=== PATIENT | male | born 1945 | race Caucasian/White ===

== ENCOUNTER 2018-02-05 15:05 | Inpatient (IN) | payer MEDICARE, OTHER, SELFPAY ==
[2018-02-05] VITALS (16 sets, daily range): BP systolic 90–150; BP diastolic 39–108; PULSE 64–143; RESP 12–23; TEMP 36.3–36.9; O2SAT 94–100; BMI 41.9; BMI 43.1
[2018-02-05] MEDS: SODIUM CHLORIDE 0.9% 1,000 ML 1000 ML IV (15:36)
--- NOTE | 2018-02-05 15:37 | DI.RAD.S_ITS ---
PROCEDURE: XR CHEST 1V INDICATIONS: chest pain TECHNIQUE: One view of the chest was acquired. COMPARISON: None. FINDINGS: Surgical changes and devices: None. Lungs and pleura: No pleural effusions or pneumothorax. Lungs are clear. Mediastinum: Mediastinal contours appear normal. Heart size is normal. Bones and chest wall: No suspicious bony lesions. Overlying soft tissues appear unremarkable. IMPRESSION: No acute cardiopulmonary disease. Dictated by: Sammie Coronado M.D. on 02/05/2018 at 15:56 Approved by: Sammie Coronado M.D. on 02/05/2018 at 15:56
[2018-02-05 15:51] LABS: Add Manual Diff / Slide Review NO; Basophils Percent Auto 0.8 % (0-2); Eosinophils Percent Auto 2.7 % (2-4); Hematocrit 45.7 % (41-53); Hemoglobin 15.4 g/dL (13.5-17.5); INR 1.1 (0.9-1.3); Lymphocytes Percent Auto 22.8 % (25-40); Mean Corpuscular HGB Conc 33.7 % (30-36); Mean Corpuscular Hemoglobin 32.3 PG (26-34); Mean Corpuscular Volume 95.9 fL (80-100); Monocytes Percent Auto 9.6 % (3-14); Neutrophils Absolute Auto 5600 /uL (3000-5900); Neutrophils Percent Auto 64.1 % (50-75); Platelet Count 189 X10^3/uL (150-400); Red Blood Cell Count 4.77 X10^6/uL (4.5-5.9); Red Cell Distribution Width 15.2 % (11.6-14.8); White Blood Cell Count 8.8 X10^3/uL (4.5-11.0)
[2018-02-05 15:53] LABS: PTT Partial Thromboplastin Tim 61 SECONDS (26.4-36.2)
[2018-02-05 15:55] LABS: Alanine Aminotransferase 47 IU/L (21-72); Albumin 4.2 g/dL (3.5-5.0); Albumin Globulin Ratio 1.3 (1.0-2.8); Alkaline Phosphatase 82 U/L (38-126); Aspartate Aminotransferase 48 IU/L (17-59); BUN Creatinine Ratio 16.7 (6-22); Bilirubin Total 0.9 mg/dL (0.2-1.3); Blood Urea Nitrogen 25 mg/dL (9-20); Calcium 9.5 mg/dL (8.4-10.2); Carbon Dioxide 24 mmol/L (22-32); Chloride 105 mmol/L (98-107); Creatine Kinase 222 U/L (55-170); Estimated Glomerular Filt Rate 45.6 mL/min (>60); Globulin 3.2 g/dL (1.7-4.1); Glucose 95 mg/dL (80-110); HEMOLYSIS 24 (0-50); Lipase 89 U/L (23-300); Potassium 4.8 mmol/L (3.4-5.1); Sodium 140 mmol/L (137-145); Total Protein 7.4 g/dL (6.3-8.2)
[2018-02-05 16:06] LABS: Troponin I 0.077 ng/mL (0.01-0.034)
[2018-02-05 16:10] LABS: CKMB % Relative Index 3.2 % (1.5-5.0)
[2018-02-05 18:07] LABS: Magnesium 2.1 mg/dL (1.6-2.3)
[2018-02-05] MEDS: dilTIAZem 25 MG/5 ML SDV 20 MG IV (18:10)
--- NOTE | 2018-02-05 18:11 | ED.DIZZY ---
HPI - Dizziness General Chief Complaint: Dizziness Stated Complaint: LIGHT HEADED LOW BLOOD PRESSURE History of Present Illness HPI Narrative: HPI 73-year-old male presents for evaluation of intermittent dizziness, hypertension, and racing heart that had a sudden onset this morning during practice. Patient awoke in his normal state of health, during breakfast he suddenly felt dizzy, patient no further symptoms, checked his blood pressure, found himself to be hypotensive with a racing heart. Symptoms persisted throughout the day. Patient denies similar prior episodes, note that he awoke in his usual state of health this morning. * Medications: denies recent medication changes. * Caffeine: denies any change in baseline caffeine use. * Alcohol: denies preceding significant alcohol use. * Drugs: denies stimulant use. M/S/F/SocHx notable for: please see HPI; remainder reviewed with patient and in chart. ROS: Negative constitutional, eye, cardiovascular, pulmonary, GI, , MSK, skin, neurologic, psychiatric, endocrine unless noted in the HPI. Exam Gen: Pleasant, non-toxic appearing, resting comfortably. HEENT: NC, AT, PEERL, EOMI. Resp: Clear to auscultation bilaterally, normal work of breathing, no accessory muscle usage. Card: tachycardic and regular rate with no murmurs, rubs, or gallops, extremities warm and well perfused. GI: Non-tender to palpation throughout all quadrants, no focal tenderness at McBurney's point, negative Crouch's sign, non-distended, no rebound or guarding. : No suprapubic tenderness to palpation.No CVA tenderness to percussion bilaterally.Deferred MSK: No visible deformities, strength and tone without visually appreciable deficit. Skin: Normal color with no visible lesions. Neuro: AO x 3, no facial asymmetry, vision and hearing WNL. Psych: Mood and affect appropriate. Labs / Imaging: EKG: atrial flutter with a ventricular rate of 143 bpm, no new ST segment changes, new LBBB, or T-wave changes that would suggest acute ischemia. CXR: No acute cardiopulmonary disease process. WBC 8.8, Hb 15.4, PT/INR 1.1, PTT 61, Na 140, K 4.8, troponin (3:20 PM) 0.77, troponin (5:43 PM) pending, magnesium pending, TSH pending, free T4 pending. EKG (repeat following 1 L NS): atrial fibrillation with ventricular rate of 119 bpm, nonspecific ST segment changes. MDM Previous chart, nursing note, labs, imaging, and vitals reviewed. A: 73-year-old male presents for evaluation of intermittent dizziness, hypertension, and racing heart that had a sudden onset this morning during practice. Evaluation: patient with new onset atrial flutter, change to you atrial fibrillation with IV hydration, electrolytes WNL, although magnesium and thyroid studies are pending at time of patient care transfer to the oncoming overnight provider. At the time of patient care transfer the patient is been given 20 mg diltiazem. Repeat troponin pending. Etiology uncertain, patient has risk factors of obesity, possible YAIMA. Patient without anemia, clear evidence of infection, signs of myocarditis, pericarditis, or heart failure, no evidence of recent drug use that would trigger today's event, alternatively the patient's precipitating event may be idiopathic. Anticoagulation deferred to the overnight provider pending repeat evaluation after possible chemical and/or electric cardioversion. Impression: atrial flutter, atrial fibrillation Related Data Home Medications Medication Instructions Recorded Confirmed aspirin [Aspir-81] 81 mg PO DAILY 02/05/18 02/05/18 atorvastatin 10 mg PO DAILY 02/05/18 02/05/18 bupropion HCl 150 mg PO DAILY 02/05/18 02/05/18 meloxicam 15 mg PO DAILY PRN 02/05/18 02/05/18 methotrexate sodium 12.5 mg PO WEEKLY 02/05/18 02/05/18 metoprolol succinate 50 mg PO DAILY 02/05/18 02/05/18 scopolamine base [Transderm-Scop] 1 patch TOPICAL Q3-4D 02/05/18 02/05/18 Allergies Allergy/AdvReac Type Severity Reaction Status Date / Time No Known Drug Allergies Allergy Verified 02/05/18 15:30 PFSH Social History Smoking Status: Never smoker Exam Initial Vital Signs Initial Vital Signs: Vital Signs Temperature 97.5 F L 02/05/18 15:08 Pulse Rate 143 H 02/05/18 15:08 Respiratory Rate 16 02/05/18 15:08 Blood Pressure 94/65 02/05/18 15:08 Pulse Oximetry 99 02/05/18 15:08 Course Orders Ordered: ED Orders 02/05/18 15:20 Complete Blood Count AUTO DIFF Stat Comprehensive Metabolic Panel Stat Free T4 Free Thyroxine Stat Lipase Stat Magnesium Stat Partial Thromboplastin Time Stat Prothrombin Time INR Stat Thyroid Stimulating Hormone Stat Troponin & CK Cardiac Panel Stat 02/05/18 15:37 XR chest 1V Stat EKG-12 Lead Stat 02/05/18 16:35 EKG-12 Lead Stat 02/05/18 17:43 Troponin I Stat Discontinued Medications Diltiazem HCl (Cardizem) 20 mg IV NOW ONE Stop: 02/05/18 17:41 Last Admin: 02/05/18 18:10 Dose: 20 mg Sodium Chloride (Normal Saline 0.9%) 1,000 mls @ 1,000 mls/hr IV BOLUS ONE Stop: 02/05/18 16:30 Last Infusion: 02/05/18 16:21 Dose: 0 mls/hr Admin: 02/05/18 15:36 Dose: 1,000 mls/hr Vital Signs - 8 hr 02/05/18 15:08 02/05/18 15:18 02/05/18 15:27 Temperature 97.5 F L Pulse Rate 143 H 142 H 140 H Respiratory Rate 16 16 18 Blood Pressure 94/65 Blood Pressure [Left Arm] 125/78 H 115/72 Pulse Oximetry 99 98 100 02/05/18 15:45 02/05/18 16:00 02/05/18 16:19 Temperature Pulse Rate 122 H 115 H 119 H Respiratory Rate 18 14 14 Blood Pressure Blood Pressure [Left Arm] 102/65 109/82 H 90/63 Pulse Oximetry 95 94 95 02/05/18 16:41 02/05/18 18:00 Temperature Pulse Rate 111 H 90 Respiratory Rate 14 12 Blood Pressure Blood Pressure [Left Arm] 111/84 H 128/79 H Pulse Oximetry 95 100 MDM - Dizziness Lab Data Result diagrams: 02/05/18 15:20 02/05/18 15:20 Lab Results 02/05/18 02/05/18 02/05/18 Range/Units 15:20 15:20 15:20 WBC 8.8 (4.5-11.0) X10^3/uL RBC 4.77 (4.5-5.9) X10^6/uL Hgb 15.4 (13.5-17.5) g/dL Hct 45.7 (41-53) % MCV 95.9 (80-100) fL MCH 32.3 (26-34) PG MCHC 33.7 (30-36) % RDW 15.2 H (11.6-14.8) % Plt Count 189 (150-400) X10^3/uL Neut % (Auto) 64.1 (50-75) % Lymph % (Auto) 22.8 L (25-40) % [place] % (Auto) 9.6 (3-14) % Eos % (Auto) 2.7 (2-4) % Baso % (Auto) 0.8 (0-2) % Neut # (Auto) 5600 (5147-3531) /uL PT 12.0 (10.1-12.7) SECONDS INR 1.1 (0.9-1.3) APTT 61 H (26.4-36.2) SECONDS Sodium 140 (137-145) mmol/L Potassium 4.8 (3.4-5.1) mmol/L Chloride 105 (98-107) mmol/L Carbon Dioxide 24 (22-32) mmol/L BUN 25 H (9-20) mg/dL Creatinine 1.50 H (0.66-1.25) mg/dL Estimated GFR 45.6 L (>60) mL/min BUN/Creatinine Ratio 16.7 (6-22) Glucose 95 (80-110) mg/dL Calcium 9.5 (8.4-10.2) mg/dL Total Bilirubin 0.9 (0.2-1.3) mg/dL AST 48 (17-59) IU/L ALT 47 (21-72) IU/L Alkaline Phosphatase 82 (38-126) U/L Total Creatine Kinase 222 H (55-170) U/L CK-MB (CK-2) 7.20 H (<2.37) ng/mL CK-MB (CK-2) Rel Index 3.2 (1.5-5.0) % Troponin I 0.077 H (0.01-0.034) ng/mL Total Protein 7.4 (6.3-8.2) g/dL Albumin 4.2 (3.5-5.0) g/dL Globulin 3.2 (1.7-4.1) g/dL Albumin/Globulin Ratio 1.3 (1.0-2.8) Lipase 89 (23-300) U/L Discharge Plan Departure Prescriptions: No Action metoprolol succinate 50 mg tablet extended release 24 hr 50 mg PO DAILY RF: 0 meloxicam 15 mg tablet 15 mg PO DAILY PRN (Reason: Pain (Scale Score 4-6)) RF: 0 methotrexate sodium 2.5 mg tablet 12.5 mg PO WEEKLY RF: 0 scopolamine base [Transderm-Scop] 1 mg over 3 days patch 3 day 1 patch Topical Q3-4D RF: 0 bupropion HCl 150 mg tablet extended release 24 hr 150 mg PO DAILY RF: 0 atorvastatin 10 mg tablet 10 mg PO DAILY RF: 0 aspirin [Aspir-81] 81 mg Tablet,Delayed Release (Dr/Ec) 81 mg PO DAILY RF: 0
[2018-02-05 18:14] LABS: Troponin I 0.094 ng/mL (0.01-0.034)
[2018-02-05 18:25] LABS: Free T4, Direct Thyroxine 0.96 ng/dL (0.78-2.19)
--- NOTE | 2018-02-05 18:26 | PC.NURSE ---
Cardizem given to pt. HR remains labile 99-140's. Lowest HR immeadiately s/p cardizem 83/46, pt asymptomatic. Talking with and reading on ipad.
[2018-02-05 18:38] LABS: Thyroid Stimulating Hormone 1.34 uIU/mL (0.47-4.68)
--- NOTE | 2018-02-05 20:06 | PC.NURSE ---
Continues to have labile HR and increases with movement. Asymptomatic at this time. Denies CP or SOB. Continues to sit up in bed on ipad. Advised of admission and agreeable. Pt had short conversion into NSR for about 2 min after ambulating. RT called for EKG and pt then converted back into Afib wit RVR. Dr Eubanks aware and witnessed.
[2018-02-05] MEDS: ASPIRIN 81 MG TAB 324 MG PO (20:49)
[2018-02-05] MEDS: METOPROLOL 12.5 MG TABLET PO (22:23)
[2018-02-05] MEDS: RIVAROXABAN 10 MG TABLET 20 MG PO (22:23)
[2018-02-06] VITALS (8 sets, daily range): BP systolic 95–119; BP diastolic 53–73; PULSE 50–128; RESP 16–20; TEMP 36.3–36.7; O2SAT 94–100
--- NOTE | 2018-02-06 | DI.ECHO.S_ITS ---
[place] [facility]---------+ [facility] +---------+ : : [address] : : : : [id number] : : : : Phone: [phone]+ Echocardiogram Report + + :Name: MATHEUS AREVALO Study Date: 02/06/2018 Height: 71 in : :[facility] Weight: 222 lb : : Gender: Male BSA: 2.2 m2 : :: 1945 Age: 73 yrs BP: 109/66 mmHg: :Reason For Study: AFIB : : Performed By: Gmema Singleton : :Referring: UNSPECIFIED : + + Interpretation Summary The left ventricle is normal in size. The ejection fraction is estimated to be 60-65%. There is a significant dyssynchronous contraction pattern, consistent with a conduction abnormality. The right ventricle is normal size. Right ventricular systolic function is mildly reduced. No significant valvular pathology seen. The ascending aorta is moderately enlarged. The aortic arch is moderately enlarged. Procedure: A two-dimensional transthoracic echocardiogram with color flow and Doppler was performed. The study quality was technically adequate. There is no prior echocardiogram noted for this patient. The patient was in atrial fibrillation with heart rates between 74-138 bpm during the exam. The patient was in atrial flutter during the exam. Left Ventricle: There is mild concentric left ventricular hypertrophy. The left ventricle is normal in size. Proximal septal thickening is noted. There is no echo evidence for significant left ventricular outflow tract obstruction. The ejection fraction is estimated to be 60-65%. There is a significant dyssynchronous contraction pattern, consistent with a conduction abnormality. Diastolic function could not be accurately assessed due to atrial fibrillation. Right Ventricle: The right ventricle is normal size. Right ventricular systolic function is mildly reduced. Atria: The left atrium is moderately dilated. Right atrial size is normal. There is no Doppler evidence for an interatrial shunt. Mitral Valve: There is mild mitral annular calcification. There is trace mitral regurgitation. Aortic Valve: The aortic valve is trileaflet. The aortic valve opens well. There is mild aortic valve sclerosis. There is no aortic valve stenosis. There is trace aortic regurgitation. Tricuspid Valve: The tricuspid valve is normal in structure and function. There is a trace or physiologic amount of tricuspid regurgitation. Pulmonary artery pressures cannot be estimated because of the lack of a measurable TR jet velocity. Pulmonic Valve: The pulmonic valve is normal in structure and function. There is a trace or physiologic amount of pulmonic regurgitation. Great Vessels: The aortic root is normal size. There is aortic root sclerosis/calcification. The ascending aorta is moderately enlarged. The aortic arch is moderately enlarged. The pulmonary artery is normal size. The IVC is of normal diameter and collapses greater than 50% with a sniff. This suggests a low right atrial pressure of 3 mm Hg. Pericardium/ Pleura There is no pericardial effusion. There is an anterior echo-free space consistent with a fat pad. There is no pleural effusion. MMode/2D Measurements & Calculations LVIDd: 4.9 cm LVOT diam: 2.3 cm LVIDs: 2.5 cm Ao root diam: 3.8 cm FS: 50.2 % asc Aorta Diam: 4.5 cm IVSd: 1.1 cm Ao Arch Diam (Prox Trans): 4.1 cm LVPWd: 1.2 cm LV holland. diameter/BSA (cm/m^2): 2.2 LV sys. diameter/BSA (cm/m^2): 1.1 LA A2 area: 28.0 cm2 RA long axis: 6.2 cm LA A4 area: 24.9 cm2 RA area: 20.3 cm2 LA length (vol): 6.5 cm RA vol: 56.6 ml LA vol: 91.7 ml RA : 25.7 ml/m2 LA vol index: 41.6 ml/m2 IVC diam: 1.9 cm RVD1 (basal): 2.9 cm TAPSE: 1.3 cm Doppler Measurements & Calculations Ao V2 max: 125.8 cm/sec LVOT Max Hari: 95.8 cm/sec Ao V2 mean: 84.3 cm/sec LV V1 max P.7 mmHg Ao max P.3 mmHg LV V1 VTI: 19.7 cm Ao mean P.2 mmHg LUIS(I,D): 3.6 cm2 Ao V2 VTI: 22.4 cm LUIS(V,D): 3.1 cm2 sev ratio: 0.88 LUIS indexed to BSA (cm^2/m^2): 1.6 Reading Physician:KAR
[2018-02-06 06:07] LABS: Add Manual Diff / Slide Review NO; Basophils Percent Auto 0.7 % (0-2); Eosinophils Percent Auto 3.7 % (2-4); Hematocrit 41.2 % (41-53); Hemoglobin 13.7 g/dL (13.5-17.5); Lymphocytes Percent Auto 24.6 % (25-40); Mean Corpuscular HGB Conc 33.3 % (30-36); Mean Corpuscular Hemoglobin 32.1 PG (26-34); Mean Corpuscular Volume 96.5 fL (80-100); Monocytes Percent Auto 11.1 % (3-14); Neutrophils Absolute Auto 4800 /uL (3000-5900); Neutrophils Percent Auto 59.9 % (50-75); Platelet Count 160 X10^3/uL (150-400); Red Blood Cell Count 4.27 X10^6/uL (4.5-5.9); Red Cell Distribution Width 15.6 % (11.6-14.8); White Blood Cell Count 8.1 X10^3/uL (4.5-11.0)
[2018-02-06 06:18] LABS: Alanine Aminotransferase 39 IU/L (21-72); Albumin 3.4 g/dL (3.5-5.0); Albumin Globulin Ratio 1.3 (1.0-2.8); Alkaline Phosphatase 63 U/L (38-126); Aspartate Aminotransferase 33 IU/L (17-59); BUN Creatinine Ratio 21.7 (6-22); Bilirubin Total 0.7 mg/dL (0.2-1.3); Blood Urea Nitrogen 26 mg/dL (9-20); Calcium 8.8 mg/dL (8.4-10.2); Carbon Dioxide 27 mmol/L (22-32); Chloride 104 mmol/L (98-107); Globulin 2.7 g/dL (1.7-4.1); Glucose 89 mg/dL (80-110); HEMOLYSIS < 15 (0-50); Potassium 3.9 mmol/L (3.4-5.1); Sodium 138 mmol/L (137-145); Total Protein 6.1 g/dL (6.3-8.2)
--- NOTE | 2018-02-06 06:54 | PC.NURSE ---
Patient has had AFIB RVR heart rates non sustained between 92-153. Patient soundly sleeping during checks.
[2018-02-06 07:24] LABS: Thyroid Stimulating Hormone 2.01 uIU/mL (0.47-4.68)
[2018-02-06] MEDS: SODIUM CHLORIDE 0.9% 1,000 ML 500 ML IV ×2 (08:36→17:06)
[2018-02-06] MEDS: DIGOXIN 500 MCG/2 ML AMPUL IV (08:42)
--- NOTE | 2018-02-06 12:21 | CM.DANOTE ---
Discharge Planning/Care Management CM Discharge Assessment Start: 02/06/18 12:20 Freq: Status: Active Protocol: Document 02/06/18 12:20 (Rec: 02/06/18 12:20 [id number]) Discharge Planning Assessment History Provided By Patient Medical Record Prior Living Arrangements House Household Members spouse Type of transporation used prior to Drives own vehicle admit Independent with ADL's Yes Is patient alert and oriented? Yes Discharge Plan Home Review Status In Process Next Review Type Discharge Review Plan: Discharge home when medically stable.
[2018-02-06] MEDS: DIGOXIN 500 MCG/2 ML AMPUL 250 MCG IV (13:28)
--- NOTE | 2018-02-06 15:46 | PC.NURSE ---
day shift pt states he is slightly lightheaded and dizzy, BP was low this AM, MD aware, metoprolol held. Start pt on digoxin IV per orders. baseline HR decreased however still up to 140-160's at times. second dose of digoxin given, baseline HR again decreased for a time but back up to 110-120's with periods of 140-160's still as well. Pt does not notice HR increase but does notice dizziness. pt remains on tele. hourly rounding provided, call light within reach.
--- NOTE | 2018-02-06 16:54 | PM.HP.1 ---
History of Present Illness Chief complaint: LIGHT HEADED LOW BLOOD PRESSURE Patient History Medical History HTN (hypertension) (Acute) Hyperlipidemia (Acute) YAIMA on CPAP (Acute) Psoriasis (Acute) Psoriatic arthritis (Acute) Surgical History History of total left knee replacement (TKR) (Acute) Family & Social History Social History: HE HAS BEEN FOR 52 YEARS. 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 household members spouse Prior Living Arrangements House Safety & Behavioral: Feels Safe in Current Yes Environment Been Physically Hurt or No Threatened By a Person Suicidal Ideation Description None Suicide Plan Description No Plan Tobacco & Substance use: HE IS A NONSMOKER HE WILL HAVE EITHER A GLASS OF WINE SHOT OF WHISKEY MOST NIGHTS OF WEEK Smoking Status Never smoker alcohol intake current alcohol intake frequency 3 or more drinks per day Substance Use Type does not use Meds Home Medications Medication Instructions Recorded Confirmed Type atorvastatin 10 mg PO DAILY 02/05/18 02/05/18 History bupropion HCl 150 mg PO DAILY 02/05/18 02/05/18 History diethylpropion 25 mg PO TID 02/05/18 02/05/18 History fluoxetine 20 mg PO DAILY 02/05/18 02/05/18 History gabapentin 300 mg PO PRN PRN 02/05/18 02/05/18 History meloxicam 15 mg PO DAILY PRN 02/05/18 02/05/18 History methotrexate sodium 12.5 mg PO WEEKLY 02/05/18 02/05/18 History metoprolol succinate 50 mg PO DAILY 02/05/18 02/05/18 History scopolamine base [Transderm-Scop] 1 patch TOPICAL Q3-4D 02/05/18 02/05/18 History Allergies Allergy/AdvReac Type Severity Reaction Status Date / Time No Known Drug Allergies Allergy Verified 02/05/18 15:30 Review of Systems Review of Systems All systems reviewed & are unremarkable except as noted in HPI and below Exam Vital Signs (past 8 hours): - 02/06/18 11:25 02/06/18 15:47 Temperature 98.0 F 97.8 F Pulse Rate 90 82 Respiratory Rate 16 20 Blood Pressure 119/67 109/53 L Pulse Oximetry 100 98 Oxygen Delivery Method Room Air Narrative Exam Narrative: GENERAL NAD SITTING ON SIDE OF BED HEENT HEENT NORMOCEPHALIC ATRAUMATIC EXTRAOCULAR MOVEMENT WAS INTACT PUPILS EQUAL ROUND REACTIVE FUNDI NOT VIEW SCLERA NONICTERIC OROPHARYNX CLEAR NECK SUPPLE WITHOUT THYROMEGALY BRUITS OR JUGULAR VENOUS DISTENTION LUNGS CLEAR TO AUSCULTATION HEART IS IRREGULARLY IRREGULAR RHYTHM S1-S2 WAS NORMAL THERE ARE NO OCPS RUBS MURMURS GALLOPS PRESENT ABDOMEN: BENIGN BOWEL SOUNDS ACTIVE EXTREMITIES NO CLUBBING EDEMA CYANOSIS NEUROLOGIC GROSSLY PHYSIOLOGIC PSYCHIATRIC MOOD AND AFFECT WERE NORMAL Objective Labs Result Diagrams: 02/06/18 05:42 02/06/18 05:42 Labs: Laboratory Results - last 24 hr 02/05/18 02/05/18 02/05/18 15:20 15:20 17:43 WBC RBC Hgb Hct MCV MCH MCHC RDW Plt Count Neut % (Auto) Lymph % (Auto) [place] % (Auto) Eos % (Auto) Baso % (Auto) Neut # (Auto) Sodium Potassium Chloride Carbon Dioxide BUN Creatinine Estimated GFR BUN/Creatinine Ratio Glucose Calcium Magnesium 2.1 Total Bilirubin AST ALT Alkaline Phosphatase Troponin I 0.094 H Total Protein Albumin Globulin Albumin/Globulin Ratio TSH 1.34 Free T4 0.96 02/06/18 02/06/18 02/06/18 05:42 05:42 05:42 WBC 8.1 RBC 4.27 L Hgb 13.7 Hct 41.2 MCV 96.5 MCH 32.1 MCHC 33.3 RDW 15.6 H Plt Count 160 Neut % (Auto) 59.9 Lymph % (Auto) 24.6 L [place] % (Auto) 11.1 Eos % (Auto) 3.7 Baso % (Auto) 0.7 Neut # (Auto) 4800 Sodium 138 Potassium 3.9 Chloride 104 Carbon Dioxide 27 BUN 26 H Creatinine 1.20 Estimated GFR 59.0 L BUN/Creatinine Ratio 21.7 Glucose 89 Calcium 8.8 Magnesium Total Bilirubin 0.7 AST 33 ALT 39 Alkaline Phosphatase 63 Troponin I Total Protein 6.1 L Albumin 3.4 L Globulin 2.7 Albumin/Globulin Ratio 1.3 TSH 2.01 D Free T4 Assessment & Plan Plan: Assessment/Plan Narrative: 1. ATRIAL FIBRILLATION WITH RAPID VENTRICULAR RESPONSE. THE PATIENT WAS GIVEN A DOSE OF DILTIAZEM IV OF WITH IMPROVEMENT OF THE RATE. HE WAS THEN PLACED ON LOPRESSOR 12.5 MG P.O. Q.8 HOURS. THIS MORNING HIS BLOOD PRESSURE HAD DROPPED TO THE LOW 90S. A RESULT HIS LOPRESSOR HAS BEEN ADJUSTED TO B.I.D.. ALSO HE IS GIVEN A FLUID BOLUS TO HELP HIS BLOOD PRESSURE. THE PATIENT HAD BEEN ON TOPROL-XL AN OUTPATIENT AND HIS BLOOD PRESSURES HAD BE MAINTAINED AT AROUND 160 SYSTOLIC. A RESULT OF THE HIS LOBE PRESSURE ON THE INITIAL SCHEDULED DOSES OF LOPRESSOR HE WILL BE LOADED WITH DIGOXIN TOTAL OF 1.25 MG. WILL CHECK DIGOXIN LEVEL IN A.M. CARDIZEM HAS NOT BEEN GIVEN BECAUSE OF IT IS WITH HIS BLOOD PRESSURE AND ALSO WILL INCREASE THE POTENTIAL BLEEDING PROBLEMS WITH HIS XARELTO. 2. HYPOTENSION THIS SHOULD IMPROVE WITH IV FLUID RESUSCITATION AND ALTERING THE DOSE OF HIS LOPRESSOR. 3. OBSTRUCTIVE SLEEP APNEA WILL CONTINUE THE PATIENT ON HIS OUTPATIENT CPAP 4. ANTICOAGULATION WITH XARELTO PATIENT IS BEING MAINTAINED ON HIS XARELTO BECAUSE OF HIS ATRIAL FIBRILLATION THE PATIENT IS CHADS-VAS SCORE IS 4 AND SUCH ANTICOAGULATION IS RECOMMENDED DISPOSITION INPATIENT HOSPITAL STAY IS STILL REQUIRED THE PATIENT HAS RAPID VENTRICULAR RESPONSE THAT IS NOT CONTROLLED AT PRESENT AND HAS BEEN ONGOING FOR THE PAST 12-24 HOURS. THEREFORE HE IS CONSIDERED INPATIENT. HOPEFULLY HE WILL BE ABLE TO BE DISCHARGED IN THE NEXT 1-2 DAYS Quality VTE Deep Vein Thrombosis/Pulmonary Embolism Present on Admission: No
[2018-02-06] MEDS: RIVAROXABAN 10 MG TABLET 20 MG PO (17:06)
[2018-02-06] MEDS: ATORVASTATIN 20 MG TABLET 40 MG PO (21:49)
[2018-02-07] VITALS: O2SAT 99
[2018-02-07 00:40] VITALS: BP 121/71; PULSE 65; RESP 18; TEMP 36.3
[2018-02-07 04:00] VITALS: BP 131/72; PULSE 64; RESP 18; TEMP 36.5; O2SAT 99
[2018-02-07 06:26] LABS: Cholesterol 122 mg/dL (140-199); HDL Cholesterol 57 mg/dL (40-60); LDL Cholesterol Calculated 51 mg/dL (<100); Triglycerides 69 mg/dL (35-150)
[2018-02-07 06:47] LABS: Digoxin 0.9 ng/mL (0.8-2.0)
[2018-02-07 07:45] VITALS: BP 144/77; PULSE 69; RESP 16; TEMP 36.6; O2SAT 98
[2018-02-07 07:52] VITALS: O2SAT 96
[2018-02-07] MEDS: ASPIRIN EC 81 MG TABLET PO (09:30)
[2018-02-07] MEDS: DIGOXIN 0.25 MG TABLET PO (09:30)
[2018-02-07] MEDS: METOPROLOL ER 50 MG TABLET PO (09:50)
--- NOTE | 2018-02-07 11:07 | PC.NURSE ---
Day shift: Paperwork signed and Pt has all personal belongings. Pt ambulated to his own vehicle. He has his items from the [employer]. Accompanied by MAGGIE Uribe to his vehicle. Left at 1115.
--- NOTE | 2018-02-10 18:39 | P.DS_ITS ---
History of Present Illness Date Patient Seen: 02/07/18 Chief complaint: LIGHT HEADED LOW BLOOD PRESSURE Narrative: THE PATIENT IS A 73-YEAR-OLD MALE IN [employer] WHO PRESENTED ON ADMISSION WITH DIZZINESS. THE PATIENT STATES THAT HIS PROBLEMS BEGAN ON THE DAY OF ADMISSION WHEN WHILE SITTING DOWN TALKING TO HIS HE SUDDENLY BECAME DIZZY. HE DENIES CHEST PAIN PALPITATIONS SHORTNESS OF BREATH PRESYNCOPE SYNCOPE NAUSEA VOMITING. A RESULT HE PRESENTED TO THE ED WHERE HE WAS FOUND TO BE IN ATRIAL FIBRILLATION WITH A RAPID VENTRICULAR RESPONSE OF 143. HE WAS GIVEN 20 MG OF DILTIAZEM IV BOLUS. HIS BLOOD PRESSURE BECAME LOW WITH SYSTOLIC 90 40 WAS GIVEN A BOLUS OF 1000 CC OVER AN HOUR. HIS BLOOD PRESSURE IMPROVED TO 128/79 AND HIS HEART RATE ULTIMATELY DECREASED TO 90 BEATS PER MINUTE. ROOM AIR O2 SAT WAS 95% AND HE WAS ALSO AFEBRILE. CHEST X-RAY DID NOT REVEAL ANY ACUTE INFILTRATE. HIS TSH WITHIN NORMAL LIMITS THE PATIENT WAS THEREFORE ADMITTED FOR FURTHER MANAGEMENT OF HIS ATRIAL FIBRILLATION WITH RAPID VENTRICULAR RESPONSE Discharge Providers Date of admission: 02/05/18 20:12 Discharge provider: Sheri Oates MD Summary Discharge Diagnosis: Atrial Fibrillation with a Rapid Ventricular Response Rate Hypertension Hyperlipidemia Psoriasis\ Psoriatic Arthritis Hospital Course: Patient admitted to the hospital for atrial fibrillation witha rapid ventricular response rate. The following day his rate was well controlled. the patient was discharged home on xeralto and metroprolol for rate control. He will follow up with his PCP for further evaluation . Status at Discharge Cognitive/behavioral status at discharge: at baseline Functional status at discharge: independent ambulation Overall status at discharge: patient is back to baseline Time Spent with Patient Less than 30 minutes Exam Vital Signs (past 8 hours): Oxygen Delivery Method Room Air Narrative Exam Narrative: Lungs: clear to auscultation CV: RRR nl Sl S2 Abd: soft/ non tender nondistended Ext: no edema Objective Labs Result Diagrams: 02/06/18 05:42 02/06/18 05:42 Discharge Plan Discharge Plan Patient Disposition: Home, Self-Care Discharge comment: home after one hour if no longer dizzy and heart rate is 60 or above Provider Discharge Instructions Activity: as tolerated Discharge Data Attending Provider: Silver [place] Admit Date/Time: 02/05/18 20:12 Discharges patient from system. Discharge Date/Time: 02/07/18 11:16 Quality VTE Deep Vein Thrombosis/Pulmonary Embolism Present on Admission: No
== END 2018-02-07 11:16 | disposition home or self-care (01) | DRG 309 ==
LOC: ED 19:43 → AC 20:21
PROVIDERS: Admitting Provider Internal Medicine; Emergency Provider Emergency Medicine; Visit Provider Internal Medicine
DX: I48.91 Unspecified atrial fibrillation (principal); Z68.41 Body mass index [BMI] 40.0-44.9, adult; Z79.01 Long term (current) use of anticoagulants; I95.9 Hypotension, unspecified; G47.33 Obstructive sleep apnea (adult) (pediatric); E87.5 Hyperkalemia; L40.50 Arthropathic psoriasis, unspecified; E66.9 Obesity, unspecified; I10 Essential (primary) hypertension; E78.5 Hyperlipidemia, unspecified
CPT/HCPCS: 36415; 36591; 71045; 80053; 80061; 80162; 82550; 82553; 83690; 83735; 84439; 84443; 84484; 85025; 85610; 85730; 93005; 93010; 93306; 96361; 96374; 99285; J1160

== ENCOUNTER → 2018-03-08 08:53 | Outpatient (CLI) | payer MEDICARE, OTHER, SELFPAY ==
[2018-02-05 20:44] VITALS: BMI 43.1
--- NOTE | 2018-03-08 | DI.CT.S_ITS ---
PROCEDURE: CT ABDOMEN PELVIS W CON INDICATIONS: RETROPERITENAL MASS TECHNIQUE: After the administration of oral and intravenous contrast, 5 mm thick sections acquired from the diaphragms to the symphysis. 5 mm thick coronal and sagittal reformats were performed. For radiation dose reduction, the following was used: automated exposure control, adjustment of mA and/or kV according to patient size. COMPARISON: Outside Facility, , CT ABDOMEN/PELVIS WITHOUT CONTRAST, 02/23/2018, 11:40. FINDINGS: Image quality: Excellent. ABDOMEN: Lung bases: Lung bases are clear. Heart size is normal. Solid organs: Liver is normal in size and enhancement. Hepatic steatosis is present. Gallbladder is unremarkable. Biliary system is non-dilated. Pancreas enhances normally. Spleen is normal in size and enhancement. Kidneys are normal in size and enhancement, without hydronephrosis. Right ureterovesicular stent is present, new compared to prior exam. Previous hydronephrosis has resolved. Peritoneum and bowel: Stomach, small bowel, and colon loops are normal in caliber and wall thickness. No free fluid or air. Nodes and vessels: No retroperitoneal or mesenteric adenopathy. Aorta and inferior vena cava are normal in caliber. Miscellaneous: There is an 8.0 cm AP by 5.4 cm transverse by 8.4 cm craniocaudal aortocaval soft tissue mass along the medial aspect of the right adrenal gland. It is causing mass effect and effacement of the inferior vena cava. It does not demonstrate clear infiltration or occlusion of the inferior vena cava. It is unchanged compared to prior exam. Small areas of calcification are present. There is no appreciable enhancement. PELVIS: Genitourinary: Bladder wall thickness is normal. Prostate gland is enlarged. Miscellaneous: No inguinal hernias or adenopathy. Bones: No suspicious bony lesions. No vertebral body compression fractures. IMPRESSION: 1. Stable appearance of nonenhancing aortocaval mass as previously identified. It is noted to have mass effect along the medial aspect of the right adrenal gland as well as the inferior vena cava. Overall appearance remains most suggestive of malignancy including lymphoma or potentially sarcoma. Further evaluation with PET scan or biopsy is recommended. Dictated by: Tereza Bangura M.D. on 03/08/2018 at 17:17 Approved by: Tereza Bangura M.D. on 03/08/2018 at 17:23
[2018-03-08 10:57] LABS: Add Manual Diff / Slide Review NO; Basophils Percent Auto 0.8 % (0-2); Eosinophils Percent Auto 3.4 % (2-4); Hematocrit 43.1 % (41-53); Hemoglobin 14.4 g/dL (13.5-17.5); Lymphocytes Percent Auto 22.7 % (25-40); Mean Corpuscular HGB Conc 33.4 % (30-36); Mean Corpuscular Volume 95.9 fL (80-100); Monocytes Percent Auto 11.2 % (3-14); Neutrophils Absolute Auto 3700 /uL (3000-5900); Neutrophils Percent Auto 61.9 % (50-75); Platelet Count 220 X10^3/uL (150-400); Red Blood Cell Count 4.49 X10^6/uL (4.5-5.9); Red Cell Distribution Width 14.4 % (11.6-14.8)
== END ==
PROVIDERS: Visit Provider Internal Medicine
DX: K66.9 Disorder of peritoneum, unspecified (principal); I48.91 Unspecified atrial fibrillation; K76.0 Fatty (change of) liver, not elsewhere classified; E27.9 Disorder of adrenal gland, unspecified; I77.9 Disorder of arteries and arterioles, unspecified
CPT/HCPCS: 36415; 74177; 85025; Q9967

== ENCOUNTER → 2018-03-17 10:41 | Outpatient (CLI) | payer MEDICARE, OTHER, SELFPAY ==
[2018-02-05 20:44] VITALS: BMI 43.1
== END ==
PROVIDERS: Visit Provider Internal Medicine
DX: D62 Acute posthemorrhagic anemia (principal)
CPT/HCPCS: 36415; 85014

== ENCOUNTER → 2018-03-21 15:16 | Outpatient (CLI) | payer MEDICARE, OTHER, SELFPAY ==
[2018-02-05 20:44] VITALS: BMI 43.1
[2018-03-21 15:34] LABS: Hematocrit 35.5 % (41-53)
== END ==
PROVIDERS: Visit Provider Internal Medicine
DX: D62 Acute posthemorrhagic anemia (principal)
CPT/HCPCS: 36415; 85014

== ENCOUNTER → 2018-06-24 15:15 | Outpatient (CLI) | payer MEDICARE, OTHER, SELFPAY ==
[2018-02-05 20:44] VITALS: BMI 43.1
== END ==
PROVIDERS: PCP Internal Medicine; Visit Provider Internal Medicine
DX: I10 Essential (primary) hypertension (principal); R71.0 Precipitous drop in hematocrit

== ENCOUNTER → 2018-06-24 15:25 | Outpatient (CLI) | payer MEDICARE, OTHER, SELFPAY ==
[2018-02-05 20:44] VITALS: BMI 43.1
[2018-06-24 16:19] LABS: Add Manual Diff / Slide Review NO; Basophils Percent Auto 0.9 % (0-2); Eosinophils Percent Auto 4.3 % (2-4); Hematocrit 46.3 % (41-53); Hemoglobin 15.2 g/dL (13.5-17.5); Mean Corpuscular HGB Conc 32.8 % (30-36); Mean Corpuscular Hemoglobin 30.7 PG (26-34); Mean Corpuscular Volume 93.5 fL (80-100); Monocytes Percent Auto 8.8 % (3-14); Neutrophils Absolute Auto 4500 /uL (1500-7000); Platelet Count 210 X10^3/uL (150-400); Red Blood Cell Count 4.95 X10^6/uL (4.5-5.9); Red Cell Distribution Width 16.2 % (11.6-14.8); White Blood Cell Count 7.1 X10^3/uL (4.5-11.0)
[2018-06-24 17:10] LABS: BUN Creatinine Ratio 20.9 (6-22); Blood Urea Nitrogen 23 mg/dL (9-20); Calcium 9.8 mg/dL (8.4-10.2); Carbon Dioxide 26 mmol/L (22-32); Chloride 105 mmol/L (98-107); Estimated Glomerular Filt Rate > 60.0 mL/min (>60); Glucose 86 mg/dL (80-110); HEMOLYSIS 15 (0-50); Potassium 4.7 mmol/L (3.4-5.1); Sodium 142 mmol/L (137-145)
== END ==
PROVIDERS: PCP Internal Medicine; Visit Provider Internal Medicine
DX: I48.91 Unspecified atrial fibrillation (principal)
CPT/HCPCS: 36415; 80048; 85025

== ENCOUNTER → 2018-08-09 18:35 | Outpatient (CLI) | payer MEDICARE, OTHER, SELFPAY ==
[2018-02-05 20:44] VITALS: BMI 43.1
--- NOTE | 2018-08-09 18:39 | DI.MRI.S_ITS ---
PROCEDURE: MR KNEE RT WO CON INDICATIONS: UNILTERAL PRIMARY OSTEOARTHRITIS OF RIGHT KNEE TECHNIQUE: Noncontrast sagittal PD fast spin echo and T2 fast spin echo with fat saturation, sagittal 3-D FLASH with fat saturation; coronal T1 spin echo and PD fast spin echo with fat saturation, and axial PD fast spin echo with fat saturation through the knee. COMPARISON: None. FINDINGS: Image quality: Excellent. Menisci: There is degenerative signal throughout the medial meniscus with extension to the inferior articular surface in the body and posterior horn. In addition, there is a focal radial tear involving greater than 50% of the meniscal thickness in the posterior horn near the junction with the meniscal root ligament. Intrasubstance partial tearing extends into the meniscal root ligament without complete rupture. There is mild peripheral extrusion of the medial meniscus. The lateral meniscus also demonstrates extensive degenerative signal throughout with diffuse involvement in the anterior horn and body as well as the inferior articular surface in the posterior horn compatible with degenerative tearing. Cruciate ligaments: The anterior cruciate ligament is attenuated proximally with intrasubstance T2 hyperintensity. The findings are consistent with sequelae of a moderate sprain or chronic myxoid degeneration. The posterior cruciate ligament appears intact. Medial structures: The medial collateral ligament appears attenuated in signal with intrasubstance T2 hyperintensity and periligamentous edema. The findings are suggestive of a grade 2 sprain although there is a likely component of chronic reactive changes. The semimembranosus tendon insertions and meniscocapsular junction appear intact. Visualized portions of the pes anserinus tendons appear intact without associated bursal fluid collections. Lateral structures: The lateral collateral ligament is attenuated in signal suggestive of a prior sprain. The long and short heads of the biceps femoris tendon appear thickened distally which may reflect sequelae of a strain. The popliteus tendon is also attenuated proximally with mild intrasubstance and adjacent edema compatible with sequelae of a strain. There is mild edema tracking along the myotendinous junction. Iliotibial band appears normal. Anterior structures: The quadriceps and patellar tendons appear intact. There is lateral tilt and shift of the patella. No femoral trochlear dysplasia or ventral trochlear prominence. There is mild nonspecific edema in the infrapatellar fat pad. Bones and cartilage: No bone marrow contusions or fractures. There is tricompartmental osteophytosis. Severe cartilage thinning is demonstrated laterally in the patellofemoral compartment with subchondral edema as well as osteophytosis along the articular surfaces of the lateral patellar facet and lateral trochlea. In the medial compartment comment there is [id number] cartilage thinning with chondral fraying. In the lateral compartment, there is mild cartilage thinning with superficial chondral fraying. Joint space: There is a moderate-sized joint effusion with small filling defects consistent with small joint bodies or synovitis. There is a moderate sized Mohr's cyst. Normal appearing synovial plicae are incidentally noted. IMPRESSION: 1. Extensive degenerative tearing of the lateral and medial menisci as described as well as a focal high-grade radial tear in the posterior horn of the medial meniscus. 2. Tricompartmental osteoarthritic changes including severe cartilage loss laterally in the patellofemoral compartment due in part to lateral tilt and shift of the patella. 3. Findings suggestive of a grade 2 sprain of the MCL although a component of this may reflect chronic reactive changes. 4. Findings suggestive of a prior sprain of the fibular collateral ligament as well as strains of the biceps femoris and popliteus tendons laterally. 5. Chronic myxoid degeneration of the ACL versus sequela of a moderate proximal sprain. 6. Moderate size joint effusion with small filling defects consistent with small joint bodies or synovitis. There is also a moderate size Mohr's cyst. Dictated by: Prince Hernandez M.D. on 08/10/2018 at 7:51 Approved by: Prince Hernandez M.D. on 08/10/2018 at 8:03
== END ==
PROVIDERS: Family Provider Internal Medicine; PCP Internal Medicine; Visit Provider Orthopaedic Surgery
DX: M17.11 Unilateral primary osteoarthritis, right knee (principal); M23.221 Derangement of posterior horn of medial meniscus due to old tear or injury, right knee; M23.241 Derangement of anterior horn of lateral meniscus due to old tear or injury, right knee; M23.251 Derangement of posterior horn of lateral meniscus due to old tear or injury, right knee; M23.261 Derangement of other lateral meniscus due to old tear or injury, right knee; M25.461 Effusion, right knee; M71.21 Synovial cyst of popliteal space [Baker], right knee
CPT/HCPCS: 73721

== ENCOUNTER → 2018-08-18 13:10 | Outpatient (CLI) | payer MEDICARE, OTHER, SELFPAY ==
[2018-02-05 20:44] VITALS: BMI 43.1
[2018-08-18 13:23] LABS: Bacteria Urine None Seen
[2018-08-18 13:47] LABS: Add Manual Diff / Slide Review NO; Basophils Absolute Auto 0 /uL (0-100); Basophils Percent Auto 0.7 % (0-2); Eosinophils Absolute Auto 300 /uL (0-450); Eosinophils Percent Auto 4.5 % (2-4); Hematocrit 45.6 % (41-53); Lymphocytes Absolute Auto 1000 /uL (1100-4500); Lymphocytes Percent Auto 17.2 % (25-40); Mean Corpuscular HGB Conc 32.9 % (30-36); Mean Corpuscular Hemoglobin 30.6 PG (26-34); Mean Corpuscular Volume 92.9 fL (80-100); Monocytes Absolute Auto 700 /uL (0-900); Neutrophils Absolute Auto 4000 /uL (1500-7000); Neutrophils Percent Auto 66.6 % (50-75); Platelet Count 190 X10^3/uL (150-400); Red Blood Cell Count 4.91 X10^6/uL (4.5-5.9)
[2018-08-18 13:48] LABS: Appearance Urine UA CLEAR; Bilirubin Urine UA NEGATIVE (NEGATIVE); Color Urine UA YELLOW; Glucose Urine UA NEGATIVE (Negative); Ketones Urine UA NEGATIVE (NEGATIVE); Leukocyte Esterase Urine UA NEGATIVE (NEGATIVE); Nitrite Urine UA NEGATIVE (Negative); Occult Blood Urine UA 3+ (Negative); Protein Urine UA NEGATIVE (Negative); Specific Gravity Urine UA 1.015 (1.000-1.035); Urobilinogen Urine UA 0.2 E.U./dL (0.2); pH Urine UA 5.5 (4.5-8.0)
[2018-08-18 13:56] LABS: Hemoglobin A1C% w Est Avg Glu 5.3 % (4.0-6.0)
[2018-08-18 13:59] LABS: Culture Indicated Urine Cult Not Indicated; RBC Urine 30-100/HPF (0-5/HPF); WBC Urine 0-1/HPF (0-5/HPF)
[2018-08-18 15:30] LABS: BUN Creatinine Ratio 17.5 (6-22); Blood Urea Nitrogen 21 mg/dL (9-20); Calcium 9.5 mg/dL (8.4-10.2); Carbon Dioxide 27 mmol/L (22-32); Chloride 100 mmol/L (98-107); Glucose 94 mg/dL (80-110); HEMOLYSIS < 15 (0-50); Potassium 4.1 mmol/L (3.4-5.1); Sodium 139 mmol/L (137-145)
== END ==
PROVIDERS: Family Provider Internal Medicine; PCP Internal Medicine; Visit Provider Orthopaedic Surgery
DX: Z01.818 Encounter for other preprocedural examination (principal); N39.0 Urinary tract infection, site not specified; R73.9 Hyperglycemia, unspecified
CPT/HCPCS: 36415; 80048; 81001; 83036; 85025; 93005

== ENCOUNTER 2018-08-30 15:15 | Outpatient (RCR) | payer MEDICARE, OTHER, SELFPAY ==
[2018-02-05 20:44] VITALS: BMI 43.1
--- NOTE | 2018-05-09 15:09 | PT.OIE ---
Current Diagnoses Arthropathic psoriasis, unspecified (05/09/18) Unilateral primary osteoarthritis, right knee (05/09/18) Stiffness of right knee, not elsewhere classified (05/09/18) Weakness (05/09/18) Past Medical History (Last Updated 02/06/18 @ 16:56 by Silver Shell MD) HTN (hypertension) (Acute) Hyperlipidemia (Acute) YAIMA on CPAP (Acute) Psoriasis (Acute) Psoriatic arthritis (Acute) Past Surgical History (Last Updated 02/06/18 @ 16:57 by Silver Shell MD) History of total left knee replacement (TKR) (Acute) Provider Visit Care Team Role Provider Type Kavita Aranda MD Family Provider Non-Staff Primary Care Provider Specialty: Internal Medicine Address: [address], [address], [place], [address] Email: Nghia Padilla MD Attending Provider Non-Staff Specialty: Orthopedic Surgery Address: [address], [address], [place], [address] Email: Physical Therapy Initial Evaluation PT-OP-A Visit Information Start: 05/09/18 14:41 Freq: Status: Active Protocol: Document 05/09/18 10:30 DCW (Rec: 05/09/18 15:07 DCW [id number]) Out-Patient Physical Therapy Visit Information Visit Information Visit Type Initial Evaluation Visit Start Time 10:30 Visit Stop Time 11:15 Total Visit Minutes 45 Visit Number 1 Number of CONSTRUCTION PROJECT ADMINISTRATOR Visits 0 Evaluation Information Evaluation Date 05/09/18 PT-OP-B Current Condition Start: 05/09/18 14:41 Freq: Status: Active Protocol: Document 05/09/18 10:30 DCW (Rec: 05/09/18 15:07 DCW [id number]) Current Condition History of Current Condition Onset Date Multi-year history Current Complaints R knee pain, LE and core weakness. History of Current Condition Pt is a 73 year old male presenting with right knee pain, LE weakness, and core weakness. Pt was scheduled for skilled PT for what was supposed to be s/p R TKA, however due to a kidney stone, pt reports his TKA surgery was blocked by a urologist, and he is now scheduled for a surgical removal of his kidney stone on 05/12/18. Since he was already wscheduled out with multiple PT appointments, however, he decided that it was a good opportunity to work on some leg and core strengthening before I did have my knee surgery, so he asked for a new referral to take advantage of his scheduled appointments. 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 Pt also notes that he can walk for miles with no leg trouble, but it causes his feet to get very sore. Future Testing and Treatments Planned R TKA Surgical removal of kidney stones 05/12/18 Treatment Goals Patient/Caregiver Goals Pt's goal is to get up off the floor easier, and to strengthen his legs prior to his TKA Prior Functional Status Baseline Function- ADL's Independent Baseline Function- Mobility Independent Current Functional Impairments (Reported) Functional Limitations- Recreation/ Difficulty getting up off Hobbies floor of workshop without something to hold on to, pain in feet with extended walking. PT-OP-C Subjective Start: 05/09/18 14:41 Freq: Status: Active Protocol: Document 05/09/18 10:30 DCW (Rec: 05/09/18 15:07 DCW [id number]) OP-PT Subjective Patient Comments Patient Comments I can't do the same work I could when I was [age], and I know that I'm 73, so I don't actually expect to, but it'd be nice to get a little better at least. Patient Reported Progress Worse Patient Questionnaires Lower Extremity Functional Scale LEFS Score 36/80 = 45% OP-PT Pain Assessment Pain Assessment Grid Paper Pain Assessment Grid Completed Yes Location Bilateral Hand Intensity 6 Scale Used Numeric (1 - 10) Bilateral Foot Intensity 6 Scale Used Numeric (1 - 10) Bilateral Knee Intensity 6 Scale Used Numeric (1 - 10) PT-OP-D Balance Start: 05/09/18 14:41 Freq: Status: Active Protocol: Document 05/09/18 10:30 DCW (Rec: 05/09/18 15:07 DCW [id number]) OP-PT Balance Assessment Sitting Balance Static Sitting Balance Ability Normal Dynamic Sitting Balance Ability Normal Standing Balance Standing Balance Comments SLS: L=12 seconds, R=18 seconds Dao Fall Scale Copyright Permission Sylwia JM, Sylwia RM, Lisa SJ. Development of a scale to identify the fall- prone patient. Can J Aging 1989;8;366-7. Momo Dao (2009). Preventing patient falls. (2nd ed). [place]: [place]. PT-OP-F Manual Assessment Start: 05/09/18 15:08 Freq: Status: Active Protocol: Document 05/09/18 10:30 DCW (Rec: 05/09/18 15:09 DCW [id number]) Manual Assessments Joint Mobility Assessment Joint Mobility Assessment Left great toe minimal PROM into extension, less than 5 degrees. Decreased mobility likely impacts pt's foot pain while walking. PT-OP-M Strength Start: 05/09/18 14:41 Freq: Status: Active Protocol: Document 05/09/18 10:30 DCW (Rec: 05/09/18 15:07 DCW [id number]) Trunk Strength Trunk Manual Muscle Testing Core Stabilization Core Strength - pt holds double SLR ~5 seconds before fatigue, no complaints of low back pain, very large Diastasis recti with core contraction. MMT 4/5 Hip Strength Hip Manual Muscle Testing Right Flexion (L2) 4 Good Abduction 5 Normal Adduction 4 Good External Rotation 4 Good Internal Rotation 4 Good Left Flexion (L2) 4+ Good+ Abduction 5 Normal Adduction 4 Good External Rotation 4+ Good+ Internal Rotation 4+ Good+ Knee Strength Knee Manual Muscle Testing Right Flexion (S2) 4+ Good+ Extension (L3) 4+ Good+ Left Flexion (S2) 4+ Good+ Extension (L3) 4+ Good+ Ankle/Foot Strength Ankle and Foot Manual Muscle Testing Right Dorsiflexion (L4) 5 Normal Plantarflexion (S1) 4- Good- Left Dorsiflexion (L4) 5 Normal Plantarflexion (S1) 3+ Fair+ PT-OP-T Assessment and Plan Start: 05/09/18 14:41 Freq: Status: Active Protocol: Document 05/09/18 10:30 DCW (Rec: 05/09/18 15:07 DCW [id number]) Physical Therapy Assessment Rehab Potential Rehabilitation Potential Good Evaluation Complexity Number of Personal Factors/Comorbidities 1-2 Number of Body Systems Impaired 3 Clinical Presentation at Evaluation Stable Impairments Impairments Activity Tolerance Balance Functional Mobility Pain Soft Tissue Mobility Strength Other Concerns Barriers to Rehabilitation Upcoming kidney stone surgery, upcoming R TKA Goals Five Impairment Decreased single leg balance Short Term Goal (STG) 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 STG Duration 06/08/18 Four Impairment Strength Short Term Goal (STG) Core strength to 4+/5 STG Duration 06/08/19 [facility] Goal (LTG) Gross LE MMT to 4+/5 LTG Duration 07/09/18 Three Impairment Walking tolerance [facility] Goal (LTG) Pt to ambulate one mile with no increased foot pain LTG Duration 07/09/18 Two Impairment Floor transfers [facility] Goal (LTG) Pt to get off floor of workshop without use of objects to use UE to pull himself up LTG Duration 07/09/18 One Impairment Pt does not have appropriate home exercise program Short Term Goal (STG) Pt to be independent and compliant with an appropriate HEP STG Duration 06/08/18 Assessment Summary Assessment Pt presents with signs and symptoms consistent with osteoarthritis, Diastasis recti, and LE/core weakness. Pt should benefit from skilled therapy pre-surgical intervention for R TKA, to improve his mobility and strengthen his involved leg to improve recovery potential. Pt also presents with decreased mobility of his left great toe, which may be causing his foot pain while walking, and may benefit from manual therapy and intrinsic foot strengthening. Additionally, pt has decreased SLS time, and may benefit from minimal balance training. Physical Therapy Plan Frequency and Duration Frequency of Treatment 2x/Week Duration of Treatment Two months Plan of Care Start Date 05/09/18 Plan of Care End Date 07/09/18 Therapeutic Interventions Therapeutic Interventions Aquatic Therapy Balance Training Gait Training Home Exercise Program Joint Mobilizations Manual Therapy Soft Tissue Mobilization Therapeutic Activities Therapeutic Exercises Modalities Cold Pack/Ice Massage Electric Stimulation Hot Packs Ultrasound Next Visit Focus/Plan Next Note Type Treatment Note Next Visit Plan LE and core strengthening, balance training, joint mobs on great toe
--- NOTE | 2018-05-09 15:09 | PT.OPPOC ---
Current Diagnoses Arthropathic psoriasis, unspecified (05/09/18) Unilateral primary osteoarthritis, right knee (05/09/18) Stiffness of right knee, not elsewhere classified (05/09/18) Weakness (05/09/18) Provider Visit Care Team Role Provider Type Kavita Aranda MD Family Provider Non-Staff Primary Care Provider Specialty: Internal Medicine Address: [address], [address], [place], [address] Email: Nghia Padilla MD Attending Provider Non-Staff Specialty: Orthopedic Surgery Address: [address], [address], [place], [address] Email: Plan Of Care PT-OP-T Assessment and Plan Start: 05/09/18 14:41 Freq: Status: Active Protocol: Document 05/09/18 10:30 DCW (Rec: 05/09/18 15:07 DCW [id number]) Physical Therapy Assessment Rehab Potential Rehabilitation Potential Good Evaluation Complexity Number of Personal Factors/Comorbidities 1-2 Number of Body Systems Impaired 3 Clinical Presentation at Evaluation Stable Impairments Impairments Activity Tolerance Balance Functional Mobility Pain Soft Tissue Mobility Strength Other Concerns Barriers to Rehabilitation Upcoming kidney stone surgery, upcoming R TKA Goals Five Impairment Decreased single leg balance Short Term Goal (STG) Pt to heeler machine single leg stance for 25 seconds bilaterally. STG Duration 06/08/18 Four Impairment Strength Short Term Goal (STG) Core strength to 4+/5 STG Duration 06/08/19 Field Naturalist Goal (LTG) Gross LE MMT to 4+/5 LTG Duration 07/09/18 Three Impairment Walking tolerance Longterm Goal (LTG) Pt to ambulate one mile with no increased foot pain LTG Duration 07/09/18 Two Impairment Floor transfers Longterm Goal (LTG) Pt to get off floor of workshop without use of objects to use UE to pull himself up LTG Duration 07/09/18 One Impairment Pt does not have appropriate home exercise program Short Term Goal (STG) Pt to be independent and compliant with an appropriate HEP STG Duration 06/08/18 Assessment Summary Assessment Pt presents with signs and symptoms consistent with osteoarthritis, Diastasis recti, and LE/core weakness. Pt should benefit from skilled therapy pre-surgical intervention for R TKA, to improve his mobility and strengthen his involved leg to improve recovery potential. Pt also presents with decreased mobility of his left great toe, which may be causing his foot pain while walking, and may benefit from manual therapy and intrinsic foot strengthening. Additionally, pt has decreased SLS time, and may benefit from minimal balance training. Physical Therapy Plan Frequency and Duration Frequency of Treatment 2x/Week Duration of Treatment Two months Plan of Care Start Date 05/09/18 Plan of Care End Date 07/09/18 Therapeutic Interventions Therapeutic Interventions Aquatic Therapy Balance Training Gait Training Home Exercise Program Joint Mobilizations Manual Therapy Soft Tissue Mobilization Therapeutic Activities Therapeutic Exercises Modalities Cold Pack/Ice Massage Electric Stimulation Hot Packs Ultrasound Next Visit Focus/Plan Next Note Type Treatment Note Next Visit Plan LE and core strengthening, balance training, joint mobs on great toe Plan of Care Dates Plan of Care Start Date 05/09/18 Plan of Care End Date 07/09/18 Please Sign and Return: I have reviewed this Plan of Care and certify that the skilled therapy services above are required to meet the patient?s needs. Physician Signature Date Printed Name and Credentials Clinical Instructor Signature Printed Name and Credentials
--- NOTE | 2018-05-11 11:22 | PT.OTN ---
Current Diagnoses Arthropathic psoriasis, unspecified (05/11/18) Unilateral primary osteoarthritis, right knee (05/11/18) Physical Therapy Treatment Note PT-OP-A Visit Information Start: 05/09/18 14:41 Freq: Status: Active Protocol: Document 05/11/18 10:30 DCW (Rec: 05/11/18 11:22 DCW [id number]) Out-Patient Physical Therapy Visit Information Visit Information Visit Type Treatment Note Visit Start Time 10:30 Visit Stop Time 11:15 Total Visit Minutes 45 Visit Number 2 Number of ACCOUNT SERVICES ANALYST Visits 0 Evaluation Information Evaluation Date 05/09/18 PT-OP-B Current Condition Start: 05/09/18 14:41 Freq: Status: Active Protocol: Document 05/09/18 10:30 DCW (Rec: 05/09/18 15:07 DCW [id number]) Current Condition History of Current Condition Onset Date Multi-year history Current Complaints R knee pain, LE and core weakness. History of Current Condition Pt is a 73 year old male presenting with right knee pain, LE weakness, and core weakness. Pt was scheduled for skilled PT for what was supposed to be s/p R TKA, however due to a kidney stone, pt reports his TKA surgery was blocked by a urologist, and he is now scheduled for a surgical removal of his kidney stone on 05/12/18. Since he was already wscheduled out with multiple PT appointments, however, he decided that it was a good opportunity to work on some leg and core strengthening before I did have my knee surgery, so he asked for a new referral to take advantage of his scheduled appointments. 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 Pt also notes that he can walk for miles with no leg trouble, but it causes his feet to get very sore. Future Testing and Treatments Planned R TKA Surgical removal of kidney stones 05/12/18 Treatment Goals Patient/Caregiver Goals Pt's goal is to get up off the floor easier, and to strengthen his legs prior to his TKA Prior Functional Status Baseline Function- ADL's Independent Baseline Function- Mobility Independent Current Functional Impairments (Reported) Functional Limitations- Recreation/ Difficulty getting up off Hobbies floor of workshop without something to hold on to, pain in feet with extended walking. PT-OP-C Subjective Start: 05/09/18 14:41 Freq: Status: Active Protocol: Document 05/11/18 10:30 DCW (Rec: 05/11/18 11:22 DCW [id number]) OP-PT Subjective Patient Comments Patient Comments When I really stop to think about it, I'm...alright. PT-OP-D Balance Start: 05/09/18 14:41 Freq: Status: Active Protocol: Document 05/09/18 10:30 DCW (Rec: 05/09/18 15:07 DCW [id number]) OP-PT Balance Assessment Sitting Balance Static Sitting Balance Ability Normal Dynamic Sitting Balance Ability Normal Standing Balance Standing Balance Comments SLS: L=12 seconds, R=18 seconds Dao Fall Scale Copyright Permission Sylwia GUZMAN, Sylwia RM, Lisa SJ. Development of a scale to identify the fall- prone patient. Can J Aging 1989;8;366-7. Momo Dao (2009). Preventing patient falls. (2nd ed). [place]: [place]. PT-OP-F Manual Assessment Start: 05/09/18 15:08 Freq: Status: Active Protocol: Document 05/09/18 10:30 DCW (Rec: 05/09/18 15:09 DCW [id number]) Manual Assessments Joint Mobility Assessment Joint Mobility Assessment Left great toe minimal PROM into extension, less than 5 degrees. Decreased mobility likely impacts pt's foot pain while walking. PT-OP-M Strength Start: 05/09/18 14:41 Freq: Status: Active Protocol: Document 05/09/18 10:30 DCW (Rec: 05/09/18 15:07 DCW [id number]) Trunk Strength Trunk Manual Muscle Testing Core Stabilization Core Strength - pt holds double SLR ~5 seconds before fatigue, no complaints of low back pain, very large Diastasis recti with core contraction. MMT 4/5 Hip Strength Hip Manual Muscle Testing Right Flexion (L2) 4 Good Abduction 5 Normal Adduction 4 Good External Rotation 4 Good Internal Rotation 4 Good Left Flexion (L2) 4+ Good+ Abduction 5 Normal Adduction 4 Good External Rotation 4+ Good+ Internal Rotation 4+ Good+ Knee Strength Knee Manual Muscle Testing Right Flexion (S2) 4+ Good+ Extension (L3) 4+ Good+ Left Flexion (S2) 4+ Good+ Extension (L3) 4+ Good+ Ankle/Foot Strength Ankle and Foot Manual Muscle Testing Right Dorsiflexion (L4) 5 Normal Plantarflexion (S1) 4- Good- Left Dorsiflexion (L4) 5 Normal Plantarflexion (S1) 3+ Fair+ PT-OP-Q Treatments Start: 05/09/18 14:41 Freq: Status: Active Protocol: Document 05/11/18 10:30 DCW (Rec: 05/11/18 11:22 DCW [id number]) Cardio Equipment Recumbent Bicycle Duration (Minutes) 5 Resistance 8 Seat Position 9 Gym Equipment Shuttle Recovery Unilateral Squats Resistance 75# Shuttle Recovery Platform Stable Bilateral Squats Details Adduction ball squeeze Resistance 125# Shuttle Recovery Platform Stable Shuttle Balance Red Details Wide MICHAEL (EO/EC), Staggered Stance, Lateral weight-shift Therapeutic Exercises Supine Exercises PPT /c TrA - SLR Supine Exercise Name PPT /c TrA - SLR Side bilateral PPT /c TrA - Marching Supine Exercise Name PPT /c TrA - Marching PPT /c TrA Supine Exercise Name Posterior pelvic tilt /c TrA activation Reps/Minutes 5 hold Bridging Supine Exercise Name Bridging in hooklying Side bilateral Standing Exercises Hip Extension Standing Exercise Name Standing hip extension Side bilateral Resistance Lv 3 Equipment Used T-band Terminal Knee Extension Standing Exercise Name TKE Side bilateral Resistance Lv 3 Equipment Used T-band PT-OP-T Assessment and Plan Start: 05/09/18 14:41 Freq: Status: Active Protocol: Document 05/11/18 10:30 DCW (Rec: 05/11/18 11:22 DCW [id number]) Physical Therapy Assessment Impairments Impairments Activity Tolerance Balance Functional Mobility Pain Soft Tissue Mobility Strength Goals Five Impairment Decreased single leg balance Short Term Goal (STG) 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 STG Duration 06/08/18 Four Impairment Strength Short Term Goal (STG) Core strength to 4+/5 STG Duration 06/08/19 Educational Aide Goal (LTG) Gross LE MMT to 4+/5 LTG Duration 07/09/18 Three Impairment Walking tolerance [facility] Goal (LTG) Pt to ambulate one mile with no increased foot pain LTG Duration 07/09/18 Two Impairment Floor transfers Educational Aide Goal (LTG) Pt to get off floor of workshop without use of objects to use UE to pull himself up LTG Duration 07/09/18 One Impairment Pt does not have appropriate home exercise program Short Term Goal (STG) Pt to be independent and compliant with an appropriate HEP STG Duration 06/08/18 Assessment Summary Assessment Pt tolerated addition of new exercises today, ho complaints of increased knee pain. Pt did struggle with holding core contraction, required verbal reminders during exercises. Physical Therapy Plan Frequency and Duration Frequency of Treatment 2x/Week Duration of Treatment Two months Plan of Care Start Date 05/09/18 Plan of Care End Date 07/09/18 Therapeutic Interventions Therapeutic Interventions Aquatic Therapy Balance Training Gait Training Home Exercise Program Joint Mobilizations Manual Therapy Soft Tissue Mobilization Therapeutic Activities Therapeutic Exercises Modalities Cold Pack/Ice Massage Electric Stimulation Hot Packs Ultrasound Next Visit Focus/Plan Next Note Type Treatment Note Next Visit Plan LE and core strengthening, balance training, joint mobs on great toe
--- NOTE | 2018-05-16 11:15 | PT.OTN ---
Current Diagnoses Arthropathic psoriasis, unspecified (05/16/18) Unilateral primary osteoarthritis, right knee (05/16/18) Physical Therapy Treatment Note PT-OP-A Visit Information Start: 05/09/18 14:41 Freq: Status: Active Protocol: Document 05/16/18 10:30 DCW (Rec: 05/16/18 11:15 DCW [id number]) Out-Patient Physical Therapy Visit Information Visit Information Visit Type Treatment Note Visit Start Time 10:30 Visit Stop Time 11:15 Total Visit Minutes 45 Visit Number 3 Number of TABLEAU REPORT DEVELOPER Visits 0 Evaluation Information Evaluation Date 05/09/18 PT-OP-B Current Condition Start: 05/09/18 14:41 Freq: Status: Active Protocol: Document 05/09/18 10:30 DCW (Rec: 05/09/18 15:07 DCW [id number]) Current Condition History of Current Condition Onset Date Multi-year history Current Complaints R knee pain, LE and core weakness. History of Current Condition Pt is a 73 year old male presenting with right knee pain, LE weakness, and core weakness. Pt was scheduled for skilled PT for what was supposed to be s/p R TKA, however due to a kidney stone, pt reports his TKA surgery was blocked by a urologist, and he is now scheduled for a surgical removal of his kidney stone on 05/12/18. Since he was already wscheduled out with multiple PT appointments, however, he decided that it was a good opportunity to work on some leg and core strengthening before I did have my knee surgery, so he asked for a new referral to take advantage of his scheduled appointments. 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 Pt also notes that he can walk for miles with no leg trouble, but it causes his feet to get very sore. Future Testing and Treatments Planned R TKA Surgical removal of kidney stones 05/12/18 Treatment Goals Patient/Caregiver Goals Pt's goal is to get up off the floor easier, and to strengthen his legs prior to his TKA Prior Functional Status Baseline Function- ADL's Independent Baseline Function- Mobility Independent Current Functional Impairments (Reported) Functional Limitations- Recreation/ Difficulty getting up off Hobbies floor of workshop without something to hold on to, pain in feet with extended walking. 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 PT-OP-D Balance Start: 05/09/18 14:41 Freq: Status: Active Protocol: Document 05/09/18 10:30 DCW (Rec: 05/09/18 15:07 DCW [id number]) OP-PT Balance Assessment Sitting Balance Static Sitting Balance Ability Normal Dynamic Sitting Balance Ability Normal Standing Balance Standing Balance Comments SLS: L=12 seconds, R=18 seconds Dao Fall Scale Copyright Permission Sylwia GUZMAN, Sylwia RM, Lisa SJ. Development of a scale to identify the fall- prone patient. Can J Aging 1989;8;366-7. Momo Dao (2009). Preventing patient falls. (2nd ed). [place]: [place]. PT-OP-F Manual Assessment Start: 05/09/18 15:08 Freq: Status: Active Protocol: Document 05/09/18 10:30 DCW (Rec: 05/09/18 15:09 DCW [id number]) Manual Assessments Joint Mobility Assessment Joint Mobility Assessment Left great toe minimal PROM into extension, less than 5 degrees. Decreased mobility likely impacts pt's foot pain while walking. PT-OP-M Strength Start: 05/09/18 14:41 Freq: Status: Active Protocol: Document 05/09/18 10:30 DCW (Rec: 05/09/18 15:07 DCW [id number]) Trunk Strength Trunk Manual Muscle Testing Core Stabilization Core Strength - pt holds double SLR ~5 seconds before fatigue, no complaints of low back pain, very large Diastasis recti with core contraction. MMT 4/5 Hip Strength Hip Manual Muscle Testing Right Flexion (L2) 4 Good Abduction 5 Normal Adduction 4 Good External Rotation 4 Good Internal Rotation 4 Good Left Flexion (L2) 4+ Good+ Abduction 5 Normal Adduction 4 Good External Rotation 4+ Good+ Internal Rotation 4+ Good+ Knee Strength Knee Manual Muscle Testing Right Flexion (S2) 4+ Good+ Extension (L3) 4+ Good+ Left Flexion (S2) 4+ Good+ Extension (L3) 4+ Good+ Ankle/Foot Strength Ankle and Foot Manual Muscle Testing Right Dorsiflexion (L4) 5 Normal Plantarflexion (S1) 4- Good- Left Dorsiflexion (L4) 5 Normal Plantarflexion (S1) 3+ Fair+ PT-OP-Q Treatments Start: 05/09/18 14:41 Freq: Status: Active Protocol: Document 05/16/18 10:30 DCW (Rec: 05/16/18 11:15 DCW [id number]) Cardio Equipment Recumbent Bicycle Duration (Minutes) 5 Resistance 8 Seat Position 9 Gym Equipment Shuttle Recovery Unilateral Squats Resistance 75# Shuttle Recovery Platform Stable Bilateral Squats Details Adduction ball squeeze Resistance 125# Shuttle Recovery Platform Unstable Shuttle Balance Red Details Wide MICHAEL (EO/EC), Staggered Stance, Lateral weight-shift Therapeutic Ball Bridging /c T-ball Exercise Details Bridging /c feet on T-ball Ball Size/Color Red - 55 cm Body Position Supine Therapeutic Exercises Supine Exercises Bridging Supine Exercise Name Bridging in hooklying /c single leg extension Side bilateral Sidelying Exercises Reverse Clamshells Sidelying Exercise Name Reverse Clamshell - hip IR Side bilateral Clamshells Sidelying Exercise Name Clamshell - hip ER Side bilateral Resistance Lv 3 Equipment Used T-band PT-OP-T Assessment and Plan Start: 05/09/18 14:41 Freq: Status: Active Protocol: Document 05/16/18 10:30 DCW (Rec: 05/16/18 11:15 DCW [id number]) Physical Therapy Assessment Impairments Impairments Activity Tolerance Balance Functional Mobility Pain Soft Tissue Mobility Strength Goals Five Impairment Decreased single leg balance Short Term Goal (STG) Pt to blacking wheel tender single leg stance for 25 seconds bilaterally. STG Duration 06/08/18 Four Impairment Strength Short Term Goal (STG) Core strength to 4+/5 STG Duration 06/08/19 Transcription Goal (LTG) Gross LE MMT to 4+/5 LTG Duration 07/09/18 Three Impairment Walking tolerance Retirement Goal (LTG) Pt to ambulate one mile with no increased foot pain LTG Duration 07/09/18 Two Impairment Floor transfers Transcription Goal (LTG) Pt to get off floor of workshop without use of objects to use UE to pull himself up LTG Duration 07/09/18 One Impairment Pt does not have appropriate home exercise program Short Term Goal (STG) Pt to be independent and compliant with an appropriate HEP STG Duration 06/08/18 Assessment Summary Assessment Pt displayed improved ability to maintain TrA contraction during exercise, but did note some increased knee pain near end of appointment. Physical Therapy Plan Frequency and Duration Frequency of Treatment 2x/Week Duration of Treatment Two months Plan of Care Start Date 05/09/18 Plan of Care End Date 07/09/18 Therapeutic Interventions Therapeutic Interventions Aquatic Therapy Balance Training Gait Training Home Exercise Program Joint Mobilizations Manual Therapy Soft Tissue Mobilization Therapeutic Activities Therapeutic Exercises Modalities Cold Pack/Ice Massage Electric Stimulation Hot Packs Ultrasound Next Visit Focus/Plan Next Note Type Treatment Note Next Visit Plan LE and core strengthening, balance training, joint mobs on great toe
--- NOTE | 2018-05-18 11:14 | PT.OTN ---
Current Diagnoses Arthropathic psoriasis, unspecified (05/18/18) Unilateral primary osteoarthritis, right knee (05/18/18) Physical Therapy Treatment Note PT-OP-A Visit Information Start: 05/09/18 14:41 Freq: Status: Active Protocol: Document 05/18/18 10:30 DCW (Rec: 05/18/18 11:14 DCW [id number]) Out-Patient Physical Therapy Visit Information Visit Information Visit Type Treatment Note Visit Start Time 10:30 Visit Stop Time 11:15 Total Visit Minutes 45 Visit Number 4 Number of WEB MARKETING STRATEGIST Visits 0 Evaluation Information Evaluation Date 05/09/18 PT-OP-B Current Condition Start: 05/09/18 14:41 Freq: Status: Active Protocol: Document 05/09/18 10:30 DCW (Rec: 05/09/18 15:07 DCW [id number]) Current Condition History of Current Condition Onset Date Multi-year history Current Complaints R knee pain, LE and core weakness. History of Current Condition Pt is a 73 year old male presenting with right knee pain, LE weakness, and core weakness. Pt was scheduled for skilled PT for what was supposed to be s/p R TKA, however due to a kidney stone, pt reports his TKA surgery was blocked by a urologist, and he is now scheduled for a surgical removal of his kidney stone on 05/12/18. Since he was already wscheduled out with multiple PT appointments, however, he decided that it was a good opportunity to work on some leg and core strengthening before I did have my knee surgery, so he asked for a new referral to take advantage of his scheduled appointments. 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 Pt also notes that he can walk for miles with no leg trouble, but it causes his feet to get very sore. Future Testing and Treatments Planned R TKA Surgical removal of kidney stones 05/12/18 Treatment Goals Patient/Caregiver Goals Pt's goal is to get up off the floor easier, and to strengthen his legs prior to his TKA Prior Functional Status Baseline Function- ADL's Independent Baseline Function- Mobility Independent Current Functional Impairments (Reported) Functional Limitations- Recreation/ Difficulty getting up off Hobbies floor of workshop without something to hold on to, pain in feet with extended walking. PT-OP-C Subjective Start: 05/09/18 14:41 Freq: Status: Active Protocol: Document 05/18/18 10:30 DCW (Rec: 05/18/18 11:14 DCW [id number]) OP-PT Subjective Patient Comments Patient Comments Pt reports that he feels his recovery time after his PT session is getting quicker. PT-OP-D Balance Start: 05/09/18 14:41 Freq: Status: Active Protocol: Document 05/09/18 10:30 DCW (Rec: 05/09/18 15:07 DCW [id number]) OP-PT Balance Assessment Sitting Balance Static Sitting Balance Ability Normal Dynamic Sitting Balance Ability Normal Standing Balance Standing Balance Comments SLS: L=12 seconds, R=18 seconds Dao Fall Scale Copyright Permission Sylwia GUZMAN, Sylwia RM, Lisa SJ. Development of a scale to identify the fall- prone patient. Can J Aging 1989;8;366-7. Momo Dao (2009). Preventing patient falls. (2nd ed). [place]: [place]. PT-OP-F Manual Assessment Start: 05/09/18 15:08 Freq: Status: Active Protocol: Document 05/09/18 10:30 DCW (Rec: 05/09/18 15:09 DCW [id number]) Manual Assessments Joint Mobility Assessment Joint Mobility Assessment Left great toe minimal PROM into extension, less than 5 degrees. Decreased mobility likely impacts pt's foot pain while walking. PT-OP-M Strength Start: 05/09/18 14:41 Freq: Status: Active Protocol: Document 05/09/18 10:30 DCW (Rec: 05/09/18 15:07 DCW [id number]) Trunk Strength Trunk Manual Muscle Testing Core Stabilization Core Strength - pt holds double SLR ~5 seconds before fatigue, no complaints of low back pain, very large Diastasis recti with core contraction. MMT 4/5 Hip Strength Hip Manual Muscle Testing Right Flexion (L2) 4 Good Abduction 5 Normal Adduction 4 Good External Rotation 4 Good Internal Rotation 4 Good Left Flexion (L2) 4+ Good+ Abduction 5 Normal Adduction 4 Good External Rotation 4+ Good+ Internal Rotation 4+ Good+ Knee Strength Knee Manual Muscle Testing Right Flexion (S2) 4+ Good+ Extension (L3) 4+ Good+ Left Flexion (S2) 4+ Good+ Extension (L3) 4+ Good+ Ankle/Foot Strength Ankle and Foot Manual Muscle Testing Right Dorsiflexion (L4) 5 Normal Plantarflexion (S1) 4- Good- Left Dorsiflexion (L4) 5 Normal Plantarflexion (S1) 3+ Fair+ PT-OP-Q Treatments Start: 05/09/18 14:41 Freq: Status: Active Protocol: Document 05/18/18 10:30 DCW (Rec: 05/18/18 11:14 DCW [id number]) Cardio Equipment Recumbent Bicycle Duration (Minutes) 5 Resistance 8 Seat Position 9 Gym Equipment Shuttle Recovery Unilateral Squats Resistance 75# Shuttle Recovery Platform Stable Bilateral Squats Resistance 125# Shuttle Recovery Platform Unstable Shuttle Balance Red Details Wide MICHAEL (EO/EC), Staggered Stance, Lateral weight-shift Therapeutic Exercises Sitting Exercises Sit<->Stand Sitting Exercise Name Single leg stand->sit squats Side bilateral Standing Exercises Hip Extension Standing Exercise Name Standing hip extension Side bilateral Resistance Lv 3 Equipment Used T-band Terminal Knee Extension Standing Exercise Name TKE Side bilateral Resistance Lv 3 Equipment Used T-band PT-OP-T Assessment and Plan Start: 05/09/18 14:41 Freq: Status: Active Protocol: Document 05/18/18 10:30 DCW (Rec: 05/18/18 11:14 DCW [id number]) Physical Therapy Assessment Impairments Impairments Activity Tolerance Balance Functional Mobility Pain Soft Tissue Mobility Strength Goals Five Impairment Decreased single leg balance Short Term Goal (STG) Pt to retail 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 STG Duration 06/08/18 Four Impairment Strength Short Term Goal (STG) Core strength to 4+/5 STG Duration 06/08/19 Durability Technician Goal (LTG) Gross LE MMT to 4+/5 LTG Duration 07/09/18 Three Impairment Walking tolerance Durability Technician Goal (LTG) Pt to ambulate one mile with no increased foot pain LTG Duration 07/09/18 Two Impairment Floor transfers Chcf Goal (LTG) Pt to get off floor of workshop without use of objects to use UE to pull himself up LTG Duration 07/09/18 One Impairment Pt does not have appropriate home exercise program Short Term Goal (STG) Pt to be independent and compliant with an appropriate HEP STG Duration 06/08/18 Assessment Summary Assessment Pt improving balance and LE strength, reports increased subjective stability in right knee. Physical Therapy Plan Frequency and Duration Frequency of Treatment 2x/Week Duration of Treatment Two months Plan of Care Start Date 05/09/18 Plan of Care End Date 07/09/18 Therapeutic Interventions Therapeutic Interventions Aquatic Therapy Balance Training Gait Training Home Exercise Program Joint Mobilizations Manual Therapy Soft Tissue Mobilization Therapeutic Activities Therapeutic Exercises Modalities Cold Pack/Ice Massage Electric Stimulation Hot Packs Ultrasound Next Visit Focus/Plan Next Note Type Treatment Note Next Visit Plan LE and core strengthening, balance training, joint mobs on great toe
--- NOTE | 2018-05-23 11:14 | PT.OTN ---
Current Diagnoses Arthropathic psoriasis, unspecified (05/23/18) Unilateral primary osteoarthritis, right knee (05/23/18) Physical Therapy Treatment Note PT-OP-A Visit Information Start: 05/09/18 14:41 Freq: Status: Active Protocol: Document 05/23/18 10:30 DCW (Rec: 05/23/18 11:14 DCW [id number]) Out-Patient Physical Therapy Visit Information Visit Information Visit Type Treatment Note Visit Start Time 10:30 Visit Stop Time 11:15 Total Visit Minutes 45 Visit Number 5 Number of PSYCHIATRIC TECHNICIAN Visits 0 Evaluation Information Evaluation Date 05/09/18 PT-OP-B Current Condition Start: 05/09/18 14:41 Freq: Status: Active Protocol: Document 05/09/18 10:30 DCW (Rec: 05/09/18 15:07 DCW [id number]) Current Condition History of Current Condition Onset Date Multi-year history Current Complaints R knee pain, LE and core weakness. History of Current Condition Pt is a 73 year old male presenting with right knee pain, LE weakness, and core weakness. Pt was scheduled for skilled PT for what was supposed to be s/p R TKA, however due to a kidney stone, pt reports his TKA surgery was blocked by a urologist, and he is now scheduled for a surgical removal of his kidney stone on 05/12/18. Since he was already wscheduled out with multiple PT appointments, however, he decided that it was a good opportunity to work on some leg and core strengthening before I did have my knee surgery, so he asked for a new referral to take advantage of his scheduled appointments. 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 Pt also notes that he can walk for miles with no leg trouble, but it causes his feet to get very sore. Future Testing and Treatments Planned R TKA Surgical removal of kidney stones 05/12/18 Treatment Goals Patient/Caregiver Goals Pt's goal is to get up off the floor easier, and to strengthen his legs prior to his TKA Prior Functional Status Baseline Function- ADL's Independent Baseline Function- Mobility Independent Current Functional Impairments (Reported) Functional Limitations- Recreation/ Difficulty getting up off Hobbies floor of workshop without something to hold on to, pain in feet with extended walking. PT-OP-C Subjective Start: 05/09/18 14:41 Freq: Status: Active Protocol: Document 05/23/18 10:30 DCW (Rec: 05/23/18 11:14 DCW [id number]) OP-PT Subjective Patient Comments Patient Comments Pt reports he is feeling alright today, but admits that he has been very, very tired at night. PT-OP-D Balance Start: 05/09/18 14:41 Freq: Status: Active Protocol: Document 05/09/18 10:30 DCW (Rec: 05/09/18 15:07 DCW [id number]) OP-PT Balance Assessment Sitting Balance Static Sitting Balance Ability Normal Dynamic Sitting Balance Ability Normal Standing Balance Standing Balance Comments SLS: L=12 seconds, R=18 seconds Dao Fall Scale Copyright Permission Slywia GUZMAN, Sylwia RM, Lisa SJ. Development of a scale to identify the fall- prone patient. Can J Aging 1989;8;366-7. Momo Dao (2009). Preventing patient falls. (2nd ed). [place]: [place]. PT-OP-F Manual Assessment Start: 05/09/18 15:08 Freq: Status: Active Protocol: Document 05/09/18 10:30 DCW (Rec: 05/09/18 15:09 DCW [id number]) Manual Assessments Joint Mobility Assessment Joint Mobility Assessment Left great toe minimal PROM into extension, less than 5 degrees. Decreased mobility likely impacts pt's foot pain while walking. PT-OP-M Strength Start: 05/09/18 14:41 Freq: Status: Active Protocol: Document 05/09/18 10:30 DCW (Rec: 05/09/18 15:07 DCW [id number]) Trunk Strength Trunk Manual Muscle Testing Core Stabilization Core Strength - pt holds double SLR ~5 seconds before fatigue, no complaints of low back pain, very large Diastasis recti with core contraction. MMT 4/5 Hip Strength Hip Manual Muscle Testing Right Flexion (L2) 4 Good Abduction 5 Normal Adduction 4 Good External Rotation 4 Good Internal Rotation 4 Good Left Flexion (L2) 4+ Good+ Abduction 5 Normal Adduction 4 Good External Rotation 4+ Good+ Internal Rotation 4+ Good+ Knee Strength Knee Manual Muscle Testing Right Flexion (S2) 4+ Good+ Extension (L3) 4+ Good+ Left Flexion (S2) 4+ Good+ Extension (L3) 4+ Good+ Ankle/Foot Strength Ankle and Foot Manual Muscle Testing Right Dorsiflexion (L4) 5 Normal Plantarflexion (S1) 4- Good- Left Dorsiflexion (L4) 5 Normal Plantarflexion (S1) 3+ Fair+ PT-OP-Q Treatments Start: 05/09/18 14:41 Freq: Status: Active Protocol: Document 05/23/18 10:30 DCW (Rec: 05/23/18 11:14 DCW [id number]) Cardio Equipment Recumbent Bicycle Duration (Minutes) 5 Resistance 11 Seat Position 9 Gym Equipment Shuttle Recovery Unilateral Squats Resistance 75# Shuttle Recovery Platform Stable Bilateral Squats Resistance 125# Shuttle Recovery Platform Unstable Shuttle Balance Red Details Wide MICHAEL (EO/EC, Perturbations ), Staggered Stance, Lateral weight-shift Therapeutic Ball Bridging /c T-ball Exercise Details Bridging /c feet on T-ball Ball Size/Color Red - 55 cm Body Position Supine Therapeutic Exercises Prone Exercises Plank /c Alternating leg raise Prone Exercise Name Plank /c Alternating leg raise Comments stopped due to back and toe pain Plank Prone Exercise Name Plank on elbows PT-OP-T Assessment and Plan Start: 05/09/18 14:41 Freq: Status: Active Protocol: Document 05/23/18 10:30 DCW (Rec: 05/23/18 11:14 DCW [id number]) Physical Therapy Assessment Impairments Impairments Activity Tolerance Balance Functional Mobility Pain Soft Tissue Mobility Strength Goals Five Impairment Decreased single leg balance Short Term Goal (STG) 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 STG Duration 06/08/18 Four Impairment Strength Short Term Goal (STG) Core strength to 4+/5 STG Duration 06/08/19 Correction Goal (LTG) Gross LE MMT to 4+/5 LTG Duration 07/09/18 Three Impairment Walking tolerance Wet Trimmer Goal (LTG) Pt to ambulate one mile with no increased foot pain LTG Duration 07/09/18 Two Impairment Floor transfers Wet Trimmer Goal (LTG) Pt to get off floor of workshop without use of objects to use UE to pull himself up LTG Duration 07/09/18 One Impairment Pt does not have appropriate home exercise program Short Term Goal (STG) Pt to be independent and compliant with an appropriate HEP STG Duration 06/08/18 Assessment Summary Assessment Pt improving with both knee pain control and overall core strength and stability. Physical Therapy Plan Frequency and Duration Frequency of Treatment 2x/Week Duration of Treatment Two months Plan of Care Start Date 05/09/18 Plan of Care End Date 07/09/18 Therapeutic Interventions Therapeutic Interventions Aquatic Therapy Balance Training Gait Training Home Exercise Program Joint Mobilizations Manual Therapy Soft Tissue Mobilization Therapeutic Activities Therapeutic Exercises Modalities Cold Pack/Ice Massage Electric Stimulation Hot Packs Ultrasound Next Visit Focus/Plan Next Note Type Treatment Note Next Visit Plan LE and core strengthening, balance training, joint mobs on great toe
--- NOTE | 2018-05-25 11:13 | PT.OTN ---
Current Diagnoses Arthropathic psoriasis, unspecified (05/25/18) Unilateral primary osteoarthritis, right knee (05/25/18) Physical Therapy Treatment Note PT-OP-A Visit Information Start: 05/09/18 14:41 Freq: Status: Active Protocol: Document 05/25/18 10:30 DCW (Rec: 05/25/18 11:13 DCW [id number]) Out-Patient Physical Therapy Visit Information Visit Information Visit Type Treatment Note Visit Start Time 10:30 Visit Stop Time 11:15 Total Visit Minutes 45 Visit Number 6 Number of APARTMENT MANAGER Visits 0 Evaluation Information Evaluation Date 05/09/18 PT-OP-B Current Condition Start: 05/09/18 14:41 Freq: Status: Active Protocol: Document 05/09/18 10:30 DCW (Rec: 05/09/18 15:07 DCW [id number]) Current Condition History of Current Condition Onset Date Multi-year history Current Complaints R knee pain, LE and core weakness. History of Current Condition Pt is a 73 year old male presenting with right knee pain, LE weakness, and core weakness. Pt was scheduled for skilled PT for what was supposed to be s/p R TKA, however due to a kidney stone, pt reports his TKA surgery was blocked by a urologist, and he is now scheduled for a surgical removal of his kidney stone on 05/12/18. Since he was already wscheduled out with multiple PT appointments, however, he decided that it was a good opportunity to work on some leg and core strengthening before I did have my knee surgery, so he asked for a new referral to take advantage of his scheduled appointments. 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 Pt also notes that he can walk for miles with no leg trouble, but it causes his feet to get very sore. Future Testing and Treatments Planned R TKA Surgical removal of kidney stones 05/12/18 Treatment Goals Patient/Caregiver Goals Pt's goal is to get up off the floor easier, and to strengthen his legs prior to his TKA Prior Functional Status Baseline Function- ADL's Independent Baseline Function- Mobility Independent Current Functional Impairments (Reported) Functional Limitations- Recreation/ Difficulty getting up off Hobbies floor of workshop without something to hold on to, pain in feet with extended walking. PT-OP-C Subjective Start: 05/09/18 14:41 Freq: Status: Active Protocol: Document 05/25/18 10:30 DCW (Rec: 05/25/18 11:13 DCW [id number]) OP-PT Subjective Patient Comments Patient Comments Pt feels like he is making improvement since beginning therapy. PT-OP-D Balance Start: 05/09/18 14:41 Freq: Status: Active Protocol: Document 05/09/18 10:30 DCW (Rec: 05/09/18 15:07 DCW [id number]) OP-PT Balance Assessment Sitting Balance Static Sitting Balance Ability Normal Dynamic Sitting Balance Ability Normal Standing Balance Standing Balance Comments SLS: L=12 seconds, R=18 seconds Dao Fall Scale Copyright Permission Sylwia GUZMAN, Sylwia RM, Lisa SJ. Development of a scale to identify the fall- prone patient. Can J Aging 1989;8;366-7. Momo Dao (2009). Preventing patient falls. (2nd ed). [place]: [place]. PT-OP-F Manual Assessment Start: 05/09/18 15:08 Freq: Status: Active Protocol: Document 05/09/18 10:30 DCW (Rec: 05/09/18 15:09 DCW [id number]) Manual Assessments Joint Mobility Assessment Joint Mobility Assessment Left great toe minimal PROM into extension, less than 5 degrees. Decreased mobility likely impacts pt's foot pain while walking. PT-OP-M Strength Start: 05/09/18 14:41 Freq: Status: Active Protocol: Document 05/09/18 10:30 DCW (Rec: 05/09/18 15:07 DCW [id number]) Trunk Strength Trunk Manual Muscle Testing Core Stabilization Core Strength - pt holds double SLR ~5 seconds before fatigue, no complaints of low back pain, very large Diastasis recti with core contraction. MMT 4/5 Hip Strength Hip Manual Muscle Testing Right Flexion (L2) 4 Good Abduction 5 Normal Adduction 4 Good External Rotation 4 Good Internal Rotation 4 Good Left Flexion (L2) 4+ Good+ Abduction 5 Normal Adduction 4 Good External Rotation 4+ Good+ Internal Rotation 4+ Good+ Knee Strength Knee Manual Muscle Testing Right Flexion (S2) 4+ Good+ Extension (L3) 4+ Good+ Left Flexion (S2) 4+ Good+ Extension (L3) 4+ Good+ Ankle/Foot Strength Ankle and Foot Manual Muscle Testing Right Dorsiflexion (L4) 5 Normal Plantarflexion (S1) 4- Good- Left Dorsiflexion (L4) 5 Normal Plantarflexion (S1) 3+ Fair+ PT-OP-Q Treatments Start: 05/09/18 14:41 Freq: Status: Active Protocol: Document 05/25/18 10:30 DCW (Rec: 05/25/18 11:13 DCW [id number]) Cardio Equipment Recumbent Bicycle Duration (Minutes) 6 Resistance 11 Seat Position 10 Gym Equipment Shuttle Recovery Unilateral Squats Resistance 75# Shuttle Recovery Platform Stable Bilateral Squats Resistance 125# Shuttle Recovery Platform Unstable Shuttle Balance Red Details Wide MICHAEL (EO/EC, Perturbations ), Staggered Stance, Lateral weight-shift Therapeutic Exercises Standing Exercises Hip Extension Standing Exercise Name Standing hip extension Side bilateral Resistance Lv 3 Equipment Used T-band Other Exercises Resisted Fwd/Retro Ambulation Other Exercise Name Resisted Forward/Backward Stepping Resistance Green Equipment Used T-band Resisted Side-stepping Other Exercise Name Resisted side-stepping Resistance Green Equipment Used T-band PT-OP-T Assessment and Plan Start: 05/09/18 14:41 Freq: Status: Active Protocol: Document 05/25/18 10:30 DCW (Rec: 05/25/18 11:13 DCW [id number]) Physical Therapy Assessment Impairments Impairments Activity Tolerance Balance Functional Mobility Pain Soft Tissue Mobility Strength Goals Five Impairment Decreased single leg balance Short Term Goal (STG) Pt to reading professor single leg stance for 25 seconds bilaterally. STG Duration 06/08/18 Four Impairment Strength Short Term Goal (STG) Core strength to 4+/5 STG Duration 06/08/19 Nuclear Monitoring Technician Goal (LTG) Gross LE MMT to 4+/5 LTG Duration 07/09/18 Three Impairment Walking tolerance Nuclear Monitoring Technician Goal (LTG) Pt to ambulate one mile with no increased foot pain LTG Duration 07/09/18 Two Impairment Floor transfers Nuclear Monitoring Technician Goal (LTG) Pt to get off floor of workshop without use of objects to use UE to pull himself up LTG Duration 07/09/18 One Impairment Pt does not have appropriate home exercise program Short Term Goal (STG) Pt to be independent and compliant with an appropriate HEP STG Duration 06/08/18 Assessment Summary Assessment Pt unable to attend therapy over the next few weeks due to scheduling conflicts, will work on his HEP regularly. Physical Therapy Plan Frequency and Duration Frequency of Treatment 2x/Week Duration of Treatment Two months Plan of Care Start Date 05/09/18 Plan of Care End Date 07/09/18 Therapeutic Interventions Therapeutic Interventions Aquatic Therapy Balance Training Gait Training Home Exercise Program Joint Mobilizations Manual Therapy Soft Tissue Mobilization Therapeutic Activities Therapeutic Exercises Modalities Cold Pack/Ice Massage Electric Stimulation Hot Packs Ultrasound Next Visit Focus/Plan Next Note Type Treatment Note Next Visit Plan LE and core strengthening, balance training, joint mobs on great toe
--- NOTE | 2018-06-15 12:40 | PT.OTN ---
Current Diagnoses Arthropathic psoriasis, unspecified (06/15/18) Unilateral primary osteoarthritis, right knee (06/15/18) Physical Therapy Treatment Note PT-OP-A Visit Information Start: 05/09/18 14:41 Freq: Status: Active Protocol: Document 06/15/18 12:00 DCW (Rec: 06/15/18 12:40 DCW [id number]) Out-Patient Physical Therapy Visit Information Visit Information Visit Type Treatment Note Visit Start Time 12:00 Visit Stop Time 12:45 Total Visit Minutes 45 Visit Number 7 Number of INFORMATION SYSTEMS ARCHITECT Visits 0 Evaluation Information Evaluation Date 05/09/18 PT-OP-B Current Condition Start: 05/09/18 14:41 Freq: Status: Active Protocol: Document 05/09/18 10:30 DCW (Rec: 05/09/18 15:07 DCW [id number]) Current Condition History of Current Condition Onset Date Multi-year history Current Complaints R knee pain, LE and core weakness. History of Current Condition Pt is a 73 year old male presenting with right knee pain, LE weakness, and core weakness. Pt was scheduled for skilled PT for what was supposed to be s/p R TKA, however due to a kidney stone, pt reports his TKA surgery was blocked by a urologist, and he is now scheduled for a surgical removal of his kidney stone on 05/12/18. Since he was already wscheduled out with multiple PT appointments, however, he decided that it was a good opportunity to work on some leg and core strengthening before I did have my knee surgery, so he asked for a new referral to take advantage of his scheduled appointments. 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 Pt also notes that he can walk for miles with no leg trouble, but it causes his feet to get very sore. Future Testing and Treatments Planned R TKA Surgical removal of kidney stones 05/12/18 Treatment Goals Patient/Caregiver Goals Pt's goal is to get up off the floor easier, and to strengthen his legs prior to his TKA Prior Functional Status Baseline Function- ADL's Independent Baseline Function- Mobility Independent Current Functional Impairments (Reported) Functional Limitations- Recreation/ Difficulty getting up off Hobbies floor of workshop without something to hold on to, pain in feet with extended walking. PT-OP-C Subjective Start: 05/09/18 14:41 Freq: Status: Active Protocol: Document 06/15/18 12:00 DCW (Rec: 06/15/18 12:40 DCW [id number]) OP-PT Subjective Patient Comments Patient Comments I haven't been doing very well. I've been having a lot of pain in my legs since we last saw each other. 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 PT-OP-D Balance Start: 05/09/18 14:41 Freq: Status: Active Protocol: Document 05/09/18 10:30 DCW (Rec: 05/09/18 15:07 DCW [id number]) OP-PT Balance Assessment Sitting Balance Static Sitting Balance Ability Normal Dynamic Sitting Balance Ability Normal Standing Balance Standing Balance Comments SLS: L=12 seconds, R=18 seconds Dao Fall Scale Copyright Permission Sylwia JM, Sylwia RM, Lisa SJ. Development of a scale to identify the fall- prone patient. Can J Aging 1989;8;366-7. Momo Dao (2009). Preventing patient falls. (2nd ed). [place]: [place]. PT-OP-F Manual Assessment Start: 05/09/18 15:08 Freq: Status: Active Protocol: Document 05/09/18 10:30 DCW (Rec: 05/09/18 15:09 DCW [id number]) Manual Assessments Joint Mobility Assessment Joint Mobility Assessment Left great toe minimal PROM into extension, less than 5 degrees. Decreased mobility likely impacts pt's foot pain while walking. PT-OP-M Strength Start: 05/09/18 14:41 Freq: Status: Active Protocol: Document 05/09/18 10:30 DCW (Rec: 05/09/18 15:07 DCW [id number]) Trunk Strength Trunk Manual Muscle Testing Core Stabilization Core Strength - pt holds double SLR ~5 seconds before fatigue, no complaints of low back pain, very large Diastasis recti with core contraction. MMT 4/5 Hip Strength Hip Manual Muscle Testing Right Flexion (L2) 4 Good Abduction 5 Normal Adduction 4 Good External Rotation 4 Good Internal Rotation 4 Good Left Flexion (L2) 4+ Good+ Abduction 5 Normal Adduction 4 Good External Rotation 4+ Good+ Internal Rotation 4+ Good+ Knee Strength Knee Manual Muscle Testing Right Flexion (S2) 4+ Good+ Extension (L3) 4+ Good+ Left Flexion (S2) 4+ Good+ Extension (L3) 4+ Good+ Ankle/Foot Strength Ankle and Foot Manual Muscle Testing Right Dorsiflexion (L4) 5 Normal Plantarflexion (S1) 4- Good- Left Dorsiflexion (L4) 5 Normal Plantarflexion (S1) 3+ Fair+ PT-OP-Q Treatments Start: 05/09/18 14:41 Freq: Status: Active Protocol: Document 06/15/18 12:00 DCW (Rec: 06/15/18 12:40 DCW [id number]) Cardio Equipment Recumbent Bicycle Duration (Minutes) 6 Resistance 10 Seat Position 11 Gym Equipment Shuttle Recovery Unilateral Squats Resistance 75# Shuttle Recovery Platform Stable Bilateral Squats Resistance 125# Shuttle Recovery Platform Unstable Shuttle Balance Red Details Wide MICHAEL (EO/EC, Perturbations ), Staggered Stance, Lateral weight-shift Therapeutic Ball Bridging /c T-ball Exercise Details Bridging /c feet on T-ball Ball Size/Color Red - 55 cm Body Position Supine Therapeutic Exercises Other Exercises Resisted Fwd/Retro Ambulation Other Exercise Name Resisted Forward/Backward Stepping Resistance Green Equipment Used T-band Resisted Side-stepping Other Exercise Name Resisted side-stepping Resistance Green Equipment Used T-band PT-OP-T Assessment and Plan Start: 05/09/18 14:41 Freq: Status: Active Protocol: Document 06/15/18 12:00 DCW (Rec: 06/15/18 12:40 DCW [id number]) Physical Therapy Assessment Impairments Impairments Activity Tolerance Balance Functional Mobility Pain Soft Tissue Mobility Strength Goals Five Impairment Decreased single leg balance Short Term Goal (STG) Pt to medical billing supervisor single leg stance for 25 seconds bilaterally. STG Duration 06/08/18 Four Impairment Strength Short Term Goal (STG) Core strength to 4+/5 STG Duration 06/08/19 Telescope Repairer Goal (LTG) Gross LE MMT to 4+/5 LTG Duration 07/09/18 Three Impairment Walking tolerance Telescope Repairer Goal (LTG) Pt to ambulate one mile with no increased foot pain LTG Duration 07/09/18 Two Impairment Floor transfers Telescope Repairer Goal (LTG) Pt to get off floor of workshop without use of objects to use UE to pull himself up LTG Duration 07/09/18 One Impairment Pt does not have appropriate home exercise program Short Term Goal (STG) Pt to be independent and compliant with an appropriate HEP STG Duration 06/08/18 Assessment Summary Assessment Pt did well after an extended break from therapy, although had increased complaints of knee pain. Physical Therapy Plan Frequency and Duration Frequency of Treatment 2x/Week Duration of Treatment Two months Plan of Care Start Date 05/09/18 Plan of Care End Date 07/09/18 Therapeutic Interventions Therapeutic Interventions Aquatic Therapy Balance Training Gait Training Home Exercise Program Joint Mobilizations Manual Therapy Soft Tissue Mobilization Therapeutic Activities Therapeutic Exercises Modalities Cold Pack/Ice Massage Electric Stimulation Hot Packs Ultrasound Next Visit Focus/Plan Next Note Type Treatment Note Next Visit Plan LE and core strengthening, balance training, joint mobs on great toe
--- NOTE | 2018-06-22 11:12 | PT.OTN ---
Current Diagnoses Arthropathic psoriasis, unspecified (06/22/18) Unilateral primary osteoarthritis, right knee (06/22/18) Physical Therapy Treatment Note PT-OP-A Visit Information Start: 05/09/18 14:41 Freq: Status: Active Protocol: Document 06/22/18 10:30 DCW (Rec: 06/22/18 11:12 DCW [id number]) Out-Patient Physical Therapy Visit Information Visit Information Visit Type Treatment Note Visit Start Time 10:30 Visit Stop Time 11:15 Total Visit Minutes 45 Visit Number 8 Number of DESKTOP TECHNICIAN Visits 0 Evaluation Information Evaluation Date 05/09/18 PT-OP-B Current Condition Start: 05/09/18 14:41 Freq: Status: Active Protocol: Document 05/09/18 10:30 DCW (Rec: 05/09/18 15:07 DCW [id number]) Current Condition History of Current Condition Onset Date Multi-year history Current Complaints R knee pain, LE and core weakness. History of Current Condition Pt is a 73 year old male presenting with right knee pain, LE weakness, and core weakness. Pt was scheduled for skilled PT for what was supposed to be s/p R TKA, however due to a kidney stone, pt reports his TKA surgery was blocked by a urologist, and he is now scheduled for a surgical removal of his kidney stone on 05/12/18. Since he was already wscheduled out with multiple PT appointments, however, he decided that it was a good opportunity to work on some leg and core strengthening before I did have my knee surgery, so he asked for a new referral to take advantage of his scheduled appointments. 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 Pt also notes that he can walk for miles with no leg trouble, but it causes his feet to get very sore. Future Testing and Treatments Planned R TKA Surgical removal of kidney stones 05/12/18 Treatment Goals Patient/Caregiver Goals Pt's goal is to get up off the floor easier, and to strengthen his legs prior to his TKA Prior Functional Status Baseline Function- ADL's Independent Baseline Function- Mobility Independent Current Functional Impairments (Reported) Functional Limitations- Recreation/ Difficulty getting up off Hobbies floor of workshop without something to hold on to, pain in feet with extended walking. 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 PT-OP-D Balance Start: 05/09/18 14:41 Freq: Status: Active Protocol: Document 05/09/18 10:30 DCW (Rec: 05/09/18 15:07 DCW [id number]) OP-PT Balance Assessment Sitting Balance Static Sitting Balance Ability Normal Dynamic Sitting Balance Ability Normal Standing Balance Standing Balance Comments SLS: L=12 seconds, R=18 seconds Dao Fall Scale Copyright Permission Sylwia GUZMAN, Sylwia RM, Lisa SJ. Development of a scale to identify the fall- prone patient. Can J Aging 1989;8;366-7. Momo Dao (2009). Preventing patient falls. (2nd ed). [place]: [place]. PT-OP-F Manual Assessment Start: 05/09/18 15:08 Freq: Status: Active Protocol: Document 05/09/18 10:30 DCW (Rec: 05/09/18 15:09 DCW [id number]) Manual Assessments Joint Mobility Assessment Joint Mobility Assessment Left great toe minimal PROM into extension, less than 5 degrees. Decreased mobility likely impacts pt's foot pain while walking. PT-OP-M Strength Start: 05/09/18 14:41 Freq: Status: Active Protocol: Document 05/09/18 10:30 DCW (Rec: 05/09/18 15:07 DCW [id number]) Trunk Strength Trunk Manual Muscle Testing Core Stabilization Core Strength - pt holds double SLR ~5 seconds before fatigue, no complaints of low back pain, very large Diastasis recti with core contraction. MMT 4/5 Hip Strength Hip Manual Muscle Testing Right Flexion (L2) 4 Good Abduction 5 Normal Adduction 4 Good External Rotation 4 Good Internal Rotation 4 Good Left Flexion (L2) 4+ Good+ Abduction 5 Normal Adduction 4 Good External Rotation 4+ Good+ Internal Rotation 4+ Good+ Knee Strength Knee Manual Muscle Testing Right Flexion (S2) 4+ Good+ Extension (L3) 4+ Good+ Left Flexion (S2) 4+ Good+ Extension (L3) 4+ Good+ Ankle/Foot Strength Ankle and Foot Manual Muscle Testing Right Dorsiflexion (L4) 5 Normal Plantarflexion (S1) 4- Good- Left Dorsiflexion (L4) 5 Normal Plantarflexion (S1) 3+ Fair+ PT-OP-Q Treatments Start: 05/09/18 14:41 Freq: Status: Active Protocol: Document 06/22/18 10:30 DCW (Rec: 06/22/18 11:12 DCW [id number]) Cardio Equipment Recumbent Bicycle Duration (Minutes) 6 Resistance 11 Seat Position 9 Gym Equipment Shuttle Recovery Unilateral Squats Resistance 75# Shuttle Recovery Platform Stable Bilateral Squats Resistance 125# Shuttle Recovery Platform Unstable Shuttle Balance Red Details Wide MICHAEL (EO/EC, Perturbations ), Staggered Stance, Lateral weight-shift Therapeutic Ball Bridging /c Hamstring Curls Exercise Details Bridging /c HS curls Ball Size/Color Red - 55 cm Body Position Supine Bridging /c T-ball Exercise Details Bridging /c feet on T-ball Ball Size/Color Red - 55 cm Body Position Supine Therapeutic Exercises Other Exercises Resisted Fwd/Retro Ambulation Other Exercise Name Resisted Forward/Backward Stepping Resistance Green Equipment Used T-band Resisted Side-stepping Other Exercise Name Resisted side-stepping Resistance Green Equipment Used T-band PT-OP-T Assessment and Plan Start: 05/09/18 14:41 Freq: Status: Active Protocol: Document 06/22/18 10:30 DCW (Rec: 06/22/18 11:12 DCW [id number]) Physical Therapy Assessment Impairments Impairments Activity Tolerance Balance Functional Mobility Pain Soft Tissue Mobility Strength Goals Five Impairment Decreased single leg balance Short Term Goal (STG) Pt to inspector missile single leg stance for 25 seconds bilaterally. STG Duration 06/08/18 Four Impairment Strength Short Term Goal (STG) Core strength to 4+/5 STG Duration 06/08/19 Long-Term Goal (LTG) Gross LE MMT to 4+/5 LTG Duration 07/09/18 Three Impairment Walking tolerance Long-Term Goal (LTG) Pt to ambulate one mile with no increased foot pain LTG Duration 07/09/18 Two Impairment Floor transfers Retail Pharmacy Technician Goal (LTG) Pt to get off floor of workshop without use of objects to use UE to pull himself up LTG Duration 07/09/18 One Impairment Pt does not have appropriate home exercise program Short Term Goal (STG) Pt to be independent and compliant with an appropriate HEP STG Duration 06/08/18 Assessment Summary Assessment Pt had no complaints of pain or difficulty, despite initial complaints of recent soreness . Physical Therapy Plan Frequency and Duration Frequency of Treatment 2x/Week Duration of Treatment Two months Plan of Care Start Date 05/09/18 Plan of Care End Date 07/09/18 Therapeutic Interventions Therapeutic Interventions Aquatic Therapy Balance Training Gait Training Home Exercise Program Joint Mobilizations Manual Therapy Soft Tissue Mobilization Therapeutic Activities Therapeutic Exercises Modalities Cold Pack/Ice Massage Electric Stimulation Hot Packs Ultrasound Next Visit Focus/Plan Next Note Type Treatment Note Next Visit Plan LE and core strengthening, balance training, joint mobs on great toe
--- NOTE | 2018-06-24 15:12 | PT.OTN ---
Current Diagnoses Arthropathic psoriasis, unspecified (06/24/18) Unilateral primary osteoarthritis, right knee (06/24/18) Physical Therapy Treatment Note PT-OP-A Visit Information Start: 05/09/18 14:41 Freq: Status: Active Protocol: Document 06/24/18 14:30 DCW (Rec: 06/24/18 15:12 DCW [id number]) Out-Patient Physical Therapy Visit Information Visit Information Visit Type Treatment Note Visit Start Time 14:30 Visit Stop Time 15:15 Total Visit Minutes 45 Visit Number 9 Number of SHOP TECHNICIAN Visits 0 Evaluation Information Evaluation Date 05/09/18 PT-OP-B Current Condition Start: 05/09/18 14:41 Freq: Status: Active Protocol: Document 05/09/18 10:30 DCW (Rec: 05/09/18 15:07 DCW [id number]) Current Condition History of Current Condition Onset Date Multi-year history Current Complaints R knee pain, LE and core weakness. History of Current Condition Pt is a 73 year old male presenting with right knee pain, LE weakness, and core weakness. Pt was scheduled for skilled PT for what was supposed to be s/p R TKA, however due to a kidney stone, pt reports his TKA surgery was blocked by a urologist, and he is now scheduled for a surgical removal of his kidney stone on 05/12/18. Since he was already wscheduled out with multiple PT appointments, however, he decided that it was a good opportunity to work on some leg and core strengthening before I did have my knee surgery, so he asked for a new referral to take advantage of his scheduled appointments. 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 Pt also notes that he can walk for miles with no leg trouble, but it causes his feet to get very sore. Future Testing and Treatments Planned R TKA Surgical removal of kidney stones 05/12/18 Treatment Goals Patient/Caregiver Goals Pt's goal is to get up off the floor easier, and to strengthen his legs prior to his TKA Prior Functional Status Baseline Function- ADL's Independent Baseline Function- Mobility Independent Current Functional Impairments (Reported) Functional Limitations- Recreation/ Difficulty getting up off Hobbies floor of workshop without something to hold on to, pain in feet with extended walking. PT-OP-C Subjective Start: 05/09/18 14:41 Freq: Status: Active Protocol: Document 06/24/18 14:30 DCW (Rec: 06/24/18 15:12 DCW [id number]) OP-PT Subjective Patient Comments Patient Comments Pt notes he has been able to work much longer hours in his workshop the past few days . Patient Reported Progress Improving PT-OP-D Balance Start: 05/09/18 14:41 Freq: Status: Active Protocol: Document 05/09/18 10:30 DCW (Rec: 05/09/18 15:07 DCW [id number]) OP-PT Balance Assessment Sitting Balance Static Sitting Balance Ability Normal Dynamic Sitting Balance Ability Normal Standing Balance Standing Balance Comments SLS: L=12 seconds, R=18 seconds Dao Fall Scale Copyright Permission Sylwia GUZMAN, Sylwia RM, Lisa SJ. Development of a scale to identify the fall- prone patient. Can J Aging 1989;8;366-7. Momo Dao (2009). Preventing patient falls. (2nd ed). [place]: [place]. PT-OP-F Manual Assessment Start: 05/09/18 15:08 Freq: Status: Active Protocol: Document 05/09/18 10:30 DCW (Rec: 05/09/18 15:09 DCW [id number]) Manual Assessments Joint Mobility Assessment Joint Mobility Assessment Left great toe minimal PROM into extension, less than 5 degrees. Decreased mobility likely impacts pt's foot pain while walking. PT-OP-M Strength Start: 05/09/18 14:41 Freq: Status: Active Protocol: Document 05/09/18 10:30 DCW (Rec: 05/09/18 15:07 DCW [id number]) Trunk Strength Trunk Manual Muscle Testing Core Stabilization Core Strength - pt holds double SLR ~5 seconds before fatigue, no complaints of low back pain, very large Diastasis recti with core contraction. MMT 4/5 Hip Strength Hip Manual Muscle Testing Right Flexion (L2) 4 Good Abduction 5 Normal Adduction 4 Good External Rotation 4 Good Internal Rotation 4 Good Left Flexion (L2) 4+ Good+ Abduction 5 Normal Adduction 4 Good External Rotation 4+ Good+ Internal Rotation 4+ Good+ Knee Strength Knee Manual Muscle Testing Right Flexion (S2) 4+ Good+ Extension (L3) 4+ Good+ Left Flexion (S2) 4+ Good+ Extension (L3) 4+ Good+ Ankle/Foot Strength Ankle and Foot Manual Muscle Testing Right Dorsiflexion (L4) 5 Normal Plantarflexion (S1) 4- Good- Left Dorsiflexion (L4) 5 Normal Plantarflexion (S1) 3+ Fair+ PT-OP-Q Treatments Start: 05/09/18 14:41 Freq: Status: Active Protocol: Document 06/24/18 14:30 DCW (Rec: 06/24/18 15:12 DCW [id number]) Cardio Equipment Recumbent Bicycle Duration (Minutes) 6 Resistance 11 Seat Position 9 Gym Equipment Shuttle Recovery Unilateral Squats Resistance 75# Shuttle Recovery Platform Stable Bilateral Squats Resistance 125# Shuttle Recovery Platform Unstable Shuttle Balance Red Details Wide MICHAEL (EO/EC, Perturbations ), Staggered Stance, Lateral weight-shift Therapeutic Ball Reverse Leg Press Exercise Details Hip/knee flexion vs T-band resistance /c feet on ball Ball Size/Color Red - 55 cm Lv 2 T-band Body Position Supine Bridging /c Hamstring Curls Exercise Details Bridging /c HS curls Ball Size/Color Red - 55 cm Body Position Supine Bridging /c T-ball Exercise Details Bridging /c feet on T-ball Ball Size/Color Red - 55 cm Body Position Supine Therapeutic Exercises Standing Exercises Hip Abduction Standing Exercise Name Hip abduction Side bilateral Resistance Green Equipment Used T-band Hip Extension Standing Exercise Name Standing hip extension Side bilateral Resistance Green Equipment Used T-band Other Exercises Resisted Fwd/Retro Ambulation Other Exercise Name Resisted Forward/Backward Stepping Resistance Green Equipment Used T-band Resisted Side-stepping Other Exercise Name Resisted side-stepping Resistance Green Equipment Used T-band PT-OP-T Assessment and Plan Start: 05/09/18 14:41 Freq: Status: Active Protocol: Document 06/24/18 14:30 DCW (Rec: 06/24/18 15:12 DCW [id number]) Physical Therapy Assessment Impairments Impairments Activity Tolerance Balance Functional Mobility Pain Soft Tissue Mobility Strength Goals Five Impairment Decreased single leg balance Short Term Goal (STG) Pt to inspector assembly single leg stance for 25 seconds bilaterally. STG Duration 06/08/18 Four Impairment Strength Short Term Goal (STG) Core strength to 4+/5 STG Duration 12/5/19 Snow Ranger Goal (LTG) Gross LE MMT to 4+/5 LTG Duration 07/09/18 Three Impairment Walking tolerance Nursing Home Goal (LTG) Pt to ambulate one mile with no increased foot pain LTG Duration 07/09/18 Two Impairment Floor transfers Nursing Home Goal (LTG) Pt to get off floor of workshop without use of objects to use UE to pull himself up LTG Duration 07/09/18 One Impairment Pt does not have appropriate home exercise program Short Term Goal (STG) Pt to be independent and compliant with an appropriate HEP STG Duration 06/08/18 Assessment Summary Assessment Pt still doing well, although beginning to talk more about officially scheduling a TKA soon. Physical Therapy Plan Frequency and Duration Frequency of Treatment 2x/Week Duration of Treatment Two months Plan of Care Start Date 05/09/18 Plan of Care End Date 07/09/18 Therapeutic Interventions Therapeutic Interventions Aquatic Therapy Balance Training Gait Training Home Exercise Program Joint Mobilizations Manual Therapy Soft Tissue Mobilization Therapeutic Activities Therapeutic Exercises Modalities Cold Pack/Ice Massage Electric Stimulation Hot Packs Ultrasound Next Visit Focus/Plan Next Note Type Progress Note Next Visit Plan 10th visit G-codes
--- NOTE | 2018-06-30 11:15 | PT.OTN ---
Current Diagnoses Arthropathic psoriasis, unspecified (06/30/18) Unilateral primary osteoarthritis, right knee (06/30/18) Physical Therapy Treatment Note PT-OP-A Visit Information Start: 05/09/18 14:41 Freq: Status: Active Protocol: Document 06/30/18 10:30 DCW (Rec: 06/30/18 11:15 DCW [id number]) Out-Patient Physical Therapy Visit Information Visit Information Visit Type Progress Note Visit Start Time 10:30 Visit Stop Time 11:15 Total Visit Minutes 45 Visit Number 10 Number of BECK TENDER Visits 0 Evaluation Information Evaluation Date 05/09/18 PT-OP-B Current Condition Start: 05/09/18 14:41 Freq: Status: Active Protocol: Document 05/09/18 10:30 DCW (Rec: 05/09/18 15:07 DCW [id number]) Current Condition History of Current Condition Onset Date Multi-year history Current Complaints R knee pain, LE and core weakness. History of Current Condition Pt is a 73 year old male presenting with right knee pain, LE weakness, and core weakness. Pt was scheduled for skilled PT for what was supposed to be s/p R TKA, however due to a kidney stone, pt reports his TKA surgery was blocked by a urologist, and he is now scheduled for a surgical removal of his kidney stone on 05/12/18. Since he was already wscheduled out with multiple PT appointments, however, he decided that it was a good opportunity to work on some leg and core strengthening before I did have my knee surgery, so he asked for a new referral to take advantage of his scheduled appointments. 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 Pt also notes that he can walk for miles with no leg trouble, but it causes his feet to get very sore. Future Testing and Treatments Planned R TKA Surgical removal of kidney stones 05/12/18 Treatment Goals Patient/Caregiver Goals Pt's goal is to get up off the floor easier, and to strengthen his legs prior to his TKA Prior Functional Status Baseline Function- ADL's Independent Baseline Function- Mobility Independent Current Functional Impairments (Reported) Functional Limitations- Recreation/ Difficulty getting up off Hobbies floor of workshop without something to hold on to, pain in feet with extended walking. 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 PT-OP-D Balance Start: 05/09/18 14:41 Freq: Status: Active Protocol: Document 06/30/18 10:30 DCW (Rec: 06/30/18 10:49 DCW [id number]) OP-PT Balance Assessment Standing Balance Standing Balance Comments SLS: L=25 seconds, R=21 seconds Dao Fall Scale Copyright Permission Sylwia GUZMAN, Sylwia RM, Lisa SJ. Development of a scale to identify the fall- prone patient. Can J Aging 1989;8;366-7. Momo Dao (2009). Preventing patient falls. (2nd ed). [place]: [place]. PT-OP-F Manual Assessment Start: 05/09/18 15:08 Freq: Status: Active Protocol: Document 06/30/18 10:30 DCW (Rec: 06/30/18 10:49 DCW [id number]) Manual Assessments Joint Mobility Assessment Joint Mobility Assessment Left great toe PROM extension to 15 degrees. PT-OP-M Strength Start: 05/09/18 14:41 Freq: Status: Active Protocol: Document 06/30/18 10:30 DCW (Rec: 06/30/18 10:49 DCW [id number]) Trunk Strength Trunk Manual Muscle Testing Core Stabilization Core Strength - pt holds double SLR 15 seconds before fatigue, no complaints of low back pain, very large Diastasis recti with core contraction. MMT 4+/5 Hip Strength Hip Manual Muscle Testing Right Flexion (L2) 4+ Good+ Abduction 5 Normal Adduction 5 Normal External Rotation 5 Normal Internal Rotation 5 Normal Left Flexion (L2) 5 Normal Abduction 5 Normal Adduction 5 Normal External Rotation 5 Normal Internal Rotation 5 Normal Knee Strength Knee Manual Muscle Testing Right Flexion (S2) 5 Normal Extension (L3) 5 Normal Left Flexion (S2) 5 Normal Extension (L3) 5 Normal Ankle/Foot Strength Ankle and Foot Manual Muscle Testing Right Dorsiflexion (L4) 5 Normal Plantarflexion (S1) 4 Good Left Dorsiflexion (L4) 5 Normal Plantarflexion (S1) 4- Good- PT-OP-Q Treatments Start: 05/09/18 14:41 Freq: Status: Active Protocol: Document 06/30/18 10:30 DCW (Rec: 06/30/18 11:15 DCW [id number]) Gym Equipment Shuttle Recovery Unilateral Squats Resistance 75# Shuttle Recovery Platform Stable Bilateral Squats Resistance 125# Shuttle Recovery Platform Unstable Shuttle Balance Red Details Wide MICHAEL (EO/EC, Perturbations ), Staggered Stance, Lateral weight-shift Therapeutic Ball Bridging /c Hamstring Curls Exercise Details Bridging /c HS curls Ball Size/Color Red - 55 cm Body Position Supine Manual Therapy Treatment Other Other Manual Treatments MMT, ROM, SLS testing PT-OP-T Assessment and Plan Start: 05/09/18 14:41 Freq: Status: Active Protocol: Document 06/30/18 10:30 DCW (Rec: 06/30/18 11:15 DCW [id number]) Physical Therapy Assessment Impairments Impairments Activity Tolerance Balance Functional Mobility Pain Soft Tissue Mobility Strength Goals Five Impairment Decreased single leg balance Short Term Goal (STG) Pt to nurse coordinator single leg stance for 25 seconds bilaterally. STG Duration 08/31/18 - Improving Four Impairment Strength Short Term Goal (STG) Core strength to 4+/5 STG Duration Met Sleeve Turner Goal (LTG) Gross LE MMT to 4+/5 LTG Duration 08/31/18 - Improving Three Impairment Walking tolerance Sleeve Turner Goal (LTG) Pt to ambulate one mile with no increased foot pain LTG Duration 08/31/18 Two Impairment Floor transfers Sleeve Turner Goal (LTG) Pt to get off floor of workshop without use of objects to use UE to pull himself up LTG Duration 08/31/18 One Impairment Pt does not have appropriate home exercise program Short Term Goal (STG) Pt to be independent and compliant with an appropriate HEP STG Duration Met Assessment Summary Assessment Pt showing progress in all tests and measures, unfortunately pt continues to struggle getting up off the floor of his workshop and reports increased soreness after working. PT has noted an increased amount of time he is able to spend in his shop without taking a break. Pt should continue to benefit from skilled therapy focusing on improving activity tolerance, strtength, and joint mobility. Physical Therapy Plan Frequency and Duration Frequency of Treatment 2x/Week Duration of Treatment Two months Plan of Care Start Date 06/30/18 Plan of Care End Date 08/31/18 Therapeutic Interventions Therapeutic Interventions Aquatic Therapy Balance Training Gait Training Home Exercise Program Joint Mobilizations Manual Therapy Soft Tissue Mobilization Therapeutic Activities Therapeutic Exercises Modalities Cold Pack/Ice Massage Electric Stimulation Hot Packs Ultrasound Next Visit Focus/Plan Next Note Type Progress Note Next Visit Plan 10th visit G-codes
--- NOTE | 2018-06-30 11:15 | PT.OPPOC ---
Current Diagnoses Arthropathic psoriasis, unspecified (06/30/18) Unilateral primary osteoarthritis, right knee (06/30/18) Provider Visit Care Team Role Provider Type Kavita Aranda MD Family Provider Non-Staff Primary Care Provider Specialty: Internal Medicine Address: [id number] [place] [address], [address], [place], [address] Email: Franck Ugarte MD Attending Provider Non-Staff Specialty: Internal Medicine Address: [address] [place] [address], [address], [place], [address] Email: Plan Of Care PT-OP-T Assessment and Plan Start: 05/09/18 14:41 Freq: Status: Active Protocol: Document 06/30/18 10:30 DCW (Rec: 06/30/18 11:15 DCW [id number]) Physical Therapy Assessment Impairments Impairments Activity Tolerance Balance Functional Mobility Pain Soft Tissue Mobility Strength Goals Five Impairment Decreased single leg balance Short Term Goal (STG) Pt to manager user interface single leg stance for 25 seconds bilaterally. STG Duration 08/31/18 - Improving Four Impairment Strength Short Term Goal (STG) Core strength to 4+/5 STG Duration Met Industrial Technology Teacher Goal (LTG) Gross LE MMT to 4+/5 LTG Duration 08/31/18 - Improving Three Impairment Walking tolerance Senior Living Goal (LTG) Pt to ambulate one mile with no increased foot pain LTG Duration 08/31/18 Two Impairment Floor transfers Senior Living Goal (LTG) Pt to get off floor of workshop without use of objects to use UE to pull himself up LTG Duration 08/31/18 One Impairment Pt does not have appropriate home exercise program Short Term Goal (STG) Pt to be independent and compliant with an appropriate HEP STG Duration Met Assessment Summary Assessment Pt showing progress in all tests and measures, unfortunately pt continues to struggle getting up off the floor of his workshop and reports increased soreness after working. PT has noted an increased amount of time he is able to spend in his shop without taking a break. Pt should continue to benefit from skilled therapy focusing on improving activity tolerance, strength, and joint mobility. Physical Therapy Plan Frequency and Duration Frequency of Treatment 2x/Week Duration of Treatment Two months Plan of Care Start Date 06/30/18 Plan of Care End Date 08/31/18 Therapeutic Interventions Therapeutic Interventions Aquatic Therapy Balance Training Gait Training Home Exercise Program Joint Mobilizations Manual Therapy Soft Tissue Mobilization Therapeutic Activities Therapeutic Exercises Modalities Cold Pack/Ice Massage Electric Stimulation Hot Packs Ultrasound Next Visit Focus/Plan Next Note Type Progress Note Next Visit Plan 10th visit G-codes Plan of Care Dates Plan of Care Start Date 06/30/18 Plan of Care End Date 08/31/18 Please Sign and Return: I have reviewed this Plan of Care and certify that the skilled therapy services above are required to meet the patient?s needs. Physician Signature Date Printed Name and Credentials Clinical Instructor Signature Printed Name and Credentials
--- NOTE | 2018-07-06 11:12 | PT.OTN ---
Current Diagnoses Arthropathic psoriasis, unspecified (07/06/18) Unilateral primary osteoarthritis, right knee (07/06/18) Physical Therapy Treatment Note PT-OP-A Visit Information Start: 05/09/18 14:41 Freq: Status: Active Protocol: Document 07/06/18 10:30 DCW (Rec: 07/06/18 11:11 DCW [id number]) Out-Patient Physical Therapy Visit Information Visit Information Visit Type Treatment Note Visit Start Time 10:30 Visit Stop Time 11:15 Total Visit Minutes 45 Visit Number 11 Number of GAS USAGE METER CLERK Visits 0 Evaluation Information Evaluation Date 05/09/18 PT-OP-B Current Condition Start: 05/09/18 14:41 Freq: Status: Active Protocol: Document 05/09/18 10:30 DCW (Rec: 05/09/18 15:07 DCW [id number]) Current Condition History of Current Condition Onset Date Multi-year history Current Complaints R knee pain, LE and core weakness. History of Current Condition Pt is a 73 year old male presenting with right knee pain, LE weakness, and core weakness. Pt was scheduled for skilled PT for what was supposed to be s/p R TKA, however due to a kidney stone, pt reports his TKA surgery was blocked by a urologist, and he is now scheduled for a surgical removal of his kidney stone on 05/12/18. Since he was already wscheduled out with multiple PT appointments, however, he decided that it was a good opportunity to work on some leg and core strengthening before I did have my knee surgery, so he asked for a new referral to take advantage of his scheduled appointments. 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 Pt also notes that he can walk for miles with no leg trouble, but it causes his feet to get very sore. Future Testing and Treatments Planned R TKA Surgical removal of kidney stones 05/12/18 Treatment Goals Patient/Caregiver Goals Pt's goal is to get up off the floor easier, and to strengthen his legs prior to his TKA Prior Functional Status Baseline Function- ADL's Independent Baseline Function- Mobility Independent Current Functional Impairments (Reported) Functional Limitations- Recreation/ Difficulty getting up off Hobbies floor of workshop without something to hold on to, pain in feet with extended walking. PT-OP-C Subjective Start: 05/09/18 14:41 Freq: Status: Active Protocol: Document 07/06/18 10:30 DCW (Rec: 07/06/18 11:11 DCW [id number]) OP-PT Subjective Patient Comments Patient Comments Pt reports he that he doesn't really know yet how the knee is feeling today. Pt does note that he has been having trouble sleeping due to RLS, and mornings have been rough, but after taking a sleeping pill last night, he felt pretty good. PT-OP-D Balance Start: 05/09/18 14:41 Freq: Status: Active Protocol: Document 06/30/18 10:30 DCW (Rec: 06/30/18 10:49 DCW [id number]) OP-PT Balance Assessment Standing Balance Standing Balance Comments SLS: L=25 seconds, R=21 seconds Dao Fall Scale Copyright Permission Sylwia GUZMAN, Sylwia RM, Lisa SJ. Development of a scale to identify the fall- prone patient. Can J Aging 1989;8;366-7. Momo Dao (2009). Preventing patient falls. (2nd ed). [place]: [place]. PT-OP-F Manual Assessment Start: 05/09/18 15:08 Freq: Status: Active Protocol: Document 06/30/18 10:30 DCW (Rec: 06/30/18 10:49 DCW [id number]) Manual Assessments Joint Mobility Assessment Joint Mobility Assessment Left great toe PROM extension to 15 degrees. PT-OP-M Strength Start: 05/09/18 14:41 Freq: Status: Active Protocol: Document 06/30/18 10:30 DCW (Rec: 06/30/18 10:49 DCW [id number]) Trunk Strength Trunk Manual Muscle Testing Core Stabilization Core Strength - pt holds double SLR 15 seconds before fatigue, no complaints of low back pain, very large Diastasis recti with core contraction. MMT 4+/5 Hip Strength Hip Manual Muscle Testing Right Flexion (L2) 4+ Good+ Abduction 5 Normal Adduction 5 Normal External Rotation 5 Normal Internal Rotation 5 Normal Left Flexion (L2) 5 Normal Abduction 5 Normal Adduction 5 Normal External Rotation 5 Normal Internal Rotation 5 Normal Knee Strength Knee Manual Muscle Testing Right Flexion (S2) 5 Normal Extension (L3) 5 Normal Left Flexion (S2) 5 Normal Extension (L3) 5 Normal Ankle/Foot Strength Ankle and Foot Manual Muscle Testing Right Dorsiflexion (L4) 5 Normal Plantarflexion (S1) 4 Good Left Dorsiflexion (L4) 5 Normal Plantarflexion (S1) 4- Good- PT-OP-Q Treatments Start: 05/09/18 14:41 Freq: Status: Active Protocol: Document 07/06/18 10:30 DCW (Rec: 07/06/18 11:11 DCW [id number]) Cardio Equipment Recumbent Bicycle Duration (Minutes) 6 Resistance 11 Seat Position 9 Gym Equipment Shuttle Recovery Unilateral Squats Resistance 75# Shuttle Recovery Platform Stable Bilateral Squats Resistance 125# Shuttle Recovery Platform Unstable Shuttle Balance Red Details Wide MICHAEL (EO/EC, Perturbations ), Staggered Stance, Lateral weight-shift Therapeutic Ball Bridging /c Hamstring Curls Exercise Details Bridging /c HS curls Ball Size/Color Red - 55 cm Body Position Supine Therapeutic Exercises Other Exercises Resisted Fwd/Retro Ambulation Other Exercise Name Resisted Forward/Backward Stepping Resistance Green Equipment Used T-band Resisted Side-stepping Other Exercise Name Resisted side-stepping Resistance Green Equipment Used T-band PT-OP-T Assessment and Plan Start: 05/09/18 14:41 Freq: Status: Active Protocol: Document 07/06/18 10:30 DCW (Rec: 07/06/18 11:11 DCW [id number]) Physical Therapy Assessment Impairments Impairments Activity Tolerance Balance Functional Mobility Pain Soft Tissue Mobility Strength Goals Five Impairment Decreased single leg balance Short Term Goal (STG) Pt to receiving clerk single leg stance for 25 seconds bilaterally. STG Duration 08/31/18 - Improving Four Impairment Strength Short Term Goal (STG) Core strength to 4+/5 STG Duration Met Fdc Goal (LTG) Gross LE MMT to 4+/5 LTG Duration 08/31/18 - Improving Three Impairment Walking tolerance Fdc Goal (LTG) Pt to ambulate one mile with no increased foot pain LTG Duration 08/31/18 Two Impairment Floor transfers Fdc Goal (LTG) Pt to get off floor of workshop without use of objects to use UE to pull himself up LTG Duration 08/31/18 One Impairment Pt does not have appropriate home exercise program Short Term Goal (STG) Pt to be independent and compliant with an appropriate HEP STG Duration Met Assessment Summary Assessment Pt improving tolerance to TherEx, able to complete tasks with less fatigue. Physical Therapy Plan Frequency and Duration Frequency of Treatment 2x/Week Duration of Treatment Two months Plan of Care Start Date 06/30/18 Plan of Care End Date 08/31/18 Therapeutic Interventions Therapeutic Interventions Aquatic Therapy Balance Training Gait Training Home Exercise Program Joint Mobilizations Manual Therapy Soft Tissue Mobilization Therapeutic Activities Therapeutic Exercises Modalities Cold Pack/Ice Massage Electric Stimulation Hot Packs Ultrasound Next Visit Focus/Plan Next Note Type Treatment Note Next Visit Plan Continue ongoing POC
--- NOTE | 2018-07-08 11:14 | PT.OTN ---
Current Diagnoses Arthropathic psoriasis, unspecified (07/08/18) Unilateral primary osteoarthritis, right knee (07/08/18) Physical Therapy Treatment Note PT-OP-A Visit Information Start: 05/09/18 14:41 Freq: Status: Active Protocol: Document 07/08/18 10:30 DCW (Rec: 07/08/18 11:14 DCW [id number]) Out-Patient Physical Therapy Visit Information Visit Information Visit Type Treatment Note Visit Start Time 10:30 Visit Stop Time 11:15 Total Visit Minutes 45 Visit Number 12 Number of MACHINE STONECUTTER Visits 0 Evaluation Information Evaluation Date 05/09/18 PT-OP-B Current Condition Start: 05/09/18 14:41 Freq: Status: Active Protocol: Document 05/09/18 10:30 DCW (Rec: 05/09/18 15:07 DCW [id number]) Current Condition History of Current Condition Onset Date Multi-year history Current Complaints R knee pain, LE and core weakness. History of Current Condition Pt is a 73 year old male presenting with right knee pain, LE weakness, and core weakness. Pt was scheduled for skilled PT for what was supposed to be s/p R TKA, however due to a kidney stone, pt reports his TKA surgery was blocked by a urologist, and he is now scheduled for a surgical removal of his kidney stone on 05/12/18. Since he was already wscheduled out with multiple PT appointments, however, he decided that it was a good opportunity to work on some leg and core strengthening before I did have my knee surgery, so he asked for a new referral to take advantage of his scheduled appointments. 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 Pt also notes that he can walk for miles with no leg trouble, but it causes his feet to get very sore. Future Testing and Treatments Planned R TKA Surgical removal of kidney stones 05/12/18 Treatment Goals Patient/Caregiver Goals Pt's goal is to get up off the floor easier, and to strengthen his legs prior to his TKA Prior Functional Status Baseline Function- ADL's Independent Baseline Function- Mobility Independent Current Functional Impairments (Reported) Functional Limitations- Recreation/ Difficulty getting up off Hobbies floor of workshop without something to hold on to, pain in feet with extended walking. PT-OP-C Subjective Start: 05/09/18 14:41 Freq: Status: Active Protocol: Document 07/08/18 10:30 DCW (Rec: 07/08/18 11:14 DCW [id number]) OP-PT Subjective Patient Comments Patient Comments Pt reports that his knee is a little bothersome today, but it's early yet, so I don't really know. PT-OP-D Balance Start: 05/09/18 14:41 Freq: Status: Active Protocol: Document 06/30/18 10:30 DCW (Rec: 06/30/18 10:49 DCW [id number]) OP-PT Balance Assessment Standing Balance Standing Balance Comments SLS: L=25 seconds, R=21 seconds Dao Fall Scale Copyright Permission Sylwia GUZMAN, Sylwia RM, Lisa SJ. Development of a scale to identify the fall- prone patient. Can J Aging 1989;8;366-7. Momo Dao (2009). Preventing patient falls. (2nd ed). [place]: [place]. PT-OP-F Manual Assessment Start: 05/09/18 15:08 Freq: Status: Active Protocol: Document 06/30/18 10:30 DCW (Rec: 06/30/18 10:49 DCW [id number]) Manual Assessments Joint Mobility Assessment Joint Mobility Assessment Left great toe PROM extension to 15 degrees. PT-OP-M Strength Start: 05/09/18 14:41 Freq: Status: Active Protocol: Document 06/30/18 10:30 DCW (Rec: 06/30/18 10:49 DCW [id number]) Trunk Strength Trunk Manual Muscle Testing Core Stabilization Core Strength - pt holds double SLR 15 seconds before fatigue, no complaints of low back pain, very large Diastasis recti with core contraction. MMT 4+/5 Hip Strength Hip Manual Muscle Testing Right Flexion (L2) 4+ Good+ Abduction 5 Normal Adduction 5 Normal External Rotation 5 Normal Internal Rotation 5 Normal Left Flexion (L2) 5 Normal Abduction 5 Normal Adduction 5 Normal External Rotation 5 Normal Internal Rotation 5 Normal Knee Strength Knee Manual Muscle Testing Right Flexion (S2) 5 Normal Extension (L3) 5 Normal Left Flexion (S2) 5 Normal Extension (L3) 5 Normal Ankle/Foot Strength Ankle and Foot Manual Muscle Testing Right Dorsiflexion (L4) 5 Normal Plantarflexion (S1) 4 Good Left Dorsiflexion (L4) 5 Normal Plantarflexion (S1) 4- Good- PT-OP-Q Treatments Start: 05/09/18 14:41 Freq: Status: Active Protocol: Document 07/08/18 10:30 DCW (Rec: 07/08/18 11:14 DCW [id number]) Cardio Equipment Recumbent Bicycle Duration (Minutes) 6 Resistance 11 Seat Position 9 Gym Equipment Shuttle Recovery Unilateral Squats Resistance 75# Shuttle Recovery Platform Stable Bilateral Squats Resistance 125# Shuttle Recovery Platform Unstable Shuttle Balance Red Details Wide MICHAEL (EO/EC, Perturbations ), Staggered Stance, Lateral weight-shift Therapeutic Ball Reverse Leg Press Exercise Details Hip/knee flexion vs T-band resistance /c feet on ball Ball Size/Color Red - 55 cm Lv 2 T-band Body Position Supine Therapeutic Exercises Standing Exercises Lunges Standing Exercise Name Lunge-kneel onto stacked pads Side bilateral Equipment Used 2 blue/1 black Other Exercises Resisted Fwd/Retro Ambulation Other Exercise Name Resisted Forward/Backward Stepping Resistance Green Equipment Used T-band Resisted Side-stepping Other Exercise Name Resisted side-stepping Resistance Green Equipment Used T-band Neuro Re-Education Treatment Balance Activities Staggered Stance Details Staggered stance on foam Surface Blue foam PT-OP-T Assessment and Plan Start: 05/09/18 14:41 Freq: Status: Active Protocol: Document 07/08/18 10:30 DCW (Rec: 07/08/18 11:14 DCW [id number]) Physical Therapy Assessment Impairments Impairments Activity Tolerance Balance Functional Mobility Pain Soft Tissue Mobility Strength Goals Five Impairment Decreased single leg balance Short Term Goal (STG) Pt to nursing coordinator single leg stance for 25 seconds bilaterally. STG Duration 08/31/18 - Improving Four Impairment Strength Short Term Goal (STG) Core strength to 4+/5 STG Duration Met Mcfp Goal (LTG) Gross LE MMT to 4+/5 LTG Duration 08/31/18 - Improving Three Impairment Walking tolerance Beater Lead Goal (LTG) Pt to ambulate one mile with no increased foot pain LTG Duration 08/31/18 Two Impairment Floor transfers Mcfp Goal (LTG) Pt to get off floor of workshop without use of objects to use UE to pull himself up LTG Duration 08/31/18 One Impairment Pt does not have appropriate home exercise program Short Term Goal (STG) Pt to be independent and compliant with an appropriate HEP STG Duration Met Assessment Summary Assessment Pt had difficulty with lunges today, should continue to focus on lunges and other functional movements for LE strengthening. Physical Therapy Plan Frequency and Duration Frequency of Treatment 2x/Week Duration of Treatment Two months Plan of Care Start Date 06/30/18 Plan of Care End Date 08/31/18 Therapeutic Interventions Therapeutic Interventions Aquatic Therapy Balance Training Gait Training Home Exercise Program Joint Mobilizations Manual Therapy Soft Tissue Mobilization Therapeutic Activities Therapeutic Exercises Modalities Cold Pack/Ice Massage Electric Stimulation Hot Packs Ultrasound Next Visit Focus/Plan Next Note Type Treatment Note Next Visit Plan Continue ongoing POC
--- NOTE | 2018-07-13 11:16 | PT.OTN ---
Current Diagnoses Arthropathic psoriasis, unspecified (07/13/18) Unilateral primary osteoarthritis, right knee (07/13/18) Physical Therapy Treatment Note PT-OP-A Visit Information Start: 05/09/18 14:41 Freq: Status: Active Protocol: Document 07/13/18 10:30 DCW (Rec: 07/13/18 11:16 DCW [id number]) Out-Patient Physical Therapy Visit Information Visit Information Visit Type Treatment Note Visit Start Time 10:30 Visit Stop Time 11:15 Total Visit Minutes 45 Visit Number 13 Number of NET APPLICATION ARCHITECT Visits 0 Evaluation Information Evaluation Date 05/09/18 PT-OP-B Current Condition Start: 05/09/18 14:41 Freq: Status: Active Protocol: Document 05/09/18 10:30 DCW (Rec: 05/09/18 15:07 DCW [id number]) Current Condition History of Current Condition Onset Date Multi-year history Current Complaints R knee pain, LE and core weakness. History of Current Condition Pt is a 73 year old male presenting with right knee pain, LE weakness, and core weakness. Pt was scheduled for skilled PT for what was supposed to be s/p R TKA, however due to a kidney stone, pt reports his TKA surgery was blocked by a urologist, and he is now scheduled for a surgical removal of his kidney stone on 05/12/18. Since he was already wscheduled out with multiple PT appointments, however, he decided that it was a good opportunity to work on some leg and core strengthening before I did have my knee surgery, so he asked for a new referral to take advantage of his scheduled appointments. 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 Pt also notes that he can walk for miles with no leg trouble, but it causes his feet to get very sore. Future Testing and Treatments Planned R TKA Surgical removal of kidney stones 05/12/18 Treatment Goals Patient/Caregiver Goals Pt's goal is to get up off the floor easier, and to strengthen his legs prior to his TKA Prior Functional Status Baseline Function- ADL's Independent Baseline Function- Mobility Independent Current Functional Impairments (Reported) Functional Limitations- Recreation/ Difficulty getting up off Hobbies floor of workshop without something to hold on to, pain in feet with extended walking. PT-OP-C Subjective Start: 05/09/18 14:41 Freq: Status: Active Protocol: Document 07/13/18 10:30 DCW (Rec: 07/13/18 11:16 DCW [id number]) OP-PT Subjective Patient Comments Patient Comments Yesterday, I felt much better , like this is making a significant difference. I felt more like I did a few years ago, so this is working PT-OP-D Balance Start: 05/09/18 14:41 Freq: Status: Active Protocol: Document 06/30/18 10:30 DCW (Rec: 06/30/18 10:49 DCW [id number]) OP-PT Balance Assessment Standing Balance Standing Balance Comments SLS: L=25 seconds, R=21 seconds Dao Fall Scale Copyright Permission Sylwia GUZMAN, Sylwia RM, Lisa SJ. Development of a scale to identify the fall- prone patient. Can J Aging 1989;8;366-7. Momo Dao (2009). Preventing patient falls. (2nd ed). [place]: [place]. PT-OP-F Manual Assessment Start: 05/09/18 15:08 Freq: Status: Active Protocol: Document 06/30/18 10:30 DCW (Rec: 06/30/18 10:49 DCW [id number]) Manual Assessments Joint Mobility Assessment Joint Mobility Assessment Left great toe PROM extension to 15 degrees. PT-OP-M Strength Start: 05/09/18 14:41 Freq: Status: Active Protocol: Document 06/30/18 10:30 DCW (Rec: 06/30/18 10:49 DCW [id number]) Trunk Strength Trunk Manual Muscle Testing Core Stabilization Core Strength - pt holds double SLR 15 seconds before fatigue, no complaints of low back pain, very large Diastasis recti with core contraction. MMT 4+/5 Hip Strength Hip Manual Muscle Testing Right Flexion (L2) 4+ Good+ Abduction 5 Normal Adduction 5 Normal External Rotation 5 Normal Internal Rotation 5 Normal Left Flexion (L2) 5 Normal Abduction 5 Normal Adduction 5 Normal External Rotation 5 Normal Internal Rotation 5 Normal Knee Strength Knee Manual Muscle Testing Right Flexion (S2) 5 Normal Extension (L3) 5 Normal Left Flexion (S2) 5 Normal Extension (L3) 5 Normal Ankle/Foot Strength Ankle and Foot Manual Muscle Testing Right Dorsiflexion (L4) 5 Normal Plantarflexion (S1) 4 Good Left Dorsiflexion (L4) 5 Normal Plantarflexion (S1) 4- Good- PT-OP-Q Treatments Start: 05/09/18 14:41 Freq: Status: Active Protocol: Document 07/13/18 10:30 DCW (Rec: 07/13/18 11:16 DCW [id number]) Cardio Equipment Recumbent Bicycle Duration (Minutes) 6 Resistance 10 Seat Position 11 Gym Equipment Shuttle Recovery Unilateral Squats Resistance 75# Shuttle Recovery Platform Stable Bilateral Squats Resistance 125# Shuttle Recovery Platform Unstable Shuttle Balance Red Details Wide MICHAEL (EO/EC, Perturbations ), Staggered Stance, Lateral weight-shift Therapeutic Ball Reverse Leg Press Exercise Details Hip/knee flexion vs T-band resistance /c feet on ball Ball Size/Color Red - 55 cm Lv 2 T-band Body Position Supine Bridging /c Hamstring Curls Exercise Details Bridging /c HS curls Ball Size/Color Red - 55 cm Body Position Supine Therapeutic Exercises Other Exercises Resisted Fwd/Retro Ambulation Other Exercise Name Resisted Forward/Backward Stepping Resistance Green Equipment Used T-band Resisted Side-stepping Other Exercise Name Resisted side-stepping Resistance Green Equipment Used T-band Neuro Re-Education Treatment Balance Activities Romberg Stance Details Romberg on BOSU Surface Blue BOSU PT-OP-T Assessment and Plan Start: 05/09/18 14:41 Freq: Status: Active Protocol: Document 07/13/18 10:30 DCW (Rec: 07/13/18 11:16 DCW [id number]) Physical Therapy Assessment Impairments Impairments Activity Tolerance Balance Functional Mobility Pain Soft Tissue Mobility Strength Goals Five Impairment Decreased single leg balance Short Term Goal (STG) Pt to educational technology coordinator single leg stance for 25 seconds bilaterally. STG Duration 08/31/18 - Improving Four Impairment Strength Short Term Goal (STG) Core strength to 4+/5 STG Duration Met Cereal Supervisor Goal (LTG) Gross LE MMT to 4+/5 LTG Duration 08/31/18 - Improving Three Impairment Walking tolerance Cereal Supervisor Goal (LTG) Pt to ambulate one mile with no increased foot pain LTG Duration 08/31/18 Two Impairment Floor transfers Usp Goal (LTG) Pt to get off floor of workshop without use of objects to use UE to pull himself up LTG Duration 08/31/18 One Impairment Pt does not have appropriate home exercise program Short Term Goal (STG) Pt to be independent and compliant with an appropriate HEP STG Duration Met Assessment Summary Assessment Pt displaying improvement in general balance, especially standing on the Shuttle Balance Physical Therapy Plan Frequency and Duration Frequency of Treatment 2x/Week Duration of Treatment Two months Plan of Care Start Date 06/30/18 Plan of Care End Date 08/31/18 Therapeutic Interventions Therapeutic Interventions Aquatic Therapy Balance Training Gait Training Home Exercise Program Joint Mobilizations Manual Therapy Soft Tissue Mobilization Therapeutic Activities Therapeutic Exercises Modalities Cold Pack/Ice Massage Electric Stimulation Hot Packs Ultrasound Next Visit Focus/Plan Next Note Type Treatment Note Next Visit Plan Continue ongoing POC
--- NOTE | 2018-07-15 11:21 | PT.OTN ---
Current Diagnoses Arthropathic psoriasis, unspecified (07/15/18) Unilateral primary osteoarthritis, right knee (07/15/18) Physical Therapy Treatment Note PT-OP-A Visit Information Start: 05/09/18 14:41 Freq: Status: Active Protocol: Document 07/15/18 10:30 DCW (Rec: 07/15/18 11:21 DCW [id number]) Out-Patient Physical Therapy Visit Information Visit Information Visit Type Treatment Note Visit Start Time 10:30 Visit Stop Time 11:15 Total Visit Minutes 45 Visit Number 14 Number of FORESTRY EXTENSION SPECIALIST Visits 0 Evaluation Information Evaluation Date 05/09/18 PT-OP-B Current Condition Start: 05/09/18 14:41 Freq: Status: Active Protocol: Document 05/09/18 10:30 DCW (Rec: 05/09/18 15:07 DCW [id number]) Current Condition History of Current Condition Onset Date Multi-year history Current Complaints R knee pain, LE and core weakness. History of Current Condition Pt is a 73 year old male presenting with right knee pain, LE weakness, and core weakness. Pt was scheduled for skilled PT for what was supposed to be s/p R TKA, however due to a kidney stone, pt reports his TKA surgery was blocked by a urologist, and he is now scheduled for a surgical removal of his kidney stone on 05/12/18. Since he was already wscheduled out with multiple PT appointments, however, he decided that it was a good opportunity to work on some leg and core strengthening before I did have my knee surgery, so he asked for a new referral to take advantage of his scheduled appointments. 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 Pt also notes that he can walk for miles with no leg trouble, but it causes his feet to get very sore. Future Testing and Treatments Planned R TKA Surgical removal of kidney stones 05/12/18 Treatment Goals Patient/Caregiver Goals Pt's goal is to get up off the floor easier, and to strengthen his legs prior to his TKA Prior Functional Status Baseline Function- ADL's Independent Baseline Function- Mobility Independent Current Functional Impairments (Reported) Functional Limitations- Recreation/ Difficulty getting up off Hobbies floor of workshop without something to hold on to, pain in feet with extended walking. PT-OP-C Subjective Start: 05/09/18 14:41 Freq: Status: Active Protocol: Document 07/15/18 10:30 DCW (Rec: 07/15/18 11:21 DCW [id number]) OP-PT Subjective Patient Comments Patient Comments Pt reports he isn't feeling as good as they were Wednesday, not that anything is feeling bed, just not quite the same level of enthusiam. PT-OP-D Balance Start: 05/09/18 14:41 Freq: Status: Active Protocol: Document 06/30/18 10:30 DCW (Rec: 06/30/18 10:49 DCW [id number]) OP-PT Balance Assessment Standing Balance Standing Balance Comments SLS: L=25 seconds, R=21 seconds Dao Fall Scale Copyright Permission Sylwia GUZMAN, Sylwia RM, Lisa SJ. Development of a scale to identify the fall- prone patient. Can J Aging 1989;8;366-7. Momo Dao (2009). Preventing patient falls. (2nd ed). [place]: [place]. PT-OP-F Manual Assessment Start: 05/09/18 15:08 Freq: Status: Active Protocol: Document 06/30/18 10:30 DCW (Rec: 06/30/18 10:49 DCW [id number]) Manual Assessments Joint Mobility Assessment Joint Mobility Assessment Left great toe PROM extension to 15 degrees. PT-OP-M Strength Start: 05/09/18 14:41 Freq: Status: Active Protocol: Document 06/30/18 10:30 DCW (Rec: 06/30/18 10:49 DCW [id number]) Trunk Strength Trunk Manual Muscle Testing Core Stabilization Core Strength - pt holds double SLR 15 seconds before fatigue, no complaints of low back pain, very large Diastasis recti with core contraction. MMT 4+/5 Hip Strength Hip Manual Muscle Testing Right Flexion (L2) 4+ Good+ Abduction 5 Normal Adduction 5 Normal External Rotation 5 Normal Internal Rotation 5 Normal Left Flexion (L2) 5 Normal Abduction 5 Normal Adduction 5 Normal External Rotation 5 Normal Internal Rotation 5 Normal Knee Strength Knee Manual Muscle Testing Right Flexion (S2) 5 Normal Extension (L3) 5 Normal Left Flexion (S2) 5 Normal Extension (L3) 5 Normal Ankle/Foot Strength Ankle and Foot Manual Muscle Testing Right Dorsiflexion (L4) 5 Normal Plantarflexion (S1) 4 Good Left Dorsiflexion (L4) 5 Normal Plantarflexion (S1) 4- Good- PT-OP-Q Treatments Start: 05/09/18 14:41 Freq: Status: Active Protocol: Document 07/15/18 10:30 DCW (Rec: 07/15/18 11:21 DCW [id number]) Cardio Equipment Recumbent Bicycle Duration (Minutes) 6 Resistance 10 Seat Position 11 Gym Equipment Shuttle Recovery Unilateral Squats Resistance 75# Shuttle Recovery Platform Stable Bilateral Squats Resistance 125# Shuttle Recovery Platform Unstable Shuttle Balance Red Details Wide MICHAEL (EO/EC, Perturbations ), Staggered Stance, Lateral weight-shift Therapeutic Exercises Other Exercises Resisted Fwd/Retro Ambulation Other Exercise Name Resisted Forward/Backward Stepping Resistance Green Equipment Used T-band Resisted Side-stepping Other Exercise Name Resisted side-stepping Resistance Green Equipment Used T-band Neuro Re-Education Treatment Balance Activities SLS Details SLS on Krista disc Surface Yellow Krista disc PT-OP-T Assessment and Plan Start: 05/09/18 14:41 Freq: Status: Active Protocol: Document 07/15/18 10:30 DCW (Rec: 07/15/18 11:21 DCW [id number]) Physical Therapy Assessment Impairments Impairments Activity Tolerance Balance Functional Mobility Pain Soft Tissue Mobility Strength Goals Five Impairment Decreased single leg balance Short Term Goal (STG) 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 STG Duration 08/31/18 - Improving Four Impairment Strength Short Term Goal (STG) Core strength to 4+/5 STG Duration Met Group Home Goal (LTG) Gross LE MMT to 4+/5 LTG Duration 08/31/18 - Improving Three Impairment Walking tolerance Group Home Goal (LTG) Pt to ambulate one mile with no increased foot pain LTG Duration 08/31/18 Two Impairment Floor transfers Group Home Goal (LTG) Pt to get off floor of workshop without use of objects to use UE to pull himself up LTG Duration 08/31/18 One Impairment Pt does not have appropriate home exercise program Short Term Goal (STG) Pt to be independent and compliant with an appropriate HEP STG Duration Met Assessment Summary Assessment Compliant surface SLS gave pt some difficulty, however pt tolerated all other activities with no difficulty or complaints. Physical Therapy Plan Frequency and Duration Frequency of Treatment 2x/Week Duration of Treatment Two months Plan of Care Start Date 06/30/18 Plan of Care End Date 08/31/18 Therapeutic Interventions Therapeutic Interventions Aquatic Therapy Balance Training Gait Training Home Exercise Program Joint Mobilizations Manual Therapy Soft Tissue Mobilization Therapeutic Activities Therapeutic Exercises Modalities Cold Pack/Ice Massage Electric Stimulation Hot Packs Ultrasound Next Visit Focus/Plan Next Note Type Treatment Note Next Visit Plan Continue ongoing POC
--- NOTE | 2018-07-18 17:53 | PT.OTN ---
Current Diagnoses Arthropathic psoriasis, unspecified (07/18/18) Unilateral primary osteoarthritis, right knee (07/18/18) Physical Therapy Treatment Note PT-OP-A Visit Information Start: 05/09/18 14:41 Freq: Status: Active Protocol: Document 07/18/18 10:35 DCW (Rec: 07/18/18 17:53 DCW [id number]) Out-Patient Physical Therapy Visit Information Visit Information Visit Type Treatment Note Visit Note Pt arrived 5 minutes late Visit Start Time 10:35 Visit Stop Time 11:15 Total Visit Minutes 45 Visit Number 14 Number of PURCHASING DEPARTMENT CLERK Visits 0 Evaluation Information Evaluation Date 05/09/18 PT-OP-B Current Condition Start: 05/09/18 14:41 Freq: Status: Active Protocol: Document 05/09/18 10:30 DCW (Rec: 05/09/18 15:07 DCW [id number]) Current Condition History of Current Condition Onset Date Multi-year history Current Complaints R knee pain, LE and core weakness. History of Current Condition Pt is a 73 year old male presenting with right knee pain, LE weakness, and core weakness. Pt was scheduled for skilled PT for what was supposed to be s/p R TKA, however due to a kidney stone, pt reports his TKA surgery was blocked by a urologist, and he is now scheduled for a surgical removal of his kidney stone on 05/12/18. Since he was already wscheduled out with multiple PT appointments, however, he decided that it was a good opportunity to work on some leg and core strengthening before I did have my knee surgery, so he asked for a new referral to take advantage of his scheduled appointments. 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 Pt also notes that he can walk for miles with no leg trouble, but it causes his feet to get very sore. Future Testing and Treatments Planned R TKA Surgical removal of kidney stones 05/12/18 Treatment Goals Patient/Caregiver Goals Pt's goal is to get up off the floor easier, and to strengthen his legs prior to his TKA Prior Functional Status Baseline Function- ADL's Independent Baseline Function- Mobility Independent Current Functional Impairments (Reported) Functional Limitations- Recreation/ Difficulty getting up off Hobbies floor of workshop without something to hold on to, pain in feet with extended walking. PT-OP-C Subjective Start: 05/09/18 14:41 Freq: Status: Active Protocol: Document 07/18/18 10:35 DCW (Rec: 07/18/18 17:53 DCW [id number]) OP-PT Subjective Patient Comments Patient Comments Pt reports his big appointment with the surgeon is coming up on Wednesday, but he feels like he has made enought progress with therapy, he is unsure if he should go through with a knee replacement, or wait another year. PT-OP-D Balance Start: 05/09/18 14:41 Freq: Status: Active Protocol: Document 06/30/18 10:30 DCW (Rec: 06/30/18 10:49 DCW [id number]) OP-PT Balance Assessment Standing Balance Standing Balance Comments SLS: L=25 seconds, R=21 seconds Dao Fall Scale Copyright Permission Sylwia GUZMAN, Sylwia RM, Lisa SJ. Development of a scale to identify the fall- prone patient. Can J Aging 1989;8;366-7. Momo Dao (2009). Preventing patient falls. (2nd ed). [place]: [place]. PT-OP-F Manual Assessment Start: 05/09/18 15:08 Freq: Status: Active Protocol: Document 06/30/18 10:30 DCW (Rec: 06/30/18 10:49 DCW [id number]) Manual Assessments Joint Mobility Assessment Joint Mobility Assessment Left great toe PROM extension to 15 degrees. PT-OP-M Strength Start: 05/09/18 14:41 Freq: Status: Active Protocol: Document 06/30/18 10:30 DCW (Rec: 06/30/18 10:49 DCW [id number]) Trunk Strength Trunk Manual Muscle Testing Core Stabilization Core Strength - pt holds double SLR 15 seconds before fatigue, no complaints of low back pain, very large Diastasis recti with core contraction. MMT 4+/5 Hip Strength Hip Manual Muscle Testing Right Flexion (L2) 4+ Good+ Abduction 5 Normal Adduction 5 Normal External Rotation 5 Normal Internal Rotation 5 Normal Left Flexion (L2) 5 Normal Abduction 5 Normal Adduction 5 Normal External Rotation 5 Normal Internal Rotation 5 Normal Knee Strength Knee Manual Muscle Testing Right Flexion (S2) 5 Normal Extension (L3) 5 Normal Left Flexion (S2) 5 Normal Extension (L3) 5 Normal Ankle/Foot Strength Ankle and Foot Manual Muscle Testing Right Dorsiflexion (L4) 5 Normal Plantarflexion (S1) 4 Good Left Dorsiflexion (L4) 5 Normal Plantarflexion (S1) 4- Good- PT-OP-Q Treatments Start: 05/09/18 14:41 Freq: Status: Active Protocol: Document 07/18/18 10:35 DCW (Rec: 07/18/18 17:53 DCW [id number]) Cardio Equipment Recumbent Bicycle Duration (Minutes) 6 Resistance 10 Seat Position 11 Gym Equipment Shuttle Recovery Unilateral Squats Resistance 75# Shuttle Recovery Platform Stable Bilateral Squats Resistance 125# Shuttle Recovery Platform Unstable Shuttle Balance Red Details Wide MICHAEL (EO/EC, Perturbations ), Staggered Stance, Lateral weight-shift Therapeutic Exercises Standing Exercises Lunges Standing Exercise Name Lunge-kneel onto stacked pads Side bilateral Equipment Used 2 blue/1 black Other Exercises Resisted Fwd/Retro Ambulation Other Exercise Name Resisted Forward/Backward Stepping Resistance Green Equipment Used T-band Resisted Side-stepping Other Exercise Name Resisted side-stepping Resistance Green Equipment Used T-band PT-OP-T Assessment and Plan Start: 05/09/18 14:41 Freq: Status: Active Protocol: Document 07/18/18 10:35 DCW (Rec: 07/18/18 17:53 DCW [id number]) Physical Therapy Assessment Impairments Impairments Activity Tolerance Balance Functional Mobility Pain Soft Tissue Mobility Strength Goals Five Impairment Decreased single leg balance Short Term Goal (STG) Pt to webbing tacker single leg stance for 25 seconds bilaterally. STG Duration 08/31/18 - Improving Four Impairment Strength Short Term Goal (STG) Core strength to 4+/5 STG Duration Met Skilled Nursing Goal (LTG) Gross LE MMT to 4+/5 LTG Duration 08/31/18 - Improving Three Impairment Walking tolerance Skilled Nursing Goal (LTG) Pt to ambulate one mile with no increased foot pain LTG Duration 08/31/18 Two Impairment Floor transfers Restaurant Recruiter Goal (LTG) Pt to get off floor of workshop without use of objects to use UE to pull himself up LTG Duration 08/31/18 One Impairment Pt does not have appropriate home exercise program Short Term Goal (STG) Pt to be independent and compliant with an appropriate HEP STG Duration Met Assessment Summary Assessment Discussed with pt options or possible different views if he does not want surgery, and helped weight pros/cons with pushing it off another year. Pt still unsure at this time. Physical Therapy Plan Frequency and Duration Frequency of Treatment 2x/Week Duration of Treatment Two months Plan of Care Start Date 06/30/18 Plan of Care End Date 08/31/18 Therapeutic Interventions Therapeutic Interventions Aquatic Therapy Balance Training Gait Training Home Exercise Program Joint Mobilizations Manual Therapy Soft Tissue Mobilization Therapeutic Activities Therapeutic Exercises Modalities Cold Pack/Ice Massage Electric Stimulation Hot Packs Ultrasound Next Visit Focus/Plan Next Note Type Treatment Note Next Visit Plan Continue ongoing POC
--- NOTE | 2018-07-21 11:14 | PT.OTN ---
Current Diagnoses Arthropathic psoriasis, unspecified (07/21/18) Unilateral primary osteoarthritis, right knee (07/21/18) Physical Therapy Treatment Note PT-OP-A Visit Information Start: 05/09/18 14:41 Freq: Status: Active Protocol: Document 07/21/18 10:30 DCW (Rec: 07/21/18 11:14 DCW [id number]) Out-Patient Physical Therapy Visit Information Visit Information Visit Type Treatment Note Visit Start Time 10:30 Visit Stop Time 11:15 Total Visit Minutes 45 Visit Number 16 Number of FILM TESTS CHECKER Visits 0 Evaluation Information Evaluation Date 05/09/18 PT-OP-B Current Condition Start: 05/09/18 14:41 Freq: Status: Active Protocol: Document 05/09/18 10:30 DCW (Rec: 05/09/18 15:07 DCW [id number]) Current Condition History of Current Condition Onset Date Multi-year history Current Complaints R knee pain, LE and core weakness. History of Current Condition Pt is a 73 year old male presenting with right knee pain, LE weakness, and core weakness. Pt was scheduled for skilled PT for what was supposed to be s/p R TKA, however due to a kidney stone, pt reports his TKA surgery was blocked by a urologist, and he is now scheduled for a surgical removal of his kidney stone on 05/12/18. Since he was already wscheduled out with multiple PT appointments, however, he decided that it was a good opportunity to work on some leg and core strengthening before I did have my knee surgery, so he asked for a new referral to take advantage of his scheduled appointments. 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 Pt also notes that he can walk for miles with no leg trouble, but it causes his feet to get very sore. Future Testing and Treatments Planned R TKA Surgical removal of kidney stones 05/12/18 Treatment Goals Patient/Caregiver Goals Pt's goal is to get up off the floor easier, and to strengthen his legs prior to his TKA Prior Functional Status Baseline Function- ADL's Independent Baseline Function- Mobility Independent Current Functional Impairments (Reported) Functional Limitations- Recreation/ Difficulty getting up off Hobbies floor of workshop without something to hold on to, pain in feet with extended walking. PT-OP-C Subjective Start: 05/09/18 14:41 Freq: Status: Active Protocol: Document 07/21/18 10:30 DCW (Rec: 07/21/18 11:14 DCW [id number]) OP-PT Subjective Patient Comments Patient Comments Pt reports he needs to cancel his next visit due to travel. PT-OP-D Balance Start: 05/09/18 14:41 Freq: Status: Active Protocol: Document 06/30/18 10:30 DCW (Rec: 06/30/18 10:49 DCW [id number]) OP-PT Balance Assessment Standing Balance Standing Balance Comments SLS: L=25 seconds, R=21 seconds Dao Fall Scale Copyright Permission Sylwia GUZMAN, Sylwia RM, Lisa SJ. Development of a scale to identify the fall- prone patient. Can J Aging 1989;8;366-7. Momo Dao (2009). Preventing patient falls. (2nd ed). [place]: [place]. PT-OP-F Manual Assessment Start: 05/09/18 15:08 Freq: Status: Active Protocol: Document 06/30/18 10:30 DCW (Rec: 06/30/18 10:49 DCW [id number]) Manual Assessments Joint Mobility Assessment Joint Mobility Assessment Left great toe PROM extension to 15 degrees. PT-OP-M Strength Start: 05/09/18 14:41 Freq: Status: Active Protocol: Document 06/30/18 10:30 DCW (Rec: 06/30/18 10:49 DCW [id number]) Trunk Strength Trunk Manual Muscle Testing Core Stabilization Core Strength - pt holds double SLR 15 seconds before fatigue, no complaints of low back pain, very large Diastasis recti with core contraction. MMT 4+/5 Hip Strength Hip Manual Muscle Testing Right Flexion (L2) 4+ Good+ Abduction 5 Normal Adduction 5 Normal External Rotation 5 Normal Internal Rotation 5 Normal Left Flexion (L2) 5 Normal Abduction 5 Normal Adduction 5 Normal External Rotation 5 Normal Internal Rotation 5 Normal Knee Strength Knee Manual Muscle Testing Right Flexion (S2) 5 Normal Extension (L3) 5 Normal Left Flexion (S2) 5 Normal Extension (L3) 5 Normal Ankle/Foot Strength Ankle and Foot Manual Muscle Testing Right Dorsiflexion (L4) 5 Normal Plantarflexion (S1) 4 Good Left Dorsiflexion (L4) 5 Normal Plantarflexion (S1) 4- Good- PT-OP-Q Treatments Start: 05/09/18 14:41 Freq: Status: Active Protocol: Document 07/21/18 10:30 DCW (Rec: 07/21/18 11:14 DCW [id number]) Cardio Equipment Recumbent Stepper (Sci-Fit) Duration (Minutes) 5 Resistance 4 Seat Position 14 Gym Equipment Shuttle Recovery Unilateral Squats Resistance 75# Shuttle Recovery Platform Stable Bilateral Squats Resistance 125# Shuttle Recovery Platform Unstable Shuttle Balance Red Details Wide MICHAEL (EO/EC, Perturbations ), Staggered Stance, Lateral weight-shift Therapeutic Ball Reverse Leg Press Exercise Details Hip/knee flexion vs T-band resistance /c feet on ball Ball Size/Color Red - 55 cm Lv 2 T-band Body Position Supine Bridging /c Hamstring Curls Exercise Details Bridging /c HS curls Ball Size/Color Red - 55 cm Body Position Supine Therapeutic Exercises Other Exercises Resisted Fwd/Retro Ambulation Other Exercise Name Resisted Forward/Backward Stepping Resistance Blue Equipment Used T-band Resisted Side-stepping Other Exercise Name Resisted side-stepping Resistance Blue Equipment Used T-band PT-OP-T Assessment and Plan Start: 05/09/18 14:41 Freq: Status: Active Protocol: Document 07/21/18 10:30 DCW (Rec: 07/21/18 11:14 DCW [id number]) Physical Therapy Assessment Impairments Impairments Activity Tolerance Balance Functional Mobility Pain Soft Tissue Mobility Strength Goals Five Impairment Decreased single leg balance Short Term Goal (STG) Pt to pharmacy intake coordinator single leg stance for 25 seconds bilaterally. STG Duration 08/31/18 - Improving Four Impairment Strength Short Term Goal (STG) Core strength to 4+/5 STG Duration Met Intermediate Goal (LTG) Gross LE MMT to 4+/5 LTG Duration 08/31/18 - Improving Three Impairment Walking tolerance Yarn Polishing Machine Operator Goal (LTG) Pt to ambulate one mile with no increased foot pain LTG Duration 08/31/18 Two Impairment Floor transfers Intermediate Goal (LTG) Pt to get off floor of workshop without use of objects to use UE to pull himself up LTG Duration 08/31/18 One Impairment Pt does not have appropriate home exercise program Short Term Goal (STG) Pt to be independent and compliant with an appropriate HEP STG Duration Met Assessment Summary Assessment Pt feeling some increased knee pain since his last visit, no longer really considering putting off his TKA for another year. Physical Therapy Plan Frequency and Duration Frequency of Treatment 2x/Week Duration of Treatment Two months Plan of Care Start Date 06/30/18 Plan of Care End Date 08/31/18 Therapeutic Interventions Therapeutic Interventions Aquatic Therapy Balance Training Gait Training Home Exercise Program Joint Mobilizations Manual Therapy Soft Tissue Mobilization Therapeutic Activities Therapeutic Exercises Modalities Cold Pack/Ice Massage Electric Stimulation Hot Packs Ultrasound Next Visit Focus/Plan Next Note Type Treatment Note Next Visit Plan Continue ongoing POC
--- NOTE | 2018-07-28 11:16 | PT.OTN ---
Current Diagnoses Arthropathic psoriasis, unspecified (07/28/18) Unilateral primary osteoarthritis, right knee (07/28/18) Physical Therapy Treatment Note PT-OP-A Visit Information Start: 05/09/18 14:41 Freq: Status: Active Protocol: Document 07/28/18 10:30 DCW (Rec: 07/28/18 11:16 DCW [id number]) Out-Patient Physical Therapy Visit Information Visit Information Visit Type Treatment Note Visit Start Time 10:30 Visit Stop Time 11:15 Total Visit Minutes 45 Visit Number 17 Number of BONDING MACHINE TENDER Visits 0 Evaluation Information Evaluation Date 05/09/18 PT-OP-B Current Condition Start: 05/09/18 14:41 Freq: Status: Active Protocol: Document 05/09/18 10:30 DCW (Rec: 05/09/18 15:07 DCW [id number]) Current Condition History of Current Condition Onset Date Multi-year history Current Complaints R knee pain, LE and core weakness. History of Current Condition Pt is a 73 year old male presenting with right knee pain, LE weakness, and core weakness. Pt was scheduled for skilled PT for what was supposed to be s/p R TKA, however due to a kidney stone, pt reports his TKA surgery was blocked by a urologist, and he is now scheduled for a surgical removal of his kidney stone on 05/12/18. Since he was already wscheduled out with multiple PT appointments, however, he decided that it was a good opportunity to work on some leg and core strengthening before I did have my knee surgery, so he asked for a new referral to take advantage of his scheduled appointments. 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 Pt also notes that he can walk for miles with no leg trouble, but it causes his feet to get very sore. Future Testing and Treatments Planned R TKA Surgical removal of kidney stones 05/12/18 Treatment Goals Patient/Caregiver Goals Pt's goal is to get up off the floor easier, and to strengthen his legs prior to his TKA Prior Functional Status Baseline Function- ADL's Independent Baseline Function- Mobility Independent Current Functional Impairments (Reported) Functional Limitations- Recreation/ Difficulty getting up off Hobbies floor of workshop without something to hold on to, pain in feet with extended walking. PT-OP-C Subjective Start: 05/09/18 14:41 Freq: Status: Active Protocol: Document 07/28/18 10:30 DCW (Rec: 07/28/18 11:16 DCW [id number]) OP-PT Subjective Patient Comments Patient Comments Pt reports his knee feels pretty good today, but it's been pretty problematic the past few days walking around [place]. Reports thaty he met with Dr Anna, has a TKA scheduled in September, and has an MRI and X-ray scheduled within the upcoming weeks. PT-OP-D Balance Start: 05/09/18 14:41 Freq: Status: Active Protocol: Document 06/30/18 10:30 DCW (Rec: 06/30/18 10:49 DCW [id number]) OP-PT Balance Assessment Standing Balance Standing Balance Comments SLS: L=25 seconds, R=21 seconds Dao Fall Scale Copyright Permission Sylwia GUZMAN, Sylwia RM, Lisa SJ. Development of a scale to identify the fall- prone patient. Can J Aging 1989;8;366-7. Momo Dao (2009). Preventing patient falls. (2nd ed). [place]: [place]. PT-OP-F Manual Assessment Start: 05/09/18 15:08 Freq: Status: Active Protocol: Document 06/30/18 10:30 DCW (Rec: 06/30/18 10:49 DCW [id number]) Manual Assessments Joint Mobility Assessment Joint Mobility Assessment Left great toe PROM extension to 15 degrees. PT-OP-M Strength Start: 05/09/18 14:41 Freq: Status: Active Protocol: Document 06/30/18 10:30 DCW (Rec: 06/30/18 10:49 DCW [id number]) Trunk Strength Trunk Manual Muscle Testing Core Stabilization Core Strength - pt holds double SLR 15 seconds before fatigue, no complaints of low back pain, very large Diastasis recti with core contraction. MMT 4+/5 Hip Strength Hip Manual Muscle Testing Right Flexion (L2) 4+ Good+ Abduction 5 Normal Adduction 5 Normal External Rotation 5 Normal Internal Rotation 5 Normal Left Flexion (L2) 5 Normal Abduction 5 Normal Adduction 5 Normal External Rotation 5 Normal Internal Rotation 5 Normal Knee Strength Knee Manual Muscle Testing Right Flexion (S2) 5 Normal Extension (L3) 5 Normal Left Flexion (S2) 5 Normal Extension (L3) 5 Normal Ankle/Foot Strength Ankle and Foot Manual Muscle Testing Right Dorsiflexion (L4) 5 Normal Plantarflexion (S1) 4 Good Left Dorsiflexion (L4) 5 Normal Plantarflexion (S1) 4- Good- PT-OP-Q Treatments Start: 05/09/18 14:41 Freq: Status: Active Protocol: Document 07/28/18 10:30 DCW (Rec: 07/28/18 11:16 DCW [id number]) Cardio Equipment Recumbent Bicycle Duration (Minutes) 6 Resistance 10 Seat Position 9 Gym Equipment Shuttle Recovery Unilateral Squats Resistance 75# Shuttle Recovery Platform Stable Bilateral Squats Resistance 125# Shuttle Recovery Platform Unstable Shuttle Balance Red Details Wide MICHAEL (EO/EC, Perturbations ), Staggered Stance, Lateral weight-shift Therapeutic Exercises Other Exercises Resisted Fwd/Retro Ambulation Other Exercise Name Resisted Forward/Backward Stepping Resistance Blue Equipment Used T-band Resisted Side-stepping Other Exercise Name Resisted side-stepping Resistance Blue Equipment Used T-band Neuro Re-Education Treatment Balance Activities SLS Details SLS on Krista disc Surface Yellow Krista disc Romberg Stance Details Romberg on BOSU Surface Blue BOSU PT-OP-T Assessment and Plan Start: 05/09/18 14:41 Freq: Status: Active Protocol: Document 07/28/18 10:30 DCW (Rec: 07/28/18 11:16 DCW [id number]) Physical Therapy Assessment Impairments Impairments Activity Tolerance Balance Functional Mobility Pain Soft Tissue Mobility Strength Goals Five Impairment Decreased single leg balance Short Term Goal (STG) Pt to senior energy market coordinator single leg stance for 25 seconds bilaterally. STG Duration 08/31/18 - Improving Four Impairment Strength Short Term Goal (STG) Core strength to 4+/5 STG Duration Met Film Critic Goal (LTG) Gross LE MMT to 4+/5 LTG Duration 08/31/18 - Improving Three Impairment Walking tolerance Film Critic Goal (LTG) Pt to ambulate one mile with no increased foot pain LTG Duration 08/31/18 Two Impairment Floor transfers Senior Care Goal (LTG) Pt to get off floor of workshop without use of objects to use UE to pull himself up LTG Duration 08/31/18 One Impairment Pt does not have appropriate home exercise program Short Term Goal (STG) Pt to be independent and compliant with an appropriate HEP STG Duration Met Assessment Summary Assessment With upcoming surgery, pt will decrease frequency in order to save future PT visits for post-op Physical Therapy Plan Frequency and Duration Frequency of Treatment 2x/Week Duration of Treatment Two months Plan of Care Start Date 06/30/18 Plan of Care End Date 08/31/18 Therapeutic Interventions Therapeutic Interventions Aquatic Therapy Balance Training Gait Training Home Exercise Program Joint Mobilizations Manual Therapy Soft Tissue Mobilization Therapeutic Activities Therapeutic Exercises Modalities Cold Pack/Ice Massage Electric Stimulation Hot Packs Ultrasound Next Visit Focus/Plan Next Note Type Treatment Note Next Visit Plan Continue ongoing POC
--- NOTE | 2018-08-01 11:16 | PT.OTN ---
Current Diagnoses Arthropathic psoriasis, unspecified (08/01/18) Unilateral primary osteoarthritis, right knee (08/01/18) Physical Therapy Treatment Note PT-OP-A Visit Information Start: 05/09/18 14:41 Freq: Status: Active Protocol: Document 08/01/18 10:30 DCW (Rec: 08/01/18 11:16 DCW [id number]) Out-Patient Physical Therapy Visit Information Visit Information Visit Type Treatment Note Visit Start Time 10:30 Visit Stop Time 11:15 Total Visit Minutes 45 Visit Number 18 Number of TRAY DELIVERY AIDE Visits 0 Evaluation Information Evaluation Date 05/09/18 PT-OP-B Current Condition Start: 05/09/18 14:41 Freq: Status: Active Protocol: Document 05/09/18 10:30 DCW (Rec: 05/09/18 15:07 DCW [id number]) Current Condition History of Current Condition Onset Date Multi-year history Current Complaints R knee pain, LE and core weakness. History of Current Condition Pt is a 73 year old male presenting with right knee pain, LE weakness, and core weakness. Pt was scheduled for skilled PT for what was supposed to be s/p R TKA, however due to a kidney stone, pt reports his TKA surgery was blocked by a urologist, and he is now scheduled for a surgical removal of his kidney stone on 05/12/18. Since he was already wscheduled out with multiple PT appointments, however, he decided that it was a good opportunity to work on some leg and core strengthening before I did have my knee surgery, so he asked for a new referral to take advantage of his scheduled appointments. 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 Pt also notes that he can walk for miles with no leg trouble, but it causes his feet to get very sore. Future Testing and Treatments Planned R TKA Surgical removal of kidney stones 05/12/18 Treatment Goals Patient/Caregiver Goals Pt's goal is to get up off the floor easier, and to strengthen his legs prior to his TKA Prior Functional Status Baseline Function- ADL's Independent Baseline Function- Mobility Independent Current Functional Impairments (Reported) Functional Limitations- Recreation/ Difficulty getting up off Hobbies floor of workshop without something to hold on to, pain in feet with extended walking. PT-OP-C Subjective Start: 05/09/18 14:41 Freq: Status: Active Protocol: Document 08/01/18 10:30 DCW (Rec: 08/01/18 11:16 DCW [id number]) OP-PT Subjective Patient Comments Patient Comments Pt still concerned about getting down to and up from the floor, reports getting down is easier than it used to be, but it is still a struggle. PT-OP-D Balance Start: 05/09/18 14:41 Freq: Status: Active Protocol: Document 06/30/18 10:30 DCW (Rec: 06/30/18 10:49 DCW [id number]) OP-PT Balance Assessment Standing Balance Standing Balance Comments SLS: L=25 seconds, R=21 seconds Dao Fall Scale Copyright Permission Sylwia GUZMAN, Sylwia RM, Lisa SJ. Development of a scale to identify the fall- prone patient. Can J Aging 1989;8;366-7. Momo Dao (2009). Preventing patient falls. (2nd ed). [place]: [place]. PT-OP-F Manual Assessment Start: 05/09/18 15:08 Freq: Status: Active Protocol: Document 06/30/18 10:30 DCW (Rec: 06/30/18 10:49 DCW [id number]) Manual Assessments Joint Mobility Assessment Joint Mobility Assessment Left great toe PROM extension to 15 degrees. PT-OP-M Strength Start: 05/09/18 14:41 Freq: Status: Active Protocol: Document 06/30/18 10:30 DCW (Rec: 06/30/18 10:49 DCW [id number]) Trunk Strength Trunk Manual Muscle Testing Core Stabilization Core Strength - pt holds double SLR 15 seconds before fatigue, no complaints of low back pain, very large Diastasis recti with core contraction. MMT 4+/5 Hip Strength Hip Manual Muscle Testing Right Flexion (L2) 4+ Good+ Abduction 5 Normal Adduction 5 Normal External Rotation 5 Normal Internal Rotation 5 Normal Left Flexion (L2) 5 Normal Abduction 5 Normal Adduction 5 Normal External Rotation 5 Normal Internal Rotation 5 Normal Knee Strength Knee Manual Muscle Testing Right Flexion (S2) 5 Normal Extension (L3) 5 Normal Left Flexion (S2) 5 Normal Extension (L3) 5 Normal Ankle/Foot Strength Ankle and Foot Manual Muscle Testing Right Dorsiflexion (L4) 5 Normal Plantarflexion (S1) 4 Good Left Dorsiflexion (L4) 5 Normal Plantarflexion (S1) 4- Good- PT-OP-Q Treatments Start: 05/09/18 14:41 Freq: Status: Active Protocol: Document 08/01/18 10:30 DCW (Rec: 08/01/18 11:16 DCW [id number]) Cardio Equipment Recumbent Bicycle Duration (Minutes) 6 Resistance 10 Seat Position 10 Gym Equipment Cable Column (Body Solid) Leg Curl Resistance 60# Leg Extension Details 90-45 degrees Resistance 40# Shuttle Balance Red Details Wide MICHAEL (EO/EC, Perturbations ), Staggered Stance, Lateral weight-shift Therapeutic Exercises Standing Exercises Hip Abduction Standing Exercise Name Hip flexion/abduction Side bilateral Resistance 5# Other Exercises Resisted Fwd/Retro Ambulation Other Exercise Name Resisted Forward/Backward Stepping Resistance Blue Equipment Used T-band Resisted Side-stepping Other Exercise Name Resisted side-stepping Resistance Blue Equipment Used T-band Comments Hold mini-squat PT-OP-T Assessment and Plan Start: 05/09/18 14:41 Freq: Status: Active Protocol: Document 08/01/18 10:30 DCW (Rec: 08/01/18 11:16 DCW [id number]) Physical Therapy Assessment Impairments Impairments Activity Tolerance Balance Functional Mobility Pain Soft Tissue Mobility Strength Goals Five Impairment Decreased single leg balance Short Term Goal (STG) Pt to hvac sales engineer single leg stance for 25 seconds bilaterally. STG Duration 08/31/18 - Improving Four Impairment Strength Short Term Goal (STG) Core strength to 4+/5 STG Duration Met Custodial Goal (LTG) Gross LE MMT to 4+/5 LTG Duration 08/31/18 - Improving Three Impairment Walking tolerance Custodial Goal (LTG) Pt to ambulate one mile with no increased foot pain LTG Duration 08/31/18 Two Impairment Floor transfers Continuous Mining Operator Goal (LTG) Pt to get off floor of workshop without use of objects to use UE to pull himself up LTG Duration 08/31/18 One Impairment Pt does not have appropriate home exercise program Short Term Goal (STG) Pt to be independent and compliant with an appropriate HEP STG Duration Met Assessment Summary Assessment Pt has decided to not decrease frequency as discussed last week, and instead has scheduled more visits leading up to surgery. Physical Therapy Plan Frequency and Duration Frequency of Treatment 2x/Week Duration of Treatment Two months Plan of Care Start Date 06/30/18 Plan of Care End Date 08/31/18 Therapeutic Interventions Therapeutic Interventions Aquatic Therapy Balance Training Gait Training Home Exercise Program Joint Mobilizations Manual Therapy Soft Tissue Mobilization Therapeutic Activities Therapeutic Exercises Modalities Cold Pack/Ice Massage Electric Stimulation Hot Packs Ultrasound Next Visit Focus/Plan Next Note Type Treatment Note Next Visit Plan Continue ongoing POC
--- NOTE | 2018-08-04 11:16 | PT.OTN ---
Current Diagnoses Arthropathic psoriasis, unspecified (08/04/18) Unilateral primary osteoarthritis, right knee (08/04/18) Physical Therapy Treatment Note PT-OP-A Visit Information Start: 05/09/18 14:41 Freq: Status: Active Protocol: Document 08/04/18 10:30 DCW (Rec: 08/04/18 11:15 DCW [id number]) Out-Patient Physical Therapy Visit Information Visit Information Visit Type Treatment Note Visit Start Time 10:30 Visit Stop Time 11:15 Total Visit Minutes 45 Visit Number 18 Number of CUSTOMER COMPLAINT CLERK Visits 0 Evaluation Information Evaluation Date 05/09/18 PT-OP-B Current Condition Start: 05/09/18 14:41 Freq: Status: Active Protocol: Document 05/09/18 10:30 DCW (Rec: 05/09/18 15:07 DCW [id number]) Current Condition History of Current Condition Onset Date Multi-year history Current Complaints R knee pain, LE and core weakness. History of Current Condition Pt is a 73 year old male presenting with right knee pain, LE weakness, and core weakness. Pt was scheduled for skilled PT for what was supposed to be s/p R TKA, however due to a kidney stone, pt reports his TKA surgery was blocked by a urologist, and he is now scheduled for a surgical removal of his kidney stone on 05/12/18. Since he was already wscheduled out with multiple PT appointments, however, he decided that it was a good opportunity to work on some leg and core strengthening before I did have my knee surgery, so he asked for a new referral to take advantage of his scheduled appointments. 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 Pt also notes that he can walk for miles with no leg trouble, but it causes his feet to get very sore. Future Testing and Treatments Planned R TKA Surgical removal of kidney stones 05/12/18 Treatment Goals Patient/Caregiver Goals Pt's goal is to get up off the floor easier, and to strengthen his legs prior to his TKA Prior Functional Status Baseline Function- ADL's Independent Baseline Function- Mobility Independent Current Functional Impairments (Reported) Functional Limitations- Recreation/ Difficulty getting up off Hobbies floor of workshop without something to hold on to, pain in feet with extended walking. PT-OP-C Subjective Start: 05/09/18 14:41 Freq: Status: Active Protocol: Document 08/04/18 10:30 DCW (Rec: 08/04/18 11:15 DCW [id number]) OP-PT Subjective Patient Comments Patient Comments Pt reports that he had a Remicade injection for inflammation on Wednesday, and now he is feeling pretty good . Pt feels like despite Remicade being supposed to last 8 weeks, he feels like that time is shortening. Patient Reported Progress Improving PT-OP-D Balance Start: 05/09/18 14:41 Freq: Status: Active Protocol: Document 06/30/18 10:30 DCW (Rec: 06/30/18 10:49 DCW [id number]) OP-PT Balance Assessment Standing Balance Standing Balance Comments SLS: L=25 seconds, R=21 seconds Dao Fall Scale Copyright Permission Sylwia GUZMAN, Sylwia RM, Lisa SJ. Development of a scale to identify the fall- prone patient. Can J Aging 1989;8;366-7. Momo Dao (2009). Preventing patient falls. (2nd ed). [place]: [place]. PT-OP-F Manual Assessment Start: 05/09/18 15:08 Freq: Status: Active Protocol: Document 06/30/18 10:30 DCW (Rec: 06/30/18 10:49 DCW [id number]) Manual Assessments Joint Mobility Assessment Joint Mobility Assessment Left great toe PROM extension to 15 degrees. PT-OP-M Strength Start: 05/09/18 14:41 Freq: Status: Active Protocol: Document 06/30/18 10:30 DCW (Rec: 06/30/18 10:49 DCW [id number]) Trunk Strength Trunk Manual Muscle Testing Core Stabilization Core Strength - pt holds double SLR 15 seconds before fatigue, no complaints of low back pain, very large Diastasis recti with core contraction. MMT 4+/5 Hip Strength Hip Manual Muscle Testing Right Flexion (L2) 4+ Good+ Abduction 5 Normal Adduction 5 Normal External Rotation 5 Normal Internal Rotation 5 Normal Left Flexion (L2) 5 Normal Abduction 5 Normal Adduction 5 Normal External Rotation 5 Normal Internal Rotation 5 Normal Knee Strength Knee Manual Muscle Testing Right Flexion (S2) 5 Normal Extension (L3) 5 Normal Left Flexion (S2) 5 Normal Extension (L3) 5 Normal Ankle/Foot Strength Ankle and Foot Manual Muscle Testing Right Dorsiflexion (L4) 5 Normal Plantarflexion (S1) 4 Good Left Dorsiflexion (L4) 5 Normal Plantarflexion (S1) 4- Good- PT-OP-Q Treatments Start: 05/09/18 14:41 Freq: Status: Active Protocol: Document 08/04/18 10:30 DCW (Rec: 08/04/18 11:15 DCW [id number]) Cardio Equipment Recumbent Bicycle Duration (Minutes) 6 Resistance 10 Seat Position 8 Gym Equipment Cable Column (Body Solid) Leg Curl Resistance 60# Leg Extension Details 90-45 degrees Resistance 40# Shuttle Recovery Unilateral Squats Resistance 75# Shuttle Recovery Platform Stable Bilateral Squats Resistance 100# Shuttle Recovery Platform Unstable Reps/Time deep squat Shuttle Balance Red Details Wide MICHAEL (EO/EC, Perturbations ), Staggered Stance, Lateral weight-shift Therapeutic Exercises Standing Exercises Heel Raises Standing Exercise Name Heel raises Squats Standing Exercise Name Standing squats PT-OP-T Assessment and Plan Start: 05/09/18 14:41 Freq: Status: Active Protocol: Document 08/04/18 10:30 DCW (Rec: 08/04/18 11:15 DCW [id number]) Physical Therapy Assessment Impairments Impairments Activity Tolerance Balance Functional Mobility Pain Soft Tissue Mobility Strength Goals Five Impairment Decreased single leg balance Short Term Goal (STG) Pt to platform inspector single leg stance for 25 seconds bilaterally. STG Duration 08/31/18 - Improving Four Impairment Strength Short Term Goal (STG) Core strength to 4+/5 STG Duration Met Information Systems Technician Goal (LTG) Gross LE MMT to 4+/5 LTG Duration 08/31/18 - Improving Three Impairment Walking tolerance Information Systems Technician Goal (LTG) Pt to ambulate one mile with no increased foot pain LTG Duration 08/31/18 Two Impairment Floor transfers Penitentiary Goal (LTG) Pt to get off floor of workshop without use of objects to use UE to pull himself up LTG Duration 08/31/18 One Impairment Pt does not have appropriate home exercise program Short Term Goal (STG) Pt to be independent and compliant with an appropriate HEP STG Duration Met Assessment Summary Assessment Pt doing well with working on strengthening his quads in a more flexed position, to improve functional strength when getting off the ground. Physical Therapy Plan Frequency and Duration Frequency of Treatment 2x/Week Duration of Treatment Two months Plan of Care Start Date 06/30/18 Plan of Care End Date 08/31/18 Therapeutic Interventions Therapeutic Interventions Aquatic Therapy Balance Training Gait Training Home Exercise Program Joint Mobilizations Manual Therapy Soft Tissue Mobilization Therapeutic Activities Therapeutic Exercises Modalities Cold Pack/Ice Massage Electric Stimulation Hot Packs Ultrasound Next Visit Focus/Plan Next Note Type Treatment Note Next Visit Plan Continue ongoing POC
--- NOTE | 2018-08-08 12:45 | PT.OTN ---
Current Diagnoses Arthropathic psoriasis, unspecified (08/08/18) Unilateral primary osteoarthritis, right knee (08/08/18) Physical Therapy Treatment Note PT-OP-A Visit Information Start: 05/09/18 14:41 Freq: Status: Active Protocol: Document 08/08/18 12:05 DCW (Rec: 08/08/18 12:45 DCW [id number]) Out-Patient Physical Therapy Visit Information Visit Information Visit Type Treatment Note Visit Start Time 12:05 Visit Stop Time 12:45 Total Visit Minutes 40 Visit Number 19 Number of WRAPPER SHEETER Visits 0 Evaluation Information Evaluation Date 05/09/18 PT-OP-B Current Condition Start: 05/09/18 14:41 Freq: Status: Active Protocol: Document 05/09/18 10:30 DCW (Rec: 05/09/18 15:07 DCW [id number]) Current Condition History of Current Condition Onset Date Multi-year history Current Complaints R knee pain, LE and core weakness. History of Current Condition Pt is a 73 year old male presenting with right knee pain, LE weakness, and core weakness. Pt was scheduled for skilled PT for what was supposed to be s/p R TKA, however due to a kidney stone, pt reports his TKA surgery was blocked by a urologist, and he is now scheduled for a surgical removal of his kidney stone on 05/12/18. Since he was already wscheduled out with multiple PT appointments, however, he decided that it was a good opportunity to work on some leg and core strengthening before I did have my knee surgery, so he asked for a new referral to take advantage of his scheduled appointments. 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 Pt also notes that he can walk for miles with no leg trouble, but it causes his feet to get very sore. Future Testing and Treatments Planned R TKA Surgical removal of kidney stones 05/12/18 Treatment Goals Patient/Caregiver Goals Pt's goal is to get up off the floor easier, and to strengthen his legs prior to his TKA Prior Functional Status Baseline Function- ADL's Independent Baseline Function- Mobility Independent Current Functional Impairments (Reported) Functional Limitations- Recreation/ Difficulty getting up off Hobbies floor of workshop without something to hold on to, pain in feet with extended walking. PT-OP-C Subjective Start: 05/09/18 14:41 Freq: Status: Active Protocol: Document 08/08/18 12:05 DCW (Rec: 08/08/18 12:45 DCW [id number]) OP-PT Subjective Patient Comments Patient Comments Pt reports everything is feeling pretty good today, feels like his injection is still helping with his overall pain level. PT-OP-D Balance Start: 05/09/18 14:41 Freq: Status: Active Protocol: Document 06/30/18 10:30 DCW (Rec: 06/30/18 10:49 DCW [id number]) OP-PT Balance Assessment Standing Balance Standing Balance Comments SLS: L=25 seconds, R=21 seconds Dao Fall Scale Copyright Permission Sylwia GUZMAN, Sylwia RM, Lisa SJ. Development of a scale to identify the fall- prone patient. Can J Aging 1989;8;366-7. Momo Dao (2009). Preventing patient falls. (2nd ed). [place]: [place]. PT-OP-F Manual Assessment Start: 05/09/18 15:08 Freq: Status: Active Protocol: Document 06/30/18 10:30 DCW (Rec: 06/30/18 10:49 DCW [id number]) Manual Assessments Joint Mobility Assessment Joint Mobility Assessment Left great toe PROM extension to 15 degrees. PT-OP-M Strength Start: 05/09/18 14:41 Freq: Status: Active Protocol: Document 06/30/18 10:30 DCW (Rec: 06/30/18 10:49 DCW [id number]) Trunk Strength Trunk Manual Muscle Testing Core Stabilization Core Strength - pt holds double SLR 15 seconds before fatigue, no complaints of low back pain, very large Diastasis recti with core contraction. MMT 4+/5 Hip Strength Hip Manual Muscle Testing Right Flexion (L2) 4+ Good+ Abduction 5 Normal Adduction 5 Normal External Rotation 5 Normal Internal Rotation 5 Normal Left Flexion (L2) 5 Normal Abduction 5 Normal Adduction 5 Normal External Rotation 5 Normal Internal Rotation 5 Normal Knee Strength Knee Manual Muscle Testing Right Flexion (S2) 5 Normal Extension (L3) 5 Normal Left Flexion (S2) 5 Normal Extension (L3) 5 Normal Ankle/Foot Strength Ankle and Foot Manual Muscle Testing Right Dorsiflexion (L4) 5 Normal Plantarflexion (S1) 4 Good Left Dorsiflexion (L4) 5 Normal Plantarflexion (S1) 4- Good- PT-OP-Q Treatments Start: 05/09/18 14:41 Freq: Status: Active Protocol: Document 08/08/18 12:05 DCW (Rec: 08/08/18 12:45 DCW [id number]) Cardio Equipment Recumbent Bicycle Duration (Minutes) 6 Resistance 10 Seat Position 7 Gym Equipment Cable Column (Body Solid) Leg Curl Resistance 60# Leg Extension Details 90-45 degrees Resistance 40# Reps/Time stopped d/t knee pain Shuttle Recovery Unilateral Squats Resistance 75# Shuttle Recovery Platform Stable Bilateral Squats Resistance 100# Shuttle Recovery Platform Unstable Reps/Time deep squat Shuttle Balance Red Details Wide MICHAEL (EO/EC, Perturbations ), Staggered Stance, Lateral weight-shift Therapeutic Exercises Other Exercises Resisted Fwd/Retro Ambulation Other Exercise Name Resisted Forward/Backward Stepping Resistance Blue Equipment Used T-band Resisted Side-stepping Other Exercise Name Resisted side-stepping Resistance Blue Equipment Used T-band Comments Hold mini-squat PT-OP-T Assessment and Plan Start: 05/09/18 14:41 Freq: Status: Active Protocol: Document 08/08/18 12:05 DCW (Rec: 08/08/18 12:45 DCW [id number]) Physical Therapy Assessment Impairments Impairments Activity Tolerance Balance Functional Mobility Pain Soft Tissue Mobility Strength Goals Five Impairment Decreased single leg balance Short Term Goal (STG) 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 STG Duration 08/31/18 - Improving Four Impairment Strength Short Term Goal (STG) Core strength to 4+/5 STG Duration Met Potato Inspector Goal (LTG) Gross LE MMT to 4+/5 LTG Duration 08/31/18 - Improving Three Impairment Walking tolerance Longterm Goal (LTG) Pt to ambulate one mile with no increased foot pain LTG Duration 08/31/18 Two Impairment Floor transfers Longterm Goal (LTG) Pt to get off floor of workshop without use of objects to use UE to pull himself up LTG Duration 08/31/18 One Impairment Pt does not have appropriate home exercise program Short Term Goal (STG) Pt to be independent and compliant with an appropriate HEP STG Duration Met Assessment Summary Assessment Pt had increased knee pain during knee extension for the first time today, however pain stopped immediately upon cessation of exercise. Physical Therapy Plan Frequency and Duration Frequency of Treatment 2x/Week Duration of Treatment Two months Plan of Care Start Date 06/30/18 Plan of Care End Date 08/31/18 Therapeutic Interventions Therapeutic Interventions Aquatic Therapy Balance Training Gait Training Home Exercise Program Joint Mobilizations Manual Therapy Soft Tissue Mobilization Therapeutic Activities Therapeutic Exercises Modalities Cold Pack/Ice Massage Electric Stimulation Hot Packs Ultrasound Next Visit Focus/Plan Next Note Type Treatment Note Next Visit Plan Continue ongoing POC
--- NOTE | 2018-08-12 10:31 | PT.OTN ---
Current Diagnoses Arthropathic psoriasis, unspecified (08/12/18) Unilateral primary osteoarthritis, right knee (08/12/18) Physical Therapy Treatment Note PT-OP-A Visit Information Start: 05/09/18 14:41 Freq: Status: Active Protocol: Document 08/12/18 09:45 DCW (Rec: 08/12/18 10:31 DCW [id number]) Out-Patient Physical Therapy Visit Information Visit Information Visit Type Treatment Note Visit Start Time 12:05 Visit Stop Time 12:45 Total Visit Minutes 40 Visit Number 19 Number of SOLID STATE TESTER Visits 0 Evaluation Information Evaluation Date 05/09/18 PT-OP-B Current Condition Start: 05/09/18 14:41 Freq: Status: Active Protocol: Document 05/09/18 10:30 DCW (Rec: 05/09/18 15:07 DCW [id number]) Current Condition History of Current Condition Onset Date Multi-year history Current Complaints R knee pain, LE and core weakness. History of Current Condition Pt is a 73 year old male presenting with right knee pain, LE weakness, and core weakness. Pt was scheduled for skilled PT for what was supposed to be s/p R TKA, however due to a kidney stone, pt reports his TKA surgery was blocked by a urologist, and he is now scheduled for a surgical removal of his kidney stone on 05/12/18. Since he was already wscheduled out with multiple PT appointments, however, he decided that it was a good opportunity to work on some leg and core strengthening before I did have my knee surgery, so he asked for a new referral to take advantage of his scheduled appointments. 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 Pt also notes that he can walk for miles with no leg trouble, but it causes his feet to get very sore. Future Testing and Treatments Planned R TKA Surgical removal of kidney stones 05/12/18 Treatment Goals Patient/Caregiver Goals Pt's goal is to get up off the floor easier, and to strengthen his legs prior to his TKA Prior Functional Status Baseline Function- ADL's Independent Baseline Function- Mobility Independent Current Functional Impairments (Reported) Functional Limitations- Recreation/ Difficulty getting up off Hobbies floor of workshop without something to hold on to, pain in feet with extended walking. PT-OP-C Subjective Start: 05/09/18 14:41 Freq: Status: Active Protocol: Document 08/12/18 09:45 DCW (Rec: 08/12/18 10:31 DCW [id number]) OP-PT Subjective Patient Comments Patient Comments Pt reports that he has an appointment with Dr Anna later today to go over his recent MRI and x-ray results. PT-OP-D Balance Start: 05/09/18 14:41 Freq: Status: Active Protocol: Document 06/30/18 10:30 DCW (Rec: 06/30/18 10:49 DCW [id number]) OP-PT Balance Assessment Standing Balance Standing Balance Comments SLS: L=25 seconds, R=21 seconds Dao Fall Scale Copyright Permission Sylwia GUZMAN, Sylwia RM, Lisa SJ. Development of a scale to identify the fall- prone patient. Can J Aging 1989;8;366-7. Momo Dao (2009). Preventing patient falls. (2nd ed). [place]: [place]. PT-OP-F Manual Assessment Start: 05/09/18 15:08 Freq: Status: Active Protocol: Document 06/30/18 10:30 DCW (Rec: 06/30/18 10:49 DCW [id number]) Manual Assessments Joint Mobility Assessment Joint Mobility Assessment Left great toe PROM extension to 15 degrees. PT-OP-M Strength Start: 05/09/18 14:41 Freq: Status: Active Protocol: Document 06/30/18 10:30 DCW (Rec: 06/30/18 10:49 DCW [id number]) Trunk Strength Trunk Manual Muscle Testing Core Stabilization Core Strength - pt holds double SLR 15 seconds before fatigue, no complaints of low back pain, very large Diastasis recti with core contraction. MMT 4+/5 Hip Strength Hip Manual Muscle Testing Right Flexion (L2) 4+ Good+ Abduction 5 Normal Adduction 5 Normal External Rotation 5 Normal Internal Rotation 5 Normal Left Flexion (L2) 5 Normal Abduction 5 Normal Adduction 5 Normal External Rotation 5 Normal Internal Rotation 5 Normal Knee Strength Knee Manual Muscle Testing Right Flexion (S2) 5 Normal Extension (L3) 5 Normal Left Flexion (S2) 5 Normal Extension (L3) 5 Normal Ankle/Foot Strength Ankle and Foot Manual Muscle Testing Right Dorsiflexion (L4) 5 Normal Plantarflexion (S1) 4 Good Left Dorsiflexion (L4) 5 Normal Plantarflexion (S1) 4- Good- PT-OP-Q Treatments Start: 05/09/18 14:41 Freq: Status: Active Protocol: Document 08/12/18 09:45 DCW (Rec: 08/12/18 10:31 DCW [id number]) Cardio Equipment Recumbent Bicycle Duration (Minutes) 6 Resistance 10 Seat Position 7 Gym Equipment Shuttle Recovery Unilateral Squats Resistance 75# Shuttle Recovery Platform Stable Bilateral Squats Resistance 100# Shuttle Recovery Platform Unstable Reps/Time deep squat Shuttle Balance Red Details Wide MICHAEL (Perturbations), Staggered Stance, Lateral weight-shift Therapeutic Exercises Prone Exercises Opposing UE/LE lifts in Quadruped Prone Exercise Name Opposing UE/LE lifts in Quadruped Plank /c Alternating leg raise Prone Exercise Name Plank /c Alternating leg raise Comments stopped due to back and toe pain Other Exercises Resisted Fwd/Retro Ambulation Other Exercise Name Resisted Forward/Backward Stepping Resistance Blue Equipment Used T-band Resisted Side-stepping Other Exercise Name Resisted side-stepping Resistance Blue Equipment Used T-band Comments Hold mini-squat PT-OP-T Assessment and Plan Start: 05/09/18 14:41 Freq: Status: Active Protocol: Document 08/12/18 09:45 DCW (Rec: 08/12/18 10:31 DCW [id number]) Physical Therapy Assessment Impairments Impairments Activity Tolerance Balance Functional Mobility Pain Soft Tissue Mobility Strength Goals Five Impairment Decreased single leg balance Short Term Goal (STG) 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 STG Duration 08/31/18 - Improving Four Impairment Strength Short Term Goal (STG) Core strength to 4+/5 STG Duration Met Skilled Nursing Goal (LTG) Gross LE MMT to 4+/5 LTG Duration 08/31/18 - Improving Three Impairment Walking tolerance Blast Furnace Keeper Goal (LTG) Pt to ambulate one mile with no increased foot pain LTG Duration 08/31/18 Two Impairment Floor transfers Blast Furnace Keeper Goal (LTG) Pt to get off floor of workshop without use of objects to use UE to pull himself up LTG Duration 08/31/18 One Impairment Pt does not have appropriate home exercise program Short Term Goal (STG) Pt to be independent and compliant with an appropriate HEP STG Duration Met Assessment Summary Assessment Pt demonstrated improvement in rising from floor in the clinic today, reports that he feels much more confident doing both that and standing on one foot when putting his pants on than he did at the time of his initial evaluation . Physical Therapy Plan Frequency and Duration Frequency of Treatment 2x/Week Duration of Treatment Two months Plan of Care Start Date 06/30/18 Plan of Care End Date 08/31/18 Therapeutic Interventions Therapeutic Interventions Aquatic Therapy Balance Training Gait Training Home Exercise Program Joint Mobilizations Manual Therapy Soft Tissue Mobilization Therapeutic Activities Therapeutic Exercises Modalities Cold Pack/Ice Massage Electric Stimulation Hot Packs Ultrasound Next Visit Focus/Plan Next Note Type Treatment Note Next Visit Plan Continue ongoing POC
--- NOTE | 2018-08-18 10:33 | PT.OTN ---
Current Diagnoses Arthropathic psoriasis, unspecified (08/18/18) Unilateral primary osteoarthritis, right knee (08/18/18) Physical Therapy Treatment Note PT-OP-A Visit Information Start: 05/09/18 14:41 Freq: Status: Active Protocol: Document 08/18/18 09:45 DCW (Rec: 08/18/18 10:33 DCW [id number]) Out-Patient Physical Therapy Visit Information Visit Information Visit Type Treatment Note Visit Start Time 09:45 Visit Stop Time 10:30 Total Visit Minutes 45 Visit Number 22 Number of IRRIGATION EQUIPMENT REMOVER Visits 0 Evaluation Information Evaluation Date 05/09/18 PT-OP-B Current Condition Start: 05/09/18 14:41 Freq: Status: Active Protocol: Document 05/09/18 10:30 DCW (Rec: 05/09/18 15:07 DCW [id number]) Current Condition History of Current Condition Onset Date Multi-year history Current Complaints R knee pain, LE and core weakness. History of Current Condition Pt is a 73 year old male presenting with right knee pain, LE weakness, and core weakness. Pt was scheduled for skilled PT for what was supposed to be s/p R TKA, however due to a kidney stone, pt reports his TKA surgery was blocked by a urologist, and he is now scheduled for a surgical removal of his kidney stone on 05/12/18. Since he was already wscheduled out with multiple PT appointments, however, he decided that it was a good opportunity to work on some leg and core strengthening before I did have my knee surgery, so he asked for a new referral to take advantage of his scheduled appointments. 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 Pt also notes that he can walk for miles with no leg trouble, but it causes his feet to get very sore. Future Testing and Treatments Planned R TKA Surgical removal of kidney stones 05/12/18 Treatment Goals Patient/Caregiver Goals Pt's goal is to get up off the floor easier, and to strengthen his legs prior to his TKA Prior Functional Status Baseline Function- ADL's Independent Baseline Function- Mobility Independent Current Functional Impairments (Reported) Functional Limitations- Recreation/ Difficulty getting up off Hobbies floor of workshop without something to hold on to, pain in feet with extended walking. PT-OP-C Subjective Start: 05/09/18 14:41 Freq: Status: Active Protocol: Document 08/18/18 09:45 DCW (Rec: 08/18/18 10:33 DCW [id number]) OP-PT Subjective Patient Comments Patient Comments Pt reports he has scheduled his TKA for mid-september, and he is now really looking forward to it, because he feels like his knee has been worsening over the past few days. PT-OP-D Balance Start: 05/09/18 14:41 Freq: Status: Active Protocol: Document 06/30/18 10:30 DCW (Rec: 06/30/18 10:49 DCW [id number]) OP-PT Balance Assessment Standing Balance Standing Balance Comments SLS: L=25 seconds, R=21 seconds Dao Fall Scale Copyright Permission Sylwia GUZMAN, Sylwia RM, Lisa SJ. Development of a scale to identify the fall- prone patient. Can J Aging 1989;8;366-7. Momo Dao (2009). Preventing patient falls. (2nd ed). [place]: [place]. PT-OP-F Manual Assessment Start: 05/09/18 15:08 Freq: Status: Active Protocol: Document 06/30/18 10:30 DCW (Rec: 06/30/18 10:49 DCW [id number]) Manual Assessments Joint Mobility Assessment Joint Mobility Assessment Left great toe PROM extension to 15 degrees. PT-OP-M Strength Start: 05/09/18 14:41 Freq: Status: Active Protocol: Document 06/30/18 10:30 DCW (Rec: 06/30/18 10:49 DCW [id number]) Trunk Strength Trunk Manual Muscle Testing Core Stabilization Core Strength - pt holds double SLR 15 seconds before fatigue, no complaints of low back pain, very large Diastasis recti with core contraction. MMT 4+/5 Hip Strength Hip Manual Muscle Testing Right Flexion (L2) 4+ Good+ Abduction 5 Normal Adduction 5 Normal External Rotation 5 Normal Internal Rotation 5 Normal Left Flexion (L2) 5 Normal Abduction 5 Normal Adduction 5 Normal External Rotation 5 Normal Internal Rotation 5 Normal Knee Strength Knee Manual Muscle Testing Right Flexion (S2) 5 Normal Extension (L3) 5 Normal Left Flexion (S2) 5 Normal Extension (L3) 5 Normal Ankle/Foot Strength Ankle and Foot Manual Muscle Testing Right Dorsiflexion (L4) 5 Normal Plantarflexion (S1) 4 Good Left Dorsiflexion (L4) 5 Normal Plantarflexion (S1) 4- Good- PT-OP-Q Treatments Start: 05/09/18 14:41 Freq: Status: Active Protocol: Document 08/18/18 09:45 DCW (Rec: 08/18/18 10:33 DCW [id number]) Cardio Equipment Recumbent Bicycle Duration (Minutes) 6 Resistance 10 Seat Position 7 Gym Equipment Cable Column (Body Solid) Leg Curl Resistance 60# Leg Extension Details 90-45 degrees Resistance 40# Reps/Time stopped d/t knee pain Shuttle Recovery Unilateral Squats Resistance 75# Shuttle Recovery Platform Stable Bilateral Squats Resistance 100# Shuttle Recovery Platform Unstable Reps/Time deep squat Shuttle Balance Red Details Wide MICHAEL (Perturbations), Staggered Stance, Lateral weight-shift Therapeutic Exercises Prone Exercises Opposing UE/LE lifts in Quadruped Prone Exercise Name Opposing UE/LE lifts in Quadruped Plank /c Alternating leg raise Prone Exercise Name Plank /c Alternating leg raise Comments stopped due to back and toe pain PT-OP-T Assessment and Plan Start: 05/09/18 14:41 Freq: Status: Active Protocol: Document 08/18/18 09:45 DCW (Rec: 08/18/18 10:33 DCW [id number]) Physical Therapy Assessment Impairments Impairments Activity Tolerance Balance Functional Mobility Pain Soft Tissue Mobility Strength Goals Five Impairment Decreased single leg balance Short Term Goal (STG) Pt to clinical sales consultant single leg stance for 25 seconds bilaterally. STG Duration 09/14/18 - Improving Four Impairment Strength Short Term Goal (STG) Core strength to 4+/5 STG Duration Met Recorder Gravity Prospecting Goal (LTG) Gross LE MMT to 4+/5 LTG Duration 09/14/18 - Improving Three Impairment Walking tolerance Recorder Gravity Prospecting Goal (LTG) Pt to ambulate one mile with no increased foot pain LTG Duration 09/14/18 Two Impairment Floor transfers Mcfp Goal (LTG) Pt to get off floor of workshop without use of objects to use UE to pull himself up LTG Duration 09/14/18 One Impairment Pt does not have appropriate home exercise program Short Term Goal (STG) Pt to be independent and compliant with an appropriate HEP STG Duration Met Assessment Summary Assessment Continue improving overall LE strength and core strength in preparation for pt's upcoming TKA Physical Therapy Plan Frequency and Duration Frequency of Treatment 2x/Week Duration of Treatment Two months Plan of Care Start Date 06/30/18 Plan of Care End Date 08/31/18 Therapeutic Interventions Therapeutic Interventions Aquatic Therapy Balance Training Gait Training Home Exercise Program Joint Mobilizations Manual Therapy Soft Tissue Mobilization Therapeutic Activities Therapeutic Exercises Modalities Cold Pack/Ice Massage Electric Stimulation Hot Packs Ultrasound Next Visit Focus/Plan Next Note Type Treatment Note Next Visit Plan Continue ongoing POC
--- NOTE | 2018-08-30 15:59 | PT.OTN ---
Current Diagnoses Arthropathic psoriasis, unspecified (08/30/18) Unilateral primary osteoarthritis, right knee (08/30/18) Physical Therapy Treatment Note PT-OP-A Visit Information Start: 05/09/18 14:41 Freq: Status: Active Protocol: Document 08/30/18 15:15 DCW (Rec: 08/30/18 15:59 DCW [id number]) Out-Patient Physical Therapy Visit Information Visit Information Visit Type Treatment Note Visit Start Time 15:15 Visit Stop Time 16:00 Total Visit Minutes 45 Visit Number 23 Number of HORTICULTURE TEACHER Visits 0 Evaluation Information Evaluation Date 05/09/18 PT-OP-B Current Condition Start: 05/09/18 14:41 Freq: Status: Active Protocol: Document 05/09/18 10:30 DCW (Rec: 05/09/18 15:07 DCW [id number]) Current Condition History of Current Condition Onset Date Multi-year history Current Complaints R knee pain, LE and core weakness. History of Current Condition Pt is a 73 year old male presenting with right knee pain, LE weakness, and core weakness. Pt was scheduled for skilled PT for what was supposed to be s/p R TKA, however due to a kidney stone, pt reports his TKA surgery was blocked by a urologist, and he is now scheduled for a surgical removal of his kidney stone on 05/12/18. Since he was already wscheduled out with multiple PT appointments, however, he decided that it was a good opportunity to work on some leg and core strengthening before I did have my knee surgery, so he asked for a new referral to take advantage of his scheduled appointments. 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 Pt also notes that he can walk for miles with no leg trouble, but it causes his feet to get very sore. Future Testing and Treatments Planned R TKA Surgical removal of kidney stones 05/12/18 Treatment Goals Patient/Caregiver Goals Pt's goal is to get up off the floor easier, and to strengthen his legs prior to his TKA Prior Functional Status Baseline Function- ADL's Independent Baseline Function- Mobility Independent Current Functional Impairments (Reported) Functional Limitations- Recreation/ Difficulty getting up off Hobbies floor of workshop without something to hold on to, pain in feet with extended walking. PT-OP-C Subjective Start: 05/09/18 14:41 Freq: Status: Active Protocol: Document 08/30/18 15:15 DCW (Rec: 08/30/18 15:59 DCW [id number]) OP-PT Subjective Patient Comments Patient Comments Pt notes that his knee has been quite a bit worse, and reports that he has been a lot more tired than normal recently. PT-OP-D Balance Start: 05/09/18 14:41 Freq: Status: Active Protocol: Document 06/30/18 10:30 DCW (Rec: 06/30/18 10:49 DCW [id number]) OP-PT Balance Assessment Standing Balance Standing Balance Comments SLS: L=25 seconds, R=21 seconds Dao Fall Scale Copyright Permission Sylwia GUZMAN, Sylwia RM, Lisa SJ. Development of a scale to identify the fall- prone patient. Can J Aging 1989;8;366-7. Momo Dao (2009). Preventing patient falls. (2nd ed). [place]: [place]. PT-OP-F Manual Assessment Start: 05/09/18 15:08 Freq: Status: Active Protocol: Document 06/30/18 10:30 DCW (Rec: 06/30/18 10:49 DCW [id number]) Manual Assessments Joint Mobility Assessment Joint Mobility Assessment Left great toe PROM extension to 15 degrees. PT-OP-M Strength Start: 05/09/18 14:41 Freq: Status: Active Protocol: Document 06/30/18 10:30 DCW (Rec: 06/30/18 10:49 DCW [id number]) Trunk Strength Trunk Manual Muscle Testing Core Stabilization Core Strength - pt holds double SLR 15 seconds before fatigue, no complaints of low back pain, very large Diastasis recti with core contraction. MMT 4+/5 Hip Strength Hip Manual Muscle Testing Right Flexion (L2) 4+ Good+ Abduction 5 Normal Adduction 5 Normal External Rotation 5 Normal Internal Rotation 5 Normal Left Flexion (L2) 5 Normal Abduction 5 Normal Adduction 5 Normal External Rotation 5 Normal Internal Rotation 5 Normal Knee Strength Knee Manual Muscle Testing Right Flexion (S2) 5 Normal Extension (L3) 5 Normal Left Flexion (S2) 5 Normal Extension (L3) 5 Normal Ankle/Foot Strength Ankle and Foot Manual Muscle Testing Right Dorsiflexion (L4) 5 Normal Plantarflexion (S1) 4 Good Left Dorsiflexion (L4) 5 Normal Plantarflexion (S1) 4- Good- PT-OP-Q Treatments Start: 05/09/18 14:41 Freq: Status: Active Protocol: Document 08/30/18 15:15 DCW (Rec: 08/30/18 15:59 DCW [id number]) Cardio Equipment Recumbent Bicycle Duration (Minutes) 6 Resistance 10 Seat Position 8 Gym Equipment Cable Column (Body Solid) Leg Curl Resistance 60# Leg Extension Details 90-45 degrees Resistance 40# Reps/Time stopped d/t knee pain Shuttle Recovery Unilateral Squats Resistance 75# Shuttle Recovery Platform Stable Bilateral Squats Resistance 125# Shuttle Recovery Platform Stable Reps/Time deep squat Shuttle Balance Red Details Wide MICHAEL (Perturbations), Staggered Stance, Lateral weight-shift Therapeutic Exercises Other Exercises Resisted Fwd/Retro Ambulation Other Exercise Name Resisted Forward/Backward Stepping Resistance Blue Equipment Used T-band Resisted Side-stepping Other Exercise Name Resisted side-stepping Resistance Blue Equipment Used T-band Comments Hold mini-squat PT-OP-T Assessment and Plan Start: 05/09/18 14:41 Freq: Status: Active Protocol: Document 08/30/18 15:15 DCW (Rec: 08/30/18 15:59 DCW [id number]) Physical Therapy Assessment Impairments Impairments Activity Tolerance Balance Functional Mobility Pain Soft Tissue Mobility Strength Goals Five Impairment Decreased single leg balance Short Term Goal (STG) Pt to clip on sunglasses inspector single leg stance for 25 seconds bilaterally. STG Duration 09/14/18 - Improving Four Impairment Strength Short Term Goal (STG) Core strength to 4+/5 STG Duration Met Car Shagger Goal (LTG) Gross LE MMT to 4+/5 LTG Duration 09/14/18 - Improving Three Impairment Walking tolerance Senior Care Goal (LTG) Pt to ambulate one mile with no increased foot pain LTG Duration 09/14/18 Two Impairment Floor transfers Senior Care Goal (LTG) Pt to get off floor of workshop without use of objects to use UE to pull himself up LTG Duration 09/14/18 One Impairment Pt does not have appropriate home exercise program Short Term Goal (STG) Pt to be independent and compliant with an appropriate HEP STG Duration Met Assessment Summary Assessment Pt prepping for upcoming TKA, will likely not be seen again prior to surgery. Physical Therapy Plan Frequency and Duration Frequency of Treatment 2x/Week Duration of Treatment Two months Plan of Care Start Date 06/30/18 Plan of Care End Date 08/31/18 Therapeutic Interventions Therapeutic Interventions Aquatic Therapy Balance Training Gait Training Home Exercise Program Joint Mobilizations Manual Therapy Soft Tissue Mobilization Therapeutic Activities Therapeutic Exercises Modalities Cold Pack/Ice Massage Electric Stimulation Hot Packs Ultrasound Next Visit Focus/Plan Next Note Type Treatment Note Next Visit Plan Continue ongoing POC
--- NOTE | 2018-09-07 09:36 | PT.OPDS ---
Current Diagnoses Arthropathic psoriasis, unspecified (08/30/18) Unilateral primary osteoarthritis, right knee (08/30/18) Provider Visit Care Team Role Provider Type Kavita Aranda MD Family Provider Non-Staff Primary Care Provider Specialty: Internal Medicine Address: [id number] [place] [address], [address], [place], [address] Email: Franck Ugarte MD Attending Provider Non-Staff Specialty: Internal Medicine Address: [id number] [place] [address], [address], [place], [address] Email: Visit Number Visit Number 23 Discharge Summary PT-OP-B Current Condition Start: 05/09/18 14:41 Freq: Status: Active Protocol: Document 05/09/18 10:30 DCW (Rec: 05/09/18 15:07 DCW [id number]) Current Condition History of Current Condition Onset Date Multi-year history Current Complaints R knee pain, LE and core weakness. History of Current Condition Pt is a 73 year old male presenting with right knee pain, LE weakness, and core weakness. Pt was scheduled for skilled PT for what was supposed to be s/p R TKA, however due to a kidney stone, pt reports his TKA surgery was blocked by a urologist, and he is now scheduled for a surgical removal of his kidney stone on 05/12/18. Since he was already wscheduled out with multiple PT appointments, however, he decided that it was a good opportunity to work on some leg and core strengthening before I did have my knee surgery, so he asked for a new referral to take advantage of his scheduled appointments. 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 Pt also notes that he can walk for miles with no leg trouble, but it causes his feet to get very sore. Future Testing and Treatments Planned R TKA Surgical removal of kidney stones 05/12/18 Treatment Goals Patient/Caregiver Goals Pt's goal is to get up off the floor easier, and to strengthen his legs prior to his TKA Prior Functional Status Baseline Function- ADL's Independent Baseline Function- Mobility Independent Current Functional Impairments (Reported) Functional Limitations- Recreation/ Difficulty getting up off Hobbies floor of workshop without something to hold on to, pain in feet with extended walking. PT-OP-C Subjective Start: 05/09/18 14:41 Freq: Status: Active Protocol: Document 08/30/18 15:15 DCW (Rec: 08/30/18 15:59 DCW [id number]) OP-PT Subjective Patient Comments Patient Comments Pt notes that his knee has been quite a bit worse, and reports that he has been a lot more tired than normal recently. PT-OP-D Balance Start: 05/09/18 14:41 Freq: Status: Active Protocol: Document 06/30/18 10:30 DCW (Rec: 06/30/18 10:49 DCW [id number]) OP-PT Balance Assessment Standing Balance Standing Balance Comments SLS: L=25 seconds, R=21 seconds Dao Fall Scale Copyright Permission Sylwia GUZMAN, Sylwia RM, Lisa SJ. Development of a scale to identify the fall- prone patient. Can J Aging 1989;8;366-7. Momo Dao (2009). Preventing patient falls. (2nd ed). [place]: [place]. PT-OP-F Manual Assessment Start: 05/09/18 15:08 Freq: Status: Active Protocol: Document 06/30/18 10:30 DCW (Rec: 06/30/18 10:49 DCW [id number]) Manual Assessments Joint Mobility Assessment Joint Mobility Assessment Left great toe PROM extension to 15 degrees. PT-OP-M Strength Start: 05/09/18 14:41 Freq: Status: Active Protocol: Document 06/30/18 10:30 DCW (Rec: 06/30/18 10:49 DCW [id number]) Trunk Strength Trunk Manual Muscle Testing Core Stabilization Core Strength - pt holds double SLR 15 seconds before fatigue, no complaints of low back pain, very large Diastasis recti with core contraction. MMT 4+/5 Hip Strength Hip Manual Muscle Testing Right Flexion (L2) 4+ Good+ Abduction 5 Normal Adduction 5 Normal External Rotation 5 Normal Internal Rotation 5 Normal Left Flexion (L2) 5 Normal Abduction 5 Normal Adduction 5 Normal External Rotation 5 Normal Internal Rotation 5 Normal Knee Strength Knee Manual Muscle Testing Right Flexion (S2) 5 Normal Extension (L3) 5 Normal Left Flexion (S2) 5 Normal Extension (L3) 5 Normal Ankle/Foot Strength Ankle and Foot Manual Muscle Testing Right Dorsiflexion (L4) 5 Normal Plantarflexion (S1) 4 Good Left Dorsiflexion (L4) 5 Normal Plantarflexion (S1) 4- Good- PT-OP-T Assessment and Plan Start: 05/09/18 14:41 Freq: Status: Active Protocol: Document 08/30/18 15:15 DCW (Rec: 08/30/18 15:59 DCW [id number]) Physical Therapy Assessment Impairments Impairments Activity Tolerance Balance Functional Mobility Pain Soft Tissue Mobility Strength Goals Five Impairment Decreased single leg balance Short Term Goal (STG) 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 STG Duration 09/14/18 - Improving Four Impairment Strength Short Term Goal (STG) Core strength to 4+/5 STG Duration Met Mailer Goal (LTG) Gross LE MMT to 4+/5 LTG Duration 09/14/18 - Improving Three Impairment Walking tolerance [facility] Goal (LTG) Pt to ambulate one mile with no increased foot pain LTG Duration 09/14/18 Two Impairment Floor transfers [facility] Goal (LTG) Pt to get off floor of workshop without use of objects to use UE to pull himself up LTG Duration 09/14/18 One Impairment Pt does not have appropriate home exercise program Short Term Goal (STG) Pt to be independent and compliant with an appropriate HEP STG Duration Met Assessment Summary Assessment Pt prepping for upcoming TKA, will likely not be seen again prior to surgery. Physical Therapy Plan Frequency and Duration Frequency of Treatment 2x/Week Duration of Treatment Two months Plan of Care Start Date 06/30/18 Plan of Care End Date 08/31/18 Therapeutic Interventions Therapeutic Interventions Aquatic Therapy Balance Training Gait Training Home Exercise Program Joint Mobilizations Manual Therapy Soft Tissue Mobilization Therapeutic Activities Therapeutic Exercises Modalities Cold Pack/Ice Massage Electric Stimulation Hot Packs Ultrasound Next Visit Focus/Plan Next Note Type Treatment Note Next Visit Plan Continue ongoing POC
== END 2018-12-29 13:31 | disposition home or self-care (01) ==
LOC: PHYS 15:15
PROVIDERS: Family Provider Internal Medicine; PCP Internal Medicine; Visit Provider Internal Medicine
DX: M17.11 Unilateral primary osteoarthritis, right knee (principal); L40.50 Arthropathic psoriasis, unspecified
CPT/HCPCS: 97110; 97112; 97140; 97161

== ENCOUNTER 2018-09-06 11:51 | Day surgery (SDC) | payer MEDICARE, OTHER, SELFPAY ==
[2018-02-05 20:44] VITALS: BMI 43.1
[2018-09-02 12:41] VITALS: BMI 31.1
[2018-09-06] VITALS (16 sets, daily range): BP systolic 97–157; BP diastolic 59–81; PULSE 64–81; RESP 12–20; TEMP 36.3–36.8; O2SAT 93–100; BMI 31.1
--- NOTE | 2018-09-06 10:21 | DI.RAD.S_ITS ---
PROCEDURE: XR KNEE RT 1TO2V INDICATIONS: prosthesis placement TECHNIQUE: 2 view(s) of the knee acquired. COMPARISON: None. FINDINGS: Bones: Patient is status post knee joint arthroplasty. Hardware components are in expected positions. Visualized bony structures are intact. Soft tissues: Overlying postoperative changes are noted. IMPRESSION: Status post right total knee arthroplasty. Dictated by: Lori Caballero M.D. on 09/06/2018 at 16:31 Approved by: Lori Caballero M.D. on 09/06/2018 at 16:31
[2018-09-06] MEDS: LACTATED RINGERS 1,000 ML 42 ML IV (12:25)
[2018-09-06] MEDS: CELECOXIB 200 MG CAPSULE PO (12:28)
[2018-09-06] MEDS: PREGABALIN 75 MG CAPSULE PO (12:29)
[2018-09-06] MEDS: ACETAMINOPHEN 325 MG TABLET 975 MG PO ×2 (12:29→21:16)
[2018-09-06] MEDS: VANCOMYCIN 1,000 MG/200 ML FROZ.PIGGY 200 MG IV (12:45)
--- NOTE | 2018-09-06 13:11 | PM.PREOP ---
Pre-operative Note Interval Note History & Physical reviewed/Exam performed by Physician: Yes Changes to H&P: No
--- NOTE | 2018-09-06 13:19 | P.OP_ITS ---
Operative Date/Time/Diagnoses Date of procedure: 09/06/18 Time of procedure: 13:32 Pre-op diagnosis: right knee OA Post-op diagnosis: same Procedure & Clinicians Procedure: right total knee arthroplasty Same procedure as scheduled: Yes Indications: The patient has had progressively worsening right knee pain with radiographic changes consistent with arthritis. Non-operative management has failed and the patient has requested total knee replacement. The risks, benefits and alternatives to surgery were discussed with the patient prior to proceeding. Risks discussed included, but were not limited to, failure to relieve pain, stiffness, infection, nerve damage, deep venous thrombosis, pulmonary embolism, stroke, coma, heart attack, permanent paralysis and , as well as the potential need for eventual revision of the prosthetic. Surgeon: Lucy Anna Technical Staff Assistant: Dana Johnson Anesthesia Type: General and Spinal Operative Notes Findings: Severe knee OA, good stability Closure Type: primary Specimen(s): none sent Prosthetic devices, grafts, tissues, transplants, or devices: Anna and Nephew K[place] be CS size 7 femur, size 5 tibia, +9 poly, 38 mm patella Applied: drain(s) Estimated Blood Loss (mL): 250 Blood products transfused: none Tourniquet time (min): 65 Procedure in detail: The patient was seen in the pre-operative area, where the p atient identified the right knee as the operative site and this was marked with my initials. The patient received pre-operative antibiotics, and was taken to the operating room and placed on the operative table in the supine position. After satisfactory anesthesia, a part time out was performed. The right leg was encircled with a tourniquet about the proximal thigh, and the leg was prepared from the toes to the tourniquet with ChloroPrep in the usual fashion and draped through sterile drapes. The leg was elevated and exsanguinated with Eschmark bandage and the tourniquet inflated to [250] mmHg pressure. The knee was approached through an approximately 18 cm incision centered over the patella and carried into the knee through a medial parapatellar arthrotomy. A portion of the medial and lateral meniscus was resected. Soft tissue was carefully mobilized around the patella the patella was measured with a caliper. Bone was resected from the patella and the patellar height was reconstituted with up an appropriate sized patellar component. A cover was then placed on the patella. A small amount of additional medial and lateral meniscus was resected. The visionare guide fit well to the distal femur. It looked like an appropriate distal femoral cut and the cut was made without difficulty. The rotation was assessed and the appropriate size femoral guide was placed on the distal femur and finishing cuts were made. There was no evidence of notching. The anterior, posterior and chamfer cuts were then made. The posterior osteophytes and soft tissues were then removed. The posterior capsule was injected with part of a mixture of 60 ml 0.25% Marcaine mixed with 20 ml Exparel for post operative pain control. The remainder of this mixture was injected into the capsule and subcutaneous tissues during cement curing. The tibia was prepared and the visionaire guide fit well to the distal tibia. The rotation was assessed. The patient was placed in extension residual medial and lateral meniscus as well as any residual bone was carefully resected. [No] additional tibia was resected. Hemostasis was achieved especially posteriorly. Additional local was injected into the posterior capsule. The extension gap was assessed and additional releases for gap balancing were performed as necessary. It was checked with the gap material stockkeeper yard. The femoral component was trial was placed and the notch was finished. Trial tibial and femoral components were then placed and the knee placed through a range of motion. Range of motion was [0-130], with good stability throughout the range. The trials were then removed, and the tibia was finished. The bone was prepared with pulsatile lavage, and dried with a sponge. Cement was applied and the final prosthetics placed. Excess cement was removed during and after cement curing. A brief Betadine soak was performed. After confirming there was no extruded cement posteriorly, the final tibial insert was placed. The knee was copiously irrigated and the tourniquet deflated. Hemostasis was obtained with the Bovie. A drain was placed and brought out superolaterally. The capsule was closed with interrupted Vicryl. The subcutaneous layer was closed with barbed sutures, and the skin with a running 3-0 V-Lock suture and Surgical glue. An Aquacel Ag dressing was applied and the patient was taken to recovery having tolerated the procedure well. Complications: none Condition: stable Disposition: Acute Care Plan for aftercare: The patient will be maintained on a standard total knee replacement protocol with weight bearing as tolerated. The patient will receive xarelto and sequential compression devices for DVT prophylaxis. The patient will be discharged home when safe for the home environment.
[2018-09-06] MEDS: CEFAZOLIN 2 GM/100 ML FROZ.PIGGY IV ×2 (13:23→21:54)
[2018-09-06] MEDS: TRANEXAMIC ACID 1,000 MG VIAL 1000 MG INJ ×2 (13:30→15:05)
--- NOTE | 2018-09-06 13:51 | SUR.OPER ---
Supine on padded OR bed. Pillow under head, arms secured on padded armboards <90 degree abduction. Safety belt across torso. Non-operative leg secured with tape over blanket over lower leg. Operative leg secured in DeMayo/Matthew positioner. Foam padded brace at thigh of operative leg.
[2018-09-06] MEDS: BUPIVACAINE 0.25% W/ EPI VIAL 60 ML INJ (14:01)
[2018-09-06] MEDS: BUPIVACAINE LIPOSOME 266 MG/20 ML VIAL INJ (14:01)
[2018-09-06] MEDS: POVIDONE-IODINE 15 ML, SODIUM CHLORIDE 0.9% 250 ML TOP (14:57)
[2018-09-06] MEDS: LACTATED RINGERS 1,000 ML 125 ML IV (17:10)
[2018-09-06] MEDS: OXYCODONE IR 5 MG TABLET PO ×2 (18:17→21:16)
[2018-09-06] MEDS: ASPIRIN EC 81 MG TABLET PO (21:17)
[2018-09-06] MEDS: DOCUSATE 100 MG CAPSULE PO (21:18)
[2018-09-06] MEDS: METOPROLOL ER 25 MG TABLET PO (21:18)
[2018-09-06] MEDS: GABAPENTIN 600 MG TABLET PO (21:18)
--- NOTE | 2018-09-06 23:50 | PC.NURSE ---
Tere shift note: Patient admitted to AC room 203 from PACU S/P Right TKA. Patient awake, alert, tolerating PO intake. Hemovac to RLE secured with Sanguinous drainage. VSS and afebrile. Aquacel and Acewrap CDI.. Oriented to room, environment and plan of care.
[2018-09-07] MEDS: OXYCODONE IR 5 MG TABLET PO ×4 (01:05→14:01)
[2018-09-07 03:02] VITALS: BP 131/70; PULSE 63; RESP 20; TEMP 36.7; O2SAT 94
[2018-09-07] MEDS: LACTATED RINGERS 1,000 ML 125 ML IV (03:48)
[2018-09-07] MEDS: CEFAZOLIN 2 GM/100 ML FROZ.PIGGY IV (05:35)
[2018-09-07 07:10] LABS: Hematocrit 42.2 % (41-53); Hemoglobin 13.6 g/dL (13.5-17.5)
--- NOTE | 2018-09-07 07:25 | P.DS_ITS ---
History of Present Illness Date Patient Seen: 09/07/18 Chief complaint: Right Total Knee Arthroplasty [id number] Narrative: Patient seen bedside s/p R. TKA POD #1. Patient is doing well, his pain is well controlled and he denies N/V, CP, SOB. He has not yet worked with PT but would like to go home today. Discharge Providers Date of admission: 09/06/18 11:51 Discharge Date: 09/07/18 Primary care physician: Kavita Aranda MD Consults: 09/02/18 13:54 Consult to Anesthesiology Routine Comment: Consulting Provider: Anesthesiologist Reason for consultation: Surgeon requested re: Cardiac 09/06/18 10:21 Consult to Anesthesiology Routine Comment: Consulting Provider: Anesthesiologist Reason for consultation: Regional block for post operative pain control 09/06/18 12:39 Consult to Respiratory Therapy Evaluate & Treat Comment: Physician Instructions: Evaluate and treat 09/06/18 16:49 Consult to Discharge Planning Routine Comment: Consult to Physical Therapy Evaluate & Treat Comment: oob today Physician Instructions: postop TKA protocol Consult to Respiratory Therapy Evaluate & Treat Comment: Physician Instructions: Evaluate and treat Discharge provider: Dana Johnson PA-C Summary Discharge Diagnosis: Right knee osteoarthritis Hospital Course: Patient was admitted to the hospital s/p R. TKA on 09/06/[address] Anna. Patient tolerated the procedure well with no major complications. They were transferred to the acute care floor where they were placed on the standard joint replacement pathway and protocol. They were seen by physical therapy who recommended that they be discharged home. They were stable and ready for discharge on 09/07/18. Status at Discharge Cognitive/behavioral status at discharge: Alert & oriented x3 Functional status at discharge: uses cane/walker Overall status at discharge: patient is progressing back to baseline Time Spent with Patient Less than 30 minutes Exam Vital Signs (past 8 hours): - 09/06/18 23:42 09/07/18 03:02 Temperature 97.3 F L 98.0 F Pulse Rate 73 63 Respiratory Rate 20 20 Blood Pressure 124/72 131/70 Pulse Oximetry 95 94 Oxygen Delivery Method Room Air Oxygen Flow Rate 2 Narrative Exam Narrative: Well-developed, well-nourished, no acute distress. Alert & oriented x3. Dressing on right knee is clean, dry, and intact with no signs of drainage. Calf is soft and compressible, pulses palpable and full ROM of the foot & ankle. Objective Labs Result Diagrams: 09/07/18 06:40 Labs: Laboratory Results - last 24 hr 09/07/18 06:40 Hgb 13.6 Hct 42.2 Discharge Plan Discharge Plan Patient Disposition: Home Discharge comment: d/c after cleared by PT Discharge Med Rec/Prescriptions Prescriptions: New acetaminophen 325 mg Tablet 975 mg PO TID Qty: 0 RF: 0 docusate sodium 100 mg Capsule 100 mg PO BID Qty: 0 RF: 0 oxycodone 5 mg Tablet 5 mg PO Q4-6H PRN (Reason: Pain, Moderate (4-6)) Qty: 0 RF: 0 hydroxyzine pamoate 25 mg Capsule 25 mg PO Q4HR PRN (Reason: Muscle Spasm) Qty: 0 RF: 0 Continued metoprolol succinate 50 mg tablet extended release 24 hr 25 mg PO BID RF: 0 methotrexate sodium 2.5 mg tablet 7.5 mg PO SEEINSTR RF: 0 bupropion HCl 150 mg tablet extended release 24 hr 150 mg PO DAILY RF: 0 atorvastatin 10 mg tablet 10 mg PO DAILY RF: 0 diethylpropion 25 mg tablet 25 mg PO TID RF: 0 gabapentin 300 mg capsule 600 mg PO BEDTIME RF: 0 Xarelto 20 mg tablet 20 mg PO DAILY Qty: 30 RF: 0 fluoxetine 20 mg Capsule 20 mg PO DAILY RF: 0 vardenafil 20 mg Tablet 20 mg PO DAILY PRN (Reason: Sexual Activity) RF: 0 Discontinued scopolamine base 1 mg over 3 days patch 3 day 1 patch Topical Q3-4D PRN (Reason: During ocean racing) RF: 0 Follow up/Referrals: Lucy Anna MD [Physician] - (Follow up at your previously scheduled post- operative appointment in 5-7 days.) Discharge Orders: Discharge (Order); Ordered 09/07/18 Ordered By: Dana Johnson Provider Discharge Instructions Diet: Diet as Tolerated Activity: Weightbearing as tolerated, use walker until cleared by physical therapy. Elevate operative leg regularly to reduce swelling. Cold/Heat Therapy: Apply ice to affected area for 20 minutes at a time at least hourly while awake. Skin/Wound/Dressing Care Report to your healthcare provider any signs of infection, such as:: chills, fever, night sweats, increased pain, unusual drainage and unusual redness Dressing: Keep dressing clean, dry, and intact. May shower with it in place but no soaking. Visit Report/Discharge Packet Instructions: DI for Knee Replacement, Oxycodone, Hydroxyzine (By mouth) Stand Alone Forms: Surgery Discharge Discharge Data Primary Care Provider: Kavita Aranda Attending Provider: Lucy Anna Discharges patient from system. Discharge Date/Time: 09/07/18 16:00 Quality VTE Deep Vein Thrombosis/Pulmonary Embolism Present on Admission: No
[2018-09-07 07:55] VITALS: BP 130/73; PULSE 57; RESP 18; TEMP 36.4; O2SAT 97
[2018-09-07] MEDS: FLUoxetine 20 MG CAPSULE PO (08:48)
[2018-09-07] MEDS: RIVAROXABAN 10 MG TABLET 20 MG PO (08:49)
[2018-09-07] MEDS: DOCUSATE 100 MG CAPSULE PO (08:49)
[2018-09-07] MEDS: METOPROLOL ER 25 MG TABLET PO (08:49)
[2018-09-07] MEDS: buPROPion XL 150 MG TAB PO (08:49)
[2018-09-07] MEDS: ATORVASTATIN 10 MG TABLET PO (08:51)
[2018-09-07] MEDS: ACETAMINOPHEN 325 MG TABLET 975 MG PO ×2 (08:51→14:32)
--- NOTE | 2018-09-07 11:46 | PT.IIE ---
Current Diagnoses Unilateral primary osteoarthritis, right knee (09/06/18) Surgery Performed Operation Date: 09/06/18 13:45 Actual Procedures p Total Knee Arthroplasty(Right) - Lucy Anna MD Surgical History (Last Updated 09/02/18 @ 13:00 by Sabina Sanchez RN) History of total left knee replacement (TKR) (Acute) Hx of lithotripsy (Acute) Medical History (Last Updated 09/02/18 @ 13:30 by Sabina Sanchez RN) Alcoholism (Acute) Anxiety (Acute) Atrophic gastritis (Acute) Chronic low back pain (Acute) Cyst in hand (Acute ~2019) Depression (Acute) Diverticulosis (Acute) Dizziness (Acute) Erectile dysfunction (Acute) HTN (hypertension) (Acute) History of colon polyps (Acute) Hydronephrosis (Acute) Hyperlipidemia (Acute) Insomnia (Acute) Ischemia (Acute) Nephrolithiasis (Acute) YAIMA on CPAP (Acute) Osteoarthritis (Acute) Paroxysmal atrial fibrillation (Acute) Paroxysmal atrial flutter (Acute) Prediabetes (Acute) Psoriasis (Acute) Psoriatic arthritis (Acute) Psoriatic arthropathy (Acute) RLS (restless legs syndrome) (Acute) Retroperitoneal mass (Acute) Sinus congestion (Acute) Syncope (Acute) Testosterone deficiency (Acute) Vitamin D deficiency (Acute) Physical Therapy Inpatient Evaluation/Re-Eval M1 PT/OT-IP Prior Functional Status Start: 09/07/18 11:28 Freq: NEEDED Status: Active Protocol: Document 09/07/18 10:30 (Rec: 09/07/18 11:46 [id number]) Medical Review Prior Functional Status Medical History Reviewed Yes Diet/Fluid Consistency Regular Communication No deficits noted Mobility and Gait Pt was an independent ambulator at home and community without using AD. 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 Pt also drives. Activities of Daily Living and IADL's Pt was independent for all ADLs and IADLS without using AD. Social History Household Members spouse Living Arrangements House Number of Floors (Floors) One Floor Number of Stairs To Enter/Railing? 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 Pt expects to return to work as soon as he is physicall ready. Pt scheduled outpatient PT at for cont rehab. M2 PT-IP Current Condition Start: 09/07/18 11:28 Freq: NEEDED Status: Active Protocol: Document 09/07/18 10:30 HH (Rec: 09/07/18 11:46 [email or web address]) Physical Therapy Current Condition Current Condition Evaluation Date 09/07/18 Treatment Diagnosis R TKA, difficulty in walking and R LE weakness Onset Date 09/06/18 Weight Bearing Status Weight Bearing Status Weight Bear as Tolerated M3 PT-IP Subjective Start: 09/07/18 11:28 Freq: NEEDED Status: Active Protocol: Document 09/07/18 10:30 HH (Rec: 09/07/18 11:46 [email or web address]) Subjective Physical Therapy Visit Type Type Initial Evaluation Visit Start Time 10:30 Visit Stop Time 10:50 Total Visit Minutes [address]. Pt has been OOB since last night to use bathroom with FWW. 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 Patient Goals To return home with his and pariticpate outpatient PT To cont work as an refrigeration engineer Therapy Pain Assessment Pain When Pain Assessed During Mobility Pain Present Pain Present Pain Reported Location Right Knee Intensity 3 Scale Used Numeric (1 - 10) Description Acute Pain Management Techniques Apply Cold Modification of Treatment Re-positioning Timing of Activity with Medications M4 PT-IP Mobility and Gait Start: 09/07/18 11:28 Freq: NEEDED Status: Active Protocol: Document 09/07/18 10:30 HH (Rec: 09/07/18 11:46 [id number]) PT-Transfer Assessment Sit to and From Stand Sit to and from Stand Standby Assistance Use of Upper Extremities Equipment Transfer Assistive Device Gait Belt Front Wheeled Walker Transfers Transfer Destination Bed Chair Toilet Transfer Technique Stand Step Pivot Transfer Ability Level of Assist Standby Assistance Use of Upper Extremities Comments Mobility Comments Pt was seen up in his chair upon assessment. Pt stood up and amb to bathroom for toileting. Pt stood up for 2 mins unsupported. He then amb to hallway and returned back to chair. Pt was able to use stagger stance for stand to sit safely. Gait Assessment Gait Gait Assistance Required: Standby Assistance Distance (Feet) 150 Able to Maintain Weight Bearing Status Yes During Gait Assistive Devices Assistive Device Gait Belt Front Wheeled Walker Gait Deviations General Gait Pattern Antalgic Decreased Stride Length Decreased Feet Clearance Factors Limiting Gait Function Factors Limiting Gait Function Decreased Activity Tolerance Decreased Strength Limited Range of Motion Pain Comments Gait Comments Able to amb from chair to hallway for 1 loop for 150ft FWW SBA. Pt presented R antalgic gait with decreased foot clearance and knee flexion. Pt was very steadyt and has a good understanding of safety awareness Stair Climbing Assessment Evaluation Level of Assist On Stairs Standby Assistance Devices Stair Climbing Assistive Devices Left Railing Right Railing Technique/Endurance Stair Climbing Direction Ascend and Descend Stair Climbing Technique Step to Step Number of Steps Climbed 3 Query Text: Stair Climbing Set # Repetitions (reps) 2 Comments Stair Climbing Comments needed cues to lead with LLE during ascend and RLE during descend. Pt was steady and no signs of LOB. PT-Balance Assessment Sitting Balance and Reactions Static Sitting Balance Ability Normal Dynamic Sitting Balance Ability Normal Standing Balance and Reactions Static Standing Balance Ability Good Dynamic Standing Balance Ability Good M5 PT-IP Objective Assessments Start: 09/07/18 11:28 Freq: NEEDED Status: Active Protocol: Document 09/07/18 10:30 (Rec: 09/07/18 11:46 [email or web address]) Orientation Orientation/Cognition Level of Alertness Alert Orientation Name Age Birthday Month Date Year Day of Week Place Situation Language Function Ability No Deficits Noted Safety Awareness Understands Safety Issues Memory Description No Deficits Noted Gross Range of Motion Upper Extremity ROM Assessment Within Functional Limits Lower Extremity ROM Assessment Left Impaired Impairments L knee 0 to 110 degrees actively Strength Upper Extremity Strength Assessment Within Functional Limits Lower Extremity Strength Assessment Left Impaired Comments Strength Comments 3+/5 knee flexion and extension Coordination Assessment Gross Coordination Gross Coordination WNL Sensation Assessment Sensation Gross Sensation WNL Light Touch Intact Proprioception (Position) Intact Muscle Tone Muscle Tone WNL Yes M6 PT-IP Treatment Start: 09/07/18 11:28 Freq: NEEDED Status: Active Protocol: Document 09/07/18 10:30 (Rec: 09/07/18 11:46 [email or web address]) Physical Therapy Treatment Exercises Exercises Ankle Pumps Gluteal Sets Quad Sets Heel Slides Straight Leg Raises Education Education Provided Precautions Weight Bearing Status Post-Op Packet Safety Other Treatments Other Treatment Performed standing TKE M7 PT-IP Assessment and Plan Start: 09/07/18 11:28 Freq: NEEDED Status: Active Protocol: Document 09/07/18 10:30 HH (Rec: 09/07/18 11:46 HH [email or web address]) PT Summary Assessment and Plan Potential Rehabilitation Potential Excellent Status of Condition at Evaluation Stable Summary Impairments Pain ROM Strength Bed Mobility Transfers Gait Activity Tolerance Assessment Summary Pt is a very pleasant and motivated 73yo POD #2 R TKA. Upon assessment, pt was mod independent/ SBA for all functional mobility and he was able to climb stair with 2railings as well. Pt has good understanding of safety awareness, post op guidelines and rehab goals and he will return to outpatient PT at to improve mobility. Pt's will also be his primariy CG for assistance as needed. Pt is safe to be d/c home with 's assistance and outpatient PT. Goals Bed Mobility Goal Independent Transfer Goal Independent Gait Goal Independent Gait Distance 300 Days to Meet Goals 2 Frequency of Treatment Frequency Of Treatment Twice a Day Treatment Plan Physical Therapy Treatment Plan Bed Mobility Training Transfer Training Gait Training Therapeutic Exercise Post Op Education Discharge Planning Hot or Cold Pack Other Recommendations and Next Treatment standing TKE, heel strike Focus during gait post op exercises Recommendations To Nursing Amount of Assist Needed Standby Assistance Discharge Recommendations PT Discharge Recommendations Home with Assistance Outpatient PT
[2018-09-07 12:50] VITALS: BP 133/67; PULSE 55; RESP 18; TEMP 36.3; O2SAT 100
--- NOTE | 2018-09-07 13:35 | CM.DANOTE ---
DCP: Case received, EMR reviewed and met with patient. Introduced self and role. DCP template completed with information currently available. Patient is a 73 year old male who admitted yesterday to the care of the surgical team. PCP: Dr. Aranda. P[facility] Patient came to hospital for surgical procedure. He had R. Total Knee Arthroplasty. Patient has had chronic history of right knee pain. Met briefly with patient. Alert and oriented. Lives in [facility] with his , Mayra. He stated that he is independent at home, and has a walker. He has his walker here in the hospital. Patient stated that he already has outpatient physical therapy set up. P: Patient is to be discharged home today. Darcy Singh RN/Machine Inspector
--- NOTE | 2018-09-07 13:37 | PC.NURSE ---
Pt doing well ambulating with PT. Given percolone for discomfort and helpful. CMS wnl and ppx2. Hemovac drain clamped at 0800 and unclamped at 1000. PT had a total of 125cc out. Called Dr. Anna and she states to pull hemovac and let pt go home. Pressure dressing applied to site of insertion from taking hemovac site and as pt was ambulating to the bathroom, area started to bleed a moderate amount. Dressing changed again and 4x4 and coban applied. Area has remained dry for the past hour. Pt will be going home around 1430.
--- NOTE | 2018-09-07 16:40 | PT.IPTN ---
Current Diagnoses Unilateral primary osteoarthritis, right knee (09/06/18) Surgery Performed Operation Date: 09/06/18 13:45 Actual Procedures p Total Knee Arthroplasty(Right) - Lucy Anna MD Physical Therapy Treatment Note M2 PT-IP Current Condition Start: 09/07/18 11:28 Freq: NEEDED Status: Active Protocol: Document 09/07/18 10:30 HH (Rec: 09/07/18 11:46 HH [id number]) Physical Therapy Current Condition Current Condition Evaluation Date 09/07/18 Treatment Diagnosis R TKA, difficulty in walking and R LE weakness Onset Date 09/06/18 Weight Bearing Status Weight Bearing Status Weight Bear as Tolerated M3 PT-IP Subjective Start: 09/07/18 11:28 Freq: NEEDED Status: Active Protocol: Document 09/07/18 16:39 HH (Rec: 09/07/18 16:40 HH [id number]) Subjective Physical Therapy Visit Type Type Discharge Summary Visit Start Time 16:39 Notes Pt left facility and d/c to home. M4 PT-IP Mobility and Gait Start: 09/07/18 11:28 Freq: NEEDED Status: Active Protocol: Document 09/07/18 10:30 HH (Rec: 09/07/18 11:46 HH [id number]) PT-Transfer Assessment Sit to and From Stand Sit to and from Stand Standby Assistance Use of Upper Extremities Equipment Transfer Assistive Device Gait Belt Front Wheeled Walker Transfers Transfer Destination Bed Chair Toilet Transfer Technique Stand Step Pivot Transfer Ability Level of Assist Standby Assistance Use of Upper Extremities Comments Mobility Comments Pt was seen up in his chair upon assessment. Pt stood up and amb to bathroom for toileting. Pt stood up for 2 mins unsupported. He then amb to hallway and returned back to chair. Pt was able to use stagger stance for stand to sit safely. Gait Assessment Gait Gait Assistance Required: Standby Assistance Distance (Feet) 150 Able to Maintain Weight Bearing Status Yes During Gait Assistive Devices Assistive Device Gait Belt Front Wheeled Walker Gait Deviations General Gait Pattern Antalgic Decreased Stride Length Decreased Feet Clearance Factors Limiting Gait Function Factors Limiting Gait Function Decreased Activity Tolerance Decreased Strength Limited Range of Motion Pain Comments Gait Comments Able to amb from chair to hallway for 1 loop for 150ft FWW SBA. Pt presented R antalgic gait with decreased foot clearance and knee flexion. Pt was very steadyt and has a good understanding of safety awareness Stair Climbing Assessment Evaluation Level of Assist On Stairs Standby Assistance Devices Stair Climbing Assistive Devices Left Railing Right Railing Technique/Endurance Stair Climbing Direction Ascend and Descend Stair Climbing Technique Step to Step Number of Steps Climbed 3 Query Text: Stair Climbing Set # Repetitions (reps) 2 Comments Stair Climbing Comments needed cues to lead with LLE during ascend and RLE during descend. Pt was steady and no signs of LOB. PT-Balance Assessment Sitting Balance and Reactions Static Sitting Balance Ability Normal Dynamic Sitting Balance Ability Normal Standing Balance and Reactions Static Standing Balance Ability Good Dynamic Standing Balance Ability Good M5 PT-IP Objective Assessments Start: 09/07/18 11:28 Freq: NEEDED Status: Active Protocol: Document 09/07/18 10:30 HH (Rec: 09/07/18 11:46 [facility] Orientation Orientation/Cognition Level of Alertness Alert Orientation Name Age Birthday Month Date Year Day of Week Place Situation Language Function Ability No Deficits Noted Safety Awareness Understands Safety Issues Memory Description No Deficits Noted Gross Range of Motion Upper Extremity ROM Assessment Within Functional Limits Lower Extremity ROM Assessment Left Impaired Impairments L knee 0 to 110 degrees actively Strength Upper Extremity Strength Assessment Within Functional Limits Lower Extremity Strength Assessment Left Impaired Comments Strength Comments 3+/5 knee flexion and extension Coordination Assessment Gross Coordination Gross Coordination WNL Sensation Assessment Sensation Gross Sensation WNL Light Touch Intact Proprioception (Position) Intact Muscle Tone Muscle Tone WNL Yes M6 PT-IP Treatment Start: 09/07/18 11:28 Freq: NEEDED Status: Active Protocol: Document 09/07/18 10:30 HH (Rec: 09/07/18 11:46 [facility] Physical Therapy Treatment Exercises Exercises Ankle Pumps Gluteal Sets Quad Sets Heel Slides Straight Leg Raises Education Education Provided Precautions Weight Bearing Status Post-Op Packet Safety Other Treatments Other Treatment Performed standing TKE M7 PT-IP Assessment and Plan Start: 09/07/18 11:28 Freq: NEEDED Status: Active Protocol: Document 09/07/18 10:30 HH (Rec: 09/07/18 11:46 [facility] PT Summary Assessment and Plan Potential Rehabilitation Potential Excellent Status of Condition at Evaluation Stable Summary Impairments Pain ROM Strength Bed Mobility Transfers Gait Activity Tolerance Assessment Summary Pt is a very pleasant and motivated 73yo POD #2 R TKA. Upon assessment, pt was mod independent/ SBA for all functional mobility and he was able to climb stair with 2railings as well. Pt has good understanding of safety awareness, post op guidelines and rehab goals and he will return to outpatient PT at to improve mobility. Pt's will also be his primariy CG for assistance as needed. Pt is safe to be d/c home with 's assistance and outpatient PT. Goals Bed Mobility Goal Independent Transfer Goal Independent Gait Goal Independent Gait Distance 300 Days to Meet Goals 2 Frequency of Treatment Frequency Of Treatment Twice a Day Treatment Plan Physical Therapy Treatment Plan Bed Mobility Training Transfer Training Gait Training Therapeutic Exercise Post Op Education Discharge Planning Hot or Cold Pack Other Recommendations and Next Treatment standing TKE, heel strike Focus during gait post op exercises Recommendations To Nursing Amount of Assist Needed Standby Assistance Discharge Recommendations PT Discharge Recommendations Home with Assistance Outpatient PT
--- NOTE | 2018-09-07 16:41 | PC.NURSE ---
Tere shift note: Patient awake, alert, ambulating with FWW with steady gait. Pain controlled with PRNs medications. Cleared for discharge home by PT. Discharged home as ordered, discussed importance of F/U with Ortho MD, activity, dressing care, and medications. Patient verbalized understanding of discharge instructions. Discharged home with via private vehicle. IV discontinued, hemovac previously removed, no drainage to dressing.
== END 2018-09-07 16:00 | disposition home or self-care (01) ==
LOC: AC 09-07 09:45 → OR 09-08 06:58
PROVIDERS: Family Provider Internal Medicine; PCP Internal Medicine; Visit Provider Orthopaedic Surgery
PROC: 0SRC0JZ Replacement of Right Knee Joint with Synthetic Substitute, Open Approach (ICD-10-PCS; CPT 27447; principal; 2018-09-06 13:45)
DX: M17.11 Unilateral primary osteoarthritis, right knee (principal); G47.30 Sleep apnea, unspecified; E66.9 Obesity, unspecified; E78.5 Hyperlipidemia, unspecified; Z68.30 Body mass index [BMI] 30.0-30.9, adult
CPT/HCPCS: 27447; 36415; 73560; 85014; 85018; 94760; 97161; 97530; C1776; C9290; J0690; J1100; J2250; J2704; J3370

== ENCOUNTER 2019-01-06 12:00 | Outpatient (RCR) | payer MEDICARE, OTHER, SELFPAY ==
[2018-02-05 20:44] VITALS: BMI 43.1
[2018-09-06 16:27] VITALS: BMI 31.1
--- NOTE | 2018-09-09 12:35 | PT.OIE ---
Current Diagnoses Bilateral primary osteoarthritis of knee (09/09/18) Pain in right knee (09/09/18) Stiffness of right knee, not elsewhere classified (09/09/18) Muscle weakness (generalized) (09/09/18) Other abnormalities of gait and mobility (09/09/18) Aftercare following joint replacement surgery (09/09/18) Presence of right artificial knee joint (09/09/18) Past Medical History (Last Updated 09/02/18 @ 13:30 by Sabina Sanchez RN) Alcoholism (Acute) Anxiety (Acute) Atrophic gastritis (Acute) Chronic low back pain (Acute) Cyst in hand (Acute ~2019) Depression (Acute) Diverticulosis (Acute) Dizziness (Acute) Erectile dysfunction (Acute) HTN (hypertension) (Acute) History of colon polyps (Acute) Hydronephrosis (Acute) Hyperlipidemia (Acute) Insomnia (Acute) Ischemia (Acute) Nephrolithiasis (Acute) YAIMA on CPAP (Acute) Osteoarthritis (Acute) Paroxysmal atrial fibrillation (Acute) Paroxysmal atrial flutter (Acute) Prediabetes (Acute) Psoriasis (Acute) Psoriatic arthritis (Acute) Psoriatic arthropathy (Acute) RLS (restless legs syndrome) (Acute) Retroperitoneal mass (Acute) Sinus congestion (Acute) Syncope (Acute) Testosterone deficiency (Acute) Vitamin D deficiency (Acute) Past Surgical History (Last Updated 09/02/18 @ 13:00 by Sabina Sanchez RN) History of total left knee replacement (TKR) (Acute) Hx of lithotripsy (Acute) Provider Visit Care Team Role Provider Type Kavita Aranda MD Primary Care Provider Non-Staff Specialty: Internal Medicine Address: [address] [place] [address], [address], [place], [place], [facility] Email: Lucy Anna MD Attending Provider Physician Specialty: Orthopedic Surgery Address: [address] [place] [address], [facility] Email: [email or web address] Physical Therapy Initial Evaluation PT-OP-A Visit Information Start: 09/09/18 11:59 Freq: Status: Active Protocol: Document 09/09/18 10:30 DCW (Rec: 09/09/18 12:30 DCW [id number]) Out-Patient Physical Therapy Visit Information Visit Information Visit Note 2019 visit #14 Visit Start Time 10:30 Visit Stop Time 11:10 Total Visit Minutes 40 Visit Number 07/14 Number of ENROBING MACHINE CORDER Visits 0 Evaluation Information Evaluation Date 09/09/18 PT-OP-B Current Condition Start: 09/09/18 11:59 Freq: Status: Active Protocol: Document 09/09/18 10:30 DCW (Rec: 09/09/18 12:30 DCW [id number]) Current Condition History of Current Condition Onset Date 09/06/18 Current Complaints Right knee pain, weakness, stiffness, difficulty with gait s/p R TKA History of Current Condition Pt is a 73 year old male well known to this clinic presenting 3 days s/p R TKA following failure of conservative treatment. Pt reports his pain varies from a 2/10 at rest to a 10/10 when trying to lift his leg into his vehicle or straighten his right knee out. Pt comes into the clinic today with increased difficulty ambulating with his rented FWW , most notably due to the fact that at its highest setting, it is still 5 inches too short . Pt reports he is currently on Oxycodone for pain control, but is looking forward to getting off of it. Prior Treatments and Tests Prior history of PT at this clinic, most recently discharged after his last visit on 08/30/18 to prepare for his TKA. Treatment Goals Patient/Caregiver Goals Return to prior level of function, especially getting up and down from the floor in his workshop. Prior Functional Status Baseline Function- ADL's Independent Baseline Function- Mobility Independent Current Functional Impairments (Reported) Functional Limitations- Mobility/Gait Ambulating step-to gait pattern using a FWW that is approximately 5 inches too short, severely antalgic PT-OP-C Subjective Start: 09/09/18 11:59 Freq: Status: Active Protocol: Document 09/09/18 10:30 DCW (Rec: 09/09/18 12:30 DCW [id number]) Patient Questionnaires Lower Extremity Functional Scale LEFS Score 6/80 = 7.5% LEFS Impairment 80 to 99% Impaired (Score 1-16 ) OP-PT Pain Assessment Location Right Knee Intensity 10 Scale Used Numeric (1 - 10) Frequency Intermittent Variations/Patterns 2/10 at rest PT-OP-F Manual Assessment Start: 09/09/18 11:59 Freq: Status: Active Protocol: Document 09/09/18 10:30 DCW (Rec: 09/09/18 12:30 DCW [id number]) Manual Assessments Soft Tissue Assessment Soft Tissue Mobility Assessment Joint effusion along surgical site, surgical incision covered in post-op bandage, appears CDI. Pt has weak quad contraction, requires verbal and tactile cues for contraction Joint Mobility Assessment Joint Mobility Assessment Limited active and passive ROM secondary to pain, soft tissue edema, and joint effusion PT-OP-G Mobility & Gait Start: 09/09/18 12:30 Freq: Status: Active Protocol: Document 09/09/18 10:30 DCW (Rec: 09/09/18 12:35 DCW [id number]) OP Gait Assessment Gait Gait Assistance Required: Standby Assistance Distance (Feet) 200 Able to Maintain Weight Bearing Status Yes During Gait Assistive Devices Assistive Device Front Wheeled Walker Orthotic/Prosthetic Devices or Brace: No Gait Deviations General Gait Pattern Antalgic Decreased Stride Length Decreased Feet Clearance Flexed Trunk Lateral Trunk Lean Step-to Gait Wide Based Gait Factors Limiting Gait Function Factors Limiting Gait Function Limited Range of Motion Pain Comments Gait Comments Pt's gait initially hampered due to his FWW, which is ~5 inches too short. After borrowing a clinic FWW which was an appropriate height, pt' s gait pattern improved, and he was able to ambulate step- through with minimal antalgia. PT-OP-J Posture/Palpation/Skin Start: 09/09/18 12:30 Freq: Status: Active Protocol: Document 09/09/18 10:30 DCW (Rec: 09/09/18 12:35 DCW [id number]) Skin Assessment Circumference Measurement 10 cm inferior to jt line Location Right calf Measurement (Centimeters) 39.2 Comments Left = 38.8 Joint line Location Right knee Measurement (Centimeters) 44.2 Comments Left = 40.0 cm 10 cm superior to jt line Location Right thigh Measurement (Centimeters) 48.5 Comments Left = 43.8 cm PT-OP-K Range of Motion Start: 09/09/18 11:59 Freq: Status: Active Protocol: Document 09/09/18 10:30 DCW (Rec: 09/09/18 12:30 DCW [id number]) Knee Goniometric Range of Motion Knee Measured in Degrees Left Knee ROM WFL No Patient Position Supine Flexion Active (degrees) 73 Flexion Passive (degrees) 84 Extension Active (degrees) 10 Extension Passive (degrees) 10 Knee ROM Limitations Knee ROM Limitations Soft Tissue Tightness Bony Restriction Muscle Weakness Muscle Tone Pain Swelling Comments Seated AROM 20-74? PT-OP-M Strength Start: 09/09/18 11:59 Freq: Status: Active Protocol: Document 09/09/18 10:30 DCW (Rec: 09/09/18 12:30 DCW [id number]) Knee Strength Knee Manual Muscle Testing Left Flexion (S2) 2- Poor- Extension (L3) 3- Fair- PT-OP-Q Treatments Start: 09/09/18 11:59 Freq: Status: Active Protocol: Document 09/09/18 10:30 DCW (Rec: 09/09/18 12:30 DCW [id number]) Cardio Equipment Recumbent Bicycle Duration (Minutes) 5 Resistance 0 Seat Position 11 Other Unable to complete full rotation PT-OP-T Assessment and Plan Start: 09/09/18 11:59 Freq: Status: Active Protocol: Document 09/09/18 10:30 DCW (Rec: 09/09/18 12:30 DCW [id number]) Physical Therapy Assessment Rehab Potential Rehabilitation Potential Good Evaluation Complexity Number of Personal Factors/Comorbidities 1-2 Number of Body Systems Impaired 3 Clinical Presentation at Evaluation Evolving Impairments Impairments Activity Tolerance Balance Edema Functional Activities Functional Mobility Gait Pain ROM Soft Tissue Mobility Strength Goals Five Impairment ROM Short Term Goal (STG) Left knee AROM to 5?-110? STG Duration 10/14/18 Prison Goal (LTG) Left knee AROM to 0?-120? LTG Duration 12/10/18 Four Impairment Strength Telephone Maintenance Mechanic Goal (LTG) Gross LE MMT to 4/ LTG Duration 11/09/18 Three Impairment Joint Effusion Telephone Maintenance Mechanic Goal (LTG) Circumfrence measurements on left knee to equal right LTG Duration 11/09/18 Two Impairment Floor transfers Prison Goal (LTG) Pt to get off floor of workshop without use of objects to use UE to pull himself up LTG Duration 12/10/18 One Impairment Pt does not have appropriate home exercise program Short Term Goal (STG) Pt to be independent and compliant with an appropriate HEP STG Duration 10/10/18 Assessment Summary Assessment Pt presents as expected three days s/p L TKA. Pt's main limitations are left LE weakness, pain, decreased ROM, and difficulty ambulating. Pt was strongly advised to return his current FWW to [facility] for a higher one to improve his ambulation ability. After instruction on a FWW with a more appropriate height, pt was able to ambulate step-through with minimal antalgia. Pt currently unable to use his quad to lift his left leg against gravity, demonstrating inability to perform a SLR, LAQ, or SAQ. Pt instructed in post-op exercises including ankle pumps, heel slides, quad sets, and extension stretch to improve ROM. Skilled therapy should help pt improve his ROM to prior levels, increase his gait ability, and improve his pain control and strength. Physical Therapy Plan Frequency and Duration Frequency of Treatment 2x/Week Duration of Treatment 12 weeks Plan of Care Start Date 09/09/18 Plan of Care End Date 12/02/18 Therapeutic Interventions Therapeutic Interventions Aquatic Therapy Balance Training Gait Training Home Exercise Program Joint Mobilizations Manual Therapy Neuromuscular Re-education Patient/Caregiver Education Self-Care/Home Management Soft Tissue Mobilization Therapeutic Activities Therapeutic Exercises Modalities Cold Pack/Ice Massage Electric Stimulation Hot Packs Ultrasound Next Visit Focus/Plan Next Note Type Treatment Note Next Visit Plan ROM/Flexibility, Strengthening , Gait training
--- NOTE | 2018-09-09 12:37 | PT.OPPOC ---
Current Diagnoses Bilateral primary osteoarthritis of knee (09/09/18) Pain in right knee (09/09/18) Stiffness of right knee, not elsewhere classified (09/09/18) Muscle weakness (generalized) (09/09/18) Other abnormalities of gait and mobility (09/09/18) Aftercare following joint replacement surgery (09/09/18) Presence of right artificial knee joint (09/09/18) Provider Visit Care Team Role Provider Type Kavita Aranda MD Primary Care Provider Non-Staff Specialty: Internal Medicine Address: [address] [place] [address], [address], [place], [address] Email: Lucy Anna MD Attending Provider Physician Specialty: Orthopedic Surgery Address: [address] [place] [address], [id number] Email: [email or web address] Plan Of Care PT-OP-T Assessment and Plan Start: 09/09/18 11:59 Freq: Status: Active Protocol: Document 09/09/18 10:30 DCW (Rec: 09/09/18 12:30 DCW [id number]) Physical Therapy Assessment Rehab Potential Rehabilitation Potential Good Evaluation Complexity Number of Personal Factors/Comorbidities 1-2 Number of Body Systems Impaired 3 Clinical Presentation at Evaluation Evolving Impairments Impairments Activity Tolerance Balance Edema Functional Activities Functional Mobility Gait Pain ROM Soft Tissue Mobility Strength Goals Five Impairment ROM Short Term Goal (STG) Left knee AROM to 5?-110? STG Duration 10/14/18 Glue Jointer Feeder Goal (LTG) Left knee AROM to 0?-120? LTG Duration 12/10/18 Four Impairment Strength Glue Jointer Feeder Goal (LTG) Gross LE MMT to 4/5 LTG Duration 11/09/18 Three Impairment Joint Effusion Glue Jointer Feeder Goal (LTG) Circumfrence measurements on left knee to equal right LTG Duration 11/09/18 Two Impairment Floor transfers Glue Jointer Feeder Goal (LTG) Pt to get off floor of workshop without use of objects to use UE to pull himself up LTG Duration 12/10/18 One Impairment Pt does not have appropriate home exercise program Short Term Goal (STG) Pt to be independent and compliant with an appropriate HEP STG Duration 10/10/18 Assessment Summary Assessment Pt presents as expected three days s/p L TKA. Pt's main limitations are left LE weakness, pain, decreased ROM, and difficulty ambulating. Pt was strongly advised to return his current FWW to [employer] for a higher one to improve his ambulation ability. After instruction on a FWW with a more appropriate height, pt was able to ambulate step-through with minimal antalgia. Pt currently unable to use his quad to lift his left leg against gravity, demonstrating inability to perform a SLR, LAQ, or SAQ. Pt instructed in post-op exercises including ankle pumps, heel slides, quad sets, and extension stretch to improve ROM. Skilled therapy should help pt improve his ROM to prior levels, increase his gait ability, and improve his pain control and strength. Physical Therapy Plan Frequency and Duration Frequency of Treatment 2x/Week Duration of Treatment 12 weeks Plan of Care Start Date 09/09/18 Plan of Care End Date 12/02/18 Therapeutic Interventions Therapeutic Interventions Aquatic Therapy Balance Training Gait Training Home Exercise Program Joint Mobilizations Manual Therapy Neuromuscular Re-education Patient/Caregiver Education Self-Care/Home Management Soft Tissue Mobilization Therapeutic Activities Therapeutic Exercises Modalities Cold Pack/Ice Massage Electric Stimulation Hot Packs Ultrasound Next Visit Focus/Plan Next Note Type Treatment Note Next Visit Plan ROM/Flexibility, Strengthening , Gait training Plan of Care Dates Plan of Care Start Date 09/09/18 Plan of Care End Date 12/02/18 Please Sign and Return: I have reviewed this Plan of Care and certify that the skilled therapy services above are required to meet the patient?s needs. Physician Signature Date Printed Name and Credentials Clinical Instructor Signature Printed Name and Credentials
--- NOTE | 2018-09-14 16:55 | PT.OTN ---
Current Diagnoses Bilateral primary osteoarthritis of knee (09/14/18) Aftercare following joint replacement surgery (09/14/18) Presence of right artificial knee joint (09/14/18) Physical Therapy Treatment Note PT-OP-A Visit Information Start: 09/09/18 11:59 Freq: Status: Active Protocol: Document 09/14/18 16:00 DCW (Rec: 09/14/18 16:55 DCW [id number]) Out-Patient Physical Therapy Visit Information Visit Information Visit Type Treatment Note Visit Note 2019 visit #15 Visit Start Time 16:00 Visit Stop Time 16:40 Total Visit Minutes 40 Visit Number 08/14 Evaluation Information Evaluation Date 09/09/18 PT-OP-B Current Condition Start: 09/09/18 11:59 Freq: Status: Active Protocol: Document 09/09/18 10:30 DCW (Rec: 09/09/18 12:30 DCW [id number]) Current Condition History of Current Condition Onset Date 09/06/18 Current Complaints Right knee pain, weakness, stiffness, difficulty with gait s/p R TKA History of Current Condition Pt is a 73 year old male well known to this clinic presenting 3 days s/p R TKA following failure of conservative treatment. Pt reports his pain varies from a 2/10 at rest to a 10/10 when trying to lift his leg into his vehicle or straighten his right knee out. Pt comes into the clinic today with increased difficulty ambulating with his rented FWW , most notably due to the fact that at its highest setting, it is still 5 inches too short . Pt reports he is currently on Oxycodone for pain control, but is looking forward to getting off of it. Prior Treatments and Tests Prior history of PT at this clinic, most recently discharged after his last visit on 08/30/18 to prepare for his TKA. Treatment Goals Patient/Caregiver Goals Return to prior level of function, especially getting up and down from the floor in his workshop. Prior Functional Status Baseline Function- ADL's Independent Baseline Function- Mobility Independent Current Functional Impairments (Reported) Functional Limitations- Mobility/Gait Ambulating step-to gait pattern using a FWW that is approximately 5 inches too short, severely antalgic PT-OP-C Subjective Start: 09/09/18 11:59 Freq: Status: Active Protocol: Document 09/14/18 16:00 DCW (Rec: 09/14/18 16:55 DCW [id number]) OP-PT Subjective Patient Comments Patient Comments Pt reports that he cancelled his appointment on Wednesday due to some issues with my pain control meds, notes that all the anesthetic has worn off the night before his appointment, and he was in a lot of pain and couldn't sleep , so he took an Oxycodone, but was then too out of it to come to therapy. PT-OP-F Manual Assessment Start: 09/09/18 11:59 Freq: Status: Active Protocol: Document 09/09/18 10:30 DCW (Rec: 09/09/18 12:30 DCW [id number]) Manual Assessments Soft Tissue Assessment Soft Tissue Mobility Assessment Joint effusion along surgical site, surgical incision covered in post-op bandage, appears CDI. Pt has weak quad contraction, requires verbal and tactile cues for contraction Joint Mobility Assessment Joint Mobility Assessment Limited active and passive ROM secondary to pain, soft tissue edema, and joint effusion PT-OP-G Mobility & Gait Start: 09/09/18 12:30 Freq: Status: Active Protocol: Document 09/09/18 10:30 DCW (Rec: 09/09/18 12:35 DCW [id number]) OP Gait Assessment Gait Gait Assistance Required: Standby Assistance Distance (Feet) 200 Able to Maintain Weight Bearing Status Yes During Gait Assistive Devices Assistive Device Front Wheeled Walker Orthotic/Prosthetic Devices or Brace: No Gait Deviations General Gait Pattern Antalgic Decreased Stride Length Decreased Feet Clearance Flexed Trunk Lateral Trunk Lean Step-to Gait Wide Based Gait Factors Limiting Gait Function Factors Limiting Gait Function Limited Range of Motion Pain Comments Gait Comments Pt's gait initialy hampered due to his FWW, which is ~5 inches too short. After borrowing a clinic FWW which was an appropriate height, pt' s gait pattern improved, and he was able to ambulate step- through with minimal antalgia. PT-OP-J Posture/Palpation/Skin Start: 09/09/18 12:30 Freq: Status: Active Protocol: Document 09/09/18 10:30 DCW (Rec: 09/09/18 12:35 DCW [id number]) Skin Assessment Circumference Measurement 10 cm inferior to jt line Location Right calf Measurement (Centimeters) 39.2 Comments Left = 38.8 Joint line Location Right knee Measurement (Centimeters) 44.2 Comments Left = 40.0 cm 10 cm superior to jt line Location Right thigh Measurement (Centimeters) 48.5 Comments Left = 43.8 cm PT-OP-K Range of Motion Start: 09/09/18 11:59 Freq: Status: Active Protocol: Document 09/09/18 10:30 DCW (Rec: 09/09/18 12:30 DCW [id number]) Knee Goniometric Range of Motion Knee Measured in Degrees Left Knee ROM WFL No Patient Position Supine Flexion Active (degrees) 73 Flexion Passive (degrees) 84 Extension Active (degrees) 10 Extension Passive (degrees) 10 Knee ROM Limitations Knee ROM Limitations Soft Tissue Tightness Bony Restriction Muscle Weakness Muscle Tone Pain Swelling Comments Seated AROM 20-74? PT-OP-M Strength Start: 09/09/18 11:59 Freq: Status: Active Protocol: Document 09/09/18 10:30 DCW (Rec: 09/09/18 12:30 DCW [id number]) Knee Strength Knee Manual Muscle Testing Left Flexion (S2) 2- Poor- Extension (L3) 3- Fair- PT-OP-Q Treatments Start: 09/09/18 11:59 Freq: Status: Active Protocol: Document 09/14/18 16:00 DCW (Rec: 09/14/18 16:55 DCW [id number]) Cardio Equipment Recumbent Bicycle Duration (Minutes) 5 Resistance 0 Seat Position 11 Other Unable to complete full rotation Gym Equipment Therapeutic Ball Supine Flexion Stretch Exercise Details AAROM knee flexion /c strap Ball Size/Color Blue - 45 cm Body Position Supine Therapeutic Exercises Supine Exercises Extension Stretch Supine Exercise Name Supine Ext stretch Side right Equipment Used foot on bolster Reps/Minutes 2 min Short Arc Quad Supine Exercise Name SAQ Side right Heel Slides Supine Exercise Name Heel Slides Side right Equipment Used Slide fabric Straight Leg Raise Supine Exercise Name SLR Side right Standing Exercises Stair Flexion Stretch Standing Exercise Name Flexion stretch on stairs Side right Terminal Knee Extension Standing Exercise Name TKE Side right Resistance Lv 3 Equipment Used T-band Manual Therapy Treatment Other Other Manual Treatments Gentle PROM knee Flexion/ Extension PT-OP-T Assessment and Plan Start: 09/09/18 11:59 Freq: Status: Active Protocol: Document 09/14/18 16:00 DCW (Rec: 09/14/18 16:55 DCW [id number]) Physical Therapy Assessment Impairments Impairments Activity Tolerance Balance Edema Functional Activities Functional Mobility Gait Pain ROM Soft Tissue Mobility Strength Goals Five Impairment ROM Short Term Goal (STG) Left knee AROM to 5?-110? STG Duration 10/14/18 Snf Goal (LTG) Left knee AROM to 0?-120? LTG Duration 12/10/18 Four Impairment Strength Snf Goal (LTG) Gross LE MMT to 10/07 LTG Duration 11/09/18 Three Impairment Joint Effusion [employer] Operations [employer] Goal (LTG) Circumfrence measurements on left knee to equal right LTG Duration 11/09/18 Two Impairment Floor transfers Snf Goal (LTG) Pt to get off floor of workshop without use of objects to use UE to pull himself up LTG Duration 12/10/18 One Impairment Pt does not have appropriate home exercise program Short Term Goal (STG) Pt to be independent and compliant with an appropriate HEP STG Duration 10/10/18 Assessment Summary Assessment Pt attended PT session with new, appropriately-sized FWW today, able to ambulate much better with less forward flexion and antalgia. Pt is noticeably stiffer through his right knee with ROM, likely due to the absence of surgical anesthesia compared to his initial evaluation, however pt was able to gain some ROM back with stretching and manual ROM. Physical Therapy Plan Frequency and Duration Frequency of Treatment 2x/Week Duration of Treatment 12 weeks Plan of Care Start Date 09/09/18 Plan of Care End Date 12/02/18 Therapeutic Interventions Therapeutic Interventions Aquatic Therapy Balance Training Gait Training Home Exercise Program Joint Mobilizations Manual Therapy Neuromuscular Re-education Patient/Caregiver Education Self-Care/Home Management Soft Tissue Mobilization Therapeutic Activities Therapeutic Exercises Modalities Cold Pack/Ice Massage Electric Stimulation Hot Packs Ultrasound Next Visit Focus/Plan Next Note Type Treatment Note Next Visit Plan ROM/Flexibility, Strengthening , Gait training
--- NOTE | 2018-09-20 12:04 | PT.OTN ---
Current Diagnoses Bilateral primary osteoarthritis of knee (09/20/18) Aftercare following joint replacement surgery (09/20/18) Presence of right artificial knee joint (09/20/18) Physical Therapy Treatment Note PT-OP-A Visit Information Start: 09/09/18 11:59 Freq: Status: Active Protocol: Document 09/20/18 11:20 DCW (Rec: 09/20/18 12:03 DCW [id number]) Out-Patient Physical Therapy Visit Information Visit Information Visit Type Treatment Note Visit Note 2019 visit #16 Visit Start Time 11:20 Visit Stop Time 12:10 Total Visit Minutes 50 Visit Number 09/11 Evaluation Information Evaluation Date 09/09/18 PT-OP-B Current Condition Start: 09/09/18 11:59 Freq: Status: Active Protocol: Document 09/09/18 10:30 DCW (Rec: 09/09/18 12:30 DCW [id number]) Current Condition History of Current Condition Onset Date 09/06/18 Current Complaints Right knee pain, weakness, stiffness, difficulty with gait s/p R TKA History of Current Condition Pt is a 73 year old male well known to this clinic presenting 3 days s/p R TKA following failure of conservative treatment. Pt reports his pain varies from a 2/10 at rest to a 10/10 when trying to lift his leg into his vehicle or straighten his right knee out. Pt comes into the clinic today with increased difficulty ambulating with his rented FWW , most notably due to the fact that at its highest setting, it is still 5 inches too short . Pt reports he is currently on Oxycodone for pain control, but is looking forward to getting off of it. Prior Treatments and Tests Prior history of PT at this clinic, most recently discharged after his last visit on 08/30/18 to prepare for his TKA. Treatment Goals Patient/Caregiver Goals Return to prior level of function, especially getting up and down from the floor in his workshop. Prior Functional Status Baseline Function- ADL's Independent Baseline Function- Mobility Independent Current Functional Impairments (Reported) Functional Limitations- Mobility/Gait Ambulating step-to gait pattern using a FWW that is approximately 5 inches too short, severely antalgic PT-OP-C Subjective Start: 09/09/18 11:59 Freq: Status: Active Protocol: Document 09/20/18 11:20 DCW (Rec: 09/20/18 12:03 DCW [id number]) OP-PT Subjective Patient Comments Patient Comments Pt continues to have pain control issues, reports that he woke up for pain meds at 4 am, and was so sore he was unable to go back to sleep, and has been in much more pain all day. PT-OP-F Manual Assessment Start: 09/09/18 11:59 Freq: Status: Active Protocol: Document 09/09/18 10:30 DCW (Rec: 09/09/18 12:30 DCW [id number]) Manual Assessments Soft Tissue Assessment Soft Tissue Mobility Assessment Joint effusion along surgical site, surgical incision covered in post-op bandage, appears CDI. Pt has weak quad contraction, requires verbal and tactile cues for contraction Joint Mobility Assessment Joint Mobility Assessment Limited active and passive ROM secondary to pain, soft tissue edema, and joint effusion PT-OP-G Mobility & Gait Start: 09/09/18 12:30 Freq: Status: Active Protocol: Document 09/09/18 10:30 DCW (Rec: 09/09/18 12:35 DCW [id number]) OP Gait Assessment Gait Gait Assistance Required: Standby Assistance Distance (Feet) 200 Able to Maintain Weight Bearing Status Yes During Gait Assistive Devices Assistive Device Front Wheeled Walker Orthotic/Prosthetic Devices or Brace: No Gait Deviations General Gait Pattern Antalgic Decreased Stride Length Decreased Feet Clearance Flexed Trunk Lateral Trunk Lean Step-to Gait Wide Based Gait Factors Limiting Gait Function Factors Limiting Gait Function Limited Range of Motion Pain Comments Gait Comments Pt's gait initialy hampered due to his FWW, which is ~5 inches too short. After borrowing a clinic FWW which was an appropriate height, pt' s gait pattern improved, and he was able to ambulate step- through with minimal antalgia. PT-OP-J Posture/Palpation/Skin Start: 09/09/18 12:30 Freq: Status: Active Protocol: Document 09/09/18 10:30 DCW (Rec: 09/09/18 12:35 DCW [id number]) Skin Assessment Circumference Measurement 10 cm inferior to jt line Location Right calf Measurement (Centimeters) 39.2 Comments Left = 38.8 Joint line Location Right knee Measurement (Centimeters) 44.2 Comments Left = 40.0 cm 10 cm superior to jt line Location Right thigh Measurement (Centimeters) 48.5 Comments Left = 43.8 cm PT-OP-K Range of Motion Start: 09/09/18 11:59 Freq: Status: Active Protocol: Document 09/09/18 10:30 DCW (Rec: 09/09/18 12:30 DCW [id number]) Knee Goniometric Range of Motion Knee Measured in Degrees Left Knee ROM WFL No Patient Position Supine Flexion Active (degrees) 73 Flexion Passive (degrees) 84 Extension Active (degrees) 10 Extension Passive (degrees) 10 Knee ROM Limitations Knee ROM Limitations Soft Tissue Tightness Bony Restriction Muscle Weakness Muscle Tone Pain Swelling Comments Seated AROM 20-74? PT-OP-M Strength Start: 09/09/18 11:59 Freq: Status: Active Protocol: Document 09/09/18 10:30 DCW (Rec: 09/09/18 12:30 DCW [id number]) Knee Strength Knee Manual Muscle Testing Left Flexion (S2) 2- Poor- Extension (L3) 3- Fair- PT-OP-Q Treatments Start: 09/09/18 11:59 Freq: Status: Active Protocol: Document 09/20/18 11:20 DCW (Rec: 09/20/18 12:03 DCW [id number]) Cardio Equipment Recumbent Bicycle Duration (Minutes) 6 Resistance 0 Seat Position 11 Other Full rotation x2 Gym Equipment Shuttle Recovery Unilateral Squats Details Right Resistance 37# Shuttle Recovery Platform Stable Bilateral Squats Resistance 75# Shuttle Recovery Platform Stable Reps/Time deep squat Therapeutic Exercises Standing Exercises Stair Flexion Stretch Standing Exercise Name Flexion stretch on stairs Side right Manual Therapy Treatment Other Other Manual Treatments Gentle PROM knee Flexion/ Extension PT-OP-R Modalities Start: 09/09/18 11:59 Freq: Status: Active Protocol: Document 09/20/18 11:20 DCW (Rec: 09/20/18 12:03 DCW [id number]) Electric Stimulation Electric Stimulation Interferential Current (IFC) Body Location R knee Duration (Minutes) 15 Intensity 30 Patient Position Hooklying Combined With Heat/Cold Cold Pack PT-OP-T Assessment and Plan Start: 09/09/18 11:59 Freq: Status: Active Protocol: Document 09/20/18 11:20 DCW (Rec: 09/20/18 12:03 DCW [id number]) Physical Therapy Assessment Impairments Impairments Activity Tolerance Balance Edema Functional Activities Functional Mobility Gait Pain ROM Soft Tissue Mobility Strength Goals Five Impairment ROM Short Term Goal (STG) Left knee AROM to 5?-110? STG Duration 10/14/18 [place] Goal (LTG) Left knee AROM to 0?-120? LTG Duration 12/10/18 Four Impairment Strength [place] Goal (LTG) Gross LE MMT to 4/5 LTG Duration 11/09/18 Three Impairment Joint Effusion [place] Goal (LTG) Circumfrence measurements on left knee to equal right LTG Duration 11/09/18 Two Impairment Floor transfers [place] Goal (LTG) Pt to get off floor of workshop without use of objects to use UE to pull himself up LTG Duration 12/10/18 One Impairment Pt does not have appropriate home exercise program Short Term Goal (STG) Pt to be independent and compliant with an appropriate HEP STG Duration 10/10/18 Assessment Summary Assessment Pt presents today with significantly increased pain, focused more on ROM and pain- control. Pt did report that at his most recent follow-up with his surgeon, he discovered he had been given insufficient pain meds, and is hoping that correction helps improve his pain-control. Physical Therapy Plan Frequency and Duration Frequency of Treatment 2x/Week Duration of Treatment 12 weeks Plan of Care Start Date 09/09/18 Plan of Care End Date 12/02/18 Therapeutic Interventions Therapeutic Interventions Aquatic Therapy Balance Training Gait Training Home Exercise Program Joint Mobilizations Manual Therapy Neuromuscular Re-education Patient/Caregiver Education Self-Care/Home Management Soft Tissue Mobilization Therapeutic Activities Therapeutic Exercises Modalities Cold Pack/Ice Massage Electric Stimulation Hot Packs Ultrasound Next Visit Focus/Plan Next Note Type Treatment Note Next Visit Plan ROM/Flexibility, Strengthening , Gait training
--- NOTE | 2018-09-23 11:19 | PT.OTN ---
Current Diagnoses Bilateral primary osteoarthritis of knee (09/23/18) Aftercare following joint replacement surgery (09/23/18) Presence of right artificial knee joint (09/23/18) Physical Therapy Treatment Note PT-OP-A Visit Information Start: 09/09/18 11:59 Freq: Status: Active Protocol: Document 09/23/18 10:30 DCW (Rec: 09/23/18 11:19 DCW [id number]) Out-Patient Physical Therapy Visit Information Visit Information Visit Type Treatment Note Visit Note 2019 visit #17 Visit Start Time 10:30 Visit Stop Time 11:25 Total Visit Minutes 55 Visit Number 10/12 Evaluation Information Evaluation Date 09/09/18 PT-OP-B Current Condition Start: 09/09/18 11:59 Freq: Status: Active Protocol: Document 09/09/18 10:30 DCW (Rec: 09/09/18 12:30 DCW [id number]) Current Condition History of Current Condition Onset Date 09/06/18 Current Complaints Right knee pain, weakness, stiffness, difficulty with gait s/p R TKA History of Current Condition Pt is a 73 year old male well known to this clinic presenting 3 days s/p R TKA following failure of conservative treatment. Pt reports his pain varies from a 2/10 at rest to a 10/10 when trying to lift his leg into his vehicle or straighten his right knee out. Pt comes into the clinic today with increased difficulty ambulating with his rented FWW , most notably due to the fact that at its highest setting, it is still 5 inches too short . Pt reports he is currently on Oxycodone for pain control, but is looking forward to getting off of it. Prior Treatments and Tests Prior history of PT at this clinic, most recently discharged after his last visit on 08/30/18 to prepare for his TKA. Treatment Goals Patient/Caregiver Goals Return to prior level of function, especially getting up and down from the floor in his workshop. Prior Functional Status Baseline Function- ADL's Independent Baseline Function- Mobility Independent Current Functional Impairments (Reported) Functional Limitations- Mobility/Gait Ambulating step-to gait pattern using a FWW that is approximately 5 inches too short, severely antalgic PT-OP-C Subjective Start: 09/09/18 11:59 Freq: Status: Active Protocol: Document 09/23/18 10:30 DCW (Rec: 09/23/18 11:19 DCW [id number]) OP-PT Subjective Patient Comments Patient Comments Pt reports positive results from the E-stim, helped control the pain for the remainder of the day on Wednesday. Pt's biggest complaint is that he is very sore first thing in the morning, and struggles getting up out of bed. PT-OP-F Manual Assessment Start: 09/09/18 11:59 Freq: Status: Active Protocol: Document 09/09/18 10:30 DCW (Rec: 09/09/18 12:30 DCW [id number]) Manual Assessments Soft Tissue Assessment Soft Tissue Mobility Assessment Joint effusion along surgical site, surgical incision covered in post-op bandage, appears CDI. Pt has weak quad contraction, requires verbal and tactile cues for contraction Joint Mobility Assessment Joint Mobility Assessment Limited active and passive ROM secondary to pain, soft tissue edema, and joint effusion PT-OP-G Mobility & Gait Start: 09/09/18 12:30 Freq: Status: Active Protocol: Document 09/09/18 10:30 DCW (Rec: 09/09/18 12:35 DCW [id number]) OP Gait Assessment Gait Gait Assistance Required: Standby Assistance Distance (Feet) 200 Able to Maintain Weight Bearing Status Yes During Gait Assistive Devices Assistive Device Front Wheeled Walker Orthotic/Prosthetic Devices or Brace: No Gait Deviations General Gait Pattern Antalgic Decreased Stride Length Decreased Feet Clearance Flexed Trunk Lateral Trunk Lean Step-to Gait Wide Based Gait Factors Limiting Gait Function Factors Limiting Gait Function Limited Range of Motion Pain Comments Gait Comments Pt's gait initialy hampered due to his FWW, which is ~5 inches too short. After borrowing a clinic FWW which was an appropriate height, pt' s gait pattern improved, and he was able to ambulate step- through with minimal antalgia. PT-OP-J Posture/Palpation/Skin Start: 09/09/18 12:30 Freq: Status: Active Protocol: Document 09/09/18 10:30 DCW (Rec: 09/09/18 12:35 DCW [id number]) Skin Assessment Circumference Measurement 10 cm inferior to jt line Location Right calf Measurement (Centimeters) 39.2 Comments Left = 38.8 Joint line Location Right knee Measurement (Centimeters) 44.2 Comments Left = 40.0 cm 10 cm superior to jt line Location Right thigh Measurement (Centimeters) 48.5 Comments Left = 43.8 cm PT-OP-K Range of Motion Start: 09/09/18 11:59 Freq: Status: Active Protocol: Document 09/09/18 10:30 DCW (Rec: 09/09/18 12:30 DCW [id number]) Knee Goniometric Range of Motion Knee Measured in Degrees Left Knee ROM WFL No Patient Position Supine Flexion Active (degrees) 73 Flexion Passive (degrees) 84 Extension Active (degrees) 10 Extension Passive (degrees) 10 Knee ROM Limitations Knee ROM Limitations Soft Tissue Tightness Bony Restriction Muscle Weakness Muscle Tone Pain Swelling Comments Seated AROM 20-74? PT-OP-M Strength Start: 09/09/18 11:59 Freq: Status: Active Protocol: Document 09/09/18 10:30 DCW (Rec: 09/09/18 12:30 DCW [id number]) Knee Strength Knee Manual Muscle Testing Left Flexion (S2) 2- Poor- Extension (L3) 3- Fair- PT-OP-Q Treatments Start: 09/09/18 11:59 Freq: Status: Active Protocol: Document 09/23/18 10:30 DCW (Rec: 09/23/18 11:19 DCW [id number]) Cardio Equipment Recumbent Bicycle Duration (Minutes) 5 Resistance 0 Seat Position 9 Other Occasional Full rotations Gym Equipment Therapeutic Ball Supine Flexion Stretch Exercise Details AAROM knee flexion /c strap Ball Size/Color Blue - 45 cm Body Position Supine Therapeutic Exercises Supine Exercises Extension Stretch Supine Exercise Name Supine Ext stretch Side right Equipment Used foot on bolster Reps/Minutes 2 min Short Arc Quad Supine Exercise Name SAQ Side right Standing Exercises Step-ups Standing Exercise Name Step-ups Side right Equipment Used 4 Stair Flexion Stretch Standing Exercise Name Flexion stretch on stairs Side right Other Exercises Resisted Side-stepping Other Exercise Name Resisted side-stepping Resistance Yellow Equipment Used T-band PT-OP-R Modalities Start: 09/09/18 11:59 Freq: Status: Active Protocol: Document 09/23/18 10:30 DCW (Rec: 09/23/18 11:19 DCW [id number]) Electric Stimulation Electric Stimulation Interferential Current (IFC) Body Location R knee Duration (Minutes) 15 Intensity 36 Patient Position Hooklying Combined With Heat/Cold Cold Pack PT-OP-T Assessment and Plan Start: 09/09/18 11:59 Freq: Status: Active Protocol: Document 09/23/18 10:30 DCW (Rec: 09/23/18 11:19 DCW [id number]) Physical Therapy Assessment Impairments Impairments Activity Tolerance Balance Edema Functional Activities Functional Mobility Gait Pain ROM Soft Tissue Mobility Strength Goals Five Impairment ROM Short Term Goal (STG) Left knee AROM to 5?-110? STG Duration 10/14/18 [facility] Goal (LTG) Left knee AROM to 0?-120? LTG Duration 12/10/18 Four Impairment Strength Residence Leasing Agent Goal (LTG) Gross LE MMT to 10/07 LTG Duration 11/09/18 Three Impairment Joint Effusion [facility] Goal (LTG) Circumfrence measurements on left knee to equal right LTG Duration 11/09/18 Two Impairment Floor transfers Residence Leasing Agent Goal (LTG) Pt to get off floor of workshop without use of objects to use UE to pull himself up LTG Duration 12/10/18 One Impairment Pt does not have appropriate home exercise program Short Term Goal (STG) Pt to be independent and compliant with an appropriate HEP STG Duration 10/10/18 Assessment Summary Assessment Pt presents with improved pain control today, however still has difficulty with ROM and gait due to pain. Physical Therapy Plan Frequency and Duration Frequency of Treatment 2x/Week Duration of Treatment 12 weeks Plan of Care Start Date 09/09/18 Plan of Care End Date 12/02/18 Therapeutic Interventions Therapeutic Interventions Aquatic Therapy Balance Training Gait Training Home Exercise Program Joint Mobilizations Manual Therapy Neuromuscular Re-education Patient/Caregiver Education Self-Care/Home Management Soft Tissue Mobilization Therapeutic Activities Therapeutic Exercises Modalities Cold Pack/Ice Massage Electric Stimulation Hot Packs Ultrasound Next Visit Focus/Plan Next Note Type Treatment Note Next Visit Plan ROM/Flexibility, Strengthening , Gait training
--- NOTE | 2018-09-27 11:18 | PT.OTN ---
Current Diagnoses Bilateral primary osteoarthritis of knee (09/27/18) Aftercare following joint replacement surgery (09/27/18) Presence of right artificial knee joint (09/27/18) Physical Therapy Treatment Note PT-OP-A Visit Information Start: 09/09/18 11:59 Freq: Status: Active Protocol: Document 09/27/18 10:30 DCW (Rec: 09/27/18 11:18 DCW [id number]) Out-Patient Physical Therapy Visit Information Visit Information Visit Type Treatment Note Visit Note 2019 visit #1 Visit Start Time 10:30 Visit Stop Time 11:25 Total Visit Minutes 55 Visit Number 11/11 Evaluation Information Evaluation Date 09/09/18 PT-OP-B Current Condition Start: 09/09/18 11:59 Freq: Status: Active Protocol: Document 09/09/18 10:30 DCW (Rec: 09/09/18 12:30 DCW [id number]) Current Condition History of Current Condition Onset Date 09/06/18 Current Complaints Right knee pain, weakness, stiffness, difficulty with gait s/p R TKA History of Current Condition Pt is a 73 year old male well known to this clinic presenting 3 days s/p R TKA following failure of conservative treatment. Pt reports his pain varies from a 2/10 at rest to a 10/10 when trying to lift his leg into his vehicle or straighten his right knee out. Pt comes into the clinic today with increased difficulty ambulating with his rented FWW , most notably due to the fact that at its highest setting, it is still 5 inches too short . Pt reports he is currently on Oxycodone for pain control, but is looking forward to getting off of it. Prior Treatments and Tests Prior history of PT at this clinic, most recently discharged after his last visit on 08/30/18 to prepare for his TKA. Treatment Goals Patient/Caregiver Goals Return to prior level of function, especially getting up and down from the floor in his workshop. Prior Functional Status Baseline Function- ADL's Independent Baseline Function- Mobility Independent Current Functional Impairments (Reported) Functional Limitations- Mobility/Gait Ambulating step-to gait pattern using a FWW that is approximately 5 inches too short, severely antalgic PT-OP-C Subjective Start: 09/09/18 11:59 Freq: Status: Active Protocol: Document 09/27/18 10:30 DCW (Rec: 09/27/18 11:18 DCW [id number]) OP-PT Subjective Patient Comments Patient Comments Pt feeling improvement, reports he is able to move a little easier and is walking with less difficulty PT-OP-F Manual Assessment Start: 09/09/18 11:59 Freq: Status: Active Protocol: Document 09/09/18 10:30 DCW (Rec: 09/09/18 12:30 DCW [id number]) Manual Assessments Soft Tissue Assessment Soft Tissue Mobility Assessment Joint effusion along surgical site, surgical incision covered in post-op bandage, appears CDI. Pt has weak quad contraction, requires verbal and tactile cues for contraction Joint Mobility Assessment Joint Mobility Assessment Limited active and passive ROM secondary to pain, soft tissue edema, and joint effusion PT-OP-G Mobility & Gait Start: 09/09/18 12:30 Freq: Status: Active Protocol: Document 09/09/18 10:30 DCW (Rec: 09/09/18 12:35 DCW [id number]) OP Gait Assessment Gait Gait Assistance Required: Standby Assistance Distance (Feet) 200 Able to Maintain Weight Bearing Status Yes During Gait Assistive Devices Assistive Device Front Wheeled Walker Orthotic/Prosthetic Devices or Brace: No Gait Deviations General Gait Pattern Antalgic Decreased Stride Length Decreased Feet Clearance Flexed Trunk Lateral Trunk Lean Step-to Gait Wide Based Gait Factors Limiting Gait Function Factors Limiting Gait Function Limited Range of Motion Pain Comments Gait Comments Pt's gait initialy hampered due to his FWW, which is ~5 inches too short. After borrowing a clinic FWW which was an appropriate height, pt' s gait pattern improved, and he was able to ambulate step- through with minimal antalgia. PT-OP-J Posture/Palpation/Skin Start: 09/09/18 12:30 Freq: Status: Active Protocol: Document 09/09/18 10:30 DCW (Rec: 09/09/18 12:35 DCW [id number]) Skin Assessment Circumference Measurement 10 cm inferior to jt line Location Right calf Measurement (Centimeters) 39.2 Comments Left = 38.8 Joint line Location Right knee Measurement (Centimeters) 44.2 Comments Left = 40.0 cm 10 cm superior to jt line Location Right thigh Measurement (Centimeters) 48.5 Comments Left = 43.8 cm PT-OP-K Range of Motion Start: 09/09/18 11:59 Freq: Status: Active Protocol: Document 09/09/18 10:30 DCW (Rec: 09/09/18 12:30 DCW [id number]) Knee Goniometric Range of Motion Knee Measured in Degrees Left Knee ROM WFL No Patient Position Supine Flexion Active (degrees) 73 Flexion Passive (degrees) 84 Extension Active (degrees) 10 Extension Passive (degrees) 10 Knee ROM Limitations Knee ROM Limitations Soft Tissue Tightness Bony Restriction Muscle Weakness Muscle Tone Pain Swelling Comments Seated AROM 20-74? PT-OP-M Strength Start: 09/09/18 11:59 Freq: Status: Active Protocol: Document 09/09/18 10:30 DCW (Rec: 09/09/18 12:30 DCW [id number]) Knee Strength Knee Manual Muscle Testing Left Flexion (S2) 2- Poor- Extension (L3) 3- Fair- PT-OP-Q Treatments Start: 09/09/18 11:59 Freq: Status: Active Protocol: Document 09/27/18 10:30 DCW (Rec: 09/27/18 11:18 DCW [id number]) Cardio Equipment Recumbent Bicycle Duration (Minutes) 5 Resistance 0 Seat Position 9 Other Full rotations backward Gym Equipment Shuttle Recovery Unilateral Squats Details Right Resistance 50# Shuttle Recovery Platform Stable Bilateral Squats Resistance 100# Shuttle Recovery Platform Stable Reps/Time deep squat Therapeutic Ball Supine Flexion Stretch Exercise Details AAROM knee flexion /c strap Ball Size/Color Blue - 45 cm Body Position Supine Therapeutic Exercises Supine Exercises Extension Stretch Supine Exercise Name Supine Ext stretch Side right Resistance 2# Equipment Used foot on bolster Reps/Minutes 2 min Short Arc Quad Supine Exercise Name SAQ Side right Resistance 2# Straight Leg Raise Supine Exercise Name SLR Side right Resistance 2# Standing Exercises Stair Flexion Stretch Standing Exercise Name Flexion stretch on stairs Side right Terminal Knee Extension Standing Exercise Name TKE Side right Resistance Lv 3 Equipment Used T-band PT-OP-R Modalities Start: 09/09/18 11:59 Freq: Status: Active Protocol: Document 09/27/18 10:30 DCW (Rec: 09/27/18 11:18 DCW [id number]) Electric Stimulation Electric Stimulation Interferential Current (IFC) Body Location R knee Duration (Minutes) 15 Intensity 36 Patient Position Hooklying Combined With Heat/Cold Cold Pack PT-OP-T Assessment and Plan Start: 09/09/18 11:59 Freq: Status: Active Protocol: Document 09/27/18 10:30 DCW (Rec: 09/27/18 11:18 DCW [id number]) Physical Therapy Assessment Impairments Impairments Activity Tolerance Balance Edema Functional Activities Functional Mobility Gait Pain ROM Soft Tissue Mobility Strength Goals Five Impairment ROM Short Term Goal (STG) Left knee AROM to 5?-110? STG Duration 10/14/18 [facility] Goal (LTG) Left knee AROM to 0?-120? LTG Duration 12/10/18 Four Impairment Strength Survival Equipment Repairer Goal (LTG) Gross LE MMT to 10/07 LTG Duration 11/09/18 Three Impairment Joint Effusion [facility] Goal (LTG) Circumfrence measurements on left knee to equal right LTG Duration 11/09/18 Two Impairment Floor transfers Survival Equipment Repairer Goal (LTG) Pt to get off floor of workshop without use of objects to use UE to pull himself up LTG Duration 12/10/18 One Impairment Pt does not have appropriate home exercise program Short Term Goal (STG) Pt to be independent and compliant with an appropriate HEP STG Duration 10/10/18 Assessment Summary Assessment Pt making great progress, ROM flexion improved to 101 degrees today. Physical Therapy Plan Frequency and Duration Frequency of Treatment 2x/Week Duration of Treatment 12 weeks Plan of Care Start Date 09/09/18 Plan of Care End Date 12/02/18 Therapeutic Interventions Therapeutic Interventions Aquatic Therapy Balance Training Gait Training Home Exercise Program Joint Mobilizations Manual Therapy Neuromuscular Re-education Patient/Caregiver Education Self-Care/Home Management Soft Tissue Mobilization Therapeutic Activities Therapeutic Exercises Modalities Cold Pack/Ice Massage Electric Stimulation Hot Packs Ultrasound Next Visit Focus/Plan Next Note Type Treatment Note Next Visit Plan ROM/Flexibility, Strengthening , Gait training
--- NOTE | 2018-09-30 11:14 | PT.OTN ---
Current Diagnoses Bilateral primary osteoarthritis of knee (09/30/18) Aftercare following joint replacement surgery (09/30/18) Presence of right artificial knee joint (09/30/18) Physical Therapy Treatment Note PT-OP-A Visit Information Start: 09/09/18 11:59 Freq: Status: Active Protocol: Document 09/30/18 10:30 DCW (Rec: 09/30/18 11:14 DCW [id number]) Out-Patient Physical Therapy Visit Information Visit Information Visit Type Treatment Note Visit Note 2019 visit #19 Visit Start Time 10:30 Visit Stop Time 11:25 Total Visit Minutes 55 Visit Number 12/12 Evaluation Information Evaluation Date 09/09/18 PT-OP-B Current Condition Start: 09/09/18 11:59 Freq: Status: Active Protocol: Document 09/09/18 10:30 DCW (Rec: 09/09/18 12:30 DCW [id number]) Current Condition History of Current Condition Onset Date 09/06/18 Current Complaints Right knee pain, weakness, stiffness, difficulty with gait s/p R TKA History of Current Condition Pt is a 73 year old male well known to this clinic presenting 3 days s/p R TKA following failure of conservative treatment. Pt reports his pain varies from a 2/10 at rest to a 10/10 when trying to lift his leg into his vehicle or straighten his right knee out. Pt comes into the clinic today with increased difficulty ambulating with his rented FWW , most notably due to the fact that at its highest setting, it is still 5 inches too short . Pt reports he is currently on Oxycodone for pain control, but is looking forward to getting off of it. Prior Treatments and Tests Prior history of PT at this clinic, most recently discharged after his last visit on 08/30/18 to prepare for his TKA. Treatment Goals Patient/Caregiver Goals Return to prior level of function, especially getting up and down from the floor in his workshop. Prior Functional Status Baseline Function- ADL's Independent Baseline Function- Mobility Independent Current Functional Impairments (Reported) Functional Limitations- Mobility/Gait Ambulating step-to gait pattern using a FWW that is approximately 5 inches too short, severely antalgic PT-OP-C Subjective Start: 09/09/18 11:59 Freq: Status: Active Protocol: Document 09/30/18 10:30 DCW (Rec: 09/30/18 11:14 DCW [id number]) OP-PT Subjective Patient Comments Patient Comments Pt has been feeling pretty good with his progress. PT-OP-F Manual Assessment Start: 09/09/18 11:59 Freq: Status: Active Protocol: Document 09/09/18 10:30 DCW (Rec: 09/09/18 12:30 DCW [id number]) Manual Assessments Soft Tissue Assessment Soft Tissue Mobility Assessment Joint effusion along surgical site, surgical incision covered in post-op bandage, appears CDI. Pt has weak quad contraction, requires verbal and tactile cues for contraction Joint Mobility Assessment Joint Mobility Assessment Limited active and passive ROM secondary to pain, soft tissue edema, and joint effusion PT-OP-G Mobility & Gait Start: 09/09/18 12:30 Freq: Status: Active Protocol: Document 09/09/18 10:30 DCW (Rec: 09/09/18 12:35 DCW [id number]) OP Gait Assessment Gait Gait Assistance Required: Standby Assistance Distance (Feet) 200 Able to Maintain Weight Bearing Status Yes During Gait Assistive Devices Assistive Device Front Wheeled Walker Orthotic/Prosthetic Devices or Brace: No Gait Deviations General Gait Pattern Antalgic Decreased Stride Length Decreased Feet Clearance Flexed Trunk Lateral Trunk Lean Step-to Gait Wide Based Gait Factors Limiting Gait Function Factors Limiting Gait Function Limited Range of Motion Pain Comments Gait Comments Pt's gait initialy hampered due to his FWW, which is ~5 inches too short. After borrowing a clinic FWW which was an appropriate height, pt' s gait pattern improved, and he was able to ambulate step- through with minimal antalgia. PT-OP-J Posture/Palpation/Skin Start: 09/09/18 12:30 Freq: Status: Active Protocol: Document 09/09/18 10:30 DCW (Rec: 09/09/18 12:35 DCW [id number]) Skin Assessment Circumference Measurement 10 cm inferior to jt line Location Right calf Measurement (Centimeters) 39.2 Comments Left = 38.8 Joint line Location Right knee Measurement (Centimeters) 44.2 Comments Left = 40.0 cm 10 cm superior to jt line Location Right thigh Measurement (Centimeters) 48.5 Comments Left = 43.8 cm PT-OP-K Range of Motion Start: 09/09/18 11:59 Freq: Status: Active Protocol: Document 09/09/18 10:30 DCW (Rec: 09/09/18 12:30 DCW [id number]) Knee Goniometric Range of Motion Knee Measured in Degrees Left Knee ROM WFL No Patient Position Supine Flexion Active (degrees) 73 Flexion Passive (degrees) 84 Extension Active (degrees) 10 Extension Passive (degrees) 10 Knee ROM Limitations Knee ROM Limitations Soft Tissue Tightness Bony Restriction Muscle Weakness Muscle Tone Pain Swelling Comments Seated AROM 20-74? PT-OP-M Strength Start: 09/09/18 11:59 Freq: Status: Active Protocol: Document 09/09/18 10:30 DCW (Rec: 09/09/18 12:30 DCW [id number]) Knee Strength Knee Manual Muscle Testing Left Flexion (S2) 2- Poor- Extension (L3) 3- Fair- PT-OP-Q Treatments Start: 09/09/18 11:59 Freq: Status: Active Protocol: Document 09/30/18 10:30 DCW (Rec: 09/30/18 11:14 DCW [id number]) Cardio Equipment Recumbent Bicycle Duration (Minutes) 5 Resistance 0 Seat Position 9 Other Occasional Full rotations Gym Equipment Shuttle Recovery Unilateral Squats Details Right Resistance 50# Shuttle Recovery Platform Stable Bilateral Squats Resistance 100# Shuttle Recovery Platform Stable Therapeutic Exercises Supine Exercises Short Arc Quad Supine Exercise Name SAQ Side right Resistance 2# Straight Leg Raise Supine Exercise Name SLR Side right Resistance 2# Prone Exercises Prone Hang Prone Exercise Name Prone Hang Reps/Minutes 2' Standing Exercises Stair Flexion Stretch Standing Exercise Name Flexion stretch on stairs Side right PT-OP-R Modalities Start: 09/09/18 11:59 Freq: Status: Active Protocol: Document 09/30/18 10:30 DCW (Rec: 09/30/18 11:14 DCW [id number]) Electric Stimulation Electric Stimulation Interferential Current (IFC) Body Location R knee Duration (Minutes) 15 Intensity 36 Patient Position Hooklying Combined With Heat/Cold Cold Pack PT-OP-T Assessment and Plan Start: 09/09/18 11:59 Freq: Status: Active Protocol: Document 09/30/18 10:30 DCW (Rec: 09/30/18 11:14 DCW [id number]) Physical Therapy Assessment Impairments Impairments Activity Tolerance Balance Edema Functional Activities Functional Mobility Gait Pain ROM Soft Tissue Mobility Strength Goals Five Impairment ROM Short Term Goal (STG) Left knee AROM to 5?-110? STG Duration 10/14/18 Custodial Goal (LTG) Left knee AROM to 0?-120? LTG Duration 12/10/18 Four Impairment Strength Custodial Goal (LTG) Gross LE MMT to 4/5 LTG Duration 11/09/18 Three Impairment Joint Effusion Supervisor Word Processing Goal (LTG) Circumfrence measurements on left knee to equal right LTG Duration 11/09/18 Two Impairment Floor transfers Supervisor Word Processing Goal (LTG) Pt to get off floor of workshop without use of objects to use UE to pull himself up LTG Duration 12/10/18 One Impairment Pt does not have appropriate home exercise program Short Term Goal (STG) Pt to be independent and compliant with an appropriate HEP STG Duration 10/10/18 Assessment Summary Assessment Discussed with pt to keep forward momentum with walker instead of stopping between each step. Physical Therapy Plan Frequency and Duration Frequency of Treatment 2x/Week Duration of Treatment 12 weeks Plan of Care Start Date 09/09/18 Plan of Care End Date 12/02/18 Therapeutic Interventions Therapeutic Interventions Aquatic Therapy Balance Training Gait Training Home Exercise Program Joint Mobilizations Manual Therapy Neuromuscular Re-education Patient/Caregiver Education Self-Care/Home Management Soft Tissue Mobilization Therapeutic Activities Therapeutic Exercises Modalities Cold Pack/Ice Massage Electric Stimulation Hot Packs Ultrasound Next Visit Focus/Plan Next Note Type Treatment Note Next Visit Plan ROM/Flexibility, Strengthening , Gait training
--- NOTE | 2018-10-04 11:15 | PT.OTN ---
Current Diagnoses Bilateral primary osteoarthritis of knee (10/04/18) Aftercare following joint replacement surgery (10/04/18) Presence of right artificial knee joint (10/04/18) Physical Therapy Treatment Note PT-OP-A Visit Information Start: 09/09/18 11:59 Freq: Status: Active Protocol: Document 10/04/18 10:30 DCW (Rec: 10/04/18 11:15 DCW [id number]) Out-Patient Physical Therapy Visit Information Visit Information Visit Type Treatment Note Visit Note 2019 visit #20 Visit Start Time 10:30 Visit Stop Time 11:25 Total Visit Minutes 55 Visit Number 01/11 Evaluation Information Evaluation Date 09/09/18 PT-OP-B Current Condition Start: 09/09/18 11:59 Freq: Status: Active Protocol: Document 09/09/18 10:30 DCW (Rec: 09/09/18 12:30 DCW [id number]) Current Condition History of Current Condition Onset Date 09/06/18 Current Complaints Right knee pain, weakness, stiffness, difficulty with gait s/p R TKA History of Current Condition Pt is a 73 year old male well known to this clinic presenting 3 days s/p R TKA following failure of conservative treatment. Pt reports his pain varies from a 2/10 at rest to a 10/10 when trying to lift his leg into his vehicle or straighten his right knee out. Pt comes into the clinic today with increased difficulty ambulating with his rented FWW , most notably due to the fact that at its highest setting, it is still 5 inches too short . Pt reports he is currently on Oxycodone for pain control, but is looking forward to getting off of it. Prior Treatments and Tests Prior history of PT at this clinic, most recently discharged after his last visit on 08/30/18 to prepare for his TKA. Treatment Goals Patient/Caregiver Goals Return to prior level of function, especially getting up and down from the floor in his workshop. Prior Functional Status Baseline Function- ADL's Independent Baseline Function- Mobility Independent Current Functional Impairments (Reported) Functional Limitations- Mobility/Gait Ambulating step-to gait pattern using a FWW that is approximately 5 inches too short, severely antalgic PT-OP-C Subjective Start: 09/09/18 11:59 Freq: Status: Active Protocol: Document 10/04/18 10:30 DCW (Rec: 10/04/18 11:15 DCW [id number]) OP-PT Subjective Patient Comments Patient Comments Pt reports he was able to get his leg into his car more easily today. PT-OP-F Manual Assessment Start: 09/09/18 11:59 Freq: Status: Active Protocol: Document 09/09/18 10:30 DCW (Rec: 09/09/18 12:30 DCW [id number]) Manual Assessments Soft Tissue Assessment Soft Tissue Mobility Assessment Joint effusion along surgical site, surgical incision covered in post-op bandage, appears CDI. Pt has weak quad contraction, requires verbal and tactile cues for contraction Joint Mobility Assessment Joint Mobility Assessment Limited active and passive ROM secondary to pain, soft tissue edema, and joint effusion PT-OP-G Mobility & Gait Start: 09/09/18 12:30 Freq: Status: Active Protocol: Document 09/09/18 10:30 DCW (Rec: 09/09/18 12:35 DCW [id number]) OP Gait Assessment Gait Gait Assistance Required: Standby Assistance Distance (Feet) 200 Able to Maintain Weight Bearing Status Yes During Gait Assistive Devices Assistive Device Front Wheeled Walker Orthotic/Prosthetic Devices or Brace: No Gait Deviations General Gait Pattern Antalgic Decreased Stride Length Decreased Feet Clearance Flexed Trunk Lateral Trunk Lean Step-to Gait Wide Based Gait Factors Limiting Gait Function Factors Limiting Gait Function Limited Range of Motion Pain Comments Gait Comments Pt's gait initialy hampered due to his FWW, which is ~5 inches too short. After borrowing a clinic FWW which was an appropriate height, pt' s gait pattern improved, and he was able to ambulate step- through with minimal antalgia. PT-OP-J Posture/Palpation/Skin Start: 09/09/18 12:30 Freq: Status: Active Protocol: Document 09/09/18 10:30 DCW (Rec: 09/09/18 12:35 DCW [id number]) Skin Assessment Circumference Measurement 10 cm inferior to jt line Location Right calf Measurement (Centimeters) 39.2 Comments Left = 38.8 Joint line Location Right knee Measurement (Centimeters) 44.2 Comments Left = 40.0 cm 10 cm superior to jt line Location Right thigh Measurement (Centimeters) 48.5 Comments Left = 43.8 cm PT-OP-K Range of Motion Start: 09/09/18 11:59 Freq: Status: Active Protocol: Document 09/09/18 10:30 DCW (Rec: 09/09/18 12:30 DCW [id number]) Knee Goniometric Range of Motion Knee Measured in Degrees Left Knee ROM WFL No Patient Position Supine Flexion Active (degrees) 73 Flexion Passive (degrees) 84 Extension Active (degrees) 10 Extension Passive (degrees) 10 Knee ROM Limitations Knee ROM Limitations Soft Tissue Tightness Bony Restriction Muscle Weakness Muscle Tone Pain Swelling Comments Seated AROM 20-74? PT-OP-M Strength Start: 09/09/18 11:59 Freq: Status: Active Protocol: Document 09/09/18 10:30 DCW (Rec: 09/09/18 12:30 DCW [id number]) Knee Strength Knee Manual Muscle Testing Left Flexion (S2) 2- Poor- Extension (L3) 3- Fair- PT-OP-Q Treatments Start: 09/09/18 11:59 Freq: Status: Active Protocol: Document 10/04/18 10:30 DCW (Rec: 10/04/18 11:15 DCW [id number]) Cardio Equipment Recumbent Bicycle Duration (Minutes) 5 Resistance 0 Seat Position 9 Other Full rotations forward Gym Equipment Shuttle Recovery Unilateral Squats Details Right Resistance 50# Shuttle Recovery Platform Stable Bilateral Squats Resistance 100# Shuttle Recovery Platform Stable Therapeutic Ball Supine Flexion Stretch Exercise Details AAROM knee flexion /c strap Ball Size/Color Blue - 45 cm Body Position Supine Therapeutic Exercises Supine Exercises Short Arc Quad Supine Exercise Name SAQ Side right Resistance 2# Straight Leg Raise Supine Exercise Name SLR Side right Resistance 2# Prone Exercises Prone Hang Prone Exercise Name Prone Hang Resistance 2# Reps/Minutes 2' PT-OP-R Modalities Start: 09/09/18 11:59 Freq: Status: Active Protocol: Document 10/04/18 10:30 DCW (Rec: 10/04/18 11:15 DCW [id number]) Electric Stimulation Electric Stimulation Interferential Current (IFC) Body Location R knee Duration (Minutes) 15 Intensity 27 Patient Position Hooklying Combined With Heat/Cold Cold Pack PT-OP-T Assessment and Plan Start: 09/09/18 11:59 Freq: Status: Active Protocol: Document 10/04/18 10:30 DCW (Rec: 10/04/18 11:15 [facility] [id number]) Physical Therapy Assessment Impairments Impairments Activity Tolerance Balance Edema Functional Activities Functional Mobility Gait Pain ROM Soft Tissue Mobility Strength Goals Five Impairment ROM Short Term Goal (STG) Left knee AROM to 5?-110? STG Duration 10/14/18 Dining Manager Goal (LTG) Left knee AROM to 0?-120? LTG Duration 12/10/18 Four Impairment Strength Usp Goal (LTG) Gross LE MMT to 4/5 LTG Duration 11/09/18 Three Impairment Joint Effusion Dining Manager Goal (LTG) Circumfrence measurements on left knee to equal right LTG Duration 11/09/18 Two Impairment Floor transfers Usp Goal (LTG) Pt to get off floor of workshop without use of objects to use UE to pull himself up LTG Duration 12/10/18 One Impairment Pt does not have appropriate home exercise program Short Term Goal (STG) Pt to be independent and compliant with an appropriate HEP STG Duration 10/10/18 Assessment Summary Assessment Ambulation improving, pt stops less in-between steps. Pt making progress with his ROM, however still limited by pain and stiffness Physical Therapy Plan Frequency and Duration Frequency of Treatment 2x/Week Duration of Treatment 12 weeks Plan of Care Start Date 09/09/18 Plan of Care End Date 12/02/18 Therapeutic Interventions Therapeutic Interventions Aquatic Therapy Balance Training Gait Training Home Exercise Program Joint Mobilizations Manual Therapy Neuromuscular Re-education Patient/Caregiver Education Self-Care/Home Management Soft Tissue Mobilization Therapeutic Activities Therapeutic Exercises Modalities Cold Pack/Ice Massage Electric Stimulation Hot Packs Ultrasound Next Visit Focus/Plan Next Note Type Treatment Note Next Visit Plan ROM/Flexibility, Strengthening , Gait training
--- NOTE | 2018-10-07 11:16 | PT.OTN ---
Current Diagnoses Bilateral primary osteoarthritis of knee (10/07/18) Aftercare following joint replacement surgery (10/07/18) Presence of right artificial knee joint (10/07/18) Physical Therapy Treatment Note PT-OP-A Visit Information Start: 09/09/18 11:59 Freq: Status: Active Protocol: Document 10/07/18 10:30 DCW (Rec: 10/07/18 11:16 DCW [id number]) Out-Patient Physical Therapy Visit Information Visit Information Visit Type Treatment Note Visit Note 2019 visit #20 Visit Start Time 10:30 Visit Stop Time 11:25 Total Visit Minutes 55 Visit Number 02/11 Evaluation Information Evaluation Date 09/09/18 PT-OP-B Current Condition Start: 09/09/18 11:59 Freq: Status: Active Protocol: Document 09/09/18 10:30 DCW (Rec: 09/09/18 12:30 DCW [id number]) Current Condition History of Current Condition Onset Date 09/06/18 Current Complaints Right knee pain, weakness, stiffness, difficulty with gait s/p R TKA History of Current Condition Pt is a 73 year old male well known to this clinic presenting 3 days s/p R TKA following failure of conservative treatment. Pt reports his pain varies from a 2/10 at rest to a 10/10 when trying to lift his leg into his vehicle or straighten his right knee out. Pt comes into the clinic today with increased difficulty ambulating with his rented FWW , most notably due to the fact that at its highest setting, it is still 5 inches too short . Pt reports he is currently on Oxycodone for pain control, but is looking forward to getting off of it. Prior Treatments and Tests Prior history of PT at this clinic, most recently discharged after his last visit on 08/30/18 to prepare for his TKA. Treatment Goals Patient/Caregiver Goals Return to prior level of function, especially getting up and down from the floor in his workshop. Prior Functional Status Baseline Function- ADL's Independent Baseline Function- Mobility Independent Current Functional Impairments (Reported) Functional Limitations- Mobility/Gait Ambulating step-to gait pattern using a FWW that is approximately 5 inches too short, severely antalgic PT-OP-C Subjective Start: 09/09/18 11:59 Freq: Status: Active Protocol: Document 10/07/18 10:30 DCW (Rec: 10/07/18 11:16 DCW [id number]) OP-PT Subjective Patient Comments Patient Comments Pt reports he has been practicing walking around his house without his FWW. PT-OP-F Manual Assessment Start: 09/09/18 11:59 Freq: Status: Active Protocol: Document 09/09/18 10:30 DCW (Rec: 09/09/18 12:30 DCW [id number]) Manual Assessments Soft Tissue Assessment Soft Tissue Mobility Assessment Joint effusion along surgical site, surgical incision covered in post-op bandage, appears CDI. Pt has weak quad contraction, requires verbal and tactile cues for contraction Joint Mobility Assessment Joint Mobility Assessment Limited active and passive ROM secondary to pain, soft tissue edema, and joint effusion PT-OP-G Mobility & Gait Start: 09/09/18 12:30 Freq: Status: Active Protocol: Document 09/09/18 10:30 DCW (Rec: 09/09/18 12:35 DCW [id number]) OP Gait Assessment Gait Gait Assistance Required: Standby Assistance Distance (Feet) 200 Able to Maintain Weight Bearing Status Yes During Gait Assistive Devices Assistive Device Front Wheeled Walker Orthotic/Prosthetic Devices or Brace: No Gait Deviations General Gait Pattern Antalgic Decreased Stride Length Decreased Feet Clearance Flexed Trunk Lateral Trunk Lean Step-to Gait Wide Based Gait Factors Limiting Gait Function Factors Limiting Gait Function Limited Range of Motion Pain Comments Gait Comments Pt's gait initialy hampered due to his FWW, which is ~5 inches too short. After borrowing a clinic FWW which was an appropriate height, pt' s gait pattern improved, and he was able to ambulate step- through with minimal antalgia. PT-OP-J Posture/Palpation/Skin Start: 09/09/18 12:30 Freq: Status: Active Protocol: Document 09/09/18 10:30 DCW (Rec: 09/09/18 12:35 DCW [id number]) Skin Assessment Circumference Measurement 10 cm inferior to jt line Location Right calf Measurement (Centimeters) 39.2 Comments Left = 38.8 Joint line Location Right knee Measurement (Centimeters) 44.2 Comments Left = 40.0 cm 10 cm superior to jt line Location Right thigh Measurement (Centimeters) 48.5 Comments Left = 43.8 cm PT-OP-K Range of Motion Start: 09/09/18 11:59 Freq: Status: Active Protocol: Document 09/09/18 10:30 DCW (Rec: 09/09/18 12:30 DCW [id number]) Knee Goniometric Range of Motion Knee Measured in Degrees Left Knee ROM WFL No Patient Position Supine Flexion Active (degrees) 73 Flexion Passive (degrees) 84 Extension Active (degrees) 10 Extension Passive (degrees) 10 Knee ROM Limitations Knee ROM Limitations Soft Tissue Tightness Bony Restriction Muscle Weakness Muscle Tone Pain Swelling Comments Seated AROM 20-74? PT-OP-M Strength Start: 09/09/18 11:59 Freq: Status: Active Protocol: Document 09/09/18 10:30 DCW (Rec: 09/09/18 12:30 DCW [id number]) Knee Strength Knee Manual Muscle Testing Left Flexion (S2) 2- Poor- Extension (L3) 3- Fair- PT-OP-Q Treatments Start: 09/09/18 11:59 Freq: Status: Active Protocol: Document 10/07/18 10:30 DCW (Rec: 10/07/18 11:16 DCW [id number]) Cardio Equipment Recumbent Bicycle Duration (Minutes) 5 Resistance 0 Seat Position 9 Other Full rotations forward Gym Equipment Shuttle Recovery Unilateral Squats Details Right Resistance 62# Shuttle Recovery Platform Stable Bilateral Squats Resistance 125# Shuttle Recovery Platform Stable Therapeutic Exercises Supine Exercises Short Arc Quad Supine Exercise Name SAQ Side right Resistance 5# Straight Leg Raise Supine Exercise Name SLR Side right Resistance 5# Prone Exercises Prone Hang Prone Exercise Name Prone Hang Resistance 5# Reps/Minutes 3' Standing Exercises Stair Flexion Stretch Standing Exercise Name Flexion stretch on stairs Side right PT-OP-R Modalities Start: 09/09/18 11:59 Freq: Status: Active Protocol: Document 10/07/18 10:30 DCW (Rec: 10/07/18 11:16 DCW [id number]) Electric Stimulation Electric Stimulation Interferential Current (IFC) Body Location R knee Duration (Minutes) 15 Intensity 38 Patient Position Hooklying Combined With Heat/Cold Cold Pack PT-OP-T Assessment and Plan Start: 09/09/18 11:59 Freq: Status: Active Protocol: Document 10/07/18 10:30 DCW (Rec: 10/07/18 11:16 DCW [id number]) Physical Therapy Assessment Impairments Impairments Activity Tolerance Balance Edema Functional Activities Functional Mobility Gait Pain ROM Soft Tissue Mobility Strength Goals Five Impairment ROM Short Term Goal (STG) Left knee AROM to 5?-110? STG Duration 10/14/18 Senior Living Goal (LTG) Left knee AROM to 0?-120? LTG Duration 12/10/18 Four Impairment Strength Dipper Machine Operator Goal (LTG) Gross LE MMT to 4/5 LTG Duration 11/09/18 Three Impairment Joint Effusion Dipper Machine Operator Goal (LTG) Circumfrence measurements on left knee to equal right LTG Duration 11/09/18 Two Impairment Floor transfers Senior Living Goal (LTG) Pt to get off floor of workshop without use of objects to use UE to pull himself up LTG Duration 12/10/18 One Impairment Pt does not have appropriate home exercise program Short Term Goal (STG) Pt to be independent and compliant with an appropriate HEP STG Duration 10/10/18 Assessment Summary Assessment Pt working hard to improve ROM , still stuck around 100 degrees flexion, will work toward increased manual overpressure in an attempt to increase flexion Physical Therapy Plan Frequency and Duration Frequency of Treatment 2x/Week Duration of Treatment 12 weeks Plan of Care Start Date 09/09/18 Plan of Care End Date 12/02/18 Therapeutic Interventions Therapeutic Interventions Aquatic Therapy Balance Training Gait Training Home Exercise Program Joint Mobilizations Manual Therapy Neuromuscular Re-education Patient/Caregiver Education Self-Care/Home Management Soft Tissue Mobilization Therapeutic Activities Therapeutic Exercises Modalities Cold Pack/Ice Massage Electric Stimulation Hot Packs Ultrasound Next Visit Focus/Plan Next Note Type Treatment Note Next Visit Plan ROM/Flexibility, Strengthening , Gait training
--- NOTE | 2018-10-11 11:17 | PT.OTN ---
Current Diagnoses Bilateral primary osteoarthritis of knee (10/11/18) Aftercare following joint replacement surgery (10/11/18) Presence of right artificial knee joint (10/11/18) Physical Therapy Treatment Note PT-OP-A Visit Information Start: 09/09/18 11:59 Freq: Status: Active Protocol: Document 10/11/18 10:30 DCW (Rec: 10/11/18 11:17 DCW [id number]) Out-Patient Physical Therapy Visit Information Visit Information Visit Type Treatment Note Visit Note 2019 visit #21 Visit Start Time 10:30 Visit Stop Time 11:25 Total Visit Minutes 55 Visit Number 03/14 Evaluation Information Evaluation Date 09/09/18 PT-OP-B Current Condition Start: 09/09/18 11:59 Freq: Status: Active Protocol: Document 09/09/18 10:30 DCW (Rec: 09/09/18 12:30 DCW [id number]) Current Condition History of Current Condition Onset Date 09/06/18 Current Complaints Right knee pain, weakness, stiffness, difficulty with gait s/p R TKA History of Current Condition Pt is a 73 year old male well known to this clinic presenting 3 days s/p R TKA following failure of conservative treatment. Pt reports his pain varies from a 2/10 at rest to a 10/10 when trying to lift his leg into his vehicle or straighten his right knee out. Pt comes into the clinic today with increased difficulty ambulating with his rented FWW , most notably due to the fact that at its highest setting, it is still 5 inches too short . Pt reports he is currently on Oxycodone for pain control, but is looking forward to getting off of it. Prior Treatments and Tests Prior history of PT at this clinic, most recently discharged after his last visit on 08/30/18 to prepare for his TKA. Treatment Goals Patient/Caregiver Goals Return to prior level of function, especially getting up and down from the floor in his workshop. Prior Functional Status Baseline Function- ADL's Independent Baseline Function- Mobility Independent Current Functional Impairments (Reported) Functional Limitations- Mobility/Gait Ambulating step-to gait pattern using a FWW that is approximately 5 inches too short, severely antalgic PT-OP-C Subjective Start: 09/09/18 11:59 Freq: Status: Active Protocol: Document 10/11/18 10:30 DCW (Rec: 10/11/18 11:17 DCW [id number]) OP-PT Subjective Patient Comments Patient Comments Let's get this woking, I'm tired of being a cripple. PT-OP-F Manual Assessment Start: 09/09/18 11:59 Freq: Status: Active Protocol: Document 09/09/18 10:30 DCW (Rec: 09/09/18 12:30 DCW [id number]) Manual Assessments Soft Tissue Assessment Soft Tissue Mobility Assessment Joint effusion along surgical site, surgical incision covered in post-op bandage, appears CDI. Pt has weak quad contraction, requires verbal and tactile cues for contraction Joint Mobility Assessment Joint Mobility Assessment Limited active and passive ROM secondary to pain, soft tissue edema, and joint effusion PT-OP-G Mobility & Gait Start: 09/09/18 12:30 Freq: Status: Active Protocol: Document 09/09/18 10:30 DCW (Rec: 09/09/18 12:35 DCW [id number]) OP Gait Assessment Gait Gait Assistance Required: Standby Assistance Distance (Feet) 200 Able to Maintain Weight Bearing Status Yes During Gait Assistive Devices Assistive Device Front Wheeled Walker Orthotic/Prosthetic Devices or Brace: No Gait Deviations General Gait Pattern Antalgic Decreased Stride Length Decreased Feet Clearance Flexed Trunk Lateral Trunk Lean Step-to Gait Wide Based Gait Factors Limiting Gait Function Factors Limiting Gait Function Limited Range of Motion Pain Comments Gait Comments Pt's gait initialy hampered due to his FWW, which is ~5 inches too short. After borrowing a clinic FWW which was an appropriate height, pt' s gait pattern improved, and he was able to ambulate step- through with minimal antalgia. PT-OP-J Posture/Palpation/Skin Start: 09/09/18 12:30 Freq: Status: Active Protocol: Document 09/09/18 10:30 DCW (Rec: 09/09/18 12:35 DCW [id number]) Skin Assessment Circumference Measurement 10 cm inferior to jt line Location Right calf Measurement (Centimeters) 39.2 Comments Left = 38.8 Joint line Location Right knee Measurement (Centimeters) 44.2 Comments Left = 40.0 cm 10 cm superior to jt line Location Right thigh Measurement (Centimeters) 48.5 Comments Left = 43.8 cm PT-OP-K Range of Motion Start: 03/08/19 11:59 Freq: Status: Active Protocol: Document 09/09/18 10:30 DCW (Rec: 09/09/18 12:30 DCW [id number]) Knee Goniometric Range of Motion Knee Measured in Degrees Left Knee ROM WFL No Patient Position Supine Flexion Active (degrees) 73 Flexion Passive (degrees) 84 Extension Active (degrees) 10 Extension Passive (degrees) 10 Knee ROM Limitations Knee ROM Limitations Soft Tissue Tightness Bony Restriction Muscle Weakness Muscle Tone Pain Swelling Comments Seated AROM 20-74? PT-OP-M Strength Start: 09/09/18 11:59 Freq: Status: Active Protocol: Document 09/09/18 10:30 DCW (Rec: 09/09/18 12:30 DCW [id number]) Knee Strength Knee Manual Muscle Testing Left Flexion (S2) 2- Poor- Extension (L3) 3- Fair- PT-OP-Q Treatments Start: 09/09/18 11:59 Freq: Status: Active Protocol: Document 10/11/18 10:30 DCW (Rec: 10/11/18 11:17 DCW [id number]) Cardio Equipment Recumbent Bicycle Duration (Minutes) 5 Resistance 2 Seat Position 9 Gym Equipment Shuttle Recovery Unilateral Squats Details Right Resistance 62# Shuttle Recovery Platform Stable Bilateral Squats Resistance 125# Shuttle Recovery Platform Stable Therapeutic Exercises Standing Exercises Stair Flexion Stretch Standing Exercise Name Flexion stretch on stairs Side right Manual Therapy Treatment Soft Tissue Mobilization Hamstring Body Location R Hamstring Mobilization Type Instrument Assisted Rolling Other Other Manual Treatments Manual Extension Stretch PT-OP-R Modalities Start: 09/09/18 11:59 Freq: Status: Active Protocol: Document 10/11/18 10:30 DCW (Rec: 10/11/18 11:17 DCW [id number]) Electric Stimulation Electric Stimulation Interferential Current (IFC) Body Location R knee Duration (Minutes) 15 Intensity 44 Patient Position Hooklying Combined With Heat/Cold Cold Pack PT-OP-T Assessment and Plan Start: 09/09/18 11:59 Freq: Status: Active Protocol: Document 10/11/18 10:30 DCW (Rec: 10/11/18 11:17 DCW [id number]) Physical Therapy Assessment Impairments Impairments Activity Tolerance Balance Edema Functional Activities Functional Mobility Gait Pain ROM Soft Tissue Mobility Strength Goals Five Impairment ROM Short Term Goal (STG) Left knee AROM to 5?-110? STG Duration 10/14/18 Airport Operations Coordinator Goal (LTG) Left knee AROM to 0?-120? LTG Duration 12/10/18 Four Impairment Strength Airport Operations Coordinator Goal (LTG) Gross LE MMT to 10/07 LTG Duration 11/09/18 Three Impairment Joint Effusion Airport Operations Coordinator Goal (LTG) Circumfrence measurements on left knee to equal right LTG Duration 11/09/18 Two Impairment Floor transfers [facility] Goal (LTG) Pt to get off floor of workshop without use of objects to use UE to pull himself up LTG Duration 12/10/18 One Impairment Pt does not have appropriate home exercise program Short Term Goal (STG) Pt to be independent and compliant with an appropriate HEP STG Duration 10/10/18 Assessment Summary Assessment Pt ROM improved today after manual therapy to 14-108 PROM, however pt was much more restricted today with extension upon arrival, with an AROM of 28 degrees extension. Physical Therapy Plan Frequency and Duration Frequency of Treatment 2x/Week Duration of Treatment 12 weeks Plan of Care Start Date 09/09/18 Plan of Care End Date 12/02/18 Therapeutic Interventions Therapeutic Interventions Aquatic Therapy Balance Training Gait Training Home Exercise Program Joint Mobilizations Manual Therapy Neuromuscular Re-education Patient/Caregiver Education Self-Care/Home Management Soft Tissue Mobilization Therapeutic Activities Therapeutic Exercises Modalities Cold Pack/Ice Massage Electric Stimulation Hot Packs Ultrasound Next Visit Focus/Plan Next Note Type Treatment Note Next Visit Plan ROM/Flexibility, Strengthening , Gait training
--- NOTE | 2018-10-14 11:20 | PT.OTN ---
Current Diagnoses Bilateral primary osteoarthritis of knee (10/14/18) Aftercare following joint replacement surgery (10/14/18) Presence of right artificial knee joint (10/14/18) Physical Therapy Treatment Note PT-OP-A Visit Information Start: 09/09/18 11:59 Freq: Status: Active Protocol: Document 10/14/18 10:35 DCW (Rec: 10/14/18 11:19 DCW [id number]) Out-Patient Physical Therapy Visit Information Visit Information Visit Type Progress Note Visit Note 2019 visit #22 Visit Start Time 10:35 Visit Stop Time 11:25 Total Visit Minutes 50 Visit Number 04/13 Evaluation Information Evaluation Date 09/09/18 PT-OP-B Current Condition Start: 09/09/18 11:59 Freq: Status: Active Protocol: Document 09/09/18 10:30 DCW (Rec: 09/09/18 12:30 DCW [id number]) Current Condition History of Current Condition Onset Date 09/06/18 Current Complaints Right knee pain, weakness, stiffness, difficulty with gait s/p R TKA History of Current Condition Pt is a 73 year old male well known to this clinic presenting 3 days s/p R TKA following failure of conservative treatment. Pt reports his pain varies from a 2/10 at rest to a 10/10 when trying to lift his leg into his vehicle or straighten his right knee out. Pt comes into the clinic today with increased difficulty ambulating with his rented FWW , most notably due to the fact that at its highest setting, it is still 5 inches too short . Pt reports he is currently on Oxycodone for pain control, but is looking forward to getting off of it. Prior Treatments and Tests Prior history of PT at this clinic, most recently discharged after his last visit on 08/30/18 to prepare for his TKA. Treatment Goals Patient/Caregiver Goals Return to prior level of function, especially getting up and down from the floor in his workshop. Prior Functional Status Baseline Function- ADL's Independent Baseline Function- Mobility Independent Current Functional Impairments (Reported) Functional Limitations- Mobility/Gait Ambulating step-to gait pattern using a FWW that is approximately 5 inches too short, severely antalgic PT-OP-C Subjective Start: 09/09/18 11:59 Freq: Status: Active Protocol: Document 10/14/18 10:35 DCW (Rec: 10/14/18 11:19 DCW [id number]) OP-PT Subjective Patient Comments Patient Comments Pt reports he has run out of his medication he takes to limit his muscle spasm, which resulted in a restless night last night due to near- constant muscle spasm in his right leg. PT-OP-F Manual Assessment Start: 09/09/18 11:59 Freq: Status: Active Protocol: Document 10/14/18 10:35 DCW (Rec: 10/14/18 11:12 DCW [id number]) Manual Assessments Soft Tissue Assessment Soft Tissue Mobility Assessment Incision healing nicely, good quad contraction, moderate- severe tone through right hamstring PT-OP-G Mobility & Gait Start: 09/09/18 12:30 Freq: Status: Active Protocol: Document 10/14/18 10:35 DCW (Rec: 10/14/18 11:07 DCW [id number]) OP Gait Assessment Assistive Devices Assistive Device Front Wheeled Walker Gait Deviations General Gait Pattern Antalgic Decreased Stride Length Decreased Feet Clearance Flexed Trunk Wide Based Gait Factors Limiting Gait Function Factors Limiting Gait Function Limited Range of Motion Pain Comments Gait Comments Pt continues to ambulate with antalgic, however, with an appropriately-sized FWW, is able to ambulate community distances without too much reliance on his upper extremities. PT-OP-J Posture/Palpation/Skin Start: 09/09/18 12:30 Freq: Status: Active Protocol: Document 10/14/18 10:35 DCW (Rec: 10/14/18 11:07 DCW [id number]) Skin Assessment Circumference Measurement 10 cm inferior to jt line Location Right calf Measurement (Centimeters) 36.7 Comments Left = 38.8 Joint line Location Right knee Measurement (Centimeters) 41.9 Comments Left = 40.0 cm 10 cm superior to jt line Location Right thigh Measurement (Centimeters) 43.4 Comments Left = 43.8 cm PT-OP-K Range of Motion Start: 09/09/18 11:59 Freq: Status: Active Protocol: Document 10/14/18 10:35 DCW (Rec: 10/14/18 11:07 DCW [id number]) Knee Goniometric Range of Motion Knee Measured in Degrees Left Knee ROM WFL No Patient Position Supine Flexion Active (degrees) 102 Flexion Passive (degrees) 104 Extension Active (degrees) 26 Extension Passive (degrees) 20 Knee ROM Limitations Knee ROM Limitations Soft Tissue Tightness Bony Restriction Muscle Weakness Muscle Tone Pain Swelling PT-OP-M Strength Start: 09/09/18 11:59 Freq: Status: Active Protocol: Document 10/14/18 10:35 DCW (Rec: 10/14/18 11:07 DCW [id number]) Knee Strength Knee Manual Muscle Testing Left Flexion (S2) 3 Fair Extension (L3) 3- Fair- PT-OP-Q Treatments Start: 09/09/18 11:59 Freq: Status: Active Protocol: Document 10/14/18 10:35 DCW (Rec: 10/14/18 11:19 DCW [id number]) Cardio Equipment Recumbent Bicycle Duration (Minutes) 5 Resistance 2 Seat Position 8 Gym Equipment Shuttle Recovery Unilateral Squats Details Right Resistance 75# Shuttle Recovery Platform Stable Bilateral Squats Resistance 125# Shuttle Recovery Platform Stable Manual Therapy Treatment Soft Tissue Mobilization Hamstring Body Location R Hamstring Mobilization Type Instrument Assisted Rolling Other Other Manual Treatments Manual Extension Stretch PT-OP-R Modalities Start: 09/09/18 11:59 Freq: Status: Active Protocol: Document 10/14/18 10:35 DCW (Rec: 10/14/18 11:19 DCW [id number]) Electric Stimulation Electric Stimulation Interferential Current (IFC) Body Location R knee Duration (Minutes) 15 Intensity 36 Patient Position Hooklying Combined With Heat/Cold Cold Pack PT-OP-T Assessment and Plan Start: 09/09/18 11:59 Freq: Status: Active Protocol: Document 10/14/18 10:35 DCW (Rec: 10/14/18 11:19 DCW [id number]) Physical Therapy Assessment Impairments Impairments Activity Tolerance Balance Edema Functional Activities Functional Mobility Gait Pain ROM Soft Tissue Mobility Strength Goals Five Impairment ROM Short Term Goal (STG) Left knee AROM to 5?-110? STG Duration 10/14/18 Optical Manufacturing Technician Goal (LTG) Left knee AROM to 0?-120? LTG Duration 12/10/18 Four Impairment Strength [facility] Goal (LTG) Gross LE MMT to 4/ LTG Duration 11/09/18 Three Impairment Joint Effusion [facility] Goal (LTG) Circumfrence measurements on left knee to equal right LTG Duration 11/09/18 Two Impairment Floor transfers Optical Manufacturing Technician Goal (LTG) Pt to get off floor of workshop without use of objects to use UE to pull himself up LTG Duration 12/10/18 One Impairment Pt does not have appropriate home exercise program Short Term Goal (STG) Pt to be independent and compliant with an appropriate HEP STG Duration 10/10/18 Assessment Summary Assessment Pt ROM continues to be restricted, not progressing as much as expected. Pt has a tendency to externally rotate his leg when in supine to avoid straightening his knee. Pt reports muscle spasm limits his ability to work on extension. Pt should benefit from continued therapy focused specifically on improving knee flexion and extension, as well as knee strengthening and improving gait. Physical Therapy Plan Frequency and Duration Frequency of Treatment 2x/Week Duration of Treatment 12 weeks Plan of Care Start Date 09/09/18 Plan of Care End Date 12/02/18 Therapeutic Interventions Therapeutic Interventions Aquatic Therapy Balance Training Gait Training Home Exercise Program Joint Mobilizations Manual Therapy Neuromuscular Re-education Patient/Caregiver Education Self-Care/Home Management Soft Tissue Mobilization Therapeutic Activities Therapeutic Exercises Modalities Cold Pack/Ice Massage Electric Stimulation Hot Packs Ultrasound Next Visit Focus/Plan Next Note Type Treatment Note Next Visit Plan ROM/Flexibility, Strengthening , Gait training
--- NOTE | 2018-10-18 15:14 | PT.OTN ---
Current Diagnoses Bilateral primary osteoarthritis of knee (10/18/18) Aftercare following joint replacement surgery (10/18/18) Presence of right artificial knee joint (10/18/18) Physical Therapy Treatment Note PT-OP-A Visit Information Start: 09/09/18 11:59 Freq: Status: Active Protocol: Document 10/18/18 13:45 DCW (Rec: 10/18/18 15:14 DCW [id number]) Out-Patient Physical Therapy Visit Information Visit Information Visit Type Treatment Note Visit Note 2019 visit #21 Visit Start Time 13:45 Visit Stop Time 14:40 Total Visit Minutes 55 Visit Number 08/14 Evaluation Information Evaluation Date 09/09/18 PT-OP-B Current Condition Start: 09/09/18 11:59 Freq: Status: Active Protocol: Document 09/09/18 10:30 DCW (Rec: 09/09/18 12:30 DCW [id number]) Current Condition History of Current Condition Onset Date 09/06/18 Current Complaints Right knee pain, weakness, stiffness, difficulty with gait s/p R TKA History of Current Condition Pt is a 73 year old male well known to this clinic presenting 3 days s/p R TKA following failure of conservative treatment. Pt reports his pain varies from a 2/10 at rest to a 10/10 when trying to lift his leg into his vehicle or straighten his right knee out. Pt comes into the clinic today with increased difficulty ambulating with his rented FWW , most notably due to the fact that at its highest setting, it is still 5 inches too short . Pt reports he is currently on Oxycodone for pain control, but is looking forward to getting off of it. Prior Treatments and Tests Prior history of PT at this clinic, most recently discharged after his last visit on 08/30/18 to prepare for his TKA. Treatment Goals Patient/Caregiver Goals Return to prior level of function, especially getting up and down from the floor in his workshop. Prior Functional Status Baseline Function- ADL's Independent Baseline Function- Mobility Independent Current Functional Impairments (Reported) Functional Limitations- Mobility/Gait Ambulating step-to gait pattern using a FWW that is approximately 5 inches too short, severely antalgic PT-OP-C Subjective Start: 09/09/18 11:59 Freq: Status: Active Protocol: Document 10/18/18 13:45 DCW (Rec: 10/18/18 15:14 DCW [id number]) OP-PT Subjective Patient Comments Patient Comments Pt attended his follow-up with Dr Anna today, reports he was told to get rid of the walker now, and reports she wasn't really happy with where I'm at, but I don't think that's really a surprise. PT-OP-F Manual Assessment Start: 09/09/18 11:59 Freq: Status: Active Protocol: Document 10/14/18 10:35 DCW (Rec: 10/14/18 11:12 DCW [id number]) Manual Assessments Soft Tissue Assessment Soft Tissue Mobility Assessment Incision healing nicely, good quad contraction, moderate- severe tone through right hamstring PT-OP-G Mobility & Gait Start: 09/09/18 12:30 Freq: Status: Active Protocol: Document 10/14/18 10:35 DCW (Rec: 10/14/18 11:07 DCW [id number]) OP Gait Assessment Assistive Devices Assistive Device Front Wheeled Walker Gait Deviations General Gait Pattern Antalgic Decreased Stride Length Decreased Feet Clearance Flexed Trunk Wide Based Gait Factors Limiting Gait Function Factors Limiting Gait Function Limited Range of Motion Pain Comments Gait Comments Pt continues to ambulate with antalgic, however, with an appropriately-sized FWW, is able to ambulate community distances without too much reliance on his upper extremities. PT-OP-J Posture/Palpation/Skin Start: 09/09/18 12:30 Freq: Status: Active Protocol: Document 10/14/18 10:35 DCW (Rec: 10/14/18 11:07 DCW [id number]) Skin Assessment Circumference Measurement 10 cm inferior to jt line Location Right calf Measurement (Centimeters) 36.7 Comments Left = 38.8 Joint line Location Right knee Measurement (Centimeters) 41.9 Comments Left = 40.0 cm 10 cm superior to jt line Location Right thigh Measurement (Centimeters) 43.4 Comments Left = 43.8 cm PT-OP-K Range of Motion Start: 09/09/18 11:59 Freq: Status: Active Protocol: Document 10/14/18 10:35 DCW (Rec: 10/14/18 11:07 DCW [id number]) Knee Goniometric Range of Motion Knee Measured in Degrees Left Knee ROM WFL No Patient Position Supine Flexion Active (degrees) 102 Flexion Passive (degrees) 104 Extension Active (degrees) 26 Extension Passive (degrees) 20 Knee ROM Limitations Knee ROM Limitations Soft Tissue Tightness Bony Restriction Muscle Weakness Muscle Tone Pain Swelling PT-OP-M Strength Start: 09/09/18 11:59 Freq: Status: Active Protocol: Document 10/14/18 10:35 DCW (Rec: 10/14/18 11:07 DCW [id number]) Knee Strength Knee Manual Muscle Testing Left Flexion (S2) 3 Fair Extension (L3) 3- Fair- PT-OP-Q Treatments Start: 09/09/18 11:59 Freq: Status: Active Protocol: Document 10/18/18 13:45 DCW (Rec: 10/18/18 15:14 DCW [id number]) Cardio Equipment Recumbent Bicycle Duration (Minutes) 5 Resistance 2 Seat Position 8 Gym Equipment Shuttle Recovery Unilateral Squats Details Right Resistance 50# Shuttle Recovery Platform Stable Reps/Time Deep Squat Bilateral Squats Resistance 100# Shuttle Recovery Platform Stable Reps/Time Deep Squat Therapeutic Exercises Standing Exercises Stair Flexion Stretch Standing Exercise Name Flexion stretch on stairs Side right Manual Therapy Treatment Soft Tissue Mobilization Hamstring Body Location R Hamstring Mobilization Type Instrument Assisted Rolling Other Other Manual Treatments Manual Extension Stretch - Supine and Prone PT-OP-R Modalities Start: 09/09/18 11:59 Freq: Status: Active Protocol: Document 10/18/18 13:45 DCW (Rec: 10/18/18 15:14 DCW [id number]) Electric Stimulation Electric Stimulation Interferential Current (IFC) Body Location R knee Duration (Minutes) 15 Intensity 41 Patient Position Hooklying Combined With Heat/Cold Cold Pack PT-OP-T Assessment and Plan Start: 09/09/18 11:59 Freq: Status: Active Protocol: Document 10/18/18 13:45 DCW (Rec: 10/18/18 15:14 DCW [id number]) Physical Therapy Assessment Impairments Impairments Activity Tolerance Balance Edema Functional Activities Functional Mobility Gait Pain ROM Soft Tissue Mobility Strength Goals Five Impairment ROM Short Term Goal (STG) Left knee AROM to 5?-110? STG Duration 10/14/18 Assistant Wrestling Coach Goal (LTG) Left knee AROM to 0?-120? LTG Duration 12/10/18 Four Impairment Strength [facility]it[facility]iary Goal (LTG) Gross LE MMT to 4/5 LTG Duration 11/09/18 Three Impairment Joint Effusion Assistant Wrestling Coach Goal (LTG) Circumfrence measurements on left knee to equal right LTG Duration 11/09/18 Two Impairment Floor transfers Assistant Wrestling Coach Goal (LTG) Pt to get off floor of workshop without use of objects to use UE to pull himself up LTG Duration 12/10/18 One Impairment Pt does not have appropriate home exercise program Short Term Goal (STG) Pt to be independent and compliant with an appropriate HEP STG Duration 10/10/18 Assessment Summary Assessment Minimal progress with ROM, Pt self-limits stretching sessions secondary to pain. Physical Therapy Plan Frequency and Duration Frequency of Treatment 2x/Week Duration of Treatment 12 weeks Plan of Care Start Date 09/09/18 Plan of Care End Date 12/02/18 Therapeutic Interventions Therapeutic Interventions Aquatic Therapy Balance Training Gait Training Home Exercise Program Joint Mobilizations Manual Therapy Neuromuscular Re-education Patient/Caregiver Education Self-Care/Home Management Soft Tissue Mobilization Therapeutic Activities Therapeutic Exercises Modalities Cold Pack/Ice Massage Electric Stimulation Hot Packs Ultrasound Next Visit Focus/Plan Next Note Type Treatment Note Next Visit Plan Continued focus on extension flexibility and decreasing hamstring contracture.
--- NOTE | 2018-10-21 11:09 | PT.OTN ---
Current Diagnoses Bilateral primary osteoarthritis of knee (10/21/18) Aftercare following joint replacement surgery (10/21/18) Presence of right artificial knee joint (10/21/18) Physical Therapy Treatment Note PT-OP-A Visit Information Start: 09/09/18 11:59 Freq: Status: Active Protocol: Document 10/21/18 10:30 DCW (Rec: 10/21/18 11:08 DCW [id number]) Out-Patient Physical Therapy Visit Information Visit Information Visit Type Treatment Note Visit Note 2019 visit #24 Visit Start Time 10:30 Visit Stop Time 11:25 Total Visit Minutes 55 Visit Number 09/11 Evaluation Information Evaluation Date 09/09/18 PT-OP-B Current Condition Start: 09/09/18 11:59 Freq: Status: Active Protocol: Document 09/09/18 10:30 DCW (Rec: 09/09/18 12:30 DCW [id number]) Current Condition History of Current Condition Onset Date 09/06/18 Current Complaints Right knee pain, weakness, stiffness, difficulty with gait s/p R TKA History of Current Condition Pt is a 73 year old male well known to this clinic presenting 3 days s/p R TKA following failure of conservative treatment. Pt reports his pain varies from a 2/10 at rest to a 10/10 when trying to lift his leg into his vehicle or straighten his right knee out. Pt comes into the clinic today with increased difficulty ambulating with his rented FWW , most notably due to the fact that at its highest setting, it is still 5 inches too short . Pt reports he is currently on Oxycodone for pain control, but is looking forward to getting off of it. Prior Treatments and Tests Prior history of PT at this clinic, most recently discharged after his last visit on 08/30/18 to prepare for his TKA. Treatment Goals Patient/Caregiver Goals Return to prior level of function, especially getting up and down from the floor in his workshop. Prior Functional Status Baseline Function- ADL's Independent Baseline Function- Mobility Independent Current Functional Impairments (Reported) Functional Limitations- Mobility/Gait Ambulating step-to gait pattern using a FWW that is approximately 5 inches too short, severely antalgic PT-OP-C Subjective Start: 09/09/18 11:59 Freq: Status: Active Protocol: Document 10/21/18 10:30 DCW (Rec: 10/21/18 11:08 DCW [id number]) OP-PT Subjective Patient Comments Patient Comments Pt reports he is feeling much better since his visit with Dr Anna, who put him on an anti -inflammatory, which seems to have improved both the swelling and the ROM of his knee. PT-OP-F Manual Assessment Start: 09/09/18 11:59 Freq: Status: Active Protocol: Document 10/14/18 10:35 DCW (Rec: 10/14/18 11:12 DCW [id number]) Manual Assessments Soft Tissue Assessment Soft Tissue Mobility Assessment Incision healing nicely, good quad contraction, moderate- severe tone through right hamstring PT-OP-G Mobility & Gait Start: 09/09/18 12:30 Freq: Status: Active Protocol: Document 10/14/18 10:35 DCW (Rec: 10/14/18 11:07 DCW [id number]) OP Gait Assessment Assistive Devices Assistive Device Front Wheeled Walker Gait Deviations General Gait Pattern Antalgic Decreased Stride Length Decreased Feet Clearance Flexed Trunk Wide Based Gait Factors Limiting Gait Function Factors Limiting Gait Function Limited Range of Motion Pain Comments Gait Comments Pt continues to ambulate with antalgic, however, with an appropriately-sized FWW, is able to ambulate community distances without too much reliance on his upper extremities. PT-OP-J Posture/Palpation/Skin Start: 09/09/18 12:30 Freq: Status: Active Protocol: Document 10/14/18 10:35 DCW (Rec: 10/14/18 11:07 DCW [id number]) Skin Assessment Circumference Measurement 10 cm inferior to jt line Location Right calf Measurement (Centimeters) 36.7 Comments Left = 38.8 Joint line Location Right knee Measurement (Centimeters) 41.9 Comments Left = 40.0 cm 10 cm superior to jt line Location Right thigh Measurement (Centimeters) 43.4 Comments Left = 43.8 cm PT-OP-K Range of Motion Start: 09/09/18 11:59 Freq: Status: Active Protocol: Document 10/14/18 10:35 DCW (Rec: 10/14/18 11:07 DCW [id number]) Knee Goniometric Range of Motion Knee Measured in Degrees Left Knee ROM WFL No Patient Position Supine Flexion Active (degrees) 102 Flexion Passive (degrees) 104 Extension Active (degrees) 26 Extension Passive (degrees) 20 Knee ROM Limitations Knee ROM Limitations Soft Tissue Tightness Bony Restriction Muscle Weakness Muscle Tone Pain Swelling PT-OP-M Strength Start: 09/09/18 11:59 Freq: Status: Active Protocol: Document 10/14/18 10:35 DCW (Rec: 10/14/18 11:07 DCW [id number]) Knee Strength Knee Manual Muscle Testing Left Flexion (S2) 3 Fair Extension (L3) 3- Fair- PT-OP-Q Treatments Start: 09/09/18 11:59 Freq: Status: Active Protocol: Document 10/21/18 10:30 DCW (Rec: 10/21/18 11:08 DCW [id number]) Cardio Equipment Recumbent Bicycle Duration (Minutes) 6 Resistance 2 Seat Position 8 Gym Equipment Shuttle Recovery Unilateral Squats Details Right Resistance 62# Shuttle Recovery Platform Stable Reps/Time Deep Squat Bilateral Squats Resistance 100# Shuttle Recovery Platform Stable Reps/Time Deep Squat Therapeutic Exercises Supine Exercises Extension Stretch Supine Exercise Name Supine Ext stretch Side right Resistance 20# Equipment Used foot on bolster Reps/Minutes 2 min Standing Exercises Stair Flexion Stretch Standing Exercise Name Flexion stretch on stairs Side right Manual Therapy Treatment Soft Tissue Mobilization Hamstring Body Location R Hamstring Mobilization Type Instrument Assisted Rolling Other Other Manual Treatments Manual Extension Stretch - Supine PT-OP-R Modalities Start: 09/09/18 11:59 Freq: Status: Active Protocol: Document 10/21/18 10:30 DCW (Rec: 10/21/18 11:09 DCW [id number]) Electric Stimulation Electric Stimulation Interferential Current (IFC) Body Location R knee Duration (Minutes) 15 Intensity 48 Patient Position Hooklying Combined With Heat/Cold Cold Pack PT-OP-T Assessment and Plan Start: 09/09/18 11:59 Freq: Status: Active Protocol: Document 10/21/18 10:30 DCW (Rec: 10/21/18 11:08 DCW [id number]) Physical Therapy Assessment Impairments Impairments Activity Tolerance Balance Edema Functional Activities Functional Mobility Gait Pain ROM Soft Tissue Mobility Strength Goals Five Impairment ROM Short Term Goal (STG) Left knee AROM to 5?-110? STG Duration 10/14/18 Alf Goal (LTG) Left knee AROM to 0?-120? LTG Duration 12/10/18 Four Impairment Strength Occupational Therapy Manager Goal (LTG) Gross LE MMT to 4/5 LTG Duration 11/09/18 Three Impairment Joint Effusion Occupational Therapy Manager Goal (LTG) Circumfrence measurements on left knee to equal right LTG Duration 11/09/18 Two Impairment Floor transfers Occupational Therapy Manager Goal (LTG) Pt to get off floor of workshop without use of objects to use UE to pull himself up LTG Duration 12/10/18 One Impairment Pt does not have appropriate home exercise program Short Term Goal (STG) Pt to be independent and compliant with an appropriate HEP STG Duration 10/10/18 Assessment Summary Assessment Improved ROM vs last week, right knee 15-111. Still limited from where he should be at this point, but recent improvement show cause for optimism Physical Therapy Plan Frequency and Duration Frequency of Treatment 2x/Week Duration of Treatment 12 weeks Plan of Care Start Date 09/09/18 Plan of Care End Date 12/02/18 Therapeutic Interventions Therapeutic Interventions Aquatic Therapy Balance Training Gait Training Home Exercise Program Joint Mobilizations Manual Therapy Neuromuscular Re-education Patient/Caregiver Education Self-Care/Home Management Soft Tissue Mobilization Therapeutic Activities Therapeutic Exercises Modalities Cold Pack/Ice Massage Electric Stimulation Hot Packs Ultrasound Next Visit Focus/Plan Next Note Type Treatment Note Next Visit Plan Continued focus on extension flexibility and decreasing hamstring contracture.
--- NOTE | 2018-10-24 11:15 | PT.OTN ---
Current Diagnoses Bilateral primary osteoarthritis of knee (10/24/18) Aftercare following joint replacement surgery (10/24/18) Presence of right artificial knee joint (10/24/18) Physical Therapy Treatment Note PT-OP-A Visit Information Start: 09/09/18 11:59 Freq: Status: Active Protocol: Document 10/24/18 10:40 DCW (Rec: 10/24/18 11:15 DCW [id number]) Out-Patient Physical Therapy Visit Information Visit Information Visit Type Treatment Note Visit Note 2019 visit #25 Pt arrived 10 minutes late Visit Start Time 10:40 Visit Stop Time 11:25 Total Visit Minutes 45 Visit Number 10/12 Evaluation Information Evaluation Date 09/09/18 PT-OP-B Current Condition Start: 09/09/18 11:59 Freq: Status: Active Protocol: Document 09/09/18 10:30 DCW (Rec: 09/09/18 12:30 DCW [id number]) Current Condition History of Current Condition Onset Date 09/06/18 Current Complaints Right knee pain, weakness, stiffness, difficulty with gait s/p R TKA History of Current Condition Pt is a 73 year old male well known to this clinic presenting 3 days s/p R TKA following failure of conservative treatment. Pt reports his pain varies from a 2/10 at rest to a 10/10 when trying to lift his leg into his vehicle or straighten his right knee out. Pt comes into the clinic today with increased difficulty ambulating with his rented FWW , most notably due to the fact that at its highest setting, it is still 5 inches too short . Pt reports he is currently on Oxycodone for pain control, but is looking forward to getting off of it. Prior Treatments and Tests Prior history of PT at this clinic, most recently discharged after his last visit on 08/30/18 to prepare for his TKA. Treatment Goals Patient/Caregiver Goals Return to prior level of function, especially getting up and down from the floor in his workshop. Prior Functional Status Baseline Function- ADL's Independent Baseline Function- Mobility Independent Current Functional Impairments (Reported) Functional Limitations- Mobility/Gait Ambulating step-to gait pattern using a FWW that is approximately 5 inches too short, severely antalgic PT-OP-C Subjective Start: 09/09/18 11:59 Freq: Status: Active Protocol: Document 10/24/18 10:40 DCW (Rec: 10/24/18 11:15 DCW [id number]) OP-PT Subjective Patient Comments Patient Comments Pt reports he has noticed substantial improvement over the past week, and was able to stand on each foot individually to put his pants on this morning. PT-OP-F Manual Assessment Start: 09/09/18 11:59 Freq: Status: Active Protocol: Document 10/14/18 10:35 DCW (Rec: 10/14/18 11:12 DCW [id number]) Manual Assessments Soft Tissue Assessment Soft Tissue Mobility Assessment Incision healing nicely, good quad contraction, moderate- severe tone through right hamstring PT-OP-G Mobility & Gait Start: 09/09/18 12:30 Freq: Status: Active Protocol: Document 10/14/18 10:35 DCW (Rec: 10/14/18 11:07 DCW [id number]) OP Gait Assessment Assistive Devices Assistive Device Front Wheeled Walker Gait Deviations General Gait Pattern Antalgic Decreased Stride Length Decreased Feet Clearance Flexed Trunk Wide Based Gait Factors Limiting Gait Function Factors Limiting Gait Function Limited Range of Motion Pain Comments Gait Comments Pt continues to ambulate with antalgic, however, with an appropriately-sized FWW, is able to ambulate community distances without too much reliance on his upper extremities. PT-OP-J Posture/Palpation/Skin Start: 09/09/18 12:30 Freq: Status: Active Protocol: Document 10/14/18 10:35 DCW (Rec: 10/14/18 11:07 DCW [id number]) Skin Assessment Circumference Measurement 10 cm inferior to jt line Location Right calf Measurement (Centimeters) 36.7 Comments Left = 38.8 Joint line Location Right knee Measurement (Centimeters) 41.9 Comments Left = 40.0 cm 10 cm superior to jt line Location Right thigh Measurement (Centimeters) 43.4 Comments Left = 43.8 cm PT-OP-K Range of Motion Start: 09/09/18 11:59 Freq: Status: Active Protocol: Document 10/14/18 10:35 DCW (Rec: 10/14/18 11:07 DCW [id number]) Knee Goniometric Range of Motion Knee Measured in Degrees Left Knee ROM WFL No Patient Position Supine Flexion Active (degrees) 102 Flexion Passive (degrees) 104 Extension Active (degrees) 26 Extension Passive (degrees) 20 Knee ROM Limitations Knee ROM Limitations Soft Tissue Tightness Bony Restriction Muscle Weakness Muscle Tone Pain Swelling PT-OP-M Strength Start: 09/09/18 11:59 Freq: Status: Active Protocol: Document 10/14/18 10:35 DCW (Rec: 10/14/18 11:07 DCW [id number]) Knee Strength Knee Manual Muscle Testing Left Flexion (S2) 3 Fair Extension (L3) 3- Fair- PT-OP-Q Treatments Start: 09/09/18 11:59 Freq: Status: Active Protocol: Document 10/24/18 10:40 DCW (Rec: 10/24/18 11:15 DCW [id number]) Cardio Equipment Recumbent Bicycle Duration (Minutes) 6 Resistance 2 Seat Position 8 Gym Equipment Shuttle Recovery Unilateral Squats Details Right Resistance 75# Shuttle Recovery Platform Stable Reps/Time Deep Squat Bilateral Squats Resistance 125# Shuttle Recovery Platform Stable Reps/Time Deep Squat Therapeutic Exercises Standing Exercises Squats Standing Exercise Name @ rail Side bilateral Other Exercises Resisted Fwd/Retro Ambulation Other Exercise Name Resisted Forward/Backward Stepping Resistance Blue Equipment Used T-band Resisted Side-stepping Other Exercise Name Resisted side-stepping Resistance Yellow Equipment Used T-band Manual Therapy Treatment Soft Tissue Mobilization Hamstring Body Location R Hamstring Mobilization Type Instrument Assisted Rolling Other Other Manual Treatments Manual Extension Stretch - Supine PT-OP-R Modalities Start: 09/09/18 11:59 Freq: Status: Active Protocol: Document 10/24/18 10:40 DCW (Rec: 10/24/18 11:15 DCW [id number]) Electric Stimulation Electric Stimulation Interferential Current (IFC) Body Location R knee Duration (Minutes) 15 Intensity 48 Patient Position Hooklying Combined With Heat/Cold Cold Pack PT-OP-T Assessment and Plan Start: 09/09/18 11:59 Freq: Status: Active Protocol: Document 10/24/18 10:40 DCW (Rec: 10/24/18 11:15 DCW [id number]) Physical Therapy Assessment Impairments Impairments Activity Tolerance Balance Edema Functional Activities Functional Mobility Gait Pain ROM Soft Tissue Mobility Strength Goals Five Impairment ROM Short Term Goal (STG) Left knee AROM to 5?-110? STG Duration 10/14/18 Usp Goal (LTG) Left knee AROM to 0?-120? LTG Duration 12/10/18 Four Impairment Strength Mail Technician Goal (LTG) Gross LE MMT to 4/5 LTG Duration 11/09/18 Three Impairment Joint Effusion Mail Technician Goal (LTG) Circumfrence measurements on left knee to equal right LTG Duration 11/09/18 Two Impairment Floor transfers Usp Goal (LTG) Pt to get off floor of workshop without use of objects to use UE to pull himself up LTG Duration 12/10/18 One Impairment Pt does not have appropriate home exercise program Short Term Goal (STG) Pt to be independent and compliant with an appropriate HEP STG Duration 10/10/18 Assessment Summary Assessment Pt continues to show day-to- day improvement since his most recent follow-up with his surgeon. Pt continued to walk with a substantial limp due to limited right knee extension Physical Therapy Plan Frequency and Duration Frequency of Treatment 2x/Week Duration of Treatment 12 weeks Plan of Care Start Date 09/09/18 Plan of Care End Date 12/02/18 Therapeutic Interventions Therapeutic Interventions Aquatic Therapy Balance Training Gait Training Home Exercise Program Joint Mobilizations Manual Therapy Neuromuscular Re-education Patient/Caregiver Education Self-Care/Home Management Soft Tissue Mobilization Therapeutic Activities Therapeutic Exercises Modalities Cold Pack/Ice Massage Electric Stimulation Hot Packs Ultrasound Next Visit Focus/Plan Next Note Type Treatment Note Next Visit Plan Continued focus on extension flexibility and decreasing hamstring contracture.
--- NOTE | 2018-10-28 11:15 | PT.OTN ---
Current Diagnoses Bilateral primary osteoarthritis of knee (10/28/18) Aftercare following joint replacement surgery (10/28/18) Presence of right artificial knee joint (10/28/18) Physical Therapy Treatment Note PT-OP-A Visit Information Start: 09/09/18 11:59 Freq: Status: Active Protocol: Document 10/28/18 10:50 DCW (Rec: 10/28/18 11:15 DCW [id number]) Out-Patient Physical Therapy Visit Information Visit Information Visit Type Treatment Note Visit Note 2019 visit #26 Pt arrived 10 minutes late Visit Start Time 10:50 Visit Stop Time 11:25 Total Visit Minutes 35 Visit Number 11/11 Evaluation Information Evaluation Date 09/09/18 PT-OP-B Current Condition Start: 09/09/18 11:59 Freq: Status: Active Protocol: Document 09/09/18 10:30 DCW (Rec: 09/09/18 12:30 DCW [id number]) Current Condition History of Current Condition Onset Date 09/06/18 Current Complaints Right knee pain, weakness, stiffness, difficulty with gait s/p R TKA History of Current Condition Pt is a 73 year old male well known to this clinic presenting 3 days s/p R TKA following failure of conservative treatment. Pt reports his pain varies from a 2/10 at rest to a 10/10 when trying to lift his leg into his vehicle or straighten his right knee out. Pt comes into the clinic today with increased difficulty ambulating with his rented FWW , most notably due to the fact that at its highest setting, it is still 5 inches too short . Pt reports he is currently on Oxycodone for pain control, but is looking forward to getting off of it. Prior Treatments and Tests Prior history of PT at this clinic, most recently discharged after his last visit on 08/30/18 to prepare for his TKA. Treatment Goals Patient/Caregiver Goals Return to prior level of function, especially getting up and down from the floor in his workshop. Prior Functional Status Baseline Function- ADL's Independent Baseline Function- Mobility Independent Current Functional Impairments (Reported) Functional Limitations- Mobility/Gait Ambulating step-to gait pattern using a FWW that is approximately 5 inches too short, severely antalgic PT-OP-C Subjective Start: 09/09/18 11:59 Freq: Status: Active Protocol: Document 10/28/18 10:50 DCW (Rec: 10/28/18 11:15 DCW [id number]) OP-PT Subjective Patient Comments Patient Comments Pt notes that his knee is feeling better than ever. PT-OP-F Manual Assessment Start: 09/09/18 11:59 Freq: Status: Active Protocol: Document 10/14/18 10:35 DCW (Rec: 10/14/18 11:12 DCW [id number]) Manual Assessments Soft Tissue Assessment Soft Tissue Mobility Assessment Incision healing nicely, good quad contraction, moderate- severe tone through right hamstring PT-OP-G Mobility & Gait Start: 09/09/18 12:30 Freq: Status: Active Protocol: Document 10/14/18 10:35 DCW (Rec: 10/14/18 11:07 DCW [id number]) OP Gait Assessment Assistive Devices Assistive Device Front Wheeled Walker Gait Deviations General Gait Pattern Antalgic Decreased Stride Length Decreased Feet Clearance Flexed Trunk Wide Based Gait Factors Limiting Gait Function Factors Limiting Gait Function Limited Range of Motion Pain Comments Gait Comments Pt continues to ambulate with antalgic, however, with an appropriately-sized FWW, is able to ambulate community distances without too much reliance on his upper extremities. PT-OP-J Posture/Palpation/Skin Start: 09/09/18 12:30 Freq: Status: Active Protocol: Document 10/14/18 10:35 DCW (Rec: 10/14/18 11:07 DCW [id number]) Skin Assessment Circumference Measurement 10 cm inferior to jt line Location Right calf Measurement (Centimeters) 36.7 Comments Left = 38.8 Joint line Location Right knee Measurement (Centimeters) 41.9 Comments Left = 40.0 cm 10 cm superior to jt line Location Right thigh Measurement (Centimeters) 43.4 Comments Left = 43.8 cm PT-OP-K Range of Motion Start: 09/09/18 11:59 Freq: Status: Active Protocol: Document 10/14/18 10:35 DCW (Rec: 10/14/18 11:07 DCW [id number]) Knee Goniometric Range of Motion Knee Measured in Degrees Left Knee ROM WFL No Patient Position Supine Flexion Active (degrees) 102 Flexion Passive (degrees) 104 Extension Active (degrees) 26 Extension Passive (degrees) 20 Knee ROM Limitations Knee ROM Limitations Soft Tissue Tightness Bony Restriction Muscle Weakness Muscle Tone Pain Swelling PT-OP-M Strength Start: 09/09/18 11:59 Freq: Status: Active Protocol: Document 10/14/18 10:35 DCW (Rec: 10/14/18 11:07 DCW [id number]) Knee Strength Knee Manual Muscle Testing Left Flexion (S2) 3 Fair Extension (L3) 3- Fair- PT-OP-Q Treatments Start: 09/09/18 11:59 Freq: Status: Active Protocol: Document 10/28/18 10:50 DCW (Rec: 10/28/18 11:15 DCW [id number]) Cardio Equipment Recumbent Bicycle Duration (Minutes) 5 Resistance 6 Seat Position 8 Therapeutic Exercises Standing Exercises Stair Flexion Stretch Standing Exercise Name Flexion stretch on stairs Side right Manual Therapy Treatment Soft Tissue Mobilization Hamstring Body Location R Hamstring Mobilization Type Instrument Assisted Rolling Other Other Manual Treatments Manual Extension Stretch - Supine PT-OP-R Modalities Start: 09/09/18 11:59 Freq: Status: Active Protocol: Document 10/28/18 10:50 DCW (Rec: 10/28/18 11:15 DCW [id number]) Electric Stimulation Electric Stimulation Interferential Current (IFC) Body Location R knee Duration (Minutes) 15 Intensity 56 Patient Position Hooklying Combined With Heat/Cold Cold Pack PT-OP-T Assessment and Plan Start: 09/09/18 11:59 Freq: Status: Active Protocol: Document 10/28/18 10:50 DCW (Rec: 10/28/18 11:15 DCW [id number]) Physical Therapy Assessment Impairments Impairments Activity Tolerance Balance Edema Functional Activities Functional Mobility Gait Pain ROM Soft Tissue Mobility Strength Goals Five Impairment ROM Short Term Goal (STG) Left knee AROM to 5?-110? STG Duration 10/14/18 Custodial Goal (LTG) Left knee AROM to 0?-120? LTG Duration 12/10/18 Four Impairment Strength Custodial Goal (LTG) Gross LE MMT to 10/07 LTG Duration 11/09/18 Three Impairment Joint Effusion Septic Tank Servicer Goal (LTG) Circumfrence measurements on left knee to equal right LTG Duration 11/09/18 Two Impairment Floor transfers Septic Tank Servicer Goal (LTG) Pt to get off floor of workshop without use of objects to use UE to pull himself up LTG Duration 12/10/18 One Impairment Pt does not have appropriate home exercise program Short Term Goal (STG) Pt to be independent and compliant with an appropriate HEP STG Duration 10/10/18 Assessment Summary Assessment Pt making excellent progress, ROM improved to 8-115. Pt interested in working on a general strengthening/ maintenance program. Physical Therapy Plan Frequency and Duration Frequency of Treatment 2x/Week Duration of Treatment 12 weeks Plan of Care Start Date 09/09/18 Plan of Care End Date 12/02/18 Therapeutic Interventions Therapeutic Interventions Aquatic Therapy Balance Training Gait Training Home Exercise Program Joint Mobilizations Manual Therapy Neuromuscular Re-education Patient/Caregiver Education Self-Care/Home Management Soft Tissue Mobilization Therapeutic Activities Therapeutic Exercises Modalities Cold Pack/Ice Massage Electric Stimulation Hot Packs Ultrasound Next Visit Focus/Plan Next Note Type Treatment Note Next Visit Plan Continued focus on extension flexibility and decreasing hamstring contracture.
--- NOTE | 2018-11-01 13:36 | PT.OTN ---
Current Diagnoses Bilateral primary osteoarthritis of knee (11/01/18) Aftercare following joint replacement surgery (11/01/18) Presence of right artificial knee joint (11/01/18) Physical Therapy Treatment Note PT-OP-A Visit Information Start: 09/09/18 11:59 Freq: Status: Active Protocol: Document 11/01/18 10:30 DCW (Rec: 11/01/18 13:36 DCW [id number]) Out-Patient Physical Therapy Visit Information Visit Information Visit Type Treatment Note Visit Note 2019 visit #27 Visit Start Time 10:30 Visit Stop Time 11:25 Total Visit Minutes 45 Visit Number 12/12 Evaluation Information Evaluation Date 09/09/18 PT-OP-B Current Condition Start: 09/09/18 11:59 Freq: Status: Active Protocol: Document 09/09/18 10:30 DCW (Rec: 09/09/18 12:30 DCW [id number]) Current Condition History of Current Condition Onset Date 09/06/18 Current Complaints Right knee pain, weakness, stiffness, difficulty with gait s/p R TKA History of Current Condition Pt is a 73 year old male well known to this clinic presenting 3 days s/p R TKA following failure of conservative treatment. Pt reports his pain varies from a 2/10 at rest to a 10/10 when trying to lift his leg into his vehicle or straighten his right knee out. Pt comes into the clinic today with increased difficulty ambulating with his rented FWW , most notably due to the fact that at its highest setting, it is still 5 inches too short . Pt reports he is currently on Oxycodone for pain control, but is looking forward to getting off of it. Prior Treatments and Tests Prior history of PT at this clinic, most recently discharged after his last visit on 08/30/18 to prepare for his TKA. Treatment Goals Patient/Caregiver Goals Return to prior level of function, especially getting up and down from the floor in his workshop. Prior Functional Status Baseline Function- ADL's Independent Baseline Function- Mobility Independent Current Functional Impairments (Reported) Functional Limitations- Mobility/Gait Ambulating step-to gait pattern using a FWW that is approximately 5 inches too short, severely antalgic PT-OP-C Subjective Start: 09/09/18 11:59 Freq: Status: Active Protocol: Document 11/01/18 10:30 DCW (Rec: 11/01/18 13:36 DCW [id number]) OP-PT Subjective Patient Comments Patient Comments Pt took a step back from last week, exhibits increased antalgia today. Pt notes he saw Dr Anna yesterday, and they discussed possibility of a manipulation. Pt reports she also switched him from Dexamethasone to Prednisone, which has actually caused him to increase his appitite, resulting in an increased weight, which he is very unhappy about. PT-OP-F Manual Assessment Start: 09/09/18 11:59 Freq: Status: Active Protocol: Document 10/14/18 10:35 DCW (Rec: 10/14/18 11:12 DCW [id number]) Manual Assessments Soft Tissue Assessment Soft Tissue Mobility Assessment Incision healing nicely, good quad contraction, moderate- severe tone through right hamstring PT-OP-G Mobility & Gait Start: 09/09/18 12:30 Freq: Status: Active Protocol: Document 10/14/18 10:35 DCW (Rec: 10/14/18 11:07 DCW [id number]) OP Gait Assessment Assistive Devices Assistive Device Front Wheeled Walker Gait Deviations General Gait Pattern Antalgic Decreased Stride Length Decreased Feet Clearance Flexed Trunk Wide Based Gait Factors Limiting Gait Function Factors Limiting Gait Function Limited Range of Motion Pain Comments Gait Comments Pt continues to ambulate with antalgic, however, with an appropriately-sized FWW, is able to ambulate community distances without too much reliance on his upper extremities. PT-OP-J Posture/Palpation/Skin Start: 09/09/18 12:30 Freq: Status: Active Protocol: Document 10/14/18 10:35 DCW (Rec: 10/14/18 11:07 DCW [id number]) Skin Assessment Circumference Measurement 10 cm inferior to jt line Location Right calf Measurement (Centimeters) 36.7 Comments Left = 38.8 Joint line Location Right knee Measurement (Centimeters) 41.9 Comments Left = 40.0 cm 10 cm superior to jt line Location Right thigh Measurement (Centimeters) 43.4 Comments Left = 43.8 cm PT-OP-K Range of Motion Start: 09/09/18 11:59 Freq: Status: Active Protocol: Document 10/14/18 10:35 DCW (Rec: 10/14/18 11:07 DCW [id number]) Knee Goniometric Range of Motion Knee Measured in Degrees Left Knee ROM WFL No Patient Position Supine Flexion Active (degrees) 102 Flexion Passive (degrees) 104 Extension Active (degrees) 26 Extension Passive (degrees) 20 Knee ROM Limitations Knee ROM Limitations Soft Tissue Tightness Bony Restriction Muscle Weakness Muscle Tone Pain Swelling PT-OP-M Strength Start: 09/09/18 11:59 Freq: Status: Active Protocol: Document 10/14/18 10:35 DCW (Rec: 10/14/18 11:07 DCW [id number]) Knee Strength Knee Manual Muscle Testing Left Flexion (S2) 3 Fair Extension (L3) 3- Fair- PT-OP-Q Treatments Start: 09/09/18 11:59 Freq: Status: Active Protocol: Document 11/01/18 10:30 DCW (Rec: 11/01/18 13:36 DCW [id number]) Cardio Equipment Recumbent Bicycle Duration (Minutes) 5 Resistance 6 Seat Position 7 Therapeutic Exercises Supine Exercises Hamstring Stretch Supine Exercise Name HS stretch Side right Short Arc Quad Supine Exercise Name SAQ Side right Resistance 10# Reps/Minutes x40 Straight Leg Raise Supine Exercise Name SLR Side right Resistance 10# Reps/Minutes 2x20 Standing Exercises Stair Flexion Stretch Standing Exercise Name Flexion stretch on stairs Side right Manual Therapy Treatment Soft Tissue Mobilization Hamstring Body Location R Hamstring Mobilization Type Instrument Assisted Rolling Other Other Manual Treatments Manual Extension Stretch - Supine PT-OP-R Modalities Start: 09/09/18 11:59 Freq: Status: Active Protocol: Document 11/01/18 10:30 DCW (Rec: 11/01/18 13:36 DCW [id number]) Electric Stimulation Electric Stimulation Interferential Current (IFC) Body Location R knee Duration (Minutes) 15 Intensity 46 Patient Position Hooklying Combined With Heat/Cold Cold Pack PT-OP-T Assessment and Plan Start: 09/09/18 11:59 Freq: Status: Active Protocol: Document 11/01/18 10:30 DCW (Rec: 11/01/18 13:36 DCW [id number]) Physical Therapy Assessment Impairments Impairments Activity Tolerance Balance Edema Functional Activities Functional Mobility Gait Pain ROM Soft Tissue Mobility Strength Goals Five Impairment ROM Short Term Goal (STG) Left knee AROM to 5?-110? STG Duration 10/14/18 Usp Goal (LTG) Left knee AROM to 0?-120? LTG Duration 12/10/18 Four Impairment Strength Parts Picker Goal (LTG) Gross LE MMT to 4/5 LTG Duration 11/09/18 Three Impairment Joint Effusion Parts Picker Goal (LTG) Circumfrence measurements on left knee to equal right LTG Duration 11/09/18 Two Impairment Floor transfers Usp Goal (LTG) Pt to get off floor of workshop without use of objects to use UE to pull himself up LTG Duration 12/10/18 One Impairment Pt does not have appropriate home exercise program Short Term Goal (STG) Pt to be independent and compliant with an appropriate HEP STG Duration 10/10/18 Assessment Summary Assessment Pt did show increased pain and decreased ROM today, admits that he has missed taking his anti-inflammatory meds a few times, which is always followed by increased pain and difficulty. Physical Therapy Plan Frequency and Duration Frequency of Treatment 2x/Week Duration of Treatment 12 weeks Plan of Care Start Date 09/09/18 Plan of Care End Date 12/02/18 Therapeutic Interventions Therapeutic Interventions Aquatic Therapy Balance Training Gait Training Home Exercise Program Joint Mobilizations Manual Therapy Neuromuscular Re-education Patient/Caregiver Education Self-Care/Home Management Soft Tissue Mobilization Therapeutic Activities Therapeutic Exercises Modalities Cold Pack/Ice Massage Electric Stimulation Hot Packs Ultrasound Next Visit Focus/Plan Next Note Type Treatment Note Next Visit Plan Continued focus on extension flexibility and decreasing hamstring contracture.
--- NOTE | 2018-11-04 11:12 | PT.OTN ---
Current Diagnoses Bilateral primary osteoarthritis of knee (11/04/18) Aftercare following joint replacement surgery (11/04/18) Presence of right artificial knee joint (11/04/18) Physical Therapy Treatment Note PT-OP-A Visit Information Start: 09/09/18 11:59 Freq: Status: Active Protocol: Document 11/04/18 10:30 DCW (Rec: 11/04/18 11:12 DCW [id number]) Out-Patient Physical Therapy Visit Information Visit Information Visit Type Treatment Note Visit Note 2019 visit #27 Visit Start Time 10:30 Visit Stop Time 11:25 Total Visit Minutes 55 Visit Number 01/11 Evaluation Information Evaluation Date 09/09/18 PT-OP-B Current Condition Start: 09/09/18 11:59 Freq: Status: Active Protocol: Document 09/09/18 10:30 DCW (Rec: 09/09/18 12:30 DCW [id number]) Current Condition History of Current Condition Onset Date 09/06/18 Current Complaints Right knee pain, weakness, stiffness, difficulty with gait s/p R TKA History of Current Condition Pt is a 73 year old male well known to this clinic presenting 3 days s/p R TKA following failure of conservative treatment. Pt reports his pain varies from a 2/10 at rest to a 10/10 when trying to lift his leg into his vehicle or straighten his right knee out. Pt comes into the clinic today with increased difficulty ambulating with his rented FWW , most notably due to the fact that at its highest setting, it is still 5 inches too short . Pt reports he is currently on Oxycodone for pain control, but is looking forward to getting off of it. Prior Treatments and Tests Prior history of PT at this clinic, most recently discharged after his last visit on 08/30/18 to prepare for his TKA. Treatment Goals Patient/Caregiver Goals Return to prior level of function, especially getting up and down from the floor in his workshop. Prior Functional Status Baseline Function- ADL's Independent Baseline Function- Mobility Independent Current Functional Impairments (Reported) Functional Limitations- Mobility/Gait Ambulating step-to gait pattern using a FWW that is approximately 5 inches too short, severely antalgic PT-OP-C Subjective Start: 09/09/18 11:59 Freq: Status: Active Protocol: Document 11/04/18 10:30 DCW (Rec: 11/04/18 11:12 DCW [id number]) OP-PT Subjective Patient Comments Patient Comments Pt reports he spent some time yesterday using his tractor, which takes a lot of effort from his legs, and also did a lot of walking without an increase in discomfort. PT-OP-F Manual Assessment Start: 09/09/18 11:59 Freq: Status: Active Protocol: Document 10/14/18 10:35 DCW (Rec: 10/14/18 11:12 DCW [id number]) Manual Assessments Soft Tissue Assessment Soft Tissue Mobility Assessment Incision healing nicely, good quad contraction, moderate- severe tone through right hamstring PT-OP-G Mobility & Gait Start: 09/09/18 12:30 Freq: Status: Active Protocol: Document 10/14/18 10:35 DCW (Rec: 10/14/18 11:07 DCW [id number]) OP Gait Assessment Assistive Devices Assistive Device Front Wheeled Walker Gait Deviations General Gait Pattern Antalgic Decreased Stride Length Decreased Feet Clearance Flexed Trunk Wide Based Gait Factors Limiting Gait Function Factors Limiting Gait Function Limited Range of Motion Pain Comments Gait Comments Pt continues to ambulate with antalgic, however, with an appropriately-sized FWW, is able to ambulate community distances without too much reliance on his upper extremities. PT-OP-J Posture/Palpation/Skin Start: 09/09/18 12:30 Freq: Status: Active Protocol: Document 10/14/18 10:35 DCW (Rec: 10/14/18 11:07 DCW [id number]) Skin Assessment Circumference Measurement 10 cm inferior to jt line Location Right calf Measurement (Centimeters) 36.7 Comments Left = 38.8 Joint line Location Right knee Measurement (Centimeters) 41.9 Comments Left = 40.0 cm 10 cm superior to jt line Location Right thigh Measurement (Centimeters) 43.4 Comments Left = 43.8 cm PT-OP-K Range of Motion Start: 09/09/18 11:59 Freq: Status: Active Protocol: Document 10/14/18 10:35 DCW (Rec: 10/14/18 11:07 DCW [id number]) Knee Goniometric Range of Motion Knee Measured in Degrees Left Knee ROM WFL No Patient Position Supine Flexion Active (degrees) 102 Flexion Passive (degrees) 104 Extension Active (degrees) 26 Extension Passive (degrees) 20 Knee ROM Limitations Knee ROM Limitations Soft Tissue Tightness Bony Restriction Muscle Weakness Muscle Tone Pain Swelling PT-OP-M Strength Start: 09/09/18 11:59 Freq: Status: Active Protocol: Document 10/14/18 10:35 DCW (Rec: 10/14/18 11:07 DCW [id number]) Knee Strength Knee Manual Muscle Testing Left Flexion (S2) 3 Fair Extension (L3) 3- Fair- PT-OP-Q Treatments Start: 09/09/18 11:59 Freq: Status: Active Protocol: Document 11/04/18 10:30 DCW (Rec: 11/04/18 11:12 DCW [id number]) Cardio Equipment Recumbent Bicycle Duration (Minutes) 6 Resistance 6 Seat Position 7 Gym Equipment Shuttle Recovery Unilateral Squats Details Right Resistance 75# Shuttle Recovery Platform Stable Reps/Time Deep Squat Bilateral Squats Resistance 125# Shuttle Recovery Platform Stable Reps/Time Deep Squat Therapeutic Exercises Supine Exercises Hamstring Stretch Supine Exercise Name HS stretch Side right Short Arc Quad Supine Exercise Name SAQ Side right Resistance 10# Reps/Minutes x40 Straight Leg Raise Supine Exercise Name SLR Side right Resistance 10# Reps/Minutes 2x20 Prone Exercises Prone Hang Prone Exercise Name Prone Hang Resistance 10# Reps/Minutes 3' Standing Exercises Stair Flexion Stretch Standing Exercise Name Flexion stretch on stairs Side right Manual Therapy Treatment Soft Tissue Mobilization Hamstring Body Location R Hamstring Mobilization Type Instrument Assisted Rolling Other Other Manual Treatments Manual Extension Stretch - Supine PT-OP-R Modalities Start: 09/09/18 11:59 Freq: Status: Active Protocol: Document 11/04/18 10:30 DCW (Rec: 11/04/18 11:12 DCW [id number]) Electric Stimulation Electric Stimulation Interferential Current (IFC) Body Location R knee Duration (Minutes) 15 Intensity 45 Patient Position Hooklying Combined With Heat/Cold Cold Pack PT-OP-T Assessment and Plan Start: 09/09/18 11:59 Freq: Status: Active Protocol: Document 11/04/18 10:30 DCW (Rec: 11/04/18 11:12 DCW [id number]) Physical Therapy Assessment Impairments Impairments Activity Tolerance Balance Edema Functional Activities Functional Mobility Gait Pain ROM Soft Tissue Mobility Strength Goals Five Impairment ROM Short Term Goal (STG) Left knee AROM to 5?-110? STG Duration 10/14/18 Residential Goal (LTG) Left knee AROM to 0?-120? LTG Duration 12/10/18 Four Impairment Strength School Nurse Goal (LTG) Gross LE MMT to 10/07 LTG Duration 11/09/18 Three Impairment Joint Effusion Residential Goal (LTG) Circumfrence measurements on left knee to equal right LTG Duration 11/09/18 Two Impairment Floor transfers Residential Goal (LTG) Pt to get off floor of workshop without use of objects to use UE to pull himself up LTG Duration 12/10/18 One Impairment Pt does not have appropriate home exercise program Short Term Goal (STG) Pt to be independent and compliant with an appropriate HEP STG Duration 10/10/18 Assessment Summary Assessment Pt increasing his tolerance to activity outside of the clinc , but continues to demonstrate minimal progress with his ROM Physical Therapy Plan Frequency and Duration Frequency of Treatment 2x/Week Duration of Treatment 12 weeks Plan of Care Start Date 09/09/18 Plan of Care End Date 12/02/18 Therapeutic Interventions Therapeutic Interventions Aquatic Therapy Balance Training Gait Training Home Exercise Program Joint Mobilizations Manual Therapy Neuromuscular Re-education Patient/Caregiver Education Self-Care/Home Management Soft Tissue Mobilization Therapeutic Activities Therapeutic Exercises Modalities Cold Pack/Ice Massage Electric Stimulation Hot Packs Ultrasound Next Visit Focus/Plan Next Note Type Treatment Note Next Visit Plan Continued focus on extension flexibility and decreasing hamstring contracture.
--- NOTE | 2018-11-16 15:14 | PT.OTN ---
Current Diagnoses Bilateral primary osteoarthritis of knee (11/16/18) Aftercare following joint replacement surgery (11/16/18) Presence of right artificial knee joint (11/16/18) Physical Therapy Treatment Note PT-OP-A Visit Information Start: 09/09/18 11:59 Freq: Status: Active Protocol: Document 11/16/18 14:30 DCW (Rec: 11/16/18 15:14 DCW [id number]) Out-Patient Physical Therapy Visit Information Visit Information Visit Type Treatment Note Visit Note 2019 visit #29 Visit Start Time 14:30 Visit Stop Time 15:25 Total Visit Minutes 55 Visit Number 02/11 Evaluation Information Evaluation Date 09/09/18 PT-OP-B Current Condition Start: 09/09/18 11:59 Freq: Status: Active Protocol: Document 09/09/18 10:30 DCW (Rec: 09/09/18 12:30 DCW [id number]) Current Condition History of Current Condition Onset Date 09/06/18 Current Complaints Right knee pain, weakness, stiffness, difficulty with gait s/p R TKA History of Current Condition Pt is a 73 year old male well known to this clinic presenting 3 days s/p R TKA following failure of conservative treatment. Pt reports his pain varies from a 2/10 at rest to a 10/10 when trying to lift his leg into his vehicle or straighten his right knee out. Pt comes into the clinic today with increased difficulty ambulating with his rented FWW , most notably due to the fact that at its highest setting, it is still 5 inches too short . Pt reports he is currently on Oxycodone for pain control, but is looking forward to getting off of it. Prior Treatments and Tests Prior history of PT at this clinic, most recently discharged after his last visit on 08/30/18 to prepare for his TKA. Treatment Goals Patient/Caregiver Goals Return to prior level of function, especially getting up and down from the floor in his workshop. Prior Functional Status Baseline Function- ADL's Independent Baseline Function- Mobility Independent Current Functional Impairments (Reported) Functional Limitations- Mobility/Gait Ambulating step-to gait pattern using a FWW that is approximately 5 inches too short, severely antalgic PT-OP-C Subjective Start: 09/09/18 11:59 Freq: Status: Active Protocol: Document 11/16/18 14:30 DCW (Rec: 11/16/18 15:14 DCW [id number]) OP-PT Subjective Patient Comments Patient Comments While pt was traveling last week, he reports that he forgot all his medication in a hotel room, so he was without it for three days until it was shipped back. Pt reports that he did pretty well without his Prednisone, but by the third day, it was noticeably more sore. PT-OP-F Manual Assessment Start: 09/09/18 11:59 Freq: Status: Active Protocol: Document 10/14/18 10:35 DCW (Rec: 10/14/18 11:12 DCW [id number]) Manual Assessments Soft Tissue Assessment Soft Tissue Mobility Assessment Incision healing nicely, good quad contraction, moderate- severe tone through right hamstring PT-OP-G Mobility & Gait Start: 09/09/18 12:30 Freq: Status: Active Protocol: Document 10/14/18 10:35 DCW (Rec: 10/14/18 11:07 DCW [id number]) OP Gait Assessment Assistive Devices Assistive Device Front Wheeled Walker Gait Deviations General Gait Pattern Antalgic Decreased Stride Length Decreased Feet Clearance Flexed Trunk Wide Based Gait Factors Limiting Gait Function Factors Limiting Gait Function Limited Range of Motion Pain Comments Gait Comments Pt continues to ambulate with antalgic, however, with an appropriately-sized FWW, is able to ambulate community distances without too much reliance on his upper extremities. PT-OP-J Posture/Palpation/Skin Start: 09/09/18 12:30 Freq: Status: Active Protocol: Document 10/14/18 10:35 DCW (Rec: 10/14/18 11:07 DCW [id number]) Skin Assessment Circumference Measurement 10 cm inferior to jt line Location Right calf Measurement (Centimeters) 36.7 Comments Left = 38.8 Joint line Location Right knee Measurement (Centimeters) 41.9 Comments Left = 40.0 cm 10 cm superior to jt line Location Right thigh Measurement (Centimeters) 43.4 Comments Left = 43.8 cm PT-OP-K Range of Motion Start: 09/09/18 11:59 Freq: Status: Active Protocol: Document 10/14/18 10:35 DCW (Rec: 10/14/18 11:07 DCW [id number]) Knee Goniometric Range of Motion Knee Measured in Degrees Left Knee ROM WFL No Patient Position Supine Flexion Active (degrees) 102 Flexion Passive (degrees) 104 Extension Active (degrees) 26 Extension Passive (degrees) 20 Knee ROM Limitations Knee ROM Limitations Soft Tissue Tightness Bony Restriction Muscle Weakness Muscle Tone Pain Swelling PT-OP-M Strength Start: 09/09/18 11:59 Freq: Status: Active Protocol: Document 10/14/18 10:35 DCW (Rec: 10/14/18 11:07 DCW [id number]) Knee Strength Knee Manual Muscle Testing Left Flexion (S2) 3 Fair Extension (L3) 3- Fair- PT-OP-Q Treatments Start: 09/09/18 11:59 Freq: Status: Active Protocol: Document 11/16/18 14:30 DCW (Rec: 11/16/18 15:14 DCW [id number]) Cardio Equipment Recumbent Bicycle Duration (Minutes) 6 Resistance 6 Seat Position 7 Gym Equipment Shuttle Recovery Unilateral Squats Details Right Resistance 75# Shuttle Recovery Platform Stable Reps/Time Deep Squat Bilateral Squats Resistance 125# Shuttle Recovery Platform Stable Reps/Time Deep Squat Shuttle Balance Red Details Wide MICHAEL, Staggered Stance Therapeutic Exercises Supine Exercises Hamstring Stretch Supine Exercise Name HS stretch Side right Prone Exercises Prone Hang Prone Exercise Name Prone Hang Resistance 20# Reps/Minutes 3' Standing Exercises Stair Flexion Stretch Standing Exercise Name Flexion stretch on stairs Side right Manual Therapy Treatment Other Other Manual Treatments Manual Extension Stretch - Supine PT-OP-R Modalities Start: 09/09/18 11:59 Freq: Status: Active Protocol: Document 11/16/18 14:30 DCW (Rec: 11/16/18 15:14 DCW [id number]) Electric Stimulation Electric Stimulation Interferential Current (IFC) Body Location R knee Duration (Minutes) 15 Intensity 44 Patient Position Hooklying Combined With Heat/Cold Cold Pack PT-OP-T Assessment and Plan Start: 09/09/18 11:59 Freq: Status: Active Protocol: Document 11/16/18 14:30 DCW (Rec: 11/16/18 15:14 DCW [id number]) Physical Therapy Assessment Impairments Impairments Activity Tolerance Balance Edema Functional Activities Functional Mobility Gait Pain ROM Soft Tissue Mobility Strength Goals Five Impairment ROM Short Term Goal (STG) Left knee AROM to 5?-110? STG Duration 10/14/18 Assisted Goal (LTG) Left knee AROM to 0?-120? LTG Duration 12/10/18 Four Impairment Strength Compliance Engineer Products Goal (LTG) Gross LE MMT to 4/5 LTG Duration 11/09/18 Three Impairment Joint Effusion Assisted Goal (LTG) Circumfrence measurements on left knee to equal right LTG Duration 11/09/18 Two Impairment Floor transfers Compliance Engineer Products Goal (LTG) Pt to get off floor of workshop without use of objects to use UE to pull himself up LTG Duration 12/10/18 One Impairment Pt does not have appropriate home exercise program Short Term Goal (STG) Pt to be independent and compliant with an appropriate HEP STG Duration 10/10/18 Assessment Summary Assessment Pt continues to display noticeable limp with ambulation, however it is improving, and his active extension today was measured at 10 degrees, and flexion measured at 120 degrees. Physical Therapy Plan Frequency and Duration Frequency of Treatment 2x/Week Duration of Treatment 12 weeks Plan of Care Start Date 09/09/18 Plan of Care End Date 12/02/18 Therapeutic Interventions Therapeutic Interventions Aquatic Therapy Balance Training Gait Training Home Exercise Program Joint Mobilizations Manual Therapy Neuromuscular Re-education Patient/Caregiver Education Self-Care/Home Management Soft Tissue Mobilization Therapeutic Activities Therapeutic Exercises Modalities Cold Pack/Ice Massage Electric Stimulation Hot Packs Ultrasound Next Visit Focus/Plan Next Note Type Treatment Note Next Visit Plan Continued focus on extension flexibility and decreasing hamstring contracture.
--- NOTE | 2018-11-18 15:15 | PT.OTN ---
Current Diagnoses Bilateral primary osteoarthritis of knee (11/18/18) Aftercare following joint replacement surgery (11/18/18) Presence of right artificial knee joint (11/18/18) Physical Therapy Treatment Note PT-OP-A Visit Information Start: 09/09/18 11:59 Freq: Status: Active Protocol: Document 11/18/18 14:30 DCW (Rec: 11/18/18 15:15 DCW [id number]) Out-Patient Physical Therapy Visit Information Visit Information Visit Type Treatment Note Visit Note 2019 visit #30 Visit Start Time 14:30 Visit Stop Time 15:25 Total Visit Minutes 55 Visit Number 03/14 Evaluation Information Evaluation Date 09/09/18 PT-OP-B Current Condition Start: 09/09/18 11:59 Freq: Status: Active Protocol: Document 09/09/18 10:30 DCW (Rec: 09/09/18 12:30 DCW [id number]) Current Condition History of Current Condition Onset Date 09/06/18 Current Complaints Right knee pain, weakness, stiffness, difficulty with gait s/p R TKA History of Current Condition Pt is a 73 year old male well known to this clinic presenting 3 days s/p R TKA following failure of conservative treatment. Pt reports his pain varies from a 2/10 at rest to a 10/10 when trying to lift his leg into his vehicle or straighten his right knee out. Pt comes into the clinic today with increased difficulty ambulating with his rented FWW , most notably due to the fact that at its highest setting, it is still 5 inches too short . Pt reports he is currently on Oxycodone for pain control, but is looking forward to getting off of it. Prior Treatments and Tests Prior history of PT at this clinic, most recently discharged after his last visit on 08/30/18 to prepare for his TKA. Treatment Goals Patient/Caregiver Goals Return to prior level of function, especially getting up and down from the floor in his workshop. Prior Functional Status Baseline Function- ADL's Independent Baseline Function- Mobility Independent Current Functional Impairments (Reported) Functional Limitations- Mobility/Gait Ambulating step-to gait pattern using a FWW that is approximately 5 inches too short, severely antalgic PT-OP-C Subjective Start: 09/09/18 11:59 Freq: Status: Active Protocol: Document 11/18/18 14:30 DCW (Rec: 11/18/18 15:15 DCW [id number]) OP-PT Subjective Patient Comments Patient Comments Pt notes that he is still pretty sore following his appointment Wednesday. PT-OP-F Manual Assessment Start: 09/09/18 11:59 Freq: Status: Active Protocol: Document 10/14/18 10:35 DCW (Rec: 10/14/18 11:12 DCW [id number]) Manual Assessments Soft Tissue Assessment Soft Tissue Mobility Assessment Incision healing nicely, good quad contraction, moderate- severe tone through right hamstring PT-OP-G Mobility & Gait Start: 09/09/18 12:30 Freq: Status: Active Protocol: Document 10/14/18 10:35 DCW (Rec: 10/14/18 11:07 DCW [id number]) OP Gait Assessment Assistive Devices Assistive Device Front Wheeled Walker Gait Deviations General Gait Pattern Antalgic Decreased Stride Length Decreased Feet Clearance Flexed Trunk Wide Based Gait Factors Limiting Gait Function Factors Limiting Gait Function Limited Range of Motion Pain Comments Gait Comments Pt continues to ambulate with antalgic, however, with an appropriately-sized FWW, is able to ambulate community distances without too much reliance on his upper extremities. PT-OP-J Posture/Palpation/Skin Start: 09/09/18 12:30 Freq: Status: Active Protocol: Document 10/14/18 10:35 DCW (Rec: 10/14/18 11:07 DCW [id number]) Skin Assessment Circumference Measurement 10 cm inferior to jt line Location Right calf Measurement (Centimeters) 36.7 Comments Left = 38.8 Joint line Location Right knee Measurement (Centimeters) 41.9 Comments Left = 40.0 cm 10 cm superior to jt line Location Right thigh Measurement (Centimeters) 43.4 Comments Left = 43.8 cm PT-OP-K Range of Motion Start: 09/09/18 11:59 Freq: Status: Active Protocol: Document 10/14/18 10:35 DCW (Rec: 10/14/18 11:07 DCW [id number]) Knee Goniometric Range of Motion Knee Measured in Degrees Left Knee ROM WFL No Patient Position Supine Flexion Active (degrees) 102 Flexion Passive (degrees) 104 Extension Active (degrees) 26 Extension Passive (degrees) 20 Knee ROM Limitations Knee ROM Limitations Soft Tissue Tightness Bony Restriction Muscle Weakness Muscle Tone Pain Swelling PT-OP-M Strength Start: 09/09/18 11:59 Freq: Status: Active Protocol: Document 10/14/18 10:35 DCW (Rec: 10/14/18 11:07 DCW [id number]) Knee Strength Knee Manual Muscle Testing Left Flexion (S2) 3 Fair Extension (L3) 3- Fair- PT-OP-Q Treatments Start: 09/09/18 11:59 Freq: Status: Active Protocol: Document 11/18/18 14:30 DCW (Rec: 11/18/18 15:15 DCW [id number]) Cardio Equipment Recumbent Bicycle Duration (Minutes) 6 Resistance 6 Seat Position 7 Gym Equipment Shuttle Recovery Unilateral Squats Details Right Resistance 75# Shuttle Recovery Platform Stable Reps/Time Deep Squat Bilateral Squats Resistance 125# Shuttle Recovery Platform Stable Reps/Time Deep Squat Therapeutic Exercises Supine Exercises Hamstring Stretch Supine Exercise Name HS stretch Side right Standing Exercises Sit<->Stand Standing Exercise Name Single Leg StS Side right Step-ups Standing Exercise Name Step-ups Side right Equipment Used 6 Stair Flexion Stretch Standing Exercise Name Flexion stretch on stairs Side right Manual Therapy Treatment Other Other Manual Treatments Manual Extension Stretch - Supine PT-OP-R Modalities Start: 09/09/18 11:59 Freq: Status: Active Protocol: Document 11/18/18 14:30 DCW (Rec: 11/18/18 15:15 DCW [id number]) Electric Stimulation Electric Stimulation Interferential Current (IFC) Body Location R knee Duration (Minutes) 15 Intensity 49 Patient Position Hooklying Combined With Heat/Cold Cold Pack PT-OP-T Assessment and Plan Start: 09/09/18 11:59 Freq: Status: Active Protocol: Document 11/18/18 14:30 DCW (Rec: 11/18/18 15:15 DCW [id number]) Physical Therapy Assessment Impairments Impairments Activity Tolerance Balance Edema Functional Activities Functional Mobility Gait Pain ROM Soft Tissue Mobility Strength Goals Five Impairment ROM Short Term Goal (STG) Left knee AROM to 5?-110? STG Duration 10/14/18 Corporate Accounting Manager Goal (LTG) Left knee AROM to 0?-120? LTG Duration 12/10/18 Four Impairment Strength Senior Living Goal (LTG) Gross LE MMT to 45 LTG Duration 11/09/18 Three Impairment Joint Effusion Corporate Accounting Manager Goal (LTG) Circumfrence measurements on left knee to equal right LTG Duration 11/09/18 Two Impairment Floor transfers Corporate Accounting Manager Goal (LTG) Pt to get off floor of workshop without use of objects to use UE to pull himself up LTG Duration 12/10/18 One Impairment Pt does not have appropriate home exercise program Short Term Goal (STG) Pt to be independent and compliant with an appropriate HEP STG Duration 10/10/18 Assessment Summary Assessment Decreased limp today, pt notes he is trying to put more though into his gait pattern to improve heel strike. Physical Therapy Plan Frequency and Duration Frequency of Treatment 2x/Week Duration of Treatment 12 weeks Plan of Care Start Date 09/09/18 Plan of Care End Date 12/02/18 Therapeutic Interventions Therapeutic Interventions Aquatic Therapy Balance Training Gait Training Home Exercise Program Joint Mobilizations Manual Therapy Neuromuscular Re-education Patient/Caregiver Education Self-Care/Home Management Soft Tissue Mobilization Therapeutic Activities Therapeutic Exercises Modalities Cold Pack/Ice Massage Electric Stimulation Hot Packs Ultrasound Next Visit Focus/Plan Next Note Type Treatment Note Next Visit Plan Continued focus on extension flexibility and decreasing hamstring contracture.
--- NOTE | 2018-11-21 10:27 | PT.OTN ---
Current Diagnoses Bilateral primary osteoarthritis of knee (11/21/18) Aftercare following joint replacement surgery (11/21/18) Presence of right artificial knee joint (11/21/18) Physical Therapy Treatment Note PT-OP-A Visit Information Start: 09/09/18 11:59 Freq: Status: Active Protocol: Document 11/21/18 09:45 DCW (Rec: 11/21/18 10:27 DCW [id number]) Out-Patient Physical Therapy Visit Information Visit Information Visit Type Progress Note Visit Note 2019 visit #31 Visit Start Time 09:45 Visit Stop Time 10:40 Total Visit Minutes 55 Visit Number 04/13 Evaluation Information Evaluation Date 09/09/18 PT-OP-B Current Condition Start: 09/09/18 11:59 Freq: Status: Active Protocol: Document 09/09/18 10:30 DCW (Rec: 09/09/18 12:30 DCW [id number]) Current Condition History of Current Condition Onset Date 09/06/18 Current Complaints Right knee pain, weakness, stiffness, difficulty with gait s/p R TKA History of Current Condition Pt is a 73 year old male well known to this clinic presenting 3 days s/p R TKA following failure of conservative treatment. Pt reports his pain varies from a 2/10 at rest to a 10/10 when trying to lift his leg into his vehicle or straighten his right knee out. Pt comes into the clinic today with increased difficulty ambulating with his rented FWW , most notably due to the fact that at its highest setting, it is still 5 inches too short . Pt reports he is currently on Oxycodone for pain control, but is looking forward to getting off of it. Prior Treatments and Tests Prior history of PT at this clinic, most recently discharged after his last visit on 08/30/18 to prepare for his TKA. Treatment Goals Patient/Caregiver Goals Return to prior level of function, especially getting up and down from the floor in his workshop. Prior Functional Status Baseline Function- ADL's Independent Baseline Function- Mobility Independent Current Functional Impairments (Reported) Functional Limitations- Mobility/Gait Ambulating step-to gait pattern using a FWW that is approximately 5 inches too short, severely antalgic PT-OP-C Subjective Start: 09/09/18 11:59 Freq: Status: Active Protocol: Document 11/21/18 09:45 DCW (Rec: 11/21/18 10:27 DCW [id number]) OP-PT Subjective Patient Comments Patient Comments Pt reports that following a long (14 hour) day in his workshop on Wednesday, he is very sore, and worried about his upcoming trip to [place]. PT-OP-F Manual Assessment Start: 09/09/18 11:59 Freq: Status: Active Protocol: Document 10/14/18 10:35 DCW (Rec: 10/14/18 11:12 DCW [id number]) Manual Assessments Soft Tissue Assessment Soft Tissue Mobility Assessment Incision healing nicely, good quad contraction, moderate- severe tone through right hamstring PT-OP-G Mobility & Gait Start: 09/09/18 12:30 Freq: Status: Active Protocol: Document 10/14/18 10:35 DCW (Rec: 10/14/18 11:07 DCW [id number]) OP Gait Assessment Assistive Devices Assistive Device Front Wheeled Walker Gait Deviations General Gait Pattern Antalgic Decreased Stride Length Decreased Feet Clearance Flexed Trunk Wide Based Gait Factors Limiting Gait Function Factors Limiting Gait Function Limited Range of Motion Pain Comments Gait Comments Pt continues to ambulate with antalgic, however, with an appropriately-sized FWW, is able to ambulate community distances without too much reliance on his upper extremities. PT-OP-J Posture/Palpation/Skin Start: 09/09/18 12:30 Freq: Status: Active Protocol: Document 10/14/18 10:35 DCW (Rec: 10/14/18 11:07 DCW [id number]) Skin Assessment Circumference Measurement 10 cm inferior to jt line Location Right calf Measurement (Centimeters) 36.7 Comments Left = 38.8 Joint line Location Right knee Measurement (Centimeters) 41.9 Comments Left = 40.0 cm 10 cm superior to jt line Location Right thigh Measurement (Centimeters) 43.4 Comments Left = 43.8 cm PT-OP-K Range of Motion Start: 09/09/18 11:59 Freq: Status: Active Protocol: Document 10/14/18 10:35 DCW (Rec: 10/14/18 11:07 DCW [id number]) Knee Goniometric Range of Motion Knee Measured in Degrees Left Knee ROM WFL No Patient Position Supine Flexion Active (degrees) 102 Flexion Passive (degrees) 104 Extension Active (degrees) 26 Extension Passive (degrees) 20 Knee ROM Limitations Knee ROM Limitations Soft Tissue Tightness Bony Restriction Muscle Weakness Muscle Tone Pain Swelling PT-OP-M Strength Start: 09/09/18 11:59 Freq: Status: Active Protocol: Document 10/14/18 10:35 DCW (Rec: 10/14/18 11:07 DCW [id number]) Knee Strength Knee Manual Muscle Testing Left Flexion (S2) 3 Fair Extension (L3) 3- Fair- PT-OP-Q Treatments Start: 09/09/18 11:59 Freq: Status: Active Protocol: Document 11/21/18 09:45 DCW (Rec: 11/21/18 10:27 DCW [id number]) Cardio Equipment Recumbent Bicycle Duration (Minutes) 6 Resistance 6 Seat Position 7 Gym Equipment Shuttle Recovery Unilateral Squats Details Right Resistance 75# Shuttle Recovery Platform Stable Reps/Time Deep Squat Bilateral Squats Resistance 125# Shuttle Recovery Platform Stable Reps/Time Deep Squat Therapeutic Exercises Supine Exercises Single KtC Supine Exercise Name Single KtC Side right Hamstring Stretch Supine Exercise Name HS stretch Side right Manual Therapy Treatment Soft Tissue Mobilization Hamstring Body Location R Hamstring Mobilization Type Instrument Assisted Rolling Other Other Manual Treatments Manual Extension Stretch - Supine PT-OP-R Modalities Start: 09/09/18 11:59 Freq: Status: Active Protocol: Document 11/21/18 09:45 DCW (Rec: 11/21/18 10:27 DCW [id number]) Electric Stimulation Electric Stimulation Interferential Current (IFC) Body Location R knee Duration (Minutes) 15 Intensity 46 Patient Position Hooklying Combined With Heat/Cold Cold Pack PT-OP-T Assessment and Plan Start: 09/09/18 11:59 Freq: Status: Active Protocol: Document 11/21/18 09:45 DCW (Rec: 11/21/18 10:27 DCW [id number]) Physical Therapy Assessment Impairments Impairments Activity Tolerance Balance Edema Functional Activities Functional Mobility Gait Pain ROM Soft Tissue Mobility Strength Goals Five Impairment ROM Short Term Goal (STG) Left knee AROM to 5?-110? STG Duration 10/14/18 Farm Operator Goal (LTG) Left knee AROM to 0?-120? LTG Duration 12/10/18 Four Impairment Strength Farm Operator Goal (LTG) Gross LE MMT to 4/5 LTG Duration 11/09/18 Three Impairment Joint Effusion Snf Goal (LTG) Circumfrence measurements on left knee to equal right LTG Duration 11/09/18 Two Impairment Floor transfers Snf Goal (LTG) Pt to get off floor of workshop without use of objects to use UE to pull himself up LTG Duration 12/10/18 One Impairment Pt does not have appropriate home exercise program Short Term Goal (STG) Pt to be independent and compliant with an appropriate HEP STG Duration 10/10/18 Assessment Summary Assessment Pt clearly having increased difficulty today, limited ROM and increased antalgic gait. Pt did note he has an infusion today for his arthritis, and is hopeful this just means that, since he is at the end of his cycle, he will improve with his Flexomav infusion today. Pt had increase muscle spasm as well. Pt only has one remaining appointment before he leaves the country for three weeks. Physical Therapy Plan Frequency and Duration Frequency of Treatment 2x/Week Duration of Treatment 12 weeks Plan of Care Start Date 09/09/18 Plan of Care End Date 12/02/18 Therapeutic Interventions Therapeutic Interventions Aquatic Therapy Balance Training Gait Training Home Exercise Program Joint Mobilizations Manual Therapy Neuromuscular Re-education Patient/Caregiver Education Self-Care/Home Management Soft Tissue Mobilization Therapeutic Activities Therapeutic Exercises Modalities Cold Pack/Ice Massage Electric Stimulation Hot Packs Ultrasound Next Visit Focus/Plan Next Note Type Treatment Note Next Visit Plan Continued focus on extension flexibility and decreasing hamstring contracture.
--- NOTE | 2018-11-24 10:33 | PT.OTN ---
Current Diagnoses Bilateral primary osteoarthritis of knee (11/24/18) Aftercare following joint replacement surgery (11/24/18) Presence of right artificial knee joint (11/24/18) Physical Therapy Treatment Note PT-OP-A Visit Information Start: 09/09/18 11:59 Freq: Status: Active Protocol: Document 11/24/18 09:45 DCW (Rec: 11/24/18 10:33 DCW [id number]) Out-Patient Physical Therapy Visit Information Visit Information Visit Type Progress Note Visit Note 2019 visit #32 Visit Start Time 09:45 Visit Stop Time 10:40 Total Visit Minutes 55 Visit Number 07/14 Evaluation Information Evaluation Date 09/09/18 PT-OP-B Current Condition Start: 09/09/18 11:59 Freq: Status: Active Protocol: Document 09/09/18 10:30 DCW (Rec: 09/09/18 12:30 DCW [id number]) Current Condition History of Current Condition Onset Date 09/06/18 Current Complaints Right knee pain, weakness, stiffness, difficulty with gait s/p R TKA History of Current Condition Pt is a 73 year old male well known to this clinic presenting 3 days s/p R TKA following failure of conservative treatment. Pt reports his pain varies from a 2/10 at rest to a 10/10 when trying to lift his leg into his vehicle or straighten his right knee out. Pt comes into the clinic today with increased difficulty ambulating with his rented FWW , most notably due to the fact that at its highest setting, it is still 5 inches too short . Pt reports he is currently on Oxycodone for pain control, but is looking forward to getting off of it. Prior Treatments and Tests Prior history of PT at this clinic, most recently discharged after his last visit on 08/30/18 to prepare for his TKA. Treatment Goals Patient/Caregiver Goals Return to prior level of function, especially getting up and down from the floor in his workshop. Prior Functional Status Baseline Function- ADL's Independent Baseline Function- Mobility Independent Current Functional Impairments (Reported) Functional Limitations- Mobility/Gait Ambulating step-to gait pattern using a FWW that is approximately 5 inches too short, severely antalgic PT-OP-C Subjective Start: 09/09/18 11:59 Freq: Status: Active Protocol: Document 11/24/18 09:45 DCW (Rec: 11/24/18 10:33 DCW [id number]) OP-PT Subjective Patient Comments Patient Comments Pt reports he has returned to two Prednisone pills (5 mg each) a day, and is actually feeling pretty good. PT-OP-F Manual Assessment Start: 09/09/18 11:59 Freq: Status: Active Protocol: Document 11/24/18 09:45 DCW (Rec: 11/24/18 10:13 DCW [id number]) Manual Assessments Soft Tissue Assessment Soft Tissue Mobility Assessment Incision fully healed, scar intact. Moderate tone in right hamstring. PT-OP-G Mobility & Gait Start: 09/09/18 12:30 Freq: Status: Active Protocol: Document 11/24/18 09:45 DCW (Rec: 11/24/18 10:13 DCW [id number]) OP Gait Assessment Assistive Devices Assistive Device None Gait Deviations General Gait Pattern Antalgic Lateral Trunk Lean Factors Limiting Gait Function Factors Limiting Gait Function Limited Range of Motion Pain Comments Gait Comments Pt ambulating without an assistive device, mild- moderate antalgia with right leg, mainly due to still an inability to fully extend knee PT-OP-J Posture/Palpation/Skin Start: 09/09/18 12:30 Freq: Status: Active Protocol: Document 10/14/18 10:35 DCW (Rec: 10/14/18 11:07 DCW [id number]) Skin Assessment Circumference Measurement 10 cm inferior to jt line Location Right calf Measurement (Centimeters) 36.7 Comments Left = 38.8 Joint line Location Right knee Measurement (Centimeters) 41.9 Comments Left = 40.0 cm 10 cm superior to jt line Location Right thigh Measurement (Centimeters) 43.4 Comments Left = 43.8 cm PT-OP-K Range of Motion Start: 09/09/18 11:59 Freq: Status: Active Protocol: Document 11/24/18 09:45 DCW (Rec: 11/24/18 10:13 DCW [id number]) Knee Goniometric Range of Motion Knee Measured in Degrees Left Knee ROM WFL No Patient Position Supine Flexion Active (degrees) 113 Flexion Passive (degrees) 120 Extension Active (degrees) 8 Extension Passive (degrees) 6 Knee ROM Limitations Knee ROM Limitations Soft Tissue Tightness Bony Restriction Muscle Weakness Muscle Tone Pain Swelling PT-OP-M Strength Start: 09/09/18 11:59 Freq: Status: Active Protocol: Document 11/24/18 09:45 DCW (Rec: 11/24/18 10:13 DCW [id number]) Knee Strength Knee Manual Muscle Testing Left Flexion (S2) 5 Normal Extension (L3) 4+ Good+ PT-OP-Q Treatments Start: 09/09/18 11:59 Freq: Status: Active Protocol: Document 11/24/18 09:45 DCW (Rec: 11/24/18 10:33 DCW [id number]) Cardio Equipment Recumbent Bicycle Duration (Minutes) 6 Resistance 6 Seat Position 7 Gym Equipment Shuttle Recovery Unilateral Squats Details Right Resistance 75# Shuttle Recovery Platform Stable Reps/Time Deep Squat Bilateral Squats Resistance 125# Shuttle Recovery Platform Stable Reps/Time Deep Squat Therapeutic Exercises Supine Exercises Hamstring Stretch Supine Exercise Name HS stretch Side right Manual Therapy Treatment Soft Tissue Mobilization Hamstring Body Location R Hamstring Mobilization Type Instrument Assisted Rolling Other Other Manual Treatments Manual Extension Stretch - Supine PT-OP-R Modalities Start: 09/09/18 11:59 Freq: Status: Active Protocol: Document 11/24/18 09:45 DCW (Rec: 11/24/18 10:33 DCW [id number]) Electric Stimulation Electric Stimulation Interferential Current (IFC) Body Location R knee Duration (Minutes) 15 Intensity 46 Patient Position Hooklying Combined With Heat/Cold Cold Pack PT-OP-T Assessment and Plan Start: 09/09/18 11:59 Freq: Status: Active Protocol: Document 11/24/18 09:45 DCW (Rec: 11/24/18 10:33 DCW [id number]) Physical Therapy Assessment Impairments Impairments Activity Tolerance Balance Edema Functional Activities Functional Mobility Gait Pain ROM Soft Tissue Mobility Strength Goals Five Impairment ROM Short Term Goal (STG) Left knee AROM to 5?-110? STG Duration 10/14/18 Longterm Goal (LTG) Left knee AROM to 0?-120? LTG Duration 12/10/18 Four Impairment Strength Longterm Goal (LTG) Gross LE MMT to / LTG Duration 11/09/18 Three Impairment Joint Effusion Longterm Goal (LTG) Circumfrence measurements on left knee to equal right LTG Duration 11/09/18 Two Impairment Floor transfers Longterm Goal (LTG) Pt to get off floor of workshop without use of objects to use UE to pull himself up LTG Duration 12/10/18 One Impairment Pt does not have appropriate home exercise program Short Term Goal (STG) Pt to be independent and compliant with an appropriate HEP STG Duration 10/10/18 Assessment Summary Assessment Pt making good progress, improved gait and ROM nearing post-op expectations, however still lagging behind where he should be. Pt is leaving the country for the next 3-4 weeks , but would benefit from continued therapy following his return. Physical Therapy Plan Frequency and Duration Frequency of Treatment 2x/Week Duration of Treatment 2 months Plan of Care Start Date 11/24/18 Plan of Care End Date 01/24/19 Therapeutic Interventions Therapeutic Interventions Aquatic Therapy Balance Training Gait Training Home Exercise Program Joint Mobilizations Manual Therapy Neuromuscular Re-education Patient/Caregiver Education Self-Care/Home Management Soft Tissue Mobilization Therapeutic Activities Therapeutic Exercises Modalities Cold Pack/Ice Massage Electric Stimulation Hot Packs Ultrasound Next Visit Focus/Plan Next Note Type Treatment Note Next Visit Plan Continued focus on extension flexibility and decreasing hamstring contracture.
--- NOTE | 2018-11-24 10:34 | PT.OPPOC ---
Current Diagnoses Bilateral primary osteoarthritis of knee (11/24/18) Aftercare following joint replacement surgery (11/24/18) Presence of right artificial knee joint (11/24/18) Provider Visit Care Team Role Provider Type Kavita Aranda MD Primary Care Provider Non-Staff Specialty: Internal Medicine Address: [address] [place] [address], [address], [place], [address] Email: Lucy Anna MD Attending Provider Physician Specialty: Orthopedic Surgery Address: [address] [place] [address], [id number] Email: [email or web address] Plan Of Care PT-OP-T Assessment and Plan Start: 09/09/18 11:59 Freq: Status: Active Protocol: Document 11/24/18 09:45 DCW (Rec: 11/24/18 10:33 DCW [id number]) Physical Therapy Assessment Impairments Impairments Activity Tolerance Balance Edema Functional Activities Functional Mobility Gait Pain ROM Soft Tissue Mobility Strength Goals Five Impairment ROM Short Term Goal (STG) Left knee AROM to 5?-110? STG Duration 10/14/18 Senior Care Goal (LTG) Left knee AROM to 0?-120? LTG Duration 12/10/18 Four Impairment Strength Car Rental Sales Assistant Goal (LTG) Gross LE MMT to 4/5 LTG Duration 11/09/18 Three Impairment Joint Effusion Senior Care Goal (LTG) Circumfrence measurements on left knee to equal right LTG Duration 11/09/18 Two Impairment Floor transfers Senior Care Goal (LTG) Pt to get off floor of workshop without use of objects to use UE to pull himself up LTG Duration 12/10/18 One Impairment Pt does not have appropriate home exercise program Short Term Goal (STG) Pt to be independent and compliant with an appropriate HEP STG Duration 10/10/18 Assessment Summary Assessment Pt making good progress, improved gait and ROM nearing post-op expectations, however still lagging behind where he should be. Pt is leaving the country for the next 3-4 weeks , but would benefit from continued therapy following his return. Physical Therapy Plan Frequency and Duration Frequency of Treatment 2x/Week Duration of Treatment 2 months Plan of Care Start Date 11/24/18 Plan of Care End Date 01/24/19 Therapeutic Interventions Therapeutic Interventions Aquatic Therapy Balance Training Gait Training Home Exercise Program Joint Mobilizations Manual Therapy Neuromuscular Re-education Patient/Caregiver Education Self-Care/Home Management Soft Tissue Mobilization Therapeutic Activities Therapeutic Exercises Modalities Cold Pack/Ice Massage Electric Stimulation Hot Packs Ultrasound Next Visit Focus/Plan Next Note Type Treatment Note Next Visit Plan Continued focus on extension flexibility and decreasing hamstring contracture. Plan of Care Dates Plan of Care Start Date 11/24/18 Plan of Care End Date 01/24/19 Please Sign and Return: I have reviewed this Plan of Care and certify that the skilled therapy services above are required to meet the patient?s needs. Physician Signature Date Printed Name and Credentials Clinical Instructor Signature Printed Name and Credentials
--- NOTE | 2018-12-29 10:30 | PT.OTN ---
Current Diagnoses Bilateral primary osteoarthritis of knee (12/29/18) Aftercare following joint replacement surgery (12/29/18) Presence of right artificial knee joint (12/29/18) Physical Therapy Treatment Note PT-OP-A Visit Information Start: 09/09/18 11:59 Freq: Status: Active Protocol: Document 12/29/18 09:45 DCW (Rec: 12/29/18 10:28 DCW [id number]) Out-Patient Physical Therapy Visit Information Visit Information Visit Type Treatment Note Visit Note 2019 visit #33 Visit Start Time 09:45 Visit Stop Time 10:30 Total Visit Minutes 45 Visit Number 08/14 Evaluation Information Evaluation Date 09/09/18 PT-OP-B Current Condition Start: 09/09/18 11:59 Freq: Status: Active Protocol: Document 09/09/18 10:30 DCW (Rec: 09/09/18 12:30 DCW [id number]) Current Condition History of Current Condition Onset Date 09/06/18 Current Complaints Right knee pain, weakness, stiffness, difficulty with gait s/p R TKA History of Current Condition Pt is a 73 year old male well known to this clinic presenting 3 days s/p R TKA following failure of conservative treatment. Pt reports his pain varies from a 2/10 at rest to a 10/10 when trying to lift his leg into his vehicle or straighten his right knee out. Pt comes into the clinic today with increased difficulty ambulating with his rented FWW , most notably due to the fact that at its highest setting, it is still 5 inches too short . Pt reports he is currently on Oxycodone for pain control, but is looking forward to getting off of it. Prior Treatments and Tests Prior history of PT at this clinic, most recently discharged after his last visit on 08/30/18 to prepare for his TKA. Treatment Goals Patient/Caregiver Goals Return to prior level of function, especially getting up and down from the floor in his workshop. Prior Functional Status Baseline Function- ADL's Independent Baseline Function- Mobility Independent Current Functional Impairments (Reported) Functional Limitations- Mobility/Gait Ambulating step-to gait pattern using a FWW that is approximately 5 inches too short, severely antalgic PT-OP-C Subjective Start: 09/09/18 11:59 Freq: Status: Active Protocol: Document 12/29/18 09:45 DCW (Rec: 12/29/18 10:28 DCW [id number]) OP-PT Subjective Patient Comments Patient Comments Pt reports overall he did well on his trip, and he feels his ROM has improved. Does note he continues to have difficulty climbing stairs, and had a rough day in [place] when walking around gardens for about 4-5 miles, but admits that after that, it was feeling great. PT-OP-F Manual Assessment Start: 09/09/18 11:59 Freq: Status: Active Protocol: Document 11/24/18 09:45 DCW (Rec: 11/24/18 10:13 DCW [id number]) Manual Assessments Soft Tissue Assessment Soft Tissue Mobility Assessment Incision fully healed, scar intact. Moderate tone in right hamstring. PT-OP-G Mobility & Gait Start: 09/09/18 12:30 Freq: Status: Active Protocol: Document 11/24/18 09:45 DCW (Rec: 11/24/18 10:13 DCW [id number]) OP Gait Assessment Assistive Devices Assistive Device None Gait Deviations General Gait Pattern Antalgic Lateral Trunk Lean Factors Limiting Gait Function Factors Limiting Gait Function Limited Range of Motion Pain Comments Gait Comments Pt ambulating without an assistive device, mild- moderate antalgia with right leg, mainly due to still an inability to fully extend knee PT-OP-J Posture/Palpation/Skin Start: 09/09/18 12:30 Freq: Status: Active Protocol: Document 10/14/18 10:35 DCW (Rec: 10/14/18 11:07 DCW [id number]) Skin Assessment Circumference Measurement 10 cm inferior to jt line Location Right calf Measurement (Centimeters) 36.7 Comments Left = 38.8 Joint line Location Right knee Measurement (Centimeters) 41.9 Comments Left = 40.0 cm 10 cm superior to jt line Location Right thigh Measurement (Centimeters) 43.4 Comments Left = 43.8 cm PT-OP-K Range of Motion Start: 09/09/18 11:59 Freq: Status: Active Protocol: Document 12/29/18 09:45 DCW (Rec: 12/29/18 10:30 DCW [id number]) Knee Goniometric Range of Motion Knee Right Patient Position Supine Flexion Active (degrees) 121 Flexion Passive (degrees) 125 Extension Active (degrees) 1 Extension Passive (degrees) 0 PT-OP-M Strength Start: 09/09/18 11:59 Freq: Status: Active Protocol: Document 11/24/18 09:45 DCW (Rec: 11/24/18 10:13 DCW [id number]) Knee Strength Knee Manual Muscle Testing Left Flexion (S2) 5 Normal Extension (L3) 4+ Good+ PT-OP-Q Treatments Start: 09/09/18 11:59 Freq: Status: Active Protocol: Document 12/29/18 09:45 DCW (Rec: 12/29/18 10:28 DCW [id number]) Cardio Equipment Recumbent Bicycle Duration (Minutes) 6 Resistance 6 Seat Position 7 Gym Equipment Shuttle Recovery Unilateral Squats Details Right Resistance 75# Shuttle Recovery Platform Stable Reps/Time Shallow squat Bilateral Squats Resistance 150# Shuttle Recovery Platform Stable Reps/Time Shallow Squat Shuttle Balance Red Details Wide MICHAEL, Mini-squat, Staggered Stance Therapeutic Exercises Supine Exercises Hamstring Stretch Supine Exercise Name HS stretch Side right Standing Exercises Step-ups Standing Exercise Name Step-ups Side right Equipment Used 12-8 Stair Flexion Stretch Standing Exercise Name Flexion stretch on stairs Side right Gait Training Gait Activity 1 Description Focus on decreasing limp during R weight-bearing Device Used none Level of Assistance Verbal Cues PT-OP-T Assessment and Plan Start: 09/09/18 11:59 Freq: Status: Active Protocol: Document 12/29/18 09:45 DCW (Rec: 12/29/18 10:28 DCW [id number]) Physical Therapy Assessment Impairments Impairments Activity Tolerance Balance Edema Functional Activities Functional Mobility Gait Pain ROM Soft Tissue Mobility Strength Goals Five Impairment ROM Short Term Goal (STG) Left knee AROM to 5?-110? STG Duration 10/14/18 Alf Goal (LTG) Left knee AROM to 0?-120? LTG Duration 12/10/18 Four Impairment Strength Alf Goal (LTG) Gross LE MMT to 4/5 LTG Duration 11/09/18 Three Impairment Joint Effusion Senior Pharmacy Technician Goal (LTG) Circumfrence measurements on left knee to equal right LTG Duration 11/09/18 Two Impairment Floor transfers Senior Pharmacy Technician Goal (LTG) Pt to get off floor of workshop without use of objects to use UE to pull himself up LTG Duration 12/10/18 One Impairment Pt does not have appropriate home exercise program Short Term Goal (STG) Pt to be independent and compliant with an appropriate HEP STG Duration 10/10/18 Assessment Summary Assessment Pt doing very well following his month-long therapy hold for travel, likely approaching discharge. Physical Therapy Plan Frequency and Duration Frequency of Treatment 2x/Week Duration of Treatment 2 months Plan of Care Start Date 11/24/18 Plan of Care End Date 01/24/19 Therapeutic Interventions Therapeutic Interventions Aquatic Therapy Balance Training Gait Training Home Exercise Program Joint Mobilizations Manual Therapy Neuromuscular Re-education Patient/Caregiver Education Self-Care/Home Management Soft Tissue Mobilization Therapeutic Activities Therapeutic Exercises Modalities Cold Pack/Ice Massage Electric Stimulation Hot Packs Ultrasound Next Visit Focus/Plan Next Note Type Treatment Note Next Visit Plan Continued focus on extension flexibility and decreasing hamstring contracture.
--- NOTE | 2019-01-03 11:56 | PT.OTN ---
Current Diagnoses Bilateral primary osteoarthritis of knee (01/03/19) Aftercare following joint replacement surgery (01/03/19) Presence of right artificial knee joint (01/03/19) Physical Therapy Treatment Note PT-OP-A Visit Information Start: 09/09/18 11:59 Freq: Status: Active Protocol: Document 01/03/19 11:15 DCW (Rec: 01/03/19 11:55 DCW [id number]) Out-Patient Physical Therapy Visit Information Visit Information Visit Type Treatment Note Visit Note 2019 visit #34 Visit Start Time 11:15 Visit Stop Time 12:10 Total Visit Minutes 55 Visit Number 09/11 Evaluation Information Evaluation Date 09/09/18 PT-OP-B Current Condition Start: 09/09/18 11:59 Freq: Status: Active Protocol: Document 09/09/18 10:30 DCW (Rec: 09/09/18 12:30 DCW [id number]) Current Condition History of Current Condition Onset Date 09/06/18 Current Complaints Right knee pain, weakness, stiffness, difficulty with gait s/p R TKA History of Current Condition Pt is a 73 year old male well known to this clinic presenting 3 days s/p R TKA following failure of conservative treatment. Pt reports his pain varies from a 2/10 at rest to a 10/10 when trying to lift his leg into his vehicle or straighten his right knee out. Pt comes into the clinic today with increased difficulty ambulating with his rented FWW , most notably due to the fact that at its highest setting, it is still 5 inches too short . Pt reports he is currently on Oxycodone for pain control, but is looking forward to getting off of it. Prior Treatments and Tests Prior history of PT at this clinic, most recently discharged after his last visit on 08/30/18 to prepare for his TKA. Treatment Goals Patient/Caregiver Goals Return to prior level of function, especially getting up and down from the floor in his workshop. Prior Functional Status Baseline Function- ADL's Independent Baseline Function- Mobility Independent Current Functional Impairments (Reported) Functional Limitations- Mobility/Gait Ambulating step-to gait pattern using a FWW that is approximately 5 inches too short, severely antalgic PT-OP-C Subjective Start: 09/09/18 11:59 Freq: Status: Active Protocol: Document 01/03/19 11:15 DCW (Rec: 01/03/19 11:55 DCW [id number]) OP-PT Subjective Patient Comments Patient Comments Pt reports that he went on a bike right over the weekend, and although at the time he felt it wasn't too tough, he has been feeling it quite a bit, which tells me it still needs a lot of work. PT-OP-F Manual Assessment Start: 09/09/18 11:59 Freq: Status: Active Protocol: Document 11/24/18 09:45 DCW (Rec: 11/24/18 10:13 DCW [id number]) Manual Assessments Soft Tissue Assessment Soft Tissue Mobility Assessment Incision fully healed, scar intact. Moderate tone in right hamstring. PT-OP-G Mobility & Gait Start: 09/09/18 12:30 Freq: Status: Active Protocol: Document 11/24/18 09:45 DCW (Rec: 11/24/18 10:13 DCW [id number]) OP Gait Assessment Assistive Devices Assistive Device None Gait Deviations General Gait Pattern Antalgic Lateral Trunk Lean Factors Limiting Gait Function Factors Limiting Gait Function Limited Range of Motion Pain Comments Gait Comments Pt ambulating without an assistive device, mild- moderate antalgia with right leg, mainly due to still an inability to fully extend knee PT-OP-J Posture/Palpation/Skin Start: 09/09/18 12:30 Freq: Status: Active Protocol: Document 10/14/18 10:35 DCW (Rec: 10/14/18 11:07 DCW [id number]) Skin Assessment Circumference Measurement 10 cm inferior to jt line Location Right calf Measurement (Centimeters) 36.7 Comments Left = 38.8 Joint line Location Right knee Measurement (Centimeters) 41.9 Comments Left = 40.0 cm 10 cm superior to jt line Location Right thigh Measurement (Centimeters) 43.4 Comments Left = 43.8 cm PT-OP-K Range of Motion Start: 09/09/18 11:59 Freq: Status: Active Protocol: Document 12/29/18 09:45 DCW (Rec: 12/29/18 10:30 DCW [id number]) Knee Goniometric Range of Motion Knee Right Patient Position Supine Flexion Active (degrees) 121 Flexion Passive (degrees) 125 Extension Active (degrees) 1 Extension Passive (degrees) 0 PT-OP-M Strength Start: 09/09/18 11:59 Freq: Status: Active Protocol: Document 11/24/18 09:45 DCW (Rec: 11/24/18 10:13 DCW [id number]) Knee Strength Knee Manual Muscle Testing Left Flexion (S2) 5 Normal Extension (L3) 4+ Good+ PT-OP-Q Treatments Start: 09/09/18 11:59 Freq: Status: Active Protocol: Document 01/03/19 11:15 DCW (Rec: 01/03/19 11:55 DCW [id number]) Cardio Equipment Recumbent Bicycle Duration (Minutes) 6 Resistance 8 Seat Position 7 Gym Equipment Cable Column (Body Solid) Leg Extension Resistance DL 50#, SL 20# Shuttle Recovery Unilateral Squats Details Right Resistance 75# Shuttle Recovery Platform Stable Bilateral Squats Resistance 150# Shuttle Recovery Platform Stable Shuttle Balance Red Details Wide MICHAEL, Mini-squat, Staggered Stance Therapeutic Exercises Standing Exercises Lunges Standing Exercise Name Lunge walks along Neuro Re-Education Treatment Balance Activities SLS Details SLS PT-OP-R Modalities Start: 09/09/18 11:59 Freq: Status: Active Protocol: Document 01/03/19 11:15 DCW (Rec: 01/03/19 11:55 DCW [id number]) Electric Stimulation Electric Stimulation Interferential Current (IFC) Body Location R knee Duration (Minutes) 15 Intensity 47 Patient Position Hooklying Combined With Heat/Cold Cold Pack PT-OP-T Assessment and Plan Start: 09/09/18 11:59 Freq: Status: Active Protocol: Document 01/03/19 11:15 DCW (Rec: 01/03/19 11:55 DCW [id number]) Physical Therapy Assessment Impairments Impairments Activity Tolerance Balance Edema Functional Activities Functional Mobility Gait Pain ROM Soft Tissue Mobility Strength Goals Five Impairment ROM Short Term Goal (STG) Left knee AROM to 5?-110? STG Duration 10/14/18 Incident Response Analyst Goal (LTG) Left knee AROM to 0?-120? LTG Duration 12/10/18 Four Impairment Strength Care Home Goal (LTG) Gross LE MMT to 10/07 LTG Duration 11/09/18 Three Impairment Joint Effusion Incident Response Analyst Goal (LTG) Circumfrence measurements on left knee to equal right LTG Duration 11/09/18 Two Impairment Floor transfers Care Home Goal (LTG) Pt to get off floor of workshop without use of objects to use UE to pull himself up LTG Duration 12/10/18 One Impairment Pt does not have appropriate home exercise program Short Term Goal (STG) Pt to be independent and compliant with an appropriate HEP STG Duration 10/10/18 Assessment Summary Assessment Pt's ROM still doing very well , however pt continues to have noticeable deficits in knee strength Physical Therapy Plan Frequency and Duration Frequency of Treatment 2x/Week Duration of Treatment 2 months Plan of Care Start Date 11/24/18 Plan of Care End Date 01/24/19 Therapeutic Interventions Therapeutic Interventions Aquatic Therapy Balance Training Gait Training Home Exercise Program Joint Mobilizations Manual Therapy Neuromuscular Re-education Patient/Caregiver Education Self-Care/Home Management Soft Tissue Mobilization Therapeutic Activities Therapeutic Exercises Modalities Cold Pack/Ice Massage Electric Stimulation Hot Packs Ultrasound Next Visit Focus/Plan Next Note Type Treatment Note Next Visit Plan Continued focus on extension flexibility and decreasing hamstring contracture.
--- NOTE | 2019-01-06 12:43 | PT.OTN ---
Current Diagnoses Bilateral primary osteoarthritis of knee (01/06/19) Aftercare following joint replacement surgery (01/06/19) Presence of right artificial knee joint (01/06/19) Physical Therapy Treatment Note PT-OP-A Visit Information Start: 09/09/18 11:59 Freq: Status: Active Protocol: Document 01/06/19 12:00 DCW (Rec: 01/06/19 12:40 DCW [id number]) Out-Patient Physical Therapy Visit Information Visit Information Visit Type Treatment Note Visit Note 2019 visit #35 Visit Start Time 12:00 Visit Stop Time 12:55 Total Visit Minutes 55 Visit Number 10/12 Evaluation Information Evaluation Date 09/09/18 PT-OP-B Current Condition Start: 09/09/18 11:59 Freq: Status: Active Protocol: Document 09/09/18 10:30 DCW (Rec: 09/09/18 12:30 DCW [id number]) Current Condition History of Current Condition Onset Date 09/06/18 Current Complaints Right knee pain, weakness, stiffness, difficulty with gait s/p R TKA History of Current Condition Pt is a 73 year old male well known to this clinic presenting 3 days s/p R TKA following failure of conservative treatment. Pt reports his pain varies from a 2/10 at rest to a 10/10 when trying to lift his leg into his vehicle or straighten his right knee out. Pt comes into the clinic today with increased difficulty ambulating with his rented FWW , most notably due to the fact that at its highest setting, it is still 5 inches too short . Pt reports he is currently on Oxycodone for pain control, but is looking forward to getting off of it. Prior Treatments and Tests Prior history of PT at this clinic, most recently discharged after his last visit on 08/30/18 to prepare for his TKA. Treatment Goals Patient/Caregiver Goals Return to prior level of function, especially getting up and down from the floor in his workshop. Prior Functional Status Baseline Function- ADL's Independent Baseline Function- Mobility Independent Current Functional Impairments (Reported) Functional Limitations- Mobility/Gait Ambulating step-to gait pattern using a FWW that is approximately 5 inches too short, severely antalgic PT-OP-C Subjective Start: 09/09/18 11:59 Freq: Status: Active Protocol: Document 01/06/19 12:00 DCW (Rec: 01/06/19 12:40 DCW [id number]) OP-PT Subjective Patient Comments Patient Comments Pt reports he feels overall improvement in his knee. PT-OP-F Manual Assessment Start: 09/09/18 11:59 Freq: Status: Active Protocol: Document 01/06/19 12:00 DCW (Rec: 01/06/19 12:42 DCW [id number]) Manual Assessments Soft Tissue Assessment Soft Tissue Mobility Assessment Incision fully healed, scar intact. Mild tone in right hamstring. PT-OP-G Mobility & Gait Start: 09/09/18 12:30 Freq: Status: Active Protocol: Document 01/06/19 12:00 DCW (Rec: 01/06/19 12:42 DCW [id number]) OP Gait Assessment Assistive Devices Assistive Device None Gait Deviations General Gait Pattern Antalgic Lateral Trunk Lean Factors Limiting Gait Function Factors Limiting Gait Function Decreased Strength Comments Gait Comments Mild antalgic gait on R side PT-OP-J Posture/Palpation/Skin Start: 09/09/18 12:30 Freq: Status: Active Protocol: Document 10/14/18 10:35 DCW (Rec: 10/14/18 11:07 DCW [id number]) Skin Assessment Circumference Measurement 10 cm inferior to jt line Location Right calf Measurement (Centimeters) 36.7 Comments Left = 38.8 Joint line Location Right knee Measurement (Centimeters) 41.9 Comments Left = 40.0 cm 10 cm superior to jt line Location Right thigh Measurement (Centimeters) 43.4 Comments Left = 43.8 cm PT-OP-K Range of Motion Start: 09/09/18 11:59 Freq: Status: Active Protocol: Document 01/06/19 12:00 DCW (Rec: 01/06/19 12:42 DCW [id number]) Knee Goniometric Range of Motion Knee Right Patient Position Supine Flexion Active (degrees) 121 Flexion Passive (degrees) 125 Extension Active (degrees) 1 Extension Passive (degrees) 0 PT-OP-M Strength Start: 09/09/18 11:59 Freq: Status: Active Protocol: Document 01/06/19 12:00 DCW (Rec: 01/06/19 12:42 DCW [id number]) Knee Strength Knee Manual Muscle Testing Left Flexion (S2) 5 Normal Extension (L3) 4+ Good+ PT-OP-Q Treatments Start: 09/09/18 11:59 Freq: Status: Active Protocol: Document 01/06/19 12:00 DCW (Rec: 01/06/19 12:40 DCW [id number]) Cardio Equipment Recumbent Bicycle Duration (Minutes) 6 Resistance 10 Seat Position 7 Gym Equipment Cable Column (Body Solid) Leg Extension Resistance DL 50#, SL 20# Shuttle Recovery Unilateral Squats Details Right Resistance 87# Shuttle Recovery Platform Stable Bilateral Squats Resistance 175# Shuttle Recovery Platform Stable Shuttle Balance Red Details Wide MICHAEL, Mini-squat, Staggered Stance Therapeutic Exercises Supine Exercises Hamstring Stretch Supine Exercise Name HS stretch Side right Standing Exercises Step-ups Standing Exercise Name Step-downs Side right Equipment Used 6 step Comments eccentric quad contraction PT-OP-R Modalities Start: 09/09/18 11:59 Freq: Status: Active Protocol: Document 01/06/19 12:00 DCW (Rec: 01/06/19 12:40 DCW [id number]) Electric Stimulation Electric Stimulation Interferential Current (IFC) Body Location R knee Duration (Minutes) 15 Intensity 46 Patient Position Hooklying Combined With Heat/Cold Cold Pack PT-OP-T Assessment and Plan Start: 09/09/18 11:59 Freq: Status: Active Protocol: Document 01/06/19 12:00 DCW (Rec: 01/06/19 12:40 DCW [id number]) Physical Therapy Assessment Impairments Impairments Activity Tolerance Balance Edema Functional Activities Functional Mobility Gait Pain ROM Soft Tissue Mobility Strength Goals Five Impairment ROM Short Term Goal (STG) Left knee AROM to 5?-110? STG Duration Met Assisted Goal (LTG) Left knee AROM to 0?-120? LTG Duration Met Four Impairment Strength Bank Credit Card Collection Clerk Goal (LTG) Gross LE MMT to 4/5 LTG Duration Met Three Impairment Joint Effusion Assisted Goal (LTG) Circumfrence measurements on left knee to equal right LTG Duration Met Two Impairment Floor transfers Bank Credit Card Collection Clerk Goal (LTG) Pt to get off floor of workshop without use of objects to use UE to pull himself up LTG Duration 12/10/18 One Impairment Pt does not have appropriate home exercise program Short Term Goal (STG) Pt to be independent and compliant with an appropriate HEP STG Duration Met Progress Towards Goals Progress Towards Goals Progressing Toward Goals Goals Met Assessment Summary Assessment Pt has largely met goals, with exception of ability to easily get off floor of his workshop. Pt committed to continuing strengthening on his own, agreeable to discharge at this time. Physical Therapy Plan Frequency and Duration Frequency of Treatment 2x/Week Duration of Treatment 2 months Plan of Care Start Date 11/24/18 Plan of Care End Date 01/24/19 Therapeutic Interventions Therapeutic Interventions Aquatic Therapy Balance Training Gait Training Home Exercise Program Joint Mobilizations Manual Therapy Neuromuscular Re-education Patient/Caregiver Education Self-Care/Home Management Soft Tissue Mobilization Therapeutic Activities Therapeutic Exercises Modalities Cold Pack/Ice Massage Electric Stimulation Hot Packs Ultrasound Discharge Physical Therapy Discharge Reasons Goals Met Next Visit Focus/Plan Next Note Type Treatment Note Next Visit Plan Continued focus on extension flexibility and decreasing hamstring contracture.
== END 2019-01-27 15:17 | disposition home or self-care (01) ==
LOC: PHYS 12:00
PROVIDERS: PCP Internal Medicine; Visit Provider Orthopaedic Surgery
DX: M17.0 Bilateral primary osteoarthritis of knee (principal); Z96.651 Presence of right artificial knee joint; Z47.1 Aftercare following joint replacement surgery
CPT/HCPCS: 97014; 97110; 97116; 97140; 97162; G0283

== ENCOUNTER → 2019-04-01 12:01 | Outpatient (CLI) | payer MEDICARE, OTHER, SELFPAY ==
[2018-09-06 16:27] VITALS: BMI 31.1
[2019-04-04 21:16] LABS: Testosterone Free 150.8 pg/mL (30.0-135.0); Testosterone Total 784 ng/dL (250-1100)
== END ==
PROVIDERS: PCP Internal Medicine; Visit Provider Internal Medicine
DX: R79.89 Other specified abnormal findings of blood chemistry (principal)
CPT/HCPCS: 36415; 84402; 84403

== ENCOUNTER → 2019-05-01 12:49 | Outpatient (CLI) | payer MEDICARE, OTHER, SELFPAY ==
[2018-09-06 16:27] VITALS: BMI 31.1
[2019-05-01 14:14] LABS: HEMOLYSIS < 15 (0-50); Iron 260 ug/dL (49-181)
[2019-05-01 14:25] LABS: Percent Iron Saturation 82 % (20-50); Total Iron Binding Capacity 316 ug/dL (261-462); Transferrin 259 mg/dL (206-381)
[2019-05-01 14:40] LABS: Vitamin B12 313 pg/mL (239-931)
== END ==
PROVIDERS: Family Provider Internal Medicine; PCP Internal Medicine; Visit Provider Internal Medicine Gastroenterology
DX: K29.00 Acute gastritis without bleeding (principal); D50.9 Iron deficiency anemia, unspecified
CPT/HCPCS: 36415; 82607; 83516; 83540; 83550

== ENCOUNTER → 2019-06-07 15:33 | Outpatient (CLI) | payer MEDICARE, OTHER, SELFPAY ==
[2018-09-06 16:27] VITALS: BMI 31.1
[2019-06-13 16:24] LABS: Testosterone Free 107.4 pg/mL (30.0-135.0); Testosterone Total 649 ng/dL (250-1100)
== END ==
PROVIDERS: PCP Internal Medicine; Visit Provider Internal Medicine
DX: R79.89 Other specified abnormal findings of blood chemistry (principal)
CPT/HCPCS: 36415; 84402; 84403

== ENCOUNTER 2019-06-08 12:45 | Emergency (ER) | payer MEDICARE, OTHER, SELFPAY ==
[2018-09-06 16:27] VITALS: BMI 31.1
[2019-06-08 12:50] VITALS: BP 147/73; PULSE 64; RESP 18; TEMP 36.4; O2SAT 100
--- NOTE | 2019-06-08 12:54 | DI.RAD.S_ITS ---
PROCEDURE: XR FOOT RT MIN 3V INDICATIONS: fall TECHNIQUE: 3 views of the foot were acquired. COMPARISON: None. FINDINGS: Bones: No fractures or dislocations. No suspicious bony lesions. Soft tissues: No tibiotalar joint effusion. Achilles tendon appears normal. IMPRESSION: No acute fracture. No osseous lesion. If symptoms and/or clinical suspicion for pathology persist, further assessment with repeat, or advanced imaging (e.g., CT, MRI, or bone scan) may be helpful for further assessment. Dictated by: Marybel Cuba M.D. on 06/08/2019 at 13:37 Approved by: Marybel Cuba M.D. on 06/08/2019 at 13:37
--- NOTE | 2019-06-08 12:55 | DI.RAD.S_ITS ---
PROCEDURE: XR ANKLE RT MIN 3V INDICATIONS: fall TECHNIQUE: 3 views of the ankle were acquired. COMPARISON: None. FINDINGS: Bones: No fractures or dislocations. Ankle mortise is normally aligned. No suspicious bony lesions. Soft tissues: No tibiotalar joint effusion. Achilles tendon appears normal. IMPRESSION: No acute fracture. No osseous lesion. If symptoms and/or clinical suspicion for pathology persist, further assessment with repeat, or advanced imaging (e.g., CT, MRI, or bone scan) may be helpful for further assessment. Dictated by: Marybel Cuba M.D. on 06/08/2019 at 13:37 Approved by: Marybel Cuba M.D. on 06/08/2019 at 13:38
--- NOTE | 2019-06-08 14:47 | ED.FALL ---
HPI - Fall General Chief Complaint: Fall Stated Complaint: fall last night, R leg is bothering him and L wris Time Seen by Provider: 06/08/19 14:37 Source: patient Mode of arrival: Wheelchair Related Data Home Medications Medication Instructions Recorded Confirmed atorvastatin 10 mg PO DAILY 02/05/18 09/02/18 bupropion HCl 150 mg PO DAILY 02/05/18 09/02/18 diethylpropion 25 mg PO TID 02/05/18 09/02/18 gabapentin 600 mg PO BEDTIME 02/05/18 09/02/18 methotrexate sodium 7.5 mg PO SEEINSTR 02/05/18 09/02/18 metoprolol succinate 25 mg PO BID 02/05/18 09/02/18 fluoxetine 20 mg PO DAILY 09/02/18 09/02/18 vardenafil 20 mg PO DAILY PRN 09/02/18 09/02/18 Previous Rx's Medication Instructions Recorded Xarelto 20 mg PO DAILY #30 tab 02/07/18 acetaminophen 975 mg PO TID #0 tab 09/07/18 docusate sodium 100 mg PO BID #0 cap 09/07/18 hydroxyzine pamoate 25 mg PO Q4HR PRN #0 cap 09/07/18 oxycodone 5 mg PO Q4-6H PRN #0 tab 09/07/18 Allergies Allergy/AdvReac Type Severity Reaction Status Date / Time No Known Drug Allergies Allergy Verified 09/06/18 12:49 Patient History Medical History (Updated 09/02/18 @ 13:30 by Sabina Sanchez RN) Alcoholism (Acute) Anxiety (Acute) Atrophic gastritis (Acute) Chronic low back pain (Acute) Cyst in hand (Acute ~2019) Depression (Acute) Diverticulosis (Acute) Dizziness (Acute) Erectile dysfunction (Acute) History of colon polyps (Acute) HTN (hypertension) (Acute) Hydronephrosis (Acute) Hyperlipidemia (Acute) Insomnia (Acute) Ischemia (Acute) Nephrolithiasis (Acute) YAIMA on CPAP (Acute) Osteoarthritis (Acute) Paroxysmal atrial fibrillation (Acute) Paroxysmal atrial flutter (Acute) Prediabetes (Acute) Psoriasis (Acute) Psoriatic arthritis (Acute) Psoriatic arthropathy (Acute) Retroperitoneal mass (Acute) RLS (restless legs syndrome) (Acute) Sinus congestion (Acute) Syncope (Acute) Testosterone deficiency (Acute) Vitamin D deficiency (Acute) Surgical History (Updated 09/02/18 @ 13:00 by Sabina Sanchez RN) History of total left knee replacement (TKR) (Acute) Hx of lithotripsy (Acute) Family History Father No problems noted. Mother No problems noted. Brother No problems noted. Sister No problems noted. Social History household members: spouse Smoking Status: Never smoker alcohol intake: current Smoking Status: Never smoker alcohol intake frequency: 0-2 drinks per day Substance Use Type: amphetamines Exam Initial Vital Signs Initial Vital Signs: Vital Signs Temperature 97.5 F L 06/08/19 12:50 Pulse Rate 64 06/08/19 12:50 Respiratory Rate 18 06/08/19 12:50 Blood Pressure 147/73 H 06/08/19 12:50 Pulse Oximetry 100 06/08/19 12:50 Course Orders Ordered: ED Orders 06/08/19 12:54 XR foot RT min 3V Stat 06/08/19 12:55 XR ankle RT min 3V Stat Vital Signs Vital signs: Vital Signs - 8 hr 06/08/19 12:50 Temperature 97.5 F L Pulse Rate 64 Respiratory Rate 18 Blood Pressure 147/73 H Pulse Oximetry 100 MDM - Fall Imaging Data foot and ankle: Radiologist's impression: [place] [address] XRay Report Signed Patient: Krunal Mahmood [facility]#: [id number] : 3Acct:[id number] Age/Sex: 74 / MDate of Service: 06/08/19 Loc: ED Accession Number: [id number] Procedure: XR ankle RT min 3V Ordering Provider: Araseli Proctor MD PROCEDURE: XR ANKLE RT MIN 3V INDICATIONS: fall TECHNIQUE: 3 views of the ankle were acquired. COMPARISON: None. FINDINGS: Bones: No fractures or dislocations. Ankle mortise is normally aligned. No suspicious bony lesions. Soft tissues: No tibiotalar joint effusion. Achilles tendon appears normal. IMPRESSION: No acute fracture. No osseous lesion. If symptoms and/or clinical suspicion for pathology persist, further assessment with repeat, or advanced imaging (e.g., CT, MRI, or bone scan) may be helpful for further assessment. Dictated by: Marybel Cuba M.D. on 06/08/2019 at 13:37 Approved by: Marybel Cuba M.D. on 06/08/2019 at 13:38 Krunal Mahmood 74 M [address] [address] XRay Report Signed Patient: Krunal Mahmood [facility]#: [id number] : 3Acct:[id number] Age/Sex: 74 / MDate of Service: 06/08/19 Loc: ED Accession Number: [id number] Procedure: XR foot RT min 3V Ordering Provider: Araseli Proctor MD PROCEDURE: XR FOOT RT MIN 3V INDICATIONS: fall TECHNIQUE: 3 views of the foot were acquired. COMPARISON: None. FINDINGS: Bones: No fractures or dislocations. No suspicious bony lesions. Soft tissues: No tibiotalar joint effusion. Achilles tendon appears normal. IMPRESSION: No acute fracture. No osseous lesion. If symptoms and/or clinical suspicion for pathology persist, further assessment with repeat, or advanced imaging (e.g., CT, MRI, or bone scan) may be helpful for further assessment. Dictated by: Marybel Cuba M.D. on 06/08/2019 at 13:37 Approved by: Marybel Cuba M.D. on 06/08/2019 at 13:37 Discharge Plan Departure Prescriptions: No Action metoprolol succinate 50 mg tablet extended release 24 hr 25 mg PO BID RF: 0 methotrexate sodium 2.5 mg tablet 7.5 mg PO SEEINSTR RF: 0 bupropion HCl 150 mg tablet extended release 24 hr 150 mg PO DAILY RF: 0 atorvastatin 10 mg tablet 10 mg PO DAILY RF: 0 diethylpropion 25 mg tablet 25 mg PO TID RF: 0 gabapentin 300 mg capsule 600 mg PO BEDTIME RF: 0 Xarelto 20 mg tablet 20 mg PO DAILY Qty: 30 RF: 0 fluoxetine 20 mg Capsule 20 mg PO DAILY RF: 0 vardenafil 20 mg Tablet 20 mg PO DAILY PRN (Reason: Sexual Activity) RF: 0 acetaminophen 325 mg Tablet 975 mg PO TID Qty: 0 RF: 0 docusate sodium 100 mg Capsule 100 mg PO BID Qty: 0 RF: 0 oxycodone 5 mg Tablet 5 mg PO Q4-6H PRN (Reason: Pain, Moderate (4-6)) Qty: 0 RF: 0 hydroxyzine pamoate 25 mg Capsule 25 mg PO Q4HR PRN (Reason: Muscle Spasm) Qty: 0 RF: 0
== END 2019-06-08 14:54 | disposition left against medical advice (07) ==
PROVIDERS: Emergency Provider Internal Medicine; PCP Internal Medicine
DX: M25.532 Pain in left wrist (principal); M25.571 Pain in right ankle and joints of right foot; W01.0XXA Fall on same level from slipping, tripping and stumbling without subsequent striking against object, initial encounter
CPT/HCPCS: 73610; 73630; 99282

== ENCOUNTER 2019-12-19 13:45 | Outpatient (RCR) | payer MEDICARE, OTHER, SELFPAY ==
[2018-09-06 16:27] VITALS: BMI 31.1
--- NOTE | 2019-05-01 17:53 | PT.OIE ---
Current Diagnoses Other specific arthropathies, not elsewhere classified, left shoulder (05/01/19) Pain in right shoulder (05/01/19) Pain in left shoulder (05/01/19) Stiffness of right shoulder, not elsewhere classified (05/01/19) Stiffness of left shoulder, not elsewhere classified (05/01/19) Impingement syndrome of right shoulder (05/01/19) Impingement syndrome of left shoulder (05/01/19) Abnormal posture (05/01/19) Strain of muscle(s) and tendon(s) of the rotator cuff of left shoulder, subsequent encounter (05/01/19) Past Medical History (Last Updated 09/02/18 @ 13:30 by Sabina Sanchez RN) Alcoholism (Acute) Anxiety (Acute) Atrophic gastritis (Acute) Chronic low back pain (Acute) Cyst in hand (Acute ~2019) Depression (Acute) Diverticulosis (Acute) Dizziness (Acute) Erectile dysfunction (Acute) History of colon polyps (Acute) HTN (hypertension) (Acute) Hydronephrosis (Acute) Hyperlipidemia (Acute) Insomnia (Acute) Ischemia (Acute) Nephrolithiasis (Acute) YAIMA on CPAP (Acute) Osteoarthritis (Acute) Paroxysmal atrial fibrillation (Acute) Paroxysmal atrial flutter (Acute) Prediabetes (Acute) Psoriasis (Acute) Psoriatic arthritis (Acute) Psoriatic arthropathy (Acute) Retroperitoneal mass (Acute) RLS (restless legs syndrome) (Acute) Sinus congestion (Acute) Syncope (Acute) Testosterone deficiency (Acute) Vitamin D deficiency (Acute) Past Surgical History (Last Updated 09/02/18 @ 13:00 by Sabina Sanchez RN) History of total left knee replacement (TKR) (Acute) Hx of lithotripsy (Acute) Visit Care Team Role Provider Type Kavita Aranda MD Primary Care Provider Non-Staff Specialty: Internal Medicine Address: [address] [place] [address], [address], [place], [address] Email: Franck Ugarte MD Attending Provider Non-Staff Specialty: Internal Medicine Address: [address] [place] [address], [address], [place], [address] Email: Physical Therapy Initial Evaluation PT-OP-A Visit Information Start: 05/01/19 15:22 Freq: Status: Active Protocol: Document 05/01/19 12:00 DCW (Rec: 05/01/19 17:53 [facility] [id number]) Out-Patient Physical Therapy Visit Information Visit Information Visit Type Initial Evaluation Visit Start Time 12:00 Visit Stop Time 12:45 Total Visit Minutes 45 Visit Number 1 Number of PARKING RAMP ATTENDANT Visits 0 Evaluation Information Evaluation Date 05/01/19 PT-OP-B Current Condition Start: 05/01/19 15:22 Freq: Status: Active Protocol: Document 05/01/19 12:00 DCW (Rec: 05/01/19 17:53 [facility] [id number]) Current Condition History of Current Condition Onset Date Three months Current Complaints Bilateral shoulder pain, immobility History of Current Condition Pt is a 74 year old male presenting with a three month history of left shoulder pain. Pt reports that he was reaching back to y to put a backpack on, and suddenly got a tremendous pain in his left shoulder. Pt has since been experiencing increased pain with any backward reaching, like trying to put on a jacket or reaching back for a seat belt. Pt also notes pain lifting more than 25 lbs , or lifting his arm overhead. Pt additionally has noticed that a few weeks ago, his right shoulder has now been bothering him with lifting or overhead motion as well, although this does not appear to be associated with any one event. Pt reports he had Dr. Ugarte check his shoulder, and was told that it won't get better without PT, so here I am. Pt has been seen in this facility multiple times, most recently for pre- and post-op therapy for a TKA. Treatment Goals Patient/Caregiver Goals Improve strength and function of his shoulders so he can return to his workshop with no limitations. PT-OP-C Subjective Start: 05/01/19 15:22 Freq: Status: Active Protocol: Document 05/01/19 12:00 DCW (Rec: 05/01/19 17:53 [facility] [id number]) OP-PT Subjective Patient Comments Patient Comments It's really been limiting in what I can do in my workshop. Patient Reported Progress Worse PT-OP-E Functional Tests Start: 05/01/19 15:22 Freq: Status: Active Protocol: Document 05/01/19 12:00 DCW (Rec: 05/01/19 17:53 [facility] [id number]) Functional Tests Apley's Scratch Test Action 1- Left Lateral opposite shoulder Action 1- Right Posterior opposite shoulder Action 2- Left Occiput Action 2- Right T2 Action 3- Left L PSIS Action 3- Right T10 PT-OP-F Manual Assessment Start: 05/01/19 15:22 Freq: Status: Active Protocol: Document 05/01/19 12:00 DCW (Rec: 05/01/19 17:53 MTW [id number]) Manual Assessments Soft Tissue Assessment Soft Tissue Mobility Assessment Severe tone - left Subscap, tenderness to palpation 3/4: Wincing and withdraw Moderate tone - bilateral Upper Trap, tenderness to palpation 2/4: Pain with wincing PT-OP-J Posture/Palpation/Skin Start: 05/01/19 15:22 Freq: Status: Active Protocol: Document 05/01/19 12:00 DCW (Rec: 05/01/19 17:53 [facility] [id number]) Posture Evaluation Position Standing Head/C-Spine Posture Forward Head Shoulder Posture (L) Rounded,(R) Rounded,(L) Forward,(R) Forward Scapula Posture (L) Protracted,(R) Protracted Comments Posture Comments Measurement from spine to medial boarder of scapula at level of scapular spine: L = 10 cm, R = 12 cm Measurement from spine to inferior angle of scapula: L = 13.5 cm, R= 15 cm PT-OP-K Range of Motion Start: 05/01/19 15:22 Freq: Status: Active Protocol: Document 05/01/19 12:00 DCW (Rec: 05/01/19 17:53 MTW [id number]) Shoulder Goniometric Range of Motion Shoulder Right Active Shoulder ROM WFL No Testing Position Sitting Flexion 115 Abduction 103 External Rotation at 0 degrees Abduction 66 Internal Rotation Behind Back (text) T10 Left Active Shoulder ROM WFL No Testing Position Sitting Flexion 91 Abduction 68 External Rotation at 0 degrees Abduction 40 Internal Rotation Behind Back (text) Left PSIS PT-OP-L Special Tests Start: 05/01/19 15:22 Freq: Status: Active Protocol: Document 05/01/19 12:00 DCW (Rec: 05/01/19 17:53 [facility] [id number]) Special Tests Shoulder Special Tests Painful Arc Test Results L Positive Passive ER Rotator Cuff Test Results L Positive Lift-Off Rotator Cuff Test Results L Difficulty Adame Irving Impingement Test Results B Positive Empty Can Test Results B Positive Drop Arm Rotator Cuff Test Results Negative Belly Press Test Results L Positive PT-OP-M Strength Start: 05/01/19 15:22 Freq: Status: Active Protocol: Document 05/01/19 12:00 DCW (Rec: 05/01/19 17:53 DCW [id number]) Shoulder Strength Shoulder Manual Muscle Testing Right Flexion 2+ Poor+ Abduction (C5) 2+ Poor+ External Rotation 4- Good- Left Flexion 2+ Poor+ Abduction (C5) 2+ Poor+ External Rotation 3- Fair- Comments Pt unable to move arm through full ROM against gravity PT-OP-Q Treatments Start: 05/01/19 15:22 Freq: Status: Active Protocol: Document 05/01/19 12:00 DCW (Rec: 05/01/19 17:53 DCW [id number]) Therapeutic Exercises Standing Exercises External Rotation Standing Exercise Name Shoulder ER Side bilateral Resistance Lv 2 Equipment Used T-band Adduction Standing Exercise Name Shoulder Adduction Side bilateral Resistance Lv 2 Equipment Used T-band Extension Standing Exercise Name Shoulder Extension Side bilateral Resistance Lv 2 Equipment Used T-band Rows Standing Exercise Name Rows Side bilateral Resistance Lv 2 Equipment Used T-band PT-OP-T Assessment and Plan Start: 05/01/19 15:22 Freq: Status: Active Protocol: Document 05/01/19 12:00 DCW (Rec: 05/01/19 17:53 DCW [id number]) Physical Therapy Assessment Rehab Potential Rehabilitation Potential Good Evaluation Complexity Number of Personal Factors/Comorbidities 1-2 Number of Body Systems Impaired 3 Clinical Presentation at Evaluation Evolving Impairments Impairments Activity Tolerance,Functional Mobility,Pain,Posture,ROM,Soft Tissue Mobility,Strength Goals Five Impairment Pt presents with increased forward shoulder posture Battery Technician Goal (LTG) Measurement from spine to medial boarder of scapula to at most 8 cm bilaterally LTG Duration 07/01/19 Four Impairment Pt displays limited shoulder ROM bilaterally Detention Goal (LTG) Right active flexion and abduction to 140? Left active flexion and abduction to 110? LTG Duration 07/01/19 Three Impairment Pt unable to tolerate working in his workshop due to pain Short Term Goal (STG) Pt to demonstrate overhead positioning of his bilateral arms with no increased pain STG Duration 06/01/19 Detention Goal (LTG) Pt to lift >45# without an increase in symptoms in his shoulders LTG Duration 07/01/19 Two Impairment Pt has difficulty dressing himself secondary to shoulder pain Detention Goal (LTG) Pt to don/doff jacket without an increase in shoulder pain bilaterally LTG Duration 07/01/19 One Impairment Pt does not have appropriate home exercise program Short Term Goal (STG) Pt to be independent and compliant with an appropriate HEP STG Duration 06/01/19 Assessment Summary Assessment Pt presents with signs and symptoms of a left subscapularis strain, as well as bilateral supraspinatus impingement. Pt's initial injury putting on a backpack likely caused the supraspinatus injury, as evidenced by the positive belly press, positive passive ER, and positive lift-off tests, as well as his limited active IR. Following this injury, pt likely began to experience supraspinatus impingement due to compensatory movements to complete daily tasks, including yard work and projects in his workshop. Currently, both of pt's scapulae are abducted and protracted, resulting in a rounded shoulder posture, and pt demonstrates dysfunctional left Scapulohumeral rhythm, with his tight subscap limiting full abduction. Pt should benefit from skilled therapy focusing on decreasing tone, improving shoulder girdle strength, improving posture, and improving bilateral shoulder ROM Physical Therapy Plan Frequency and Duration Frequency of Treatment 2x/Week Duration of Treatment Two months Plan of Care Start Date 05/01/19 Plan of Care End Date 07/01/19 Therapeutic Interventions Therapeutic Interventions Home Exercise Program,Joint Mobilizations,Manual Therapy, Neuromuscular Re-education, Patient/Caregiver Education, Self-Care/Home Management,Soft Tissue Mobilization, Therapeutic Activities, Therapeutic Exercises Modalities Cold Pack/Ice Massage,Electric Stimulation,Hot Packs Next Visit Focus/Plan Next Note Type Treatment Note Next Visit Plan Shoulder ROM, posture training , strengthening
--- NOTE | 2019-05-03 10:29 | PT.OTN ---
Current Diagnoses Other specific arthropathies, not elsewhere classified, left shoulder (05/03/19) Pain in right shoulder (05/03/19) Pain in left shoulder (05/03/19) Stiffness of right shoulder, not elsewhere classified (05/03/19) Stiffness of left shoulder, not elsewhere classified (05/03/19) Impingement syndrome of right shoulder (05/03/19) Impingement syndrome of left shoulder (05/03/19) Abnormal posture (05/03/19) Strain of muscle(s) and tendon(s) of the rotator cuff of left shoulder, subsequent encounter (05/03/19) Physical Therapy Treatment Note PT-OP-A Visit Information Start: 05/01/19 15:22 Freq: Status: Active Protocol: Document 05/03/19 09:45 DCW (Rec: 05/03/19 10:29 DCW [id number]) Out-Patient Physical Therapy Visit Information Visit Information Visit Type Treatment Note Visit Start Time 09:45 Visit Stop Time 10:30 Total Visit Minutes 45 Visit Number 2 Number of HAND STRIPER Visits 0 Evaluation Information Evaluation Date 05/01/19 PT-OP-B Current Condition Start: 05/01/19 15:22 Freq: Status: Active Protocol: Document 05/01/19 12:00 DCW (Rec: 05/01/19 17:53 DCW [id number]) Current Condition History of Current Condition Onset Date Three months Current Complaints Bilateral shoulder pain, immobility History of Current Condition Pt is a 74 year old male presenting with a three month history of left shoulder pain. Pt reports that he was reaching back to rty to put a backpack on, and suddenly got a tremendous pain in his left shoulder. Pt has since been experiencing increased pain with any backward reaching, like trying to put on a jacket or reaching back for a seat belt. Pt also notes pain lifting more than 25 lbs , or lifting his arm overhead. Pt additionally has noticed that a few weeks ago, his right shoulder has now been bothering him with lifting or overhead motion as well, although this does not appear to be associated with any one event. Pt reports he had Dr. Ugarte check his shoulder, and was told that it won't get better without PT, so here I am. Pt has been seen in this facility multiple times, most recently for pre- and post-op therapy for a TKA. Treatment Goals Patient/Caregiver Goals Improve strength and function of his shoulders so he can return to his workshop with no limitations. PT-OP-C Subjective Start: 05/01/19 15:22 Freq: Status: Active Protocol: Document 05/03/19 09:45 DCW (Rec: 05/03/19 10:29 DCW [id number]) OP-PT Subjective Patient Comments Patient Comments It's actually feeling better. I think not lifting my arms up into the painful area is helping. PT-OP-E Functional Tests Start: 05/01/19 15:22 Freq: Status: Active Protocol: Document 05/01/19 12:00 DCW (Rec: 05/01/19 17:53 DCW [id number]) Functional Tests Apley's Scratch Test Action 1- Left Lateral opposite shoulder Action 1- Right Posterior opposite shoulder Action 2- Left Occiput Action 2- Right T2 Action 3- Left L PSIS Action 3- Right T10 PT-OP-F Manual Assessment Start: 05/01/19 15:22 Freq: Status: Active Protocol: Document 05/01/19 12:00 DCW (Rec: 05/01/19 17:53 DCW [id number]) Manual Assessments Soft Tissue Assessment Soft Tissue Mobility Assessment Severe tone - left Subscap, tenderness to palpation 3/4: Wincing and withdraw Moderate tone - bilateral Upper Trap, tenderness to palpation 2/4: Pain with wincing PT-OP-J Posture/Palpation/Skin Start: 05/01/19 15:22 Freq: Status: Active Protocol: Document 05/01/19 12:00 DCW (Rec: 05/01/19 17:53 DCW [id number]) Posture Evaluation Position Standing Head/C-Spine Posture Forward Head Shoulder Posture (L) Rounded,(R) Rounded,(L) Forward,(R) Forward Scapula Posture (L) Protracted,(R) Protracted Comments Posture Comments Measurement from spine to medial boarder of scapula at level of scapular spine: L = 10 cm, R = 12 cm Measurement from spine to inferior angle of scapula: L = 13.5 cm, R= 15 cm PT-OP-K Range of Motion Start: 05/01/19 15:22 Freq: Status: Active Protocol: Document 05/01/19 12:00 DCW (Rec: 05/01/19 17:53 DCW [id number]) Shoulder Goniometric Range of Motion Shoulder Right Active Shoulder ROM WFL No Testing Position Sitting Flexion 115 Abduction 103 External Rotation at 0 degrees Abduction 66 Internal Rotation Behind Back (text) T10 Left Active Shoulder ROM WFL No Testing Position Sitting Flexion 91 Abduction 68 External Rotation at 0 degrees Abduction 40 Internal Rotation Behind Back (text) Left PSIS PT-OP-L Special Tests Start: 05/01/19 15:22 Freq: Status: Active Protocol: Document 05/01/19 12:00 DCW (Rec: 05/01/19 17:53 DCW [id number]) Special Tests Shoulder Special Tests Painful Arc Test Results L Positive Passive ER Rotator Cuff Test Results L Positive Lift-Off Rotator Cuff Test Results L Difficulty Adame Irving Impingement Test Results B Positive Empty Can Test Results B Positive Drop Arm Rotator Cuff Test Results Negative Belly Press Test Results L Positive PT-OP-M Strength Start: 05/01/19 15:22 Freq: Status: Active Protocol: Document 05/01/19 12:00 DCW (Rec: 05/01/19 17:53 DCW [id number]) Shoulder Strength Shoulder Manual Muscle Testing Right Flexion 2+ Poor+ Abduction (C5) 2+ Poor+ External Rotation 4- Good- Left Flexion 2+ Poor+ Abduction (C5) 2+ Poor+ External Rotation 3- Fair- Comments Pt unable to move arm through full ROM against gravity PT-OP-Q Treatments Start: 05/01/19 15:22 Freq: Status: Active Protocol: Document 05/03/19 09:45 DCW (Rec: 05/03/19 10:29 DCW [id number]) Cardio Equipment Upper Body Ergometer (UBE) Duration (Minutes) 6 RPM 60 Seat Position 15 Height 2.5 Therapeutic Exercises Supine Exercises Horizontal Adduction Supine Exercise Name Horizontal Adduction Side bilateral Resistance 4# R, 2# L Reps/Minutes x20 Supine Punch Supine Exercise Name Serratus punch Side bilateral Resistance 4# Reps/Minutes x20 Prone Exercises Extension Prone Exercise Name Prone Shoulder Ext Side bilateral Resistance 4# R, 2# L Horizontal Abduction Prone Exercise Name Prone H Abd Side bilateral Resistance 4# R, 2# L Sidelying Exercises Abduction Sidelying Exercise Name Shoulder Abd Side bilateral Resistance 2# L, 4# R Reps/Minutes x20 Comments Pain-free External Rotation Sidelying Exercise Name Shoulder ER Side bilateral Resistance 4# Reps/Minutes x20 Comments Pain-free Sitting Exercises PROM Sitting Exercise Name Shoulder Flexion/Abduction Side bilateral Equipment Used T-bar Standing Exercises IR Stretch Standing Exercise Name Towel stretch in IR Manual Therapy Treatment Soft Tissue Mobilization Subscap Body Location L Subscap Mobilization Type Strumming,Sustained Pressure, Trigger Point Release Joint Mobilizations 1 Joint L GH Direction Inferior Grade III Body Position Supine PT-OP-T Assessment and Plan Start: 05/01/19 15:22 Freq: Status: Active Protocol: Document 05/03/19 09:45 DCW (Rec: 05/03/19 10:29 DCW [id number]) Physical Therapy Assessment Impairments Impairments Activity Tolerance,Functional Mobility,Pain,Posture,ROM,Soft Tissue Mobility,Strength Goals Five Impairment Pt presents with increased forward shoulder posture [facility] Goal (LTG) Measurement from spine to medial boarder of scapula to at most 8 cm bilaterally LTG Duration 07/01/19 Four Impairment Pt displays limited shoulder ROM bilaterally [employer] Goal (LTG) Right active flexion and abduction to 140? Left active flexion and abduction to 110? LTG Duration 07/01/19 Three Impairment Pt unable to tolerate working in his workshop due to pain Short Term Goal (STG) Pt to demonstrate overhead positioning of his bilateral arms with no increased pain STG Duration 06/01/19 [facility] Goal (LTG) Pt to lift >45# without an increase in symptoms in his shoulders LTG Duration 07/01/19 Two Impairment Pt has difficulty dressing himself secondary to shoulder pain [employer] Goal (LTG) Pt to don/doff jacket without an increase in shoulder pain bilaterally LTG Duration 07/01/19 One Impairment Pt does not have appropriate home exercise program Short Term Goal (STG) Pt to be independent and compliant with an appropriate HEP STG Duration 06/01/19 Assessment Summary Assessment Pt tolerated treatment well today, able to perform activities within pain-free ROM. Physical Therapy Plan Frequency and Duration Frequency of Treatment 2x/Week Duration of Treatment Two months Plan of Care Start Date 05/01/19 Plan of Care End Date 07/01/19 Therapeutic Interventions Therapeutic Interventions Home Exercise Program,Joint Mobilizations,Manual Therapy, Neuromuscular Re-education, Patient/Caregiver Education, Self-Care/Home Management,Soft Tissue Mobilization, Therapeutic Activities, Therapeutic Exercises Modalities Cold Pack/Ice Massage,Electric Stimulation,Hot Packs Next Visit Focus/Plan Next Note Type Treatment Note Next Visit Plan Shoulder ROM, posture training , strengthening
--- NOTE | 2019-05-08 11:19 | PT.OTN ---
Current Diagnoses Other specific arthropathies, not elsewhere classified, left shoulder (05/08/19) Pain in right shoulder (05/08/19) Pain in left shoulder (05/08/19) Stiffness of right shoulder, not elsewhere classified (05/08/19) Stiffness of left shoulder, not elsewhere classified (05/08/19) Impingement syndrome of right shoulder (05/08/19) Impingement syndrome of left shoulder (05/08/19) Abnormal posture (05/08/19) Strain of muscle(s) and tendon(s) of the rotator cuff of left shoulder, subsequent encounter (05/08/19) Physical Therapy Treatment Note PT-OP-A Visit Information Start: 05/01/19 15:22 Freq: Status: Active Protocol: Document 05/08/19 10:32 DCW (Rec: 05/08/19 11:15 DCW [id number]) Out-Patient Physical Therapy Visit Information Visit Information Visit Type Treatment Note Visit Start Time 10:32 Visit Stop Time 11:15 Total Visit Minutes 43 Visit Number 3 Number of MAINFRAME SYSTEMS PROGRAMMER Visits 0 Evaluation Information Evaluation Date 05/01/19 PT-OP-B Current Condition Start: 05/01/19 15:22 Freq: Status: Active Protocol: Document 05/01/19 12:00 DCW (Rec: 05/01/19 17:53 DCW [id number]) Current Condition History of Current Condition Onset Date Three months Current Complaints Bilateral shoulder pain, immobility History of Current Condition Pt is a 74 year old male presenting with a three month history of left shoulder pain. Pt reports that he was reaching back to rty to put a backpack on, and suddenly got a tremendous pain in his left shoulder. Pt has since been experiencing increased pain with any backward reaching, like trying to put on a jacket or reaching back for a seat belt. Pt also notes pain lifting more than 25 lbs , or lifting his arm overhead. Pt additionally has noticed that a few weeks ago, his right shoulder has now been bothering him with lifting or overhead motion as well, although this does not appear to be associated with any one event. Pt reports he had Dr. Ugarte check his shoulder, and was told that it won't get better without PT, so here I am. Pt has been seen in this facility multiple times, most recently for pre- and post-op therapy for a TKA. Treatment Goals Patient/Caregiver Goals Improve strength and function of his shoulders so he can return to his workshop with no limitations. PT-OP-C Subjective Start: 05/01/19 15:22 Freq: Status: Active Protocol: Document 05/08/19 10:32 DCW (Rec: 05/08/19 11:15 DCW [id number]) OP-PT Subjective Patient Comments Patient Comments I was feeling quite a bit better after my lest session, but then yesterday was pretty bad, and last night in bed was bad, but then I woke up this morning feeling like I had a good night's sleep, so I don' tnow. PT-OP-E Functional Tests Start: 05/01/19 15:22 Freq: Status: Active Protocol: Document 05/01/19 12:00 DCW (Rec: 05/01/19 17:53 DCW [id number]) Functional Tests Apley's Scratch Test Action 1- Left Lateral opposite shoulder Action 1- Right Posterior opposite shoulder Action 2- Left Occiput Action 2- Right T2 Action 3- Left L PSIS Action 3- Right T10 PT-OP-F Manual Assessment Start: 05/01/19 15:22 Freq: Status: Active Protocol: Document 05/01/19 12:00 DCW (Rec: 05/01/19 17:53 DCW [id number]) Manual Assessments Soft Tissue Assessment Soft Tissue Mobility Assessment Severe tone - left Subscap, tenderness to palpation 3/4: Wincing and withdraw Moderate tone - bilateral Upper Trap, tenderness to palpation 2/4: Pain with wincing PT-OP-J Posture/Palpation/Skin Start: 05/01/19 15:22 Freq: Status: Active Protocol: Document 05/01/19 12:00 DCW (Rec: 05/01/19 17:53 DCW [id number]) Posture Evaluation Position Standing Head/C-Spine Posture Forward Head Shoulder Posture (L) Rounded,(R) Rounded,(L) Forward,(R) Forward Scapula Posture (L) Protracted,(R) Protracted Comments Posture Comments Measurement from spine to medial boarder of scapula at level of scapular spine: L = 10 cm, R = 12 cm Measurement from spine to inferior angle of scapula: L = 13.5 cm, R= 15 cm PT-OP-K Range of Motion Start: 05/01/19 15:22 Freq: Status: Active Protocol: Document 05/01/19 12:00 DCW (Rec: 05/01/19 17:53 DCW [id number]) Shoulder Goniometric Range of Motion Shoulder Right Active Shoulder ROM WFL No Testing Position Sitting Flexion 115 Abduction 103 External Rotation at 0 degrees Abduction 66 Internal Rotation Behind Back (text) T10 Left Active Shoulder ROM WFL No Testing Position Sitting Flexion 91 Abduction 68 External Rotation at 0 degrees Abduction 40 Internal Rotation Behind Back (text) Left PSIS PT-OP-L Special Tests Start: 05/01/19 15:22 Freq: Status: Active Protocol: Document 05/01/19 12:00 DCW (Rec: 05/01/19 17:53 DCW [id number]) Special Tests Shoulder Special Tests Painful Arc Test Results L Positive Passive ER Rotator Cuff Test Results L Positive Lift-Off Rotator Cuff Test Results L Difficulty Adame Irving Impingement Test Results B Positive Empty Can Test Results B Positive Drop Arm Rotator Cuff Test Results Negative Belly Press Test Results L Positive PT-OP-M Strength Start: 05/01/19 15:22 Freq: Status: Active Protocol: Document 05/01/19 12:00 DCW (Rec: 05/01/19 17:53 DCW [id number]) Shoulder Strength Shoulder Manual Muscle Testing Right Flexion 2+ Poor+ Abduction (C5) 2+ Poor+ External Rotation 4- Good- Left Flexion 2+ Poor+ Abduction (C5) 2+ Poor+ External Rotation 3- Fair- Comments Pt unable to move arm through full ROM against gravity PT-OP-Q Treatments Start: 05/01/19 15:22 Freq: Status: Active Protocol: Document 05/08/19 10:32 DCW (Rec: 05/08/19 11:15 DCW [id number]) Cardio Equipment Upper Body Ergometer (UBE) Duration (Minutes) 6 RPM 60 Seat Position 15 Height 2.5 Therapeutic Exercises Supine Exercises Horizontal Adduction Supine Exercise Name Horizontal Adduction Side bilateral Resistance 4# R, 2# L Reps/Minutes x20 Supine Punch Supine Exercise Name Serratus punch Side bilateral Resistance 4# Reps/Minutes x20 Sidelying Exercises Abduction Sidelying Exercise Name Shoulder Abd Side bilateral Resistance 2# L, 4# R Reps/Minutes x20 Comments Pain-free External Rotation Sidelying Exercise Name Shoulder ER Side bilateral Resistance 4# Reps/Minutes x20 Comments Pain-free Sitting Exercises PROM Sitting Exercise Name Shoulder Flexion/Abduction Side bilateral Equipment Used Pulleys Standing Exercises IR Stretch Standing Exercise Name Towel stretch in IR Other Exercises Resisted Side-stepping Other Exercise Name UE resisted side-stepping on rail Resistance Yellow Equipment Used T-band Manual Therapy Treatment Soft Tissue Mobilization Subscap Body Location L Subscap Mobilization Type Strumming,Sustained Pressure, Trigger Point Release Joint Mobilizations 1 Joint L GH Direction Inferior Grade III Body Position Supine PT-OP-T Assessment and Plan Start: 05/01/19 15:22 Freq: Status: Active Protocol: Document 05/08/19 10:32 DCW (Rec: 05/08/19 11:19 DCW [id number]) Physical Therapy Assessment Impairments Impairments Activity Tolerance,Functional Mobility,Pain,Posture,ROM,Soft Tissue Mobility,Strength Goals Five Impairment Pt presents with increased forward shoulder posture Correction Goal (LTG) Measurement from spine to medial boarder of scapula to at most 8 cm bilaterally LTG Duration 07/01/19 Four Impairment Pt displays limited shoulder ROM bilaterally [employer] Goal (LTG) Right active flexion and abduction to 140? Left active flexion and abduction to 110? LTG Duration 07/01/19 Three Impairment Pt unable to tolerate working in his workshop due to pain Short Term Goal (STG) Pt to demonstrate overhead positioning of his bilateral arms with no increased pain STG Duration 06/01/19 Correction Goal (LTG) Pt to lift >45# without an increase in symptoms in his shoulders LTG Duration 07/01/19 Two Impairment Pt has difficulty dressing himself secondary to shoulder pain [employer] Goal (LTG) Pt to don/doff jacket without an increase in shoulder pain bilaterally LTG Duration 07/01/19 One Impairment Pt does not have appropriate home exercise program Short Term Goal (STG) Pt to be independent and compliant with an appropriate HEP STG Duration 06/01/19 Assessment Summary Assessment ROM improving with therapy, pt still having increased tenderness with subscab palpation. Physical Therapy Plan Frequency and Duration Frequency of Treatment 2x/Week Duration of Treatment Two months Plan of Care Start Date 05/01/19 Plan of Care End Date 07/01/19 Therapeutic Interventions Therapeutic Interventions Home Exercise Program,Joint Mobilizations,Manual Therapy, Neuromuscular Re-education, Patient/Caregiver Education, Self-Care/Home Management,Soft Tissue Mobilization, Therapeutic Activities, Therapeutic Exercises Modalities Cold Pack/Ice Massage,Electric Stimulation,Hot Packs Next Visit Focus/Plan Next Note Type Treatment Note Next Visit Plan Shoulder ROM, posture training , strengthening
--- NOTE | 2019-05-10 10:33 | PT.OTN ---
Current Diagnoses Other specific arthropathies, not elsewhere classified, left shoulder (05/10/19) Pain in right shoulder (05/10/19) Pain in left shoulder (05/10/19) Stiffness of right shoulder, not elsewhere classified (05/10/19) Stiffness of left shoulder, not elsewhere classified (05/10/19) Impingement syndrome of right shoulder (05/10/19) Impingement syndrome of left shoulder (05/10/19) Abnormal posture (05/10/19) Strain of muscle(s) and tendon(s) of the rotator cuff of left shoulder, subsequent encounter (05/10/19) Physical Therapy Treatment Note PT-OP-A Visit Information Start: 05/01/19 15:22 Freq: Status: Active Protocol: Document 05/10/19 09:45 DCW (Rec: 05/10/19 10:33 DCW [id number]) Out-Patient Physical Therapy Visit Information Visit Information Visit Type Treatment Note Visit Start Time 09:45 Visit Stop Time 10:30 Total Visit Minutes 45 Visit Number 4 Number of COUNTER CLERK Visits 0 Evaluation Information Evaluation Date 05/01/19 PT-OP-B Current Condition Start: 05/01/19 15:22 Freq: Status: Active Protocol: Document 05/01/19 12:00 DCW (Rec: 05/01/19 17:53 DCW [id number]) Current Condition History of Current Condition Onset Date Three months Current Complaints Bilateral shoulder pain, immobility History of Current Condition Pt is a 74 year old male presenting with a three month history of left shoulder pain. Pt reports that he was reaching back to rty to put a backpack on, and suddenly got a tremendous pain in his left shoulder. Pt has since been experiencing increased pain with any backward reaching, like trying to put on a jacket or reaching back for a seat belt. Pt also notes pain lifting more than 25 lbs , or lifting his arm overhead. Pt additionally has noticed that a few weeks ago, his right shoulder has now been bothering him with lifting or overhead motion as well, although this does not appear to be associated with any one event. Pt reports he had Dr. Ugarte check his shoulder, and was told that it won't get better without PT, so here I am. Pt has been seen in this facility multiple times, most recently for pre- and post-op therapy for a TKA. Treatment Goals Patient/Caregiver Goals Improve strength and function of his shoulders so he can return to his workshop with no limitations. PT-OP-C Subjective Start: 05/01/19 15:22 Freq: Status: Active Protocol: Document 05/10/19 09:45 DCW (Rec: 05/10/19 10:33 DCW [id number]) OP-PT Subjective Patient Comments Patient Comments Pt reports he is feeling pretty good this morning, not having any noticeable pain. PT-OP-E Functional Tests Start: 05/01/19 15:22 Freq: Status: Active Protocol: Document 05/01/19 12:00 DCW (Rec: 05/01/19 17:53 DCW [id number]) Functional Tests Apley's Scratch Test Action 1- Left Lateral opposite shoulder Action 1- Right Posterior opposite shoulder Action 2- Left Occiput Action 2- Right T2 Action 3- Left L PSIS Action 3- Right T10 PT-OP-F Manual Assessment Start: 05/01/19 15:22 Freq: Status: Active Protocol: Document 05/01/19 12:00 DCW (Rec: 05/01/19 17:53 DCW [id number]) Manual Assessments Soft Tissue Assessment Soft Tissue Mobility Assessment Severe tone - left Subscap, tenderness to palpation 3/4: Wincing and withdraw Moderate tone - bilateral Upper Trap, tenderness to palpation 2/4: Pain with wincing PT-OP-J Posture/Palpation/Skin Start: 05/01/19 15:22 Freq: Status: Active Protocol: Document 05/01/19 12:00 DCW (Rec: 05/01/19 17:53 DCW [id number]) Posture Evaluation Position Standing Head/C-Spine Posture Forward Head Shoulder Posture (L) Rounded,(R) Rounded,(L) Forward,(R) Forward Scapula Posture (L) Protracted,(R) Protracted Comments Posture Comments Measurement from spine to medial boarder of scapula at level of scapular spine: L = 10 cm, R = 12 cm Measurement from spine to inferior angle of scapula: L = 13.5 cm, R= 15 cm PT-OP-K Range of Motion Start: 05/01/19 15:22 Freq: Status: Active Protocol: Document 05/01/19 12:00 DCW (Rec: 05/01/19 17:53 DCW [id number]) Shoulder Goniometric Range of Motion Shoulder Right Active Shoulder ROM WFL No Testing Position Sitting Flexion 115 Abduction 103 External Rotation at 0 degrees Abduction 66 Internal Rotation Behind Back (text) T10 Left Active Shoulder ROM WFL No Testing Position Sitting Flexion 91 Abduction 68 External Rotation at 0 degrees Abduction 40 Internal Rotation Behind Back (text) Left PSIS PT-OP-L Special Tests Start: 05/01/19 15:22 Freq: Status: Active Protocol: Document 05/01/19 12:00 DCW (Rec: 05/01/19 17:53 DCW [id number]) Special Tests Shoulder Special Tests Painful Arc Test Results L Positive Passive ER Rotator Cuff Test Results L Positive Lift-Off Rotator Cuff Test Results L Difficulty Adame Irving Impingement Test Results B Positive Empty Can Test Results B Positive Drop Arm Rotator Cuff Test Results Negative Belly Press Test Results L Positive PT-OP-M Strength Start: 05/01/19 15:22 Freq: Status: Active Protocol: Document 05/01/19 12:00 DCW (Rec: 05/01/19 17:53 DCW [id number]) Shoulder Strength Shoulder Manual Muscle Testing Right Flexion 2+ Poor+ Abduction (C5) 2+ Poor+ External Rotation 4- Good- Left Flexion 2+ Poor+ Abduction (C5) 2+ Poor+ External Rotation 3- Fair- Comments Pt unable to move arm through full ROM against gravity PT-OP-Q Treatments Start: 05/01/19 15:22 Freq: Status: Active Protocol: Document 05/10/19 09:45 DCW (Rec: 05/10/19 10:33 DCW [id number]) Cardio Equipment Upper Body Ergometer (UBE) Duration (Minutes) 6 RPM 60 Seat Position 15 Height 5 Therapeutic Exercises Supine Exercises Horizontal Adduction Supine Exercise Name Horizontal Adduction Side bilateral Resistance 4# R, 2# L Reps/Minutes x20 Supine Punch Supine Exercise Name Serratus punch Side bilateral Resistance 4# Reps/Minutes x20 Prone Exercises Extension Prone Exercise Name Prone Shoulder Ext Side bilateral Resistance 3# Horizontal Abduction Prone Exercise Name Prone H Abd Side bilateral Resistance 3# Sidelying Exercises Abduction Sidelying Exercise Name Shoulder Abd Side bilateral Resistance 2# L, 4# R Reps/Minutes x20 Comments Pain-free External Rotation Sidelying Exercise Name Shoulder ER Side bilateral Resistance 4# Reps/Minutes x20 Comments Pain-free Sitting Exercises PROM Sitting Exercise Name Shoulder Flexion/Abduction Side bilateral Equipment Used Pulleys Other Exercises Resisted Side-stepping Other Exercise Name UE resisted side-stepping on rail Resistance Yellow Equipment Used T-band Manual Therapy Treatment Soft Tissue Mobilization Subscap Body Location L Subscap Mobilization Type Strumming,Sustained Pressure, Trigger Point Release Joint Mobilizations 1 Joint L GH Direction Inferior Grade III Body Position Supine PT-OP-T Assessment and Plan Start: 05/01/19 15:22 Freq: Status: Active Protocol: Document 05/10/19 09:45 DCW (Rec: 05/10/19 10:33 DCW [id number]) Physical Therapy Assessment Impairments Impairments Activity Tolerance,Functional Mobility,Pain,Posture,ROM,Soft Tissue Mobility,Strength Goals Five Impairment Pt presents with increased forward shoulder posture Allopathic Doctor Goal (LTG) Measurement from spine to medial boarder of scapula to at most 8 cm bilaterally LTG Duration 07/01/19 Four Impairment Pt displays limited shoulder ROM bilaterally Care Home Goal (LTG) Right active flexion and abduction to 140? Left active flexion and abduction to 110? LTG Duration 07/01/19 Three Impairment Pt unable to tolerate working in his workshop due to pain Short Term Goal (STG) Pt to demonstrate overhead positioning of his bilateral arms with no increased pain STG Duration 06/01/19 Care Home Goal (LTG) Pt to lift >45# without an increase in symptoms in his shoulders LTG Duration 07/01/19 Two Impairment Pt has difficulty dressing himself secondary to shoulder pain Allopathic Doctor Goal (LTG) Pt to don/doff jacket without an increase in shoulder pain bilaterally LTG Duration 07/01/19 One Impairment Pt does not have appropriate home exercise program Short Term Goal (STG) Pt to be independent and compliant with an appropriate HEP STG Duration 06/01/19 Assessment Summary Assessment Pt having improvement with general mobility and pain levels, improved humeroscaplar rhythm today following manual intervention Physical Therapy Plan Frequency and Duration Frequency of Treatment 2x/Week Duration of Treatment Two months Plan of Care Start Date 05/01/19 Plan of Care End Date 07/01/19 Therapeutic Interventions Therapeutic Interventions Home Exercise Program,Joint Mobilizations,Manual Therapy, Neuromuscular Re-education, Patient/Caregiver Education, Self-Care/Home Management,Soft Tissue Mobilization, Therapeutic Activities, Therapeutic Exercises Modalities Cold Pack/Ice Massage,Electric Stimulation,Hot Packs Next Visit Focus/Plan Next Note Type Treatment Note Next Visit Plan Shoulder ROM, posture training , strengthening
--- NOTE | 2019-05-17 15:16 | PT.OTN ---
Current Diagnoses Other specific arthropathies, not elsewhere classified, left shoulder (05/17/19) Pain in right shoulder (05/17/19) Pain in left shoulder (05/17/19) Stiffness of right shoulder, not elsewhere classified (05/17/19) Stiffness of left shoulder, not elsewhere classified (05/17/19) Impingement syndrome of right shoulder (05/17/19) Impingement syndrome of left shoulder (05/17/19) Abnormal posture (05/17/19) Strain of muscle(s) and tendon(s) of the rotator cuff of left shoulder, subsequent encounter (05/17/19) Physical Therapy Treatment Note PT-OP-A Visit Information Start: 05/01/19 15:22 Freq: Status: Active Protocol: Document 05/17/19 14:30 DCW (Rec: 05/17/19 15:16 DCW [id number]) Out-Patient Physical Therapy Visit Information Visit Information Visit Type Treatment Note Visit Start Time 14:30 Visit Stop Time 15:15 Total Visit Minutes 45 Visit Number 5 Number of SOIL EXPERT Visits 0 Evaluation Information Evaluation Date 05/01/19 PT-OP-B Current Condition Start: 05/01/19 15:22 Freq: Status: Active Protocol: Document 05/01/19 12:00 DCW (Rec: 05/01/19 17:53 DCW [id number]) Current Condition History of Current Condition Onset Date Three months Current Complaints Bilateral shoulder pain, immobility History of Current Condition Pt is a 74 year old male presenting with a three month history of left shoulder pain. Pt reports that he was reaching back to rty to put a backpack on, and suddenly got a tremendous pain in his left shoulder. Pt has since been experiencing increased pain with any backward reaching, like trying to put on a jacket or reaching back for a seat belt. Pt also notes pain lifting more than 25 lbs , or lifting his arm overhead. Pt additionally has noticed that a few weeks ago, his right shoulder has now been bothering him with lifting or overhead motion as well, although this does not appear to be associated with any one event. Pt reports he had Dr. Ugarte check his shoulder, and was told that it won't get better without PT, so here I am. Pt has been seen in this facility multiple times, most recently for pre- and post-op therapy for a TKA. Treatment Goals Patient/Caregiver Goals Improve strength and function of his shoulders so he can return to his workshop with no limitations. PT-OP-C Subjective Start: 05/01/19 15:22 Freq: Status: Active Protocol: Document 05/17/19 14:30 DCW (Rec: 05/17/19 15:16 DCW [id number]) OP-PT Subjective Patient Comments Patient Comments Not too bad today. I had a terrible weekend, though. I'm not sure why. The arthritis was just worse than I think it has even been before. PT-OP-E Functional Tests Start: 05/01/19 15:22 Freq: Status: Active Protocol: Document 05/01/19 12:00 DCW (Rec: 05/01/19 17:53 DCW [id number]) Functional Tests Apley's Scratch Test Action 1- Left Lateral opposite shoulder Action 1- Right Posterior opposite shoulder Action 2- Left Occiput Action 2- Right T2 Action 3- Left L PSIS Action 3- Right T10 PT-OP-F Manual Assessment Start: 05/01/19 15:22 Freq: Status: Active Protocol: Document 05/01/19 12:00 DCW (Rec: 05/01/19 17:53 DCW [id number]) Manual Assessments Soft Tissue Assessment Soft Tissue Mobility Assessment Severe tone - left Subscap, tenderness to palpation 3/4: Wincing and withdraw Moderate tone - bilateral Upper Trap, tenderness to palpation 2/4: Pain with wincing PT-OP-J Posture/Palpation/Skin Start: 05/01/19 15:22 Freq: Status: Active Protocol: Document 05/01/19 12:00 DCW (Rec: 05/01/19 17:53 DCW [id number]) Posture Evaluation Position Standing Head/C-Spine Posture Forward Head Shoulder Posture (L) Rounded,(R) Rounded,(L) Forward,(R) Forward Scapula Posture (L) Protracted,(R) Protracted Comments Posture Comments Measurement from spine to medial boarder of scapula at level of scapular spine: L = 10 cm, R = 12 cm Measurement from spine to inferior angle of scapula: L = 13.5 cm, R= 15 cm PT-OP-K Range of Motion Start: 05/01/19 15:22 Freq: Status: Active Protocol: Document 05/01/19 12:00 DCW (Rec: 05/01/19 17:53 DCW [id number]) Shoulder Goniometric Range of Motion Shoulder Right Active Shoulder ROM WFL No Testing Position Sitting Flexion 115 Abduction 103 External Rotation at 0 degrees Abduction 66 Internal Rotation Behind Back (text) T10 Left Active Shoulder ROM WFL No Testing Position Sitting Flexion 91 Abduction 68 External Rotation at 0 degrees Abduction 40 Internal Rotation Behind Back (text) Left PSIS PT-OP-L Special Tests Start: 05/01/19 15:22 Freq: Status: Active Protocol: Document 05/01/19 12:00 DCW (Rec: 05/01/19 17:53 DCW [id number]) Special Tests Shoulder Special Tests Painful Arc Test Results L Positive Passive ER Rotator Cuff Test Results L Positive Lift-Off Rotator Cuff Test Results L Difficulty Adame Irving Impingement Test Results B Positive Empty Can Test Results B Positive Drop Arm Rotator Cuff Test Results Negative Belly Press Test Results L Positive PT-OP-M Strength Start: 05/01/19 15:22 Freq: Status: Active Protocol: Document 05/01/19 12:00 DCW (Rec: 05/01/19 17:53 DCW [id number]) Shoulder Strength Shoulder Manual Muscle Testing Right Flexion 2+ Poor+ Abduction (C5) 2+ Poor+ External Rotation 4- Good- Left Flexion 2+ Poor+ Abduction (C5) 2+ Poor+ External Rotation 3- Fair- Comments Pt unable to move arm through full ROM against gravity PT-OP-Q Treatments Start: 05/01/19 15:22 Freq: Status: Active Protocol: Document 05/17/19 14:30 DCW (Rec: 05/17/19 15:16 DCW [id number]) Cardio Equipment Upper Body Ergometer (UBE) Duration (Minutes) 6 RPM 60 Seat Position 15 Height 5 Therapeutic Exercises Sidelying Exercises Abduction Sidelying Exercise Name Shoulder Abd Side bilateral Resistance 2# L, 4# R Reps/Minutes x20 Comments Pain-free External Rotation Sidelying Exercise Name Shoulder ER Side bilateral Resistance 4# Reps/Minutes x20 Comments Pain-free Sitting Exercises PROM Sitting Exercise Name Shoulder Flexion/Abduction Side bilateral Equipment Used Pulleys Standing Exercises IR Stretch Standing Exercise Name Shoulder IR Side left Equipment Used Pulleys Other Exercises Resisted Side-stepping Other Exercise Name UE resisted side-stepping on rail Resistance Yellow Equipment Used T-band Manual Therapy Treatment Soft Tissue Mobilization Subscap Body Location L Subscap Mobilization Type Strumming,Sustained Pressure, Trigger Point Release Joint Mobilizations 1 Joint L GH Direction Inferior Grade III Body Position Supine PT-OP-T Assessment and Plan Start: 05/01/19 15:22 Freq: Status: Active Protocol: Document 05/17/19 14:30 DCW (Rec: 05/17/19 15:16 DCW [id number]) Physical Therapy Assessment Impairments Impairments Activity Tolerance,Functional Mobility,Pain,Posture,ROM,Soft Tissue Mobility,Strength Goals Five Impairment Pt presents with increased forward shoulder posture Penitentiary Goal (LTG) Measurement from spine to medial boarder of scapula to at most 8 cm bilaterally LTG Duration 07/01/19 Four Impairment Pt displays limited shoulder ROM bilaterally Penitentiary Goal (LTG) Right active flexion and abduction to 140? Left active flexion and abduction to 110? LTG Duration 07/01/19 Three Impairment Pt unable to tolerate working in his workshop due to pain Short Term Goal (STG) Pt to demonstrate overhead positioning of his bilateral arms with no increased pain STG Duration 06/01/19 Penitentiary Goal (LTG) Pt to lift >45# without an increase in symptoms in his shoulders LTG Duration 07/01/19 Two Impairment Pt has difficulty dressing himself secondary to shoulder pain Certified Scrum Master Goal (LTG) Pt to don/doff jacket without an increase in shoulder pain bilaterally LTG Duration 07/01/19 One Impairment Pt does not have appropriate home exercise program Short Term Goal (STG) Pt to be independent and compliant with an appropriate HEP STG Duration 06/01/19 Assessment Summary Assessment Pt continues to improve with tolerance to activity, ROM, and strength. Pt has no ongoing concerns at this time, feels that things are improving. Physical Therapy Plan Frequency and Duration Frequency of Treatment 2x/Week Duration of Treatment Two months Plan of Care Start Date 05/01/19 Plan of Care End Date 07/01/19 Therapeutic Interventions Therapeutic Interventions Home Exercise Program,Joint Mobilizations,Manual Therapy, Neuromuscular Re-education, Patient/Caregiver Education, Self-Care/Home Management,Soft Tissue Mobilization, Therapeutic Activities, Therapeutic Exercises Modalities Cold Pack/Ice Massage,Electric Stimulation,Hot Packs Next Visit Focus/Plan Next Note Type Treatment Note Next Visit Plan Shoulder ROM, posture training , strengthening
--- NOTE | 2019-05-19 11:21 | PT.OTN ---
Current Diagnoses Other specific arthropathies, not elsewhere classified, left shoulder (05/19/19) Pain in right shoulder (05/19/19) Pain in left shoulder (05/19/19) Stiffness of right shoulder, not elsewhere classified (05/19/19) Stiffness of left shoulder, not elsewhere classified (05/19/19) Impingement syndrome of right shoulder (05/19/19) Impingement syndrome of left shoulder (05/19/19) Abnormal posture (05/19/19) Strain of muscle(s) and tendon(s) of the rotator cuff of left shoulder, subsequent encounter (05/19/19) Physical Therapy Treatment Note PT-OP-A Visit Information Start: 05/01/19 15:22 Freq: Status: Active Protocol: Document 05/19/19 10:30 DCW (Rec: 05/19/19 11:21 DCW [id number]) Out-Patient Physical Therapy Visit Information Visit Information Visit Type Treatment Note Visit Start Time 10:30 Visit Stop Time 11:15 Total Visit Minutes 45 Visit Number 6 Number of DISK RECORDIST Visits 0 Evaluation Information Evaluation Date 05/01/19 PT-OP-B Current Condition Start: 05/01/19 15:22 Freq: Status: Active Protocol: Document 05/01/19 12:00 DCW (Rec: 05/01/19 17:53 DCW [id number]) Current Condition History of Current Condition Onset Date Three months Current Complaints Bilateral shoulder pain, immobility History of Current Condition Pt is a 74 year old male presenting with a three month history of left shoulder pain. Pt reports that he was reaching back to rty to put a backpack on, and suddenly got a tremendous pain in his left shoulder. Pt has since been experiencing increased pain with any backward reaching, like trying to put on a jacket or reaching back for a seat belt. Pt also notes pain lifting more than 25 lbs , or lifting his arm overhead. Pt additionally has noticed that a few weeks ago, his right shoulder has now been bothering him with lifting or overhead motion as well, although this does not appear to be associated with any one event. Pt reports he had Dr. Ugarte check his shoulder, and was told that it won't get better without PT, so here I am. Pt has been seen in this facility multiple times, most recently for pre- and post-op therapy for a TKA. Treatment Goals Patient/Caregiver Goals Improve strength and function of his shoulders so he can return to his workshop with no limitations. PT-OP-C Subjective Start: 05/01/19 15:22 Freq: Status: Active Protocol: Document 05/19/19 10:30 DCW (Rec: 05/19/19 11:21 DCW [id number]) OP-PT Subjective Patient Comments Patient Comments Pt reports that following his arthritis flair-up earlier this week, he has been experiencing pain inhis right hamstring. PT-OP-E Functional Tests Start: 05/01/19 15:22 Freq: Status: Active Protocol: Document 05/01/19 12:00 DCW (Rec: 05/01/19 17:53 DCW [id number]) Functional Tests Apley's Scratch Test Action 1- Left Lateral opposite shoulder Action 1- Right Posterior opposite shoulder Action 2- Left Occiput Action 2- Right T2 Action 3- Left L PSIS Action 3- Right T10 PT-OP-F Manual Assessment Start: 05/01/19 15:22 Freq: Status: Active Protocol: Document 05/01/19 12:00 DCW (Rec: 05/01/19 17:53 DCW [id number]) Manual Assessments Soft Tissue Assessment Soft Tissue Mobility Assessment Severe tone - left Subscap, tenderness to palpation 3/4: Wincing and withdraw Moderate tone - bilateral Upper Trap, tenderness to palpation 2/4: Pain with wincing PT-OP-J Posture/Palpation/Skin Start: 05/01/19 15:22 Freq: Status: Active Protocol: Document 05/01/19 12:00 DCW (Rec: 05/01/19 17:53 DCW [id number]) Posture Evaluation Position Standing Head/C-Spine Posture Forward Head Shoulder Posture (L) Rounded,(R) Rounded,(L) Forward,(R) Forward Scapula Posture (L) Protracted,(R) Protracted Comments Posture Comments Measurement from spine to medial boarder of scapula at level of scapular spine: L = 10 cm, R = 12 cm Measurement from spine to inferior angle of scapula: L = 13.5 cm, R= 15 cm PT-OP-K Range of Motion Start: 05/01/19 15:22 Freq: Status: Active Protocol: Document 05/01/19 12:00 DCW (Rec: 05/01/19 17:53 DCW [id number]) Shoulder Goniometric Range of Motion Shoulder Right Active Shoulder ROM WFL No Testing Position Sitting Flexion 115 Abduction 103 External Rotation at 0 degrees Abduction 66 Internal Rotation Behind Back (text) T10 Left Active Shoulder ROM WFL No Testing Position Sitting Flexion 91 Abduction 68 External Rotation at 0 degrees Abduction 40 Internal Rotation Behind Back (text) Left PSIS PT-OP-L Special Tests Start: 05/01/19 15:22 Freq: Status: Active Protocol: Document 05/01/19 12:00 DCW (Rec: 05/01/19 17:53 DCW [id number]) Special Tests Shoulder Special Tests Painful Arc Test Results L Positive Passive ER Rotator Cuff Test Results L Positive Lift-Off Rotator Cuff Test Results L Difficulty Adame Irving Impingement Test Results B Positive Empty Can Test Results B Positive Drop Arm Rotator Cuff Test Results Negative Belly Press Test Results L Positive PT-OP-M Strength Start: 05/01/19 15:22 Freq: Status: Active Protocol: Document 05/01/19 12:00 DCW (Rec: 05/01/19 17:53 DCW [id number]) Shoulder Strength Shoulder Manual Muscle Testing Right Flexion 2+ Poor+ Abduction (C5) 2+ Poor+ External Rotation 4- Good- Left Flexion 2+ Poor+ Abduction (C5) 2+ Poor+ External Rotation 3- Fair- Comments Pt unable to move arm through full ROM against gravity PT-OP-Q Treatments Start: 05/01/19 15:22 Freq: Status: Active Protocol: Document 05/19/19 10:30 DCW (Rec: 05/19/19 11:21 DCW [id number]) Cardio Equipment Upper Body Ergometer (UBE) Duration (Minutes) 6 RPM 60 Seat Position 15 Height 5 Therapeutic Exercises Supine Exercises Horizontal Adduction Supine Exercise Name Horizontal Adduction Side bilateral Resistance 4# R, 2# L Reps/Minutes x20 Supine Punch Supine Exercise Name Serratus punch Side bilateral Resistance 4# Reps/Minutes x20 Sidelying Exercises Abduction Sidelying Exercise Name Shoulder Abd Side bilateral Resistance 2# L, 4# R Reps/Minutes x20 Comments Pain-free External Rotation Sidelying Exercise Name Shoulder ER Side bilateral Resistance 4# Reps/Minutes x20 Comments Pain-free Sitting Exercises PROM Sitting Exercise Name Shoulder Flexion/Abduction Side bilateral Equipment Used Pulleys Standing Exercises IR Stretch Standing Exercise Name Shoulder IR Side left Equipment Used Pulleys Other Exercises Resisted Side-stepping Other Exercise Name UE resisted side-stepping on rail Resistance Green Equipment Used T-band Manual Therapy Treatment Soft Tissue Mobilization Subscap Body Location L Subscap Mobilization Type Strumming,Sustained Pressure, Trigger Point Release Joint Mobilizations 1 Joint L GH Direction Inferior Grade III Body Position Supine PT-OP-T Assessment and Plan Start: 05/01/19 15:22 Freq: Status: Active Protocol: Document 05/19/19 10:30 DCW (Rec: 05/19/19 11:21 DCW [id number]) Physical Therapy Assessment Impairments Impairments Activity Tolerance,Functional Mobility,Pain,Posture,ROM,Soft Tissue Mobility,Strength Goals Five Impairment Pt presents with increased forward shoulder posture Risk Reduction Counselor Goal (LTG) Measurement from spine to medial boarder of scapula to at most 8 cm bilaterally LTG Duration 07/01/19 Four Impairment Pt displays limited shoulder ROM bilaterally Risk Reduction Counselor Goal (LTG) Right active flexion and abduction to 140? Left active flexion and abduction to 110? LTG Duration 07/01/19 Three Impairment Pt unable to tolerate working in his workshop due to pain Short Term Goal (STG) Pt to demonstrate overhead positioning of his bilateral arms with no increased pain STG Duration 06/01/19 Half-Way Goal (LTG) Pt to lift >45# without an increase in symptoms in his shoulders LTG Duration 07/01/19 Two Impairment Pt has difficulty dressing himself secondary to shoulder pain Risk Reduction Counselor Goal (LTG) Pt to don/doff jacket without an increase in shoulder pain bilaterally LTG Duration 07/01/19 One Impairment Pt does not have appropriate home exercise program Short Term Goal (STG) Pt to be independent and compliant with an appropriate HEP STG Duration 06/01/19 Assessment Summary Assessment Pt improving with mobility and strength, however still feels like there's an ongoing issue. Pt tolerated treatment well, notable improvement in ROM throughout session. Physical Therapy Plan Frequency and Duration Frequency of Treatment 2x/Week Duration of Treatment Two months Plan of Care Start Date 05/01/19 Plan of Care End Date 07/01/19 Therapeutic Interventions Therapeutic Interventions Home Exercise Program,Joint Mobilizations,Manual Therapy, Neuromuscular Re-education, Patient/Caregiver Education, Self-Care/Home Management,Soft Tissue Mobilization, Therapeutic Activities, Therapeutic Exercises Modalities Cold Pack/Ice Massage,Electric Stimulation,Hot Packs Next Visit Focus/Plan Next Note Type Treatment Note Next Visit Plan Shoulder ROM, posture training , strengthening
--- NOTE | 2019-06-05 10:27 | PT.OTN ---
Current Diagnoses Other specific arthropathies, not elsewhere classified, left shoulder (06/05/19) Pain in right shoulder (06/05/19) Pain in left shoulder (06/05/19) Stiffness of right shoulder, not elsewhere classified (06/05/19) Stiffness of left shoulder, not elsewhere classified (06/05/19) Impingement syndrome of right shoulder (06/05/19) Impingement syndrome of left shoulder (06/05/19) Abnormal posture (06/05/19) Strain of muscle(s) and tendon(s) of the rotator cuff of left shoulder, subsequent encounter (06/05/19) Physical Therapy Treatment Note PT-OP-A Visit Information Start: 05/01/19 15:22 Freq: Status: Active Protocol: Document 06/05/19 09:42 DCW (Rec: 06/05/19 10:26 DCW [id number]) Out-Patient Physical Therapy Visit Information Visit Information Visit Type Treatment Note Visit Start Time 09:42 Visit Stop Time 10:27 Total Visit Minutes 45 Visit Number 7 Number of BOILERS INSPECTOR Visits 0 Evaluation Information Evaluation Date 05/01/19 PT-OP-B Current Condition Start: 05/01/19 15:22 Freq: Status: Active Protocol: Document 05/01/19 12:00 DCW (Rec: 05/01/19 17:53 DCW [id number]) Current Condition History of Current Condition Onset Date Three months Current Complaints Bilateral shoulder pain, immobility History of Current Condition Pt is a 74 year old male presenting with a three month history of left shoulder pain. Pt reports that he was reaching back to rty to put a backpack on, and suddenly got a tremendous pain in his left shoulder. Pt has since been experiencing increased pain with any backward reaching, like trying to put on a jacket or reaching back for a seat belt. Pt also notes pain lifting more than 25 lbs , or lifting his arm overhead. Pt additionally has noticed that a few weeks ago, his right shoulder has now been bothering him with lifting or overhead motion as well, although this does not appear to be associated with any one event. Pt reports he had Dr. Ugarte check his shoulder, and was told that it won't get better without PT, so here I am. Pt has been seen in this facility multiple times, most recently for pre- and post-op therapy for a TKA. Treatment Goals Patient/Caregiver Goals Improve strength and function of his shoulders so he can return to his workshop with no limitations. PT-OP-C Subjective Start: 05/01/19 15:22 Freq: Status: Active Protocol: Document 06/05/19 09:42 DCW (Rec: 06/05/19 10:26 DCW [id number]) OP-PT Subjective Patient Comments Patient Comments It's better in some respects, not so in others. I think I have more range of motion before I get to the pain, so that's nice. I find that if I lay on my left side at night, it doesn't take too long until I have quite a lot of pain in my shoulder. My right side is better, but still troublesome . I still feel weak picking things up. PT-OP-E Functional Tests Start: 05/01/19 15:22 Freq: Status: Active Protocol: Document 05/01/19 12:00 DCW (Rec: 05/01/19 17:53 DCW [id number]) Functional Tests Apley's Scratch Test Action 1- Left Lateral opposite shoulder Action 1- Right Posterior opposite shoulder Action 2- Left Occiput Action 2- Right T2 Action 3- Left L PSIS Action 3- Right T10 PT-OP-F Manual Assessment Start: 05/01/19 15:22 Freq: Status: Active Protocol: Document 05/01/19 12:00 DCW (Rec: 05/01/19 17:53 DCW [id number]) Manual Assessments Soft Tissue Assessment Soft Tissue Mobility Assessment Severe tone - left Subscap, tenderness to palpation 3/4: Wincing and withdraw Moderate tone - bilateral Upper Trap, tenderness to palpation 2/4: Pain with wincing PT-OP-J Posture/Palpation/Skin Start: 05/01/19 15:22 Freq: Status: Active Protocol: Document 05/01/19 12:00 DCW (Rec: 05/01/19 17:53 DCW [id number]) Posture Evaluation Position Standing Head/C-Spine Posture Forward Head Shoulder Posture (L) Rounded,(R) Rounded,(L) Forward,(R) Forward Scapula Posture (L) Protracted,(R) Protracted Comments Posture Comments Measurement from spine to medial boarder of scapula at level of scapular spine: L = 10 cm, R = 12 cm Measurement from spine to inferior angle of scapula: L = 13.5 cm, R= 15 cm PT-OP-K Range of Motion Start: 05/01/19 15:22 Freq: Status: Active Protocol: Document 05/01/19 12:00 DCW (Rec: 05/01/19 17:53 DCW [id number]) Shoulder Goniometric Range of Motion Shoulder Right Active Shoulder ROM WFL No Testing Position Sitting Flexion 115 Abduction 103 External Rotation at 0 degrees Abduction 66 Internal Rotation Behind Back (text) T10 Left Active Shoulder ROM WFL No Testing Position Sitting Flexion 91 Abduction 68 External Rotation at 0 degrees Abduction 40 Internal Rotation Behind Back (text) Left PSIS PT-OP-L Special Tests Start: 05/01/19 15:22 Freq: Status: Active Protocol: Document 05/01/19 12:00 DCW (Rec: 05/01/19 17:53 DCW [id number]) Special Tests Shoulder Special Tests Painful Arc Test Results L Positive Passive ER Rotator Cuff Test Results L Positive Lift-Off Rotator Cuff Test Results L Difficulty Adame Irving Impingement Test Results B Positive Empty Can Test Results B Positive Drop Arm Rotator Cuff Test Results Negative Belly Press Test Results L Positive PT-OP-M Strength Start: 05/01/19 15:22 Freq: Status: Active Protocol: Document 05/01/19 12:00 DCW (Rec: 05/01/19 17:53 DCW [id number]) Shoulder Strength Shoulder Manual Muscle Testing Right Flexion 2+ Poor+ Abduction (C5) 2+ Poor+ External Rotation 4- Good- Left Flexion 2+ Poor+ Abduction (C5) 2+ Poor+ External Rotation 3- Fair- Comments Pt unable to move arm through full ROM against gravity PT-OP-Q Treatments Start: 05/01/19 15:22 Freq: Status: Active Protocol: Document 06/05/19 09:42 DCW (Rec: 06/05/19 10:26 DCW [id number]) Cardio Equipment Upper Body Ergometer (UBE) Duration (Minutes) 6 RPM 60 Seat Position 15 Height 5 Therapeutic Exercises Supine Exercises Horizontal Adduction Supine Exercise Name Horizontal Adduction Side bilateral Resistance 4# R, 2# L Reps/Minutes x20 Supine Punch Supine Exercise Name Serratus punch Side bilateral Resistance 4# Reps/Minutes x20 Sitting Exercises PROM Sitting Exercise Name Shoulder Flexion/Abduction Side bilateral Equipment Used Pulleys Standing Exercises Shoulder Press Standing Exercise Name Shoulder Press Side bilateral Resistance 3# Flexion Standing Exercise Name Shoulder Flexion Side bilateral Resistance 3# Abduction Standing Exercise Name Shoulder Abduction Side bilateral Resistance 3# IR Stretch Standing Exercise Name Shoulder IR Side left Equipment Used Pulleys Other Exercises Resisted Side-stepping Other Exercise Name UE resisted side-stepping on rail Resistance Green Equipment Used T-band Manual Therapy Treatment Soft Tissue Mobilization Subscap Body Location L Subscap Mobilization Type Strumming,Sustained Pressure, Trigger Point Release Joint Mobilizations 1 Joint L GH Direction Inferior Grade III Body Position Supine PT-OP-T Assessment and Plan Start: 05/01/19 15:22 Freq: Status: Active Protocol: Document 06/05/19 09:42 DCW (Rec: 06/05/19 10:26 DCW [id number]) Physical Therapy Assessment Impairments Impairments Activity Tolerance,Functional Mobility,Pain,Posture,ROM,Soft Tissue Mobility,Strength Goals Five Impairment Pt presents with increased forward shoulder posture Box Sealing Inspector Goal (LTG) Measurement from spine to medial boarder of scapula to at most 8 cm bilaterally LTG Duration 07/01/19 Four Impairment Pt displays limited shoulder ROM bilaterally [facility]ci Goal (LTG) Right active flexion and abduction to 140? Left active flexion and abduction to 110? LTG Duration 07/01/19 Three Impairment Pt unable to tolerate working in his workshop due to pain Short Term Goal (STG) Pt to demonstrate overhead positioning of his bilateral arms with no increased pain STG Duration 06/01/19 [facility]ci Goal (LTG) Pt to lift >45# without an increase in symptoms in his shoulders LTG Duration 07/01/19 Two Impairment Pt has difficulty dressing himself secondary to shoulder pain Box Sealing Inspector Goal (LTG) Pt to don/doff jacket without an increase in shoulder pain bilaterally LTG Duration 07/01/19 One Impairment Pt does not have appropriate home exercise program Short Term Goal (STG) Pt to be independent and compliant with an appropriate HEP STG Duration 06/01/19 Assessment Summary Assessment Added a few additional strengthening exercises today to help advance pt's goal of strengthening 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 Physical Therapy Plan Frequency and Duration Frequency of Treatment 2x/Week Duration of Treatment Two months Plan of Care Start Date 05/01/19 Plan of Care End Date 07/01/19 Therapeutic Interventions Therapeutic Interventions Home Exercise Program,Joint Mobilizations,Manual Therapy, Neuromuscular Re-education, Patient/Caregiver Education, Self-Care/Home Management,Soft Tissue Mobilization, Therapeutic Activities, Therapeutic Exercises Modalities Cold Pack/Ice Massage,Electric Stimulation,Hot Packs Next Visit Focus/Plan Next Note Type Treatment Note Next Visit Plan Shoulder ROM, posture training , strengthening
--- NOTE | 2019-06-08 12:44 | PT.OTN ---
Current Diagnoses Other specific arthropathies, not elsewhere classified, left shoulder (06/08/19) Pain in right shoulder (06/08/19) Pain in left shoulder (06/08/19) Stiffness of right shoulder, not elsewhere classified (06/08/19) Stiffness of left shoulder, not elsewhere classified (06/08/19) Impingement syndrome of right shoulder (06/08/19) Impingement syndrome of left shoulder (06/08/19) Abnormal posture (06/08/19) Strain of muscle(s) and tendon(s) of the rotator cuff of left shoulder, subsequent encounter (06/08/19) Physical Therapy Treatment Note PT-OP-A Visit Information Start: 05/01/19 15:22 Freq: Status: Active Protocol: Document 06/08/19 12:00 DCW (Rec: 06/08/19 12:44 DCW [id number]) Out-Patient Physical Therapy Visit Information Visit Information Visit Type Treatment Note Visit Start Time 12:00 Visit Stop Time 12:45 Total Visit Minutes 45 Visit Number 8 Number of ACID CRANE OPERATOR Visits 0 Evaluation Information Evaluation Date 05/01/19 PT-OP-B Current Condition Start: 05/01/19 15:22 Freq: Status: Active Protocol: Document 05/01/19 12:00 DCW (Rec: 05/01/19 17:53 DCW [id number]) Current Condition History of Current Condition Onset Date Three months Current Complaints Bilateral shoulder pain, immobility History of Current Condition Pt is a 74 year old male presenting with a three month history of left shoulder pain. Pt reports that he was reaching back to rty to put a backpack on, and suddenly got a tremendous pain in his left shoulder. Pt has since been experiencing increased pain with any backward reaching, like trying to put on a jacket or reaching back for a seat belt. Pt also notes pain lifting more than 25 lbs , or lifting his arm overhead. Pt additionally has noticed that a few weeks ago, his right shoulder has now been bothering him with lifting or overhead motion as well, although this does not appear to be associated with any one event. Pt reports he had Dr. Ugarte check his shoulder, and was told that it won't get better without PT, so here I am. Pt has been seen in this facility multiple times, most recently for pre- and post-op therapy for a TKA. Treatment Goals Patient/Caregiver Goals Improve strength and function of his shoulders so he can return to his workshop with no limitations. PT-OP-C Subjective Start: 05/01/19 15:22 Freq: Status: Active Protocol: Document 06/08/19 12:00 DCW (Rec: 06/08/19 12:44 DCW [id number]) OP-PT Subjective Patient Comments Patient Comments Pt fell down last night by tripping on a vacuum loom cleaner cord. Bruising, edema, and stiffness along his right knee , ankle, and left wrist. PT-OP-E Functional Tests Start: 05/01/19 15:22 Freq: Status: Active Protocol: Document 05/01/19 12:00 DCW (Rec: 05/01/19 17:53 DCW [id number]) Functional Tests Apley's Scratch Test Action 1- Left Lateral opposite shoulder Action 1- Right Posterior opposite shoulder Action 2- Left Occiput Action 2- Right T2 Action 3- Left L PSIS Action 3- Right T10 PT-OP-F Manual Assessment Start: 05/01/19 15:22 Freq: Status: Active Protocol: Document 05/01/19 12:00 DCW (Rec: 05/01/19 17:53 DCW [id number]) Manual Assessments Soft Tissue Assessment Soft Tissue Mobility Assessment Severe tone - left Subscap, tenderness to palpation 3/4: Wincing and withdraw Moderate tone - bilateral Upper Trap, tenderness to palpation 2/4: Pain with wincing PT-OP-J Posture/Palpation/Skin Start: 05/01/19 15:22 Freq: Status: Active Protocol: Document 05/01/19 12:00 DCW (Rec: 05/01/19 17:53 DCW [id number]) Posture Evaluation Position Standing Head/C-Spine Posture Forward Head Shoulder Posture (L) Rounded,(R) Rounded,(L) Forward,(R) Forward Scapula Posture (L) Protracted,(R) Protracted Comments Posture Comments Measurement from spine to medial boarder of scapula at level of scapular spine: L = 10 cm, R = 12 cm Measurement from spine to inferior angle of scapula: L = 13.5 cm, R= 15 cm PT-OP-K Range of Motion Start: 05/01/19 15:22 Freq: Status: Active Protocol: Document 05/01/19 12:00 DCW (Rec: 05/01/19 17:53 DCW [id number]) Shoulder Goniometric Range of Motion Shoulder Right Active Shoulder ROM WFL No Testing Position Sitting Flexion 115 Abduction 103 External Rotation at 0 degrees Abduction 66 Internal Rotation Behind Back (text) T10 Left Active Shoulder ROM WFL No Testing Position Sitting Flexion 91 Abduction 68 External Rotation at 0 degrees Abduction 40 Internal Rotation Behind Back (text) Left PSIS PT-OP-L Special Tests Start: 05/01/19 15:22 Freq: Status: Active Protocol: Document 05/01/19 12:00 DCW (Rec: 05/01/19 17:53 DCW [id number]) Special Tests Shoulder Special Tests Painful Arc Test Results L Positive Passive ER Rotator Cuff Test Results L Positive Lift-Off Rotator Cuff Test Results L Difficulty Adame Irving Impingement Test Results B Positive Empty Can Test Results B Positive Drop Arm Rotator Cuff Test Results Negative Belly Press Test Results L Positive PT-OP-M Strength Start: 05/01/19 15:22 Freq: Status: Active Protocol: Document 05/01/19 12:00 DCW (Rec: 05/01/19 17:53 DCW [id number]) Shoulder Strength Shoulder Manual Muscle Testing Right Flexion 2+ Poor+ Abduction (C5) 2+ Poor+ External Rotation 4- Good- Left Flexion 2+ Poor+ Abduction (C5) 2+ Poor+ External Rotation 3- Fair- Comments Pt unable to move arm through full ROM against gravity PT-OP-Q Treatments Start: 05/01/19 15:22 Freq: Status: Active Protocol: Document 06/08/19 12:00 DCW (Rec: 06/08/19 12:44 DCW [id number]) Therapeutic Exercises Sitting Exercises PROM Sitting Exercise Name Shoulder Flexion/Abduction Side bilateral Equipment Used Pulleys Manual Therapy Treatment Soft Tissue Mobilization Subscap Body Location L Subscap Mobilization Type Strumming,Sustained Pressure, Trigger Point Release Joint Mobilizations 1 Joint L GH Direction Inferior Grade III Body Position Supine PT-OP-T Assessment and Plan Start: 05/01/19 15:22 Freq: Status: Active Protocol: Document 06/08/19 12:00 DCW (Rec: 06/08/19 12:44 DCW [id number]) Physical Therapy Assessment Impairments Impairments Activity Tolerance,Functional Mobility,Pain,Posture,ROM,Soft Tissue Mobility,Strength Goals Five Impairment Pt presents with increased forward shoulder posture Mig Tig Welder Goal (LTG) Measurement from spine to medial boarder of scapula to at most 8 cm bilaterally LTG Duration 07/01/19 Four Impairment Pt displays limited shoulder ROM bilaterally Mig Tig Welder Goal (LTG) Right active flexion and abduction to 140? Left active flexion and abduction to 110? LTG Duration 07/01/19 Three Impairment Pt unable to tolerate working in his workshop due to pain Short Term Goal (STG) Pt to demonstrate overhead positioning of his bilateral arms with no increased pain STG Duration 06/01/19 Residential Goal (LTG) Pt to lift >45# without an increase in symptoms in his shoulders LTG Duration 07/01/19 Two Impairment Pt has difficulty dressing himself secondary to shoulder pain Mig Tig Welder Goal (LTG) Pt to don/doff jacket without an increase in shoulder pain bilaterally LTG Duration 07/01/19 One Impairment Pt does not have appropriate home exercise program Short Term Goal (STG) Pt to be independent and compliant with an appropriate HEP STG Duration 06/01/19 Assessment Summary Assessment Assessed pt's shoulder following fall, appears to have not been further injured. Pt was having a lot of increased wrist and ankle pain , recommended he get them checked out to ensure no broken bones. Physical Therapy Plan Frequency and Duration Frequency of Treatment 2x/Week Duration of Treatment Two months Plan of Care Start Date 05/01/19 Plan of Care End Date 07/01/19 Therapeutic Interventions Therapeutic Interventions Home Exercise Program,Joint Mobilizations,Manual Therapy, Neuromuscular Re-education, Patient/Caregiver Education, Self-Care/Home Management,Soft Tissue Mobilization, Therapeutic Activities, Therapeutic Exercises Modalities Cold Pack/Ice Massage,Electric Stimulation,Hot Packs Next Visit Focus/Plan Next Note Type Treatment Note Next Visit Plan Shoulder ROM, posture training , strengthening
--- NOTE | 2019-06-12 10:27 | PT.OTN ---
Current Diagnoses Other specific arthropathies, not elsewhere classified, left shoulder (06/12/19) Pain in right shoulder (06/12/19) Pain in left shoulder (06/12/19) Stiffness of right shoulder, not elsewhere classified (06/12/19) Stiffness of left shoulder, not elsewhere classified (06/12/19) Impingement syndrome of right shoulder (06/12/19) Impingement syndrome of left shoulder (06/12/19) Abnormal posture (06/12/19) Strain of muscle(s) and tendon(s) of the rotator cuff of left shoulder, subsequent encounter (06/12/19) Physical Therapy Treatment Note PT-OP-A Visit Information Start: 05/01/19 15:22 Freq: Status: Active Protocol: Document 06/12/19 09:45 DCW (Rec: 06/12/19 10:27 DCW [id number]) Out-Patient Physical Therapy Visit Information Visit Information Visit Type Treatment Note Visit Start Time 09:45 Visit Stop Time 10:30 Total Visit Minutes 45 Visit Number 9 Number of STRICKLER ATTENDANT Visits 0 Evaluation Information Evaluation Date 05/01/19 PT-OP-B Current Condition Start: 05/01/19 15:22 Freq: Status: Active Protocol: Document 05/01/19 12:00 DCW (Rec: 05/01/19 17:53 DCW [id number]) Current Condition History of Current Condition Onset Date Three months Current Complaints Bilateral shoulder pain, immobility History of Current Condition Pt is a 74 year old male presenting with a three month history of left shoulder pain. Pt reports that he was reaching back to rty to put a backpack on, and suddenly got a tremendous pain in his left shoulder. Pt has since been experiencing increased pain with any backward reaching, like trying to put on a jacket or reaching back for a seat belt. Pt also notes pain lifting more than 25 lbs , or lifting his arm overhead. Pt additionally has noticed that a few weeks ago, his right shoulder has now been bothering him with lifting or overhead motion as well, although this does not appear to be associated with any one event. Pt reports he had Dr. Ugarte check his shoulder, and was told that it won't get better without PT, so here I am. Pt has been seen in this facility multiple times, most recently for pre- and post-op therapy for a TKA. Treatment Goals Patient/Caregiver Goals Improve strength and function of his shoulders so he can return to his workshop with no limitations. PT-OP-C Subjective Start: 05/01/19 15:22 Freq: Status: Active Protocol: Document 06/12/19 09:45 DCW (Rec: 06/12/19 10:27 DCW [id number]) OP-PT Subjective Patient Comments Patient Comments Pt reports he followed up with the ER after his PT appointment, but feels he was not very well taken care, waited around for 3.5 hours, and after getting his foot and ankle x-ray taken, was never informed of any results. PT-OP-E Functional Tests Start: 05/01/19 15:22 Freq: Status: Active Protocol: Document 05/01/19 12:00 DCW (Rec: 05/01/19 17:53 DCW [id number]) Functional Tests Apley's Scratch Test Action 1- Left Lateral opposite shoulder Action 1- Right Posterior opposite shoulder Action 2- Left Occiput Action 2- Right T2 Action 3- Left L PSIS Action 3- Right T10 PT-OP-F Manual Assessment Start: 05/01/19 15:22 Freq: Status: Active Protocol: Document 05/01/19 12:00 DCW (Rec: 05/01/19 17:53 DCW [id number]) Manual Assessments Soft Tissue Assessment Soft Tissue Mobility Assessment Severe tone - left Subscap, tenderness to palpation 3/4: Wincing and withdraw Moderate tone - bilateral Upper Trap, tenderness to palpation 2/4: Pain with wincing PT-OP-J Posture/Palpation/Skin Start: 05/01/19 15:22 Freq: Status: Active Protocol: Document 05/01/19 12:00 DCW (Rec: 05/01/19 17:53 DCW [id number]) Posture Evaluation Position Standing Head/C-Spine Posture Forward Head Shoulder Posture (L) Rounded,(R) Rounded,(L) Forward,(R) Forward Scapula Posture (L) Protracted,(R) Protracted Comments Posture Comments Measurement from spine to medial boarder of scapula at level of scapular spine: L = 10 cm, R = 12 cm Measurement from spine to inferior angle of scapula: L = 13.5 cm, R= 15 cm PT-OP-K Range of Motion Start: 05/01/19 15:22 Freq: Status: Active Protocol: Document 05/01/19 12:00 DCW (Rec: 05/01/19 17:53 DCW [id number]) Shoulder Goniometric Range of Motion Shoulder Right Active Shoulder ROM WFL No Testing Position Sitting Flexion 115 Abduction 103 External Rotation at 0 degrees Abduction 66 Internal Rotation Behind Back (text) T10 Left Active Shoulder ROM WFL No Testing Position Sitting Flexion 91 Abduction 68 External Rotation at 0 degrees Abduction 40 Internal Rotation Behind Back (text) Left PSIS PT-OP-L Special Tests Start: 05/01/19 15:22 Freq: Status: Active Protocol: Document 05/01/19 12:00 DCW (Rec: 05/01/19 17:53 DCW [id number]) Special Tests Shoulder Special Tests Painful Arc Test Results L Positive Passive ER Rotator Cuff Test Results L Positive Lift-Off Rotator Cuff Test Results L Difficulty Adame Irving Impingement Test Results B Positive Empty Can Test Results B Positive Drop Arm Rotator Cuff Test Results Negative Belly Press Test Results L Positive PT-OP-M Strength Start: 05/01/19 15:22 Freq: Status: Active Protocol: Document 05/01/19 12:00 DCW (Rec: 05/01/19 17:53 DCW [id number]) Shoulder Strength Shoulder Manual Muscle Testing Right Flexion 2+ Poor+ Abduction (C5) 2+ Poor+ External Rotation 4- Good- Left Flexion 2+ Poor+ Abduction (C5) 2+ Poor+ External Rotation 3- Fair- Comments Pt unable to move arm through full ROM against gravity PT-OP-Q Treatments Start: 05/01/19 15:22 Freq: Status: Active Protocol: Document 06/12/19 09:45 DCW (Rec: 06/12/19 10:27 DCW [id number]) Cardio Equipment Upper Body Ergometer (UBE) Duration (Minutes) 6 RPM 60 Seat Position 15 Height 5 Therapeutic Exercises Supine Exercises Horizontal Adduction Supine Exercise Name Horizontal Adduction Side bilateral Resistance 4# R, 2# L Reps/Minutes x20 Supine Punch Supine Exercise Name Serratus punch Side bilateral Resistance 4# Reps/Minutes x20 Sitting Exercises PROM Sitting Exercise Name Shoulder Flexion/Abduction Side bilateral Equipment Used Pulleys Standing Exercises Shoulder Press Standing Exercise Name Shoulder Press Side bilateral Resistance 2# Flexion Standing Exercise Name Shoulder Flexion Side bilateral Resistance 3# Abduction Standing Exercise Name Shoulder Abduction Side bilateral Resistance 3# IR Stretch Standing Exercise Name Shoulder IR Side left Equipment Used Pulleys Other Exercises Resisted Side-stepping Other Exercise Name UE resisted side-stepping on rail Resistance Green Equipment Used T-band Manual Therapy Treatment Soft Tissue Mobilization Subscap Body Location L Subscap Mobilization Type Strumming,Sustained Pressure, Trigger Point Release Joint Mobilizations 1 Joint L GH Direction Inferior Grade III Body Position Supine PT-OP-T Assessment and Plan Start: 05/01/19 15:22 Freq: Status: Active Protocol: Document 06/12/19 09:45 DCW (Rec: 06/12/19 10:27 DCW [id number]) Physical Therapy Assessment Impairments Impairments Activity Tolerance,Functional Mobility,Pain,Posture,ROM,Soft Tissue Mobility,Strength Goals Five Impairment Pt presents with increased forward shoulder posture Snf Goal (LTG) Measurement from spine to medial boarder of scapula to at most 8 cm bilaterally LTG Duration 07/01/19 Four Impairment Pt displays limited shoulder ROM bilaterally Snf Goal (LTG) Right active flexion and abduction to 140? Left active flexion and abduction to 110? LTG Duration 07/01/19 Three Impairment Pt unable to tolerate working in his workshop due to pain Short Term Goal (STG) Pt to demonstrate overhead positioning of his bilateral arms with no increased pain STG Duration 06/01/19 Director Learning Services Goal (LTG) Pt to lift >45# without an increase in symptoms in his shoulders LTG Duration 07/01/19 Two Impairment Pt has difficulty dressing himself secondary to shoulder pain Snf Goal (LTG) Pt to don/doff jacket without an increase in shoulder pain bilaterally LTG Duration 07/01/19 One Impairment Pt does not have appropriate home exercise program Short Term Goal (STG) Pt to be independent and compliant with an appropriate HEP STG Duration 06/01/19 Assessment Summary Assessment Pt still fairly sore and limping following his fall last week, but able to fully participate in his therapy today, despite wrist pain and immobility. Physical Therapy Plan Frequency and Duration Frequency of Treatment 2x/Week Duration of Treatment Two months Plan of Care Start Date 05/01/19 Plan of Care End Date 07/01/19 Therapeutic Interventions Therapeutic Interventions Home Exercise Program,Joint Mobilizations,Manual Therapy, Neuromuscular Re-education, Patient/Caregiver Education, Self-Care/Home Management,Soft Tissue Mobilization, Therapeutic Activities, Therapeutic Exercises Modalities Cold Pack/Ice Massage,Electric Stimulation,Hot Packs Next Visit Focus/Plan Next Note Type Treatment Note Next Visit Plan Shoulder ROM, posture training , strengthening
--- NOTE | 2019-06-19 10:29 | PT.OTN ---
Current Diagnoses Other specific arthropathies, not elsewhere classified, left shoulder (06/19/19) Pain in right shoulder (06/19/19) Pain in left shoulder (06/19/19) Stiffness of right shoulder, not elsewhere classified (06/19/19) Stiffness of left shoulder, not elsewhere classified (06/19/19) Impingement syndrome of right shoulder (06/19/19) Impingement syndrome of left shoulder (06/19/19) Abnormal posture (06/19/19) Strain of muscle(s) and tendon(s) of the rotator cuff of left shoulder, subsequent encounter (06/19/19) Physical Therapy Treatment Note PT-OP-A Visit Information Start: 05/01/19 15:22 Freq: Status: Active Protocol: Document 06/19/19 09:45 DCW (Rec: 06/19/19 10:29 DCW [id number]) Out-Patient Physical Therapy Visit Information Visit Information Visit Type Treatment Note Visit Start Time 09:45 Visit Stop Time 10:30 Total Visit Minutes 45 Visit Number 10 Number of SPEECH CORRECTION ASSISTANT Visits 0 Evaluation Information Evaluation Date 05/01/19 PT-OP-B Current Condition Start: 05/01/19 15:22 Freq: Status: Active Protocol: Document 05/01/19 12:00 DCW (Rec: 05/01/19 17:53 DCW [id number]) Current Condition History of Current Condition Onset Date Three months Current Complaints Bilateral shoulder pain, immobility History of Current Condition Pt is a 74 year old male presenting with a three month history of left shoulder pain. Pt reports that he was reaching back to rty to put a backpack on, and suddenly got a tremendous pain in his left shoulder. Pt has since been experiencing increased pain with any backward reaching, like trying to put on a jacket or reaching back for a seat belt. Pt also notes pain lifting more than 25 lbs , or lifting his arm overhead. Pt additionally has noticed that a few weeks ago, his right shoulder has now been bothering him with lifting or overhead motion as well, although this does not appear to be associated with any one event. Pt reports he had Dr. Ugarte check his shoulder, and was told that it won't get better without PT, so here I am. Pt has been seen in this facility multiple times, most recently for pre- and post-op therapy for a TKA. Treatment Goals Patient/Caregiver Goals Improve strength and function of his shoulders so he can return to his workshop with no limitations. PT-OP-C Subjective Start: 05/01/19 15:22 Freq: Status: Active Protocol: Document 06/19/19 09:45 DCW (Rec: 06/19/19 10:29 DCW [id number]) OP-PT Subjective Patient Comments Patient Comments Pt reports he has been in [place] for a [employer] meeting since his last visit. Feels he is moving a little better, wrist is improving slowly, but I still find things like putting my bag up in the overhead compartment, my rotator cuff was screaming. PT-OP-E Functional Tests Start: 05/01/19 15:22 Freq: Status: Active Protocol: Document 05/01/19 12:00 DCW (Rec: 05/01/19 17:53 DCW [id number]) Functional Tests Apley's Scratch Test Action 1- Left Lateral opposite shoulder Action 1- Right Posterior opposite shoulder Action 2- Left Occiput Action 2- Right T2 Action 3- Left L PSIS Action 3- Right T10 PT-OP-F Manual Assessment Start: 05/01/19 15:22 Freq: Status: Active Protocol: Document 05/01/19 12:00 DCW (Rec: 05/01/19 17:53 DCW [id number]) Manual Assessments Soft Tissue Assessment Soft Tissue Mobility Assessment Severe tone - left Subscap, tenderness to palpation 3/4: Wincing and withdraw Moderate tone - bilateral Upper Trap, tenderness to palpation 2/4: Pain with wincing PT-OP-J Posture/Palpation/Skin Start: 05/01/19 15:22 Freq: Status: Active Protocol: Document 05/01/19 12:00 DCW (Rec: 05/01/19 17:53 DCW [id number]) Posture Evaluation Position Standing Head/C-Spine Posture Forward Head Shoulder Posture (L) Rounded,(R) Rounded,(L) Forward,(R) Forward Scapula Posture (L) Protracted,(R) Protracted Comments Posture Comments Measurement from spine to medial boarder of scapula at level of scapular spine: L = 10 cm, R = 12 cm Measurement from spine to inferior angle of scapula: L = 13.5 cm, R= 15 cm PT-OP-K Range of Motion Start: 05/01/19 15:22 Freq: Status: Active Protocol: Document 05/01/19 12:00 DCW (Rec: 05/01/19 17:53 DCW [id number]) Shoulder Goniometric Range of Motion Shoulder Right Active Shoulder ROM WFL No Testing Position Sitting Flexion 115 Abduction 103 External Rotation at 0 degrees Abduction 66 Internal Rotation Behind Back (text) T10 Left Active Shoulder ROM WFL No Testing Position Sitting Flexion 91 Abduction 68 External Rotation at 0 degrees Abduction 40 Internal Rotation Behind Back (text) Left PSIS PT-OP-L Special Tests Start: 05/01/19 15:22 Freq: Status: Active Protocol: Document 05/01/19 12:00 DCW (Rec: 05/01/19 17:53 DCW [id number]) Special Tests Shoulder Special Tests Painful Arc Test Results L Positive Passive ER Rotator Cuff Test Results L Positive Lift-Off Rotator Cuff Test Results L Difficulty Adame Irving Impingement Test Results B Positive Empty Can Test Results B Positive Drop Arm Rotator Cuff Test Results Negative Belly Press Test Results L Positive PT-OP-M Strength Start: 05/01/19 15:22 Freq: Status: Active Protocol: Document 05/01/19 12:00 DCW (Rec: 05/01/19 17:53 DCW [id number]) Shoulder Strength Shoulder Manual Muscle Testing Right Flexion 2+ Poor+ Abduction (C5) 2+ Poor+ External Rotation 4- Good- Left Flexion 2+ Poor+ Abduction (C5) 2+ Poor+ External Rotation 3- Fair- Comments Pt unable to move arm through full ROM against gravity PT-OP-Q Treatments Start: 05/01/19 15:22 Freq: Status: Active Protocol: Document 06/19/19 09:45 DCW (Rec: 06/19/19 10:29 DCW [id number]) Cardio Equipment Upper Body Ergometer (UBE) Duration (Minutes) 6 RPM 60 Seat Position 15 Height 5 Therapeutic Exercises Supine Exercises Horizontal Adduction Supine Exercise Name Horizontal Adduction Side bilateral Resistance 4# R, 2# L Reps/Minutes x20 Supine Punch Supine Exercise Name Serratus punch Side bilateral Resistance 4# Reps/Minutes x20 Prone Exercises Extension Prone Exercise Name Prone Extension Side bilateral Resistance 2# Horizontal Abduction Prone Exercise Name Prone H Abduction Side bilateral Resistance 2# Sitting Exercises PROM Sitting Exercise Name Shoulder Flexion/Abduction Side bilateral Equipment Used Pulleys Standing Exercises Flexion Standing Exercise Name Shoulder Flexion Side bilateral Resistance 3# Abduction Standing Exercise Name Shoulder Abduction Side bilateral Resistance 3# IR Stretch Standing Exercise Name Shoulder IR Side left Equipment Used Pulleys PT-OP-T Assessment and Plan Start: 05/01/19 15:22 Freq: Status: Active Protocol: Document 06/19/19 09:45 DCW (Rec: 06/19/19 10:29 DCW [id number]) Physical Therapy Assessment Goals Five Impairment Pt presents with increased forward shoulder posture Water Valve Repairer Goal (LTG) Measurement from spine to medial boarder of scapula to at most 8 cm bilaterally LTG Duration 07/01/19 Four Impairment Pt displays limited shoulder ROM bilaterally Care Home Goal (LTG) Right active flexion and abduction to 140? Left active flexion and abduction to 110? LTG Duration 07/01/19 Three Impairment Pt unable to tolerate working in his workshop due to pain Short Term Goal (STG) Pt to demonstrate overhead positioning of his bilateral arms with no increased pain STG Duration 06/01/19 Care Home Goal (LTG) Pt to lift >45# without an increase in symptoms in his shoulders LTG Duration 07/01/19 Two Impairment Pt has difficulty dressing himself secondary to shoulder pain Water Valve Repairer Goal (LTG) Pt to don/doff jacket without an increase in shoulder pain bilaterally LTG Duration 07/01/19 One Impairment Pt does not have appropriate home exercise program Short Term Goal (STG) Pt to be independent and compliant with an appropriate HEP STG Duration 06/01/19 Assessment Summary Assessment Pt able to tolerate movement better today without as much increased pain in his ankle and wrist following his fall two weeks ago. Pt PROM much improved compared to initial evaluation, pt still experiencing pain in lateral arm with overhead activities. Physical Therapy Plan Frequency and Duration Frequency of Treatment 2x/Week Duration of Treatment Two months Plan of Care Start Date 05/01/19 Plan of Care End Date 07/01/19 Therapeutic Interventions Therapeutic Interventions Home Exercise Program,Joint Mobilizations,Manual Therapy, Neuromuscular Re-education, Patient/Caregiver Education, Self-Care/Home Management,Soft Tissue Mobilization, Therapeutic Activities, Therapeutic Exercises Modalities Cold Pack/Ice Massage,Electric Stimulation,Hot Packs Next Visit Focus/Plan Next Note Type Treatment Note Next Visit Plan Shoulder ROM, posture training , strengthening
--- NOTE | 2019-06-21 12:04 | PT.OTN ---
Current Diagnoses Other specific arthropathies, not elsewhere classified, left shoulder (06/21/19) Pain in right shoulder (06/21/19) Pain in left shoulder (06/21/19) Stiffness of right shoulder, not elsewhere classified (06/21/19) Stiffness of left shoulder, not elsewhere classified (06/21/19) Impingement syndrome of right shoulder (06/21/19) Impingement syndrome of left shoulder (06/21/19) Abnormal posture (06/21/19) Strain of muscle(s) and tendon(s) of the rotator cuff of left shoulder, subsequent encounter (06/21/19) Physical Therapy Treatment Note PT-OP-A Visit Information Start: 05/01/19 15:22 Freq: Status: Active Protocol: Document 06/21/19 11:15 DCW (Rec: 06/21/19 12:04 DCW [id number]) Out-Patient Physical Therapy Visit Information Visit Information Visit Type Treatment Note Visit Note 07/14 Visit Start Time 11:15 Visit Stop Time 12:00 Total Visit Minutes 45 Visit Number 11 Number of CAFE OR RESTAURANT MANAGER Visits 0 Evaluation Information Evaluation Date 05/01/19 PT-OP-B Current Condition Start: 05/01/19 15:22 Freq: Status: Active Protocol: Document 05/01/19 12:00 DCW (Rec: 05/01/19 17:53 DCW [id number]) Current Condition History of Current Condition Onset Date Three months Current Complaints Bilateral shoulder pain, immobility History of Current Condition Pt is a 74 year old male presenting with a three month history of left shoulder pain. Pt reports that he was reaching back to y to put a backpack on, and suddenly got a tremendous pain in his left shoulder. Pt has since been experiencing increased pain with any backward reaching, like trying to put on a jacket or reaching back for a seat belt. Pt also notes pain lifting more than 25 lbs , or lifting his arm overhead. Pt additionally has noticed that a few weeks ago, his right shoulder has now been bothering him with lifting or overhead motion as well, although this does not appear to be associated with any one event. Pt reports he had Dr. Ugarte check his shoulder, and was told that it won't get better without PT, so here I am. Pt has been seen in this facility multiple times, most recently for pre- and post-op therapy for a TKA. Treatment Goals Patient/Caregiver Goals Improve strength and function of his shoulders so he can return to his workshop with no limitations. PT-OP-C Subjective Start: 05/01/19 15:22 Freq: Status: Active Protocol: Document 06/21/19 11:15 DCW (Rec: 06/21/19 12:04 DCW [id number]) OP-PT Subjective Patient Comments Patient Comments Pt notes that he saw his PCP, who was worried that his foot is infected following his fall two weeks ago, and is worried about the potential of infection in his TKA. Pt has been put on a 10-day course of antibiotics, on day #2 now, and reports he thinks there has been a difference. PT-OP-E Functional Tests Start: 05/01/19 15:22 Freq: Status: Active Protocol: Document 05/01/19 12:00 DCW (Rec: 05/01/19 17:53 DCW [id number]) Functional Tests Apley's Scratch Test Action 1- Left Lateral opposite shoulder Action 1- Right Posterior opposite shoulder Action 2- Left Occiput Action 2- Right T2 Action 3- Left L PSIS Action 3- Right T10 PT-OP-F Manual Assessment Start: 05/01/19 15:22 Freq: Status: Active Protocol: Document 05/01/19 12:00 DCW (Rec: 05/01/19 17:53 DCW [id number]) Manual Assessments Soft Tissue Assessment Soft Tissue Mobility Assessment Severe tone - left Subscap, tenderness to palpation 3/4: Wincing and withdraw Moderate tone - bilateral Upper Trap, tenderness to palpation 2/4: Pain with wincing PT-OP-J Posture/Palpation/Skin Start: 05/01/19 15:22 Freq: Status: Active Protocol: Document 05/01/19 12:00 DCW (Rec: 05/01/19 17:53 DCW [id number]) Posture Evaluation Position Standing Head/C-Spine Posture Forward Head Shoulder Posture (L) Rounded,(R) Rounded,(L) Forward,(R) Forward Scapula Posture (L) Protracted,(R) Protracted Comments Posture Comments Measurement from spine to medial boarder of scapula at level of scapular spine: L = 10 cm, R = 12 cm Measurement from spine to inferior angle of scapula: L = 13.5 cm, R= 15 cm PT-OP-K Range of Motion Start: 05/01/19 15:22 Freq: Status: Active Protocol: Document 05/01/19 12:00 DCW (Rec: 05/01/19 17:53 DCW [id number]) Shoulder Goniometric Range of Motion Shoulder Right Active Shoulder ROM WFL No Testing Position Sitting Flexion 115 Abduction 103 External Rotation at 0 degrees Abduction 66 Internal Rotation Behind Back (text) T10 Left Active Shoulder ROM WFL No Testing Position Sitting Flexion 91 Abduction 68 External Rotation at 0 degrees Abduction 40 Internal Rotation Behind Back (text) Left PSIS PT-OP-L Special Tests Start: 05/01/19 15:22 Freq: Status: Active Protocol: Document 05/01/19 12:00 DCW (Rec: 05/01/19 17:53 DCW [id number]) Special Tests Shoulder Special Tests Painful Arc Test Results L Positive Passive ER Rotator Cuff Test Results L Positive Lift-Off Rotator Cuff Test Results L Difficulty Adame Irving Impingement Test Results B Positive Empty Can Test Results B Positive Drop Arm Rotator Cuff Test Results Negative Belly Press Test Results L Positive PT-OP-M Strength Start: 05/01/19 15:22 Freq: Status: Active Protocol: Document 05/01/19 12:00 DCW (Rec: 05/01/19 17:53 DCW [id number]) Shoulder Strength Shoulder Manual Muscle Testing Right Flexion 2+ Poor+ Abduction (C5) 2+ Poor+ External Rotation 4- Good- Left Flexion 2+ Poor+ Abduction (C5) 2+ Poor+ External Rotation 3- Fair- Comments Pt unable to move arm through full ROM against gravity PT-OP-Q Treatments Start: 05/01/19 15:22 Freq: Status: Active Protocol: Document 06/21/19 11:15 DCW (Rec: 06/21/19 12:04 DCW [id number]) Cardio Equipment Upper Body Ergometer (UBE) Duration (Minutes) 6 RPM 60 Seat Position 15 Height 5 Therapeutic Exercises Supine Exercises Horizontal Adduction Supine Exercise Name Horizontal Adduction Side bilateral Resistance 4# R, 2# L Reps/Minutes x20 Supine Punch Supine Exercise Name Serratus punch Side bilateral Resistance 4# Reps/Minutes x20 Sitting Exercises PROM Sitting Exercise Name Shoulder Flexion/Abduction Side bilateral Equipment Used Pulleys Standing Exercises Shoulder Press Standing Exercise Name Shoulder Press Side bilateral Resistance 3# Flexion Standing Exercise Name Shoulder Flexion Side bilateral Resistance 3# Abduction Standing Exercise Name Shoulder Abduction Side bilateral Resistance 0# IR Stretch Standing Exercise Name Shoulder IR Side left Equipment Used Pulleys Other Exercises Resisted Side-stepping Other Exercise Name UE resisted side-stepping on rail Resistance Green Equipment Used T-band Manual Therapy Treatment Soft Tissue Mobilization Subscap Body Location L Subscap Mobilization Type Strumming,Sustained Pressure, Trigger Point Release Joint Mobilizations 1 Joint L GH Direction Inferior Grade III Body Position Supine PT-OP-T Assessment and Plan Start: 05/01/19 15:22 Freq: Status: Active Protocol: Document 06/21/19 11:15 DCW (Rec: 06/21/19 12:04 DCW [id number]) Physical Therapy Assessment Impairments Impairments Activity Tolerance,Functional Mobility,Pain,Posture,ROM,Soft Tissue Mobility,Strength Goals Five Impairment Pt presents with increased forward shoulder posture Care Home Goal (LTG) Measurement from spine to medial boarder of scapula to at most 8 cm bilaterally LTG Duration 07/01/19 Four Impairment Pt displays limited shoulder ROM bilaterally Deicer Repairer Electric Goal (LTG) Right active flexion and abduction to 140? Left active flexion and abduction to 110? LTG Duration 07/01/19 Three Impairment Pt unable to tolerate working in his workshop due to pain Short Term Goal (STG) Pt to demonstrate overhead positioning of his bilateral arms with no increased pain STG Duration 06/01/19 Care Home Goal (LTG) Pt to lift >45# without an increase in symptoms in his shoulders LTG Duration 07/01/19 Two Impairment Pt has difficulty dressing himself secondary to shoulder pain Care Home Goal (LTG) Pt to don/doff jacket without an increase in shoulder pain bilaterally LTG Duration 07/01/19 One Impairment Pt does not have appropriate home exercise program Short Term Goal (STG) Pt to be independent and compliant with an appropriate HEP STG Duration 06/01/19 Assessment Summary Assessment Pt moving better today than he has been recently, still experiencing some pain with shoulder abduction and soreness in his toe, knee, and wrist. Physical Therapy Plan Frequency and Duration Frequency of Treatment 2x/Week Duration of Treatment Two months Plan of Care Start Date 05/01/19 Plan of Care End Date 12/28/19 Therapeutic Interventions Therapeutic Interventions Home Exercise Program,Joint Mobilizations,Manual Therapy, Neuromuscular Re-education, Patient/Caregiver Education, Self-Care/Home Management,Soft Tissue Mobilization, Therapeutic Activities, Therapeutic Exercises Modalities Cold Pack/Ice Massage,Electric Stimulation,Hot Packs Next Visit Focus/Plan Next Note Type Treatment Note Next Visit Plan Shoulder ROM, posture training , strengthening
--- NOTE | 2019-06-26 10:30 | PT.OTN ---
Current Diagnoses Other specific arthropathies, not elsewhere classified, left shoulder (06/26/19) Pain in right shoulder (06/26/19) Pain in left shoulder (06/26/19) Stiffness of right shoulder, not elsewhere classified (06/26/19) Stiffness of left shoulder, not elsewhere classified (06/26/19) Impingement syndrome of right shoulder (06/26/19) Impingement syndrome of left shoulder (06/26/19) Abnormal posture (06/26/19) Strain of muscle(s) and tendon(s) of the rotator cuff of left shoulder, subsequent encounter (06/26/19) Physical Therapy Treatment Note PT-OP-A Visit Information Start: 05/01/19 15:22 Freq: Status: Active Protocol: Document 06/26/19 09:45 DCW (Rec: 06/26/19 10:30 DCW [id number]) Out-Patient Physical Therapy Visit Information Visit Information Visit Type Treatment Note Visit Note 08/14 Visit Start Time 09:45 Visit Stop Time 10:30 Total Visit Minutes 45 Visit Number 12 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 Pt reports that he was reaching back to y to put a backpack on, and suddenly got a tremendous pain in his left shoulder. Pt has since been experiencing increased pain with any backward reaching, like trying to put on a jacket or reaching back for a seat belt. Pt also notes pain lifting more than 25 lbs , or lifting his arm overhead. Pt additionally has noticed that a few weeks ago, his right shoulder has now been bothering him with lifting or overhead motion as well, although this does not appear to be associated with any one event. Pt reports he had Dr. Ugarte check his shoulder, and was told that it won't get better without PT, so here I am. Pt has been seen in this facility multiple times, most recently for pre- and post-op therapy for a TKA. Treatment Goals Patient/Caregiver Goals Improve strength and function of his shoulders so he can return to his workshop with no limitations. PT-OP-C Subjective Start: 05/01/19 15:22 Freq: Status: Active Protocol: Document 06/26/19 09:45 DCW (Rec: 06/26/19 10:30 DCW [id number]) OP-PT Subjective Patient Comments Patient Comments Pt reports that he can really tell a difference in his foot after starting antibiotics, but it's not cured yet. PT-OP-E Functional Tests Start: 05/01/19 15:22 Freq: Status: Active Protocol: Document 05/01/19 12:00 DCW (Rec: 05/01/19 17:53 DCW [id number]) Functional Tests Apley's Scratch Test Action 1- Left Lateral opposite shoulder Action 1- Right Posterior opposite shoulder Action 2- Left Occiput Action 2- Right T2 Action 3- Left L PSIS Action 3- Right T10 PT-OP-F Manual Assessment Start: 05/01/19 15:22 Freq: Status: Active Protocol: Document 05/01/19 12:00 DCW (Rec: 05/01/19 17:53 DCW [id number]) Manual Assessments Soft Tissue Assessment Soft Tissue Mobility Assessment Severe tone - left Subscap, tenderness to palpation 3/4: Wincing and withdraw Moderate tone - bilateral Upper Trap, tenderness to palpation 2/4: Pain with wincing PT-OP-J Posture/Palpation/Skin Start: 05/01/19 15:22 Freq: Status: Active Protocol: Document 05/01/19 12:00 DCW (Rec: 05/01/19 17:53 DCW [id number]) Posture Evaluation Position Standing Head/C-Spine Posture Forward Head Shoulder Posture (L) Rounded,(R) Rounded,(L) Forward,(R) Forward Scapula Posture (L) Protracted,(R) Protracted Comments Posture Comments Measurement from spine to medial boarder of scapula at level of scapular spine: L = 10 cm, R = 12 cm Measurement from spine to inferior angle of scapula: L = 13.5 cm, R= 15 cm PT-OP-K Range of Motion Start: 05/01/19 15:22 Freq: Status: Active Protocol: Document 05/01/19 12:00 DCW (Rec: 05/01/19 17:53 DCW [id number]) Shoulder Goniometric Range of Motion Shoulder Right Active Shoulder ROM WFL No Testing Position Sitting Flexion 115 Abduction 103 External Rotation at 0 degrees Abduction 66 Internal Rotation Behind Back (text) T10 Left Active Shoulder ROM WFL No Testing Position Sitting Flexion 91 Abduction 68 External Rotation at 0 degrees Abduction 40 Internal Rotation Behind Back (text) Left PSIS PT-OP-L Special Tests Start: 05/01/19 15:22 Freq: Status: Active Protocol: Document 05/01/19 12:00 DCW (Rec: 05/01/19 17:53 DCW [id number]) Special Tests Shoulder Special Tests Painful Arc Test Results L Positive Passive ER Rotator Cuff Test Results L Positive Lift-Off Rotator Cuff Test Results L Difficulty Adame Irving Impingement Test Results B Positive Empty Can Test Results B Positive Drop Arm Rotator Cuff Test Results Negative Belly Press Test Results L Positive PT-OP-M Strength Start: 05/01/19 15:22 Freq: Status: Active Protocol: Document 05/01/19 12:00 DCW (Rec: 05/01/19 17:53 DCW [id number]) Shoulder Strength Shoulder Manual Muscle Testing Right Flexion 2+ Poor+ Abduction (C5) 2+ Poor+ External Rotation 4- Good- Left Flexion 2+ Poor+ Abduction (C5) 2+ Poor+ External Rotation 3- Fair- Comments Pt unable to move arm through full ROM against gravity PT-OP-Q Treatments Start: 05/01/19 15:22 Freq: Status: Active Protocol: Document 06/26/19 09:45 DCW (Rec: 06/26/19 10:30 DCW [id number]) Cardio Equipment Upper Body Ergometer (UBE) Duration (Minutes) 6 RPM 60 Seat Position 15 Height 4.5 Therapeutic Exercises Supine Exercises Horizontal Adduction Supine Exercise Name Horizontal Adduction Side bilateral Resistance 4# R, 2# L Reps/Minutes x20 Supine Punch Supine Exercise Name Serratus punch Side bilateral Resistance 4# Reps/Minutes x20 Sitting Exercises PROM Sitting Exercise Name Shoulder Flexion/Abduction Side bilateral Equipment Used Pulleys Standing Exercises Shoulder Press Standing Exercise Name Shoulder Press Side bilateral Resistance 3# Flexion Standing Exercise Name Shoulder Flexion Side bilateral Resistance 3# Abduction Standing Exercise Name Shoulder Abduction Side bilateral Resistance 3# IR Stretch Standing Exercise Name Shoulder IR Side left Equipment Used Pulleys Other Exercises Resisted Side-stepping Other Exercise Name UE resisted side-stepping on rail Resistance Green Equipment Used T-band Manual Therapy Treatment Soft Tissue Mobilization Subscap Body Location L Subscap Mobilization Type Strumming,Sustained Pressure, Trigger Point Release Joint Mobilizations 1 Joint L GH Direction Inferior Grade III Body Position Supine PT-OP-T Assessment and Plan Start: 05/01/19 15:22 Freq: Status: Active Protocol: Document 06/26/19 09:45 DCW (Rec: 06/26/19 10:30 DCW [id number]) Physical Therapy Assessment Impairments Impairments Activity Tolerance,Functional Mobility,Pain,Posture,ROM,Soft Tissue Mobility,Strength Goals Five Impairment Pt presents with increased forward shoulder posture Hand Loom Weaver Goal (LTG) Measurement from spine to medial boarder of scapula to at most 8 cm bilaterally LTG Duration 07/01/19 Four Impairment Pt displays limited shoulder ROM bilaterally Intermediate Goal (LTG) Right active flexion and abduction to 140? Left active flexion and abduction to 110? LTG Duration 07/01/19 Three Impairment Pt unable to tolerate working in his workshop due to pain Short Term Goal (STG) Pt to demonstrate overhead positioning of his bilateral arms with no increased pain STG Duration 06/01/19 Intermediate Goal (LTG) Pt to lift >45# without an increase in symptoms in his shoulders LTG Duration 07/01/19 Two Impairment Pt has difficulty dressing himself secondary to shoulder pain Intermediate Goal (LTG) Pt to don/doff jacket without an increase in shoulder pain bilaterally LTG Duration 07/01/19 One Impairment Pt does not have appropriate home exercise program Short Term Goal (STG) Pt to be independent and compliant with an appropriate HEP STG Duration 06/01/19 Assessment Summary Assessment Pt demonstrated better ROM and decreased pain today with both active and passive ROM. Physical Therapy Plan Frequency and Duration Frequency of Treatment 2x/Week Duration of Treatment Two months Plan of Care Start Date 05/01/19 Plan of Care End Date 07/01/19 Therapeutic Interventions Therapeutic Interventions Home Exercise Program,Joint Mobilizations,Manual Therapy, Neuromuscular Re-education, Patient/Caregiver Education, Self-Care/Home Management,Soft Tissue Mobilization, Therapeutic Activities, Therapeutic Exercises Modalities Cold Pack/Ice Massage,Electric Stimulation,Hot Packs Next Visit Focus/Plan Next Note Type Treatment Note Next Visit Plan Shoulder ROM, posture training , strengthening
--- NOTE | 2019-06-29 10:31 | PT.OPPN ---
Current Diagnoses Other specific arthropathies, not elsewhere classified, left shoulder (06/29/19) Pain in right shoulder (06/29/19) Pain in left shoulder (06/29/19) Stiffness of right shoulder, not elsewhere classified (06/29/19) Stiffness of left shoulder, not elsewhere classified (06/29/19) Impingement syndrome of right shoulder (06/29/19) Impingement syndrome of left shoulder (06/29/19) Abnormal posture (06/29/19) Strain of muscle(s) and tendon(s) of the rotator cuff of left shoulder, subsequent encounter (06/29/19) Physical Therapy Progress Note PT-OP-A Visit Information Start: 05/01/19 15:22 Freq: Status: Active Protocol: Document 06/29/19 09:45 DCW (Rec: 06/29/19 09:50 DCW [id number]) Out-Patient Physical Therapy Visit Information Visit Information Visit Type Progress Note Visit Start Time 09:45 Visit Stop Time 10:30 Total Visit Minutes 45 Visit Number 13 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 Pt reports that he was reaching back to rty to put a backpack on, and suddenly got a tremendous pain in his left shoulder. Pt has since been experiencing increased pain with any backward reaching, like trying to put on a jacket or reaching back for a seat belt. Pt also notes pain lifting more than 25 lbs , or lifting his arm overhead. Pt additionally has noticed that a few weeks ago, his right shoulder has now been bothering him with lifting or overhead motion as well, although this does not appear to be associated with any one event. Pt reports he had Dr. Ugarte check his shoulder, and was told that it won't get better without PT, so here I am. Pt has been seen in this facility multiple times, most recently for pre- and post-op therapy for a TKA. Treatment Goals Patient/Caregiver Goals Improve strength and function of his shoulders so he can return to his workshop with no limitations. PT-OP-C Subjective Start: 05/01/19 15:22 Freq: Status: Active Protocol: Document 06/29/19 09:45 DCW (Rec: 06/29/19 09:50 DCW [id number]) OP-PT Subjective Patient Comments Patient Comments I think it has actually been better. I was in my shop Wednesday, and I was able to reach up much better than I had before. Even now, I'm able to get my arm up higher. PT-OP-E Functional Tests Start: 05/01/19 15:22 Freq: Status: Active Protocol: Document 06/29/19 09:45 DCW (Rec: 06/29/19 10:11 DCW [id number]) Functional Tests Apley's Scratch Test Action 1: The subject is instructed to touch the opposite shoulder with his/her hand. This motion checks Glenohumeral adduction, internal rotation , horizontal adduction and scapular protraction Action 2: The subject is instructed to place his/her arm overhead and reach behind the neck to touch his/her upper back. This motion checks Glenohumeral abduction, external rotation and scapular upward rotation and elevation. Action 3: The subject puts his/her hand on the lower back and reaches upward as far as possible. This motion checks glenohumeral adduction, internal rotation and scapular retraction with downward rotation Action 1- Left Lateral opposite shoulder Action 1- Right Posterior opposite shoulder Action 2- Left C3 Action 2- Right T2 Action 3- Left L2 Action 3- Right T10 PT-OP-F Manual Assessment Start: 05/01/19 15:22 Freq: Status: Active Protocol: Document 06/29/19 09:45 DCW (Rec: 06/29/19 10:11 DCW [id number]) Manual Assessments Soft Tissue Assessment Soft Tissue Mobility Assessment Moderate tone - left subscap. bilateral Upper Trap, tenderness to palpation 2/4: Pain with wincing PT-OP-J Posture/Palpation/Skin Start: 05/01/19 15:22 Freq: Status: Active Protocol: Document 06/29/19 09:45 DCW (Rec: 06/29/19 10:11 DCW [id number]) Posture Evaluation Position Standing Head/C-Spine Posture Forward Head Scapula Posture (L) Protracted,(R) Protracted Comments Posture Comments Measurement from spine to medial boarder of scapula at level of scapular spine: L = 8 cm, R = 8 cm Measurement from spine to inferior angle of scapula: L = 12 cm, R= 13 cm PT-OP-K Range of Motion Start: 05/01/19 15:22 Freq: Status: Active Protocol: Document 06/29/19 09:45 DCW (Rec: 06/29/19 10:11 DCW [id number]) Shoulder Goniometric Range of Motion Shoulder Measured in Degrees Right Active Shoulder ROM WFL No Testing Position Sitting Flexion 132 Abduction 135 External Rotation at 0 degrees Abduction 64 Internal Rotation Behind Back (text) T10 Left Active Shoulder ROM WFL No Testing Position Sitting Flexion 112 Abduction 103 External Rotation at 0 degrees Abduction 62 Internal Rotation Behind Back (text) L2 PT-OP-L Special Tests Start: 05/01/19 15:22 Freq: Status: Active Protocol: Document 06/29/19 09:45 DCW (Rec: 06/29/19 10:11 DCW [id number]) Special Tests Shoulder Special Tests Painful Arc Test Results L Positive Passive ER Rotator Cuff Test Results L Positive Lift-Off Rotator Cuff Test Results Negative Adame Irving Impingement Test Results L Positive Empty Can Test Results Negative Drop Arm Rotator Cuff Test Results Negative Belly Press Test Results Negative PT-OP-M Strength Start: 05/01/19 15:22 Freq: Status: Active Protocol: Document 06/29/19 09:45 DCW (Rec: 06/29/19 10:11 DCW [id number]) Shoulder Strength Shoulder Manual Muscle Testing Right Flexion 3- Fair- Abduction (C5) 4- Good- External Rotation 4 Good Left Flexion 3- Fair- Abduction (C5) 3- Fair- External Rotation 4 Good PT-OP-T Assessment and Plan Start: 05/01/19 15:22 Freq: Status: Active Protocol: Document 06/29/19 09:45 DCW (Rec: 06/29/19 10:30 DCW [id number]) Physical Therapy Assessment Impairments Impairments Activity Tolerance,Functional Mobility,Pain,Posture,ROM,Soft Tissue Mobility,Strength Goals Five Impairment Pt presents with increased forward shoulder posture Condominium Manager Goal (LTG) Measurement from spine to medial boarder of scapula to at most 8 cm bilaterally LTG Duration Met Four Impairment Pt displays limited shoulder ROM bilaterally Half-Way Goal (LTG) Right active flexion and abduction to 140? Left active flexion and abduction to 110? LTG Duration 08/30/19 - Improving Three Impairment Pt unable to tolerate working in his workshop due to pain Short Term Goal (STG) Pt to demonstrate overhead positioning of his bilateral arms with no increased pain STG Duration 07/30/19 - Improving Condominium Manager Goal (LTG) Pt to lift >45# without an increase in symptoms in his shoulders LTG Duration 08/30/19 Two Impairment Pt has difficulty dressing himself secondary to shoulder pain Condominium Manager Goal (LTG) Pt to don/doff jacket without an increase in shoulder pain bilaterally LTG Duration 08/30/19 - Improving One Impairment Pt does not have appropriate home exercise program Short Term Goal (STG) Pt to be independent and compliant with an appropriate HEP STG Duration Met Assessment Summary Assessment Pt showing improvement since initial evaluation. L shoulder ROM improved, flexion 91->112 degrees, ER 40->62 degrees, and abduction 68->103 degrees. Shoulder posture has also improved greatly, with both scapula 2 cm closer to the spine, resulting in decreased scapula abduction/decreased rounded shoulders. Pt should continue to improve with skilled therapy, recommend continuing current plan of care. Physical Therapy Plan Frequency and Duration Frequency of Treatment 2x/Week Duration of Treatment Two months Plan of Care Start Date 06/29/19 Plan of Care End Date 08/30/19 Therapeutic Interventions Therapeutic Interventions Home Exercise Program,Joint Mobilizations,Manual Therapy, Neuromuscular Re-education, Patient/Caregiver Education, Self-Care/Home Management,Soft Tissue Mobilization, Therapeutic Activities, Therapeutic Exercises Modalities Cold Pack/Ice Massage,Electric Stimulation,Hot Packs Next Visit Focus/Plan Next Note Type Treatment Note Next Visit Plan Shoulder ROM, posture training , strengthening
--- NOTE | 2019-06-29 10:31 | PT.OPPOC ---
Current Diagnoses Other specific arthropathies, not elsewhere classified, left shoulder (06/29/19) Pain in right shoulder (06/29/19) Pain in left shoulder (06/29/19) Stiffness of right shoulder, not elsewhere classified (06/29/19) Stiffness of left shoulder, not elsewhere classified (06/29/19) Impingement syndrome of right shoulder (06/29/19) Impingement syndrome of left shoulder (06/29/19) Abnormal posture (06/29/19) Strain of muscle(s) and tendon(s) of the rotator cuff of left shoulder, subsequent encounter (06/29/19) Visit Care Team Role Provider Type Kavita Aranda MD Primary Care Provider Non-Staff Specialty: Internal Medicine Address: [address] [place] [address], [address], [place], [address] Email: Franck Ugarte MD Attending Provider Non-Staff Specialty: Internal Medicine Address: [address] [place] [address], [address], [place], [address] Email: Plan Of Care PT-OP-T Assessment and Plan Start: 05/01/19 15:22 Freq: Status: Active Protocol: Document 06/29/19 09:45 DCW (Rec: 06/29/19 10:30 DCW [id number]) Physical Therapy Assessment Impairments Impairments Activity Tolerance,Functional Mobility,Pain,Posture,ROM,Soft Tissue Mobility,Strength Goals Five Impairment Pt presents with increased forward shoulder posture Piece Goods Clerk Goal (LTG) Measurement from spine to medial boarder of scapula to at most 8 cm bilaterally LTG Duration Met Four Impairment Pt displays limited shoulder ROM bilaterally Senior Care Goal (LTG) Right active flexion and abduction to 140? Left active flexion and abduction to 110? LTG Duration 08/30/19 - Improving Three Impairment Pt unable to tolerate working in his workshop due to pain Short Term Goal (STG) Pt to demonstrate overhead positioning of his bilateral arms with no increased pain STG Duration 07/30/19 - Improving Piece Goods Clerk Goal (LTG) Pt to lift >45# without an increase in symptoms in his shoulders LTG Duration 08/30/19 Two Impairment Pt has difficulty dressing himself secondary to shoulder pain Piece Goods Clerk Goal (LTG) Pt to don/doff jacket without an increase in shoulder pain bilaterally LTG Duration 08/30/19 - Improving One Impairment Pt does not have appropriate home exercise program Short Term Goal (STG) Pt to be independent and compliant with an appropriate HEP STG Duration Met Assessment Summary Assessment Pt showing improvement since initial evaluation. L shoulder ROM improved, flexion 91->112 degrees, ER 40->62 degrees, and abduction 68->103 degrees. Shoulder posture has also improved greatly, with both scapula 2 cm closer to the spine, resulting in decreased scapula abduction/decreased rounded shoulders. Pt should continue to improve with skilled therapy, recommend continuing current plan of care. Physical Therapy Plan Frequency and Duration Frequency of Treatment 2x/Week Duration of Treatment Two months Plan of Care Start Date 06/29/19 Plan of Care End Date 08/30/19 Therapeutic Interventions Therapeutic Interventions Home Exercise Program,Joint Mobilizations,Manual Therapy, Neuromuscular Re-education, Patient/Caregiver Education, Self-Care/Home Management,Soft Tissue Mobilization, Therapeutic Activities, Therapeutic Exercises Modalities Cold Pack/Ice Massage,Electric Stimulation,Hot Packs Next Visit Focus/Plan Next Note Type Treatment Note Next Visit Plan Shoulder ROM, posture training , strengthening Plan of Care Dates Plan of Care Start Date 06/29/19 Plan of Care End Date 08/30/19
--- NOTE | 2019-07-03 10:30 | PT.OTN ---
Current Diagnoses Other specific arthropathies, not elsewhere classified, left shoulder (07/03/19) Pain in right shoulder (07/03/19) Pain in left shoulder (07/03/19) Stiffness of right shoulder, not elsewhere classified (07/03/19) Stiffness of left shoulder, not elsewhere classified (07/03/19) Impingement syndrome of right shoulder (07/03/19) Impingement syndrome of left shoulder (07/03/19) Abnormal posture (07/03/19) Strain of muscle(s) and tendon(s) of the rotator cuff of left shoulder, subsequent encounter (07/03/19) Physical Therapy Treatment Note PT-OP-A Visit Information Start: 05/01/19 15:22 Freq: Status: Active Protocol: Document 07/03/19 09:45 DCW (Rec: 07/03/19 10:30 DCW [id number]) Out-Patient Physical Therapy Visit Information Visit Information Visit Type Treatment Note Visit Note 07/14 Visit Start Time 09:45 Visit Stop Time 10:30 Total Visit Minutes 45 Visit Number 14 Number of OFFICE SUPPORT ASSOCIATE Visits 0 Evaluation Information Evaluation Date 05/01/19 PT-OP-B Current Condition Start: 05/01/19 15:22 Freq: Status: Active Protocol: Document 05/01/19 12:00 DCW (Rec: 05/01/19 17:53 DCW [id number]) Current Condition History of Current Condition Onset Date Three months Current Complaints Bilateral shoulder pain, immobility History of Current Condition Pt is a 74 year old male presenting with a three month history of left shoulder pain. Pt reports that he was reaching back to y to put a backpack on, and suddenly got a tremendous pain in his left shoulder. Pt has since been experiencing increased pain with any backward reaching, like trying to put on a jacket or reaching back for a seat belt. Pt also notes pain lifting more than 25 lbs , or lifting his arm overhead. Pt additionally has noticed that a few weeks ago, his right shoulder has now been bothering him with lifting or overhead motion as well, although this does not appear to be associated with any one event. Pt reports he had Dr. Ugarte check his shoulder, and was told that it won't get better without PT, so here I am. Pt has been seen in this facility multiple times, most recently for pre- and post-op therapy for a TKA. Treatment Goals Patient/Caregiver Goals Improve strength and function of his shoulders so he can return to his workshop with no limitations. PT-OP-C Subjective Start: 05/01/19 15:22 Freq: Status: Active Protocol: Document 07/03/19 09:45 DCW (Rec: 07/03/19 10:30 DCW [id number]) OP-PT Subjective Patient Comments Patient Comments Pt reports that his feet have been bothering him more recently due to his arthritis. PT-OP-E Functional Tests Start: 05/01/19 15:22 Freq: Status: Active Protocol: Document 06/29/19 09:45 DCW (Rec: 06/29/19 10:11 DCW [id number]) Functional Tests Apley's Scratch Test Action 1- Left Lateral opposite shoulder Action 1- Right Posterior opposite shoulder Action 2- Left C3 Action 2- Right T2 Action 3- Left L2 Action 3- Right T10 PT-OP-F Manual Assessment Start: 05/01/19 15:22 Freq: Status: Active Protocol: Document 06/29/19 09:45 DCW (Rec: 06/29/19 10:11 DCW [id number]) Manual Assessments Soft Tissue Assessment Soft Tissue Mobility Assessment Moderate tone - left subscap. bilateral Upper Trap, tenderness to palpation 2/4: Pain with wincing PT-OP-J Posture/Palpation/Skin Start: 05/01/19 15:22 Freq: Status: Active Protocol: Document 06/29/19 09:45 DCW (Rec: 06/29/19 10:11 DCW [id number]) Posture Evaluation Position Standing Head/C-Spine Posture Forward Head Scapula Posture (L) Protracted,(R) Protracted Comments Posture Comments Measurement from spine to medial boarder of scapula at level of scapular spine: L = 8 cm, R = 8 cm Measurement from spine to inferior angle of scapula: L = 12 cm, R= 13 cm PT-OP-K Range of Motion Start: 05/01/19 15:22 Freq: Status: Active Protocol: Document 06/29/19 09:45 DCW (Rec: 06/29/19 10:11 DCW [id number]) Shoulder Goniometric Range of Motion Shoulder Right Active Shoulder ROM WFL No Testing Position Sitting Flexion 132 Abduction 135 External Rotation at 0 degrees Abduction 64 Internal Rotation Behind Back (text) T10 Left Active Shoulder ROM WFL No Testing Position Sitting Flexion 112 Abduction 103 External Rotation at 0 degrees Abduction 62 Internal Rotation Behind Back (text) L2 PT-OP-L Special Tests Start: 05/01/19 15:22 Freq: Status: Active Protocol: Document 06/29/19 09:45 DCW (Rec: 06/29/19 10:11 DCW [id number]) Special Tests Shoulder Special Tests Painful Arc Test Results L Positive Passive ER Rotator Cuff Test Results L Positive Lift-Off Rotator Cuff Test Results Negative Adame Irving Impingement Test Results L Positive Empty Can Test Results Negative Drop Arm Rotator Cuff Test Results Negative Belly Press Test Results Negative PT-OP-M Strength Start: 05/01/19 15:22 Freq: Status: Active Protocol: Document 06/29/19 09:45 DCW (Rec: 06/29/19 10:11 DCW [id number]) Shoulder Strength Shoulder Manual Muscle Testing Right Flexion 3- Fair- Abduction (C5) 4- Good- External Rotation 4 Good Left Flexion 3- Fair- Abduction (C5) 3- Fair- External Rotation 4 Good PT-OP-Q Treatments Start: 05/01/19 15:22 Freq: Status: Active Protocol: Document 07/03/19 09:45 DCW (Rec: 07/03/19 10:30 DCW [id number]) Cardio Equipment Upper Body Ergometer (UBE) Duration (Minutes) 6 RPM 60 Seat Position 15 Height 4.5 Therapeutic Exercises Supine Exercises Horizontal Adduction Supine Exercise Name Horizontal Adduction Side bilateral Resistance 4# R, 3# L Reps/Minutes x20 Supine Punch Supine Exercise Name Serratus punch Side bilateral Resistance 4# Reps/Minutes x20 Sitting Exercises PROM Sitting Exercise Name Shoulder Flexion/Abduction Side bilateral Equipment Used Pulleys Standing Exercises Shoulder Press Standing Exercise Name Shoulder Press Side bilateral Resistance 3# Flexion Standing Exercise Name Shoulder Flexion Side bilateral Resistance 3# Abduction Standing Exercise Name Shoulder Abduction Side bilateral Resistance 3# IR Stretch Standing Exercise Name Shoulder IR Side left Equipment Used Pulleys Manual Therapy Treatment Soft Tissue Mobilization Subscap Body Location L Subscap Mobilization Type Strumming,Sustained Pressure, Trigger Point Release Joint Mobilizations 1 Joint L GH Direction Inferior Grade III Body Position Supine Other Other Manual Treatments ROM, MMT, Shoulder testing PT-OP-T Assessment and Plan Start: 05/01/19 15:22 Freq: Status: Active Protocol: Document 07/03/19 09:45 DCW (Rec: 07/03/19 10:30 DCW [id number]) Physical Therapy Assessment Impairments Impairments Activity Tolerance,Functional Mobility,Pain,Posture,ROM,Soft Tissue Mobility,Strength Goals Five Impairment Pt presents with increased forward shoulder posture Director Of Hotel Operations Goal (LTG) Measurement from spine to medial boarder of scapula to at most 8 cm bilaterally LTG Duration Met Four Impairment Pt displays limited shoulder ROM bilaterally [facility] Goal (LTG) Right active flexion and abduction to 140? Left active flexion and abduction to 110? LTG Duration 08/30/19 - Improving Three Impairment Pt unable to tolerate working in his workshop due to pain Short Term Goal (STG) Pt to demonstrate overhead positioning of his bilateral arms with no increased pain STG Duration 07/30/19 - Improving Director Of Hotel Operations Goal (LTG) Pt to lift >45# without an increase in symptoms in his shoulders LTG Duration 08/30/19 Two Impairment Pt has difficulty dressing himself secondary to shoulder pain [facility] Goal (LTG) Pt to don/doff jacket without an increase in shoulder pain bilaterally LTG Duration 08/30/19 - Improving One Impairment Pt does not have appropriate home exercise program Short Term Goal (STG) Pt to be independent and compliant with an appropriate HEP STG Duration Met Assessment Summary Assessment Pt did well today, no new complaints, tolerating exercises well. Physical Therapy Plan Frequency and Duration Frequency of Treatment 2x/Week Duration of Treatment Two months Plan of Care Start Date 06/29/19 Plan of Care End Date 08/30/19 Therapeutic Interventions Therapeutic Interventions Home Exercise Program,Joint Mobilizations,Manual Therapy, Neuromuscular Re-education, Patient/Caregiver Education, Self-Care/Home Management,Soft Tissue Mobilization, Therapeutic Activities, Therapeutic Exercises Modalities Cold Pack/Ice Massage,Electric Stimulation,Hot Packs Next Visit Focus/Plan Next Note Type Treatment Note Next Visit Plan Shoulder ROM, posture training , strengthening
--- NOTE | 2019-07-27 15:14 | PT.OTN ---
Current Diagnoses Other specific arthropathies, not elsewhere classified, left shoulder (07/27/19) Pain in right shoulder (07/27/19) Pain in left shoulder (07/27/19) Stiffness of right shoulder, not elsewhere classified (07/27/19) Stiffness of left shoulder, not elsewhere classified (07/27/19) Impingement syndrome of right shoulder (07/27/19) Impingement syndrome of left shoulder (07/27/19) Abnormal posture (07/27/19) Strain of muscle(s) and tendon(s) of the rotator cuff of left shoulder, subsequent encounter (07/27/19) Physical Therapy Treatment Note PT-OP-A Visit Information Start: 05/01/19 15:22 Freq: Status: Active Protocol: Document 07/27/19 14:35 DCW (Rec: 07/27/19 15:14 DCW [id number]) Out-Patient Physical Therapy Visit Information Visit Information Visit Type Treatment Note Visit Note 08/14 Visit Start Time 14:35 Visit Stop Time 15:15 Total Visit Minutes 40 Visit Number 14 Number of EMPLOYMENT INSTRUCTIONAL ASSOCIATE Visits 0 Evaluation Information Evaluation Date 05/01/19 PT-OP-B Current Condition Start: 05/01/19 15:22 Freq: Status: Active Protocol: Document 05/01/19 12:00 DCW (Rec: 05/01/19 17:53 DCW [id number]) Current Condition History of Current Condition Onset Date Three months Current Complaints Bilateral shoulder pain, immobility History of Current Condition Pt is a 74 year old male presenting with a three month history of left shoulder pain. Pt reports that he was reaching back to y to put a backpack on, and suddenly got a tremendous pain in his left shoulder. Pt has since been experiencing increased pain with any backward reaching, like trying to put on a jacket or reaching back for a seat belt. Pt also notes pain lifting more than 25 lbs , or lifting his arm overhead. Pt additionally has noticed that a few weeks ago, his right shoulder has now been bothering him with lifting or overhead motion as well, although this does not appear to be associated with any one event. Pt reports he had Dr. Ugarte check his shoulder, and was told that it won't get better without PT, so here I am. Pt has been seen in this facility multiple times, most recently for pre- and post-op therapy for a TKA. Treatment Goals Patient/Caregiver Goals Improve strength and function of his shoulders so he can return to his workshop with no limitations. PT-OP-C Subjective Start: 05/01/19 15:22 Freq: Status: Active Protocol: Document 07/27/19 14:35 DCW (Rec: 07/27/19 15:14 DCW [id number]) OP-PT Subjective Patient Comments Patient Comments Pt notes that his shoulder is actually doing better. It's not fixed, but it is getting there. PT-OP-E Functional Tests Start: 05/01/19 15:22 Freq: Status: Active Protocol: Document 06/29/19 09:45 DCW (Rec: 06/29/19 10:11 DCW [id number]) Functional Tests Apley's Scratch Test Action 1- Left Lateral opposite shoulder Action 1- Right Posterior opposite shoulder Action 2- Left C3 Action 2- Right T2 Action 3- Left L2 Action 3- Right T10 PT-OP-F Manual Assessment Start: 05/01/19 15:22 Freq: Status: Active Protocol: Document 06/29/19 09:45 DCW (Rec: 06/29/19 10:11 DCW [id number]) Manual Assessments Soft Tissue Assessment Soft Tissue Mobility Assessment Moderate tone - left subscap. bilateral Upper Trap, tenderness to palpation 2/4: Pain with wincing PT-OP-J Posture/Palpation/Skin Start: 05/01/19 15:22 Freq: Status: Active Protocol: Document 06/29/19 09:45 DCW (Rec: 06/29/19 10:11 DCW [id number]) Posture Evaluation Position Standing Head/C-Spine Posture Forward Head Scapula Posture (L) Protracted,(R) Protracted Comments Posture Comments Measurement from spine to medial boarder of scapula at level of scapular spine: L = 8 cm, R = 8 cm Measurement from spine to inferior angle of scapula: L = 12 cm, R= 13 cm PT-OP-K Range of Motion Start: 05/01/19 15:22 Freq: Status: Active Protocol: Document 06/29/19 09:45 DCW (Rec: 06/29/19 10:11 DCW [id number]) Shoulder Goniometric Range of Motion Shoulder Right Active Shoulder ROM WFL No Testing Position Sitting Flexion 132 Abduction 135 External Rotation at 0 degrees Abduction 64 Internal Rotation Behind Back (text) T10 Left Active Shoulder ROM WFL No Testing Position Sitting Flexion 112 Abduction 103 External Rotation at 0 degrees Abduction 62 Internal Rotation Behind Back (text) L2 PT-OP-L Special Tests Start: 05/01/19 15:22 Freq: Status: Active Protocol: Document 06/29/19 09:45 DCW (Rec: 06/29/19 10:11 DCW [id number]) Special Tests Shoulder Special Tests Painful Arc Test Results L Positive Passive ER Rotator Cuff Test Results L Positive Lift-Off Rotator Cuff Test Results Negative Adame Irving Impingement Test Results L Positive Empty Can Test Results Negative Drop Arm Rotator Cuff Test Results Negative Belly Press Test Results Negative PT-OP-M Strength Start: 05/01/19 15:22 Freq: Status: Active Protocol: Document 06/29/19 09:45 DCW (Rec: 06/29/19 10:11 DCW [id number]) Shoulder Strength Shoulder Manual Muscle Testing Right Flexion 3- Fair- Abduction (C5) 4- Good- External Rotation 4 Good Left Flexion 3- Fair- Abduction (C5) 3- Fair- External Rotation 4 Good PT-OP-Q Treatments Start: 05/01/19 15:22 Freq: Status: Active Protocol: Document 07/27/19 14:35 DCW (Rec: 07/27/19 15:14 DCW [id number]) Therapeutic Exercises Supine Exercises Horizontal Adduction Supine Exercise Name Horizontal Adduction Side bilateral Resistance 4# R, 3# L Reps/Minutes x20 Supine Punch Supine Exercise Name Serratus punch Side bilateral Resistance 4# Reps/Minutes x20 Sitting Exercises PROM Sitting Exercise Name Shoulder Flexion/Abduction Side bilateral Equipment Used Pulleys Standing Exercises Shoulder Press Standing Exercise Name Shoulder Press Side bilateral Resistance 3# Flexion Standing Exercise Name Shoulder Flexion Side bilateral Resistance 3# Abduction Standing Exercise Name Shoulder Abduction Side bilateral Resistance 3# IR Stretch Standing Exercise Name Shoulder IR Side left Equipment Used Pulleys Manual Therapy Treatment Soft Tissue Mobilization Subscap Body Location L Subscap Mobilization Type Strumming,Sustained Pressure, Trigger Point Release Joint Mobilizations 1 Joint L GH Direction Inferior Grade III Body Position Supine Other Other Manual Treatments ROM, MMT, Shoulder testing PT-OP-T Assessment and Plan Start: 05/01/19 15:22 Freq: Status: Active Protocol: Document 07/27/19 14:35 DCW (Rec: 07/27/19 15:14 DCW [id number]) Physical Therapy Assessment Impairments Impairments Activity Tolerance,Functional Mobility,Pain,Posture,ROM,Soft Tissue Mobility,Strength Goals Five Impairment Pt presents with increased forward shoulder posture Environmental Remediation Specialist Goal (LTG) Measurement from spine to medial boarder of scapula to at most 8 cm bilaterally LTG Duration Met Four Impairment Pt displays limited shoulder ROM bilaterally Environmental Remediation Specialist Goal (LTG) Right active flexion and abduction to 140? Left active flexion and abduction to 110? LTG Duration 08/30/19 - Improving Three Impairment Pt unable to tolerate working in his workshop due to pain Short Term Goal (STG) Pt to demonstrate overhead positioning of his bilateral arms with no increased pain STG Duration 07/30/19 - Improving Environmental Remediation Specialist Goal (LTG) Pt to lift >45# without an increase in symptoms in his shoulders LTG Duration 08/30/19 Two Impairment Pt has difficulty dressing himself secondary to shoulder pain Environmental Remediation Specialist Goal (LTG) Pt to don/doff jacket without an increase in shoulder pain bilaterally LTG Duration 08/30/19 - Improving One Impairment Pt does not have appropriate home exercise program Short Term Goal (STG) Pt to be independent and compliant with an appropriate HEP STG Duration Met Assessment Summary Assessment Pt demonstrating improved ROM and strength, still limited with pain at end range. Physical Therapy Plan Frequency and Duration Frequency of Treatment 2x/Week Duration of Treatment Two months Plan of Care Start Date 06/29/19 Plan of Care End Date 08/30/19 Therapeutic Interventions Therapeutic Interventions Home Exercise Program,Joint Mobilizations,Manual Therapy, Neuromuscular Re-education, Patient/Caregiver Education, Self-Care/Home Management,Soft Tissue Mobilization, Therapeutic Activities, Therapeutic Exercises Modalities Cold Pack/Ice Massage,Electric Stimulation,Hot Packs Next Visit Focus/Plan Next Note Type Treatment Note Next Visit Plan Shoulder ROM, posture training , strengthening
--- NOTE | 2019-08-02 10:30 | PT.OTN ---
Current Diagnoses Other specific arthropathies, not elsewhere classified, left shoulder (08/02/19) Pain in right shoulder (08/02/19) Pain in left shoulder (08/02/19) Stiffness of right shoulder, not elsewhere classified (08/02/19) Stiffness of left shoulder, not elsewhere classified (08/02/19) Impingement syndrome of right shoulder (08/02/19) Impingement syndrome of left shoulder (08/02/19) Abnormal posture (08/02/19) Strain of muscle(s) and tendon(s) of the rotator cuff of left shoulder, subsequent encounter (08/02/19) Physical Therapy Treatment Note PT-OP-A Visit Information Start: 05/01/19 15:22 Freq: Status: Active Protocol: Document 08/02/19 09:45 DCW (Rec: 08/02/19 10:30 DCW [id number]) Out-Patient Physical Therapy Visit Information Visit Information Visit Type Treatment Note Visit Note 09/11 Visit Start Time 09:45 Visit Stop Time 10:30 Total Visit Minutes 45 Visit Number 15 Number of TRANSITIONS RN CARE COORDINATOR Visits 0 Evaluation Information Evaluation Date 05/01/19 PT-OP-B Current Condition Start: 05/01/19 15:22 Freq: Status: Active Protocol: Document 05/01/19 12:00 DCW (Rec: 05/01/19 17:53 DCW [id number]) Current Condition History of Current Condition Onset Date Three months Current Complaints Bilateral shoulder pain, immobility History of Current Condition Pt is a 74 year old male presenting with a three month history of left shoulder pain. Pt reports that he was reaching back to y to put a backpack on, and suddenly got a tremendous pain in his left shoulder. Pt has since been experiencing increased pain with any backward reaching, like trying to put on a jacket or reaching back for a seat belt. Pt also notes pain lifting more than 25 lbs , or lifting his arm overhead. Pt additionally has noticed that a few weeks ago, his right shoulder has now been bothering him with lifting or overhead motion as well, although this does not appear to be associated with any one event. Pt reports he had Dr. Ugarte check his shoulder, and was told that it won't get better without PT, so here I am. Pt has been seen in this facility multiple times, most recently for pre- and post-op therapy for a TKA. Treatment Goals Patient/Caregiver Goals Improve strength and function of his shoulders so he can return to his workshop with no limitations. PT-OP-C Subjective Start: 05/01/19 15:22 Freq: Status: Active Protocol: Document 08/02/19 09:45 DCW (Rec: 08/02/19 10:30 DCW [id number]) OP-PT Subjective Patient Comments Patient Comments My shoulder is better. It's not quite there yet, but it is getting better. Pt also notes that he has been overall more sore throughout his body , and has had trouble sleeping . PT-OP-E Functional Tests Start: 05/01/19 15:22 Freq: Status: Active Protocol: Document 06/29/19 09:45 DCW (Rec: 06/29/19 10:11 DCW [id number]) Functional Tests Apley's Scratch Test Action 1- Left Lateral opposite shoulder Action 1- Right Posterior opposite shoulder Action 2- Left C3 Action 2- Right T2 Action 3- Left L2 Action 3- Right T10 PT-OP-F Manual Assessment Start: 05/01/19 15:22 Freq: Status: Active Protocol: Document 06/29/19 09:45 DCW (Rec: 06/29/19 10:11 DCW [id number]) Manual Assessments Soft Tissue Assessment Soft Tissue Mobility Assessment Moderate tone - left subscap. bilateral Upper Trap, tenderness to palpation 2/4: Pain with wincing PT-OP-J Posture/Palpation/Skin Start: 05/01/19 15:22 Freq: Status: Active Protocol: Document 06/29/19 09:45 DCW (Rec: 06/29/19 10:11 DCW [id number]) Posture Evaluation Position Standing Head/C-Spine Posture Forward Head Scapula Posture (L) Protracted,(R) Protracted Comments Posture Comments Measurement from spine to medial boarder of scapula at level of scapular spine: L = 8 cm, R = 8 cm Measurement from spine to inferior angle of scapula: L = 12 cm, R= 13 cm PT-OP-K Range of Motion Start: 05/01/19 15:22 Freq: Status: Active Protocol: Document 06/29/19 09:45 DCW (Rec: 06/29/19 10:11 DCW [id number]) Shoulder Goniometric Range of Motion Shoulder Right Active Shoulder ROM WFL No Testing Position Sitting Flexion 132 Abduction 135 External Rotation at 0 degrees Abduction 64 Internal Rotation Behind Back (text) T10 Left Active Shoulder ROM WFL No Testing Position Sitting Flexion 112 Abduction 103 External Rotation at 0 degrees Abduction 62 Internal Rotation Behind Back (text) L2 PT-OP-L Special Tests Start: 05/01/19 15:22 Freq: Status: Active Protocol: Document 06/29/19 09:45 DCW (Rec: 06/29/19 10:11 DCW [id number]) Special Tests Shoulder Special Tests Painful Arc Test Results L Positive Passive ER Rotator Cuff Test Results L Positive Lift-Off Rotator Cuff Test Results Negative Adame Irving Impingement Test Results L Positive Empty Can Test Results Negative Drop Arm Rotator Cuff Test Results Negative Belly Press Test Results Negative PT-OP-M Strength Start: 05/01/19 15:22 Freq: Status: Active Protocol: Document 06/29/19 09:45 DCW (Rec: 06/29/19 10:11 DCW [id number]) Shoulder Strength Shoulder Manual Muscle Testing Right Flexion 3- Fair- Abduction (C5) 4- Good- External Rotation 4 Good Left Flexion 3- Fair- Abduction (C5) 3- Fair- External Rotation 4 Good PT-OP-Q Treatments Start: 05/01/19 15:22 Freq: Status: Active Protocol: Document 08/02/19 09:45 DCW (Rec: 08/02/19 10:30 DCW [id number]) Cardio Equipment Upper Body Ergometer (UBE) Duration (Minutes) 6 RPM 60 Seat Position 15 Height 4.5 Gym Equipment Therapeutic Ball Isometric hold Exercise Details Isometric hold vs perturbations Ball Size/Color Blue - 45 cm Body Position Supine Comments 90 degree shoulder flexion Therapeutic Exercises Supine Exercises Horizontal Adduction Supine Exercise Name Horizontal Adduction Side bilateral Resistance 4# Reps/Minutes x20 Supine Punch Supine Exercise Name Serratus punch Side bilateral Resistance 4# Reps/Minutes x20 Sitting Exercises PROM Sitting Exercise Name Shoulder Flexion/Abduction Side bilateral Equipment Used Pulleys Standing Exercises Shoulder Press Standing Exercise Name Shoulder Press Side bilateral Resistance 4# Flexion Standing Exercise Name Shoulder Flexion Side bilateral Resistance 4# Abduction Standing Exercise Name Shoulder Abduction Side bilateral Resistance 4# IR Stretch Standing Exercise Name Shoulder IR Side left Equipment Used Pulleys Manual Therapy Treatment Soft Tissue Mobilization Subscap Body Location L Subscap Mobilization Type Strumming,Sustained Pressure, Trigger Point Release Joint Mobilizations 1 Joint L GH Direction Inferior Grade III Body Position Supine Other Other Manual Treatments ROM, MMT, Shoulder testing PT-OP-T Assessment and Plan Start: 05/01/19 15:22 Freq: Status: Active Protocol: Document 08/02/19 09:45 DCW (Rec: 08/02/19 10:30 DCW [id number]) Physical Therapy Assessment Impairments Impairments Activity Tolerance,Functional Mobility,Pain,Posture,ROM,Soft Tissue Mobility,Strength Goals Five Impairment Pt presents with increased forward shoulder posture Agricultural Chemicals Inspector Goal (LTG) Measurement from spine to medial boarder of scapula to at most 8 cm bilaterally LTG Duration Met Four Impairment Pt displays limited shoulder ROM bilaterally Agricultural Chemicals Inspector Goal (LTG) Right active flexion and abduction to 140? Left active flexion and abduction to 110? LTG Duration 08/30/19 - Improving Three Impairment Pt unable to tolerate working in his workshop due to pain Short Term Goal (STG) Pt to demonstrate overhead positioning of his bilateral arms with no increased pain STG Duration 07/30/19 - Improving Agricultural Chemicals Inspector Goal (LTG) Pt to lift >45# without an increase in symptoms in his shoulders LTG Duration 08/30/19 Two Impairment Pt has difficulty dressing himself secondary to shoulder pain Residential Goal (LTG) Pt to don/doff jacket without an increase in shoulder pain bilaterally LTG Duration 08/30/19 - Improving One Impairment Pt does not have appropriate home exercise program Short Term Goal (STG) Pt to be independent and compliant with an appropriate HEP STG Duration Met Assessment Summary Assessment Pt continues to show great improvement with his shoulder, improved functional mobility, minimal complaints of pain. Physical Therapy Plan Frequency and Duration Frequency of Treatment 2x/Week Duration of Treatment Two months Plan of Care Start Date 06/29/19 Plan of Care End Date 08/30/19 Therapeutic Interventions Therapeutic Interventions Home Exercise Program,Joint Mobilizations,Manual Therapy, Neuromuscular Re-education, Patient/Caregiver Education, Self-Care/Home Management,Soft Tissue Mobilization, Therapeutic Activities, Therapeutic Exercises Modalities Cold Pack/Ice Massage,Electric Stimulation,Hot Packs Next Visit Focus/Plan Next Note Type Treatment Note Next Visit Plan Shoulder ROM, posture training , strengthening
--- NOTE | 2019-08-04 09:45 | PT.OTN ---
Current Diagnoses Other specific arthropathies, not elsewhere classified, left shoulder (08/04/19) Pain in right shoulder (08/04/19) Pain in left shoulder (08/04/19) Stiffness of right shoulder, not elsewhere classified (08/04/19) Stiffness of left shoulder, not elsewhere classified (08/04/19) Impingement syndrome of right shoulder (08/04/19) Impingement syndrome of left shoulder (08/04/19) Abnormal posture (08/04/19) Strain of muscle(s) and tendon(s) of the rotator cuff of left shoulder, subsequent encounter (08/04/19) Physical Therapy Treatment Note PT-OP-A Visit Information Start: 05/01/19 15:22 Freq: Status: Active Protocol: Document 08/04/19 09:00 DCW (Rec: 08/04/19 09:45 DCW [id number]) Out-Patient Physical Therapy Visit Information Visit Information Visit Type Treatment Note Visit Note 10/12 Visit Start Time 09:00 Visit Stop Time 09:45 Total Visit Minutes 45 Visit Number 16 Number of SEBD TEACHER Visits 0 Evaluation Information Evaluation Date 05/01/19 PT-OP-B Current Condition Start: 05/01/19 15:22 Freq: Status: Active Protocol: Document 05/01/19 12:00 DCW (Rec: 05/01/19 17:53 DCW [id number]) Current Condition History of Current Condition Onset Date Three months Current Complaints Bilateral shoulder pain, immobility History of Current Condition Pt is a 74 year old male presenting with a three month history of left shoulder pain. Pt reports that he was reaching back to y to put a backpack on, and suddenly got a tremendous pain in his left shoulder. Pt has since been experiencing increased pain with any backward reaching, like trying to put on a jacket or reaching back for a seat belt. Pt also notes pain lifting more than 25 lbs , or lifting his arm overhead. Pt additionally has noticed that a few weeks ago, his right shoulder has now been bothering him with lifting or overhead motion as well, although this does not appear to be associated with any one event. Pt reports he had Dr. Ugarte check his shoulder, and was told that it won't get better without PT, so here I am. Pt has been seen in this facility multiple times, most recently for pre- and post-op therapy for a TKA. Treatment Goals Patient/Caregiver Goals Improve strength and function of his shoulders so he can return to his workshop with no limitations. PT-OP-C Subjective Start: 05/01/19 15:22 Freq: Status: Active Protocol: Document 08/04/19 09:00 DCW (Rec: 08/04/19 09:45 DCW [id number]) OP-PT Subjective Patient Comments Patient Comments I'm feeling better enought that I'm frustrated I don't have full function of my shoulder. PT-OP-E Functional Tests Start: 05/01/19 15:22 Freq: Status: Active Protocol: Document 06/29/19 09:45 DCW (Rec: 06/29/19 10:11 DCW [id number]) Functional Tests Apley's Scratch Test Action 1- Left Lateral opposite shoulder Action 1- Right Posterior opposite shoulder Action 2- Left C3 Action 2- Right T2 Action 3- Left L2 Action 3- Right T10 PT-OP-F Manual Assessment Start: 05/01/19 15:22 Freq: Status: Active Protocol: Document 06/29/19 09:45 DCW (Rec: 06/29/19 10:11 DCW [id number]) Manual Assessments Soft Tissue Assessment Soft Tissue Mobility Assessment Moderate tone - left subscap. bilateral Upper Trap, tenderness to palpation 2/4: Pain with wincing PT-OP-J Posture/Palpation/Skin Start: 05/01/19 15:22 Freq: Status: Active Protocol: Document 06/29/19 09:45 DCW (Rec: 06/29/19 10:11 DCW [id number]) Posture Evaluation Position Standing Head/C-Spine Posture Forward Head Scapula Posture (L) Protracted,(R) Protracted Comments Posture Comments Measurement from spine to medial boarder of scapula at level of scapular spine: L = 8 cm, R = 8 cm Measurement from spine to inferior angle of scapula: L = 12 cm, R= 13 cm PT-OP-K Range of Motion Start: 05/01/19 15:22 Freq: Status: Active Protocol: Document 06/29/19 09:45 DCW (Rec: 06/29/19 10:11 DCW [id number]) Shoulder Goniometric Range of Motion Shoulder Right Active Shoulder ROM WFL No Testing Position Sitting Flexion 132 Abduction 135 External Rotation at 0 degrees Abduction 64 Internal Rotation Behind Back (text) T10 Left Active Shoulder ROM WFL No Testing Position Sitting Flexion 112 Abduction 103 External Rotation at 0 degrees Abduction 62 Internal Rotation Behind Back (text) L2 PT-OP-L Special Tests Start: 05/01/19 15:22 Freq: Status: Active Protocol: Document 06/29/19 09:45 DCW (Rec: 06/29/19 10:11 DCW [id number]) Special Tests Shoulder Special Tests Painful Arc Test Results L Positive Passive ER Rotator Cuff Test Results L Positive Lift-Off Rotator Cuff Test Results Negative Adame Irving Impingement Test Results L Positive Empty Can Test Results Negative Drop Arm Rotator Cuff Test Results Negative Belly Press Test Results Negative PT-OP-M Strength Start: 05/01/19 15:22 Freq: Status: Active Protocol: Document 06/29/19 09:45 DCW (Rec: 06/29/19 10:11 DCW [id number]) Shoulder Strength Shoulder Manual Muscle Testing Right Flexion 3- Fair- Abduction (C5) 4- Good- External Rotation 4 Good Left Flexion 3- Fair- Abduction (C5) 3- Fair- External Rotation 4 Good PT-OP-Q Treatments Start: 05/01/19 15:22 Freq: Status: Active Protocol: Document 08/04/19 09:00 DCW (Rec: 08/04/19 09:45 DCW [id number]) Cardio Equipment Upper Body Ergometer (UBE) Duration (Minutes) 6 RPM 60 Seat Position 15 Height 4.5 Therapeutic Exercises Standing Exercises Shoulder Press Standing Exercise Name Shoulder Press Side bilateral Resistance 4# Flexion Standing Exercise Name Shoulder Flexion Side bilateral Resistance 4# Abduction Standing Exercise Name Shoulder Abduction Side bilateral Resistance 4# Extension Standing Exercise Name Shoulder Extension Side bilateral Resistance Lv 4 Equipment Used T-band Rows Standing Exercise Name Rows Side bilateral Resistance Lv 4 Equipment Used T-band Manual Therapy Treatment Soft Tissue Mobilization Subscap Body Location L Subscap Mobilization Type Strumming,Sustained Pressure, Trigger Point Release Joint Mobilizations 1 Joint L GH Direction Inferior Grade III Body Position Supine PT-OP-T Assessment and Plan Start: 05/01/19 15:22 Freq: Status: Active Protocol: Document 08/04/19 09:00 DCW (Rec: 08/04/19 09:45 DCW [id number]) Physical Therapy Assessment Impairments Impairments Activity Tolerance,Functional Mobility,Pain,Posture,ROM,Soft Tissue Mobility,Strength Goals Five Impairment Pt presents with increased forward shoulder posture Fpc Goal (LTG) Measurement from spine to medial boarder of scapula to at most 8 cm bilaterally LTG Duration Met Four Impairment Pt displays limited shoulder ROM bilaterally Fpc Goal (LTG) Right active flexion and abduction to 140? Left active flexion and abduction to 110? LTG Duration 08/30/19 - Improving Three Impairment Pt unable to tolerate working in his workshop due to pain Short Term Goal (STG) Pt to demonstrate overhead positioning of his bilateral arms with no increased pain STG Duration 07/30/19 - Improving Forensic Nurse Goal (LTG) Pt to lift >45# without an increase in symptoms in his shoulders LTG Duration 08/30/19 Two Impairment Pt has difficulty dressing himself secondary to shoulder pain Fpc Goal (LTG) Pt to don/doff jacket without an increase in shoulder pain bilaterally LTG Duration 08/30/19 - Improving One Impairment Pt does not have appropriate home exercise program Short Term Goal (STG) Pt to be independent and compliant with an appropriate HEP STG Duration Met Assessment Summary Assessment Pt mobility limited near end- range with most activities, however pain has been greatly reduced. Physical Therapy Plan Frequency and Duration Frequency of Treatment 2x/Week Duration of Treatment Two months Plan of Care Start Date 06/29/19 Plan of Care End Date 08/30/19 Therapeutic Interventions Therapeutic Interventions Home Exercise Program,Joint Mobilizations,Manual Therapy, Neuromuscular Re-education, Patient/Caregiver Education, Self-Care/Home Management,Soft Tissue Mobilization, Therapeutic Activities, Therapeutic Exercises Modalities Cold Pack/Ice Massage,Electric Stimulation,Hot Packs Next Visit Focus/Plan Next Note Type Treatment Note Next Visit Plan Shoulder ROM, posture training , strengthening
--- NOTE | 2019-08-09 10:30 | PT.OTN ---
Current Diagnoses Other specific arthropathies, not elsewhere classified, left shoulder (08/09/19) Pain in right shoulder (08/09/19) Pain in left shoulder (08/09/19) Stiffness of right shoulder, not elsewhere classified (08/09/19) Stiffness of left shoulder, not elsewhere classified (08/09/19) Impingement syndrome of right shoulder (08/09/19) Impingement syndrome of left shoulder (08/09/19) Abnormal posture (08/09/19) Strain of muscle(s) and tendon(s) of the rotator cuff of left shoulder, subsequent encounter (08/09/19) Physical Therapy Treatment Note PT-OP-A Visit Information Start: 05/01/19 15:22 Freq: Status: Active Protocol: Document 08/09/19 09:45 DCW (Rec: 08/09/19 10:29 DCW [id number]) Out-Patient Physical Therapy Visit Information Visit Information Visit Type Treatment Note Visit Note 11/11 Visit Start Time 09:45 Visit Stop Time 10:30 Total Visit Minutes 45 Visit Number 17 Number of SET UP MACHINIST Visits 0 Evaluation Information Evaluation Date 05/01/19 PT-OP-B Current Condition Start: 05/01/19 15:22 Freq: Status: Active Protocol: Document 05/01/19 12:00 DCW (Rec: 05/01/19 17:53 DCW [id number]) Current Condition History of Current Condition Onset Date Three months Current Complaints Bilateral shoulder pain, immobility History of Current Condition Pt is a 74 year old male presenting with a three month history of left shoulder pain. Pt reports that he was reaching back to y to put a backpack on, and suddenly got a tremendous pain in his left shoulder. Pt has since been experiencing increased pain with any backward reaching, like trying to put on a jacket or reaching back for a seat belt. Pt also notes pain lifting more than 25 lbs , or lifting his arm overhead. Pt additionally has noticed that a few weeks ago, his right shoulder has now been bothering him with lifting or overhead motion as well, although this does not appear to be associated with any one event. Pt reports he had Dr. Ugarte check his shoulder, and was told that it won't get better without PT, so here I am. Pt has been seen in this facility multiple times, most recently for pre- and post-op therapy for a TKA. Treatment Goals Patient/Caregiver Goals Improve strength and function of his shoulders so he can return to his workshop with no limitations. PT-OP-C Subjective Start: 05/01/19 15:22 Freq: Status: Active Protocol: Document 08/09/19 09:45 DCW (Rec: 08/09/19 10:29 DCW [id number]) OP-PT Subjective Patient Comments Patient Comments Pt reports he is feeling alright today. I don't know why. I got up this morning, felt better than yesterday. PT-OP-E Functional Tests Start: 05/01/19 15:22 Freq: Status: Active Protocol: Document 06/29/19 09:45 DCW (Rec: 06/29/19 10:11 DCW [id number]) Functional Tests Apley's Scratch Test Action 1- Left Lateral opposite shoulder Action 1- Right Posterior opposite shoulder Action 2- Left C3 Action 2- Right T2 Action 3- Left L2 Action 3- Right T10 PT-OP-F Manual Assessment Start: 05/01/19 15:22 Freq: Status: Active Protocol: Document 06/29/19 09:45 DCW (Rec: 06/29/19 10:11 DCW [id number]) Manual Assessments Soft Tissue Assessment Soft Tissue Mobility Assessment Moderate tone - left subscap. bilateral Upper Trap, tenderness to palpation 2/4: Pain with wincing PT-OP-J Posture/Palpation/Skin Start: 05/01/19 15:22 Freq: Status: Active Protocol: Document 06/29/19 09:45 DCW (Rec: 06/29/19 10:11 DCW [id number]) Posture Evaluation Position Standing Head/C-Spine Posture Forward Head Scapula Posture (L) Protracted,(R) Protracted Comments Posture Comments Measurement from spine to medial boarder of scapula at level of scapular spine: L = 8 cm, R = 8 cm Measurement from spine to inferior angle of scapula: L = 12 cm, R= 13 cm PT-OP-K Range of Motion Start: 05/01/19 15:22 Freq: Status: Active Protocol: Document 06/29/19 09:45 DCW (Rec: 06/29/19 10:11 DCW [id number]) Shoulder Goniometric Range of Motion Shoulder Right Active Shoulder ROM WFL No Testing Position Sitting Flexion 132 Abduction 135 External Rotation at 0 degrees Abduction 64 Internal Rotation Behind Back (text) T10 Left Active Shoulder ROM WFL No Testing Position Sitting Flexion 112 Abduction 103 External Rotation at 0 degrees Abduction 62 Internal Rotation Behind Back (text) L2 PT-OP-L Special Tests Start: 05/01/19 15:22 Freq: Status: Active Protocol: Document 06/29/19 09:45 DCW (Rec: 06/29/19 10:11 DCW [id number]) Special Tests Shoulder Special Tests Painful Arc Test Results L Positive Passive ER Rotator Cuff Test Results L Positive Lift-Off Rotator Cuff Test Results Negative Adame Irving Impingement Test Results L Positive Empty Can Test Results Negative Drop Arm Rotator Cuff Test Results Negative Belly Press Test Results Negative PT-OP-M Strength Start: 05/01/19 15:22 Freq: Status: Active Protocol: Document 06/29/19 09:45 DCW (Rec: 06/29/19 10:11 DCW [id number]) Shoulder Strength Shoulder Manual Muscle Testing Right Flexion 3- Fair- Abduction (C5) 4- Good- External Rotation 4 Good Left Flexion 3- Fair- Abduction (C5) 3- Fair- External Rotation 4 Good PT-OP-Q Treatments Start: 05/01/19 15:22 Freq: Status: Active Protocol: Document 08/09/19 09:45 DCW (Rec: 08/09/19 10:29 DCW [id number]) Cardio Equipment Upper Body Ergometer (UBE) Duration (Minutes) 6 RPM 60 Seat Position 15 Height 4.5 Gym Equipment Therapeutic Ball Isometric hold Exercise Details Isometric hold vs perturbations Ball Size/Color Blue - 45 cm Body Position Supine Comments 90 degree shoulder flexion Therapeutic Exercises Sitting Exercises PROM Sitting Exercise Name Shoulder Flexion/Abduction Side bilateral Equipment Used Pulleys Standing Exercises Shoulder Press Standing Exercise Name Shoulder Press Side bilateral Resistance 4# Flexion Standing Exercise Name Shoulder Flexion Side bilateral Resistance 4# Abduction Standing Exercise Name Shoulder Abduction Side bilateral Resistance 4# IR Stretch Standing Exercise Name Shoulder IR Side left Equipment Used Pulleys Extension Standing Exercise Name Shoulder Extension Side bilateral Resistance Lv 4 Equipment Used T-band Rows Standing Exercise Name Rows Side bilateral Resistance Lv 4 Equipment Used T-band Manual Therapy Treatment Soft Tissue Mobilization Subscap Body Location L Subscap Mobilization Type Strumming,Sustained Pressure, Trigger Point Release Joint Mobilizations 1 Joint L GH Direction Inferior Grade III Body Position Supine PT-OP-T Assessment and Plan Start: 05/01/19 15:22 Freq: Status: Active Protocol: Document 08/09/19 09:45 DCW (Rec: 08/09/19 10:29 DCW [id number]) Physical Therapy Assessment Impairments Impairments Activity Tolerance,Functional Mobility,Pain,Posture,ROM,Soft Tissue Mobility,Strength Goals Five Impairment Pt presents with increased forward shoulder posture Mcc Goal (LTG) Measurement from spine to medial boarder of scapula to at most 8 cm bilaterally LTG Duration Met Four Impairment Pt displays limited shoulder ROM bilaterally Mcc Goal (LTG) Right active flexion and abduction to 140? Left active flexion and abduction to 110? LTG Duration 08/30/19 - Improving Three Impairment Pt unable to tolerate working in his workshop due to pain Short Term Goal (STG) Pt to demonstrate overhead positioning of his bilateral arms with no increased pain STG Duration 07/30/19 - Improving Mcc Goal (LTG) Pt to lift >45# without an increase in symptoms in his shoulders LTG Duration 08/30/19 Two Impairment Pt has difficulty dressing himself secondary to shoulder pain Mcc Goal (LTG) Pt to don/doff jacket without an increase in shoulder pain bilaterally LTG Duration 08/30/19 - Improving One Impairment Pt does not have appropriate home exercise program Short Term Goal (STG) Pt to be independent and compliant with an appropriate HEP STG Duration Met Assessment Summary Assessment Pt continues to show good progress, reporting much less overall pain, has been able to work in his workshop pain- free. Physical Therapy Plan Frequency and Duration Frequency of Treatment 2x/Week Duration of Treatment Two months Plan of Care Start Date 06/29/19 Plan of Care End Date 08/30/19 Therapeutic Interventions Therapeutic Interventions Home Exercise Program,Joint Mobilizations,Manual Therapy, Neuromuscular Re-education, Patient/Caregiver Education, Self-Care/Home Management,Soft Tissue Mobilization, Therapeutic Activities, Therapeutic Exercises Modalities Cold Pack/Ice Massage,Electric Stimulation,Hot Packs Next Visit Focus/Plan Next Note Type Treatment Note Next Visit Plan Shoulder ROM, posture training , strengthening
--- NOTE | 2019-08-11 09:46 | PT.OTN ---
Current Diagnoses Other specific arthropathies, not elsewhere classified, left shoulder (08/11/19) Pain in right shoulder (08/11/19) Pain in left shoulder (08/11/19) Stiffness of right shoulder, not elsewhere classified (08/11/19) Stiffness of left shoulder, not elsewhere classified (08/11/19) Impingement syndrome of right shoulder (08/11/19) Impingement syndrome of left shoulder (08/11/19) Abnormal posture (08/11/19) Strain of muscle(s) and tendon(s) of the rotator cuff of left shoulder, subsequent encounter (08/11/19) Physical Therapy Treatment Note PT-OP-A Visit Information Start: 05/01/19 15:22 Freq: Status: Active Protocol: Document 08/11/19 09:00 DCW (Rec: 08/11/19 09:46 DCW [id number]) Out-Patient Physical Therapy Visit Information Visit Information Visit Type Treatment Note Visit Note 12/12 Visit Start Time 09:00 Visit Stop Time 09:45 Total Visit Minutes 45 Visit Number 18 Number of CAMP PROGRAM DIRECTOR Visits 0 Evaluation Information Evaluation Date 05/01/19 PT-OP-B Current Condition Start: 05/01/19 15:22 Freq: Status: Active Protocol: Document 05/01/19 12:00 DCW (Rec: 05/01/19 17:53 DCW [id number]) Current Condition History of Current Condition Onset Date Three months Current Complaints Bilateral shoulder pain, immobility History of Current Condition Pt is a 74 year old male presenting with a three month history of left shoulder pain. Pt reports that he was reaching back to y to put a backpack on, and suddenly got a tremendous pain in his left shoulder. Pt has since been experiencing increased pain with any backward reaching, like trying to put on a jacket or reaching back for a seat belt. Pt also notes pain lifting more than 25 lbs , or lifting his arm overhead. Pt additionally has noticed that a few weeks ago, his right shoulder has now been bothering him with lifting or overhead motion as well, although this does not appear to be associated with any one event. Pt reports he had Dr. Ugarte check his shoulder, and was told that it won't get better without PT, so here I am. Pt has been seen in this facility multiple times, most recently for pre- and post-op therapy for a TKA. Treatment Goals Patient/Caregiver Goals Improve strength and function of his shoulders so he can return to his workshop with no limitations. PT-OP-C Subjective Start: 05/01/19 15:22 Freq: Status: Active Protocol: Document 08/11/19 09:00 DCW (Rec: 08/11/19 09:46 DCW [id number]) OP-PT Subjective Patient Comments Patient Comments Pt's shoulders are feeling pretty good today. PT-OP-E Functional Tests Start: 05/01/19 15:22 Freq: Status: Active Protocol: Document 06/29/19 09:45 DCW (Rec: 06/29/19 10:11 DCW [id number]) Functional Tests Apley's Scratch Test Action 1- Left Lateral opposite shoulder Action 1- Right Posterior opposite shoulder Action 2- Left C3 Action 2- Right T2 Action 3- Left L2 Action 3- Right T10 PT-OP-F Manual Assessment Start: 05/01/19 15:22 Freq: Status: Active Protocol: Document 06/29/19 09:45 DCW (Rec: 06/29/19 10:11 DCW [id number]) Manual Assessments Soft Tissue Assessment Soft Tissue Mobility Assessment Moderate tone - left subscap. bilateral Upper Trap, tenderness to palpation 2/4: Pain with wincing PT-OP-J Posture/Palpation/Skin Start: 05/01/19 15:22 Freq: Status: Active Protocol: Document 06/29/19 09:45 DCW (Rec: 06/29/19 10:11 DCW [id number]) Posture Evaluation Position Standing Head/C-Spine Posture Forward Head Scapula Posture (L) Protracted,(R) Protracted Comments Posture Comments Measurement from spine to medial boarder of scapula at level of scapular spine: L = 8 cm, R = 8 cm Measurement from spine to inferior angle of scapula: L = 12 cm, R= 13 cm PT-OP-K Range of Motion Start: 05/01/19 15:22 Freq: Status: Active Protocol: Document 06/29/19 09:45 DCW (Rec: 06/29/19 10:11 DCW [id number]) Shoulder Goniometric Range of Motion Shoulder Right Active Shoulder ROM WFL No Testing Position Sitting Flexion 132 Abduction 135 External Rotation at 0 degrees Abduction 64 Internal Rotation Behind Back (text) T10 Left Active Shoulder ROM WFL No Testing Position Sitting Flexion 112 Abduction 103 External Rotation at 0 degrees Abduction 62 Internal Rotation Behind Back (text) L2 PT-OP-L Special Tests Start: 05/01/19 15:22 Freq: Status: Active Protocol: Document 06/29/19 09:45 DCW (Rec: 06/29/19 10:11 DCW [id number]) Special Tests Shoulder Special Tests Painful Arc Test Results L Positive Passive ER Rotator Cuff Test Results L Positive Lift-Off Rotator Cuff Test Results Negative Adame Irving Impingement Test Results L Positive Empty Can Test Results Negative Drop Arm Rotator Cuff Test Results Negative Belly Press Test Results Negative PT-OP-M Strength Start: 05/01/19 15:22 Freq: Status: Active Protocol: Document 06/29/19 09:45 DCW (Rec: 06/29/19 10:11 DCW [id number]) Shoulder Strength Shoulder Manual Muscle Testing Right Flexion 3- Fair- Abduction (C5) 4- Good- External Rotation 4 Good Left Flexion 3- Fair- Abduction (C5) 3- Fair- External Rotation 4 Good PT-OP-Q Treatments Start: 05/01/19 15:22 Freq: Status: Active Protocol: Document 08/11/19 09:00 DCW (Rec: 08/11/19 09:46 DCW [id number]) Cardio Equipment Upper Body Ergometer (UBE) Duration (Minutes) 6 RPM 60 Seat Position 15 Height 4.5 Gym Equipment Therapeutic Ball Isometric hold Exercise Details Isometric hold vs perturbations Ball Size/Color Blue - 45 cm Body Position Supine Comments 90 degree shoulder flexion Therapeutic Exercises Supine Exercises Horizontal Adduction Supine Exercise Name Horizontal Adduction Side bilateral Resistance 4# Reps/Minutes x20 Supine Punch Supine Exercise Name Serratus punch Side bilateral Resistance 4# Reps/Minutes x20 Sitting Exercises PROM Sitting Exercise Name Shoulder Flexion/Abduction Side bilateral Equipment Used Pulleys Standing Exercises Shoulder Press Standing Exercise Name Shoulder Press Side bilateral Resistance 4# Flexion Standing Exercise Name Shoulder Flexion Side bilateral Resistance 4# Abduction Standing Exercise Name Shoulder Abduction Side bilateral Resistance 4# IR Stretch Standing Exercise Name Shoulder IR Side left Equipment Used Pulleys Extension Standing Exercise Name Shoulder Extension Side bilateral Resistance Lv 4 Equipment Used T-band Rows Standing Exercise Name Rows Side bilateral Resistance Lv 4 Equipment Used T-band Manual Therapy Treatment Soft Tissue Mobilization Subscap Body Location L Subscap Mobilization Type Strumming,Sustained Pressure, Trigger Point Release Joint Mobilizations 1 Joint L GH Direction Inferior Grade III Body Position Supine PT-OP-T Assessment and Plan Start: 05/01/19 15:22 Freq: Status: Active Protocol: Document 08/11/19 09:00 DCW (Rec: 08/11/19 09:46 DCW [id number]) Physical Therapy Assessment Impairments Impairments Activity Tolerance,Functional Mobility,Pain,Posture,ROM,Soft Tissue Mobility,Strength Goals Five Impairment Pt presents with increased forward shoulder posture Jail Goal (LTG) Measurement from spine to medial boarder of scapula to at most 8 cm bilaterally LTG Duration Met Four Impairment Pt displays limited shoulder ROM bilaterally Knitting Tester Goal (LTG) Right active flexion and abduction to 140? Left active flexion and abduction to 110? LTG Duration 08/30/19 - Improving Three Impairment Pt unable to tolerate working in his workshop due to pain Short Term Goal (STG) Pt to demonstrate overhead positioning of his bilateral arms with no increased pain STG Duration 07/30/19 - Improving Knitting Tester Goal (LTG) Pt to lift >45# without an increase in symptoms in his shoulders LTG Duration 08/30/19 Two Impairment Pt has difficulty dressing himself secondary to shoulder pain Knitting Tester Goal (LTG) Pt to don/doff jacket without an increase in shoulder pain bilaterally LTG Duration 08/30/19 - Improving One Impairment Pt does not have appropriate home exercise program Short Term Goal (STG) Pt to be independent and compliant with an appropriate HEP STG Duration Met Assessment Summary Assessment PROM nearing normal limits with minimal pain. Pt having success with home exercises. Physical Therapy Plan Frequency and Duration Frequency of Treatment 2x/Week Duration of Treatment Two months Plan of Care Start Date 06/29/19 Plan of Care End Date 08/30/19 Therapeutic Interventions Therapeutic Interventions Home Exercise Program,Joint Mobilizations,Manual Therapy, Neuromuscular Re-education, Patient/Caregiver Education, Self-Care/Home Management,Soft Tissue Mobilization, Therapeutic Activities, Therapeutic Exercises Modalities Cold Pack/Ice Massage,Electric Stimulation,Hot Packs Next Visit Focus/Plan Next Note Type Treatment Note Next Visit Plan Shoulder ROM, posture training , strengthening
--- NOTE | 2019-08-16 10:29 | PT.OTN ---
Current Diagnoses Other specific arthropathies, not elsewhere classified, left shoulder (08/16/19) Pain in right shoulder (08/16/19) Pain in left shoulder (08/16/19) Stiffness of right shoulder, not elsewhere classified (08/16/19) Stiffness of left shoulder, not elsewhere classified (08/16/19) Impingement syndrome of right shoulder (08/16/19) Impingement syndrome of left shoulder (08/16/19) Abnormal posture (08/16/19) Strain of muscle(s) and tendon(s) of the rotator cuff of left shoulder, subsequent encounter (08/16/19) Physical Therapy Treatment Note PT-OP-A Visit Information Start: 05/01/19 15:22 Freq: Status: Active Protocol: Document 08/16/19 09:45 DCW (Rec: 08/16/19 10:29 DCW [id number]) Out-Patient Physical Therapy Visit Information Visit Information Visit Type Treatment Note Visit Note 12/12 Visit Start Time 09:45 Visit Stop Time 10:30 Total Visit Minutes 45 Visit Number 19 Number of AUTO CAMP ATTENDANT Visits 0 Evaluation Information Evaluation Date 05/01/19 PT-OP-B Current Condition Start: 05/01/19 15:22 Freq: Status: Active Protocol: Document 05/01/19 12:00 DCW (Rec: 05/01/19 17:53 DCW [id number]) Current Condition History of Current Condition Onset Date Three months Current Complaints Bilateral shoulder pain, immobility History of Current Condition Pt is a 74 year old male presenting with a three month history of left shoulder pain. Pt reports that he was reaching back to y to put a backpack on, and suddenly got a tremendous pain in his left shoulder. Pt has since been experiencing increased pain with any backward reaching, like trying to put on a jacket or reaching back for a seat belt. Pt also notes pain lifting more than 25 lbs , or lifting his arm overhead. Pt additionally has noticed that a few weeks ago, his right shoulder has now been bothering him with lifting or overhead motion as well, although this does not appear to be associated with any one event. Pt reports he had Dr. Ugarte check his shoulder, and was told that it won't get better without PT, so here I am. Pt has been seen in this facility multiple times, most recently for pre- and post-op therapy for a TKA. Treatment Goals Patient/Caregiver Goals Improve strength and function of his shoulders so he can return to his workshop with no limitations. PT-OP-C Subjective Start: 05/01/19 15:22 Freq: Status: Active Protocol: Document 08/16/19 09:45 DCW (Rec: 08/16/19 10:29 DCW [id number]) OP-PT Subjective Patient Comments Patient Comments Pt reports his shoulder feels not bad, but admits he fell down yesterday, and his right hip is bothering him today. PT-OP-E Functional Tests Start: 05/01/19 15:22 Freq: Status: Active Protocol: Document 06/29/19 09:45 DCW (Rec: 06/29/19 10:11 DCW [id number]) Functional Tests Apley's Scratch Test Action 1- Left Lateral opposite shoulder Action 1- Right Posterior opposite shoulder Action 2- Left C3 Action 2- Right T2 Action 3- Left L2 Action 3- Right T10 PT-OP-F Manual Assessment Start: 05/01/19 15:22 Freq: Status: Active Protocol: Document 06/29/19 09:45 DCW (Rec: 06/29/19 10:11 DCW [id number]) Manual Assessments Soft Tissue Assessment Soft Tissue Mobility Assessment Moderate tone - left subscap. bilateral Upper Trap, tenderness to palpation 2/4: Pain with wincing PT-OP-J Posture/Palpation/Skin Start: 05/01/19 15:22 Freq: Status: Active Protocol: Document 06/29/19 09:45 DCW (Rec: 06/29/19 10:11 DCW [id number]) Posture Evaluation Position Standing Head/C-Spine Posture Forward Head Scapula Posture (L) Protracted,(R) Protracted Comments Posture Comments Measurement from spine to medial boarder of scapula at level of scapular spine: L = 8 cm, R = 8 cm Measurement from spine to inferior angle of scapula: L = 12 cm, R= 13 cm PT-OP-K Range of Motion Start: 05/01/19 15:22 Freq: Status: Active Protocol: Document 06/29/19 09:45 DCW (Rec: 06/29/19 10:11 DCW [id number]) Shoulder Goniometric Range of Motion Shoulder Right Active Shoulder ROM WFL No Testing Position Sitting Flexion 132 Abduction 135 External Rotation at 0 degrees Abduction 64 Internal Rotation Behind Back (text) T10 Left Active Shoulder ROM WFL No Testing Position Sitting Flexion 112 Abduction 103 External Rotation at 0 degrees Abduction 62 Internal Rotation Behind Back (text) L2 PT-OP-L Special Tests Start: 05/01/19 15:22 Freq: Status: Active Protocol: Document 06/29/19 09:45 DCW (Rec: 06/29/19 10:11 DCW [id number]) Special Tests Shoulder Special Tests Painful Arc Test Results L Positive Passive ER Rotator Cuff Test Results L Positive Lift-Off Rotator Cuff Test Results Negative Adame Irving Impingement Test Results L Positive Empty Can Test Results Negative Drop Arm Rotator Cuff Test Results Negative Belly Press Test Results Negative PT-OP-M Strength Start: 05/01/19 15:22 Freq: Status: Active Protocol: Document 06/29/19 09:45 DCW (Rec: 06/29/19 10:11 DCW [id number]) Shoulder Strength Shoulder Manual Muscle Testing Right Flexion 3- Fair- Abduction (C5) 4- Good- External Rotation 4 Good Left Flexion 3- Fair- Abduction (C5) 3- Fair- External Rotation 4 Good PT-OP-Q Treatments Start: 05/01/19 15:22 Freq: Status: Active Protocol: Document 08/16/19 09:45 DCW (Rec: 08/16/19 10:29 DCW [id number]) Cardio Equipment Upper Body Ergometer (UBE) Duration (Minutes) 6 RPM 60 Seat Position 15 Height 4.5 Gym Equipment Cable Column (Body Solid) Lat Pull Down Resistance 30#->50# Therapeutic Ball Isometric hold Exercise Details Isometric hold vs perturbations Ball Size/Color Blue - 45 cm Body Position Supine Comments 90 degree shoulder flexion Therapeutic Exercises Sitting Exercises PROM Sitting Exercise Name Shoulder Flexion/Abduction Side bilateral Equipment Used Pulleys Standing Exercises Body Blade Standing Exercise Name Flexion, Abduction Equipment Used Yellow blade Flexion Standing Exercise Name Shoulder Flexion Side bilateral Resistance 4# Abduction Standing Exercise Name Shoulder Abduction Side bilateral Resistance 4# Manual Therapy Treatment Soft Tissue Mobilization Subscap Body Location L Subscap Mobilization Type Strumming,Sustained Pressure, Trigger Point Release Joint Mobilizations 1 Joint L GH Direction Inferior Grade III Body Position Supine PT-OP-T Assessment and Plan Start: 05/01/19 15:22 Freq: Status: Active Protocol: Document 08/16/19 09:45 DCW (Rec: 08/16/19 10:29 DCW [id number]) Physical Therapy Assessment Impairments Impairments Activity Tolerance,Functional Mobility,Pain,Posture,ROM,Soft Tissue Mobility,Strength Goals Five Impairment Pt presents with increased forward shoulder posture 4Th Grade Math Teacher Goal (LTG) Measurement from spine to medial boarder of scapula to at most 8 cm bilaterally LTG Duration Met Four Impairment Pt displays limited shoulder ROM bilaterally Mcfp Goal (LTG) Right active flexion and abduction to 140? Left active flexion and abduction to 110? LTG Duration 08/30/19 - Improving Three Impairment Pt unable to tolerate working in his workshop due to pain Short Term Goal (STG) Pt to demonstrate overhead positioning of his bilateral arms with no increased pain STG Duration 07/30/19 - Improving 4Th Grade Math Teacher Goal (LTG) Pt to lift >45# without an increase in symptoms in his shoulders LTG Duration 08/30/19 Two Impairment Pt has difficulty dressing himself secondary to shoulder pain 4Th Grade Math Teacher Goal (LTG) Pt to don/doff jacket without an increase in shoulder pain bilaterally LTG Duration 08/30/19 - Improving One Impairment Pt does not have appropriate home exercise program Short Term Goal (STG) Pt to be independent and compliant with an appropriate HEP STG Duration Met Assessment Summary Assessment Pt shoulder progressing with function and strength. Pt not moving well overall today following his fall yesterday, however seems to be just general soreness and mild bruising, no true notable injuries. Physical Therapy Plan Frequency and Duration Frequency of Treatment 2x/Week Duration of Treatment Two months Plan of Care Start Date 06/29/19 Plan of Care End Date 08/30/19 Therapeutic Interventions Therapeutic Interventions Home Exercise Program,Joint Mobilizations,Manual Therapy, Neuromuscular Re-education, Patient/Caregiver Education, Self-Care/Home Management,Soft Tissue Mobilization, Therapeutic Activities, Therapeutic Exercises Modalities Cold Pack/Ice Massage,Electric Stimulation,Hot Packs Next Visit Focus/Plan Next Note Type Treatment Note Next Visit Plan Shoulder ROM, posture training , strengthening
--- NOTE | 2019-08-18 12:42 | PT.OTN ---
Current Diagnoses Other specific arthropathies, not elsewhere classified, left shoulder (08/18/19) Pain in right shoulder (08/18/19) Pain in left shoulder (08/18/19) Stiffness of right shoulder, not elsewhere classified (08/18/19) Stiffness of left shoulder, not elsewhere classified (08/18/19) Impingement syndrome of right shoulder (08/18/19) Impingement syndrome of left shoulder (08/18/19) Abnormal posture (08/18/19) Strain of muscle(s) and tendon(s) of the rotator cuff of left shoulder, subsequent encounter (08/18/19) Physical Therapy Treatment Note PT-OP-A Visit Information Start: 05/01/19 15:22 Freq: Status: Active Protocol: Document 08/18/19 12:05 DCW (Rec: 08/18/19 12:42 DCW [id number]) Out-Patient Physical Therapy Visit Information Visit Information Visit Type Treatment Note Visit Note 02/11 Visit Start Time 12:05 Visit Stop Time 12:45 Total Visit Minutes 40 Visit Number 20 Number of LIME SLAKER Visits 0 Evaluation Information Evaluation Date 05/01/19 PT-OP-B Current Condition Start: 05/01/19 15:22 Freq: Status: Active Protocol: Document 05/01/19 12:00 DCW (Rec: 05/01/19 17:53 DCW [id number]) Current Condition History of Current Condition Onset Date Three months Current Complaints Bilateral shoulder pain, immobility History of Current Condition Pt is a 74 year old male presenting with a three month history of left shoulder pain. Pt reports that he was reaching back to y to put a backpack on, and suddenly got a tremendous pain in his left shoulder. Pt has since been experiencing increased pain with any backward reaching, like trying to put on a jacket or reaching back for a seat belt. Pt also notes pain lifting more than 25 lbs , or lifting his arm overhead. Pt additionally has noticed that a few weeks ago, his right shoulder has now been bothering him with lifting or overhead motion as well, although this does not appear to be associated with any one event. Pt reports he had Dr. Ugarte check his shoulder, and was told that it won't get better without PT, so here I am. Pt has been seen in this facility multiple times, most recently for pre- and post-op therapy for a TKA. Treatment Goals Patient/Caregiver Goals Improve strength and function of his shoulders so he can return to his workshop with no limitations. PT-OP-C Subjective Start: 05/01/19 15:22 Freq: Status: Active Protocol: Document 08/18/19 12:05 DCW (Rec: 08/18/19 12:42 DCW [id number]) OP-PT Subjective Patient Comments Patient Comments Pt reports his hip is improving after his fall, but still a little sore. Pt does note that he was able to take his undershirt off this morning with no pain, which is the first time he's been able to do that since this all started. PT-OP-E Functional Tests Start: 05/01/19 15:22 Freq: Status: Active Protocol: Document 06/29/19 09:45 DCW (Rec: 06/29/19 10:11 DCW [id number]) Functional Tests Apley's Scratch Test Action 1- Left Lateral opposite shoulder Action 1- Right Posterior opposite shoulder Action 2- Left C3 Action 2- Right T2 Action 3- Left L2 Action 3- Right T10 PT-OP-F Manual Assessment Start: 05/01/19 15:22 Freq: Status: Active Protocol: Document 06/29/19 09:45 DCW (Rec: 06/29/19 10:11 DCW [id number]) Manual Assessments Soft Tissue Assessment Soft Tissue Mobility Assessment Moderate tone - left subscap. bilateral Upper Trap, tenderness to palpation 2/4: Pain with wincing PT-OP-J Posture/Palpation/Skin Start: 05/01/19 15:22 Freq: Status: Active Protocol: Document 06/29/19 09:45 DCW (Rec: 06/29/19 10:11 DCW [id number]) Posture Evaluation Position Standing Head/C-Spine Posture Forward Head Scapula Posture (L) Protracted,(R) Protracted Comments Posture Comments Measurement from spine to medial boarder of scapula at level of scapular spine: L = 8 cm, R = 8 cm Measurement from spine to inferior angle of scapula: L = 12 cm, R= 13 cm PT-OP-K Range of Motion Start: 05/01/19 15:22 Freq: Status: Active Protocol: Document 06/29/19 09:45 DCW (Rec: 06/29/19 10:11 DCW [id number]) Shoulder Goniometric Range of Motion Shoulder Right Active Shoulder ROM WFL No Testing Position Sitting Flexion 132 Abduction 135 External Rotation at 0 degrees Abduction 64 Internal Rotation Behind Back (text) T10 Left Active Shoulder ROM WFL No Testing Position Sitting Flexion 112 Abduction 103 External Rotation at 0 degrees Abduction 62 Internal Rotation Behind Back (text) L2 PT-OP-L Special Tests Start: 05/01/19 15:22 Freq: Status: Active Protocol: Document 06/29/19 09:45 DCW (Rec: 06/29/19 10:11 DCW [id number]) Special Tests Shoulder Special Tests Painful Arc Test Results L Positive Passive ER Rotator Cuff Test Results L Positive Lift-Off Rotator Cuff Test Results Negative Adame Irving Impingement Test Results L Positive Empty Can Test Results Negative Drop Arm Rotator Cuff Test Results Negative Belly Press Test Results Negative PT-OP-M Strength Start: 05/01/19 15:22 Freq: Status: Active Protocol: Document 06/29/19 09:45 DCW (Rec: 06/29/19 10:11 DCW [id number]) Shoulder Strength Shoulder Manual Muscle Testing Right Flexion 3- Fair- Abduction (C5) 4- Good- External Rotation 4 Good Left Flexion 3- Fair- Abduction (C5) 3- Fair- External Rotation 4 Good PT-OP-Q Treatments Start: 05/01/19 15:22 Freq: Status: Active Protocol: Document 08/18/19 12:05 DCW (Rec: 08/18/19 12:42 DCW [id number]) Cardio Equipment Upper Body Ergometer (UBE) Duration (Minutes) 6 RPM 60 Seat Position 15 Height 4.5 Gym Equipment Therapeutic Ball Isometric hold Exercise Details Isometric hold vs perturbations Ball Size/Color Blue - 45 cm Body Position Supine Comments 90 degree shoulder flexion Therapeutic Exercises Supine Exercises Horizontal Adduction Supine Exercise Name Horizontal Adduction Side bilateral Resistance 4# Reps/Minutes x20 Supine Punch Supine Exercise Name Serratus punch Side bilateral Resistance 4# Reps/Minutes x20 Sitting Exercises PROM Sitting Exercise Name Shoulder Flexion/Abduction Side bilateral Equipment Used Pulleys Standing Exercises Body Blade Standing Exercise Name Flexion, Abduction Equipment Used Yellow blade Shoulder Press Standing Exercise Name Shoulder Press Side bilateral Resistance 4# Flexion Standing Exercise Name Shoulder Flexion Side bilateral Resistance 4# Abduction Standing Exercise Name Shoulder Abduction Side bilateral Resistance 4# IR Stretch Standing Exercise Name Shoulder IR Side left Equipment Used Pulleys Manual Therapy Treatment Soft Tissue Mobilization Subscap Body Location L Subscap Mobilization Type Strumming,Sustained Pressure, Trigger Point Release Joint Mobilizations 1 Joint L GH Direction Inferior Grade III Body Position Supine PT-OP-T Assessment and Plan Start: 05/01/19 15:22 Freq: Status: Active Protocol: Document 08/18/19 12:05 DCW (Rec: 08/18/19 12:42 DCW [id number]) Physical Therapy Assessment Impairments Impairments Activity Tolerance,Functional Mobility,Pain,Posture,ROM,Soft Tissue Mobility,Strength Goals Five Impairment Pt presents with increased forward shoulder posture Inventory Analyst Goal (LTG) Measurement from spine to medial boarder of scapula to at most 8 cm bilaterally LTG Duration Met Four Impairment Pt displays limited shoulder ROM bilaterally Alf Goal (LTG) Right active flexion and abduction to 140? Left active flexion and abduction to 110? LTG Duration 08/30/19 - Improving Three Impairment Pt unable to tolerate working in his workshop due to pain Short Term Goal (STG) Pt to demonstrate overhead positioning of his bilateral arms with no increased pain STG Duration 07/30/19 - Improving Alf Goal (LTG) Pt to lift >45# without an increase in symptoms in his shoulders LTG Duration 08/30/19 Two Impairment Pt has difficulty dressing himself secondary to shoulder pain Alf Goal (LTG) Pt to don/doff jacket without an increase in shoulder pain bilaterally LTG Duration 08/30/19 - Improving One Impairment Pt does not have appropriate home exercise program Short Term Goal (STG) Pt to be independent and compliant with an appropriate HEP STG Duration Met Assessment Summary Assessment Pt showing improvement with functional UE mobility, significant decrease in daily pain and dysfunction. Pt mobility also improving following his fall earlier in the week. Physical Therapy Plan Frequency and Duration Frequency of Treatment 2x/Week Duration of Treatment Two months Plan of Care Start Date 06/29/19 Plan of Care End Date 08/30/19 Therapeutic Interventions Therapeutic Interventions Home Exercise Program,Joint Mobilizations,Manual Therapy, Neuromuscular Re-education, Patient/Caregiver Education, Self-Care/Home Management,Soft Tissue Mobilization, Therapeutic Activities, Therapeutic Exercises Modalities Cold Pack/Ice Massage,Electric Stimulation,Hot Packs Next Visit Focus/Plan Next Note Type Treatment Note Next Visit Plan Shoulder ROM, posture training , strengthening
--- NOTE | 2019-08-23 10:30 | PT.OTN ---
Current Diagnoses Other specific arthropathies, not elsewhere classified, left shoulder (08/23/19) Pain in right shoulder (08/23/19) Pain in left shoulder (08/23/19) Stiffness of right shoulder, not elsewhere classified (08/23/19) Stiffness of left shoulder, not elsewhere classified (08/23/19) Impingement syndrome of right shoulder (08/23/19) Impingement syndrome of left shoulder (08/23/19) Abnormal posture (08/23/19) Strain of muscle(s) and tendon(s) of the rotator cuff of left shoulder, subsequent encounter (08/23/19) Physical Therapy Treatment Note PT-OP-A Visit Information Start: 05/01/19 15:22 Freq: Status: Active Protocol: Document 08/23/19 09:45 DCW (Rec: 08/23/19 10:29 DCW [id number]) Out-Patient Physical Therapy Visit Information Visit Information Visit Type Treatment Note Visit Note 03/14 Visit Start Time 09:45 Visit Stop Time 10:30 Total Visit Minutes 45 Visit Number 21 Number of YIELD ENGINEER Visits 0 Evaluation Information Evaluation Date 05/01/19 PT-OP-B Current Condition Start: 05/01/19 15:22 Freq: Status: Active Protocol: Document 05/01/19 12:00 DCW (Rec: 05/01/19 17:53 DCW [id number]) Current Condition History of Current Condition Onset Date Three months Current Complaints Bilateral shoulder pain, immobility History of Current Condition Pt is a 74 year old male presenting with a three month history of left shoulder pain. Pt reports that he was reaching back to y to put a backpack on, and suddenly got a tremendous pain in his left shoulder. Pt has since been experiencing increased pain with any backward reaching, like trying to put on a jacket or reaching back for a seat belt. Pt also notes pain lifting more than 25 lbs , or lifting his arm overhead. Pt additionally has noticed that a few weeks ago, his right shoulder has now been bothering him with lifting or overhead motion as well, although this does not appear to be associated with any one event. Pt reports he had Dr. Ugarte check his shoulder, and was told that it won't get better without PT, so here I am. Pt has been seen in this facility multiple times, most recently for pre- and post-op therapy for a TKA. Treatment Goals Patient/Caregiver Goals Improve strength and function of his shoulders so he can return to his workshop with no limitations. PT-OP-C Subjective Start: 05/01/19 15:22 Freq: Status: Active Protocol: Document 08/23/19 09:45 DCW (Rec: 08/23/19 10:29 DCW [id number]) OP-PT Subjective Patient Comments Patient Comments My shoulder is a lot better than it was, but it is not where I want it to be yet. PT-OP-E Functional Tests Start: 05/01/19 15:22 Freq: Status: Active Protocol: Document 06/29/19 09:45 DCW (Rec: 06/29/19 10:11 DCW [id number]) Functional Tests Apley's Scratch Test Action 1- Left Lateral opposite shoulder Action 1- Right Posterior opposite shoulder Action 2- Left C3 Action 2- Right T2 Action 3- Left L2 Action 3- Right T10 PT-OP-F Manual Assessment Start: 05/01/19 15:22 Freq: Status: Active Protocol: Document 06/29/19 09:45 DCW (Rec: 06/29/19 10:11 DCW [id number]) Manual Assessments Soft Tissue Assessment Soft Tissue Mobility Assessment Moderate tone - left subscap. bilateral Upper Trap, tenderness to palpation 2/4: Pain with wincing PT-OP-J Posture/Palpation/Skin Start: 05/01/19 15:22 Freq: Status: Active Protocol: Document 06/29/19 09:45 DCW (Rec: 06/29/19 10:11 DCW [id number]) Posture Evaluation Position Standing Head/C-Spine Posture Forward Head Scapula Posture (L) Protracted,(R) Protracted Comments Posture Comments Measurement from spine to medial boarder of scapula at level of scapular spine: L = 8 cm, R = 8 cm Measurement from spine to inferior angle of scapula: L = 12 cm, R= 13 cm PT-OP-K Range of Motion Start: 05/01/19 15:22 Freq: Status: Active Protocol: Document 06/29/19 09:45 DCW (Rec: 06/29/19 10:11 DCW [id number]) Shoulder Goniometric Range of Motion Shoulder Right Active Shoulder ROM WFL No Testing Position Sitting Flexion 132 Abduction 135 External Rotation at 0 degrees Abduction 64 Internal Rotation Behind Back (text) T10 Left Active Shoulder ROM WFL No Testing Position Sitting Flexion 112 Abduction 103 External Rotation at 0 degrees Abduction 62 Internal Rotation Behind Back (text) L2 PT-OP-L Special Tests Start: 05/01/19 15:22 Freq: Status: Active Protocol: Document 06/29/19 09:45 DCW (Rec: 06/29/19 10:11 DCW [id number]) Special Tests Shoulder Special Tests Painful Arc Test Results L Positive Passive ER Rotator Cuff Test Results L Positive Lift-Off Rotator Cuff Test Results Negative Adame Irving Impingement Test Results L Positive Empty Can Test Results Negative Drop Arm Rotator Cuff Test Results Negative Belly Press Test Results Negative PT-OP-M Strength Start: 05/01/19 15:22 Freq: Status: Active Protocol: Document 06/29/19 09:45 DCW (Rec: 06/29/19 10:11 DCW [id number]) Shoulder Strength Shoulder Manual Muscle Testing Right Flexion 3- Fair- Abduction (C5) 4- Good- External Rotation 4 Good Left Flexion 3- Fair- Abduction (C5) 3- Fair- External Rotation 4 Good PT-OP-Q Treatments Start: 05/01/19 15:22 Freq: Status: Active Protocol: Document 08/23/19 09:45 DCW (Rec: 08/23/19 10:29 DCW [id number]) Cardio Equipment Upper Body Ergometer (UBE) Duration (Minutes) 6 RPM 60 Seat Position 15 Height 4.5 Gym Equipment Cable Column (Body Solid) Lat Pull Down Resistance 50# Therapeutic Exercises Supine Exercises Horizontal Adduction Supine Exercise Name Horizontal Adduction Side bilateral Resistance 4# Reps/Minutes x20 Supine Punch Supine Exercise Name Serratus punch Side bilateral Resistance 4# Reps/Minutes x20 Sitting Exercises PROM Sitting Exercise Name Shoulder Flexion/Abduction Side bilateral Equipment Used Pulleys Standing Exercises Body Blade Standing Exercise Name Flexion, Abduction Equipment Used Black blade Shoulder Press Standing Exercise Name Shoulder Press Side bilateral Resistance 4# Flexion Standing Exercise Name Shoulder Flexion Side bilateral Resistance 4# Abduction Standing Exercise Name Shoulder Abduction Side bilateral Resistance 4# IR Stretch Standing Exercise Name Shoulder IR Side left Equipment Used Pulleys Manual Therapy Treatment Soft Tissue Mobilization Subscap Body Location L Subscap Mobilization Type Strumming,Sustained Pressure, Trigger Point Release Joint Mobilizations 1 Joint L GH Direction Inferior Grade III Body Position Supine PT-OP-T Assessment and Plan Start: 05/01/19 15:22 Freq: Status: Active Protocol: Document 08/23/19 09:45 DCW (Rec: 08/23/19 10:29 DCW [id number]) Physical Therapy Assessment Impairments Impairments Activity Tolerance,Functional Mobility,Pain,Posture,ROM,Soft Tissue Mobility,Strength Goals Five Impairment Pt presents with increased forward shoulder posture Lead Recoverer Goal (LTG) Measurement from spine to medial boarder of scapula to at most 8 cm bilaterally LTG Duration Met Four Impairment Pt displays limited shoulder ROM bilaterally Lead Recoverer Goal (LTG) Right active flexion and abduction to 140? Left active flexion and abduction to 110? LTG Duration 08/30/19 - Improving Three Impairment Pt unable to tolerate working in his workshop due to pain Short Term Goal (STG) Pt to demonstrate overhead positioning of his bilateral arms with no increased pain STG Duration 07/30/19 - Improving Alf Goal (LTG) Pt to lift >45# without an increase in symptoms in his shoulders LTG Duration 08/30/19 Two Impairment Pt has difficulty dressing himself secondary to shoulder pain Lead Recoverer Goal (LTG) Pt to don/doff jacket without an increase in shoulder pain bilaterally LTG Duration 08/30/19 - Improving One Impairment Pt does not have appropriate home exercise program Short Term Goal (STG) Pt to be independent and compliant with an appropriate HEP STG Duration Met Assessment Summary Assessment General improvement with STM, pt having less tenderness to palpation, improved scapular movement. Reassessment next visit. Physical Therapy Plan Frequency and Duration Frequency of Treatment 2x/Week Duration of Treatment Two months Plan of Care Start Date 06/29/19 Plan of Care End Date 08/30/19 Therapeutic Interventions Therapeutic Interventions Home Exercise Program,Joint Mobilizations,Manual Therapy, Neuromuscular Re-education, Patient/Caregiver Education, Self-Care/Home Management,Soft Tissue Mobilization, Therapeutic Activities, Therapeutic Exercises Modalities Cold Pack/Ice Massage,Electric Stimulation,Hot Packs Next Visit Focus/Plan Next Note Type Progress Note Next Visit Plan Shoulder ROM, posture training , strengthening
--- NOTE | 2019-08-25 10:04 | PT.OTN ---
Current Diagnoses Other specific arthropathies, not elsewhere classified, left shoulder (08/25/19) Pain in right shoulder (08/25/19) Pain in left shoulder (08/25/19) Stiffness of right shoulder, not elsewhere classified (08/25/19) Stiffness of left shoulder, not elsewhere classified (08/25/19) Impingement syndrome of right shoulder (08/25/19) Impingement syndrome of left shoulder (08/25/19) Abnormal posture (08/25/19) Strain of muscle(s) and tendon(s) of the rotator cuff of left shoulder, subsequent encounter (08/25/19) Physical Therapy Treatment Note PT-OP-A Visit Information Start: 05/01/19 15:22 Freq: Status: Active Protocol: Document 08/25/19 09:00 DCW (Rec: 08/25/19 10:04 DCW [id number]) Out-Patient Physical Therapy Visit Information Visit Information Visit Type Progress Note Visit Note 03/14 Visit Start Time 09:00 Visit Stop Time 09:45 Total Visit Minutes 45 Visit Number 22 Number of ACCOUNT SUPERVISOR Visits 0 Evaluation Information Evaluation Date 05/01/19 PT-OP-B Current Condition Start: 05/01/19 15:22 Freq: Status: Active Protocol: Document 05/01/19 12:00 DCW (Rec: 05/01/19 17:53 DCW [id number]) Current Condition History of Current Condition Onset Date Three months Current Complaints Bilateral shoulder pain, immobility History of Current Condition Pt is a 74 year old male presenting with a three month history of left shoulder pain. Pt reports that he was reaching back to y to put a backpack on, and suddenly got a tremendous pain in his left shoulder. Pt has since been experiencing increased pain with any backward reaching, like trying to put on a jacket or reaching back for a seat belt. Pt also notes pain lifting more than 25 lbs , or lifting his arm overhead. Pt additionally has noticed that a few weeks ago, his right shoulder has now been bothering him with lifting or overhead motion as well, although this does not appear to be associated with any one event. Pt reports he had Dr. Ugarte check his shoulder, and was told that it won't get better without PT, so here I am. Pt has been seen in this facility multiple times, most recently for pre- and post-op therapy for a TKA. Treatment Goals Patient/Caregiver Goals Improve strength and function of his shoulders so he can return to his workshop with no limitations. PT-OP-C Subjective Start: 05/01/19 15:22 Freq: Status: Active Protocol: Document 08/25/19 09:00 DCW (Rec: 08/25/19 10:04 DCW [id number]) OP-PT Subjective Patient Comments Patient Comments Pt reports he is doing well overall today. PT-OP-E Functional Tests Start: 05/01/19 15:22 Freq: Status: Active Protocol: Document 08/25/19 09:00 DCW (Rec: 08/25/19 09:21 DCW [id number]) Functional Tests Apley's Scratch Test Action 1- Left Lateral opposite shoulder Action 1- Right Posterior opposite shoulder Action 2- Left C6 Action 2- Right T2 Action 3- Left T10 Action 3- Right T10 PT-OP-F Manual Assessment Start: 05/01/19 15:22 Freq: Status: Active Protocol: Document 08/25/19 09:00 DCW (Rec: 08/25/19 09:21 DCW [id number]) Manual Assessments Soft Tissue Assessment Soft Tissue Mobility Assessment Mild-Moderate tone - left subscap. bilateral Upper Trap, tenderness to palpation 2/4: Pain with wincing PT-OP-J Posture/Palpation/Skin Start: 05/01/19 15:22 Freq: Status: Active Protocol: Document 08/25/19 09:00 DCW (Rec: 08/25/19 09:21 DCW [id number]) Posture Evaluation Position Standing Head/C-Spine Posture Forward Head Scapula Posture (L) Protracted,(R) Protracted Comments Posture Comments Measurement from spine to medial boarder of scapula at level of scapular spine: L = 8 cm, R = 8 cm Measurement from spine to inferior angle of scapula: L = 12 cm, R= 13 cm PT-OP-K Range of Motion Start: 05/01/19 15:22 Freq: Status: Active Protocol: Document 08/25/19 09:00 DCW (Rec: 08/25/19 09:21 DCW [id number]) Shoulder Goniometric Range of Motion Shoulder Right Active Shoulder ROM WFL No Testing Position Sitting Flexion 153 Abduction 139 External Rotation at 0 degrees Abduction 66 Internal Rotation Behind Back (text) T10 Left Active Shoulder ROM WFL No Testing Position Sitting Flexion 124 Abduction 126 External Rotation at 0 degrees Abduction 62 Internal Rotation Behind Back (text) T10 PT-OP-L Special Tests Start: 05/01/19 15:22 Freq: Status: Active Protocol: Document 08/25/19 09:00 DCW (Rec: 08/25/19 09:21 DCW [id number]) Special Tests Shoulder Special Tests Painful Arc Test Results L Positive Passive ER Rotator Cuff Test Results Negative Lift-Off Rotator Cuff Test Results Negative Adame Irving Impingement Test Results Negative Empty Can Test Results Negative Drop Arm Rotator Cuff Test Results Negative Belly Press Test Results Negative PT-OP-M Strength Start: 05/01/19 15:22 Freq: Status: Active Protocol: Document 08/25/19 09:00 DCW (Rec: 08/25/19 09:21 DCW [id number]) Shoulder Strength Shoulder Manual Muscle Testing Right Flexion 3- Fair- Abduction (C5) 4 Good External Rotation 4+ Good+ Internal Rotation 4+ Good+ Left Flexion 3- Fair- Abduction (C5) 3- Fair- External Rotation 4+ Good+ Internal Rotation 4+ Good+ PT-OP-Q Treatments Start: 05/01/19 15:22 Freq: Status: Active Protocol: Document 08/25/19 09:00 DCW (Rec: 08/25/19 10:04 DCW [id number]) Gym Equipment Cable Column (Body Solid) Lat Pull Down Resistance 50# Therapeutic Ball Isometric hold Exercise Details Isometric hold vs perturbations Ball Size/Color Blue - 45 cm Body Position Supine Comments 90 degree shoulder flexion Therapeutic Exercises Standing Exercises Shoulder Press Standing Exercise Name Shoulder Press Side bilateral Resistance 4# Flexion Standing Exercise Name Shoulder Flexion Side bilateral Resistance 4# Abduction Standing Exercise Name Shoulder Abduction Side bilateral Resistance 4# Manual Therapy Treatment Soft Tissue Mobilization Subscap Body Location L Subscap Mobilization Type Strumming,Sustained Pressure, Trigger Point Release Joint Mobilizations 1 Joint L GH Direction Inferior Grade III Body Position Supine Other Other Manual Treatments ROM, MMT, Shoulder testing PT-OP-T Assessment and Plan Start: 05/01/19 15:22 Freq: Status: Active Protocol: Document 08/25/19 09:00 DCW (Rec: 08/25/19 10:04 DCW [id number]) Physical Therapy Assessment Impairments Impairments Activity Tolerance,Functional Mobility,Pain,Posture,ROM,Soft Tissue Mobility,Strength Goals Five Impairment Pt presents with increased forward shoulder posture Industrial Arts Teacher Goal (LTG) Measurement from spine to medial boarder of scapula to at most 8 cm bilaterally LTG Duration Met Four Impairment Pt displays limited shoulder ROM bilaterally Short Term Goal (STG) Right active flexion and abduction to 140? Left active flexion and abduction to 110? STG Duration Met Industrial Arts Teacher Goal (LTG) Flexion and abduction to 150? bilaterally LTG Duration 08/30/19 - Improving Three Impairment Pt unable to tolerate working in his workshop due to pain Short Term Goal (STG) Pt to demonstrate overhead positioning of his bilateral arms with no increased pain STG Duration 09/23/19 - Improving Industrial Arts Teacher Goal (LTG) Pt to lift >45# without an increase in symptoms in his shoulders LTG Duration 10/24/19 Two Impairment Pt has difficulty dressing himself secondary to shoulder pain Skilled Nursing Goal (LTG) Pt to don/doff jacket without an increase in shoulder pain bilaterally LTG Duration Met One Impairment Pt does not have appropriate home exercise program Short Term Goal (STG) Pt to be independent and compliant with an appropriate HEP STG Duration Met Assessment Summary Assessment Pt continues to show improvement in shoulder ROM and strength bilaterally, fewer positive special tests. Pt able to reach up his back in Apley Scratch Test L=R, although L still causes increased shoulder pain. Posture still improved from initial evaluation, however pt does still require verbal reminders for keeping his shoulders back. Pt should benefit from skilled therapy focusing on shoulder strengthening, improving ROM, increasing independence for pt to work out in his workshop without pain. Physical Therapy Plan Frequency and Duration Frequency of Treatment 2x/Week Duration of Treatment Two months Plan of Care Start Date 06/29/19 Plan of Care End Date 08/30/19 Therapeutic Interventions Therapeutic Interventions Home Exercise Program,Joint Mobilizations,Manual Therapy, Neuromuscular Re-education, Patient/Caregiver Education, Self-Care/Home Management,Soft Tissue Mobilization, Therapeutic Activities, Therapeutic Exercises Modalities Cold Pack/Ice Massage,Electric Stimulation,Hot Packs Next Visit Focus/Plan Next Note Type Progress Note Next Visit Plan Shoulder ROM, posture training , strengthening
--- NOTE | 2019-08-25 10:06 | PT.OTN ---
Current Diagnoses Other specific arthropathies, not elsewhere classified, left shoulder (08/25/19) Pain in right shoulder (08/25/19) Pain in left shoulder (08/25/19) Stiffness of right shoulder, not elsewhere classified (08/25/19) Stiffness of left shoulder, not elsewhere classified (08/25/19) Impingement syndrome of right shoulder (08/25/19) Impingement syndrome of left shoulder (08/25/19) Abnormal posture (08/25/19) Strain of muscle(s) and tendon(s) of the rotator cuff of left shoulder, subsequent encounter (08/25/19) Physical Therapy Treatment Note PT-OP-A Visit Information Start: 05/01/19 15:22 Freq: Status: Active Protocol: Document 08/25/19 09:00 DCW (Rec: 08/25/19 10:04 DCW [id number]) Out-Patient Physical Therapy Visit Information Visit Information Visit Type Progress Note Visit Note 03/14 Visit Start Time 09:00 Visit Stop Time 09:45 Total Visit Minutes 45 Visit Number 22 Number of OR DIRECTOR Visits 0 Evaluation Information Evaluation Date 05/01/19 PT-OP-B Current Condition Start: 05/01/19 15:22 Freq: Status: Active Protocol: Document 05/01/19 12:00 DCW (Rec: 05/01/19 17:53 DCW [id number]) Current Condition History of Current Condition Onset Date Three months Current Complaints Bilateral shoulder pain, immobility History of Current Condition Pt is a 74 year old male presenting with a three month history of left shoulder pain. Pt reports that he was reaching back to y to put a backpack on, and suddenly got a tremendous pain in his left shoulder. Pt has since been experiencing increased pain with any backward reaching, like trying to put on a jacket or reaching back for a seat belt. Pt also notes pain lifting more than 25 lbs , or lifting his arm overhead. Pt additionally has noticed that a few weeks ago, his right shoulder has now been bothering him with lifting or overhead motion as well, although this does not appear to be associated with any one event. Pt reports he had Dr. Ugarte check his shoulder, and was told that it won't get better without PT, so here I am. Pt has been seen in this facility multiple times, most recently for pre- and post-op therapy for a TKA. Treatment Goals Patient/Caregiver Goals Improve strength and function of his shoulders so he can return to his workshop with no limitations. PT-OP-C Subjective Start: 05/01/19 15:22 Freq: Status: Active Protocol: Document 08/25/19 09:00 DCW (Rec: 08/25/19 10:04 DCW [id number]) OP-PT Subjective Patient Comments Patient Comments Pt reports he is doing well overall today. PT-OP-E Functional Tests Start: 05/01/19 15:22 Freq: Status: Active Protocol: Document 08/25/19 09:00 DCW (Rec: 08/25/19 09:21 DCW [id number]) Functional Tests Apley's Scratch Test Action 1- Left Lateral opposite shoulder Action 1- Right Posterior opposite shoulder Action 2- Left C6 Action 2- Right T2 Action 3- Left T10 Action 3- Right T10 PT-OP-F Manual Assessment Start: 05/01/19 15:22 Freq: Status: Active Protocol: Document 08/25/19 09:00 DCW (Rec: 08/25/19 09:21 DCW [id number]) Manual Assessments Soft Tissue Assessment Soft Tissue Mobility Assessment Mild-Moderate tone - left subscap. bilateral Upper Trap, tenderness to palpation 2/4: Pain with wincing PT-OP-J Posture/Palpation/Skin Start: 05/01/19 15:22 Freq: Status: Active Protocol: Document 08/25/19 09:00 DCW (Rec: 08/25/19 09:21 DCW [id number]) Posture Evaluation Position Standing Head/C-Spine Posture Forward Head Scapula Posture (L) Protracted,(R) Protracted Comments Posture Comments Measurement from spine to medial boarder of scapula at level of scapular spine: L = 8 cm, R = 8 cm Measurement from spine to inferior angle of scapula: L = 12 cm, R= 13 cm PT-OP-K Range of Motion Start: 05/01/19 15:22 Freq: Status: Active Protocol: Document 08/25/19 09:00 DCW (Rec: 08/25/19 09:21 DCW [id number]) Shoulder Goniometric Range of Motion Shoulder Right Active Shoulder ROM WFL No Testing Position Sitting Flexion 153 Abduction 139 External Rotation at 0 degrees Abduction 66 Internal Rotation Behind Back (text) T10 Left Active Shoulder ROM WFL No Testing Position Sitting Flexion 124 Abduction 126 External Rotation at 0 degrees Abduction 62 Internal Rotation Behind Back (text) T10 PT-OP-L Special Tests Start: 05/01/19 15:22 Freq: Status: Active Protocol: Document 08/25/19 09:00 DCW (Rec: 08/25/19 09:21 DCW [id number]) Special Tests Shoulder Special Tests Painful Arc Test Results L Positive Passive ER Rotator Cuff Test Results Negative Lift-Off Rotator Cuff Test Results Negative Adame Irving Impingement Test Results Negative Empty Can Test Results Negative Drop Arm Rotator Cuff Test Results Negative Belly Press Test Results Negative PT-OP-M Strength Start: 05/01/19 15:22 Freq: Status: Active Protocol: Document 08/25/19 09:00 DCW (Rec: 08/25/19 09:21 DCW [id number]) Shoulder Strength Shoulder Manual Muscle Testing Right Flexion 3- Fair- Abduction (C5) 4 Good External Rotation 4+ Good+ Internal Rotation 4+ Good+ Left Flexion 3- Fair- Abduction (C5) 3- Fair- External Rotation 4+ Good+ Internal Rotation 4+ Good+ PT-OP-Q Treatments Start: 05/01/19 15:22 Freq: Status: Active Protocol: Document 08/25/19 09:00 DCW (Rec: 08/25/19 10:04 DCW [id number]) Gym Equipment Cable Column (Body Solid) Lat Pull Down Resistance 50# Therapeutic Ball Isometric hold Exercise Details Isometric hold vs perturbations Ball Size/Color Blue - 45 cm Body Position Supine Comments 90 degree shoulder flexion Therapeutic Exercises Standing Exercises Shoulder Press Standing Exercise Name Shoulder Press Side bilateral Resistance 4# Flexion Standing Exercise Name Shoulder Flexion Side bilateral Resistance 4# Abduction Standing Exercise Name Shoulder Abduction Side bilateral Resistance 4# Manual Therapy Treatment Soft Tissue Mobilization Subscap Body Location L Subscap Mobilization Type Strumming,Sustained Pressure, Trigger Point Release Joint Mobilizations 1 Joint L GH Direction Inferior Grade III Body Position Supine Other Other Manual Treatments ROM, MMT, Shoulder testing PT-OP-T Assessment and Plan Start: 05/01/19 15:22 Freq: Status: Active Protocol: Document 08/25/19 09:00 DCW (Rec: 08/25/19 10:04 DCW [id number]) Physical Therapy Assessment Impairments Impairments Activity Tolerance,Functional Mobility,Pain,Posture,ROM,Soft Tissue Mobility,Strength Goals Five Impairment Pt presents with increased forward shoulder posture Clinical Research Management Associate Goal (LTG) Measurement from spine to medial boarder of scapula to at most 8 cm bilaterally LTG Duration Met Four Impairment Pt displays limited shoulder ROM bilaterally Short Term Goal (STG) Right active flexion and abduction to 140? Left active flexion and abduction to 110? STG Duration Met Clinical Research Management Associate Goal (LTG) Flexion and abduction to 150? bilaterally LTG Duration 08/30/19 - Improving Three Impairment Pt unable to tolerate working in his workshop due to pain Short Term Goal (STG) Pt to demonstrate overhead positioning of his bilateral arms with no increased pain STG Duration 09/23/19 - Improving Clinical Research Management Associate Goal (LTG) Pt to lift >45# without an increase in symptoms in his shoulders LTG Duration 10/24/19 Two Impairment Pt has difficulty dressing himself secondary to shoulder pain Fdc Goal (LTG) Pt to don/doff jacket without an increase in shoulder pain bilaterally LTG Duration Met One Impairment Pt does not have appropriate home exercise program Short Term Goal (STG) Pt to be independent and compliant with an appropriate HEP STG Duration Met Assessment Summary Assessment Pt continues to show improvement in shoulder ROM and strength bilaterally, fewer positive special tests. Pt able to reach up his back in Apley Scratch Test L=R, although L still causes increased shoulder pain. Posture still improved from initial evaluation, however pt does still require verbal reminders for keeping his shoulders back. Pt should benefit from skilled therapy focusing on shoulder strengthening, improving ROM, increasing independence for pt to work out in his workshop without pain. Physical Therapy Plan Frequency and Duration Frequency of Treatment 2x/Week Duration of Treatment Two months Plan of Care Start Date 08/25/19 Plan of Care End Date 10/24/19 Therapeutic Interventions Therapeutic Interventions Home Exercise Program,Joint Mobilizations,Manual Therapy, Neuromuscular Re-education, Patient/Caregiver Education, Self-Care/Home Management,Soft Tissue Mobilization, Therapeutic Activities, Therapeutic Exercises Modalities Cold Pack/Ice Massage,Electric Stimulation,Hot Packs Next Visit Focus/Plan Next Note Type Progress Note Next Visit Plan Shoulder ROM, posture training , strengthening
--- NOTE | 2019-08-25 10:06 | PT.OPPOC ---
Physical, Occupational & Speech Therapy At [facility] Current Diagnoses Other specific arthropathies, not elsewhere classified, left shoulder (08/25/19) Pain in right shoulder (08/25/19) Pain in left shoulder (08/25/19) Stiffness of right shoulder, not elsewhere classified (08/25/19) Stiffness of left shoulder, not elsewhere classified (08/25/19) Impingement syndrome of right shoulder (08/25/19) Impingement syndrome of left shoulder (08/25/19) Abnormal posture (08/25/19) Strain of muscle(s) and tendon(s) of the rotator cuff of left shoulder, subsequent encounter (08/25/19) Visit Care Team Role Provider Type Kavita Aranda MD Primary Care Provider Non-Staff Specialty: Internal Medicine Address: [address] [place] [address], [address], [place], [address] Email: Franck Ugarte MD Attending Provider Non-Staff Specialty: Internal Medicine Address: [address] [place] [address], [address], [place], [address] Email: Plan Of Care PT-OP-T Assessment and Plan Start: 05/01/19 15:22 Freq: Status: Active Protocol: Document 08/25/19 09:00 DCW (Rec: 08/25/19 10:04 DCW [id number]) Physical Therapy Assessment Impairments Impairments Activity Tolerance,Functional Mobility,Pain,Posture,ROM,Soft Tissue Mobility,Strength Goals Five Impairment Pt presents with increased forward shoulder posture Alf Goal (LTG) Measurement from spine to medial boarder of scapula to at most 8 cm bilaterally LTG Duration Met Four Impairment Pt displays limited shoulder ROM bilaterally Short Term Goal (STG) Right active flexion and abduction to 140? Left active flexion and abduction to 110? STG Duration Met Hotel Houseman Goal (LTG) Flexion and abduction to 150? bilaterally LTG Duration 08/30/19 - Improving Three Impairment Pt unable to tolerate working in his workshop due to pain Short Term Goal (STG) Pt to demonstrate overhead positioning of his bilateral arms with no increased pain STG Duration 09/23/19 - Improving Alf Goal (LTG) Pt to lift >45# without an increase in symptoms in his shoulders LTG Duration 10/24/19 Two Impairment Pt has difficulty dressing himself secondary to shoulder pain Hotel Houseman Goal (LTG) Pt to don/doff jacket without an increase in shoulder pain bilaterally LTG Duration Met One Impairment Pt does not have appropriate home exercise program Short Term Goal (STG) Pt to be independent and compliant with an appropriate HEP STG Duration Met Assessment Summary Assessment Pt continues to show improvement in shoulder ROM and strength bilaterally, fewer positive special tests. Pt able to reach up his back in Apley Scratch Test L=R, although L still causes increased shoulder pain. Posture still improved from initial evaluation, however pt does still require verbal reminders for keeping his shoulders back. Pt should benefit from skilled therapy focusing on shoulder strengthening, improving ROM, increasing independence for pt to work out in his workshop without pain. Physical Therapy Plan Frequency and Duration Frequency of Treatment 2x/Week Duration of Treatment Two months Plan of Care Start Date 08/25/19 Plan of Care End Date 10/24/19 Therapeutic Interventions Therapeutic Interventions Home Exercise Program,Joint Mobilizations,Manual Therapy, Neuromuscular Re-education, Patient/Caregiver Education, Self-Care/Home Management,Soft Tissue Mobilization, Therapeutic Activities, Therapeutic Exercises Modalities Cold Pack/Ice Massage,Electric Stimulation,Hot Packs Next Visit Focus/Plan Next Note Type Progress Note Next Visit Plan Shoulder ROM, posture training , strengthening Plan of Care Dates Plan of Care Start Date 08/25/19 Plan of Care End Date 10/24/19 Electronically Signed by: Evaristo Carvalho, PT 08/25/19 1006 Please Sign and Return: I have reviewed this Plan of Care and certify that the skilled therapy services above are required to meet the patient?s needs. Physician Signature Date Printed Name and Credentials Clinical Instructor Signature Printed Name and Credentials
--- NOTE | 2019-09-01 09:44 | PT.OTN ---
Current Diagnoses Other specific arthropathies, not elsewhere classified, left shoulder (09/01/19) Pain in right shoulder (09/01/19) Pain in left shoulder (09/01/19) Stiffness of right shoulder, not elsewhere classified (09/01/19) Stiffness of left shoulder, not elsewhere classified (09/01/19) Impingement syndrome of right shoulder (09/01/19) Impingement syndrome of left shoulder (09/01/19) Abnormal posture (09/01/19) Strain of muscle(s) and tendon(s) of the rotator cuff of left shoulder, subsequent encounter (09/01/19) Physical Therapy Treatment Note PT-OP-A Visit Information Start: 05/01/19 15:22 Freq: Status: Active Protocol: Document 09/01/19 09:00 DCW (Rec: 09/01/19 09:44 DCW [id number]) Out-Patient Physical Therapy Visit Information Visit Information Visit Type Treatment Note Visit Note 07/14 Visit Start Time 09:00 Visit Stop Time 09:45 Total Visit Minutes 45 Visit Number 23 Number of DISTRICT SERVICE MANAGER Visits 0 Evaluation Information Evaluation Date 05/01/19 PT-OP-B Current Condition Start: 05/01/19 15:22 Freq: Status: Active Protocol: Document 05/01/19 12:00 DCW (Rec: 05/01/19 17:53 DCW [id number]) Current Condition History of Current Condition Onset Date Three months Current Complaints Bilateral shoulder pain, immobility History of Current Condition Pt is a 74 year old male presenting with a three month history of left shoulder pain. Pt reports that he was reaching back to y to put a backpack on, and suddenly got a tremendous pain in his left shoulder. Pt has since been experiencing increased pain with any backward reaching, like trying to put on a jacket or reaching back for a seat belt. Pt also notes pain lifting more than 25 lbs , or lifting his arm overhead. Pt additionally has noticed that a few weeks ago, his right shoulder has now been bothering him with lifting or overhead motion as well, although this does not appear to be associated with any one event. Pt reports he had Dr. Ugarte check his shoulder, and was told that it won't get better without PT, so here I am. Pt has been seen in this facility multiple times, most recently for pre- and post-op therapy for a TKA. Treatment Goals Patient/Caregiver Goals Improve strength and function of his shoulders so he can return to his workshop with no limitations. PT-OP-C Subjective Start: 05/01/19 15:22 Freq: Status: Active Protocol: Document 09/01/19 09:00 DCW (Rec: 09/01/19 09:44 DCW [id number]) OP-PT Subjective Patient Comments Patient Comments Pt had a long week with [employer] meetings in [place], but admits that he is feeling pretty good. PT-OP-E Functional Tests Start: 05/01/19 15:22 Freq: Status: Active Protocol: Document 08/25/19 09:00 DCW (Rec: 08/25/19 09:21 DCW [id number]) Functional Tests Apley's Scratch Test Action 1- Left Lateral opposite shoulder Action 1- Right Posterior opposite shoulder Action 2- Left C6 Action 2- Right T2 Action 3- Left T10 Action 3- Right T10 PT-OP-F Manual Assessment Start: 05/01/19 15:22 Freq: Status: Active Protocol: Document 08/25/19 09:00 DCW (Rec: 08/25/19 09:21 DCW [id number]) Manual Assessments Soft Tissue Assessment Soft Tissue Mobility Assessment Mild-Moderate tone - left subscap. bilateral Upper Trap, tenderness to palpation 2/4: Pain with wincing PT-OP-J Posture/Palpation/Skin Start: 05/01/19 15:22 Freq: Status: Active Protocol: Document 08/25/19 09:00 DCW (Rec: 08/25/19 09:21 DCW [id number]) Posture Evaluation Position Standing Head/C-Spine Posture Forward Head Scapula Posture (L) Protracted,(R) Protracted Comments Posture Comments Measurement from spine to medial boarder of scapula at level of scapular spine: L = 8 cm, R = 8 cm Measurement from spine to inferior angle of scapula: L = 12 cm, R= 13 cm PT-OP-K Range of Motion Start: 05/01/19 15:22 Freq: Status: Active Protocol: Document 08/25/19 09:00 DCW (Rec: 08/25/19 09:21 DCW [id number]) Shoulder Goniometric Range of Motion Shoulder Right Active Shoulder ROM WFL No Testing Position Sitting Flexion 153 Abduction 139 External Rotation at 0 degrees Abduction 66 Internal Rotation Behind Back (text) T10 Left Active Shoulder ROM WFL No Testing Position Sitting Flexion 124 Abduction 126 External Rotation at 0 degrees Abduction 62 Internal Rotation Behind Back (text) T10 PT-OP-L Special Tests Start: 05/01/19 15:22 Freq: Status: Active Protocol: Document 08/25/19 09:00 DCW (Rec: 08/25/19 09:21 DCW [id number]) Special Tests Shoulder Special Tests Painful Arc Test Results L Positive Passive ER Rotator Cuff Test Results Negative Lift-Off Rotator Cuff Test Results Negative Adame Irving Impingement Test Results Negative Empty Can Test Results Negative Drop Arm Rotator Cuff Test Results Negative Belly Press Test Results Negative PT-OP-M Strength Start: 05/01/19 15:22 Freq: Status: Active Protocol: Document 08/25/19 09:00 DCW (Rec: 08/25/19 09:21 DCW [id number]) Shoulder Strength Shoulder Manual Muscle Testing Right Flexion 3- Fair- Abduction (C5) 4 Good External Rotation 4+ Good+ Internal Rotation 4+ Good+ Left Flexion 3- Fair- Abduction (C5) 3- Fair- External Rotation 4+ Good+ Internal Rotation 4+ Good+ PT-OP-Q Treatments Start: 05/01/19 15:22 Freq: Status: Active Protocol: Document 09/01/19 09:00 DCW (Rec: 09/01/19 09:44 DCW [id number]) Cardio Equipment Upper Body Ergometer (UBE) Duration (Minutes) 6 RPM 60 Seat Position 15 Height 4.5 Gym Equipment Cable Column (Body Solid) Lat Pull Down Resistance 50# Therapeutic Ball Isometric hold Exercise Details Isometric hold vs perturbations Ball Size/Color Blue - 45 cm Body Position Supine Comments 90 degree shoulder flexion Therapeutic Exercises Supine Exercises Supine Punch Supine Exercise Name Serratus punch Side bilateral Resistance 4# Reps/Minutes x20 Sitting Exercises PROM Sitting Exercise Name Shoulder Flexion/Abduction Side bilateral Equipment Used Pulleys Standing Exercises Body Blade Standing Exercise Name Flexion, Abduction Equipment Used Black blade External Rotation Standing Exercise Name Shoulder ER/IR Side left Resistance Lv 3 Equipment Used T-band Adduction Standing Exercise Name Shoulder Adduction Side bilateral Resistance Lv 3 Equipment Used T-band Manual Therapy Treatment Soft Tissue Mobilization Subscap Body Location L Subscap Mobilization Type Strumming,Sustained Pressure, Trigger Point Release Joint Mobilizations 1 Joint L GH Direction Inferior Grade III Body Position Supine PT-OP-T Assessment and Plan Start: 05/01/19 15:22 Freq: Status: Active Protocol: Document 09/01/19 09:00 DCW (Rec: 09/01/19 09:44 DCW [id number]) Physical Therapy Assessment Impairments Impairments Activity Tolerance,Functional Mobility,Pain,Posture,ROM,Soft Tissue Mobility,Strength Goals Five Impairment Pt presents with increased forward shoulder posture Hacksaw Inspector Goal (LTG) Measurement from spine to medial boarder of scapula to at most 8 cm bilaterally LTG Duration Met Four Impairment Pt displays limited shoulder ROM bilaterally Short Term Goal (STG) Right active flexion and abduction to 140? Left active flexion and abduction to 110? STG Duration Met Skilled Nursing Goal (LTG) Flexion and abduction to 150? bilaterally LTG Duration 08/30/19 - Improving Three Impairment Pt unable to tolerate working in his workshop due to pain Short Term Goal (STG) Pt to demonstrate overhead positioning of his bilateral arms with no increased pain STG Duration 09/23/19 - Improving Skilled Nursing Goal (LTG) Pt to lift >45# without an increase in symptoms in his shoulders LTG Duration 10/24/19 Two Impairment Pt has difficulty dressing himself secondary to shoulder pain Skilled Nursing Goal (LTG) Pt to don/doff jacket without an increase in shoulder pain bilaterally LTG Duration Met One Impairment Pt does not have appropriate home exercise program Short Term Goal (STG) Pt to be independent and compliant with an appropriate HEP STG Duration Met Assessment Summary Assessment Pt doing very well today, feeling like his shoulders are moving better and he is experiencing less pain. Physical Therapy Plan Frequency and Duration Frequency of Treatment 2x/Week Duration of Treatment Two months Plan of Care Start Date 08/25/19 Plan of Care End Date 10/24/19 Therapeutic Interventions Therapeutic Interventions Home Exercise Program,Joint Mobilizations,Manual Therapy, Neuromuscular Re-education, Patient/Caregiver Education, Self-Care/Home Management,Soft Tissue Mobilization, Therapeutic Activities, Therapeutic Exercises Modalities Cold Pack/Ice Massage,Electric Stimulation,Hot Packs Next Visit Focus/Plan Next Note Type Treatment Note Next Visit Plan Shoulder ROM, posture training , strengthening
--- NOTE | 2019-09-12 12:01 | PT.OTN ---
Current Diagnoses Other specific arthropathies, not elsewhere classified, left shoulder (09/12/19) Pain in right shoulder (09/12/19) Pain in left shoulder (09/12/19) Stiffness of right shoulder, not elsewhere classified (09/12/19) Stiffness of left shoulder, not elsewhere classified (09/12/19) Impingement syndrome of right shoulder (09/12/19) Impingement syndrome of left shoulder (09/12/19) Abnormal posture (09/12/19) Strain of muscle(s) and tendon(s) of the rotator cuff of left shoulder, subsequent encounter (09/12/19) Physical Therapy Treatment Note PT-OP-A Visit Information Start: 05/01/19 15:22 Freq: Status: Active Protocol: Document 09/12/19 11:15 DCW (Rec: 09/12/19 12:01 DCW [id number]) Out-Patient Physical Therapy Visit Information Visit Information Visit Type Treatment Note Visit Note 08/14 Visit Start Time 11:15 Visit Stop Time 12:00 Total Visit Minutes 45 Visit Number 24 Number of BALE OPENER Visits 0 Evaluation Information Evaluation Date 05/01/19 PT-OP-B Current Condition Start: 05/01/19 15:22 Freq: Status: Active Protocol: Document 05/01/19 12:00 DCW (Rec: 05/01/19 17:53 DCW [id number]) Current Condition History of Current Condition Onset Date Three months Current Complaints Bilateral shoulder pain, immobility History of Current Condition Pt is a 74 year old male presenting with a three month history of left shoulder pain. Pt reports that he was reaching back to y to put a backpack on, and suddenly got a tremendous pain in his left shoulder. Pt has since been experiencing increased pain with any backward reaching, like trying to put on a jacket or reaching back for a seat belt. Pt also notes pain lifting more than 25 lbs , or lifting his arm overhead. Pt additionally has noticed that a few weeks ago, his right shoulder has now been bothering him with lifting or overhead motion as well, although this does not appear to be associated with any one event. Pt reports he had Dr. Ugarte check his shoulder, and was told that it won't get better without PT, so here I am. Pt has been seen in this facility multiple times, most recently for pre- and post-op therapy for a TKA. Treatment Goals Patient/Caregiver Goals Improve strength and function of his shoulders so he can return to his workshop with no limitations. PT-OP-C Subjective Start: 05/01/19 15:22 Freq: Status: Active Protocol: Document 09/12/19 11:15 DCW (Rec: 09/12/19 12:01 DCW [id number]) OP-PT Subjective Patient Comments Patient Comments Pt reports his shoulder is doing well today. PT-OP-E Functional Tests Start: 05/01/19 15:22 Freq: Status: Active Protocol: Document 08/25/19 09:00 DCW (Rec: 08/25/19 09:21 DCW [id number]) Functional Tests Apley's Scratch Test Action 1- Left Lateral opposite shoulder Action 1- Right Posterior opposite shoulder Action 2- Left C6 Action 2- Right T2 Action 3- Left T10 Action 3- Right T10 PT-OP-F Manual Assessment Start: 05/01/19 15:22 Freq: Status: Active Protocol: Document 08/25/19 09:00 DCW (Rec: 08/25/19 09:21 DCW [id number]) Manual Assessments Soft Tissue Assessment Soft Tissue Mobility Assessment Mild-Moderate tone - left subscap. bilateral Upper Trap, tenderness to palpation 2/4: Pain with wincing PT-OP-J Posture/Palpation/Skin Start: 05/01/19 15:22 Freq: Status: Active Protocol: Document 08/25/19 09:00 DCW (Rec: 08/25/19 09:21 DCW [id number]) Posture Evaluation Position Standing Head/C-Spine Posture Forward Head Scapula Posture (L) Protracted,(R) Protracted Comments Posture Comments Measurement from spine to medial boarder of scapula at level of scapular spine: L = 8 cm, R = 8 cm Measurement from spine to inferior angle of scapula: L = 12 cm, R= 13 cm PT-OP-K Range of Motion Start: 05/01/19 15:22 Freq: Status: Active Protocol: Document 08/25/19 09:00 DCW (Rec: 08/25/19 09:21 DCW [id number]) Shoulder Goniometric Range of Motion Shoulder Right Active Shoulder ROM WFL No Testing Position Sitting Flexion 153 Abduction 139 External Rotation at 0 degrees Abduction 66 Internal Rotation Behind Back (text) T10 Left Active Shoulder ROM WFL No Testing Position Sitting Flexion 124 Abduction 126 External Rotation at 0 degrees Abduction 62 Internal Rotation Behind Back (text) T10 PT-OP-L Special Tests Start: 05/01/19 15:22 Freq: Status: Active Protocol: Document 08/25/19 09:00 DCW (Rec: 08/25/19 09:21 DCW [id number]) Special Tests Shoulder Special Tests Painful Arc Test Results L Positive Passive ER Rotator Cuff Test Results Negative Lift-Off Rotator Cuff Test Results Negative Adame Irving Impingement Test Results Negative Empty Can Test Results Negative Drop Arm Rotator Cuff Test Results Negative Belly Press Test Results Negative PT-OP-M Strength Start: 05/01/19 15:22 Freq: Status: Active Protocol: Document 08/25/19 09:00 DCW (Rec: 08/25/19 09:21 DCW [id number]) Shoulder Strength Shoulder Manual Muscle Testing Right Flexion 3- Fair- Abduction (C5) 4 Good External Rotation 4+ Good+ Internal Rotation 4+ Good+ Left Flexion 3- Fair- Abduction (C5) 3- Fair- External Rotation 4+ Good+ Internal Rotation 4+ Good+ PT-OP-Q Treatments Start: 05/01/19 15:22 Freq: Status: Active Protocol: Document 09/12/19 11:15 DCW (Rec: 09/12/19 12:01 DCW [id number]) Cardio Equipment Upper Body Ergometer (UBE) Duration (Minutes) 6 RPM 60 Seat Position 15 Height 4.5 Gym Equipment Therapeutic Ball Isometric hold Exercise Details Isometric hold vs perturbations Ball Size/Color Blue - 45 cm Body Position Supine Comments 90 degree shoulder flexion Therapeutic Exercises Supine Exercises Horizontal Adduction Supine Exercise Name Horizontal Adduction Side bilateral Resistance 4# Reps/Minutes x20 Supine Punch Supine Exercise Name Serratus punch Side bilateral Resistance 4# Reps/Minutes x20 Sitting Exercises PROM Sitting Exercise Name Shoulder Flexion/Abduction Side bilateral Equipment Used Pulleys Standing Exercises Shoulder Press Standing Exercise Name Shoulder Press Side bilateral Resistance 4# Flexion Standing Exercise Name Shoulder Flexion Side bilateral Resistance 4# Abduction Standing Exercise Name Shoulder Abduction Side bilateral Resistance 4# IR Stretch Standing Exercise Name Shoulder IR Side left Equipment Used Pulleys Manual Therapy Treatment Soft Tissue Mobilization Subscap Body Location L Subscap Mobilization Type Strumming,Sustained Pressure, Trigger Point Release Joint Mobilizations 1 Joint L GH Direction Inferior Grade III Body Position Supine PT-OP-T Assessment and Plan Start: 05/01/19 15:22 Freq: Status: Active Protocol: Document 09/12/19 11:15 DCW (Rec: 09/12/19 12:01 DCW [id number]) Physical Therapy Assessment Impairments Impairments Activity Tolerance,Functional Mobility,Pain,Posture,ROM,Soft Tissue Mobility,Strength Goals Five Impairment Pt presents with increased forward shoulder posture Chcf Goal (LTG) Measurement from spine to medial boarder of scapula to at most 8 cm bilaterally LTG Duration Met Four Impairment Pt displays limited shoulder ROM bilaterally Short Term Goal (STG) Right active flexion and abduction to 140? Left active flexion and abduction to 110? STG Duration Met Copy Coordinator Goal (LTG) Flexion and abduction to 150? bilaterally LTG Duration 08/30/19 - Improving Three Impairment Pt unable to tolerate working in his workshop due to pain Short Term Goal (STG) Pt to demonstrate overhead positioning of his bilateral arms with no increased pain STG Duration 09/23/19 - Improving Copy Coordinator Goal (LTG) Pt to lift >45# without an increase in symptoms in his shoulders LTG Duration 10/24/19 Two Impairment Pt has difficulty dressing himself secondary to shoulder pain Copy Coordinator Goal (LTG) Pt to don/doff jacket without an increase in shoulder pain bilaterally LTG Duration Met One Impairment Pt does not have appropriate home exercise program Short Term Goal (STG) Pt to be independent and compliant with an appropriate HEP STG Duration Met Assessment Summary Assessment Pt shoulder mobility improving , having some discomfort at end-range abduction and flexion. Pt feels like his strength is improving. Physical Therapy Plan Frequency and Duration Frequency of Treatment 2x/Week Duration of Treatment Two months Plan of Care Start Date 08/25/19 Plan of Care End Date 10/24/19 Therapeutic Interventions Therapeutic Interventions Home Exercise Program,Joint Mobilizations,Manual Therapy, Neuromuscular Re-education, Patient/Caregiver Education, Self-Care/Home Management,Soft Tissue Mobilization, Therapeutic Activities, Therapeutic Exercises Modalities Cold Pack/Ice Massage,Electric Stimulation,Hot Packs Next Visit Focus/Plan Next Note Type Treatment Note Next Visit Plan Shoulder ROM, posture training , strengthening
--- NOTE | 2019-09-15 10:45 | PT.OTN ---
Current Diagnoses Other specific arthropathies, not elsewhere classified, left shoulder (09/15/19) Pain in right shoulder (09/15/19) Pain in left shoulder (09/15/19) Stiffness of right shoulder, not elsewhere classified (09/15/19) Stiffness of left shoulder, not elsewhere classified (09/15/19) Impingement syndrome of right shoulder (09/15/19) Impingement syndrome of left shoulder (09/15/19) Abnormal posture (09/15/19) Strain of muscle(s) and tendon(s) of the rotator cuff of left shoulder, subsequent encounter (09/15/19) Physical Therapy Treatment Note PT-OP-A Visit Information Start: 05/01/19 15:22 Freq: Status: Active Protocol: Document 09/15/19 09:45 DCW (Rec: 09/15/19 10:45 DCW [id number]) Out-Patient Physical Therapy Visit Information Visit Information Visit Type Treatment Note Visit Note 09/11 Visit Start Time 09:45 Visit Stop Time 10:30 Total Visit Minutes 45 Visit Number 25 Number of DIRECTOR CLINICAL DATA Visits 0 Evaluation Information Evaluation Date 05/01/19 PT-OP-B Current Condition Start: 05/01/19 15:22 Freq: Status: Active Protocol: Document 05/01/19 12:00 DCW (Rec: 05/01/19 17:53 DCW [id number]) Current Condition History of Current Condition Onset Date Three months Current Complaints Bilateral shoulder pain, immobility History of Current Condition Pt is a 74 year old male presenting with a three month history of left shoulder pain. Pt reports that he was reaching back to y to put a backpack on, and suddenly got a tremendous pain in his left shoulder. Pt has since been experiencing increased pain with any backward reaching, like trying to put on a jacket or reaching back for a seat belt. Pt also notes pain lifting more than 25 lbs , or lifting his arm overhead. Pt additionally has noticed that a few weeks ago, his right shoulder has now been bothering him with lifting or overhead motion as well, although this does not appear to be associated with any one event. Pt reports he had Dr. Ugarte check his shoulder, and was told that it won't get better without PT, so here I am. Pt has been seen in this facility multiple times, most recently for pre- and post-op therapy for a TKA. Treatment Goals Patient/Caregiver Goals Improve strength and function of his shoulders so he can return to his workshop with no limitations. 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 PT-OP-E Functional Tests Start: 05/01/19 15:22 Freq: Status: Active Protocol: Document 08/25/19 09:00 DCW (Rec: 08/25/19 09:21 DCW [id number]) Functional Tests Apley's Scratch Test Action 1- Left Lateral opposite shoulder Action 1- Right Posterior opposite shoulder Action 2- Left C6 Action 2- Right T2 Action 3- Left T10 Action 3- Right T10 PT-OP-F Manual Assessment Start: 05/01/19 15:22 Freq: Status: Active Protocol: Document 08/25/19 09:00 DCW (Rec: 08/25/19 09:21 DCW [id number]) Manual Assessments Soft Tissue Assessment Soft Tissue Mobility Assessment Mild-Moderate tone - left subscap. bilateral Upper Trap, tenderness to palpation 2/4: Pain with wincing PT-OP-J Posture/Palpation/Skin Start: 05/01/19 15:22 Freq: Status: Active Protocol: Document 08/25/19 09:00 DCW (Rec: 08/25/19 09:21 DCW [id number]) Posture Evaluation Position Standing Head/C-Spine Posture Forward Head Scapula Posture (L) Protracted,(R) Protracted Comments Posture Comments Measurement from spine to medial boarder of scapula at level of scapular spine: L = 8 cm, R = 8 cm Measurement from spine to inferior angle of scapula: L = 12 cm, R= 13 cm PT-OP-K Range of Motion Start: 05/01/19 15:22 Freq: Status: Active Protocol: Document 08/25/19 09:00 DCW (Rec: 08/25/19 09:21 DCW [id number]) Shoulder Goniometric Range of Motion Shoulder Right Active Shoulder ROM WFL No Testing Position Sitting Flexion 153 Abduction 139 External Rotation at 0 degrees Abduction 66 Internal Rotation Behind Back (text) T10 Left Active Shoulder ROM WFL No Testing Position Sitting Flexion 124 Abduction 126 External Rotation at 0 degrees Abduction 62 Internal Rotation Behind Back (text) T10 PT-OP-L Special Tests Start: 05/01/19 15:22 Freq: Status: Active Protocol: Document 08/25/19 09:00 DCW (Rec: 08/25/19 09:21 DCW [id number]) Special Tests Shoulder Special Tests Painful Arc Test Results L Positive Passive ER Rotator Cuff Test Results Negative Lift-Off Rotator Cuff Test Results Negative Adame Irving Impingement Test Results Negative Empty Can Test Results Negative Drop Arm Rotator Cuff Test Results Negative Belly Press Test Results Negative PT-OP-M Strength Start: 05/01/19 15:22 Freq: Status: Active Protocol: Document 08/25/19 09:00 DCW (Rec: 08/25/19 09:21 DCW [id number]) Shoulder Strength Shoulder Manual Muscle Testing Right Flexion 3- Fair- Abduction (C5) 4 Good External Rotation 4+ Good+ Internal Rotation 4+ Good+ Left Flexion 3- Fair- Abduction (C5) 3- Fair- External Rotation 4+ Good+ Internal Rotation 4+ Good+ PT-OP-Q Treatments Start: 05/01/19 15:22 Freq: Status: Active Protocol: Document 09/15/19 09:45 DCW (Rec: 09/15/19 10:45 DCW [id number]) Cardio Equipment Upper Body Ergometer (UBE) Duration (Minutes) 6 RPM 60 Seat Position 15 Height 4.5 Gym Equipment Cable Column (Body Solid) Lat Pull Down Resistance 50# Therapeutic Ball Isometric hold Exercise Details Isometric hold vs perturbations Ball Size/Color Blue - 45 cm Body Position Supine Comments 90 degree shoulder flexion Therapeutic Exercises Supine Exercises Horizontal Adduction Supine Exercise Name Horizontal Adduction Side bilateral Resistance 4# Reps/Minutes x20 Supine Punch Supine Exercise Name Serratus punch Side bilateral Resistance 4# Reps/Minutes x20 Sitting Exercises PROM Sitting Exercise Name Shoulder Flexion/Abduction Side bilateral Equipment Used Pulleys Standing Exercises Shoulder Press Standing Exercise Name Shoulder Press Side bilateral Resistance 4# Flexion Standing Exercise Name Shoulder Flexion Side bilateral Resistance 4# Abduction Standing Exercise Name Shoulder Abduction Side bilateral Resistance 4# IR Stretch Standing Exercise Name Shoulder IR Side left Equipment Used Pulleys Manual Therapy Treatment Soft Tissue Mobilization Subscap Body Location L Subscap Mobilization Type Strumming,Sustained Pressure, Trigger Point Release Joint Mobilizations 1 Joint L GH Direction Inferior Grade III Body Position Supine PT-OP-T Assessment and Plan Start: 05/01/19 15:22 Freq: Status: Active Protocol: Document 09/15/19 09:45 DCW (Rec: 09/15/19 10:45 DCW [id number]) Physical Therapy Assessment Impairments Impairments Activity Tolerance,Functional Mobility,Pain,Posture,ROM,Soft Tissue Mobility,Strength Goals Five Impairment Pt presents with increased forward shoulder posture Senior Living Goal (LTG) Measurement from spine to medial boarder of scapula to at most 8 cm bilaterally LTG Duration Met Four Impairment Pt displays limited shoulder ROM bilaterally Short Term Goal (STG) Right active flexion and abduction to 140? Left active flexion and abduction to 110? STG Duration Met Echocardiography Radiology Technologist Goal (LTG) Flexion and abduction to 150? bilaterally LTG Duration 08/30/19 - Improving Three Impairment Pt unable to tolerate working in his workshop due to pain Short Term Goal (STG) Pt to demonstrate overhead positioning of his bilateral arms with no increased pain STG Duration 09/23/19 - Improving Echocardiography Radiology Technologist Goal (LTG) Pt to lift >45# without an increase in symptoms in his shoulders LTG Duration 10/24/19 Two Impairment Pt has difficulty dressing himself secondary to shoulder pain Senior Living Goal (LTG) Pt to don/doff jacket without an increase in shoulder pain bilaterally LTG Duration Met One Impairment Pt does not have appropriate home exercise program Short Term Goal (STG) Pt to be independent and compliant with an appropriate HEP STG Duration Met Assessment Summary Assessment Pt doing well, continues to show improvement. Physical Therapy Plan Frequency and Duration Frequency of Treatment 2x/Week Duration of Treatment Two months Plan of Care Start Date 08/25/19 Plan of Care End Date 10/24/19 Therapeutic Interventions Therapeutic Interventions Home Exercise Program,Joint Mobilizations,Manual Therapy, Neuromuscular Re-education, Patient/Caregiver Education, Self-Care/Home Management,Soft Tissue Mobilization, Therapeutic Activities, Therapeutic Exercises Modalities Cold Pack/Ice Massage,Electric Stimulation,Hot Packs Next Visit Focus/Plan Next Note Type Treatment Note Next Visit Plan Shoulder ROM, posture training , strengthening
--- NOTE | 2019-09-20 12:49 | PT.OTN ---
Current Diagnoses Other specific arthropathies, not elsewhere classified, left shoulder (09/20/19) Pain in right shoulder (09/20/19) Pain in left shoulder (09/20/19) Stiffness of right shoulder, not elsewhere classified (09/20/19) Stiffness of left shoulder, not elsewhere classified (09/20/19) Impingement syndrome of right shoulder (09/20/19) Impingement syndrome of left shoulder (09/20/19) Abnormal posture (09/20/19) Strain of muscle(s) and tendon(s) of the rotator cuff of left shoulder, subsequent encounter (09/20/19) Physical Therapy Treatment Note PT-OP-A Visit Information Start: 05/01/19 15:22 Freq: Status: Active Protocol: Document 09/20/19 12:00 DCW (Rec: 09/20/19 12:48 DCW [id number]) Out-Patient Physical Therapy Visit Information Visit Information Visit Type Treatment Note Visit Note 10/12 Visit Start Time 12:00 Visit Stop Time 12:45 Total Visit Minutes 45 Visit Number 26 Number of MUSEUM REGISTRAR Visits 0 Evaluation Information Evaluation Date 05/01/19 PT-OP-B Current Condition Start: 05/01/19 15:22 Freq: Status: Active Protocol: Document 05/01/19 12:00 DCW (Rec: 05/01/19 17:53 DCW [id number]) Current Condition History of Current Condition Onset Date Three months Current Complaints Bilateral shoulder pain, immobility History of Current Condition Pt is a 74 year old male presenting with a three month history of left shoulder pain. Pt reports that he was reaching back to y to put a backpack on, and suddenly got a tremendous pain in his left shoulder. Pt has since been experiencing increased pain with any backward reaching, like trying to put on a jacket or reaching back for a seat belt. Pt also notes pain lifting more than 25 lbs , or lifting his arm overhead. Pt additionally has noticed that a few weeks ago, his right shoulder has now been bothering him with lifting or overhead motion as well, although this does not appear to be associated with any one event. Pt reports he had Dr. Ugarte check his shoulder, and was told that it won't get better without PT, so here I am. Pt has been seen in this facility multiple times, most recently for pre- and post-op therapy for a TKA. Treatment Goals Patient/Caregiver Goals Improve strength and function of his shoulders so he can return to his workshop with no limitations. PT-OP-C Subjective Start: 05/01/19 15:22 Freq: Status: Active Protocol: Document 09/20/19 12:00 DCW (Rec: 09/20/19 12:49 DCW [id number]) OP-PT Subjective Patient Comments Patient Comments Pt worried about Covid-19 due to his compromised immune systems. Reports his shoulder has been feeling much better. Patient Reported Progress Improving PT-OP-E Functional Tests Start: 05/01/19 15:22 Freq: Status: Active Protocol: Document 08/25/19 09:00 DCW (Rec: 08/25/19 09:21 DCW [id number]) Functional Tests Apley's Scratch Test Action 1- Left Lateral opposite shoulder Action 1- Right Posterior opposite shoulder Action 2- Left C6 Action 2- Right T2 Action 3- Left T10 Action 3- Right T10 PT-OP-F Manual Assessment Start: 05/01/19 15:22 Freq: Status: Active Protocol: Document 08/25/19 09:00 DCW (Rec: 08/25/19 09:21 DCW [id number]) Manual Assessments Soft Tissue Assessment Soft Tissue Mobility Assessment Mild-Moderate tone - left subscap. bilateral Upper Trap, tenderness to palpation 2/4: Pain with wincing PT-OP-J Posture/Palpation/Skin Start: 05/01/19 15:22 Freq: Status: Active Protocol: Document 08/25/19 09:00 DCW (Rec: 08/25/19 09:21 DCW [id number]) Posture Evaluation Position Standing Head/C-Spine Posture Forward Head Scapula Posture (L) Protracted,(R) Protracted Comments Posture Comments Measurement from spine to medial boarder of scapula at level of scapular spine: L = 8 cm, R = 8 cm Measurement from spine to inferior angle of scapula: L = 12 cm, R= 13 cm PT-OP-K Range of Motion Start: 05/01/19 15:22 Freq: Status: Active Protocol: Document 08/25/19 09:00 DCW (Rec: 08/25/19 09:21 DCW [id number]) Shoulder Goniometric Range of Motion Shoulder Right Active Shoulder ROM WFL No Testing Position Sitting Flexion 153 Abduction 139 External Rotation at 0 degrees Abduction 66 Internal Rotation Behind Back (text) T10 Left Active Shoulder ROM WFL No Testing Position Sitting Flexion 124 Abduction 126 External Rotation at 0 degrees Abduction 62 Internal Rotation Behind Back (text) T10 PT-OP-L Special Tests Start: 05/01/19 15:22 Freq: Status: Active Protocol: Document 08/25/19 09:00 DCW (Rec: 08/25/19 09:21 DCW [id number]) Special Tests Shoulder Special Tests Painful Arc Test Results L Positive Passive ER Rotator Cuff Test Results Negative Lift-Off Rotator Cuff Test Results Negative Adame Irving Impingement Test Results Negative Empty Can Test Results Negative Drop Arm Rotator Cuff Test Results Negative Belly Press Test Results Negative PT-OP-M Strength Start: 05/01/19 15:22 Freq: Status: Active Protocol: Document 08/25/19 09:00 DCW (Rec: 08/25/19 09:21 DCW [id number]) Shoulder Strength Shoulder Manual Muscle Testing Right Flexion 3- Fair- Abduction (C5) 4 Good External Rotation 4+ Good+ Internal Rotation 4+ Good+ Left Flexion 3- Fair- Abduction (C5) 3- Fair- External Rotation 4+ Good+ Internal Rotation 4+ Good+ PT-OP-Q Treatments Start: 05/01/19 15:22 Freq: Status: Active Protocol: Document 09/20/19 12:00 DCW (Rec: 09/20/19 12:48 DCW [id number]) Gym Equipment Therapeutic Ball Isometric hold Exercise Details Isometric hold vs perturbations Ball Size/Color Blue - 45 cm Body Position Supine Comments 90 degree shoulder flexion Therapeutic Exercises Supine Exercises Horizontal Adduction Supine Exercise Name Horizontal Adduction Side bilateral Resistance 4# Reps/Minutes x20 Supine Punch Supine Exercise Name Serratus punch Side bilateral Resistance 4# Reps/Minutes x20 Sitting Exercises PROM Sitting Exercise Name Shoulder Flexion/Abduction Side bilateral Equipment Used Pulleys Standing Exercises Shoulder Press Standing Exercise Name Shoulder Press Side bilateral Resistance 4# Flexion Standing Exercise Name Shoulder Flexion Side bilateral Resistance 4# Abduction Standing Exercise Name Shoulder Abduction Side bilateral Resistance 4# IR Stretch Standing Exercise Name Shoulder IR Side left Equipment Used Pulleys Manual Therapy Treatment Soft Tissue Mobilization Subscap Body Location L Subscap Mobilization Type Strumming,Sustained Pressure, Trigger Point Release Joint Mobilizations 1 Joint L GH Direction Inferior Grade III Body Position Supine PT-OP-T Assessment and Plan Start: 05/01/19 15:22 Freq: Status: Active Protocol: Document 09/20/19 12:00 DCW (Rec: 09/20/19 12:48 DCW [id number]) Physical Therapy Assessment Impairments Impairments Activity Tolerance,Functional Mobility,Pain,Posture,ROM,Soft Tissue Mobility,Strength Goals Five Impairment Pt presents with increased forward shoulder posture Detention Goal (LTG) Measurement from spine to medial boarder of scapula to at most 8 cm bilaterally LTG Duration Met Four Impairment Pt displays limited shoulder ROM bilaterally Short Term Goal (STG) Right active flexion and abduction to 140? Left active flexion and abduction to 110? STG Duration Met Rn Imaging Goal (LTG) Flexion and abduction to 150? bilaterally LTG Duration 08/30/19 - Improving Three Impairment Pt unable to tolerate working in his workshop due to pain Short Term Goal (STG) Pt to demonstrate overhead positioning of his bilateral arms with no increased pain STG Duration 09/23/19 - Improving Detention Goal (LTG) Pt to lift >45# without an increase in symptoms in his shoulders LTG Duration 10/24/19 Two Impairment Pt has difficulty dressing himself secondary to shoulder pain Detention Goal (LTG) Pt to don/doff jacket without an increase in shoulder pain bilaterally LTG Duration Met One Impairment Pt does not have appropriate home exercise program Short Term Goal (STG) Pt to be independent and compliant with an appropriate HEP STG Duration Met Assessment Summary Assessment Pt doing well overall, however due to concerns with the coronavirus/Covid-19, pt's upcoming appointments over the next two weeks will be canceled. Physical Therapy Plan Frequency and Duration Frequency of Treatment 2x/Week Duration of Treatment Two months Plan of Care Start Date 08/25/19 Plan of Care End Date 10/24/19 Therapeutic Interventions Therapeutic Interventions Home Exercise Program,Joint Mobilizations,Manual Therapy, Neuromuscular Re-education, Patient/Caregiver Education, Self-Care/Home Management,Soft Tissue Mobilization, Therapeutic Activities, Therapeutic Exercises Modalities Cold Pack/Ice Massage,Electric Stimulation,Hot Packs Next Visit Focus/Plan Next Note Type Treatment Note Next Visit Plan Shoulder ROM, posture training , strengthening
--- NOTE | 2019-12-19 14:24 | PT.OPPN ---
Current Diagnoses Other specific arthropathies, not elsewhere classified, left shoulder (12/19/19) Pain in right shoulder (12/19/19) Pain in left shoulder (12/19/19) Stiffness of right shoulder, not elsewhere classified (12/19/19) Stiffness of left shoulder, not elsewhere classified (12/19/19) Impingement syndrome of right shoulder (12/19/19) Impingement syndrome of left shoulder (12/19/19) Abnormal posture (12/19/19) Strain of muscle(s) and tendon(s) of the rotator cuff of left shoulder, subsequent encounter (12/19/19) Physical Therapy Progress Note PT-OP-A Visit Information Start: 05/01/19 15:22 Freq: Status: Active Protocol: Document 12/19/19 13:45 DCW (Rec: 12/19/19 14:24 DCW [id number]) Out-Patient Physical Therapy Visit Information Visit Information Visit Type Progress Note Visit Start Time 13:45 Visit Stop Time 14:15 Total Visit Minutes 30 Visit Number 27 Number of DRILL SHARPENER OPERATOR Visits 0 Evaluation Information Evaluation Date 05/01/19 PT-OP-B Current Condition Start: 05/01/19 15:22 Freq: Status: Active Protocol: Document 05/01/19 12:00 DCW (Rec: 05/01/19 17:53 DCW [id number]) Current Condition History of Current Condition Onset Date Three months Current Complaints Bilateral shoulder pain, immobility History of Current Condition Pt is a 74 year old male presenting with a three month history of left shoulder pain. Pt reports that he was reaching back to rty to put a backpack on, and suddenly got a tremendous pain in his left shoulder. Pt has since been experiencing increased pain with any backward reaching, like trying to put on a jacket or reaching back for a seat belt. Pt also notes pain lifting more than 25 lbs , or lifting his arm overhead. Pt additionally has noticed that a few weeks ago, his right shoulder has now been bothering him with lifting or overhead motion as well, although this does not appear to be associated with any one event. Pt reports he had Dr. Ugarte check his shoulder, and was told that it won't get better without PT, so here I am. Pt has been seen in this facility multiple times, most recently for pre- and post-op therapy for a TKA. Treatment Goals Patient/Caregiver Goals Improve strength and function of his shoulders so he can return to his workshop with no limitations. PT-OP-C Subjective Start: 05/01/19 15:22 Freq: Status: Active Protocol: Document 12/19/19 13:45 DCW (Rec: 12/19/19 14:24 DCW [id number]) OP-PT Subjective Patient Comments Patient Comments Pt reports he is actually doing really well, and I just wanted to come by for some measurements and see where I was. PT-OP-E Functional Tests Start: 05/01/19 15:22 Freq: Status: Active Protocol: Document 12/19/19 13:45 DCW (Rec: 12/19/19 14:14 DCW [id number]) Functional Tests Apley's Scratch Test Action 1: The subject is instructed to touch the opposite shoulder with his/her hand. This motion checks Glenohumeral adduction, internal rotation , horizontal adduction and scapular protraction Action 2: The subject is instructed to place his/her arm overhead and reach behind the neck to touch his/her upper back. This motion checks Glenohumeral abduction, external rotation and scapular upward rotation and elevation. Action 3: The subject puts his/her hand on the lower back and reaches upward as far as possible. This motion checks glenohumeral adduction, internal rotation and scapular retraction with downward rotation Action 1- Left Posterior opposite shoulder Action 1- Right Posterior opposite shoulder Action 2- Left C7 Action 2- Right T2 Action 3- Left T10 Action 3- Right T10 PT-OP-F Manual Assessment Start: 05/01/19 15:22 Freq: Status: Active Protocol: Document 12/19/19 13:45 DCW (Rec: 12/19/19 14:14 DCW [id number]) Manual Assessments Soft Tissue Assessment Soft Tissue Mobility Assessment Mild tone - left subscap. bilateral Upper Trap, tenderness to palpation 1/4: Pain with wincing PT-OP-J Posture/Palpation/Skin Start: 05/01/19 15:22 Freq: Status: Active Protocol: Document 12/19/19 13:45 DCW (Rec: 12/19/19 14:14 DCW [id number]) Posture Evaluation Position Standing Head/C-Spine Posture Forward Head Scapula Posture (L) Protracted,(R) Protracted Comments Posture Comments Measurement from spine to medial boarder of scapula at level of scapular spine: L = 8 cm, R = 8 cm Measurement from spine to inferior angle of scapula: L = 12 cm, R= 12 cm PT-OP-K Range of Motion Start: 05/01/19 15:22 Freq: Status: Active Protocol: Document 12/19/19 13:45 DCW (Rec: 12/19/19 14:14 DCW [id number]) Shoulder Goniometric Range of Motion Shoulder Measured in Degrees Right Active Shoulder ROM WFL No Testing Position Sitting Flexion 156 Abduction 162 External Rotation at 0 degrees Abduction 71 Internal Rotation Behind Back (text) T10 Left Active Shoulder ROM WFL No Testing Position Sitting Flexion 136 Abduction 142 External Rotation at 0 degrees Abduction 70 Internal Rotation Behind Back (text) T10 PT-OP-L Special Tests Start: 05/01/19 15:22 Freq: Status: Active Protocol: Document 12/19/19 13:45 DCW (Rec: 12/19/19 14:14 DCW [id number]) Special Tests Shoulder Special Tests Painful Arc Test Results L Positive PT-OP-M Strength Start: 05/01/19 15:22 Freq: Status: Active Protocol: Document 12/19/19 13:45 DCW (Rec: 12/19/19 14:14 DCW [id number]) Shoulder Strength Shoulder Manual Muscle Testing Right Flexion 4- Good- Abduction (C5) 4 Good External Rotation 4 Good Internal Rotation 4+ Good+ Left Flexion 4- Good- Abduction (C5) 4- Good- External Rotation 4+ Good+ Internal Rotation 4+ Good+ PT-OP-T Assessment and Plan Start: 05/01/19 15:22 Freq: Status: Active Protocol: Document 12/19/19 13:45 DCW (Rec: 12/19/19 14:24 DCW [id number]) Physical Therapy Assessment Impairments Impairments Activity Tolerance,Functional Mobility,Pain,Posture,ROM,Soft Tissue Mobility,Strength Goals Five Impairment Pt presents with increased forward shoulder posture Territory Sales Representative Goal (LTG) Measurement from spine to medial boarder of scapula to at most 8 cm bilaterally LTG Duration Met Four Impairment Pt displays limited shoulder ROM bilaterally Short Term Goal (STG) Right active flexion and abduction to 140? Left active flexion and abduction to 110? STG Duration Met Territory Sales Representative Goal (LTG) Flexion and abduction to 150? bilaterally LTG Duration Improving Three Impairment Pt unable to tolerate working in his workshop due to pain Short Term Goal (STG) Pt to demonstrate overhead positioning of his bilateral arms with no increased pain STG Duration Met Fpc Goal (LTG) Pt to lift >45# without an increase in symptoms in his shoulders LTG Duration Met Two Impairment Pt has difficulty dressing himself secondary to shoulder pain Territory Sales Representative Goal (LTG) Pt to don/doff jacket without an increase in shoulder pain bilaterally LTG Duration Met One Impairment Pt does not have appropriate home exercise program Short Term Goal (STG) Pt to be independent and compliant with an appropriate HEP STG Duration Met Assessment Summary Assessment Pt doing well, as met nearly all goals, still slightly limited with left shoulder ROM , but has improved from 91?-> 136? flexion and 68? -> 142? abduction. Pt will be discharged from skilled therapy at this time. Physical Therapy Plan Frequency and Duration Frequency of Treatment 1x/Week Duration of Treatment 1 day Plan of Care Start Date 12/19/19 Plan of Care End Date 12/20/19 Discharge Physical Therapy Discharge Reasons Goals Met Next Visit Focus/Plan Next Note Type Discharge Summary
--- NOTE | 2019-12-19 14:24 | PT.OPPOC ---
Physical, Occupational & Speech Therapy At [facility] Current Diagnoses Other specific arthropathies, not elsewhere classified, left shoulder (12/19/19) Pain in right shoulder (12/19/19) Pain in left shoulder (12/19/19) Stiffness of right shoulder, not elsewhere classified (12/19/19) Stiffness of left shoulder, not elsewhere classified (12/19/19) Impingement syndrome of right shoulder (12/19/19) Impingement syndrome of left shoulder (12/19/19) Abnormal posture (12/19/19) Strain of muscle(s) and tendon(s) of the rotator cuff of left shoulder, subsequent encounter (12/19/19) Visit Care Team Role Provider Type Kavita Aranda MD Primary Care Provider Non-Staff Specialty: Internal Medicine Address: [address] [place] [address], [address], [place], [address] Email: Franck Ugarte MD Attending Provider Non-Staff Specialty: Internal Medicine Address: [address] [place] [address], [address], [place], [address] Email: Plan Of Care PT-OP-T Assessment and Plan Start: 05/01/19 15:22 Freq: Status: Active Protocol: Document 12/19/19 13:45 DCW (Rec: 12/19/19 14:24 DCW [id number]) Physical Therapy Assessment Impairments Impairments Activity Tolerance,Functional Mobility,Pain,Posture,ROM,Soft Tissue Mobility,Strength Goals Five Impairment Pt presents with increased forward shoulder posture Skilled Nursing Goal (LTG) Measurement from spine to medial boarder of scapula to at most 8 cm bilaterally LTG Duration Met Four Impairment Pt displays limited shoulder ROM bilaterally Short Term Goal (STG) Right active flexion and abduction to 140? Left active flexion and abduction to 110? STG Duration Met Fill Technician Goal (LTG) Flexion and abduction to 150? bilaterally LTG Duration Improving Three Impairment Pt unable to tolerate working in his workshop due to pain Short Term Goal (STG) Pt to demonstrate overhead positioning of his bilateral arms with no increased pain STG Duration Met Fill Technician Goal (LTG) Pt to lift >45# without an increase in symptoms in his shoulders LTG Duration Met Two Impairment Pt has difficulty dressing himself secondary to shoulder pain Skilled Nursing Goal (LTG) Pt to don/doff jacket without an increase in shoulder pain bilaterally LTG Duration Met One Impairment Pt does not have appropriate home exercise program Short Term Goal (STG) Pt to be independent and compliant with an appropriate HEP STG Duration Met Assessment Summary Assessment Pt doing well, as met nearly all goals, still slightly limited with left shoulder ROM , but has improved from 91?-> 136? flexion and 68? -> 142? abduction. Pt will be discharged from skilled therapy at this time. Physical Therapy Plan Frequency and Duration Frequency of Treatment 1x/Week Duration of Treatment 1 day Plan of Care Start Date 12/19/19 Plan of Care End Date 12/20/19 Discharge Physical Therapy Discharge Reasons Goals Met Next Visit Focus/Plan Next Note Type Discharge Summary Plan of Care Dates Plan of Care Start Date 12/19/19 Plan of Care End Date 12/20/19 Electronically Signed by: Evaristo Carvalho, PT 12/19/19 [id number] Please Sign and Return: I have reviewed this Plan of Care and certify that the skilled therapy services above are required to meet the patient?s needs. Physician Signature Date Printed Name and Credentials Clinical Instructor Signature Printed Name and Credentials
== END 2019-12-26 12:19 ==
LOC: PHYS 13:45
PROVIDERS: PCP Internal Medicine; Visit Provider Internal Medicine
DX: M12.812 Other specific arthropathies, not elsewhere classified, left shoulder (principal); S46.012D Strain of muscle(s) and tendon(s) of the rotator cuff of left shoulder, subsequent encounter; M75.42 Impingement syndrome of left shoulder; M75.41 Impingement syndrome of right shoulder; M25.612 Stiffness of left shoulder, not elsewhere classified; M25.611 Stiffness of right shoulder, not elsewhere classified; M25.512 Pain in left shoulder; M25.511 Pain in right shoulder; R29.3 Abnormal posture
CPT/HCPCS: 97110; 97140; 97162

== ENCOUNTER → 2019-12-21 12:23 | Outpatient (CLI) | payer MEDICARE, OTHER, SELFPAY ==
[2018-09-06 16:27] VITALS: BMI 31.1
[2019-12-27 07:04] LABS: Percent Free Testosterone 2.09 % (1.50-4.20); Testosterone Free 10.07 ng/dL (5.00-21.00); Testosterone Total 481.9 ng/dL (264.0-916.0)
== END ==
PROVIDERS: PCP Internal Medicine; Referring Provider Internal Medicine; Visit Provider Internal Medicine
DX: R79.89 Other specified abnormal findings of blood chemistry (principal)
CPT/HCPCS: 36415; 84402; 84403

== ENCOUNTER → 2020-05-17 12:45 | Outpatient (CLI) | payer MEDICARE, OTHER, SELFPAY ==
[2018-09-06 16:27] VITALS: BMI 31.1
[2020-05-17 15:08] LABS: Prostate Specific Antigen Scrn 0.588 ng/mL (0.1-4.0)
== END ==
PROVIDERS: PCP Internal Medicine; Referring Provider Internal Medicine; Visit Provider Internal Medicine
DX: Z12.5 Encounter for screening for malignant neoplasm of prostate (principal)
CPT/HCPCS: 36415; G0103

== ENCOUNTER → 2020-07-18 12:30 | Outpatient (CLI) | payer MEDICARE, OTHER, SELFPAY ==
[2018-09-06 16:27] VITALS: BMI 31.1
[2020-07-18 14:13] LABS: Albumin 4.2 g/dL (3.5-5.0); BUN Creatinine Ratio 14.4 (6-22); Blood Urea Nitrogen 16 mg/dL (9-20); Calcium 9.6 mg/dL (8.4-10.2); Carbon Dioxide 31 mmol/L (22-32); Chloride 103 mmol/L (98-107); Estimated Glomerular Filt Rate > 60.0 mL/min (>60); Glucose 101 mg/dL (80-110); HEMOLYSIS < 15 (0-50); Phosphorous 3.5 mg/dL (2.3-3.7); Potassium 4.5 mmol/L (3.4-5.1); Sodium 139 mmol/L (137-145)
== END ==
PROVIDERS: PCP Internal Medicine; Referring Provider Internal Medicine; Visit Provider Internal Medicine
DX: N18.30 Chronic kidney disease, stage 3 unspecified (principal)
CPT/HCPCS: 36415; 80069

== ENCOUNTER → 2020-08-23 10:36 | Outpatient (CLI) | payer MEDICARE, OTHER, SELFPAY ==
[2018-09-06 16:27] VITALS: BMI 31.1
[2020-08-23 13:08] LABS: Prostate Specific Antigen Scrn 0.729 ng/mL (0.1-4.0)
== END ==
PROVIDERS: PCP Internal Medicine; Referring Provider Internal Medicine; Visit Provider Internal Medicine
DX: Z12.5 Encounter for screening for malignant neoplasm of prostate (principal)
CPT/HCPCS: 36415; G0103

== ENCOUNTER 2021-01-30 10:30 | Outpatient (RCR) | payer MEDICARE, OTHER, SELFPAY ==
[2018-09-06 16:27] VITALS: BMI 31.1
--- NOTE | 2020-05-10 14:28 | PT.OIE ---
Current Diagnoses Other chronic pain (05/10/20) Stiffness of other specified joint, not elsewhere classified (05/10/20) Low back pain (05/10/20) Past Medical History (Last Updated 09/02/18 @ 13:30 by Sabina Sanchez, RN) Alcoholism (Acute) Anxiety (Acute) Atrophic gastritis (Acute) Chronic low back pain (Acute) Cyst in hand (Acute ~2019) Depression (Acute) Diverticulosis (Acute) Dizziness (Acute) Erectile dysfunction (Acute) History of colon polyps (Acute) HTN (hypertension) (Acute) Hydronephrosis (Acute) Hyperlipidemia (Acute) Insomnia (Acute) Ischemia (Acute) Nephrolithiasis (Acute) YAIMA on CPAP (Acute) Osteoarthritis (Acute) Paroxysmal atrial fibrillation (Acute) Paroxysmal atrial flutter (Acute) Prediabetes (Acute) Psoriasis (Acute) Psoriatic arthritis (Acute) Psoriatic arthropathy (Acute) Retroperitoneal mass (Acute) RLS (restless legs syndrome) (Acute) Sinus congestion (Acute) Syncope (Acute) Testosterone deficiency (Acute) Vitamin D deficiency (Acute) Past Surgical History (Last Updated 09/02/18 @ 13:00 by Sabina Sanchez RN) History of total left knee replacement (TKR) (Acute) Hx of lithotripsy (Acute) Visit Care Team Role Provider Type Kavita Aranda MD Primary Care Provider Non-Staff Specialty: Internal Medicine Address: [address] [place] [address] [address], [place], [facility] Email: Franck Ugarte MD Attending Provider Non-Staff Referring Provider Specialty: Internal Medicine Address: [address] [place] [address], [phone] Email: Physical Therapy Initial Evaluation PT-OP-A Visit Information Start: 05/10/20 13:35 Freq: Status: Active Protocol: Document 05/10/20 11:15 DCW (Rec: 05/10/20 13:48 DCW [id number]) Out-Patient Physical Therapy Visit Information Visit Information Visit Type Initial Evaluation Visit Start Time 11:15 Visit Stop Time 12:00 Total Visit Minutes 45 Visit Number 1 Number of COMMERCIAL LITIGATION ATTORNEY Visits 0 Evaluation Information Evaluation Date 05/10/20 PT-OP-B Current Condition Start: 05/10/20 13:35 Freq: Status: Active Protocol: Document 05/10/20 11:15 DCW (Rec: 05/10/20 13:48 DCW [id number]) Current Condition History of Current Condition Onset Date 4-5 months Current Complaints Low back pain/stiffness later in the day History of Current Condition Pt is a 75 year old male well known to this clinic presenting with a 4-5 month history of worsening low back pain. Pt notes his pain worsens throughout the day, but improves with rest. Notes that after walking more than ~ 1/2 mile, it hurts so much that he is unable to stand up straight. He is typically really sore when he gets to bed at night, and if he has to get up in the middie of the night to use the bathroom, it 's really painful, but then by the time morning comes and he gets up, he feels much better. He reports that he was told a number of years ago that his x-rays showed his discs were fusing, but pt feels this pain is more due to core weakness. Prior Treatments and Tests Multiple PT visits secondary to TKA, LE weakness, shoulder pain Personal Factors Other Personal Factors That May Effect Psoriatic arthritis Therapy/Recovery PT-OP-C Subjective Start: 05/10/20 13:35 Freq: Status: Active Protocol: Document 05/10/20 11:15 DCW (Rec: 05/10/20 13:48 MEW [id number]) OP-PT Subjective Patient Comments Patient Comments It's not too bad when I get to rest it. Patient Questionnaires Oswestry Low Back Index Oswestry Score 40% Oswestry Impairment 40 to 59% Impaired (Score 40- 59) OP-PT Pain Assessment Pain Assessment Grid Paper Pain Assessment Grid Completed Yes Location Bilateral Lower Back Intensity 8 Scale Used Numeric (0 - 10) PT-OP-F Manual Assessment Start: 05/10/20 13:35 Freq: Status: Active Protocol: Document 05/10/20 11:15 DCW (Rec: 05/10/20 14:00 DCW [id number]) Manual Assessments Soft Tissue Assessment Soft Tissue Mobility Assessment Severe tone along left-sided lumbar paraspinals, left QL, left adductors, and bilateral posterior hip Joint Mobility Assessment Joint Mobility Assessment Hypomobility of lumbar spine, both during movement PT-OP-K Range of Motion Start: 05/10/20 13:35 Freq: Status: Active Protocol: Document 05/10/20 11:15 DCW (Rec: 05/10/20 14:13 DCW [id number]) Lumbar Spine Range of Motion Lumbar Spine Active Degrees Testing Position Standing Flexion 30 Extension 15 Lateral Flexion Left 57 Lateral Flexion Right 58 ROM Limitations Soft Tissue Tightness,Bony Restriction,Pain Comments Lateral flexion measured in cm from finger tips to floor PT-OP-L Special Tests Start: 05/10/20 13:35 Freq: Status: Active Protocol: Document 05/10/20 11:15 DCW (Rec: 05/10/20 14:13 DCW [id number]) Special Tests Lumbar Spine Special Tests Torsion Test Results R QL pain with left rotation+ compression Vertical Spine Loading Test Results Negative A-P Shearing Test Results Negative Straight Leg Raise Test Results Hamstring stiffness R: 50?, L: 63? Standing Flexion Test Results Stiffness Slump Test Results Negative Passive Neck Flexion Test Results Negative PT-OP-M Strength Start: 05/10/20 13:35 Freq: Status: Active Protocol: Document 05/10/20 11:15 DCW (Rec: 05/10/20 14:13 DCW [id number]) Trunk Strength Trunk Manual Muscle Testing Core Stabilization Pt has difficulty dawson and holding TrA longer than 5 seconds, 3+/5 PT-OP-T Assessment and Plan Start: 05/10/20 13:35 Freq: Status: Active Protocol: Document 05/10/20 11:15 DCW (Rec: 05/10/20 14:28 DCW [id number]) Physical Therapy Assessment Rehab Potential Rehabilitation Potential Good Evaluation Complexity Number of Personal Factors/Comorbidities 3 or More Number of Body Systems Impaired 3 Clinical Presentation at Evaluation Stable Impairments Impairments Activity Tolerance,Functional Activities,Functional Mobility ,Pain,Posture,ROM,Strength Goals Four Impairment Pt displays limited lumbar ROM 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 LTG Duration 07/10/20 One Impairment Pt does not have appropriate home exercise program Short Term Goal (STG) Pt to be independent and compliant with an appropriate HEP STG Duration 06/09/20 Assessment Summary Assessment Pt presents with pain and stiffness in his low back. Pt displays increased muscle tone , L>R, along lumbar paraspinals, posterior hip, QL , and adductors. Lumbar vertebrae show hypomobility, both with flexion/extension and side bending, as well as during manual joint mobilizations. Additionally, pt presents with fairly significant core weakness, and has difficulty dawson TrA. Pt should benefit from STM, joint mobilizations, core strengthening, and pain- control mobility in order to improve his ability to tolerate increased activity like working in his workshop and walking further distances before needing to stop secondary to pain. Pt's symptomology, due to worsening over the course of the day, but feeling good in the morning, is more suggestive of possible facet dysfunction than degenerative changes secondary to OA. Physical Therapy Plan Frequency and Duration Frequency of Treatment 2x/Week Duration of Treatment two months Plan of Care Start Date 05/10/20 Plan of Care End Date 07/10/20 Therapeutic Interventions Therapeutic Interventions Home Exercise Program,Joint Mobilizations,Manual Therapy, Patient/Caregiver Education, Self-Care/Home Management,Soft Tissue Mobilization, Therapeutic Activities, Therapeutic Exercises Modalities Cold Pack/Ice Massage,Electric Stimulation,Hot Packs, Ultrasound Next Visit Focus/Plan Next Note Type Treatment Note Next Visit Plan Core strengthening, STM, joint mobilizations
--- NOTE | 2020-05-10 14:29 | PT.OPPOC ---
Physical, Occupational & Speech Therapy At [facility] Current Diagnoses Other chronic pain (05/10/20) Stiffness of other specified joint, not elsewhere classified (05/10/20) Low back pain (05/10/20) Visit Care Team Role Provider Type Kavita Aranda MD Primary Care Provider Non-Staff Specialty: Internal Medicine Address: [id number] [place] [address], [address], [place], [address] Email: Franck Ugarte MD Attending Provider Non-Staff Referring Provider Specialty: Internal Medicine Address: [id number] [place] [address], [address], [place], [phone] Email: Plan Of Care PT-OP-T Assessment and Plan Start: 05/10/20 13:35 Freq: Status: Active Protocol: Document 05/10/20 11:15 DCW (Rec: 05/10/20 14:28 DCW [id number]) Physical Therapy Assessment Rehab Potential Rehabilitation Potential Good Evaluation Complexity Number of Personal Factors/Comorbidities 3 or More Number of Body Systems Impaired 3 Clinical Presentation at Evaluation Stable Impairments Impairments Activity Tolerance,Functional Activities,Functional Mobility ,Pain,Posture,ROM,Strength Goals Four Impairment Pt displays limited lumbar ROM Licensed Audiologist Goal (LTG) Lumbar flexion and extension to 50? and 25?, respectively LTG Duration 07/10/20 Three Impairment Pt unable to tolerate working in his workshop in the PM due to back pain Fpc Goal (LTG) 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 to spend evenings in his workshop after a day of activity with no increased back pain or stiffness LTG Duration 07/10/20 Two Impairment Pt has severe back pain and is unable to stand straight after walking .5 mi Licensed Audiologist Goal (LTG) Pt to ambulate 1.5 miles with no increase in back pain. LTG Duration 07/10/20 One Impairment Pt does not have appropriate home exercise program Short Term Goal (STG) Pt to be independent and compliant with an appropriate HEP STG Duration 06/09/20 Assessment Summary Assessment Pt presents with pain and stiffness in his low back. Pt displays increased muscle tone , L>R, along lumbar paraspinals, posterior hip, QL , and adductors. Lumbar vertebrae show hypomobility, both with flexion/extension and side bending, as well as during manual joint mobilizations. Additionally, pt presents with fairly significant core weakness, and has difficulty dawson TrA. Pt should benefit from STM, joint mobilizations, core strengthening, and pain- control mobility in order to improve his ability to tolerate increased activity like working in his workshop and walking further distances before needing to stop secondary to pain. Pt's symptomology, due to worsening over the course of the day, but feeling good in the morning, is more suggestive of possible facet dysfunction than degenerative changes secondary to OA. Physical Therapy Plan Frequency and Duration Frequency of Treatment 2x/Week Duration of Treatment two months Plan of Care Start Date 05/10/20 Plan of Care End Date 07/10/20 Therapeutic Interventions Therapeutic Interventions Home Exercise Program,Joint Mobilizations,Manual Therapy, Patient/Caregiver Education, Self-Care/Home Management,Soft Tissue Mobilization, Therapeutic Activities, Therapeutic Exercises Modalities Cold Pack/Ice Massage,Electric Stimulation,Hot Packs, Ultrasound Next Visit Focus/Plan Next Note Type Treatment Note Next Visit Plan Core strengthening, STM, joint mobilizations Plan of Care Dates Plan of Care Start Date 05/10/20 Plan of Care End Date 07/10/20 Electronically Signed by: Evaristo Carvalho, PT 05/10/20 [id number] Please Sign and Return: I have reviewed this Plan of Care and certify that the skilled therapy services above are required to meet the patient?s needs. Physician Signature Date Printed Name and Credentials Clinical Instructor Signature Printed Name and Credentials
--- NOTE | 2020-05-14 17:41 | PT.OTN ---
Current Diagnoses Other chronic pain (05/14/20) Stiffness of other specified joint, not elsewhere classified (05/14/20) Low back pain (05/14/20) Physical Therapy Treatment Note PT-OP-A Visit Information Start: 05/10/20 13:35 Freq: Status: Active Protocol: Document 05/14/20 16:45 DCW (Rec: 05/14/20 17:41 DCW [id number]) Out-Patient Physical Therapy Visit Information Visit Information Visit Type Treatment Note Visit Start Time 16:45 Visit Stop Time 17:30 Total Visit Minutes 45 Visit Number 2 Number of MARKETING EDUCATION TEACHER Visits 0 Evaluation Information Evaluation Date 05/10/20 PT-OP-B Current Condition Start: 05/10/20 13:35 Freq: Status: Active Protocol: Document 05/10/20 11:15 DCW (Rec: 05/10/20 13:48 DCW [id number]) Current Condition History of Current Condition Onset Date 4-5 months Current Complaints Low back pain/stiffness later in the day History of Current Condition Pt is a 75 year old male well known to this clinic presenting with a 4-5 month history of worsening low back pain. Pt notes his pain worsens throughout the day, but improves with rest. Notes that after walking more than ~ 1/2 mile, it hurts so much that he is unable to stand up straight. He is typically really sore when he gets to bed at night, and if he has to get up in the middie of the night to use the bathroom, it 's really painful, but then by the time morning comes and he gets up, he feels much better. He reports that he was told a number of years ago that his x-rays showed his discs were fusing, but pt feels this pain is more due to core weakness. Prior Treatments and Tests Multiple PT visits secondary to TKA, LE weakness, shoulder pain Personal Factors Other Personal Factors That May Effect Psoriatic arthritis Therapy/Recovery PT-OP-C Subjective Start: 05/10/20 13:35 Freq: Status: Active Protocol: Document 05/14/20 16:45 DCW (Rec: 05/14/20 17:41 DCW [id number]) OP-PT Subjective Patient Comments Patient Comments I'm doing well today. PT-OP-F Manual Assessment Start: 05/10/20 13:35 Freq: Status: Active Protocol: Document 05/10/20 11:15 DCW (Rec: 05/10/20 14:00 DCW [id number]) Manual Assessments Soft Tissue Assessment Soft Tissue Mobility Assessment Severe tone along left-sided lumbar paraspinals, left QL, left adductors, and bilateral posterior hip Joint Mobility Assessment Joint Mobility Assessment Hypomobility of lumbar spine, both during movement PT-OP-K Range of Motion Start: 05/10/20 13:35 Freq: Status: Active Protocol: Document 05/10/20 11:15 DCW (Rec: 05/10/20 14:13 DCW [id number]) Lumbar Spine Range of Motion Lumbar Spine Active Degrees Testing Position Standing Flexion 30 Extension 15 Lateral Flexion Left 57 Lateral Flexion Right 58 ROM Limitations Soft Tissue Tightness,Bony Restriction,Pain Comments Lateral flexion measured in cm from finger tips to floor PT-OP-L Special Tests Start: 05/10/20 13:35 Freq: Status: Active Protocol: Document 05/10/20 11:15 DCW (Rec: 05/10/20 14:13 DCW [id number]) Special Tests Lumbar Spine Special Tests Torsion Test Results R QL pain with left rotation+ compression Vertical Spine Loading Test Results Negative A-P Shearing Test Results Negative Straight Leg Raise Test Results Hamstring stiffness R: 50?, L: 63? Standing Flexion Test Results Stiffness Slump Test Results Negative Passive Neck Flexion Test Results Negative PT-OP-M Strength Start: 05/10/20 13:35 Freq: Status: Active Protocol: Document 05/10/20 11:15 DCW (Rec: 05/10/20 14:13 DCW [id number]) Trunk Strength Trunk Manual Muscle Testing Core Stabilization Pt has difficulty dawson and holding TrA longer than 5 seconds, 3+/5 PT-OP-Q Treatments Start: 05/10/20 13:35 Freq: Status: Active Protocol: Document 05/14/20 16:45 DCW (Rec: 05/14/20 17:41 DCW [id number]) Gym Equipment Therapeutic Ball Low Trunk Rotation Exercise Details LTR Ball Size/Color Red - 55 cm Body Position Supine Resisted trunk rotation Exercise Details Resisted Trunk Rotation Ball Size/Color Green - 65 cm Lv 3 T-band Body Position Sitting Pelvic tilts/circles Exercise Details Pelvic tilts/circles Ball Size/Color Green - 65 cm Body Position Sitting Therapeutic Exercises Supine Exercises 2 Supine Exercise Name PPT /c TrA contraction - marching 1 Supine Exercise Name PPT /c TrA contraction PPT /c TrA - SLR Supine Exercise Name PPT /c TrA - SLR Side bilateral Standing Exercises 1 Standing Exercise Name Hip hiking Side bilateral Equipment Used 6 step, rail Manual Therapy Treatment Soft Tissue Mobilization 1 Body Location L lumbar paraspinals Mobilization Type Strumming,Sustained Pressure Intensity/Depth Moderate Body Position Sidelying Joint Mobilizations 1 Joint Lumbar vertebrae Direction P->A PT-OP-T Assessment and Plan Start: 05/10/20 13:35 Freq: Status: Active Protocol: Document 05/14/20 16:45 DCW (Rec: 05/14/20 17:41 DCW [id number]) Physical Therapy Assessment Impairments Impairments Activity Tolerance,Functional Activities,Functional Mobility ,Pain,Posture,ROM,Strength Goals Four Impairment Pt displays limited lumbar ROM Drywall Taper Helper Goal (LTG) Lumbar flexion and extension to 50? and 25?, respectively LTG Duration 07/10/20 Three Impairment Pt unable to tolerate working in his workshop in the PM due to back pain Drywall Taper Helper Goal (LTG) 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 to spend evenings in his workshop after a day of activity with no increased back pain or stiffness LTG Duration 07/10/20 Two Impairment Pt has severe back pain and is unable to stand straight after walking .5 mi Shelter Goal (LTG) Pt to ambulate 1.5 miles with no increase in back pain. LTG Duration 07/10/20 One Impairment Pt does not have appropriate home exercise program Short Term Goal (STG) Pt to be independent and compliant with an appropriate HEP STG Duration 06/09/20 Assessment Summary Assessment Pt tolerated treatment well today, struggled some with segmental movement of lumbar spine, mainly moving en bloc. Physical Therapy Plan Frequency and Duration Frequency of Treatment 2x/Week Duration of Treatment two months Plan of Care Start Date 05/10/20 Plan of Care End Date 07/10/20 Therapeutic Interventions Therapeutic Interventions Home Exercise Program,Joint Mobilizations,Manual Therapy, Patient/Caregiver Education, Self-Care/Home Management,Soft Tissue Mobilization, Therapeutic Activities, Therapeutic Exercises Modalities Cold Pack/Ice Massage,Electric Stimulation,Hot Packs, Ultrasound Next Visit Focus/Plan Next Note Type Treatment Note Next Visit Plan Core strengthening, STM, joint mobilizations
--- NOTE | 2020-05-17 12:43 | PT.OTN ---
Current Diagnoses Other chronic pain (05/17/20) Stiffness of other specified joint, not elsewhere classified (05/17/20) Low back pain (05/17/20) Physical Therapy Treatment Note PT-OP-A Visit Information Start: 05/10/20 13:35 Freq: Status: Active Protocol: Document 05/17/20 12:00 DCW (Rec: 05/17/20 12:43 DCW [id number]) Out-Patient Physical Therapy Visit Information Visit Information Visit Type Treatment Note Visit Start Time 12:00 Visit Stop Time 12:45 Total Visit Minutes 45 Visit Number 3 Number of NYLON HOT WIRE CUTTER Visits 0 Evaluation Information Evaluation Date 05/10/20 PT-OP-B Current Condition Start: 05/10/20 13:35 Freq: Status: Active Protocol: Document 05/10/20 11:15 DCW (Rec: 05/10/20 13:48 DCW [id number]) Current Condition History of Current Condition Onset Date 4-5 months Current Complaints Low back pain/stiffness later in the day History of Current Condition Pt is a 75 year old male well known to this clinic presenting with a 4-5 month history of worsening low back pain. Pt notes his pain worsens throughout the day, but improves with rest. Notes that after walking more than ~ 1/2 mile, it hurts so much that he is unable to stand up straight. He is typically really sore when he gets to bed at night, and if he has to get up in the middie of the night to use the bathroom, it 's really painful, but then by the time morning comes and he gets up, he feels much better. He reports that he was told a number of years ago that his x-rays showed his discs were fusing, but pt feels this pain is more due to core weakness. Prior Treatments and Tests Multiple PT visits secondary to TKA, LE weakness, shoulder pain Personal Factors Other Personal Factors That May Effect Psoriatic arthritis Therapy/Recovery PT-OP-C Subjective Start: 05/10/20 13:35 Freq: Status: Active Protocol: Document 05/17/20 12:00 DCW (Rec: 05/17/20 12:43 DCW [id number]) OP-PT Subjective Patient Comments Patient Comments I felt it for two days after last visit. PT-OP-F Manual Assessment Start: 05/10/20 13:35 Freq: Status: Active Protocol: Document 05/10/20 11:15 DCW (Rec: 05/10/20 14:00 DCW [id number]) Manual Assessments Soft Tissue Assessment Soft Tissue Mobility Assessment Severe tone along left-sided lumbar paraspinals, left QL, left adductors, and bilateral posterior hip Joint Mobility Assessment Joint Mobility Assessment Hypomobility of lumbar spine, both during movement PT-OP-K Range of Motion Start: 05/10/20 13:35 Freq: Status: Active Protocol: Document 05/10/20 11:15 DCW (Rec: 05/10/20 14:13 DCW [id number]) Lumbar Spine Range of Motion Lumbar Spine Active Degrees Testing Position Standing Flexion 30 Extension 15 Lateral Flexion Left 57 Lateral Flexion Right 58 ROM Limitations Soft Tissue Tightness,Bony Restriction,Pain Comments Lateral flexion measured in cm from finger tips to floor PT-OP-L Special Tests Start: 05/10/20 13:35 Freq: Status: Active Protocol: Document 05/10/20 11:15 DCW (Rec: 05/10/20 14:13 DCW [id number]) Special Tests Lumbar Spine Special Tests Torsion Test Results R QL pain with left rotation+ compression Vertical Spine Loading Test Results Negative A-P Shearing Test Results Negative Straight Leg Raise Test Results Hamstring stiffness R: 50?, L: 63? Standing Flexion Test Results Stiffness Slump Test Results Negative Passive Neck Flexion Test Results Negative PT-OP-M Strength Start: 05/10/20 13:35 Freq: Status: Active Protocol: Document 05/10/20 11:15 DCW (Rec: 05/10/20 14:13 DCW [id number]) Trunk Strength Trunk Manual Muscle Testing Core Stabilization Pt has difficulty dawson and holding TrA longer than 5 seconds, 3+/5 PT-OP-Q Treatments Start: 05/10/20 13:35 Freq: Status: Active Protocol: Document 05/17/20 12:00 DCW (Rec: 05/17/20 12:43 DCW [id number]) Gym Equipment Therapeutic Ball Low Trunk Rotation Exercise Details LTR Ball Size/Color Red - 55 cm Body Position Supine Resisted trunk rotation Exercise Details Resisted Trunk Rotation Ball Size/Color Green - 65 cm Lv 3 T-band Body Position Sitting Pelvic tilts/circles Exercise Details Pelvic tilts/circles Ball Size/Color Green - 65 cm Body Position Sitting Therapeutic Exercises Supine Exercises Bridging Supine Exercise Name Bridging /c and /s marching Comments Marching stopped d/t pain, cramping Standing Exercises 1 Standing Exercise Name Hip hiking Side bilateral Equipment Used 6 step, rail Manual Therapy Treatment Soft Tissue Mobilization 2 Body Location B Piriformis Mobilization Type Sustained Pressure Intensity/Depth Deep Body Position Sidelying 1 Body Location B lumbar paraspinals Mobilization Type Strumming,Sustained Pressure Intensity/Depth Moderate Body Position Sidelying Joint Mobilizations 1 Joint Lumbar vertebrae Direction P->A PT-OP-T Assessment and Plan Start: 05/10/20 13:35 Freq: Status: Active Protocol: Document 05/17/20 12:00 DCW (Rec: 05/17/20 12:43 DCW [id number]) Physical Therapy Assessment Impairments Impairments Activity Tolerance,Functional Activities,Functional Mobility ,Pain,Posture,ROM,Strength Goals Four Impairment Pt displays limited lumbar ROM Longterm Goal (LTG) Lumbar flexion and extension to 50? and 25?, respectively LTG Duration 07/10/20 Three Impairment Pt unable to tolerate working in his workshop in the PM due to back pain Longterm Goal (LTG) 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 to spend evenings in his workshop after a day of activity with no increased back pain or stiffness LTG Duration 07/10/20 Two Impairment Pt has severe back pain and is unable to stand straight after walking .5 mi Shook Splicer Goal (LTG) Pt to ambulate 1.5 miles with no increase in back pain. LTG Duration 07/10/20 One Impairment Pt does not have appropriate home exercise program Short Term Goal (STG) Pt to be independent and compliant with an appropriate HEP STG Duration 06/09/20 Assessment Summary Assessment Attempted to slightly decrease intensity due to discomfort after last treatment. Tolerated well. Physical Therapy Plan Frequency and Duration Frequency of Treatment 2x/Week Duration of Treatment two months Plan of Care Start Date 05/10/20 Plan of Care End Date 07/10/20 Therapeutic Interventions Therapeutic Interventions Home Exercise Program,Joint Mobilizations,Manual Therapy, Patient/Caregiver Education, Self-Care/Home Management,Soft Tissue Mobilization, Therapeutic Activities, Therapeutic Exercises Modalities Cold Pack/Ice Massage,Electric Stimulation,Hot Packs, Ultrasound Next Visit Focus/Plan Next Note Type Treatment Note Next Visit Plan Core strengthening, STM, joint mobilizations
--- NOTE | 2020-05-21 12:03 | PT.OTN ---
Current Diagnoses Other chronic pain (05/21/20) Stiffness of other specified joint, not elsewhere classified (05/21/20) Low back pain (05/21/20) Physical Therapy Treatment Note PT-OP-A Visit Information Start: 05/10/20 13:35 Freq: Status: Active Protocol: Document 05/21/20 11:15 DCW (Rec: 05/21/20 12:03 DCW [id number]) Out-Patient Physical Therapy Visit Information Visit Information Visit Type Treatment Note Visit Start Time 11:15 Visit Stop Time 12:00 Total Visit Minutes 45 Visit Number 4 Number of ELECTRONICS MECHANIC Visits 0 Evaluation Information Evaluation Date 05/10/20 PT-OP-B Current Condition Start: 05/10/20 13:35 Freq: Status: Active Protocol: Document 05/10/20 11:15 DCW (Rec: 05/10/20 13:48 DCW [id number]) Current Condition History of Current Condition Onset Date 4-5 months Current Complaints Low back pain/stiffness later in the day History of Current Condition Pt is a 75 year old male well known to this clinic presenting with a 4-5 month history of worsening low back pain. Pt notes his pain worsens throughout the day, but improves with rest. Notes that after walking more than ~ 1/2 mile, it hurts so much that he is unable to stand up straight. He is typically really sore when he gets to bed at night, and if he has to get up in the middie of the night to use the bathroom, it 's really painful, but then by the time morning comes and he gets up, he feels much better. He reports that he was told a number of years ago that his x-rays showed his discs were fusing, but pt feels this pain is more due to core weakness. Prior Treatments and Tests Multiple PT visits secondary to TKA, LE weakness, shoulder pain Personal Factors Other Personal Factors That May Effect Psoriatic arthritis Therapy/Recovery PT-OP-C Subjective Start: 05/10/20 13:35 Freq: Status: Active Protocol: Document 05/21/20 11:15 DCW (Rec: 05/21/20 12:03 DCW [id number]) OP-PT Subjective Patient Comments Patient Comments Pt notes everything feels pretty good today. Admits his legs are pretty tired today. PT-OP-F Manual Assessment Start: 05/10/20 13:35 Freq: Status: Active Protocol: Document 05/10/20 11:15 DCW (Rec: 05/10/20 14:00 DCW [id number]) Manual Assessments Soft Tissue Assessment Soft Tissue Mobility Assessment Severe tone along left-sided lumbar paraspinals, left QL, left adductors, and bilateral posterior hip Joint Mobility Assessment Joint Mobility Assessment Hypomobility of lumbar spine, both during movement PT-OP-K Range of Motion Start: 05/10/20 13:35 Freq: Status: Active Protocol: Document 05/10/20 11:15 DCW (Rec: 05/10/20 14:13 DCW [id number]) Lumbar Spine Range of Motion Lumbar Spine Active Degrees Testing Position Standing Flexion 30 Extension 15 Lateral Flexion Left 57 Lateral Flexion Right 58 ROM Limitations Soft Tissue Tightness,Bony Restriction,Pain Comments Lateral flexion measured in cm from finger tips to floor PT-OP-L Special Tests Start: 05/10/20 13:35 Freq: Status: Active Protocol: Document 05/10/20 11:15 DCW (Rec: 05/10/20 14:13 DCW [id number]) Special Tests Lumbar Spine Special Tests Torsion Test Results R QL pain with left rotation+ compression Vertical Spine Loading Test Results Negative A-P Shearing Test Results Negative Straight Leg Raise Test Results Hamstring stiffness R: 50?, L: 63? Standing Flexion Test Results Stiffness Slump Test Results Negative Passive Neck Flexion Test Results Negative PT-OP-M Strength Start: 05/10/20 13:35 Freq: Status: Active Protocol: Document 05/10/20 11:15 DCW (Rec: 05/10/20 14:13 DCW [id number]) Trunk Strength Trunk Manual Muscle Testing Core Stabilization Pt has difficulty dawson and holding TrA longer than 5 seconds, 3+/5 PT-OP-Q Treatments Start: 05/10/20 13:35 Freq: Status: Active Protocol: Document 05/21/20 11:15 DCW (Rec: 05/21/20 12:03 DCW [id number]) Gym Equipment Therapeutic Ball Low Trunk Rotation Exercise Details LTR Ball Size/Color Red - 55 cm Body Position Supine Resisted trunk rotation Exercise Details Resisted Trunk Rotation Ball Size/Color Green - 65 cm Lv 3 T-band Body Position Sitting Pelvic tilts/circles Exercise Details Pelvic tilts/circles Ball Size/Color Green - 65 cm Body Position Sitting Reverse Leg Press Exercise Details Hip/knee flexion vs T-band resistance /c feet on ball Ball Size/Color Red - 55 cm Lv 2 T-band Body Position Supine Therapeutic Exercises Supine Exercises Bridging Supine Exercise Name Bridging Sidelying Exercises 1 Sidelying Exercise Name Open Book/Reach and Roll Side bilateral Sitting Exercises 2 Sitting Exercise Name Lateral trunk flexion stretch 1 Sitting Exercise Name Forward trunk flexion stretch Standing Exercises 1 Standing Exercise Name Hip hiking Side bilateral Equipment Used 6 step, rail PT-OP-T Assessment and Plan Start: 05/10/20 13:35 Freq: Status: Active Protocol: Document 05/21/20 11:15 DCW (Rec: 05/21/20 12:03 DCW [id number]) Physical Therapy Assessment Impairments Impairments Activity Tolerance,Functional Activities,Functional Mobility ,Pain,Posture,ROM,Strength Goals Four Impairment Pt displays limited lumbar ROM Residential Goal (LTG) Lumbar flexion and extension to 50? and 25?, respectively LTG Duration 07/10/20 Three Impairment Pt unable to tolerate working in his workshop in the PM due to back pain Residential Goal (LTG) 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 to spend evenings in his workshop after a day of activity with no increased back pain or stiffness LTG Duration 07/10/20 Two Impairment Pt has severe back pain and is unable to stand straight after walking .5 mi Child Support Agent Goal (LTG) Pt to ambulate 1.5 miles with no increase in back pain. LTG Duration 07/10/20 One Impairment Pt does not have appropriate home exercise program Short Term Goal (STG) Pt to be independent and compliant with an appropriate HEP STG Duration 06/09/20 Assessment Summary Assessment Pt continues to have difficulty with segmental mobility of spine vs hips, but improves with stretching. Physical Therapy Plan Frequency and Duration Frequency of Treatment 2x/Week Duration of Treatment two months Plan of Care Start Date 05/10/20 Plan of Care End Date 07/10/20 Therapeutic Interventions Therapeutic Interventions Home Exercise Program,Joint Mobilizations,Manual Therapy, Patient/Caregiver Education, Self-Care/Home Management,Soft Tissue Mobilization, Therapeutic Activities, Therapeutic Exercises Modalities Cold Pack/Ice Massage,Electric Stimulation,Hot Packs, Ultrasound Next Visit Focus/Plan Next Note Type Treatment Note Next Visit Plan Core strengthening, STM, joint mobilizations
--- NOTE | 2020-05-29 11:15 | PT.OTN ---
Current Diagnoses Other chronic pain (05/29/20) Stiffness of other specified joint, not elsewhere classified (05/29/20) Low back pain (05/29/20) Physical Therapy Treatment Note PT-OP-A Visit Information Start: 05/10/20 13:35 Freq: Status: Active Protocol: Document 05/29/20 10:30 DCW (Rec: 05/29/20 11:15 DCW [id number]) Out-Patient Physical Therapy Visit Information Visit Information Visit Type Treatment Note Visit Start Time 10:30 Visit Stop Time 11:15 Total Visit Minutes 45 Visit Number 5 Number of WOOD LAST MAKER Visits 0 Evaluation Information Evaluation Date 05/10/20 PT-OP-B Current Condition Start: 05/10/20 13:35 Freq: Status: Active Protocol: Document 05/10/20 11:15 DCW (Rec: 05/10/20 13:48 DCW [id number]) Current Condition History of Current Condition Onset Date 4-5 months Current Complaints Low back pain/stiffness later in the day History of Current Condition Pt is a 75 year old male well known to this clinic presenting with a 4-5 month history of worsening low back pain. Pt notes his pain worsens throughout the day, but improves with rest. Notes that after walking more than ~ 1/2 mile, it hurts so much that he is unable to stand up straight. He is typically really sore when he gets to bed at night, and if he has to get up in the middie of the night to use the bathroom, it 's really painful, but then by the time morning comes and he gets up, he feels much better. He reports that he was told a number of years ago that his x-rays showed his discs were fusing, but pt feels this pain is more due to core weakness. Prior Treatments and Tests Multiple PT visits secondary to TKA, LE weakness, shoulder pain Personal Factors Other Personal Factors That May Effect Psoriatic arthritis Therapy/Recovery PT-OP-C Subjective Start: 05/10/20 13:35 Freq: Status: Active Protocol: Document 05/29/20 10:30 DCW (Rec: 05/29/20 11:15 DCW [id number]) OP-PT Subjective Patient Comments Patient Comments Pt reports his back pain is off and on. It's okay sometimes, and other times it is quite distressing. PT-OP-F Manual Assessment Start: 05/10/20 13:35 Freq: Status: Active Protocol: Document 05/10/20 11:15 DCW (Rec: 05/10/20 14:00 DCW [id number]) Manual Assessments Soft Tissue Assessment Soft Tissue Mobility Assessment Severe tone along left-sided lumbar paraspinals, left QL, left adductors, and bilateral posterior hip Joint Mobility Assessment Joint Mobility Assessment Hypomobility of lumbar spine, both during movement PT-OP-K Range of Motion Start: 05/10/20 13:35 Freq: Status: Active Protocol: Document 05/10/20 11:15 DCW (Rec: 05/10/20 14:13 DCW [id number]) Lumbar Spine Range of Motion Lumbar Spine Active Degrees Testing Position Standing Flexion 30 Extension 15 Lateral Flexion Left 57 Lateral Flexion Right 58 ROM Limitations Soft Tissue Tightness,Bony Restriction,Pain Comments Lateral flexion measured in cm from finger tips to floor PT-OP-L Special Tests Start: 05/10/20 13:35 Freq: Status: Active Protocol: Document 05/10/20 11:15 DCW (Rec: 05/10/20 14:13 DCW [id number]) Special Tests Lumbar Spine Special Tests Torsion Test Results R QL pain with left rotation+ compression Vertical Spine Loading Test Results Negative A-P Shearing Test Results Negative Straight Leg Raise Test Results Hamstring stiffness R: 50?, L: 63? Standing Flexion Test Results Stiffness Slump Test Results Negative Passive Neck Flexion Test Results Negative PT-OP-M Strength Start: 05/10/20 13:35 Freq: Status: Active Protocol: Document 05/10/20 11:15 DCW (Rec: 05/10/20 14:13 DCW [id number]) Trunk Strength Trunk Manual Muscle Testing Core Stabilization Pt has difficulty dawson and holding TrA longer than 5 seconds, 3+/5 PT-OP-Q Treatments Start: 05/10/20 13:35 Freq: Status: Active Protocol: Document 05/29/20 10:30 DCW (Rec: 05/29/20 11:15 DCW [id number]) Gym Equipment Therapeutic Ball Low Trunk Rotation Exercise Details LTR Ball Size/Color Red - 55 cm Body Position Supine Resisted trunk rotation Exercise Details Resisted Trunk Rotation Ball Size/Color Green - 65 cm Lv 3 T-band Body Position Sitting Pelvic tilts/circles Exercise Details Pelvic tilts/circles Ball Size/Color Green - 65 cm Body Position Sitting Comments Use mirror for feedback Reverse Leg Press Exercise Details Hip/knee flexion vs T-band resistance /c feet on ball Ball Size/Color Red - 55 cm Lv 2 T-band Body Position Supine Therapeutic Exercises Sidelying Exercises 1 Sidelying Exercise Name Open Book/Reach and Roll Side bilateral Manual Therapy Treatment Soft Tissue Mobilization 2 Body Location B Piriformis Mobilization Type Sustained Pressure Intensity/Depth Deep Body Position Sidelying 1 Body Location B lumbar paraspinals Mobilization Type Strumming,Sustained Pressure Intensity/Depth Moderate Body Position Sidelying Joint Mobilizations 1 Joint Lumbar vertebrae Direction P->A PT-OP-T Assessment and Plan Start: 05/10/20 13:35 Freq: Status: Active Protocol: Document 05/29/20 10:30 DCW (Rec: 05/29/20 11:15 DCW [id number]) Physical Therapy Assessment Impairments Impairments Activity Tolerance,Functional Activities,Functional Mobility ,Pain,Posture,ROM,Strength Goals Four Impairment Pt displays limited lumbar ROM Shelter Goal (LTG) Lumbar flexion and extension to 50? and 25?, respectively LTG Duration 07/10/20 Three Impairment Pt unable to tolerate working in his workshop in the PM due to back pain Shelter Goal (LTG) 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 to spend evenings in his workshop after a day of activity with no increased back pain or stiffness LTG Duration 07/10/20 Two Impairment Pt has severe back pain and is unable to stand straight after walking .5 mi Siebel Consultant Goal (LTG) Pt to ambulate 1.5 miles with no increase in back pain. LTG Duration 07/10/20 One Impairment Pt does not have appropriate home exercise program Short Term Goal (STG) Pt to be independent and compliant with an appropriate HEP STG Duration 06/09/20 Assessment Summary Assessment Pt showing improvement with segmental mobility today, did very well when using mirror for feedback. Physical Therapy Plan Frequency and Duration Frequency of Treatment 2x/Week Duration of Treatment two months Plan of Care Start Date 05/10/20 Plan of Care End Date 07/10/20 Therapeutic Interventions Therapeutic Interventions Home Exercise Program,Joint Mobilizations,Manual Therapy, Patient/Caregiver Education, Self-Care/Home Management,Soft Tissue Mobilization, Therapeutic Activities, Therapeutic Exercises Modalities Cold Pack/Ice Massage,Electric Stimulation,Hot Packs, Ultrasound Next Visit Focus/Plan Next Note Type Treatment Note Next Visit Plan Core strengthening, STM, joint mobilizations
--- NOTE | 2020-06-05 10:31 | PT.OTN ---
Current Diagnoses Other chronic pain (06/05/20) Stiffness of other specified joint, not elsewhere classified (06/05/20) Low back pain (06/05/20) Physical Therapy Treatment Note PT-OP-A Visit Information Start: 05/10/20 13:35 Freq: Status: Active Protocol: Document 06/05/20 09:45 DCW (Rec: 06/05/20 10:31 DCW [id number]) Out-Patient Physical Therapy Visit Information Visit Information Visit Type Treatment Note Visit Start Time 09:45 Visit Stop Time 10:30 Total Visit Minutes 45 Visit Number 6 Number of RADIOLOGY SERVICES MANAGER Visits 0 Evaluation Information Evaluation Date 05/10/20 PT-OP-B Current Condition Start: 05/10/20 13:35 Freq: Status: Active Protocol: Document 05/10/20 11:15 DCW (Rec: 05/10/20 13:48 DCW [id number]) Current Condition History of Current Condition Onset Date 4-5 months Current Complaints Low back pain/stiffness later in the day History of Current Condition Pt is a 75 year old male well known to this clinic presenting with a 4-5 month history of worsening low back pain. Pt notes his pain worsens throughout the day, but improves with rest. Notes that after walking more than ~ 1/2 mile, it hurts so much that he is unable to stand up straight. He is typically really sore when he gets to bed at night, and if he has to get up in the middie of the night to use the bathroom, it 's really painful, but then by the time morning comes and he gets up, he feels much better. He reports that he was told a number of years ago that his x-rays showed his discs were fusing, but pt feels this pain is more due to core weakness. Prior Treatments and Tests Multiple PT visits secondary to TKA, LE weakness, shoulder pain Personal Factors Other Personal Factors That May Effect Psoriatic arthritis Therapy/Recovery PT-OP-C Subjective Start: 05/10/20 13:35 Freq: Status: Active Protocol: Document 06/05/20 09:45 DCW (Rec: 06/05/20 10:31 DCW [id number]) OP-PT Subjective Patient Comments Patient Comments Pt notes he is doing well today. I'm feeling quite good this morning. PT-OP-F Manual Assessment Start: 05/10/20 13:35 Freq: Status: Active Protocol: Document 05/10/20 11:15 DCW (Rec: 05/10/20 14:00 DCW [id number]) Manual Assessments Soft Tissue Assessment Soft Tissue Mobility Assessment Severe tone along left-sided lumbar paraspinals, left QL, left adductors, and bilateral posterior hip Joint Mobility Assessment Joint Mobility Assessment Hypomobility of lumbar spine, both during movement PT-OP-K Range of Motion Start: 05/10/20 13:35 Freq: Status: Active Protocol: Document 05/10/20 11:15 DCW (Rec: 05/10/20 14:13 DCW [id number]) Lumbar Spine Range of Motion Lumbar Spine Active Degrees Testing Position Standing Flexion 30 Extension 15 Lateral Flexion Left 57 Lateral Flexion Right 58 ROM Limitations Soft Tissue Tightness,Bony Restriction,Pain Comments Lateral flexion measured in cm from finger tips to floor PT-OP-L Special Tests Start: 05/10/20 13:35 Freq: Status: Active Protocol: Document 05/10/20 11:15 DCW (Rec: 05/10/20 14:13 DCW [id number]) Special Tests Lumbar Spine Special Tests Torsion Test Results R QL pain with left rotation+ compression Vertical Spine Loading Test Results Negative A-P Shearing Test Results Negative Straight Leg Raise Test Results Hamstring stiffness R: 50?, L: 63? Standing Flexion Test Results Stiffness Slump Test Results Negative Passive Neck Flexion Test Results Negative PT-OP-M Strength Start: 05/10/20 13:35 Freq: Status: Active Protocol: Document 05/10/20 11:15 DCW (Rec: 05/10/20 14:13 DCW [id number]) Trunk Strength Trunk Manual Muscle Testing Core Stabilization Pt has difficulty dawson and holding TrA longer than 5 seconds, 3+/5 PT-OP-Q Treatments Start: 05/10/20 13:35 Freq: Status: Active Protocol: Document 06/05/20 09:45 DCW (Rec: 06/05/20 10:31 DCW [id number]) Gym Equipment Therapeutic Ball Low Trunk Rotation Exercise Details LTR Ball Size/Color Red - 55 cm Body Position Supine Resisted trunk rotation Exercise Details Resisted Trunk Rotation Ball Size/Color Green - 65 cm Lv 3 T-band Body Position Sitting Pelvic tilts/circles Exercise Details Pelvic tilts/circles Ball Size/Color Green - 65 cm Body Position Sitting Comments Use mirror for feedback Therapeutic Exercises Sidelying Exercises 1 Sidelying Exercise Name Open Book/Reach and Roll Side bilateral Reverse Clamshells Sidelying Exercise Name Reverse Clamshell Side bilateral Clamshells Sidelying Exercise Name Clamshell Side bilateral Manual Therapy Treatment Soft Tissue Mobilization 2 Body Location B Piriformis Mobilization Type Sustained Pressure Intensity/Depth Deep Body Position Sidelying 1 Body Location B lumbar paraspinals Mobilization Type Strumming,Sustained Pressure Intensity/Depth Moderate Body Position Sidelying Joint Mobilizations 1 Joint Lumbar vertebrae Direction P->A PT-OP-T Assessment and Plan Start: 05/10/20 13:35 Freq: Status: Active Protocol: Document 06/05/20 09:45 DCW (Rec: 06/05/20 10:31 DCW [id number]) Physical Therapy Assessment Impairments Impairments Activity Tolerance,Functional Activities,Functional Mobility ,Pain,Posture,ROM,Strength Goals Four Impairment Pt displays limited lumbar ROM Jail Goal (LTG) Lumbar flexion and extension to 50? 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 LTG Duration 07/10/20 One Impairment Pt does not have appropriate home exercise program Short Term Goal (STG) Pt to be independent and compliant with an appropriate HEP STG Duration 06/09/20 Assessment Summary Assessment Pt did very well today. Feeling much more mobile and less sore today. Pt does note he had a testosterone injection recently, which always seems to make him feel better, so he is not optimistic that this improvement will last, but is happy with how he feels right now. Physical Therapy Plan Frequency and Duration Frequency of Treatment 2x/Week Duration of Treatment two months Plan of Care Start Date 05/10/20 Plan of Care End Date 07/10/20 Therapeutic Interventions Therapeutic Interventions Home Exercise Program,Joint Mobilizations,Manual Therapy, Patient/Caregiver Education, Self-Care/Home Management,Soft Tissue Mobilization, Therapeutic Activities, Therapeutic Exercises Modalities Cold Pack/Ice Massage,Electric Stimulation,Hot Packs, Ultrasound Next Visit Focus/Plan Next Note Type Treatment Note Next Visit Plan Core strengthening, STM, joint mobilizations
--- NOTE | 2020-06-07 10:31 | PT.OTN ---
Current Diagnoses Other chronic pain (06/07/20) Stiffness of other specified joint, not elsewhere classified (06/07/20) Low back pain (06/07/20) Physical Therapy Treatment Note PT-OP-A Visit Information Start: 05/10/20 13:35 Freq: Status: Active Protocol: Document 06/07/20 09:45 DCW (Rec: 06/07/20 10:31 DCW [id number]) Out-Patient Physical Therapy Visit Information Visit Information Visit Type Treatment Note Visit Start Time 09:45 Visit Stop Time 10:30 Total Visit Minutes 45 Visit Number 7 Number of CONTAINER REPAIRER Visits 0 Evaluation Information Evaluation Date 05/10/20 PT-OP-B Current Condition Start: 05/10/20 13:35 Freq: Status: Active Protocol: Document 05/10/20 11:15 DCW (Rec: 05/10/20 13:48 DCW [id number]) Current Condition History of Current Condition Onset Date 4-5 months Current Complaints Low back pain/stiffness later in the day History of Current Condition Pt is a 75 year old male well known to this clinic presenting with a 4-5 month history of worsening low back pain. Pt notes his pain worsens throughout the day, but improves with rest. Notes that after walking more than ~ 1/2 mile, it hurts so much that he is unable to stand up straight. He is typically really sore when he gets to bed at night, and if he has to get up in the middie of the night to use the bathroom, it 's really painful, but then by the time morning comes and he gets up, he feels much better. He reports that he was told a number of years ago that his x-rays showed his discs were fusing, but pt feels this pain is more due to core weakness. 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 PT-OP-F Manual Assessment Start: 05/10/20 13:35 Freq: Status: Active Protocol: Document 05/10/20 11:15 DCW (Rec: 05/10/20 14:00 DCW [id number]) Manual Assessments Soft Tissue Assessment Soft Tissue Mobility Assessment Severe tone along left-sided lumbar paraspinals, left QL, left adductors, and bilateral posterior hip Joint Mobility Assessment Joint Mobility Assessment Hypomobility of lumbar spine, both during movement PT-OP-K Range of Motion Start: 05/10/20 13:35 Freq: Status: Active Protocol: Document 05/10/20 11:15 DCW (Rec: 05/10/20 14:13 DCW [id number]) Lumbar Spine Range of Motion Lumbar Spine Active Degrees Testing Position Standing Flexion 30 Extension 15 Lateral Flexion Left 57 Lateral Flexion Right 58 ROM Limitations Soft Tissue Tightness,Bony Restriction,Pain Comments Lateral flexion measured in cm from finger tips to floor PT-OP-L Special Tests Start: 05/10/20 13:35 Freq: Status: Active Protocol: Document 05/10/20 11:15 DCW (Rec: 05/10/20 14:13 DCW [id number]) Special Tests Lumbar Spine Special Tests Torsion Test Results R QL pain with left rotation+ compression Vertical Spine Loading Test Results Negative A-P Shearing Test Results Negative Straight Leg Raise Test Results Hamstring stiffness R: 50?, L: 63? Standing Flexion Test Results Stiffness Slump Test Results Negative Passive Neck Flexion Test Results Negative PT-OP-M Strength Start: 05/10/20 13:35 Freq: Status: Active Protocol: Document 05/10/20 11:15 DCW (Rec: 05/10/20 14:13 DCW [id number]) Trunk Strength Trunk Manual Muscle Testing Core Stabilization Pt has difficulty dawson and holding TrA longer than 5 seconds, 3+/5 PT-OP-Q Treatments Start: 05/10/20 13:35 Freq: Status: Active Protocol: Document 06/07/20 09:45 DCW (Rec: 06/07/20 10:31 DCW [id number]) Gym Equipment Therapeutic Ball Low Trunk Rotation Exercise Details LTR Ball Size/Color Red - 55 cm Body Position Supine Resisted trunk rotation Exercise Details Resisted Trunk Rotation Ball Size/Color Green - 65 cm Lv 3 T-band Body Position Sitting Pelvic tilts/circles Exercise Details Pelvic tilts/circles Ball Size/Color Green - 65 cm Body Position Sitting Comments Use mirror for feedback Therapeutic Exercises Sidelying Exercises 1 Sidelying Exercise Name Open Book/Reach and Roll Side bilateral Reverse Clamshells Sidelying Exercise Name Reverse Clamshell Side bilateral Clamshells Sidelying Exercise Name Clamshell Side bilateral Manual Therapy Treatment Soft Tissue Mobilization 2 Body Location B Piriformis Mobilization Type Sustained Pressure Intensity/Depth Deep Body Position Sidelying 1 Body Location B lumbar paraspinals Mobilization Type Strumming,Sustained Pressure Intensity/Depth Moderate Body Position Sidelying Joint Mobilizations 1 Joint Lumbar vertebrae Direction P->A PT-OP-T Assessment and Plan Start: 05/10/20 13:35 Freq: Status: Active Protocol: Document 06/07/20 09:45 DCW (Rec: 06/07/20 10:31 DCW [id number]) Physical Therapy Assessment Impairments Impairments Activity Tolerance,Functional Activities,Functional Mobility ,Pain,Posture,ROM,Strength Goals Four Impairment Pt displays limited lumbar ROM Senior Living Goal (LTG) Lumbar flexion and extension to 50? and 25?, respectively LTG Duration 07/10/20 Three Impairment Pt unable to tolerate working in his workshop in the PM due to back pain Senior Living Goal (LTG) 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 to spend evenings in his workshop after a day of activity with no increased back pain or stiffness LTG Duration 07/10/20 Two Impairment Pt has severe back pain and is unable to stand straight after walking .5 mi Senior Living Goal (LTG) Pt to ambulate 1.5 miles with no increase in back pain. LTG Duration 07/10/20 One Impairment Pt does not have appropriate home exercise program Short Term Goal (STG) Pt to be independent and compliant with an appropriate HEP STG Duration 06/09/20 Assessment Summary Assessment Pt again doing very well, experiencing less overall pain and improved mobility. Physical Therapy Plan Frequency and Duration Frequency of Treatment 2x/Week Duration of Treatment two months Plan of Care Start Date 05/10/20 Plan of Care End Date 07/10/20 Therapeutic Interventions Therapeutic Interventions Home Exercise Program,Joint Mobilizations,Manual Therapy, Patient/Caregiver Education, Self-Care/Home Management,Soft Tissue Mobilization, Therapeutic Activities, Therapeutic Exercises Modalities Cold Pack/Ice Massage,Electric Stimulation,Hot Packs, Ultrasound Next Visit Focus/Plan Next Note Type Treatment Note Next Visit Plan Core strengthening, STM, joint mobilizations
--- NOTE | 2020-06-18 17:38 | PT.OTN ---
Current Diagnoses Other chronic pain (06/18/20) Stiffness of other specified joint, not elsewhere classified (06/18/20) Low back pain (06/18/20) Physical Therapy Treatment Note PT-OP-A Visit Information Start: 05/10/20 13:35 Freq: Status: Active Protocol: Document 06/18/20 16:50 DCW (Rec: 06/18/20 17:38 DCW [id number]) Out-Patient Physical Therapy Visit Information Visit Information Visit Type Treatment Note Visit Start Time 16:50 Visit Stop Time 17:30 Total Visit Minutes 40 Visit Number 8 Number of SENIOR SALES OPERATIONS ANALYST Visits 0 Evaluation Information Evaluation Date 05/10/20 PT-OP-B Current Condition Start: 05/10/20 13:35 Freq: Status: Active Protocol: Document 05/10/20 11:15 DCW (Rec: 05/10/20 13:48 DCW [id number]) Current Condition History of Current Condition Onset Date 4-5 months Current Complaints Low back pain/stiffness later in the day History of Current Condition Pt is a 75 year old male well known to this clinic presenting with a 4-5 month history of worsening low back pain. Pt notes his pain worsens throughout the day, but improves with rest. Notes that after walking more than ~ 1/2 mile, it hurts so much that he is unable to stand up straight. He is typically really sore when he gets to bed at night, and if he has to get up in the middie of the night to use the bathroom, it 's really painful, but then by the time morning comes and he gets up, he feels much better. He reports that he was told a number of years ago that his x-rays showed his discs were fusing, but pt feels this pain is more due to core weakness. Prior Treatments and Tests Multiple PT visits secondary to TKA, LE weakness, shoulder pain Personal Factors Other Personal Factors That May Effect Psoriatic arthritis Therapy/Recovery PT-OP-C Subjective Start: 05/10/20 13:35 Freq: Status: Active Protocol: Document 06/18/20 16:50 DCW (Rec: 06/18/20 17:38 DCW [id number]) OP-PT Subjective Patient Comments Patient Comments Pt reports his back is feeling good today, admits the day before yesterday it was really quite bad. PT-OP-F Manual Assessment Start: 05/10/20 13:35 Freq: Status: Active Protocol: Document 05/10/20 11:15 DCW (Rec: 05/10/20 14:00 DCW [id number]) Manual Assessments Soft Tissue Assessment Soft Tissue Mobility Assessment Severe tone along left-sided lumbar paraspinals, left QL, left adductors, and bilateral posterior hip Joint Mobility Assessment Joint Mobility Assessment Hypomobility of lumbar spine, both during movement PT-OP-K Range of Motion Start: 05/10/20 13:35 Freq: Status: Active Protocol: Document 05/10/20 11:15 DCW (Rec: 05/10/20 14:13 DCW [id number]) Lumbar Spine Range of Motion Lumbar Spine Active Degrees Testing Position Standing Flexion 30 Extension 15 Lateral Flexion Left 57 Lateral Flexion Right 58 ROM Limitations Soft Tissue Tightness,Bony Restriction,Pain Comments Lateral flexion measured in cm from finger tips to floor PT-OP-L Special Tests Start: 05/10/20 13:35 Freq: Status: Active Protocol: Document 05/10/20 11:15 DCW (Rec: 05/10/20 14:13 DCW [id number]) Special Tests Lumbar Spine Special Tests Torsion Test Results R QL pain with left rotation+ compression Vertical Spine Loading Test Results Negative A-P Shearing Test Results Negative Straight Leg Raise Test Results Hamstring stiffness R: 50?, L: 63? Standing Flexion Test Results Stiffness Slump Test Results Negative Passive Neck Flexion Test Results Negative PT-OP-M Strength Start: 05/10/20 13:35 Freq: Status: Active Protocol: Document 05/10/20 11:15 DCW (Rec: 05/10/20 14:13 DCW [id number]) Trunk Strength Trunk Manual Muscle Testing Core Stabilization Pt has difficulty dawson and holding TrA longer than 5 seconds, 3+/5 PT-OP-Q Treatments Start: 05/10/20 13:35 Freq: Status: Active Protocol: Document 06/18/20 16:50 DCW (Rec: 06/18/20 17:38 DCW [id number]) Gym Equipment Therapeutic Ball Low Trunk Rotation Exercise Details LTR Ball Size/Color Red - 55 cm Body Position Supine Resisted trunk rotation Exercise Details Resisted Trunk Rotation Ball Size/Color Green - 65 cm Lv 3 T-band Body Position Sitting Pelvic tilts/circles Exercise Details Pelvic tilts/circles Ball Size/Color Green - 65 cm Body Position Sitting Comments Use mirror for feedback Manual Therapy Treatment Soft Tissue Mobilization 2 Body Location B Piriformis Mobilization Type Sustained Pressure Intensity/Depth Deep Body Position Sidelying 1 Body Location B lumbar paraspinals Mobilization Type Strumming,Sustained Pressure Intensity/Depth Moderate Body Position Sidelying Joint Mobilizations 1 Joint Lumbar vertebrae Direction P->A PT-OP-T Assessment and Plan Start: 05/10/20 13:35 Freq: Status: Active Protocol: Document 06/18/20 16:50 DCW (Rec: 06/18/20 17:38 DCW [id number]) Physical Therapy Assessment Impairments Impairments Activity Tolerance,Functional Activities,Functional Mobility ,Pain,Posture,ROM,Strength Goals Four Impairment Pt displays limited lumbar ROM Form Setter Supervisor Goal (LTG) Lumbar flexion and extension to 50? 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 LTG Duration 07/10/20 One Impairment Pt does not have appropriate home exercise program Short Term Goal (STG) Pt to be independent and compliant with an appropriate HEP STG Duration 06/09/20 Assessment Summary Assessment Pt experienced increased pain upon lying down on the table today, but overall reported he was doing well. Physical Therapy Plan Frequency and Duration Frequency of Treatment 2x/Week Duration of Treatment two months Plan of Care Start Date 05/10/20 Plan of Care End Date 07/10/20 Therapeutic Interventions Therapeutic Interventions Home Exercise Program,Joint Mobilizations,Manual Therapy, Patient/Caregiver Education, Self-Care/Home Management,Soft Tissue Mobilization, Therapeutic Activities, Therapeutic Exercises Modalities Cold Pack/Ice Massage,Electric Stimulation,Hot Packs, Ultrasound Next Visit Focus/Plan Next Note Type Treatment Note Next Visit Plan Core strengthening, STM, joint mobilizations
--- NOTE | 2020-06-21 16:04 | PT.OTN ---
Current Diagnoses Other chronic pain (06/21/20) Stiffness of other specified joint, not elsewhere classified (06/21/20) Low back pain (06/21/20) Physical Therapy Treatment Note PT-OP-A Visit Information Start: 05/10/20 13:35 Freq: Status: Active Protocol: Document 06/21/20 15:15 DCW (Rec: 06/21/20 16:04 DCW [id number]) Out-Patient Physical Therapy Visit Information Visit Information Visit Type Treatment Note Visit Start Time 15:15 Visit Stop Time 16:00 Total Visit Minutes 45 Visit Number 9 Number of CV/CVN CV TSC SYSTEM OPERATOR Visits 0 Evaluation Information Evaluation Date 05/10/20 PT-OP-B Current Condition Start: 05/10/20 13:35 Freq: Status: Active Protocol: Document 05/10/20 11:15 DCW (Rec: 05/10/20 13:48 DCW [id number]) Current Condition History of Current Condition Onset Date 4-5 months Current Complaints Low back pain/stiffness later in the day History of Current Condition Pt is a 75 year old male well known to this clinic presenting with a 4-5 month history of worsening low back pain. Pt notes his pain worsens throughout the day, but improves with rest. Notes that after walking more than ~ 1/2 mile, it hurts so much that he is unable to stand up straight. He is typically really sore when he gets to bed at night, and if he has to get up in the middie of the night to use the bathroom, it 's really painful, but then by the time morning comes and he gets up, he feels much better. He reports that he was told a number of years ago that his x-rays showed his discs were fusing, but pt feels this pain is more due to core weakness. Prior Treatments and Tests Multiple PT visits secondary to TKA, LE weakness, shoulder pain Personal Factors Other Personal Factors That May Effect Psoriatic arthritis Therapy/Recovery PT-OP-C Subjective Start: 05/10/20 13:35 Freq: Status: Active Protocol: Document 06/21/20 15:15 DCW (Rec: 06/21/20 16:04 DCW [id number]) OP-PT Subjective Patient Comments Patient Comments Pt notes his back is not so bad today, yesterday it was fairly painful. PT-OP-F Manual Assessment Start: 05/10/20 13:35 Freq: Status: Active Protocol: Document 05/10/20 11:15 DCW (Rec: 05/10/20 14:00 DCW [id number]) Manual Assessments Soft Tissue Assessment Soft Tissue Mobility Assessment Severe tone along left-sided lumbar paraspinals, left QL, left adductors, and bilateral posterior hip Joint Mobility Assessment Joint Mobility Assessment Hypomobility of lumbar spine, both during movement PT-OP-K Range of Motion Start: 05/10/20 13:35 Freq: Status: Active Protocol: Document 05/10/20 11:15 DCW (Rec: 05/10/20 14:13 DCW [id number]) Lumbar Spine Range of Motion Lumbar Spine Active Degrees Testing Position Standing Flexion 30 Extension 15 Lateral Flexion Left 57 Lateral Flexion Right 58 ROM Limitations Soft Tissue Tightness,Bony Restriction,Pain Comments Lateral flexion measured in cm from finger tips to floor PT-OP-L Special Tests Start: 05/10/20 13:35 Freq: Status: Active Protocol: Document 05/10/20 11:15 DCW (Rec: 05/10/20 14:13 DCW [id number]) Special Tests Lumbar Spine Special Tests Torsion Test Results R QL pain with left rotation+ compression Vertical Spine Loading Test Results Negative A-P Shearing Test Results Negative Straight Leg Raise Test Results Hamstring stiffness R: 50?, L: 63? Standing Flexion Test Results Stiffness Slump Test Results Negative Passive Neck Flexion Test Results Negative PT-OP-M Strength Start: 05/10/20 13:35 Freq: Status: Active Protocol: Document 05/10/20 11:15 DCW (Rec: 05/10/20 14:13 DCW [id number]) Trunk Strength Trunk Manual Muscle Testing Core Stabilization Pt has difficulty dawson and holding TrA longer than 5 seconds, 3+/5 PT-OP-Q Treatments Start: 05/10/20 13:35 Freq: Status: Active Protocol: Document 06/21/20 15:15 DCW (Rec: 06/21/20 16:04 DCW [id number]) Gym Equipment Therapeutic Ball Low Trunk Rotation Exercise Details LTR Ball Size/Color Red - 55 cm Body Position Supine Resisted trunk rotation Exercise Details Resisted Trunk Rotation Ball Size/Color Green - 65 cm Lv 3 T-band Body Position Sitting Pelvic tilts/circles Exercise Details Pelvic tilts/circles Ball Size/Color Green - 65 cm Body Position Sitting Comments Use mirror for feedback Therapeutic Exercises Supine Exercises PPT /c TrA - SLR Supine Exercise Name PPT /c TrA - SLR Side bilateral Bridging Supine Exercise Name Bridging Manual Therapy Treatment Soft Tissue Mobilization 2 Body Location B Piriformis Mobilization Type Sustained Pressure Intensity/Depth Deep Body Position Sidelying 1 Body Location B lumbar paraspinals Mobilization Type Strumming,Sustained Pressure Intensity/Depth Moderate Body Position Sidelying Joint Mobilizations 1 Joint Lumbar vertebrae Direction P->A PT-OP-T Assessment and Plan Start: 05/10/20 13:35 Freq: Status: Active Protocol: Document 06/21/20 15:15 DCW (Rec: 06/21/20 16:04 DCW [id number]) Physical Therapy Assessment Impairments Impairments Activity Tolerance,Functional Activities,Functional Mobility ,Pain,Posture,ROM,Strength Goals Four Impairment Pt displays limited lumbar ROM Mcc Goal (LTG) Lumbar flexion and extension to 50? and 25?, respectively LTG Duration 07/10/20 Three Impairment Pt unable to tolerate working in his workshop in the PM due to back pain Rotary Drum Dyer Goal (LTG) 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 to spend evenings in his workshop after a day of activity with no increased back pain or stiffness LTG Duration 07/10/20 Two Impairment Pt has severe back pain and is unable to stand straight after walking .5 mi Rotary Drum Dyer Goal (LTG) Pt to ambulate 1.5 miles with no increase in back pain. LTG Duration 07/10/20 One Impairment Pt does not have appropriate home exercise program Short Term Goal (STG) Pt to be independent and compliant with an appropriate HEP STG Duration 06/09/20 Assessment Summary Assessment Pt overall doing well today, continues to show more mobility with segmentation of lumbar spine. Physical Therapy Plan Frequency and Duration Frequency of Treatment 2x/Week Duration of Treatment two months Plan of Care Start Date 05/10/20 Plan of Care End Date 07/10/20 Therapeutic Interventions Therapeutic Interventions Home Exercise Program,Joint Mobilizations,Manual Therapy, Patient/Caregiver Education, Self-Care/Home Management,Soft Tissue Mobilization, Therapeutic Activities, Therapeutic Exercises Modalities Cold Pack/Ice Massage,Electric Stimulation,Hot Packs, Ultrasound Next Visit Focus/Plan Next Note Type Treatment Note Next Visit Plan Core strengthening, STM, joint mobilizations
--- NOTE | 2020-06-25 16:01 | PT.OTN ---
Current Diagnoses Other chronic pain (06/25/20) Stiffness of other specified joint, not elsewhere classified (06/25/20) Low back pain (06/25/20) Physical Therapy Treatment Note PT-OP-A Visit Information Start: 05/10/20 13:35 Freq: Status: Active Protocol: Document 06/25/20 15:15 DCW (Rec: 06/25/20 16:00 DCW [id number]) Out-Patient Physical Therapy Visit Information Visit Information Visit Type Treatment Note Visit Note 10th visit Visit Start Time 15:15 Visit Stop Time 16:00 Total Visit Minutes 45 Visit Number 10 Number of FRUIT OR NUT FARMWORKER Visits 0 Evaluation Information Evaluation Date 05/10/20 PT-OP-B Current Condition Start: 05/10/20 13:35 Freq: Status: Active Protocol: Document 05/10/20 11:15 DCW (Rec: 05/10/20 13:48 DCW [id number]) Current Condition History of Current Condition Onset Date 4-5 months Current Complaints Low back pain/stiffness later in the day History of Current Condition Pt is a 75 year old male well known to this clinic presenting with a 4-5 month history of worsening low back pain. Pt notes his pain worsens throughout the day, but improves with rest. Notes that after walking more than ~ 1/2 mile, it hurts so much that he is unable to stand up straight. He is typically really sore when he gets to bed at night, and if he has to get up in the middie of the night to use the bathroom, it 's really painful, but then by the time morning comes and he gets up, he feels much better. He reports that he was told a number of years ago that his x-rays showed his discs were fusing, but pt feels this pain is more due to core weakness. Prior Treatments and Tests Multiple PT visits secondary to TKA, LE weakness, shoulder pain Personal Factors Other Personal Factors That May Effect Psoriatic arthritis Therapy/Recovery PT-OP-C Subjective Start: 05/10/20 13:35 Freq: Status: Active Protocol: Document 06/25/20 15:15 DCW (Rec: 06/25/20 16:00 DCW [id number]) OP-PT Subjective Patient Comments Patient Comments Pt notes his back has really been hurting today for some reason. PT-OP-F Manual Assessment Start: 05/10/20 13:35 Freq: Status: Active Protocol: Document 05/10/20 11:15 DCW (Rec: 05/10/20 14:00 DCW [id number]) Manual Assessments Soft Tissue Assessment Soft Tissue Mobility Assessment Severe tone along left-sided lumbar paraspinals, left QL, left adductors, and bilateral posterior hip Joint Mobility Assessment Joint Mobility Assessment Hypomobility of lumbar spine, both during movement PT-OP-K Range of Motion Start: 05/10/20 13:35 Freq: Status: Active Protocol: Document 05/10/20 11:15 DCW (Rec: 05/10/20 14:13 DCW [id number]) Lumbar Spine Range of Motion Lumbar Spine Active Degrees Testing Position Standing Flexion 30 Extension 15 Lateral Flexion Left 57 Lateral Flexion Right 58 ROM Limitations Soft Tissue Tightness,Bony Restriction,Pain Comments Lateral flexion measured in cm from finger tips to floor PT-OP-L Special Tests Start: 05/10/20 13:35 Freq: Status: Active Protocol: Document 05/10/20 11:15 DCW (Rec: 05/10/20 14:13 DCW [id number]) Special Tests Lumbar Spine Special Tests Torsion Test Results R QL pain with left rotation+ compression Vertical Spine Loading Test Results Negative A-P Shearing Test Results Negative Straight Leg Raise Test Results Hamstring stiffness R: 50?, L: 63? Standing Flexion Test Results Stiffness Slump Test Results Negative Passive Neck Flexion Test Results Negative PT-OP-M Strength Start: 05/10/20 13:35 Freq: Status: Active Protocol: Document 05/10/20 11:15 DCW (Rec: 05/10/20 14:13 DCW [id number]) Trunk Strength Trunk Manual Muscle Testing Core Stabilization Pt has difficulty dawson and holding TrA longer than 5 seconds, 3+/5 PT-OP-Q Treatments Start: 05/10/20 13:35 Freq: Status: Active Protocol: Document 06/25/20 15:15 DCW (Rec: 06/25/20 16:00 DCW [id number]) Gym Equipment Therapeutic Ball Low Trunk Rotation Exercise Details LTR Ball Size/Color Red - 55 cm Body Position Supine Resisted trunk rotation Exercise Details Resisted Trunk Rotation Ball Size/Color Green - 65 cm Lv 3 T-band Body Position Sitting Pelvic tilts/circles Exercise Details Pelvic tilts/circles Ball Size/Color Green - 65 cm Body Position Sitting Comments Use mirror for feedback Therapeutic Exercises Sidelying Exercises 1 Sidelying Exercise Name Open Book/Reach and Roll Side bilateral Reverse Clamshells Sidelying Exercise Name Reverse Clamshell Side bilateral Clamshells Sidelying Exercise Name Clamshell Side bilateral Manual Therapy Treatment Soft Tissue Mobilization 2 Body Location B Piriformis Mobilization Type Sustained Pressure Intensity/Depth Deep Body Position Sidelying 1 Body Location B lumbar paraspinals Mobilization Type Strumming,Sustained Pressure Intensity/Depth Moderate Body Position Sidelying Joint Mobilizations 1 Joint Lumbar vertebrae Direction P->A PT-OP-T Assessment and Plan Start: 05/10/20 13:35 Freq: Status: Active Protocol: Document 06/25/20 15:15 DCW (Rec: 06/25/20 16:00 DCW [id number]) Physical Therapy Assessment Impairments Impairments Activity Tolerance,Functional Activities,Functional Mobility ,Pain,Posture,ROM,Strength Goals Four Impairment Pt displays limited lumbar ROM Account Classification Clerk Goal (LTG) Lumbar flexion and extension to 50? and 25?, respectively LTG Duration 07/10/20 Three Impairment Pt unable to tolerate working in his workshop in the PM due to back pain Account Classification Clerk Goal (LTG) 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 to spend evenings in his workshop after a day of activity with no increased back pain or stiffness LTG Duration 07/10/20 Two Impairment Pt has severe back pain and is unable to stand straight after walking .5 mi Snf Goal (LTG) Pt to ambulate 1.5 miles with no increase in back pain. LTG Duration 07/10/20 One Impairment Pt does not have appropriate home exercise program Short Term Goal (STG) Pt to be independent and compliant with an appropriate HEP STG Duration 06/09/20 Assessment Summary Assessment Pt a little more sore today, having increased difficulty with bed mobility secondary to back pain. Physical Therapy Plan Frequency and Duration Frequency of Treatment 2x/Week Duration of Treatment two months Plan of Care Start Date 05/10/20 Plan of Care End Date 07/10/20 Therapeutic Interventions Therapeutic Interventions Home Exercise Program,Joint Mobilizations,Manual Therapy, Patient/Caregiver Education, Self-Care/Home Management,Soft Tissue Mobilization, Therapeutic Activities, Therapeutic Exercises Modalities Cold Pack/Ice Massage,Electric Stimulation,Hot Packs, Ultrasound Next Visit Focus/Plan Next Note Type Treatment Note Next Visit Plan Core strengthening, STM, joint mobilizations
--- NOTE | 2020-07-02 11:12 | PT.OTN ---
Current Diagnoses Other chronic pain (07/02/20) Stiffness of other specified joint, not elsewhere classified (07/02/20) Low back pain (07/02/20) Physical Therapy Treatment Note PT-OP-A Visit Information Start: 05/10/20 13:35 Freq: Status: Active Protocol: Document 07/02/20 10:30 DCW (Rec: 07/02/20 11:11 DCW [id number]) Out-Patient Physical Therapy Visit Information Visit Information Visit Type Treatment Note Visit Start Time 10:30 Visit Stop Time 11:15 Total Visit Minutes 45 Visit Number 11 Number of CONVENTION WORKER Visits 0 Evaluation Information Evaluation Date 05/10/20 PT-OP-B Current Condition Start: 05/10/20 13:35 Freq: Status: Active Protocol: Document 05/10/20 11:15 DCW (Rec: 05/10/20 13:48 DCW [id number]) Current Condition History of Current Condition Onset Date 4-5 months Current Complaints Low back pain/stiffness later in the day History of Current Condition Pt is a 75 year old male well known to this clinic presenting with a 4-5 month history of worsening low back pain. Pt notes his pain worsens throughout the day, but improves with rest. Notes that after walking more than ~ 1/2 mile, it hurts so much that he is unable to stand up straight. He is typically really sore when he gets to bed at night, and if he has to get up in the middie of the night to use the bathroom, it 's really painful, but then by the time morning comes and he gets up, he feels much better. He reports that he was told a number of years ago that his x-rays showed his discs were fusing, but pt feels this pain is more due to core weakness. Prior Treatments and Tests Multiple PT visits secondary to TKA, LE weakness, shoulder pain Personal Factors Other Personal Factors That May Effect Psoriatic arthritis Therapy/Recovery PT-OP-C Subjective Start: 05/10/20 13:35 Freq: Status: Active Protocol: Document 07/02/20 10:30 DCW (Rec: 07/02/20 11:11 DCW [id number]) OP-PT Subjective Patient Comments Patient Comments Pt reports he got a good night 's sleep last night, so he is feeling pretty good. PT-OP-F Manual Assessment Start: 05/10/20 13:35 Freq: Status: Active Protocol: Document 05/10/20 11:15 DCW (Rec: 05/10/20 14:00 DCW [id number]) Manual Assessments Soft Tissue Assessment Soft Tissue Mobility Assessment Severe tone along left-sided lumbar paraspinals, left QL, left adductors, and bilateral posterior hip Joint Mobility Assessment Joint Mobility Assessment Hypomobility of lumbar spine, both during movement PT-OP-K Range of Motion Start: 05/10/20 13:35 Freq: Status: Active Protocol: Document 05/10/20 11:15 DCW (Rec: 05/10/20 14:13 DCW [id number]) Lumbar Spine Range of Motion Lumbar Spine Active Degrees Testing Position Standing Flexion 30 Extension 15 Lateral Flexion Left 57 Lateral Flexion Right 58 ROM Limitations Soft Tissue Tightness,Bony Restriction,Pain Comments Lateral flexion measured in cm from finger tips to floor PT-OP-L Special Tests Start: 05/10/20 13:35 Freq: Status: Active Protocol: Document 05/10/20 11:15 DCW (Rec: 05/10/20 14:13 DCW [id number]) Special Tests Lumbar Spine Special Tests Torsion Test Results R QL pain with left rotation+ compression Vertical Spine Loading Test Results Negative A-P Shearing Test Results Negative Straight Leg Raise Test Results Hamstring stiffness R: 50?, L: 63? Standing Flexion Test Results Stiffness Slump Test Results Negative Passive Neck Flexion Test Results Negative PT-OP-M Strength Start: 05/10/20 13:35 Freq: Status: Active Protocol: Document 05/10/20 11:15 DCW (Rec: 05/10/20 14:13 DCW [id number]) Trunk Strength Trunk Manual Muscle Testing Core Stabilization Pt has difficulty dawson and holding TrA longer than 5 seconds, 3+/5 PT-OP-Q Treatments Start: 05/10/20 13:35 Freq: Status: Active Protocol: Document 07/02/20 10:30 DCW (Rec: 07/02/20 11:11 DCW [id number]) Gym Equipment Therapeutic Ball Low Trunk Rotation Exercise Details LTR Ball Size/Color Red - 55 cm Body Position Supine Resisted trunk rotation Exercise Details Resisted Trunk Rotation Ball Size/Color Green - 65 cm Lv 3 T-band Body Position Sitting Pelvic tilts/circles Exercise Details Pelvic tilts/circles Ball Size/Color Green - 65 cm Body Position Sitting Comments Use mirror for feedback Therapeutic Exercises Sidelying Exercises 1 Sidelying Exercise Name Open Book/Reach and Roll Side bilateral Reverse Clamshells Sidelying Exercise Name Reverse Clamshell Side bilateral Clamshells Sidelying Exercise Name Clamshell Side bilateral Manual Therapy Treatment Soft Tissue Mobilization 2 Body Location B Piriformis Mobilization Type Sustained Pressure Intensity/Depth Deep Body Position Sidelying 1 Body Location B lumbar paraspinals Mobilization Type Strumming,Sustained Pressure Intensity/Depth Moderate Body Position Sidelying Joint Mobilizations 1 Joint Lumbar vertebrae Direction P->A PT-OP-T Assessment and Plan Start: 05/10/20 13:35 Freq: Status: Active Protocol: Document 07/02/20 10:30 DCW (Rec: 07/02/20 11:11 DCW [id number]) Physical Therapy Assessment Impairments Impairments Activity Tolerance,Functional Activities,Functional Mobility ,Pain,Posture,ROM,Strength Goals Four Impairment Pt displays limited lumbar ROM Custodial Goal (LTG) Lumbar flexion and extension to 50? 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 LTG Duration 07/10/20 One Impairment Pt does not have appropriate home exercise program Short Term Goal (STG) Pt to be independent and compliant with an appropriate HEP STG Duration 06/09/20 Assessment Summary Assessment Mobility better today, not having as much difficulty with pain and stiffness today. Physical Therapy Plan Frequency and Duration Frequency of Treatment 2x/Week Duration of Treatment two months Plan of Care Start Date 05/10/20 Plan of Care End Date 07/10/20 Therapeutic Interventions Therapeutic Interventions Home Exercise Program,Joint Mobilizations,Manual Therapy, Patient/Caregiver Education, Self-Care/Home Management,Soft Tissue Mobilization, Therapeutic Activities, Therapeutic Exercises Modalities Cold Pack/Ice Massage,Electric Stimulation,Hot Packs, Ultrasound Next Visit Focus/Plan Next Note Type Treatment Note Next Visit Plan Core strengthening, STM, joint mobilizations
--- NOTE | 2020-07-04 17:29 | PT.OTN ---
Current Diagnoses Other chronic pain (07/04/20) Stiffness of other specified joint, not elsewhere classified (07/04/20) Low back pain (07/04/20) Physical Therapy Treatment Note PT-OP-A Visit Information Start: 05/10/20 13:35 Freq: Status: Active Protocol: Document 07/04/20 16:45 DCW (Rec: 07/04/20 17:29 DCW [id number]) Out-Patient Physical Therapy Visit Information Visit Information Visit Type Treatment Note Visit Start Time 16:45 Visit Stop Time 17:30 Total Visit Minutes 45 Visit Number 12 Number of COLON AND RECTAL SURGEON Visits 0 Evaluation Information Evaluation Date 05/10/20 PT-OP-B Current Condition Start: 05/10/20 13:35 Freq: Status: Active Protocol: Document 05/10/20 11:15 DCW (Rec: 05/10/20 13:48 DCW [id number]) Current Condition History of Current Condition Onset Date 4-5 months Current Complaints Low back pain/stiffness later in the day History of Current Condition Pt is a 75 year old male well known to this clinic presenting with a 4-5 month history of worsening low back pain. Pt notes his pain worsens throughout the day, but improves with rest. Notes that after walking more than ~ 1/2 mile, it hurts so much that he is unable to stand up straight. He is typically really sore when he gets to bed at night, and if he has to get up in the middie of the night to use the bathroom, it 's really painful, but then by the time morning comes and he gets up, he feels much better. He reports that he was told a number of years ago that his x-rays showed his discs were fusing, but pt feels this pain is more due to core weakness. Prior Treatments and Tests Multiple PT visits secondary to TKA, LE weakness, shoulder pain Personal Factors Other Personal Factors That May Effect Psoriatic arthritis Therapy/Recovery PT-OP-C Subjective Start: 05/10/20 13:35 Freq: Status: Active Protocol: Document 07/04/20 16:45 DCW (Rec: 07/04/20 17:29 DCW [id number]) OP-PT Subjective Patient Comments Patient Comments My back was pretty bad today and yesterday. I bent over in my shop and really felt like an old man. PT-OP-F Manual Assessment Start: 05/10/20 13:35 Freq: Status: Active Protocol: Document 05/10/20 11:15 DCW (Rec: 05/10/20 14:00 DCW [id number]) Manual Assessments Soft Tissue Assessment Soft Tissue Mobility Assessment Severe tone along left-sided lumbar paraspinals, left QL, left adductors, and bilateral posterior hip Joint Mobility Assessment Joint Mobility Assessment Hypomobility of lumbar spine, both during movement PT-OP-K Range of Motion Start: 05/10/20 13:35 Freq: Status: Active Protocol: Document 05/10/20 11:15 DCW (Rec: 05/10/20 14:13 DCW [id number]) Lumbar Spine Range of Motion Lumbar Spine Active Degrees Testing Position Standing Flexion 30 Extension 15 Lateral Flexion Left 57 Lateral Flexion Right 58 ROM Limitations Soft Tissue Tightness,Bony Restriction,Pain Comments Lateral flexion measured in cm from finger tips to floor PT-OP-L Special Tests Start: 05/10/20 13:35 Freq: Status: Active Protocol: Document 05/10/20 11:15 DCW (Rec: 05/10/20 14:13 DCW [id number]) Special Tests Lumbar Spine Special Tests Torsion Test Results R QL pain with left rotation+ compression Vertical Spine Loading Test Results Negative A-P Shearing Test Results Negative Straight Leg Raise Test Results Hamstring stiffness R: 50?, L: 63? Standing Flexion Test Results Stiffness Slump Test Results Negative Passive Neck Flexion Test Results Negative PT-OP-M Strength Start: 05/10/20 13:35 Freq: Status: Active Protocol: Document 05/10/20 11:15 DCW (Rec: 05/10/20 14:13 DCW [id number]) Trunk Strength Trunk Manual Muscle Testing Core Stabilization Pt has difficulty dawson and holding TrA longer than 5 seconds, 3+/5 PT-OP-Q Treatments Start: 05/10/20 13:35 Freq: Status: Active Protocol: Document 07/04/20 16:45 DCW (Rec: 07/04/20 17:29 DCW [id number]) Gym Equipment Therapeutic Ball Low Trunk Rotation Exercise Details LTR Ball Size/Color Red - 55 cm Body Position Supine Resisted trunk rotation Exercise Details Resisted Trunk Rotation Ball Size/Color Green - 65 cm Lv 3 T-band Body Position Sitting Pelvic tilts/circles Exercise Details Pelvic tilts/circles Ball Size/Color Green - 65 cm Body Position Sitting Comments Use mirror for feedback Manual Therapy Treatment Soft Tissue Mobilization 2 Body Location B Piriformis Mobilization Type Sustained Pressure Intensity/Depth Deep Body Position Sidelying 1 Body Location B lumbar paraspinals Mobilization Type Strumming,Sustained Pressure Intensity/Depth Moderate Body Position Sidelying Joint Mobilizations 1 Joint Lumbar vertebrae Direction P->A PT-OP-T Assessment and Plan Start: 05/10/20 13:35 Freq: Status: Active Protocol: Document 07/04/20 16:45 DCW (Rec: 07/04/20 17:29 DCW [id number]) Physical Therapy Assessment Impairments Impairments Activity Tolerance,Functional Activities,Functional Mobility ,Pain,Posture,ROM,Strength Goals Four Impairment Pt displays limited lumbar ROM Food Technician Goal (LTG) Lumbar flexion and extension to 50? and 25?, respectively LTG Duration 07/10/20 Three Impairment Pt unable to tolerate working in his workshop in the PM due to back pain Usp Goal (LTG) 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 to spend evenings in his workshop after a day of activity with no increased back pain or stiffness LTG Duration 07/10/20 Two Impairment Pt has severe back pain and is unable to stand straight after walking .5 mi Usp Goal (LTG) Pt to ambulate 1.5 miles with no increase in back pain. LTG Duration 07/10/20 One Impairment Pt does not have appropriate home exercise program Short Term Goal (STG) Pt to be independent and compliant with an appropriate HEP STG Duration 06/09/20 Assessment Summary Assessment Increased time spent on STM today due to pt's complaints of increased pain, felt much better following treatment. Physical Therapy Plan Frequency and Duration Frequency of Treatment 2x/Week Duration of Treatment two months Plan of Care Start Date 05/10/20 Plan of Care End Date 07/10/20 Therapeutic Interventions Therapeutic Interventions Home Exercise Program,Joint Mobilizations,Manual Therapy, Patient/Caregiver Education, Self-Care/Home Management,Soft Tissue Mobilization, Therapeutic Activities, Therapeutic Exercises Modalities Cold Pack/Ice Massage,Electric Stimulation,Hot Packs, Ultrasound Next Visit Focus/Plan Next Note Type Treatment Note Next Visit Plan Core strengthening, STM, joint mobilizations
--- NOTE | 2020-07-09 11:16 | PT.OTN ---
Current Diagnoses Other chronic pain (07/09/20) Stiffness of other specified joint, not elsewhere classified (07/09/20) Low back pain (07/09/20) Physical Therapy Treatment Note PT-OP-A Visit Information Start: 05/10/20 13:35 Freq: Status: Active Protocol: Document 07/09/20 10:30 DCW (Rec: 07/09/20 11:16 DCW [id number]) Out-Patient Physical Therapy Visit Information Visit Information Visit Type Progress Note Visit Start Time 10:30 Visit Stop Time 11:15 Total Visit Minutes 45 Visit Number 13 Number of QUESTIONED DOCUMENTS EXAMINER Visits 0 Evaluation Information Evaluation Date 05/10/20 PT-OP-B Current Condition Start: 05/10/20 13:35 Freq: Status: Active Protocol: Document 05/10/20 11:15 DCW (Rec: 05/10/20 13:48 DCW [id number]) Current Condition History of Current Condition Onset Date 4-5 months Current Complaints Low back pain/stiffness later in the day History of Current Condition Pt is a 75 year old male well known to this clinic presenting with a 4-5 month history of worsening low back pain. Pt notes his pain worsens throughout the day, but improves with rest. Notes that after walking more than ~ 1/2 mile, it hurts so much that he is unable to stand up straight. He is typically really sore when he gets to bed at night, and if he has to get up in the middie of the night to use the bathroom, it 's really painful, but then by the time morning comes and he gets up, he feels much better. He reports that he was told a number of years ago that his x-rays showed his discs were fusing, but pt feels this pain is more due to core weakness. Prior Treatments and Tests Multiple PT visits secondary to TKA, LE weakness, shoulder pain Personal Factors Other Personal Factors That May Effect Psoriatic arthritis Therapy/Recovery PT-OP-C Subjective Start: 05/10/20 13:35 Freq: Status: Active Protocol: Document 07/09/20 10:30 DCW (Rec: 07/09/20 11:16 DCW [id number]) OP-PT Subjective Patient Comments Patient Comments Pt notes he has been doing pretty well recently. PT-OP-F Manual Assessment Start: 05/10/20 13:35 Freq: Status: Active Protocol: Document 07/09/20 10:30 DCW (Rec: 07/09/20 10:46 DCW [id number]) Manual Assessments Soft Tissue Assessment Soft Tissue Mobility Assessment Moderate tone along left-sided lumbar paraspinals, left QL, left adductors, and bilateral posterior hip Joint Mobility Assessment Joint Mobility Assessment Hypomobility of lumbar spine, both during movement and with palpation PT-OP-K Range of Motion Start: 05/10/20 13:35 Freq: Status: Active Protocol: Document 07/09/20 10:30 DCW (Rec: 07/09/20 10:46 DCW [id number]) Lumbar Spine Range of Motion Lumbar Spine Active Degrees Testing Position Standing Flexion 45 Extension 15 Lateral Flexion Left 56 Lateral Flexion Right 58 ROM Limitations Soft Tissue Tightness,Bony Restriction,Pain Comments Lateral flexion measured in cm from finger tips to floor PT-OP-L Special Tests Start: 05/10/20 13:35 Freq: Status: Active Protocol: Document 07/09/20 10:30 DCW (Rec: 07/09/20 10:46 DCW [id number]) Special Tests Lumbar Spine Special Tests Torsion Test Results Negative Vertical Spine Loading Test Results Negative A-P Shearing Test Results Negative Straight Leg Raise Test Results Hamstring stiffness R: 64?, L: 66? Standing Flexion Test Results Stiffness Slump Test Results Negative Passive Neck Flexion Test Results Negative PT-OP-M Strength Start: 05/10/20 13:35 Freq: Status: Active Protocol: Document 07/09/20 10:30 DCW (Rec: 07/09/20 10:46 DCW [id number]) Trunk Strength Trunk Manual Muscle Testing Core Stabilization Pt improved ability with dawson and holding TrA, 4 -/5 PT-OP-Q Treatments Start: 05/10/20 13:35 Freq: Status: Active Protocol: Document 07/09/20 10:30 DCW (Rec: 07/09/20 11:16 DCW [id number]) Gym Equipment Therapeutic Ball Low Trunk Rotation Exercise Details LTR Ball Size/Color Red - 55 cm Body Position Supine Therapeutic Exercises Sidelying Exercises 1 Sidelying Exercise Name Open Book/Reach and Roll Side bilateral Manual Therapy Treatment Soft Tissue Mobilization 2 Body Location B Piriformis Mobilization Type Sustained Pressure Intensity/Depth Deep Body Position Sidelying 1 Body Location B lumbar paraspinals Mobilization Type Strumming,Sustained Pressure Intensity/Depth Moderate Body Position Sidelying Joint Mobilizations 1 Joint Lumbar vertebrae Direction P->A PT-OP-T Assessment and Plan Start: 05/10/20 13:35 Freq: Status: Active Protocol: Document 07/09/20 10:30 DCW (Rec: 07/09/20 11:16 DCW [id number]) Physical Therapy Assessment Impairments Impairments Activity Tolerance,Functional Activities,Functional Mobility ,Pain,Posture,ROM,Strength Goals Four Impairment Pt displays limited lumbar ROM Model Maker Apprentice Goal (LTG) Lumbar flexion and extension to 50? and 25?, respectively LTG Duration 07/10/20 Three Impairment Pt unable to tolerate working in his workshop in the PM due to back pain Mcc Goal (LTG) 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 to spend evenings in his workshop after a day of activity with no increased back pain or stiffness LTG Duration 07/10/20 Two Impairment Pt has severe back pain and is unable to stand straight after walking .5 mi Mcc Goal (LTG) Pt to ambulate 1.5 miles with no increase in back pain. LTG Duration 07/10/20 One Impairment Pt does not have appropriate home exercise program Short Term Goal (STG) Pt to be independent and compliant with an appropriate HEP STG Duration 06/09/20 Assessment Summary Assessment Pt has made some good improvement with lumbar ROM, specifically flexion and lateral flexion, decreased tone through low back, would still benefit from skilled therapy focusing on STM and improved lumbar mobility. Physical Therapy Plan Frequency and Duration Frequency of Treatment 2x/Week Duration of Treatment two months Plan of Care Start Date 07/09/20 Plan of Care End Date 09/06/20 Therapeutic Interventions Therapeutic Interventions Home Exercise Program,Joint Mobilizations,Manual Therapy, Patient/Caregiver Education, Self-Care/Home Management,Soft Tissue Mobilization, Therapeutic Activities, Therapeutic Exercises Modalities Cold Pack/Ice Massage,Electric Stimulation,Hot Packs, Ultrasound Next Visit Focus/Plan Next Note Type Treatment Note Next Visit Plan Core strengthening, STM, joint mobilizations
--- NOTE | 2020-07-09 11:16 | PT.OPPOC ---
Physical, Occupational & Speech Therapy At [facility] Current Diagnoses Other chronic pain (07/09/20) Stiffness of other specified joint, not elsewhere classified (07/09/20) Low back pain (07/09/20) Visit Care Team Role Provider Type Kavita Aranda MD Primary Care Provider Non-Staff Specialty: Internal Medicine Address: [id number] [place] [address], [address], [place], [address] Email: Franck Ugarte MD Attending Provider Non-Staff Referring Provider Specialty: Internal Medicine Address: [id number] [place] [address], [address], [place], [address] Email: Plan Of Care PT-OP-T Assessment and Plan Start: 05/10/20 13:35 Freq: Status: Active Protocol: Document 07/09/20 10:30 DCW (Rec: 07/09/20 11:16 DCW [id number]) Physical Therapy Assessment Impairments Impairments Activity Tolerance,Functional Activities,Functional Mobility ,Pain,Posture,ROM,Strength Goals Four Impairment Pt displays limited lumbar ROM Nurse Ob Goal (LTG) Lumbar flexion and extension to 50? and 25?, respectively LTG Duration 07/10/20 Three Impairment Pt unable to tolerate working in his workshop in the PM due to back pain Nurse Ob Goal (LTG) 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 to spend evenings in his workshop after a day of activity with no increased back pain or stiffness LTG Duration 07/10/20 Two Impairment Pt has severe back pain and is unable to stand straight after walking .5 mi Nurse Ob Goal (LTG) Pt to ambulate 1.5 miles with no increase in back pain. LTG Duration 07/10/20 One Impairment Pt does not have appropriate home exercise program Short Term Goal (STG) Pt to be independent and compliant with an appropriate HEP STG Duration 06/09/20 Assessment Summary Assessment Pt has made some good improvement with lumbar ROM, specifically flexion and lateral flexion, decreased tone through low back, would still benefit from skilled therapy focusing on STM and improved lumbar mobility. Physical Therapy Plan Frequency and Duration Frequency of Treatment 2x/Week Duration of Treatment two months Plan of Care Start Date 07/09/20 Plan of Care End Date 09/06/20 Therapeutic Interventions Therapeutic Interventions Home Exercise Program,Joint Mobilizations,Manual Therapy, Patient/Caregiver Education, Self-Care/Home Management,Soft Tissue Mobilization, Therapeutic Activities, Therapeutic Exercises Modalities Cold Pack/Ice Massage,Electric Stimulation,Hot Packs, Ultrasound Next Visit Focus/Plan Next Note Type Treatment Note Next Visit Plan Core strengthening, STM, joint mobilizations Plan of Care Dates Plan of Care Start Date 07/09/20 Plan of Care End Date 09/06/20 Electronically Signed by: Evaristo Carvalho, PT 07/09/20 9820 Please Sign and Return: I have reviewed this Plan of Care and certify that the skilled therapy services above are required to meet the patient?s needs. Physician Signature Date Printed Name and Credentials Clinical Instructor Signature Printed Name and Credentials
--- NOTE | 2020-07-11 11:21 | PT.OTN ---
Current Diagnoses Other chronic pain (07/11/20) Stiffness of other specified joint, not elsewhere classified (07/11/20) Low back pain (07/11/20) Physical Therapy Treatment Note PT-OP-A Visit Information Start: 05/10/20 13:35 Freq: Status: Active Protocol: Document 07/11/20 10:32 DCW (Rec: 07/11/20 11:21 DCW [id number]) Out-Patient Physical Therapy Visit Information Visit Information Visit Type Treatment Note Visit Start Time 10:32 Visit Stop Time 11:15 Total Visit Minutes 43 Visit Number 14 Number of BATTERY CONTAINER FINISHING HAND Visits 0 Evaluation Information Evaluation Date 05/10/20 PT-OP-B Current Condition Start: 05/10/20 13:35 Freq: Status: Active Protocol: Document 05/10/20 11:15 DCW (Rec: 05/10/20 13:48 DCW [id number]) Current Condition History of Current Condition Onset Date 4-5 months Current Complaints Low back pain/stiffness later in the day History of Current Condition Pt is a 75 year old male well known to this clinic presenting with a 4-5 month history of worsening low back pain. Pt notes his pain worsens throughout the day, but improves with rest. Notes that after walking more than ~ 1/2 mile, it hurts so much that he is unable to stand up straight. He is typically really sore when he gets to bed at night, and if he has to get up in the middie of the night to use the bathroom, it 's really painful, but then by the time morning comes and he gets up, he feels much better. He reports that he was told a number of years ago that his x-rays showed his discs were fusing, but pt feels this pain is more due to core weakness. Prior Treatments and Tests Multiple PT visits secondary to TKA, LE weakness, shoulder pain Personal Factors Other Personal Factors That May Effect Psoriatic arthritis Therapy/Recovery PT-OP-C Subjective Start: 05/10/20 13:35 Freq: Status: Active Protocol: Document 07/11/20 10:32 DCW (Rec: 07/11/20 11:21 DCW [id number]) OP-PT Subjective Patient Comments Patient Comments Pt reports he is feeling pretty good today, he got to sleep in this morning, which always helps. PT-OP-F Manual Assessment Start: 05/10/20 13:35 Freq: Status: Active Protocol: Document 07/09/20 10:30 DCW (Rec: 07/09/20 10:46 DCW [id number]) Manual Assessments Soft Tissue Assessment Soft Tissue Mobility Assessment Moderate tone along left-sided lumbar paraspinals, left QL, left adductors, and bilateral posterior hip Joint Mobility Assessment Joint Mobility Assessment Hypomobility of lumbar spine, both during movement and with palpation PT-OP-K Range of Motion Start: 05/10/20 13:35 Freq: Status: Active Protocol: Document 07/09/20 10:30 DCW (Rec: 07/09/20 10:46 DCW [id number]) Lumbar Spine Range of Motion Lumbar Spine Active Degrees Testing Position Standing Flexion 45 Extension 15 Lateral Flexion Left 56 Lateral Flexion Right 58 ROM Limitations Soft Tissue Tightness,Bony Restriction,Pain Comments Lateral flexion measured in cm from finger tips to floor PT-OP-L Special Tests Start: 05/10/20 13:35 Freq: Status: Active Protocol: Document 07/09/20 10:30 DCW (Rec: 07/09/20 10:46 DCW [id number]) Special Tests Lumbar Spine Special Tests Torsion Test Results Negative Vertical Spine Loading Test Results Negative A-P Shearing Test Results Negative Straight Leg Raise Test Results Hamstring stiffness R: 64?, L: 66? Standing Flexion Test Results Stiffness Slump Test Results Negative Passive Neck Flexion Test Results Negative PT-OP-M Strength Start: 05/10/20 13:35 Freq: Status: Active Protocol: Document 07/09/20 10:30 DCW (Rec: 07/09/20 10:46 DCW [id number]) Trunk Strength Trunk Manual Muscle Testing Core Stabilization Pt improved ability with dwason and holding TrA, 4 -/5 PT-OP-Q Treatments Start: 05/10/20 13:35 Freq: Status: Active Protocol: Document 07/11/20 10:32 DCW (Rec: 07/11/20 11:21 DCW [id number]) Gym Equipment Therapeutic Ball Low Trunk Rotation Exercise Details LTR Ball Size/Color Red - 55 cm Body Position Supine Resisted trunk rotation Exercise Details Resisted Trunk Rotation Ball Size/Color Green - 65 cm Lv 3 T-band Body Position Sitting Pelvic tilts/circles Exercise Details Pelvic tilts/circles Ball Size/Color Green - 65 cm Body Position Sitting Comments Use mirror for feedback PT-OP-T Assessment and Plan Start: 05/10/20 13:35 Freq: Status: Active Protocol: Document 07/11/20 10:32 DCW (Rec: 07/11/20 11:21 DCW [id number]) Physical Therapy Assessment Impairments Impairments Activity Tolerance,Functional Activities,Functional Mobility ,Pain,Posture,ROM,Strength Goals Four Impairment Pt displays limited lumbar ROM Group Home Goal (LTG) Lumbar flexion and extension to 50? and 25?, respectively LTG Duration 09/06/20 Three Impairment Pt unable to tolerate working in his workshop in the PM due to back pain Networker Goal (LTG) 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 to spend evenings in his workshop after a day of activity with no increased back pain or stiffness LTG Duration 09/06/20 Two Impairment Pt has severe back pain and is unable to stand straight after walking .5 mi Networker Goal (LTG) Pt to ambulate 1.5 miles with no increase in back pain. LTG Duration 09/06/20 One Impairment Pt does not have appropriate home exercise program Short Term Goal (STG) Pt to be independent and compliant with an appropriate HEP STG Duration 08/09/20 Assessment Summary Assessment Pt doing well today, much easier time with transfers and bed mobility on the plinth. Physical Therapy Plan Frequency and Duration Frequency of Treatment 2x/Week Duration of Treatment two months Plan of Care Start Date 07/09/20 Plan of Care End Date 09/06/20 Therapeutic Interventions Therapeutic Interventions Home Exercise Program,Joint Mobilizations,Manual Therapy, Patient/Caregiver Education, Self-Care/Home Management,Soft Tissue Mobilization, Therapeutic Activities, Therapeutic Exercises Modalities Cold Pack/Ice Massage,Electric Stimulation,Hot Packs, Ultrasound Next Visit Focus/Plan Next Note Type Treatment Note Next Visit Plan Core strengthening, STM, joint mobilizations
--- NOTE | 2020-07-16 11:17 | PT.OTN ---
Current Diagnoses Other chronic pain (07/16/20) Stiffness of other specified joint, not elsewhere classified (07/16/20) Low back pain (07/16/20) Physical Therapy Treatment Note PT-OP-A Visit Information Start: 05/10/20 13:35 Freq: Status: Active Protocol: Document 07/16/20 10:30 DCW (Rec: 07/16/20 11:17 DCW [id number]) Out-Patient Physical Therapy Visit Information Visit Information Visit Type Treatment Note Visit Start Time 10:30 Visit Stop Time 11:15 Total Visit Minutes 45 Visit Number 15 Number of CLASSIFIED ADVERTISING SUPERVISOR Visits 0 Evaluation Information Evaluation Date 05/10/20 PT-OP-B Current Condition Start: 05/10/20 13:35 Freq: Status: Active Protocol: Document 05/10/20 11:15 DCW (Rec: 05/10/20 13:48 DCW [id number]) Current Condition History of Current Condition Onset Date 4-5 months Current Complaints Low back pain/stiffness later in the day History of Current Condition Pt is a 75 year old male well known to this clinic presenting with a 4-5 month history of worsening low back pain. Pt notes his pain worsens throughout the day, but improves with rest. Notes that after walking more than ~ 1/2 mile, it hurts so much that he is unable to stand up straight. He is typically really sore when he gets to bed at night, and if he has to get up in the middie of the night to use the bathroom, it 's really painful, but then by the time morning comes and he gets up, he feels much better. He reports that he was told a number of years ago that his x-rays showed his discs were fusing, but pt feels this pain is more due to core weakness. Prior Treatments and Tests Multiple PT visits secondary to TKA, LE weakness, shoulder pain Personal Factors Other Personal Factors That May Effect Psoriatic arthritis Therapy/Recovery PT-OP-C Subjective Start: 05/10/20 13:35 Freq: Status: Active Protocol: Document 07/16/20 10:30 DCW (Rec: 07/16/20 11:17 DCW [id number]) OP-PT Subjective Patient Comments Patient Comments Pt notes his back is not doing well today. I walked across the kitchen with a carton of eggs this morning all bent over, and was thinking I wasn' t really getting any benefit from physical therapy, but now I'm feeling better for some reason. PT-OP-F Manual Assessment Start: 05/10/20 13:35 Freq: Status: Active Protocol: Document 07/09/20 10:30 DCW (Rec: 07/09/20 10:46 DCW [id number]) Manual Assessments Soft Tissue Assessment Soft Tissue Mobility Assessment Moderate tone along left-sided lumbar paraspinals, left QL, left adductors, and bilateral posterior hip Joint Mobility Assessment Joint Mobility Assessment Hypomobility of lumbar spine, both during movement and with palpation PT-OP-K Range of Motion Start: 05/10/20 13:35 Freq: Status: Active Protocol: Document 07/09/20 10:30 DCW (Rec: 07/09/20 10:46 DCW [id number]) Lumbar Spine Range of Motion Lumbar Spine Active Degrees Testing Position Standing Flexion 45 Extension 15 Lateral Flexion Left 56 Lateral Flexion Right 58 ROM Limitations Soft Tissue Tightness,Bony Restriction,Pain Comments Lateral flexion measured in cm from finger tips to floor PT-OP-L Special Tests Start: 05/10/20 13:35 Freq: Status: Active Protocol: Document 07/09/20 10:30 DCW (Rec: 07/09/20 10:46 DCW [id number]) Special Tests Lumbar Spine Special Tests Torsion Test Results Negative Vertical Spine Loading Test Results Negative A-P Shearing Test Results Negative Straight Leg Raise Test Results Hamstring stiffness R: 64?, L: 66? Standing Flexion Test Results Stiffness Slump Test Results Negative Passive Neck Flexion Test Results Negative PT-OP-M Strength Start: 05/10/20 13:35 Freq: Status: Active Protocol: Document 07/09/20 10:30 DCW (Rec: 07/09/20 10:46 DCW [id number]) Trunk Strength Trunk Manual Muscle Testing Core Stabilization Pt improved ability with dawson and holding TrA, 4 -/5 PT-OP-Q Treatments Start: 05/10/20 13:35 Freq: Status: Active Protocol: Document 07/16/20 10:30 DCW (Rec: 07/16/20 11:17 DCW [id number]) Gym Equipment Therapeutic Ball Low Trunk Rotation Exercise Details LTR Ball Size/Color Red - 55 cm Body Position Supine Resisted trunk rotation Exercise Details Resisted Trunk Rotation Ball Size/Color Green - 65 cm Lv 3 T-band Body Position Sitting Pelvic tilts/circles Exercise Details Pelvic tilts/circles Ball Size/Color Green - 65 cm Body Position Sitting Comments Use mirror for feedback Therapeutic Exercises Sidelying Exercises 1 Sidelying Exercise Name Open Book/Reach and Roll Side bilateral Manual Therapy Treatment Soft Tissue Mobilization 2 Body Location B Piriformis Mobilization Type Sustained Pressure Intensity/Depth Deep Body Position Sidelying 1 Body Location B lumbar paraspinals Mobilization Type Strumming,Sustained Pressure Intensity/Depth Moderate Body Position Sidelying Joint Mobilizations 1 Joint Lumbar vertebrae Direction P->A PT-OP-T Assessment and Plan Start: 05/10/20 13:35 Freq: Status: Active Protocol: Document 07/16/20 10:30 DCW (Rec: 07/16/20 11:17 DCW [id number]) Physical Therapy Assessment Impairments Impairments Activity Tolerance,Functional Activities,Functional Mobility ,Pain,Posture,ROM,Strength Goals Four Impairment Pt displays limited lumbar ROM Correction Goal (LTG) Lumbar flexion and extension to 50? 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 LTG Duration 09/06/20 One Impairment Pt does not have appropriate home exercise program Short Term Goal (STG) Pt to be independent and compliant with an appropriate HEP STG Duration 08/09/20 Assessment Summary Assessment Pt mobility and pain levels seem to vary on a day-to-day basis, unable to determine cause at this time. Physical Therapy Plan Frequency and Duration Frequency of Treatment 2x/Week Duration of Treatment two months Plan of Care Start Date 07/09/20 Plan of Care End Date 09/06/20 Therapeutic Interventions Therapeutic Interventions Home Exercise Program,Joint Mobilizations,Manual Therapy, Patient/Caregiver Education, Self-Care/Home Management,Soft Tissue Mobilization, Therapeutic Activities, Therapeutic Exercises Modalities Cold Pack/Ice Massage,Electric Stimulation,Hot Packs, Ultrasound Next Visit Focus/Plan Next Note Type Treatment Note Next Visit Plan Core strengthening, STM, joint mobilizations
--- NOTE | 2020-07-18 11:14 | PT.OTN ---
Current Diagnoses Other chronic pain (07/18/20) Stiffness of other specified joint, not elsewhere classified (07/18/20) Low back pain (07/18/20) Physical Therapy Treatment Note PT-OP-A Visit Information Start: 05/10/20 13:35 Freq: Status: Active Protocol: Document 07/18/20 10:30 DCW (Rec: 07/18/20 11:14 DCW [id number]) Out-Patient Physical Therapy Visit Information Visit Information Visit Type Treatment Note Visit Start Time 10:30 Visit Stop Time 11:15 Total Visit Minutes 45 Visit Number 16 Number of MOUNTAIN SERVICES MANAGER Visits 0 Evaluation Information Evaluation Date 05/10/20 PT-OP-B Current Condition Start: 05/10/20 13:35 Freq: Status: Active Protocol: Document 05/10/20 11:15 DCW (Rec: 05/10/20 13:48 DCW [id number]) Current Condition History of Current Condition Onset Date 4-5 months Current Complaints Low back pain/stiffness later in the day History of Current Condition Pt is a 75 year old male well known to this clinic presenting with a 4-5 month history of worsening low back pain. Pt notes his pain worsens throughout the day, but improves with rest. Notes that after walking more than ~ 1/2 mile, it hurts so much that he is unable to stand up straight. He is typically really sore when he gets to bed at night, and if he has to get up in the middie of the night to use the bathroom, it 's really painful, but then by the time morning comes and he gets up, he feels much better. He reports that he was told a number of years ago that his x-rays showed his discs were fusing, but pt feels this pain is more due to core weakness. Prior Treatments and Tests Multiple PT visits secondary to TKA, LE weakness, shoulder pain Personal Factors Other Personal Factors That May Effect Psoriatic arthritis Therapy/Recovery PT-OP-C Subjective Start: 05/10/20 13:35 Freq: Status: Active Protocol: Document 07/18/20 10:30 DCW (Rec: 07/18/20 11:14 DCW [id number]) OP-PT Subjective Patient Comments Patient Comments Pt notes his back is not good . It wasn't good last night, and it wasn't good this morning. PT-OP-F Manual Assessment Start: 05/10/20 13:35 Freq: Status: Active Protocol: Document 07/09/20 10:30 DCW (Rec: 07/09/20 10:46 DCW [id number]) Manual Assessments Soft Tissue Assessment Soft Tissue Mobility Assessment Moderate tone along left-sided lumbar paraspinals, left QL, left adductors, and bilateral posterior hip Joint Mobility Assessment Joint Mobility Assessment Hypomobility of lumbar spine, both during movement and with palpation PT-OP-K Range of Motion Start: 05/10/20 13:35 Freq: Status: Active Protocol: Document 07/09/20 10:30 DCW (Rec: 07/09/20 10:46 DCW [id number]) Lumbar Spine Range of Motion Lumbar Spine Active Degrees Testing Position Standing Flexion 45 Extension 15 Lateral Flexion Left 56 Lateral Flexion Right 58 ROM Limitations Soft Tissue Tightness,Bony Restriction,Pain Comments Lateral flexion measured in cm from finger tips to floor PT-OP-L Special Tests Start: 05/10/20 13:35 Freq: Status: Active Protocol: Document 07/09/20 10:30 DCW (Rec: 07/09/20 10:46 DCW [id number]) Special Tests Lumbar Spine Special Tests Torsion Test Results Negative Vertical Spine Loading Test Results Negative A-P Shearing Test Results Negative Straight Leg Raise Test Results Hamstring stiffness R: 64?, L: 66? Standing Flexion Test Results Stiffness Slump Test Results Negative Passive Neck Flexion Test Results Negative PT-OP-M Strength Start: 05/10/20 13:35 Freq: Status: Active Protocol: Document 07/09/20 10:30 DCW (Rec: 07/09/20 10:46 DCW [id number]) Trunk Strength Trunk Manual Muscle Testing Core Stabilization Pt improved ability with dawson and holding TrA, 4 -/5 PT-OP-Q Treatments Start: 05/10/20 13:35 Freq: Status: Active Protocol: Document 07/18/20 10:30 DCW (Rec: 07/18/20 11:14 DCW [id number]) Gym Equipment Therapeutic Ball Low Trunk Rotation Exercise Details LTR Ball Size/Color Red - 55 cm Body Position Supine Resisted trunk rotation Exercise Details Resisted Trunk Rotation Ball Size/Color Green - 65 cm Lv 3 T-band Body Position Sitting Pelvic tilts/circles Exercise Details Pelvic tilts/circles Ball Size/Color Green - 65 cm Body Position Sitting Comments Use mirror for feedback Therapeutic Exercises Supine Exercises Straight Leg Raise Supine Exercise Name PPT /c TrA - SLR PPT /c TrA - SLR Supine Exercise Name PPT /c TrA - Marching Side bilateral Manual Therapy Treatment Soft Tissue Mobilization 2 Body Location B Piriformis Mobilization Type Sustained Pressure Intensity/Depth Deep Body Position Sidelying 1 Body Location B lumbar paraspinals Mobilization Type Strumming,Sustained Pressure Intensity/Depth Moderate Body Position Sidelying Joint Mobilizations 1 Joint Lumbar vertebrae Direction P->A PT-OP-T Assessment and Plan Start: 05/10/20 13:35 Freq: Status: Active Protocol: Document 07/18/20 10:30 DCW (Rec: 07/18/20 11:14 DCW [id number]) Physical Therapy Assessment Impairments Impairments Activity Tolerance,Functional Activities,Functional Mobility ,Pain,Posture,ROM,Strength Goals Four Impairment Pt displays limited lumbar ROM Alf Goal (LTG) Lumbar flexion and extension to 50? and 25?, respectively LTG Duration 09/06/20 Three Impairment Pt unable to tolerate working in his workshop in the PM due to back pain Alf Goal (LTG) 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 to spend evenings in his workshop after a day of activity with no increased back pain or stiffness LTG Duration 09/06/20 Two Impairment Pt has severe back pain and is unable to stand straight after walking .5 mi Music Manager Goal (LTG) Pt to ambulate 1.5 miles with no increase in back pain. LTG Duration 09/06/20 One Impairment Pt does not have appropriate home exercise program Short Term Goal (STG) Pt to be independent and compliant with an appropriate HEP STG Duration 08/09/20 Assessment Summary Assessment Pt moving better today after STM, getting off the table with minimal pain and difficulty. Physical Therapy Plan Frequency and Duration Frequency of Treatment 2x/Week Duration of Treatment two months Plan of Care Start Date 07/09/20 Plan of Care End Date 09/06/20 Therapeutic Interventions Therapeutic Interventions Home Exercise Program,Joint Mobilizations,Manual Therapy, Patient/Caregiver Education, Self-Care/Home Management,Soft Tissue Mobilization, Therapeutic Activities, Therapeutic Exercises Modalities Cold Pack/Ice Massage,Electric Stimulation,Hot Packs, Ultrasound Next Visit Focus/Plan Next Note Type Treatment Note Next Visit Plan Core strengthening, STM, joint mobilizations
--- NOTE | 2020-07-25 11:17 | PT.OTN ---
Current Diagnoses Other chronic pain (07/25/20) Stiffness of other specified joint, not elsewhere classified (07/25/20) Low back pain (07/25/20) Physical Therapy Treatment Note PT-OP-A Visit Information Start: 05/10/20 13:35 Freq: Status: Active Protocol: Document 07/25/20 10:30 DCW (Rec: 07/25/20 11:17 DCW [id number]) Out-Patient Physical Therapy Visit Information Visit Information Visit Type Treatment Note Visit Start Time 10:30 Visit Stop Time 11:15 Total Visit Minutes 45 Visit Number 17 Number of LEADERSHIP PROGRAM INTERNSHIP Visits 0 Evaluation Information Evaluation Date 05/10/20 PT-OP-B Current Condition Start: 05/10/20 13:35 Freq: Status: Active Protocol: Document 05/10/20 11:15 DCW (Rec: 05/10/20 13:48 DCW [id number]) Current Condition History of Current Condition Onset Date 4-5 months Current Complaints Low back pain/stiffness later in the day History of Current Condition Pt is a 75 year old male well known to this clinic presenting with a 4-5 month history of worsening low back pain. Pt notes his pain worsens throughout the day, but improves with rest. Notes that after walking more than ~ 1/2 mile, it hurts so much that he is unable to stand up straight. He is typically really sore when he gets to bed at night, and if he has to get up in the middie of the night to use the bathroom, it 's really painful, but then by the time morning comes and he gets up, he feels much better. He reports that he was told a number of years ago that his x-rays showed his discs were fusing, but pt feels this pain is more due to core weakness. Prior Treatments and Tests Multiple PT visits secondary to TKA, LE weakness, shoulder pain Personal Factors Other Personal Factors That May Effect Psoriatic arthritis Therapy/Recovery PT-OP-C Subjective Start: 05/10/20 13:35 Freq: Status: Active Protocol: Document 07/25/20 10:30 DCW (Rec: 07/25/20 11:17 DCW [id number]) OP-PT Subjective Patient Comments Patient Comments Pt notes he has been feeling better the past few days, notes he has been lying on the floor with his hips/knees in a 90/90 position, which helps his back relax PT-OP-F Manual Assessment Start: 05/10/20 13:35 Freq: Status: Active Protocol: Document 07/09/20 10:30 DCW (Rec: 07/09/20 10:46 DCW [id number]) Manual Assessments Soft Tissue Assessment Soft Tissue Mobility Assessment Moderate tone along left-sided lumbar paraspinals, left QL, left adductors, and bilateral posterior hip Joint Mobility Assessment Joint Mobility Assessment Hypomobility of lumbar spine, both during movement and with palpation PT-OP-K Range of Motion Start: 05/10/20 13:35 Freq: Status: Active Protocol: Document 07/09/20 10:30 DCW (Rec: 07/09/20 10:46 DCW [id number]) Lumbar Spine Range of Motion Lumbar Spine Active Degrees Testing Position Standing Flexion 45 Extension 15 Lateral Flexion Left 56 Lateral Flexion Right 58 ROM Limitations Soft Tissue Tightness,Bony Restriction,Pain Comments Lateral flexion measured in cm from finger tips to floor PT-OP-L Special Tests Start: 05/10/20 13:35 Freq: Status: Active Protocol: Document 07/09/20 10:30 DCW (Rec: 07/09/20 10:46 DCW [id number]) Special Tests Lumbar Spine Special Tests Torsion Test Results Negative Vertical Spine Loading Test Results Negative A-P Shearing Test Results Negative Straight Leg Raise Test Results Hamstring stiffness R: 64?, L: 66? Standing Flexion Test Results Stiffness Slump Test Results Negative Passive Neck Flexion Test Results Negative PT-OP-M Strength Start: 05/10/20 13:35 Freq: Status: Active Protocol: Document 07/09/20 10:30 DCW (Rec: 07/09/20 10:46 DCW [id number]) Trunk Strength Trunk Manual Muscle Testing Core Stabilization Pt improved ability with dawson and holding TrA, 4 -/5 PT-OP-Q Treatments Start: 05/10/20 13:35 Freq: Status: Active Protocol: Document 07/25/20 10:30 DCW (Rec: 07/25/20 11:17 DCW [id number]) Gym Equipment Therapeutic Ball Resisted trunk rotation Exercise Details Resisted Trunk Rotation Ball Size/Color Green - 65 cm Lv 3 T-band Body Position Sitting Pelvic tilts/circles Exercise Details Pelvic tilts/circles Ball Size/Color Green - 65 cm Body Position Sitting Comments Use mirror for feedback Therapeutic Exercises Supine Exercises 1 Supine Exercise Name Piriformis stretch Side bilateral Hamstring Stretch Supine Exercise Name HS stretch Side bilateral Sidelying Exercises 1 Sidelying Exercise Name Open Book/Reach and Roll Side bilateral Manual Therapy Treatment Soft Tissue Mobilization 2 Body Location B Piriformis Mobilization Type Sustained Pressure Intensity/Depth Deep Body Position Sidelying 1 Body Location B lumbar paraspinals Mobilization Type Strumming,Sustained Pressure Intensity/Depth Moderate Body Position Sidelying Joint Mobilizations 1 Joint Lumbar vertebrae Direction P->A PT-OP-T Assessment and Plan Start: 05/10/20 13:35 Freq: Status: Active Protocol: Document 07/25/20 10:30 DCW (Rec: 07/25/20 11:17 DCW [id number]) Physical Therapy Assessment Impairments Impairments Activity Tolerance,Functional Activities,Functional Mobility ,Pain,Posture,ROM,Strength Goals Four Impairment Pt displays limited lumbar ROM Reporting Lead Goal (LTG) Lumbar flexion and extension to 50? and 25?, respectively LTG Duration 09/06/20 Three Impairment Pt unable to tolerate working in his workshop in the PM due to back pain Reporting Lead Goal (LTG) 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 to spend evenings in his workshop after a day of activity with no increased back pain or stiffness LTG Duration 09/06/20 Two Impairment Pt has severe back pain and is unable to stand straight after walking .5 mi Reporting Lead Goal (LTG) Pt to ambulate 1.5 miles with no increase in back pain. LTG Duration 09/06/20 One Impairment Pt does not have appropriate home exercise program Short Term Goal (STG) Pt to be independent and compliant with an appropriate HEP STG Duration 08/09/20 Assessment Summary Assessment Pt doing well today, moving with much less pain. Physical Therapy Plan Frequency and Duration Frequency of Treatment 2x/Week Duration of Treatment two months Plan of Care Start Date 07/09/20 Plan of Care End Date 09/06/20 Therapeutic Interventions Therapeutic Interventions Home Exercise Program,Joint Mobilizations,Manual Therapy, Patient/Caregiver Education, Self-Care/Home Management,Soft Tissue Mobilization, Therapeutic Activities, Therapeutic Exercises Modalities Cold Pack/Ice Massage,Electric Stimulation,Hot Packs, Ultrasound Next Visit Focus/Plan Next Note Type Treatment Note Next Visit Plan Core strengthening, STM, joint mobilizations
--- NOTE | 2020-07-30 11:16 | PT.OTN ---
Current Diagnoses Other chronic pain (07/30/20) Stiffness of other specified joint, not elsewhere classified (07/30/20) Low back pain (07/30/20) Physical Therapy Treatment Note PT-OP-A Visit Information Start: 05/10/20 13:35 Freq: Status: Active Protocol: Document 07/30/20 10:30 DCW (Rec: 07/30/20 11:16 DCW [id number]) Out-Patient Physical Therapy Visit Information Visit Information Visit Type Treatment Note Visit Start Time 10:30 Visit Stop Time 11:15 Total Visit Minutes 45 Visit Number 18 Number of CLOTH COLORER Visits 0 Evaluation Information Evaluation Date 05/10/20 PT-OP-B Current Condition Start: 05/10/20 13:35 Freq: Status: Active Protocol: Document 05/10/20 11:15 DCW (Rec: 05/10/20 13:48 DCW [id number]) Current Condition History of Current Condition Onset Date 4-5 months Current Complaints Low back pain/stiffness later in the day History of Current Condition Pt is a 75 year old male well known to this clinic presenting with a 4-5 month history of worsening low back pain. Pt notes his pain worsens throughout the day, but improves with rest. Notes that after walking more than ~ 1/2 mile, it hurts so much that he is unable to stand up straight. He is typically really sore when he gets to bed at night, and if he has to get up in the middie of the night to use the bathroom, it 's really painful, but then by the time morning comes and he gets up, he feels much better. He reports that he was told a number of years ago that his x-rays showed his discs were fusing, but pt feels this pain is more due to core weakness. Prior Treatments and Tests Multiple PT visits secondary to TKA, LE weakness, shoulder pain Personal Factors Other Personal Factors That May Effect Psoriatic arthritis Therapy/Recovery PT-OP-C Subjective Start: 05/10/20 13:35 Freq: Status: Active Protocol: Document 07/30/20 10:30 DCW (Rec: 07/30/20 11:16 DCW [id number]) OP-PT Subjective Patient Comments Patient Comments Pt reports he has been working a lot on stretching his hamstring out, and it has really been helping. PT-OP-F Manual Assessment Start: 05/10/20 13:35 Freq: Status: Active Protocol: Document 07/09/20 10:30 DCW (Rec: 07/09/20 10:46 DCW [id number]) Manual Assessments Soft Tissue Assessment Soft Tissue Mobility Assessment Moderate tone along left-sided lumbar paraspinals, left QL, left adductors, and bilateral posterior hip Joint Mobility Assessment Joint Mobility Assessment Hypomobility of lumbar spine, both during movement and with palpation PT-OP-K Range of Motion Start: 05/10/20 13:35 Freq: Status: Active Protocol: Document 07/09/20 10:30 DCW (Rec: 07/09/20 10:46 DCW [id number]) Lumbar Spine Range of Motion Lumbar Spine Active Degrees Testing Position Standing Flexion 45 Extension 15 Lateral Flexion Left 56 Lateral Flexion Right 58 ROM Limitations Soft Tissue Tightness,Bony Restriction,Pain Comments Lateral flexion measured in cm from finger tips to floor PT-OP-L Special Tests Start: 05/10/20 13:35 Freq: Status: Active Protocol: Document 07/09/20 10:30 DCW (Rec: 07/09/20 10:46 DCW [id number]) Special Tests Lumbar Spine Special Tests Torsion Test Results Negative Vertical Spine Loading Test Results Negative A-P Shearing Test Results Negative Straight Leg Raise Test Results Hamstring stiffness R: 64?, L: 66? Standing Flexion Test Results Stiffness Slump Test Results Negative Passive Neck Flexion Test Results Negative PT-OP-M Strength Start: 05/10/20 13:35 Freq: Status: Active Protocol: Document 07/09/20 10:30 DCW (Rec: 07/09/20 10:46 DCW [id number]) Trunk Strength Trunk Manual Muscle Testing Core Stabilization Pt improved ability with dawson and holding TrA, 4 -/5 PT-OP-Q Treatments Start: 05/10/20 13:35 Freq: Status: Active Protocol: Document 07/30/20 10:30 DCW (Rec: 07/30/20 11:16 DCW [id number]) Gym Equipment Therapeutic Ball Low Trunk Rotation Exercise Details LTR Ball Size/Color Red - 55 cm Body Position Supine Resisted trunk rotation Exercise Details Resisted Trunk Rotation Ball Size/Color Green - 65 cm Lv 3 T-band Body Position Sitting Pelvic tilts/circles Exercise Details Pelvic tilts/circles Ball Size/Color Green - 65 cm Body Position Sitting Comments Use mirror for feedback Therapeutic Exercises Supine Exercises 1 Supine Exercise Name Piriformis stretch Side bilateral Hamstring Stretch Supine Exercise Name HS stretch Side bilateral Manual Therapy Treatment Soft Tissue Mobilization 2 Body Location B Piriformis Mobilization Type Sustained Pressure Intensity/Depth Deep Body Position Sidelying 1 Body Location B lumbar paraspinals Mobilization Type Strumming,Sustained Pressure Intensity/Depth Moderate Body Position Sidelying Joint Mobilizations 1 Joint Lumbar vertebrae Direction P->A PT-OP-T Assessment and Plan Start: 05/10/20 13:35 Freq: Status: Active Protocol: Document 07/30/20 10:30 DCW (Rec: 07/30/20 11:16 DCW [id number]) Physical Therapy Assessment Impairments Impairments Activity Tolerance,Functional Activities,Functional Mobility ,Pain,Posture,ROM,Strength Goals Four Impairment Pt displays limited lumbar ROM Chcf Goal (LTG) Lumbar flexion and extension to 50? 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 LTG Duration 09/06/20 One Impairment Pt does not have appropriate home exercise program Short Term Goal (STG) Pt to be independent and compliant with an appropriate HEP STG Duration 08/09/20 Assessment Summary Assessment Changed usual order today, starting more with the manual therapy and moving to TherEx, pt felt much looser and flexible during TherEx, able to move with significantly less pain. Physical Therapy Plan Frequency and Duration Frequency of Treatment 2x/Week Duration of Treatment two months Plan of Care Start Date 07/09/20 Plan of Care End Date 09/06/20 Therapeutic Interventions Therapeutic Interventions Home Exercise Program,Joint Mobilizations,Manual Therapy, Patient/Caregiver Education, Self-Care/Home Management,Soft Tissue Mobilization, Therapeutic Activities, Therapeutic Exercises Modalities Cold Pack/Ice Massage,Electric Stimulation,Hot Packs, Ultrasound Next Visit Focus/Plan Next Note Type Treatment Note Next Visit Plan Core strengthening, STM, joint mobilizations
--- NOTE | 2020-08-01 11:16 | PT.OTN ---
Current Diagnoses Other chronic pain (08/01/20) Stiffness of other specified joint, not elsewhere classified (08/01/20) Low back pain (08/01/20) Physical Therapy Treatment Note PT-OP-A Visit Information Start: 05/10/20 13:35 Freq: Status: Active Protocol: Document 08/01/20 10:30 DCW (Rec: 08/01/20 11:15 DCW [id number]) Out-Patient Physical Therapy Visit Information Visit Information Visit Type Treatment Note Visit Start Time 10:30 Visit Stop Time 11:15 Total Visit Minutes 45 Visit Number 19 Number of MONTESSORI TEACHER Visits 0 Evaluation Information Evaluation Date 05/10/20 PT-OP-B Current Condition Start: 05/10/20 13:35 Freq: Status: Active Protocol: Document 05/10/20 11:15 DCW (Rec: 05/10/20 13:48 DCW [id number]) Current Condition History of Current Condition Onset Date 4-5 months Current Complaints Low back pain/stiffness later in the day History of Current Condition Pt is a 75 year old male well known to this clinic presenting with a 4-5 month history of worsening low back pain. Pt notes his pain worsens throughout the day, but improves with rest. Notes that after walking more than ~ 1/2 mile, it hurts so much that he is unable to stand up straight. He is typically really sore when he gets to bed at night, and if he has to get up in the middie of the night to use the bathroom, it 's really painful, but then by the time morning comes and he gets up, he feels much better. He reports that he was told a number of years ago that his x-rays showed his discs were fusing, but pt feels this pain is more due to core weakness. Prior Treatments and Tests Multiple PT visits secondary to TKA, LE weakness, shoulder pain Personal Factors Other Personal Factors That May Effect Psoriatic arthritis Therapy/Recovery PT-OP-C Subjective Start: 05/10/20 13:35 Freq: Status: Active Protocol: Document 08/01/20 10:30 DCW (Rec: 08/01/20 11:15 DCW [id number]) OP-PT Subjective Patient Comments Patient Comments Pt reports he feels terrible today after eating too much last night and then being too uncomfortable to sleep. PT-OP-F Manual Assessment Start: 05/10/20 13:35 Freq: Status: Active Protocol: Document 07/09/20 10:30 DCW (Rec: 07/09/20 10:46 DCW [id number]) Manual Assessments Soft Tissue Assessment Soft Tissue Mobility Assessment Moderate tone along left-sided lumbar paraspinals, left QL, left adductors, and bilateral posterior hip Joint Mobility Assessment Joint Mobility Assessment Hypomobility of lumbar spine, both during movement and with palpation PT-OP-K Range of Motion Start: 05/10/20 13:35 Freq: Status: Active Protocol: Document 07/09/20 10:30 DCW (Rec: 07/09/20 10:46 DCW [id number]) Lumbar Spine Range of Motion Lumbar Spine Active Degrees Testing Position Standing Flexion 45 Extension 15 Lateral Flexion Left 56 Lateral Flexion Right 58 ROM Limitations Soft Tissue Tightness,Bony Restriction,Pain Comments Lateral flexion measured in cm from finger tips to floor PT-OP-L Special Tests Start: 05/10/20 13:35 Freq: Status: Active Protocol: Document 07/09/20 10:30 DCW (Rec: 07/09/20 10:46 DCW [id number]) Special Tests Lumbar Spine Special Tests Torsion Test Results Negative Vertical Spine Loading Test Results Negative A-P Shearing Test Results Negative Straight Leg Raise Test Results Hamstring stiffness R: 64?, L: 66? Standing Flexion Test Results Stiffness Slump Test Results Negative Passive Neck Flexion Test Results Negative PT-OP-M Strength Start: 05/10/20 13:35 Freq: Status: Active Protocol: Document 07/09/20 10:30 DCW (Rec: 07/09/20 10:46 DCW [id number]) Trunk Strength Trunk Manual Muscle Testing Core Stabilization Pt improved ability with dawson and holding TrA, 4 -/5 PT-OP-Q Treatments Start: 05/10/20 13:35 Freq: Status: Active Protocol: Document 08/01/20 10:30 DCW (Rec: 08/01/20 11:15 DCW [id number]) Gym Equipment Therapeutic Ball Low Trunk Rotation Exercise Details LTR Ball Size/Color Red - 55 cm Body Position Supine Resisted trunk rotation Exercise Details Resisted Trunk Rotation Ball Size/Color Green - 65 cm Lv 3 T-band Body Position Sitting Pelvic tilts/circles Exercise Details Pelvic tilts/circles Ball Size/Color Green - 65 cm Body Position Sitting Comments Use mirror for feedback Therapeutic Exercises Supine Exercises 1 Supine Exercise Name Piriformis stretch Side bilateral Hamstring Stretch Supine Exercise Name HS stretch Side bilateral Manual Therapy Treatment Soft Tissue Mobilization 2 Body Location B Piriformis Mobilization Type Sustained Pressure Intensity/Depth Deep Body Position Sidelying 1 Body Location B lumbar paraspinals Mobilization Type Strumming,Sustained Pressure Intensity/Depth Moderate Body Position Sidelying Joint Mobilizations 1 Joint Lumbar vertebrae Direction P->A PT-OP-T Assessment and Plan Start: 05/10/20 13:35 Freq: Status: Active Protocol: Document 08/01/20 10:30 DCW (Rec: 08/01/20 11:15 DCW [id number]) Physical Therapy Assessment Impairments Impairments Activity Tolerance,Functional Activities,Functional Mobility ,Pain,Posture,ROM,Strength Goals Four Impairment Pt displays limited lumbar ROM Long-Term Goal (LTG) Lumbar flexion and extension to 50? and 25?, respectively LTG Duration 09/06/20 Three Impairment Pt unable to tolerate working in his workshop in the PM due to back pain Long-Term Goal (LTG) 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 to spend evenings in his workshop after a day of activity with no increased back pain or stiffness LTG Duration 09/06/20 Two Impairment Pt has severe back pain and is unable to stand straight after walking .5 mi Bonsai Culturist Goal (LTG) Pt to ambulate 1.5 miles with no increase in back pain. LTG Duration 09/06/20 One Impairment Pt does not have appropriate home exercise program Short Term Goal (STG) Pt to be independent and compliant with an appropriate HEP STG Duration 08/09/20 Assessment Summary Assessment Pt obviously tired today, but did well overall, improving quality of movement with pelvic circles, although still needs verbal cues for majority of exercises. Physical Therapy Plan Frequency and Duration Frequency of Treatment 2x/Week Duration of Treatment two months Plan of Care Start Date 07/09/20 Plan of Care End Date 09/06/20 Therapeutic Interventions Therapeutic Interventions Home Exercise Program,Joint Mobilizations,Manual Therapy, Patient/Caregiver Education, Self-Care/Home Management,Soft Tissue Mobilization, Therapeutic Activities, Therapeutic Exercises Modalities Cold Pack/Ice Massage,Electric Stimulation,Hot Packs, Ultrasound Next Visit Focus/Plan Next Note Type Treatment Note Next Visit Plan Core strengthening, STM, joint mobilizations
--- NOTE | 2020-08-20 11:15 | PT.OTN ---
Current Diagnoses Other chronic pain (08/20/20) Stiffness of other specified joint, not elsewhere classified (08/20/20) Low back pain (08/20/20) Physical Therapy Treatment Note PT-OP-A Visit Information Start: 05/10/20 13:35 Freq: Status: Active Protocol: Document 08/20/20 10:30 DCW (Rec: 08/20/20 11:15 DCW [id number]) Out-Patient Physical Therapy Visit Information Visit Information Visit Type Treatment Note Visit Start Time 10:30 Visit Stop Time 11:15 Total Visit Minutes 45 Visit Number 20 Number of MANAGER GAMES Visits 0 Evaluation Information Evaluation Date 05/10/20 PT-OP-B Current Condition Start: 05/10/20 13:35 Freq: Status: Active Protocol: Document 05/10/20 11:15 DCW (Rec: 05/10/20 13:48 DCW [id number]) Current Condition History of Current Condition Onset Date 4-5 months Current Complaints Low back pain/stiffness later in the day History of Current Condition Pt is a 75 year old male well known to this clinic presenting with a 4-5 month history of worsening low back pain. Pt notes his pain worsens throughout the day, but improves with rest. Notes that after walking more than ~ 1/2 mile, it hurts so much that he is unable to stand up straight. He is typically really sore when he gets to bed at night, and if he has to get up in the middie of the night to use the bathroom, it 's really painful, but then by the time morning comes and he gets up, he feels much better. He reports that he was told a number of years ago that his x-rays showed his discs were fusing, but pt feels this pain is more due to core weakness. Prior Treatments and Tests Multiple PT visits secondary to TKA, LE weakness, shoulder pain Personal Factors Other Personal Factors That May Effect Psoriatic arthritis Therapy/Recovery PT-OP-C Subjective Start: 05/10/20 13:35 Freq: Status: Active Protocol: Document 08/20/20 10:30 DCW (Rec: 08/20/20 11:15 DCW [id number]) OP-PT Subjective Patient Comments Patient Comments I'm feeling pretty good today . I don't know why, but I am. Notes he has had a lot more pain through his abdomen the past week, but woke up pain- free today. PT-OP-F Manual Assessment Start: 05/10/20 13:35 Freq: Status: Active Protocol: Document 07/09/20 10:30 DCW (Rec: 07/09/20 10:46 DCW [id number]) Manual Assessments Soft Tissue Assessment Soft Tissue Mobility Assessment Moderate tone along left-sided lumbar paraspinals, left QL, left adductors, and bilateral posterior hip Joint Mobility Assessment Joint Mobility Assessment Hypomobility of lumbar spine, both during movement and with palpation PT-OP-K Range of Motion Start: 05/10/20 13:35 Freq: Status: Active Protocol: Document 07/09/20 10:30 DCW (Rec: 07/09/20 10:46 DCW [id number]) Lumbar Spine Range of Motion Lumbar Spine Active Degrees Testing Position Standing Flexion 45 Extension 15 Lateral Flexion Left 56 Lateral Flexion Right 58 ROM Limitations Soft Tissue Tightness,Bony Restriction,Pain Comments Lateral flexion measured in cm from finger tips to floor PT-OP-L Special Tests Start: 05/10/20 13:35 Freq: Status: Active Protocol: Document 07/09/20 10:30 DCW (Rec: 07/09/20 10:46 DCW [id number]) Special Tests Lumbar Spine Special Tests Torsion Test Results Negative Vertical Spine Loading Test Results Negative A-P Shearing Test Results Negative Straight Leg Raise Test Results Hamstring stiffness R: 64?, L: 66? Standing Flexion Test Results Stiffness Slump Test Results Negative Passive Neck Flexion Test Results Negative PT-OP-M Strength Start: 05/10/20 13:35 Freq: Status: Active Protocol: Document 07/09/20 10:30 DCW (Rec: 07/09/20 10:46 DCW [id number]) Trunk Strength Trunk Manual Muscle Testing Core Stabilization Pt improved ability with dawson and holding TrA, 4 -/5 PT-OP-Q Treatments Start: 05/10/20 13:35 Freq: Status: Active Protocol: Document 08/20/20 10:30 DCW (Rec: 08/20/20 11:15 DCW [id number]) Gym Equipment Therapeutic Ball Low Trunk Rotation Exercise Details LTR Ball Size/Color Red - 55 cm Body Position Supine Resisted trunk rotation Exercise Details Resisted Trunk Rotation Ball Size/Color Green - 65 cm Lv 3 T-band Body Position Sitting Pelvic tilts/circles Exercise Details Pelvic tilts/circles Ball Size/Color Green - 65 cm Body Position Sitting Comments Use mirror for feedback Manual Therapy Treatment Soft Tissue Mobilization 2 Body Location B Piriformis Mobilization Type Sustained Pressure Intensity/Depth Deep Body Position Sidelying 1 Body Location B lumbar paraspinals Mobilization Type Strumming,Sustained Pressure Intensity/Depth Moderate Body Position Sidelying Joint Mobilizations 1 Joint Lumbar vertebrae Direction P->A PT-OP-T Assessment and Plan Start: 05/10/20 13:35 Freq: Status: Active Protocol: Document 08/20/20 10:30 DCW (Rec: 08/20/20 11:15 DCW [id number]) Physical Therapy Assessment Impairments Impairments Activity Tolerance,Functional Activities,Functional Mobility ,Pain,Posture,ROM,Strength Goals Four Impairment Pt displays limited lumbar ROM Inside Phone Sales Goal (LTG) Lumbar flexion and extension to 50? and 25?, respectively LTG Duration 09/06/20 Three Impairment Pt unable to tolerate working in his workshop in the PM due to back pain Half-Way Goal (LTG) 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 to spend evenings in his workshop after a day of activity with no increased back pain or stiffness LTG Duration 09/06/20 Two Impairment Pt has severe back pain and is unable to stand straight after walking .5 mi Inside Phone Sales Goal (LTG) Pt to ambulate 1.5 miles with no increase in back pain. LTG Duration 09/06/20 One Impairment Pt does not have appropriate home exercise program Short Term Goal (STG) Pt to be independent and compliant with an appropriate HEP STG Duration 08/09/20 Assessment Summary Assessment Pt still having difficulty getting onto and off of the plinth, increase is low back discomfort, but overall doing much better with lumbar mobility. Physical Therapy Plan Frequency and Duration Frequency of Treatment 2x/Week Duration of Treatment two months Plan of Care Start Date 07/09/20 Plan of Care End Date 09/06/20 Therapeutic Interventions Therapeutic Interventions Home Exercise Program,Joint Mobilizations,Manual Therapy, Patient/Caregiver Education, Self-Care/Home Management,Soft Tissue Mobilization, Therapeutic Activities, Therapeutic Exercises Modalities Cold Pack/Ice Massage,Electric Stimulation,Hot Packs, Ultrasound Next Visit Focus/Plan Next Note Type Treatment Note Next Visit Plan Core strengthening, STM, joint mobilizations
--- NOTE | 2020-08-23 10:31 | PT.OTN ---
Current Diagnoses Other chronic pain (08/23/20) Stiffness of other specified joint, not elsewhere classified (08/23/20) Low back pain (08/23/20) Physical Therapy Treatment Note PT-OP-A Visit Information Start: 05/10/20 13:35 Freq: Status: Active Protocol: Document 08/23/20 09:45 DCW (Rec: 08/23/20 10:31 DCW [id number]) Out-Patient Physical Therapy Visit Information Visit Information Visit Type Treatment Note Visit Start Time 09:45 Visit Stop Time 10:30 Total Visit Minutes 45 Visit Number 21 Number of CLAIM REP Visits 0 Evaluation Information Evaluation Date 05/10/20 PT-OP-B Current Condition Start: 05/10/20 13:35 Freq: Status: Active Protocol: Document 05/10/20 11:15 DCW (Rec: 05/10/20 13:48 DCW [id number]) Current Condition History of Current Condition Onset Date 4-5 months Current Complaints Low back pain/stiffness later in the day History of Current Condition Pt is a 75 year old male well known to this clinic presenting with a 4-5 month history of worsening low back pain. Pt notes his pain worsens throughout the day, but improves with rest. Notes that after walking more than ~ 1/2 mile, it hurts so much that he is unable to stand up straight. He is typically really sore when he gets to bed at night, and if he has to get up in the middie of the night to use the bathroom, it 's really painful, but then by the time morning comes and he gets up, he feels much better. He reports that he was told a number of years ago that his x-rays showed his discs were fusing, but pt feels this pain is more due to core weakness. Prior Treatments and Tests Multiple PT visits secondary to TKA, LE weakness, shoulder pain Personal Factors Other Personal Factors That May Effect Psoriatic arthritis Therapy/Recovery PT-OP-C Subjective Start: 05/10/20 13:35 Freq: Status: Active Protocol: Document 08/23/20 09:45 DCW (Rec: 08/23/20 10:31 DCW [id number]) OP-PT Subjective Patient Comments Patient Comments Pt feels that overall, he is moving better. He can straighten up his back and walk without being hunched over, which was something he was struggling with previously , however he is actually having worse pain with bed mobility. PT-OP-F Manual Assessment Start: 05/10/20 13:35 Freq: Status: Active Protocol: Document 07/09/20 10:30 DCW (Rec: 07/09/20 10:46 DCW [id number]) Manual Assessments Soft Tissue Assessment Soft Tissue Mobility Assessment Moderate tone along left-sided lumbar paraspinals, left QL, left adductors, and bilateral posterior hip Joint Mobility Assessment Joint Mobility Assessment Hypomobility of lumbar spine, both during movement and with palpation PT-OP-K Range of Motion Start: 05/10/20 13:35 Freq: Status: Active Protocol: Document 07/09/20 10:30 DCW (Rec: 07/09/20 10:46 DCW [id number]) Lumbar Spine Range of Motion Lumbar Spine Active Degrees Testing Position Standing Flexion 45 Extension 15 Lateral Flexion Left 56 Lateral Flexion Right 58 ROM Limitations Soft Tissue Tightness,Bony Restriction,Pain Comments Lateral flexion measured in cm from finger tips to floor PT-OP-L Special Tests Start: 05/10/20 13:35 Freq: Status: Active Protocol: Document 07/09/20 10:30 DCW (Rec: 07/09/20 10:46 DCW [id number]) Special Tests Lumbar Spine Special Tests Torsion Test Results Negative Vertical Spine Loading Test Results Negative A-P Shearing Test Results Negative Straight Leg Raise Test Results Hamstring stiffness R: 64?, L: 66? Standing Flexion Test Results Stiffness Slump Test Results Negative Passive Neck Flexion Test Results Negative PT-OP-M Strength Start: 05/10/20 13:35 Freq: Status: Active Protocol: Document 07/09/20 10:30 DCW (Rec: 07/09/20 10:46 DCW [id number]) Trunk Strength Trunk Manual Muscle Testing Core Stabilization Pt improved ability with dawson and holding TrA, 4 -/5 PT-OP-Q Treatments Start: 05/10/20 13:35 Freq: Status: Active Protocol: Document 08/23/20 09:45 DCW (Rec: 08/23/20 10:31 DCW [id number]) Gym Equipment Therapeutic Ball Resisted trunk rotation Exercise Details Resisted Trunk Rotation Ball Size/Color Green - 65 cm Lv 3 T-band Body Position Sitting Pelvic tilts/circles Exercise Details Pelvic tilts/circles Ball Size/Color Green - 65 cm Body Position Sitting Comments Use mirror for feedback Therapeutic Exercises Supine Exercises 1 Supine Exercise Name Piriformis stretch Side bilateral Hamstring Stretch Supine Exercise Name HS stretch Side bilateral Manual Therapy Treatment Soft Tissue Mobilization 2 Body Location B Piriformis Mobilization Type Sustained Pressure Intensity/Depth Deep Body Position Sidelying 1 Body Location B lumbar paraspinals Mobilization Type Strumming,Sustained Pressure Intensity/Depth Moderate Body Position Sidelying Joint Mobilizations 1 Joint Lumbar vertebrae Direction P->A PT-OP-T Assessment and Plan Start: 05/10/20 13:35 Freq: Status: Active Protocol: Document 08/23/20 09:45 DCW (Rec: 08/23/20 10:31 DCW [id number]) Physical Therapy Assessment Impairments Impairments Activity Tolerance,Functional Activities,Functional Mobility ,Pain,Posture,ROM,Strength Goals Four Impairment Pt displays limited lumbar ROM [employer] Goal (LTG) Lumbar flexion and extension to 50? 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 LTG Duration 09/06/20 One Impairment Pt does not have appropriate home exercise program Short Term Goal (STG) Pt to be independent and compliant with an appropriate HEP STG Duration 08/09/20 Assessment Summary Assessment Pt again struggling with bed mobility., but showing improved posture during gait. Physical Therapy Plan Frequency and Duration Frequency of Treatment 2x/Week Duration of Treatment two months Plan of Care Start Date 07/09/20 Plan of Care End Date 09/06/20 Therapeutic Interventions Therapeutic Interventions Home Exercise Program,Joint Mobilizations,Manual Therapy, Patient/Caregiver Education, Self-Care/Home Management,Soft Tissue Mobilization, Therapeutic Activities, Therapeutic Exercises Modalities Cold Pack/Ice Massage,Electric Stimulation,Hot Packs, Ultrasound Next Visit Focus/Plan Next Note Type Treatment Note Next Visit Plan Core strengthening, STM, joint mobilizations
--- NOTE | 2020-08-27 12:01 | PT.OTN ---
Current Diagnoses Other chronic pain (08/27/20) Stiffness of other specified joint, not elsewhere classified (08/27/20) Low back pain (08/27/20) Physical Therapy Treatment Note PT-OP-A Visit Information Start: 05/10/20 13:35 Freq: Status: Active Protocol: Document 08/27/20 11:16 DCW (Rec: 08/27/20 12:01 DCW [id number]) Out-Patient Physical Therapy Visit Information Visit Information Visit Type Treatment Note Visit Start Time 11:16 Visit Stop Time 12:00 Total Visit Minutes 44 Visit Number 22 Number of [employer] Visits 0 Evaluation Information Evaluation Date 05/10/20 PT-OP-B Current Condition Start: 05/10/20 13:35 Freq: Status: Active Protocol: Document 05/10/20 11:15 DCW (Rec: 05/10/20 13:48 DCW [id number]) Current Condition History of Current Condition Onset Date 4-5 months Current Complaints Low back pain/stiffness later in the day History of Current Condition Pt is a 75 year old male well known to this clinic presenting with a 4-5 month history of worsening low back pain. Pt notes his pain worsens throughout the day, but improves with rest. Notes that after walking more than ~ 1/2 mile, it hurts so much that he is unable to stand up straight. He is typically really sore when he gets to bed at night, and if he has to get up in the middie of the night to use the bathroom, it 's really painful, but then by the time morning comes and he gets up, he feels much better. He reports that he was told a number of years ago that his x-rays showed his discs were fusing, but pt feels this pain is more due to core weakness. Prior Treatments and Tests Multiple PT visits secondary to TKA, LE weakness, shoulder pain Personal Factors Other Personal Factors That May Effect Psoriatic arthritis Therapy/Recovery PT-OP-C Subjective Start: 05/10/20 13:35 Freq: Status: Active Protocol: Document 08/27/20 11:16 DCW (Rec: 08/27/20 12:01 DCW [id number]) OP-PT Subjective Patient Comments Patient Comments Pt reports his back is doing pretty well today. PT-OP-F Manual Assessment Start: 05/10/20 13:35 Freq: Status: Active Protocol: Document 07/09/20 10:30 DCW (Rec: 07/09/20 10:46 DCW [id number]) Manual Assessments Soft Tissue Assessment Soft Tissue Mobility Assessment Moderate tone along left-sided lumbar paraspinals, left QL, left adductors, and bilateral posterior hip Joint Mobility Assessment Joint Mobility Assessment Hypomobility of lumbar spine, both during movement and with palpation PT-OP-K Range of Motion Start: 05/10/20 13:35 Freq: Status: Active Protocol: Document 07/09/20 10:30 DCW (Rec: 07/09/20 10:46 DCW [id number]) Lumbar Spine Range of Motion Lumbar Spine Active Degrees Testing Position Standing Flexion 45 Extension 15 Lateral Flexion Left 56 Lateral Flexion Right 58 ROM Limitations Soft Tissue Tightness,Bony Restriction,Pain Comments Lateral flexion measured in cm from finger tips to floor PT-OP-L Special Tests Start: 05/10/20 13:35 Freq: Status: Active Protocol: Document 07/09/20 10:30 DCW (Rec: 07/09/20 10:46 DCW [id number]) Special Tests Lumbar Spine Special Tests Torsion Test Results Negative Vertical Spine Loading Test Results Negative A-P Shearing Test Results Negative Straight Leg Raise Test Results Hamstring stiffness R: 64?, L: 66? Standing Flexion Test Results Stiffness Slump Test Results Negative Passive Neck Flexion Test Results Negative PT-OP-M Strength Start: 05/10/20 13:35 Freq: Status: Active Protocol: Document 07/09/20 10:30 DCW (Rec: 07/09/20 10:46 DCW [id number]) Trunk Strength Trunk Manual Muscle Testing Core Stabilization Pt improved ability with dawson and holding TrA, 4 -/5 PT-OP-Q Treatments Start: 05/10/20 13:35 Freq: Status: Active Protocol: Document 08/27/20 11:16 DCW (Rec: 08/27/20 12:01 DCW [id number]) Gym Equipment Therapeutic Ball Resisted trunk rotation Exercise Details Resisted Trunk Rotation Ball Size/Color Green - 65 cm Lv 3 T-band Body Position Sitting Pelvic tilts/circles Exercise Details Pelvic tilts/circles Ball Size/Color Green - 65 cm Body Position Sitting Comments Use mirror for feedback Manual Therapy Treatment Soft Tissue Mobilization 3 Body Location B Psoas Mobilization Type Strumming,Sustained Pressure Intensity/Depth Moderate 2 Body Location B Piriformis Mobilization Type Sustained Pressure Intensity/Depth Deep Body Position Sidelying 1 Body Location B lumbar paraspinals Mobilization Type Strumming,Sustained Pressure Intensity/Depth Moderate Body Position Sidelying Joint Mobilizations 1 Joint Lumbar vertebrae Direction P->A PT-OP-T Assessment and Plan Start: 05/10/20 13:35 Freq: Status: Active Protocol: Document 08/27/20 11:16 DCW (Rec: 08/27/20 12:01 DCW [id number]) Physical Therapy Assessment Impairments Impairments Activity Tolerance,Functional Activities,Functional Mobility ,Pain,Posture,ROM,Strength Goals Four Impairment Pt displays limited lumbar ROM [facility] Goal (LTG) Lumbar flexion and extension to 50? 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 LTG Duration 09/06/20 One Impairment Pt does not have appropriate home exercise program Short Term Goal (STG) Pt to be independent and compliant with an appropriate HEP STG Duration 08/09/20 Assessment Summary Assessment Pt overall feeling better today, still some wincing when rolling on plinth. Physical Therapy Plan Frequency and Duration Frequency of Treatment 2x/Week Duration of Treatment two months Plan of Care Start Date 07/09/20 Plan of Care End Date 09/06/20 Therapeutic Interventions Therapeutic Interventions Home Exercise Program,Joint Mobilizations,Manual Therapy, Patient/Caregiver Education, Self-Care/Home Management,Soft Tissue Mobilization, Therapeutic Activities, Therapeutic Exercises Modalities Cold Pack/Ice Massage,Electric Stimulation,Hot Packs, Ultrasound Next Visit Focus/Plan Next Note Type Treatment Note Next Visit Plan Core strengthening, STM, joint mobilizations
--- NOTE | 2020-08-29 16:00 | PT.OTN ---
Current Diagnoses Other chronic pain (08/29/20) Stiffness of other specified joint, not elsewhere classified (08/29/20) Low back pain (08/29/20) Physical Therapy Treatment Note PT-OP-A Visit Information Start: 05/10/20 13:35 Freq: Status: Active Protocol: Document 08/29/20 15:15 DCW (Rec: 08/29/20 16:00 DCW [id number]) Out-Patient Physical Therapy Visit Information Visit Information Visit Type Treatment Note Visit Start Time 15:15 Visit Stop Time 16:00 Total Visit Minutes 45 Visit Number 23 Number of [employer]URN Visits 0 Evaluation Information Evaluation Date 05/10/20 PT-OP-B Current Condition Start: 05/10/20 13:35 Freq: Status: Active Protocol: Document 05/10/20 11:15 DCW (Rec: 05/10/20 13:48 DCW [id number]) Current Condition History of Current Condition Onset Date 4-5 months Current Complaints Low back pain/stiffness later in the day History of Current Condition Pt is a 75 year old male well known to this clinic presenting with a 4-5 month history of worsening low back pain. Pt notes his pain worsens throughout the day, but improves with rest. Notes that after walking more than ~ 1/2 mile, it hurts so much that he is unable to stand up straight. He is typically really sore when he gets to bed at night, and if he has to get up in the middie of the night to use the bathroom, it 's really painful, but then by the time morning comes and he gets up, he feels much better. He reports that he was told a number of years ago that his x-rays showed his discs were fusing, but pt feels this pain is more due to core weakness. Prior Treatments and Tests Multiple PT visits secondary to TKA, LE weakness, shoulder pain Personal Factors Other Personal Factors That May Effect Psoriatic arthritis Therapy/Recovery PT-OP-C Subjective Start: 05/10/20 13:35 Freq: Status: Active Protocol: Document 08/29/20 15:15 DCW (Rec: 08/29/20 16:00 DCW [id number]) OP-PT Subjective Patient Comments Patient Comments Pt feels like he is improving overall, notes he is able to walk upright for a longer period of time. PT-OP-F Manual Assessment Start: 05/10/20 13:35 Freq: Status: Active Protocol: Document 07/09/20 10:30 DCW (Rec: 07/09/20 10:46 DCW [id number]) Manual Assessments Soft Tissue Assessment Soft Tissue Mobility Assessment Moderate tone along left-sided lumbar paraspinals, left QL, left adductors, and bilateral posterior hip Joint Mobility Assessment Joint Mobility Assessment Hypomobility of lumbar spine, both during movement and with palpation PT-OP-K Range of Motion Start: 05/10/20 13:35 Freq: Status: Active Protocol: Document 07/09/20 10:30 DCW (Rec: 07/09/20 10:46 DCW [id number]) Lumbar Spine Range of Motion Lumbar Spine Active Degrees Testing Position Standing Flexion 45 Extension 15 Lateral Flexion Left 56 Lateral Flexion Right 58 ROM Limitations Soft Tissue Tightness,Bony Restriction,Pain Comments Lateral flexion measured in cm from finger tips to floor PT-OP-L Special Tests Start: 05/10/20 13:35 Freq: Status: Active Protocol: Document 07/09/20 10:30 DCW (Rec: 07/09/20 10:46 DCW [id number]) Special Tests Lumbar Spine Special Tests Torsion Test Results Negative Vertical Spine Loading Test Results Negative A-P Shearing Test Results Negative Straight Leg Raise Test Results Hamstring stiffness R: 64?, L: 66? Standing Flexion Test Results Stiffness Slump Test Results Negative Passive Neck Flexion Test Results Negative PT-OP-M Strength Start: 05/10/20 13:35 Freq: Status: Active Protocol: Document 07/09/20 10:30 DCW (Rec: 07/09/20 10:46 DCW [id number]) Trunk Strength Trunk Manual Muscle Testing Core Stabilization Pt improved ability with dawson and holding TrA, 4 -/5 PT-OP-Q Treatments Start: 05/10/20 13:35 Freq: Status: Active Protocol: Document 08/29/20 15:15 DCW (Rec: 08/29/20 16:00 DCW [id number]) Gym Equipment Therapeutic Ball Resisted trunk rotation Exercise Details Resisted Trunk Rotation Ball Size/Color Green - 65 cm Lv 3 T-band Body Position Sitting Pelvic tilts/circles Exercise Details Pelvic tilts/circles Ball Size/Color Green - 65 cm Body Position Sitting Comments Use mirror for feedback Therapeutic Exercises Standing Exercises 1 Standing Exercise Name Hip hiking Side bilateral Equipment Used 6 step, rail Manual Therapy Treatment Soft Tissue Mobilization 3 Body Location B Psoas Mobilization Type Strumming,Sustained Pressure Intensity/Depth Moderate 2 Body Location B Piriformis Mobilization Type Sustained Pressure Intensity/Depth Deep Body Position Sidelying 1 Body Location B lumbar paraspinals Mobilization Type Strumming,Sustained Pressure Intensity/Depth Moderate Body Position Sidelying Joint Mobilizations 1 Joint Lumbar vertebrae Direction P->A PT-OP-T Assessment and Plan Start: 05/10/20 13:35 Freq: Status: Active Protocol: Document 08/29/20 15:15 DCW (Rec: 08/29/20 16:00 DCW [id number]) Physical Therapy Assessment Impairments Impairments Activity Tolerance,Functional Activities,Functional Mobility ,Pain,Posture,ROM,Strength Goals Four Impairment Pt displays limited lumbar ROM [facility] Goal (LTG) Lumbar flexion and extension to 50? 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 LTG Duration 09/06/20 One Impairment Pt does not have appropriate home exercise program Short Term Goal (STG) Pt to be independent and compliant with an appropriate HEP STG Duration 08/09/20 Assessment Summary Assessment Pt tolerated treatment well today, demonstrating improvement with lumbar mobility. Physical Therapy Plan Frequency and Duration Frequency of Treatment 2x/Week Duration of Treatment two months Plan of Care Start Date 07/09/20 Plan of Care End Date 09/06/20 Therapeutic Interventions Therapeutic Interventions Home Exercise Program,Joint Mobilizations,Manual Therapy, Patient/Caregiver Education, Self-Care/Home Management,Soft Tissue Mobilization, Therapeutic Activities, Therapeutic Exercises Modalities Cold Pack/Ice Massage,Electric Stimulation,Hot Packs, Ultrasound Next Visit Focus/Plan Next Note Type Treatment Note Next Visit Plan Core strengthening, STM, joint mobilizations
--- NOTE | 2020-09-02 15:13 | PT.OTN ---
Current Diagnoses Other chronic pain (09/02/20) Stiffness of other specified joint, not elsewhere classified (09/02/20) Low back pain (09/02/20) Physical Therapy Treatment Note PT-OP-A Visit Information Start: 05/10/20 13:35 Freq: Status: Active Protocol: Document 09/02/20 14:30 DCW (Rec: 09/02/20 15:13 DCW [id number]) Out-Patient Physical Therapy Visit Information Visit Information Visit Type Treatment Note Visit Start Time 14:30 Visit Stop Time 15:15 Total Visit Minutes 45 Visit Number 24 Number of LOAN REVIEW ANALYST Visits 0 Evaluation Information Evaluation Date 05/10/20 PT-OP-B Current Condition Start: 05/10/20 13:35 Freq: Status: Active Protocol: Document 05/10/20 11:15 DCW (Rec: 05/10/20 13:48 DCW [id number]) Current Condition History of Current Condition Onset Date 4-5 months Current Complaints Low back pain/stiffness later in the day History of Current Condition Pt is a 75 year old male well known to this clinic presenting with a 4-5 month history of worsening low back pain. Pt notes his pain worsens throughout the day, but improves with rest. Notes that after walking more than ~ 1/2 mile, it hurts so much that he is unable to stand up straight. He is typically really sore when he gets to bed at night, and if he has to get up in the middie of the night to use the bathroom, it 's really painful, but then by the time morning comes and he gets up, he feels much better. He reports that he was told a number of years ago that his x-rays showed his discs were fusing, but pt feels this pain is more due to core weakness. Prior Treatments and Tests Multiple PT visits secondary to TKA, LE weakness, shoulder pain Personal Factors Other Personal Factors That May Effect Psoriatic arthritis Therapy/Recovery PT-OP-C Subjective Start: 05/10/20 13:35 Freq: Status: Active Protocol: Document 09/02/20 14:30 DCW (Rec: 09/02/20 15:13 DCW [id number]) OP-PT Subjective Patient Comments Patient Comments I had an early meeting today, so I didn't do my exercises yet today. PT-OP-F Manual Assessment Start: 05/10/20 13:35 Freq: Status: Active Protocol: Document 07/09/20 10:30 DCW (Rec: 07/09/20 10:46 DCW [id number]) Manual Assessments Soft Tissue Assessment Soft Tissue Mobility Assessment Moderate tone along left-sided lumbar paraspinals, left QL, left adductors, and bilateral posterior hip Joint Mobility Assessment Joint Mobility Assessment Hypomobility of lumbar spine, both during movement and with palpation PT-OP-K Range of Motion Start: 05/10/20 13:35 Freq: Status: Active Protocol: Document 07/09/20 10:30 DCW (Rec: 07/09/20 10:46 DCW [id number]) Lumbar Spine Range of Motion Lumbar Spine Active Degrees Testing Position Standing Flexion 45 Extension 15 Lateral Flexion Left 56 Lateral Flexion Right 58 ROM Limitations Soft Tissue Tightness,Bony Restriction,Pain Comments Lateral flexion measured in cm from finger tips to floor PT-OP-L Special Tests Start: 05/10/20 13:35 Freq: Status: Active Protocol: Document 07/09/20 10:30 DCW (Rec: 07/09/20 10:46 DCW [id number]) Special Tests Lumbar Spine Special Tests Torsion Test Results Negative Vertical Spine Loading Test Results Negative A-P Shearing Test Results Negative Straight Leg Raise Test Results Hamstring stiffness R: 64?, L: 66? Standing Flexion Test Results Stiffness Slump Test Results Negative Passive Neck Flexion Test Results Negative PT-OP-M Strength Start: 05/10/20 13:35 Freq: Status: Active Protocol: Document 07/09/20 10:30 DCW (Rec: 07/09/20 10:46 DCW [id number]) Trunk Strength Trunk Manual Muscle Testing Core Stabilization Pt improved ability with dawson and holding TrA, 4 -/5 PT-OP-Q Treatments Start: 05/10/20 13:35 Freq: Status: Active Protocol: Document 09/02/20 14:30 DCW (Rec: 09/02/20 15:13 DCW [id number]) Gym Equipment Therapeutic Ball Resisted trunk rotation Exercise Details Resisted Trunk Rotation Ball Size/Color Green - 65 cm Lv 3 T-band Body Position Sitting Pelvic tilts/circles Exercise Details Pelvic tilts/circles Ball Size/Color Green - 65 cm Body Position Sitting Comments Use mirror for feedback Therapeutic Exercises Standing Exercises 1 Standing Exercise Name Hip hiking Side bilateral Equipment Used 6 step, rail Manual Therapy Treatment Soft Tissue Mobilization 3 Body Location B Psoas Mobilization Type Strumming,Sustained Pressure Intensity/Depth Moderate 2 Body Location B Piriformis Mobilization Type Sustained Pressure Intensity/Depth Deep Body Position Sidelying 1 Body Location B lumbar paraspinals Mobilization Type Strumming,Sustained Pressure Intensity/Depth Moderate Body Position Sidelying Joint Mobilizations 1 Joint Lumbar vertebrae Direction P->A PT-OP-T Assessment and Plan Start: 05/10/20 13:35 Freq: Status: Active Protocol: Document 09/02/20 14:30 DCW (Rec: 09/02/20 15:13 DCW [id number]) Physical Therapy Assessment Impairments Impairments Activity Tolerance,Functional Activities,Functional Mobility ,Pain,Posture,ROM,Strength Goals Four Impairment Pt displays limited lumbar ROM Detention Goal (LTG) Lumbar flexion and extension to 50? 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 LTG Duration 09/06/20 One Impairment Pt does not have appropriate home exercise program Short Term Goal (STG) Pt to be independent and compliant with an appropriate HEP STG Duration 08/09/20 Assessment Summary Assessment Pt slightly more sore today with his mobility, but overall continues to show improvement . Physical Therapy Plan Frequency and Duration Frequency of Treatment 2x/Week Duration of Treatment two months Plan of Care Start Date 07/09/20 Plan of Care End Date 09/06/20 Therapeutic Interventions Therapeutic Interventions Home Exercise Program,Joint Mobilizations,Manual Therapy, Patient/Caregiver Education, Self-Care/Home Management,Soft Tissue Mobilization, Therapeutic Activities, Therapeutic Exercises Modalities Cold Pack/Ice Massage,Electric Stimulation,Hot Packs, Ultrasound Next Visit Focus/Plan Next Note Type Treatment Note Next Visit Plan Core strengthening, STM, joint mobilizations
--- NOTE | 2020-09-05 11:14 | PT.OTN ---
Current Diagnoses Other chronic pain (09/05/20) Stiffness of other specified joint, not elsewhere classified (09/05/20) Low back pain (09/05/20) Physical Therapy Treatment Note PT-OP-A Visit Information Start: 05/10/20 13:35 Freq: Status: Active Protocol: Document 09/05/20 10:30 DCW (Rec: 09/05/20 11:14 DCW [id number]) Out-Patient Physical Therapy Visit Information Visit Information Visit Type Progress Note Visit Start Time 10:30 Visit Stop Time 11:15 Total Visit Minutes 45 Visit Number 25 Number of STAFF VETERINARIAN Visits 0 Evaluation Information Evaluation Date 05/10/20 PT-OP-B Current Condition Start: 05/10/20 13:35 Freq: Status: Active Protocol: Document 05/10/20 11:15 DCW (Rec: 05/10/20 13:48 DCW [id number]) Current Condition History of Current Condition Onset Date 4-5 months Current Complaints Low back pain/stiffness later in the day History of Current Condition Pt is a 75 year old male well known to this clinic presenting with a 4-5 month history of worsening low back pain. Pt notes his pain worsens throughout the day, but improves with rest. Notes that after walking more than ~ 1/2 mile, it hurts so much that he is unable to stand up straight. He is typically really sore when he gets to bed at night, and if he has to get up in the middie of the night to use the bathroom, it 's really painful, but then by the time morning comes and he gets up, he feels much better. He reports that he was told a number of years ago that his x-rays showed his discs were fusing, but pt feels this pain is more due to core weakness. Prior Treatments and Tests Multiple PT visits secondary to TKA, LE weakness, shoulder pain Personal Factors Other Personal Factors That May Effect Psoriatic arthritis Therapy/Recovery PT-OP-C Subjective Start: 05/10/20 13:35 Freq: Status: Active Protocol: Document 09/05/20 10:30 DCW (Rec: 09/05/20 11:14 DCW [id number]) OP-PT Subjective Patient Comments Patient Comments I was walking in this morning , and I was standing nice and straight, and that's thanks to you. PT-OP-F Manual Assessment Start: 05/10/20 13:35 Freq: Status: Active Protocol: Document 09/05/20 10:30 DCW (Rec: 09/05/20 10:54 DCW [id number]) Manual Assessments Soft Tissue Assessment Soft Tissue Mobility Assessment Moderate tone along left-sided lumbar paraspinals, left QL, left adductors, and bilateral posterior hip Joint Mobility Assessment Joint Mobility Assessment Mild hypomobility of lumbar spine, with movement PT-OP-K Range of Motion Start: 05/10/20 13:35 Freq: Status: Active Protocol: Document 09/05/20 10:30 DCW (Rec: 09/05/20 10:54 DCW [id number]) Lumbar Spine Range of Motion Lumbar Spine Active Degrees Testing Position Standing Flexion 50 Extension 15 Lateral Flexion Left 54 Lateral Flexion Right 53 ROM Limitations Soft Tissue Tightness,Bony Restriction Comments Lateral flexion measured in cm from finger tips to floor PT-OP-L Special Tests Start: 05/10/20 13:35 Freq: Status: Active Protocol: Document 09/05/20 10:30 DCW (Rec: 09/05/20 10:54 DCW [id number]) Special Tests Lumbar Spine Special Tests Torsion Test Results Negative Vertical Spine Loading Test Results Negative A-P Shearing Test Results Negative Straight Leg Raise Test Results Hamstring stiffness R: 74?, L: 65? Standing Flexion Test Results Stiffness Slump Test Results Negative Passive Neck Flexion Test Results Negative PT-OP-M Strength Start: 05/10/20 13:35 Freq: Status: Active Protocol: Document 09/05/20 10:30 DCW (Rec: 09/05/20 10:54 DCW [id number]) Trunk Strength Trunk Manual Muscle Testing Core Stabilization Pt improved ability with dawson and holding TrA, 4 -/5 PT-OP-Q Treatments Start: 05/10/20 13:35 Freq: Status: Active Protocol: Document 09/05/20 10:30 DCW (Rec: 09/05/20 11:14 DCW [id number]) Gym Equipment Therapeutic Ball Pelvic tilts/circles Exercise Details Pelvic tilts/circles Ball Size/Color Green - 65 cm Body Position Sitting Comments Use mirror for feedback Therapeutic Exercises Supine Exercises 1 Supine Exercise Name Piriformis stretch Side bilateral Hamstring Stretch Supine Exercise Name HS stretch Side bilateral Manual Therapy Treatment Soft Tissue Mobilization 3 Body Location B Psoas Mobilization Type Strumming,Sustained Pressure Intensity/Depth Moderate 2 Body Location B Piriformis Mobilization Type Sustained Pressure Intensity/Depth Deep Body Position Sidelying 1 Body Location B lumbar paraspinals Mobilization Type Strumming,Sustained Pressure Intensity/Depth Moderate Body Position Sidelying Joint Mobilizations 1 Joint Lumbar vertebrae Direction P->A Other Other Manual Treatments Testing PT-OP-T Assessment and Plan Start: 05/10/20 13:35 Freq: Status: Active Protocol: Document 09/05/20 10:30 DCW (Rec: 09/05/20 11:14 DCW [id number]) Physical Therapy Assessment Impairments Impairments Activity Tolerance,Functional Activities,Functional Mobility ,Pain,Posture,ROM,Strength Goals Four Impairment Pt displays limited lumbar ROM Senior Living Goal (LTG) Lumbar flexion and extension to 50? 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 LTG Duration 11/05/20 One Impairment Pt does not have appropriate home exercise program Short Term Goal (STG) Pt to be independent and compliant with an appropriate HEP STG Duration 10/06/20 Assessment Summary Assessment Pt showing some good improvement with lumbar mobility and overall muscle tone. Pt admits it makes me feel like I need to constantly be doing exercises to keep my back moving. Continued therapy should be beneficial to improve mobility and decrease pain. Physical Therapy Plan Frequency and Duration Frequency of Treatment 2x/Week Duration of Treatment two months Plan of Care Start Date 09/05/20 Plan of Care End Date 11/05/20 Therapeutic Interventions Therapeutic Interventions Home Exercise Program,Joint Mobilizations,Manual Therapy, Patient/Caregiver Education, Self-Care/Home Management,Soft Tissue Mobilization, Therapeutic Activities, Therapeutic Exercises Modalities Cold Pack/Ice Massage,Electric Stimulation,Hot Packs, Ultrasound Next Visit Focus/Plan Next Note Type Treatment Note Next Visit Plan Core strengthening, STM, joint mobilizations
--- NOTE | 2020-09-05 11:15 | PT.OPPOC ---
Physical, Occupational & Speech Therapy At [facility] Current Diagnoses Other chronic pain (09/05/20) Stiffness of other specified joint, not elsewhere classified (09/05/20) Low back pain (09/05/20) Visit Care Team Role Provider Type Kavita Aranda MD Primary Care Provider Non-Staff Specialty: Internal Medicine Address: [address] [place] [address], [address], [place], [address] Email: Franck Ugarte MD Attending Provider Non-Staff Referring Provider Specialty: Internal Medicine Address: [id number] [place] [address], [address], [place], [address] Email: Plan Of Care PT-OP-T Assessment and Plan Start: 05/10/20 13:35 Freq: Status: Active Protocol: Document 09/05/20 10:30 DCW (Rec: 09/05/20 11:14 DCW [id number]) Physical Therapy Assessment Impairments Impairments Activity Tolerance,Functional Activities,Functional Mobility ,Pain,Posture,ROM,Strength Goals Four Impairment Pt displays limited lumbar ROM Traffic Engineering Technician Goal (LTG) Lumbar flexion and extension to 50? 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 LTG Duration 11/05/20 One Impairment Pt does not have appropriate home exercise program Short Term Goal (STG) Pt to be independent and compliant with an appropriate HEP STG Duration 10/06/20 Assessment Summary Assessment Pt showing some good improvement with lumbar mobility and overall muscle tone. Pt admits it makes me feel like I need to constantly be doing exercises to keep my back moving. Continued therapy should be beneficial to improve mobility and decrease pain. Physical Therapy Plan Frequency and Duration Frequency of Treatment 2x/Week Duration of Treatment two months Plan of Care Start Date 09/05/20 Plan of Care End Date 11/05/20 Therapeutic Interventions Therapeutic Interventions Home Exercise Program,Joint Mobilizations,Manual Therapy, Patient/Caregiver Education, Self-Care/Home Management,Soft Tissue Mobilization, Therapeutic Activities, Therapeutic Exercises Modalities Cold Pack/Ice Massage,Electric Stimulation,Hot Packs, Ultrasound Next Visit Focus/Plan Next Note Type Treatment Note Next Visit Plan Core strengthening, STM, joint mobilizations Plan of Care Dates Plan of Care Start Date 09/05/20 Plan of Care End Date 11/05/20 Electronically Signed by: Evaristo Carvalho, PT 09/05/20 [id number] Please Sign and Return: I have reviewed this Plan of Care and certify that the skilled therapy services above are required to meet the patient?s needs. Physician Signature Date Printed Name and Credentials Clinical Instructor Signature Printed Name and Credentials
--- NOTE | 2020-09-10 11:13 | PT.OTN ---
Current Diagnoses Other chronic pain (09/10/20) Stiffness of other specified joint, not elsewhere classified (09/10/20) Low back pain (09/10/20) Physical Therapy Treatment Note PT-OP-A Visit Information Start: 05/10/20 13:35 Freq: Status: Active Protocol: Document 09/10/20 10:30 DCW (Rec: 09/10/20 11:13 DCW [id number]) Out-Patient Physical Therapy Visit Information Visit Information Visit Type Treatment Note Visit Start Time 10:30 Visit Stop Time 11:15 Total Visit Minutes 45 Visit Number 26 Number of MATERIAL PLANNING ANALYST Visits 0 Evaluation Information Evaluation Date 05/10/20 PT-OP-B Current Condition Start: 05/10/20 13:35 Freq: Status: Active Protocol: Document 05/10/20 11:15 DCW (Rec: 05/10/20 13:48 DCW [id number]) Current Condition History of Current Condition Onset Date 4-5 months Current Complaints Low back pain/stiffness later in the day History of Current Condition Pt is a 75 year old male well known to this clinic presenting with a 4-5 month history of worsening low back pain. Pt notes his pain worsens throughout the day, but improves with rest. Notes that after walking more than ~ 1/2 mile, it hurts so much that he is unable to stand up straight. He is typically really sore when he gets to bed at night, and if he has to get up in the middie of the night to use the bathroom, it 's really painful, but then by the time morning comes and he gets up, he feels much better. He reports that he was told a number of years ago that his x-rays showed his discs were fusing, but pt feels this pain is more due to core weakness. 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 PT-OP-F Manual Assessment Start: 05/10/20 13:35 Freq: Status: Active Protocol: Document 09/05/20 10:30 DCW (Rec: 09/05/20 10:54 DCW [id number]) Manual Assessments Soft Tissue Assessment Soft Tissue Mobility Assessment Moderate tone along left-sided lumbar paraspinals, left QL, left adductors, and bilateral posterior hip Joint Mobility Assessment Joint Mobility Assessment Mild hypomobility of lumbar spine, with movement PT-OP-K Range of Motion Start: 05/10/20 13:35 Freq: Status: Active Protocol: Document 09/05/20 10:30 DCW (Rec: 09/05/20 10:54 DCW [id number]) Lumbar Spine Range of Motion Lumbar Spine Active Degrees Testing Position Standing Flexion 50 Extension 15 Lateral Flexion Left 54 Lateral Flexion Right 53 ROM Limitations Soft Tissue Tightness,Bony Restriction Comments Lateral flexion measured in cm from finger tips to floor PT-OP-L Special Tests Start: 05/10/20 13:35 Freq: Status: Active Protocol: Document 09/05/20 10:30 DCW (Rec: 09/05/20 10:54 DCW [id number]) Special Tests Lumbar Spine Special Tests Torsion Test Results Negative Vertical Spine Loading Test Results Negative A-P Shearing Test Results Negative Straight Leg Raise Test Results Hamstring stiffness R: 74?, L: 65? Standing Flexion Test Results Stiffness Slump Test Results Negative Passive Neck Flexion Test Results Negative PT-OP-M Strength Start: 05/10/20 13:35 Freq: Status: Active Protocol: Document 09/05/20 10:30 DCW (Rec: 09/05/20 10:54 DCW [id number]) Trunk Strength Trunk Manual Muscle Testing Core Stabilization Pt improved ability with dawson and holding TrA, 4 -/5 PT-OP-Q Treatments Start: 05/10/20 13:35 Freq: Status: Active Protocol: Document 09/10/20 10:30 DCW (Rec: 09/10/20 11:13 DCW [id number]) Gym Equipment Therapeutic Ball Resisted trunk rotation Exercise Details Resisted Trunk Rotation Ball Size/Color Green - 65 cm Lv 3 T-band Body Position Sitting Pelvic tilts/circles Exercise Details Pelvic tilts/circles Ball Size/Color Green - 65 cm Body Position Sitting Comments Use mirror for feedback Therapeutic Exercises Supine Exercises 1 Supine Exercise Name Piriformis stretch Side bilateral Hamstring Stretch Supine Exercise Name HS stretch Side bilateral Manual Therapy Treatment Soft Tissue Mobilization 3 Body Location B Psoas Mobilization Type Strumming,Sustained Pressure Intensity/Depth Moderate 2 Body Location B Piriformis Mobilization Type Sustained Pressure Intensity/Depth Deep Body Position Sidelying 1 Body Location B lumbar paraspinals Mobilization Type Strumming,Sustained Pressure Intensity/Depth Moderate Body Position Sidelying Joint Mobilizations 1 Joint Lumbar vertebrae Direction P->A PT-OP-T Assessment and Plan Start: 05/10/20 13:35 Freq: Status: Active Protocol: Document 09/10/20 10:30 DCW (Rec: 09/10/20 11:13 DCW [id number]) Physical Therapy Assessment Impairments Impairments Activity Tolerance,Functional Activities,Functional Mobility ,Pain,Posture,ROM,Strength Goals Four Impairment Pt displays limited lumbar ROM Halfway Goal (LTG) Lumbar flexion and extension to 50? 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 LTG Duration 11/05/20 One Impairment Pt does not have appropriate home exercise program Short Term Goal (STG) Pt to be independent and compliant with an appropriate HEP STG Duration 10/06/20 Assessment Summary Assessment Pt feeling better overall today, noted he got up from the table after treatment with minimal discomfort. Physical Therapy Plan Frequency and Duration Frequency of Treatment 2x/Week Duration of Treatment two months Plan of Care Start Date 09/05/20 Plan of Care End Date 11/05/20 Therapeutic Interventions Therapeutic Interventions Home Exercise Program,Joint Mobilizations,Manual Therapy, Patient/Caregiver Education, Self-Care/Home Management,Soft Tissue Mobilization, Therapeutic Activities, Therapeutic Exercises Modalities Cold Pack/Ice Massage,Electric Stimulation,Hot Packs, Ultrasound Next Visit Focus/Plan Next Note Type Treatment Note Next Visit Plan Core strengthening, STM, joint mobilizations
--- NOTE | 2020-09-18 11:17 | PT.OTN ---
Current Diagnoses Other chronic pain (09/18/20) Stiffness of other specified joint, not elsewhere classified (09/18/20) Low back pain (09/18/20) Physical Therapy Treatment Note PT-OP-A Visit Information Start: 05/10/20 13:35 Freq: Status: Active Protocol: Document 09/18/20 10:30 DCW (Rec: 09/18/20 11:17 DCW [id number]) Out-Patient Physical Therapy Visit Information Visit Information Visit Type Treatment Note Visit Start Time 10:30 Visit Stop Time 11:15 Total Visit Minutes 45 Visit Number 27 Number of RAG WASHER Visits 0 Evaluation Information Evaluation Date 05/10/20 PT-OP-B Current Condition Start: 05/10/20 13:35 Freq: Status: Active Protocol: Document 05/10/20 11:15 DCW (Rec: 05/10/20 13:48 DCW [id number]) Current Condition History of Current Condition Onset Date 4-5 months Current Complaints Low back pain/stiffness later in the day History of Current Condition Pt is a 75 year old male well known to this clinic presenting with a 4-5 month history of worsening low back pain. Pt notes his pain worsens throughout the day, but improves with rest. Notes that after walking more than ~ 1/2 mile, it hurts so much that he is unable to stand up straight. He is typically really sore when he gets to bed at night, and if he has to get up in the middie of the night to use the bathroom, it 's really painful, but then by the time morning comes and he gets up, he feels much better. He reports that he was told a number of years ago that his x-rays showed his discs were fusing, but pt feels this pain is more due to core weakness. Prior Treatments and Tests Multiple PT visits secondary to TKA, LE weakness, shoulder pain Personal Factors Other Personal Factors That May Effect Psoriatic arthritis Therapy/Recovery PT-OP-C Subjective Start: 05/10/20 13:35 Freq: Status: Active Protocol: Document 09/18/20 10:30 DCW (Rec: 09/18/20 11:17 DCW [id number]) OP-PT Subjective Patient Comments Patient Comments Pt still feeling like his back is slowly improving. PT-OP-F Manual Assessment Start: 11/06/20 13:35 Freq: Status: Active Protocol: Document 09/05/20 10:30 DCW (Rec: 09/05/20 10:54 DCW [id number]) Manual Assessments Soft Tissue Assessment Soft Tissue Mobility Assessment Moderate tone along left-sided lumbar paraspinals, left QL, left adductors, and bilateral posterior hip Joint Mobility Assessment Joint Mobility Assessment Mild hypomobility of lumbar spine, with movement PT-OP-K Range of Motion Start: 05/10/20 13:35 Freq: Status: Active Protocol: Document 09/05/20 10:30 DCW (Rec: 09/05/20 10:54 DCW [id number]) Lumbar Spine Range of Motion Lumbar Spine Active Degrees Testing Position Standing Flexion 50 Extension 15 Lateral Flexion Left 54 Lateral Flexion Right 53 ROM Limitations Soft Tissue Tightness,Bony Restriction Comments Lateral flexion measured in cm from finger tips to floor PT-OP-L Special Tests Start: 05/10/20 13:35 Freq: Status: Active Protocol: Document 09/05/20 10:30 DCW (Rec: 09/05/20 10:54 DCW [id number]) Special Tests Lumbar Spine Special Tests Torsion Test Results Negative Vertical Spine Loading Test Results Negative A-P Shearing Test Results Negative Straight Leg Raise Test Results Hamstring stiffness R: 74?, L: 65? Standing Flexion Test Results Stiffness Slump Test Results Negative Passive Neck Flexion Test Results Negative PT-OP-M Strength Start: 05/10/20 13:35 Freq: Status: Active Protocol: Document 09/05/20 10:30 DCW (Rec: 09/05/20 10:54 DCW [id number]) Trunk Strength Trunk Manual Muscle Testing Core Stabilization Pt improved ability with dawson and holding TrA, 4 -/5 PT-OP-Q Treatments Start: 05/10/20 13:35 Freq: Status: Active Protocol: Document 09/18/20 10:30 DCW (Rec: 09/18/20 11:17 DCW [id number]) Gym Equipment Therapeutic Ball Resisted trunk rotation Exercise Details Resisted Trunk Rotation Ball Size/Color Green - 65 cm Lv 3 T-band Body Position Sitting Pelvic tilts/circles Exercise Details Pelvic tilts/circles Ball Size/Color Green - 65 cm Body Position Sitting Comments Use mirror for feedback Therapeutic Exercises Standing Exercises 1 Standing Exercise Name Hip hiking Side bilateral Equipment Used 6 step, rail Manual Therapy Treatment Soft Tissue Mobilization 3 Body Location B Psoas Mobilization Type Strumming,Sustained Pressure Intensity/Depth Moderate 2 Body Location B Piriformis Mobilization Type Sustained Pressure Intensity/Depth Deep Body Position Sidelying 1 Body Location B lumbar paraspinals Mobilization Type Strumming,Sustained Pressure Intensity/Depth Moderate Body Position Sidelying Joint Mobilizations 1 Joint Lumbar vertebrae Direction P->A PT-OP-T Assessment and Plan Start: 05/10/20 13:35 Freq: Status: Active Protocol: Document 09/18/20 10:30 DCW (Rec: 09/18/20 11:17 DCW [id number]) Physical Therapy Assessment Impairments Impairments Activity Tolerance,Functional Activities,Functional Mobility ,Pain,Posture,ROM,Strength Goals Four Impairment Pt displays limited lumbar ROM [facility] Goal (LTG) Lumbar flexion and extension to 50? 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 LTG Duration 11/05/20 One Impairment Pt does not have appropriate home exercise program Short Term Goal (STG) Pt to be independent and compliant with an appropriate HEP STG Duration 10/06/20 Assessment Summary Assessment Pt tolerating treatment well, continuing to show progress. Physical Therapy Plan Frequency and Duration Frequency of Treatment 2x/Week Duration of Treatment two months Plan of Care Start Date 09/05/20 Plan of Care End Date 11/05/20 Therapeutic Interventions Therapeutic Interventions Home Exercise Program,Joint Mobilizations,Manual Therapy, Patient/Caregiver Education, Self-Care/Home Management,Soft Tissue Mobilization, Therapeutic Activities, Therapeutic Exercises Modalities Cold Pack/Ice Massage,Electric Stimulation,Hot Packs, Ultrasound Next Visit Focus/Plan Next Note Type Treatment Note Next Visit Plan Core strengthening, STM, joint mobilizations
--- NOTE | 2020-09-20 11:16 | PT.OTN ---
Current Diagnoses Other chronic pain (09/20/20) Stiffness of other specified joint, not elsewhere classified (09/20/20) Low back pain (09/20/20) Physical Therapy Treatment Note PT-OP-A Visit Information Start: 05/10/20 13:35 Freq: Status: Active Protocol: Document 09/20/20 10:33 DCW (Rec: 09/20/20 11:16 DCW [id number]) Out-Patient Physical Therapy Visit Information Visit Information Visit Type Treatment Note Visit Start Time 10:33 Visit Stop Time 11:15 Total Visit Minutes 42 Visit Number 28 Number of HEAVY FORGER HELPER Visits 0 Evaluation Information Evaluation Date 05/10/20 PT-OP-B Current Condition Start: 05/10/20 13:35 Freq: Status: Active Protocol: Document 05/10/20 11:15 DCW (Rec: 05/10/20 13:48 DCW [id number]) Current Condition History of Current Condition Onset Date 4-5 months Current Complaints Low back pain/stiffness later in the day History of Current Condition Pt is a 75 year old male well known to this clinic presenting with a 4-5 month history of worsening low back pain. Pt notes his pain worsens throughout the day, but improves with rest. Notes that after walking more than ~ 1/2 mile, it hurts so much that he is unable to stand up straight. He is typically really sore when he gets to bed at night, and if he has to get up in the middie of the night to use the bathroom, it 's really painful, but then by the time morning comes and he gets up, he feels much better. He reports that he was told a number of years ago that his x-rays showed his discs were fusing, but pt feels this pain is more due to core weakness. Prior Treatments and Tests Multiple PT visits secondary to TKA, LE weakness, shoulder pain Personal Factors Other Personal Factors That May Effect Psoriatic arthritis Therapy/Recovery PT-OP-C Subjective Start: 05/10/20 13:35 Freq: Status: Active Protocol: Document 09/20/20 10:33 DCW (Rec: 09/20/20 11:16 DCW [id number]) OP-PT Subjective Patient Comments Patient Comments Pt feels that the hip hiking exercise on the steps has resulted in increased pain and swelling in his right knee, so he would prefer not performing that exercise anymore. PT-OP-F Manual Assessment Start: 05/10/20 13:35 Freq: Status: Active Protocol: Document 09/05/20 10:30 DCW (Rec: 09/05/20 10:54 DCW [id number]) Manual Assessments Soft Tissue Assessment Soft Tissue Mobility Assessment Moderate tone along left-sided lumbar paraspinals, left QL, left adductors, and bilateral posterior hip Joint Mobility Assessment Joint Mobility Assessment Mild hypomobility of lumbar spine, with movement PT-OP-K Range of Motion Start: 05/10/20 13:35 Freq: Status: Active Protocol: Document 09/05/20 10:30 DCW (Rec: 09/05/20 10:54 DCW [id number]) Lumbar Spine Range of Motion Lumbar Spine Active Degrees Testing Position Standing Flexion 50 Extension 15 Lateral Flexion Left 54 Lateral Flexion Right 53 ROM Limitations Soft Tissue Tightness,Bony Restriction Comments Lateral flexion measured in cm from finger tips to floor PT-OP-L Special Tests Start: 05/10/20 13:35 Freq: Status: Active Protocol: Document 09/05/20 10:30 DCW (Rec: 09/05/20 10:54 DCW [id number]) Special Tests Lumbar Spine Special Tests Torsion Test Results Negative Vertical Spine Loading Test Results Negative A-P Shearing Test Results Negative Straight Leg Raise Test Results Hamstring stiffness R: 74?, L: 65? Standing Flexion Test Results Stiffness Slump Test Results Negative Passive Neck Flexion Test Results Negative PT-OP-M Strength Start: 05/10/20 13:35 Freq: Status: Active Protocol: Document 09/05/20 10:30 DCW (Rec: 09/05/20 10:54 DCW [id number]) Trunk Strength Trunk Manual Muscle Testing Core Stabilization Pt improved ability with dawson and holding TrA, 4 -/5 PT-OP-Q Treatments Start: 05/10/20 13:35 Freq: Status: Active Protocol: Document 09/20/20 10:33 DCW (Rec: 09/20/20 11:16 DCW [id number]) Gym Equipment Therapeutic Ball Resisted trunk rotation Exercise Details Resisted Trunk Rotation Ball Size/Color Green - 65 cm Lv 3 T-band Body Position Sitting Pelvic tilts/circles Exercise Details Pelvic tilts/circles Ball Size/Color Green - 65 cm Body Position Sitting Comments Use mirror for feedback Therapeutic Exercises Supine Exercises 1 Supine Exercise Name Piriformis stretch Side bilateral Hamstring Stretch Supine Exercise Name HS stretch Side bilateral Manual Therapy Treatment Soft Tissue Mobilization 3 Body Location B Psoas Mobilization Type Strumming,Sustained Pressure Intensity/Depth Moderate 2 Body Location B Piriformis Mobilization Type Sustained Pressure Intensity/Depth Deep Body Position Sidelying 1 Body Location B lumbar paraspinals Mobilization Type Strumming,Sustained Pressure Intensity/Depth Moderate Body Position Sidelying Joint Mobilizations 1 Joint Lumbar vertebrae Direction P->A PT-OP-T Assessment and Plan Start: 05/10/20 13:35 Freq: Status: Active Protocol: Document 09/20/20 10:33 DCW (Rec: 09/20/20 11:16 DCW [id number]) Physical Therapy Assessment Impairments Impairments Activity Tolerance,Functional Activities,Functional Mobility ,Pain,Posture,ROM,Strength Goals Four Impairment Pt displays limited lumbar ROM Reconstructive Surgeon Goal (LTG) Lumbar flexion and extension to 50? 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 LTG Duration 11/05/20 One Impairment Pt does not have appropriate home exercise program Short Term Goal (STG) Pt to be independent and compliant with an appropriate HEP STG Duration 10/06/20 Assessment Summary Assessment Pt seeing slow but noticeable progress with his pain levels and lumbar mobility. Physical Therapy Plan Frequency and Duration Frequency of Treatment 2x/Week Duration of Treatment two months Plan of Care Start Date 09/05/20 Plan of Care End Date 11/05/20 Therapeutic Interventions Therapeutic Interventions Home Exercise Program,Joint Mobilizations,Manual Therapy, Patient/Caregiver Education, Self-Care/Home Management,Soft Tissue Mobilization, Therapeutic Activities, Therapeutic Exercises Modalities Cold Pack/Ice Massage,Electric Stimulation,Hot Packs, Ultrasound Next Visit Focus/Plan Next Note Type Treatment Note Next Visit Plan Core strengthening, STM, joint mobilizations
--- NOTE | 2020-10-07 17:32 | PT.OTN ---
Current Diagnoses Other chronic pain (10/07/20) Stiffness of other specified joint, not elsewhere classified (10/07/20) Low back pain (10/07/20) Physical Therapy Treatment Note PT-OP-A Visit Information Start: 05/10/20 13:35 Freq: Status: Active Protocol: Document 10/07/20 16:45 DCW (Rec: 10/07/20 17:32 DCW [id number]) Out-Patient Physical Therapy Visit Information Visit Information Visit Type Treatment Note Visit Start Time 16:45 Visit Stop Time 17:30 Total Visit Minutes 45 Visit Number 29 Number of HEAD TURBINE OPERATOR Visits 0 Evaluation Information Evaluation Date 05/10/20 PT-OP-B Current Condition Start: 05/10/20 13:35 Freq: Status: Active Protocol: Document 05/10/20 11:15 DCW (Rec: 05/10/20 13:48 DCW [id number]) Current Condition History of Current Condition Onset Date 4-5 months Current Complaints Low back pain/stiffness later in the day History of Current Condition Pt is a 75 year old male well known to this clinic presenting with a 4-5 month history of worsening low back pain. Pt notes his pain worsens throughout the day, but improves with rest. Notes that after walking more than ~ 1/2 mile, it hurts so much that he is unable to stand up straight. He is typically really sore when he gets to bed at night, and if he has to get up in the middie of the night to use the bathroom, it 's really painful, but then by the time morning comes and he gets up, he feels much better. He reports that he was told a number of years ago that his x-rays showed his discs were fusing, but pt feels this pain is more due to core weakness. Prior Treatments and Tests Multiple PT visits secondary to TKA, LE weakness, shoulder pain Personal Factors Other Personal Factors That May Effect Psoriatic arthritis Therapy/Recovery PT-OP-C Subjective Start: 05/10/20 13:35 Freq: Status: Active Protocol: Document 10/07/20 16:45 DCW (Rec: 10/07/20 17:32 DCW [id number]) OP-PT Subjective Patient Comments Patient Comments Pt notes he is not feeling well today, just overall very sore, especially his knees. Admits he probably wouldn't have agreed to come in today if I thought more about it. PT-OP-F Manual Assessment Start: 05/10/20 13:35 Freq: Status: Active Protocol: Document 09/05/20 10:30 DCW (Rec: 09/05/20 10:54 DCW [id number]) Manual Assessments Soft Tissue Assessment Soft Tissue Mobility Assessment Moderate tone along left-sided lumbar paraspinals, left QL, left adductors, and bilateral posterior hip Joint Mobility Assessment Joint Mobility Assessment Mild hypomobility of lumbar spine, with movement PT-OP-K Range of Motion Start: 05/10/20 13:35 Freq: Status: Active Protocol: Document 09/05/20 10:30 DCW (Rec: 09/05/20 10:54 DCW [id number]) Lumbar Spine Range of Motion Lumbar Spine Active Degrees Testing Position Standing Flexion 50 Extension 15 Lateral Flexion Left 54 Lateral Flexion Right 53 ROM Limitations Soft Tissue Tightness,Bony Restriction Comments Lateral flexion measured in cm from finger tips to floor PT-OP-L Special Tests Start: 05/10/20 13:35 Freq: Status: Active Protocol: Document 09/05/20 10:30 DCW (Rec: 09/05/20 10:54 DCW [id number]) Special Tests Lumbar Spine Special Tests Torsion Test Results Negative Vertical Spine Loading Test Results Negative A-P Shearing Test Results Negative Straight Leg Raise Test Results Hamstring stiffness R: 74?, L: 65? Standing Flexion Test Results Stiffness Slump Test Results Negative Passive Neck Flexion Test Results Negative PT-OP-M Strength Start: 05/10/20 13:35 Freq: Status: Active Protocol: Document 09/05/20 10:30 DCW (Rec: 09/05/20 10:54 DCW [id number]) Trunk Strength Trunk Manual Muscle Testing Core Stabilization Pt improved ability with dawson and holding TrA, 4 -/5 PT-OP-Q Treatments Start: 05/10/20 13:35 Freq: Status: Active Protocol: Document 10/07/20 16:45 DCW (Rec: 10/07/20 17:32 DCW [id number]) Gym Equipment Therapeutic Ball Resisted trunk rotation Exercise Details Resisted Trunk Rotation Ball Size/Color Green - 65 cm Lv 3 T-band Body Position Sitting Pelvic tilts/circles Exercise Details Pelvic tilts/circles Ball Size/Color Green - 65 cm Body Position Sitting Comments Use mirror for feedback Therapeutic Exercises Supine Exercises 1 Supine Exercise Name Piriformis stretch Side bilateral Hamstring Stretch Supine Exercise Name HS stretch Side bilateral Manual Therapy Treatment Soft Tissue Mobilization 3 Body Location B Psoas Mobilization Type Strumming,Sustained Pressure Intensity/Depth Moderate 2 Body Location B Piriformis Mobilization Type Sustained Pressure Intensity/Depth Deep Body Position Sidelying 1 Body Location B lumbar paraspinals Mobilization Type Strumming,Sustained Pressure Intensity/Depth Moderate Body Position Sidelying Joint Mobilizations 1 Joint Lumbar vertebrae Direction P->A PT-OP-T Assessment and Plan Start: 05/10/20 13:35 Freq: Status: Active Protocol: Document 10/07/20 16:45 DCW (Rec: 10/07/20 17:32 DCW [id number]) Physical Therapy Assessment Impairments Impairments Activity Tolerance,Functional Activities,Functional Mobility ,Pain,Posture,ROM,Strength Goals Four Impairment Pt displays limited lumbar ROM Half-Way Goal (LTG) Lumbar flexion and extension to 50? 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 LTG Duration 11/05/20 One Impairment Pt does not have appropriate home exercise program Short Term Goal (STG) Pt to be independent and compliant with an appropriate HEP STG Duration 10/06/20 Assessment Summary Assessment Pt much more sore and stiff today, has an injection upcoming for his arthritis treatment later this week, is hopeful that this helps decrease pain. Physical Therapy Plan Frequency and Duration Frequency of Treatment 2x/Week Duration of Treatment two months Plan of Care Start Date 09/05/20 Plan of Care End Date 11/05/20 Therapeutic Interventions Therapeutic Interventions Home Exercise Program,Joint Mobilizations,Manual Therapy, Patient/Caregiver Education, Self-Care/Home Management,Soft Tissue Mobilization, Therapeutic Activities, Therapeutic Exercises Modalities Cold Pack/Ice Massage,Electric Stimulation,Hot Packs, Ultrasound Next Visit Focus/Plan Next Note Type Treatment Note Next Visit Plan Core strengthening, STM, joint mobilizations
--- NOTE | 2020-10-31 14:29 | PT.OTN ---
Current Diagnoses Other chronic pain (10/31/20) Stiffness of other specified joint, not elsewhere classified (10/31/20) Low back pain (10/31/20) Physical Therapy Treatment Note PT-OP-A Visit Information Start: 05/10/20 13:35 Freq: Status: Active Protocol: Document 10/31/20 13:50 DCW (Rec: 10/31/20 14:28 DCW [id number]) Out-Patient Physical Therapy Visit Information Visit Information Visit Type Treatment Note Visit Start Time 13:50 Visit Stop Time 14:30 Total Visit Minutes 40 Visit Number 30 Number of PLANNING ANALYST Visits 0 Evaluation Information Evaluation Date 05/10/20 PT-OP-B Current Condition Start: 05/10/20 13:35 Freq: Status: Active Protocol: Document 05/10/20 11:15 DCW (Rec: 05/10/20 13:48 DCW [id number]) Current Condition History of Current Condition Onset Date 4-5 months Current Complaints Low back pain/stiffness later in the day History of Current Condition Pt is a 75 year old male well known to this clinic presenting with a 4-5 month history of worsening low back pain. Pt notes his pain worsens throughout the day, but improves with rest. Notes that after walking more than ~ 1/2 mile, it hurts so much that he is unable to stand up straight. He is typically really sore when he gets to bed at night, and if he has to get up in the middie of the night to use the bathroom, it 's really painful, but then by the time morning comes and he gets up, he feels much better. He reports that he was told a number of years ago that his x-rays showed his discs were fusing, but pt feels this pain is more due to core weakness. Prior Treatments and Tests Multiple PT visits secondary to TKA, LE weakness, shoulder pain Personal Factors Other Personal Factors That May Effect Psoriatic arthritis Therapy/Recovery PT-OP-C Subjective Start: 05/10/20 13:35 Freq: Status: Active Protocol: Document 10/31/20 13:50 DCW (Rec: 10/31/20 14:28 DCW [id number]) OP-PT Subjective Patient Comments Patient Comments I'm feeling pretty good, but my right knee, the one that was most recently replaced, is really bad. I was doing some pretty aggressive dirt work with my excavator, and it took me about four days to recover . PT-OP-F Manual Assessment Start: 05/10/20 13:35 Freq: Status: Active Protocol: Document 09/05/20 10:30 DCW (Rec: 09/05/20 10:54 DCW [id number]) Manual Assessments Soft Tissue Assessment Soft Tissue Mobility Assessment Moderate tone along left-sided lumbar paraspinals, left QL, left adductors, and bilateral posterior hip Joint Mobility Assessment Joint Mobility Assessment Mild hypomobility of lumbar spine, with movement PT-OP-K Range of Motion Start: 05/10/20 13:35 Freq: Status: Active Protocol: Document 09/05/20 10:30 DCW (Rec: 09/05/20 10:54 DCW [id number]) Lumbar Spine Range of Motion Lumbar Spine Active Degrees Testing Position Standing Flexion 50 Extension 15 Lateral Flexion Left 54 Lateral Flexion Right 53 ROM Limitations Soft Tissue Tightness,Bony Restriction Comments Lateral flexion measured in cm from finger tips to floor PT-OP-L Special Tests Start: 05/10/20 13:35 Freq: Status: Active Protocol: Document 09/05/20 10:30 DCW (Rec: 09/05/20 10:54 DCW [id number]) Special Tests Lumbar Spine Special Tests Torsion Test Results Negative Vertical Spine Loading Test Results Negative A-P Shearing Test Results Negative Straight Leg Raise Test Results Hamstring stiffness R: 74?, L: 65? Standing Flexion Test Results Stiffness Slump Test Results Negative Passive Neck Flexion Test Results Negative PT-OP-M Strength Start: 05/10/20 13:35 Freq: Status: Active Protocol: Document 09/05/20 10:30 DCW (Rec: 09/05/20 10:54 DCW [id number]) Trunk Strength Trunk Manual Muscle Testing Core Stabilization Pt improved ability with dawson and holding TrA, 4 -/5 PT-OP-Q Treatments Start: 05/10/20 13:35 Freq: Status: Active Protocol: Document 10/31/20 13:50 DCW (Rec: 10/31/20 14:28 DCW [id number]) Gym Equipment Therapeutic Ball Resisted trunk rotation Exercise Details Resisted Trunk Rotation Ball Size/Color Green - 65 cm Lv 3 T-band Body Position Sitting Pelvic tilts/circles Exercise Details Pelvic tilts/circles Ball Size/Color Green - 65 cm Body Position Sitting Comments Use mirror for feedback Therapeutic Exercises Supine Exercises 1 Supine Exercise Name Piriformis stretch Side bilateral Hamstring Stretch Supine Exercise Name HS stretch Side bilateral Manual Therapy Treatment Soft Tissue Mobilization 3 Body Location B Psoas Mobilization Type Strumming,Sustained Pressure Intensity/Depth Moderate 2 Body Location B Piriformis Mobilization Type Sustained Pressure Intensity/Depth Deep Body Position Sidelying 1 Body Location B lumbar paraspinals Mobilization Type Strumming,Sustained Pressure Intensity/Depth Moderate Body Position Sidelying Joint Mobilizations 1 Joint Lumbar vertebrae Direction P->A PT-OP-T Assessment and Plan Start: 05/10/20 13:35 Freq: Status: Active Protocol: Document 10/31/20 13:50 DCW (Rec: 10/31/20 14:28 DCW [id number]) Physical Therapy Assessment Impairments Impairments Activity Tolerance,Functional Activities,Functional Mobility ,Pain,Posture,ROM,Strength Goals Four Impairment Pt displays limited lumbar ROM Custodial Goal (LTG) Lumbar flexion and extension to 50? and 25?, respectively LTG Duration 11/05/20 Three Impairment Pt unable to tolerate working in his workshop in the PM due to back pain Custodial Goal (LTG) 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 to spend evenings in his workshop after a day of activity with no increased back pain or stiffness LTG Duration 11/05/20 Two Impairment Pt has severe back pain and is unable to stand straight after walking .5 mi Custodial Goal (LTG) Pt to ambulate 1.5 miles with no increase in back pain. LTG Duration 11/05/20 One Impairment Pt does not have appropriate home exercise program Short Term Goal (STG) Pt to be independent and compliant with an appropriate HEP STG Duration 10/06/20 Assessment Summary Assessment Pt overall moving better today , less paraspinal tone and improved mobility. Physical Therapy Plan Frequency and Duration Frequency of Treatment 2x/Week Duration of Treatment two months Plan of Care Start Date 09/05/20 Plan of Care End Date 11/05/20 Therapeutic Interventions Therapeutic Interventions Home Exercise Program,Joint Mobilizations,Manual Therapy, Patient/Caregiver Education, Self-Care/Home Management,Soft Tissue Mobilization, Therapeutic Activities, Therapeutic Exercises Modalities Cold Pack/Ice Massage,Electric Stimulation,Hot Packs, Ultrasound Next Visit Focus/Plan Next Note Type Progress Note Next Visit Plan Core strengthening, STM, joint mobilizations
--- NOTE | 2020-11-04 14:25 | PT.OTN ---
Current Diagnoses Other chronic pain (11/04/20) Stiffness of other specified joint, not elsewhere classified (11/04/20) Low back pain (11/04/20) Physical Therapy Treatment Note PT-OP-A Visit Information Start: 05/10/20 13:35 Freq: Status: Active Protocol: Document 11/04/20 13:45 DCW (Rec: 11/04/20 14:25 DCW [id number]) Out-Patient Physical Therapy Visit Information Visit Information Visit Type Progress Note Visit Start Time 13:45 Visit Stop Time 14:30 Total Visit Minutes 45 Visit Number 31 Number of MASTER ELECTRICIAN Visits 0 Evaluation Information Evaluation Date 05/10/20 PT-OP-B Current Condition Start: 05/10/20 13:35 Freq: Status: Active Protocol: Document 05/10/20 11:15 DCW (Rec: 05/10/20 13:48 DCW [id number]) Current Condition History of Current Condition Onset Date 4-5 months Current Complaints Low back pain/stiffness later in the day History of Current Condition Pt is a 75 year old male well known to this clinic presenting with a 4-5 month history of worsening low back pain. Pt notes his pain worsens throughout the day, but improves with rest. Notes that after walking more than ~ 1/2 mile, it hurts so much that he is unable to stand up straight. He is typically really sore when he gets to bed at night, and if he has to get up in the middie of the night to use the bathroom, it 's really painful, but then by the time morning comes and he gets up, he feels much better. He reports that he was told a number of years ago that his x-rays showed his discs were fusing, but pt feels this pain is more due to core weakness. Prior Treatments and Tests Multiple PT visits secondary to TKA, LE weakness, shoulder pain Personal Factors Other Personal Factors That May Effect Psoriatic arthritis Therapy/Recovery PT-OP-C Subjective Start: 05/10/20 13:35 Freq: Status: Active Protocol: Document 11/04/20 13:45 DCW (Rec: 11/04/20 14:25 DCW [id number]) OP-PT Subjective Patient Comments Patient Comments I'm doing pretty good overall , except for my knee. PT-OP-F Manual Assessment Start: 05/10/20 13:35 Freq: Status: Active Protocol: Document 11/04/20 13:45 DCW (Rec: 11/04/20 14:04 DCW [id number]) Manual Assessments Soft Tissue Assessment Soft Tissue Mobility Assessment Moderate tone along left-sided lumbar paraspinals, left QL, left adductors, and bilateral posterior hip Joint Mobility Assessment Joint Mobility Assessment Mild hypomobility of lumbar spine, with movement PT-OP-K Range of Motion Start: 05/10/20 13:35 Freq: Status: Active Protocol: Document 11/04/20 13:45 DCW (Rec: 11/04/20 14:04 DCW [id number]) Lumbar Spine Range of Motion Lumbar Spine Active Degrees Testing Position Standing Flexion 75 Extension 15 Lateral Flexion Left 55 Lateral Flexion Right 52 ROM Limitations Soft Tissue Tightness,Bony Restriction Comments Lateral flexion measured in cm from finger tips to floor PT-OP-L Special Tests Start: 05/10/20 13:35 Freq: Status: Active Protocol: Document 11/04/20 13:45 DCW (Rec: 11/04/20 14:04 DCW [id number]) Special Tests Lumbar Spine Special Tests Torsion Test Results Negative Vertical Spine Loading Test Results Negative A-P Shearing Test Results Negative Straight Leg Raise Test Results Hamstring stiffness R: 76?, L: 75? Standing Flexion Test Results Stiffness Slump Test Results Negative Passive Neck Flexion Test Results Negative PT-OP-M Strength Start: 05/10/20 13:35 Freq: Status: Active Protocol: Document 11/04/20 13:45 DCW (Rec: 11/04/20 14:04 DCW [id number]) Trunk Strength Trunk Manual Muscle Testing Core Stabilization Pt improved ability with dawson and holding TrA, 4 -/5 PT-OP-Q Treatments Start: 05/10/20 13:35 Freq: Status: Active Protocol: Document 11/04/20 13:45 DCW (Rec: 11/04/20 14:25 DCW [id number]) Gym Equipment Therapeutic Ball Resisted trunk rotation Exercise Details Resisted Trunk Rotation Ball Size/Color Green - 65 cm Lv 3 T-band Body Position Sitting Pelvic tilts/circles Exercise Details Pelvic tilts/circles Ball Size/Color Green - 65 cm Body Position Sitting Comments Use mirror for feedback Therapeutic Exercises Supine Exercises 1 Supine Exercise Name Piriformis stretch Side bilateral Hamstring Stretch Supine Exercise Name HS stretch Side bilateral Manual Therapy Treatment Soft Tissue Mobilization 3 Body Location B Psoas Mobilization Type Strumming,Sustained Pressure Intensity/Depth Moderate 2 Body Location B Piriformis Mobilization Type Sustained Pressure Intensity/Depth Deep Body Position Sidelying 1 Body Location B lumbar paraspinals Mobilization Type Strumming,Sustained Pressure Intensity/Depth Moderate Body Position Sidelying Joint Mobilizations 1 Joint Lumbar vertebrae Direction P->A PT-OP-T Assessment and Plan Start: 05/10/20 13:35 Freq: Status: Active Protocol: Document 11/04/20 13:45 DCW (Rec: 11/04/20 14:25 DCW [id number]) Physical Therapy Assessment Impairments Impairments Activity Tolerance,Functional Activities,Functional Mobility ,Pain,Posture,ROM,Strength Goals Four Impairment Pt displays limited lumbar ROM Fdc Goal (LTG) Lumbar flexion and extension to 50? and 25?, respectively LTG Duration 01/04/21 - Improving - 75? 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 LTG Duration 01/04/21 One Impairment Pt does not have appropriate home exercise program Short Term Goal (STG) Pt to be independent and compliant with an appropriate HEP STG Duration 12/05/20 - Progressing Progress Towards Goals Progress Towards Goals Progressing Toward Goals Assessment Summary Assessment Pt showing substantial improvement with lumbar flexion, improving from 30? flexion at initial evaluation to 75? today. Still limited with extension, somewhat improved core strength, overall improved mobility, however he is currently limited more due to recent knee pain. Physical Therapy Plan Frequency and Duration Frequency of Treatment 2x/Week Duration of Treatment two months Plan of Care Start Date 11/04/20 Plan of Care End Date 01/04/21 Therapeutic Interventions Therapeutic Interventions Home Exercise Program,Joint Mobilizations,Manual Therapy, Patient/Caregiver Education, Self-Care/Home Management,Soft Tissue Mobilization, Therapeutic Activities, Therapeutic Exercises Modalities Cold Pack/Ice Massage,Electric Stimulation,Hot Packs, Ultrasound Next Visit Focus/Plan Next Note Type Treatment Note Next Visit Plan Core strengthening, STM, joint mobilizations
--- NOTE | 2020-11-04 14:25 | PT.OPPOC ---
Physical, Occupational & Speech Therapy At [facility] Current Diagnoses Other chronic pain (11/04/20) Stiffness of other specified joint, not elsewhere classified (11/04/20) Low back pain (11/04/20) Visit Care Team Role Provider Type Kavita Aranda MD Primary Care Provider Non-Staff Specialty: Internal Medicine Address: [address] [place] [address], [address], [place], [address] Email: Franck Ugarte MD Attending Provider Non-Staff Referring Provider Specialty: Internal Medicine Address: [address] [place] [address], [address], [place], [address] Email: Plan Of Care PT-OP-T Assessment and Plan Start: 05/10/20 13:35 Freq: Status: Active Protocol: Document 11/04/20 13:45 DCW (Rec: 11/04/20 14:25 DCW [id number]) Physical Therapy Assessment Impairments Impairments Activity Tolerance,Functional Activities,Functional Mobility ,Pain,Posture,ROM,Strength Goals Four Impairment Pt displays limited lumbar ROM Hospital Cleaner Goal (LTG) Lumbar flexion and extension to 50? and 25?, respectively LTG Duration 01/04/21 - Improving - 75? 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 LTG Duration 01/04/21 One Impairment Pt does not have appropriate home exercise program Short Term Goal (STG) Pt to be independent and compliant with an appropriate HEP STG Duration 12/05/20 - Progressing Progress Towards Goals Progress Towards Goals Progressing Toward Goals Assessment Summary Assessment Pt showing substantial improvement with lumbar flexion, improving from 30? flexion at initial evaluation to 75? today. Still limited with extension, somewhat improved core strength, overall improved mobility, however he is currently limited more due to recent knee pain. Physical Therapy Plan Frequency and Duration Frequency of Treatment 2x/Week Duration of Treatment two months Plan of Care Start Date 11/04/20 Plan of Care End Date 01/04/21 Therapeutic Interventions Therapeutic Interventions Home Exercise Program,Joint Mobilizations,Manual Therapy, Patient/Caregiver Education, Self-Care/Home Management,Soft Tissue Mobilization, Therapeutic Activities, Therapeutic Exercises Modalities Cold Pack/Ice Massage,Electric Stimulation,Hot Packs, Ultrasound Next Visit Focus/Plan Next Note Type Treatment Note Next Visit Plan Core strengthening, STM, joint mobilizations Plan of Care Dates Plan of Care Start Date 11/04/20 Plan of Care End Date 01/04/21 Electronically Signed by: Evaristo Carvalho, PT 11/04/20 4057 Please Sign and Return: I have reviewed this Plan of Care and certify that the skilled therapy services above are required to meet the patient?s needs. Physician Signature Date Printed Name and Credentials Clinical Instructor Signature Printed Name and Credentials
--- NOTE | 2020-11-07 14:30 | PT.OTN ---
Current Diagnoses Other chronic pain (11/07/20) Stiffness of other specified joint, not elsewhere classified (11/07/20) Low back pain (11/07/20) Physical Therapy Treatment Note PT-OP-A Visit Information Start: 05/10/20 13:35 Freq: Status: Active Protocol: Document 11/07/20 13:45 DCW (Rec: 11/07/20 14:30 DCW [id number]) Out-Patient Physical Therapy Visit Information Visit Information Visit Type Treatment Note Visit Start Time 13:45 Visit Stop Time 14:30 Total Visit Minutes 45 Visit Number 32 Number of DARKROOM WORKER Visits 0 Evaluation Information Evaluation Date 05/10/20 PT-OP-B Current Condition Start: 05/10/20 13:35 Freq: Status: Active Protocol: Document 05/10/20 11:15 DCW (Rec: 05/10/20 13:48 DCW [id number]) Current Condition History of Current Condition Onset Date 4-5 months Current Complaints Low back pain/stiffness later in the day History of Current Condition Pt is a 75 year old male well known to this clinic presenting with a 4-5 month history of worsening low back pain. Pt notes his pain worsens throughout the day, but improves with rest. Notes that after walking more than ~ 1/2 mile, it hurts so much that he is unable to stand up straight. He is typically really sore when he gets to bed at night, and if he has to get up in the middie of the night to use the bathroom, it 's really painful, but then by the time morning comes and he gets up, he feels much better. He reports that he was told a number of years ago that his x-rays showed his discs were fusing, but pt feels this pain is more due to core weakness. Prior Treatments and Tests Multiple PT visits secondary to TKA, LE weakness, shoulder pain Personal Factors Other Personal Factors That May Effect Psoriatic arthritis Therapy/Recovery PT-OP-C Subjective Start: 05/10/20 13:35 Freq: Status: Active Protocol: Document 11/07/20 13:45 DCW (Rec: 11/07/20 14:30 DCW [id number]) OP-PT Subjective Patient Comments Patient Comments Pt saw his rhumetologist yesterday, reports they feel his knee is negatively affecting his back, and pt should address LE weakness and mobility a little bit more. PT-OP-F Manual Assessment Start: 05/10/20 13:35 Freq: Status: Active Protocol: Document 11/04/20 13:45 DCW (Rec: 11/04/20 14:04 DCW [id number]) Manual Assessments Soft Tissue Assessment Soft Tissue Mobility Assessment Moderate tone along left-sided lumbar paraspinals, left QL, left adductors, and bilateral posterior hip Joint Mobility Assessment Joint Mobility Assessment Mild hypomobility of lumbar spine, with movement PT-OP-K Range of Motion Start: 05/10/20 13:35 Freq: Status: Active Protocol: Document 11/04/20 13:45 DCW (Rec: 11/04/20 14:04 DCW [id number]) Lumbar Spine Range of Motion Lumbar Spine Active Degrees Testing Position Standing Flexion 75 Extension 15 Lateral Flexion Left 55 Lateral Flexion Right 52 ROM Limitations Soft Tissue Tightness,Bony Restriction Comments Lateral flexion measured in cm from finger tips to floor PT-OP-L Special Tests Start: 05/10/20 13:35 Freq: Status: Active Protocol: Document 11/04/20 13:45 DCW (Rec: 11/04/20 14:04 DCW [id number]) Special Tests Lumbar Spine Special Tests Torsion Test Results Negative Vertical Spine Loading Test Results Negative A-P Shearing Test Results Negative Straight Leg Raise Test Results Hamstring stiffness R: 76?, L: 75? Standing Flexion Test Results Stiffness Slump Test Results Negative Passive Neck Flexion Test Results Negative PT-OP-M Strength Start: 05/10/20 13:35 Freq: Status: Active Protocol: Document 11/04/20 13:45 DCW (Rec: 11/04/20 14:04 DCW [id number]) Trunk Strength Trunk Manual Muscle Testing Core Stabilization Pt improved ability with dawson and holding TrA, 4 -/5 PT-OP-Q Treatments Start: 05/10/20 13:35 Freq: Status: Active Protocol: Document 11/07/20 13:45 DCW (Rec: 11/07/20 14:30 DCW [id number]) Gym Equipment Therapeutic Ball Resisted trunk rotation Exercise Details Resisted Trunk Rotation Ball Size/Color Green - 65 cm Lv 3 T-band Body Position Sitting Pelvic tilts/circles Exercise Details Pelvic tilts/circles Ball Size/Color Green - 65 cm Body Position Sitting Comments Use mirror for feedback Therapeutic Exercises Supine Exercises 1 Supine Exercise Name Piriformis stretch Side bilateral Hamstring Stretch Supine Exercise Name HS stretch Side bilateral Sitting Exercises 1 Sitting Exercise Name LAQ Side bilateral Resistance 10# Standing Exercises 1 Standing Exercise Name TKE Side bilateral Resistance Lv 3 Equipment Used T-band Step-ups Standing Exercise Name Step-downs Side right Equipment Used 6 step Comments eccentric quad contraction Manual Therapy Treatment Soft Tissue Mobilization 3 Body Location B Psoas Mobilization Type Strumming,Sustained Pressure Intensity/Depth Moderate 2 Body Location B Piriformis Mobilization Type Sustained Pressure Intensity/Depth Deep Body Position Sidelying 1 Body Location B lumbar paraspinals Mobilization Type Strumming,Sustained Pressure Intensity/Depth Moderate Body Position Sidelying Joint Mobilizations 1 Joint Lumbar vertebrae Direction P->A PT-OP-T Assessment and Plan Start: 05/10/20 13:35 Freq: Status: Active Protocol: Document 11/07/20 13:45 DCW (Rec: 11/07/20 14:30 DCW [id number]) Physical Therapy Assessment Impairments Impairments Activity Tolerance,Functional Activities,Functional Mobility ,Pain,Posture,ROM,Strength Goals Four Impairment Pt displays limited lumbar ROM Associate Software Engineer Goal (LTG) Lumbar flexion and extension to 50? and 25?, respectively LTG Duration 01/04/21 - Improving - 75? flexion Three Impairment Pt unable to tolerate working in his workshop in the PM due to back pain Retirement Goal (LTG) 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 to spend evenings in his workshop after a day of activity with no increased back pain or stiffness LTG Duration 01/04/21 Two Impairment Pt has severe back pain and is unable to stand straight after walking .5 mi Associate Software Engineer Goal (LTG) Pt to ambulate 1.5 miles with no increase in back pain. LTG Duration 01/04/21 One Impairment Pt does not have appropriate home exercise program Short Term Goal (STG) Pt to be independent and compliant with an appropriate HEP STG Duration 12/05/20 - Progressing Progress Towards Goals Progress Towards Goals Progressing Toward Goals Assessment Summary Assessment Focused a bit more today on knee strengthening and mobility in an effort to prevent knee pain from limiting pt's daily mobility. Physical Therapy Plan Frequency and Duration Frequency of Treatment 2x/Week Duration of Treatment two months Plan of Care Start Date 11/04/20 Plan of Care End Date 01/04/21 Therapeutic Interventions Therapeutic Interventions Home Exercise Program,Joint Mobilizations,Manual Therapy, Patient/Caregiver Education, Self-Care/Home Management,Soft Tissue Mobilization, Therapeutic Activities, Therapeutic Exercises Modalities Cold Pack/Ice Massage,Electric Stimulation,Hot Packs, Ultrasound Next Visit Focus/Plan Next Note Type Treatment Note Next Visit Plan Core strengthening, STM, joint mobilizations
--- NOTE | 2020-11-11 14:34 | PT.OTN ---
Current Diagnoses Other chronic pain (11/11/20) Stiffness of other specified joint, not elsewhere classified (11/11/20) Low back pain (11/11/20) Physical Therapy Treatment Note PT-OP-A Visit Information Start: 05/10/20 13:35 Freq: Status: Active Protocol: Document 11/11/20 13:45 DCW (Rec: 11/11/20 14:33 DCW [id number]) Out-Patient Physical Therapy Visit Information Visit Information Visit Type Treatment Note Visit Start Time 13:45 Visit Stop Time 14:30 Total Visit Minutes 45 Visit Number 33 Number of PRESS WORKER HELPER Visits 0 Evaluation Information Evaluation Date 05/10/20 PT-OP-B Current Condition Start: 05/10/20 13:35 Freq: Status: Active Protocol: Document 05/10/20 11:15 DCW (Rec: 05/10/20 13:48 DCW [id number]) Current Condition History of Current Condition Onset Date 4-5 months Current Complaints Low back pain/stiffness later in the day History of Current Condition Pt is a 75 year old male well known to this clinic presenting with a 4-5 month history of worsening low back pain. Pt notes his pain worsens throughout the day, but improves with rest. Notes that after walking more than ~ 1/2 mile, it hurts so much that he is unable to stand up straight. He is typically really sore when he gets to bed at night, and if he has to get up in the middie of the night to use the bathroom, it 's really painful, but then by the time morning comes and he gets up, he feels much better. He reports that he was told a number of years ago that his x-rays showed his discs were fusing, but pt feels this pain is more due to core weakness. Prior Treatments and Tests Multiple PT visits secondary to TKA, LE weakness, shoulder pain Personal Factors Other Personal Factors That May Effect Psoriatic arthritis Therapy/Recovery PT-OP-C Subjective Start: 05/10/20 13:35 Freq: Status: Active Protocol: Document 11/11/20 13:45 DCW (Rec: 11/11/20 14:33 DCW [id number]) OP-PT Subjective Patient Comments Patient Comments The knee has been somewhat tight the last few days. I was here , and Wednesday it was great, no problems at all, but it has been tightening up since then. PT-OP-F Manual Assessment Start: 05/10/20 13:35 Freq: Status: Active Protocol: Document 11/04/20 13:45 DCW (Rec: 11/04/20 14:04 DCW [id number]) Manual Assessments Soft Tissue Assessment Soft Tissue Mobility Assessment Moderate tone along left-sided lumbar paraspinals, left QL, left adductors, and bilateral posterior hip Joint Mobility Assessment Joint Mobility Assessment Mild hypomobility of lumbar spine, with movement PT-OP-K Range of Motion Start: 05/10/20 13:35 Freq: Status: Active Protocol: Document 11/04/20 13:45 DCW (Rec: 11/04/20 14:04 DCW [id number]) Lumbar Spine Range of Motion Lumbar Spine Active Degrees Testing Position Standing Flexion 75 Extension 15 Lateral Flexion Left 55 Lateral Flexion Right 52 ROM Limitations Soft Tissue Tightness,Bony Restriction Comments Lateral flexion measured in cm from finger tips to floor PT-OP-L Special Tests Start: 05/10/20 13:35 Freq: Status: Active Protocol: Document 11/04/20 13:45 DCW (Rec: 11/04/20 14:04 DCW [id number]) Special Tests Lumbar Spine Special Tests Torsion Test Results Negative Vertical Spine Loading Test Results Negative A-P Shearing Test Results Negative Straight Leg Raise Test Results Hamstring stiffness R: 76?, L: 75? Standing Flexion Test Results Stiffness Slump Test Results Negative Passive Neck Flexion Test Results Negative PT-OP-M Strength Start: 05/10/20 13:35 Freq: Status: Active Protocol: Document 11/04/20 13:45 DCW (Rec: 11/04/20 14:04 DCW [id number]) Trunk Strength Trunk Manual Muscle Testing Core Stabilization Pt improved ability with dawson and holding TrA, 4 -/5 PT-OP-Q Treatments Start: 05/10/20 13:35 Freq: Status: Active Protocol: Document 11/11/20 13:45 DCW (Rec: 11/11/20 14:33 DCW [id number]) Gym Equipment Therapeutic Ball Resisted trunk rotation Exercise Details Resisted Trunk Rotation Ball Size/Color Green - 65 cm Lv 3 T-band Body Position Sitting Pelvic tilts/circles Exercise Details Pelvic tilts/circles Ball Size/Color Green - 65 cm Body Position Sitting Comments Use mirror for feedback Therapeutic Exercises Supine Exercises 1 Supine Exercise Name Piriformis stretch Side bilateral Hamstring Stretch Supine Exercise Name HS stretch Side bilateral Sitting Exercises 1 Sitting Exercise Name LAQ Side bilateral Resistance 10# Standing Exercises 1 Standing Exercise Name TKE Side bilateral Resistance Lv 3 Equipment Used T-band Step-ups Standing Exercise Name Step-downs Side right Equipment Used 6 step Comments eccentric quad contraction Manual Therapy Treatment Soft Tissue Mobilization 3 Body Location B Psoas Mobilization Type Strumming,Sustained Pressure Intensity/Depth Moderate 2 Body Location B Piriformis Mobilization Type Sustained Pressure Intensity/Depth Deep Body Position Sidelying 1 Body Location B lumbar paraspinals Mobilization Type Strumming,Sustained Pressure Intensity/Depth Moderate Body Position Sidelying Joint Mobilizations 2 Joint R Patellofemoral Direction Inf/sup Grade III 1 Joint Lumbar vertebrae Direction P->A PT-OP-T Assessment and Plan Start: 05/10/20 13:35 Freq: Status: Active Protocol: Document 11/11/20 13:45 DCW (Rec: 11/11/20 14:33 DCW [id number]) Physical Therapy Assessment Impairments Impairments Activity Tolerance,Functional Activities,Functional Mobility ,Pain,Posture,ROM,Strength Goals Four Impairment Pt displays limited lumbar ROM Vendor Analyst Goal (LTG) Lumbar flexion and extension to 50? and 25?, respectively LTG Duration 01/04/21 - Improving - 75? flexion Three Impairment Pt unable to tolerate working in his workshop in the PM due to back pain Vendor Analyst Goal (LTG) 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 to spend evenings in his workshop after a day of activity with no increased back pain or stiffness LTG Duration 01/04/21 Two Impairment Pt has severe back pain and is unable to stand straight after walking .5 mi Half-Way Goal (LTG) Pt to ambulate 1.5 miles with no increase in back pain. LTG Duration 01/04/21 One Impairment Pt does not have appropriate home exercise program Short Term Goal (STG) Pt to be independent and compliant with an appropriate HEP STG Duration 12/05/20 - Progressing Progress Towards Goals Progress Towards Goals Progressing Toward Goals Assessment Summary Assessment Added PF joint mobilization today to improve patella mobility and hopefully continue to decrease knee pain . Pt continues to respond well to back, knee, and core strengthening. Physical Therapy Plan Frequency and Duration Frequency of Treatment 2x/Week Duration of Treatment two months Plan of Care Start Date 11/04/20 Plan of Care End Date 01/04/21 Therapeutic Interventions Therapeutic Interventions Home Exercise Program,Joint Mobilizations,Manual Therapy, Patient/Caregiver Education, Self-Care/Home Management,Soft Tissue Mobilization, Therapeutic Activities, Therapeutic Exercises Modalities Cold Pack/Ice Massage,Electric Stimulation,Hot Packs, Ultrasound Next Visit Focus/Plan Next Note Type Treatment Note Next Visit Plan Core strengthening, STM, joint mobilizations
--- NOTE | 2020-11-14 14:30 | PT.OTN ---
Current Diagnoses Other chronic pain (11/14/20) Stiffness of other specified joint, not elsewhere classified (11/14/20) Low back pain (11/14/20) Physical Therapy Treatment Note PT-OP-A Visit Information Start: 05/10/20 13:35 Freq: Status: Active Protocol: Document 11/14/20 13:45 DCW (Rec: 11/14/20 14:30 DCW [id number]) Out-Patient Physical Therapy Visit Information Visit Information Visit Type Treatment Note Visit Start Time 13:45 Visit Stop Time 14:30 Total Visit Minutes 45 Visit Number 34 Number of SHOP CLERK Visits 0 Evaluation Information Evaluation Date 05/10/20 PT-OP-B Current Condition Start: 05/10/20 13:35 Freq: Status: Active Protocol: Document 05/10/20 11:15 DCW (Rec: 05/10/20 13:48 DCW [id number]) Current Condition History of Current Condition Onset Date 4-5 months Current Complaints Low back pain/stiffness later in the day History of Current Condition Pt is a 75 year old male well known to this clinic presenting with a 4-5 month history of worsening low back pain. Pt notes his pain worsens throughout the day, but improves with rest. Notes that after walking more than ~ 1/2 mile, it hurts so much that he is unable to stand up straight. He is typically really sore when he gets to bed at night, and if he has to get up in the middie of the night to use the bathroom, it 's really painful, but then by the time morning comes and he gets up, he feels much better. He reports that he was told a number of years ago that his x-rays showed his discs were fusing, but pt feels this pain is more due to core weakness. Prior Treatments and Tests Multiple PT visits secondary to TKA, LE weakness, shoulder pain Personal Factors Other Personal Factors That May Effect Psoriatic arthritis Therapy/Recovery PT-OP-C Subjective Start: 05/10/20 13:35 Freq: Status: Active Protocol: Document 11/14/20 13:45 DCW (Rec: 11/14/20 14:30 DCW [id number]) OP-PT Subjective Patient Comments Patient Comments My knee has been troublesome, but it is getting better, so I think we're doing the right thing. PT-OP-F Manual Assessment Start: 05/10/20 13:35 Freq: Status: Active Protocol: Document 11/04/20 13:45 DCW (Rec: 11/04/20 14:04 DCW [id number]) Manual Assessments Soft Tissue Assessment Soft Tissue Mobility Assessment Moderate tone along left-sided lumbar paraspinals, left QL, left adductors, and bilateral posterior hip Joint Mobility Assessment Joint Mobility Assessment Mild hypomobility of lumbar spine, with movement PT-OP-K Range of Motion Start: 05/10/20 13:35 Freq: Status: Active Protocol: Document 11/04/20 13:45 DCW (Rec: 11/04/20 14:04 DCW [id number]) Lumbar Spine Range of Motion Lumbar Spine Active Degrees Testing Position Standing Flexion 75 Extension 15 Lateral Flexion Left 55 Lateral Flexion Right 52 ROM Limitations Soft Tissue Tightness,Bony Restriction Comments Lateral flexion measured in cm from finger tips to floor PT-OP-L Special Tests Start: 05/10/20 13:35 Freq: Status: Active Protocol: Document 11/04/20 13:45 DCW (Rec: 11/04/20 14:04 DCW [id number]) Special Tests Lumbar Spine Special Tests Torsion Test Results Negative Vertical Spine Loading Test Results Negative A-P Shearing Test Results Negative Straight Leg Raise Test Results Hamstring stiffness R: 76?, L: 75? Standing Flexion Test Results Stiffness Slump Test Results Negative Passive Neck Flexion Test Results Negative PT-OP-M Strength Start: 05/10/20 13:35 Freq: Status: Active Protocol: Document 11/04/20 13:45 DCW (Rec: 11/04/20 14:04 DCW [id number]) Trunk Strength Trunk Manual Muscle Testing Core Stabilization Pt improved ability with dawson and holding TrA, 4 -/5 PT-OP-Q Treatments Start: 05/10/20 13:35 Freq: Status: Active Protocol: Document 11/14/20 13:45 DCW (Rec: 11/14/20 14:30 DCW [id number]) Gym Equipment Therapeutic Ball Resisted trunk rotation Exercise Details Resisted Trunk Rotation Ball Size/Color Green - 65 cm Lv 3 T-band Body Position Sitting Pelvic tilts/circles Exercise Details Pelvic tilts/circles Ball Size/Color Green - 65 cm Body Position Sitting Comments Use mirror for feedback Therapeutic Exercises Supine Exercises 1 Supine Exercise Name Piriformis stretch Side bilateral Hamstring Stretch Supine Exercise Name HS stretch Side bilateral Sitting Exercises 2 Sitting Exercise Name HS curl Side bilateral Resistance Lv 3 Equipment Used T-band 1 Sitting Exercise Name LAQ Side bilateral Resistance 10# Standing Exercises 1 Standing Exercise Name TKE Side bilateral Resistance Lv 3 Equipment Used T-band Manual Therapy Treatment Soft Tissue Mobilization 3 Body Location B Psoas Mobilization Type Strumming,Sustained Pressure Intensity/Depth Moderate 2 Body Location B Piriformis Mobilization Type Sustained Pressure Intensity/Depth Deep Body Position Sidelying 1 Body Location B lumbar paraspinals Mobilization Type Strumming,Sustained Pressure Intensity/Depth Moderate Body Position Sidelying Joint Mobilizations 2 Joint R Patellofemoral Direction Inf/sup Grade III 1 Joint Lumbar vertebrae Direction P->A PT-OP-T Assessment and Plan Start: 05/10/20 13:35 Freq: Status: Active Protocol: Document 11/14/20 13:45 DCW (Rec: 11/14/20 14:30 DCW [id number]) Physical Therapy Assessment Impairments Impairments Activity Tolerance,Functional Activities,Functional Mobility ,Pain,Posture,ROM,Strength Goals Four Impairment Pt displays limited lumbar ROM Terry Cloth Cutter Hand Goal (LTG) Lumbar flexion and extension to 50? and 25?, respectively LTG Duration 01/04/21 - Improving - 75? flexion Three Impairment Pt unable to tolerate working in his workshop in the PM due to back pain Alf Goal (LTG) 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 to spend evenings in his workshop after a day of activity with no increased back pain or stiffness LTG Duration 01/04/21 Two Impairment Pt has severe back pain and is unable to stand straight after walking .5 mi Terry Cloth Cutter Hand Goal (LTG) Pt to ambulate 1.5 miles with no increase in back pain. LTG Duration 01/04/21 One Impairment Pt does not have appropriate home exercise program Short Term Goal (STG) Pt to be independent and compliant with an appropriate HEP STG Duration 12/05/20 - Progressing Progress Towards Goals Progress Towards Goals Progressing Toward Goals Assessment Summary Assessment Pt moving better today, significant decrease in limping with his right knee. Physical Therapy Plan Frequency and Duration Frequency of Treatment 2x/Week Duration of Treatment two months Plan of Care Start Date 11/04/20 Plan of Care End Date 01/04/21 Therapeutic Interventions Therapeutic Interventions Home Exercise Program,Joint Mobilizations,Manual Therapy, Patient/Caregiver Education, Self-Care/Home Management,Soft Tissue Mobilization, Therapeutic Activities, Therapeutic Exercises Modalities Cold Pack/Ice Massage,Electric Stimulation,Hot Packs, Ultrasound Next Visit Focus/Plan Next Note Type Treatment Note Next Visit Plan Core strengthening, STM, joint mobilizations
--- NOTE | 2020-11-21 14:31 | PT.OTN ---
Current Diagnoses Other chronic pain (11/21/20) Stiffness of other specified joint, not elsewhere classified (11/21/20) Low back pain (11/21/20) Physical Therapy Treatment Note PT-OP-A Visit Information Start: 05/10/20 13:35 Freq: Status: Active Protocol: Document 11/21/20 13:45 DCW (Rec: 11/21/20 14:31 DCW [id number]) Out-Patient Physical Therapy Visit Information Visit Information Visit Type Treatment Note Visit Start Time 13:45 Visit Stop Time 14:30 Total Visit Minutes 45 Visit Number 35 Number of MANAGER BUSINESS Visits 0 Evaluation Information Evaluation Date 05/10/20 PT-OP-B Current Condition Start: 05/10/20 13:35 Freq: Status: Active Protocol: Document 05/10/20 11:15 DCW (Rec: 05/10/20 13:48 DCW [id number]) Current Condition History of Current Condition Onset Date 4-5 months Current Complaints Low back pain/stiffness later in the day History of Current Condition Pt is a 75 year old male well known to this clinic presenting with a 4-5 month history of worsening low back pain. Pt notes his pain worsens throughout the day, but improves with rest. Notes that after walking more than ~ 1/2 mile, it hurts so much that he is unable to stand up straight. He is typically really sore when he gets to bed at night, and if he has to get up in the middie of the night to use the bathroom, it 's really painful, but then by the time morning comes and he gets up, he feels much better. He reports that he was told a number of years ago that his x-rays showed his discs were fusing, but pt feels this pain is more due to core weakness. Prior Treatments and Tests Multiple PT visits secondary to TKA, LE weakness, shoulder pain Personal Factors Other Personal Factors That May Effect Psoriatic arthritis Therapy/Recovery PT-OP-C Subjective Start: 05/10/20 13:35 Freq: Status: Active Protocol: Document 11/21/20 13:45 DCW (Rec: 11/21/20 14:31 DCW [id number]) OP-PT Subjective Patient Comments Patient Comments Pt reports he wasn't feeling great Wednesday, apologizes for the late cancellation. PT-OP-F Manual Assessment Start: 05/10/20 13:35 Freq: Status: Active Protocol: Document 11/04/20 13:45 DCW (Rec: 11/04/20 14:04 DCW [id number]) Manual Assessments Soft Tissue Assessment Soft Tissue Mobility Assessment Moderate tone along left-sided lumbar paraspinals, left QL, left adductors, and bilateral posterior hip Joint Mobility Assessment Joint Mobility Assessment Mild hypomobility of lumbar spine, with movement PT-OP-K Range of Motion Start: 05/10/20 13:35 Freq: Status: Active Protocol: Document 11/04/20 13:45 DCW (Rec: 11/04/20 14:04 DCW [id number]) Lumbar Spine Range of Motion Lumbar Spine Active Degrees Testing Position Standing Flexion 75 Extension 15 Lateral Flexion Left 55 Lateral Flexion Right 52 ROM Limitations Soft Tissue Tightness,Bony Restriction Comments Lateral flexion measured in cm from finger tips to floor PT-OP-L Special Tests Start: 05/10/20 13:35 Freq: Status: Active Protocol: Document 11/04/20 13:45 DCW (Rec: 11/04/20 14:04 DCW [id number]) Special Tests Lumbar Spine Special Tests Torsion Test Results Negative Vertical Spine Loading Test Results Negative A-P Shearing Test Results Negative Straight Leg Raise Test Results Hamstring stiffness R: 76?, L: 75? Standing Flexion Test Results Stiffness Slump Test Results Negative Passive Neck Flexion Test Results Negative PT-OP-M Strength Start: 05/10/20 13:35 Freq: Status: Active Protocol: Document 11/04/20 13:45 DCW (Rec: 11/04/20 14:04 DCW [id number]) Trunk Strength Trunk Manual Muscle Testing Core Stabilization Pt improved ability with dawson and holding TrA, 4 -/5 PT-OP-Q Treatments Start: 05/10/20 13:35 Freq: Status: Active Protocol: Document 11/21/20 13:45 DCW (Rec: 11/21/20 14:31 DCW [id number]) Gym Equipment Therapeutic Ball Resisted trunk rotation Exercise Details Resisted Trunk Rotation Ball Size/Color Green - 65 cm Lv 3 T-band Body Position Sitting Pelvic tilts/circles Exercise Details Pelvic tilts/circles Ball Size/Color Green - 65 cm Body Position Sitting Comments Use mirror for feedback Therapeutic Exercises Supine Exercises 1 Supine Exercise Name Piriformis stretch Side bilateral Hamstring Stretch Supine Exercise Name HS stretch Side bilateral Sitting Exercises 2 Sitting Exercise Name HS curl Side bilateral Resistance Lv 3 Equipment Used T-band 1 Sitting Exercise Name LAQ Side bilateral Resistance 10# Standing Exercises 1 Standing Exercise Name TKE Side bilateral Resistance Lv 3 Equipment Used T-band Manual Therapy Treatment Soft Tissue Mobilization 3 Body Location B Psoas Mobilization Type Strumming,Sustained Pressure Intensity/Depth Moderate 2 Body Location B Piriformis Mobilization Type Sustained Pressure Intensity/Depth Deep Body Position Sidelying 1 Body Location B lumbar paraspinals Mobilization Type Strumming,Sustained Pressure Intensity/Depth Moderate Body Position Sidelying Joint Mobilizations 2 Joint R Patellofemoral Direction Inf/sup Grade III 1 Joint Lumbar vertebrae Direction P->A PT-OP-T Assessment and Plan Start: 05/10/20 13:35 Freq: Status: Active Protocol: Document 11/21/20 13:45 DCW (Rec: 11/21/20 14:31 DCW [id number]) Physical Therapy Assessment Impairments Impairments Activity Tolerance,Functional Activities,Functional Mobility ,Pain,Posture,ROM,Strength Goals Four Impairment Pt displays limited lumbar ROM Supervisor Matrix Goal (LTG) Lumbar flexion and extension to 50? and 25?, respectively LTG Duration 01/04/21 - Improving - 75? flexion Three Impairment Pt unable to tolerate working in his workshop in the PM due to back pain Supervisor Matrix Goal (LTG) 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 to spend evenings in his workshop after a day of activity with no increased back pain or stiffness LTG Duration 01/04/21 Two Impairment Pt has severe back pain and is unable to stand straight after walking .5 mi Supervisor Matrix Goal (LTG) Pt to ambulate 1.5 miles with no increase in back pain. LTG Duration 01/04/21 One Impairment Pt does not have appropriate home exercise program Short Term Goal (STG) Pt to be independent and compliant with an appropriate HEP STG Duration 12/05/20 - Progressing Progress Towards Goals Progress Towards Goals Progressing Toward Goals Assessment Summary Assessment Pt tolerating treatment well, seems to be making improvement with his knee pain. Physical Therapy Plan Frequency and Duration Frequency of Treatment 2x/Week Duration of Treatment two months Plan of Care Start Date 11/04/20 Plan of Care End Date 01/04/21 Therapeutic Interventions Therapeutic Interventions Home Exercise Program,Joint Mobilizations,Manual Therapy, Patient/Caregiver Education, Self-Care/Home Management,Soft Tissue Mobilization, Therapeutic Activities, Therapeutic Exercises Modalities Cold Pack/Ice Massage,Electric Stimulation,Hot Packs, Ultrasound Next Visit Focus/Plan Next Note Type Treatment Note Next Visit Plan Core strengthening, STM, joint mobilizations
--- NOTE | 2020-11-26 16:07 | PT.OTN ---
Current Diagnoses Other chronic pain (11/26/20) Stiffness of other specified joint, not elsewhere classified (11/26/20) Low back pain (11/26/20) Physical Therapy Treatment Note PT-OP-A Visit Information Start: 05/10/20 13:35 Freq: Status: Active Protocol: Document 11/26/20 15:18 DCW (Rec: 11/26/20 16:07 DCW [id number]) Out-Patient Physical Therapy Visit Information Visit Information Visit Type Treatment Note Visit Start Time 15:18 Visit Stop Time 16:00 Total Visit Minutes 42 Visit Number 36 Number of MEDICAL STAFF CREDENTIALING COORDINATOR Visits 0 Evaluation Information Evaluation Date 05/10/20 PT-OP-B Current Condition Start: 05/10/20 13:35 Freq: Status: Active Protocol: Document 05/10/20 11:15 DCW (Rec: 05/10/20 13:48 DCW [id number]) Current Condition History of Current Condition Onset Date 4-5 months Current Complaints Low back pain/stiffness later in the day History of Current Condition Pt is a 75 year old male well known to this clinic presenting with a 4-5 month history of worsening low back pain. Pt notes his pain worsens throughout the day, but improves with rest. Notes that after walking more than ~ 1/2 mile, it hurts so much that he is unable to stand up straight. He is typically really sore when he gets to bed at night, and if he has to get up in the middie of the night to use the bathroom, it 's really painful, but then by the time morning comes and he gets up, he feels much better. He reports that he was told a number of years ago that his x-rays showed his discs were fusing, but pt feels this pain is more due to core weakness. Prior Treatments and Tests Multiple PT visits secondary to TKA, LE weakness, shoulder pain Personal Factors Other Personal Factors That May Effect Psoriatic arthritis Therapy/Recovery PT-OP-C Subjective Start: 05/10/20 13:35 Freq: Status: Active Protocol: Document 11/26/20 15:18 DCW (Rec: 11/26/20 16:07 DCW [id number]) OP-PT Subjective Patient Comments Patient Comments Pt feeling pretty good today, notes he feels more like 68 than 75 (years old). PT-OP-F Manual Assessment Start: 05/10/20 13:35 Freq: Status: Active Protocol: Document 11/04/20 13:45 DCW (Rec: 11/04/20 14:04 DCW [id number]) Manual Assessments Soft Tissue Assessment Soft Tissue Mobility Assessment Moderate tone along left-sided lumbar paraspinals, left QL, left adductors, and bilateral posterior hip Joint Mobility Assessment Joint Mobility Assessment Mild hypomobility of lumbar spine, with movement PT-OP-K Range of Motion Start: 05/10/20 13:35 Freq: Status: Active Protocol: Document 11/04/20 13:45 DCW (Rec: 11/04/20 14:04 DCW [id number]) Lumbar Spine Range of Motion Lumbar Spine Active Degrees Testing Position Standing Flexion 75 Extension 15 Lateral Flexion Left 55 Lateral Flexion Right 52 ROM Limitations Soft Tissue Tightness,Bony Restriction Comments Lateral flexion measured in cm from finger tips to floor PT-OP-L Special Tests Start: 05/10/20 13:35 Freq: Status: Active Protocol: Document 11/04/20 13:45 DCW (Rec: 11/04/20 14:04 DCW [id number]) Special Tests Lumbar Spine Special Tests Torsion Test Results Negative Vertical Spine Loading Test Results Negative A-P Shearing Test Results Negative Straight Leg Raise Test Results Hamstring stiffness R: 76?, L: 75? Standing Flexion Test Results Stiffness Slump Test Results Negative Passive Neck Flexion Test Results Negative PT-OP-M Strength Start: 05/10/20 13:35 Freq: Status: Active Protocol: Document 11/04/20 13:45 DCW (Rec: 11/04/20 14:04 DCW [id number]) Trunk Strength Trunk Manual Muscle Testing Core Stabilization Pt improved ability with dawson and holding TrA, 4 -/5 PT-OP-Q Treatments Start: 05/10/20 13:35 Freq: Status: Active Protocol: Document 11/26/20 15:18 DCW (Rec: 11/26/20 16:07 DCW [id number]) Gym Equipment Therapeutic Ball Resisted trunk rotation Exercise Details Resisted Trunk Rotation Ball Size/Color Green - 65 cm Lv 3 T-band Body Position Sitting Pelvic tilts/circles Exercise Details Pelvic tilts/circles Ball Size/Color Green - 65 cm Body Position Sitting Comments Use mirror for feedback Therapeutic Exercises Supine Exercises 1 Supine Exercise Name Piriformis stretch Side bilateral Hamstring Stretch Supine Exercise Name HS stretch Side bilateral Sitting Exercises 2 Sitting Exercise Name HS curl Side bilateral Resistance Lv 3 Equipment Used T-band 1 Sitting Exercise Name LAQ Side bilateral Resistance 10# Standing Exercises 1 Standing Exercise Name TKE Side bilateral Resistance Lv 3 Equipment Used T-band Manual Therapy Treatment Soft Tissue Mobilization 3 Body Location B Psoas Mobilization Type Strumming,Sustained Pressure Intensity/Depth Moderate 2 Body Location B Piriformis Mobilization Type Sustained Pressure Intensity/Depth Deep Body Position Sidelying 1 Body Location B lumbar paraspinals Mobilization Type Strumming,Sustained Pressure Intensity/Depth Moderate Body Position Sidelying Joint Mobilizations 2 Joint R Patellofemoral Direction Inf/sup Grade III 1 Joint Lumbar vertebrae Direction P->A PT-OP-T Assessment and Plan Start: 05/10/20 13:35 Freq: Status: Active Protocol: Document 11/26/20 15:18 DCW (Rec: 11/26/20 16:07 DCW [id number]) Physical Therapy Assessment Impairments Impairments Activity Tolerance,Functional Activities,Functional Mobility ,Pain,Posture,ROM,Strength Goals Four Impairment Pt displays limited lumbar ROM Group Home Goal (LTG) Lumbar flexion and extension to 50? and 25?, respectively LTG Duration 01/04/21 - Improving - 75? 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 LTG Duration 01/04/21 One Impairment Pt does not have appropriate home exercise program Short Term Goal (STG) Pt to be independent and compliant with an appropriate HEP STG Duration 12/05/20 - Progressing Progress Towards Goals Progress Towards Goals Progressing Toward Goals Assessment Summary Assessment Pt walking much better, less knee pain with all motions, able to ambulate upright due to decreased back pain. Physical Therapy Plan Frequency and Duration Frequency of Treatment 2x/Week Duration of Treatment two months Plan of Care Start Date 11/04/20 Plan of Care End Date 01/04/21 Therapeutic Interventions Therapeutic Interventions Home Exercise Program,Joint Mobilizations,Manual Therapy, Patient/Caregiver Education, Self-Care/Home Management,Soft Tissue Mobilization, Therapeutic Activities, Therapeutic Exercises Modalities Cold Pack/Ice Massage,Electric Stimulation,Hot Packs, Ultrasound Next Visit Focus/Plan Next Note Type Treatment Note Next Visit Plan Core strengthening, STM, joint mobilizations
--- NOTE | 2020-11-28 12:00 | PT.OTN ---
Current Diagnoses Other chronic pain (11/28/20) Stiffness of other specified joint, not elsewhere classified (11/28/20) Low back pain (11/28/20) Physical Therapy Treatment Note PT-OP-A Visit Information Start: 05/10/20 13:35 Freq: Status: Active Protocol: Document 11/28/20 11:21 DCW (Rec: 11/28/20 12:00 DCW [id number]) Out-Patient Physical Therapy Visit Information Visit Information Visit Type Treatment Note Visit Start Time Visit Stop Time 12:00 Total Visit Minutes 39 Visit Number 37 Number of VACUUM WORKER Visits 0 Evaluation Information Evaluation Date 05/10/20 PT-OP-B Current Condition Start: 05/10/20 13:35 Freq: Status: Active Protocol: Document 05/10/20 11:15 DCW (Rec: 05/10/20 13:48 DCW [id number]) Current Condition History of Current Condition Onset Date 4-5 months Current Complaints Low back pain/stiffness later in the day History of Current Condition Pt is a 75 year old male well known to this clinic presenting with a 4-5 month history of worsening low back pain. Pt notes his pain worsens throughout the day, but improves with rest. Notes that after walking more than ~ 1/2 mile, it hurts so much that he is unable to stand up straight. He is typically really sore when he gets to bed at night, and if he has to get up in the middie of the night to use the bathroom, it 's really painful, but then by the time morning comes and he gets up, he feels much better. He reports that he was told a number of years ago that his x-rays showed his discs were fusing, but pt feels this pain is more due to core weakness. Prior Treatments and Tests Multiple PT visits secondary to TKA, LE weakness, shoulder pain Personal Factors Other Personal Factors That May Effect Psoriatic arthritis Therapy/Recovery PT-OP-C Subjective Start: 05/10/20 13:35 Freq: Status: Active Protocol: Document 11/28/20 11:21 DCW (Rec: 11/28/20 12:00 DCW [id number]) OP-PT Subjective Patient Comments Patient Comments Pt doing well overall today. PT-OP-F Manual Assessment Start: 05/10/20 13:35 Freq: Status: Active Protocol: Document 11/04/20 13:45 DCW (Rec: 11/04/20 14:04 DCW [id number]) Manual Assessments Soft Tissue Assessment Soft Tissue Mobility Assessment Moderate tone along left-sided lumbar paraspinals, left QL, left adductors, and bilateral posterior hip Joint Mobility Assessment Joint Mobility Assessment Mild hypomobility of lumbar spine, with movement PT-OP-K Range of Motion Start: 05/10/20 13:35 Freq: Status: Active Protocol: Document 11/04/20 13:45 DCW (Rec: 11/04/20 14:04 DCW [id number]) Lumbar Spine Range of Motion Lumbar Spine Active Degrees Testing Position Standing Flexion 75 Extension 15 Lateral Flexion Left 55 Lateral Flexion Right 52 ROM Limitations Soft Tissue Tightness,Bony Restriction Comments Lateral flexion measured in cm from finger tips to floor PT-OP-L Special Tests Start: 05/10/20 13:35 Freq: Status: Active Protocol: Document 11/04/20 13:45 DCW (Rec: 11/04/20 14:04 DCW [id number]) Special Tests Lumbar Spine Special Tests Torsion Test Results Negative Vertical Spine Loading Test Results Negative A-P Shearing Test Results Negative Straight Leg Raise Test Results Hamstring stiffness R: 76?, L: 75? Standing Flexion Test Results Stiffness Slump Test Results Negative Passive Neck Flexion Test Results Negative PT-OP-M Strength Start: 05/10/20 13:35 Freq: Status: Active Protocol: Document 11/04/20 13:45 DCW (Rec: 11/04/20 14:04 DCW [id number]) Trunk Strength Trunk Manual Muscle Testing Core Stabilization Pt improved ability with dawson and holding TrA, 4 -/5 PT-OP-Q Treatments Start: 05/10/20 13:35 Freq: Status: Active Protocol: Document 11/28/20 11:21 DCW (Rec: 11/28/20 12:00 DCW [id number]) Gym Equipment Therapeutic Ball Resisted trunk rotation Exercise Details Resisted Trunk Rotation Ball Size/Color Green - 65 cm Lv 3 T-band Body Position Sitting Pelvic tilts/circles Exercise Details Pelvic tilts/circles Ball Size/Color Green - 65 cm Body Position Sitting Comments Use mirror for feedback Therapeutic Exercises Standing Exercises 1 Standing Exercise Name TKE Side bilateral Resistance Lv 3 Equipment Used T-band Manual Therapy Treatment Soft Tissue Mobilization 3 Body Location B Psoas Mobilization Type Strumming,Sustained Pressure Intensity/Depth Moderate 2 Body Location B Piriformis Mobilization Type Sustained Pressure Intensity/Depth Deep Body Position Sidelying 1 Body Location B lumbar paraspinals Mobilization Type Strumming,Sustained Pressure Intensity/Depth Moderate Body Position Sidelying Joint Mobilizations 2 Joint R Patellofemoral Direction Inf/sup Grade III 1 Joint Lumbar vertebrae Direction P->A PT-OP-T Assessment and Plan Start: 05/10/20 13:35 Freq: Status: Active Protocol: Document 11/28/20 11:21 DCW (Rec: 11/28/20 12:00 DCW [id number]) Physical Therapy Assessment Impairments Impairments Activity Tolerance,Functional Activities,Functional Mobility ,Pain,Posture,ROM,Strength Goals Four Impairment Pt displays limited lumbar ROM Ferryboat Helper Goal (LTG) Lumbar flexion and extension to 50? and 25?, respectively LTG Duration 01/04/21 - Improving - 75? flexion Three Impairment Pt unable to tolerate working in his workshop in the PM due to back pain Ferryboat Helper Goal (LTG) 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 to spend evenings in his workshop after a day of activity with no increased back pain or stiffness LTG Duration 01/04/21 Two Impairment Pt has severe back pain and is unable to stand straight after walking .5 mi Ferryboat Helper Goal (LTG) Pt to ambulate 1.5 miles with no increase in back pain. LTG Duration 01/04/21 One Impairment Pt does not have appropriate home exercise program Short Term Goal (STG) Pt to be independent and compliant with an appropriate HEP STG Duration 12/05/20 - Progressing Progress Towards Goals Progress Towards Goals Progressing Toward Goals Assessment Summary Assessment Pt continues to show some improvement, happy with his current progress. Physical Therapy Plan Frequency and Duration Frequency of Treatment 2x/Week Duration of Treatment two months Plan of Care Start Date 11/04/20 Plan of Care End Date 01/04/21 Therapeutic Interventions Therapeutic Interventions Home Exercise Program,Joint Mobilizations,Manual Therapy, Patient/Caregiver Education, Self-Care/Home Management,Soft Tissue Mobilization, Therapeutic Activities, Therapeutic Exercises Modalities Cold Pack/Ice Massage,Electric Stimulation,Hot Packs, Ultrasound Next Visit Focus/Plan Next Note Type Treatment Note Next Visit Plan Core strengthening, STM, joint mobilizations
--- NOTE | 2020-12-04 11:19 | PT.OTN ---
Current Diagnoses Other chronic pain (12/04/20) Stiffness of other specified joint, not elsewhere classified (12/04/20) Low back pain (12/04/20) Physical Therapy Treatment Note PT-OP-A Visit Information Start: 05/10/20 13:35 Freq: Status: Active Protocol: Document 12/04/20 10:30 DCW (Rec: 12/04/20 11:18 DCW [id number]) Out-Patient Physical Therapy Visit Information Visit Information Visit Type Treatment Note Visit Start Time 10:30 Visit Stop Time 11:15 Total Visit Minutes 45 Visit Number 38 Number of CARGO INSPECTOR Visits 0 Evaluation Information Evaluation Date 05/10/20 PT-OP-B Current Condition Start: 05/10/20 13:35 Freq: Status: Active Protocol: Document 05/10/20 11:15 DCW (Rec: 05/10/20 13:48 DCW [id number]) Current Condition History of Current Condition Onset Date 4-5 months Current Complaints Low back pain/stiffness later in the day History of Current Condition Pt is a 75 year old male well known to this clinic presenting with a 4-5 month history of worsening low back pain. Pt notes his pain worsens throughout the day, but improves with rest. Notes that after walking more than ~ 1/2 mile, it hurts so much that he is unable to stand up straight. He is typically really sore when he gets to bed at night, and if he has to get up in the middie of the night to use the bathroom, it 's really painful, but then by the time morning comes and he gets up, he feels much better. He reports that he was told a number of years ago that his x-rays showed his discs were fusing, but pt feels this pain is more due to core weakness. Prior Treatments and Tests Multiple PT visits secondary to TKA, LE weakness, shoulder pain Personal Factors Other Personal Factors That May Effect Psoriatic arthritis Therapy/Recovery PT-OP-C Subjective Start: 05/10/20 13:35 Freq: Status: Active Protocol: Document 12/04/20 10:30 DCW (Rec: 12/04/20 11:18 DCW [id number]) OP-PT Subjective Patient Comments Patient Comments Pt reports that he is continuing to do his exercises in the morning, and he is having much less overall back pain. PT-OP-F Manual Assessment Start: 05/10/20 13:35 Freq: Status: Active Protocol: Document 11/04/20 13:45 DCW (Rec: 11/04/20 14:04 DCW [id number]) Manual Assessments Soft Tissue Assessment Soft Tissue Mobility Assessment Moderate tone along left-sided lumbar paraspinals, left QL, left adductors, and bilateral posterior hip Joint Mobility Assessment Joint Mobility Assessment Mild hypomobility of lumbar spine, with movement PT-OP-K Range of Motion Start: 05/10/20 13:35 Freq: Status: Active Protocol: Document 11/04/20 13:45 DCW (Rec: 11/04/20 14:04 DCW [id number]) Lumbar Spine Range of Motion Lumbar Spine Active Degrees Testing Position Standing Flexion 75 Extension 15 Lateral Flexion Left 55 Lateral Flexion Right 52 ROM Limitations Soft Tissue Tightness,Bony Restriction Comments Lateral flexion measured in cm from finger tips to floor PT-OP-L Special Tests Start: 05/10/20 13:35 Freq: Status: Active Protocol: Document 11/04/20 13:45 DCW (Rec: 11/04/20 14:04 DCW [id number]) Special Tests Lumbar Spine Special Tests Torsion Test Results Negative Vertical Spine Loading Test Results Negative A-P Shearing Test Results Negative Straight Leg Raise Test Results Hamstring stiffness R: 76?, L: 75? Standing Flexion Test Results Stiffness Slump Test Results Negative Passive Neck Flexion Test Results Negative PT-OP-M Strength Start: 05/10/20 13:35 Freq: Status: Active Protocol: Document 11/04/20 13:45 DCW (Rec: 11/04/20 14:04 DCW [id number]) Trunk Strength Trunk Manual Muscle Testing Core Stabilization Pt improved ability with dawson and holding TrA, 4 -/5 PT-OP-Q Treatments Start: 05/10/20 13:35 Freq: Status: Active Protocol: Document 12/04/20 10:30 DCW (Rec: 12/04/20 11:18 DCW [id number]) Gym Equipment Therapeutic Ball Resisted trunk rotation Exercise Details Resisted Trunk Rotation Ball Size/Color Green - 65 cm Lv 3 T-band Body Position Sitting Pelvic tilts/circles Exercise Details Pelvic tilts/circles Ball Size/Color Green - 65 cm Body Position Sitting Comments Use mirror for feedback Therapeutic Exercises Sitting Exercises 2 Sitting Exercise Name HS curl Side bilateral Resistance Lv 3 Equipment Used T-band 1 Sitting Exercise Name LAQ Side bilateral Resistance 10# Standing Exercises 1 Standing Exercise Name TKE Side bilateral Resistance Lv 3 Equipment Used T-band Manual Therapy Treatment Soft Tissue Mobilization 3 Body Location B Psoas Mobilization Type Strumming,Sustained Pressure Intensity/Depth Moderate 2 Body Location B Piriformis Mobilization Type Sustained Pressure Intensity/Depth Deep Body Position Sidelying 1 Body Location B lumbar paraspinals Mobilization Type Strumming,Sustained Pressure Intensity/Depth Moderate Body Position Sidelying Joint Mobilizations 2 Joint R Patellofemoral Direction Inf/sup Grade III 1 Joint Lumbar vertebrae Direction P->A PT-OP-T Assessment and Plan Start: 05/10/20 13:35 Freq: Status: Active Protocol: Document 12/04/20 10:30 DCW (Rec: 12/04/20 11:18 DCW [id number]) Physical Therapy Assessment Impairments Impairments Activity Tolerance,Functional Activities,Functional Mobility ,Pain,Posture,ROM,Strength Goals Four Impairment Pt displays limited lumbar ROM Correction Goal (LTG) Lumbar flexion and extension to 50? and 25?, respectively LTG Duration 01/04/21 - Improving - 75? flexion Three Impairment Pt unable to tolerate working in his workshop in the PM due to back pain Correction Goal (LTG) 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 to spend evenings in his workshop after a day of activity with no increased back pain or stiffness LTG Duration 01/04/21 Two Impairment Pt has severe back pain and is unable to stand straight after walking .5 mi Information Support Project Manager Goal (LTG) Pt to ambulate 1.5 miles with no increase in back pain. LTG Duration 01/04/21 One Impairment Pt does not have appropriate home exercise program Short Term Goal (STG) Pt to be independent and compliant with an appropriate HEP STG Duration 12/05/20 - Progressing Progress Towards Goals Progress Towards Goals Progressing Toward Goals Assessment Summary Assessment Pt's knee a little more sore today, but feeling good with his overall progress. Pt clearly moving easier, minimal limping or antalgia. Physical Therapy Plan Frequency and Duration Frequency of Treatment 2x/Week Duration of Treatment two months Plan of Care Start Date 11/04/20 Plan of Care End Date 01/04/21 Therapeutic Interventions Therapeutic Interventions Home Exercise Program,Joint Mobilizations,Manual Therapy, Patient/Caregiver Education, Self-Care/Home Management,Soft Tissue Mobilization, Therapeutic Activities, Therapeutic Exercises Modalities Cold Pack/Ice Massage,Electric Stimulation,Hot Packs, Ultrasound Next Visit Focus/Plan Next Note Type Treatment Note Next Visit Plan Core strengthening, STM, joint mobilizations
--- NOTE | 2020-12-06 10:30 | PT.OTN ---
Current Diagnoses Other chronic pain (12/06/20) Stiffness of other specified joint, not elsewhere classified (12/06/20) Low back pain (12/06/20) Physical Therapy Treatment Note PT-OP-A Visit Information Start: 05/10/20 13:35 Freq: Status: Active Protocol: Document 12/06/20 09:45 DCW (Rec: 12/06/20 10:30 DCW [id number]) Out-Patient Physical Therapy Visit Information Visit Information Visit Type Treatment Note Visit Start Time 09:45 Visit Stop Time 10:30 Total Visit Minutes 45 Visit Number 39 Number of CHEESE PACKER Visits 0 Evaluation Information Evaluation Date 05/10/20 PT-OP-B Current Condition Start: 05/10/20 13:35 Freq: Status: Active Protocol: Document 05/10/20 11:15 DCW (Rec: 05/10/20 13:48 DCW [id number]) Current Condition History of Current Condition Onset Date 4-5 months Current Complaints Low back pain/stiffness later in the day History of Current Condition Pt is a 75 year old male well known to this clinic presenting with a 4-5 month history of worsening low back pain. Pt notes his pain worsens throughout the day, but improves with rest. Notes that after walking more than ~ 1/2 mile, it hurts so much that he is unable to stand up straight. He is typically really sore when he gets to bed at night, and if he has to get up in the middie of the night to use the bathroom, it 's really painful, but then by the time morning comes and he gets up, he feels much better. He reports that he was told a number of years ago that his x-rays showed his discs were fusing, but pt feels this pain is more due to core weakness. Prior Treatments and Tests Multiple PT visits secondary to TKA, LE weakness, shoulder pain Personal Factors Other Personal Factors That May Effect Psoriatic arthritis Therapy/Recovery PT-OP-C Subjective Start: 05/10/20 13:35 Freq: Status: Active Protocol: Document 12/06/20 09:45 DCW (Rec: 12/06/20 10:29 DCW [id number]) OP-PT Subjective Patient Comments Patient Comments Pt reports he is having a rough morning, This (right) knee is really giving me trouble, I spent too much time in the shop yesterday, and I' m really paying for it. PT-OP-F Manual Assessment Start: 05/10/20 13:35 Freq: Status: Active Protocol: Document 11/04/20 13:45 DCW (Rec: 11/04/20 14:04 DCW [id number]) Manual Assessments Soft Tissue Assessment Soft Tissue Mobility Assessment Moderate tone along left-sided lumbar paraspinals, left QL, left adductors, and bilateral posterior hip Joint Mobility Assessment Joint Mobility Assessment Mild hypomobility of lumbar spine, with movement PT-OP-K Range of Motion Start: 05/10/20 13:35 Freq: Status: Active Protocol: Document 11/04/20 13:45 DCW (Rec: 11/04/20 14:04 DCW [id number]) Lumbar Spine Range of Motion Lumbar Spine Active Degrees Testing Position Standing Flexion 75 Extension 15 Lateral Flexion Left 55 Lateral Flexion Right 52 ROM Limitations Soft Tissue Tightness,Bony Restriction Comments Lateral flexion measured in cm from finger tips to floor PT-OP-L Special Tests Start: 05/10/20 13:35 Freq: Status: Active Protocol: Document 11/04/20 13:45 DCW (Rec: 11/04/20 14:04 DCW [id number]) Special Tests Lumbar Spine Special Tests Torsion Test Results Negative Vertical Spine Loading Test Results Negative A-P Shearing Test Results Negative Straight Leg Raise Test Results Hamstring stiffness R: 76?, L: 75? Standing Flexion Test Results Stiffness Slump Test Results Negative Passive Neck Flexion Test Results Negative PT-OP-M Strength Start: 05/10/20 13:35 Freq: Status: Active Protocol: Document 11/04/20 13:45 DCW (Rec: 11/04/20 14:04 DCW [id number]) Trunk Strength Trunk Manual Muscle Testing Core Stabilization Pt improved ability with dawson and holding TrA, 4 -/5 PT-OP-Q Treatments Start: 05/10/20 13:35 Freq: Status: Active Protocol: Document 12/06/20 09:45 DCW (Rec: 12/06/20 10:29 DCW [id number]) Gym Equipment Therapeutic Ball Resisted trunk rotation Exercise Details Resisted Trunk Rotation Ball Size/Color Green - 65 cm Lv 3 T-band Body Position Sitting Pelvic tilts/circles Exercise Details Pelvic tilts/circles Ball Size/Color Green - 65 cm Body Position Sitting Comments Use mirror for feedback Therapeutic Exercises Sitting Exercises 2 Sitting Exercise Name HS curl Side bilateral Resistance Lv 3 Equipment Used T-band 1 Sitting Exercise Name LAQ Side bilateral Resistance 10# Standing Exercises 1 Standing Exercise Name TKE Side bilateral Resistance Lv 3 Equipment Used T-band Manual Therapy Treatment Soft Tissue Mobilization 3 Body Location B Psoas Mobilization Type Strumming,Sustained Pressure Intensity/Depth Moderate 2 Body Location B Piriformis Mobilization Type Sustained Pressure Intensity/Depth Deep Body Position Sidelying 1 Body Location B lumbar paraspinals Mobilization Type Strumming,Sustained Pressure Intensity/Depth Moderate Body Position Sidelying Joint Mobilizations 2 Joint R Patellofemoral Direction Inf/sup Grade III 1 Joint Lumbar vertebrae Direction P->A PT-OP-T Assessment and Plan Start: 05/10/20 13:35 Freq: Status: Active Protocol: Document 12/06/20 09:45 DCW (Rec: 12/06/20 10:29 DCW [id number]) Physical Therapy Assessment Impairments Impairments Activity Tolerance,Functional Activities,Functional Mobility ,Pain,Posture,ROM,Strength Goals Four Impairment Pt displays limited lumbar ROM Nursing Home Goal (LTG) Lumbar flexion and extension to 50? and 25?, respectively LTG Duration 01/04/21 - Improving - 75? flexion Three Impairment Pt unable to tolerate working in his workshop in the PM due to back pain Processing Operator Goal (LTG) 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 to spend evenings in his workshop after a day of activity with no increased back pain or stiffness LTG Duration 01/04/21 Two Impairment Pt has severe back pain and is unable to stand straight after walking .5 mi Processing Operator Goal (LTG) Pt to ambulate 1.5 miles with no increase in back pain. LTG Duration 01/04/21 One Impairment Pt does not have appropriate home exercise program Short Term Goal (STG) Pt to be independent and compliant with an appropriate HEP STG Duration 12/05/20 - Progressing Progress Towards Goals Progress Towards Goals Progressing Toward Goals Assessment Summary Assessment Pt had more difficulty with mobility today, soreness getting up and off table. Advised pt again to try to limit daily standing in workshop. Physical Therapy Plan Frequency and Duration Frequency of Treatment 2x/Week Duration of Treatment two months Plan of Care Start Date 11/04/20 Plan of Care End Date 01/04/21 Therapeutic Interventions Therapeutic Interventions Home Exercise Program,Joint Mobilizations,Manual Therapy, Patient/Caregiver Education, Self-Care/Home Management,Soft Tissue Mobilization, Therapeutic Activities, Therapeutic Exercises Modalities Cold Pack/Ice Massage,Electric Stimulation,Hot Packs, Ultrasound Next Visit Focus/Plan Next Note Type Treatment Note Next Visit Plan Core strengthening, STM, joint mobilizations
--- NOTE | 2020-12-09 11:10 | PT.OTN ---
Current Diagnoses Other chronic pain (12/09/20) Stiffness of other specified joint, not elsewhere classified (12/09/20) Low back pain (12/09/20) Physical Therapy Treatment Note PT-OP-A Visit Information Start: 05/10/20 13:35 Freq: Status: Active Protocol: Document 12/09/20 10:30 DCW (Rec: 12/09/20 11:10 DCW [id number]) Out-Patient Physical Therapy Visit Information Visit Information Visit Type Treatment Note Visit Start Time 10:30 Visit Stop Time 11:15 Total Visit Minutes 45 Visit Number 40 Number of MATERIAL CHASER Visits 0 Evaluation Information Evaluation Date 05/10/20 PT-OP-B Current Condition Start: 05/10/20 13:35 Freq: Status: Active Protocol: Document 05/10/20 11:15 DCW (Rec: 05/10/20 13:48 DCW [id number]) Current Condition History of Current Condition Onset Date 4-5 months Current Complaints Low back pain/stiffness later in the day History of Current Condition Pt is a 75 year old male well known to this clinic presenting with a 4-5 month history of worsening low back pain. Pt notes his pain worsens throughout the day, but improves with rest. Notes that after walking more than ~ 1/2 mile, it hurts so much that he is unable to stand up straight. He is typically really sore when he gets to bed at night, and if he has to get up in the middie of the night to use the bathroom, it 's really painful, but then by the time morning comes and he gets up, he feels much better. He reports that he was told a number of years ago that his x-rays showed his discs were fusing, but pt feels this pain is more due to core weakness. Prior Treatments and Tests Multiple PT visits secondary to TKA, LE weakness, shoulder pain Personal Factors Other Personal Factors That May Effect Psoriatic arthritis Therapy/Recovery PT-OP-C Subjective Start: 05/10/20 13:35 Freq: Status: Active Protocol: Document 12/09/20 10:30 DCW (Rec: 12/09/20 11:10 DCW [id number]) OP-PT Subjective Patient Comments Patient Comments Pt feeling better today, had his Remicade infusion last Wednesday, it finally kicked in over the weekend, and everything is doing much better. PT-OP-F Manual Assessment Start: 05/10/20 13:35 Freq: Status: Active Protocol: Document 11/04/20 13:45 DCW (Rec: 11/04/20 14:04 DCW [id number]) Manual Assessments Soft Tissue Assessment Soft Tissue Mobility Assessment Moderate tone along left-sided lumbar paraspinals, left QL, left adductors, and bilateral posterior hip Joint Mobility Assessment Joint Mobility Assessment Mild hypomobility of lumbar spine, with movement PT-OP-K Range of Motion Start: 05/10/20 13:35 Freq: Status: Active Protocol: Document 11/04/20 13:45 DCW (Rec: 11/04/20 14:04 DCW [id number]) Lumbar Spine Range of Motion Lumbar Spine Active Degrees Testing Position Standing Flexion 75 Extension 15 Lateral Flexion Left 55 Lateral Flexion Right 52 ROM Limitations Soft Tissue Tightness,Bony Restriction Comments Lateral flexion measured in cm from finger tips to floor PT-OP-L Special Tests Start: 05/10/20 13:35 Freq: Status: Active Protocol: Document 11/04/20 13:45 DCW (Rec: 11/04/20 14:04 DCW [id number]) Special Tests Lumbar Spine Special Tests Torsion Test Results Negative Vertical Spine Loading Test Results Negative A-P Shearing Test Results Negative Straight Leg Raise Test Results Hamstring stiffness R: 76?, L: 75? Standing Flexion Test Results Stiffness Slump Test Results Negative Passive Neck Flexion Test Results Negative PT-OP-M Strength Start: 05/10/20 13:35 Freq: Status: Active Protocol: Document 11/04/20 13:45 DCW (Rec: 11/04/20 14:04 DCW [id number]) Trunk Strength Trunk Manual Muscle Testing Core Stabilization Pt improved ability with dawson and holding TrA, 4 -/5 PT-OP-Q Treatments Start: 05/10/20 13:35 Freq: Status: Active Protocol: Document 12/09/20 10:30 DCW (Rec: 12/09/20 11:10 DCW [id number]) Gym Equipment Therapeutic Ball Resisted trunk rotation Exercise Details Resisted Trunk Rotation Ball Size/Color Green - 65 cm Lv 3 T-band Body Position Sitting Pelvic tilts/circles Exercise Details Pelvic tilts/circles Ball Size/Color Green - 65 cm Body Position Sitting Comments Use mirror for feedback Therapeutic Exercises Supine Exercises 1 Supine Exercise Name Piriformis stretch Side bilateral Hamstring Stretch Supine Exercise Name HS stretch Side bilateral Sitting Exercises 2 Sitting Exercise Name HS curl Side bilateral Resistance Lv 3 Equipment Used T-band 1 Sitting Exercise Name LAQ Side bilateral Resistance 10# Standing Exercises 1 Standing Exercise Name TKE Side bilateral Resistance Lv 3 Equipment Used T-band Manual Therapy Treatment Soft Tissue Mobilization 3 Body Location B Psoas Mobilization Type Strumming,Sustained Pressure Intensity/Depth Moderate 2 Body Location B Piriformis Mobilization Type Sustained Pressure Intensity/Depth Deep Body Position Sidelying 1 Body Location B lumbar paraspinals Mobilization Type Strumming,Sustained Pressure Intensity/Depth Moderate Body Position Sidelying Joint Mobilizations 2 Joint R Patellofemoral Direction Inf/sup Grade III 1 Joint Lumbar vertebrae Direction P->A PT-OP-T Assessment and Plan Start: 05/10/20 13:35 Freq: Status: Active Protocol: Document 12/09/20 10:30 DCW (Rec: 12/09/20 11:10 DCW [id number]) Physical Therapy Assessment Impairments Impairments Activity Tolerance,Functional Activities,Functional Mobility ,Pain,Posture,ROM,Strength Goals Four Impairment Pt displays limited lumbar ROM Nursing Home Goal (LTG) Lumbar flexion and extension to 50? and 25?, respectively LTG Duration 01/04/21 - Improving - 75? 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 LTG Duration 01/04/21 One Impairment Pt does not have appropriate home exercise program Short Term Goal (STG) Pt to be independent and compliant with an appropriate HEP STG Duration 12/05/20 - Progressing Progress Towards Goals Progress Towards Goals Progressing Toward Goals Assessment Summary Assessment Pt moving much better today following his infusion last week. Appears to be the greatest factor in pt's mobility. Physical Therapy Plan Frequency and Duration Frequency of Treatment 2x/Week Duration of Treatment two months Plan of Care Start Date 11/04/20 Plan of Care End Date 01/04/21 Therapeutic Interventions Therapeutic Interventions Home Exercise Program,Joint Mobilizations,Manual Therapy, Patient/Caregiver Education, Self-Care/Home Management,Soft Tissue Mobilization, Therapeutic Activities, Therapeutic Exercises Modalities Cold Pack/Ice Massage,Electric Stimulation,Hot Packs, Ultrasound Next Visit Focus/Plan Next Note Type Treatment Note Next Visit Plan Core strengthening, STM, joint mobilizations
--- NOTE | 2020-12-11 11:15 | PT.OTN ---
Current Diagnoses Other chronic pain (12/11/20) Stiffness of other specified joint, not elsewhere classified (12/11/20) Low back pain (12/11/20) Physical Therapy Treatment Note PT-OP-A Visit Information Start: 05/10/20 13:35 Freq: Status: Active Protocol: Document 12/11/20 10:30 DCW (Rec: 12/11/20 11:15 DCW [id number]) Out-Patient Physical Therapy Visit Information Visit Information Visit Type Treatment Note Visit Start Time 10:30 Visit Stop Time 11:15 Total Visit Minutes 45 Visit Number 41 Number of INTERVENTIONAL PAIN PHYSICIAN Visits 0 Evaluation Information Evaluation Date 05/10/20 PT-OP-B Current Condition Start: 05/10/20 13:35 Freq: Status: Active Protocol: Document 05/10/20 11:15 DCW (Rec: 05/10/20 13:48 DCW [id number]) Current Condition History of Current Condition Onset Date 4-5 months Current Complaints Low back pain/stiffness later in the day History of Current Condition Pt is a 75 year old male well known to this clinic presenting with a 4-5 month history of worsening low back pain. Pt notes his pain worsens throughout the day, but improves with rest. Notes that after walking more than ~ 1/2 mile, it hurts so much that he is unable to stand up straight. He is typically really sore when he gets to bed at night, and if he has to get up in the middie of the night to use the bathroom, it 's really painful, but then by the time morning comes and he gets up, he feels much better. He reports that he was told a number of years ago that his x-rays showed his discs were fusing, but pt feels this pain is more due to core weakness. Prior Treatments and Tests Multiple PT visits secondary to TKA, LE weakness, shoulder pain Personal Factors Other Personal Factors That May Effect Psoriatic arthritis Therapy/Recovery PT-OP-C Subjective Start: 05/10/20 13:35 Freq: Status: Active Protocol: Document 12/11/20 10:30 DCW (Rec: 12/11/20 11:15 DCW [id number]) OP-PT Subjective Patient Comments Patient Comments Pt reports he is feeling pretty good at the moment. PT-OP-F Manual Assessment Start: 05/10/20 13:35 Freq: Status: Active Protocol: Document 11/04/20 13:45 DCW (Rec: 11/04/20 14:04 DCW [id number]) Manual Assessments Soft Tissue Assessment Soft Tissue Mobility Assessment Moderate tone along left-sided lumbar paraspinals, left QL, left adductors, and bilateral posterior hip Joint Mobility Assessment Joint Mobility Assessment Mild hypomobility of lumbar spine, with movement PT-OP-K Range of Motion Start: 05/10/20 13:35 Freq: Status: Active Protocol: Document 11/04/20 13:45 DCW (Rec: 11/04/20 14:04 DCW [id number]) Lumbar Spine Range of Motion Lumbar Spine Active Degrees Testing Position Standing Flexion 75 Extension 15 Lateral Flexion Left 55 Lateral Flexion Right 52 ROM Limitations Soft Tissue Tightness,Bony Restriction Comments Lateral flexion measured in cm from finger tips to floor PT-OP-L Special Tests Start: 05/10/20 13:35 Freq: Status: Active Protocol: Document 11/04/20 13:45 DCW (Rec: 11/04/20 14:04 DCW [id number]) Special Tests Lumbar Spine Special Tests Torsion Test Results Negative Vertical Spine Loading Test Results Negative A-P Shearing Test Results Negative Straight Leg Raise Test Results Hamstring stiffness R: 76?, L: 75? Standing Flexion Test Results Stiffness Slump Test Results Negative Passive Neck Flexion Test Results Negative PT-OP-M Strength Start: 05/10/20 13:35 Freq: Status: Active Protocol: Document 11/04/20 13:45 DCW (Rec: 11/04/20 14:04 DCW [id number]) Trunk Strength Trunk Manual Muscle Testing Core Stabilization Pt improved ability with dawson and holding TrA, 4 -/5 PT-OP-Q Treatments Start: 05/10/20 13:35 Freq: Status: Active Protocol: Document 12/11/20 10:30 DCW (Rec: 12/11/20 11:15 DCW [id number]) Gym Equipment Therapeutic Ball Resisted trunk rotation Exercise Details Resisted Trunk Rotation Ball Size/Color Green - 65 cm Lv 3 T-band Body Position Sitting Pelvic tilts/circles Exercise Details Pelvic tilts/circles Ball Size/Color Green - 65 cm Body Position Sitting Comments Use mirror for feedback Therapeutic Exercises Supine Exercises 1 Supine Exercise Name Piriformis stretch Side bilateral Hamstring Stretch Supine Exercise Name HS stretch Side bilateral Sitting Exercises 2 Sitting Exercise Name HS curl Side bilateral Resistance Lv 3 Equipment Used T-band 1 Sitting Exercise Name LAQ Side bilateral Resistance 10# Standing Exercises 1 Standing Exercise Name TKE Side bilateral Resistance Lv 3 Equipment Used T-band Manual Therapy Treatment Soft Tissue Mobilization 3 Body Location B Psoas Mobilization Type Strumming,Sustained Pressure Intensity/Depth Moderate 2 Body Location B Piriformis Mobilization Type Sustained Pressure Intensity/Depth Deep Body Position Sidelying 1 Body Location B lumbar paraspinals Mobilization Type Strumming,Sustained Pressure Intensity/Depth Moderate Body Position Sidelying Joint Mobilizations 2 Joint R Patellofemoral Direction Inf/sup Grade III 1 Joint Lumbar vertebrae Direction P->A PT-OP-T Assessment and Plan Start: 05/10/20 13:35 Freq: Status: Active Protocol: Document 12/11/20 10:30 DCW (Rec: 12/11/20 11:15 DCW [id number]) Physical Therapy Assessment Impairments Impairments Activity Tolerance,Functional Activities,Functional Mobility ,Pain,Posture,ROM,Strength Goals Four Impairment Pt displays limited lumbar ROM Donkey Doctor Goal (LTG) Lumbar flexion and extension to 50? and 25?, respectively LTG Duration 01/04/21 - Improving - 75? flexion Three Impairment Pt unable to tolerate working in his workshop in the PM due to back pain Donkey Doctor Goal (LTG) 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 to spend evenings in his workshop after a day of activity with no increased back pain or stiffness LTG Duration 01/04/21 Two Impairment Pt has severe back pain and is unable to stand straight after walking .5 mi Donkey Doctor Goal (LTG) Pt to ambulate 1.5 miles with no increase in back pain. LTG Duration 01/04/21 One Impairment Pt does not have appropriate home exercise program Short Term Goal (STG) Pt to be independent and compliant with an appropriate HEP STG Duration 12/05/20 - Progressing Progress Towards Goals Progress Towards Goals Progressing Toward Goals Assessment Summary Assessment Pt continues to be moving better, less pain overall, minimal antalgia during gait. Physical Therapy Plan Frequency and Duration Frequency of Treatment 2x/Week Duration of Treatment two months Plan of Care Start Date 11/04/20 Plan of Care End Date 01/04/21 Therapeutic Interventions Therapeutic Interventions Home Exercise Program,Joint Mobilizations,Manual Therapy, Patient/Caregiver Education, Self-Care/Home Management,Soft Tissue Mobilization, Therapeutic Activities, Therapeutic Exercises Modalities Cold Pack/Ice Massage,Electric Stimulation,Hot Packs, Ultrasound Next Visit Focus/Plan Next Note Type Treatment Note Next Visit Plan Core strengthening, STM, joint mobilizations
--- NOTE | 2020-12-23 11:13 | PT.OTN ---
Current Diagnoses Other chronic pain (12/23/20) Stiffness of other specified joint, not elsewhere classified (12/23/20) Low back pain (12/23/20) Physical Therapy Treatment Note PT-OP-A Visit Information Start: 05/10/20 13:35 Freq: Status: Active Protocol: Document 12/23/20 10:30 DCW (Rec: 12/23/20 11:13 DCW [id number]) Out-Patient Physical Therapy Visit Information Visit Information Visit Type Treatment Note Visit Start Time 10:30 Visit Stop Time 11:15 Total Visit Minutes 45 Visit Number 42 Number of MANAGER DELI Visits 0 Evaluation Information Evaluation Date 05/10/20 PT-OP-B Current Condition Start: 05/10/20 13:35 Freq: Status: Active Protocol: Document 05/10/20 11:15 DCW (Rec: 05/10/20 13:48 DCW [id number]) Current Condition History of Current Condition Onset Date 4-5 months Current Complaints Low back pain/stiffness later in the day History of Current Condition Pt is a 75 year old male well known to this clinic presenting with a 4-5 month history of worsening low back pain. Pt notes his pain worsens throughout the day, but improves with rest. Notes that after walking more than ~ 1/2 mile, it hurts so much that he is unable to stand up straight. He is typically really sore when he gets to bed at night, and if he has to get up in the middie of the night to use the bathroom, it 's really painful, but then by the time morning comes and he gets up, he feels much better. He reports that he was told a number of years ago that his x-rays showed his discs were fusing, but pt feels this pain is more due to core weakness. Prior Treatments and Tests Multiple PT visits secondary to TKA, LE weakness, shoulder pain Personal Factors Other Personal Factors That May Effect Psoriatic arthritis Therapy/Recovery PT-OP-C Subjective Start: 05/10/20 13:35 Freq: Status: Active Protocol: Document 12/23/20 10:30 DCW (Rec: 12/23/20 11:13 DCW [id number]) OP-PT Subjective Patient Comments Patient Comments Pt notes he is feeling pretty good today. PT-OP-F Manual Assessment Start: 11/06/20 13:35 Freq: Status: Active Protocol: Document 11/04/20 13:45 DCW (Rec: 11/04/20 14:04 DCW [id number]) Manual Assessments Soft Tissue Assessment Soft Tissue Mobility Assessment Moderate tone along left-sided lumbar paraspinals, left QL, left adductors, and bilateral posterior hip Joint Mobility Assessment Joint Mobility Assessment Mild hypomobility of lumbar spine, with movement PT-OP-K Range of Motion Start: 05/10/20 13:35 Freq: Status: Active Protocol: Document 11/04/20 13:45 DCW (Rec: 11/04/20 14:04 DCW [id number]) Lumbar Spine Range of Motion Lumbar Spine Active Degrees Testing Position Standing Flexion 75 Extension 15 Lateral Flexion Left 55 Lateral Flexion Right 52 ROM Limitations Soft Tissue Tightness,Bony Restriction Comments Lateral flexion measured in cm from finger tips to floor PT-OP-L Special Tests Start: 05/10/20 13:35 Freq: Status: Active Protocol: Document 11/04/20 13:45 DCW (Rec: 11/04/20 14:04 DCW [id number]) Special Tests Lumbar Spine Special Tests Torsion Test Results Negative Vertical Spine Loading Test Results Negative A-P Shearing Test Results Negative Straight Leg Raise Test Results Hamstring stiffness R: 76?, L: 75? Standing Flexion Test Results Stiffness Slump Test Results Negative Passive Neck Flexion Test Results Negative PT-OP-M Strength Start: 05/10/20 13:35 Freq: Status: Active Protocol: Document 11/04/20 13:45 DCW (Rec: 11/04/20 14:04 DCW [id number]) Trunk Strength Trunk Manual Muscle Testing Core Stabilization Pt improved ability with dawson and holding TrA, 4 -/5 PT-OP-Q Treatments Start: 05/10/20 13:35 Freq: Status: Active Protocol: Document 12/23/20 10:30 DCW (Rec: 12/23/20 11:13 DCW [id number]) Gym Equipment Therapeutic Ball Resisted trunk rotation Exercise Details Resisted Trunk Rotation Ball Size/Color Green - 65 cm Lv 3 T-band Body Position Sitting Pelvic tilts/circles Exercise Details Pelvic tilts/circles Ball Size/Color Green - 65 cm Body Position Sitting Comments Use mirror for feedback Therapeutic Exercises Supine Exercises 1 Supine Exercise Name Piriformis stretch Side bilateral Hamstring Stretch Supine Exercise Name HS stretch Side bilateral Sitting Exercises 2 Sitting Exercise Name HS curl Side bilateral Resistance Lv 3 Equipment Used T-band 1 Sitting Exercise Name LAQ Side bilateral Resistance 10# Standing Exercises 1 Standing Exercise Name TKE Side bilateral Resistance Lv 3 Equipment Used T-band Manual Therapy Treatment Soft Tissue Mobilization 3 Body Location B Psoas Mobilization Type Strumming,Sustained Pressure Intensity/Depth Moderate 2 Body Location B Piriformis Mobilization Type Sustained Pressure Intensity/Depth Deep Body Position Sidelying 1 Body Location B lumbar paraspinals Mobilization Type Strumming,Sustained Pressure Intensity/Depth Moderate Body Position Sidelying Joint Mobilizations 2 Joint R Patellofemoral Direction Inf/sup Grade III 1 Joint Lumbar vertebrae Direction P->A PT-OP-T Assessment and Plan Start: 05/10/20 13:35 Freq: Status: Active Protocol: Document 12/23/20 10:30 DCW (Rec: 12/23/20 11:13 DCW [id number]) Physical Therapy Assessment Impairments Impairments Activity Tolerance,Functional Activities,Functional Mobility ,Pain,Posture,ROM,Strength Goals Four Impairment Pt displays limited lumbar ROM Ship Construction Teacher Goal (LTG) Lumbar flexion and extension to 50? and 25?, respectively LTG Duration 01/04/21 - Improving - 75? flexion Three Impairment Pt unable to tolerate working in his workshop in the PM due to back pain Detention Goal (LTG) 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 to spend evenings in his workshop after a day of activity with no increased back pain or stiffness LTG Duration 01/04/21 Two Impairment Pt has severe back pain and is unable to stand straight after walking .5 mi Ship Construction Teacher Goal (LTG) Pt to ambulate 1.5 miles with no increase in back pain. LTG Duration 01/04/21 One Impairment Pt does not have appropriate home exercise program Short Term Goal (STG) Pt to be independent and compliant with an appropriate HEP STG Duration 12/05/20 - Progressing Progress Towards Goals Progress Towards Goals Progressing Toward Goals Assessment Summary Assessment Pt did well with therapy today , although still reporting some increased levels of pain when getting up and down to perform his HEP. Physical Therapy Plan Frequency and Duration Frequency of Treatment 2x/Week Duration of Treatment two months Plan of Care Start Date 11/04/20 Plan of Care End Date 01/04/21 Therapeutic Interventions Therapeutic Interventions Home Exercise Program,Joint Mobilizations,Manual Therapy, Patient/Caregiver Education, Self-Care/Home Management,Soft Tissue Mobilization, Therapeutic Activities, Therapeutic Exercises Modalities Cold Pack/Ice Massage,Electric Stimulation,Hot Packs, Ultrasound Next Visit Focus/Plan Next Note Type Treatment Note Next Visit Plan Core strengthening, STM, joint mobilizations
--- NOTE | 2020-12-25 11:17 | PT.OTN ---
Current Diagnoses Other chronic pain (12/25/20) Stiffness of other specified joint, not elsewhere classified (12/25/20) Low back pain (12/25/20) Physical Therapy Treatment Note PT-OP-A Visit Information Start: 05/10/20 13:35 Freq: Status: Active Protocol: Document 12/25/20 10:30 DCW (Rec: 12/25/20 11:16 DCW [id number]) Out-Patient Physical Therapy Visit Information Visit Information Visit Type Treatment Note Visit Start Time 10:30 Visit Stop Time 11:15 Total Visit Minutes 45 Visit Number 43 Number of FISHER DIP NET Visits 0 Evaluation Information Evaluation Date 05/10/20 PT-OP-B Current Condition Start: 05/10/20 13:35 Freq: Status: Active Protocol: Document 05/10/20 11:15 DCW (Rec: 05/10/20 13:48 DCW [id number]) Current Condition History of Current Condition Onset Date 4-5 months Current Complaints Low back pain/stiffness later in the day History of Current Condition Pt is a 75 year old male well known to this clinic presenting with a 4-5 month history of worsening low back pain. Pt notes his pain worsens throughout the day, but improves with rest. Notes that after walking more than ~ 1/2 mile, it hurts so much that he is unable to stand up straight. He is typically really sore when he gets to bed at night, and if he has to get up in the middie of the night to use the bathroom, it 's really painful, but then by the time morning comes and he gets up, he feels much better. He reports that he was told a number of years ago that his x-rays showed his discs were fusing, but pt feels this pain is more due to core weakness. Prior Treatments and Tests Multiple PT visits secondary to TKA, LE weakness, shoulder pain Personal Factors Other Personal Factors That May Effect Psoriatic arthritis Therapy/Recovery PT-OP-C Subjective Start: 05/10/20 13:35 Freq: Status: Active Protocol: Document 12/25/20 10:30 DCW (Rec: 12/25/20 11:16 DCW [id number]) OP-PT Subjective Patient Comments Patient Comments Pt doing pretty well today, no significant pain in back or knee. PT-OP-F Manual Assessment Start: 05/10/20 13:35 Freq: Status: Active Protocol: Document 11/04/20 13:45 DCW (Rec: 11/04/20 14:04 DCW [id number]) Manual Assessments Soft Tissue Assessment Soft Tissue Mobility Assessment Moderate tone along left-sided lumbar paraspinals, left QL, left adductors, and bilateral posterior hip Joint Mobility Assessment Joint Mobility Assessment Mild hypomobility of lumbar spine, with movement PT-OP-K Range of Motion Start: 05/10/20 13:35 Freq: Status: Active Protocol: Document 11/04/20 13:45 DCW (Rec: 11/04/20 14:04 DCW [id number]) Lumbar Spine Range of Motion Lumbar Spine Active Degrees Testing Position Standing Flexion 75 Extension 15 Lateral Flexion Left 55 Lateral Flexion Right 52 ROM Limitations Soft Tissue Tightness,Bony Restriction Comments Lateral flexion measured in cm from finger tips to floor PT-OP-L Special Tests Start: 05/10/20 13:35 Freq: Status: Active Protocol: Document 11/04/20 13:45 DCW (Rec: 11/04/20 14:04 DCW [id number]) Special Tests Lumbar Spine Special Tests Torsion Test Results Negative Vertical Spine Loading Test Results Negative A-P Shearing Test Results Negative Straight Leg Raise Test Results Hamstring stiffness R: 76?, L: 75? Standing Flexion Test Results Stiffness Slump Test Results Negative Passive Neck Flexion Test Results Negative PT-OP-M Strength Start: 05/10/20 13:35 Freq: Status: Active Protocol: Document 11/04/20 13:45 DCW (Rec: 11/04/20 14:04 DCW [id number]) Trunk Strength Trunk Manual Muscle Testing Core Stabilization Pt improved ability with dawson and holding TrA, 4 -/5 PT-OP-Q Treatments Start: 05/10/20 13:35 Freq: Status: Active Protocol: Document 12/25/20 10:30 DCW (Rec: 12/25/20 11:16 DCW [id number]) Gym Equipment Cable Column (Body Solid) Pallof Press Resistance 20# Therapeutic Ball Resisted trunk rotation Exercise Details Resisted Trunk Rotation Ball Size/Color Green - 65 cm Lv 3 T-band Body Position Sitting Pelvic tilts/circles Exercise Details Pelvic tilts/circles Ball Size/Color Green - 65 cm Body Position Sitting Comments Use mirror for feedback Therapeutic Exercises Supine Exercises 1 Supine Exercise Name Piriformis stretch Side bilateral Hamstring Stretch Supine Exercise Name HS stretch Side bilateral Sitting Exercises 2 Sitting Exercise Name HS curl Side bilateral Resistance Lv 3 Equipment Used T-band 1 Sitting Exercise Name LAQ Side bilateral Resistance 10# Standing Exercises 1 Standing Exercise Name TKE Side bilateral Resistance Lv 3 Equipment Used T-band Manual Therapy Treatment Soft Tissue Mobilization 2 Body Location B Piriformis Mobilization Type Sustained Pressure Intensity/Depth Deep Body Position Sidelying 1 Body Location B lumbar paraspinals Mobilization Type Strumming,Sustained Pressure Intensity/Depth Moderate Body Position Sidelying Joint Mobilizations 1 Joint Lumbar vertebrae Direction P->A PT-OP-T Assessment and Plan Start: 05/10/20 13:35 Freq: Status: Active Protocol: Document 12/25/20 10:30 DCW (Rec: 12/25/20 11:16 DCW [id number]) Physical Therapy Assessment Impairments Impairments Activity Tolerance,Functional Activities,Functional Mobility ,Pain,Posture,ROM,Strength Goals Four Impairment Pt displays limited lumbar ROM [facility] Goal (LTG) Lumbar flexion and extension to 50? and 25?, respectively LTG Duration 01/04/21 - Improving - 75? flexion Three Impairment Pt unable to tolerate working in his workshop in the [place] due to back pain [place] Goal (LTG) 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 to spend evenings in his workshop after a day of activity with no increased back pain or stiffness LTG Duration 01/04/21 Two Impairment Pt has severe back pain and is unable to stand straight after walking .5 mi [place] Goal (LTG) Pt to ambulate 1.5 miles with no increase in back pain. LTG Duration 01/04/21 One Impairment Pt does not have appropriate home exercise program Short Term Goal (STG) Pt to be independent and compliant with an appropriate HEP STG Duration 12/05/20 - Progressing Progress Towards Goals Progress Towards Goals Progressing Toward Goals Assessment Summary Assessment Pt happy with increased focus on core strengthening Physical Therapy Plan Frequency and Duration Frequency of Treatment 2x/Week Duration of Treatment two months Plan of Care Start Date 11/04/20 Plan of Care End Date 01/04/21 Therapeutic Interventions Therapeutic Interventions Home Exercise Program,Joint Mobilizations,Manual Therapy, Patient/Caregiver Education, Self-Care/Home Management,Soft Tissue Mobilization, Therapeutic Activities, Therapeutic Exercises Modalities Cold Pack/Ice Massage,Electric Stimulation,Hot Packs, Ultrasound Next Visit Focus/Plan Next Note Type Treatment Note Next Visit Plan Core strengthening, STM, joint mobilizations
--- NOTE | 2020-12-30 15:12 | PT.OTN ---
Current Diagnoses Other chronic pain (12/30/20) Stiffness of other specified joint, not elsewhere classified (12/30/20) Low back pain (12/30/20) Physical Therapy Treatment Note PT-OP-A Visit Information Start: 05/10/20 13:35 Freq: Status: Active Protocol: Document 12/30/20 14:30 DCW (Rec: 12/30/20 15:12 DCW [id number]) Out-Patient Physical Therapy Visit Information Visit Information Visit Type Treatment Note Visit Start Time 14:30 Visit Stop Time 15:15 Total Visit Minutes 45 Visit Number 44 Number of FINANCIAL INSTITUTION BRANCH MANAGER Visits 0 Evaluation Information Evaluation Date 05/10/20 PT-OP-B Current Condition Start: 05/10/20 13:35 Freq: Status: Active Protocol: Document 05/10/20 11:15 DCW (Rec: 05/10/20 13:48 DCW [id number]) Current Condition History of Current Condition Onset Date 4-5 months Current Complaints Low back pain/stiffness later in the day History of Current Condition Pt is a 75 year old male well known to this clinic presenting with a 4-5 month history of worsening low back pain. Pt notes his pain worsens throughout the day, but improves with rest. Notes that after walking more than ~ 1/2 mile, it hurts so much that he is unable to stand up straight. He is typically really sore when he gets to bed at night, and if he has to get up in the middie of the night to use the bathroom, it 's really painful, but then by the time morning comes and he gets up, he feels much better. He reports that he was told a number of years ago that his x-rays showed his discs were fusing, but pt feels this pain is more due to core weakness. Prior Treatments and Tests Multiple PT visits secondary to TKA, LE weakness, shoulder pain Personal Factors Other Personal Factors That May Effect Psoriatic arthritis Therapy/Recovery PT-OP-C Subjective Start: 05/10/20 13:35 Freq: Status: Active Protocol: Document 12/30/20 14:30 DCW (Rec: 12/30/20 15:12 DCW [id number]) OP-PT Subjective Patient Comments Patient Comments Pt admits his back is not good today after spending all morning working in his shop. PT-OP-F Manual Assessment Start: 05/10/20 13:35 Freq: Status: Active Protocol: Document 11/04/20 13:45 DCW (Rec: 11/04/20 14:04 DCW [id number]) Manual Assessments Soft Tissue Assessment Soft Tissue Mobility Assessment Moderate tone along left-sided lumbar paraspinals, left QL, left adductors, and bilateral posterior hip Joint Mobility Assessment Joint Mobility Assessment Mild hypomobility of lumbar spine, with movement PT-OP-K Range of Motion Start: 05/10/20 13:35 Freq: Status: Active Protocol: Document 11/04/20 13:45 DCW (Rec: 11/04/20 14:04 DCW [id number]) Lumbar Spine Range of Motion Lumbar Spine Active Degrees Testing Position Standing Flexion 75 Extension 15 Lateral Flexion Left 55 Lateral Flexion Right 52 ROM Limitations Soft Tissue Tightness,Bony Restriction Comments Lateral flexion measured in cm from finger tips to floor PT-OP-L Special Tests Start: 05/10/20 13:35 Freq: Status: Active Protocol: Document 11/04/20 13:45 DCW (Rec: 11/04/20 14:04 DCW [id number]) Special Tests Lumbar Spine Special Tests Torsion Test Results Negative Vertical Spine Loading Test Results Negative A-P Shearing Test Results Negative Straight Leg Raise Test Results Hamstring stiffness R: 76?, L: 75? Standing Flexion Test Results Stiffness Slump Test Results Negative Passive Neck Flexion Test Results Negative PT-OP-M Strength Start: 05/10/20 13:35 Freq: Status: Active Protocol: Document 11/04/20 13:45 DCW (Rec: 11/04/20 14:04 DCW [id number]) Trunk Strength Trunk Manual Muscle Testing Core Stabilization Pt improved ability with dawson and holding TrA, 4 -/5 PT-OP-Q Treatments Start: 05/10/20 13:35 Freq: Status: Active Protocol: Document 12/30/20 14:30 DCW (Rec: 12/30/20 15:12 DCW [id number]) Gym Equipment Cable Column (Body Solid) Pallof Press Resistance 20# Therapeutic Ball Resisted trunk rotation Exercise Details Resisted Trunk Rotation Ball Size/Color Green - 65 cm Lv 3 T-band Body Position Sitting Pelvic tilts/circles Exercise Details Pelvic tilts/circles Ball Size/Color Green - 65 cm Body Position Sitting Comments Use mirror for feedback Therapeutic Exercises Supine Exercises 1 Supine Exercise Name Piriformis stretch Side bilateral Hamstring Stretch Supine Exercise Name HS stretch Side bilateral Sitting Exercises 2 Sitting Exercise Name HS curl Side bilateral Resistance Lv 3 Equipment Used T-band 1 Sitting Exercise Name LAQ Side bilateral Resistance 10# Standing Exercises 1 Standing Exercise Name TKE Side bilateral Resistance Lv 3 Equipment Used T-band Manual Therapy Treatment Soft Tissue Mobilization 2 Body Location B Piriformis Mobilization Type Sustained Pressure Intensity/Depth Deep Body Position Sidelying 1 Body Location B lumbar paraspinals Mobilization Type Strumming,Sustained Pressure Intensity/Depth Moderate Body Position Sidelying Joint Mobilizations 2 Joint R Patellofemoral Direction Inf/sup Grade III 1 Joint Lumbar vertebrae Direction P->A PT-OP-T Assessment and Plan Start: 05/10/20 13:35 Freq: Status: Active Protocol: Document 12/30/20 14:30 DCW (Rec: 12/30/20 15:12 DCW [id number]) Physical Therapy Assessment Impairments Impairments Activity Tolerance,Functional Activities,Functional Mobility ,Pain,Posture,ROM,Strength Goals Four Impairment Pt displays limited lumbar ROM Nursing Home Goal (LTG) Lumbar flexion and extension to 50? and 25?, respectively LTG Duration 01/04/21 - Improving - 75? 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 LTG Duration 01/04/21 One Impairment Pt does not have appropriate home exercise program Short Term Goal (STG) Pt to be independent and compliant with an appropriate HEP STG Duration 12/05/20 - Progressing Progress Towards Goals Progress Towards Goals Progressing Toward Goals Assessment Summary Assessment Pt tolerated his treatment well today, no concerns at the moment. Physical Therapy Plan Frequency and Duration Frequency of Treatment 2x/Week Duration of Treatment two months Plan of Care Start Date 11/04/20 Plan of Care End Date 01/04/21 Therapeutic Interventions Therapeutic Interventions Home Exercise Program,Joint Mobilizations,Manual Therapy, Patient/Caregiver Education, Self-Care/Home Management,Soft Tissue Mobilization, Therapeutic Activities, Therapeutic Exercises Modalities Cold Pack/Ice Massage,Electric Stimulation,Hot Packs, Ultrasound Next Visit Focus/Plan Next Note Type Treatment Note Next Visit Plan Core strengthening, STM, joint mobilizations
--- NOTE | 2021-01-03 11:15 | PT.OTN ---
Current Diagnoses Other chronic pain (01/03/21) Stiffness of other specified joint, not elsewhere classified (01/03/21) Low back pain (01/03/21) Physical Therapy Treatment Note PT-OP-A Visit Information Start: 05/10/20 13:35 Freq: Status: Active Protocol: Document 01/03/21 10:30 DCW (Rec: 01/03/21 11:15 DCW [id number]) Out-Patient Physical Therapy Visit Information Visit Information Visit Type Treatment Note Visit Start Time 10:30 Visit Stop Time 11:15 Total Visit Minutes 45 Visit Number 45 Number of COORDINATOR INTEGRATED MARKETING Visits 0 Evaluation Information Evaluation Date 05/10/20 PT-OP-B Current Condition Start: 05/10/20 13:35 Freq: Status: Active Protocol: Document 05/10/20 11:15 DCW (Rec: 05/10/20 13:48 DCW [id number]) Current Condition History of Current Condition Onset Date 4-5 months Current Complaints Low back pain/stiffness later in the day History of Current Condition Pt is a 75 year old male well known to this clinic presenting with a 4-5 month history of worsening low back pain. Pt notes his pain worsens throughout the day, but improves with rest. Notes that after walking more than ~ 1/2 mile, it hurts so much that he is unable to stand up straight. He is typically really sore when he gets to bed at night, and if he has to get up in the middie of the night to use the bathroom, it 's really painful, but then by the time morning comes and he gets up, he feels much better. He reports that he was told a number of years ago that his x-rays showed his discs were fusing, but pt feels this pain is more due to core weakness. Prior Treatments and Tests Multiple PT visits secondary to TKA, LE weakness, shoulder pain Personal Factors Other Personal Factors That May Effect Psoriatic arthritis Therapy/Recovery PT-OP-C Subjective Start: 05/10/20 13:35 Freq: Status: Active Protocol: Document 01/03/21 10:30 DCW (Rec: 01/03/21 11:15 DCW [id number]) OP-PT Subjective Patient Comments Patient Comments Pt reports he is doing pretty well, feeling better than he was on Wednesday. PT-OP-F Manual Assessment Start: 05/10/20 13:35 Freq: Status: Active Protocol: Document 11/04/20 13:45 DCW (Rec: 11/04/20 14:04 DCW [id number]) Manual Assessments Soft Tissue Assessment Soft Tissue Mobility Assessment Moderate tone along left-sided lumbar paraspinals, left QL, left adductors, and bilateral posterior hip Joint Mobility Assessment Joint Mobility Assessment Mild hypomobility of lumbar spine, with movement PT-OP-K Range of Motion Start: 05/10/20 13:35 Freq: Status: Active Protocol: Document 11/04/20 13:45 DCW (Rec: 11/04/20 14:04 DCW [id number]) Lumbar Spine Range of Motion Lumbar Spine Active Degrees Testing Position Standing Flexion 75 Extension 15 Lateral Flexion Left 55 Lateral Flexion Right 52 ROM Limitations Soft Tissue Tightness,Bony Restriction Comments Lateral flexion measured in cm from finger tips to floor PT-OP-L Special Tests Start: 05/10/20 13:35 Freq: Status: Active Protocol: Document 11/04/20 13:45 DCW (Rec: 11/04/20 14:04 DCW [id number]) Special Tests Lumbar Spine Special Tests Torsion Test Results Negative Vertical Spine Loading Test Results Negative A-P Shearing Test Results Negative Straight Leg Raise Test Results Hamstring stiffness R: 76?, L: 75? Standing Flexion Test Results Stiffness Slump Test Results Negative Passive Neck Flexion Test Results Negative PT-OP-M Strength Start: 05/10/20 13:35 Freq: Status: Active Protocol: Document 11/04/20 13:45 DCW (Rec: 11/04/20 14:04 DCW [id number]) Trunk Strength Trunk Manual Muscle Testing Core Stabilization Pt improved ability with dawson and holding TrA, 4 -/5 PT-OP-Q Treatments Start: 05/10/20 13:35 Freq: Status: Active Protocol: Document 01/03/21 10:30 DCW (Rec: 01/03/21 11:15 DCW [id number]) Gym Equipment Cable Column (Body Solid) Pallof Press Resistance 30# Reps/Time x30 Therapeutic Ball Resisted trunk rotation Exercise Details Resisted Trunk Rotation Ball Size/Color Green - 65 cm Lv 3 T-band Body Position Sitting Pelvic tilts/circles Exercise Details Pelvic tilts/circles Ball Size/Color Green - 65 cm Body Position Sitting Comments Use mirror for feedback Therapeutic Exercises Sitting Exercises 2 Sitting Exercise Name HS curl Side bilateral Resistance Lv 3 Equipment Used T-band 1 Sitting Exercise Name LAQ Side bilateral Resistance 10# Standing Exercises 1 Standing Exercise Name TKE Side bilateral Resistance Lv 3 Equipment Used T-band Manual Therapy Treatment Soft Tissue Mobilization 2 Body Location B Piriformis Mobilization Type Sustained Pressure Intensity/Depth Deep Body Position Sidelying 1 Body Location B lumbar paraspinals Mobilization Type Strumming,Sustained Pressure Intensity/Depth Moderate Body Position Sidelying Joint Mobilizations 1 Joint Lumbar vertebrae Direction P->A PT-OP-T Assessment and Plan Start: 05/10/20 13:35 Freq: Status: Active Protocol: Document 01/03/21 10:30 DCW (Rec: 01/03/21 11:15 DCW [id number]) Physical Therapy Assessment Impairments Impairments Activity Tolerance,Functional Activities,Functional Mobility ,Pain,Posture,ROM,Strength Goals Four Impairment Pt displays limited lumbar ROM Roller Coaster Engineer Goal (LTG) Lumbar flexion and extension to 50? and 25?, respectively LTG Duration 01/04/21 - Improving - 75? 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 LTG Duration 01/04/21 One Impairment Pt does not have appropriate home exercise program Short Term Goal (STG) Pt to be independent and compliant with an appropriate HEP STG Duration 12/05/20 - Progressing Progress Towards Goals Progress Towards Goals Progressing Toward Goals Assessment Summary Assessment Pt doing very well today, showing improvement with core strength and mobility today. Physical Therapy Plan Frequency and Duration Frequency of Treatment 2x/Week Duration of Treatment two months Plan of Care Start Date 11/04/20 Plan of Care End Date 01/04/21 Therapeutic Interventions Therapeutic Interventions Home Exercise Program,Joint Mobilizations,Manual Therapy, Patient/Caregiver Education, Self-Care/Home Management,Soft Tissue Mobilization, Therapeutic Activities, Therapeutic Exercises Modalities Cold Pack/Ice Massage,Electric Stimulation,Hot Packs, Ultrasound Next Visit Focus/Plan Next Note Type Treatment Note Next Visit Plan Core strengthening, STM, joint mobilizations
--- NOTE | 2021-01-08 11:21 | PT.OTN ---
Current Diagnoses Other chronic pain (01/08/21) Stiffness of other specified joint, not elsewhere classified (01/08/21) Low back pain (01/08/21) Physical Therapy Treatment Note PT-OP-A Visit Information Start: 05/10/20 13:35 Freq: Status: Active Protocol: Document 01/08/21 10:30 DCW (Rec: 01/08/21 11:19 DCW [id number]) Out-Patient Physical Therapy Visit Information Visit Information Visit Type Progress Note Visit Start Time 10:30 Visit Stop Time 11:15 Total Visit Minutes 45 Visit Number 46 Number of PIPE STRAIGHTENER Visits 0 Evaluation Information Evaluation Date 05/10/20 PT-OP-B Current Condition Start: 05/10/20 13:35 Freq: Status: Active Protocol: Document 05/10/20 11:15 DCW (Rec: 05/10/20 13:48 DCW [id number]) Current Condition History of Current Condition Onset Date 4-5 months Current Complaints Low back pain/stiffness later in the day History of Current Condition Pt is a 75 year old male well known to this clinic presenting with a 4-5 month history of worsening low back pain. Pt notes his pain worsens throughout the day, but improves with rest. Notes that after walking more than ~ 1/2 mile, it hurts so much that he is unable to stand up straight. He is typically really sore when he gets to bed at night, and if he has to get up in the middie of the night to use the bathroom, it 's really painful, but then by the time morning comes and he gets up, he feels much better. He reports that he was told a number of years ago that his x-rays showed his discs were fusing, but pt feels this pain is more due to core weakness. Prior Treatments and Tests Multiple PT visits secondary to TKA, LE weakness, shoulder pain Personal Factors Other Personal Factors That May Effect Psoriatic arthritis Therapy/Recovery PT-OP-C Subjective Start: 05/10/20 13:35 Freq: Status: Active Protocol: Document 01/08/21 10:30 DCW (Rec: 01/08/21 11:19 DCW [id number]) OP-PT Subjective Patient Comments Patient Comments I'm not hurting yet, everything is feeling okay. PT-OP-F Manual Assessment Start: 05/10/20 13:35 Freq: Status: Active Protocol: Document 01/08/21 10:30 DCW (Rec: 01/08/21 11:21 DCW [id number]) Manual Assessments Soft Tissue Assessment Soft Tissue Mobility Assessment Mild-moderate tone along left- sided lumbar paraspinals, left QL, and bilateral posterior hip Joint Mobility Assessment Joint Mobility Assessment Mild hypomobility of lumbar spine, with movement PT-OP-K Range of Motion Start: 05/10/20 13:35 Freq: Status: Active Protocol: Document 01/08/21 10:30 DCW (Rec: 01/08/21 11:20 DCW [id number]) Lumbar Spine Range of Motion Lumbar Spine Active Degrees Testing Position Standing Flexion 75 Extension 20 Lateral Flexion Left 55 Lateral Flexion Right 56 ROM Limitations Soft Tissue Tightness,Bony Restriction Comments Lateral flexion measured in cm from finger tips to floor PT-OP-L Special Tests Start: 05/10/20 13:35 Freq: Status: Active Protocol: Document 11/04/20 13:45 DCW (Rec: 11/04/20 14:04 DCW [id number]) Special Tests Lumbar Spine Special Tests Torsion Test Results Negative Vertical Spine Loading Test Results Negative A-P Shearing Test Results Negative Straight Leg Raise Test Results Hamstring stiffness R: 76?, L: 75? Standing Flexion Test Results Stiffness Slump Test Results Negative Passive Neck Flexion Test Results Negative PT-OP-M Strength Start: 05/10/20 13:35 Freq: Status: Active Protocol: Document 11/04/20 13:45 DCW (Rec: 11/04/20 14:04 DCW [id number]) Trunk Strength Trunk Manual Muscle Testing Core Stabilization Pt improved ability with dawson and holding TrA, 4 -/5 PT-OP-Q Treatments Start: 05/10/20 13:35 Freq: Status: Active Protocol: Document 01/08/21 10:30 DCW (Rec: 01/08/21 11:19 DCW [id number]) Gym Equipment Cable Column (Body Solid) Pallof Press Resistance 30# Reps/Time x30 Therapeutic Ball Resisted trunk rotation Exercise Details Resisted Trunk Rotation Ball Size/Color Green - 65 cm Lv 3 T-band Body Position Sitting Pelvic tilts/circles Exercise Details Pelvic tilts/circles Ball Size/Color Green - 65 cm Body Position Sitting Comments Use mirror for feedback Therapeutic Exercises Sitting Exercises 2 Sitting Exercise Name HS curl Side bilateral Resistance Lv 3 Equipment Used T-band 1 Sitting Exercise Name LAQ Side bilateral Resistance 10# Standing Exercises 1 Standing Exercise Name TKE Side bilateral Resistance Lv 3 Equipment Used T-band Manual Therapy Treatment Soft Tissue Mobilization 2 Body Location B Piriformis Mobilization Type Sustained Pressure Intensity/Depth Deep Body Position Sidelying 1 Body Location B lumbar paraspinals Mobilization Type Strumming,Sustained Pressure Intensity/Depth Moderate Body Position Sidelying Joint Mobilizations 1 Joint Lumbar vertebrae Direction P->A PT-OP-T Assessment and Plan Start: 05/10/20 13:35 Freq: Status: Active Protocol: Document 01/08/21 10:30 DCW (Rec: 01/08/21 11:19 DCW [id number]) Physical Therapy Assessment Impairments Impairments Activity Tolerance,Functional Activities,Functional Mobility ,Pain,Posture,ROM,Strength Goals Four Impairment Pt displays limited lumbar ROM Machinery Erector Goal (LTG) Lumbar flexion and extension to 50? and 25?, respectively LTG Duration 03/11/21 - Improving - 75? 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 LTG Duration 03/11/21 One Impairment Pt does not have appropriate home exercise program Short Term Goal (STG) Pt to be independent and compliant with an appropriate HEP STG Duration 02/08/21 - Progressing Progress Towards Goals Progress Towards Goals Progressing Toward Goals Assessment Summary Assessment Pt continuing to improve with his mobility and tone. 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 Pt does frequently require repeated verbal cues to perform exercises he has been participating in for weeks. Physical Therapy Plan Frequency and Duration Frequency of Treatment 2x/Week Duration of Treatment two months Plan of Care Start Date 01/08/21 Plan of Care End Date 03/11/21 Therapeutic Interventions Therapeutic Interventions Home Exercise Program,Joint Mobilizations,Manual Therapy, Patient/Caregiver Education, Self-Care/Home Management,Soft Tissue Mobilization, Therapeutic Activities, Therapeutic Exercises Modalities Cold Pack/Ice Massage,Electric Stimulation,Hot Packs, Ultrasound Next Visit Focus/Plan Next Note Type Treatment Note Next Visit Plan Core strengthening, STM, joint mobilizations
--- NOTE | 2021-01-08 11:22 | PT.OPPOC ---
Physical, Occupational [facility] Speech Therapy [facility] Current Diagnoses Other chronic pain (01/08/21) Stiffness of other specified joint, not elsewhere classified (01/08/21) Low back pain (01/08/21) Visit Care Team Role Provider Type Kavita Aranda MD Primary Care Provider Non-Staff Specialty: Internal Medicine Address: [id number] [place] [address], [address], [place], [address] Email: Franck Ugarte MD Attending Provider Non-Staff Referring Provider Specialty: Internal Medicine Address: [address] [place] [address], [address], [place], [id number] Email: Plan Of Care PT-OP-T Assessment and Plan Start: 05/10/20 13:35 Freq: Status: Active Protocol: Document 01/08/21 10:30 DCW (Rec: 01/08/21 11:19 DCW [id number]) Physical Therapy Assessment Impairments Impairments Activity Tolerance,Functional Activities,Functional Mobility ,Pain,Posture,ROM,Strength Goals Four Impairment Pt displays limited lumbar ROM Toilet And Laundry Soap Supervisor Goal (LTG) Lumbar flexion and extension to 50? and 25?, respectively LTG Duration 03/11/21 - Improving - 75? 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 LTG Duration 03/11/21 One Impairment Pt does not have appropriate home exercise program Short Term Goal (STG) Pt to be independent and compliant with an appropriate HEP STG Duration 02/08/21 - Progressing Progress Towards Goals Progress Towards Goals Progressing Toward Goals Assessment Summary Assessment Pt continuing to improve with his mobility and tone. 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 Pt does frequently require repeated verbal cues to perform exercises he has been participating in for weeks. Physical Therapy Plan Frequency and Duration Frequency of Treatment 2x/Week Duration of Treatment two months Plan of Care Start Date 01/08/21 Plan of Care End Date 03/11/21 Therapeutic Interventions Therapeutic Interventions Home Exercise Program,Joint Mobilizations,Manual Therapy, Patient/Caregiver Education, Self-Care/Home Management,Soft Tissue Mobilization, Therapeutic Activities, Therapeutic Exercises Modalities Cold Pack/Ice Massage,Electric Stimulation,Hot Packs, Ultrasound Next Visit Focus/Plan Next Note Type Treatment Note Next Visit Plan Core strengthening, STM, joint mobilizations Plan of Care Dates Plan of Care Start Date 01/08/21 Plan of Care End Date 03/11/21 Electronically Signed by: Evaristo Carvalho, PT 01/08/21 1122 Please Sign and Return: I have reviewed this Plan of Care and certify that the skilled therapy services above are required to meet the patient?s needs. Physician Signature Date Printed Name and Credentials Clinical Instructor Signature Printed Name and Credentials
--- NOTE | 2021-01-10 11:15 | PT.OTN ---
Current Diagnoses Other chronic pain (01/10/21) Stiffness of other specified joint, not elsewhere classified (01/10/21) Low back pain (01/10/21) Physical Therapy Treatment Note PT-OP-A Visit Information Start: 05/10/20 13:35 Freq: Status: Active Protocol: Document 01/10/21 10:30 DCW (Rec: 01/10/21 11:15 DCW [id number]) Out-Patient Physical Therapy Visit Information Visit Information Visit Type Treatment Note Visit Start Time 10:30 Visit Stop Time 11:15 Total Visit Minutes 45 Visit Number 47 Number of BACKEND JAVA DEVELOPER Visits 0 Evaluation Information Evaluation Date 05/10/20 PT-OP-B Current Condition Start: 05/10/20 13:35 Freq: Status: Active Protocol: Document 05/10/20 11:15 DCW (Rec: 05/10/20 13:48 DCW [id number]) Current Condition History of Current Condition Onset Date 4-5 months Current Complaints Low back pain/stiffness later in the day History of Current Condition Pt is a 75 year old male well known to this clinic presenting with a 4-5 month history of worsening low back pain. Pt notes his pain worsens throughout the day, but improves with rest. Notes that after walking more than ~ 1/2 mile, it hurts so much that he is unable to stand up straight. He is typically really sore when he gets to bed at night, and if he has to get up in the middie of the night to use the bathroom, it 's really painful, but then by the time morning comes and he gets up, he feels much better. He reports that he was told a number of years ago that his x-rays showed his discs were fusing, but pt feels this pain is more due to core weakness. Prior Treatments and Tests Multiple PT visits secondary to TKA, LE weakness, shoulder pain Personal Factors Other Personal Factors That May Effect Psoriatic arthritis Therapy/Recovery PT-OP-C Subjective Start: 05/10/20 13:35 Freq: Status: Active Protocol: Document 01/10/21 10:30 DCW (Rec: 01/10/21 11:15 DCW [id number]) OP-PT Subjective Patient Comments Patient Comments I'm actually feeling really good. PT-OP-F Manual Assessment Start: 05/10/20 13:35 Freq: Status: Active Protocol: Document 01/08/21 10:30 DCW (Rec: 01/08/21 11:21 DCW [id number]) Manual Assessments Soft Tissue Assessment Soft Tissue Mobility Assessment Mild-moderate tone along left- sided lumbar paraspinals, left QL, and bilateral posterior hip Joint Mobility Assessment Joint Mobility Assessment Mild hypomobility of lumbar spine, with movement PT-OP-K Range of Motion Start: 05/10/20 13:35 Freq: Status: Active Protocol: Document 01/08/21 10:30 DCW (Rec: 01/08/21 11:20 DCW [id number]) Lumbar Spine Range of Motion Lumbar Spine Active Degrees Testing Position Standing Flexion 75 Extension 20 Lateral Flexion Left 55 Lateral Flexion Right 56 ROM Limitations Soft Tissue Tightness,Bony Restriction Comments Lateral flexion measured in cm from finger tips to floor PT-OP-L Special Tests Start: 05/10/20 13:35 Freq: Status: Active Protocol: Document 11/04/20 13:45 DCW (Rec: 11/04/20 14:04 DCW [id number]) Special Tests Lumbar Spine Special Tests Torsion Test Results Negative Vertical Spine Loading Test Results Negative A-P Shearing Test Results Negative Straight Leg Raise Test Results Hamstring stiffness R: 76?, L: 75? Standing Flexion Test Results Stiffness Slump Test Results Negative Passive Neck Flexion Test Results Negative PT-OP-M Strength Start: 05/10/20 13:35 Freq: Status: Active Protocol: Document 11/04/20 13:45 DCW (Rec: 11/04/20 14:04 DCW [id number]) Trunk Strength Trunk Manual Muscle Testing Core Stabilization Pt improved ability with dawson and holding TrA, 4 -/5 PT-OP-Q Treatments Start: 05/10/20 13:35 Freq: Status: Active Protocol: Document 01/10/21 10:30 DCW (Rec: 01/10/21 11:15 DCW [id number]) Gym Equipment Cable Column (Body Solid) Pallof Press Resistance 30# Reps/Time x30 Therapeutic Ball Resisted trunk rotation Exercise Details Resisted Trunk Rotation Ball Size/Color Green - 65 cm Lv 3 T-band Body Position Sitting Pelvic tilts/circles Exercise Details Pelvic tilts/circles Ball Size/Color Green - 65 cm Body Position Sitting Comments Use mirror for feedback Therapeutic Exercises Supine Exercises 1 Supine Exercise Name Piriformis stretch Side bilateral Hamstring Stretch Supine Exercise Name HS stretch Side bilateral Sitting Exercises 2 Sitting Exercise Name HS curl Side bilateral Resistance Lv 3 Equipment Used T-band 1 Sitting Exercise Name LAQ Side bilateral Resistance 10# Standing Exercises 1 Standing Exercise Name TKE Side bilateral Resistance Lv 3 Equipment Used T-band Manual Therapy Treatment Soft Tissue Mobilization 2 Body Location B Piriformis Mobilization Type Sustained Pressure Intensity/Depth Deep Body Position Sidelying 1 Body Location B lumbar paraspinals Mobilization Type Strumming,Sustained Pressure Intensity/Depth Moderate Body Position Sidelying Joint Mobilizations 1 Joint Lumbar vertebrae Direction P->A PT-OP-T Assessment and Plan Start: 05/10/20 13:35 Freq: Status: Active Protocol: Document 01/10/21 10:30 DCW (Rec: 01/10/21 11:15 DCW [id number]) Physical Therapy Assessment Impairments Impairments Activity Tolerance,Functional Activities,Functional Mobility ,Pain,Posture,ROM,Strength Goals Four Impairment Pt displays limited lumbar ROM Correction Goal (LTG) Lumbar flexion and extension to 50? and 25?, respectively LTG Duration 03/11/21 - Improving - 75? 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 LTG Duration 03/11/21 One Impairment Pt does not have appropriate home exercise program Short Term Goal (STG) Pt to be independent and compliant with an appropriate HEP STG Duration 02/08/21 - Progressing Progress Towards Goals Progress Towards Goals Progressing Toward Goals Assessment Summary Assessment Pt very happy with current level of function, feels like I did when I was 63. Physical Therapy Plan Frequency and Duration Frequency of Treatment 2x/Week Duration of Treatment two months Plan of Care Start Date 01/08/21 Plan of Care End Date 03/11/21 Therapeutic Interventions Therapeutic Interventions Home Exercise Program,Joint Mobilizations,Manual Therapy, Patient/Caregiver Education, Self-Care/Home Management,Soft Tissue Mobilization, Therapeutic Activities, Therapeutic Exercises Modalities Cold Pack/Ice Massage,Electric Stimulation,Hot Packs, Ultrasound Next Visit Focus/Plan Next Note Type Treatment Note Next Visit Plan Core strengthening, STM, joint mobilizations
--- NOTE | 2021-01-15 11:12 | PT.OTN ---
Current Diagnoses Other chronic pain (01/15/21) Stiffness of other specified joint, not elsewhere classified (01/15/21) Low back pain (01/15/21) Physical Therapy Treatment Note PT-OP-A Visit Information Start: 05/10/20 13:35 Freq: Status: Active Protocol: Document 01/15/21 10:30 DCW (Rec: 01/15/21 11:11 DCW [id number]) Out-Patient Physical Therapy Visit Information Visit Information Visit Type Treatment Note Visit Start Time 10:30 Visit Stop Time 11:15 Total Visit Minutes 45 Visit Number 48 Number of POPCORN VENDOR Visits 0 Evaluation Information Evaluation Date 05/10/20 PT-OP-B Current Condition Start: 05/10/20 13:35 Freq: Status: Active Protocol: Document 05/10/20 11:15 DCW (Rec: 05/10/20 13:48 DCW [id number]) Current Condition History of Current Condition Onset Date 4-5 months Current Complaints Low back pain/stiffness later in the day History of Current Condition Pt is a 75 year old male well known to this clinic presenting with a 4-5 month history of worsening low back pain. Pt notes his pain worsens throughout the day, but improves with rest. Notes that after walking more than ~ 1/2 mile, it hurts so much that he is unable to stand up straight. He is typically really sore when he gets to bed at night, and if he has to get up in the middie of the night to use the bathroom, it 's really painful, but then by the time morning comes and he gets up, he feels much better. He reports that he was told a number of years ago that his x-rays showed his discs were fusing, but pt feels this pain is more due to core weakness. Prior Treatments and Tests Multiple PT visits secondary to TKA, LE weakness, shoulder pain Personal Factors Other Personal Factors That May Effect Psoriatic arthritis Therapy/Recovery PT-OP-C Subjective Start: 05/10/20 13:35 Freq: Status: Active Protocol: Document 01/15/21 10:30 DCW (Rec: 01/15/21 11:11 DCW [id number]) OP-PT Subjective Patient Comments Patient Comments Pt reports he is feeling alright today. PT-OP-F Manual Assessment Start: 11/06/20 13:35 Freq: Status: Active Protocol: Document 01/08/21 10:30 DCW (Rec: 01/08/21 11:21 DCW [id number]) Manual Assessments Soft Tissue Assessment Soft Tissue Mobility Assessment Mild-moderate tone along left- sided lumbar paraspinals, left QL, and bilateral posterior hip Joint Mobility Assessment Joint Mobility Assessment Mild hypomobility of lumbar spine, with movement PT-OP-K Range of Motion Start: 05/10/20 13:35 Freq: Status: Active Protocol: Document 01/08/21 10:30 DCW (Rec: 01/08/21 11:20 DCW [id number]) Lumbar Spine Range of Motion Lumbar Spine Active Degrees Testing Position Standing Flexion 75 Extension 20 Lateral Flexion Left 55 Lateral Flexion Right 56 ROM Limitations Soft Tissue Tightness,Bony Restriction Comments Lateral flexion measured in cm from finger tips to floor PT-OP-L Special Tests Start: 05/10/20 13:35 Freq: Status: Active Protocol: Document 11/04/20 13:45 DCW (Rec: 11/04/20 14:04 DCW [id number]) Special Tests Lumbar Spine Special Tests Torsion Test Results Negative Vertical Spine Loading Test Results Negative A-P Shearing Test Results Negative Straight Leg Raise Test Results Hamstring stiffness R: 76?, L: 75? Standing Flexion Test Results Stiffness Slump Test Results Negative Passive Neck Flexion Test Results Negative PT-OP-M Strength Start: 05/10/20 13:35 Freq: Status: Active Protocol: Document 11/04/20 13:45 DCW (Rec: 11/04/20 14:04 DCW [id number]) Trunk Strength Trunk Manual Muscle Testing Core Stabilization Pt improved ability with dawson and holding TrA, 4 -/5 PT-OP-Q Treatments Start: 05/10/20 13:35 Freq: Status: Active Protocol: Document 01/15/21 10:30 DCW (Rec: 01/15/21 11:11 DCW [id number]) Gym Equipment Cable Column (Body Solid) Pallof Press Resistance 30# Reps/Time x30 Therapeutic Ball Resisted trunk rotation Exercise Details Resisted Trunk Rotation Ball Size/Color Green - 65 cm Lv 3 T-band Body Position Sitting Pelvic tilts/circles Exercise Details Pelvic tilts/circles Ball Size/Color Green - 65 cm Body Position Sitting Comments Use mirror for feedback Therapeutic Exercises Supine Exercises 1 Supine Exercise Name Piriformis stretch Side bilateral Hamstring Stretch Supine Exercise Name HS stretch Side bilateral Standing Exercises 1 Standing Exercise Name TKE Side bilateral Resistance Lv 3 Equipment Used T-band Manual Therapy Treatment Soft Tissue Mobilization 2 Body Location B Piriformis Mobilization Type Sustained Pressure Intensity/Depth Deep Body Position Sidelying 1 Body Location B lumbar paraspinals Mobilization Type Strumming,Sustained Pressure Intensity/Depth Moderate Body Position Sidelying Joint Mobilizations 2 Joint R Patellofemoral Direction Inf/sup Grade III 1 Joint Lumbar vertebrae Direction P->A PT-OP-T Assessment and Plan Start: 05/10/20 13:35 Freq: Status: Active Protocol: Document 01/15/21 10:30 DCW (Rec: 01/15/21 11:11 DCW [id number]) Physical Therapy Assessment Impairments Impairments Activity Tolerance,Functional Activities,Functional Mobility ,Pain,Posture,ROM,Strength Goals Four Impairment Pt displays limited lumbar ROM Retirement Goal (LTG) Lumbar flexion and extension to 50? and 25?, respectively LTG Duration 03/11/21 - Improving - 75? flexion Three Impairment Pt unable to tolerate working in his workshop in the PM due to back pain Retirement Goal (LTG) 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 to spend evenings in his workshop after a day of activity with no increased back pain or stiffness LTG Duration 03/11/21 Two Impairment Pt has severe back pain and is unable to stand straight after walking .5 mi Chocolate Molder Goal (LTG) Pt to ambulate 1.5 miles with no increase in back pain. LTG Duration 03/11/21 One Impairment Pt does not have appropriate home exercise program Short Term Goal (STG) Pt to be independent and compliant with an appropriate HEP STG Duration 02/08/21 - Progressing Progress Towards Goals Progress Towards Goals Progressing Toward Goals Assessment Summary Assessment Pt experiencing increased right knee discomfort today, session had increased focus on joint mob of R patella. Physical Therapy Plan Frequency and Duration Frequency of Treatment 2x/Week Duration of Treatment two months Plan of Care Start Date 01/08/21 Plan of Care End Date 03/11/21 Therapeutic Interventions Therapeutic Interventions Home Exercise Program,Joint Mobilizations,Manual Therapy, Patient/Caregiver Education, Self-Care/Home Management,Soft Tissue Mobilization, Therapeutic Activities, Therapeutic Exercises Modalities Cold Pack/Ice Massage,Electric Stimulation,Hot Packs, Ultrasound Next Visit Focus/Plan Next Note Type Treatment Note Next Visit Plan Core strengthening, STM, joint mobilizations
--- NOTE | 2021-01-17 16:50 | PT.OTN ---
Current Diagnoses Other chronic pain (01/15/21) Stiffness of other specified joint, not elsewhere classified (01/15/21) Low back pain (01/15/21) Physical Therapy Treatment Note PT-OP-A Visit Information Start: 05/10/20 13:35 Freq: Status: Active Protocol: Document 01/17/21 16:08 DCW (Rec: 01/17/21 16:50 DCW [id number]) Out-Patient Physical Therapy Visit Information Visit Information Visit Type Treatment Note Visit Start Time 16:08 Visit Stop Time 17:48 Total Visit Minutes 40 Visit Number 49 Number of PACKAGE COLLECTOR Visits 0 Evaluation Information Evaluation Date 05/10/20 PT-OP-B Current Condition Start: 05/10/20 13:35 Freq: Status: Active Protocol: Document 05/10/20 11:15 DCW (Rec: 05/10/20 13:48 DCW [id number]) Current Condition History of Current Condition Onset Date 4-5 months Current Complaints Low back pain/stiffness later in the day History of Current Condition Pt is a 75 year old male well known to this clinic presenting with a 4-5 month history of worsening low back pain. Pt notes his pain worsens throughout the day, but improves with rest. Notes that after walking more than ~ 1/2 mile, it hurts so much that he is unable to stand up straight. He is typically really sore when he gets to bed at night, and if he has to get up in the middie of the night to use the bathroom, it 's really painful, but then by the time morning comes and he gets up, he feels much better. He reports that he was told a number of years ago that his x-rays showed his discs were fusing, but pt feels this pain is more due to core weakness. Prior Treatments and Tests Multiple PT visits secondary to TKA, LE weakness, shoulder pain Personal Factors Other Personal Factors That May Effect Psoriatic arthritis Therapy/Recovery PT-OP-C Subjective Start: 05/10/20 13:35 Freq: Status: Active Protocol: Document 01/17/21 16:08 DCW (Rec: 01/17/21 16:50 DCW [id number]) OP-PT Subjective Patient Comments Patient Comments Pt alright today, no real complaints. PT-OP-F Manual Assessment Start: 11/06/20 13:35 Freq: Status: Active Protocol: Document 01/08/21 10:30 DCW (Rec: 01/08/21 11:21 DCW [id number]) Manual Assessments Soft Tissue Assessment Soft Tissue Mobility Assessment Mild-moderate tone along left- sided lumbar paraspinals, left QL, and bilateral posterior hip Joint Mobility Assessment Joint Mobility Assessment Mild hypomobility of lumbar spine, with movement PT-OP-K Range of Motion Start: 05/10/20 13:35 Freq: Status: Active Protocol: Document 01/08/21 10:30 DCW (Rec: 01/08/21 11:20 DCW [id number]) Lumbar Spine Range of Motion Lumbar Spine Active Degrees Testing Position Standing Flexion 75 Extension 20 Lateral Flexion Left 55 Lateral Flexion Right 56 ROM Limitations Soft Tissue Tightness,Bony Restriction Comments Lateral flexion measured in cm from finger tips to floor PT-OP-L Special Tests Start: 05/10/20 13:35 Freq: Status: Active Protocol: Document 11/04/20 13:45 DCW (Rec: 11/04/20 14:04 DCW [id number]) Special Tests Lumbar Spine Special Tests Torsion Test Results Negative Vertical Spine Loading Test Results Negative A-P Shearing Test Results Negative Straight Leg Raise Test Results Hamstring stiffness R: 76?, L: 75? Standing Flexion Test Results Stiffness Slump Test Results Negative Passive Neck Flexion Test Results Negative PT-OP-M Strength Start: 05/10/20 13:35 Freq: Status: Active Protocol: Document 11/04/20 13:45 DCW (Rec: 11/04/20 14:04 DCW [id number]) Trunk Strength Trunk Manual Muscle Testing Core Stabilization Pt improved ability with dawson and holding TrA, 4 -/5 PT-OP-Q Treatments Start: 05/10/20 13:35 Freq: Status: Active Protocol: Document 01/17/21 16:08 DCW (Rec: 01/17/21 16:50 DCW [id number]) Gym Equipment Cable Column (Body Solid) Pallof Press Resistance 30# Reps/Time x30 Therapeutic Ball Resisted trunk rotation Exercise Details Resisted Trunk Rotation Ball Size/Color Green - 65 cm Lv 3 T-band Body Position Sitting Pelvic tilts/circles Exercise Details Pelvic tilts/circles Ball Size/Color Green - 65 cm Body Position Sitting Comments Use mirror for feedback Therapeutic Exercises Sitting Exercises 2 Sitting Exercise Name HS curl Side bilateral Resistance Lv 3 Equipment Used T-band 1 Sitting Exercise Name LAQ Side bilateral Resistance 10# Standing Exercises 1 Standing Exercise Name TKE Side bilateral Resistance Lv 3 Equipment Used T-band Manual Therapy Treatment Soft Tissue Mobilization 2 Body Location B Piriformis Mobilization Type Sustained Pressure Intensity/Depth Deep Body Position Sidelying 1 Body Location B lumbar paraspinals Mobilization Type Strumming,Sustained Pressure Intensity/Depth Moderate Body Position Sidelying Joint Mobilizations 2 Joint R Patellofemoral Direction Inf/sup Grade III 1 Joint Lumbar vertebrae Direction P->A PT-OP-T Assessment and Plan Start: 05/10/20 13:35 Freq: Status: Active Protocol: Document 01/17/21 16:08 DCW (Rec: 01/17/21 16:50 DCW [id number]) Physical Therapy Assessment Impairments Impairments Activity Tolerance,Functional Activities,Functional Mobility ,Pain,Posture,ROM,Strength Goals Four Impairment Pt displays limited lumbar ROM Price Analyst Goal (LTG) Lumbar flexion and extension to 50? and 25?, respectively LTG Duration 03/11/21 - Improving - 75? flexion Three Impairment Pt unable to tolerate working in his workshop in the PM due to back pain Halfway Goal (LTG) 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 to spend evenings in his workshop after a day of activity with no increased back pain or stiffness LTG Duration 03/11/21 Two Impairment Pt has severe back pain and is unable to stand straight after walking .5 mi Price Analyst Goal (LTG) Pt to ambulate 1.5 miles with no increase in back pain. LTG Duration 03/11/21 One Impairment Pt does not have appropriate home exercise program Short Term Goal (STG) Pt to be independent and compliant with an appropriate HEP STG Duration 02/08/21 - Progressing Progress Towards Goals Progress Towards Goals Progressing Toward Goals Assessment Summary Assessment Pt experiencing increased right knee discomfort today, session had increased focus on joint mob of R patella. Physical Therapy Plan Frequency and Duration Frequency of Treatment 2x/Week Duration of Treatment two months Plan of Care Start Date 01/08/21 Plan of Care End Date 03/11/21 Therapeutic Interventions Therapeutic Interventions Home Exercise Program,Joint Mobilizations,Manual Therapy, Patient/Caregiver Education, Self-Care/Home Management,Soft Tissue Mobilization, Therapeutic Activities, Therapeutic Exercises Modalities Cold Pack/Ice Massage,Electric Stimulation,Hot Packs, Ultrasound Next Visit Focus/Plan Next Note Type Treatment Note Next Visit Plan Core strengthening, STM, joint mobilizations
--- NOTE | 2021-01-22 11:15 | PT.OTN ---
Current Diagnoses Other chronic pain (01/22/21) Stiffness of other specified joint, not elsewhere classified (01/22/21) Low back pain (01/22/21) Physical Therapy Treatment Note PT-OP-A Visit Information Start: 05/10/20 13:35 Freq: Status: Active Protocol: Document 01/22/21 10:30 DCW (Rec: 01/22/21 11:14 DCW [id number]) Out-Patient Physical Therapy Visit Information Visit Information Visit Type Treatment Note Visit Start Time 10:30 Visit Stop Time 11:15 Total Visit Minutes 45 Visit Number 50 Number of VICE PRESIDENT OF BUSINESS DEVELOPMENT Visits 0 Evaluation Information Evaluation Date 05/10/20 PT-OP-B Current Condition Start: 05/10/20 13:35 Freq: Status: Active Protocol: Document 05/10/20 11:15 DCW (Rec: 05/10/20 13:48 DCW [id number]) Current Condition History of Current Condition Onset Date 4-5 months Current Complaints Low back pain/stiffness later in the day History of Current Condition Pt is a 75 year old male well known to this clinic presenting with a 4-5 month history of worsening low back pain. Pt notes his pain worsens throughout the day, but improves with rest. Notes that after walking more than ~ 1/2 mile, it hurts so much that he is unable to stand up straight. He is typically really sore when he gets to bed at night, and if he has to get up in the middie of the night to use the bathroom, it 's really painful, but then by the time morning comes and he gets up, he feels much better. He reports that he was told a number of years ago that his x-rays showed his discs were fusing, but pt feels this pain is more due to core weakness. Prior Treatments and Tests Multiple PT visits secondary to TKA, LE weakness, shoulder pain Personal Factors Other Personal Factors That May Effect Psoriatic arthritis Therapy/Recovery PT-OP-C Subjective Start: 05/10/20 13:35 Freq: Status: Active Protocol: Document 01/22/21 10:30 DCW (Rec: 01/22/21 11:14 DCW [id number]) OP-PT Subjective Patient Comments Patient Comments Pt reports he is sort of okay today. Notes his right knee has been bothering him a bit today. PT-OP-F Manual Assessment Start: 05/10/20 13:35 Freq: Status: Active Protocol: Document 01/08/21 10:30 DCW (Rec: 01/08/21 11:21 DCW [id number]) Manual Assessments Soft Tissue Assessment Soft Tissue Mobility Assessment Mild-moderate tone along left- sided lumbar paraspinals, left QL, and bilateral posterior hip Joint Mobility Assessment Joint Mobility Assessment Mild hypomobility of lumbar spine, with movement PT-OP-K Range of Motion Start: 05/10/20 13:35 Freq: Status: Active Protocol: Document 01/08/21 10:30 DCW (Rec: 01/08/21 11:20 DCW [id number]) Lumbar Spine Range of Motion Lumbar Spine Active Degrees Testing Position Standing Flexion 75 Extension 20 Lateral Flexion Left 55 Lateral Flexion Right 56 ROM Limitations Soft Tissue Tightness,Bony Restriction Comments Lateral flexion measured in cm from finger tips to floor PT-OP-L Special Tests Start: 05/10/20 13:35 Freq: Status: Active Protocol: Document 11/04/20 13:45 DCW (Rec: 11/04/20 14:04 DCW [id number]) Special Tests Lumbar Spine Special Tests Torsion Test Results Negative Vertical Spine Loading Test Results Negative A-P Shearing Test Results Negative Straight Leg Raise Test Results Hamstring stiffness R: 76?, L: 75? Standing Flexion Test Results Stiffness Slump Test Results Negative Passive Neck Flexion Test Results Negative PT-OP-M Strength Start: 05/10/20 13:35 Freq: Status: Active Protocol: Document 11/04/20 13:45 DCW (Rec: 11/04/20 14:04 DCW [id number]) Trunk Strength Trunk Manual Muscle Testing Core Stabilization Pt improved ability with dawson and holding TrA, 4 -/5 PT-OP-Q Treatments Start: 05/10/20 13:35 Freq: Status: Active Protocol: Document 01/22/21 10:30 DCW (Rec: 01/22/21 11:14 DCW [id number]) Gym Equipment Cable Column (Body Solid) Pallof Press Resistance 30# Reps/Time x30 Therapeutic Ball Resisted trunk rotation Exercise Details Resisted Trunk Rotation Ball Size/Color Green - 65 cm Lv 3 T-band Body Position Sitting Pelvic tilts/circles Exercise Details Pelvic tilts/circles Ball Size/Color Green - 65 cm Body Position Sitting Comments Use mirror for feedback Therapeutic Exercises Supine Exercises 1 Supine Exercise Name Piriformis stretch Side bilateral Hamstring Stretch Supine Exercise Name HS stretch Side bilateral Standing Exercises 1 Standing Exercise Name TKE Side bilateral Resistance Lv 3 Equipment Used T-band Manual Therapy Treatment Soft Tissue Mobilization 2 Body Location B Piriformis Mobilization Type Sustained Pressure Intensity/Depth Deep Body Position Sidelying 1 Body Location B lumbar paraspinals Mobilization Type Strumming,Sustained Pressure Intensity/Depth Moderate Body Position Sidelying Joint Mobilizations 2 Joint R Patellofemoral Direction Inf/sup Grade III 1 Joint Lumbar vertebrae Direction P->A PT-OP-T Assessment and Plan Start: 05/10/20 13:35 Freq: Status: Active Protocol: Document 01/22/21 10:30 DCW (Rec: 01/22/21 11:14 DCW [id number]) Physical Therapy Assessment Impairments Impairments Activity Tolerance,Functional Activities,Functional Mobility ,Pain,Posture,ROM,Strength Goals Four Impairment Pt displays limited lumbar ROM Nursing Home Goal (LTG) Lumbar flexion and extension to 50? and 25?, respectively LTG Duration 03/11/21 - Improving - 75? flexion Three Impairment Pt unable to tolerate working in his workshop in the PM due to back pain Cushion Maker Hand Goal (LTG) 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 to spend evenings in his workshop after a day of activity with no increased back pain or stiffness LTG Duration 03/11/21 Two Impairment Pt has severe back pain and is unable to stand straight after walking .5 mi Cushion Maker Hand Goal (LTG) Pt to ambulate 1.5 miles with no increase in back pain. LTG Duration 03/11/21 One Impairment Pt does not have appropriate home exercise program Short Term Goal (STG) Pt to be independent and compliant with an appropriate HEP STG Duration 02/08/21 - Progressing Progress Towards Goals Progress Towards Goals Progressing Toward Goals Assessment Summary Assessment Pt had no complaints of pain or difficulty during today's session. Physical Therapy Plan Frequency and Duration Frequency of Treatment 2x/Week Duration of Treatment two months Plan of Care Start Date 01/08/21 Plan of Care End Date 03/11/21 Therapeutic Interventions Therapeutic Interventions Home Exercise Program,Joint Mobilizations,Manual Therapy, Patient/Caregiver Education, Self-Care/Home Management,Soft Tissue Mobilization, Therapeutic Activities, Therapeutic Exercises Modalities Cold Pack/Ice Massage,Electric Stimulation,Hot Packs, Ultrasound Next Visit Focus/Plan Next Note Type Treatment Note Next Visit Plan Core strengthening, STM, joint mobilizations
--- NOTE | 2021-01-24 11:19 | PT.OTN ---
Current Diagnoses Other chronic pain (01/24/21) Stiffness of other specified joint, not elsewhere classified (01/24/21) Low back pain (01/24/21) Physical Therapy Treatment Note PT-OP-A Visit Information Start: 05/10/20 13:35 Freq: Status: Active Protocol: Document 01/24/21 10:30 DCW (Rec: 01/24/21 11:19 DCW [id number]) Out-Patient Physical Therapy Visit Information Visit Information Visit Type Treatment Note Visit Start Time 10:30 Visit Stop Time 11:15 Total Visit Minutes 45 Visit Number 51 Number of MANAGER LANGUAGE Visits 0 Evaluation Information Evaluation Date 05/10/20 PT-OP-B Current Condition Start: 05/10/20 13:35 Freq: Status: Active Protocol: Document 05/10/20 11:15 DCW (Rec: 05/10/20 13:48 DCW [id number]) Current Condition History of Current Condition Onset Date 4-5 months Current Complaints Low back pain/stiffness later in the day History of Current Condition Pt is a 75 year old male well known to this clinic presenting with a 4-5 month history of worsening low back pain. Pt notes his pain worsens throughout the day, but improves with rest. Notes that after walking more than ~ 1/2 mile, it hurts so much that he is unable to stand up straight. He is typically really sore when he gets to bed at night, and if he has to get up in the middie of the night to use the bathroom, it 's really painful, but then by the time morning comes and he gets up, he feels much better. He reports that he was told a number of years ago that his x-rays showed his discs were fusing, but pt feels this pain is more due to core weakness. Prior Treatments and Tests Multiple PT visits secondary to TKA, LE weakness, shoulder pain Personal Factors Other Personal Factors That May Effect Psoriatic arthritis Therapy/Recovery PT-OP-C Subjective Start: 05/10/20 13:35 Freq: Status: Active Protocol: Document 01/24/21 10:30 DCW (Rec: 01/24/21 11:19 DCW [id number]) OP-PT Subjective Patient Comments Patient Comments Pt not good today. PT-OP-F Manual Assessment Start: 05/10/20 13:35 Freq: Status: Active Protocol: Document 01/08/21 10:30 DCW (Rec: 01/08/21 11:21 DCW [id number]) Manual Assessments Soft Tissue Assessment Soft Tissue Mobility Assessment Mild-moderate tone along left- sided lumbar paraspinals, left QL, and bilateral posterior hip Joint Mobility Assessment Joint Mobility Assessment Mild hypomobility of lumbar spine, with movement PT-OP-K Range of Motion Start: 05/10/20 13:35 Freq: Status: Active Protocol: Document 01/08/21 10:30 DCW (Rec: 01/08/21 11:20 DCW [id number]) Lumbar Spine Range of Motion Lumbar Spine Active Degrees Testing Position Standing Flexion 75 Extension 20 Lateral Flexion Left 55 Lateral Flexion Right 56 ROM Limitations Soft Tissue Tightness,Bony Restriction Comments Lateral flexion measured in cm from finger tips to floor PT-OP-L Special Tests Start: 05/10/20 13:35 Freq: Status: Active Protocol: Document 11/04/20 13:45 DCW (Rec: 11/04/20 14:04 DCW [id number]) Special Tests Lumbar Spine Special Tests Torsion Test Results Negative Vertical Spine Loading Test Results Negative A-P Shearing Test Results Negative Straight Leg Raise Test Results Hamstring stiffness R: 76?, L: 75? Standing Flexion Test Results Stiffness Slump Test Results Negative Passive Neck Flexion Test Results Negative PT-OP-M Strength Start: 05/10/20 13:35 Freq: Status: Active Protocol: Document 11/04/20 13:45 DCW (Rec: 11/04/20 14:04 DCW [id number]) Trunk Strength Trunk Manual Muscle Testing Core Stabilization Pt improved ability with dawson and holding TrA, 4 -/5 PT-OP-Q Treatments Start: 05/10/20 13:35 Freq: Status: Active Protocol: Document 01/24/21 10:30 DCW (Rec: 01/24/21 11:19 DCW [id number]) Gym Equipment Cable Column (Body Solid) Pallof Press Resistance 30# Reps/Time x30 Therapeutic Ball Resisted trunk rotation Exercise Details Resisted Trunk Rotation Ball Size/Color Green - 65 cm Lv 3 T-band Body Position Sitting Pelvic tilts/circles Exercise Details Pelvic tilts/circles Ball Size/Color Green - 65 cm Body Position Sitting Comments Use mirror for feedback Therapeutic Exercises Supine Exercises 1 Supine Exercise Name Piriformis stretch Side bilateral Hamstring Stretch Supine Exercise Name HS stretch Side bilateral Standing Exercises 1 Standing Exercise Name TKE Side bilateral Resistance Lv 3 Equipment Used T-band Manual Therapy Treatment Soft Tissue Mobilization 2 Body Location B Piriformis Mobilization Type Sustained Pressure Intensity/Depth Deep Body Position Sidelying 1 Body Location B lumbar paraspinals Mobilization Type Strumming,Sustained Pressure Intensity/Depth Moderate Body Position Sidelying Joint Mobilizations 1 Joint Lumbar vertebrae Direction P->A PT-OP-T Assessment and Plan Start: 05/10/20 13:35 Freq: Status: Active Protocol: Document 01/24/21 10:30 DCW (Rec: 01/24/21 11:19 DCW [id number]) Physical Therapy Assessment Impairments Impairments Activity Tolerance,Functional Activities,Functional Mobility ,Pain,Posture,ROM,Strength Goals Four Impairment Pt displays limited lumbar ROM Indian Nanny Goal (LTG) Lumbar flexion and extension to 50? and 25?, respectively LTG Duration 03/11/21 - Improving - 75? flexion Three Impairment Pt unable to tolerate working in his workshop in the PM due to back pain Indian Nanny Goal (LTG) 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 to spend evenings in his workshop after a day of activity with no increased back pain or stiffness LTG Duration 03/11/21 Two Impairment Pt has severe back pain and is unable to stand straight after walking .5 mi Indian Nanny Goal (LTG) Pt to ambulate 1.5 miles with no increase in back pain. LTG Duration 03/11/21 One Impairment Pt does not have appropriate home exercise program Short Term Goal (STG) Pt to be independent and compliant with an appropriate HEP STG Duration 02/08/21 - Progressing Progress Towards Goals Progress Towards Goals Progressing Toward Goals Assessment Summary Assessment Discussed with pt his right knee pain, pointed out he typically gets increased pain at the end of his infusion cycle when he is due for his next injection for management of his arthritis, pt admitted he was scheduled next week. Pt also noted he may return to Ortho to see if there is anything else that can be done . Physical Therapy Plan Frequency and Duration Frequency of Treatment 2x/Week Duration of Treatment two months Plan of Care Start Date 01/08/21 Plan of Care End Date 03/11/21 Therapeutic Interventions Therapeutic Interventions Home Exercise Program,Joint Mobilizations,Manual Therapy, Patient/Caregiver Education, Self-Care/Home Management,Soft Tissue Mobilization, Therapeutic Activities, Therapeutic Exercises Modalities Cold Pack/Ice Massage,Electric Stimulation,Hot Packs, Ultrasound Next Visit Focus/Plan Next Note Type Treatment Note Next Visit Plan Core strengthening, STM, joint mobilizations
--- NOTE | 2021-01-27 11:14 | PT.OTN ---
Current Diagnoses Other chronic pain (01/27/21) Stiffness of other specified joint, not elsewhere classified (01/27/21) Low back pain (01/27/21) Physical Therapy Treatment Note PT-OP-A Visit Information Start: 05/10/20 13:35 Freq: Status: Active Protocol: Document 01/27/21 10:30 DCW (Rec: 01/27/21 11:14 DCW [id number]) Out-Patient Physical Therapy Visit Information Visit Information Visit Type Treatment Note Visit Start Time 10:30 Visit Stop Time 11:15 Total Visit Minutes 45 Visit Number 52 Number of SOFTWARE LICENSING ANALYST Visits 0 Evaluation Information Evaluation Date 05/10/20 PT-OP-B Current Condition Start: 05/10/20 13:35 Freq: Status: Active Protocol: Document 05/10/20 11:15 DCW (Rec: 05/10/20 13:48 DCW [id number]) Current Condition History of Current Condition Onset Date 4-5 months Current Complaints Low back pain/stiffness later in the day History of Current Condition Pt is a 75 year old male well known to this clinic presenting with a 4-5 month history of worsening low back pain. Pt notes his pain worsens throughout the day, but improves with rest. Notes that after walking more than ~ 1/2 mile, it hurts so much that he is unable to stand up straight. He is typically really sore when he gets to bed at night, and if he has to get up in the middie of the night to use the bathroom, it 's really painful, but then by the time morning comes and he gets up, he feels much better. He reports that he was told a number of years ago that his x-rays showed his discs were fusing, but pt feels this pain is more due to core weakness. Prior Treatments and Tests Multiple PT visits secondary to TKA, LE weakness, shoulder pain Personal Factors Other Personal Factors That May Effect Psoriatic arthritis Therapy/Recovery PT-OP-C Subjective Start: 05/10/20 13:35 Freq: Status: Active Protocol: Document 01/27/21 10:30 DCW (Rec: 01/27/21 11:14 DCW [id number]) OP-PT Subjective Patient Comments Patient Comments Pt admits his knee is not troublesome today. PT-OP-F Manual Assessment Start: 05/10/20 13:35 Freq: Status: Active Protocol: Document 01/08/21 10:30 DCW (Rec: 01/08/21 11:21 DCW [id number]) Manual Assessments Soft Tissue Assessment Soft Tissue Mobility Assessment Mild-moderate tone along left- sided lumbar paraspinals, left QL, and bilateral posterior hip Joint Mobility Assessment Joint Mobility Assessment Mild hypomobility of lumbar spine, with movement PT-OP-K Range of Motion Start: 05/10/20 13:35 Freq: Status: Active Protocol: Document 01/08/21 10:30 DCW (Rec: 01/08/21 11:20 DCW [id number]) Lumbar Spine Range of Motion Lumbar Spine Active Degrees Testing Position Standing Flexion 75 Extension 20 Lateral Flexion Left 55 Lateral Flexion Right 56 ROM Limitations Soft Tissue Tightness,Bony Restriction Comments Lateral flexion measured in cm from finger tips to floor PT-OP-L Special Tests Start: 05/10/20 13:35 Freq: Status: Active Protocol: Document 11/04/20 13:45 DCW (Rec: 11/04/20 14:04 DCW [id number]) Special Tests Lumbar Spine Special Tests Torsion Test Results Negative Vertical Spine Loading Test Results Negative A-P Shearing Test Results Negative Straight Leg Raise Test Results Hamstring stiffness R: 76?, L: 75? Standing Flexion Test Results Stiffness Slump Test Results Negative Passive Neck Flexion Test Results Negative PT-OP-M Strength Start: 05/10/20 13:35 Freq: Status: Active Protocol: Document 11/04/20 13:45 DCW (Rec: 11/04/20 14:04 DCW [id number]) Trunk Strength Trunk Manual Muscle Testing Core Stabilization Pt improved ability with dawson and holding TrA, 4 -/5 PT-OP-Q Treatments Start: 05/10/20 13:35 Freq: Status: Active Protocol: Document 01/27/21 10:30 DCW (Rec: 01/27/21 11:14 DCW [id number]) Gym Equipment Cable Column (Body Solid) Pallof Press Resistance 30# Reps/Time x30 Therapeutic Ball Resisted trunk rotation Exercise Details Resisted Trunk Rotation Ball Size/Color Green - 65 cm Lv 3 T-band Body Position Sitting Pelvic tilts/circles Exercise Details Pelvic tilts/circles Ball Size/Color Green - 65 cm Body Position Sitting Comments Use mirror for feedback Therapeutic Exercises Standing Exercises 1 Standing Exercise Name TKE Side bilateral Resistance Lv 3 Equipment Used T-band Manual Therapy Treatment Soft Tissue Mobilization 2 Body Location B Piriformis Mobilization Type Sustained Pressure Intensity/Depth Deep Body Position Sidelying 1 Body Location B lumbar paraspinals Mobilization Type Strumming,Sustained Pressure Intensity/Depth Moderate Body Position Sidelying Joint Mobilizations 1 Joint Lumbar vertebrae Direction P->A PT-OP-T Assessment and Plan Start: 05/10/20 13:35 Freq: Status: Active Protocol: Document 01/27/21 10:30 DCW (Rec: 01/27/21 11:14 DCW [id number]) Physical Therapy Assessment Impairments Impairments Activity Tolerance,Functional Activities,Functional Mobility ,Pain,Posture,ROM,Strength Goals Four Impairment Pt displays limited lumbar ROM Senior Care Goal (LTG) Lumbar flexion and extension to 50? and 25?, respectively LTG Duration 03/11/21 - Improving - 75? flexion Three Impairment Pt unable to tolerate working in his workshop in the PM due to back pain Senior Care Goal (LTG) 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 to spend evenings in his workshop after a day of activity with no increased back pain or stiffness LTG Duration 03/11/21 Two Impairment Pt has severe back pain and is unable to stand straight after walking .5 mi Senior Care Goal (LTG) Pt to ambulate 1.5 miles with no increase in back pain. LTG Duration 03/11/21 One Impairment Pt does not have appropriate home exercise program Short Term Goal (STG) Pt to be independent and compliant with an appropriate HEP STG Duration 02/08/21 - Progressing Progress Towards Goals Progress Towards Goals Progressing Toward Goals Assessment Summary Assessment Pt clearly moving better today , much less pain overall, still hopeful that he will begin to do even better following his infusion later this week. Physical Therapy Plan Frequency and Duration Frequency of Treatment 2x/Week Duration of Treatment two months Plan of Care Start Date 01/08/21 Plan of Care End Date 03/11/21 Therapeutic Interventions Therapeutic Interventions Home Exercise Program,Joint Mobilizations,Manual Therapy, Patient/Caregiver Education, Self-Care/Home Management,Soft Tissue Mobilization, Therapeutic Activities, Therapeutic Exercises Modalities Cold Pack/Ice Massage,Electric Stimulation,Hot Packs, Ultrasound Next Visit Focus/Plan Next Note Type Treatment Note Next Visit Plan Core strengthening, STM, joint mobilizations
--- NOTE | 2021-01-30 11:15 | PT.OTN ---
Current Diagnoses Other chronic pain (01/30/21) Stiffness of other specified joint, not elsewhere classified (01/30/21) Low back pain (01/30/21) Physical Therapy Treatment Note PT-OP-A Visit Information Start: 05/10/20 13:35 Freq: Status: Active Protocol: Document 01/30/21 10:30 DCW (Rec: 01/30/21 11:15 DCW [id number]) Out-Patient Physical Therapy Visit Information Visit Information Visit Type Treatment Note Visit Start Time 10:30 Visit Stop Time 11:15 Total Visit Minutes 45 Visit Number 53 Number of WIDE PIECE GOODS INSPECTOR Visits 0 Evaluation Information Evaluation Date 05/10/20 PT-OP-B Current Condition Start: 05/10/20 13:35 Freq: Status: Active Protocol: Document 05/10/20 11:15 DCW (Rec: 05/10/20 13:48 DCW [id number]) Current Condition History of Current Condition Onset Date 4-5 months Current Complaints Low back pain/stiffness later in the day History of Current Condition Pt is a 75 year old male well known to this clinic presenting with a 4-5 month history of worsening low back pain. Pt notes his pain worsens throughout the day, but improves with rest. Notes that after walking more than ~ 1/2 mile, it hurts so much that he is unable to stand up straight. He is typically really sore when he gets to bed at night, and if he has to get up in the middie of the night to use the bathroom, it 's really painful, but then by the time morning comes and he gets up, he feels much better. He reports that he was told a number of years ago that his x-rays showed his discs were fusing, but pt feels this pain is more due to core weakness. Prior Treatments and Tests Multiple PT visits secondary to TKA, LE weakness, shoulder pain Personal Factors Other Personal Factors That May Effect Psoriatic arthritis Therapy/Recovery PT-OP-C Subjective Start: 05/10/20 13:35 Freq: Status: Active Protocol: Document 01/30/21 10:30 DCW (Rec: 01/30/21 11:15 DCW [id number]) OP-PT Subjective Patient Comments Patient Comments Pt reports he had his infusion yesterday, and now just feels exhausted. PT-OP-F Manual Assessment Start: 05/10/20 13:35 Freq: Status: Active Protocol: Document 01/08/21 10:30 DCW (Rec: 01/08/21 11:21 DCW [id number]) Manual Assessments Soft Tissue Assessment Soft Tissue Mobility Assessment Mild-moderate tone along left- sided lumbar paraspinals, left QL, and bilateral posterior hip Joint Mobility Assessment Joint Mobility Assessment Mild hypomobility of lumbar spine, with movement PT-OP-K Range of Motion Start: 05/10/20 13:35 Freq: Status: Active Protocol: Document 01/08/21 10:30 DCW (Rec: 01/08/21 11:20 DCW [id number]) Lumbar Spine Range of Motion Lumbar Spine Active Degrees Testing Position Standing Flexion 75 Extension 20 Lateral Flexion Left 55 Lateral Flexion Right 56 ROM Limitations Soft Tissue Tightness,Bony Restriction Comments Lateral flexion measured in cm from finger tips to floor PT-OP-L Special Tests Start: 05/10/20 13:35 Freq: Status: Active Protocol: Document 11/04/20 13:45 DCW (Rec: 11/04/20 14:04 DCW [id number]) Special Tests Lumbar Spine Special Tests Torsion Test Results Negative Vertical Spine Loading Test Results Negative A-P Shearing Test Results Negative Straight Leg Raise Test Results Hamstring stiffness R: 76?, L: 75? Standing Flexion Test Results Stiffness Slump Test Results Negative Passive Neck Flexion Test Results Negative PT-OP-M Strength Start: 05/10/20 13:35 Freq: Status: Active Protocol: Document 11/04/20 13:45 DCW (Rec: 11/04/20 14:04 DCW [id number]) Trunk Strength Trunk Manual Muscle Testing Core Stabilization Pt improved ability with dawson and holding TrA, 4 -/5 PT-OP-Q Treatments Start: 05/10/20 13:35 Freq: Status: Active Protocol: Document 01/30/21 10:30 DCW (Rec: 01/30/21 11:15 DCW [id number]) Gym Equipment Cable Column (Body Solid) Pallof Press Resistance 30# Reps/Time x30 Therapeutic Ball Resisted trunk rotation Exercise Details Resisted Trunk Rotation Ball Size/Color Green - 65 cm Lv 3 T-band Body Position Sitting Pelvic tilts/circles Exercise Details Pelvic tilts/circles Ball Size/Color Green - 65 cm Body Position Sitting Comments Use mirror for feedback Therapeutic Exercises Supine Exercises 1 Supine Exercise Name Piriformis stretch Side bilateral Hamstring Stretch Supine Exercise Name HS stretch Side bilateral Sitting Exercises 2 Sitting Exercise Name HS curl Side bilateral Resistance Lv 3 Equipment Used T-band Standing Exercises 1 Standing Exercise Name TKE Side bilateral Resistance Lv 3 Equipment Used T-band Manual Therapy Treatment Soft Tissue Mobilization 2 Body Location B Piriformis Mobilization Type Sustained Pressure Intensity/Depth Deep Body Position Sidelying 1 Body Location B lumbar paraspinals Mobilization Type Strumming,Sustained Pressure Intensity/Depth Moderate Body Position Sidelying Joint Mobilizations 1 Joint Lumbar vertebrae Direction P->A PT-OP-T Assessment and Plan Start: 05/10/20 13:35 Freq: Status: Active Protocol: Document 01/30/21 10:30 DCW (Rec: 01/30/21 11:15 DCW [id number]) Physical Therapy Assessment Impairments Impairments Activity Tolerance,Functional Activities,Functional Mobility ,Pain,Posture,ROM,Strength Goals Four Impairment Pt displays limited lumbar ROM Biodiesel Processing Technician Goal (LTG) Lumbar flexion and extension to 50? and 25?, respectively LTG Duration 03/11/21 - Improving - 75? flexion Three Impairment Pt unable to tolerate working in his workshop in the PM due to back pain Detention Goal (LTG) 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 to spend evenings in his workshop after a day of activity with no increased back pain or stiffness LTG Duration 03/11/21 Two Impairment Pt has severe back pain and is unable to stand straight after walking .5 mi Detention Goal (LTG) Pt to ambulate 1.5 miles with no increase in back pain. LTG Duration 03/11/21 One Impairment Pt does not have appropriate home exercise program Short Term Goal (STG) Pt to be independent and compliant with an appropriate HEP STG Duration 02/08/21 - Progressing Progress Towards Goals Progress Towards Goals Progressing Toward Goals Assessment Summary Assessment Pt fatigued today, but noted feeling better at the end of his appointment. Physical Therapy Plan Frequency and Duration Frequency of Treatment 2x/Week Duration of Treatment two months Plan of Care Start Date 01/08/21 Plan of Care End Date 03/11/21 Therapeutic Interventions Therapeutic Interventions Home Exercise Program,Joint Mobilizations,Manual Therapy, Patient/Caregiver Education, Self-Care/Home Management,Soft Tissue Mobilization, Therapeutic Activities, Therapeutic Exercises Modalities Cold Pack/Ice Massage,Electric Stimulation,Hot Packs, Ultrasound Next Visit Focus/Plan Next Note Type Treatment Note Next Visit Plan Core strengthening, STM, joint mobilizations
--- NOTE | 2021-02-05 10:46 | PT-OP ANOTE ---
Pt arrived for his visit today, however then reported that he was seen in the ED Wednesday and had fractured a rib, which made all movements fairly painful. Patient and therapist agreed to hold PT at this time.
--- NOTE | 2021-04-17 12:02 | PT.OPDS ---
Current Diagnoses Other chronic pain (01/30/21) Stiffness of other specified joint, not elsewhere classified (01/30/21) Low back pain (01/30/21) Visit Care Team Role Provider Type Kavita Aranda MD Primary Care Provider Non-Staff Specialty: Internal Medicine Address: [address] [place] [address], [address], [place], [address] Email: Franck Ugarte MD Attending Provider Non-Staff Referring Provider Specialty: Internal Medicine Address: [address] [place] [address], [address], [place], [address] Email: Visit Number Visit Number 53 Discharge Summary PT-OP-B Current Condition Start: 05/10/20 13:35 Freq: Status: Active Protocol: Document 05/10/20 11:15 DCW (Rec: 05/10/20 13:48 DCW [id number]) Current Condition History of Current Condition Onset Date 4-5 months Current Complaints Low back pain/stiffness later in the day History of Current Condition Pt is a 75 year old male well known to this clinic presenting with a 4-5 month history of worsening low back pain. Pt notes his pain worsens throughout the day, but improves with rest. Notes that after walking more than ~ 1/2 mile, it hurts so much that he is unable to stand up straight. He is typically really sore when he gets to bed at night, and if he has to get up in the middie of the night to use the bathroom, it 's really painful, but then by the time morning comes and he gets up, he feels much better. He reports that he was told a number of years ago that his x-rays showed his discs were fusing, but pt feels this pain is more due to core weakness. Prior Treatments and Tests Multiple PT visits secondary to TKA, LE weakness, shoulder pain Personal Factors Other Personal Factors That May Effect Psoriatic arthritis Therapy/Recovery PT-OP-C Subjective Start: 05/10/20 13:35 Freq: Status: Active Protocol: Document 01/30/21 10:30 DCW (Rec: 01/30/21 11:15 DCW [id number]) OP-PT Subjective Patient Comments Patient Comments Pt reports he had his infusion yesterday, and now just feels exhausted. PT-OP-F Manual Assessment Start: 05/10/20 13:35 Freq: Status: Active Protocol: Document 01/08/21 10:30 DCW (Rec: 01/08/21 11:21 DCW [id number]) Manual Assessments Soft Tissue Assessment Soft Tissue Mobility Assessment Mild-moderate tone along left- sided lumbar paraspinals, left QL, and bilateral posterior hip Joint Mobility Assessment Joint Mobility Assessment Mild hypomobility of lumbar spine, with movement PT-OP-K Range of Motion Start: 05/10/20 13:35 Freq: Status: Active Protocol: Document 01/08/21 10:30 DCW (Rec: 01/08/21 11:20 DCW [id number]) Lumbar Spine Range of Motion Lumbar Spine Active Degrees Testing Position Standing Flexion 75 Extension 20 Lateral Flexion Left 55 Lateral Flexion Right 56 ROM Limitations Soft Tissue Tightness,Bony Restriction Comments Lateral flexion measured in cm from finger tips to floor PT-OP-L Special Tests Start: 05/10/20 13:35 Freq: Status: Active Protocol: Document 11/04/20 13:45 DCW (Rec: 11/04/20 14:04 DCW [id number]) Special Tests Lumbar Spine Special Tests Torsion Test Results Negative Vertical Spine Loading Test Results Negative A-P Shearing Test Results Negative Straight Leg Raise Test Results Hamstring stiffness R: 76?, L: 75? Standing Flexion Test Results Stiffness Slump Test Results Negative Passive Neck Flexion Test Results Negative PT-OP-M Strength Start: 05/10/20 13:35 Freq: Status: Active Protocol: Document 11/04/20 13:45 DCW (Rec: 11/04/20 14:04 DCW [id number]) Trunk Strength Trunk Manual Muscle Testing Core Stabilization Pt improved ability with dawson and holding TrA, 4 -/5 PT-OP-T Assessment and Plan Start: 05/10/20 13:35 Freq: Status: Active Protocol: Document 04/17/21 12:01 DCW (Rec: 04/17/21 12:02 DCW [id number]) Physical Therapy Assessment Assessment Summary Assessment Pt took a break from PT following a rib fracture, has not been seen in two months, will be discharged from skilled therapy at this time. Pt will require a new referral in order to return Physical Therapy Plan Discharge Physical Therapy Discharge Reasons No Longer Attending PT Next Visit Focus/Plan Next Note Type Discharge Summary
== END 2021-04-23 09:05 ==
LOC: PHYS 10:30
PROVIDERS: PCP Internal Medicine; Referring Provider Internal Medicine; Visit Provider Internal Medicine
DX: M54.5 Low back pain (principal); G89.29 Other chronic pain; M25.69 Stiffness of other specified joint, not elsewhere classified
CPT/HCPCS: 97110; 97140; 97161

== ENCOUNTER 2021-02-03 11:36 | Emergency (ER) | payer MEDICARE, OTHER, SELFPAY ==
[2018-09-06 16:27] VITALS: BMI 31.1
[2021-02-03 11:47] VITALS: BP 137/63; PULSE 58; RESP 12; TEMP 36.2; O2SAT 98
--- NOTE | 2021-02-03 11:53 | DI.RAD.S_ITS ---
PROCEDURE: XR RIBS LT MIN 3V W CXR1V INDICATIONS: left rib pain TECHNIQUE: 2 views of the left ribs were acquired, along with a single view chest. COMPARISON: None. FINDINGS: Surgical changes and devices: None. Bones and chest wall: No dislocations. No suspicious bony lesions. Overlying soft tissues appear unremarkable. There is a anterior fracture of the 7th rib, without pneumothorax. Lungs and pleura: No pleural effusions or pneumothorax. Lungs appear clear. Mediastinum: Mediastinal contours appear normal. Heart size is normal. IMPRESSION: No right-sided trauma, and there is a left-sided anterior 7th rib fracture without associated pneumothorax. Dictated by: Dony Pritchett M.D. on 02/03/2021 at 12:47 Approved by: Dony Pritchett M.D. on 02/03/2021 at 12:49
[2021-02-03 14:30] LABS: Alanine Aminotransferase 22 IU/L (<50); Albumin Globulin Ratio 1.3 (1.0-2.8); Alkaline Phosphatase 91 U/L (38-126); Aspartate Aminotransferase 33 IU/L (17-59); BUN Creatinine Ratio 20.2 (6-22); Bilirubin Total 0.9 mg/dL (0.2-1.3); Blood Urea Nitrogen 18 mg/dL (9-20); Calcium 9.3 mg/dL (8.4-10.2); Carbon Dioxide 27 mmol/L (22-32); Chloride 106 mmol/L (98-107); Estimated Glomerular Filt Rate > 60.0 mL/min (>60); Globulin 3.1 g/dL (1.7-4.1); Glucose 99 mg/dL (80-110); HEMOLYSIS < 15 (0-50); Potassium 4.4 mmol/L (3.4-5.1); Sodium 138 mmol/L (137-145); Total Protein 7.1 g/dL (6.3-8.2)
[2021-02-03 14:45] LABS: Add Manual Diff / Slide Review NO; Basophils Absolute Auto 100 /uL (0-100); Basophils Percent Auto 1.4 % (0-2); Eosinophils Absolute Auto 300 /uL (0-450); Eosinophils Percent Auto 4.3 % (2-4); Hematocrit 38.6 % (41-53); Hemoglobin 12.4 g/dL (13.5-17.5); Lymphocytes Absolute Auto 1300 /uL (1100-4500); Lymphocytes Percent Auto 19.7 % (25-40); Mean Corpuscular HGB Conc 32.1 % (30-36); Mean Corpuscular Hemoglobin 27.6 PG (26-34); Mean Corpuscular Volume 86.1 fL (80-100); Monocytes Absolute Auto 600 /uL (0-900); Monocytes Percent Auto 9.1 % (3-14); Neutrophils Absolute Auto 4200 /uL (1500-7000); Neutrophils Percent Auto 65.5 % (50-75); Platelet Count 209 X10^3/uL (150-400); Red Blood Cell Count 4.49 X10^6/uL (4.5-5.9); Red Cell Distribution Width 21.4 % (11.6-14.8); White Blood Cell Count 6.4 X10^3/uL (4.5-11.0)
[2021-02-03 15:23] LABS: Macrocytosis 1+
--- NOTE | 2021-02-03 15:42 | RT ---
PT INSTRUCTED ON I.S. USE PER VERBAL DOCTOR'S ORDER.
--- NOTE | 2021-02-03 16:32 | ED.DIZZY ---
HPI - Dizziness General Chief Complaint: Dizziness Stated Complaint: Thinks damaged rib- LT side. dizzy/blood thinners Time Seen by Provider: 02/03/21 16:32 Source: patient Mode of arrival: Ambulatory Limitations: no limitations History of Present Illness HPI Narrative: This is a 76-year-old male who comes emergency department with complaint of possible damage drip. Patient states he has had some pain on his left side. He states he felt a little bit dizzy but denies any lightheadedness or feeling like he is going to pass out. He denies any room spinning. He just states he feels like he needs to lie down. But he denies any fatigue or feeling like he is tired. He states it feels similar to when he had low blood count after having an E biopsy that was internal and developing large amount of bleeding. Patient does have some left-sided chest pain over the area of his rib. He states for the last several days he has been working laying on the ground and leaning over and down into a large hole that is removed with concrete in order to repair a pump. Patient does recall any other significant injuries but any sort of pressure on that area or movement, coughing makes it worse. He denies any shortness of breath. It is painful to take a large breath. He denies any nausea or vomiting. No other GI or urinary symptoms. Patient does take medication for hypertension and dyslipidemia as well Xarelto. Related Data Home Medications Medication Instructions Recorded Confirmed atorvastatin 10 mg tablet 10 mg PO DAILY 02/05/18 09/02/18 bupropion HCl 150 mg 24 hr tablet, 150 mg PO DAILY 02/05/18 09/02/18 extended release diethylpropion 25 mg tablet 25 mg PO TID 02/05/18 09/02/18 gabapentin 300 mg capsule 600 mg PO BEDTIME 02/05/18 09/02/18 methotrexate sodium 2.5 mg tablet 7.5 mg PO SEEINSTR 02/05/18 09/02/18 metoprolol succinate 50 mg 25 mg PO BID 02/05/18 09/02/18 tablet,extended release 24 hr fluoxetine 20 mg capsule 20 mg PO DAILY 09/02/18 09/02/18 vardenafil 20 mg tablet 20 mg PO DAILY PRN 09/02/18 09/02/18 Previous Rx's Medication Instructions Recorded rivaroxaban 20 mg tablet (Xarelto) 20 mg PO DAILY #30 tab 02/07/18 acetaminophen 325 mg tablet 975 mg PO TID #0 tab 09/07/18 docusate sodium 100 mg capsule 100 mg PO BID #0 cap 09/07/18 hydroxyzine pamoate 25 mg capsule 25 mg PO Q4HR PRN #0 cap 09/07/18 oxycodone 5 mg tablet 5 mg PO Q4-6H PRN #0 tab 09/07/18 hydrocodone 5 mg-acetaminophen 325 1 tab PO Q6H PRN #20 tab 02/03/21 mg tablet Allergies Allergy/AdvReac Type Severity Reaction Status Date / Time No Known Drug Allergies Allergy Verified 09/06/18 12:49 Review of Systems Review of Systems ROS Unobtainable: All systems reviewed & are unremarkable except as noted in HPI and below Patient History Medical History Alcoholism Anxiety Atrophic gastritis Chronic low back pain Cyst in hand (~2019) Depression Diverticulosis Dizziness Erectile dysfunction History of colon polyps HTN (hypertension) Hydronephrosis Hyperlipidemia Insomnia Ischemia Nephrolithiasis YAIMA on CPAP Osteoarthritis Paroxysmal atrial fibrillation Paroxysmal atrial flutter Prediabetes Psoriasis Psoriatic arthritis Psoriatic arthropathy Retroperitoneal mass RLS (restless legs syndrome) Sinus congestion Syncope Testosterone deficiency Vitamin D deficiency Surgical History History of total left knee replacement (TKR) Hx of lithotripsy Family History Father No problems noted. Mother No problems noted. Brother No problems noted. Sister No problems noted. Social History household members: spouse Smoking Status: Never smoker alcohol intake: current Smoking Status: Never smoker alcohol intake frequency: 0-2 drinks per day Substance Use Type: amphetamines Exam Narrative Exam Narrative: GENERAL: Alert and oriented x three, male in mild distress. HEENT: Head normocephalic, atraumatic, EOMI, pupils reactive, face symmetric, moist mucous membranes NECK: Supple, full range of motion CARDIOVASCULAR: Regular rate and rhythm without murmurs, rubs or gallops. RESPIRATORY: Breath sounds equal bilaterally, no wheezes rales or rhonchi. Patient has a left-sided reproducible chest pain on the lateral lower ribs. ABDOMEN: Soft, nontender. Normoactive bowel sounds all 4 quadrants. No guarding or rebound, rigidity, no mass : No CVA tenderness EXTREMITIES: Normal range of motion, no clubbing or edema. Neurovascularly intact NEUROLOGICAL: Cranial nerves II through XII grossly intact. Moving all extremities SKIN: Warm, dry, no petechiae, no rashes or lesions. Initial Vital Signs Initial Vital Signs: Vital Signs Temperature 97.2 F L 02/03/21 11:47 Pulse Rate 58 L 02/03/21 11:47 Respiratory Rate 12 02/03/21 11:47 Blood Pressure 137/63 02/03/21 11:47 Pulse Oximetry 98 02/03/21 11:47 Course Orders Ordered: ED Orders 02/03/21 11:53 XR ribs LT min 3V w CXR1V Stat 02/03/21 14:09 CMP [Comprehensive Metabolic Panel] Stat Complete Blood Count AUTO DIFF Stat Vital Signs Vital signs: Vital Signs - 8 hr 02/03/21 11:47 Temperature 97.2 F L Pulse Rate 58 L Respiratory Rate 12 Blood Pressure 137/63 Pulse Oximetry 98 MDM - Dizziness Lab Data Result diagrams: 02/03/21 14:09 02/03/21 14:09 Labs: Lab Results 02/03/21 02/03/21 Range/Units 14:09 14:09 WBC 6.4 (4.5-11.0) X10^3/uL RBC 4.49 L (4.5-5.9) X10^6/uL Hgb 12.4 L (13.5-17.5) g/dL Hct 38.6 L (41-53) % MCV 86.1 (80-100) fL MCH 27.6 (26-34) PG MCHC 32.1 (30-36) % RDW 21.4 H (11.6-14.8) % Plt Count 209 (150-400) X10^3/uL Neut % (Auto) 65.5 (50-75) % Lymph % (Auto) 19.7 L (25-40) % [place] % (Auto) 9.1 (3-14) % Eos % (Auto) 4.3 H (2-4) % Baso % (Auto) 1.4 (0-2) % Neut # (Auto) 4200 (2811-6972) /uL Lymph # (Auto) 1300 (5564-2080) /uL [place] # (Auto) 600 (0-900) /uL Eos # (Auto) 300 (0-450) /uL Baso # (Auto) 100 (0-100) /uL RBC Morphology Not Reportable Macrocytosis 1+ H Sodium 138 (137-145) mmol/L Potassium 4.4 (3.4-5.1) mmol/L Chloride 106 (98-107) mmol/L Carbon Dioxide 27 (22-32) mmol/L BUN 18 (9-20) mg/dL Creatinine 0.89 (0.66-1.25) mg/dL Estimated GFR > 60.0 (>60) mL/min BUN/Creatinine Ratio 20.2 (6-22) Glucose 99 (80-110) mg/dL Calcium 9.3 (8.4-10.2) mg/dL Total Bilirubin 0.9 (0.2-1.3) mg/dL AST 33 (17-59) IU/L ALT 22 (<50) IU/L Alkaline Phosphatase 91 (38-126) U/L Total Protein 7.1 (6.3-8.2) g/dL Albumin 4.0 (3.5-5.0) g/dL Globulin 3.1 (1.7-4.1) g/dL Albumin/Globulin Ratio 1.3 (1.0-2.8) Imaging Data Chest x-ray: Radiologist's Impression: [address] [id number] ReportSigned Patient: Krunal Mahmood [facility]#: [id number]: 3Acct:[id number]/Sex: 76 / MDate of Service: 02/03/21Loc: EDAccession Number: [id number] Procedure: XR ribs LT min 3V w CXR1V Ordering Provider: Debbie Land D.O. PROCEDURE: XR RIBS LT MIN 3V W CXR1V INDICATIONS: left rib pain TECHNIQUE: 2 views of the left ribs were acquired, along with a single view chest. COMPARISON: None. FINDINGS: Surgical changes and devices: None. Bones and chest wall: No dislocations. No suspicious bony lesions. Overlying soft tissues appear unremarkable. There is a anterior fracture of the 7th rib, without pneumothorax. Lungs and pleura: No pleural effusions or pneumothorax. Lungs appear clear. Mediastinum: Mediastinal contours appear normal. Heart size is normal. IMPRESSION: No right-sided trauma, and there is a left-sided anterior 7th rib fracture without associated pneumothorax. Dictated by: Dony Pritchett M.D. on 02/03/2021 at 12:47 Approved by: Dony Pritchett M.D. on 02/03/2021 at 12:49 [facility] Narrative Medical decision making narrative: This is a 76-year-old male comes emergency department with some left-sided rib pain after spending quite a bit of time weaning on that area over an area of concrete. Patient does appear to have an isolated rib fracture. He has some mild pain he defers anything here but is open to some pain medication at home. Labs appears stable. Vital signs appear stable. No signs of hemo or pneumothorax. Patient was set up with incentive spirometer and training. Return precautions in all questions answered. Discharge Plan Departure Patient Disposition: Home Clinical Impression: Closed rib fracture Instructions: DI for Rib Fracture Activity Restrictions/Additional Instructions: Follow-up with your physician in the next week for recheck and any refills for pain medication. Your imaging today does show a left-sided 7th rib fracture. Use the incentive spirometer once hourly while awake to keep your lungs expanded and prevent pneumonia. Take pain medication as prescribed. This medication can make you sleepy do not drive, perform hazardous activities or make any major decisions while taking it. This medication will make you constipated please take a stool softener once to twice daily until stools are soft and regular. Colace is a good choice of stool softener. Prescription was sent to [facility] in [place]. Please return for fevers, new or worsening chest pain, shortness of breath, persistent vomiting, lightheadedness or passing out, new swelling of her extremities or other new or concerning symptoms. Prescriptions: New hydrocodone-acetaminophen 5-325 mg tablet 1 tab PO Q6H PRN (Reason: pain) Qty: 20 RF: 0 No Action metoprolol succinate 50 mg tablet extended release 24 hr 25 mg PO BID RF: 0 methotrexate sodium 2.5 mg tablet 7.5 mg PO SEEINSTR RF: 0 bupropion HCl 150 mg tablet extended release 24 hr 150 mg PO DAILY RF: 0 atorvastatin 10 mg tablet 10 mg PO DAILY RF: 0 diethylpropion 25 mg tablet 25 mg PO TID RF: 0 gabapentin 300 mg capsule 600 mg PO BEDTIME RF: 0 Xarelto 20 mg tablet 20 mg PO DAILY Qty: 30 RF: 0 fluoxetine 20 mg Capsule 20 mg PO DAILY RF: 0 vardenafil 20 mg Tablet 20 mg PO DAILY PRN (Reason: Sexual Activity) RF: 0 acetaminophen 325 mg Tablet 975 mg PO TID Qty: 0 RF: 0 docusate sodium 100 mg Capsule 100 mg PO BID Qty: 0 RF: 0 oxycodone 5 mg Tablet 5 mg PO Q4-6H PRN (Reason: Pain, Moderate (4-6)) Qty: 0 RF: 0 hydroxyzine pamoate 25 mg Capsule 25 mg PO Q4HR PRN (Reason: Muscle Spasm) Qty: 0 RF: 0 Referrals: Kavita Aranda MD [Primary Care Provider] -
== END 2021-02-03 17:17 | disposition home or self-care (01) ==
PROVIDERS: Emergency Provider Emergency Medicine; PCP Internal Medicine
DX: S22.32XA Fracture of one rib, left side, initial encounter for closed fracture (principal); R07.89 Other chest pain; R07.81 Pleurodynia; Z79.01 Long term (current) use of anticoagulants
CPT/HCPCS: 36415; 71101; 80053; 85025; 99284

== ENCOUNTER 2021-07-29 10:30 | Outpatient (RCR) | payer MEDICARE, OTHER, SELFPAY ==
[2018-09-06 16:27] VITALS: BMI 31.1
--- NOTE | 2021-05-08 13:34 | PT.OIE ---
Current Diagnoses Stiffness of other specified joint, not elsewhere classified (05/08/21) Spondylosis without myelopathy or radiculopathy, lumbar region (05/08/21) Past Medical History (Last Reviewed 02/03/21 @ 19:50 by Debbie Land DO) Alcoholism Anxiety Atrophic gastritis Chronic low back pain Cyst in hand (~2019) Depression Diverticulosis Dizziness Erectile dysfunction History of colon polyps History of total left knee replacement (TKR) HTN (hypertension) Hx of lithotripsy Hydronephrosis Hyperlipidemia Insomnia Ischemia Nephrolithiasis YAIMA on CPAP Osteoarthritis Paroxysmal atrial fibrillation Paroxysmal atrial flutter Prediabetes Psoriasis Psoriatic arthritis Psoriatic arthropathy Retroperitoneal mass RLS (restless legs syndrome) Sinus congestion Syncope Testosterone deficiency Vitamin D deficiency Past Surgical History (Last Reviewed 02/03/21 @ 19:50 by Debbie Land DO) History of total left knee replacement (TKR) Hx of lithotripsy Visit Care Team Role Provider Type Kavita Aranda MD Primary Care Provider Non-Staff Specialty: Internal Medicine Address: [address] [place] [address], [address], [place], [address] Email: Christopher Cox MD Attending Provider Physician Referring Provider Specialty: Orthopedics Address: [address] [place] [address], [address] Email: [email or web address] [facility] Initial Evaluation PT-OP-A Visit Information Start: 05/08/21 13:03 Freq: Status: Active Protocol: Document 05/08/21 12:00 DCW (Rec: 05/08/21 13:20 [facility] [id number]) Out-Patient Physical Therapy Visit Information Visit Information Visit Type Initial Evaluation Visit Start Time 12:00 Visit Stop Time 12:45 Total Visit Minutes 45 Visit Number 1 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 Pt has underlying condition of psoriatic arthritis, for which he undergoes infusions every 8 weeks. Pt has been seen at this clinic multiple times for this condition, and typically improves fairly well with therapy. Pt's last PT session abruptly ended earlier this year after he broke multiple ribs while working in his yard , but has now returned to continue therapy. Pt had been having some increased pain as well in his right knee, which underwent a TKA two years ago, however he had scheduled a follow-up with his surgeon to discuss the pain, but has been feeling fine now since then. Pt had also recently seen Dr Christopher Adam for an assessment of his back. Pt reports that Dr Adam was trying to talk me into deadening the nerve in my back, but pt feels this is an extreme measure at this time. 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 Pt also notes that walking more than 1000' is about him limit before fatigue or his back starts to bother him. Pt does note that he has actually been feeling better over the past few weeks , so while he has had some back pain recently, it's not as bad as it was when he requested a return to PT. Prior Treatments and Tests R TKA Multiple courses of PT Treatment Goals Patient/Caregiver Goals Improve core strength, back mobility, and standing/walking tolerance PT-OP-C Subjective Start: 05/08/21 13:03 Freq: Status: Active Protocol: Document 05/08/21 12:00 DCW (Rec: 05/08/21 13:20 DCW [id number]) OP-PT Subjective Patient Comments Patient Comments I'm just really coming down from where I ad[place], I'm really not lifting much of anything. Patient Questionnaires Oswestry Low Back Index Oswestry Score 17/50 = 34% Oswestry Impairment 20 to 39% Impaired (Score 20- 39) OP-PT Pain Assessment Pain Assessment Grid Paper Pain Assessment Grid Completed Yes Location Bilateral Lower Back Intensity 3 Scale Used Numeric (0 - 10) Description Aching,Throbbing PT-OP-F Manual Assessment Start: 05/08/21 13:03 Freq: Status: Active Protocol: Document 05/08/21 12:00 DCW (Rec: 05/08/21 13:20 DCW [id number]) Manual Assessments Soft Tissue Assessment Soft Tissue Mobility Assessment Moderate tone along bilateral lumbar paraspinals, left QL, and bilateral posterior hip Joint Mobility Assessment Joint Mobility Assessment Mild hypomobility of lumbar spine, with movement PT-OP-K Range of Motion Start: 05/08/21 13:03 Freq: Status: Active Protocol: Document 05/08/21 12:00 DCW (Rec: 05/08/21 13:20 DCW [id number]) Lumbar Spine Range of Motion Lumbar Spine Active Degrees Testing Position Standing Flexion 65 Extension 15 Lateral Flexion Left 54 Lateral Flexion Right 53 ROM Limitations Soft Tissue Tightness,Bony Restriction,Pain PT-OP-L Special Tests Start: 05/08/21 13:03 Freq: Status: Active Protocol: Document 05/08/21 12:00 DCW (Rec: 05/08/21 13:23 DCW [id number]) Special Tests Lumbar Spine Special Tests Torsion Test Results Negative Vertical Spine Loading Test Results Negative A-P Shearing Test Results Negative Straight Leg Raise Test Results Hamstring stiffness R: 53?, L: 60? Standing Flexion Test Results Stiffness Slump Test Results Negative Passive Neck Flexion Test Results Negative PT-OP-M Strength Start: 05/08/21 13:03 Freq: Status: Active Protocol: Document 05/08/21 12:00 DCW (Rec: 05/08/21 13:23 DCW [id number]) Trunk Strength Trunk Manual Muscle Testing Core Stabilization Good initial TrA contraction, quick fatigue, 4-/5 Hip Strength Hip Manual Muscle Testing Right Flexion (L2) 4 Good Extension (S1) 4- Good- Abduction 4- Good- Adduction 4 Good Left Flexion (L2) 4 Good Extension (S1) 4- Good- Abduction 4- Good- Adduction 4 Good Knee Strength Knee Manual Muscle Testing Right Flexion (S2) 4 Good Extension (L3) 4+ Good+ Left Flexion (S2) 4 Good Extension (L3) 4+ Good+ PT-OP-T Assessment and Plan Start: 05/08/21 13:03 Freq: Status: Active Protocol: Document 05/08/21 12:00 DCW (Rec: 05/08/21 13:34 DCW [id number]) Physical Therapy Assessment Rehab Potential Rehabilitation Potential Good Evaluation Complexity Number of Personal Factors/Comorbidities 1-2 Number of Body Systems Impaired 3 Clinical Presentation at Evaluation Evolving Impairments Impairments Activity Tolerance,Functional Activities,Functional Mobility ,Pain,Posture,ROM,Soft Tissue Mobility,Strength Goals Three Impairment 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 Longterm Goal (LTG) 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 shop 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 LTG Duration 07/31/20 Two Impairment Pt unable to walk more than 1000' without sitting and resting Earth Burner Goal (LTG) Pt to ambulate 1000'+ during 6 MWT with no rest breaks LTG Duration 07/31/21 One Impairment Pt does not have an appropriate home exercise program Short Term Goal (STG) Pt to be independent and compliant with an appropriate HEP STG Duration 06/19/21 Assessment Summary Assessment Pt presents with signs and symptoms consistent with referring diagnosis of lumbar back pain secondary to spondylosis. Pt has been previously seen for this condition at this clinic, and typically responds fairly well to therapy. Pt currently having the most difficulty with sustained standing or walking any distance. Pt overall is actually doing better with lumbar tone and lumbar ROM than he has at previous points in the past when he was attending skilled therapy. 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 Physical Therapy Plan Frequency and Duration Frequency of Treatment 2x/Week Duration of Treatment 12 weeks Plan of Care Start Date 05/08/21 Plan of Care End Date 07/31/21 Therapeutic Interventions Therapeutic Interventions Aquatic Therapy,Home Exercise Program,Joint Mobilizations, Manual Therapy,Neuromuscular Re-education,Patient/Caregiver Education,Self-Care/Home Management,Soft Tissue Mobilization,Therapeutic Activities,Therapeutic Exercises Modalities Cold Pack/Ice Massage,Electric Stimulation,Hot Packs Next Visit Focus/Plan Next Note Type Treatment Note Next Visit Plan Core strengthening, lumbar STM , increased activity tolerance
--- NOTE | 2021-05-08 13:35 | PT.OPPOC ---
Physical, Occupational & Speech Therapy At [facility] Current Diagnoses Stiffness of other specified joint, not elsewhere classified (05/08/21) Spondylosis without myelopathy or radiculopathy, lumbar region (05/08/21) Visit Care Team Role Provider Type Kavita Aranda MD Primary Care Provider Non-Staff Specialty: Internal Medicine Address: [address] [place] [address], [address], [place], [address] Email: Christopher Cox MD Attending Provider Physician Referring Provider Specialty: Orthopedics Address: [address] [place] [address], [id number] Email: [email or web address] Plan Of Care PT-OP-T Assessment and Plan Start: 05/08/21 13:03 Freq: Status: Active Protocol: Document 05/08/21 12:00 DCW (Rec: 05/08/21 13:34 DCW [id number]) Physical Therapy Assessment Rehab Potential Rehabilitation Potential Good Evaluation Complexity Number of Personal Factors/Comorbidities 1-2 Number of Body Systems Impaired 3 Clinical Presentation at Evaluation Evolving Impairments Impairments Activity Tolerance,Functional Activities,Functional Mobility ,Pain,Posture,ROM,Soft Tissue Mobility,Strength Goals Three Impairment 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 Goal (LTG) 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 Pt has been previously seen for this condition at this clinic, and typically responds fairly well to therapy. Pt currently having the most difficulty with sustained standing or walking any distance. Pt overall is actually doing better with lumbar tone and lumbar ROM than he has at previous points in the past when he was attending skilled therapy. 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 Physical Therapy Plan Frequency and Duration Frequency of Treatment 2x/Week Duration of Treatment 12 weeks Plan of Care Start Date 05/08/21 Plan of Care End Date 07/31/21 Therapeutic Interventions Therapeutic Interventions Aquatic Therapy,Home Exercise Program,Joint Mobilizations, Manual Therapy,Neuromuscular Re-education,Patient/Caregiver Education,Self-Care/Home Management,Soft Tissue Mobilization,Therapeutic Activities,Therapeutic Exercises Modalities Cold Pack/Ice Massage,Electric Stimulation,Hot Packs Next Visit Focus/Plan Next Note Type Treatment Note Next Visit Plan Core strengthening, lumbar STM , increased activity tolerance Plan of Care Dates Plan of Care Start Date 05/08/21 Plan of Care End Date 07/31/21 Electronically Signed by: Evaristo Carvalho, PT 05/08/21 1805 Please Sign and Return: I have reviewed this Plan of Care and certify that the skilled therapy services above are required to meet the patient?s needs. Physician Signature Date Printed Name and Credentials Clinical Instructor Signature Printed Name and Credentials
--- NOTE | 2021-05-13 12:00 | PT.OTN ---
Current Diagnoses Stiffness of other specified joint, not elsewhere classified (05/13/21) Spondylosis without myelopathy or radiculopathy, lumbar region (05/13/21) Physical Therapy Treatment Note PT-OP-A Visit Information Start: 05/08/21 13:03 Freq: Status: Active Protocol: Document 05/13/21 11:15 DCW (Rec: 05/13/21 12:00 DCW [id number]) Out-Patient Physical Therapy Visit Information Visit Information Visit Type Treatment Note Visit Start Time 11:15 Visit Stop Time 12:00 Total Visit Minutes 45 Visit Number 2 Number of CERAMIC TILE SETTER Visits 0 Evaluation Information Evaluation Date 05/08/21 PT-OP-B Current Condition Start: 05/08/21 13:03 Freq: Status: Active Protocol: Document 05/08/21 12:00 DCW (Rec: 05/08/21 13:20 DCW [id number]) Current Condition History of Current Condition Onset Date Multi-year history Current Complaints Low back pain, difficulty standing History of Current Condition Pt is a 76 year old male very well known to the clinic presenting with a long- standing history of low back pain and stiffness. Pt has underlying condition of psoriatic arthritis, for which he undergoes infusions every 8 weeks. Pt has been seen at this clinic multiple times for this condition, and typically improves fairly well with therapy. Pt's last PT session abruptly ended earlier this year after he broke multiple ribs while working in his yard , but has now returned to continue therapy. Pt had been having some increased pain as well in his right knee, which underwent a TKA two years ago, however he had scheduled a follow-up with his surgeon to discuss the pain, but has been feeling fine now since then. Pt had also recently seen Dr Christopher Adam for an assessment of his back. Pt reports that Dr Adam was trying to talk me into deadening the nerve in my back, but pt feels this is an extreme measure at this time. 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 Pt also notes that walking more than 1000' is about him limit before fatigue or his back starts to bother him. Pt does note that he has actually been feeling better over the past few weeks , so while he has had some back pain recently, it's not as bad as it was when he requested a return to PT. Prior Treatments and Tests R TKA Multiple courses of PT Treatment Goals Patient/Caregiver Goals Improve core strength, back mobility, and standing/walking tolerance PT-OP-C Subjective Start: 05/08/21 13:03 Freq: Status: Active Protocol: Document 05/13/21 11:15 DCW (Rec: 05/13/21 12:00 DCW [id number]) OP-PT Subjective Patient Comments Patient Comments Pt notes he is doing well today. PT-OP-F Manual Assessment Start: 05/08/21 13:03 Freq: Status: Active Protocol: Document 05/08/21 12:00 DCW (Rec: 05/08/21 13:20 DCW [id number]) Manual Assessments Soft Tissue Assessment Soft Tissue Mobility Assessment Moderate tone along bilateral lumbar paraspinals, left QL, and bilateral posterior hip Joint Mobility Assessment Joint Mobility Assessment Mild hypomobility of lumbar spine, with movement PT-OP-K Range of Motion Start: 05/08/21 13:03 Freq: Status: Active Protocol: Document 05/08/21 12:00 DCW (Rec: 05/08/21 13:20 DCW [id number]) Lumbar Spine Range of Motion Lumbar Spine Active Degrees Testing Position Standing Flexion 65 Extension 15 Lateral Flexion Left 54 Lateral Flexion Right 53 ROM Limitations Soft Tissue Tightness,Bony Restriction,Pain PT-OP-L Special Tests Start: 05/08/21 13:03 Freq: Status: Active Protocol: Document 05/08/21 12:00 DCW (Rec: 05/08/21 13:23 DCW [id number]) Special Tests Lumbar Spine Special Tests Torsion Test Results Negative Vertical Spine Loading Test Results Negative A-P Shearing Test Results Negative Straight Leg Raise Test Results Hamstring stiffness R: 53?, L: 60? Standing Flexion Test Results Stiffness Slump Test Results Negative Passive Neck Flexion Test Results Negative PT-OP-M Strength Start: 05/08/21 13:03 Freq: Status: Active Protocol: Document 05/08/21 12:00 DCW (Rec: 05/08/21 13:23 DCW [id number]) Trunk Strength Trunk Manual Muscle Testing Core Stabilization Good initial TrA contraction, quick fatigue, 4-/5 Hip Strength Hip Manual Muscle Testing Right Flexion (L2) 4 Good Extension (S1) 4- Good- Abduction 4- Good- Adduction 4 Good Left Flexion (L2) 4 Good Extension (S1) 4- Good- Abduction 4- Good- Adduction 4 Good Knee Strength Knee Manual Muscle Testing Right Flexion (S2) 4 Good Extension (L3) 4+ Good+ Left Flexion (S2) 4 Good Extension (L3) 4+ Good+ PT-OP-Q Treatments Start: 05/08/21 13:03 Freq: Status: Active Protocol: Document 05/13/21 11:15 DCW (Rec: 05/13/21 12:00 DCW [id number]) Cardio Equipment Recumbent Elliptical (Biodex) Duration (Minutes) 6 Resistance 6 Seat Position 12 Other 766 steps Gym Equipment Cable Column (Body Solid) Pallof Press Resistance 30# Reps/Time x30 Therapeutic Ball Pelvic tilts/circles Exercise Details Pelvic tilts/circles Ball Size/Color Green - 65 cm Body Position Sitting Comments Use mirror for feedback Therapeutic Exercises Supine Exercises 2 Supine Exercise Name Piriformis stretch 1 Supine Exercise Name Hamstring stretch Manual Therapy Treatment Soft Tissue Mobilization 2 Body Location B Piriformis Mobilization Type Sustained Pressure Intensity/Depth Deep Body Position Sidelying 1 Body Location B lumbar paraspinals Mobilization Type Strumming,Sustained Pressure Intensity/Depth Moderate Body Position Sidelying PT-OP-T Assessment and Plan Start: 05/08/21 13:03 Freq: Status: Active Protocol: Document 05/13/21 11:15 DCW (Rec: 05/13/21 12:00 DCW [id number]) Physical Therapy Assessment Impairments Impairments Activity Tolerance,Functional Activities,Functional Mobility ,Pain,Posture,ROM,Soft Tissue Mobility,Strength Goals Three Impairment 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 Physical Therapy Plan Frequency and Duration Frequency of Treatment 2x/Week Duration of Treatment 12 weeks Plan of Care Start Date 05/08/21 Plan of Care End Date 07/31/21 Therapeutic Interventions Therapeutic Interventions Aquatic Therapy,Home Exercise Program,Joint Mobilizations, Manual Therapy,Neuromuscular Re-education,Patient/Caregiver Education,Self-Care/Home Management,Soft Tissue Mobilization,Therapeutic Activities,Therapeutic Exercises Modalities Cold Pack/Ice Massage,Electric Stimulation,Hot Packs Next Visit Focus/Plan Next Note Type Treatment Note Next Visit Plan Core strengthening, lumbar STM , increased activity tolerance
--- NOTE | 2021-05-16 11:59 | PT.OTN ---
Current Diagnoses Stiffness of other specified joint, not elsewhere classified (05/16/21) Spondylosis without myelopathy or radiculopathy, lumbar region (05/16/21) Physical Therapy Treatment Note PT-OP-A Visit Information Start: 05/08/21 13:03 Freq: Status: Active Protocol: Document 05/16/21 11:15 DCW (Rec: 05/16/21 11:58 DCW [id number]) Out-Patient Physical Therapy Visit Information Visit Information Visit Type Treatment Note Visit Start Time 11:15 Visit Stop Time 12:00 Total Visit Minutes 45 Visit Number 3 Number of MEAT TEAM LEAD Visits 0 Evaluation Information Evaluation Date 05/08/21 PT-OP-B Current Condition Start: 05/08/21 13:03 Freq: Status: Active Protocol: Document 05/08/21 12:00 DCW (Rec: 05/08/21 13:20 DCW [id number]) Current Condition History of Current Condition Onset Date Multi-year history Current Complaints Low back pain, difficulty standing History of Current Condition Pt is a 76 year old male very well known to the clinic presenting with a long- standing history of low back pain and stiffness. Pt has underlying condition of psoriatic arthritis, for which he undergoes infusions every 8 weeks. Pt has been seen at this clinic multiple times for this condition, and typically improves fairly well with therapy. Pt's last PT session abruptly ended earlier this year after he broke multiple ribs while working in his yard , but has now returned to continue therapy. Pt had been having some increased pain as well in his right knee, which underwent a TKA two years ago, however he had scheduled a follow-up with his surgeon to discuss the pain, but has been feeling fine now since then. Pt had also recently seen Dr Christopher Adam for an assessment of his back. Pt reports that Dr Adam was trying to talk me into deadening the nerve in my back, but pt feels this is an extreme measure at this time. 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 Pt also notes that walking more than 1000' is about him limit before fatigue or his back starts to bother him. Pt does note that he has actually been feeling better over the past few weeks , so while he has had some back pain recently, it's not as bad as it was when he requested a return to PT. Prior Treatments and Tests R TKA Multiple courses of PT Treatment Goals Patient/Caregiver Goals Improve core strength, back mobility, and standing/walking tolerance PT-OP-C Subjective Start: 05/08/21 13:03 Freq: Status: Active Protocol: Document 05/16/21 11:15 DCW (Rec: 05/16/21 11:58 DCW [id number]) OP-PT Subjective Patient Comments Patient Comments Since next week is my infusion, I'm starting to feel things a little more, but nothing too bad at the moment. PT-OP-F Manual Assessment Start: 05/08/21 13:03 Freq: Status: Active Protocol: Document 05/08/21 12:00 DCW (Rec: 05/08/21 13:20 DCW [id number]) Manual Assessments Soft Tissue Assessment Soft Tissue Mobility Assessment Moderate tone along bilateral lumbar paraspinals, left QL, and bilateral posterior hip Joint Mobility Assessment Joint Mobility Assessment Mild hypomobility of lumbar spine, with movement PT-OP-K Range of Motion Start: 05/08/21 13:03 Freq: Status: Active Protocol: Document 05/08/21 12:00 DCW (Rec: 05/08/21 13:20 DCW [id number]) Lumbar Spine Range of Motion Lumbar Spine Active Degrees Testing Position Standing Flexion 65 Extension 15 Lateral Flexion Left 54 Lateral Flexion Right 53 ROM Limitations Soft Tissue Tightness,Bony Restriction,Pain PT-OP-L Special Tests Start: 05/08/21 13:03 Freq: Status: Active Protocol: Document 05/08/21 12:00 DCW (Rec: 05/08/21 13:23 DCW [id number]) Special Tests Lumbar Spine Special Tests Torsion Test Results Negative Vertical Spine Loading Test Results Negative A-P Shearing Test Results Negative Straight Leg Raise Test Results Hamstring stiffness R: 53?, L: 60? Standing Flexion Test Results Stiffness Slump Test Results Negative Passive Neck Flexion Test Results Negative PT-OP-M Strength Start: 05/08/21 13:03 Freq: Status: Active Protocol: Document 05/08/21 12:00 DCW (Rec: 05/08/21 13:23 DCW [id number]) Trunk Strength Trunk Manual Muscle Testing Core Stabilization Good initial TrA contraction, quick fatigue, 4-/5 Hip Strength Hip Manual Muscle Testing Right Flexion (L2) 4 Good Extension (S1) 4- Good- Abduction 4- Good- Adduction 4 Good Left Flexion (L2) 4 Good Extension (S1) 4- Good- Abduction 4- Good- Adduction 4 Good Knee Strength Knee Manual Muscle Testing Right Flexion (S2) 4 Good Extension (L3) 4+ Good+ Left Flexion (S2) 4 Good Extension (L3) 4+ Good+ PT-OP-Q Treatments Start: 05/08/21 13:03 Freq: Status: Active Protocol: Document 05/16/21 11:15 DCW (Rec: 05/16/21 11:58 DCW [id number]) Cardio Equipment Recumbent Elliptical ([employer]) Duration (Minutes) 6 Resistance 6 Seat Position 12 Other 753 steps Gym Equipment Cable Column (Body Solid) Pallof Press Resistance 30# Reps/Time x30 Therapeutic Ball Pelvic tilts/circles Exercise Details Pelvic tilts/circles Ball Size/Color Green - 65 cm Body Position Sitting Comments Use mirror for feedback Therapeutic Exercises Supine Exercises 2 Supine Exercise Name Piriformis stretch 1 Supine Exercise Name Hamstring stretch Manual Therapy Treatment Soft Tissue Mobilization 2 Body Location B Piriformis Mobilization Type Sustained Pressure Intensity/Depth Deep Body Position Sidelying 1 Body Location B lumbar paraspinals Mobilization Type Strumming,Sustained Pressure Intensity/Depth Moderate Body Position Sidelying PT-OP-T Assessment and Plan Start: 05/08/21 13:03 Freq: Status: Active Protocol: Document 05/16/21 11:15 DCW (Rec: 05/16/21 11:58 DCW [id number]) Physical Therapy Assessment Impairments Impairments Activity Tolerance,Functional Activities,Functional Mobility ,Pain,Posture,ROM,Soft Tissue Mobility,Strength Goals Three Impairment 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 [employer] Analyst Goal (LTG) 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 Physical Therapy Plan Frequency and Duration Frequency of Treatment 2x/Week Duration of Treatment 12 weeks Plan of Care Start Date 05/08/21 Plan of Care End Date 07/31/21 Therapeutic Interventions Therapeutic Interventions Aquatic Therapy,Home Exercise Program,Joint Mobilizations, Manual Therapy,Neuromuscular Re-education,Patient/Caregiver Education,Self-Care/Home Management,Soft Tissue Mobilization,Therapeutic Activities,Therapeutic Exercises Modalities Cold Pack/Ice Massage,Electric Stimulation,Hot Packs Next Visit Focus/Plan Next Note Type Treatment Note Next Visit Plan Core strengthening, lumbar STM , increased activity tolerance
--- NOTE | 2021-05-16 11:59 | PT.OTN ---
Current Diagnoses Stiffness of other specified joint, not elsewhere classified (05/16/21) Spondylosis without myelopathy or radiculopathy, lumbar region (05/16/21) Physical Therapy Treatment Note PT-OP-A Visit Information Start: 05/08/21 13:03 Freq: Status: Active Protocol: Document 05/16/21 11:15 DCW (Rec: 05/16/21 11:58 DCW [id number]) Out-Patient Physical Therapy Visit Information Visit Information Visit Type Treatment Note Visit Start Time 11:15 Visit Stop Time 12:00 Total Visit Minutes 45 Visit Number 3 Number of ACCOUNTS RECEIVABLE ASSOCIATE Visits 0 Evaluation Information Evaluation Date 05/08/21 PT-OP-B Current Condition Start: 05/08/21 13:03 Freq: Status: Active Protocol: Document 05/08/21 12:00 DCW (Rec: 05/08/21 13:20 DCW [id number]) Current Condition History of Current Condition Onset Date Multi-year history Current Complaints Low back pain, difficulty standing History of Current Condition Pt is a 76 year old male very well known to the clinic presenting with a long- standing history of low back pain and stiffness. Pt has underlying condition of psoriatic arthritis, for which he undergoes infusions every 8 weeks. Pt has been seen at this clinic multiple times for this condition, and typically improves fairly well with therapy. Pt's last PT session abruptly ended earlier this year after he broke multiple ribs while working in his yard , but has now returned to continue therapy. Pt had been having some increased pain as well in his right knee, which underwent a TKA two years ago, however he had scheduled a follow-up with his surgeon to discuss the pain, but has been feeling fine now since then. Pt had also recently seen Dr Christopher Adam for an assessment of his back. Pt reports that Dr Adam was trying to talk me into deadening the nerve in my back, but pt feels this is an extreme measure at this time. 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 Pt also notes that walking more than 1000' is about him limit before fatigue or his back starts to bother him. Pt does note that he has actually been feeling better over the past few weeks , so while he has had some back pain recently, it's not as bad as it was when he requested a return to PT. Prior Treatments and Tests R TKA Multiple courses of PT Treatment Goals Patient/Caregiver Goals Improve core strength, back mobility, and standing/walking tolerance PT-OP-C Subjective Start: 05/08/21 13:03 Freq: Status: Active Protocol: Document 05/16/21 11:15 DCW (Rec: 05/16/21 11:58 DCW [id number]) OP-PT Subjective Patient Comments Patient Comments Since next week is my infusion, I'm starting to feel things a little more, but nothing too bad at the moment. PT-OP-F Manual Assessment Start: 05/08/21 13:03 Freq: Status: Active Protocol: Document 05/08/21 12:00 DCW (Rec: 05/08/21 13:20 DCW [id number]) Manual Assessments Soft Tissue Assessment Soft Tissue Mobility Assessment Moderate tone along bilateral lumbar paraspinals, left QL, and bilateral posterior hip Joint Mobility Assessment Joint Mobility Assessment Mild hypomobility of lumbar spine, with movement PT-OP-K Range of Motion Start: 05/08/21 13:03 Freq: Status: Active Protocol: Document 05/08/21 12:00 DCW (Rec: 05/08/21 13:20 DCW [id number]) Lumbar Spine Range of Motion Lumbar Spine Active Degrees Testing Position Standing Flexion 65 Extension 15 Lateral Flexion Left 54 Lateral Flexion Right 53 ROM Limitations Soft Tissue Tightness,Bony Restriction,Pain PT-OP-L Special Tests Start: 05/08/21 13:03 Freq: Status: Active Protocol: Document 05/08/21 12:00 DCW (Rec: 05/08/21 13:23 DCW [id number]) Special Tests Lumbar Spine Special Tests Torsion Test Results Negative Vertical Spine Loading Test Results Negative A-P Shearing Test Results Negative Straight Leg Raise Test Results Hamstring stiffness R: 53?, L: 60? Standing Flexion Test Results Stiffness Slump Test Results Negative Passive Neck Flexion Test Results Negative PT-OP-M Strength Start: 05/08/21 13:03 Freq: Status: Active Protocol: Document 05/08/21 12:00 DCW (Rec: 05/08/21 13:23 DCW [id number]) Trunk Strength Trunk Manual Muscle Testing Core Stabilization Good initial TrA contraction, quick fatigue, 4-/5 Hip Strength Hip Manual Muscle Testing Right Flexion (L2) 4 Good Extension (S1) 4- Good- Abduction 4- Good- Adduction 4 Good Left Flexion (L2) 4 Good Extension (S1) 4- Good- Abduction 4- Good- Adduction 4 Good Knee Strength Knee Manual Muscle Testing Right Flexion (S2) 4 Good Extension (L3) 4+ Good+ Left Flexion (S2) 4 Good Extension (L3) 4+ Good+ PT-OP-Q Treatments Start: 05/08/21 13:03 Freq: Status: Active Protocol: Document 05/16/21 11:15 DCW (Rec: 05/16/21 11:58 DCW [id number]) Cardio Equipment Recumbent Elliptical (BiodVDP) Duration (Minutes) 6 Resistance 6 Seat Position 12 Other 753 steps Gym Equipment Cable Column (Body Solid) Pallof Press Resistance 30# Reps/Time x30 Therapeutic Ball Pelvic tilts/circles Exercise Details Pelvic tilts/circles Ball Size/Color Green - 65 cm Body Position Sitting Comments Use mirror for feedback Therapeutic Exercises Supine Exercises 2 Supine Exercise Name Piriformis stretch 1 Supine Exercise Name Hamstring stretch Manual Therapy Treatment Soft Tissue Mobilization 2 Body Location B Piriformis Mobilization Type Sustained Pressure Intensity/Depth Deep Body Position Sidelying 1 Body Location B lumbar paraspinals Mobilization Type Strumming,Sustained Pressure Intensity/Depth Moderate Body Position Sidelying PT-OP-T Assessment and Plan Start: 05/08/21 13:03 Freq: Status: Active Protocol: Document 05/16/21 11:15 DCW (Rec: 05/16/21 11:58 DCW [id number]) Physical Therapy Assessment Impairments Impairments Activity Tolerance,Functional Activities,Functional Mobility ,Pain,Posture,ROM,Soft Tissue Mobility,Strength Goals Three Impairment 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 Mechanical Process Engineer Goal (LTG) 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 shop 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 LTG Duration 07/31/20 Two Impairment Pt unable to walk more than 1000' without sitting and resting Mechanical Process Engineer Goal (LTG) Pt to ambulate 1000'+ during 6 MWT with no rest breaks LTG Duration 07/31/21 One Impairment Pt does not have an appropriate home exercise program Short Term Goal (STG) Pt to be independent and compliant with an appropriate HEP STG Duration 06/19/21 Assessment Summary Assessment Pt doing better than he usually is at this point in his infusion cycle, just some stiffness overall in his toes. Physical Therapy Plan Frequency and Duration Frequency of Treatment 2x/Week Duration of Treatment 12 weeks Plan of Care Start Date 05/08/21 Plan of Care End Date 07/31/21 Therapeutic Interventions Therapeutic Interventions Aquatic Therapy,Home Exercise Program,Joint Mobilizations, Manual Therapy,Neuromuscular Re-education,Patient/Caregiver Education,Self-Care/Home Management,Soft Tissue Mobilization,Therapeutic Activities,Therapeutic Exercises Modalities Cold Pack/Ice Massage,Electric Stimulation,Hot Packs Next Visit Focus/Plan Next Note Type Treatment Note Next Visit Plan Core strengthening, lumbar STM , increased activity tolerance
--- NOTE | 2021-05-20 12:03 | PT.OTN ---
Current Diagnoses Stiffness of other specified joint, not elsewhere classified (05/20/21) Spondylosis without myelopathy or radiculopathy, lumbar region (05/20/21) Physical Therapy Treatment Note PT-OP-A Visit Information Start: 05/08/21 13:03 Freq: Status: Active Protocol: Document 05/20/21 11:19 DCW (Rec: 05/20/21 12:02 DCW [id number]) Out-Patient Physical Therapy Visit Information Visit Information Visit Type Treatment Note Visit Start Time 11:19 Visit Stop Time 12:00 Total Visit Minutes 41 Visit Number 4 Number of INDUSTRIAL CHEMICALS SUPERVISOR Visits 0 Evaluation Information Evaluation Date 05/08/21 PT-OP-B Current Condition Start: 05/08/21 13:03 Freq: Status: Active Protocol: Document 05/08/21 12:00 DCW (Rec: 05/08/21 13:20 DCW [id number]) Current Condition History of Current Condition Onset Date Multi-year history Current Complaints Low back pain, difficulty standing History of Current Condition Pt is a 76 year old male very well known to the clinic presenting with a long- standing history of low back pain and stiffness. Pt has underlying condition of psoriatic arthritis, for which he undergoes infusions every 8 weeks. Pt has been seen at this clinic multiple times for this condition, and typically improves fairly well with therapy. Pt's last PT session abruptly ended earlier this year after he broke multiple ribs while working in his yard , but has now returned to continue therapy. Pt had been having some increased pain as well in his right knee, which underwent a TKA two years ago, however he had scheduled a follow-up with his surgeon to discuss the pain, but has been feeling fine now since then. Pt had also recently seen Dr Christopher Adam for an assessment of his back. Pt reports that Dr Adam was trying to talk me into deadening the nerve in my back, but pt feels this is an extreme measure at this time. 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 Pt also notes that walking more than 1000' is about him limit before fatigue or his back starts to bother him. Pt does note that he has actually been feeling better over the past few weeks , so while he has had some back pain recently, it's not as bad as it was when he requested a return to PT. Prior Treatments and Tests R TKA Multiple courses of PT Treatment Goals Patient/Caregiver Goals Improve core strength, back mobility, and standing/walking tolerance PT-OP-C Subjective Start: 05/08/21 13:03 Freq: Status: Active Protocol: Document 05/20/21 11:19 DCW (Rec: 05/20/21 12:02 DCW [id number]) OP-PT Subjective Patient Comments Patient Comments Pt has his infusion later today, and is feeling better than usual this far into his cycle. PT-OP-F Manual Assessment Start: 05/08/21 13:03 Freq: Status: Active Protocol: Document 05/08/21 12:00 DCW (Rec: 05/08/21 13:20 DCW [id number]) Manual Assessments Soft Tissue Assessment Soft Tissue Mobility Assessment Moderate tone along bilateral lumbar paraspinals, left QL, and bilateral posterior hip Joint Mobility Assessment Joint Mobility Assessment Mild hypomobility of lumbar spine, with movement PT-OP-K Range of Motion Start: 05/08/21 13:03 Freq: Status: Active Protocol: Document 05/08/21 12:00 DCW (Rec: 05/08/21 13:20 DCW [id number]) Lumbar Spine Range of Motion Lumbar Spine Active Degrees Testing Position Standing Flexion 65 Extension 15 Lateral Flexion Left 54 Lateral Flexion Right 53 ROM Limitations Soft Tissue Tightness,Bony Restriction,Pain PT-OP-L Special Tests Start: 05/08/21 13:03 Freq: Status: Active Protocol: Document 05/08/21 12:00 DCW (Rec: 05/08/21 13:23 DCW [id number]) Special Tests Lumbar Spine Special Tests Torsion Test Results Negative Vertical Spine Loading Test Results Negative A-P Shearing Test Results Negative Straight Leg Raise Test Results Hamstring stiffness R: 53?, L: 60? Standing Flexion Test Results Stiffness Slump Test Results Negative Passive Neck Flexion Test Results Negative PT-OP-M Strength Start: 05/08/21 13:03 Freq: Status: Active Protocol: Document 05/08/21 12:00 DCW (Rec: 05/08/21 13:23 DCW [id number]) Trunk Strength Trunk Manual Muscle Testing Core Stabilization Good initial TrA contraction, quick fatigue, 4-/5 Hip Strength Hip Manual Muscle Testing Right Flexion (L2) 4 Good Extension (S1) 4- Good- Abduction 4- Good- Adduction 4 Good Left Flexion (L2) 4 Good Extension (S1) 4- Good- Abduction 4- Good- Adduction 4 Good Knee Strength Knee Manual Muscle Testing Right Flexion (S2) 4 Good Extension (L3) 4+ Good+ Left Flexion (S2) 4 Good Extension (L3) 4+ Good+ PT-OP-Q Treatments Start: 05/08/21 13:03 Freq: Status: Active Protocol: Document 05/20/21 11:19 DCW (Rec: 05/20/21 12:02 DCW [id number]) Cardio Equipment Recumbent Elliptical (BiodHapplink) Duration (Minutes) 6 Resistance 6 Seat Position 12 Other 753 steps Gym Equipment Cable Column (Body Solid) Pallof Press Resistance 30# Reps/Time x30 Therapeutic Ball Pelvic tilts/circles Exercise Details Pelvic tilts/circles Ball Size/Color Green - 65 cm Body Position Sitting Comments Use mirror for feedback Therapeutic Exercises Supine Exercises 2 Supine Exercise Name Piriformis stretch 1 Supine Exercise Name Hamstring stretch Manual Therapy Treatment Soft Tissue Mobilization 2 Body Location B Piriformis Mobilization Type Sustained Pressure Intensity/Depth Deep Body Position Sidelying 1 Body Location B lumbar paraspinals Mobilization Type Strumming,Sustained Pressure Intensity/Depth Moderate Body Position Sidelying PT-OP-T Assessment and Plan Start: 05/08/21 13:03 Freq: Status: Active Protocol: Document 05/20/21 11:19 DCW (Rec: 05/20/21 12:02 DCW [id number]) Physical Therapy Assessment Impairments Impairments Activity Tolerance,Functional Activities,Functional Mobility ,Pain,Posture,ROM,Soft Tissue Mobility,Strength Goals Three Impairment 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 Penitentiary Goal (LTG) 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 shop 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 LTG Duration 07/31/20 Two Impairment Pt unable to walk more than 1000' without sitting and resting Pre K Lead Teacher Goal (LTG) Pt to ambulate 1000'+ during 6 MWT with no rest breaks LTG Duration 07/31/21 One Impairment Pt does not have an appropriate home exercise program Short Term Goal (STG) Pt to be independent and compliant with an appropriate HEP STG Duration 06/19/21 Assessment Summary Assessment Pt continues to show that he is doing well, still some issues with activity tolerance , complains of difficulty walking 1000' out in his yard. Physical Therapy Plan Frequency and Duration Frequency of Treatment 2x/Week Duration of Treatment 12 weeks Plan of Care Start Date 05/08/21 Plan of Care End Date 07/31/21 Therapeutic Interventions Therapeutic Interventions Aquatic Therapy,Home Exercise Program,Joint Mobilizations, Manual Therapy,Neuromuscular Re-education,Patient/Caregiver Education,Self-Care/Home Management,Soft Tissue Mobilization,Therapeutic Activities,Therapeutic Exercises Modalities Cold Pack/Ice Massage,Electric Stimulation,Hot Packs Next Visit Focus/Plan Next Note Type Treatment Note Next Visit Plan Core strengthening, lumbar STM , increased activity tolerance
--- NOTE | 2021-05-23 12:02 | PT.OTN ---
Current Diagnoses Stiffness of other specified joint, not elsewhere classified (05/23/21) Spondylosis without myelopathy or radiculopathy, lumbar region (05/23/21) Physical Therapy Treatment Note PT-OP-A Visit Information Start: 05/08/21 13:03 Freq: Status: Active Protocol: Document 05/23/21 11:17 DCW (Rec: 05/23/21 12:01 DCW [id number]) Out-Patient Physical Therapy Visit Information Visit Information Visit Type Treatment Note Visit Start Time 11:17 Visit Stop Time 12:00 Total Visit Minutes 43 Visit Number 5 Number of TEST TUBE MAKER Visits 0 Evaluation Information Evaluation Date 05/08/21 PT-OP-B Current Condition Start: 05/08/21 13:03 Freq: Status: Active Protocol: Document 05/08/21 12:00 DCW (Rec: 05/08/21 13:20 DCW [id number]) Current Condition History of Current Condition Onset Date Multi-year history Current Complaints Low back pain, difficulty standing History of Current Condition Pt is a 76 year old male very well known to the clinic presenting with a long- standing history of low back pain and stiffness. Pt has underlying condition of psoriatic arthritis, for which he undergoes infusions every 8 weeks. Pt has been seen at this clinic multiple times for this condition, and typically improves fairly well with therapy. Pt's last PT session abruptly ended earlier this year after he broke multiple ribs while working in his yard , but has now returned to continue therapy. Pt had been having some increased pain as well in his right knee, which underwent a TKA two years ago, however he had scheduled a follow-up with his surgeon to discuss the pain, but has been feeling fine now since then. Pt had also recently seen Dr Christopher Adam for an assessment of his back. Pt reports that Dr Adam was trying to talk me into deadening the nerve in my back, but pt feels this is an extreme measure at this time. 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 Pt also notes that walking more than 1000' is about him limit before fatigue or his back starts to bother him. Pt does note that he has actually been feeling better over the past few weeks , so while he has had some back pain recently, it's not as bad as it was when he requested a return to PT. Prior Treatments and Tests R TKA Multiple courses of PT Treatment Goals Patient/Caregiver Goals Improve core strength, back mobility, and standing/walking tolerance PT-OP-C Subjective Start: 05/08/21 13:03 Freq: Status: Active Protocol: Document 05/23/21 11:17 DCW (Rec: 05/23/21 12:01 DCW [id number]) OP-PT Subjective Patient Comments Patient Comments I was going to test myself, see how well I could do a 1000 ' walk, but then I forgot. PT-OP-F Manual Assessment Start: 05/08/21 13:03 Freq: Status: Active Protocol: Document 05/08/21 12:00 DCW (Rec: 05/08/21 13:20 DCW [id number]) Manual Assessments Soft Tissue Assessment Soft Tissue Mobility Assessment Moderate tone along bilateral lumbar paraspinals, left QL, and bilateral posterior hip Joint Mobility Assessment Joint Mobility Assessment Mild hypomobility of lumbar spine, with movement PT-OP-K Range of Motion Start: 05/08/21 13:03 Freq: Status: Active Protocol: Document 05/08/21 12:00 DCW (Rec: 05/08/21 13:20 DCW [id number]) Lumbar Spine Range of Motion Lumbar Spine Active Degrees Testing Position Standing Flexion 65 Extension 15 Lateral Flexion Left 54 Lateral Flexion Right 53 ROM Limitations Soft Tissue Tightness,Bony Restriction,Pain PT-OP-L Special Tests Start: 05/08/21 13:03 Freq: Status: Active Protocol: Document 05/08/21 12:00 DCW (Rec: 05/08/21 13:23 DCW [id number]) Special Tests Lumbar Spine Special Tests Torsion Test Results Negative Vertical Spine Loading Test Results Negative A-P Shearing Test Results Negative Straight Leg Raise Test Results Hamstring stiffness R: 53?, L: 60? Standing Flexion Test Results Stiffness Slump Test Results Negative Passive Neck Flexion Test Results Negative PT-OP-M Strength Start: 05/08/21 13:03 Freq: Status: Active Protocol: Document 05/08/21 12:00 DCW (Rec: 05/08/21 13:23 DCW [id number]) Trunk Strength Trunk Manual Muscle Testing Core Stabilization Good initial TrA contraction, quick fatigue, 4-/5 Hip Strength Hip Manual Muscle Testing Right Flexion (L2) 4 Good Extension (S1) 4- Good- Abduction 4- Good- Adduction 4 Good Left Flexion (L2) 4 Good Extension (S1) 4- Good- Abduction 4- Good- Adduction 4 Good Knee Strength Knee Manual Muscle Testing Right Flexion (S2) 4 Good Extension (L3) 4+ Good+ Left Flexion (S2) 4 Good Extension (L3) 4+ Good+ PT-OP-Q Treatments Start: 05/08/21 13:03 Freq: Status: Active Protocol: Document 05/23/21 11:17 DCW (Rec: 05/23/21 12:01 DCW [id number]) Cardio Equipment Recumbent Elliptical (BiodKidos) Duration (Minutes) 6 Resistance 6 Seat Position 12 Other 651 steps Gym Equipment Cable Column (Body Solid) Pallof Press Resistance 30# Reps/Time x30 Therapeutic Ball Pelvic tilts/circles Exercise Details Pelvic tilts/circles Ball Size/Color Green - 65 cm Body Position Sitting Comments Use mirror for feedback Therapeutic Exercises Supine Exercises 2 Supine Exercise Name Piriformis stretch 1 Supine Exercise Name Hamstring stretch Gait Training Gait Activity 1 Description Gait testin' Device Used none Comments 5:38 min Manual Therapy Treatment Soft Tissue Mobilization 2 Body Location B Piriformis Mobilization Type Sustained Pressure Intensity/Depth Deep Body Position Sidelying 1 Body Location B lumbar paraspinals Mobilization Type Strumming,Sustained Pressure Intensity/Depth Moderate Body Position Sidelying PT-OP-T Assessment and Plan Start: 05/08/21 13:03 Freq: Status: Active Protocol: Document 05/23/21 11:17 DCW (Rec: 05/23/21 12:01 DCW [id number]) Physical Therapy Assessment Impairments Impairments Activity Tolerance,Functional Activities,Functional Mobility ,Pain,Posture,ROM,Soft Tissue Mobility,Strength Goals Three Impairment 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 Nursing Home Goal (LTG) 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 shop 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 LTG Duration 07/31/20 Two Impairment Pt unable to walk more than 1000' without sitting and resting Nursing Home Goal (LTG) Pt to ambulate 1000'+ during 6 MWT with no rest breaks LTG Duration 07/31/21 One Impairment Pt does not have an appropriate home exercise program Short Term Goal (STG) Pt to be independent and compliant with an appropriate HEP STG Duration 06/19/21 Assessment Summary Assessment Pt pretty happy with how he felt following his 1000' walk today, noted his back was getting a little sore, but overall felt it went really well. Physical Therapy Plan Frequency and Duration Frequency of Treatment 2x/Week Duration of Treatment 12 weeks Plan of Care Start Date 05/08/21 Plan of Care End Date 07/31/21 Therapeutic Interventions Therapeutic Interventions Aquatic Therapy,Home Exercise Program,Joint Mobilizations, Manual Therapy,Neuromuscular Re-education,Patient/Caregiver Education,Self-Care/Home Management,Soft Tissue Mobilization,Therapeutic Activities,Therapeutic Exercises Modalities Cold Pack/Ice Massage,Electric Stimulation,Hot Packs Next Visit Focus/Plan Next Note Type Treatment Note Next Visit Plan Core strengthening, lumbar STM , increased activity tolerance
--- NOTE | 2021-05-26 12:00 | PT.OTN ---
Current Diagnoses Stiffness of other specified joint, not elsewhere classified (05/26/21) Spondylosis without myelopathy or radiculopathy, lumbar region (05/26/21) Physical Therapy Treatment Note PT-OP-A Visit Information Start: 05/08/21 13:03 Freq: Status: Active Protocol: Document 05/26/21 11:21 DCW (Rec: 05/26/21 12:00 DCW [id number]) Out-Patient Physical Therapy Visit Information Visit Information Visit Type Treatment Note Visit Start Time Visit Stop Time 12:00 Total Visit Minutes 39 Visit Number 6 Number of SALES ARCHITECT Visits 0 Evaluation Information Evaluation Date 05/08/21 PT-OP-B Current Condition Start: 05/08/21 13:03 Freq: Status: Active Protocol: Document 05/08/21 12:00 DCW (Rec: 05/08/21 13:20 DCW [id number]) Current Condition History of Current Condition Onset Date Multi-year history Current Complaints Low back pain, difficulty standing History of Current Condition Pt is a 76 year old male very well known to the clinic presenting with a long- standing history of low back pain and stiffness. Pt has underlying condition of psoriatic arthritis, for which he undergoes infusions every 8 weeks. Pt has been seen at this clinic multiple times for this condition, and typically improves fairly well with therapy. Pt's last PT session abruptly ended earlier this year after he broke multiple ribs while working in his yard , but has now returned to continue therapy. Pt had been having some increased pain as well in his right knee, which underwent a TKA two years ago, however he had scheduled a follow-up with his surgeon to discuss the pain, but has been feeling fine now since then. Pt had also recently seen Dr Christopher Adam for an assessment of his back. Pt reports that Dr Adam was trying to talk me into deadening the nerve in my back, but pt feels this is an extreme measure at this time. 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 Pt also notes that walking more than 1000' is about him limit before fatigue or his back starts to bother him. Pt does note that he has actually been feeling better over the past few weeks , so while he has had some back pain recently, it's not as bad as it was when he requested a return to PT. Prior Treatments and Tests R TKA Multiple courses of PT Treatment Goals Patient/Caregiver Goals Improve core strength, back mobility, and standing/walking tolerance PT-OP-C Subjective Start: 05/08/21 13:03 Freq: Status: Active Protocol: Document 05/26/21 11:21 DCW (Rec: 05/26/21 12:00 DCW [id number]) OP-PT Subjective Patient Comments Patient Comments Pt feeling very good today. PT-OP-F Manual Assessment Start: 05/08/21 13:03 Freq: Status: Active Protocol: Document 05/08/21 12:00 DCW (Rec: 05/08/21 13:20 DCW [id number]) Manual Assessments Soft Tissue Assessment Soft Tissue Mobility Assessment Moderate tone along bilateral lumbar paraspinals, left QL, and bilateral posterior hip Joint Mobility Assessment Joint Mobility Assessment Mild hypomobility of lumbar spine, with movement PT-OP-K Range of Motion Start: 05/08/21 13:03 Freq: Status: Active Protocol: Document 05/08/21 12:00 DCW (Rec: 05/08/21 13:20 DCW [id number]) Lumbar Spine Range of Motion Lumbar Spine Active Degrees Testing Position Standing Flexion 65 Extension 15 Lateral Flexion Left 54 Lateral Flexion Right 53 ROM Limitations Soft Tissue Tightness,Bony Restriction,Pain PT-OP-L Special Tests Start: 05/08/21 13:03 Freq: Status: Active Protocol: Document 05/08/21 12:00 DCW (Rec: 05/08/21 13:23 DCW [id number]) Special Tests Lumbar Spine Special Tests Torsion Test Results Negative Vertical Spine Loading Test Results Negative A-P Shearing Test Results Negative Straight Leg Raise Test Results Hamstring stiffness R: 53?, L: 60? Standing Flexion Test Results Stiffness Slump Test Results Negative Passive Neck Flexion Test Results Negative PT-OP-M Strength Start: 05/08/21 13:03 Freq: Status: Active Protocol: Document 05/08/21 12:00 DCW (Rec: 05/08/21 13:23 DCW [id number]) Trunk Strength Trunk Manual Muscle Testing Core Stabilization Good initial TrA contraction, quick fatigue, 4-/5 Hip Strength Hip Manual Muscle Testing Right Flexion (L2) 4 Good Extension (S1) 4- Good- Abduction 4- Good- Adduction 4 Good Left Flexion (L2) 4 Good Extension (S1) 4- Good- Abduction 4- Good- Adduction 4 Good Knee Strength Knee Manual Muscle Testing Right Flexion (S2) 4 Good Extension (L3) 4+ Good+ Left Flexion (S2) 4 Good Extension (L3) 4+ Good+ PT-OP-Q Treatments Start: 05/08/21 13:03 Freq: Status: Active Protocol: Document 05/26/21 11:21 DCW (Rec: 05/26/21 12:00 DCW [id number]) Cardio Equipment Recumbent Elliptical ([employer]) Duration (Minutes) 6 Resistance 5 Seat Position 12 Other 740 steps Gym Equipment Cable Column (Body Solid) Pallof Press Resistance 30# Reps/Time x30 Therapeutic Ball Pelvic tilts/circles Exercise Details Pelvic tilts/circles Ball Size/Color Green - 65 cm Body Position Sitting Comments Use mirror for feedback Therapeutic Exercises Supine Exercises 2 Supine Exercise Name Piriformis stretch 1 Supine Exercise Name Hamstring stretch Manual Therapy Treatment Soft Tissue Mobilization 2 Body Location B Piriformis Mobilization Type Sustained Pressure Intensity/Depth Deep Body Position Sidelying 1 Body Location B lumbar paraspinals Mobilization Type Strumming,Sustained Pressure Intensity/Depth Moderate Body Position Sidelying PT-OP-T Assessment and Plan Start: 05/08/21 13:03 Freq: Status: Active Protocol: Document 05/26/21 11:21 DCW (Rec: 05/26/21 12:00 DCW [id number]) Physical Therapy Assessment Impairments Impairments Activity Tolerance,Functional Activities,Functional Mobility ,Pain,Posture,ROM,Soft Tissue Mobility,Strength Goals Three Impairment 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 Fpc Goal (LTG) 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 shop 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 LTG Duration 07/31/20 Two Impairment Pt unable to walk more than 1000' without sitting and resting Fpc Goal (LTG) Pt to ambulate 1000'+ during 6 MWT with no rest breaks LTG Duration 07/31/21 One Impairment Pt does not have an appropriate home exercise program Short Term Goal (STG) Pt to be independent and compliant with an appropriate HEP STG Duration 06/19/21 Assessment Summary Assessment Pt continues to feels very good overall, showing improvement with lumbar ROM Physical Therapy Plan Frequency and Duration Frequency of Treatment 2x/Week Duration of Treatment 12 weeks Plan of Care Start Date 05/08/21 Plan of Care End Date 07/31/21 Therapeutic Interventions Therapeutic Interventions Aquatic Therapy,Home Exercise Program,Joint Mobilizations, Manual Therapy,Neuromuscular Re-education,Patient/Caregiver Education,Self-Care/Home Management,Soft Tissue Mobilization,Therapeutic Activities,Therapeutic Exercises Modalities Cold Pack/Ice Massage,Electric Stimulation,Hot Packs Next Visit Focus/Plan Next Note Type Treatment Note Next Visit Plan Core strengthening, lumbar STM , increased activity tolerance
--- NOTE | 2021-05-28 14:28 | PT.OTN ---
Current Diagnoses Stiffness of other specified joint, not elsewhere classified (05/28/21) Spondylosis without myelopathy or radiculopathy, lumbar region (05/28/21) Physical Therapy Treatment Note PT-OP-A Visit Information Start: 05/08/21 13:03 Freq: Status: Active Protocol: Document 05/28/21 13:47 DCW (Rec: 05/28/21 14:28 DCW [id number]) Out-Patient Physical Therapy Visit Information Visit Information Visit Type Treatment Note Visit Start Time 13:47 Visit Stop Time 14:30 Total Visit Minutes 43 Visit Number 7 Number of RESOURCE COORDINATOR Visits 0 Evaluation Information Evaluation Date 05/08/21 PT-OP-B Current Condition Start: 05/08/21 13:03 Freq: Status: Active Protocol: Document 05/08/21 12:00 DCW (Rec: 05/08/21 13:20 DCW [id number]) Current Condition History of Current Condition Onset Date Multi-year history Current Complaints Low back pain, difficulty standing History of Current Condition Pt is a 76 year old male very well known to the clinic presenting with a long- standing history of low back pain and stiffness. Pt has underlying condition of psoriatic arthritis, for which he undergoes infusions every 8 weeks. Pt has been seen at this clinic multiple times for this condition, and typically improves fairly well with therapy. Pt's last PT session abruptly ended earlier this year after he broke multiple ribs while working in his yard , but has now returned to continue therapy. Pt had been having some increased pain as well in his right knee, which underwent a TKA two years ago, however he had scheduled a follow-up with his surgeon to discuss the pain, but has been feeling fine now since then. Pt had also recently seen Dr Christopher Adam for an assessment of his back. Pt reports that Dr Adam was trying to talk me into deadening the nerve in my back, but pt feels this is an extreme measure at this time. 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 Pt also notes that walking more than 1000' is about him limit before fatigue or his back starts to bother him. Pt does note that he has actually been feeling better over the past few weeks , so while he has had some back pain recently, it's not as bad as it was when he requested a return to PT. Prior Treatments and Tests R TKA Multiple courses of PT Treatment Goals Patient/Caregiver Goals Improve core strength, back mobility, and standing/walking tolerance PT-OP-C Subjective Start: 05/08/21 13:03 Freq: Status: Active Protocol: Document 05/28/21 13:47 DCW (Rec: 05/28/21 14:28 DCW [id number]) OP-PT Subjective Patient Comments Patient Comments Actually pretty good today. PT-OP-F Manual Assessment Start: 05/08/21 13:03 Freq: Status: Active Protocol: Document 05/08/21 12:00 DCW (Rec: 05/08/21 13:20 DCW [id number]) Manual Assessments Soft Tissue Assessment Soft Tissue Mobility Assessment Moderate tone along bilateral lumbar paraspinals, left QL, and bilateral posterior hip Joint Mobility Assessment Joint Mobility Assessment Mild hypomobility of lumbar spine, with movement PT-OP-K Range of Motion Start: 05/08/21 13:03 Freq: Status: Active Protocol: Document 05/08/21 12:00 DCW (Rec: 05/08/21 13:20 DCW [id number]) Lumbar Spine Range of Motion Lumbar Spine Active Degrees Testing Position Standing Flexion 65 Extension 15 Lateral Flexion Left 54 Lateral Flexion Right 53 ROM Limitations Soft Tissue Tightness,Bony Restriction,Pain PT-OP-L Special Tests Start: 05/08/21 13:03 Freq: Status: Active Protocol: Document 05/08/21 12:00 DCW (Rec: 05/08/21 13:23 DCW [id number]) Special Tests Lumbar Spine Special Tests Torsion Test Results Negative Vertical Spine Loading Test Results Negative A-P Shearing Test Results Negative Straight Leg Raise Test Results Hamstring stiffness R: 53?, L: 60? Standing Flexion Test Results Stiffness Slump Test Results Negative Passive Neck Flexion Test Results Negative PT-OP-M Strength Start: 05/08/21 13:03 Freq: Status: Active Protocol: Document 05/08/21 12:00 DCW (Rec: 05/08/21 13:23 DCW [id number]) Trunk Strength Trunk Manual Muscle Testing Core Stabilization Good initial TrA contraction, quick fatigue, 4-/5 Hip Strength Hip Manual Muscle Testing Right Flexion (L2) 4 Good Extension (S1) 4- Good- Abduction 4- Good- Adduction 4 Good Left Flexion (L2) 4 Good Extension (S1) 4- Good- Abduction 4- Good- Adduction 4 Good Knee Strength Knee Manual Muscle Testing Right Flexion (S2) 4 Good Extension (L3) 4+ Good+ Left Flexion (S2) 4 Good Extension (L3) 4+ Good+ PT-OP-Q Treatments Start: 05/08/21 13:03 Freq: Status: Active Protocol: Document 05/28/21 13:47 DCW (Rec: 05/28/21 14:28 DCW [id number]) Cardio Equipment Recumbent Elliptical (BiodMemoryMerge) Duration (Minutes) 6 Resistance 5 Seat Position 12 Other 734 steps Gym Equipment Cable Column (Body Solid) Pallof Press Resistance 30# Reps/Time x30 Therapeutic Ball Pelvic tilts/circles Exercise Details Pelvic tilts/circles Ball Size/Color Green - 65 cm Body Position Sitting Comments Use mirror for feedback Therapeutic Exercises Supine Exercises 2 Supine Exercise Name Piriformis stretch 1 Supine Exercise Name Hamstring stretch Manual Therapy Treatment Soft Tissue Mobilization 2 Body Location B Piriformis Mobilization Type Sustained Pressure Intensity/Depth Deep Body Position Sidelying 1 Body Location B lumbar paraspinals Mobilization Type Strumming,Sustained Pressure Intensity/Depth Moderate Body Position Sidelying PT-OP-T Assessment and Plan Start: 05/08/21 13:03 Freq: Status: Active Protocol: Document 05/28/21 13:47 DCW (Rec: 05/28/21 14:28 DCW [id number]) Physical Therapy Assessment Impairments Impairments Activity Tolerance,Functional Activities,Functional Mobility ,Pain,Posture,ROM,Soft Tissue Mobility,Strength Goals Three Impairment 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 Assisted Goal (LTG) 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 shop 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 LTG Duration 07/31/20 Two Impairment Pt unable to walk more than 1000' without sitting and resting Assisted Goal (LTG) Pt to ambulate 1000'+ during 6 MWT with no rest breaks LTG Duration 07/31/21 One Impairment Pt does not have an appropriate home exercise program Short Term Goal (STG) Pt to be independent and compliant with an appropriate HEP STG Duration 06/19/21 Assessment Summary Assessment Pt had another good day today, moving better, showing better activity tolerance Physical Therapy Plan Frequency and Duration Frequency of Treatment 2x/Week Duration of Treatment 12 weeks Plan of Care Start Date 05/08/21 Plan of Care End Date 07/31/21 Therapeutic Interventions Therapeutic Interventions Aquatic Therapy,Home Exercise Program,Joint Mobilizations, Manual Therapy,Neuromuscular Re-education,Patient/Caregiver Education,Self-Care/Home Management,Soft Tissue Mobilization,Therapeutic Activities,Therapeutic Exercises Modalities Cold Pack/Ice Massage,Electric Stimulation,Hot Packs Next Visit Focus/Plan Next Note Type Treatment Note Next Visit Plan Core strengthening, lumbar STM , increased activity tolerance
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
--- NOTE | 2021-06-20 11:58 | PT.OTN ---
Current Diagnoses Stiffness of other specified joint, not elsewhere classified (06/20/21) Spondylosis without myelopathy or radiculopathy, lumbar region (06/20/21) Physical Therapy Treatment Note PT-OP-A Visit Information Start: 05/08/21 13:03 Freq: Status: Active Protocol: Document 06/20/21 11:16 DCW (Rec: 06/20/21 11:57 DCW [id number]) Out-Patient Physical Therapy Visit Information Visit Information Visit Type Treatment Note Visit Start Time 11:16 Visit Stop Time 12:00 Total Visit Minutes 44 Visit Number 9 Number of RADIOLOGY PHYSICIAN ASSISTANT Visits 0 Evaluation Information Evaluation Date 05/08/21 PT-OP-B Current Condition Start: 05/08/21 13:03 Freq: Status: Active Protocol: Document 05/08/21 12:00 DCW (Rec: 05/08/21 13:20 DCW [id number]) Current Condition History of Current Condition Onset Date Multi-year history Current Complaints Low back pain, difficulty standing History of Current Condition Pt is a 76 year old male very well known to the clinic presenting with a long- standing history of low back pain and stiffness. Pt has underlying condition of psoriatic arthritis, for which he undergoes infusions every 8 weeks. Pt has been seen at this clinic multiple times for this condition, and typically improves fairly well with therapy. Pt's last PT session abruptly ended earlier this year after he broke multiple ribs while working in his yard , but has now returned to continue therapy. Pt had been having some increased pain as well in his right knee, which underwent a TKA two years ago, however he had scheduled a follow-up with his surgeon to discuss the pain, but has been feeling fine now since then. Pt had also recently seen Dr Christopher Adam for an assessment of his back. Pt reports that Dr Adam was trying to talk me into deadening the nerve in my back, but pt feels this is an extreme measure at this time. 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 Pt also notes that walking more than 1000' is about him limit before fatigue or his back starts to bother him. Pt does note that he has actually been feeling better over the past few weeks , so while he has had some back pain recently, it's not as bad as it was when he requested a return to PT. Prior Treatments and Tests R TKA Multiple courses of PT Treatment Goals Patient/Caregiver Goals Improve core strength, back mobility, and standing/walking tolerance PT-OP-C Subjective Start: 05/08/21 13:03 Freq: Status: Active Protocol: Document 06/20/21 11:16 DCW (Rec: 06/20/21 11:58 DCW [id number]) OP-PT Subjective Patient Comments Patient Comments I'm doing pretty well today. PT-OP-F Manual Assessment Start: 05/08/21 13:03 Freq: Status: Active Protocol: Document 05/08/21 12:00 DCW (Rec: 05/08/21 13:20 DCW [id number]) Manual Assessments Soft Tissue Assessment Soft Tissue Mobility Assessment Moderate tone along bilateral lumbar paraspinals, left QL, and bilateral posterior hip Joint Mobility Assessment Joint Mobility Assessment Mild hypomobility of lumbar spine, with movement PT-OP-K Range of Motion Start: 05/08/21 13:03 Freq: Status: Active Protocol: Document 05/08/21 12:00 DCW (Rec: 05/08/21 13:20 DCW [id number]) Lumbar Spine Range of Motion Lumbar Spine Active Degrees Testing Position Standing Flexion 65 Extension 15 Lateral Flexion Left 54 Lateral Flexion Right 53 ROM Limitations Soft Tissue Tightness,Bony Restriction,Pain PT-OP-L Special Tests Start: 05/08/21 13:03 Freq: Status: Active Protocol: Document 05/08/21 12:00 DCW (Rec: 05/08/21 13:23 DCW [id number]) Special Tests Lumbar Spine Special Tests Torsion Test Results Negative Vertical Spine Loading Test Results Negative A-P Shearing Test Results Negative Straight Leg Raise Test Results Hamstring stiffness R: 53?, L: 60? Standing Flexion Test Results Stiffness Slump Test Results Negative Passive Neck Flexion Test Results Negative PT-OP-M Strength Start: 05/08/21 13:03 Freq: Status: Active Protocol: Document 05/08/21 12:00 DCW (Rec: 05/08/21 13:23 DCW [id number]) Trunk Strength Trunk Manual Muscle Testing Core Stabilization Good initial TrA contraction, quick fatigue, 4-/5 Hip Strength Hip Manual Muscle Testing Right Flexion (L2) 4 Good Extension (S1) 4- Good- Abduction 4- Good- Adduction 4 Good Left Flexion (L2) 4 Good Extension (S1) 4- Good- Abduction 4- Good- Adduction 4 Good Knee Strength Knee Manual Muscle Testing Right Flexion (S2) 4 Good Extension (L3) 4+ Good+ Left Flexion (S2) 4 Good Extension (L3) 4+ Good+ PT-OP-Q Treatments Start: 05/08/21 13:03 Freq: Status: Active Protocol: Document 06/20/21 11:16 DCW (Rec: 06/20/21 11:57 DCW [id number]) Cardio Equipment Recumbent Elliptical ([employer] Duration (Minutes) 6 Resistance 5 Seat Position 12 Other 742 steps Gym Equipment Cable Column (Body Solid) Pallof Press Resistance 30# Reps/Time x30 Therapeutic Ball Pelvic tilts/circles Exercise Details Pelvic tilts/circles Ball Size/Color Green - 65 cm Body Position Sitting Comments Use mirror for feedback Therapeutic Exercises Supine Exercises 2 Supine Exercise Name Piriformis stretch 1 Supine Exercise Name Hamstring stretch Manual Therapy Treatment Soft Tissue Mobilization 2 Body Location B Piriformis Mobilization Type Sustained Pressure Intensity/Depth Deep Body Position Sidelying 1 Body Location B lumbar paraspinals Mobilization Type Strumming,Sustained Pressure Intensity/Depth Moderate Body Position Sidelying PT-OP-T Assessment and Plan Start: 05/08/21 13:03 Freq: Status: Active Protocol: Document 06/20/21 11:16 DCW (Rec: 06/20/21 11:57 DCW [id number]) Physical Therapy Assessment Impairments Impairments Activity Tolerance,Functional Activities,Functional Mobility ,Pain,Posture,ROM,Soft Tissue Mobility,Strength Goals Three Impairment 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 Physical Therapy Plan Frequency and Duration Frequency of Treatment 2x/Week Duration of Treatment 12 weeks Plan of Care Start Date 05/08/21 Plan of Care End Date 07/31/21 Therapeutic Interventions Therapeutic Interventions Aquatic Therapy,Home Exercise Program,Joint Mobilizations, Manual Therapy,Neuromuscular Re-education,Patient/Caregiver Education,Self-Care/Home Management,Soft Tissue Mobilization,Therapeutic Activities,Therapeutic Exercises Modalities Cold Pack/Ice Massage,Electric Stimulation,Hot Packs Next Visit Focus/Plan Next Note Type Treatment Note Next Visit Plan Core strengthening, lumbar STM , increased activity tolerance
--- NOTE | 2021-06-24 15:14 | PT.OTN ---
Current Diagnoses Stiffness of other specified joint, not elsewhere classified (06/24/21) Spondylosis without myelopathy or radiculopathy, lumbar region (06/24/21) Physical Therapy Treatment Note PT-OP-A Visit Information Start: 05/08/21 13:03 Freq: Status: Active Protocol: Document 06/24/21 14:32 DCW (Rec: 06/24/21 15:14 DCW [id number]) Out-Patient Physical Therapy Visit Information Visit Information Visit Type Treatment Note Visit Start Time 14:32 Visit Stop Time 15:15 Total Visit Minutes 43 Visit Number 10 Number of BRIM POUNCER Visits 0 Evaluation Information Evaluation Date 05/08/21 PT-OP-B Current Condition Start: 05/08/21 13:03 Freq: Status: Active Protocol: Document 05/08/21 12:00 DCW (Rec: 05/08/21 13:20 DCW [id number]) Current Condition History of Current Condition Onset Date Multi-year history Current Complaints Low back pain, difficulty standing History of Current Condition Pt is a 76 year old male very well known to the clinic presenting with a long- standing history of low back pain and stiffness. Pt has underlying condition of psoriatic arthritis, for which he undergoes infusions every 8 weeks. Pt has been seen at this clinic multiple times for this condition, and typically improves fairly well with therapy. Pt's last PT session abruptly ended earlier this year after he broke multiple ribs while working in his yard , but has now returned to continue therapy. Pt had been having some increased pain as well in his right knee, which underwent a TKA two years ago, however he had scheduled a follow-up with his surgeon to discuss the pain, but has been feeling fine now since then. Pt had also recently seen Dr Christopher Adam for an assessment of his back. Pt reports that Dr Adam was trying to talk me into deadening the nerve in my back, but pt feels this is an extreme measure at this time. 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 Pt also notes that walking more than 1000' is about him limit before fatigue or his back starts to bother him. Pt does note that he has actually been feeling better over the past few weeks , so while he has had some back pain recently, it's not as bad as it was when he requested a return to PT. Prior Treatments and Tests R TKA Multiple courses of PT Treatment Goals Patient/Caregiver Goals Improve core strength, back mobility, and standing/walking tolerance PT-OP-C Subjective Start: 05/08/21 13:03 Freq: Status: Active Protocol: Document 06/24/21 14:32 DCW (Rec: 06/24/21 15:14 DCW [id number]) OP-PT Subjective Patient Comments Patient Comments Pt feeling good today, no current complaints of back pain. PT-OP-F Manual Assessment Start: 05/08/21 13:03 Freq: Status: Active Protocol: Document 05/08/21 12:00 DCW (Rec: 05/08/21 13:20 DCW [id number]) Manual Assessments Soft Tissue Assessment Soft Tissue Mobility Assessment Moderate tone along bilateral lumbar paraspinals, left QL, and bilateral posterior hip Joint Mobility Assessment Joint Mobility Assessment Mild hypomobility of lumbar spine, with movement PT-OP-K Range of Motion Start: 05/08/21 13:03 Freq: Status: Active Protocol: Document 05/08/21 12:00 DCW (Rec: 05/08/21 13:20 DCW [id number]) Lumbar Spine Range of Motion Lumbar Spine Active Degrees Testing Position Standing Flexion 65 Extension 15 Lateral Flexion Left 54 Lateral Flexion Right 53 ROM Limitations Soft Tissue Tightness,Bony Restriction,Pain PT-OP-L Special Tests Start: 05/08/21 13:03 Freq: Status: Active Protocol: Document 05/08/21 12:00 DCW (Rec: 05/08/21 13:23 DCW [id number]) Special Tests Lumbar Spine Special Tests Torsion Test Results Negative Vertical Spine Loading Test Results Negative A-P Shearing Test Results Negative Straight Leg Raise Test Results Hamstring stiffness R: 53?, L: 60? Standing Flexion Test Results Stiffness Slump Test Results Negative Passive Neck Flexion Test Results Negative PT-OP-M Strength Start: 05/08/21 13:03 Freq: Status: Active Protocol: Document 05/08/21 12:00 DCW (Rec: 05/08/21 13:23 DCW [id number]) Trunk Strength Trunk Manual Muscle Testing Core Stabilization Good initial TrA contraction, quick fatigue, 4-/5 Hip Strength Hip Manual Muscle Testing Right Flexion (L2) 4 Good Extension (S1) 4- Good- Abduction 4- Good- Adduction 4 Good Left Flexion (L2) 4 Good Extension (S1) 4- Good- Abduction 4- Good- Adduction 4 Good Knee Strength Knee Manual Muscle Testing Right Flexion (S2) 4 Good Extension (L3) 4+ Good+ Left Flexion (S2) 4 Good Extension (L3) 4+ Good+ PT-OP-Q Treatments Start: 05/08/21 13:03 Freq: Status: Active Protocol: Document 06/24/21 14:32 DCW (Rec: 06/24/21 15:14 DCW [id number]) Cardio Equipment Recumbent Elliptical ([employer]) Duration (Minutes) 6 Resistance 5 Seat Position 12 Other 810 steps Gym Equipment Cable Column (Body Solid) Pallof Press Resistance 30# Reps/Time x30 Therapeutic Ball Pelvic tilts/circles Exercise Details Pelvic tilts/circles Ball Size/Color Green - 65 cm Body Position Sitting Comments Use mirror for feedback Therapeutic Exercises Supine Exercises 2 Supine Exercise Name Piriformis stretch 1 Supine Exercise Name Hamstring stretch Manual Therapy Treatment Soft Tissue Mobilization 2 Body Location B Piriformis Mobilization Type Sustained Pressure Intensity/Depth Deep Body Position Sidelying 1 Body Location B lumbar paraspinals Mobilization Type Strumming,Sustained Pressure Intensity/Depth Moderate Body Position Sidelying PT-OP-T Assessment and Plan Start: 05/08/21 13:03 Freq: Status: Active Protocol: Document 06/24/21 14:32 DCW (Rec: 06/24/21 15:14 DCW [id number]) Physical Therapy Assessment Impairments Impairments Activity Tolerance,Functional Activities,Functional Mobility ,Pain,Posture,ROM,Soft Tissue Mobility,Strength Goals Three Impairment 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 Nylon Operator Goal (LTG) 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 shop 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 LTG Duration 07/31/20 Two Impairment Pt unable to walk more than 1000' without sitting and resting Nylon Operator Goal (LTG) Pt to ambulate 1000'+ during 6 MWT with no rest breaks LTG Duration 07/31/21 One Impairment Pt does not have an appropriate home exercise program Short Term Goal (STG) Pt to be independent and compliant with an appropriate HEP STG Duration 06/19/21 Assessment Summary Assessment Pt showing substantial improvement with ease of getting [facility] Physical Therapy Plan Frequency and Duration Frequency of Treatment 2x/Week Duration of Treatment 12 weeks Plan of Care Start Date 05/08/21 Plan of Care End Date 07/31/21 Therapeutic Interventions Therapeutic Interventions Aquatic Therapy,Home Exercise Program,Joint Mobilizations, Manual Therapy,Neuromuscular Re-education,Patient/Caregiver Education,Self-Care/Home Management,Soft Tissue Mobilization,Therapeutic Activities,Therapeutic Exercises Modalities Cold Pack/Ice Massage,Electric Stimulation,Hot Packs Next Visit Focus/Plan Next Note Type Treatment Note Next Visit Plan Core strengthening, lumbar STM , increased activity tolerance
--- NOTE | 2021-06-26 12:01 | PT.OTN ---
Current Diagnoses Stiffness of other specified joint, not elsewhere classified (06/26/21) Spondylosis without myelopathy or radiculopathy, lumbar region (06/26/21) Physical Therapy Treatment Note PT-OP-A Visit Information Start: 05/08/21 13:03 Freq: Status: Active Protocol: Document 06/26/21 11:21 DCW (Rec: 06/26/21 12:01 DCW [id number]) Out-Patient Physical Therapy Visit Information Visit Information Visit Type Treatment Note Visit Start Time Visit Stop Time 12:00 Total Visit Minutes 39 Visit Number 11 Number of ASSISTANT PROFESSOR OF GEOGRAPHY Visits 0 Evaluation Information Evaluation Date 05/08/21 PT-OP-B Current Condition Start: 05/08/21 13:03 Freq: Status: Active Protocol: Document 05/08/21 12:00 DCW (Rec: 05/08/21 13:20 DCW [id number]) Current Condition History of Current Condition Onset Date Multi-year history Current Complaints Low back pain, difficulty standing History of Current Condition Pt is a 76 year old male very well known to the clinic presenting with a long- standing history of low back pain and stiffness. Pt has underlying condition of psoriatic arthritis, for which he undergoes infusions every 8 weeks. Pt has been seen at this clinic multiple times for this condition, and typically improves fairly well with therapy. Pt's last PT session abruptly ended earlier this year after he broke multiple ribs while working in his yard , but has now returned to continue therapy. Pt had been having some increased pain as well in his right knee, which underwent a TKA two years ago, however he had scheduled a follow-up with his surgeon to discuss the pain, but has been feeling fine now since then. Pt had also recently seen Dr Christopher Adam for an assessment of his back. Pt reports that Dr Adam was trying to talk me into deadening the nerve in my back, but pt feels this is an extreme measure at this time. 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 Pt also notes that walking more than 1000' is about him limit before fatigue or his back starts to bother him. Pt does note that he has actually been feeling better over the past few weeks , so while he has had some back pain recently, it's not as bad as it was when he requested a return to PT. Prior Treatments and Tests R TKA Multiple courses of PT Treatment Goals Patient/Caregiver Goals Improve core strength, back mobility, and standing/walking tolerance PT-OP-C Subjective Start: 05/08/21 13:03 Freq: Status: Active Protocol: Document 06/26/21 11:21 DCW (Rec: 06/26/21 12:01 DCW [id number]) OP-PT Subjective Patient Comments Patient Comments Pt doing well, no complaints. PT-OP-F Manual Assessment Start: 05/08/21 13:03 Freq: Status: Active Protocol: Document 05/08/21 12:00 DCW (Rec: 05/08/21 13:20 DCW [id number]) Manual Assessments Soft Tissue Assessment Soft Tissue Mobility Assessment Moderate tone along bilateral lumbar paraspinals, left QL, and bilateral posterior hip Joint Mobility Assessment Joint Mobility Assessment Mild hypomobility of lumbar spine, with movement PT-OP-K Range of Motion Start: 05/08/21 13:03 Freq: Status: Active Protocol: Document 05/08/21 12:00 DCW (Rec: 05/08/21 13:20 DCW [id number]) Lumbar Spine Range of Motion Lumbar Spine Active Degrees Testing Position Standing Flexion 65 Extension 15 Lateral Flexion Left 54 Lateral Flexion Right 53 ROM Limitations Soft Tissue Tightness,Bony Restriction,Pain PT-OP-L Special Tests Start: 05/08/21 13:03 Freq: Status: Active Protocol: Document 05/08/21 12:00 DCW (Rec: 05/08/21 13:23 DCW [id number]) Special Tests Lumbar Spine Special Tests Torsion Test Results Negative Vertical Spine Loading Test Results Negative A-P Shearing Test Results Negative Straight Leg Raise Test Results Hamstring stiffness R: 53?, L: 60? Standing Flexion Test Results Stiffness Slump Test Results Negative Passive Neck Flexion Test Results Negative PT-OP-M Strength Start: 05/08/21 13:03 Freq: Status: Active Protocol: Document 05/08/21 12:00 DCW (Rec: 05/08/21 13:23 DCW [id number]) Trunk Strength Trunk Manual Muscle Testing Core Stabilization Good initial TrA contraction, quick fatigue, 4-/5 Hip Strength Hip Manual Muscle Testing Right Flexion (L2) 4 Good Extension (S1) 4- Good- Abduction 4- Good- Adduction 4 Good Left Flexion (L2) 4 Good Extension (S1) 4- Good- Abduction 4- Good- Adduction 4 Good Knee Strength Knee Manual Muscle Testing Right Flexion (S2) 4 Good Extension (L3) 4+ Good+ Left Flexion (S2) 4 Good Extension (L3) 4+ Good+ PT-OP-Q Treatments Start: 05/08/21 13:03 Freq: Status: Active Protocol: Document 06/26/21 11:21 DCW (Rec: 06/26/21 12:01 DCW [id number]) Cardio Equipment Recumbent Elliptical ([employer]) Duration (Minutes) 6 Resistance 5 Seat Position 12 Other 729 steps Gym Equipment Cable Column (Body Solid) Pallof Press Resistance 30# Reps/Time x30 Therapeutic Ball Pelvic tilts/circles Exercise Details Pelvic tilts/circles Ball Size/Color Green - 65 cm Body Position Sitting Comments Use mirror for feedback Therapeutic Exercises Supine Exercises 2 Supine Exercise Name Piriformis stretch 1 Supine Exercise Name Hamstring stretch Manual Therapy Treatment Soft Tissue Mobilization 2 Body Location B Piriformis Mobilization Type Sustained Pressure Intensity/Depth Deep Body Position Sidelying 1 Body Location B lumbar paraspinals Mobilization Type Strumming,Sustained Pressure Intensity/Depth Moderate Body Position Sidelying PT-OP-T Assessment and Plan Start: 05/08/21 13:03 Freq: Status: Active Protocol: Document 06/26/21 11:21 DCW (Rec: 06/26/21 12:01 DCW [id number]) Physical Therapy Assessment Impairments Impairments Activity Tolerance,Functional Activities,Functional Mobility ,Pain,Posture,ROM,Soft Tissue Mobility,Strength Goals Three Impairment 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 [employer] Try Out Worker Stamping Goal (LTG) 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 Physical Therapy Plan Frequency and Duration Frequency of Treatment 2x/Week Duration of Treatment 12 weeks Plan of Care Start Date 05/08/21 Plan of Care End Date 07/31/21 Therapeutic Interventions Therapeutic Interventions Aquatic Therapy,Home Exercise Program,Joint Mobilizations, Manual Therapy,Neuromuscular Re-education,Patient/Caregiver Education,Self-Care/Home Management,Soft Tissue Mobilization,Therapeutic Activities,Therapeutic Exercises Modalities Cold Pack/Ice Massage,Electric Stimulation,Hot Packs Next Visit Focus/Plan Next Note Type Treatment Note Next Visit Plan Core strengthening, lumbar STM , increased activity tolerance
--- NOTE | 2021-07-03 11:56 | PT.OTN ---
Current Diagnoses Stiffness of other specified joint, not elsewhere classified (07/03/21) Spondylosis without myelopathy or radiculopathy, lumbar region (07/03/21) Physical Therapy Treatment Note PT-OP-A Visit Information Start: 05/08/21 13:03 Freq: Status: Active Protocol: Document 07/03/21 11:15 DCW (Rec: 07/03/21 11:56 DCW [id number]) Out-Patient Physical Therapy Visit Information Visit Information Visit Type Treatment Note Visit Start Time 11:15 Visit Stop Time 12:00 Total Visit Minutes 45 Visit Number 12 Number of ALIGNING CHECKER Visits 0 Evaluation Information Evaluation Date 05/08/21 PT-OP-B Current Condition Start: 05/08/21 13:03 Freq: Status: Active Protocol: Document 05/08/21 12:00 DCW (Rec: 05/08/21 13:20 DCW [id number]) Current Condition History of Current Condition Onset Date Multi-year history Current Complaints Low back pain, difficulty standing History of Current Condition Pt is a 76 year old male very well known to the clinic presenting with a long- standing history of low back pain and stiffness. Pt has underlying condition of psoriatic arthritis, for which he undergoes infusions every 8 weeks. Pt has been seen at this clinic multiple times for this condition, and typically improves fairly well with therapy. Pt's last PT session abruptly ended earlier this year after he broke multiple ribs while working in his yard , but has now returned to continue therapy. Pt had been having some increased pain as well in his right knee, which underwent a TKA two years ago, however he had scheduled a follow-up with his surgeon to discuss the pain, but has been feeling fine now since then. Pt had also recently seen Dr Christopher Adam for an assessment of his back. Pt reports that Dr Adam was trying to talk me into deadening the nerve in my back, but pt feels this is an extreme measure at this time. 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 Pt also notes that walking more than 1000' is about him limit before fatigue or his back starts to bother him. Pt does note that he has actually been feeling better over the past few weeks , so while he has had some back pain recently, it's not as bad as it was when he requested a return to PT. Prior Treatments and Tests R TKA Multiple courses of PT Treatment Goals Patient/Caregiver Goals Improve core strength, back mobility, and standing/walking tolerance PT-OP-C Subjective Start: 05/08/21 13:03 Freq: Status: Active Protocol: Document 07/03/21 11:15 DCW (Rec: 07/03/21 11:56 DCW [id number]) OP-PT Subjective Patient Comments Patient Comments Pt notes he is moving well today. PT-OP-F Manual Assessment Start: 05/08/21 13:03 Freq: Status: Active Protocol: Document 05/08/21 12:00 DCW (Rec: 05/08/21 13:20 DCW [id number]) Manual Assessments Soft Tissue Assessment Soft Tissue Mobility Assessment Moderate tone along bilateral lumbar paraspinals, left QL, and bilateral posterior hip Joint Mobility Assessment Joint Mobility Assessment Mild hypomobility of lumbar spine, with movement PT-OP-K Range of Motion Start: 05/08/21 13:03 Freq: Status: Active Protocol: Document 05/08/21 12:00 DCW (Rec: 05/08/21 13:20 DCW [id number]) Lumbar Spine Range of Motion Lumbar Spine Active Degrees Testing Position Standing Flexion 65 Extension 15 Lateral Flexion Left 54 Lateral Flexion Right 53 ROM Limitations Soft Tissue Tightness,Bony Restriction,Pain PT-OP-L Special Tests Start: 05/08/21 13:03 Freq: Status: Active Protocol: Document 05/08/21 12:00 DCW (Rec: 05/08/21 13:23 DCW [id number]) Special Tests Lumbar Spine Special Tests Torsion Test Results Negative Vertical Spine Loading Test Results Negative A-P Shearing Test Results Negative Straight Leg Raise Test Results Hamstring stiffness R: 53?, L: 60? Standing Flexion Test Results Stiffness Slump Test Results Negative Passive Neck Flexion Test Results Negative PT-OP-M Strength Start: 05/08/21 13:03 Freq: Status: Active Protocol: Document 05/08/21 12:00 DCW (Rec: 05/08/21 13:23 DCW [id number]) Trunk Strength Trunk Manual Muscle Testing Core Stabilization Good initial TrA contraction, quick fatigue, 4-/5 Hip Strength Hip Manual Muscle Testing Right Flexion (L2) 4 Good Extension (S1) 4- Good- Abduction 4- Good- Adduction 4 Good Left Flexion (L2) 4 Good Extension (S1) 4- Good- Abduction 4- Good- Adduction 4 Good Knee Strength Knee Manual Muscle Testing Right Flexion (S2) 4 Good Extension (L3) 4+ Good+ Left Flexion (S2) 4 Good Extension (L3) 4+ Good+ PT-OP-Q Treatments Start: 05/08/21 13:03 Freq: Status: Active Protocol: Document 07/03/21 11:15 DCW (Rec: 07/03/21 11:56 DCW [id number]) Cardio Equipment Recumbent Elliptical (BiodYES.TAP) Duration (Minutes) 6 Resistance 6 Seat Position 13 Other 716 steps Gym Equipment Cable Column (Body Solid) Pallof Press Resistance 30# Reps/Time x30 Therapeutic Ball Pelvic tilts/circles Exercise Details Pelvic tilts/circles Ball Size/Color Green - 65 cm Body Position Sitting Comments Use mirror for feedback Therapeutic Exercises Supine Exercises 2 Supine Exercise Name Piriformis stretch 1 Supine Exercise Name Hamstring stretch Manual Therapy Treatment Soft Tissue Mobilization 2 Body Location B Piriformis Mobilization Type Sustained Pressure Intensity/Depth Deep Body Position Sidelying 1 Body Location B lumbar paraspinals Mobilization Type Strumming,Sustained Pressure Intensity/Depth Moderate Body Position Sidelying PT-OP-T Assessment and Plan Start: 05/08/21 13:03 Freq: Status: Active Protocol: Document 07/03/21 11:15 DCW (Rec: 07/03/21 11:56 WYW [id number]) Physical Therapy Assessment Impairments Impairments Activity Tolerance,Functional Activities,Functional Mobility ,Pain,Posture,ROM,Soft Tissue Mobility,Strength Goals Three Impairment 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 Physical Therapy Plan Frequency and Duration Frequency of Treatment 2x/Week Duration of Treatment 12 weeks Plan of Care Start Date 05/08/21 Plan of Care End Date 07/31/21 Therapeutic Interventions Therapeutic Interventions Aquatic Therapy,Home Exercise Program,Joint Mobilizations, Manual Therapy,Neuromuscular Re-education,Patient/Caregiver Education,Self-Care/Home Management,Soft Tissue Mobilization,Therapeutic Activities,Therapeutic Exercises Modalities Cold Pack/Ice Massage,Electric Stimulation,Hot Packs Next Visit Focus/Plan Next Note Type Treatment Note Next Visit Plan Core strengthening, lumbar STM , increased activity tolerance
--- NOTE | 2021-07-08 11:16 | PT.OTN ---
Current Diagnoses Stiffness of other specified joint, not elsewhere classified (07/08/21) Spondylosis without myelopathy or radiculopathy, lumbar region (07/08/21) Physical Therapy Treatment Note PT-OP-A Visit Information Start: 05/08/21 13:03 Freq: Status: Active Protocol: Document 07/08/21 10:31 DCW (Rec: 07/08/21 11:16 DCW [id number]) Out-Patient Physical Therapy Visit Information Visit Information Visit Type Treatment Note Visit Start Time 10:31 Visit Stop Time 11:15 Total Visit Minutes 44 Visit Number 13 Number of SENIOR PAYROLL ADMINISTRATOR Visits 0 Evaluation Information Evaluation Date 05/08/21 PT-OP-B Current Condition Start: 05/08/21 13:03 Freq: Status: Active Protocol: Document 05/08/21 12:00 DCW (Rec: 05/08/21 13:20 DCW [id number]) Current Condition History of Current Condition Onset Date Multi-year history Current Complaints Low back pain, difficulty standing History of Current Condition Pt is a 76 year old male very well known to the clinic presenting with a long- standing history of low back pain and stiffness. Pt has underlying condition of psoriatic arthritis, for which he undergoes infusions every 8 weeks. Pt has been seen at this clinic multiple times for this condition, and typically improves fairly well with therapy. Pt's last PT session abruptly ended earlier this year after he broke multiple ribs while working in his yard , but has now returned to continue therapy. Pt had been having some increased pain as well in his right knee, which underwent a TKA two years ago, however he had scheduled a follow-up with his surgeon to discuss the pain, but has been feeling fine now since then. Pt had also recently seen Dr Christopher Adam for an assessment of his back. Pt reports that Dr Adam was trying to talk me into deadening the nerve in my back, but pt feels this is an extreme measure at this time. 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 Pt also notes that walking more than 1000' is about him limit before fatigue or his back starts to bother him. Pt does note that he has actually been feeling better over the past few weeks , so while he has had some back pain recently, it's not as bad as it was when he requested a return to PT. Prior Treatments and Tests R TKA Multiple courses of PT Treatment Goals Patient/Caregiver Goals Improve core strength, back mobility, and standing/walking tolerance PT-OP-C Subjective Start: 05/08/21 13:03 Freq: Status: Active Protocol: Document 07/08/21 10:31 DCW (Rec: 07/08/21 11:16 DCW [id number]) OP-PT Subjective Patient Comments Patient Comments I have been feeling pretty good the past few weeks, I wonder how much this has to do with it. PT-OP-F Manual Assessment Start: 05/08/21 13:03 Freq: Status: Active Protocol: Document 05/08/21 12:00 DCW (Rec: 05/08/21 13:20 DCW [id number]) Manual Assessments Soft Tissue Assessment Soft Tissue Mobility Assessment Moderate tone along bilateral lumbar paraspinals, left QL, and bilateral posterior hip Joint Mobility Assessment Joint Mobility Assessment Mild hypomobility of lumbar spine, with movement PT-OP-K Range of Motion Start: 05/08/21 13:03 Freq: Status: Active Protocol: Document 05/08/21 12:00 DCW (Rec: 05/08/21 13:20 DCW [id number]) Lumbar Spine Range of Motion Lumbar Spine Active Degrees Testing Position Standing Flexion 65 Extension 15 Lateral Flexion Left 54 Lateral Flexion Right 53 ROM Limitations Soft Tissue Tightness,Bony Restriction,Pain PT-OP-L Special Tests Start: 05/08/21 13:03 Freq: Status: Active Protocol: Document 05/08/21 12:00 DCW (Rec: 05/08/21 13:23 DCW [id number]) Special Tests Lumbar Spine Special Tests Torsion Test Results Negative Vertical Spine Loading Test Results Negative A-P Shearing Test Results Negative Straight Leg Raise Test Results Hamstring stiffness R: 53?, L: 60? Standing Flexion Test Results Stiffness Slump Test Results Negative Passive Neck Flexion Test Results Negative PT-OP-M Strength Start: 05/08/21 13:03 Freq: Status: Active Protocol: Document 05/08/21 12:00 DCW (Rec: 05/08/21 13:23 DCW [id number]) Trunk Strength Trunk Manual Muscle Testing Core Stabilization Good initial TrA contraction, quick fatigue, 4-/5 Hip Strength Hip Manual Muscle Testing Right Flexion (L2) 4 Good Extension (S1) 4- Good- Abduction 4- Good- Adduction 4 Good Left Flexion (L2) 4 Good Extension (S1) 4- Good- Abduction 4- Good- Adduction 4 Good Knee Strength Knee Manual Muscle Testing Right Flexion (S2) 4 Good Extension (L3) 4+ Good+ Left Flexion (S2) 4 Good Extension (L3) 4+ Good+ PT-OP-Q Treatments Start: 05/08/21 13:03 Freq: Status: Active Protocol: Document 07/08/21 10:31 DCW (Rec: 07/08/21 11:16 [facility] [id number]) Cardio Equipment Recumbent Elliptical (Theralogix) Duration (Minutes) 6 Resistance 6 Seat Position 13 Other 876 steps Gym Equipment Cable Column (Body Solid) Pallof Press Resistance 30# Reps/Time x30 Therapeutic Ball Pelvic tilts/circles Exercise Details Pelvic tilts/circles Ball Size/Color Green - 65 cm Body Position Sitting Comments Use mirror for feedback Therapeutic Exercises Supine Exercises 2 Supine Exercise Name Piriformis stretch 1 Supine Exercise Name Hamstring stretch Manual Therapy Treatment Soft Tissue Mobilization 2 Body Location B Piriformis Mobilization Type Sustained Pressure Intensity/Depth Deep Body Position Sidelying 1 Body Location B lumbar paraspinals Mobilization Type Strumming,Sustained Pressure Intensity/Depth Moderate Body Position Sidelying PT-OP-T Assessment and Plan Start: 05/08/21 13:03 Freq: Status: Active Protocol: Document 07/08/21 10:31 DCW (Rec: 07/08/21 11:16 [facility] [id number]) Physical Therapy Assessment Impairments Impairments Activity Tolerance,Functional Activities,Functional Mobility ,Pain,Posture,ROM,Soft Tissue Mobility,Strength Goals Three Impairment 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 Director Of Sustainability Programs Goal (LTG) 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 Physical Therapy Plan Frequency and Duration Frequency of Treatment 2x/Week Duration of Treatment 12 weeks Plan of Care Start Date 05/08/21 Plan of Care End Date 07/31/21 Therapeutic Interventions Therapeutic Interventions Aquatic Therapy,Home Exercise Program,Joint Mobilizations, Manual Therapy,Neuromuscular Re-education,Patient/Caregiver Education,Self-Care/Home Management,Soft Tissue Mobilization,Therapeutic Activities,Therapeutic Exercises Modalities Cold Pack/Ice Massage,Electric Stimulation,Hot Packs Next Visit Focus/Plan Next Note Type Treatment Note Next Visit Plan Core strengthening, lumbar STM , increased activity tolerance
--- NOTE | 2021-07-11 11:16 | PT.OTN ---
Current Diagnoses Stiffness of other specified joint, not elsewhere classified (07/11/21) Spondylosis without myelopathy or radiculopathy, lumbar region (07/11/21) Physical Therapy Treatment Note PT-OP-A Visit Information Start: 05/08/21 13:03 Freq: Status: Active Protocol: Document 07/11/21 10:30 DCW (Rec: 07/11/21 11:16 DCW [id number]) Out-Patient Physical Therapy Visit Information Visit Information Visit Type Treatment Note Visit Start Time 10:30 Visit Stop Time 11:15 Total Visit Minutes 45 Visit Number 14 Number of COMMISSIONED DEFENCE FORCE OFFICER Visits 0 Evaluation Information Evaluation Date 05/08/21 PT-OP-B Current Condition Start: 05/08/21 13:03 Freq: Status: Active Protocol: Document 05/08/21 12:00 DCW (Rec: 05/08/21 13:20 DCW [id number]) Current Condition History of Current Condition Onset Date Multi-year history Current Complaints Low back pain, difficulty standing History of Current Condition Pt is a 76 year old male very well known to the clinic presenting with a long- standing history of low back pain and stiffness. Pt has underlying condition of psoriatic arthritis, for which he undergoes infusions every 8 weeks. Pt has been seen at this clinic multiple times for this condition, and typically improves fairly well with therapy. Pt's last PT session abruptly ended earlier this year after he broke multiple ribs while working in his yard , but has now returned to continue therapy. Pt had been having some increased pain as well in his right knee, which underwent a TKA two years ago, however he had scheduled a follow-up with his surgeon to discuss the pain, but has been feeling fine now since then. Pt had also recently seen Dr Christopher Adam for an assessment of his back. Pt reports that Dr Adam was trying to talk me into deadening the nerve in my back, but pt feels this is an extreme measure at this time. 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 Pt also notes that walking more than 1000' is about him limit before fatigue or his back starts to bother him. Pt does note that he has actually been feeling better over the past few weeks , so while he has had some back pain recently, it's not as bad as it was when he requested a return to PT. Prior Treatments and Tests R TKA Multiple courses of PT Treatment Goals Patient/Caregiver Goals Improve core strength, back mobility, and standing/walking tolerance PT-OP-C Subjective Start: 05/08/21 13:03 Freq: Status: Active Protocol: Document 07/11/21 10:30 DCW (Rec: 07/11/21 11:16 DCW [id number]) OP-PT Subjective Patient Comments Patient Comments Pt feeling good today PT-OP-F Manual Assessment Start: 05/08/21 13:03 Freq: Status: Active Protocol: Document 05/08/21 12:00 DCW (Rec: 05/08/21 13:20 DCW [id number]) Manual Assessments Soft Tissue Assessment Soft Tissue Mobility Assessment Moderate tone along bilateral lumbar paraspinals, left QL, and bilateral posterior hip Joint Mobility Assessment Joint Mobility Assessment Mild hypomobility of lumbar spine, with movement PT-OP-K Range of Motion Start: 05/08/21 13:03 Freq: Status: Active Protocol: Document 05/08/21 12:00 DCW (Rec: 05/08/21 13:20 DCW [id number]) Lumbar Spine Range of Motion Lumbar Spine Active Degrees Testing Position Standing Flexion 65 Extension 15 Lateral Flexion Left 54 Lateral Flexion Right 53 ROM Limitations Soft Tissue Tightness,Bony Restriction,Pain PT-OP-L Special Tests Start: 05/08/21 13:03 Freq: Status: Active Protocol: Document 05/08/21 12:00 DCW (Rec: 05/08/21 13:23 DCW [id number]) Special Tests Lumbar Spine Special Tests Torsion Test Results Negative Vertical Spine Loading Test Results Negative A-P Shearing Test Results Negative Straight Leg Raise Test Results Hamstring stiffness R: 53?, L: 60? Standing Flexion Test Results Stiffness Slump Test Results Negative Passive Neck Flexion Test Results Negative PT-OP-M Strength Start: 05/08/21 13:03 Freq: Status: Active Protocol: Document 05/08/21 12:00 DCW (Rec: 05/08/21 13:23 DCW [id number]) Trunk Strength Trunk Manual Muscle Testing Core Stabilization Good initial TrA contraction, quick fatigue, 4-/5 Hip Strength Hip Manual Muscle Testing Right Flexion (L2) 4 Good Extension (S1) 4- Good- Abduction 4- Good- Adduction 4 Good Left Flexion (L2) 4 Good Extension (S1) 4- Good- Abduction 4- Good- Adduction 4 Good Knee Strength Knee Manual Muscle Testing Right Flexion (S2) 4 Good Extension (L3) 4+ Good+ Left Flexion (S2) 4 Good Extension (L3) 4+ Good+ PT-OP-Q Treatments Start: 05/08/21 13:03 Freq: Status: Active Protocol: Document 07/11/21 10:30 DCW (Rec: 07/11/21 11:16 DCW [id number]) Cardio Equipment Recumbent Elliptical (Biodex) Duration (Minutes) 6 Resistance 6 Seat Position 13 Other 694 steps Gym Equipment Cable Column (Body Solid) Pallof Press Resistance 30# Reps/Time x30 Therapeutic Ball Pelvic tilts/circles Exercise Details Pelvic tilts/circles Ball Size/Color Green - 65 cm Body Position Sitting Comments Use mirror for feedback Therapeutic Exercises Supine Exercises 2 Supine Exercise Name Piriformis stretch 1 Supine Exercise Name Hamstring stretch Manual Therapy Treatment Soft Tissue Mobilization 2 Body Location B Piriformis Mobilization Type Sustained Pressure Intensity/Depth Deep Body Position Sidelying 1 Body Location B lumbar paraspinals Mobilization Type Strumming,Sustained Pressure Intensity/Depth Moderate Body Position Sidelying PT-OP-T Assessment and Plan Start: 05/08/21 13:03 Freq: Status: Active Protocol: Document 07/11/21 10:30 DCW (Rec: 07/11/21 11:16 DCW [id number]) Physical Therapy Assessment Impairments Impairments Activity Tolerance,Functional Activities,Functional Mobility ,Pain,Posture,ROM,Soft Tissue Mobility,Strength Goals Three Impairment 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 Physical Therapy Plan Frequency and Duration Frequency of Treatment 2x/Week Duration of Treatment 12 weeks Plan of Care Start Date 05/08/21 Plan of Care End Date 07/31/21 Therapeutic Interventions Therapeutic Interventions Aquatic Therapy,Home Exercise Program,Joint Mobilizations, Manual Therapy,Neuromuscular Re-education,Patient/Caregiver Education,Self-Care/Home Management,Soft Tissue Mobilization,Therapeutic Activities,Therapeutic Exercises Modalities Cold Pack/Ice Massage,Electric Stimulation,Hot Packs Next Visit Focus/Plan Next Note Type Treatment Note Next Visit Plan Core strengthening, lumbar STM , increased activity tolerance
--- NOTE | 2021-07-18 11:13 | PT.OTN ---
Current Diagnoses Stiffness of other specified joint, not elsewhere classified (07/18/21) Spondylosis without myelopathy or radiculopathy, lumbar region (07/18/21) Physical Therapy Treatment Note PT-OP-A Visit Information Start: 05/08/21 13:03 Freq: Status: Active Protocol: Document 07/18/21 10:30 DCW (Rec: 07/18/21 11:13 DCW [id number]) Out-Patient Physical Therapy Visit Information Visit Information Visit Type Treatment Note Visit Start Time 10:30 Visit Stop Time 11:15 Total Visit Minutes 45 Visit Number 15 Number of CORE ASSEMBLY SUPERVISOR Visits 0 Evaluation Information Evaluation Date 05/08/21 PT-OP-B Current Condition Start: 05/08/21 13:03 Freq: Status: Active Protocol: Document 05/08/21 12:00 DCW (Rec: 05/08/21 13:20 DCW [id number]) Current Condition History of Current Condition Onset Date Multi-year history Current Complaints Low back pain, difficulty standing History of Current Condition Pt is a 76 year old male very well known to the clinic presenting with a long- standing history of low back pain and stiffness. Pt has underlying condition of psoriatic arthritis, for which he undergoes infusions every 8 weeks. Pt has been seen at this clinic multiple times for this condition, and typically improves fairly well with therapy. Pt's last PT session abruptly ended earlier this year after he broke multiple ribs while working in his yard , but has now returned to continue therapy. Pt had been having some increased pain as well in his right knee, which underwent a TKA two years ago, however he had scheduled a follow-up with his surgeon to discuss the pain, but has been feeling fine now since then. Pt had also recently seen Dr Christopher Adam for an assessment of his back. Pt reports that Dr Adam was trying to talk me into deadening the nerve in my back, but pt feels this is an extreme measure at this time. 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 Pt also notes that walking more than 1000' is about him limit before fatigue or his back starts to bother him. Pt does note that he has actually been feeling better over the past few weeks , so while he has had some back pain recently, it's not as bad as it was when he requested a return to PT. Prior Treatments and Tests R TKA Multiple courses of PT Treatment Goals Patient/Caregiver Goals Improve core strength, back mobility, and standing/walking tolerance PT-OP-C Subjective Start: 05/08/21 13:03 Freq: Status: Active Protocol: Document 07/18/21 10:30 DCW (Rec: 07/18/21 11:13 DCW [id number]) OP-PT Subjective Patient Comments Patient Comments Pt reports his ability to walk an increased distance hasn't changed all that much, so that's somewhat restrictive, but his back is still doing well. PT-OP-F Manual Assessment Start: 05/08/21 13:03 Freq: Status: Active Protocol: Document 05/08/21 12:00 DCW (Rec: 05/08/21 13:20 DCW [id number]) Manual Assessments Soft Tissue Assessment Soft Tissue Mobility Assessment Moderate tone along bilateral lumbar paraspinals, left QL, and bilateral posterior hip Joint Mobility Assessment Joint Mobility Assessment Mild hypomobility of lumbar spine, with movement PT-OP-K Range of Motion Start: 05/08/21 13:03 Freq: Status: Active Protocol: Document 05/08/21 12:00 DCW (Rec: 05/08/21 13:20 DCW [id number]) Lumbar Spine Range of Motion Lumbar Spine Active Degrees Testing Position Standing Flexion 65 Extension 15 Lateral Flexion Left 54 Lateral Flexion Right 53 ROM Limitations Soft Tissue Tightness,Bony Restriction,Pain PT-OP-L Special Tests Start: 05/08/21 13:03 Freq: Status: Active Protocol: Document 05/08/21 12:00 DCW (Rec: 05/08/21 13:23 DCW [id number]) Special Tests Lumbar Spine Special Tests Torsion Test Results Negative Vertical Spine Loading Test Results Negative A-P Shearing Test Results Negative Straight Leg Raise Test Results Hamstring stiffness R: 53?, L: 60? Standing Flexion Test Results Stiffness Slump Test Results Negative Passive Neck Flexion Test Results Negative PT-OP-M Strength Start: 05/08/21 13:03 Freq: Status: Active Protocol: Document 05/08/21 12:00 DCW (Rec: 05/08/21 13:23 DCW [id number]) Trunk Strength Trunk Manual Muscle Testing Core Stabilization Good initial TrA contraction, quick fatigue, 4-/5 Hip Strength Hip Manual Muscle Testing Right Flexion (L2) 4 Good Extension (S1) 4- Good- Abduction 4- Good- Adduction 4 Good Left Flexion (L2) 4 Good Extension (S1) 4- Good- Abduction 4- Good- Adduction 4 Good Knee Strength Knee Manual Muscle Testing Right Flexion (S2) 4 Good Extension (L3) 4+ Good+ Left Flexion (S2) 4 Good Extension (L3) 4+ Good+ PT-OP-Q Treatments Start: 05/08/21 13:03 Freq: Status: Active Protocol: Document 07/18/21 10:30 DCW (Rec: 07/18/21 11:13 DCW [id number]) Cardio Equipment Recumbent Stepper (Sci-Fit) Duration (Minutes) 6 Resistance 3 Seat Position 15 Other distance 1.08 Gym Equipment Cable Column (Body Solid) Pallof Press Resistance 30# Reps/Time x30 Therapeutic Ball Pelvic tilts/circles Exercise Details Pelvic tilts/circles Ball Size/Color Green - 65 cm Body Position Sitting Comments Use mirror for feedback Therapeutic Exercises Supine Exercises 2 Supine Exercise Name Piriformis stretch 1 Supine Exercise Name Hamstring stretch Manual Therapy Treatment Soft Tissue Mobilization 2 Body Location B Piriformis Mobilization Type Sustained Pressure Intensity/Depth Deep Body Position Sidelying 1 Body Location B lumbar paraspinals Mobilization Type Strumming,Sustained Pressure Intensity/Depth Moderate Body Position Sidelying PT-OP-T Assessment and Plan Start: 05/08/21 13:03 Freq: Status: Active Protocol: Document 07/18/21 10:30 DCW (Rec: 07/18/21 11:13 DCW [id number]) Physical Therapy Assessment Impairments Impairments Activity Tolerance,Functional Activities,Functional Mobility ,Pain,Posture,ROM,Soft Tissue Mobility,Strength Goals Three Impairment 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 Access Services Representative Goal (LTG) 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 shop 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 LTG Duration 07/31/20 Two Impairment Pt unable to walk more than 1000' without sitting and resting Access Services Representative Goal (LTG) Pt to ambulate 1000'+ during 6 MWT with no rest breaks LTG Duration 07/31/21 One Impairment Pt does not have an appropriate home exercise program Short Term Goal (STG) Pt to be independent and compliant with an appropriate HEP STG Duration 06/19/21 Assessment Summary Assessment Pt has continued complaints of difficulty walking extended distance, however his back has been feeling much better, obvious improvement with mobility and improved pain levels. Physical Therapy Plan Frequency and Duration Frequency of Treatment 2x/Week Duration of Treatment 12 weeks Plan of Care Start Date 05/08/21 Plan of Care End Date 07/31/21 Therapeutic Interventions Therapeutic Interventions Aquatic Therapy,Home Exercise Program,Joint Mobilizations, Manual Therapy,Neuromuscular Re-education,Patient/Caregiver Education,Self-Care/Home Management,Soft Tissue Mobilization,Therapeutic Activities,Therapeutic Exercises Modalities Cold Pack/Ice Massage,Electric Stimulation,Hot Packs Next Visit Focus/Plan Next Note Type Treatment Note Next Visit Plan Core strengthening, lumbar STM , increased activity tolerance
--- NOTE | 2021-07-22 11:13 | PT.OTN ---
Current Diagnoses Stiffness of other specified joint, not elsewhere classified (07/22/21) Spondylosis without myelopathy or radiculopathy, lumbar region (07/22/21) Physical Therapy Treatment Note PT-OP-A Visit Information Start: 05/08/21 13:03 Freq: Status: Active Protocol: Document 07/22/21 10:30 DCW (Rec: 07/22/21 11:13 DCW [id number]) Out-Patient Physical Therapy Visit Information Visit Information Visit Type Treatment Note Visit Start Time 10:30 Visit Stop Time 11:15 Total Visit Minutes 45 Visit Number 16 Number of STEEL ENGRAVER Visits 0 Evaluation Information Evaluation Date 05/08/21 PT-OP-B Current Condition Start: 05/08/21 13:03 Freq: Status: Active Protocol: Document 05/08/21 12:00 DCW (Rec: 05/08/21 13:20 DCW [id number]) Current Condition History of Current Condition Onset Date Multi-year history Current Complaints Low back pain, difficulty standing History of Current Condition Pt is a 76 year old male very well known to the clinic presenting with a long- standing history of low back pain and stiffness. Pt has underlying condition of psoriatic arthritis, for which he undergoes infusions every 8 weeks. Pt has been seen at this clinic multiple times for this condition, and typically improves fairly well with therapy. Pt's last PT session abruptly ended earlier this year after he broke multiple ribs while working in his yard , but has now returned to continue therapy. Pt had been having some increased pain as well in his right knee, which underwent a TKA two years ago, however he had scheduled a follow-up with his surgeon to discuss the pain, but has been feeling fine now since then. Pt had also recently seen Dr Christopher Adam for an assessment of his back. Pt reports that Dr Adam was trying to talk me into deadening the nerve in my back, but pt feels this is an extreme measure at this time. 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 Pt also notes that walking more than 1000' is about him limit before fatigue or his back starts to bother him. Pt does note that he has actually been feeling better over the past few weeks , so while he has had some back pain recently, it's not as bad as it was when he requested a return to PT. Prior Treatments and Tests R TKA Multiple courses of PT Treatment Goals Patient/Caregiver Goals Improve core strength, back mobility, and standing/walking tolerance PT-OP-C Subjective Start: 05/08/21 13:03 Freq: Status: Active Protocol: Document 07/22/21 10:30 DCW (Rec: 07/22/21 11:13 DCW [id number]) OP-PT Subjective Patient Comments Patient Comments Pt notes he is okay today PT-OP-F Manual Assessment Start: 05/08/21 13:03 Freq: Status: Active Protocol: Document 05/08/21 12:00 DCW (Rec: 05/08/21 13:20 DCW [id number]) Manual Assessments Soft Tissue Assessment Soft Tissue Mobility Assessment Moderate tone along bilateral lumbar paraspinals, left QL, and bilateral posterior hip Joint Mobility Assessment Joint Mobility Assessment Mild hypomobility of lumbar spine, with movement PT-OP-K Range of Motion Start: 05/08/21 13:03 Freq: Status: Active Protocol: Document 05/08/21 12:00 DCW (Rec: 05/08/21 13:20 DCW [id number]) Lumbar Spine Range of Motion Lumbar Spine Active Degrees Testing Position Standing Flexion 65 Extension 15 Lateral Flexion Left 54 Lateral Flexion Right 53 ROM Limitations Soft Tissue Tightness,Bony Restriction,Pain PT-OP-L Special Tests Start: 05/08/21 13:03 Freq: Status: Active Protocol: Document 05/08/21 12:00 DCW (Rec: 05/08/21 13:23 DCW [id number]) Special Tests Lumbar Spine Special Tests Torsion Test Results Negative Vertical Spine Loading Test Results Negative A-P Shearing Test Results Negative Straight Leg Raise Test Results Hamstring stiffness R: 53?, L: 60? Standing Flexion Test Results Stiffness Slump Test Results Negative Passive Neck Flexion Test Results Negative PT-OP-M Strength Start: 05/08/21 13:03 Freq: Status: Active Protocol: Document 05/08/21 12:00 DCW (Rec: 05/08/21 13:23 DCW [id number]) Trunk Strength Trunk Manual Muscle Testing Core Stabilization Good initial TrA contraction, quick fatigue, 4-/5 Hip Strength Hip Manual Muscle Testing Right Flexion (L2) 4 Good Extension (S1) 4- Good- Abduction 4- Good- Adduction 4 Good Left Flexion (L2) 4 Good Extension (S1) 4- Good- Abduction 4- Good- Adduction 4 Good Knee Strength Knee Manual Muscle Testing Right Flexion (S2) 4 Good Extension (L3) 4+ Good+ Left Flexion (S2) 4 Good Extension (L3) 4+ Good+ PT-OP-Q Treatments Start: 05/08/21 13:03 Freq: Status: Active Protocol: Document 07/22/21 10:30 DCW (Rec: 07/22/21 11:13 DCW [id number]) Cardio Equipment Recumbent Elliptical (Biodex) Duration (Minutes) 6 Resistance 6 Seat Position 14 Other 703 steps Gym Equipment Therapeutic Ball Pelvic tilts/circles Exercise Details Pelvic tilts/circles Ball Size/Color Green - 65 cm Body Position Sitting Comments Use mirror for feedback Therapeutic Exercises Supine Exercises 2 Supine Exercise Name Piriformis stretch 1 Supine Exercise Name Hamstring stretch Manual Therapy Treatment Soft Tissue Mobilization 2 Body Location B Piriformis Mobilization Type Sustained Pressure Intensity/Depth Deep Body Position Sidelying 1 Body Location B lumbar paraspinals Mobilization Type Strumming,Sustained Pressure Intensity/Depth Moderate Body Position Sidelying PT-OP-T Assessment and Plan Start: 05/08/21 13:03 Freq: Status: Active Protocol: Document 07/22/21 10:30 DCW (Rec: 07/22/21 11:13 DCW [id number]) Physical Therapy Assessment Impairments Impairments Activity Tolerance,Functional Activities,Functional Mobility ,Pain,Posture,ROM,Soft Tissue Mobility,Strength Goals Three Impairment 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 Shelter Goal (LTG) 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 Physical Therapy Plan Frequency and Duration Frequency of Treatment 2x/Week Duration of Treatment 12 weeks Plan of Care Start Date 05/08/21 Plan of Care End Date 07/31/21 Therapeutic Interventions Therapeutic Interventions Aquatic Therapy,Home Exercise Program,Joint Mobilizations, Manual Therapy,Neuromuscular Re-education,Patient/Caregiver Education,Self-Care/Home Management,Soft Tissue Mobilization,Therapeutic Activities,Therapeutic Exercises Modalities Cold Pack/Ice Massage,Electric Stimulation,Hot Packs Next Visit Focus/Plan Next Note Type Treatment Note Next Visit Plan Core strengthening, lumbar STM , increased activity tolerance
--- NOTE | 2021-07-25 11:26 | PT.OTN ---
Current Diagnoses Stiffness of other specified joint, not elsewhere classified (07/25/21) Spondylosis without myelopathy or radiculopathy, lumbar region (07/25/21) Physical Therapy Treatment Note PT-OP-A Visit Information Start: 05/08/21 13:03 Freq: Status: Active Protocol: Document 07/25/21 10:30 DCW (Rec: 07/25/21 11:25 DCW [id number]) Out-Patient Physical Therapy Visit Information Visit Information Visit Type Treatment Note Visit Start Time 10:30 Visit Stop Time 11:15 Total Visit Minutes 45 Visit Number 17 Number of SEARCH ENGINE OPTIMIZATION CONSULTANT Visits 0 Evaluation Information Evaluation Date 05/08/21 PT-OP-B Current Condition Start: 05/08/21 13:03 Freq: Status: Active Protocol: Document 05/08/21 12:00 DCW (Rec: 05/08/21 13:20 DCW [id number]) Current Condition History of Current Condition Onset Date Multi-year history Current Complaints Low back pain, difficulty standing History of Current Condition Pt is a 76 year old male very well known to the clinic presenting with a long- standing history of low back pain and stiffness. Pt has underlying condition of psoriatic arthritis, for which he undergoes infusions every 8 weeks. Pt has been seen at this clinic multiple times for this condition, and typically improves fairly well with therapy. Pt's last PT session abruptly ended earlier this year after he broke multiple ribs while working in his yard , but has now returned to continue therapy. Pt had been having some increased pain as well in his right knee, which underwent a TKA two years ago, however he had scheduled a follow-up with his surgeon to discuss the pain, but has been feeling fine now since then. Pt had also recently seen Dr Christopher Adam for an assessment of his back. Pt reports that Dr Adam was trying to talk me into deadening the nerve in my back, but pt feels this is an extreme measure at this time. 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 Pt also notes that walking more than 1000' is about him limit before fatigue or his back starts to bother him. Pt does note that he has actually been feeling better over the past few weeks , so while he has had some back pain recently, it's not as bad as it was when he requested a return to PT. Prior Treatments and Tests R TKA Multiple courses of PT Treatment Goals Patient/Caregiver Goals Improve core strength, back mobility, and standing/walking tolerance PT-OP-C Subjective Start: 05/08/21 13:03 Freq: Status: Active Protocol: Document 07/25/21 10:30 DCW (Rec: 07/25/21 11:25 DCW [id number]) OP-PT Subjective Patient Comments Patient Comments Pt notes he is doing pretty well today. PT-OP-F Manual Assessment Start: 05/08/21 13:03 Freq: Status: Active Protocol: Document 05/08/21 12:00 DCW (Rec: 05/08/21 13:20 DCW [id number]) Manual Assessments Soft Tissue Assessment Soft Tissue Mobility Assessment Moderate tone along bilateral lumbar paraspinals, left QL, and bilateral posterior hip Joint Mobility Assessment Joint Mobility Assessment Mild hypomobility of lumbar spine, with movement PT-OP-K Range of Motion Start: 05/08/21 13:03 Freq: Status: Active Protocol: Document 05/08/21 12:00 DCW (Rec: 05/08/21 13:20 DCW [id number]) Lumbar Spine Range of Motion Lumbar Spine Active Degrees Testing Position Standing Flexion 65 Extension 15 Lateral Flexion Left 54 Lateral Flexion Right 53 ROM Limitations Soft Tissue Tightness,Bony Restriction,Pain PT-OP-L Special Tests Start: 05/08/21 13:03 Freq: Status: Active Protocol: Document 05/08/21 12:00 DCW (Rec: 05/08/21 13:23 DCW [id number]) Special Tests Lumbar Spine Special Tests Torsion Test Results Negative Vertical Spine Loading Test Results Negative A-P Shearing Test Results Negative Straight Leg Raise Test Results Hamstring stiffness R: 53?, L: 60? Standing Flexion Test Results Stiffness Slump Test Results Negative Passive Neck Flexion Test Results Negative PT-OP-M Strength Start: 05/08/21 13:03 Freq: Status: Active Protocol: Document 05/08/21 12:00 DCW (Rec: 05/08/21 13:23 DCW [id number]) Trunk Strength Trunk Manual Muscle Testing Core Stabilization Good initial TrA contraction, quick fatigue, 4-/5 Hip Strength Hip Manual Muscle Testing Right Flexion (L2) 4 Good Extension (S1) 4- Good- Abduction 4- Good- Adduction 4 Good Left Flexion (L2) 4 Good Extension (S1) 4- Good- Abduction 4- Good- Adduction 4 Good Knee Strength Knee Manual Muscle Testing Right Flexion (S2) 4 Good Extension (L3) 4+ Good+ Left Flexion (S2) 4 Good Extension (L3) 4+ Good+ PT-OP-Q Treatments Start: 05/08/21 13:03 Freq: Status: Active Protocol: Document 07/25/21 10:30 DCW (Rec: 07/25/21 11:25 DCW [id number]) Cardio Equipment Recumbent Elliptical ([employer]Watson Brown) Duration (Minutes) 6 Resistance 6 Seat Position 14 Other 777 steps Gym Equipment Cable Column (Body Solid) Pallof Press Resistance 30# Reps/Time x30 Therapeutic Ball Pelvic tilts/circles Exercise Details Pelvic tilts/circles Ball Size/Color Green - 65 cm Body Position Sitting Comments Use mirror for feedback Therapeutic Exercises Supine Exercises 2 Supine Exercise Name Piriformis stretch 1 Supine Exercise Name Hamstring stretch Manual Therapy Treatment Soft Tissue Mobilization 2 Body Location B Piriformis Mobilization Type Sustained Pressure Intensity/Depth Deep Body Position Sidelying 1 Body Location B lumbar paraspinals Mobilization Type Strumming,Sustained Pressure Intensity/Depth Moderate Body Position Sidelying PT-OP-T Assessment and Plan Start: 05/08/21 13:03 Freq: Status: Active Protocol: Document 07/25/21 10:30 DCW (Rec: 07/25/21 11:25 DCW [id number]) Physical Therapy Assessment Impairments Impairments Activity Tolerance,Functional Activities,Functional Mobility ,Pain,Posture,ROM,Soft Tissue Mobility,Strength Goals Three Impairment 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 Physical Therapy Plan Frequency and Duration Frequency of Treatment 2x/Week Duration of Treatment 12 weeks Plan of Care Start Date 05/08/21 Plan of Care End Date 07/31/21 Therapeutic Interventions Therapeutic Interventions Aquatic Therapy,Home Exercise Program,Joint Mobilizations, Manual Therapy,Neuromuscular Re-education,Patient/Caregiver Education,Self-Care/Home Management,Soft Tissue Mobilization,Therapeutic Activities,Therapeutic Exercises Modalities Cold Pack/Ice Massage,Electric Stimulation,Hot Packs Next Visit Focus/Plan Next Note Type Treatment Note Next Visit Plan Core strengthening, lumbar STM , increased activity tolerance
--- NOTE | 2021-07-29 11:24 | PT.OTN ---
Current Diagnoses Stiffness of other specified joint, not elsewhere classified (07/29/21) Spondylosis without myelopathy or radiculopathy, lumbar region (07/29/21) Physical Therapy Treatment Note PT-OP-A Visit Information Start: 05/08/21 13:03 Freq: Status: Active Protocol: Document 07/29/21 10:30 DCW (Rec: 07/29/21 11:24 DCW [id number]) Out-Patient Physical Therapy Visit Information Visit Information Visit Type Discharge Summary Visit Start Time 10:30 Visit Stop Time 11:15 Total Visit Minutes 45 Visit Number 18 Number of MANAGEMENT REP Visits 0 Evaluation Information Evaluation Date 05/08/21 PT-OP-B Current Condition Start: 05/08/21 13:03 Freq: Status: Active Protocol: Document 05/08/21 12:00 DCW (Rec: 05/08/21 13:20 DCW [id number]) Current Condition History of Current Condition Onset Date Multi-year history Current Complaints Low back pain, difficulty standing History of Current Condition Pt is a 76 year old male very well known to the clinic presenting with a long- standing history of low back pain and stiffness. Pt has underlying condition of psoriatic arthritis, for which he undergoes infusions every 8 weeks. Pt has been seen at this clinic multiple times for this condition, and typically improves fairly well with therapy. Pt's last PT session abruptly ended earlier this year after he broke multiple ribs while working in his yard , but has now returned to continue therapy. Pt had been having some increased pain as well in his right knee, which underwent a TKA two years ago, however he had scheduled a follow-up with his surgeon to discuss the pain, but has been feeling fine now since then. Pt had also recently seen Dr Christopher Adam for an assessment of his back. Pt reports that Dr Adam was trying to talk me into deadening the nerve in my back, but pt feels this is an extreme measure at this time. 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 Pt also notes that walking more than 1000' is about him limit before fatigue or his back starts to bother him. Pt does note that he has actually been feeling better over the past few weeks , so while he has had some back pain recently, it's not as bad as it was when he requested a return to PT. Prior Treatments and Tests R TKA Multiple courses of PT Treatment Goals Patient/Caregiver Goals Improve core strength, back mobility, and standing/walking tolerance PT-OP-C Subjective Start: 05/08/21 13:03 Freq: Status: Active Protocol: Document 07/29/21 10:30 DCW (Rec: 07/29/21 11:24 DCW [id number]) OP-PT Subjective Patient Comments Patient Comments Pt still concerned about his endurance while walking, would like to get out walking more, but feels his back pain is still a limiting factor. PT-OP-F Manual Assessment Start: 05/08/21 13:03 Freq: Status: Active Protocol: Document 07/29/21 10:30 DCW (Rec: 07/29/21 10:55 DCW [id number]) Manual Assessments Soft Tissue Assessment Soft Tissue Mobility Assessment Mild tone along bilateral lumbar paraspinals, left QL, and bilateral posterior hip Joint Mobility Assessment Joint Mobility Assessment Mild hypomobility of lumbar spine, with movement PT-OP-G Mobility & Gait Start: 07/29/21 10:55 Freq: Status: Active Protocol: Document 07/29/21 10:30 DCW (Rec: 07/29/21 11:04 DCW [id number]) OP Gait Assessment Comments Gait Comments Pt ambulates 1000' in 3:48 minutes, reports of feeling winded, notes his back tightened up a bit. PT-OP-K Range of Motion Start: 05/08/21 13:03 Freq: Status: Active Protocol: Document 07/29/21 10:30 DCW (Rec: 07/29/21 10:55 DCW [id number]) Lumbar Spine Range of Motion Lumbar Spine Active Degrees Flexion 70 Extension 25 Lateral Flexion Left 52 Lateral Flexion Right 53 ROM Limitations Soft Tissue Tightness PT-OP-L Special Tests Start: 05/08/21 13:03 Freq: Status: Active Protocol: Document 07/29/21 10:30 DCW (Rec: 07/29/21 10:55 DCW [id number]) Special Tests Lumbar Spine Special Tests Torsion Test Results Negative Vertical Spine Loading Test Results Negative A-P Shearing Test Results Negative Straight Leg Raise Test Results Hamstring stiffness B: 60? Standing Flexion Test Results Negative Slump Test Results Negative Passive Neck Flexion Test Results Negative PT-OP-M Strength Start: 05/08/21 13:03 Freq: Status: Active Protocol: Document 07/29/21 10:30 DCW (Rec: 07/29/21 10:55 DCW [id number]) Hip Strength Hip Manual Muscle Testing Right Flexion (L2) 4+ Good+ Extension (S1) 4+ Good+ Abduction 5 Normal Adduction 5 Normal Left Flexion (L2) 4+ Good+ Extension (S1) 4+ Good+ Abduction 5 Normal Adduction 5 Normal Knee Strength Knee Manual Muscle Testing Right Flexion (S2) 5 Normal Extension (L3) 5 Normal Left Flexion (S2) 4+ Good+ Extension (L3) 5 Normal PT-OP-Q Treatments Start: 05/08/21 13:03 Freq: Status: Active Protocol: Document 07/29/21 10:30 DCW (Rec: 07/29/21 11:24 DCW [id number]) Manual Therapy Treatment Other Other Manual Treatments Testing PT-OP-T Assessment and Plan Start: 05/08/21 13:03 Freq: Status: Active Protocol: Document 07/29/21 10:30 DCW (Rec: 07/29/21 11:24 DCW [id number]) Physical Therapy Assessment Impairments Impairments Activity Tolerance,Functional Activities,Functional Mobility ,Pain,Posture,ROM,Soft Tissue Mobility,Strength Goals Three Impairment 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 Ventilator Specialist Goal (LTG) 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 shop 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 LTG Duration 07/31/20 Two Impairment Pt unable to walk more than 1000' without sitting and resting Ventilator Specialist Goal (LTG) Pt to ambulate 1000'+ during 6 MWT with no rest breaks LTG Duration Met One Impairment Pt does not have an appropriate home exercise program Short Term Goal (STG) Pt to be independent and compliant with an appropriate HEP STG Duration Met Assessment Summary Assessment Pt has improved in all tested areas, however his initial complaints of back pain limiting his walking ability, which in turn limits his endurance, is still a major complaint. Agrees to return to referring physician to discuss alternative treatments . Will be discharged from skilled therapy at this time. Physical Therapy Plan Frequency and Duration Frequency of Treatment 2x/Week Duration of Treatment 12 weeks Plan of Care Start Date 05/08/21 Plan of Care End Date 07/31/21 Therapeutic Interventions Therapeutic Interventions Aquatic Therapy,Home Exercise Program,Joint Mobilizations, Manual Therapy,Neuromuscular Re-education,Patient/Caregiver Education,Self-Care/Home Management,Soft Tissue Mobilization,Therapeutic Activities,Therapeutic Exercises Modalities Cold Pack/Ice Massage,Electric Stimulation,Hot Packs Discharge Physical Therapy Discharge Reasons No Longer Attending PT Next Visit Focus/Plan Next Note Type Discharge Summary
== END 2021-07-30 09:28 | disposition home or self-care (01) ==
LOC: PHYS 10:30
PROVIDERS: PCP Internal Medicine; Referring Provider Physical Medicine & Rehabilitation; Visit Provider Physical Medicine & Rehabilitation
DX: M47.816 Spondylosis without myelopathy or radiculopathy, lumbar region (principal); M25.69 Stiffness of other specified joint, not elsewhere classified
CPT/HCPCS: 97110; 97140; 97162

== ENCOUNTER 2022-05-20 15:07 | Day surgery (SDC) | payer MEDICARE, OTHER, SELFPAY ==
[2018-09-06 16:27] VITALS: BMI 31.1
[2022-05-20] VITALS (27 sets, daily range): BP systolic 111–158; BP diastolic 53–91; PULSE 62–109; RESP 10–25; TEMP 36.6–37.2; O2SAT 94–100; BMI 33.5
--- NOTE | 2022-05-20 | DI.RAD.S_ITS ---
PROCEDURE: XR KNEE LT 1TO2V INDICATIONS: LEFT KNEE DISLOCATION TECHNIQUE: 1 views of the knee were acquired. COMPARISON: [facility], , XR KNEE LT 3V, 05/20/2022, 15:36. FINDINGS: Single intraoperative fluoroscopic view of the left knee demonstrates improved alignment status post reduction of the previously visualized posterior dislocation of the left knee. A left knee prosthesis is redemonstrated. IMPRESSION: 1. Interval reduction of left knee dislocation. Dictated by: Prince Hernandez M.D. on 05/21/2022 at 3:06 Approved by: Prince Hernandez M.D. on 05/21/2022 at 3:08
--- NOTE | 2022-05-20 15:29 | DI.RAD.S_ITS ---
PROCEDURE: XR KNEE LT 3V INDICATIONS: limited rom TECHNIQUE: 3 views of the knee were acquired. COMPARISON: [facility], CR, XR KNEE 1 OR 2 VIEWS LEFT, 05/01/2022, 15:41. [facility], CR, XR KNEE RT 1TO2V, 09/06/2018, 16:07. FINDINGS: Limited examination due to difficulty with patient positioning. Prior left hip arthroplasty. Hardware appears intact. No definite acute fracture visualized. No definite joint effusion. Probable prepatellar soft tissue swelling. Vascular calcifications are present. IMPRESSION: Limited examination due to difficulty with patient positioning. Postsurgical changes from left knee arthroplasty. No acute fracture identified. Possible anterior subluxation of the femur relative to the tibia. If symptoms persist, follow-up radiographs and/or CT may be helpful for further evaluation. Dictated by: Bharath May M.D. on 05/20/2022 at 16:29 Approved by: Bharath May M.D. on 05/20/2022 at 16:36
--- NOTE | 2022-05-20 16:35 | ED_ITS ---
HPI - Extremity Injury (Lower) <Breonna Hess, [facility] - Last Filed: 05/20/22 20:09> General Chief Complaint: Extremity Injury, Lower Stated Complaint: left artificial knee locked up at 90 degree Time Seen by Provider: 05/20/22 16:13 Source: patient Mode of arrival: Ambulatory History of Present Illness HPI Narrative: This is a 77-year-old male with history of left total knee replacement 12 years ago, and a right total knee replacement by Dr. Anna a couple years ago. Patient presents today for left knee impingement in a flexed position with concern for dislocation and mechanical failure of his arthroplasty. His left knee is a [employer] joint replacement and states that 1 month ago he had an episode of his left knee getting a in a 90 degree position and was evaluated at [facility] in the emergency department and was discharged home. He states that his left knee had been manipulated and thinks that the pin projecting superiorly that arthroplasty guides through is broken off or missing. He feels like it is stuck in this position and due to a mechanical cause, he endorses having muscle spasms to his left thigh last night, states that his pain is quite significant. Patient is anticoagulated on Xarelto for a history of atrial fibrillation. He has a history of psoriatic arthritis and is treated for this with methotrexate and infliximab. Patient states that he went to pull his sock up last night with his knee in a flexed position and when he pulled, he felt his knee go thunk and states he was not able to extend it. Passive extension causes pain and feels mechanically obstructed. Related Data Home Medications Medication Instructions Recorded Confirmed atorvastatin 10 mg tablet 10 mg PO DAILY 02/05/18 09/02/18 bupropion HCl 150 mg 24 hr tablet, 150 mg PO DAILY 02/05/18 09/02/18 extended release diethylpropion 25 mg tablet 25 mg PO TID increase BP 02/05/18 09/02/18 gabapentin 300 mg capsule 600 mg PO BEDTIME 02/05/18 09/02/18 methotrexate sodium 2.5 mg tablet 7.5 mg PO SEEINSTR 02/05/18 09/02/18 metoprolol succinate 50 mg 25 mg PO BID 02/05/18 05/20/22 tablet,extended release 24 hr fluoxetine 20 mg capsule 20 mg PO DAILY 09/02/18 09/02/18 vardenafil 20 mg tablet 20 mg PO DAILY PRN Sexual Activity 09/02/18 09/02/18 Previous Rx's Medication Instructions Recorded rivaroxaban 20 mg tablet (Xarelto) 20 mg PO DAILY #30 tabs 02/07/18 acetaminophen 325 mg tablet 975 mg PO TID #0 tabs 09/07/18 docusate sodium 100 mg capsule 100 mg PO BID #0 caps 09/07/18 hydroxyzine pamoate 25 mg capsule 25 mg PO Q4HR PRN Muscle Spasm #0 09/07/18 caps oxycodone 5 mg tablet 5 mg PO Q4-6H PRN Pain, Moderate 09/07/18 (4-6) #0 tabs hydrocodone 5 mg-acetaminophen 325 1 tab PO Q6H PRN pain #20 tabs 02/03/ mg tablet Allergies Allergy/AdvReac Type Severity Reaction Status Date / Time No Known Drug Allergies Allergy Verified 09/06/18 12:49 Review of Systems <SOL Garcia - Last Filed: 05/20/22 20:09> Review of Systems Narrative: Review of systems is negative for acute abnormalities unless otherwise noted in HPI Patient History <SOL Garcia - Last Filed: 05/20/22 20:09> Medical History Alcoholism Anxiety Atrophic gastritis Chronic low back pain Cyst in hand (~2019) Depression Diverticulosis Dizziness Erectile dysfunction History of colon polyps HTN (hypertension) Hydronephrosis Hyperlipidemia Insomnia Ischemia Nephrolithiasis YAIMA on CPAP Osteoarthritis Paroxysmal atrial fibrillation Paroxysmal atrial flutter Prediabetes Psoriasis Psoriatic arthritis Psoriatic arthropathy Retroperitoneal mass RLS (restless legs syndrome) Sinus congestion Syncope Testosterone deficiency Vitamin D deficiency Surgical History History of total left knee replacement (TKR) Hx of lithotripsy Family History Father No problems noted. Mother No problems noted. Brother No problems noted. Sister No problems noted. Social History household members: spouse Smoking Status: Never smoker alcohol intake: current Smoking Status: Never smoker alcohol intake frequency: 0-2 drinks per day Substance Use Type: does not use Exam <SOL Gacria - Last Filed: 05/20/22 20:09> Narrative Exam Narrative: Reviewed vitals signs and nursing notes. General: cooperative, comfortable, in no acute distress, well groomed HEENT: symmetrical facial expressions, moist mucous membranes Cardiovascular: regular rate and rhythm, no peripheral edema, warm extremities Respiratory: normal effort, able to speak in complete sentences, without wheezing, stridor, or abnormal breath sounds. No retractions or tachypnea. MSK: moves all extremities, neurovascularly intact bilateral lower extremities, left knee is flexed in a 90 degree position, it feels mechanically stuck, not able to push pass this point, only tension in his soft tissue is his left IT band, he has a large suprapatellar effusion, without wound, PT and DP pulses are 2+ in his lower extremity. No exquisite tenderness over MCL, LCL, fluid wave is present, fluctuance is present, likely hemarthrosis versus effusion with concern for arthroplasty failure/problem no surrounding erythema or ecchymosis, no quadriceps spasm Skin: brisk capillary refill, without pallor or erythema Neuro: normal speech and cognition, A&O x3, ambulatory, clear speech Psych: mental status is grossly normal, congruent mood, normal affect, pleasant and cooperative Initial Vital Signs Initial Vital Signs: Vital Signs Temperature 97.8 F 05/20/22 15:25 Pulse Rate 75 05/20/22 15:25 Respiratory Rate 18 05/20/22 15:25 Blood Pressure 149/72 H 05/20/22 15:25 Pulse Oximetry 100 05/20/22 15:25 Oxygen Delivery Method 05/20/22 15:25 <Alberto Chiu DO - Last Filed: 05/24/22 07:17> Initial Vital Signs Initial Vital Signs: Vital Signs Temperature 97.8 F 05/20/22 15:25 Pulse Rate 75 05/20/22 15:25 Respiratory Rate 18 05/20/22 15:25 Blood Pressure 149/72 H 05/20/22 15:25 Pulse Oximetry 100 05/20/22 15:25 Oxygen Delivery Method 05/20/22 15:25 Course <SOL Garcia - Last Filed: 05/20/22 20:09> Orders Ordered: Discontinued Medications Hydromorphone HCl (Hydromorphone 0.5 Mg Inj) 0.5 mg IV NOW ONE Stop: 05/20/22 17:59 Last Admin: 05/20/22 18:05 Dose: 0.5 mg Documented By: DINO Lactated Ringer's (Lactated Ringers) 1,000 mls @ 42 mls/hr IV NOW ONE Stop: 05/21/22 20:10 Last Infusion: 05/20/22 21:48 Dose: 0 mls/hr Documented By: Admin: 05/20/22 20:24 Dose: 42 mls/hr Documented By: AK Lactated Ringer's (Lactated Ringers) 1,000 mls @ 120 mls/hr IV CONT ERIC Methocarbamol (Methocarbamol 500 Mg Tablet) 500 mg PO NOW ONE Stop: 05/20/22 16:35 Last Admin: 05/20/22 16:57 Dose: 500 mg Documented By: BALJIT Oxycodone HCl (Oxycodone Ir 5 Mg Tablet) 5 mg PO PACUNOW PRN PRN Reason: Mild or moderate pain Oxycodone/Acetaminophen (Oxycodone/Acetaminophen 5/325 Tablet) 1 tab PO NOW ONE Stop: 05/20/22 16:35 Last Admin: 05/20/22 16:57 Dose: 1 tab Documented By: BALJIT Oxycodone/Acetaminophen (Oxycodone/Acetaminophen 5/325 Tablet) 1 tab PO PACUNOW PRN PRN Reason: Mild or Moderate Pain Consultations Consultation #1: Consultation with Dr. Anna who is busy seeing patients in clinic currently, we will call back when she is able Consultation #2: Dr. Anna is at the bedside and planning OR fixation. Vital Signs Vital signs: Vital Signs - 8 hr 05/20/22 15:25 05/20/22 16:24 05/20/22 16:24 Temperature 97.8 F Pulse Rate 75 78 Respiratory Rate 18 Blood Pressure 149/72 H 143/75 H Pulse Oximetry 100 99 Oxygen Delivery Method Room Air 05/20/22 16:30 05/20/22 16:30 05/20/22 17:00 Temperature Pulse Rate 72 Respiratory Rate Blood Pressure 157/82 H 154/73 H Pulse Oximetry 100 Oxygen Delivery Method 05/20/22 17:00 05/20/22 17:30 05/20/22 17:31 Temperature Pulse Rate 74 67 Respiratory Rate Blood Pressure 125/68 Pulse Oximetry 99 98 Oxygen Delivery Method 05/20/22 17:31 05/20/22 18:07 05/20/22 18:09 Temperature Pulse Rate 70 72 Respiratory Rate Blood Pressure 150/74 H Pulse Oximetry 97 100 Oxygen Delivery Method 05/20/22 18:09 05/20/22 18:10 05/20/22 18:10 Temperature Pulse Rate 71 72 Respiratory Rate Blood Pressure 158/74 H Pulse Oximetry 99 99 Oxygen Delivery Method 05/20/22 18:15 05/20/22 18:15 05/20/22 18:20 Temperature Pulse Rate 74 69 Respiratory Rate Blood Pressure 150/82 H Pulse Oximetry 98 98 Oxygen Delivery Method 05/20/22 18:20 05/20/22 18:26 05/20/22 18:26 Temperature Pulse Rate 68 Respiratory Rate Blood Pressure 150/78 H 158/72 H Pulse Oximetry 98 Oxygen Delivery Method 05/20/22 18:30 05/20/22 18:30 05/20/22 18:35 Temperature Pulse Rate 67 Respiratory Rate Blood Pressure 138/68 135/70 Pulse Oximetry 96 Oxygen Delivery Method 05/20/22 18:35 05/20/22 18:40 05/20/22 18:40 Temperature Pulse Rate 65 71 Respiratory Rate Blood Pressure 150/79 H Pulse Oximetry 94 95 Oxygen Delivery Method 05/20/22 18:45 05/20/22 18:45 05/20/22 18:50 Temperature Pulse Rate 66 Respiratory Rate Blood Pressure 134/72 138/81 Pulse Oximetry 96 Oxygen Delivery Method 05/20/22 18:50 05/20/22 19:00 05/20/22 19:00 Temperature Pulse Rate 64 70 Respiratory Rate Blood Pressure 146/71 H Pulse Oximetry 94 95 Oxygen Delivery Method <Alberto Chiu, DO - Last Filed: 05/24/22 07:17> Orders Ordered: Discontinued Medications Hydromorphone HCl (Hydromorphone 0.5 Mg Inj) 0.5 mg IV NOW ONE Stop: 05/20/22 17:59 Last Admin: 05/20/22 18:05 Dose: 0.5 mg Documented By: RB Lactated Ringer's (Lactated Ringers) 1,000 mls @ 42 mls/hr IV NOW ONE Stop: 05/21/22 20:10 Last Infusion: 05/20/22 21:48 Dose: 0 mls/hr Documented By: Admin: 05/20/22 20:24 Dose: 42 mls/hr Documented By: LIZ Lactated Ringer's (Lactated Ringers) 1,000 mls @ 120 mls/hr IV CONT ERIC Methocarbamol (Methocarbamol 500 Mg Tablet) 500 mg PO NOW ONE Stop: 05/20/22 16:35 Last Admin: 05/20/22 16:57 Dose: 500 mg Documented By: BALJIT Oxycodone HCl (Oxycodone Ir 5 Mg Tablet) 5 mg PO PACUNOW PRN PRN Reason: Mild or moderate pain Oxycodone/Acetaminophen (Oxycodone/Acetaminophen 5/325 Tablet) 1 tab PO NOW ONE Stop: 05/20/22 16:35 Last Admin: 05/20/22 16:57 Dose: 1 tab Documented By: BALJIT Oxycodone/Acetaminophen (Oxycodone/Acetaminophen 5/325 Tablet) 1 tab PO PACUNOW PRN PRN Reason: Mild or Moderate Pain Vital Signs Vital signs: Vital Signs - 8 hr 05/20/22 15:25 05/20/22 16:24 05/20/22 16:24 Temperature 97.8 F Pulse Rate 75 78 Respiratory Rate 18 Blood Pressure 149/72 H 143/75 H Pulse Oximetry 100 99 Oxygen Delivery Method Room Air 05/20/22 16:30 05/20/22 16:30 05/20/22 17:00 Temperature Pulse Rate 72 Respiratory Rate Blood Pressure 157/82 H 154/73 H Pulse Oximetry 100 Oxygen Delivery Method 05/20/22 17:00 05/20/22 17:30 05/20/22 17:31 Temperature Pulse Rate 74 67 Respiratory Rate Blood Pressure 125/68 Pulse Oximetry 99 98 Oxygen Delivery Method 05/20/22 17:31 05/20/22 18:07 05/20/22 18:09 Temperature Pulse Rate 70 72 Respiratory Rate Blood Pressure 150/74 H Pulse Oximetry 97 100 Oxygen Delivery Method 05/20/22 18:09 05/20/22 18:10 05/20/22 18:10 Temperature Pulse Rate 71 72 Respiratory Rate Blood Pressure 158/74 H Pulse Oximetry 99 99 Oxygen Delivery Method 05/20/22 18:15 05/20/22 18:15 05/20/22 18:20 Temperature Pulse Rate 74 69 Respiratory Rate Blood Pressure 150/82 H Pulse Oximetry 98 98 Oxygen Delivery Method 05/20/22 18:20 05/20/22 18:26 05/20/22 18:26 Temperature Pulse Rate 68 Respiratory Rate Blood Pressure 150/78 H 158/72 H Pulse Oximetry 98 Oxygen Delivery Method 05/20/22 18:30 05/20/22 18:30 05/20/22 18:35 Temperature Pulse Rate 67 Respiratory Rate Blood Pressure 138/68 135/70 Pulse Oximetry 96 Oxygen Delivery Method 05/20/22 18:35 05/20/22 18:40 05/20/22 18:40 Temperature Pulse Rate 65 71 Respiratory Rate Blood Pressure 150/79 H Pulse Oximetry 94 95 Oxygen Delivery Method 05/20/22 18:45 05/20/22 18:45 05/20/22 18:50 Temperature Pulse Rate 66 Respiratory Rate Blood Pressure 134/72 138/81 Pulse Oximetry 96 Oxygen Delivery Method 05/20/22 18:50 05/20/22 19:00 05/20/22 19:00 Temperature Pulse Rate 64 70 Respiratory Rate Blood Pressure 146/71 H Pulse Oximetry 94 95 Oxygen Delivery Method MDM - Extremity Injury (Lower) <Breonna Hess, [facility] - Last Filed: 05/20/22 20:09> Lab Data Result diagrams: 05/20/22 17:00 05/20/22 17:00 Labs: Lab Results 05/20/22 05/20/22 05/20/22 Range/Units 17:00 17:00 17:00 WBC 7.6 (4.5-11.0) X10^3/uL RBC 4.79 (4.5-5.9) X10^6/uL Hgb 12.3 L (13.5-17.5) g/dL Hct 38.5 L (41-53) % MCV 80.3 (80-100) fL MCH 25.8 L (26-34) PG MCHC 32.1 (30-36) % RDW 22.9 H (11.6-14.8) % Plt Count 222 (150-400) X10^3/uL Neut % (Auto) 60.8 (50-75) % Lymph % (Auto) 27.8 (25-40) % [place] % (Auto) 6.0 (3-14) % Eos % (Auto) 4.8 H (2-4) % Baso % (Auto) 0.6 (0-2) % Neut # (Auto) 4700 (1373-6751) /uL Lymph # (Auto) 2100 (3918-5896) /uL [place] # (Auto) 500 (0-900) /uL Eos # (Auto) 400 (0-450) /uL Baso # (Auto) 0 (0-100) /uL RBC Morphology See below Poikilocytosis 1+ H Anisocytosis 2+ H PT 17.3 H (10.1-12.7) SECONDS INR 1.5 H (0.9-1.3) APTT 86 H* (26-36) SECONDS Sodium 139 (137-145) mmol/L Potassium 4.4 (3.4-5.1) mmol/L Chloride 105 (98-107) mmol/L Carbon Dioxide 26 (22-32) mmol/L BUN 24 H (9-20) mg/dL Creatinine 1.00 (0.66-1.25) mg/dL Estimated GFR > 60 (>60) mL/min BUN/Creatinine Ratio 24.0 H (6-22) Glucose 88 (80-110) mg/dL Calcium 9.0 (8.4-10.2) mg/dL Total Bilirubin 0.7 (0.2-1.3) mg/dL AST 43 (17-59) IU/L ALT 41 (<50) IU/L Alkaline Phosphatase 88 (38-126) U/L Total Protein 8.3 H (6.3-8.2) g/dL Albumin 4.5 (3.5-5.0) g/dL Globulin 3.8 (1.7-4.1) g/dL Albumin/Globulin Ratio 1.2 (1.0-2.8) SARS-CoV-2 (PCR) (Negative) 05/20/22 Range/Units 19:00 WBC (4.5-11.0) X10^3/uL RBC (4.5-5.9) X10^6/uL Hgb (13.5-17.5) g/dL Hct (41-53) % MCV (80-100) fL MCH (26-34) PG MCHC (30-36) % RDW (11.6-14.8) % Plt Count (150-400) X10^3/uL Neut % (Auto) (50-75) % Lymph % (Auto) (25-40) % [place] % (Auto) (3-14) % Eos % (Auto) (2-4) % Baso % (Auto) (0-2) % Neut # (Auto) (1017-6579) /uL Lymph # (Auto) (2570-2859) /uL [place] # (Auto) (0-900) /uL Eos # (Auto) (0-450) /uL Baso # (Auto) (0-100) /uL RBC Morphology Poikilocytosis Anisocytosis PT (10.1-12.7) SECONDS INR (0.9-1.3) APTT (26-36) SECONDS Sodium (137-145) mmol/L Potassium (3.4-5.1) mmol/L Chloride (98-107) mmol/L Carbon Dioxide (22-32) mmol/L BUN (9-20) mg/dL Creatinine (0.66-1.25) mg/dL Estimated GFR (>60) mL/min BUN/Creatinine Ratio (6-22) Glucose (80-110) mg/dL Calcium (8.4-10.2) mg/dL Total Bilirubin (0.2-1.3) mg/dL AST (17-59) IU/L ALT (<50) IU/L Alkaline Phosphatase (38-126) U/L Total Protein (6.3-8.2) g/dL Albumin (3.5-5.0) g/dL Globulin (1.7-4.1) g/dL Albumin/Globulin Ratio (1.0-2.8) SARS-CoV-2 (PCR) Negative (Negative) Urine Dip Bedside Urine Glucose Negative Bedside Urine Bilirubin - Negative Bedside Urine Ketone - Negative Urine Specific [place] 1.025 Bedside Urine Occult Blood - Negative Bedside Urine pH 6.0 Bedside Urine Protein - Negative Bedside Urine Urobilinogen - Negative Bedside Urine Nitrite - Negative Bedside Urine Leukocytes - Negative Esterase Imaging Data Extremity x-ray #1: Radiologist's Impression: PROCEDURE:? XR KNEE LT 3V ? INDICATIONS:? limited rom ? TECHNIQUE:? 3 views of the knee were acquired.? ? COMPARISON:? [facility], CR, XR KNEE 1 OR 2 VIEWS LEFT, 05/01/2022, 15:41.? [facility], CR, XR KNEE RT 1TO2V, 09/06/2018, 16:07. ? FINDINGS:? ? Limited examination due to difficulty with patient positioning.? Prior left hip arthroplasty.? Hardware appears intact.? No definite acute fracture visualized.? No definite joint effusion.? Probable prepatellar soft tissue swelling.? Vascular calcifications are present. ? ? IMPRESSION:? Limited examination due to difficulty with patient positioning.? Postsurgical changes from left knee arthroplasty.? No acute fracture identified.? Possible anterior subluxation of the femur relative to the tibia. ? If symptoms persist, follow-up radiographs and/or CT may be helpful for further evaluation.? ? ? Dictated by: Bharath May M.D. on 05/20/2022 at 16:29 ? ? Approved by: Bharath May M.D. on 05/20/2022 at 16:36 ? MDM Narrative Medical decision making narrative: This is a 77-year-old male who presents emergency department with concern about hardware failure to his left knee and or dislocation related to hardware failure. Patient's left knee is stuck in a 90 degree flexed position, x-ray of his left knee shows postsurgical changes from left knee arthroplasty, no acute fracture identified, possible anterior subluxation of the femur relative to the tibia. Consultation with Dr. Anna who states that patient does not need the CT, she will come and see him in the emergency department. Dr. Anna came in saw the patient in the emergency department, opted to take him to the operating room for fixation of his left arthroplasty mechanical failure. Lab work was obtained prior to him going to the operating room, patient was found to have elevated INR at 1.5, PT of 17.3, PTT is critically high at 86. Patient is anticoagulated on Xarelto, this can cause some elevation of this PTT. CBCs without leukocytosis or anemia, without thrombocytopenia, patient's cre atinine is 1.0 and this is stable with his baseline, BUN is elevated today at 24.0 COVID PCR is pending. Patient was taken to the operating room by Dr. Anna, was sent with a knee immobilizer which she can apply her case and patient will be discharged if able. She assumed care. <Alberto Chiu, DO - Last Filed: 05/24/22 07:17> Lab Data Labs: Lab Results 05/20/22 05/20/22 05/20/22 Range/Units 17:00 17:00 17:00 WBC 7.6 (4.5-11.0) X10^3/uL RBC 4.79 (4.5-5.9) X10^6/uL Hgb 12.3 L (13.5-17.5) g/dL Hct 38.5 L (41-53) % MCV 80.3 (80-100) fL MCH 25.8 L (26-34) PG MCHC 32.1 (30-36) % RDW 22.9 H (11.6-14.8) % Plt Count 222 (150-400) X10^3/uL Neut % (Auto) 60.8 (50-75) % Lymph % (Auto) 27.8 (25-40) % [place] % (Auto) 6.0 (3-14) % Eos % (Auto) 4.8 H (2-4) % Baso % (Auto) 0.6 (0-2) % Neut # (Auto) 4700 (6021-6991) /uL Lymph # (Auto) 2100 (8533-6374) /uL [place] # (Auto) 500 (0-900) /uL Eos # (Auto) 400 (0-450) /uL Baso # (Auto) 0 (0-100) /uL RBC Morphology See below Poikilocytosis 1+ H Anisocytosis 2+ H PT 17.3 H (10.1-12.7) SECONDS INR 1.5 H (0.9-1.3) APTT 86 H* (26-36) SECONDS Sodium 139 (137-145) mmol/L Potassium 4.4 (3.4-5.1) mmol/L Chloride 105 (98-107) mmol/L Carbon Dioxide 26 (22-32) mmol/L BUN 24 H (9-20) mg/dL Creatinine 1.00 (0.66-1.25) mg/dL Estimated GFR > 60 (>60) mL/min BUN/Creatinine Ratio 24.0 H (6-22) Glucose 88 (80-110) mg/dL Calcium 9.0 (8.4-10.2) mg/dL Total Bilirubin 0.7 (0.2-1.3) mg/dL AST 43 (17-59) IU/L ALT 41 (<50) IU/L Alkaline Phosphatase 88 (38-126) U/L Total Protein 8.3 H (6.3-8.2) g/dL Albumin 4.5 (3.5-5.0) g/dL Globulin 3.8 (1.7-4.1) g/dL Albumin/Globulin Ratio 1.2 (1.0-2.8) SARS-CoV-2 (PCR) (Negative) 05/20/22 Range/Units 19:00 WBC (4.5-11.0) X10^3/uL RBC (4.5-5.9) X10^6/uL Hgb (13.5-17.5) g/dL Hct (41-53) % MCV (80-100) fL MCH (26-34) PG MCHC (30-36) % RDW (11.6-14.8) % Plt Count (150-400) X10^3/uL Neut % (Auto) (50-75) % Lymph % (Auto) (25-40) % [place] % (Auto) (3-14) % Eos % (Auto) (2-4) % Baso % (Auto) (0-2) % Neut # (Auto) (1943-6428) /uL Lymph # (Auto) (5833-2843) /uL [place] # (Auto) (0-900) /uL Eos # (Auto) (0-450) /uL Baso # (Auto) (0-100) /uL RBC Morphology Poikilocytosis Anisocytosis PT (10.1-12.7) SECONDS INR (0.9-1.3) APTT (26-36) SECONDS Sodium (137-145) mmol/L Potassium (3.4-5.1) mmol/L Chloride (98-107) mmol/L Carbon Dioxide (22-32) mmol/L BUN (9-20) mg/dL Creatinine (0.66-1.25) mg/dL Estimated GFR (>60) mL/min BUN/Creatinine Ratio (6-22) Glucose (80-110) mg/dL Calcium (8.4-10.2) mg/dL Total Bilirubin (0.2-1.3) mg/dL AST (17-59) IU/L ALT (<50) IU/L Alkaline Phosphatase (38-126) U/L Total Protein (6.3-8.2) g/dL Albumin (3.5-5.0) g/dL Globulin (1.7-4.1) g/dL Albumin/Globulin Ratio (1.0-2.8) SARS-CoV-2 (PCR) Negative (Negative) Urine Dip Bedside Urine Glucose Negative Bedside Urine Bilirubin - Negative Bedside Urine Ketone - Negative Urine Specific [place] 1.025 Bedside Urine Occult Blood - Negative Bedside Urine pH 6.0 Bedside Urine Protein - Negative Bedside Urine Urobilinogen - Negative Bedside Urine Nitrite - Negative Bedside Urine Leukocytes - Negative Esterase Discharge Plan Departure Patient Disposition: Admitted to Surgery Clinical Impression: Internal derangement of left knee, History of arthroplasty of both knees, History of psoriatic arthritis, History of anticoagulant therapy, Elevated INR, Elevated partial thromboplastin time (PTT) Effusion of knee Qualifiers: Laterality: left Qualified Code(s): M25.462 - Effusion, left knee Admit Date/Time: 05/20/22 19:06 Admit Provider: Lucy Anna <Alberto Chiu DO - Last Filed: 05/24/22 07:17> Cosign ED Attending Cosignature Attestation: I was immediately available in the department for consultation. This documentation has been reviewed and I agree with assessment and plan. Supervised by Alberto Chiu DO
[2022-05-20] MEDS: methocarbamoL 500 MG TABLET PO (16:57)
[2022-05-20] MEDS: OXYCODONE/ACETAMINOPHEN 5/325 TABLET 1 TAB PO (16:57)
[2022-05-20 17:22] LABS: Add Manual Diff / Slide Review NO; Basophils Absolute Auto 0 /uL (0-100); Basophils Percent Auto 0.6 % (0-2); Eosinophils Absolute Auto 400 /uL (0-450); Eosinophils Percent Auto 4.8 % (2-4); Hematocrit 38.5 % (41-53); Hemoglobin 12.3 g/dL (13.5-17.5); Lymphocytes Absolute Auto 2100 /uL (1100-4500); Lymphocytes Percent Auto 27.8 % (25-40); Mean Corpuscular HGB Conc 32.1 % (30-36); Mean Corpuscular Hemoglobin 25.8 PG (26-34); Mean Corpuscular Volume 80.3 fL (80-100); Monocytes Absolute Auto 500 /uL (0-900); Neutrophils Absolute Auto 4700 /uL (1500-7000); Neutrophils Percent Auto 60.8 % (50-75); Platelet Count 222 X10^3/uL (150-400); Red Blood Cell Count 4.79 X10^6/uL (4.5-5.9); Red Cell Distribution Width 22.9 % (11.6-14.8); White Blood Cell Count 7.6 X10^3/uL (4.5-11.0)
[2022-05-20 17:24] LABS: INR 1.5 (0.9-1.3); Prothrombin Time 17.3 SECONDS (10.1-12.7)
[2022-05-20 17:28] LABS: HEMOLYSIS < 15 (0-50); Potassium 4.4 mmol/L (3.4-5.1)
[2022-05-20 17:29] LABS: Alanine Aminotransferase 41 IU/L (<50); Albumin 4.5 g/dL (3.5-5.0); Albumin Globulin Ratio 1.2 (1.0-2.8); Alkaline Phosphatase 88 U/L (38-126); Aspartate Aminotransferase 43 IU/L (17-59); Bilirubin Total 0.7 mg/dL (0.2-1.3); Blood Urea Nitrogen 24 mg/dL (9-20); Carbon Dioxide 26 mmol/L (22-32); Chloride 105 mmol/L (98-107); Estimated Glomerular Filt Rate > 60 mL/min (>60); Globulin 3.8 g/dL (1.7-4.1); Glucose 88 mg/dL (80-110); Sodium 139 mmol/L (137-145); Total Protein 8.3 g/dL (6.3-8.2)
[2022-05-20 17:31] LABS: PTT Partial Thromboplastin Tim 86 SECONDS (26-36)
[2022-05-20] MEDS: HYDROMORPHONE 0.5 MG INJ IV (18:05)
[2022-05-20 18:07] LABS: Anisocytosis 2+; Poikilocytosis 1+
--- NOTE | 2022-05-20 19:06 | P.HP_ITS ---
History of Present Illness History of Present Illness Date Patient Seen: 05/20/22 Time Patient Seen: 19:06 Date of Onset of Symptoms: 05/19/22 Chief complaint: left artificial knee locked up at 90 degree Narrative: This is a 77-year-old gentleman who has a history of a left total knee arthroplasty which was done at [facility] about 12 years ago. He says that about a month ago he was driving from [place] to [place] for his rheumatology appointment when his left knee locked up in high flexion. He went to the emergency room at [facility] and underwent a closed reduction of his left knee. He was placed initially in a knee immobilizer and subsequently in a knee [id number] brace. He had subsequent follow-up with Orthopedics about 10 days post closed reduction and was told to continue his bracing. He notes that yesterday he went to put his socks on and his left knee redislocated and he can not flex or bend it. He came to the emergency room today for evaluation. Has no history of psoriatic arthritis. He is taken multiple injections for his psoriatic arthritis and he also has a history of atrial fibrillation and is on Xarelto. He takes Remicade 500 mg IV every 8 weeks, methotrexate, prednisone 10 mg a day Xarelto 20 mg a day. He did not have a specific history of injury. He notes that his knee did seem to be getting better after his most recent closed reduction. Patient History Medical History Alcoholism Anxiety Atrophic gastritis Chronic low back pain Cyst in hand (~2019) Depression Diverticulosis Dizziness Erectile dysfunction History of colon polyps HTN (hypertension) Hydronephrosis Hyperlipidemia Insomnia Ischemia Nephrolithiasis YAIMA on CPAP Osteoarthritis Paroxysmal atrial fibrillation Paroxysmal atrial flutter Prediabetes Psoriasis Psoriatic arthritis Psoriatic arthropathy Retroperitoneal mass RLS (restless legs syndrome) Sinus congestion Syncope Testosterone deficiency Vitamin D deficiency Surgical History History of total left knee replacement (TKR) Hx of lithotripsy Family & Social History Family History Father No problems noted. Mother No problems noted. Brother No problems noted. Sister No problems noted. Social History: household members spouse Safety & Behavioral: Feels Safe in Current Yes Environment Been Physically Hurt or No Threatened By a Person Tobacco & Substance use: Smoking Status Never smoker alcohol intake current alcohol intake frequency 0-2 drinks per day Substance Use Type does not use Meds Home Medications and Allergies Home Medications Medication Instructions Recorded Confirmed Type atorvastatin 10 mg tablet 10 mg PO DAILY 02/05/18 09/02/18 History bupropion HCl 150 mg 24 hr tablet, 150 mg PO DAILY 02/05/18 09/02/18 History extended release diethylpropion 25 mg tablet 25 mg PO TID increase BP 02/05/18 09/02/18 History gabapentin 300 mg capsule 600 mg PO BEDTIME 02/05/18 09/02/18 History methotrexate sodium 2.5 mg tablet 7.5 mg PO SEEINSTR 02/05/18 09/02/18 History metoprolol succinate 50 mg 25 mg PO BID 02/05/18 09/02/18 History tablet,extended release 24 hr rivaroxaban 20 mg tablet (Xarelto) 20 mg PO DAILY #30 tabs 02/07/18 09/02/18 Rx fluoxetine 20 mg capsule 20 mg PO DAILY 09/02/18 09/02/18 History vardenafil 20 mg tablet 20 mg PO DAILY PRN Sexual Activity 09/02/18 09/02/18 History acetaminophen 325 mg tablet 975 mg PO TID #0 tabs 09/07/18 Rx docusate sodium 100 mg capsule 100 mg PO BID #0 caps 09/07/18 Rx hydroxyzine pamoate 25 mg capsule 25 mg PO Q4HR PRN Muscle Spasm #0 09/07/18 Rx caps oxycodone 5 mg tablet 5 mg PO Q4-6H PRN Pain, Moderate 09/07/18 Rx (4-6) #0 tabs hydrocodone 5 mg-acetaminophen 325 1 tab PO Q6H PRN pain #20 tabs 02/03/21 Rx mg tablet Allergies Allergy/AdvReac Type Severity Reaction Status Date / Time No Known Drug Allergies Allergy Verified 09/06/18 12:49 Review of Systems Review of Systems Narrative: No recent falls, he notes that he does have some mild numbness in bilateral lower extremities, his right total knee arthroplasty which I did about 3 or 4 years ago is doing well. He has not had any fevers chills or erythema about his left knee. Exam Vital Signs (past 8 hours): - 11/16/22 15:25 05/20/22 16:24 05/20/22 16:24 Temperature 97.8 F Pulse Rate 75 78 Respiratory Rate 18 Blood Pressure 149/72 H 143/75 H Pulse Oximetry 100 99 Oxygen Delivery Method Room Air 05/20/22 16:30 05/20/22 16:30 Temperature Pulse Rate 72 Respiratory Rate Blood Pressure 157/82 H Pulse Oximetry 100 Oxygen Delivery Method Oxygen Delivery Method Room Air Narrative Exam Narrative: Is resting comfortably in bed, HEENT is benign, lungs are clear, abdomen soft and benign, cor is regular with 2/6 systolic ejection murmur, the left leg shows a hyperflexed left knee he can not be extended greater than about 80? of flexion, there is a moderate effusion, his incision is well healed, calf is soft distally, there is no erythema, minimal pain with range of motion in his hips, the right knee shows full range of motion Objective Labs Result Diagrams: 05/20/22 17:00 05/20/22 17:00 Labs: Laboratory Results - last 24 hr 05/20/22 05/20/22 05/20/22 17:00 17:00 17:00 WBC 7.6 RBC 4.79 Hgb 12.3 L Hct 38.5 L MCV 80.3 MCH 25.8 L MCHC 32.1 RDW 22.9 H Plt Count 222 Neut % (Auto) 60.8 Lymph % (Auto) 27.8 Reeves % (Auto) 6.0 Eos % (Auto) 4.8 H Baso % (Auto) 0.6 Neut # (Auto) 4700 Lymph # (Auto) 2100 Reeves # (Auto) 500 Eos # (Auto) 400 Baso # (Auto) 0 RBC Morphology See below Poikilocytosis 1+ H Anisocytosis 2+ H PT 17.3 H INR 1.5 H APTT 86 H* Sodium 139 Potassium 4.4 Chloride 105 Carbon Dioxide 26 BUN 24 H Creatinine 1.00 Estimated GFR > 60 BUN/Creatinine Ratio 24.0 H Glucose 88 Calcium 9.0 Total Bilirubin 0.7 AST 43 ALT 41 Alkaline Phosphatase 88 Total Protein 8.3 H Albumin 4.5 Globulin 3.8 Albumin/Globulin Ratio 1.2 x-rays show left knee total knee arthroplasty with posterior dislocation of the tibia, no obvious loosening, Assessment & Plan Assessment and plan (1) History of arthroplasty of both knees: Status: Acute (2) Effusion of knee: Qualifiers: Laterality: left Qualified Code(s): M25.462 - Effusion, left knee Status: Acute (3) Left knee dislocation: Status: Acute Plan Is evidence of a dislocated left total knee arthroplasty. I have recommended closed reduction with anesthesia. Options risks benefits and complications were discussed in detail. He has had 1 other dislocation which could be reduced closed. I told him if we are completely unsuccessful in reducing it closed there is a small chance that he would require admission and open reduction. This is his 2nd dislocation of his total knee arthroplasty. Ultimately he likely will require revision arthroplasty. Risks benefits complications discussed in detail. He is on chronic anticoagulation with Xarelto and has chronic AFib. He also has a history of chronic alcoholism. His left total knee arthroplasty was done at [facility] in [place]. I did his right total knee arthroplasty about 3-4 years ago. His right knee is doing well. Time Spent With Patient Critical Care time: I spent a total of [] minutes of critical care time on this patient's care today; this time is exclusive of procedural time.
--- NOTE | 2022-05-20 19:19 | P.OP_ITS ---
Operative Date/Time/Diagnoses Date of procedure: 05/20/22 Time of procedure: 19:50 Pre-op diagnosis: Dislocated right total knee arthroplasty Post-op diagnosis: same Procedure & Clinicians Procedure: Closed reduction right total knee arthroplasty. Same procedure as scheduled: Yes Indications: This is a 77-year-old gentleman who is about 11 or 12 years status post a left total knee arthroplasty which was done down in [place]. He had a dislocation of his cam post about a month ago and underwent a closed reduction down in [place]. He redislocated yesterday. He is brought to the operating room for closed reduction left total knee arthroplasty. Surgeon: Lucy Anna Anesthesia Type: General Operative Notes Findings: Closed reduction with high flexion and axial pulling, adequate reduction Closure Type: primary Specimen(s): none sent Blood products transfused: none Procedure in detail: Patient is brought the operating room. He underwent induction of a general anesthesia. He was carefully transferred to the operating room table. A time- out was performed. Adequate anesthesia was noted. He underwent a reduction maneuver consisting of high flexion and anterior drawer of the tibia. Adequate reduction was achieved. X-rays confirmed adequate reduction. He was placed in a knee immobilizer. Complications: none Post-operative Condition: stable Disposition: Acute Care Plan for aftercare: Knee immobilizer until tomorrow then okay to do range of motion brace with range of motion 0-30 degrees, follow-up in 10 days or so.
--- NOTE | 2022-05-20 19:48 | SUR.OPER ---
Supine on padded OR bed, head on pillow, arms secured on padded arm boards at <90 degrees abduction, legs uncrossed, safety belt across abdomen, tape over blanket over nonoperative leg.
[2022-05-20] MEDS: LACTATED RINGERS 1,000 ML 42 ML IV (20:24)
[2022-05-20 20:34] LABS: COVID19 -Nasal RAPID Negative (Negative)
== END 2022-05-20 21:39 | disposition home or self-care (01) ==
LOC: ED 19:03 → AC 19:46 → OR 05-26 10:05
PROVIDERS: Emergency Provider Nurse Practitioner Critical Care Medicine; PCP Internal Medicine; Referring Provider Nurse Practitioner Critical Care Medicine; Visit Provider Orthopaedic Surgery
PROC: (CPT 27552; principal; 2022-05-20 20:00)
DX: T84.022A Instability of internal right knee prosthesis, initial encounter (principal); T84.093A Other mechanical complication of internal left knee prosthesis, initial encounter; I48.20 Chronic atrial fibrillation, unspecified; M23.8X2 Other internal derangements of left knee; M25.462 Effusion, left knee
CPT/HCPCS: 27552; 36415; 73560; 73562; 76000; 80053; 81003; 85025; 85610; 85730; 87635; 99284; C9803; J0330; J1170; J2250; J2405; J2704; J3010

== ENCOUNTER → 2022-06-16 13:51 | Outpatient (CLI) | payer MEDICARE, OTHER, SELFPAY ==
[2018-09-06 16:27] VITALS: BMI 31.1
[2022-06-16 15:00] LABS: COVID19 -Nasal RAPID Negative (Negative)
== END ==
PROVIDERS: PCP Internal Medicine; Referring Provider Orthopaedic Surgery; Visit Provider Orthopaedic Surgery
DX: Z20.822 Contact with and (suspected) exposure to COVID-19 (principal)
CPT/HCPCS: 87635; C9803

== ENCOUNTER 2022-06-19 09:33 | Inpatient (IN) | payer MEDICARE, OTHER, SELFPAY ==
[2018-09-06 16:27] VITALS: BMI 31.1
[2022-06-18 12:16] VITALS: BMI 34.7
[2022-06-19] VITALS (11 sets, daily range): BP systolic 119–135; BP diastolic 65–77; PULSE 62–79; RESP 12–18; TEMP 36.3–36.9; O2SAT 91–98; BMI 34.7
--- NOTE | 2022-06-19 06:00 | DI.RAD.S_ITS ---
PROCEDURE: XR KNEE LT 1TO2V INDICATIONS: revision, total knee, poly replacement TECHNIQUE: 2 views of the knee were acquired. COMPARISON: [facility], [place], XR KNEE LT 1TO2V, 05/20/2022, 22:04. FINDINGS: Bones: Total knee prosthesis in good position. No evidence of hardware failure or loosening. No fracture Soft tissues: Soft tissue air noted in the joint capsule. IMPRESSION: Total knee prosthesis in good position. Postprocedural soft tissue air Approved by: Ady Estrada M.D. on 06/19/2022 at 18:04
[2022-06-19] MEDS: VANCOMYCIN 1,000 MG/200 ML PIGGYBACK 200 MG IV (10:00)
[2022-06-19] MEDS: ACETAMINOPHEN 325 MG TABLET 975 MG PO (10:15)
[2022-06-19] MEDS: LACTATED RINGERS 1,000 ML 42 ML IV (10:17)
--- NOTE | 2022-06-19 11:19 | PM.PREOP ---
Pre-operative Note COVID-19 COVID-19 status: Negative Interval Note History & Physical reviewed/Exam performed by Physician: Yes Changes to H&P: No
--- NOTE | 2022-06-19 11:41 | P.OP_ITS ---
Operative Date/Time/Diagnoses Date of procedure: 06/19/22 Time of procedure: 11:50 Pre-op diagnosis: left knee dislocation after left total knee Post-op diagnosis: same Procedure & Clinicians Procedure: Left total knee revision of 1 component polyethylene Same procedure as scheduled: Yes Indications: The patient has I history of left total knee arthroplasty. He has done reasonably well with it but then started dislocating. He has a history of 2 dislocations of his left knee with a locked knee which required surgical anesthesia for reduction. He has a Journey BC S1 component. Non-operative management has failed and the patient has requested revision left total knee replacement. The risks, benefits and alternatives to surgery were discussed with the patient prior to proceeding. Risks discussed included, but were not limited to, failure to relieve pain, stiffness, infection, nerve damage, deep venous thrombosis, pulmonary embolism, stroke, coma, heart attack, permanent paralysis and , as well as the potential need for eventual rerevision of the prosthetic. Surgeon: Lucy Anna Staking Technician: Liat Ardon Anesthesia Type: Spinal and Sedation Operative Notes Findings: Broken polyethylene post, good stability with deep dish 11 mm polyethylene, good range of motion Closure Type: primary Specimen(s): other (Cultures) Prosthetic devices, grafts, tissues, transplants, or devices: deep Dished polyethylene 11mm size 7-8 tibia Estimated Blood Loss (mL): 100 Blood products transfused: none Tourniquet time (min): 21 Procedure in detail: The patient was seen in the pre-operative area, where the patient identified the left knee as the operative site and this was marked with my initials. The patient received pre-operative antibiotics, and was taken to the operating room and placed on the operative table in the supine position. After satisfactory anesthesia, a time broker out was performed. The left leg was encircled with a tourniquet about the proximal thigh, and the leg was prepared from the toes to the tourniquet with ChloroPrep in the usual fashion and draped through sterile drapes. The leg was elevated and exsanguinated with Eschmark bandage and the tourniquet inflated to [250] mmHg pressure. The knee was approached through an approximately 18 cm incision centered over the patella and carried into the knee through a medial parapatellar arthrotomy. Dissection was carried out to down to the knee. The patella was gently mobilized. A partial synovectomy was performed. The polyethylene was examined. There was evidence of polyethylene wear. Patient was placed in a hyperflexed position and it could be noted that the tibia subluxed posteriorly locking the post. The polyethylene was removed. The post was broken and a large piece of post was removed. Fragments of polyethylene were also removed. Deep cultures were sent. A trial reduction was performed with a dished poly. There was good range of motion adequate stability even in high flexion. The knee was meticulously irrigated with normal saline. The final polyethylene was inserted. It Was injected with a mixture of 60 ml 0.25% Marcaine mixed with 20 ml Exparel for post operative pain control. The remainder of this mixture was injected into the capsule and subcutaneous tissues during cement curing. The tibial and femoral components were then placed and the knee placed through a range of motion. Range of motion was [0-130], with good stability throughout the range. The knee was copiously irrigated and the tourniquet deflated. Hemostasis was obtained with the Bovie cautery. The capsule was closed with interrupted nonabsorbable suture. The subcutaneous layer was closed with barbed sutures, and the skin with a running 3-0 V-Lock suture and skin mickie. An Aquacel Ag dressing was applied and the patient was taken to recovery having tolerated the procedure well. Complications: none Post-operative Condition: stable Disposition: observation Plan for aftercare: The patient will be maintained on a standard total knee replacement protocol with weight bearing as tolerated. The patient will receive Xarelto to resume on Wednesday and sequential compression devices for DVT prophylaxis. The patient will be discharged home when safe for the home environment.
[2022-06-19] MEDS: CEFAZOLIN 2 GM/100 ML PREMIX 100 ML IV (12:05)
[2022-06-19] MEDS: TRANEXAMIC ACID 1,000 MG VIAL 2000 MG INJ (12:07)
--- NOTE | 2022-06-19 12:18 | SUR.OPER ---
Supine on padded OR bed. Pillow under head, arms secured on padded armboards <90 degree abduction. Safety belt across torso. Non-operative leg secured with tape over blanket over lower leg. Operative leg secured in DeMayo positioner. Foam padded brace at thigh of operative leg.
[2022-06-19] MEDS: BUPIVACAINE LIPOSOME 266 MG/20 ML VIAL INJ (12:40)
[2022-06-19] MEDS: BUPIVACAINE 0.5% W/ EPI (PF) 30 ML VIAL INJ (12:43)
[2022-06-19] MEDS: LACTATED RINGERS 1,000 ML 120 ML IV (12:45)
--- NOTE | 2022-06-19 13:51 | SUR.PHASEI ---
Assumed care at 1345. Report received
[2022-06-19] MEDS: OXYCODONE IR 5 MG TABLET PO ×2 (13:54→14:17)
--- NOTE | 2022-06-19 14:09 | SUR.PHASEI ---
IS provided. Patient instructed how to use. Able to inhale to 2000ml
--- NOTE | 2022-06-19 14:31 | SUR.PHASEI ---
Report called to Eva
[2022-06-19 14:42] LABS: Body Fluid Appearance CLEAR; Body Fluid Color YELLOW
--- NOTE | 2022-06-19 14:56 | SUR.PHASEI ---
Patient transferred to the floor with two belongings bags, cane, walker, glasses, CPAP. Report given to Eva. VS stable. IV saline locked. Left knee dressing CDI.
[2022-06-19 15:26] LABS: Body Fluid Clotted? SPECIMEN CLOTTED
[2022-06-19 15:35] LABS: Mononuclear WBC Body Fluid 97 %; Polynuclear WBC Body Fluid 3 %
--- NOTE | 2022-06-19 19:54 | PC.NURSE ---
Pt is A&Ox3, VSS, afebrile on RA. He is able to ambulate to the bathroom, denies dizziness or nausea. He is able to void, and tolerates dinner. PT is able to work with patient using FWW/cane and he is cleared for discharge this evening. He and his at bedside verbalize understanding of discharge medications, activity, s/sx of infection/complications, site care as well as follow up care. Pt is escorted via w/ch by HRIS ANALYST to private vehicle with with alll of his belongings at 1818 p.m this evening.
--- NOTE | 2022-06-22 | DI.MRI.S_ITS ---
PROCEDURE: MR HEAD/BRAIN WO CON INDICATIONS: confusion, altered mental status TECHNIQUE: Non-contrast axial T1 spin echo, axial T2 fast spin echo, sagittal and axial FLAIR, coronal T2 fast spin echo, axial gradient echo, axial diffusion and ADC through the brain. COMPARISON: [facility], CT, CT HEAD/BRAIN WO CON, 06/21/2022, 22:27. FINDINGS: Image quality: Excellent. CSF spaces: There is passive expansion of the ventricular system and extra-axial spaces due to volume loss. No abnormal extra-axial fluid collection. The ventricular system and basilar cisterns are patent. Brain: No restricted diffusion to indicate recent ischemia. No unexpected intracranial susceptibility. No findings of mass effect or midline shift. Moderate global cerebral volume loss and chronic microvascular ischemic changes. Skull and face: Normal marrow signal intensity in the skull base and calvarium is maintained. Sinuses: Sinuses and mastoids are clear. No paranasal sinus fluid level Mild diffuse paranasal sinus mucosal thickening. No mastoid air cell effusion. IMPRESSION: No acute intracranial finding. Moderate global cerebral volume loss and chronic microvascular ischemic changes. Dictated by: Raul Hernandez M.D. on 06/22/2022 at 9:03 Approved by: Raul Hernandez M.D. on 06/22/2022 at 9:05
== END 2022-06-19 18:18 | disposition home or self-care (01) | DRG 489 ==
LOC: AC 14:09 → ICU 14:49
PROVIDERS: Admitting Provider Orthopaedic Surgery; PCP Internal Medicine; Referring Provider Orthopaedic Surgery; Visit Provider Orthopaedic Surgery
PROC: 0SUW09Z Supplement Left Knee Joint, Tibial Surface with Liner, Open Approach (ICD-10-PCS; principal; 2022-06-19 11:15)
DX: T84.023A Instability of internal left knee prosthesis, initial encounter (principal); Z20.822 Contact with and (suspected) exposure to COVID-19
CPT/HCPCS: 73560; 87070; 87075; 87205; 87635; 89051; 97161; 97530; C1776; C9803; C9290; J0690; J1100; J2250; J2405; J2704; J3010

== ENCOUNTER 2022-06-20 09:41 | Emergency (ER) | payer MEDICARE, OTHER, SELFPAY ==
[2022-06-19 15:06] VITALS: BMI 34.7
--- NOTE | 2022-06-20 10:14 | ED_ITS ---
HPI - General Adult General Chief complaint: Urogenital-Male Stated complaint: post op problems Time Seen by Provider: 06/20/22 09:56 History of Present Illness HPI narrative: 77-year-old male with history of AFib on anticoagulation, hypertension and recent knee surgery presents at the request of his orthopedist for evaluation of difficulty urinating. Patient had surgery here at [facility] on June 19 for left total knee revision due to recurrent dislocations. He is had dif ficulty initiating a urine stream and eventually unable to produce urine at all. He denies back pain, fever or chills. He denies any numbness in his groin, he is had no trouble controlling his bowels. He denies any numbness, tingling or weakness of his legs and has no lower extremity weakness. He does complain of some pain in his suprapubic region, he had contacted his orthopedist to called ahead to let us know he would becoming in Related Data Home Medications Medication Instructions Recorded Confirmed atorvastatin 10 mg tablet 20 mg PO QPM 02/05/18 06/19/22 bupropion HCl 150 mg 24 hr tablet, 150 mg PO DAILY 02/05/18 06/19/22 extended release gabapentin 300 mg capsule 600 mg PO BEDTIME 02/05/18 06/19/22 methotrexate sodium 2.5 mg tablet 7.5 mg PO SEEINSTR 02/05/18 06/19/22 metoprolol succinate 50 mg 50 mg PO QAM 02/05/18 06/19/22 tablet,extended release 24 hr fluoxetine 20 mg capsule 20 mg PO DAILY 09/02/18 06/19/22 vit C 250 mg-vit E 90 mg-zinc 40 1 tab PO BID 06/15/22 06/19/22 mg-copper 1 [id number] capsule (PreserVision AREDS-2) Previous Rx's Medication Instructions Recorded oxycodone 5 mg tablet 5 mg PO Q4HR PRN Moderate to 06/19/22 severe postop pain #40 tabs rivaroxaban 20 mg tablet (Xarelto) 20 mg PO QPM #30 tabs 06/19/22 tamsulosin 0.4 mg capsule (Flomax) 0.4 mg PO DAILY #30 caps 06/20/22 Allergies Allergy/AdvReac Type Severity Reaction Status Date / Time No Known Drug Allergies Allergy Verified 06/20/22 10:23 Review of Systems Review of Systems Narrative: GENERAL: Denies chills, fatigue, malaise, fever, sweats. HEENT: Denies sinus pain, ear pain, sore throat, difficulty swallowing, dizziness. RESPIRATORY: Denies dyspnea, cough, wheezing, hemoptysis, sputum. CARDIOVASCULAR: Denies chest pain, palpitations, orthopnea, edema, GASTROINTESTINAL: see HPI : see HPI. MUSCULOSKELETAL: denies weakness, joint pain, or bony pain SKIN: Denies rash, skin lesions, or other NEUROLOGIC: Denies weakness, headache, numbness, change in speech, confusion, seizures, incoordination. PSYCHIATRIC: No concerning psychosocial issues. 12 point review of systems is negative except for those stated above Patient History Medical History Alcoholism Anxiety Atrophic gastritis Chronic low back pain Cyst in hand (~2019) Depression Diverticulosis Dizziness Erectile dysfunction Hearing impaired History of colon polyps HTN (hypertension) Hydronephrosis Hyperlipidemia Insomnia Ischemia Nephrolithiasis YAIMA on CPAP Osteoarthritis Paroxysmal atrial fibrillation Paroxysmal atrial flutter Prediabetes Psoriasis Psoriatic arthritis Psoriatic arthropathy Retroperitoneal mass RLS (restless legs syndrome) Sinus congestion Syncope Testosterone deficiency Vitamin D deficiency Surgical History History of ear, nose, and throat (ENT) surgery History of surgery (05/20/22) History of total left knee replacement (TKR) History of total right knee replacement (09/06/18) Hx of bilateral cataract extraction Hx of hernia repair Hx of lithotripsy Hx of tonsillectomy Family History Father No problems noted. Mother No problems noted. Brother No problems noted. Sister No problems noted. Social History household members: spouse Smoking Status: Never smoker alcohol intake: current Smoking Status: Never smoker alcohol intake frequency: 0-2 drinks per day Substance Use Type: does not use Exam Narrative Exam Narrative: GENERAL: [77] year old patient appears stated age. Well-developed patient, in mild distress. Uncomfortable and complaining of lower abdominal pain HEAD: Atraumatic. Normocephalic. EYES: Pupils equal round and reactive. Extraocular motions intact. No scleral icterus. No injection or drainage. ENT: Nose without bleeding, purulent drainage. Throat without erythema, tonsillar hypertrophy or exudate. Airway patent. NECK: Trachea midline. Non tender CARDIOVASCULAR: Regular rate and rhythm without murmurs, gallops, or rubs. RESPIRATORY: Clear to auscultation. Breath sounds equal bilaterally. No wheezes, rales, or rhonchi. GASTROINTESTINAL: Abdomen soft, suprapubic tenderness, nondistended. EXTREMITIES: Left lower extremity in postoperative wrap BACK: No saddle anesthesia or lower extremity numbness, tingling or weakness NEURO: AOx3. SKIN: No rash or erythema of visible areas Initial Vital Signs Initial Vital Signs: Vital Signs Temperature 99.1 F 06/20/22 10:23 Pulse Rate 78 06/20/22 10:23 Respiratory Rate 15 06/20/22 10:23 Blood Pressure 155/70 H 06/20/22 10:23 Pulse Oximetry 95 06/20/22 10:23 Oxygen Delivery Method 06/20/22 10:23 Course Course Course Narrative: Patient unable to urinate, bedside bladder scan by nursing notes over 800 mL, Mora catheter placed and patient has not near immediate and complete resolution of symptoms Orders Ordered: ED Orders 06/20/22 10:15 UA Complete [Urinalysis and Microscopic] Stat Discontinued Medications Tamsulosin HCl (Tamsulosin 0.4 Mg Capsule) 0.4 mg PO NOW ONE Stop: 06/20/22 10:25 Vital Signs Vital signs: Vital Signs - 8 hr 06/20/22 10:23 Temperature 99.1 F Pulse Rate 78 Respiratory Rate 15 Blood Pressure 155/70 H Pulse Oximetry 95 Oxygen Delivery Method Room Air Medical Decision Making Lab Data Labs: Lab Results 06/20/22 Range/Units 10:15 Urine Color Yellow Urine Appearance Clear Urine pH 5.5 (4.5-8.0) Ur Specific [place] 1.015 (1.000-1.035) Urine Protein Trace H (Negative) Urine Glucose (UA) Negative (Negative) g/dL Urine Ketones Negative (NEGATIVE) Urine Occult Blood Trace-intact (Negative) Urine Nitrate Negative (Negative) Urine Bilirubin Negative (NEGATIVE) Urine Urobilinogen 0.2 (0.2) E.U./dL Ur Leukocyte Esterase Negative (NEGATIVE) [facility] Narrative Medical decision making narrative: 77-year-old male nonsmoker with history of AFib, hypertension, hyperlipidemia and recent knee surgery presents with inability to urinate in the absence of other neurologic symptoms. Multiple etiologies for patient's symptoms considered including, but not limited to: [Urinary retention, cauda equina, epidural abscess versus other. Patient has no other neurologic signs of cauda equina or spinal cord injury such as bowel problems, saddle anesthesia, footdrop, lower extremity numbness, tingling or weakness. Prior Charts reviewed: Including recent emergency department visits and operative notes Consultations: Discussed with on-call orthopedist, Dr. Aponte, prior to patient's arrival Patient's symptoms improved over duration of stay with above-stated therapies. Findings and discharge diagnosis discussed with patient/family followed by verbalization of understanding Return precautions discussed with patient/family whom verbalize understanding of diagnosis and plan Discharge Plan Departure Patient Disposition: Home Clinical Impression: Acute urinary retention Instructions: DI for Urinary Retention in Men Activity Restrictions/Additional Instructions: *You have been diagnosed with [urinary retention] *What to do: *Please continue to take your regular medications as directed. [x ] New medication prescriptions sent to your pharmacy: [ [facility]] [ ] New medication written as a paper prescription [ ] No new medications given * as we discussed, please follow-up with Dr. Nicholson or Dr. Boateng with our urology group. Please call Wednesday morning, let them know you were seen in the emergency department and we would like you seen in follow-up. I will electronically transmitted a copy of today's note to their office. *Return to Emergency Department if you should have any new, worsening or concerning symptoms, such as [fever greater than 101 F, shaking chills, worsening pain, persistent vomiting or other bothersome symptoms] Prescriptions: New tamsulosin [Flomax] 0.4 mg capsule 0.4 mg PO DAILY Qty: 30 0RF No Action PreserVision AREDS-2 250-90-40-1 mg Capsule 1 tab PO BID oxycodone 5 mg Tablet 5 mg PO Q4HR PRN (Reason: Moderate to severe postop pain) Qty: 40 0RF Xarelto 20 mg tablet 20 mg PO QPM Qty: 30 0RF Rx Instructions: Resume Xarelto on 06/21/22 metoprolol succinate 50 mg tablet extended release 24 hr 50 mg PO QAM Label Comments: TK 1 T PO QD methotrexate sodium 2.5 mg tablet 7.5 mg PO SEEINSTR Rx Instructions: 7.5mg sat, sun only bupropion HCl 150 mg tablet extended release 24 hr 150 mg PO DAILY atorvastatin 10 mg tablet 20 mg PO QPM gabapentin 300 mg capsule 600 mg PO BEDTIME fluoxetine 20 mg Capsule 20 mg PO DAILY Referrals: Kavita Aranda MD [Primary Care Provider] - Hima Nicholson MD [Physician] -
[2022-06-20 10:23] VITALS: BP 155/70; PULSE 78; RESP 15; TEMP 37.3; O2SAT 95; BMI 33.9
[2022-06-20 10:39] LABS: Appearance Urine UA CLEAR; Bilirubin Urine UA NEGATIVE (NEGATIVE); Color Urine UA YELLOW; Glucose Urine UA NEGATIVE (Negative); Ketones Urine UA NEGATIVE (NEGATIVE); Leukocyte Esterase Urine UA NEGATIVE (NEGATIVE); Nitrite Urine UA NEGATIVE (Negative); Occult Blood Urine UA TRACE-INTACT (Negative); Protein Urine UA TRACE (Negative); Specific Gravity Urine UA 1.015 (1.000-1.035); Urobilinogen Urine UA 0.2 E.U./dL (0.2); pH Urine UA 5.5 (4.5-8.0)
[2022-06-20 11:06] LABS: Bacteria Urine Occasional (0-1); Culture Indicated Urine Cult Not Indicated; Mucus Urine 1+ (Negative); RBC Urine 1-5/HPF (0-5/HPF); WBC Urine None Seen (0-5/HPF)
[2022-06-20 11:24] VITALS: BP 149/70; PULSE 69; RESP 20; O2SAT 95
[2022-06-20] MEDS: TAMSULOSIN 0.4 MG CAPSULE PO (11:25)
--- NOTE | 2022-06-20 12:20 | PC.NURSE ---
Pt and teaching performed prior to discharge.reviewed leg bag care, changing to night bag. urogenital care. how to empty. open and close clamp. reviewed entire [employer]. i also gave them a copy of teaching instructions. and patient verbalized and demonstrated how to open and close valve to empty cath
== END 2022-06-20 11:57 | disposition home or self-care (01) ==
PROVIDERS: Emergency Provider Emergency Medicine; PCP Internal Medicine
DX: R33.9 Retention of urine, unspecified (principal)
CPT/HCPCS: 51798; 81001; 99284

== ENCOUNTER 2022-06-21 19:45 | Inpatient (IN) | payer MEDICARE, OTHER, SELFPAY ==
[2022-06-19 15:06] VITALS: BMI 34.7
[2022-06-21] VITALS (11 sets, daily range): BP systolic 100–130; BP diastolic 55–63; PULSE 67–82; RESP 22–34; TEMP 38.8–39.2; O2SAT 91–96; BMI 34.4; BMI 36.3
--- NOTE | 2022-06-21 19:53 | DI.RAD.S_ITS ---
PROCEDURE: XR CHEST 1V INDICATIONS: suspected sepsis TECHNIQUE: One view of the chest was acquired. COMPARISON: [facility], CR, XR CHEST 1V, 02/05/2018, 15:40. FINDINGS: Surgical changes and devices: None. Lungs and pleura: There are increased confluent left basilar opacities likely representing consolidation due to pneumonia given clinical history. There is a small left pleural effusion. Right lung is clear. No pneumothorax. Mediastinum: Mediastinal contours appear unchanged. Heart size is normal. Bones and chest wall: No suspicious bony lesions. Overlying soft tissues appear unremarkable. IMPRESSION: 1. Confluent left basilar opacities likely representing consolidation due to pneumonia given clinical history. 2. Small left pleural effusion Dictated by: Prince Hernandez M.D. on 06/21/2022 at 21:26 Approved by: Prince Hernandez M.D. on 06/21/2022 at 21:27
[2022-06-21 20:10] LABS: Add Manual Diff / Slide Review NO; Basophils Absolute Auto 0 /uL (0-100); Basophils Percent Auto 0.2 % (0-2); Eosinophils Absolute Auto 0 /uL (0-450); Hematocrit 34.2 % (41-53); Hemoglobin 11.2 g/dL (13.5-17.5); Lymphocytes Absolute Auto 400 /uL (1100-4500); Lymphocytes Percent Auto 8.5 % (25-40); Mean Corpuscular HGB Conc 32.7 % (30-36); Mean Corpuscular Hemoglobin 26.1 PG (26-34); Mean Corpuscular Volume 79.8 fL (80-100); Monocytes Absolute Auto 700 /uL (0-900); Monocytes Percent Auto 13.5 % (3-14); Neutrophils Absolute Auto 4000 /uL (1500-7000); Neutrophils Percent Auto 77.8 % (50-75); Platelet Count 157 X10^3/uL (150-400); Red Blood Cell Count 4.29 X10^6/uL (4.5-5.9); Red Cell Distribution Width 23.2 % (11.6-14.8); White Blood Cell Count 5.2 X10^3/uL (4.5-11.0)
[2022-06-21 20:11] LABS: INR 2.5 (0.9-1.3); Prothrombin Time 28.9 SECONDS (10.1-12.7)
[2022-06-21] MEDS: SODIUM CHLORIDE 0.9% 1,000 ML 1000 ML IV (20:13)
[2022-06-21 20:15] LABS: Alanine Aminotransferase 26 IU/L (<50); Albumin 3.8 g/dL (3.5-5.0); Albumin Globulin Ratio 1.1 (1.0-2.8); Alkaline Phosphatase 70 U/L (38-126); Aspartate Aminotransferase 52 IU/L (17-59); BUN Creatinine Ratio 17.1 (6-22); Bilirubin Total 1.1 mg/dL (0.2-1.3); Blood Urea Nitrogen 18 mg/dL (9-20); Calcium 8.1 mg/dL (8.4-10.2); Carbon Dioxide 23 mmol/L (22-32); Chloride 99 mmol/L (98-107); Estimated Glomerular Filt Rate > 60 mL/min (>60); Globulin 3.5 g/dL (1.7-4.1); Glucose 106 mg/dL (80-110); HEMOLYSIS < 15 (0-50); Lipase 24 U/L (23-300); Potassium 3.7 mmol/L (3.4-5.1); Sodium 133 mmol/L (137-145); Total Protein 7.3 g/dL (6.3-8.2)
[2022-06-21 20:18] LABS: PTT Partial Thromboplastin Tim 80 SECONDS (26-36)
[2022-06-21 20:31] LABS: Procalcitonin 0.23 ng/mL (<0.5)
[2022-06-21 20:39] LABS: Anisocytosis 3+; Microcytosis 1+; Stomatocytes 1+
[2022-06-21 20:40] LABS: Hypochromasia 1+
[2022-06-21 20:58] LABS: Adenovirus Not Detected (Not Detect); B. parapertussis Not Detected (Not Detecte); Bordetella pertussis Not Detected (Not Detecte); Chlamydophila pneumoniae Not Detected (Not Detect); Coronavirus 229E Not Detected (Not Detect); Coronavirus HKU1 Not Detected (Not Detect); Coronavirus NL 63 Not Detected (Not Detect); Coronavirus OC43 Not Detected (Not Detect); Human Metapneumovirus Not Detected (Not Detect); Human Rhinovirus/Enterovirus Not Detected (Not Detect); Influenza A Not Detected (Not Detect); Influenza B Not Detected (Not Detect); Mycoplasma pneumoniae Not Detected (Not Detect); Parainfluenza Virus 1 Not Detected (Not Detect); Parainfluenza Virus 2 Not Detected (Not Detect); Parainfluenza Virus 3 Not Detected (Not Detect); Parainfluenza Virus 4 Not Detected (Not Detect); Respiratory Syncytial Virus Not Detected (Not Detect); SARS- CoV-2 Not Detected (Not Detecte)
--- NOTE | 2022-06-21 21:20 | PC.NURSE ---
MD at bedside - family present
[2022-06-21] MEDS: ACETAMINOPHEN 325 MG TABLET 975 MG PO (21:21)
--- NOTE | 2022-06-21 21:21 | ED.AMS ---
HPI - Altered Mental Status General Chief Complaint: Altered Mental Status Stated Complaint: Altered Time Seen by Provider: 06/21/22 21:13 Source: patient, family and EMS Mode of arrival: EMS Limitations: no limitations History of Present Illness HPI narrative: This is a 77-year-old male on Xarelto for atrial fibrillation on CPAP who presents with fever, he is 2 days status post knee surgery. Patient was seen yesterday for acute urinary retention had a catheter placed and was discharged home on tamsulosin. So far urine culture has been negative. Patient had no known fevers here but had a fever with EMS he is 89 F here in the emergency department his states he has been using a walker to get around the house they have not appreciate any weakness they states he seems confused he is better than when he was at the house. They state that he seemed like he had trouble saying what he wanted to say. Patient had denies chest pain or shortness of breath, denies nausea or vomiting, he is having bowel movements no diarrhea black or bloody stools. Catheter has been in place draining urine they have had some struggles with opening and closing the catheter but have not noticed a decrease in urine output. No lateralizing weakness. No slurred speech appreciated. Patient family has not looked at his knee since the surgery but has not appreciated redness. Patient has not had any cough cold or congestive symptoms. He is on multiple medications, states he is had knee surgery x3 has had no known prior infections in the knee itself. No cardiac surgeries, no ablation. They deny other surgeries with the patient. No known drug allergies. No tobacco he drinks a bottle of wine daily he has been drinking wine since he is returned home, no illicit. Dr. Aranda in [place] is PCP. Dr. Wilkes is cardiology in [place]. Related Data Home Medications Medication Instructions Recorded Confirmed atorvastatin 10 mg tablet 20 mg PO QPM 02/05/18 06/22/22 bupropion HCl 150 mg 24 hr tablet, 150 mg PO DAILY 02/05/18 06/22/22 extended release gabapentin 300 mg capsule 600 mg PO BEDTIME 02/05/18 06/22/22 methotrexate sodium 2.5 mg tablet 7.5 mg PO SEEINSTR 02/05/18 06/22/22 metoprolol succinate 50 mg 50 mg PO QAM 02/05/18 06/22/22 tablet,extended release 24 hr fluoxetine 20 mg capsule 20 mg PO DAILY 09/02/18 06/22/22 vit C 250 mg-vit E 90 mg-zinc 40 1 tab PO BID 06/15/22 06/22/22 mg-copper 1 [id number] capsule (PreserVision AREDS-2) Previous Rx's Medication Instructions Recorded oxycodone 5 mg tablet 5 mg PO Q4HR PRN Moderate to 06/19/22 severe postop pain #40 tabs rivaroxaban 20 mg tablet (Xarelto) 20 mg PO QPM #30 tabs 06/19/22 tamsulosin 0.4 mg capsule (Flomax) 0.4 mg PO DAILY #30 caps 06/20/22 Allergies Allergy/AdvReac Type Severity Reaction Status Date / Time No Known Drug Allergies Allergy Verified 06/20/22 10:23 Review of Systems Review of Systems ROS Unobtainable: All systems reviewed & are unremarkable except as noted in HPI and below Patient History Medical History Alcoholism Anxiety Atrophic gastritis Chronic low back pain Cyst in hand (~2019) Depression Diverticulosis Dizziness Erectile dysfunction Hearing impaired History of colon polyps HTN (hypertension) Hydronephrosis Hyperlipidemia Insomnia Ischemia Nephrolithiasis YAIMA on CPAP Osteoarthritis Paroxysmal atrial fibrillation Paroxysmal atrial flutter Prediabetes Psoriasis Psoriatic arthritis Psoriatic arthropathy Retroperitoneal mass RLS (restless legs syndrome) Sinus congestion Syncope Testosterone deficiency Vitamin D deficiency Surgical History History of ear, nose, and throat (ENT) surgery History of surgery (05/20/22) History of total left knee replacement (TKR) History of total right knee replacement (09/06/18) Hx of bilateral cataract extraction Hx of hernia repair Hx of lithotripsy Hx of tonsillectomy Family History Father No problems noted. Mother No problems noted. Brother No problems noted. Sister No problems noted. Social History household members: spouse Smoking Status: Never smoker alcohol intake: current Smoking Status: Never smoker alcohol intake frequency: 0-2 drinks per day Substance Use Type: does not use Exam Narrative Exam Narrative: GEN: well nourished, well appearing male, alert and oriented x 3, patient appears to be in mild distress. Patient is hot to to the touch all over. He seems to be hard of hearing but is answering questions appropriately. HEENT: Atraumatic, pupils are equal round reactive to light, extraocular movements are intact, nares are clear, TMs are clear with no fluid, there is no conjunctival pallor. Throat is clear without any exudates, erythema, tonsillar enlargement or uvular deviation HEART: Regular rate and rhythm without murmur, clicks, rubs. No carotid bruits, pulses are equal in upper and lower extremities LUNGS:Lungs clear to auscultation, no wheezes, rales, crackles, chest moves symmetrically ABD:bowel sounds normal, soft, non-tender, no guarding, rebound, rigidity, no masses noted, no hepatosplenomegaly :No CVA tenderness, patient has urinary catheter draining yellow urine. MSCL: Non-tender, no muscle atrophy, muscles strength 5/5 upper and lower extremities, full range of motion. Patient incision looks clean and dry when bandage was partially removed. He has some erythema at the site extending beyond. Knee is warm but patient does not have a change from the rest of his body in terms warmth. Some slight swelling but no obvious significant effusion compared to the opposite leg. NEURO:CN 2-12 intact, sensation normal SKIN: See above Initial Vital Signs Initial Vital Signs: Vital Signs Temperature 102.5 F H 06/21/22 19:59 Pulse Rate 81 06/21/22 19:59 Respiratory Rate 22 06/21/22 19:59 Blood Pressure 128/60 06/21/22 19:59 Pulse Oximetry 95 06/21/22 19:59 Oxygen Delivery Method 06/21/22 19:59 Course Orders Ordered: ED Orders 06/21/22 21:45 XR knee LT 3V Stat 06/21/22 21:50 CT head/brain wo con Stat 06/21/22 22:50 Education, smoking cessation ONGOING 06/21/22 22:59 Consult to Physical Therapy Evaluate & Treat 06/21/22 23:00 Consult to Dietitian, Adult Routine Consult to Occupational Therapy Evaluate & Treat 06/21/22 23:04 Consult to Orthopedic Surgery Stat RT Consult Eval and Treat PRN 06/21/22 23:06 Sputum Culture Urgent 06/22/22 04:52 Basic Metabolic Panel DAILY Complete Blood Count AUTO DIFF DAILY Prothrombin Time INR DAILY 06/23/22 05:00 Basic Metabolic Panel DAILY Complete Blood Count AUTO DIFF DAILY Prothrombin Time INR DAILY Acetaminophen (Acetaminophen 325 Mg Tablet) 650 mg PO Q6H PRN PRN Reason: Fever/Mild Pain (1-3) Last Admin: 06/22/22 02:00 Dose: 650 mg Documented By: THOMAS Albuterol/Ipratropium (Albuterol/Ipratropium 3 Ml Ampul) 3 ml INH [id number] [facility] Atorvastatin Calcium (Atorvastatin 20 Mg Tablet) 20 mg PO BEDTIME [facility] Bupropion HCl (Bupropion Xl 150 Mg Tab) 150 mg PO DAILY [facility] Fluoxetine HCl (Fluoxetine 20 Mg Capsule) 20 mg PO DAILY [facility] Gabapentin (Gabapentin 300 Mg Capsule) 300 mg PO TID PRN PRN Reason: Muscle Spasm Last Admin: 06/22/22 02:00 Dose: 300 mg Documented By: THOMAS Sodium Chloride (Normal Saline 0.9%) 1,000 mls @ 40 mls/hr IV CONT ERIC Last Admin: 06/22/22 02:03 Dose: 40 mls/hr Documented By: THOMAS Metoprolol Succinate (Metoprolol Er 50 Mg Tablet) 50 mg PO DAILY [facility] Last Admin: 06/22/22 02:16 Dose: Not Given Documented By: THOMAS Naloxone HCl (Naloxone 0.4 Mg/Ml Vial) 0.2 mg IV Q2MIN PRN PRN Reason: Opiate Reversal Ondansetron HCl (Ondansetron 4 Mg/2 Ml Inj) 4 mg IV Q8HR PRN PRN Reason: Nausea And Vomiting Prednisone (Prednisone 20 Mg Tablet) 40 mg PO DAILY [facility] Stop: 06/29/22 08:59 Sennosides (Sennosides 8.6 Mg Tablet) 17.2 mg PO BEDTIME [facility] Tamsulosin HCl (Tamsulosin 0.4 Mg Capsule) 0.4 mg PO DAILY [facility] Discontinued Medications Acetaminophen (Acetaminophen 325 Mg Tablet) 975 mg PO NOW ONE Stop: 06/21/22 21:14 Last Admin: 06/21/22 21:21 Dose: 975 mg Documented By: DELANO Sodium Chloride (Normal Saline 0.9%) 1,000 mls @ 1,000 mls/hr IV BOLUS ONE Stop: 06/21/22 20:52 Last Infusion: 06/21/22 21:15 Dose: 0 mls/hr Documented By: Admin: 06/21/22 20:13 Dose: 1,000 mls/hr Documented By: DELANO Vancomycin HCl/Dextrose (Vancomycin) 1,500 mg in 300 mls @ 200 mls/hr IV NOW ONE Stop: 06/21/22 23:14 Last Infusion: 06/21/22 23:50 Dose: 0 mls/hr Documented By: Admin: 06/21/22 22:17 Dose: 200 mls/hr Documented By: DELANO Piperacillin Sod/Tazobactam (Sod 4.5 gm/ Sodium Chloride) 100 mls @ 200 mls/hr IV NOW ONE Stop: 06/21/22 21:46 Last Infusion: 06/22/22 02:06 Dose: 0 mls/hr Documented By: Admin: 06/21/22 22:20 Dose: 200 mls/hr Documented By: DELANO Vancomycin HCl/Dextrose (Vancomycin) 2,000 mg in 400 mls @ 200 mls/hr IV NOW ONE Stop: 06/22/22 00:59 Last Admin: 06/22/22 01:20 Dose: Not Given Documented By: THOMAS Sodium Chloride (Normal Saline 0.45%) 1,000 mls @ 40 mls/hr IV CONT ERIC Last Admin: 06/22/22 01:20 Dose: Not Given Documented By: THOMAS Non-Formulary Medication (Atorvastatin) 20 mg PO QPM ERIC Ondansetron HCl (Ondansetron 4 Mg/2 Ml Inj) 4 mg IV NOW PRN PRN Reason: Nausea And Vomiting Ondansetron HCl (Ondansetron 4 Mg Odt) 4 mg SL NOW PRN PRN Reason: Nausea And Vomiting Reevaluation(s) Reevaluation #1: Patient on recheck is alert, trying to boost himself. Reviewed all of patient's findings with , daughter patient. Time: 23:03 Consultations Consultation #1: Dr. Aponte, orthopedic surgery. Discussed patient appears to have pneumonia, he is only 2 days postop he hot all over can move his knee he has been walking on it making suspicion for septic joint lower but certainly possibility but appears to have a source on his chest x-ray also urine. They are happy to consult and follow. Along with the patient. Consultation #2: JOANIE Mora, Vital Signs Vital signs: Vital Signs - 8 hr 06/21/22 22:00 06/21/22 22:00 06/21/22 22:32 Pulse Rate 81 76 Respiratory Rate 34 H 30 H Blood Pressure 108/59 L Pulse Oximetry 93 91 06/21/22 22:40 06/21/22 22:40 06/21/22 23:00 Pulse Rate 75 75 Respiratory Rate 31 H 26 H Blood Pressure 100/55 L Pulse Oximetry 92 93 MDM - Altered Mental Status Lab Data Result diagrams: 06/22/22 04:52 06/22/22 04:52 Labs: Lab Results 06/21/22 06/21/22 06/21/22 Range/Units 19:48 19:48 19:48 WBC 5.2 (4.5-11.0) X10^3/uL RBC 4.29 L (4.5-5.9) X10^6/uL Hgb 11.2 L (13.5-17.5) g/dL Hct 34.2 L (41-53) % MCV 79.8 L (80-100) fL MCH 26.1 (26-34) PG MCHC 32.7 (30-36) % RDW 23.2 H (11.6-14.8) % Plt Count 157 (150-400) X10^3/uL Neut % (Auto) 77.8 H (50-75) % Lymph % (Auto) 8.5 L (25-40) % Bath % (Auto) 13.5 (3-14) % Eos % (Auto) 0.0 L (2-4) % Baso % (Auto) 0.2 (0-2) % Neut # (Auto) 4000 (5832-3254) /uL Lymph # (Auto) 400 L (4666-4173) /uL Bath # (Auto) 700 (0-900) /uL Eos # (Auto) 0 (0-450) /uL Baso # (Auto) 0 (0-100) /uL RBC Morphology Not Reportable Hypochromasia 1+ H Anisocytosis 3+ H Microcytosis 1+ H Stomatocytes 1+ H PT 28.9 H (10.1-12.7) SECONDS INR 2.5 H (0.9-1.3) APTT 80 H* (26-36) SECONDS Sodium (137-145) mmol/L Potassium (3.4-5.1) mmol/L Chloride (98-107) mmol/L Carbon Dioxide (22-32) mmol/L BUN (9-20) mg/dL Creatinine (0.66-1.25) mg/dL Estimated GFR (>60) mL/min BUN/Creatinine Ratio (6-22) Glucose (80-110) mg/dL Lactate (0.7-2.1) mmol/L Calcium (8.4-10.2) mg/dL Magnesium (1.6-2.3) mg/dL Total Bilirubin (0.2-1.3) mg/dL AST (17-59) IU/L ALT (<50) IU/L Alkaline Phosphatase (38-126) U/L C-Reactive Protein (<1.0) mg/dL Total Protein (6.3-8.2) g/dL Albumin (3.5-5.0) g/dL Globulin (1.7-4.1) g/dL Albumin/Globulin Ratio (1.0-2.8) Lipase (23-300) U/L Procalcitonin (<0.5) ng/mL Urine Color Urine Appearance Urine pH (4.5-8.0) Ur Specific Hamilton (1.000-1.035) Urine Protein (Negative) Urine Glucose (UA) (Negative) g/dL Urine Ketones (NEGATIVE) Urine Occult Blood (Negative) Urine Nitrate (Negative) Urine Bilirubin (NEGATIVE) Ur Bilirubin Confirm (Negative) Urine Urobilinogen (0.2) E.U./dL Ur Leukocyte Esterase (NEGATIVE) Urine RBC (0-5/HPF) Urine WBC (0-5/HPF) Amorphous Sediment Urine Bacteria (None) Ur Culture Indicated? Chlamy pneumoniae PCR Not detected (Not Detect) Adenovirus (PCR) Not detected (Not Detect) B. pertussis DNA (PCR) Not detected (Not Detecte) B.parapertussis DNA PCR Not detected (Not Detecte) Coronavirus OC43 (PCR) Not detected (Not Detect) Coronavirus HKU1 (PCR) Not detected (Not Detect) Coronavirus 229E (PCR) Not detected (Not Detect) SARS-CoV-2 (PCR) Not detected (Not Detecte) Coronavirus NL63 (PCR) Not detected (Not Detect) Human Metapneumovir PCR Not detected (Not Detect) Influenza Type A (PCR) Not detected (Not Detect) Influenza Type B (PCR) Not detected (Not Detect) M. pneumoniae (PCR) Not detected (Not Detect) Parainfluenza 1 (PCR) Not detected (Not Detect) Parainfluenza 2 (PCR) Not detected (Not Detect) Parainfluenza 3 (PCR) Not detected (Not Detect) Parainfluenza 4 (PCR) Not detected (Not Detect) RSV (PCR) Not detected (Not Detect) Entero/Rhino (PCR) Not detected (Not Detect) 06/21/22 06/21/22 06/21/22 Range/Units 19:48 19:48 19:48 WBC (4.5-11.0) X10^3/uL RBC (4.5-5.9) X10^6/uL Hgb (13.5-17.5) g/dL Hct (41-53) % MCV (80-100) fL MCH (26-34) PG MCHC (30-36) % RDW (11.6-14.8) % Plt Count (150-400) X10^3/uL Neut % (Auto) (50-75) % Lymph % (Auto) (25-40) % Bath % (Auto) (3-14) % Eos % (Auto) (2-4) % Baso % (Auto) (0-2) % Neut # (Auto) (8184-5377) /uL Lymph # (Auto) (5294-1924) /uL Bath # (Auto) (0-900) /uL Eos # (Auto) (0-450) /uL Baso # (Auto) (0-100) /uL RBC Morphology Hypochromasia Anisocytosis Microcytosis Stomatocytes PT (10.1-12.7) SECONDS INR (0.9-1.3) APTT (26-36) SECONDS Sodium 133 L (137-145) mmol/L Potassium 3.7 (3.4-5.1) mmol/L Chloride 99 (98-107) mmol/L Carbon Dioxide 23 (22-32) mmol/L BUN 18 (9-20) mg/dL Creatinine 1.05 (0.66-1.25) mg/dL Estimated GFR > 60 (>60) mL/min BUN/Creatinine Ratio 17.1 (6-22) Glucose 106 (80-110) mg/dL Lactate 1.0 (0.7-2.1) mmol/L Calcium 8.1 L (8.4-10.2) mg/dL Magnesium 1.9 (1.6-2.3) mg/dL Total Bilirubin 1.1 (0.2-1.3) mg/dL AST 52 (17-59) IU/L ALT 26 (<50) IU/L Alkaline Phosphatase 70 (38-126) U/L C-Reactive Protein (<1.0) mg/dL Total Protein 7.3 (6.3-8.2) g/dL Albumin 3.8 (3.5-5.0) g/dL Globulin 3.5 (1.7-4.1) g/dL Albumin/Globulin Ratio 1.1 (1.0-2.8) Lipase 24 (23-300) U/L Procalcitonin 0.23 (<0.5) ng/mL Urine Color Urine Appearance Urine pH (4.5-8.0) Ur Specific Hamilton (1.000-1.035) Urine Protein (Negative) Urine Glucose (UA) (Negative) g/dL Urine Ketones (NEGATIVE) Urine Occult Blood (Negative) Urine Nitrate (Negative) Urine Bilirubin (NEGATIVE) Ur Bilirubin Confirm (Negative) Urine Urobilinogen (0.2) E.U./dL Ur Leukocyte Esterase (NEGATIVE) Urine RBC (0-5/HPF) Urine WBC (0-5/HPF) Amorphous Sediment Urine Bacteria (None) Ur Culture Indicated? Chlamy pneumoniae PCR (Not Detect) Adenovirus (PCR) (Not Detect) B. pertussis DNA (PCR) (Not Detecte) B.parapertussis DNA PCR (Not Detecte) Coronavirus OC43 (PCR) (Not Detect) Coronavirus HKU1 (PCR) (Not Detect) Coronavirus 229E (PCR) (Not Detect) SARS-CoV-2 (PCR) (Not Detecte) Coronavirus NL63 (PCR) (Not Detect) Human Metapneumovir PCR (Not Detect) Influenza Type A (PCR) (Not Detect) Influenza Type B (PCR) (Not Detect) M. pneumoniae (PCR) (Not Detect) Parainfluenza 1 (PCR) (Not Detect) Parainfluenza 2 (PCR) (Not Detect) Parainfluenza 3 (PCR) (Not Detect) Parainfluenza 4 (PCR) (Not Detect) RSV (PCR) (Not Detect) Entero/Rhino (PCR) (Not Detect) 06/21/22 06/21/22 Range/Units 19:48 20:22 WBC (4.5-11.0) X10^3/uL RBC (4.5-5.9) X10^6/uL Hgb (13.5-17.5) g/dL Hct (41-53) % MCV (80-100) fL MCH (26-34) PG MCHC (30-36) % RDW (11.6-14.8) % Plt Count (150-400) X10^3/uL Neut % (Auto) (50-75) % Lymph % (Auto) (25-40) % Bath % (Auto) (3-14) % Eos % (Auto) (2-4) % Baso % (Auto) (0-2) % Neut # (Auto) (2617-6428) /uL Lymph # (Auto) (1881-5120) /uL Bath # (Auto) (0-900) /uL Eos # (Auto) (0-450) /uL Baso # (Auto) (0-100) /uL RBC Morphology Hypochromasia Anisocytosis Microcytosis Stomatocytes PT (10.1-12.7) SECONDS INR (0.9-1.3) APTT (26-36) SECONDS Sodium (137-145) mmol/L Potassium (3.4-5.1) mmol/L Chloride (98-107) mmol/L Carbon Dioxide (22-32) mmol/L BUN (9-20) mg/dL Creatinine (0.66-1.25) mg/dL Estimated GFR (>60) mL/min BUN/Creatinine Ratio (6-22) Glucose (80-110) mg/dL Lactate (0.7-2.1) mmol/L Calcium (8.4-10.2) mg/dL Magnesium (1.6-2.3) mg/dL Total Bilirubin (0.2-1.3) mg/dL AST (17-59) IU/L ALT (<50) IU/L Alkaline Phosphatase (38-126) U/L C-Reactive Protein 7.5 H (<1.0) mg/dL Total Protein (6.3-8.2) g/dL Albumin (3.5-5.0) g/dL Globulin (1.7-4.1) g/dL Albumin/Globulin Ratio (1.0-2.8) Lipase (23-300) U/L Procalcitonin (<0.5) ng/mL Urine Color Yellow Urine Appearance Cloudy Urine pH 5.0 (4.5-8.0) Ur Specific Hamilton 1.025 (1.000-1.035) Urine Protein 2+ H (Negative) Urine Glucose (UA) Negative (Negative) g/dL Urine Ketones 2+ H (NEGATIVE) Urine Occult Blood 3+ H (Negative) Urine Nitrate Negative (Negative) Urine Bilirubin 1+ H (NEGATIVE) Ur Bilirubin Confirm Negative (Negative) Urine Urobilinogen 1.0 (0.2) E.U./dL Ur Leukocyte Esterase Trace H (NEGATIVE) Urine RBC 10-30/hpf H (0-5/HPF) Urine WBC None seen (0-5/HPF) Amorphous Sediment 4+ Urine Bacteria None seen (None) Ur Culture Indicated? Cult not indicated Chlamy pneumoniae PCR (Not Detect) Adenovirus (PCR) (Not Detect) B. pertussis DNA (PCR) (Not Detecte) B.parapertussis DNA PCR (Not Detecte) Coronavirus OC43 (PCR) (Not Detect) Coronavirus HKU1 (PCR) (Not Detect) Coronavirus 229E (PCR) (Not Detect) SARS-CoV-2 (PCR) (Not Detecte) Coronavirus NL63 (PCR) (Not Detect) Human Metapneumovir PCR (Not Detect) Influenza Type A (PCR) (Not Detect) Influenza Type B (PCR) (Not Detect) M. pneumoniae (PCR) (Not Detect) Parainfluenza 1 (PCR) (Not Detect) Parainfluenza 2 (PCR) (Not Detect) Parainfluenza 3 (PCR) (Not Detect) Parainfluenza 4 (PCR) (Not Detect) RSV (PCR) (Not Detect) Entero/Rhino (PCR) (Not Detect) Imaging Data CT scan - head: Radiologist's Impression: Krunal Mahmood?(Ehsan)??77??M??1945 ? Allergy/Adv: No Known Drug Allergies (More??) Close Head CT (Signed) HernandezPrince - 06/21/22 Knee X-Ray (Signed) Hernandez,Prince - 06/21/22 Chest X-Ray (Signed) Hernandez,Prince - 06/21/22 Knee X-Ray (Signed) Ady Estrada - 06/19/22 Outside Echo 06/17/22 Knee X-Ray (Signed) Bharath May - 05/20/22 Knee X-Ray (Signed) HernandezPrince brizuela - 05/20/22 Ribs X-Ray (Signed) Dony Pritchett - 02/03/21 Ankle X-Ray (Signed) Marybel Cuba - 06/08/19 Foot X-Ray (Signed) CubaMarybel - 06/08/19 Knee X-Ray (Signed) Lori Caballero - 09/06/18 Outside EKG 08/18/18 Knee MRI (Signed) HernandezPrince - 08/09/18 Abdomen/Pelvis CT (Signed) Tereza Bangura - 03/08/18 Echocardiogram Ultrasound (Signed) Jacqueline Johnson - 02/06/18 Telemetry Strips 02/05/18 Chest X-Ray (Signed) Yahaira Coronado - 02/05/18 Launch?[place] [address] CT Scan Report Signed Patient: Krunal Mahmood MR#: [id number] : 1945 Acct:[id number] Age/Sex: 77 / M Date of Service: 06/21/22 Loc: ED Accession Number: [id number] ?? Procedure: CT head/brain wo con Ordering Provider: Debbie Land D.O. PROCEDURE:? CT HEAD/BRAIN WO CON ? INDICATIONS:? fever, confusion, pneumonia ? TECHNIQUE:? Noncontrast 4.5 mm thick angled axial sections acquired from the foramen magnum to the vertex, with coronal and sagittal reformats.? For radiation dose reduction, the following was used:? automated exposure control, adjustment of mA and/or kV according to patient size.? ? COMPARISON:? None. ? FINDINGS:? Image quality:? Excellent.? ? CSF spaces:? Basal cisterns are patent.? No extra-axial fluid collections.? The ventricles are symmetric in size and shape.? There is mild cerebral volume loss, with resultant ventricular and sulcal prominence.? ? Brain:? No intracranial hemorrhage, mass, or mass effect.? There are subcortical, periventricular and deep white matter hypodensities consistent with mild chronic small vessel ischemic changes.? The aviles-white matter junction appears preserved.? There is intracranial internal carotid artery atherosclerosis.? ? Skull and face:? Calvarium and visualized facial bones are intact, without suspicious lesions.? ? Sinuses:? Visualized sinuses demonstrate postsurgical changes consistent with prior sinus surgery.? There is mucosal thickening within the ethmoid sinuses bilaterally.? Mastoid air cells are clear. ? IMPRESSION:? ? 1. No acute intracranial abnormality. ? 2. Mild chronic white matter small vessel ischemic changes and cerebral volume loss. ? ? Dictated by: Prince Hernandez M.D. on 06/21/2022 at 22:40 ? ? Approved by: Prince Hernandez M.D. on 06/21/2022 at 22:49?? Extremity x-ray #1: Radiologist's Impression: Close Head CT (Signed) Prince Hernandez - 06/21/22 Knee X-Ray (Signed) Prince Hernandez - 06/21/22 Chest X-Ray (Signed) Prince Hernandez - 06/21/22 Knee X-Ray (Signed) Ady Estrada - 06/19/22 Outside Echo 06/17/22 Knee X-Ray (Signed) Bharath May - 05/20/22 Knee X-Ray (Signed) Prince Hernandez - 05/20/22 Ribs X-Ray (Signed) Dony Pritchett - 02/03/21 Ankle X-Ray (Signed) Marybel Cuba - 06/08/19 Foot X-Ray (Signed) Marybel Cuba - 06/08/19 Knee X-Ray (Signed) Lori Caballero - 09/06/18 Outside EKG 08/18/18 Knee MRI (Signed) Prince Hernandez - 08/09/18 Abdomen/Pelvis CT (Signed) Tereza Bangura - 03/08/18 Echocardiogram Ultrasound (Signed) Jacqueline Johnson - 02/06/18 Telemetry Strips 02/05/18 Chest X-Ray (Signed) IvonneJustin mcmanuspeter - 02/05/18 Launch?[facility] [address] [address] XRay Report Signed Patient: Krunal Mahmood MR#: [id number] : 1945 Acct:[id number] Age/Sex: 77 / M Date of Service: 06/21/22 Loc: ED Accession Number: [id number] ?? Procedure: XR knee LT 3V Ordering Provider: Debbie Land D.O. PROCEDURE:? XR KNEE LT 3V ? INDICATIONS:? s/p left knee surgery ? TECHNIQUE:? 4 views of the knee were acquired.? ? COMPARISON:? [facility], CR, XR CHEST 1V, 06/21/2022, 20:24.? [facility], CR, XR KNEE LT 3V, 05/20/2022, 15:36.? [facility], CR, XR KNEE LT 1TO2V, 05/20/2022, 22:04.? [facility], CR, XR KNEE LT 1TO2V, 06/19/2022, 13:20. ? FINDINGS:? ? Bones:? A right knee prosthesis is redemonstrated without change in alignment.? No fracture or dislocation.? No suspicious periprosthetic lucencies. ? Soft tissues:? There is a persistent moderate joint effusion with interval resolution of intra-articular gas seen on the prior study.? Persistent periarticular soft tissue swelling is also demonstrated. ? ? IMPRESSION:? ? 1. No fracture or dislocation. ? 2. No definite evidence of hardware failure. ? 3. Moderate joint effusion and periarticular soft tissue swelling with resolution of intra-articular gas seen on the prior study.? ? Dictated by: Prince Hernandez M.D. on 06/21/2022 at 22:24 ? ? Approved by: Prince Hernandez M.D. on 06/21/2022 at 22:27?? Chest x-ray: Radiologist's Impression: Close Head CT (Signed) Prince Hernandez - 06/21/22 Knee X-Ray (Signed) Prince Hernandez - 06/21/22 Chest X-Ray (Signed) Hernandez,Prince - 06/21/22 Knee X-Ray (Signed) Ady Estrada - 06/19/22 Outside Echo 06/17/22 Knee X-Ray (Signed) Bharath May - 05/20/22 Knee X-Ray (Signed) HernandezPrince brizuela - 05/20/22 Ribs X-Ray (Signed) Dony Pritchett - 02/03/21 Ankle X-Ray (Signed) Marybel Cuba - 06/08/19 Foot X-Ray (Signed) Marybel Cuba - 06/08/19 Knee X-Ray (Signed) GangamendezLori - 09/06/18 Outside EKG 08/18/18 Knee MRI (Signed) Prince Hernandez - 08/09/18 Abdomen/Pelvis CT (Signed) Tereza Bangura - 03/08/18 Echocardiogram Ultrasound (Signed) Jacqueline Johnson - 02/06/18 Telemetry Strips 02/05/18 Chest X-Ray (Signed) Yahaira Coronado - 02/05/18 Launch?[place] [address] XRay Report Signed Patient: Krunal Mahmood MR#: [id number] : 1945 Acct:[id number] Age/Sex: 77 / M Date of Service: 06/21/22 Loc: ED Accession Number: [id number] ?? Procedure: XR chest 1V Ordering Provider: Debbie Land D.O. PROCEDURE:? XR CHEST 1V ? INDICATIONS:? suspected sepsis ? TECHNIQUE:? One view of the chest was acquired.? ? COMPARISON:? [facility], CR, XR CHEST 1V, 02/05/2018, 15:40. ? FINDINGS:? ? Surgical changes and devices:? None.? ? Lungs and pleura:? There are increased confluent left basilar opacities likely representing consolidation due to pneumonia given clinical history.? There is a small left pleural effusion.? Right lung is clear.? No pneumothorax. ? Mediastinum:? Mediastinal contours appear unchanged.? Heart size is normal.? ? Bones and chest wall:? No suspicious bony lesions.? Overlying soft tissues appear unremarkable.? ? IMPRESSION:? ? 1. Confluent left basilar opacities likely representing consolidation due to pneumonia given clinical history. ? 2. Small left pleural effusion ? ? Dictated by: Prince Hernandez M.D. on 06/21/2022 at 21:26 ? ? Approved by: Prince Hernandez M.D. on 06/21/2022 at 21:27?? ECG Data Attestation: I personally reviewed and interpreted this ECG as follows: Interpretation: Sinus rhythm rate 81 AR 156 QRS of [address]TC [address] No acute [address] changes appreciated. MDM Narrative Medical decision making narrative: This is a 77-year-old male with fever reported confusion although his mentation is appropriate here. Head CT negative for concern for mentation change on thinner, chest x-ray shows pneumonia, he is generally can not appreciate his knee that he had surgery on 2 days ago is hot versus the left his incision looks good. Labs overall are reassuring, blood cultures are pending, respiratory panel is negative we will cover for pneumonia as well as potential infection in the leg. Patient does not appear to have meningitis. Patient has fever but technically has not met any septic criteria, he is not been her rate greater than 90, white count is 5, respiratory rate is not elevated. Plan for admission for watchful waiting, consultation with Orthopedic surgery, IV antibiotics. Patient accepted by JOAN[facility] Mora, case was also discussed with Dr. Aponte from Orthopedic surgery they will see the patient and follow along. Discharge Plan Departure Patient Disposition: Admitted as Observation Clinical Impression: Pneumonia, S/P knee surgery, Fever, Acute urinary retention Admit Date/Time: 06/21/22 23:23 Admit Provider: Kamila Mora
--- NOTE | 2022-06-21 21:45 | DI.RAD.S_ITS ---
PROCEDURE: XR KNEE LT 3V INDICATIONS: s/p left knee surgery TECHNIQUE: 4 views of the knee were acquired. COMPARISON: [facility], CR, XR CHEST 1V, 06/21/2022, 20:24. [facility], CR, XR KNEE LT 3V, 05/20/2022, 15:36. [facility], CR, XR KNEE LT 1TO2V, 05/20/2022, 22:04. [facility], CR, XR KNEE LT 1TO2V, 06/19/2022, 13:20. FINDINGS: Bones: A right knee prosthesis is redemonstrated without change in alignment. No fracture or dislocation. No suspicious periprosthetic lucencies. Soft tissues: There is a persistent moderate joint effusion with interval resolution of intra-articular gas seen on the prior study. Persistent periarticular soft tissue swelling is also demonstrated. IMPRESSION: 1. No fracture or dislocation. 2. No definite evidence of hardware failure. 3. Moderate joint effusion and periarticular soft tissue swelling with resolution of intra-articular gas seen on the prior study. Dictated by: Prince Hernandez M.D. on 06/21/2022 at 22:24 Approved by: Prince Hernandez M.D. on 06/21/2022 at 22:27
--- NOTE | 2022-06-21 21:50 | PC.NURSE ---
xray at bedside
--- NOTE | 2022-06-21 21:50 | DI.CT.S_ITS ---
PROCEDURE: CT HEAD/BRAIN WO CON INDICATIONS: fever, confusion, pneumonia TECHNIQUE: Noncontrast 4.5 mm thick angled axial sections acquired from the foramen magnum to the vertex, with coronal and sagittal reformats. For radiation dose reduction, the following was used: automated exposure control, adjustment of mA and/or kV according to patient size. COMPARISON: None. FINDINGS: Image quality: Excellent. CSF spaces: Basal cisterns are patent. No extra-axial fluid collections. The ventricles are symmetric in size and shape. There is mild cerebral volume loss, with resultant ventricular and sulcal prominence. Brain: No intracranial hemorrhage, mass, or mass effect. There are subcortical, periventricular and deep white matter hypodensities consistent with mild chronic small vessel ischemic changes. The aviles-white matter junction appears preserved. There is intracranial internal carotid artery atherosclerosis. Skull and face: Calvarium and visualized facial bones are intact, without suspicious lesions. Sinuses: Visualized sinuses demonstrate postsurgical changes consistent with prior sinus surgery. There is mucosal thickening within the ethmoid sinuses bilaterally. Mastoid air cells are clear. IMPRESSION: 1. No acute intracranial abnormality. 2. Mild chronic white matter small vessel ischemic changes and cerebral volume loss. Dictated by: Prince Hernandez M.D. on 06/21/2022 at 22:40 Approved by: Prince Hernandez M.D. on 06/21/2022 at 22:49
[2022-06-21 22:12] LABS: Appearance Urine UA CLOUDY; Bilirubin Urine UA 1+ (NEGATIVE); Color Urine UA YELLOW; Glucose Urine UA NEGATIVE (Negative); Ketones Urine UA 2+ (NEGATIVE); Leukocyte Esterase Urine UA TRACE (NEGATIVE); Nitrite Urine UA NEGATIVE (Negative); Occult Blood Urine UA 3+ (Negative); Protein Urine UA 2+ (Negative); Specific Gravity Urine UA 1.025 (1.000-1.035)
--- NOTE | 2022-06-21 22:15 | PC.NURSE ---
to CT via stretcher with tech
[2022-06-21] MEDS: VANCOMYCIN 1,500 MG/300 ML PIGGYBACK 200 MG IV (22:17)
[2022-06-21] MEDS: PIPERACILLIN/TAZO 4.5 GM in SODIUM CHLORIDE 0.9% 100 ML IV (22:20)
[2022-06-21 22:22] LABS: Ictotest Urine Negative (Negative)
--- NOTE | 2022-06-21 22:30 | PC.NURSE ---
returns to the room via stretcher with tech
[2022-06-21 22:33] LABS: RBC Urine 10-30/HPF (0-5/HPF); WBC Urine None Seen (0-5/HPF)
[2022-06-21 22:34] LABS: Amorphous Sediment Urine 4+; Bacteria Urine None Seen; Culture Indicated Urine Cult Not Indicated
--- NOTE | 2022-06-21 23:00 | PC.NURSE ---
family states voices concern that the patient's medication box was brought to the ER by the medics but they have not seen it - medics were called and stated that they left it at the home where they picked up the patient - family informed
--- NOTE | 2022-06-21 23:09 | P.HP_ITS ---
History of Present Illness History of Present Illness Date Patient Seen: 06/21/22 Time Patient Seen: 23:09 Chief complaint: Altered Narrative: Krunal Mahmood is a 77-year-old male on Xarelto for atrial fibrillation, essential hypertension, sleep apnea with CPAP, psoriasis, hyperlipidemia, and obesity who had a revision of left knee due to dislocation and previous total left knee who presented to the ED with fever, he had been seen the day prior in the ED for acute urinary retention had a catheter placed and was discharged home on tamsulosin. The patients advised the ED that she did not appreciate any weakness but perhaps some mild confusion. Patient denies chest pain, shortness of breath, abd pain,nausea, vomiting. Patient advised the ED he is having bowel movements no diarrhea black or bloody stools.?But he reported on admit to no BM since 06/19 prior to surgery. Catheter has been in place draining well, denied decrease in urine output.? No lateralizing weakness.? No slurred speech appreciated.? Denies s/p left knee redness, warmth, or inflammation.? Denies cough,cold, congestive symptoms, and is fully vaccinated for flu, COVID, pneu monia. Dr. Aranda in [place] is PCP.? Dr. Wilkes is cardiology in [place]. On admit to the floor patient is stable in no distress denies pain or discomfort at this time. Patient is febrile 102.5, BP 128/60, HR 81, RR 22, O2 saturation 95% on room air. Patient's H&H is stable 11.2/34.2, sodium 133, calcium 8.1, patient does have a supratherapeutic INR PT 28.9, INR 2.5, PTT 80, lactate, pro calcitonin, and respiratory panel are all WNL. Patient's chest x-ray demonstrates confluent left basilar opacities, and small left pleural effusion. Patient admitted for left lobe pneumonia, supratherapeutic INR status post left knee revision. Dr. Aponte orthopedics was consulted in ED and is aware of patient. Patient History Medical History Alcoholism Anxiety Atrophic gastritis Chronic low back pain Cyst in hand (~2019) Depression Diverticulosis Dizziness Erectile dysfunction Hearing impaired History of colon polyps HTN (hypertension) Hydronephrosis Hyperlipidemia Insomnia Ischemia Nephrolithiasis YAIMA on CPAP Osteoarthritis Paroxysmal atrial fibrillation Paroxysmal atrial flutter Prediabetes Psoriasis Psoriatic arthritis Psoriatic arthropathy Retroperitoneal mass RLS (restless legs syndrome) Sinus congestion Syncope Testosterone deficiency Vitamin D deficiency Surgical History History of ear, nose, and throat (ENT) surgery History of surgery (05/20/22) History of total left knee replacement (TKR) History of total right knee replacement (09/06/18) Hx of bilateral cataract extraction Hx of hernia repair Hx of lithotripsy Hx of tonsillectomy Family & Social History Family History Father No problems noted. Mother No problems noted. Brother No problems noted. Sister No problems noted. Social History: household members spouse Safety & Behavioral: Feels Safe in Current Yes Environment Been Physically Hurt or No Threatened By a Person Tobacco & Substance use: Smoking Status Never smoker alcohol intake current alcohol intake frequency 0-2 drinks per day Substance Use Type does not use Meds Home Medications and Allergies Home Medications Medication Instructions Recorded Confirmed Type atorvastatin 10 mg tablet 20 mg PO QPM 02/05/18 06/22/22 History bupropion HCl 150 mg 24 hr tablet, 150 mg PO DAILY 02/05/18 06/22/22 History extended release gabapentin 300 mg capsule 600 mg PO BEDTIME 02/05/18 06/22/22 History methotrexate sodium 2.5 mg tablet 7.5 mg PO SEEINSTR 02/05/18 06/22/22 History metoprolol succinate 50 mg 50 mg PO QAM 02/05/18 06/22/22 History tablet,extended release 24 hr fluoxetine 20 mg capsule 20 mg PO DAILY 09/02/18 06/22/22 History vit C 250 mg-vit E 90 mg-zinc 40 1 tab PO BID 06/15/22 06/22/22 History mg-copper 1 [id number] capsule (PreserVision AREDS-2) oxycodone 5 mg tablet 5 mg PO Q4HR PRN Moderate to 06/19/22 06/22/22 Rx severe postop pain #40 tabs rivaroxaban 20 mg tablet (Xarelto) 20 mg PO QPM #30 tabs 06/19/22 06/22/22 Rx tamsulosin 0.4 mg capsule (Flomax) 0.4 mg PO DAILY #30 caps 06/20/22 06/22/22 Rx Allergies Allergy/AdvReac Type Severity Reaction Status Date / Time No Known Drug Allergies Allergy Verified 06/20/22 10:23 Review of Systems Review of Systems Narrative: All 12 point systems reviewed with the patient and are negative except otherwise documented. Exam Vital Signs (past 8 hours): - 06/21/22 19:59 06/21/22 21:21 Temperature 102.5 F H 102 F H Pulse Rate 81 Respiratory Rate 22 Blood Pressure 128/60 Pulse Oximetry 95 Oxygen Delivery Method Room Air Oxygen Delivery Method Room Air Narrative Exam Narrative: General: Patient is a well-developed, well-nourished in no distress at this time. HEENT: Normocephalic, atraumatic, extraocular muscles intact, oral pharynx is clear and mucous membranes are moist. Neck is supple and symmetric, trachea is midline, no adenopathy, no thyroid enlargement, nontender, no masses palpated. Negative for JVD Chest: Normal AP diameter and contour without kyphoscoliosis, no nasal flaring, retractions, or labored breathing. Lungs: Auscultation of all lung brandt are decreased coarse occasional crackles in bilateral bases, shallow breathing. Cardio: regular rate and rhythm without murmur, rubs, or gallops, no carotid bruit, no cardiac pulsations present. Abdomen: Soft nontender, negative for organomegaly, or masses. Bowel sounds are present in all 4 quadrants without guarding or rebound, no CVA tenderness. Musculoskeletal: Muscle strength and tone are equal within normal limits, no deformity, crepitus, effusions, cyanosis, clubbing or edema present. Full range of motion intact radial and pedal pulses are normal. Patient incision looks clean and dry when bandage was partially removed.? He has some erythema at the site extending beyond.? Knee is warm but patient does not have a change from the rest of his body in terms warmth.? Some slight swelling but no obvious significant effusion compared to the opposite leg. Skin: Warm dry and intact without rashes, ulcerations or petechiae. Neuro: Alert and orientated x3, strength is +5/5 in all extremities, sensation to touch intact, no gross deficits noted of cranial nerves. Psych: Patient has a well-kept appearance, appropriate affect, mental status attitude thought context and judgment are appropriate for age. Objective Labs Result Diagrams: 06/21/22 19:48 06/21/22 19:48 Labs: Laboratory Results - last 24 hr 06/21/22 06/21/22 06/21/22 19:48 19:48 19:48 WBC 5.2 RBC 4.29 L Hgb 11.2 L Hct 34.2 L MCV 79.8 L MCH 26.1 MCHC 32.7 RDW 23.2 H Plt Count 157 Neut % (Auto) 77.8 H Lymph % (Auto) 8.5 L Mora % (Auto) 13.5 Eos % (Auto) 0.0 L Baso % (Auto) 0.2 Neut # (Auto) 4000 Lymph # (Auto) 400 L Mora # (Auto) 700 Eos # (Auto) 0 Baso # (Auto) 0 RBC Morphology Not Reportable Hypochromasia 1+ H Anisocytosis 3+ H Microcytosis 1+ H Stomatocytes 1+ H PT 28.9 H INR 2.5 H APTT 80 H* Sodium Potassium Chloride Carbon Dioxide BUN Creatinine Estimated GFR BUN/Creatinine Ratio Glucose Lactate Calcium Total Bilirubin AST ALT Alkaline Phosphatase Total Protein Albumin Globulin Albumin/Globulin Ratio Lipase Procalcitonin Urine Color Urine Appearance Urine pH Ur Specific Penrose Urine Protein Urine Glucose (UA) Urine Ketones Urine Occult Blood Urine Nitrate Urine Bilirubin Ur Bilirubin Confirm Urine Urobilinogen Ur Leukocyte Esterase Urine RBC Urine WBC Amorphous Sediment Urine Bacteria Ur Culture Indicated? Chlamy pneumoniae PCR Not detected Adenovirus (PCR) Not detected B. pertussis DNA (PCR) Not detected B.parapertussis DNA PCR Not detected Coronavirus OC43 (PCR) Not detected Coronavirus HKU1 (PCR) Not detected Coronavirus 229E (PCR) Not detected SARS-CoV-2 (PCR) Not detected Coronavirus NL63 (PCR) Not detected Human Metapneumovir PCR Not detected Influenza Type A (PCR) Not detected Influenza Type B (PCR) Not detected M. pneumoniae (PCR) Not detected Parainfluenza 1 (PCR) Not detected Parainfluenza 2 (PCR) Not detected Parainfluenza 3 (PCR) Not detected Parainfluenza 4 (PCR) Not detected RSV (PCR) Not detected Entero/Rhino (PCR) Not detected 06/21/22 06/21/2206/21/22 19:48 19:48 20:22 WBC RBC Hgb Hct MCV MCH MCHC RDW Plt Count Neut % (Auto) Lymph % (Auto) Mora % (Auto) Eos % (Auto) Baso % (Auto) Neut # (Auto) Lymph # (Auto) Mora # (Auto) Eos # (Auto) Baso # (Auto) RBC Morphology Hypochromasia Anisocytosis Microcytosis Stomatocytes PT INR APTT Sodium 133 L Potassium 3.7 Chloride 99 Carbon Dioxide 23 BUN 18 Creatinine 1.05 Estimated GFR > 60 BUN/Creatinine Ratio 17.1 Glucose 106 Lactate 1.0 Calcium 8.1 L Total Bilirubin 1.1 AST 52 ALT 26 Alkaline Phosphatase 70 Total Protein 7.3 Albumin 3.8 Globulin 3.5 Albumin/Globulin Ratio 1.1 Lipase 24 Procalcitonin 0.23 Urine Color Yellow Urine Appearance Cloudy Urine pH 5.0 Ur Specific Penrose 1.025 Urine Protein 2+ H Urine Glucose (UA) Negative Urine Ketones 2+ H Urine Occult Blood 3+ H Urine Nitrate Negative Urine Bilirubin 1+ H Ur Bilirubin Confirm Negative Urine Urobilinogen 1.0 Ur Leukocyte Esterase Trace H Urine RBC 10-30/hpf H Urine WBC None seen Amorphous Sediment 4+ Urine Bacteria None seen Ur Culture Indicated? Cult not indicated Chlamy pneumoniae PCR Adenovirus (PCR) B. pertussis DNA (PCR) B.parapertussis DNA PCR Coronavirus OC43 (PCR) Coronavirus HKU1 (PCR) Coronavirus 229E (PCR) SARS-CoV-2 (PCR) Coronavirus NL63 (PCR) Human Metapneumovir PCR Influenza Type A (PCR) Influenza Type B (PCR) M. pneumoniae (PCR) Parainfluenza 1 (PCR) Parainfluenza 2 (PCR) Parainfluenza 3 (PCR) Parainfluenza 4 (PCR) RSV (PCR) Entero/Rhino (PCR) Assessment & Plan Assessment & Plan narrative: Krunal Mahmood is a 77-year-old male on Xarelto for atrial fibrillation, essential hypertension, sleep apnea with CPAP, psoriasis, hyperlipidemia, and obesity who had a revision of left knee due to dislocation and previous total left knee who presented to the ED with fever, he had been seen the day prior in the ED for acute urinary retention had a catheter placed and was discharged home on tamsulosin. The patient's returned him to the ER today due to concerns regarding possible increasing confusion and fever. Patient admitted for left lobe pneumonia, acute urinary retention, supratherapeutic INR status post left knee revision 1. Left lobe pneumonia, acute, present on admission without hypoxia -patient has only a sofa score: 2, mild tachypnea RR 22, and febrile 102.5. Kirt justice is not requiring oxygen support at this time. This appears to be a viral pneumonia as inflammatory markers for bacterial infection including WBC are all unremarkable. -chest x-ray demonstrates confluent left basilar opacities, and small left pleural effusion. -respiratory consult, sputum culture ordered, DuoNebs q.4 hours while awake, incentive spirometry, prednisone 40 mg p.o. q.day 2. Supratherapeutic INR, acute, secondary to paroxysmal atrial fibrillation on chronic Xarelto, present on admission -INR PT 28.9, INR 2.5, PTT 80- on admit -Holding Xeralto -repeat INR -No VTE medication-contraindicate -monitor for bleeding -continue metoprolol 3. Urinary retention, acute, status post left knee revision, present on admission -patient continues to have Mora catheter in place -urine culture ordered -continue Flomax -bladder scan is -patient scheduled to follow-up outpatient with urology 4. Status post left knee revision following total left knee, acute on chronic, present on admission -total left knee revision by Dr. Lucy Anna 06/19/2022 -Dr. Aponte was notified in ED, and consult has been placed for evaluation. -blood cultures pending Continue oxycodone postoperative pain management 5. Sleep apnea, requiring CPAP, acute on chronic, present on admission -a respiratory consult to assist with CPAP 6. Psoriatic arthritis, chronic, present on admission -continue methotrexate, gabapentin 7. Hyperlipidemia, chronic, present on admission -continue Lipitor 8. Depression, chronic, present on admission -continue bupropion, fluoxetine 9. Obesity, moderate, acute on chronic, present on admission -dietary consult ordered regarding nutritional education and information for dietary, lifestyle, exercise, and weight changes. -the patient is at much higher risk for medical and surgical complications due to obesity as it relates to his chronic illnesses:, and acute surgical procedure. The patient's obesity increases the difficulty and complexity of medical and/or surgical interventions, management and increases the chances of poor outcome such as morbidity and mortality as well as impaired wound healing. Code status:Full Surrogate decision maker: Mayra Mahmood Spouse COVID PCR:Negtive DVT/VTE prophylaxis:Held medication, SCDs to right leg only Disposition: Patient admitted for observation, for symptomatic management of what is likely viral pneumonia, monitor for developing bacterial infection or respiratory distress, also monitor for bleeding secondary to supratherapeutic INR, expected length of stay less than 2 midnights I have utilized all available immediate resources to obtain, update, or review the patient's current medications. I confirmed that the patient's advanced care plan is present, Code status is documented and/or surrogate decision maker is listed in the patient's medical record. I have personally reviewed patient's chart notes from PCP, specialists, diagnostic imaging, and laboratory, Time Spent With Patient Critical Care time: I spent a total of [] minutes of critical care time on this patient's care today; this time is exclusive of procedural time.
[2022-06-21 23:25] LABS: C-Reactive Protein Quant 7.5 mg/dL (<1.0); Magnesium 1.9 mg/dL (1.6-2.3)
--- NOTE | 2022-06-21 23:40 | PC.NURSE ---
Called in to room - family thinks that the patient is having a seizure - the patient immediately responds to the RN when questions are asked - states that his left leg is jumping with muscle spasms - reassured at this time - family states that the patient has restless leg syndrome and takes gabapentin for it - no s/sx of seizure activity noted - no concerns at this time
--- NOTE | 2022-06-21 23:50 | PC.NURSE ---
In another patient's room doing care - when came out of the room the patient was not in her room - security and police notified - search of hospital and grounds performed
[2022-06-22] VITALS (18 sets, daily range): BP systolic 102–121; BP diastolic 47–62; PULSE 65–82; RESP 16–30; TEMP 36.8–38; O2SAT 93–97
--- NOTE | 2022-06-22 00:30 | PC.NURSE ---
family and patient updated on status - family to leave for the evening - the patient is resting quietly with eyes closed - no needs voiced
--- NOTE | 2022-06-22 01:15 | PC.NURSE ---
report called to JONELLE Cormier - pt to be transferred to room 221
--- NOTE | 2022-06-22 01:30 | PC.NURSE ---
pt to the floor via stretcher with RN
[2022-06-22] MEDS: ACETAMINOPHEN 325 MG TABLET 650 MG PO ×2 (02:00→20:11)
[2022-06-22] MEDS: GABAPENTIN 300 MG CAPSULE PO ×2 (02:00→20:43)
[2022-06-22] MEDS: SODIUM CHLORIDE 0.9% 1,000 ML 40 ML IV (02:03)
--- NOTE | 2022-06-22 04:45 | DI.MRI.S_ITS ---
PROCEDURE: MR ANGIO HEAD WO CON INDICATIONS: Possible upper extremity weakness and confusion TECHNIQUE: Noncontrast axial 3-D [id number] MR angiogram, with 3-dimensional maximum intensity projection (MIP) reformats of the internal carotid arteries and posterior circulation then performed. COMPARISON: None. FINDINGS: Image quality: Excellent. Anterior circulation: Intracranial internal carotid arteries demonstrate normal size and intraluminal flow signal. The flow within the paired anterior cerebral arteries is normal and symmetric. The flow within the middle cerebral arteries is normal and symmetric. The anterior communicating artery is seen. No stenoses, occlusions, or aneurysms. Posterior circulation: Diminished signal within the left V4 segment suggestive of intracranial atherosclerotic narrowing. There may also be a component of congenital hypoplasia in the left vertebral system. The right V4 segment and the basilar artery are unremarkable. Posterior cerebral arteries are preserved. There is persistent origin of the left posterior cerebral artery. IMPRESSION: No hemodynamically significant stenosis or occlusion of the major intracranial arterial circulation. 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 Dictated by: Raul Hernandez M.D. on 06/22/2022 at 9:06 Approved by: Raul Hernandez M.D. on 06/22/2022 at 9:09
[2022-06-22 05:08] LABS: INR 2.1 (0.9-1.3); Prothrombin Time 24.8 SECONDS (10.1-12.7)
[2022-06-22 05:20] LABS: Basophils Absolute Auto 0 /uL (0-100); Basophils Percent Auto 0.4 % (0-2); Eosinophils Absolute Auto 0 /uL (0-450); Eosinophils Percent Auto 0.2 % (2-4); Hemoglobin 10.4 g/dL (13.5-17.5); Lymphocytes Absolute Auto 500 /uL (1100-4500); Lymphocytes Percent Auto 10.5 % (25-40); Mean Corpuscular HGB Conc 32.5 % (30-36); Mean Corpuscular Volume 79.8 fL (80-100); Monocytes Absolute Auto 700 /uL (0-900); Monocytes Percent Auto 14.3 % (3-14); Neutrophils Absolute Auto 3900 /uL (1500-7000); Neutrophils Percent Auto 74.6 % (50-75); Platelet Count 131 X10^3/uL (150-400); Red Blood Cell Count 4.01 X10^6/uL (4.5-5.9); Red Cell Distribution Width 23.6 % (11.6-14.8); White Blood Cell Count 5.2 X10^3/uL (4.5-11.0)
[2022-06-22 05:23] LABS: Add Manual Diff / Slide Review SLIDE REVIEW; BUN Creatinine Ratio 20.6 (6-22); Blood Urea Nitrogen 21 mg/dL (9-20); Calcium 7.1 mg/dL (8.4-10.2); Carbon Dioxide 20 mmol/L (22-32); Chloride 103 mmol/L (98-107); Estimated Glomerular Filt Rate > 60 mL/min (>60); Glucose 102 mg/dL (80-110); HEMOLYSIS 17 (0-50); Potassium 3.4 mmol/L (3.4-5.1); Sodium 132 mmol/L (137-145)
[2022-06-22 05:35] LABS: Troponin I 0.085 ng/mL (0.01-0.034)
[2022-06-22 05:40] LABS: Hemoglobin A1C% w Est Avg Glu 5.3 % (4.0-6.0)
[2022-06-22 06:05] LABS: Thyroid Stimulating Hormone 0.455 uIU/mL (0.47-4.68)
[2022-06-22 07:13] LABS: Anisocytosis 2+; Microcytosis 1+
[2022-06-22] MEDS: buPROPion XL 150 MG TAB PO (09:02)
[2022-06-22] MEDS: predniSONE 20 MG TABLET 40 MG PO (09:03)
[2022-06-22] MEDS: METOPROLOL ER 50 MG TABLET PO (09:03)
[2022-06-22] MEDS: FLUoxetine 20 MG CAPSULE PO (09:03)
[2022-06-22] MEDS: TAMSULOSIN 0.4 MG CAPSULE PO (09:03)
--- NOTE | 2022-06-22 09:38 | P.PN_ITS ---
Subjective Subjective Date Patient Seen: 06/22/22 Time Patient Seen: 09:30 Interval history: Krunal was discharged to home after a polyethylene exchange for a broken polyethylene. He had an attempted spinal and general anesthesia. He then developed urinary retention and had to have a Mora catheter placed through the emergency room. He has a long history of alcoholism. He had some increased confusion at home and a fever to 102. His called the ambulance and he was transported to [facility] and admitted. He notes he is not having severe knee pain. His catheter is really bothering him. He does not feel short of breath. Exam Vital Signs (past 8 hours): - 06/22/22 02:00 06/22/22 02:16 06/22/22 05:00 Temperature 99.2 F Pulse Rate 68 Respiratory Rate Blood Pressure 115/57 L Pulse Oximetry 93 Oxygen Delivery Method Room Air CPAP Oxygen Flow Rate 06/22/22 02:40 06/22/22 05:45 06/22/22 09:03 Temperature 99.0 F 98.3 F Pulse Rate 67 Respiratory Rate 16 Blood Pressure 120/52 L 120/52 L Pulse Oximetry 93 Oxygen Delivery Method Oxygen Flow Rate 0 06/22/22 09:21 Temperature Pulse Rate Respiratory Rate Blood Pressure Pulse Oximetry 94 Oxygen Delivery Method Room Air Oxygen Flow Rate Oxygen Delivery Method Room Air Oxygen Flow Rate 0 Narrative Exam Narrative: Alert and appropriate, resting comfortably in bed, lungs occasional rhonchi, left knee range of motion 0-120 degrees, dressing intact, no significant erythema, mild swelling Objective Labs Result Diagrams: 06/22/22 04:52 06/22/22 04:52 Labs: Laboratory Results - last 24 hr 06/21/22 06/21/22 06/21/22 19:48 19:48 19:48 WBC 5.2 RBC 4.29 L Hgb 11.2 L Hct 34.2 L MCV 79.8 L MCH 26.1 MCHC 32.7 RDW 23.2 H Plt Count 157 Neut % (Auto) 77.8 H Lymph % (Auto) 8.5 L [place] % (Auto) 13.5 Eos % (Auto) 0.0 L Baso % (Auto) 0.2 Neut # (Auto) 4000 Lymph # (Auto) 400 L [place] # (Auto) 700 Eos # (Auto) 0 Baso # (Auto) 0 Plt Morphology Comment RBC Morphology Not Reportable Hypochromasia 1+ H Anisocytosis 3+ H Microcytosis 1+ H Stomatocytes 1+ H PT 28.9 H INR 2.5 H APTT 80 H* Sodium Potassium Chloride Carbon Dioxide BUN Creatinine Estimated GFR BUN/Creatinine Ratio Glucose Hemoglobin A1c Lactate Calcium Magnesium Total Bilirubin AST ALT Alkaline Phosphatase Troponin I C-Reactive Protein Total Protein Albumin Globulin Albumin/Globulin Ratio Lipase Procalcitonin TSH Urine Color Urine Appearance Urine pH Ur Specific [place] Urine Protein Urine Glucose (UA) Urine Ketones Urine Occult Blood Urine Nitrate Urine Bilirubin Ur Bilirubin Confirm Urine Urobilinogen Ur Leukocyte Esterase Urine RBC Urine WBC Amorphous Sediment Urine Bacteria Ur Culture Indicated? Chlamy pneumoniae PCR Not detected Adenovirus (PCR) Not detected B. pertussis DNA (PCR) Not detected B.parapertussis DNA PCR Not detected Coronavirus OC43 (PCR) Not detected Coronavirus HKU1 (PCR) Not detected Coronavirus 229E (PCR) Not detected SARS-CoV-2 (PCR) Not detected Coronavirus NL63 (PCR) Not detected Human Metapneumovir PCR Not detected Influenza Type A (PCR) Not detected Influenza Type B (PCR) Not detected M. pneumoniae (PCR) Not detected Parainfluenza 1 (PCR) Not detected Parainfluenza 2 (PCR) Not detected Parainfluenza 3 (PCR) Not detected Parainfluenza 4 (PCR) Not detected RSV (PCR) Not detected Entero/Rhino (PCR) Not detected 06/21/22 06/21/22 06/21/22 19:48 19:48 19:48 WBC RBC Hgb Hct MCV MCH MCHC RDW Plt Count Neut % (Auto) Lymph % (Auto) [place] % (Auto) Eos % (Auto) Baso % (Auto) Neut # (Auto) Lymph # (Auto) [place] # (Auto) Eos # (Auto) Baso # (Auto) Plt Morphology Comment RBC Morphology Hypochromasia Anisocytosis Microcytosis Stomatocytes PT INR APTT Sodium 133 L Potassium 3.7 Chloride 99 Carbon Dioxide 23 BUN 18 Creatinine 1.05 Estimated GFR > 60 BUN/Creatinine Ratio 17.1 Glucose 106 Hemoglobin A1c Lactate 1.0 Calcium 8.1 L Magnesium 1.9 Total Bilirubin 1.1 AST 52 ALT 26 Alkaline Phosphatase 70 Troponin I C-Reactive Protein Total Protein 7.3 Albumin 3.8 Globulin 3.5 Albumin/Globulin Ratio 1.1 Lipase 24 Procalcitonin 0.23 TSH Urine Color Urine Appearance Urine pH Ur Specific [place] Urine Protein Urine Glucose (UA) Urine Ketones Urine Occult Blood Urine Nitrate Urine Bilirubin Ur Bilirubin Confirm Urine Urobilinogen Ur Leukocyte Esterase Urine RBC Urine WBC Amorphous Sediment Urine Bacteria Ur Culture Indicated? Chlamy pneumoniae PCR Adenovirus (PCR) B. pertussis DNA (PCR) B.parapertussis DNA PCR Coronavirus OC43 (PCR) Coronavirus HKU1 (PCR) Coronavirus 229E (PCR) SARS-CoV-2 (PCR) Coronavirus NL63 (PCR) Human Metapneumovir PCR Influenza Type A (PCR) Influenza Type B (PCR) M. pneumoniae (PCR) Parainfluenza 1 (PCR) Parainfluenza 2 (PCR) Parainfluenza 3 (PCR) Parainfluenza 4 (PCR) RSV (PCR) Entero/Rhino (PCR) 06/21/22 06/21/22 06/21/22 19:48 19:48 20:22 WBC RBC Hgb Hct MCV MCH MCHC RDW Plt Count Neut % (Auto) Lymph % (Auto) [place] % (Auto) Eos % (Auto) Baso % (Auto) Neut # (Auto) Lymph # (Auto) [place] # (Auto) Eos # (Auto) Baso # (Auto) Plt Morphology Comment RBC Morphology Hypochromasia Anisocytosis Microcytosis Stomatocytes PT INR APTT Sodium Potassium Chloride Carbon Dioxide BUN Creatinine Estimated GFR BUN/Creatinine Ratio Glucose Hemoglobin A1c Lactate Calcium Magnesium Total Bilirubin AST ALT Alkaline Phosphatase Troponin I C-Reactive Protein 7.5 H Total Protein Albumin Globulin Albumin/Globulin Ratio Lipase Procalcitonin TSH 0.455 L Urine Color Yellow Urine Appearance Cloudy Urine pH 5.0 Ur Specific [place] 1.025 Urine Protein 2+ H Urine Glucose (UA) Negative Urine Ketones 2+ H Urine Occult Blood 3+ H Urine Nitrate Negative Urine Bilirubin 1+ H Ur Bilirubin Confirm Negative Urine Urobilinogen 1.0 Ur Leukocyte Esterase Trace H Urine RBC 10-30/hpf H Urine WBC None seen Amorphous Sediment 4+ Urine Bacteria None seen Ur Culture Indicated? Cult not indicated Chlamy pneumoniae PCR Adenovirus (PCR) B. pertussis DNA (PCR) B.parapertussis DNA PCR Coronavirus OC43 (PCR) Coronavirus HKU1 (PCR) Coronavirus 229E (PCR) SARS-CoV-2 (PCR) Coronavirus NL63 (PCR) Human Metapneumovir PCR Influenza Type A (PCR) Influenza Type B (PCR) M. pneumoniae (PCR) Parainfluenza 1 (PCR) Parainfluenza 2 (PCR) Parainfluenza 3 (PCR) Parainfluenza 4 (PCR) RSV (PCR) Entero/Rhino (PCR) 06/22/22 06/22/22 06/22/22 04:52 04:52 04:52 WBC 5.2 RBC 4.01 L Hgb 10.4 L Hct 32.0 L MCV 79.8 L MCH 26.0 MCHC 32.5 RDW 23.6 H Plt Count 131 L Neut % (Auto) 74.6 Lymph % (Auto) 10.5 L [place] % (Auto) 14.3 H Eos % (Auto) 0.2 L Baso % (Auto) 0.4 Neut # (Auto) 3900 Lymph # (Auto) 500 L [place] # (Auto) 700 Eos # (Auto) 0 Baso # (Auto) 0 Plt Morphology Comment RBC Morphology See below Hypochromasia Anisocytosis 2+ H Microcytosis 1+ H Stomatocytes PT 24.8 H INR 2.1 H APTT Sodium 132 L Potassium 3.4 Chloride 103 Carbon Dioxide 20 L BUN 21 H Creatinine 1.02 Estimated GFR > 60 BUN/Creatinine Ratio 20.6 Glucose 102 Hemoglobin A1c Lactate Calcium 7.1 L Magnesium Total Bilirubin AST ALT Alkaline Phosphatase Troponin I C-Reactive Protein Total Protein Albumin Globulin Albumin/Globulin Ratio Lipase Procalcitonin TSH Urine Color Urine Appearance Urine pH Ur Specific [place] Urine Protein Urine Glucose (UA) Urine Ketones Urine Occult Blood Urine Nitrate Urine Bilirubin Ur Bilirubin Confirm Urine Urobilinogen Ur Leukocyte Esterase Urine RBC Urine WBC Amorphous Sediment Urine Bacteria Ur Culture Indicated? Chlamy pneumoniae PCR Adenovirus (PCR) B. pertussis DNA (PCR) B.parapertussis DNA PCR Coronavirus OC43 (PCR) Coronavirus HKU1 (PCR) Coronavirus 229E (PCR) SARS-CoV-2 (PCR) Coronavirus NL63 (PCR) Human Metapneumovir PCR Influenza Type A (PCR) Influenza Type B (PCR) M. pneumoniae (PCR) Parainfluenza 1 (PCR) Parainfluenza 2 (PCR) Parainfluenza 3 (PCR) Parainfluenza 4 (PCR) RSV (PCR) Entero/Rhino (PCR) 06/22/22 06/22/22 04:52 04:52 WBC RBC Hgb Hct MCV MCH MCHC RDW Plt Count Neut % (Auto) Lymph % (Auto) [place] % (Auto) Eos % (Auto) Baso % (Auto) Neut # (Auto) Lymph # (Auto) [place] # (Auto) Eos # (Auto) Baso # (Auto) Plt Morphology Comment RBC Morphology Hypochromasia Anisocytosis Microcytosis Stomatocytes PT INR APTT Sodium Potassium Chloride Carbon Dioxide BUN Creatinine Estimated GFR BUN/Creatinine Ratio Glucose Hemoglobin A1c 5.3 Lactate Calcium Magnesium Total Bilirubin AST ALT Alkaline Phosphatase Troponin I 0.085 H C-Reactive Protein Total Protein Albumin Globulin Albumin/Globulin Ratio Lipase Procalcitonin TSH Urine Color Urine Appearance Urine pH Ur Specific [place] Urine Protein Urine Glucose (UA) Urine Ketones Urine Occult Blood Urine Nitrate Urine Bilirubin Ur Bilirubin Confirm Urine Urobilinogen Ur Leukocyte Esterase Urine RBC Urine WBC Amorphous Sediment Urine Bacteria Ur Culture Indicated? Chlamy pneumoniae PCR Adenovirus (PCR) B. pertussis DNA (PCR) B.parapertussis DNA PCR Coronavirus OC43 (PCR) Coronavirus HKU1 (PCR) Coronavirus 229E (PCR) SARS-CoV-2 (PCR) Coronavirus NL63 (PCR) Human Metapneumovir PCR Influenza Type A (PCR) Influenza Type B (PCR) M. pneumoniae (PCR) Parainfluenza 1 (PCR) Parainfluenza 2 (PCR) Parainfluenza 3 (PCR) Parainfluenza 4 (PCR) RSV (PCR) Entero/Rhino (PCR) [facility] Medical History Alcoholism Anxiety Atrophic gastritis Chronic low back pain Cyst in hand (~2019) Depression Diverticulosis Dizziness Erectile dysfunction Hearing impaired History of colon polyps HTN (hypertension) Hydronephrosis Hyperlipidemia Insomnia Ischemia Nephrolithiasis YAIMA on CPAP Osteoarthritis Paroxysmal atrial fibrillation Paroxysmal atrial flutter Prediabetes Psoriasis Psoriatic arthritis Psoriatic arthropathy Retroperitoneal mass RLS (restless legs syndrome) Sinus congestion Syncope Testosterone deficiency Vitamin D deficiency Surgical History History of ear, nose, and throat (ENT) surgery History of surgery (05/20/22) History of total left knee replacement (TKR) History of total right knee replacement (09/06/18) Hx of bilateral cataract extraction Hx of hernia repair Hx of lithotripsy Hx of tonsillectomy Family History Father No problems noted. Mother No problems noted. Brother No problems noted. Sister No problems noted. Social History household members: spouse Smoking Status: Never smoker alcohol intake: current Assessment & Plan Assessment and plan (1) Left knee dislocation: Status: Acute (2) Effusion of knee: Qualifiers: Laterality: left Qualified Code(s): M25.462 - Effusion, left knee Status: Acute (3) History of anticoagulant therapy: Status: Acute (4) History of psoriatic arthritis: Status: Acute (5) S/P knee surgery: Status: Acute (6) Acute urinary retention: Status: Acute Plan I strongly encouraged him to get out of bed with physical therapy. It is okay f or him to shower. He can be weight-bearing as tolerated on the left lower extremity. Would like him to ambulate as much as tolerated in the [place]. He had acute urinary retention and has a catheter in. It might be reasonable to do a trial of catheter removal with intermittent catheterization if needed and a voiding trial. He does have a known history of alcoholism. I discussed with Dr. Borges the it is important that he is on a CIWA protocol. He is on antibiotics and did have fevers to 102. His white blood cell count is improved. Hopefully he will be able to successfully void and potentially could be discharged today or within the next day or so. Time Spent With Patient Critical Care time: I spent a total of [] minutes of critical care time on this patient's care today; this time is exclusive of procedural time. Quality VTE Deep Vein Thrombosis/Pulmonary Embolism Present on Admission: No
--- NOTE | 2022-06-22 09:48 | PT.IIE ---
Current Diagnoses Effusion, left knee (06/21/22) Other retention of urine (06/21/22) Unspecified dislocation of left knee, initial encounter (06/21/22) Personal history of diseases of the skin and subcutaneous tissue (06/21/22) Personal history of other drug therapy (06/21/22) Other specified postprocedural states (06/21/22) Surgical History (Last Reviewed 06/22/22 @ 04:14 by MONALISA Ponce-) History of ear, nose, and throat (ENT) surgery History of surgery (05/20/22) History of total left knee replacement (TKR) History of total right knee replacement (09/06/18) Hx of bilateral cataract extraction Hx of hernia repair Hx of lithotripsy Hx of tonsillectomy Medical History (Last Reviewed 06/22/22 @ 04:14 by MONALISA Ponce-DEEPTHI) Alcoholism Anxiety Atrophic gastritis Chronic low back pain Cyst in hand (~2018) Depression Diverticulosis Dizziness Erectile dysfunction Hearing impaired History of colon polyps HTN (hypertension) Hydronephrosis Hyperlipidemia Insomnia Ischemia Nephrolithiasis YAIMA on CPAP Osteoarthritis Paroxysmal atrial fibrillation Paroxysmal atrial flutter Prediabetes Psoriasis Psoriatic arthritis Psoriatic arthropathy Retroperitoneal mass RLS (restless legs syndrome) Sinus congestion Syncope Testosterone deficiency Vitamin D deficiency Physical Therapy Inpatient Evaluation/Re-Eval M1 PT/OT-IP Prior Functional Status Start: 06/22/22 08:50 Freq: NEEDED Status: Active Protocol: Document 06/22/22 09:48 AW (Rec: 06/22/22 11:41 AW [id number]) Medical Review Prior Functional Status Medical History Reviewed Yes Communication Pt is able to express his needs. He is [place]. He is confused at this evaluation and requires extra time for processing. Mobility and Gait Pt states he uses a FWW or cane at home. He has chronic low back pain which limits his walking and standing tolerance. He denies falls in the past one year. Activities of Daily Living and IADL's Pt is independent with ADL's. He states he drives and manages his own medications. Prior Functional Level (Other details) PMH includes psoriatic arthritis, a fib on a/c, BMI 36, and YAIMA on CPAP. He has had TKA bilaterally. Last month, he dislocated his left TKA components and had TKA revision. Social History Household Members spouse Living Arrangements House Number of Floors (Floors) One Floor Number of Stairs To Enter/Railing? 1 COLLIN without rail at garage entrance and at front entrance . Home Environment Standard Height Toilet,Walk in Shower Home Equipment Front Wheel Walker,Straight Cane,Power Wheelchair/Scooter Employment Status Self-Employed Additional Social History Comment Pt lives with his spouse, Mayra. 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 M2 PT-IP Current Condition Start: 06/22/22 08:50 Freq: NEEDED Status: Active Protocol: Document 06/22/22 09:48 AW (Rec: 06/22/22 11:41 AW [id number]) Physical Therapy Current Condition Current Condition Evaluation Date 06/22/22 Treatment Diagnosis pneumonia, L knee pain, difficulty in walking Onset Date 06/21/22 M3 PT-IP Subjective Start: 06/22/22 08:50 Freq: NEEDED Status: Active Protocol: Document 06/22/22 09:48 AW (Rec: 06/22/22 11:41 AW [id number]) Subjective Physical Therapy Visit Type Type Initial Evaluation Visit Start Time 09:23 Visit Stop Time 09:48 Total Visit Minutes 25 Notes Ortho (Dr. Anna) was in the room with pt when PT arrived. She cleared him for WBAT. Physical Therapy Visit Comments Patient Comments Pt is willing to participate with PT but not feeling that great. Therapy Pain Assessment Pain When Pain Assessed During Mobility Pain Present Pain Present Pain Reported Location left knee Scale Used not quantified M4 PT-IP Mobility and Gait Start: 06/22/22 08:50 Freq: NEEDED Status: Active Protocol: Document 06/22/22 09:48 AW (Rec: 06/22/22 11:41 AW [id number]) PT-Bed Mobility Assessment Rolling Type of Rolling Roll to Left Level of Assist Minimal Assistance Supine to Sit Supine to Sit Moderate Assistance,1 Person Assistance PT-Transfer Assessment Sit to and From Stand Sit to and from Stand Minimal Assistance,1 Person Assistance,Use of Upper Extremities Equipment Transfer Assistive Device Gait Belt,Front Wheeled Walker Orthotic/Prosthetic Devices or Brace: No Transfers Transfer Destination Chair Transfer Technique pt ambulated with FWW Transfer Ability Level of Assist Minimal Assistance,1 Person Assistance,Use of Upper Extremities Comments Mobility Comments Pt was lying in bed as PT arrived. 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 He needed assist to roll to his left side and then mod A and cues for SL to sit. He was able to scoot forward on the bed SBA. He was SOB with this exertion. SpO2 was stable. He stood min A and used FWW to ambulate 20 feet around the foot of the bed to the chair min A. He transferred to the chair min A for controlled descent. SOB increased but SpO2 was stable. Pt was left with call light and tray table in reach. Gait Assessment Gait Gait Assistance Required: Minimum Assistance,1 Person Assist Distance (Feet) 20 Able to Maintain Weight Bearing Status Yes During Gait Assistive Devices Assistive Device Gait Belt,Front Wheeled Walker Orthotic/Prosthetic Devices or Brace: No Gait Deviations General Gait Pattern Antalgic,Decreased Stride Length,Decreased Feet Clearance,Flexed Trunk,Step-to Gait Factors Limiting Gait Function Factors Limiting Gait Function Decreased Activity Tolerance, Decreased Strength,Difficulty Following Directions,Pain,Poor Balance,Poor Safety Awareness ,Respiratory Distress Comments Gait Comments See mobility comments for details. Stair Climbing Assessment Comments Stair Climbing Comments Not assessed. PT-Balance Assessment Sitting Balance and Reactions Static Sitting Balance Ability Good Dynamic Sitting Balance Ability Good Standing Balance and Reactions Static Standing Balance Ability Good Dynamic Standing Balance Ability Fair Device Used FWW M5 PT-IP Objective Assessments Start: 06/22/22 08:50 Freq: NEEDED Status: Active Protocol: Document 06/22/22 09:48 AW (Rec: 06/22/22 11:41 AW [id number]) Orientation Orientation/Cognition Level of Alertness Confusional State Orientation Name,Place,Situation Language Function Ability Hard of Hearing Safety Awareness Decreased Safety Awareness Memory Description Short Term Impaired Gross Range of Motion Lower Extremity ROM Assessment Within Functional Limits Impairments L knee WFL but with increased pain Strength Lower Extremity Strength Hip 4/5 Knee R 4+/5; L 4-/5 Ankle 4+/5 DF Sensation Assessment Sensation Gross Sensation WNL M6 PT-IP Treatment Start: 06/22/22 08:50 Freq: NEEDED Status: Active Protocol: Document 06/22/22 09:48 AW (Rec: 06/22/22 11:41 AW [id number]) Physical Therapy Treatment Exercises Exercises Ankle Pumps,Quad Sets,Heel Slides Education Education Provided Weight Bearing Status,Safety M7 PT-IP Assessment and Plan Start: 06/22/22 08:50 Freq: NEEDED Status: Active Protocol: Document 06/22/22 09:48 AW (Rec: 06/22/22 11:41 AW [id number]) PT Summary Assessment and Plan Potential Rehabilitation Potential Good Status of Condition at Evaluation Evolving Summary Impairments Pain,Strength,Balance, Cognition,Bed Mobility, Transfers,Gait,Activity Tolerance Assessment Summary Ehsan is a 77 yo man with chronic low back pain. He had L TKA revision a month ago. He normally ambulates with FWW or SPC. On assessment today, he needed mod assist for bed mobility and min assist for transfers and short distance gait with FWW. He is confused and has decreased safety awareness affecting mobility. He is also SOB with positive dyspnea on exertion. PT recommends pt will be safe to discharge home with spouse assist once medically stable. Home health PT is indicated to improve strength and mobility independence. Goals Bed Mobility Goal Independent Transfer Goal Standby Assistance,Front Wheeled Walker Gait Goal Standby Assistance,Front Wheel Walker Gait Distance 100 Other Goals - up/down one step SBA Days to Meet Goals 5 Frequency of Treatment Frequency Of Treatment Once a Day Treatment Plan Physical Therapy Treatment Plan Bed Mobility Training,Transfer Training,Gait Training, Therapeutic Exercise,Balance Retraining,Post Op Education, Discharge Planning,Hot or Cold Pack,Neuromuscular Re-ed Other Recommendations and Next Treatment gait training with FWW; Focus education on energy conservation Weight Bearing Status Weight Bearing Status Weight Bear as Tolerated Allowed Weight Bearing Amount (enter % WBAT LLE or #) (%) Recommendations To Nursing Amount of Assist Needed 1 Person Assist Discharge Recommendations PT Discharge Recommendations Home with Assistance,Home Health Transportation Needs at Discharge Private Vehicle
[2022-06-22] MEDS: POTASSIUM CHLORIDE 20 MEQ TAB 40 MEQ PO (12:27)
--- NOTE | 2022-06-22 13:12 | CM.DPNOTE ---
Faxed referral to [facility]. Kavita Kim CM Assist.
--- NOTE | 2022-06-22 13:23 | CM.DANOTE ---
Patient is a 77 yo male who was admitted on 06/21/22 for AMS. Pt has [place] and [place] for [place] and his PCP is Kavita Aranda in [place]. EMR was reviewed. Per , with hx of AFIB, CPAP and readmit from Ortho knee surgery on 06/19/22 a couple days ago. Pt now with urinary retention and pneumonia. Per Ortho Consult, recommending d/c on oral abx and d/c haynes to attempt independent voiding. No further surgical intervention needed from Ortho. Pt likely with ETOH use at baseline. Per PT, recommending d/c to home and pt would benefit from HH. SW met bedside with pt and explained role and he confirms he lives at home in [facility] with his and is independent with ADL's at baseline and is still working. Pt denies any hx of HH or SNF and SW discussed HH recommendation and explained services and frequency and pt agreeable. SW provided HH Choice list and no preference so CC Kavita kindly making [facility] referral based on Vendor Calendar. F2F completed but not faxed yet. Pt confirms that either his adult Dtr who was bedside earlier or his spouse could provide transport at d/c. Plan: SW to follow for plan of d/c to home via family POV and new [facility] referral made and F2F, HH orders, and d/c summary to be faxed to [facility] at d/c. DAVID Hernandez Discharge Planning/Care Management CM Discharge Assessment Start: 06/22/22 13:20 Freq: Status: Active Protocol: Document 06/22/22 13:20 BF (Rec: 06/22/22 13:22 BF [id number]) Discharge Planning Assessment Assigned Barrel Scraper DAVID Porter DPOA/Assigned Designee Name Spouse Advance Directives? Yes Advance Directives on File Yes History Provided By Patient,Family Member,Medical Record Has Patient been admitted in last 30 Yes days? Comment readmit from [facility] on 06/19/22 Prior Living Arrangements House Household Members spouse Type of transporation used prior to Drives own vehicle admit Independent with ADL's Yes Is patient alert and oriented? Yes Needs Assistance With Home Chores / Shopping Caregiver for Another No Community Services used prior to Physical Therapy admission: DME Already Rented / Owned FWW / Walker Patient/Family Preference Home with Home Health Barriers to Discharge No Discharge Plan Home Community Services Physical Therapy,Home Health Nurse Transportation Arrangement Spouse or adult Dtr to transport Referrals Initiated Home Health If patient plan is home with home health Yes : Has signed face to face form been completed? Medicare Choice List Provided Yes SNF/HH Preference No preference, [facility] referral made based on Vendor Calendar Whiteboard Updated in Patient Room with Yes name and ext. # of Barrel Scraper Review Status In Process Please Provide Date Initial DC 06/22/22 Assessment Was Performed Next Review Type Continued Stay Review
--- NOTE | 2022-06-22 16:45 | PM.PN.1 ---
Subjective Subjective Date Patient Seen: 06/22/22 Interval history: 77 M with recent knee revision 2 days ago admitted with fever. Had urinary retention with haynes catheter, urine does have RBCs but minimal WBCs but was sent for culture which is pending, this remains his most likely source at this time. Seen by orthopedics, not concerned for knee as the source at this time. Currently awaiting culture results, will continue on ceftriaxone for presumed urinary infection at this time. Exam Vital Signs (past 8 hours): - 06/22/22 09:03 06/22/22 09:21 06/22/22 09:52 Temperature 100.4 F H Pulse Rate 82 Respiratory Rate 16 Blood Pressure 120/52 L 110/49 L Pulse Oximetry 94 97 Oxygen Delivery Method Room Air 06/22/22 09:33 06/22/22 13:00 Temperature 100.3 F H Pulse Rate 82 77 Respiratory Rate 18 Blood Pressure 118/62 Pulse Oximetry 94 Oxygen Delivery Method Oxygen Delivery Method Room Air Oxygen Flow Rate 0 Narrative Exam Narrative: General: Patient is a well-developed, well-nourished in no distress at this time. HEENT: Normocephalic, atraumatic, extraocular muscles intact, oral pharynx is clear and mucous membranes are moist. Neck is supple and symmetric, trachea is midline, no adenopathy, no thyroid enlargement, nontender, no masses palpated. Patient wearning nasal CPAP. Chest: Normal AP diameter and contour without kyphoscoliosis, no nasal flaring, retractions, or labored breathing. Lungs: CTA b/l no wheezes rhonchi or rales. Cardio: RRR no m/r/g. Abdomen: S NT ND, haynes in place with clear yellow urine. MSK: knee tenderness as expected after surgery without erythema, warmth, or pain with movement Skin: Warm dry and intact without rashes, ulcerations or petechiae. Neuro: Alert and orientated x3, strength is +5/5 in all extremities, sensation to touch intact, no gross deficits noted of cranial nerves. Psych: Patient has a well-kept appearance, appropriate affect, mental status attitude thought context and judgment are appropriate for age. Objective Labs Result Diagrams: 06/22/22 04:52 06/22/22 04:52 Labs: Laboratory Results - last 24 hr 06/21/22 06/21/22 06/21/22 19:48 19:48 19:48 WBC 5.2 RBC 4.29 L Hgb 11.2 L Hct 34.2 L MCV 79.8 L MCH 26.1 MCHC 32.7 RDW 23.2 H Plt Count 157 Neut % (Auto) 77.8 H Lymph % (Auto) 8.5 L [place] % (Auto) 13.5 Eos % (Auto) 0.0 L Baso % (Auto) 0.2 Neut # (Auto) 4000 Lymph # (Auto) 400 L [place] # (Auto) 700 Eos # (Auto) 0 Baso # (Auto) 0 Plt Morphology Comment RBC Morphology Not Reportable Hypochromasia 1+ H Anisocytosis 3+ H Microcytosis 1+ H Stomatocytes 1+ H PT 28.9 H INR 2.5 H APTT 80 H* Sodium Potassium Chloride Carbon Dioxide BUN Creatinine Estimated GFR BUN/Creatinine Ratio Glucose Hemoglobin A1c Lactate Calcium Magnesium Total Bilirubin AST ALT Alkaline Phosphatase Troponin I C-Reactive Protein Total Protein Albumin Globulin Albumin/Globulin Ratio Lipase Procalcitonin TSH Urine Color Urine Appearance Urine pH Ur Specific [place] Urine Protein Urine Glucose (UA) Urine Ketones Urine Occult Blood Urine Nitrate Urine Bilirubin Ur Bilirubin Confirm Urine Urobilinogen Ur Leukocyte Esterase Urine RBC Urine WBC Amorphous Sediment Urine Bacteria Ur Culture Indicated? Chlamy pneumoniae PCR Not detected Adenovirus (PCR) Not detected B. pertussis DNA (PCR) Not detected B.parapertussis DNA PCR Not detected Coronavirus OC43 (PCR) Not detected Coronavirus HKU1 (PCR) Not detected Coronavirus 229E (PCR) Not detected SARS-CoV-2 (PCR) Not detected Coronavirus NL63 (PCR) Not detected Human Metapneumovir PCR Not detected Influenza Type A (PCR) Not detected Influenza Type B (PCR) Not detected M. pneumoniae (PCR) Not detected Parainfluenza 1 (PCR) Not detected Parainfluenza 2 (PCR) Not detected Parainfluenza 3 (PCR) Not detected Parainfluenza 4 (PCR) Not detected RSV (PCR) Not detected Entero/Rhino (PCR) Not detected 06/21/22 06/21/22 06/21/22 19:48 19:48 19:48 WBC RBC Hgb Hct MCV MCH MCHC RDW Plt Count Neut % (Auto) Lymph % (Auto) [place] % (Auto) Eos % (Auto) Baso % (Auto) Neut # (Auto) Lymph # (Auto) [place] # (Auto) Eos # (Auto) Baso # (Auto) Plt Morphology Comment RBC Morphology Hypochromasia Anisocytosis Microcytosis Stomatocytes PT INR APTT Sodium 133 L Potassium 3.7 Chloride 99 Carbon Dioxide 23 BUN 18 Creatinine 1.05 Estimated GFR > 60 BUN/Creatinine Ratio 17.1 Glucose 106 Hemoglobin A1c Lactate 1.0 Calcium 8.1 L Magnesium 1.9 Total Bilirubin 1.1 AST 52 ALT 26 Alkaline Phosphatase 70 Troponin I C-Reactive Protein Total Protein 7.3 Albumin 3.8 Globulin 3.5 Albumin/Globulin Ratio 1.1 Lipase 24 Procalcitonin 0.23 TSH Urine Color Urine Appearance Urine pH Ur Specific [place] Urine Protein Urine Glucose (UA) Urine Ketones Urine Occult Blood Urine Nitrate Urine Bilirubin Ur Bilirubin Confirm Urine Urobilinogen Ur Leukocyte Esterase Urine RBC Urine WBC Amorphous Sediment Urine Bacteria Ur Culture Indicated? Chlamy pneumoniae PCR Adenovirus (PCR) B. pertussis DNA (PCR) B.parapertussis DNA PCR Coronavirus OC43 (PCR) Coronavirus HKU1 (PCR) Coronavirus 229E (PCR) SARS-CoV-2 (PCR) Coronavirus NL63 (PCR) Human Metapneumovir PCR Influenza Type A (PCR) Influenza Type B (PCR) M. pneumoniae (PCR) Parainfluenza 1 (PCR) Parainfluenza 2 (PCR) Parainfluenza 3 (PCR) Parainfluenza 4 (PCR) RSV (PCR) Entero/Rhino (PCR) 06/21/22 06/21/22 06/21/22 19:48 19:48 20:22 WBC RBC Hgb Hct MCV MCH MCHC RDW Plt Count Neut % (Auto) Lymph % (Auto) [place] % (Auto) Eos % (Auto) Baso % (Auto) Neut # (Auto) Lymph # (Auto) [place] # (Auto) Eos # (Auto) Baso # (Auto) Plt Morphology Comment RBC Morphology Hypochromasia Anisocytosis Microcytosis Stomatocytes PT INR APTT Sodium Potassium Chloride Carbon Dioxide BUN Creatinine Estimated GFR BUN/Creatinine Ratio Glucose Hemoglobin A1c Lactate Calcium Magnesium Total Bilirubin AST ALT Alkaline Phosphatase Troponin I C-Reactive Protein 7.5 H Total Protein Albumin Globulin Albumin/Globulin Ratio Lipase Procalcitonin TSH 0.455 L Urine Color Yellow Urine Appearance Cloudy Urine pH 5.0 Ur Specific [place] 1.025 Urine Protein 2+ H Urine Glucose (UA) Negative Urine Ketones 2+ H Urine Occult Blood 3+ H Urine Nitrate Negative Urine Bilirubin 1+ H Ur Bilirubin Confirm Negative Urine Urobilinogen 1.0 Ur Leukocyte Esterase Trace H Urine RBC 10-30/hpf H Urine WBC None seen Amorphous Sediment 4+ Urine Bacteria None seen Ur Culture Indicated? Cult not indicated Chlamy pneumoniae PCR Adenovirus (PCR) B. pertussis DNA (PCR) B.parapertussis DNA PCR Coronavirus OC43 (PCR) Coronavirus HKU1 (PCR) Coronavirus 229E (PCR) SARS-CoV-2 (PCR) Coronavirus NL63 (PCR) Human Metapneumovir PCR Influenza Type A (PCR) Influenza Type B (PCR) M. pneumoniae (PCR) Parainfluenza 1 (PCR) Parainfluenza 2 (PCR) Parainfluenza 3 (PCR) Parainfluenza 4 (PCR) RSV (PCR) Entero/Rhino (PCR) 06/22/22 06/22/22 06/22/22 04:52 04:52 04:52 WBC 5.2 RBC 4.01 L Hgb 10.4 L Hct 32.0 L MCV 79.8 L MCH 26.0 MCHC 32.5 RDW 23.6 H Plt Count 131 L Neut % (Auto) 74.6 Lymph % (Auto) 10.5 L [place] % (Auto) 14.3 H Eos % (Auto) 0.2 L Baso % (Auto) 0.4 Neut # (Auto) 3900 Lymph # (Auto) 500 L [place] # (Auto) 700 Eos # (Auto) 0 Baso # (Auto) 0 Plt Morphology Comment RBC Morphology See below Hypochromasia Anisocytosis 2+ H Microcytosis 1+ H Stomatocytes PT 24.8 H INR 2.1 H APTT Sodium 132 L Potassium 3.4 Chloride 103 Carbon Dioxide 20 L BUN 21 H Creatinine 1.02 Estimated GFR > 60 BUN/Creatinine Ratio 20.6 Glucose 102 Hemoglobin A1c Lactate Calcium 7.1 L Magnesium Total Bilirubin AST ALT Alkaline Phosphatase Troponin I C-Reactive Protein Total Protein Albumin Globulin Albumin/Globulin Ratio Lipase Procalcitonin TSH Urine Color Urine Appearance Urine pH Ur Specific [place] Urine Protein Urine Glucose (UA) Urine Ketones Urine Occult Blood Urine Nitrate Urine Bilirubin Ur Bilirubin Confirm Urine Urobilinogen Ur Leukocyte Esterase Urine RBC Urine WBC Amorphous Sediment Urine Bacteria Ur Culture Indicated? Chlamy pneumoniae PCR Adenovirus (PCR) B. pertussis DNA (PCR) B.parapertussis DNA PCR Coronavirus OC43 (PCR) Coronavirus HKU1 (PCR) Coronavirus 229E (PCR) SARS-CoV-2 (PCR) Coronavirus NL63 (PCR) Human Metapneumovir PCR Influenza Type A (PCR) Influenza Type B (PCR) M. pneumoniae (PCR) Parainfluenza 1 (PCR) Parainfluenza 2 (PCR) Parainfluenza 3 (PCR) Parainfluenza 4 (PCR) RSV (PCR) Entero/Rhino (PCR) 06/22/22 06/22/22 04:52 04:52 WBC RBC Hgb Hct MCV MCH MCHC RDW Plt Count Neut % (Auto) Lymph % (Auto) [place] % (Auto) Eos % (Auto) Baso % (Auto) Neut # (Auto) Lymph # (Auto) [place] # (Auto) Eos # (Auto) Baso # (Auto) Plt Morphology Comment RBC Morphology Hypochromasia Anisocytosis Microcytosis Stomatocytes PT INR APTT Sodium Potassium Chloride Carbon Dioxide BUN Creatinine Estimated GFR BUN/Creatinine Ratio Glucose Hemoglobin A1c 5.3 Lactate Calcium Magnesium Total Bilirubin AST ALT Alkaline Phosphatase Troponin I 0.085 H C-Reactive Protein Total Protein Albumin Globulin Albumin/Globulin Ratio Lipase Procalcitonin TSH Urine Color Urine Appearance Urine pH Ur Specific [place] Urine Protein Urine Glucose (UA) Urine Ketones Urine Occult Blood Urine Nitrate Urine Bilirubin Ur Bilirubin Confirm Urine Urobilinogen Ur Leukocyte Esterase Urine RBC Urine WBC Amorphous Sediment Urine Bacteria Ur Culture Indicated? Chlamy pneumoniae PCR Adenovirus (PCR) B. pertussis DNA (PCR) B.parapertussis DNA PCR Coronavirus OC43 (PCR) Coronavirus HKU1 (PCR) Coronavirus 229E (PCR) SARS-CoV-2 (PCR) Coronavirus NL63 (PCR) Human Metapneumovir PCR Influenza Type A (PCR) Influenza Type B (PCR) M. pneumoniae (PCR) Parainfluenza 1 (PCR) Parainfluenza 2 (PCR) Parainfluenza 3 (PCR) Parainfluenza 4 (PCR) RSV (PCR) Entero/Rhino (PCR) [facility] Medical History Alcoholism Anxiety Atrophic gastritis Chronic low back pain Cyst in hand (~2019) Depression Diverticulosis Dizziness Erectile dysfunction Hearing impaired History of colon polyps HTN (hypertension) Hydronephrosis Hyperlipidemia Insomnia Ischemia Nephrolithiasis YAIMA on CPAP Osteoarthritis Paroxysmal atrial fibrillation Paroxysmal atrial flutter Prediabetes Psoriasis Psoriatic arthritis Psoriatic arthropathy Retroperitoneal mass RLS (restless legs syndrome) Sinus congestion Syncope Testosterone deficiency Vitamin D deficiency Surgical History History of ear, nose, and throat (ENT) surgery History of surgery (05/20/22) History of total left knee replacement (TKR) History of total right knee replacement (09/06/18) Hx of bilateral cataract extraction Hx of hernia repair Hx of lithotripsy Hx of tonsillectomy Family History Father No problems noted. Mother No problems noted. Brother No problems noted. Sister No problems noted. Social History household members: spouse Smoking Status: Never smoker alcohol intake: current Assessment & Plan Assessment & Plan narrative: Krunal Mahmood is a 77-year-old male on Xarelto for atrial fibrillation, essential hypertension, sleep apnea with CPAP, psoriasis, hyperlipidemia, and obesity who had a revision of left knee due to dislocation and previous total left knee who presented to the ED with fever, he had been seen the day prior in the ED for acute urinary retention had a catheter placed and was discharged home on tamsulosin. The patient's returned him to the ER today due to concerns regarding possible increasing confusion and fever. 1. Acute cystitis, less likely pneumonia, in the setting of haynes catheterh -chest x-ray demonstrates confluent left basilar opacities, and small left pleural effusion. Respiratory panel negative and he has no clinical symptoms of pneumonia on exam. -given clinical setting, most likely infectious etiology remains urinary given UA at this time. Pending cultures. 2. Urinary retention, acute, status post left knee revision, present on admission -patient continues to have Haynes catheter in place, will discontinue as likely was a post operative obstruction and likely represents source. -continue antibotics, follow up culture. -continue to monitor for bladder outlet obstruction after haynes removal. 3. Status post left knee revision following total left knee, acute on chronic, present on admission -total left knee revision by Dr. Lucy Anna 06/19/2022, appreciate her consultation. Continue oxycodone postoperative pain management 4. Sleep apnea, requiring CPAP, acute on chronic, present on admission -continue CPAP 5. Psoriatic arthritis, chronic, present on admission -continue methotrexate, gabapentin 6. Hyperlipidemia, chronic, present on admission -continue Lipitor 7. Depression, chronic, present on admission -continue bupropion, fluoxetine 8. Obesity, moderate, acute on chronic, present on admission -the patient is at much higher risk for medical and surgical complications due to obesity as it relates to his chronic illnesses:, and acute surgical procedure. The patient's obesity increases the difficulty and complexity of medical and/or surgical interventions, management and increases the chances of poor outcome such as morbidity and mortality as well as impaired wound healing. 9 Myocardial injury - elevated troponin without EKG evidence of ischemia or chest pain. Now improved. Likely in setting of infectious etiologies. 10. History of EtOH - no concerning history for elevated risks of severe withdrawal, but will continue to monitor for now. Code status:Full Surrogate decision maker: Mayra Mhamood Spouse VINNIEJARVIS PCR:Negtive DVT/VTE xarelto Disposition: changed to inpatient, will need to await culture results and improvement prior to discharge home. may be ready for discharge in 1-2 more days. I have utilized all available immediate resources to obtain, update, or review the patient's current medications. I confirmed that the patient's advanced care plan is present, Code status is documented and/or surrogate decision maker is listed in the patient's medical record. I have personally reviewed patient's chart notes from PCP, specialists, diagnostic imaging, and laboratory, Time Spent With Patient Critical Care time: I spent a total of [] minutes of critical care time on this patient's care today; this time is exclusive of procedural time. Quality VTE Deep Vein Thrombosis/Pulmonary Embolism Present on Admission: No
[2022-06-22] MEDS: cefTRIAXone 1,000 MG in SODIUM CHLORIDE 0.9% 100 ML 200 MG IV (17:11)
[2022-06-22] MEDS: RIVAROXABAN 10 MG TABLET 20 MG PO (18:06)
[2022-06-22] MEDS: ATORVASTATIN 20 MG TABLET PO (20:11)
[2022-06-22] MEDS: SENNOSIDES 8.6 MG TABLET 17.2 MG PO (20:11)
[2022-06-23] VITALS (12 sets, daily range): BP systolic 99–131; BP diastolic 33–62; PULSE 59–77; RESP 14–22; TEMP 36.2–36.9; O2SAT 93–97
[2022-06-23 05:30] LABS: INR 2.5 (0.9-1.3); Prothrombin Time 28.4 SECONDS (10.1-12.7)
[2022-06-23 05:33] LABS: Hematocrit 31.3 % (41-53); Hemoglobin 10.2 g/dL (13.5-17.5); Mean Corpuscular HGB Conc 32.5 % (30-36); Mean Corpuscular Hemoglobin 25.6 PG (26-34); Mean Corpuscular Volume 78.7 fL (80-100); Platelet Count 138 X10^3/uL (150-400); Red Blood Cell Count 3.98 X10^6/uL (4.5-5.9); Red Cell Distribution Width 23.1 % (11.6-14.8); White Blood Cell Count 6.3 X10^3/uL (4.5-11.0)
[2022-06-23 05:34] LABS: Add Manual Diff / Slide Review YES
[2022-06-23 05:39] LABS: BUN Creatinine Ratio 23.9 (6-22); Blood Urea Nitrogen 26 mg/dL (9-20); Calcium 7.4 mg/dL (8.4-10.2); Carbon Dioxide 23 mmol/L (22-32); Chloride 101 mmol/L (98-107); Estimated Glomerular Filt Rate > 60 mL/min (>60); Glucose 115 mg/dL (80-110); HEMOLYSIS < 15 (0-50); Potassium 3.3 mmol/L (3.4-5.1); Sodium 133 mmol/L (137-145)
[2022-06-23 07:05] LABS: Anisocytosis 2+; Microcytosis 1+; Neutrophils Absolute Manual 4473 /uL (3000-5900); Total Cells Counted 100
[2022-06-23 07:06] LABS: Hypochromasia 1+
[2022-06-23] MEDS: METOPROLOL ER 50 MG TABLET PO (09:24)
[2022-06-23] MEDS: predniSONE 20 MG TABLET 40 MG PO (09:24)
[2022-06-23] MEDS: buPROPion XL 150 MG TAB PO (09:24)
[2022-06-23] MEDS: FLUoxetine 20 MG CAPSULE PO (09:24)
[2022-06-23] MEDS: TAMSULOSIN 0.4 MG CAPSULE PO (09:25)
[2022-06-23] MEDS: POTASSIUM CHLORIDE 20 MEQ TAB 40 MEQ PO ×2 (09:26→16:50)
--- NOTE | 2022-06-23 10:48 | PM.PN.1 ---
Subjective Subjective Date Patient Seen: 06/23/22 Time Patient Seen: 10:49 Interval history: Pt seen by Dr Anna. About to participate with PT. Mora out, has voided a small volume of urine since removal. Exam Vital Signs (past 8 hours): - 06/23/22 05:30 06/23/22 05:00 06/23/22 08:57 Temperature 97.9 F 97.2 F L Pulse Rate 59 L 65 Respiratory Rate 20 18 Blood Pressure 104/33 L 111/52 L Pulse Oximetry 94 94 95 Oxygen Delivery Method Room Air CPAP Oxygen Flow Rate 0 0 06/23/22 09:24 06/23/22 09:54 Temperature Pulse Rate 65 63 Respiratory Rate Blood Pressure 111/52 L Pulse Oximetry Oxygen Delivery Method Oxygen Flow Rate Oxygen Delivery Method Room Air,CPAP Oxygen Flow Rate 0 Narrative Exam Narrative: Mild generalized swelling in LLE. Dressing CDI. Objective Labs Result Diagrams: 06/23/22 05:10 06/23/22 05:10 Labs: Laboratory Results - last 24 hr 06/23/22 06/23/22 06/23/22 05:10 05:10 05:10 WBC 6.3 RBC 3.98 L Hgb 10.2 L Hct 31.3 L MCV 78.7 L MCH 25.6 L MCHC 32.5 RDW 23.1 H Plt Count 138 L Neut % (Auto) Not Reportable Lymph % (Auto) Not Reportable [place] % (Auto) Not Reportable Eos % (Auto) Not Reportable Baso % (Auto) Not Reportable Lymph # (Auto) Not Reportable [place] # (Auto) Not Reportable Baso # (Auto) Not Reportable Total Counted 100 Seg Neutrophils % 67.0 Band Neutrophils % 4.0 Lymphocytes % (Manual) 13.0 L Monocytes % (Manual) 16.0 H Neutrophils # (Manual) 4473 RBC Morphology See below Hypochromasia 1+ H Anisocytosis 2+ H Microcytosis 1+ H PT 28.4 H INR 2.5 H Sodium 133 L Potassium 3.3 L Chloride 101 Carbon Dioxide 23 BUN 26 H Creatinine 1.09 Estimated GFR > 60 BUN/Creatinine Ratio 23.9 H Glucose 115 H Calcium 7.4 L PFSH Medical History Alcoholism Anxiety Atrophic gastritis Chronic low back pain Cyst in hand (~2019) Depression Diverticulosis Dizziness Erectile dysfunction Hearing impaired History of colon polyps HTN (hypertension) Hydronephrosis Hyperlipidemia Insomnia Ischemia Nephrolithiasis YAIMA on CPAP Osteoarthritis Paroxysmal atrial fibrillation Paroxysmal atrial flutter Prediabetes Psoriasis Psoriatic arthritis Psoriatic arthropathy Retroperitoneal mass RLS (restless legs syndrome) Sinus congestion Syncope Testosterone deficiency Vitamin D deficiency Surgical History History of ear, nose, and throat (ENT) surgery History of surgery (05/20/22) History of total left knee replacement (TKR) History of total right knee replacement (09/06/18) Hx of bilateral cataract extraction Hx of hernia repair Hx of lithotripsy Hx of tonsillectomy Family History Father No problems noted. Mother No problems noted. Brother No problems noted. Sister No problems noted. Social History household members: spouse Smoking Status: Never smoker alcohol intake: current Assessment & Plan Assessment and plan (1) Acute urinary retention: Status: Acute Plan: UA no growth thus far. Disposition per hospitalist service. (2) S/P knee surgery: Status: Acute Plan: Multimodal pain control, outpt PT after discharge. F/u w/ Dr Anna in 2 weeks as scheduled. Time Spent With Patient Critical Care time: I spent a total of [] minutes of critical care time on this patient's care today; this time is exclusive of procedural time. Quality VTE Deep Vein Thrombosis/Pulmonary Embolism Present on Admission: No
--- NOTE | 2022-06-23 10:54 | PT.IPTN ---
Current Diagnoses Effusion, left knee (06/21/22) Other retention of urine (06/21/22) Unspecified dislocation of left knee, initial encounter (06/21/22) Personal history of diseases of the skin and subcutaneous tissue (06/21/22) Personal history of other drug therapy (06/21/22) Other specified postprocedural states (06/21/22) Physical Therapy Treatment Note M2 PT-IP Current Condition Start: 06/22/22 08:50 Freq: NEEDED Status: Active Protocol: Document 06/23/22 10:23 SP (Rec: 06/23/22 11:52 SP [id number]) Physical Therapy Current Condition Current Condition Evaluation Date 06/22/22 Treatment Diagnosis pneumonia, L knee pain, difficulty in walking Onset Date 06/21/22 M3 PT-IP Subjective Start: 06/22/22 08:50 Freq: NEEDED Status: Active Protocol: Document 06/23/22 10:23 SP (Rec: 06/23/22 11:52 SP [id number]) Subjective Physical Therapy Visit Type Type Treatment Note Visit Start Time 10:23 Visit Stop Time 10:54 Total Visit Minutes [address] Anna entered room during tx. Physical Therapy Visit Comments Patient Comments Pt is willing to participate with PT. Patient Goals return home with to assist him. Therapy Pain Assessment Pain When Pain Assessed During Mobility Pain Present Pain Present Pain Reported Location left knee Scale Used 3 Description With Movement Pain Management Techniques Distraction,Re-positioning M4 PT-IP Mobility and Gait Start: 06/22/22 08:50 Freq: NEEDED Status: Active Protocol: Document 06/23/22 10:23 SP (Rec: 06/23/22 11:52 SP [id number]) PT-Bed Mobility Assessment Supine to Sit Supine to Sit Moderate Assistance,1 Person Assistance Sit to Supine Sit to Supine Standby Assistance Scooting Scooting to Edge of Bed Standby Assistance PT-Transfer Assessment Sit to and From Stand Sit to and from Stand Standby Assistance,Contact Guard Assistance,Use of Upper Extremities Equipment Transfer Assistive Device Gait Belt,Front Wheeled Walker Orthotic/Prosthetic Devices or Brace: No Transfers Transfer Destination Bed Transfer Technique pt ambulated with FWW Transfer Ability Level of Assist Standby Assistance,Use of Upper Extremities Comments Mobility Comments Pt CAPITAN GRANDE and requires repeated directioning when needed, instructed post op ex 5 reps each, did not recall previous being given (provided HOs for recall), requires SBA elevated supine>sit, Mod A HOB flat ( support trunk righting and pull from therapist hand, recommended acquiring bed rail for home), SBA sit>supine. SBA sit<>stand SBA w/ fWW with cues for proper hand placement push from bed stand and sit slow controlled, tends to flop sit onto bed. Gait w/ FWW around room 30 ft, to bathroom x2 SBA safety cues FWW positioning over toilet, tends put off to side, stable L grab bar use urinal in standing, no trunk sways/ LOB. Standing at sink cues FWW safety positioning facing sink , good stability unsupported. Completed ascend/descend 1 PF step has to enter home from garage safety CGA and support for FWW positioning, cues for proper ascend LLE, descend RLE CGA. Pt returned to bed SBA. BOOKING PRIZER updated communication board. Pt is ok to return home when medically cleared. Gait Assessment Gait Gait Assistance Required: Standby Assistance Distance (Feet) 30 Able to Maintain Weight Bearing Status Yes During Gait Assistive Devices Assistive Device Gait Belt,Front Wheeled Walker Orthotic/Prosthetic Devices or Brace: No Gait Deviations General Gait Pattern Antalgic,Flexed Trunk Factors Limiting Gait Function Factors Limiting Gait Function Decreased Strength,Difficulty Following Directions,Poor Safety Awareness,Respiratory Distress Comments Gait Comments Pt requires cues for safety hand and FWW positioning during mobility. Stair Climbing Assessment Evaluation Level of Assist On Stairs Contact Guard Assistance Devices Stair Climbing Assistive Devices Front Wheel Walker Technique/Endurance Stair Climbing Direction Ascend and Descend Stair Climbing Technique Step to Step Number of Steps Climbed 1 Stair Climbing Set # Repetitions (reps) 1 Comments Stair Climbing Comments 1 PF step assimulation to enter garage w/ FWW CGA, stable, cues for proper LE patterning LLE ascend/RLE descending. PT-Balance Assessment Sitting Balance and Reactions Static Sitting Balance Ability Normal Dynamic Sitting Balance Ability Normal Standing Balance and Reactions Static Standing Balance Ability Good Dynamic Standing Balance Ability Fair Device Used FWW M5 PT-IP Objective Assessments Start: 06/22/22 08:50 Freq: NEEDED Status: Active Protocol: Document 06/22/22 09:48 AW (Rec: 06/22/22 11:41 AW [id number]) Orientation Orientation/Cognition Level of Alertness Confusional State Orientation Name,Place,Situation Language Function Ability Hard of Hearing Safety Awareness Decreased Safety Awareness Memory Description Short Term Impaired Gross Range of Motion Lower Extremity ROM Assessment Within Functional Limits Impairments L knee WFL but with increased pain Strength Lower Extremity Strength Hip 4/5 Knee R 4+/5; L 4-/5 Ankle 4+/5 DF Sensation Assessment Sensation Gross Sensation WNL M6 PT-IP Treatment Start: 06/22/22 08:50 Freq: NEEDED Status: Active Protocol: Document 06/23/22 10:23 SP (Rec: 06/23/22 11:52 SP [id number]) Physical Therapy Treatment Exercises Exercises Ankle Pumps,Quad Sets,Heel Slides Education Education Provided Weight Bearing Status,Post-Op Packet,Safety Other Treatments Other Treatment Performed BOOKING PRIZER instructed post op L knee ex: AP, HS, quad sets. Provided HOs for recall due to cues required. Pt stated didn ' remember getting any. M7 PT-IP Assessment and Plan Start: 06/22/22 08:50 Freq: NEEDED Status: Active Protocol: Document 06/23/22 10:23 SP (Rec: 06/23/22 11:52 SP [id number]) PT Summary Assessment and Plan Potential Rehabilitation Potential Good Status of Condition at Evaluation Evolving Summary Impairments Pain,Strength,Balance, Cognition,Bed Mobility, Transfers,Gait,Activity Tolerance Progress Towards Goals Progressing Toward Goals,Slow Progress due to Medical Issues ,Slow Progress due to Activity Tolerance Assessment Summary Pt demonstrates SOB during activitiy, cues for slow breath for safety, was unaware of increased respiratory rate . Mod A for supine>sit with HOB flat (has to peform at home), all other mobilty SBA w / FWW, CGA for 1 PF step mgt. Pt is CAPITAN GRANDE and requires safety cues for proper hand and FWW positioning for stability which the can provide him . Recommending HHPT for further strengthening and mobility when medically cleared. BOOKING PRIZER recommended acquiring a bed rail for self I, provided places to call for DME needs in [facility]. Goals Bed Mobility Goal Independent Transfer Goal Standby Assistance,Front Wheeled Walker Gait Goal Standby Assistance,Front Wheel Walker Gait Distance 100 Other Goals - up/down one step SBA Days to Meet Goals 5 Frequency of Treatment Frequency Of Treatment Once a Day Treatment Plan Physical Therapy Treatment Plan Bed Mobility Training,Transfer Training,Gait Training, Therapeutic Exercise,Balance Retraining,Post Op Education, Discharge Planning,Hot or Cold Pack,Neuromuscular Re-ed Other Recommendations and Next Treatment Gait further distance w/FWW, Focus Weight Bearing Status Weight Bearing Status Weight Bear as Tolerated Allowed Weight Bearing Amount (enter % WBAT LLE or #) (%) Recommendations To Nursing Amount of Assist Needed Standby Assistance,1 Person Assist Discharge Recommendations PT Discharge Recommendations Home with Assistance,Home Health Equipment Needed for Home Before Bedrail Discharge Transportation Needs at Discharge Private Vehicle
[2022-06-23] MEDS: LIDOCAINE 2% (GLYDO) 6 ML GEL TOP (12:30)
--- NOTE | 2022-06-23 16:12 | OT.IPNOTE ---
Pt refusing OT services as he feels does not needs any assist. To double check with pt tomorrow.
--- NOTE | 2022-06-23 16:38 | PM.PN.1 ---
Subjective Subjective Date Patient Seen: 06/23/22 Interval history: 77 M with recent knee revision 2 days prior to admission, who was admitted with fever. Had urinary retention with haynes catheter, urine does have RBCs but minimal WBCs but was sent for culture which has no growth, but this remains his most likely source at this time. Seen by orthopedics, not concerned for knee as the source at this time. Will continue on ceftriaxone for presumed urinary infection at this time. He continues to feel generalized malaise, he does not have significant knee pain chest pain, cough, palpitations, abdominal pain, nausea or vomiting. Haynes was attempted to be removed, he was able to void about 100 cc but had 450 cc remaining in his bladder. Haynes catheter was placed for continued urinary retention. Exam Vital Signs (past 8 hours): - 06/23/22 08:57 06/23/22 09:24 06/23/22 09:54 Temperature 97.2 F L Pulse Rate 65 65 63 Respiratory Rate 18 Blood Pressure 111/52 L 111/52 L Pulse Oximetry 95 Oxygen Flow Rate 0 06/23/22 13:00 Temperature 98.3 F Pulse Rate 77 Respiratory Rate 22 Blood Pressure 105/36 L Pulse Oximetry 93 Oxygen Flow Rate 0 Oxygen Delivery Method Room Air,CPAP Oxygen Flow Rate 0 Narrative Exam Narrative: General: Patient is a well-developed, well-nourished in no distress at this time. HEENT: Normocephalic, atraumatic, extraocular muscles intact, oral pharynx is clear and mucous membranes are moist. Neck is supple and symmetric, trachea is midline, no adenopathy, no thyroid enlargement, nontender, no masses palpated. Patient wearning nasal CPAP. Chest: Normal AP diameter and contour without kyphoscoliosis, no nasal flaring, retractions, or labored breathing. Lungs: CTA b/l no wheezes rhonchi or rales. Cardio: RRR no m/r/g. Abdomen: S NT ND, haynes in place with clear yellow urine. MSK: L knee tenderness as expected after surgery without erythema, warmth, or pain with movement Skin: Warm dry and intact without rashes, ulcerations or petechiae. Neuro: Alert and orientated x3, strength is +5/5 in all extremities, sensation to touch intact, no gross deficits noted of cranial nerves. Psych: Patient has a well-kept appearance, appropriate affect, mental status attitude thought context and judgment are appropriate for age. Objective Labs Result Diagrams: 06/23/22 05:10 06/23/22 05:10 Labs: Laboratory Results - last 24 hr 06/23/22 06/23/22 06/23/22 05:10 05:10 05:10 WBC 6.3 RBC 3.98 L Hgb 10.2 L Hct 31.3 L MCV 78.7 L MCH 25.6 L MCHC 32.5 RDW 23.1 H Plt Count 138 L Neut % (Auto) Not Reportable Lymph % (Auto) Not Reportable Mckinley % (Auto) Not Reportable Eos % (Auto) Not Reportable Baso % (Auto) Not Reportable Lymph # (Auto) Not Reportable Mckinley # (Auto) Not Reportable Baso # (Auto) Not Reportable Total Counted 100 Seg Neutrophils % 67.0 Band Neutrophils % 4.0 Lymphocytes % (Manual) 13.0 L Monocytes % (Manual) 16.0 H Neutrophils # (Manual) 4473 RBC Morphology See below Hypochromasia 1+ H Anisocytosis 2+ H Microcytosis 1+ H PT 28.4 H INR 2.5 H Sodium 133 L Potassium 3.3 L Chloride 101 Carbon Dioxide 23 BUN 26 H Creatinine 1.09 Estimated GFR > 60 BUN/Creatinine Ratio 23.9 H Glucose 115 H Calcium 7.4 L PFSH Medical History Alcoholism Anxiety Atrophic gastritis Chronic low back pain Cyst in hand (~2019) Depression Diverticulosis Dizziness Erectile dysfunction Hearing impaired History of colon polyps HTN (hypertension) Hydronephrosis Hyperlipidemia Insomnia Ischemia Nephrolithiasis YAIMA on CPAP Osteoarthritis Paroxysmal atrial fibrillation Paroxysmal atrial flutter Prediabetes Psoriasis Psoriatic arthritis Psoriatic arthropathy Retroperitoneal mass RLS (restless legs syndrome) Sinus congestion Syncope Testosterone deficiency Vitamin D deficiency Surgical History History of ear, nose, and throat (ENT) surgery History of surgery (05/20/22) History of total left knee replacement (TKR) History of total right knee replacement (09/06/18) Hx of bilateral cataract extraction Hx of hernia repair Hx of lithotripsy Hx of tonsillectomy Family History (Reviewed 06/21/22 @ 23:10 by Kamila Mora [facility]) Father No problems noted. Mother No problems noted. Brother No problems noted. Sister No problems noted. Social History household members: spouse Smoking Status: Never smoker alcohol intake: current Assessment & Plan Assessment & Plan narrative: Krunal Mahmood is a 77-year-old male on Xarelto for atrial fibrillation, essential hypertension, sleep apnea with CPAP, psoriasis, hyperlipidemia, and obesity who had a revision of left knee due to dislocation and previous total left knee who presented to the ED with fever, he had been seen the day prior in the ED for acute urinary retention had a catheter placed and was discharged home on tamsulosin. The patient's returned him to the ER due to concerns regarding possible increasing confusion and fever. 1. Acute cystitis, less likely pneumonia, in the setting of haynes catheterh -chest x-ray demonstrates confluent left basilar opacities, and small left pleural effusion. Respiratory panel negative and he has no clinical symptoms of pneumonia on exam. -given clinical setting, most likely infectious etiology remains urinary given UA at this time. Pending cultures. 2. Urinary retention, acute, status post left knee revision, present on admission -patient continues to have Haynes catheter in place after failing trial of void today with 450 cc remaining after 100 cc void. -continue antibotics, cultures are negative. 3. Status post left knee revision following total left knee, acute on chronic, present on admission -total left knee revision by Dr. Lucy Anna 06/19/2022, appreciate her consultation. Continue oxycodone postoperative pain management 4. Sleep apnea, requiring CPAP, acute on chronic, present on admission -continue CPAP 5. Psoriatic arthritis, chronic, present on admission -continue methotrexate, gabapentin 6. Hyperlipidemia, chronic, present on admission -continue Lipitor 7. Depression, chronic, present on admission -continue bupropion, fluoxetine 8. Obesity, moderate, acute on chronic, present on admission -the patient is at much higher risk for medical and surgical complications due to obesity as it relates to his chronic illnesses:, and acute surgical procedure. The patient's obesity increases the difficulty and complexity of medical and/or surgical interventions, management and increases the chances of poor outcome such as morbidity and mortality as well as impaired wound healing. 9 Myocardial injury - elevated troponin without EKG evidence of ischemia or chest pain. Now improved. Likely in setting of infectious etiologies. 10. History of EtOH - no concerning history for elevated risks of severe withdrawal, but will continue to monitor for now. Code status:Full Surrogate decision maker: Mayra Mahmood Spouse COVID PCR:Negtive DVT/VTE xarelto Disposition: changed to inpatient, anticipate discharge home tomorrow if patient remains afebrile and cultures remain negative. I have utilized all available immediate resources to obtain, update, or review the patient's current medications. I confirmed that the patient's advanced care plan is present, Code status is documented and/or surrogate decision maker is listed in the patient's medical record. I have personally reviewed patient's chart notes from PCP, specialists, diagnostic imaging, and laboratory, Time Spent With Patient Critical Care time: I spent a total of [] minutes of critical care time on this patient's care today; this time is exclusive of procedural time. Quality VTE Deep Vein Thrombosis/Pulmonary Embolism Present on Admission: No
[2022-06-23] MEDS: RIVAROXABAN 10 MG TABLET 20 MG PO (16:50)
[2022-06-23] MEDS: cefTRIAXone 1,000 MG in SODIUM CHLORIDE 0.9% 100 ML 200 MG IV (16:50)
[2022-06-23] MEDS: GABAPENTIN 300 MG CAPSULE PO (20:19)
[2022-06-23] MEDS: ATORVASTATIN 20 MG TABLET PO (20:19)
[2022-06-24 05:00] VITALS: O2SAT 97
[2022-06-24 05:24] VITALS: BP 110/65; PULSE 65; RESP 18; TEMP 36.3; O2SAT 97
[2022-06-24 05:27] LABS: Magnesium 2.4 mg/dL (1.6-2.3)
[2022-06-24 05:28] LABS: BUN Creatinine Ratio 26.4 (6-22); Blood Urea Nitrogen 23 mg/dL (9-20); Calcium 7.3 mg/dL (8.4-10.2); Carbon Dioxide 21 mmol/L (22-32); Chloride 104 mmol/L (98-107); Estimated Glomerular Filt Rate > 60 mL/min (>60); Glucose 107 mg/dL (80-110); HEMOLYSIS < 15 (0-50); Potassium 3.9 mmol/L (3.4-5.1); Sodium 132 mmol/L (137-145)
--- NOTE | 2022-06-24 08:32 | P.PN_ITS ---
Subjective Subjective Date Patient Seen: 06/24/22 Time Patient Seen: 08:32 Interval history: The patient currently has no left knee pain. He is back on his Xarelto for AFib and DVT prophylaxis. He has many concerns today, specifically about his urinary retention and seeing a urologist. He also notes he is had low blood pressure, but is asymptomatic, denies any dizziness or lightheadedness. He denies any current fevers, chills, night sweats. He is status post left total knee arthroplasty poly liner exchange for recurrent dislocations on 06/19/[address] Anna. He was readmitted day after his discharge from surgery due to his fever and urinary retention. Blood cultures and urine cultures have demonstrated no growth to date, after 48 hours. Exam Vital Signs (past 8 hours): - 06/24/22 05:00 06/24/22 05:24 Temperature 97.3 F L Pulse Rate 65 Respiratory Rate 18 Blood Pressure 110/65 Pulse Oximetry 97 97 Oxygen Delivery Method Room Air CPAP Oxygen Delivery Method Room Air,CPAP Oxygen Flow Rate 0 Narrative Exam Narrative: Pleasant 77-year-old male, resting comfortably in bed, no acute distress. Left knee bandage demonstrates a few pinpoint bloody areas of drainage, no chuyita pus. There is significant surrounding ecchymosis and subsequent warmth, no erythema or induration. Bilateral lower extremity: Motor functions are grossly intact, sensation is grossly intact to light touch, calves are soft and nontender to palpation. Objective Labs Result Diagrams: 06/23/22 05:10 06/24/22 05:03 Labs: Laboratory Results - last 24 hr 06/24/22 06/24/22 05:03 05:03 Sodium 132 L Potassium 3.9 Chloride 104 Carbon Dioxide 21 L BUN 23 H Creatinine 0.87 Estimated GFR > 60 BUN/Creatinine Ratio 26.4 H Glucose 107 Calcium 7.3 L Magnesium 2.4 H [facility] Medical History Alcoholism Anxiety Atrophic gastritis Chronic low back pain Cyst in hand (~2019) Depression Diverticulosis Dizziness Erectile dysfunction Hearing impaired History of colon polyps HTN (hypertension) Hydronephrosis Hyperlipidemia Insomnia Ischemia Nephrolithiasis YAIMA on CPAP Osteoarthritis Paroxysmal atrial fibrillation Paroxysmal atrial flutter Prediabetes Psoriasis Psoriatic arthritis Psoriatic arthropathy Retroperitoneal mass RLS (restless legs syndrome) Sinus congestion Syncope Testosterone deficiency Vitamin D deficiency Surgical History History of ear, nose, and throat (ENT) surgery History of surgery (05/20/22) History of total left knee replacement (TKR) History of total right knee replacement (09/06/18) Hx of bilateral cataract extraction Hx of hernia repair Hx of lithotripsy Hx of tonsillectomy Family History Father No problems noted. Mother No problems noted. Brother No problems noted. Sister No problems noted. Social History household members: spouse Smoking Status: Never smoker alcohol intake: current Assessment & Plan Assessment & Plan narrative: Assessment: stable status post left total knee arthroplasty poly liner exchange for recurrent dislocations on 06/19/[address] Anna; Being managed by hospitalist: 1. Acute cystitis, less likely pneumonia, in the setting of haynes catheterh -chest x-ray demonstrates confluent left basilar opacities, and small left pleural effusion. Respiratory panel negative and he has no clinical symptoms of pneumonia on exam. -given clinical setting, most likely infectious etiology remains urinary given UA at this time. Pending cultures. 2. Urinary retention, acute, status post left knee revision, present on admission -patient continues to have Haynes catheter in place after failing trial of void today with 450 cc remaining after 100 cc void. -continue antibotics, cultures are negative. 3. Sleep apnea; Psoriatic arthritis;Hyperlipidemia; Depression; Obesity; Myoca rdial injury; History of EtOH Plan: -mobilize with PT. Weightbearing as tolerated with front wheel walker or cane -continue with multimodal pain management -continue with Xarelto for DVT prophylaxis and AFib -follow-up with Dr. Anna as scheduled in approximately 2 weeks for postoperative visit -appreciate other medical issues being managed by hospitalist Time Spent With Patient Critical Care time: I spent a total of [] minutes of critical care time on this patient's care today; this time is exclusive of procedural time. Quality VTE Deep Vein Thrombosis/Pulmonary Embolism Present on Admission: No
--- NOTE | 2022-06-24 08:33 | P.DS_ITS ---
History of Present Illness History of Present Illness Date Patient Seen: 06/24/22 Time Patient Seen: 08:33 Chief complaint: Altered Narrative: Krunal Mahmood is a 77-year-old male on Xarelto for atrial fibrillation, essential hypertension, sleep apnea with CPAP, psoriasis, hyperlipidemia, and obesity who had a revision of left knee due to dislocation and previous total left knee who presented to the ED with fever, he had been seen the day prior in the ED for acute urinary retention had a catheter placed and was discharged home on tamsulosin. The patients advised the ED that she did not appreciate any weakness but perhaps some mild confusion. Patient denies chest pain, shortness of breath, abd pain,nausea, vomiting. Patient advised the ED he is having bowel movements no diarrhea black or bloody stools.?But he reported on admit to no BM since 06/19 prior to surgery. Catheter has been in place draining well, denied decrease in urine output.? No lateralizing weakness.? No slurred speech appreciated.? Denies s/p left knee redness, warmth, or inflammation.? Denies cough,cold, congestive symptoms, and is fully vaccinated for flu, COVID, pneu monia. Dr. Aranda in [place] is PCP.? Dr. Wilkes is cardiology in [place]. On admit to the floor patient is stable in no distress denies pain or discomfort at this time. Patient is febrile 102.5, BP 128/60, HR 81, RR 22, O2 saturation 95% on room air. Patient's H&H is stable 11.2/34.2, sodium 133, calcium 8.1, patient does have a supratherapeutic INR PT 28.9, INR 2.5, PTT 80, lactate, pro calcitonin, and respiratory panel are all WNL. Patient's chest x-ray demonstrates confluent left basilar opacities, and small left pleural effusion. Patient admitted for left lobe pneumonia, supratherapeutic INR status post left knee revision. Dr. Aponte orthopedics was consulted in ED and is aware of patient. Discharge Providers Provider Date of admission: 06/21/22 23:23 Discharge Date: 06/24/22 Primary care physician: Kavita Aranda MD Consults: 06/21/22 22:59 Consult to Physical Therapy Evaluate & Treat Comment: s/p lt knee 06/19 Physician Instructions: Evaluate and Treat 06/21/22 23:00 Consult to Dietitian, Adult Routine Comment: Reason For Exam: BMI 34.4 Consult to Occupational Therapy Evaluate & Treat Comment: s/p lt knee 06/19 Physician Instructions: Evaluate and treat 06/21/22 23:04 Consult to Orthopedic Surgery Stat Comment: Consulting Provider: Kamar Aponte Reason for consultation: S/pLt knee 06/19-joint effusion Has provider been notified: Yes 06/22/22 04:45 Consult to Discharge Planning Routine Comment: Discharge provider: Evens Edwards DO Summary Hospital Course Discharge Diagnosis: Please see hospital course by problem list noted below Hospital Course: Krunal Mahmood is a 77-year-old male on Xarelto for atrial fibrillation, essential hypertension, sleep apnea with CPAP, psoriasis, hyperlipidemia, and obesity who had a revision of left knee due to dislocation and previous total left knee who presented to the ED with fever, he had been seen the day prior in the ED for acute urinary retention had a catheter placed and was discharged home on tamsulosin.? The patient's returned him to the ER due to concerns regarding possible increasing confusion and fever. He was admitted with fever to 102, ultimately cultures revealed no source but presumed source was urinary based on presentation. He eventually improved and was a febrile with negative culture results, and was discharged home to continue home health after his recent knee surgery. 1. Acute cystitis, less likely pneumonia, in the setting of haynes catheterh -chest x-ray demonstrated confluent left basilar opacities, and small left pleural effusion. Respiratory panel negative and he has no clinical symptoms of pneumonia on exam. -given clinical setting, most likely infectious etiology remains urinary given UA at this time. Cultures at the time of discharge are currently without growth. continued antibotics at discharge with augmentin to cover for urinary and less likely pulmonary sources, cultures are negative. 2. Urinary retention, acute, status post left knee revision, present on admission -patient continues to have Haynes catheter in place after he failed trial of void during his hospitalization with 450 cc remaining after 100 cc void. -outpatient follow up with urology is recommended at discharge for his urinary retention. 3. Status post left knee revision following total left knee, acute on chronic, present on admission -total left knee revision by Dr. Lucy Anna 06/19/2022, appreciate her consul tation but did not feel like the knee was contributory to patient's infectious picture. Continued oxycodone postoperative pain management 4. Sleep apnea, requiring CPAP, acute on chronic, present on admission -continued CPAP 5. Psoriatic arthritis, chronic, present on admission -held methotrexate given infection, continue to hold while on augmentin at discharge until antibiotics are completed. This was discussed with the patient. - Continued gabapentin 6. Hyperlipidemia, chronic, present on admission -continued Lipitor 7. Depression, chronic, present on admission -continued bupropion, fluoxetine 8. Obesity, moderate, acute on chronic, present on admission -the patient is at much higher risk for medical and surgical complications due to obesity as it relates to his chronic illnesses:, and acute surgical procedure.? The patient's obesity increases the difficulty and complexity of medical and/or surgical interventions, management and increases the chances of poor outcome such as morbidity and mortality as well as impaired wound healing. 9 Myocardial injury ?- elevated troponin without EKG evidence of ischemia or chest pain. Now improved. Likely in setting of infectious etiologies. 10. History of EtOH ?- no concerning history for alcohol withdrawal and he did not develop symptoms while admitted. He was counseled on alcohol cessation, he drinks about a bottle of wine daily per spouse. Time Spent with Patient Time spent: Greater than 30 minutes Exam Vital Signs (past 8 hours): - 06/24/22 05:00 06/24/22 05:24 Temperature 97.3 F L Pulse Rate 65 Respiratory Rate 18 Blood Pressure 110/65 Pulse Oximetry 97 97 Oxygen Delivery Method Room Air CPAP Oxygen Delivery Method Room Air,CPAP Oxygen Flow Rate 0 Narrative Exam Narrative: General: Patient is a well-developed, well-nourished in no distress at this time. HEENT: Normocephalic, atraumatic, extraocular muscles intact, oral pharynx is clear and mucous membranes are moist. Neck is supple and symmetric, trachea is midline, no adenopathy, no thyroid enlargement, nontender, no masses palpated. Patient wearning nasal CPAP. Chest: Normal AP diameter and contour without kyphoscoliosis, no nasal flaring, retractions, or labored breathing. Lungs: CTA b/l no wheezes rhonchi or rales. Cardio: RRR no m/r/g. Abdomen: S NT ND, haynes in place with clear yellow urine. MSK: L knee tenderness as expected after surgery without erythema, warmth, or pain with movement Skin: Warm dry and intact without rashes, ulcerations or petechiae. Neuro: Alert and orientated x3, strength is +5/5 in all extremities, sensation to touch intact, no gross deficits noted of cranial nerves. Psych: Patient has a well-kept appearance, appropriate affect, mental status attitude thought context and judgment are appropriate for age. Objective Labs Result Diagrams: 06/23/22 05:10 06/24/22 05:03 Labs: Laboratory Results - last 24 hr 06/24/22 06/24/22 05:03 05:03 Sodium 132 L Potassium 3.9 Chloride 104 Carbon Dioxide 21 L BUN 23 H Creatinine 0.87 Estimated GFR > 60 BUN/Creatinine Ratio 26.4 H Glucose 107 Calcium 7.3 L Magnesium 2.4 H [facility] Medical History Alcoholism Anxiety Atrophic gastritis Chronic low back pain Cyst in hand (~2019) Depression Diverticulosis Dizziness Erectile dysfunction Hearing impaired History of colon polyps HTN (hypertension) Hydronephrosis Hyperlipidemia Insomnia Ischemia Nephrolithiasis YAIMA on CPAP Osteoarthritis Paroxysmal atrial fibrillation Paroxysmal atrial flutter Prediabetes Psoriasis Psoriatic arthritis Psoriatic arthropathy Retroperitoneal mass RLS (restless legs syndrome) Sinus congestion Syncope Testosterone deficiency Vitamin D deficiency Surgical History History of ear, nose, and throat (ENT) surgery History of surgery (05/20/22) History of total left knee replacement (TKR) History of total right knee replacement (09/06/18) Hx of bilateral cataract extraction Hx of hernia repair Hx of lithotripsy Hx of tonsillectomy Family History Father No problems noted. Mother No problems noted. Brother No problems noted. Sister No problems noted. Social History household members: spouse Smoking Status: Never smoker alcohol intake: current Discharge Plan Discharge Plan Patient Disposition: Home Health Service Provider Discharge Comment: You were admitted to the hospital with a fever. You improved with antibiotics. Most likely source was a urinary tract infection. You're continuing to have difficulties with urinary retention, and failed a voiding trial here. Discharge orders & Medications Prescriptions: New amoxicillin-pot clavulanate 875-125 mg tablet 1 tab PO BID 7 Days Qty: 14 0RF Continued PreserVision AREDS-2 250-90-40-1 mg Capsule 1 tab PO BID oxycodone 5 mg Tablet 5 mg PO Q4HR PRN (Reason: Moderate to severe postop pain) Qty: 40 0RF Xarelto 20 mg tablet 20 mg PO QPM Qty: 30 0RF Rx Instructions: Resume Xarelto on 06/21/22 metoprolol succinate 50 mg tablet extended release 24 hr 50 mg PO QAM Label Comments: TK 1 T PO QD bupropion HCl 150 mg tablet extended release 24 hr 150 mg PO DAILY atorvastatin 10 mg tablet 20 mg PO QPM gabapentin 300 mg capsule 600 mg PO BEDTIME fluoxetine 20 mg Capsule 20 mg PO DAILY tamsulosin [Flomax] 0.4 mg capsule 0.4 mg PO DAILY Qty: 30 0RF Discontinued methotrexate sodium 2.5 mg tablet 7.5 mg PO SEEINSTR Rx Instructions: 7.5mg paula sun only Follow up/Referrals: Kavita Aranda MD [Primary Care Provider] - Hima Nicholson MD [Physician] - 07/09/22 7:45 am (appt:07/09 @ 0800 w/Dr Nicholson the office is mailing you a new patient packet if you have this filled arrive at 0745 if it is not completed check in time is 0730 the appointment is for post operative urinary retention) Lucy Anna MD [Physician] - As previously scheduled (Follow up with Dr Anna on 07/02/2022 @ 11:00 am at [facility] office in [place].) Diet/Activity/Treatments Diet: Diet as Tolerated Activity: As tolerated Discharge Data Primary Care Provider: Kavita Aranda Quality VTE Deep Vein Thrombosis/Pulmonary Embolism Present on Admission: No
[2022-06-24 09:00] VITALS: BP 112/56; PULSE 64; RESP 20; TEMP 37.3; O2SAT 97
--- NOTE | 2022-06-24 09:04 | CM.DPNOTE ---
Sangeetha Sigala from [facility] said they accepted patient. I faxed over final clinicals, f2f. Kavita Kim, CM Assist.
[2022-06-24] MEDS: TAMSULOSIN 0.4 MG CAPSULE PO (09:14)
[2022-06-24] MEDS: FLUoxetine 20 MG CAPSULE PO (09:14)
[2022-06-24] MEDS: buPROPion XL 150 MG TAB PO (09:14)
[2022-06-24] MEDS: ACETAMINOPHEN 325 MG TABLET 650 MG PO (09:18)
[2022-06-24 09:21] VITALS: BP 110/65; PULSE 65
[2022-06-24] MEDS: METOPROLOL ER 50 MG TABLET PO (09:21)
--- NOTE | 2022-06-24 09:41 | PT.IPTN ---
Current Diagnoses Effusion, left knee (06/21/22) Other retention of urine (06/21/22) Unspecified dislocation of left knee, initial encounter (06/21/22) Personal history of diseases of the skin and subcutaneous tissue (06/21/22) Personal history of other drug therapy (06/21/22) Other specified postprocedural states (06/21/22) Physical Therapy Treatment Note M2 PT-IP Current Condition Start: 06/22/22 08:50 Freq: NEEDED Status: Active Protocol: Document 06/24/22 09:13 SP (Rec: 06/24/22 12:06 SP [id number]) Physical Therapy Current Condition Current Condition Evaluation Date 06/22/22 Treatment Diagnosis pneumonia, L knee pain, difficulty in walking Onset Date 06/21/22 M3 PT-IP Subjective Start: 06/22/22 08:50 Freq: NEEDED Status: Active Protocol: Document 06/24/22 09:13 SP (Rec: 06/24/22 12:06 SP [id number]) Subjective Physical Therapy Visit Type Type Treatment Note Visit Start Time 09:13 Visit Stop Time 09:41 Total Visit Minutes 28 Number of TEST TECH Visits 2 Physical Therapy Visit Comments Patient Comments Pt is willing to participate with PT. Patient Goals return home with to assist him. Therapy Pain Assessment Pain When Pain Assessed During Mobility Pain Present Pain Present Pain Reported Location left knee Intensity 2 Scale Used Numeric (0 - 10) Description Aching Pain Management Techniques Distraction,Re-positioning, Timing of Activity with Medications M4 PT-IP Mobility and Gait Start: 06/22/22 08:50 Freq: NEEDED Status: Active Protocol: Document 06/24/22 09:13 SP (Rec: 06/24/22 12:06 SP [id number]) PT-Bed Mobility Assessment Rolling Type of Rolling Roll to Left Level of Assist Standby Assistance Supine to Sit Supine to Sit Standby Assistance,1 Person Assistance Scooting Scooting to Edge of Bed Independent PT-Transfer Assessment Sit to and From Stand Sit to and from Stand Standby Assistance,Use of Upper Extremities Equipment Transfer Assistive Device Gait Belt,Front Wheeled Walker Orthotic/Prosthetic Devices or Brace: No Transfers Transfer Destination Chair Transfer Technique pt ambulated with FWW/ SPC Transfer Ability Level of Assist Standby Assistance,Contact Guard Assistance,1 Person Assistance,Use of Upper Extremities Comments Mobility Comments Pt completed sup>sit (HOB flat ) demonstrating alot effort, cues LR L and UEs on bed, took 2 attempts before able right self upright, unable sit from supine (trunk weakness). Sit> stand cued push from bed. Gait further distance into hallway w/ FWW approx 200 ft SBA, then trial w/ SPC provided CGA due to little wt shift sways but no LOB 60 ft back to room. When pt returned to room demonstrated L hand hold on end bed frame for support stop rest w/ SPC in RUE. TEST TECH educated little SOB and with demonstration support of bed frame use of FWW especially out in community and may need to lift and advance with snow on ground for safety vs SPC due to amount energy expending and if SPC slips on ground could lose balance, safety concern not back to complete stability with SPC longer distances. Pt verbalized understanding but uncertain agrees. Pt returned to his chair no AD 12 ft, WBOS lateral wt shift heavy stepping gait but no LOB. Cued be sure center front chair and use of chair arm slow descent then good carryover. Pt had call light and all needs in reach, discussed with nursing pt is still a fall risk with cues needed during tx and trunk sways recommending SBA. Nursing stated will watch him and if feel needed will provide chair alarm. Gait Assessment Gait Gait Assistance Required: Standby Assistance,Contact Guard Assist,1 Person Assist Distance (Feet) 260 Able to Maintain Weight Bearing Status Yes During Gait Assistive Devices Assistive Device Gait Belt,Straight Cane,Front Wheeled Walker Orthotic/Prosthetic Devices or Brace: No Gait Deviations General Gait Pattern Antalgic,Flexed Trunk,Lateral Trunk Lean,Wide Based Gait Factors Limiting Gait Function Factors Limiting Gait Function Decreased Activity Tolerance, Decreased Strength,Difficulty Following Directions,Poor Balance,Poor Safety Awareness, Respiratory Distress Comments Gait Comments Cued body closer to FWW more upright posture to allow less BUE WB on FWW in hallway further distance 200 ft SBA, trial SPC gait 60 ft CGA for safety little trunk lateral wt shift stepping WBOS able no LOB but when got to room, contact bed frame support. DIscussed use of FWW in bad weather and longer distance safety breath and energy conservation, SPC makes him exert more and SOB increases. PT-Balance Assessment Sitting Balance and Reactions Static Sitting Balance Ability Normal Dynamic Sitting Balance Ability Normal Standing Balance and Reactions Static Standing Balance Ability Good Dynamic Standing Balance Ability Fair Device Used FWW, Fair w/ SPC M5 PT-IP Objective Assessments Start: 06/22/22 08:50 Freq: NEEDED Status: Active Protocol: Document 06/22/22 09:48 AW (Rec: 06/22/22 11:41 AW [id number]) Orientation Orientation/Cognition Level of Alertness Confusional State Orientation Name,Place,Situation Language Function Ability Hard of Hearing Safety Awareness Decreased Safety Awareness Memory Description Short Term Impaired Gross Range of Motion Lower Extremity ROM Assessment Within Functional Limits Impairments L knee WFL but with increased pain Strength Lower Extremity Strength Hip 4/5 Knee R 4+/5; L 4-/5 Ankle 4+/5 DF Sensation Assessment Sensation Gross Sensation WNL M6 PT-IP Treatment Start: 06/22/22 08:50 Freq: NEEDED Status: Active Protocol: Document 06/24/22 09:13 SP (Rec: 06/24/22 12:06 SP [id number]) Physical Therapy Treatment Exercises Exercises Ankle Pumps,Quad Sets,Heel Slides,Straight Leg Raises Knee ROM Measurement 95 LLE knee flexion AROM Education Education Provided Weight Bearing Status,Post-Op Packet,Safety Other Treatments Other Treatment Performed Improved quad activation able to perform SLR. M7 PT-IP Assessment and Plan Start: 06/22/22 08:50 Freq: NEEDED Status: Active Protocol: Document 06/24/22 09:13 SP (Rec: 06/24/22 12:06 SP [id number]) PT Summary Assessment and Plan Potential Rehabilitation Potential Good Status of Condition at Evaluation Evolving Summary Impairments Pain,Strength,Balance, Cognition,Bed Mobility, Transfers,Gait,Activity Tolerance Progress Towards Goals Progressing Toward Goals,Slow Progress due to Activity Tolerance Assessment Summary Pt SBA bed mob, good amount effort come to supine assimulate flat bed at home but able to self with log roll technique. Improved gait 260 ft moderate BUE WB on FWW SBA, CGA w/ SPC lateral wt shifts WBOS 60 ft and still SOB but less this tx. TEST TECH educated safety education use of FWW for community distance for bad weather and energy conservation support for now until progress. Pt is ok to return home with to assist when medically cleared. TEST TECH recommending HHPT for progressed strengthening, available to assist if needed . Goals Bed Mobility Goal Independent Transfer Goal Standby Assistance,Front Wheeled Walker Gait Goal Standby Assistance,Front Wheel Walker Gait Distance 100 Other Goals - up/down one step SBA Days to Meet Goals 5 Frequency of Treatment Frequency Of Treatment Once a Day Treatment Plan Physical Therapy Treatment Plan Bed Mobility Training,Transfer Training,Gait Training, Therapeutic Exercise,Balance Retraining,Post Op Education, Discharge Planning,Hot or Cold Pack,Neuromuscular Re-ed Other Recommendations and Next Treatment balance testing, gait LRAD. Focus Weight Bearing Status Weight Bearing Status Weight Bear as Tolerated Allowed Weight Bearing Amount (enter % WBAT LLE or #) (%) Recommendations To Nursing Amount of Assist Needed Standby Assistance,1 Person Assist Discharge Recommendations PT Discharge Recommendations Home with Assistance,Home Health Equipment Needed for Home Before Bedrail Discharge Transportation Needs at Discharge Private Vehicle
[2022-06-24 13:00] VITALS: O2SAT 97
--- NOTE | 2022-06-24 13:36 | PC.NURSE ---
Addendum entered by Giuliana Carft R.N. 06/24/22 15:05: Pt's arrived at approximately 1410 this afternoon with daughter to facilitate transporting patient home. She verbalizes understanding of medications and follow up appointments. He is escorted via w/ch by [employer] to private vehicle for transport home with daughter and his . Original Note: Pt is A&Ox3, VSS, afebrile on RA. He reports pain is well controlled with PRN tylenol. Pt ambulates with patient in hallway. Aquacel dressing c/d/I. Patient is infm He is cleared by Ortho team for discharge home, and by hospitalist. Appointment has been made for follow up with Urology Dr. Nicholson on July 09 at 745 a.m. in addition to his post op appointment with ortho for his left knee. Pt's notified of patient's discharge clearance today, and plan for discharge. She informs RN that she will. Patient verbalizes understanding of discharge medications, activity, s/sx of infection, as welll as site care follow up care.
== END 2022-06-24 14:45 | disposition home or self-care (01) | DRG 699 ==
LOC: ED 23:16 → AC 06-22 07:41
PROVIDERS: Admitting Provider Nurse Practitioner Family; Emergency Provider Emergency Medicine; PCP Internal Medicine; Visit Provider Nurse Practitioner Family
DX: T83.511A Infection and inflammatory reaction due to indwelling urethral catheter, initial encounter (principal); I5A Non-ischemic myocardial injury (non-traumatic); N30.00 Acute cystitis without hematuria; R33.9 Retention of urine, unspecified; R79.1 Abnormal coagulation profile; I48.0 Paroxysmal atrial fibrillation; L40.50 Arthropathic psoriasis, unspecified; E78.5 Hyperlipidemia, unspecified; F32.A Depression, unspecified; E66.9 Obesity, unspecified; G47.30 Sleep apnea, unspecified; Z68.36 Body mass index [BMI] 36.0-36.9, adult; Z98.890 Other specified postprocedural states; Z79.01 Long term (current) use of anticoagulants; Z20.822 Contact with and (suspected) exposure to COVID-19
CPT/HCPCS: 36415; 51702; 51798; 70450; 70544; 70551; 71045; 73562; 80048; 80053; 81001; 83036; 83605; 83690; 83735; 84145; 84443; 84484; 85007; 85025; 85610; 85730; 86140; 87040; 87086; 87633; 93005; 96365; 96366; 96367; 96368; 97110; 97116; 97162; 97530; 99283; 99284; J0696; J2543

== ENCOUNTER → 2022-07-09 09:19 | Outpatient (CLI) | payer MEDICARE, OTHER, SELFPAY ==
[2022-06-21 23:37] VITALS: BMI 36.3
== END ==
PROVIDERS: PCP Internal Medicine; Visit Provider Urology
DX: N40.1 Benign prostatic hyperplasia with lower urinary tract symptoms (principal); R33.8 Other retention of urine; R39.9 Unspecified symptoms and signs involving the genitourinary system; N52.01 Erectile dysfunction due to arterial insufficiency; R35.0 Frequency of micturition; R39.15 Urgency of urination; Z79.01 Long term (current) use of anticoagulants
CPT/HCPCS: 87086; 99214

== ENCOUNTER → 2022-07-27 15:21 | Outpatient (CLI) | payer MEDICARE, OTHER, SELFPAY ==
[2022-06-21 23:37] VITALS: BMI 36.3
--- NOTE | 2022-07-27 15:26 | DI.RAD.S_ITS ---
PROCEDURE: XR CHEST 2V INDICATIONS: LUNG FIELD ABNORMAL FINDING ON EXAMINATION TECHNIQUE: 2 views of the chest were acquired. COMPARISON: [facility], , XR CHEST 1V, 06/21/2022, 20:24. [facility], , XR CHEST 1V, 02/05/2018, 15:40. FINDINGS: Surgical changes and devices: None. Lungs and pleura: Lung volumes are low. Mild elevation of the left hemidiaphragm. Minimal platelike opacity left lung base. 1.2 centimeter nodular opacity projects over the right upper lung. No pleural effusion or pneumothorax. Mediastinum: Mediastinal contours are unremarkable. Heart size is normal. Bones and chest wall: No suspicious bony abnormalities. Soft tissues appear unremarkable. IMPRESSION: 1. A 1.2 centimeter nodular opacity projects over the right upper lung. This is a nonspecific finding, could potentially represent a pulmonary nodule, granuloma, rib bone island, artifact, or other etiology. CT of the chest could be obtained for further evaluation if indicated. 2.Low lung volumes with minimal left basilar opacity present likely representing atelectasis. Dictated by: Bharath May M.D. on 07/27/2022 at 17:57 Approved by: Bharath May M.D. on 07/27/2022 at 18:02
== END ==
PROVIDERS: PCP Internal Medicine; Referring Provider Internal Medicine; Visit Provider Internal Medicine
DX: R91.8 Other nonspecific abnormal finding of lung field (principal)
CPT/HCPCS: 71046

== ENCOUNTER 2022-10-05 09:24 | Emergency (ER) | payer MEDICARE, OTHER, SELFPAY ==
[2022-06-21 23:37] VITALS: BMI 36.3
[2022-10-05] VITALS (129 sets, daily range): BP systolic 64–122; BP diastolic 31–62; PULSE 54–83; RESP 12–36; TEMP 36.3–36.7; O2SAT 91–100; BMI 33.0
--- NOTE | 2022-10-05 09:33 | DI.RAD.S_ITS ---
PROCEDURE: XR CHEST 1V INDICATIONS: chest pain TECHNIQUE: One view of the chest was acquired. COMPARISON: [facility], CR, XR CHEST 2V, 07/27/2022, 15:28. [facility], CR, XR CHEST 1V, 06/21/2022, 20:24. FINDINGS: Surgical changes and devices: None. Lungs and pleura: Low lung volumes without dense consolidation or pleural effusion. Previously noted right upper lung possible nodule is not seen on today's study, probably obscured by EKG leads Mediastinum: Heart size is at the upper limit of normal. Bones and chest wall: No suspicious bony lesions. Overlying soft tissues appear unremarkable. IMPRESSION: Low lung volumes, limiting evaluation. No acute radiographic abnormality. Previously seen possible right lung nodule might be obscured by the EKG lead. Dictated by: Miguel Enriquez M.D. on 10/05/2022 at 10:22 Approved by: Miguel Enriquez M.D. on 10/05/2022 at 10:23
--- NOTE | 2022-10-05 09:35 | DI.CT.S_ITS ---
PROCEDURE: CT HEAD/BRAIN WO CON INDICATIONS: hit head on thinners TECHNIQUE: Noncontrast 4.5 mm thick angled axial sections acquired from the foramen magnum to the vertex, with coronal and sagittal reformats. For radiation dose reduction, the following was used: automated exposure control, adjustment of mA and/or kV according to patient size. COMPARISON: [facility], CT, CT HEAD/BRAIN WO CON, 06/21/2022, 22:27. FINDINGS: Image quality: Excellent. CSF spaces: Basal cisterns are patent. No extra-axial fluid collections. The ventricles are symmetric in size and shape. Brain: No intracranial bleeds or masses. There is cerebral volume loss for age, with resultant ventricular and sulcal prominence. There are periventricular and deep white matter chronic small vessel ischemic changes. There is intracranial internal carotid artery atherosclerosis. Skull and face: Calvarium and visualized facial bones appear intact, without suspicious lesions. Sinuses: Stable postsurgical changes of prior sinus surgery. Mastoid air cells are clear. Scattered ethmoid sinus mucosal thickening as before. IMPRESSION: 1. CT head without acute intracranial abnormalities or acute calvarial fractures. 2. Age-related senescent changes and sequela of chronic small vessel ischemic disease. Dictated by: Saleem Thompson M.D. on 10/05/2022 at 10:12 Approved by: Saleem Thompson M.D. on 10/05/2022 at 10:14
--- NOTE | 2022-10-05 09:35 | DI.CT.S_ITS ---
PROCEDURE: CT CERVICAL SPINE WO CON INDICATIONS: hit head on thinners TECHNIQUE: Noncontrast 3 mm thick sections acquired from the skull base to the T4 level. Sagittal and coronal reformats were then constructed. For radiation dose reduction, the following was used: automated exposure control, adjustment of mA and/or kV according to patient size. COMPARISON: [facility], MR, MR ANGIO HEAD WO CON, 06/22/2022, 7:51. FINDINGS: Image quality: Excellent. Bones: No acute fractures or dislocations. No acute compression fractures of the vertebral bodies. Craniocervical junction is intact. C1-C2 relationship is preserved. Visualized superior ribs are intact. Moderate multilevel cervical spondylosis. There is moderate spinal canal stenosis at C4-5 and C5-6. Soft tissues: Prevertebral soft tissues are normal in thickness. No paravertebral hematomas. No apical pneumothoraces. There is a 1.7 cm mildly hypodense lesion within the left thyroid lobe likely representing a thyroid nodule. IMPRESSION: 1. CT cervical spine without acute fracture or traumatic malalignment. 2. Moderate multilevel cervical spondylosis with moderate spinal canal stenosis seen at C4-5 and C5-6. 3. Incidental note of a 1.7 cm suspected left thyroid nodule. Recommend outpatient thyroid ultrasound for further evaluation. Dictated by: Saleem Thompson M.D. on 10/05/2022 at 10:14 Approved by: Saleem Thompson M.D. on 10/05/2022 at 10:22
--- NOTE | 2022-10-05 09:38 | DI.CT.S_ITS ---
PROCEDURE: CT CHEST ABD PEL W CON INDICATIONS: bloody diarrhea intermittent, syncope TECHNIQUE: After the administration of IV contrast, axial sections acquired from the supraclavicular neck to the pubic symphysis. Coronal and sagittal reformats were performed. For radiation dose reduction, the following was used: automated exposure control, adjustment of mA and/or kV according to patient size. COMPARISON: [facility], CT, CT ABDOMEN PELVIS W CON, 03/08/2018, 10:20. FINDINGS: Image quality: Good Lungs and pleura: No overtly suspicious pulmonary nodule. No airspace consolidation or pleural effusions. There is basilar scarring and scattered atelectasis. Mediastinum, heart, and esophagus: Small hiatal hernia and possible epiphrenic diverticulum. Coronary artery calcifications, likely significant. No pathologic adenopathy by size criteria. Chest wall and thyroid: Partially seen left thyroid nodule, consider sonographic evaluation if not previously performed, over 1.5 centimeters. Chest wall is otherwise unremarkable. Solid organs: Cholelithiasis. The liver is unremarkable. The portal vein appears patent. No pathologic dilation of the biliary tree or pancreatic duct. No splenomegaly. No hydronephrosis. Bosniak 1 and 2 renal lesions are present, for which no dedicated followup is necessary per 2019 proposed guidelines. In the retrocaval region, adjacent to the right adrenal gland medial limb, there is low-attenuation lesion measuring 9 by 4.3 centimeters, similar compared to 2018 (axial image 55). Small central calcification. Vessels and lymph nodes: Atherosclerotic calcifications without abdominal aortic aneurysm. Bowel and peritoneum: No evidence of small bowel obstruction. Suspected lipoma in the duodenum again seen. Liquid colonic contents. No significant wall thickening. Few guided particular are present. No pathologic ascites. Body wall: Small fat containing left inguinal hernia. Pelvis: Bladder is under distended, overall unremarkable. Heterogeneous and enlarged prostate, not well evaluated on CT. Bones: No acute or suspicious osseous finding. Degenerative changes are present. There is some rib deformities I do not appear acute. IMPRESSION: Liquid colonic contents suspicious for colitis. No significant wall thickening otherwise. There is also diverticulosis. In the setting of GI bleeding, consider further evaluation with colonoscopy. Consider ultrasound to further evaluate the partially seen left thyroid nodule, if not already obtained elsewhere. Significant coronary calcifications. Stable right upper retroperitoneal soft tissue lesion. Multiple other findings as above. Dictated by: Miguel Enriquez M.D. on 10/05/2022 at 10:43 Approved by: Miguel Enriquez M.D. on 10/05/2022 at 10:50
[2022-10-05 09:51] LABS: Add Manual Diff / Slide Review NO; Basophils Absolute Auto 100 /uL (0-100); Basophils Percent Auto 0.8 % (0-2); Eosinophils Absolute Auto 200 /uL (0-450); Eosinophils Percent Auto 2.4 % (2-4); Hematocrit 26.6 % (41-53); Hemoglobin 8.4 g/dL (13.5-17.5); Lymphocytes Absolute Auto 1500 /uL (1100-4500); Lymphocytes Percent Auto 21.9 % (25-40); Mean Corpuscular HGB Conc 31.4 % (30-36); Mean Corpuscular Hemoglobin 25.6 PG (26-34); Mean Corpuscular Volume 81.3 fL (80-100); Monocytes Absolute Auto 600 /uL (0-900); Monocytes Percent Auto 9.2 % (3-14); Neutrophils Absolute Auto 4500 /uL (1500-7000); Neutrophils Percent Auto 65.7 % (50-75); Platelet Count 233 X10^3/uL (150-400); Red Blood Cell Count 3.27 X10^6/uL (4.5-5.9); Red Cell Distribution Width 22.6 % (11.6-14.8); White Blood Cell Count 6.8 X10^3/uL (4.5-11.0)
--- NOTE | 2022-10-05 09:54 | ED_ITS ---
HPI - Syncope General Chief Complaint: Syncope Stated Complaint: GLF Time Seen by Provider: 10/05/22 09:37 Source: patient and EMS Mode of arrival: EMS Limitations: no limitations History of Present Illness HPI narrative: This is a 77-year-old male on Xarelto for atrial fibrillation, has hypertension, dyslipidemia, chronic arthritis but does not take NSAIDs, restless leg with recent colonoscopy. Patient presents with syncopal episode x2. Patient states he fell but he does not recall how he fell. He did strike the back of his head. States he is little bit headache on the back of his head. He denies neck or back pain. He denies chest pain, no shortness of breath, denies any nausea or vomiting. Denies fevers, denies chills. Did not have any episodes of lightheadedness, denies presyncopal feeling. He states he had a bowel movement this morning after having some lower abdominal pain and states that he did not look for blood so he does not know what it looked like. His states she noticed some red in the stool. Patient states that he has not had syncopal episodes in the past. Patient states that he had a colonoscopy with Dr. Guille nova out of [place] because he is had persistent anemia that has been worsening states he was told he had some polyps, he states they were told there was a spot in the mucosa that they did not like and were planning to CT his abdomen pelvis to see if there was a mass or change. Patient states he is on amlodipine and metoprolol for hypertension. He took his medications last night but has not taken his morning medications. He is had prior knee surgery x2 and hernia repair. Denies any other cardiac interventions or abdominal surgeries. No known drug allergies. No tobacco, drinks 3 alcoholic drinks daily, states no alcohol today. No illicit. Kavita Lima is his primary care out [place], his cardiology is via [facility]. Related Data Home Medications Medication Instructions Recorded Confirmed atorvastatin 10 mg tablet 20 mg PO QPM 02/05/18 08/14/22 bupropion HCl 150 mg 24 hr tablet, 150 mg PO DAILY 02/05/18 08/14/22 extended release gabapentin 300 mg capsule 600 mg PO BEDTIME 02/05/18 08/14/22 fluoxetine 20 mg capsule 20 mg PO DAILY 09/02/18 08/14/22 vit C 250 mg-vit E 90 mg-zinc 40 1 tab PO BID 06/15/22 08/14/22 mg-copper 1 wt-[id number] capsule (PreserVision AREDS-2) amlodipine 2.5 mg tablet 2.5 mg PO DAILY 07/09/22 08/14/22 metoprolol succinate 50 mg 25 mg PO QAM 07/09/22 08/14/22 tablet,extended release 24 hr Previous Rx's Medication Instructions Recorded rivaroxaban 20 mg tablet (Xarelto) 20 mg PO QPM #30 tabs 06/19/22 tamsulosin 0.4 mg capsule See Rx Instructions .Route 07/23/22 .COMPLEX #180 caps Allergies Allergy/AdvReac Type Severity Reaction Status Date / Time No Known Drug Allergies Allergy Verified 10/05/22 12:31 Review of Systems Review of Systems ROS Unobtainable: All systems reviewed & are unremarkable except as noted in HPI and below Patient History Medical History Alcoholism Anxiety Atrophic gastritis Benign prostatic hyperplasia Chronic anticoagulation Chronic low back pain Cyst in hand (~2019) Depression Diverticulosis Dizziness Erectile dysfunction Hearing impaired History of colon polyps HTN (hypertension) Hydronephrosis Hyperlipidemia Insomnia Ischemia Lower urinary tract symptoms Male circumcision Nephrolithiasis YAIMA on CPAP Osteoarthritis Paroxysmal atrial fibrillation Paroxysmal atrial flutter Prediabetes Psoriasis Psoriatic arthritis Psoriatic arthropathy Retroperitoneal mass RLS (restless legs syndrome) Sinus congestion Syncope Testosterone deficiency Vitamin D deficiency Surgical History History of ear, nose, and throat (ENT) surgery History of surgery (05/20/22) History of total left knee replacement (TKR) History of total right knee replacement (09/06/18) Hx of bilateral cataract extraction Hx of hernia repair Hx of lithotripsy Hx of tonsillectomy Family History Father No problems noted. Mother Cancer Diabetes mellitus Brother No problems noted. Sister No problems noted. Social History marital status: number of children: 3 household members: spouse Smoking Status: Never smoker alcohol intake: current Smoking Status: Never smoker alcohol intake frequency: 0-2 drinks per day Alcohol type: wine Substance Use Type: does not use Exam Narrative Exam Narrative: GEN: Patient appears in [id number] distress. HEAD: Patient has laceration abrasion posterior scalp , no raccoon/Wynne sign. NECK: Nontender, painless range of motion, trachea midline Nexus criteria, [there is not] line tenderness, distracting injury, altered mental status, neuro deficit, recent EtOH. EYES: PERRLA, EOMI, patient has mild conjunctival pallor. ENT: External inspection normal, trachea is midline, Nares are clear, no septal hematoma, no dental or oral injury, airway is normal and with normal occlusion, No bony tenderness RESP: Chest is nontender and has symmetric movement, no ecchymosis, breath sounds are normal no crackles, wheezes or rales CVS: Heart sounds are normal, no murmur noted, No JVD. ABG/GI: Nontender, soft, normal bowel sounds, no distention, no organomegaly, pelvic rock is negative GENIT, RECTAL: Normal external inspection, normal rectal tone NEURO: Oriented AOx3, neuro is grossly intact, sensation and motor is normal all 4 extremities moving, cranial nerves II through XII are intact, GCS is 15 PSYCH: Normal mood and affect SKIN: Intact, warm and dry, no crepitus and without decubitus BACK: No CVA tenderness, no vertebral tenderness, no step-off's, no crepitus EXT: Atraumatic, hips are nontender, no pedal edema, normal color and temperature, normal range of motion of extremities with normal tendon exam, 2+ pulses in all four extremities Initial Vital Signs Initial Vital Signs: Vital Signs Temperature 97.6 F 10/05/22 09:26 Pulse Rate 83 10/05/22 09:26 Respiratory Rate 18 10/05/22 09:26 Blood Pressure 86/54 L 10/05/22 09:26 Pulse Oximetry 100 10/05/22 09:26 Oxygen Delivery Method Room Air 10/05/22 09:26 Course Orders Ordered: ED Orders 10/05/22 10:05 COVID19 -Nasal RAPID Stat 10/05/22 11:14 Consult to General Surgery Stat 10/05/22 12:54 D Dimer Stat Fibrinogen Stat Hemoglobin and Hematocrit Stat PTT Partial Thromboplastin Graeme Stat Platelet Count Stat Prothrombin Time INR Stat Discontinued Medications Tranexamic Acid 1,000 mg/ (Sodium Chloride) 100 mls @ 200 mls/hr IV INTRA-OP ONE Stop: 10/05/22 12:24 Last Infusion: 10/05/22 12:32 Dose: 0 mls/hr Documented By: Admin: 10/05/22 12:03 Dose: 200 mls/hr Documented By: SALOME Lactated Ringer's (Lactated Ringers) 1,000 mls @ 1,000 mls/hr IV BOLUS ONE Stop: 10/05/22 12:55 Last Infusion: 10/05/22 13:00 Dose: 0 mls/hr Documented By: Admin: 10/05/22 11:59 Dose: 1,000 mls/hr Documented By: SALOME Prothrombin Complex Concent ( Human) 2,500 unit/Miscellaneous 100 mls @ 774.007 mls/hr IV NOW ONE; Protocol Stop: 10/05/22 12:27 Last Infusion: 10/05/22 12:35 Dose: 0 unit/kg/min, 0 mls/hr Documented By: Admin: 10/05/22 12:27 Dose: 3 unit/kg/min, 774.007 mls/hr Documented By: BALJIT Ondansetron HCl (Ondansetron 4 Mg/2 Ml Inj) 4 mg IV NOW ONE Stop: 10/05/22 14:22 Last Admin: 10/05/22 14:24 Dose: 4 mg Documented By: BALJIT Pantoprazole Sodium (Pantoprazole 40 Mg Vial) 80 mg IV NOW ONE Stop: 10/05/22 12:56 Last Admin: 10/05/22 13:03 Dose: 80 mg Documented By: BALJIT Vital Signs Vital signs: Vital Signs - 8 hr 10/05/22 11:26 10/05/22 10:57 10/05/22 10:57 Temperature Pulse Rate 58 L 62 Respiratory Rate 18 24 Blood Pressure 80/47 L 101/51 L Pulse Oximetry 98 Oxygen Delivery Method 10/05/22 10:58 10/05/22 11:00 10/05/22 11:00 Temperature Pulse Rate 59 L 58 L Respiratory Rate 15 16 Blood Pressure 94/51 L Pulse Oximetry 100 100 Oxygen Delivery Method 10/05/22 11:02 10/05/22 11:04 10/05/22 11:05 Temperature Pulse Rate 60 60 Respiratory Rate 15 19 Blood Pressure 97/53 L Pulse Oximetry 100 99 Oxygen Delivery Method 10/05/22 11:05 10/05/22 11:06 10/05/22 11:08 Temperature Pulse Rate 64 63 60 Respiratory Rate 18 18 15 Blood Pressure Pulse Oximetry 100 100 100 Oxygen Delivery Method 10/05/22 11:10 10/05/22 11:10 10/05/22 11:12 Temperature Pulse Rate 60 61 Respiratory Rate 14 13 Blood Pressure 109/59 L Pulse Oximetry 100 100 Oxygen Delivery Method 10/05/22 11:14 10/05/22 11:15 10/05/22 11:15 Temperature Pulse Rate 60 59 L Respiratory Rate 12 15 Blood Pressure 69/51 L Pulse Oximetry 100 100 Oxygen Delivery Method 10/05/22 11:16 10/05/22 11:18 10/05/22 11:19 Temperature Pulse Rate 61 62 60 Respiratory Rate 17 14 16 Blood Pressure Pulse Oximetry 99 100 100 Oxygen Delivery Method 10/05/22 11:19 10/05/22 11:20 10/05/22 11:20 Temperature Pulse Rate 59 L Respiratory Rate 14 Blood Pressure 89/53 L 80/47 L Pulse Oximetry 100 Oxygen Delivery Method 10/05/22 11:22 10/05/22 11:24 10/05/22 11:25 Temperature Pulse Rate 61 61 Respiratory Rate 16 18 Blood Pressure 93/50 L Pulse Oximetry 100 100 Oxygen Delivery Method 10/05/22 11:25 10/05/22 11:26 10/05/22 11:52 Temperature 97.7 F Pulse Rate 63 62 63 Respiratory Rate 16 18 18 Blood Pressure 74/43 L Pulse Oximetry 100 100 Oxygen Delivery Method 10/05/22 11:28 10/05/22 11:30 10/05/22 11:30 Temperature Pulse Rate 62 61 Respiratory Rate 19 18 Blood Pressure 87/51 L Pulse Oximetry 100 100 Oxygen Delivery Method 10/05/22 11:32 10/05/22 11:34 10/05/22 11:35 Temperature Pulse Rate 63 64 Respiratory Rate 18 17 Blood Pressure 84/49 L Pulse Oximetry 100 100 Oxygen Delivery Method 10/05/22 11:35 10/05/22 11:36 10/05/22 11:38 Temperature Pulse Rate 61 63 63 Respiratory Rate 17 18 24 Blood Pressure Pulse Oximetry 100 100 100 Oxygen Delivery Method 10/05/22 11:40 10/05/22 11:40 10/05/22 11:42 Temperature Pulse Rate 62 60 Respiratory Rate 21 15 Blood Pressure 82/49 L Pulse Oximetry 100 100 Oxygen Delivery Method Room Air 10/05/22 11:44 10/05/22 11:45 10/05/22 11:45 Temperature Pulse Rate 60 62 Respiratory Rate 15 17 Blood Pressure 96/55 L Pulse Oximetry 100 99 Oxygen Delivery Method 10/05/22 11:46 10/05/22 11:48 10/05/22 11:50 Temperature Pulse Rate 61 66 65 Respiratory Rate 18 25 H 29 H Blood Pressure Pulse Oximetry 100 100 100 Oxygen Delivery Method 10/05/22 11:52 10/05/22 11:52 10/05/22 11:54 Temperature Pulse Rate 63 Respiratory Rate 19 Blood Pressure 74/43 L 89/53 L Pulse Oximetry 100 Oxygen Delivery Method 10/05/22 11:54 10/05/22 11:55 10/05/22 11:55 Temperature Pulse Rate 61 61 Respiratory Rate 15 21 Blood Pressure 93/54 L Pulse Oximetry 100 100 Oxygen Delivery Method 10/05/22 11:56 10/05/22 11:58 10/05/22 12:00 Temperature Pulse Rate 64 59 L Respiratory Rate 24 14 Blood Pressure 97/62 Pulse Oximetry 99 100 Oxygen Delivery Method 10/05/22 12:00 10/05/22 12:02 10/05/22 12:04 Temperature Pulse Rate 64 60 58 L Respiratory Rate 20 18 22 Blood Pressure Pulse Oximetry 100 99 100 Oxygen Delivery Method 10/05/22 12:05 10/05/22 12:05 10/05/22 12:06 Temperature Pulse Rate 58 L 58 L Respiratory Rate 14 19 Blood Pressure 104/56 L Pulse Oximetry 99 100 Oxygen Delivery Method Room Air 10/05/22 12:08 10/05/22 12:10 10/05/22 12:10 Temperature Pulse Rate 59 L 61 Respiratory Rate 18 19 Blood Pressure 122/57 L Pulse Oximetry 99 100 Oxygen Delivery Method 10/05/22 12:18 10/05/22 12:12 10/05/22 12:14 Temperature 97.7 F Pulse Rate 57 L 60 67 Respiratory Rate 18 20 30 H Blood Pressure 100/55 L Pulse Oximetry 100 99 Oxygen Delivery Method 10/05/22 12:15 10/05/22 12:15 10/05/22 12:16 Temperature Pulse Rate 66 63 Respiratory Rate 20 25 H Blood Pressure 100/55 L Pulse Oximetry 100 100 Oxygen Delivery Method 10/05/22 12:18 10/05/22 12:20 10/05/22 12:20 Temperature Pulse Rate 58 L 57 L Respiratory Rate 13 13 Blood Pressure 119/57 L Pulse Oximetry 100 100 Oxygen Delivery Method 10/05/22 12:22 10/05/22 12:24 10/05/22 12:25 Temperature Pulse Rate 61 59 L Respiratory Rate 22 17 Blood Pressure 116/55 L Pulse Oximetry 100 100 Oxygen Delivery Method 10/05/22 12:25 10/05/22 12:26 10/05/22 12:28 Temperature Pulse Rate 60 61 61 Respiratory Rate 20 17 18 Blood Pressure Pulse Oximetry 100 100 100 Oxygen Delivery Method 10/05/22 12:30 10/05/22 12:30 10/05/22 12:32 Temperature Pulse Rate 59 L 62 Respiratory Rate 13 19 Blood Pressure 113/58 L Pulse Oximetry 100 100 Oxygen Delivery Method 10/05/22 12:54 10/05/22 13:09 10/05/22 12:34 Temperature 97.7 F 97.8 F Pulse Rate 63 62 59 L Respiratory Rate 18 18 17 Blood Pressure 107/58 L 94/51 L Pulse Oximetry 100 Oxygen Delivery Method 10/05/22 12:35 10/05/22 12:35 10/05/22 12:36 Temperature Pulse Rate 61 65 Respiratory Rate 15 18 Blood Pressure 116/56 L Pulse Oximetry 100 100 Oxygen Delivery Method 10/05/22 12:38 10/05/22 12:40 10/05/22 12:40 Temperature Pulse Rate 65 62 Respiratory Rate 19 22 Blood Pressure 117/56 L Pulse Oximetry 100 100 Oxygen Delivery Method 10/05/22 12:42 10/05/22 12:44 10/05/22 12:45 Temperature Pulse Rate 62 64 Respiratory Rate 19 21 Blood Pressure 115/57 L Pulse Oximetry 100 100 Oxygen Delivery Method 10/05/22 12:45 10/05/22 12:46 10/05/22 12:48 Temperature Pulse Rate 66 64 61 Respiratory Rate 27 H 19 21 Blood Pressure Pulse Oximetry 100 100 100 Oxygen Delivery Method 10/05/22 12:50 10/05/22 12:50 10/05/22 12:52 Temperature Pulse Rate 63 64 Respiratory Rate 22 19 Blood Pressure 107/58 L Pulse Oximetry 100 100 Oxygen Delivery Method 10/05/22 12:54 10/05/22 12:55 10/05/22 12:55 Temperature Pulse Rate 63 62 Respiratory Rate 14 16 Blood Pressure 119/61 Pulse Oximetry 100 100 Oxygen Delivery Method 10/05/22 12:56 10/05/22 12:58 10/05/22 13:00 Temperature Pulse Rate 67 68 Respiratory Rate 22 24 Blood Pressure 114/58 L Pulse Oximetry 99 99 Oxygen Delivery Method 10/05/22 13:00 10/05/22 13:02 10/05/22 13:04 Temperature Pulse Rate 65 62 63 Respiratory Rate 17 19 23 Blood Pressure Pulse Oximetry 100 100 100 Oxygen Delivery Method 10/05/22 13:06 10/05/22 13:06 10/05/22 13:08 Temperature Pulse Rate 60 Respiratory Rate 16 Blood Pressure 91/44 L 92/53 L Pulse Oximetry 99 Oxygen Delivery Method Room Air 10/05/22 13:08 10/05/22 13:09 10/05/22 13:09 Temperature Pulse Rate 64 64 Respiratory Rate 22 17 Blood Pressure 94/52 L Pulse Oximetry 99 99 Oxygen Delivery Method 10/05/22 13:10 10/05/22 13:10 10/05/22 13:12 Temperature Pulse Rate 63 61 Respiratory Rate 17 17 Blood Pressure 94/51 L Pulse Oximetry 100 100 Oxygen Delivery Method 10/05/22 13:14 10/05/22 13:15 10/05/22 13:15 Temperature Pulse Rate 59 L 62 Respiratory Rate 22 22 Blood Pressure 101/57 L Pulse Oximetry 98 98 Oxygen Delivery Method 10/05/22 13:16 10/05/22 13:18 10/05/22 13:20 Temperature Pulse Rate 60 57 L Respiratory Rate 20 16 Blood Pressure 88/49 L Pulse Oximetry 99 97 Oxygen Delivery Method 10/05/22 13:20 10/05/22 13:22 10/05/22 13:22 Temperature Pulse Rate 63 66 Respiratory Rate 23 19 Blood Pressure 87/50 L Pulse Oximetry 93 Oxygen Delivery Method 10/05/22 13:23 10/05/22 13:23 10/05/22 13:24 Temperature Pulse Rate 67 61 Respiratory Rate 30 H 14 Blood Pressure 90/50 L Pulse Oximetry 91 100 Oxygen Delivery Method 10/05/22 13:25 10/05/22 13:25 10/05/22 13:26 Temperature Pulse Rate 59 L 60 Respiratory Rate 18 25 H Blood Pressure 107/59 L Pulse Oximetry 99 98 Oxygen Delivery Method 10/05/22 14:30 10/05/22 14:30 10/05/22 14:54 Temperature 98.1 F 97.9 F Pulse Rate 72 72 63 Respiratory Rate 16 22 18 Blood Pressure 120/59 L 81/51 L 96/52 L Pulse Oximetry 100 Oxygen Delivery Method Room Air 10/05/22 14:46 10/05/22 15:15 10/05/22 15:29 Temperature 97.6 F 98.0 F Pulse Rate 63 67 65 Respiratory Rate 18 18 18 Blood Pressure 98/54 L 106/61 110/57 L Pulse Oximetry Oxygen Delivery Method 10/05/22 15:54 10/05/22 16:22 10/05/22 16:23 Temperature 97.9 F 97.8 F Pulse Rate 72 60 60 Respiratory Rate 20 14 16 Blood Pressure 87/53 L 87/51 L 87/51 L Pulse Oximetry 100 Oxygen Delivery Method 10/05/22 16:10 Temperature Pulse Rate 74 Respiratory Rate 18 Blood Pressure 96/53 L Pulse Oximetry 100 Oxygen Delivery Method Room Air MDM - Syncope Lab Data 10/05/22 12:54 10/05/22 09:30 Labs: Lab Results 10/05/22 10/05/22 10/05/22 Range/Units 09:30 09:30 09:30 WBC 6.8 (4.5-11.0) X10^3/uL RBC 3.27 L (4.5-5.9) X10^6/uL Hgb 8.4 L (13.5-17.5) g/dL Hct 26.6 L (41-53) % MCV 81.3 (80-100) fL MCH 25.6 L (26-34) PG MCHC 31.4 (30-36) % RDW 22.6 H (11.6-14.8) % Plt Count 233 (150-400) X10^3/uL Neut % (Auto) 65.7 (50-75) % Lymph % (Auto) 21.9 L (25-40) % Pinal % (Auto) 9.2 (3-14) % Eos % (Auto) 2.4 (2-4) % Baso % (Auto) 0.8 (0-2) % Neut # (Auto) 4500 (5344-4376) /uL Lymph # (Auto) 1500 (9485-0864) /uL Pinal # (Auto) 600 (0-900) /uL Eos # (Auto) 200 (0-450) /uL Baso # (Auto) 100 (0-100) /uL RBC Morphology See below Hypochromasia 1+ H Anisocytosis 2+ H PT 25.0 H (10.1-12.7) SECONDS INR 2.2 H (0.9-1.3) APTT 67 H (26-36) SECONDS Fibrinogen (211-428) mg/dL D-Dimer (<500) ng/ml Sodium 138 (137-145) mmol/L Potassium 4.6 (3.4-5.1) mmol/L Chloride 107 (98-107) mmol/L Carbon Dioxide 28 (22-32) mmol/L BUN 30 H (9-20) mg/dL Creatinine 1.07 (0.66-1.25) mg/dL Estimated GFR > 60 (>60) mL/min BUN/Creatinine Ratio 28.0 H (6-22) Glucose 113 H (80-110) mg/dL Lactate (0.7-2.1) mmol/L Calcium 8.5 (8.4-10.2) mg/dL Magnesium 2.2 (1.6-2.3) mg/dL Total Bilirubin 0.4 (0.2-1.3) mg/dL AST 29 (17-59) IU/L ALT 20 (<50) IU/L Alkaline Phosphatase 56 (38-126) U/L Total Creatine Kinase 106 (55-170) U/L CK-MB (CK-2) 4.10 H (<2.37) ng/mL CK-MB (CK-2) Rel Index 3.9 (1.5-5.0) % Troponin I < 0.012 (0.01-0.034) ng/mL Total Protein 6.4 (6.3-8.2) g/dL Albumin 3.4 L (3.5-5.0) g/dL Globulin 3.0 (1.7-4.1) g/dL Albumin/Globulin Ratio 1.1 (1.0-2.8) Lipase 53 (23-300) U/L SARS-CoV-2 (PCR) (Negative) Blood Type Antibody Screen Crossmatch 10/05/22 10/05/22 10/05/22 Range/Units 09:30 09:30 10:05 WBC (4.5-11.0) X10^3/uL RBC (4.5-5.9) X10^6/uL Hgb (13.5-17.5) g/dL Hct (41-53) % MCV (80-100) fL MCH (26-34) PG MCHC (30-36) % RDW (11.6-14.8) % Plt Count (150-400) X10^3/uL Neut % (Auto) (50-75) % Lymph % (Auto) (25-40) % Pinal % (Auto) (3-14) % Eos % (Auto) (2-4) % Baso % (Auto) (0-2) % Neut # (Auto) (0386-9794) /uL Lymph # (Auto) (3521-1250) /uL Pinal # (Auto) (0-900) /uL Eos # (Auto) (0-450) /uL Baso # (Auto) (0-100) /uL RBC Morphology Hypochromasia Anisocytosis PT (10.1-12.7) SECONDS INR (0.9-1.3) APTT (26-36) SECONDS Fibrinogen (211-428) mg/dL D-Dimer (<500) ng/ml Sodium (137-145) mmol/L Potassium (3.4-5.1) mmol/L Chloride (98-107) mmol/L Carbon Dioxide (22-32) mmol/L BUN (9-20) mg/dL Creatinine (0.66-1.25) mg/dL Estimated GFR (>60) mL/min BUN/Creatinine Ratio (6-22) Glucose (80-110) mg/dL Lactate 1.4 (0.7-2.1) mmol/L Calcium (8.4-10.2) mg/dL Magnesium (1.6-2.3) mg/dL Total Bilirubin (0.2-1.3) mg/dL AST (17-59) IU/L ALT (<50) IU/L Alkaline Phosphatase (38-126) U/L Total Creatine Kinase (55-170) U/L CK-MB (CK-2) (<2.37) ng/mL CK-MB (CK-2) Rel Index (1.5-5.0) % Troponin I (0.01-0.034) ng/mL Total Protein (6.3-8.2) g/dL Albumin (3.5-5.0) g/dL Globulin (1.7-4.1) g/dL Albumin/Globulin Ratio (1.0-2.8) Lipase (23-300) U/L SARS-CoV-2 (PCR) Negative (Negative) Blood Type O Positive Antibody Screen Negative Crossmatch See Detail 10/05/22 10/05/22 Range/Units 12:54 12:54 WBC (4.5-11.0) X10^3/uL RBC (4.5-5.9) X10^6/uL Hgb 8.0 L (13.5-17.5) g/dL Hct 24.4 L (41-53) % MCV (80-100) fL MCH (26-34) PG MCHC (30-36) % RDW (11.6-14.8) % Plt Count 180 (150-400) X10^3/uL Neut % (Auto) (50-75) % Lymph % (Auto) (25-40) % Pinal % (Auto) (3-14) % Eos % (Auto) (2-4) % Baso % (Auto) (0-2) % Neut # (Auto) (5903-0889) /uL Lymph # (Auto) (5917-9398) /uL Pinal # (Auto) (0-900) /uL Eos # (Auto) (0-450) /uL Baso # (Auto) (0-100) /uL RBC Morphology Hypochromasia Anisocytosis PT 22.3 H (10.1-12.7) SECONDS INR 1.9 H (0.9-1.3) APTT 58 H (26-36) SECONDS Fibrinogen 155 L (211-428) mg/dL D-Dimer 492 (<500) ng/ml Sodium (137-145) mmol/L Potassium (3.4-5.1) mmol/L Chloride (98-107) mmol/L Carbon Dioxide (22-32) mmol/L BUN (9-20) mg/dL Creatinine (0.66-1.25) mg/dL Estimated GFR (>60) mL/min BUN/Creatinine Ratio (6-22) Glucose (80-110) mg/dL Lactate (0.7-2.1) mmol/L Calcium (8.4-10.2) mg/dL Magnesium (1.6-2.3) mg/dL Total Bilirubin (0.2-1.3) mg/dL AST (17-59) IU/L ALT (<50) IU/L Alkaline Phosphatase (38-126) U/L Total Creatine Kinase (55-170) U/L CK-MB (CK-2) (<2.37) ng/mL CK-MB (CK-2) Rel Index (1.5-5.0) % Troponin I (0.01-0.034) ng/mL Total Protein (6.3-8.2) g/dL Albumin (3.5-5.0) g/dL Globulin (1.7-4.1) g/dL Albumin/Globulin Ratio (1.0-2.8) Lipase (23-300) U/L SARS-CoV-2 (PCR) (Negative) Blood Type Antibody Screen Crossmatch Point of Care Testing Stool Occult Blood Positive Imaging Data CT scan - head: Radiologist's Impression: [place] [address] CT Scan Report Signed Patient: Krunal Mahmood MR#: [id number] : 1945 Acct:[id number] Age/Sex: 77 / M Date of Service: 10/05/22 Loc: ED Accession Number: [id number] ?? Procedure: CT head/brain wo con Ordering Provider: Debbie Land D.O. PROCEDURE:? CT HEAD/BRAIN WO CON ? INDICATIONS:? hit head on thinners ? TECHNIQUE:? Noncontrast 4.5 mm thick angled axial sections acquired from the foramen magnum to the vertex, with coronal and sagittal reformats.? For radiation dose reduction, the following was used:? automated exposure control, adjustment of mA and/or kV according to patient size.? ? COMPARISON:? [facility], CT, CT HEAD/BRAIN WO CON, 06/21/2022, 22:27. ? FINDINGS:? Image quality:? Excellent.? ? CSF spaces:? Basal cisterns are patent.? No extra-axial fluid collections.? The ventricles are symmetric in size and shape.? ? Brain:? No intracranial bleeds or masses.? There is cerebral volume loss for a ge, with resultant ventricular and sulcal prominence.? There are periventricular and deep white matter chronic small vessel ischemic changes.? There is intracranial internal carotid artery atherosclerosis.? ? Skull and face:? Calvarium and visualized facial bones appear intact, without suspicious lesions.? ? Sinuses:? Stable postsurgical changes of prior sinus surgery.? Mastoid air cells are clear.? Scattered ethmoid sinus mucosal thickening as before. ? IMPRESSION:? ? 1. CT head without acute intracranial abnormalities or acute calvarial fractures. ? 2. Age-related senescent changes and sequela of chronic small vessel ischemic disease. ? ? ? Dictated by: Saleem Thompson M.D. on 10/05/2022 at 10:12 ? ? Approved by: Saleem Thompson M.D. on 10/05/2022 at 10:14?? CT - cervical spine: Radiologist's Impression: [place] [address] CT Scan Report Signed Patient: Krunal Mahmood MR#: [id number] : 1945 Acct:[id number] Age/Sex: 77 / M Date of Service: 10/05/22 Loc: ED Accession Number: [id number] ?? Procedure: CT cervical spine wo con Ordering Provider: Debbie Land D.O. PROCEDURE:? CT CERVICAL SPINE WO CON ? INDICATIONS:? hit head on thinners ? TECHNIQUE:? Noncontrast 3 mm thick sections acquired from the skull base to the T4 level.? Sagittal and coronal reformats were then constructed.? For radiation dose reduction, the following was used:? automated exposure control, adjustment of mA and/or kV according to patient size.? ? COMPARISON:? [facility], MR, MR ANGIO HEAD WO CON, 06/22/2022, 7:51. ? FINDINGS:? Image quality:? Excellent.? ? Bones:? No acute fractures or dislocations.? No acute compression fractures of the vertebral bodies. Craniocervical junction is intact. C1-C2 relationship is preserved. Visualized superior ribs are intact.? Moderate multilevel cervical spondylosis.? There is moderate spinal canal stenosis at C4-5 and C5-6. ? Soft tissues:? Prevertebral soft tissues are normal in thickness.? No paravertebral hematomas.? No apical pneumothoraces.? There is a 1.7 cm mildly hypodense lesion within the left thyroid lobe likely representing a thyroid nodule.? ? ? IMPRESSION:? ? 1. CT cervical spine without acute fracture or traumatic malalignment. ? 2. Moderate multilevel cervical spondylosis with moderate spinal canal stenosis seen at C4-5 and C5-6. ? 3. Incidental note of a 1.7 cm suspected left thyroid nodule.? Recommend outpatient thyroid ultrasound for further evaluation.? Dictated by: Saleem Thompson M.D. on 10/05/2022 at 10:14 ? ? Approved by: Saleem Thompson M.D. on 10/05/2022 at 10:22?? Chest x-ray: Radiologist's Impression: [place] [address] XRay Report Signed Patient: Krunal Mahmood MR#: [id number] : 1945 Acct:[id number] Age/Sex: 77 / M Date of Service: 10/05/22 Loc: ED Accession Number: [id number] ?? Procedure: XR chest 1V Ordering Provider: Debbie Land D.O. PROCEDURE:? XR CHEST 1V ? INDICATIONS:? chest pain ? TECHNIQUE:? One view of the chest was acquired.? ? COMPARISON:? [facility], CR, XR CHEST 2V, 07/27/2022, 15:28.? [facility], CR, XR CHEST 1V, 06/21/2022, 20:24. ? FINDINGS:? ? Surgical changes and devices:? None.? ? Lungs and pleura:? Low lung volumes without dense consolidation or pleural effusion.? Previously noted right upper lung possible nodule is not seen on today's study, probably obscured by EKG leads ? Mediastinum:? Heart size is at the upper limit of normal. ? Bones and chest wall:? No suspicious bony lesions.? Overlying soft tissues appear unremarkable.? ? IMPRESSION:? Low lung volumes, limiting evaluation.? No acute radiographic abnormality.? Previously seen possible right lung nodule might be obscured by the EKG lead.? ? Dictated by: Miguel Enriquez M.D. on 10/05/2022 at 10:22 ? ? Approved by: Miguel Enriquez M.D. on 10/05/2022 at 10:23?? CT scan - abdomen/pelvis: Radiologist's Impression: Close Chest/Abdomen CT (Signed) Miguel Enriquez - 10/05/22 Abdomen/Pelvis CT (Cancelled) 10/05/[address] (Signed) DonnaSaleem - 10/05/[address] (Signed) DonnaSaleem - 10/05/22 Chest X-Ray (Signed) Miguel Enriquez - 10/05/22 Chest X-Ray (Signed) Bharath May - 07/27/22 Bladder Scan 06/23/22 Head Magnetic Resonance Angiography (Signed) Raul Hernandez - 06/22/22 Brain MRI (Signed) Raul Hernandez - 06/22/22 Telemetry Strips 06/21/[address] (Signed) Prince Hernandez - 06/21/22 Knee X-Ray (Signed) Hernandez,Prince - 06/21/22 Chest X-Ray (Signed) Hernandez,Prince - 06/21/22 Knee X-Ray (Signed) Ady Estrada - 06/19/22 Outside Echo 06/17/22 Knee X-Ray (Signed) Bharath May - 05/20/22 Knee X-Ray (Signed) Hernandez,Prince - 05/20/22 Ribs X-Ray (Signed) Dony Pritchett - 02/03/21 Ankle X-Ray (Signed) Marybel Cuba - 06/08/19 Foot X-Ray (Signed) Marybel Cuba - 06/08/19 Knee X-Ray (Signed) Lori Caballero - 09/06/18 Outside EKG 08/18/18 Knee MRI (Signed) HernandezPrince brizuela - 08/09/18 Abdomen/Pelvis CT (Signed) Tereza Bangura - 03/08/18 Echocardiogram Ultrasound (Signed) Jacqueline Johnson - 02/06/18 Telemetry Strips 02/05/18 Chest X-Ray (Signed) Yahaira Coronado - 08/04/18 Launch?Image [address] [address] [address] Scan Report Signed Patient: Krunal Mahmood MR#: [id number] : 1945 Acct:[id number] Age/Sex: 77 / M Date of Service: 10/05/22 Loc: ED Accession Number: [id number] ?? Procedure: CT chest abdomen w con Ordering Provider: Debbie Land D.O. PROCEDURE:? CT CHEST ABD PEL W CON ? INDICATIONS:? bloody diarrhea intermittent, syncope ? TECHNIQUE:? After the administration of IV contrast, axial sections acquired from the supraclavicular neck to the pubic symphysis.? Coronal and sagittal reformats were performed.? For radiation dose reduction, the following was used:? automated exposure control, adjustment of mA and/or kV according to patient size.? ? COMPARISON: ? [facility], CT, CT ABDOMEN PELVIS W CON, 03/08/2018, 10:20. ? FINDINGS:? Image quality:? Good ? Lungs and pleura:? No overtly suspicious pulmonary nodule.? No airspace consolidation or pleural effusions.? There is basilar scarring and scattered atelectasis. ? Mediastinum, heart, and esophagus:? Small hiatal hernia and possible epiphrenic diverticulum.? Coronary artery calcifications, likely significant.? No pathologic adenopathy by size criteria. ? Chest wall and thyroid:? Partially seen left thyroid nodule, consider sonographic evaluation if not previously performed, over 1.5 centimeters.? Chest wall is otherwise unremarkable. ? Solid organs:? Cholelithiasis.? The liver is unremarkable.? The portal vein appears patent.? No pathologic dilation of the biliary tree or pancreatic duct.? No splenomegaly. ?No hydronephrosis.? Bosniak 1 and 2 renal lesions are present, for which no dedicated followup is necessary per 2019 proposed guidelines. ? In the retrocaval region, adjacent to the right adrenal gland medial limb, there is low-attenuation lesion measuring 9 by 4.3 centimeters, similar compared to 2018 (axial image 55).? Small central calcification.? ? Vessels and lymph nodes:? Atherosclerotic calcifications without abdominal aortic aneurysm. ? Bowel and peritoneum:? No evidence of small bowel obstruction.? Suspected lipoma in the duodenum again seen.? Liquid colonic contents.? No significant wall thickening.? Few guided particular are present.? No pathologic ascites. ? Body wall:? Small fat containing left inguinal hernia. ? Pelvis:? Bladder is under distended, overall unremarkable.? Heterogeneous and enlarged prostate, not well evaluated on CT. ? Bones:? No acute or suspicious osseous finding.? Degenerative changes are present.? There is some rib deformities I do not appear acute. ? IMPRESSION:? Liquid colonic contents suspicious for colitis.? No significant wall thickening otherwise.? There is also diverticulosis.? In the setting of GI bleeding, consider further evaluation with colonoscopy. ? Consider ultrasound to further evaluate the partially seen left thyroid nodule, if not already obtained elsewhere.? Significant coronary calcifications.? Stable right upper retroperitoneal soft tissue lesion.? Multiple other findings as above. ? Dictated by: Miguel Enriquez M.D. on 10/05/2022 at 10:43 ? ? Approved by: Miguel Enriquez M.D. on 10/05/2022 at 10:50?? ECG Data Attestation: I personally reviewed and interpreted this ECG as follows: Prior ECG tracings: available for review Interpretation: Sinus bradycardia rate of 58 AZ 156 QRS 86 and QTC of 416. T-wave inverted, patient has EKG from 06/11/2022 V3 and V2 at that time or more flattened upright today but prior from 08/18/2018 appears similar. MDM Narrative Medical decision making narrative: This is a 77-year-old male who presents with syncopal episode x2 with anemia, hypotension head injury on Xarelto. Patient is hypotensive in the field, he had 500 mL prior to arrival and was still 80-90 systolic. He does not feel lightheaded lying flat or in Trendelenburg currently. Was noted to have anemia that has been slowly worsening over time had a colonoscopy fairly recently had some polyps removed and had a spot in the mucosa and was told he would a CT of his abdomen pelvis this had been obtained yet he did have what is described as some bloody diarrhea today he did not see the blood cause he states he did not look but his did had some lower abdominal pain just prior to all of this. Patient is on Xarelto he has a history of AFib he is currently sinus bradycardia and some of his hypotension may be also related to his beta-van for venting reflex tachycardia but his hemoglobin has dropped from 10-8 since Griffin, gives and I have 2.2, BUN is elevated renal function appears stable for him at 1.07, glucose is 113, electrolytes do not show major change troponin was negative. LFTs are negative. COVID swab is negative. Lactate is negative. Patient had head CT and C-spine which do not show any acute fracture or bleed, chest x-ray and CT chest abdomen pelvis which shows some liquid stool contents in the colon but no thickening, thyroid nodule and cholelithiasis. Patient's abdominal exam is benign. Stool occult shows no bright red blood but is positive on Hemoccult. Patient has had persistent hypotension in the setting of anemia hemoglobin 8 felt appropriate to go ahead and transfuse he does have some conjunctival pallor has reported rectal bleeding at least today and likely has had some longstanding. goal of MAP 60-65 and systolic pressure 90-100. Spoke with Dr. Kenny who is happy to consult on the patient. Order was placed. I spoke with Dr. Vivas who accepts for admission. After acceptance patient started to have large amount of bloody/melanotic stool the rectum had about 1800 mL out total out, patient had received [address] Schilling updated and asked to see patient. Dr. Kenny also updated. Persistently hypotensive mapping been maintaining in the 60s, discussed with Dr. Kenny, general surgery plan to give TXA, discussed Kcentra with pharmacy and Dr. Kenny both. She elects that we go ahead and given if he is having pe rsistent bleeding which she had been was 25 units/kilogram off label for Xarelto. Patient had 2 additional units started and mass transfusion protocol was initiated. If bleeding stops and patient felt stable enough maybe able to admit here but if persisting then transfer for embolization and IR recommended by Dr. Kenny. Able to speak with Dr. Medina, gastroenterology at . She is willing to see the patient figure out scope and then next steps. She does some suspicion of post polypectomy bleed. No additional recommendations treatment. does not have any beds available currently they will recontact as they have availability with either hospitalist our preparation operator and asked for us to recontact patient's status changes. Spoke with preparation operator, Dr. Blackwell at [facility]. Agrees with current plan dose FFP may not be very helpful agrees with [place], Tx a states 2nd dose is not really likely going to be helpful. Would recommend keeping on top blood transfusion. Asked that we speak to gastroenterology to see if they think patient is appropriate for them were if needs facility where they can scope the small bowel. They have gastroenterology paged out if GI feels patient is appropriate for [facility] they would be willing to accept. Spoke Dr. Mosquera from gastroenterology at [facility] he is happy to consult on the patient and feels appropriate for transfer to them at this time. Patient had calls out to multiple facilities across the region, we were able to find bed placement at [facility] and has been accepted at [facility] patient has received 4 units of packed red blood cells, FFP, Kcentra 25 units/kilos and TXA a 1000 mg continues to have hypotension continues to be bradycardic. Has had intermittent output with at most recent check 2600 mL of dark bloody/melanotic stool output. Patient has been alert, appropriate he is aware of the risks an open to transfer. Patient does have high-risk for decompensation in transport but we do not have services available here so will send blood with the patient and for airlift as ground transport would be delayed by 4-6 hours. Discharge Plan Departure Patient Disposition: [facility] Clinical Impression: Syncope, Symptomatic anemia, Thyroid nodule, Acute GI bleeding, Hypotension Prescriptions: No Action PreserVision AREDS-2 250-90-40-1 mg Capsule 1 tab PO BID Xarelto 20 mg tablet 20 mg PO QPM Qty: 30 0RF bupropion HCl 150 mg tablet extended release 24 hr 150 mg PO DAILY atorvastatin 10 mg tablet 20 mg PO QPM gabapentin 300 mg capsule 600 mg PO BEDTIME metoprolol succinate 50 mg tablet extended release 24 hr 25 mg PO QAM Patient Comments: TK 1 T PO QD fluoxetine 20 mg Capsule 20 mg PO DAILY amlodipine 2.5 mg tablet 2.5 mg PO DAILY tamsulosin 0.4 mg capsule See Rx Instructions .ROUTE .COMPLEX Qty: 180 3RF Dose Instruction: TAKE 2 CAPSULES BY MOUTH DAILY Rx Instructions: TAKE 2 CAPSULES BY MOUTH DAILY Referrals: Kavita Aranda MD [Primary Care Provider] -
[2022-10-05 09:58] LABS: INR 2.2 (0.9-1.3)
[2022-10-05 10:00] LABS: Alanine Aminotransferase 20 IU/L (<50); Albumin 3.4 g/dL (3.5-5.0); Albumin Globulin Ratio 1.1 (1.0-2.8); Alkaline Phosphatase 56 U/L (38-126); Aspartate Aminotransferase 29 IU/L (17-59); Bilirubin Total 0.4 mg/dL (0.2-1.3); Blood Urea Nitrogen 30 mg/dL (9-20); Calcium 8.5 mg/dL (8.4-10.2); Carbon Dioxide 28 mmol/L (22-32); Chloride 107 mmol/L (98-107); Creatine Kinase 106 U/L (55-170); Estimated Glomerular Filt Rate > 60 mL/min (>60); Glucose 113 mg/dL (80-110); HEMOLYSIS < 15 (0-50); Lipase 53 U/L (23-300); Magnesium 2.2 mg/dL (1.6-2.3); PTT Partial Thromboplastin Tim 67 SECONDS (26-36); Potassium 4.6 mmol/L (3.4-5.1); Sodium 138 mmol/L (137-145); Total Protein 6.4 g/dL (6.3-8.2)
[2022-10-05 10:01] LABS: Lactate (Lactic Acid) 1.4 mmol/L (0.7-2.1)
[2022-10-05 10:12] LABS: Troponin I < 0.012 ng/mL (0.01-0.034)
[2022-10-05 10:16] LABS: CKMB % Relative Index 3.9 % (1.5-5.0)
--- NOTE | 2022-10-05 10:17 | PC.NURSE ---
Head laceration noted on back of head, bleeding controlled at this time. Pt reports feeling woozy and not himself pt A&Ox4 at this time pupils equal and reactive.
[2022-10-05 10:19] LABS: Anisocytosis 2+; Hypochromasia 1+
[2022-10-05 10:45] LABS: COVID19 -Nasal RAPID Negative (Negative)
[2022-10-05] MEDS: LACTATED RINGERS 1,000 ML 1000 ML IV (11:59)
[2022-10-05] MEDS: TRANEXAMIC ACID 1,000 MG in SODIUM CHLORIDE 0.9% 100 ML 200 MG IV (12:03)
[2022-10-05] MEDS: PROTHROMBIN CPLX(PCC)4FACT 2,500 UNIT in ISOOSMOTIC VEHICLE 0 ML 774.007 UNIT IV (12:27)
[2022-10-05] MEDS: PANTOPRAZOLE 40 MG VIAL 80 MG IV (13:03)
[2022-10-05 13:05] LABS: Hematocrit 24.4 % (41-53); Platelet Count 180 X10^3/uL (150-400)
[2022-10-05 13:26] LABS: INR 1.9 (0.9-1.3); Prothrombin Time 22.3 SECONDS (10.1-12.7)
[2022-10-05 13:28] LABS: D Dimer 492 ng/ml (<500)
[2022-10-05 13:29] LABS: PTT Partial Thromboplastin Tim 58 SECONDS (26-36)
[2022-10-05 14:12] LABS: Fibrinogen 155 mg/dL (211-428)
[2022-10-05] MEDS: ONDANSETRON 4 MG/2 ML INJ IV (14:24)
--- NOTE | 2022-10-05 15:13 | PC.NURSE ---
Attempting to transfer pt: Running note: [facility]: No capacity [facility]: Pending, may have capacity [facility] [place]: No capacity [facility]: Waitlist [facility]: Waitlist [facility]: requested assistance at 1514.
--- NOTE | 2022-10-05 15:50 | PC.NURSE ---
Accepted [facility] Room 344 Contact is Mely in Transfer center report to Maria @ [phone]
--- NOTE | 2022-10-05 16:25 | PC.NURSE ---
2 units RBC verified with too Hoang RN and sent with airft team. Bedside report given to [facility].
== END 2022-10-05 16:52 | disposition short-term general hospital (02) ==
LOC: ED 11:21 → AC 11:59
PROVIDERS: Emergency Provider Emergency Medicine; PCP Internal Medicine; Referring Provider Emergency Medicine
DX: R55 Syncope and collapse (principal); K92.2 Gastrointestinal hemorrhage, unspecified; I95.9 Hypotension, unspecified; R07.9 Chest pain, unspecified; R00.1 Bradycardia, unspecified; D64.89 Other specified anemias; Z20.822 Contact with and (suspected) exposure to COVID-19; E04.1 Nontoxic single thyroid nodule; S09.90XA Unspecified injury of head, initial encounter; Z79.01 Long term (current) use of anticoagulants
CPT/HCPCS: 36415; 36430; 70450; 71045; 71260; 72125; 74160; 80053; 82272; 82550; 82553; 83605; 83690; 83735; 84484; 85014; 85018; 85025; 85049; 85379; 85384; 85610; 85730; 86850; 86900; 86901; 86927; 86945; 87635; 93005; 96365; 96375; 99285; 99291; 99292; C9803; P9040; C9113; J2405; J7168

== ENCOUNTER 2023-04-16 05:10 | Inpatient (IN) | payer MEDICARE, OTHER, SELFPAY ==
[2022-06-21 23:37] VITALS: BMI 36.3
[2023-04-16] VITALS (57 sets, daily range): BP systolic 96–164; BP diastolic 54–89; PULSE 55–85; RESP 14–33; TEMP 36.4–38.9; O2SAT 89–99; BMI 32.8
--- NOTE | 2023-04-16 | PATH_ITS ---
[facility] Accession Number: [id number] No. of containers..01 Tissue . 01 Material submitted: . gallbladder - GALLBLADDER . 01 Diagnosis: Gallbladder, Cholecystectomy: Acute necrotizing cholecystitis with serositis. Cholelithiasis. Negative for dysplasia and malignancy. MRV 04/20/2023 1415 Local . 01 Electronically signed: . Breonna Traylor MD, Pathologist NPI- [id number] . 01 Gross description: . The specimen is received in formalin, labeled with the patient's name, , and gallbladder, and consists of a single previously disrupted gallbladder measuring 7.8 x 4.5 x 3.7 cm. The serosal surface is pink-chauhan with diffuse areas of red stippling and a single full-thickness defect measuring 2.3 cm in greatest dimension. No pericystic lymph nodes are identified. The cystic duct is clamped, measures 0.3 cm in diameter, and is not occluded. The gallbladder is opened to reveal multiple black sand-like to friable calculi aggregating to 0.9 x 0.5 x 0.3 cm. The mucosal surface is red-chauhan and congested with no polyps or lesions seen. The wall measures up to 1.5 cm in thickness. Results Engineer sections are submitted in cassette A1. ([id number]) /FRR 04/17/2023 1324 Local . 01 Pathologist provided ICD-10: K80.60 . 01 CPT . 577105 Specimen Comment: A courtesy copy of this report has been sent to [phone] Performed at: 01 [facility] [address] [place] [address] [address], [place], [place] [id number] MD Prince Tobias MD Phone: [phone]
--- NOTE | 2023-04-16 05:16 | DI.CT.S_ITS ---
PROCEDURE: CT ABDOMEN PELVIS W [facility] INDICATIONS: Generalized abdominal pain TECHNIQUE: After the administration of IV contrast, axial sections were acquired from the lung bases to the pubic symphysis. Coronal and sagittal reformats were performed. For radiation dose reduction, the following was used: automated exposure control, adjustment of mA and/or kV according to patient size. COMPARISON: [facility], CT, CT CHEST ABD PEL W [facility], 10/05/2022, 9:48. [facility], CT, CT ABDOMEN PELVIS W [facility], 03/08/2018, 10:20. FINDINGS: Image quality: Excellent. Lung bases: Bibasilar atelectasis. Minuscule left pleural fluid. Small hiatal hernia. Heart: No significant findings. ABDOMEN: Liver: No focal lesion. Hepatic steatosis. Gallbladder: Distended. Pericholecystic stranding and edema. Possible small gallstone, (2/31). Biliary ducts: Unremarkable. Pancreas: No peripancreatic fluid collection. Spleen: No splenomegaly. Adrenal Glands: No nodule. Kidneys and Ureters: No hydronephrosis. Small nonobstructing left kidney stone. No solid renal mass. Stomach and Bowel: The appendix is not dilated. A few colonic diverticuli. No diverticulitis. No small bowel obstruction. Mild inflammatory change about the duodenum. Small duodenal lipoma measuring 1.5 cm, (2/41), similar. Peritoneum: No abnormal intraperitoneal fluid. No free air. Cyst posterior to the IVC measuring 9.3 x 3.3 cm, (2/28), previously 9.2 x 4.8 cm, and more remotely 9.2 x 4.8 cm on 02/23/2018. Measures 7.8 cm in craniocaudal dimension, (4/43), previously 8.6 cm, and more remotely 8.4 cm. Small central calcification. Small nodule at the right peritoneum measuring 1.3 cm, (2/33), unchanged since 2018. Ventral Wall: No hernia. Abdominal Nodes: No retroperitoneal or mesenteric adenopathy by size criteria. Vessels: Aorta and inferior vena cava are normal in size. Recannulization of the umbilical vein. PELVIS: Pelvic Organs: Prostatomegaly. Bladder: No stone. Pelvic Nodes: No enlarged lymph nodes. Miscellaneous: No inguinal hernias are seen. Bones: No suspicious osseous lesion. IMPRESSION: 1. Distended gallbladder with pericholecystic stranding and edema. Suspect cholecystitis. 2. Cyst posterior to the IVC measuring 9.3 cm is slightly decreased in size compared to 2018. Suspect a lymphocele or other cystic neoplasm. 3. Small duodenal lipoma, similar. 4. Recannulization of the umbilical vein is again seen. This is frequently seen in portal hypertension. No significant discrepancy with the overnight preliminary interpretation. Dictated by: Armando Dailey M.D. on 04/16/2023 at 8:10 Approved by: Armando Dailey M.D. on 04/16/2023 at 8:28
--- NOTE | 2023-04-16 05:22 | ED_ITS ---
HPI - General Adult <Ravinder Martínez DO - Last Filed: 04/16/23 17:59> General Chief complaint: Abdominal Pain Stated complaint: abd pain Time Seen by Provider: 04/16/23 05:15 Source: patient and EMS Mode of arrival: EMS Limitations: no limitations History of Present Illness HPI narrative: 78-year-old male. History of atrial fibrillation. Is on anticoagulation. Stated that he did have COVID approximately 2 weeks ago. See your for evaluation of approximately 2 days of abdominal discomfort. No nausea vomiting. Urinary symptoms. No diarrhea. No history of bowel surgeries. Review his medical record shows that he has had a GI bleed in the past. Patient does state that his abdominal pain does seem to be positional and it hurts quite a bit on his right side. Got to the point this evening where he was in left discomfort which is why he called EMS. Related Data Home Medications Medication Instructions Recorded Confirmed atorvastatin 10 mg tablet 20 mg PO QPM 02/05/18 04/16/23 bupropion HCl 150 mg 24 hr tablet, 150 mg PO DAILY 02/05/18 04/16/23 extended release gabapentin 300 mg capsule 600 mg PO BEDTIME 02/05/18 04/16/23 fluoxetine 20 mg capsule 20 mg PO DAILY 09/02/18 04/16/23 vit C 250 mg-vit E 90 mg-zinc 40 1 tab PO BID 06/15/22 04/16/23 mg-copper 1 [id number] capsule (PreserVision AREDS-2) amlodipine 2.5 mg tablet 2.5 mg PO DAILY 07/09/22 04/16/23 metoprolol succinate 50 mg 25 mg PO QAM 07/09/22 04/16/23 tablet,extended release 24 hr ascorbate calcium (vitamin C) PO 12/23/22 12/30/22 cholecalciferol (vitamin D3) PO 12/23/22 12/30/22 coenzyme Q10 [Ultra CoQ10] PO 12/23/22 12/30/22 cyanocobalamin (vitamin B-12) PO 12/23/22 12/30/22 Previous Rx's Medication Instructions Recorded rivaroxaban 20 mg tablet (Xarelto) 20 mg PO QPM #30 tabs 06/19/22 tamsulosin 0.4 mg capsule See Rx Instructions .Route 07/23/22 .COMPLEX #180 caps Allergies Allergy/AdvReac Type Severity Reaction Status Date / Time No Known Drug Allergies Allergy Verified 12/30/22 13:46 Review of Systems <Ravinder Martínez DO - Last Filed: 04/16/23 17:59> Constitutional Constitutional: Reports system reviewed and no additional complaints, except as documented Cardiovascular Cardiovascular: Reports system reviewed and no additional complaints, except as documented Respiratory Respiratory: Reports system reviewed and no additional complaints, except as documented Gastrointestinal Gastrointestinal: Reports system reviewed and no additional complaints, except as documented Genitourinary Genitourinary: Reports system reviewed and no additional complaints, except as documented Musculoskeletal Musculoskeletal: Reports system reviewed and no additional complaints, except as documented Neurologic Neurologic: Reports system reviewed and no additional complaints, except as documented Hematologic/Lymphatic On Anticoagulants: Yes Patient History <Ravinder Martínez DO - Last Filed: 04/16/23 17:59> Medical History Post-void dribbling Incomplete emptying of bladder Chronic anticoagulation Benign prostatic hyperplasia Lower urinary tract symptoms Male circumcision Hearing impaired Cyst in hand (~2019) Nephrolithiasis Syncope Ischemia Chronic low back pain Prediabetes History of colon polyps Diverticulosis Osteoarthritis Anxiety Sinus congestion Atrophic gastritis Dizziness Psoriatic arthropathy RLS (restless legs syndrome) Erectile dysfunction Testosterone deficiency Vitamin D deficiency Depression Insomnia Hydronephrosis Alcoholism Retroperitoneal mass Paroxysmal atrial flutter Paroxysmal atrial fibrillation Hyperlipidemia HTN (hypertension) YAIMA on CPAP Psoriatic arthritis Psoriasis Surgical History Hx of bilateral cataract extraction Hx of tonsillectomy History of ear, nose, and throat (ENT) surgery Hx of hernia repair History of surgery (05/20/22) 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 Mother Cancer Diabetes mellitus Brother No problems noted. Sister No problems noted. Social History marital status: number of children: 3 household members: spouse Smoking Status: Never smoker alcohol intake: current Smoking Status: Never smoker alcohol intake frequency: 0-2 drinks per day Alcohol type: wine Substance Use Type: does not use Exam <Ravinder Martínez, DO - Last Filed: 04/16/23 17:59> Initial Vital Signs Initial Vital Signs: Vital Signs Temperature 102.1 F H 04/16/23 05:05 Pulse Rate 80 04/16/23 05:05 Respiratory Rate 20 04/16/23 05:05 Blood Pressure 152/75 H 04/16/23 05:05 Pulse Oximetry 95 04/16/23 05:05 Oxygen Delivery Method Room Air 04/16/23 05:05 Const General: cooperative and comfortable HENMT Head: normal to inspection and normocephalic Resp Auscultation: clear to auscultation bilaterally Percussion: percussion normal Cardio Rate: regular rate Rhythm: regular rhythm GI Inspection: normal to inspection and distended Palpation: soft, No guarding and tender Skin General: no rashes or lesions noted Neuro General: patient alert, patient awake, patient oriented x3 and moves all extremities <Alberto Chiu DO - Last Filed: 04/17/23 06:31> Initial Vital Signs Initial Vital Signs: Vital Signs Temperature 102.1 F H 04/16/23 05:05 Pulse Rate 80 04/16/23 05:05 Respiratory Rate 20 04/16/23 05:05 Blood Pressure 152/75 H 04/16/23 05:05 Pulse Oximetry 95 04/16/23 05:05 Oxygen Delivery Method Room Air 04/16/23 05:05 Course <Ravinder Martínez, DO - Last Filed: 04/16/23 17:59> Orders Ordered: Bupropion HCl (Bupropion Xl 150 Mg Tab) 150 mg PO DAILY [facility] Fluoxetine HCl (Fluoxetine 20 Mg Capsule) 20 mg PO DAILY [facility] Gabapentin (Gabapentin 300 Mg Capsule) 600 mg PO BEDTIME [facility] Last Admin: 04/16/23 16:04 Dose: 600 mg Documented By: MITCH Hydromorphone HCl (Hydromorphone 0.5 Mg Inj) 1 mg IV Q2H PRN PRN Reason: Pain, Severe (7-10) Lactated Ringer's (Lactated Ringers) 1,000 mls @ 42 mls/hr IV NOW ONE Stop: 04/17/23 13:01 Last Infusion: 04/16/23 14:20 Dose: Infused Documented By: Infusion: 04/16/23 14:20 Dose: Infused Documented By: Admin: 04/16/23 13:13 Dose: 42 mls/hr Documented By: YUNG Sodium Chloride (Normal Saline 0.9%) 1,000 mls @ 100 mls/hr IV CONT [facility] Last Admin: 04/17/23 01:46 Dose: 100 mls/hr Documented By: Infusion: 04/17/23 01:46 Dose: Infused Documented By: Admin: 04/16/23 16:07 Dose: 100 mls/hr Documented By: MITCH Piperacillin Sod/Tazobactam (Sod 3.375 gm/ Sodium Chloride) 100 mls @ 25 mls/hr IV Q8H [facility] Last Admin: 04/16/23 23:49 Dose: 25 mls/hr Documented By: Admin: 04/16/23 16:17 Dose: Not Given Documented By: MITCH Lutein (Vit C/E/Zn/Coppr/Lutein/Zeaxan Capsule) 1 cap PO BID [facility] Last Admin: 04/16/23 20:59 Dose: 1 cap Documented By: ALISSA Naloxone HCl (Naloxone 0.4 Mg/Ml Vial) 0.2 mg IV Q2MIN PRN PRN Reason: Opiate Reversal Ondansetron HCl (Ondansetron 4 Mg/2 Ml Inj) 4 mg IV Q8HR PRN PRN Reason: Nausea And Vomiting Oxycodone HCl (Oxycodone Ir 5 Mg Tablet) 5 mg PO Q3HR PRN PRN Reason: Pain, Moderate (4-6) Last Admin: 04/17/23 02:01 Dose: 5 mg Documented By: Admin: 04/16/23 16:07 Dose: 5 mg Documented By: MITCH Rivaroxaban (Rivaroxaban 10 Mg Tablet) 20 mg PO DAILY@1700 [facility] Tamsulosin HCl (Tamsulosin 0.4 Mg Capsule) 0.8 mg PO BEDTIME [facility] Last Admin: 04/16/23 21:38 Dose: 0.8 mg Documented By: ALISSA Discontinued Medications Acetaminophen (Acetaminophen 325 Mg Tablet) 650 mg PO NOW ONE Stop: 04/16/23 05:16 Last Admin: 04/16/23 05:31 Dose: 650 mg Documented By: DELANO Acetaminophen (Acetaminophen 325 Mg Tablet) 650 mg PO NOW ONE Stop: 04/16/23 10:40 Last Admin: 04/16/23 10:57 Dose: 650 mg Documented By: STEVEN Bupivacaine HCl (Bupivacaine 0.25% (Pf) Vial) 30 ml INJ NOW ONE Stop: 04/16/23 14:18 Last Admin: 04/16/23 14:17 Dose: 30 ml Documented By: BALJIT Fentanyl (Fentanyl 100 Mcg/2 Ml Inj) 0 mcg IV Q5MIN PRN PRN Reason: Pain, Severe (7-10) Sodium Chloride (Normal Saline 0.9%) 1,000 mls @ 100 mls/hr IV CONT ERIC Last Infusion: 04/16/23 10:58 Dose: 0 mls/hr Documented By: Infusion: 04/16/23 09:00 Dose: 100 mls/hr Documented By: Infusion: 04/16/23 07:20 Dose: 0 mls/hr Documented By: Admin: 04/16/23 05:32 Dose: 100 mls/hr Documented By: DELANO Piperacillin Sod/Tazobactam (Sod 4.5 gm/ Sodium Chloride) 100 mls @ 200 mls/hr IV NOW ONE Stop: 04/16/23 05:49 Last Infusion: 04/16/23 07:00 Dose: Infused Documented By: Admin: 04/16/23 06:25 Dose: 200 mls/hr Documented By: DANIS Sodium Chloride (Normal Saline 0.9%) 500 mls @ 1,000 mls/hr IV BOLUS ONE Stop: 04/16/23 11:08 Last Infusion: 04/16/23 15:29 Dose: Infused Documented By: Admin: 04/16/23 10:56 Dose: 1,000 mls/hr Documented By: STEVEN Prothrombin Complex Concent ( Human) 2,000 unit/Miscellaneous 80 mls @ 767.477 mls/hr IV NOW ONE; Protocol Stop: 04/16/23 10:57 Last Infusion: 04/16/23 15:29 Dose: Infused Documented By: Admin: 04/16/23 11:37 Dose: 3 unit/kg/min, 767.477 mls/hr Documented By: MITCH Piperacillin Sod/Tazobactam (Sod 3.375 gm/ Sodium Chloride) 100 mls @ 25 mls/hr IV Q8H ERIC Last Admin: 04/16/23 15:47 Dose: 25 mls/hr Documented By: GUSTAVO Cefazolin Sodium/Dextrose (Ancef) 100 mls @ 200 mls/hr IV NOW ONE Stop: 04/16/23 14:40 Last Infusion: 04/16/23 13:35 Dose: Infused Documented By: Admin: 04/16/23 13:30 Dose: 200 mls/hr Documented By: JANELL Metoclopramide HCl (Metoclopramide 10 Mg/2 Ml Inj) 10 mg IV NOW PRN PRN Reason: Nausea And Vomiting Ondansetron HCl (Ondansetron 4 Mg/2 Ml Inj) 4 mg IV NOW PRN PRN Reason: Nausea And Vomiting Oxycodone/Acetaminophen (Oxycodone/Acetaminophen 5/325 Tablet) 1 tab PO PACUNOW PRN PRN Reason: Mild or Moderate Pain Vital Signs Vital signs: Vital Signs - 8 hr 04/16/23 05:05 04/16/23 05:12 04/16/23 05:13 Temperature 102.1 F H Pulse Rate 80 85 85 Respiratory Rate 20 Blood Pressure 152/75 H Pulse Oximetry 95 95 Oxygen Delivery Method Room Air 04/16/23 05:13 04/16/23 05:30 04/16/23 05:31 Temperature 102.1 F H Pulse Rate 75 Respiratory Rate 15 Blood Pressure 152/75 H Pulse Oximetry 95 Oxygen Delivery Method 04/16/23 05:56 04/16/23 05:56 04/16/23 06:00 Temperature Pulse Rate 80 Respiratory Rate 20 Blood Pressure 150/67 H 139/65 Pulse Oximetry 94 Oxygen Delivery Method 04/16/23 06:00 04/16/23 06:30 04/16/23 07:00 Temperature Pulse Rate 80 81 80 Respiratory Rate 20 22 Blood Pressure Pulse Oximetry 93 94 94 Oxygen Delivery Method Room Air <Alberto Chiu DO - Last Filed: 04/17/23 06:31> Orders Ordered: Bupropion HCl (Bupropion Xl 150 Mg Tab) 150 mg PO DAILY ERIC Fluoxetine HCl (Fluoxetine 20 Mg Capsule) 20 mg PO DAILY ER[facility] Gabapentin (Gabapentin 300 Mg Capsule) 600 mg PO BEDTIME ERIC Last Admin: 04/16/23 16:04 Dose: 600 mg Documented By: MITCH Hydromorphone HCl (Hydromorphone 0.5 Mg Inj) 1 mg IV Q2H PRN PRN Reason: Pain, Severe (7-10) Lactated Ringer's (Lactated Ringers) 1,000 mls @ 42 mls/hr IV NOW ONE Stop: 04/17/23 13:01 Last Infusion: 04/16/23 14:20 Dose: Infused Documented By: Infusion: 04/16/23 14:20 Dose: Infused Documented By: Admin: 04/16/23 13:13 Dose: 42 mls/hr Documented By: YUNG Sodium Chloride (Normal Saline 0.9%) 1,000 mls @ 100 mls/hr IV CONT [facility] Last Admin: 04/17/23 01:46 Dose: 100 mls/hr Documented By: Infusion: 04/17/23 01:46 Dose: Infused Documented By: Admin: 04/16/23 16:07 Dose: 100 mls/hr Documented By: MITCH Piperacillin Sod/Tazobactam (Sod 3.375 gm/ Sodium Chloride) 100 mls @ 25 mls/hr IV Q8H [facility] Last Admin: 04/16/23 23:49 Dose: 25 mls/hr Documented By: Admin: 04/16/23 16:17 Dose: Not Given Documented By: MITCH Lutein (Vit C/E/Zn/Coppr/Lutein/Zeaxan Capsule) 1 cap PO BID [facility] Last Admin: 04/16/23 20:59 Dose: 1 cap Documented By: ALISSA Naloxone HCl (Naloxone 0.4 Mg/Ml Vial) 0.2 mg IV Q2MIN PRN PRN Reason: Opiate Reversal Ondansetron HCl (Ondansetron 4 Mg/2 Ml Inj) 4 mg IV Q8HR PRN PRN Reason: Nausea And Vomiting Oxycodone HCl (Oxycodone Ir 5 Mg Tablet) 5 mg PO Q3HR PRN PRN Reason: Pain, Moderate (4-6) Last Admin: 04/17/23 02:01 Dose: 5 mg Documented By: Admin: 04/16/23 16:07 Dose: 5 mg Documented By: MITCH Rivaroxaban (Rivaroxaban 10 Mg Tablet) 20 mg PO DAILY@1700 ER[facility] Tamsulosin HCl (Tamsulosin 0.4 Mg Capsule) 0.8 mg PO BEDTIME [facility] Last Admin: 04/16/23 21:38 Dose: 0.8 mg Documented By: ALISSA Discontinued Medications Acetaminophen (Acetaminophen 325 Mg Tablet) 650 mg PO NOW ONE Stop: 04/16/23 05:16 Last Admin: 04/16/23 05:31 Dose: 650 mg Documented By: DELANO Acetaminophen (Acetaminophen 325 Mg Tablet) 650 mg PO NOW ONE Stop: 04/16/23 10:40 Last Admin: 04/16/23 10:57 Dose: 650 mg Documented By: STEVEN Bupivacaine HCl (Bupivacaine 0.25% (Pf) Vial) 30 ml INJ NOW ONE Stop: 04/16/23 14:18 Last Admin: 04/16/23 14:17 Dose: 30 ml Documented By: BALJIT Fentanyl (Fentanyl 100 Mcg/2 Ml Inj) 0 mcg IV Q5MIN PRN PRN Reason: Pain, Severe (7-10) Sodium Chloride (Normal Saline 0.9%) 1,000 mls @ 100 mls/hr IV CONT ERIC Last Infusion: 04/16/23 10:58 Dose: 0 mls/hr Documented By: Infusion: 04/16/23 09:00 Dose: 100 mls/hr Documented By: Infusion: 04/16/23 07:20 Dose: 0 mls/hr Documented By: Admin: 04/16/23 05:32 Dose: 100 mls/hr Documented By: DELANO Piperacillin Sod/Tazobactam (Sod 4.5 gm/ Sodium Chloride) 100 mls @ 200 mls/hr IV NOW ONE Stop: 04/16/23 05:49 Last Infusion: 04/16/23 07:00 Dose: Infused Documented By: Admin: 04/16/23 06:25 Dose: 200 mls/hr Documented By: DANIS Sodium Chloride (Normal Saline 0.9%) 500 mls @ 1,000 mls/hr IV BOLUS ONE Stop: 04/16/23 11:08 Last Infusion: 04/16/23 15:29 Dose: Infused Documented By: Admin: 04/16/23 10:56 Dose: 1,000 mls/hr Documented By: STEVEN Prothrombin Complex Concent ( Human) 2,000 unit/Miscellaneous 80 mls @ 767.477 mls/hr IV NOW ONE; Protocol Stop: 04/16/23 10:57 Last Infusion: 04/16/23 15:29 Dose: Infused Documented By: Admin: 04/16/23 11:37 Dose: 3 unit/kg/min, 767.477 mls/hr Documented By: MITCH Piperacillin Sod/Tazobactam (Sod 3.375 gm/ Sodium Chloride) 100 mls @ 25 mls/hr IV Q8H [facility] Last Admin: 04/16/23 15:47 Dose: 25 mls/hr Documented By: GUSTAVO Cefazolin Sodium/Dextrose (Ancef) 100 mls @ 200 mls/hr IV NOW ONE Stop: 04/16/23 14:40 Last Infusion: 04/16/23 13:35 Dose: Infused Documented By: Admin: 04/16/23 13:30 Dose: 200 mls/hr Documented By: JANELL Metoclopramide HCl (Metoclopramide 10 Mg/2 Ml Inj) 10 mg IV NOW PRN PRN Reason: Nausea And Vomiting Ondansetron HCl (Ondansetron 4 Mg/2 Ml Inj) 4 mg IV NOW PRN PRN Reason: Nausea And Vomiting Oxycodone/Acetaminophen (Oxycodone/Acetaminophen 5/325 Tablet) 1 tab PO PACUNOW PRN PRN Reason: Mild or Moderate Pain Vital Signs Vital signs: Vital Signs - 8 hr 04/16/23 05:05 04/16/23 05:12 04/16/23 05:13 Temperature 102.1 F H Pulse Rate 80 85 85 Respiratory Rate 20 Blood Pressure 152/75 H Pulse Oximetry 95 95 Oxygen Delivery Method Room Air 04/16/23 05:13 04/16/23 05:30 04/16/23 05:31 Temperature 102.1 F H Pulse Rate 75 Respiratory Rate 15 Blood Pressure 152/75 H Pulse Oximetry 95 Oxygen Delivery Method 04/16/23 05:56 04/16/23 05:56 04/16/23 06:00 Temperature Pulse Rate 80 Respiratory Rate 20 Blood Pressure 150/67 H 139/65 Pulse Oximetry 94 Oxygen Delivery Method 04/16/23 06:00 04/16/23 06:30 04/16/23 07:00 Temperature Pulse Rate 80 81 80 Respiratory Rate 20 22 Blood Pressure Pulse Oximetry 93 94 94 Oxygen Delivery Method Room Air Medical Decision Making <Ravinder Martínez DO - Last Filed: 04/16/23 17:59> Lab Data Lab results reviewed: Yes I reviewed the patient's lab results. 04/16/23 12:08 04/16/23 12:08 Labs: Lab Results 04/16/23 04/16/23 04/16/23 Range/Units 05:05 05:20 05:25 WBC 13.3 H (4.5-11.0) X10^3/uL RBC 4.52 (4.5-5.9) X10^6/uL Hgb 13.7 (13.5-17.5) g/dL Hct 40.9 L (41-53) % MCV 90.4 (80-100) fL MCH 30.3 (26-34) PG MCHC 33.5 (30-36) % RDW 19.8 H (11.6-14.8) % Plt Count 158 (150-400) X10^3/uL Neut % (Auto) 86.0 H (50-75) % Lymph % (Auto) 6.9 L (25-40) % Moffat % (Auto) 6.7 (3-14) % Eos % (Auto) 0.0 L (2-4) % Baso % (Auto) 0.4 (0-2) % Neut # (Auto) 38857 H (6844-1038) /uL Lymph # (Auto) 900 L (4101-4367) /uL [place] # (Auto) 900 (0-900) /uL Eos # (Auto) 0 (0-450) /uL Baso # (Auto) 0 (0-100) /uL PT 41.6 H (10.1-12.7) SECONDS INR 3.6 H (0.9-1.3) APTT 99 H* (26-36) SECONDS Sodium 134 L (137-145) mmol/L Potassium 3.8 (3.4-5.1) mmol/L Chloride 102 (98-107) mmol/L Carbon Dioxide 24 (22-32) mmol/L BUN 19 (9-20) mg/dL Creatinine 0.79 (0.66-1.25) mg/dL Estimated GFR > 60 (>60) mL/min BUN/Creatinine Ratio 24.1 H (6-22) Glucose 139 H (80-110) mg/dL Lactate 1.2 (0.7-2.1) mmol/L Calcium 9.1 (8.4-10.2) mg/dL Total Bilirubin 3.3 H (0.2-1.3) mg/dL AST 449 H (17-59) IU/L ALT 193 H (<50) IU/L Alkaline Phosphatase 181 H (38-126) U/L Total Protein 7.0 (6.3-8.2) g/dL Albumin 3.7 (3.5-5.0) g/dL Globulin 3.3 (1.7-4.1) g/dL Albumin/Globulin Ratio 1.1 (1.0-2.8) Lipase 62 (23-300) U/L Procalcitonin 0.30 (<0.5) ng/mL Ur Bilirubin Confirm Positive H (Negative) Urine RBC None seen (0-5/HPF) Urine WBC None seen (0-5/HPF) Ur Squamous Epith Cells None seen (0-5/HPF) Urine Bacteria None seen (None) Urine Mucus 1+ H (Negative) Ur Culture Indicated? Cult not indicated Ethyl Alcohol < 10 ( - 10) mg/dL A.calcoaceticus-baumannii cmplx PCR (Not Detect) Bacteroides fragilis (Not Detect) Didi albicans (PCR) (Not Detect) Didi auris (PCR) (Not Detect) C. glabrata (PCR) (Not Detect) C. krusei (PCR) (Not Detect) C. parapsilosis (PCR) (Not Detect) C. tropicalis (PCR) (Not Detect) SARS-CoV-2 (PCR) Negative (Negative) C. neoform/gattii (PCR) (Not Detect) Enterobacterales (PCR) (Not Detect) E. cloacae complex PCR (Not Detect) Enterococc faecalis PCR (Not Detect) Enterococc faecium PCR (Not Detect) E. coli (PCR) (Not Detect) H. influenzae (PCR) (Not Detect) Klebsiella aerogenes (PCR) (Not Detect) Klebsiella oxytoca PCR (Not Detect) Klebsiella pneumoniae (Not Detect) List. monocytogenes PCR (Not Detect) N. meningitidis (PCR) (Not Detect) Proteus species (PCR) (Not Detect) Salmonella spp. (PCR) (Not Detect) Serratia marcescens PCR (Not Detect) Staphylococcus sp PCR (Not Detect) Staph aureus (PCR) (Not Detect) mecA/C & MREJ Resist Gene (Not Detect) mecA/C-Methicil Resis Gene (Not Detect) mcr-1 Colistin Res Gene PCR (Not Detect) Staph epidermidis (PCR) (Not Detect) Staph lugdunensis PCR (Not Detect) S. maltophilia (PCR) (Not Detect) Streptococcus sp PCR (Not Detect) Group A Strep (PCR) (Not Detect) Strep agalactiae (PCR) (Not Detect) Strep pneumoniae (PCR) (Not Detect) P. aeruginosa (PCR) (Not Detect) Julee/B-Vanco Res Genes (Not Detect) blaIMP Car res Gene PCR (Not Detect) KPC-Carbap Res Gene PCR (Not Detect) blaNDM Car Res Gene PCR (Not Detect) OXA-48 Carbapenem Resis Gene (PCR) (Not Detect) blaVIM Car Res Gene PCR (Not Detect) CTX-M Gene Resistance (PCR) (Not Detect) 04/16/23 Range/Units 05:55 WBC (4.5-11.0) X10^3/uL RBC (4.5-5.9) X10^6/uL Hgb (13.5-17.5) g/dL Hct (41-53) % MCV (80-100) fL MCH (26-34) PG MCHC (30-36) % RDW (11.6-14.8) % Plt Count (150-400) X10^3/uL Neut % (Auto) (50-75) % Lymph % (Auto) (25-40) % Moffat % (Auto) (3-14) % Eos % (Auto) (2-4) % Baso % (Auto) (0-2) % Neut # (Auto) (7828-3947) /uL Lymph # (Auto) (5982-5568) /uL Moffat # (Auto) (0-900) /uL Eos # (Auto) (0-450) /uL Baso # (Auto) (0-100) /uL PT (10.1-12.7) SECONDS INR (0.9-1.3) APTT (26-36) SECONDS Sodium (137-145) mmol/L Potassium (3.4-5.1) mmol/L Chloride (98-107) mmol/L Carbon Dioxide (22-32) mmol/L BUN (9-20) mg/dL Creatinine (0.66-1.25) mg/dL Estimated GFR (>60) mL/min BUN/Creatinine Ratio (6-22) Glucose (80-110) mg/dL Lactate (0.7-2.1) mmol/L Calcium (8.4-10.2) mg/dL Total Bilirubin (0.2-1.3) mg/dL AST (17-59) IU/L ALT (<50) IU/L Alkaline Phosphatase (38-126) U/L Total Protein (6.3-8.2) g/dL Albumin (3.5-5.0) g/dL Globulin (1.7-4.1) g/dL Albumin/Globulin Ratio (1.0-2.8) Lipase (23-300) U/L Procalcitonin (<0.5) ng/mL Ur Bilirubin Confirm (Negative) Urine RBC (0-5/HPF) Urine WBC (0-5/HPF) Ur Squamous Epith Cells (0-5/HPF) Urine Bacteria (None) Urine Mucus (Negative) Ur Culture Indicated? Ethyl Alcohol ( - 10) mg/dL A.calcoaceticus-baumannii cmplx PCR Not detected (Not Detect) Bacteroides fragilis Not detected (Not Detect) Didi albicans (PCR) Not detected (Not Detect) Didi auris (PCR) Not detected (Not Detect) C. glabrata (PCR) Not detected (Not Detect) C. krusei (PCR) Not detected (Not Detect) C. parapsilosis (PCR) Not detected (Not Detect) C. tropicalis (PCR) Not detected (Not Detect) SARS-CoV-2 (PCR) (Negative) C. neoform/gattii (PCR) Not detected (Not Detect) Enterobacterales (PCR) Detected (Not Detect) E. cloacae complex PCR Not detected (Not Detect) Enterococc faecalis PCR Not detected (Not Detect) Enterococc faecium PCR Not detected (Not Detect) E. coli (PCR) Detected (Not Detect) H. influenzae (PCR) Not detected (Not Detect) Klebsiella aerogenes (PCR) Not detected (Not Detect) Klebsiella oxytoca PCR Not detected (Not Detect) Klebsiella pneumoniae Not detected (Not Detect) List. monocytogenes PCR Not detected (Not Detect) N. meningitidis (PCR) Not detected (Not Detect) Proteus species (PCR) Not detected (Not Detect) Salmonella spp. (PCR) Not detected (Not Detect) Serratia marcescens PCR Not detected (Not Detect) Staphylococcus sp PCR Not detected (Not Detect) Staph aureus (PCR) Not detected (Not Detect) mecA/C & MREJ Resist Gene Not applicable (Not Detect) mecA/C-Methicil Resis Gene Not applicable (Not Detect) mcr-1 Colistin Res Gene PCR Not detected (Not Detect) Staph epidermidis (PCR) Not detected (Not Detect) Staph lugdunensis PCR Not detected (Not Detect) S. maltophilia (PCR) Not detected (Not Detect) Streptococcus sp PCR Not detected (Not Detect) Group A Strep (PCR) Not detected (Not Detect) Strep agalactiae (PCR) Not detected (Not Detect) Strep pneumoniae (PCR) Not detected (Not Detect) P. aeruginosa (PCR) Not detected (Not Detect) Julee/B-Vanco Res Genes Not applicable (Not Detect) blaIMP Car res Gene PCR Not detected (Not Detect) KPC-Carbap Res Gene PCR Not detected (Not Detect) blaNDM Car Res Gene PCR Not detected (Not Detect) OXA-48 Carbapenem Resis Gene (PCR) Not detected (Not Detect) blaVIM Car Res Gene PCR Not detected (Not Detect) CTX-M Gene Resistance (PCR) Not detected (Not Detect) Urine Dip Bedside Urine Glucose Negative Bedside Urine Bilirubin + 1 Bedside Urine Ketone +/- 5 Urine Specific [place] 1.030 Bedside Urine Occult Blood + Bedside Urine pH 6 Bedside Urine Protein + 30 Bedside Urine Urobilinogen - Negative Bedside Urine Nitrite - Negative Bedside Urine Leukocytes +/- 15 Esterase Point of care testing: Urine Dip Bedside Urine Glucose Negative Bedside Urine Bilirubin + 1 Bedside Urine Ketone +/- 5 Urine Specific [place] 1.030 Bedside Urine Occult Blood + Bedside Urine pH 6 Bedside Urine Protein + 30 Bedside Urine Urobilinogen - Negative Bedside Urine Nitrite - Negative Bedside Urine Leukocytes +/- [address] scan - abdomen/pelvis: Radiologist's Impression: Distended thickened gallbladder with pericholecystic edema worrisome for cholecystitis. No calcified stones are demonstrated. Nonspecific low-density non-cystic retroperitoneal lesion closely approximating the right adrenal gland and IVC measuring 9.2 x 4 x 7.8 cm. Lymphadenopathy, lymphoma and primary retroperitoneal neoplasms over the in the differential diagnosis. MDM Narrative Medical decision making narrative: Patient and his at bedside states that they know about the mass in the right-sided abdomen. He states that it has been followed in his been unchanged for many years. Several days of generalized abdominal pain. Was febrile upon arrival. Was not tachycardic. Is anticoagulated secondary to atrial fibrillation. He did have generalized abdominal tenderness specifically in the right upper quadrant. He does have leukocytosis. Blood cultures ordered. Antibiotics administered. LFTs to include bilirubin elevated but has a normal lipase. Lactate negative. Patient has not been hypotensive and does not have an elevated lactate. He is mentating well with normal kidney function so I will hold on 30 cc/kilogram of fluid. CT scan shows distended thickened gallbladder with pericholecystic edema worrisome for cholecystitis. <Alberto Chiu, - Last Filed: 04/17/23 06:31> Lab Data Labs: Lab Results 04/16/23 04/16/23 04/16/23 Range/Units 05:05 05:20 05:25 WBC 13.3 H (4.5-11.0) X10^3/uL RBC 4.52 (4.5-5.9) X10^6/uL Hgb 13.7 (13.5-17.5) g/dL Hct 40.9 L (41-53) % MCV 90.4 (80-100) fL MCH 30.3 (26-34) PG MCHC 33.5 (30-36) % RDW 19.8 H (11.6-14.8) % Plt Count 158 (150-400) X10^3/uL Neut % (Auto) 86.0 H (50-75) % Lymph % (Auto) 6.9 L (25-40) % [place] % (Auto) 6.7 (3-14) % Eos % (Auto) 0.0 L (2-4) % Baso % (Auto) 0.4 (0-2) % Neut # (Auto) 18148 H (9019-3963) /uL Lymph # (Auto) 900 L (0972-5554) /uL [place] # (Auto) 900 (0-900) /uL Eos # (Auto) 0 (0-450) /uL Baso # (Auto) 0 (0-100) /uL PT 41.6 H (10.1-12.7) SECONDS INR 3.6 H (0.9-1.3) APTT 99 H* (26-36) SECONDS Sodium 134 L (137-145) mmol/L Potassium 3.8 (3.4-5.1) mmol/L Chloride 102 (98-107) mmol/L Carbon Dioxide 24 (22-32) mmol/L BUN 19 (9-20) mg/dL Creatinine 0.79 (0.66-1.25) mg/dL Estimated GFR > 60 (>60) mL/min BUN/Creatinine Ratio 24.1 H (6-22) Glucose 139 H (80-110) mg/dL Lactate 1.2 (0.7-2.1) mmol/L Calcium 9.1 (8.4-10.2) mg/dL Total Bilirubin 3.3 H (0.2-1.3) mg/dL AST 449 H (17-59) IU/L ALT 193 H (<50) IU/L Alkaline Phosphatase 181 H (38-126) U/L Total Protein 7.0 (6.3-8.2) g/dL Albumin 3.7 (3.5-5.0) g/dL Globulin 3.3 (1.7-4.1) g/dL Albumin/Globulin Ratio 1.1 (1.0-2.8) Lipase 62 (23-300) U/L Procalcitonin 0.30 (<0.5) ng/mL Ur Bilirubin Confirm Positive H (Negative) Urine RBC None seen (0-5/HPF) Urine WBC None seen (0-5/HPF) Ur Squamous Epith Cells None seen (0-5/HPF) Urine Bacteria None seen (None) Urine Mucus 1+ H (Negative) Ur Culture Indicated? Cult not indicated Ethyl Alcohol < 10 ( - 10) mg/dL A.calcoaceticus-baumannii cmplx PCR (Not Detect) Bacteroides fragilis (Not Detect) Didi albicans (PCR) (Not Detect) Didi auris (PCR) (Not Detect) C. glabrata (PCR) (Not Detect) C. krusei (PCR) (Not Detect) C. parapsilosis (PCR) (Not Detect) C. tropicalis (PCR) (Not Detect) SARS-CoV-2 (PCR) Negative (Negative) C. neoform/gattii (PCR) (Not Detect) Enterobacterales (PCR) (Not Detect) E. cloacae complex PCR (Not Detect) Enterococc faecalis PCR (Not Detect) Enterococc faecium PCR (Not Detect) E. coli (PCR) (Not Detect) H. influenzae (PCR) (Not Detect) Klebsiella aerogenes (PCR) (Not Detect) Klebsiella oxytoca PCR (Not Detect) Klebsiella pneumoniae (Not Detect) List. monocytogenes PCR (Not Detect) N. meningitidis (PCR) (Not Detect) Proteus species (PCR) (Not Detect) Salmonella spp. (PCR) (Not Detect) Serratia marcescens PCR (Not Detect) Staphylococcus sp PCR (Not Detect) Staph aureus (PCR) (Not Detect) mecA/C & MREJ Resist Gene (Not Detect) mecA/C-Methicil Resis Gene (Not Detect) mcr-1 Colistin Res Gene PCR (Not Detect) Staph epidermidis (PCR) (Not Detect) Staph lugdunensis PCR (Not Detect) S. maltophilia (PCR) (Not Detect) Streptococcus sp PCR (Not Detect) Group A Strep (PCR) (Not Detect) Strep agalactiae (PCR) (Not Detect) Strep pneumoniae (PCR) (Not Detect) P. aeruginosa (PCR) (Not Detect) Julee/B-Vanco Res Genes (Not Detect) blaIMP Car res Gene PCR (Not Detect) KPC-Carbap Res Gene PCR (Not Detect) blaNDM Car Res Gene PCR (Not Detect) OXA-48 Carbapenem Resis Gene (PCR) (Not Detect) blaVIM Car Res Gene PCR (Not Detect) CTX-M Gene Resistance (PCR) (Not Detect) 04/16/23 Range/Units 05:55 WBC (4.5-11.0) X10^3/uL RBC (4.5-5.9) X10^6/uL Hgb (13.5-17.5) g/dL Hct (41-53) % MCV (80-100) fL MCH (26-34) PG MCHC (30-36) % RDW (11.6-14.8) % Plt Count (150-400) X10^3/uL Neut % (Auto) (50-75) % Lymph % (Auto) (25-40) % [place] % (Auto) (3-14) % Eos % (Auto) (2-4) % Baso % (Auto) (0-2) % Neut # (Auto) (5791-4407) /uL Lymph # (Auto) (4849-1585) /uL [place]at # (Auto) (0-900) /uL Eos # (Auto) (0-450) /uL Baso # (Auto) (0-100) /uL PT (10.1-12.7) SECONDS INR (0.9-1.3) APTT (26-36) SECONDS Sodium (137-145) mmol/L Potassium (3.4-5.1) mmol/L Chloride (98-107) mmol/L Carbon Dioxide (22-32) mmol/L BUN (9-20) mg/dL Creatinine (0.66-1.25) mg/dL Estimated GFR (>60) mL/min BUN/Creatinine Ratio (6-22) Glucose (80-110) mg/dL Lactate (0.7-2.1) mmol/L Calcium (8.4-10.2) mg/dL Total Bilirubin (0.2-1.3) mg/dL AST (17-59) IU/L ALT (<50) IU/L Alkaline Phosphatase (38-126) U/L Total Protein (6.3-8.2) g/dL Albumin (3.5-5.0) g/dL Globulin (1.7-4.1) g/dL Albumin/Globulin Ratio (1.0-2.8) Lipase (23-300) U/L Procalcitonin (<0.5) ng/mL Ur Bilirubin Confirm (Negative) Urine RBC (0-5/HPF) Urine WBC (0-5/HPF) Ur Squamous Epith Cells (0-5/HPF) Urine Bacteria (None) Urine Mucus (Negative) Ur Culture Indicated? Ethyl Alcohol ( - 10) mg/dL A.calcoaceticus-baumannii cmplx PCR Not detected (Not Detect) Bacteroides fragilis Not detected (Not Detect) Didi albicans (PCR) Not detected (Not Detect) Didi auris (PCR) Not detected (Not Detect) C. glabrata (PCR) Not detected (Not Detect) C. krusei (PCR) Not detected (Not Detect) C. parapsilosis (PCR) Not detected (Not Detect) C. tropicalis (PCR) Not detected (Not Detect) SARS-CoV-2 (PCR) (Negative) C. neoform/gattii (PCR) Not detected (Not Detect) Enterobacterales (PCR) Detected (Not Detect) E. cloacae complex PCR Not detected (Not Detect) Enterococc faecalis PCR Not detected (Not Detect) Enterococc faecium PCR Not detected (Not Detect) E. coli (PCR) Detected (Not Detect) H. influenzae (PCR) Not detected (Not Detect) Klebsiella aerogenes (PCR) Not detected (Not Detect) Klebsiella oxytoca PCR Not detected (Not Detect) Klebsiella pneumoniae Not detected (Not Detect) List. monocytogenes PCR Not detected (Not Detect) N. meningitidis (PCR) Not detected (Not Detect) Proteus species (PCR) Not detected (Not Detect) Salmonella spp. (PCR) Not detected (Not Detect) Serratia marcescens PCR Not detected (Not Detect) Staphylococcus sp PCR Not detected (Not Detect) Staph aureus (PCR) Not detected (Not Detect) mecA/C & MREJ Resist Gene Not applicable (Not Detect) mecA/C-Methicil Resis Gene Not applicable (Not Detect) mcr-1 Colistin Res Gene PCR Not detected (Not Detect) Staph epidermidis (PCR) Not detected (Not Detect) Staph lugdunensis PCR Not detected (Not Detect) S. maltophilia (PCR) Not detected (Not Detect) Streptococcus sp PCR Not detected (Not Detect) Group A Strep (PCR) Not detected (Not Detect) Strep agalactiae (PCR) Not detected (Not Detect) Strep pneumoniae (PCR) Not detected (Not Detect) P. aeruginosa (PCR) Not detected (Not Detect) Julee/B-Vanco Res Genes Not applicable (Not Detect) blaIMP Car res Gene PCR Not detected (Not Detect) KPC-Carbap Res Gene PCR Not detected (Not Detect) blaNDM Car Res Gene PCR Not detected (Not Detect) OXA-48 Carbapenem Resis Gene (PCR) Not detected (Not Detect) blaVIM Car Res Gene PCR Not detected (Not Detect) CTX-M Gene Resistance (PCR) Not detected (Not Detect) Urine Dip Bedside Urine Glucose Negative Bedside Urine Bilirubin + 1 Bedside Urine Ketone +/- 5 Urine Specific [place] 1.030 Bedside Urine Occult Blood + Bedside Urine pH 6 Bedside Urine Protein + 30 Bedside Urine Urobilinogen - Negative Bedside Urine Nitrite - Negative Bedside Urine Leukocytes +/- 15 Esterase Point of care testing: Urine Dip Bedside Urine Glucose Negative Bedside Urine Bilirubin + 1 Bedside Urine Ketone +/- 5 Urine Specific [place] 1.030 Bedside Urine Occult Blood + Bedside Urine pH 6 Bedside Urine Protein + 30 Bedside Urine Urobilinogen - Negative Bedside Urine Nitrite - Negative Bedside Urine Leukocytes +/- [address] scan - abdomen/pelvis: Radiologist's Impression: Distended thickened gallbladder with pericholecystic edema worrisome for cholecystitis. No calcified stones are demonstrated. Nonspecific low-density non-cystic retroperitoneal lesion closely approximating the right adrenal gland and IVC measuring 9.2 x 4 x 7.8 cm. Lymphadenopathy, lymphoma and primary retroperitoneal neoplasms over the in the differential diagnosis. MDM Narrative Medical decision making narrative: Patient and his at bedside states that they know about the mass in the right-sided abdomen. He states that it has been followed in his been unchanged for many years. Several days of generalized abdominal pain. Was febrile upon arrival. Was not tachycardic. Is anticoagulated secondary to atrial fibrillation. He did have generalized abdominal tenderness specifically in the right upper quadrant. He does have leukocytosis. Blood cultures ordered. Antibiotics administered. LFTs to include bilirubin elevated but has a normal lipase. Lactate negative. Patient has not been hypotensive and does not have an elevated lactate. He is mentating well with normal kidney function so I will hold on 30 cc/kilogram of fluid. CT scan shows distended thickened gallbladder with pericholecystic edema worrisome for cholecystitis. [0700] (Aram) Patient received in sign out from [Mauricio]. I have reviewed the clinical course and performed an independent history and physical exam. I have discussed this case with on-call General surgery, Dr. Rivera. He requests MRCP for further evaluation, obstructive pattern of labs raises the question of a stone in the common bile duct. 0840 - discussed MRI findings with Dr. Rivera. Will keep on ABX, admit to hospitalist, likely surgery this weekend. Also discussed findings with patient and family. 0900 - discussed with hospitalist, happy to accept on his service Discharge Plan Departure Patient Disposition: Admitted As Inpatient Clinical Impression: Acute cholecystitis, Retroperitoneal mass Admit Date/Time: 04/16/23 09:26 Admit Provider: Evens Edwards
[2023-04-16 05:28] LABS: Add Manual Diff / Slide Review NO; Basophils Absolute Auto 0 /uL (0-100); Basophils Percent Auto 0.4 % (0-2); Eosinophils Absolute Auto 0 /uL (0-450); Hematocrit 40.9 % (41-53); Hemoglobin 13.7 g/dL (13.5-17.5); Lymphocytes Absolute Auto 900 /uL (1100-4500); Lymphocytes Percent Auto 6.9 % (25-40); Mean Corpuscular HGB Conc 33.5 % (30-36); Mean Corpuscular Hemoglobin 30.3 PG (26-34); Mean Corpuscular Volume 90.4 fL (80-100); Monocytes Absolute Auto 900 /uL (0-900); Monocytes Percent Auto 6.7 % (3-14); Neutrophils Absolute Auto 11500 /uL (1500-7000); Platelet Count 158 X10^3/uL (150-400); Red Blood Cell Count 4.52 X10^6/uL (4.5-5.9); Red Cell Distribution Width 19.8 % (11.6-14.8); White Blood Cell Count 13.3 X10^3/uL (4.5-11.0)
[2023-04-16 05:29] LABS: INR 3.6 (0.9-1.3); Prothrombin Time 41.6 SECONDS (10.1-12.7)
[2023-04-16] MEDS: ACETAMINOPHEN 325 MG TABLET 650 MG PO ×2 (05:31→10:57)
[2023-04-16] MEDS: SODIUM CHLORIDE 0.9% 1,000 ML 100 ML IV ×2 (05:32→16:07)
[2023-04-16 05:40] LABS: Alanine Aminotransferase 193 IU/L (<50); Albumin 3.7 g/dL (3.5-5.0); Albumin Globulin Ratio 1.1 (1.0-2.8); Alkaline Phosphatase 181 U/L (38-126); Aspartate Aminotransferase 449 IU/L (17-59); BUN Creatinine Ratio 24.1 (6-22); Bilirubin Total 3.3 mg/dL (0.2-1.3); Blood Urea Nitrogen 19 mg/dL (9-20); Calcium 9.1 mg/dL (8.4-10.2); Carbon Dioxide 24 mmol/L (22-32); Chloride 102 mmol/L (98-107); Estimated Glomerular Filt Rate > 60 mL/min (>60); Globulin 3.3 g/dL (1.7-4.1); Glucose 139 mg/dL (80-110); HEMOLYSIS 35 (0-50); Lipase 62 U/L (23-300); Potassium 3.8 mmol/L (3.4-5.1); Sodium 134 mmol/L (137-145)
[2023-04-16 05:41] LABS: Ethanol (ETOH) < 10 mg/dL
[2023-04-16 05:42] LABS: Bacteria Urine None Seen; Culture Indicated Urine Cult Not Indicated; Ictotest Urine Positive (Negative); Mucus Urine 1+ (Negative); RBC Urine None Seen (0-5/HPF); Squamous Epithelial Cell Urine None Seen (0-5/HPF); WBC Urine None Seen (0-5/HPF)
[2023-04-16 05:45] LABS: COVID19 -Nasal RAPID Negative (Negative)
[2023-04-16 05:46] LABS: Lactate (Lactic Acid) 1.2 mmol/L (0.7-2.1)
[2023-04-16 05:48] LABS: PTT Partial Thromboplastin Tim 99 SECONDS (26-36)
[2023-04-16] MEDS: PIPERACILLIN/TAZO 4.5 GM in SODIUM CHLORIDE 0.9% 100 ML IV (06:25)
--- NOTE | 2023-04-16 07:05 | DI.MRI.S_ITS ---
PROCEDURE: MR ABDOMEN WO CON INDICATIONS: Eval for choledocholithiasis TECHNIQUE: Coronal HASTE through the abdomen, axial 2-D FLASH in- and [id number], and breath-hold T2 FSE with fat saturation through the biliary system and pancreas. Oblique coronal and axial thin-slice HASTE, radial thick-slab HASTE centered on the extrahepatic bile ducts. Intravenous secretin: Not requested. COMPARISON: [facility], CT, CT ABDOMEN PELVIS W CON, 03/08/2018, 10:20. [facility], CT, CT ABDOMEN PELVIS W CON, 04/16/2023, 5:48. FINDINGS: Image quality: Excellent. Liver: No solid mass. Gallbladder and biliary tree: Cholelithiasis. Gallbladder sludge. Irregular wall thickening and pericholecystic edema. No intrahepatic or extrahepatic biliary dilation. No filling defect within the common bile duct. Spleen: Normal size. Pancreas: No ductal dilation. Adrenal glands: No adrenal nodules. Kidneys: No hydronephrosis. No solid mass. No complex renal cysts which requires follow-up. In the retroperitoneal space on the right, there is an 8.9 x 5.0 cm fat containing mass with heterogeneous intensity (series 4, image 23). Nodes and vessels: No retroperitoneal or mesenteric adenopathy by size criteria. Aorta and inferior vena cava are normal in size. Bowel and peritoneum: Unenhanced bowel loops are normal in caliber. No free fluid. Colonic diverticulosis without evidence of diverticulitis. Lung bases: No basal pleural effusions. Heart size is normal. Bones and soft tissues: No ventral hernias. Bone marrow is of normal overall signal. IMPRESSION: Acute cholecystitis. No evidence of choledocholithiasis. Fat containing mass in the right retroperitoneal space measuring 8.9 x 5.0 cm, similar in size since 2018. 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 Dictated by: Kiko Brown M.D. on 04/16/2023 at 8:16 Approved by: Kiko Brown M.D. on 04/16/2023 at 8:20
--- NOTE | 2023-04-16 09:08 | PC.NURSE ---
Pt states he took his last dose of xaralto yesterday evening at 1999.
--- NOTE | 2023-04-16 09:29 | PC.NURSE ---
Patient laying on left side with eyes closed trying to sleep. His O2 desats to 89% while asleep. Pt's spouse is going out to the car to retrieve his CPAP machine. Patient is alert and oriented, states he feels comfortable without a blanket, afebrile. He denies SOB.
--- NOTE | 2023-04-16 10:40 | PC.NURSE ---
Dr. Rivera at bedside discussing surgery and blood products with patient and his . Vitals as documented, see MAR for new orders. Consent forms signed in patient's chart.
--- NOTE | 2023-04-16 10:52 | P.CONS_ITS ---
History of Present Illness Consult details Date Patient Seen: 04/16/23 Time Patient Seen: 10:52 Chief complaint: abd pain Narrative: 78 year old man who has a history atrial fibrillation on chronic anticoagulation, obstructive sleep apnea who presents to the [facility] Emergency Department with 3 days severe upper abdominal pain. At admission temperature 102, normotensive, WBC [address] abdomen pelvis demonstrates thick walled gallbladder with pericholecystic fluid and gallstones. Total bilirubin 3.3, AST 450 ALT 200. MRCP ruled out choledocholithiasis. Prior abdominal surgery is umbilical hernia repair with mesh. Xarelto last taken 8:00 p.m. yesterday evening. Meds Home Medications and Allergies Home Medications Medication Instructions Recorded Confirmed Type atorvastatin 10 mg tablet 20 mg PO QPM 02/05/18 04/16/23 History bupropion HCl 150 mg 24 hr tablet, 150 mg PO DAILY 02/05/18 04/16/23 History extended release gabapentin 300 mg capsule 600 mg PO BEDTIME 02/05/18 04/16/23 History fluoxetine 20 mg capsule 20 mg PO DAILY 09/02/18 04/16/23 History vit C 250 mg-vit E 90 mg-zinc 40 1 tab PO BID 06/15/22 04/16/23 History mg-copper 1 [id number] capsule (PreserVision AREDS-2) rivaroxaban 20 mg tablet (Xarelto) 20 mg PO QPM #30 tabs 06/19/22 04/16/23 Rx amlodipine 2.5 mg tablet 2.5 mg PO DAILY 07/09/22 04/16/23 History metoprolol succinate 50 mg 25 mg PO QAM 07/09/22 04/16/23 History tablet,extended release 24 hr tamsulosin 0.4 mg capsule See Rx Instructions .Route 07/23/22 04/16/23 Rx .COMPLEX #180 caps ascorbate calcium (vitamin C) PO 12/23/22 12/30/22 History cholecalciferol (vitamin D3) PO 12/23/22 12/30/22 History coenzyme Q10 [Ultra CoQ10] PO 12/23/22 12/30/22 History cyanocobalamin (vitamin B-12) PO 12/23/22 12/30/22 History Allergies Allergy/AdvReac Type Severity Reaction Status Date / Time No Known Drug Allergies Allergy Verified 12/30/22 13:46 Exam Vital Signs (past 8 hours): - 04/16/23 05:05 04/16/23 05:12 04/16/23 05:13 Temperature 102.1 F H Pulse Rate 80 85 85 Respiratory Rate 20 Blood Pressure 152/75 H Pulse Oximetry 95 95 Oxygen Delivery Method Room Air 04/16/23 05:13 04/16/23 05:30 04/16/23 05:31 Temperature 102.1 F H Pulse Rate 75 Respiratory Rate 15 Blood Pressure 152/75 H Pulse Oximetry 95 Oxygen Delivery Method 04/16/23 05:56 04/16/23 05:56 04/16/23 06:00 Temperature Pulse Rate 80 Respiratory Rate 20 Blood Pressure 150/67 H 139/65 Pulse Oximetry 94 Oxygen Delivery Method 04/16/23 06:00 04/16/23 06:30 04/16/23 07:00 Temperature Pulse Rate 80 81 80 Respiratory Rate 20 22 Blood Pressure Pulse Oximetry 93 94 94 Oxygen Delivery Method Room Air 04/16/23 08:10 04/16/23 08:10 04/16/23 08:30 Temperature Pulse Rate 75 Respiratory Rate Blood Pressure 120/56 L 122/58 L Pulse Oximetry 95 Oxygen Delivery Method 04/16/23 08:30 04/16/23 09:00 04/16/23 09:00 Temperature 98.3 F Pulse Rate 74 74 Respiratory Rate 32 H 29 H Blood Pressure Pulse Oximetry 92 91 Oxygen Delivery Method Room Air Room Air 04/16/23 09:14 04/16/23 09:14 04/16/23 09:23 Temperature Pulse Rate 73 74 Respiratory Rate 30 H 33 H Blood Pressure 104/60 Pulse Oximetry 94 91 Oxygen Delivery Method Room Air 04/16/23 09:23 04/16/23 09:25 04/16/23 09:25 Temperature Pulse Rate 76 Respiratory Rate 29 H Blood Pressure 101/57 L 108/64 Pulse Oximetry 92 Oxygen Delivery Method Room Air 04/16/23 09:30 04/16/23 09:30 04/16/23 10:00 Temperature Pulse Rate 73 Respiratory Rate 27 H Blood Pressure 108/59 L 107/58 L Pulse Oximetry 91 Oxygen Delivery Method Room Air 04/16/23 10:00 04/16/23 10:15 04/16/23 10:15 Temperature Pulse Rate 74 74 Respiratory Rate 24 28 H Blood Pressure 106/55 L Pulse Oximetry 93 93 Oxygen Delivery Method Room Air 04/16/23 10:30 04/16/23 10:30 Temperature Pulse Rate 75 Respiratory Rate 23 Blood Pressure 110/58 L Pulse Oximetry Oxygen Delivery Method Oxygen Delivery Method Room Air Narrative Exam Narrative: GENERAL: A well nourished, well developed adult, uncomfortable lying in stretcher. HEENT: Normocephalic, atraumatic. +scleral icterus CHEST: Rising symmetrically. No audible wheezes CARDIOVASCULAR: Warm and well perfused. Regular rate ABDOMEN: Positive Crouch sign EXTREMITIES: Normal tone and mild edema. NEUROLOGIC: Moving all extremities spontaneously. No gross motor deficits. Objective Labs 04/16/23 12:08 04/16/23 12:08 Labs: Laboratory Results - last 24 hr 04/16/23 04/16/23 04/16/23 05:05 05:20 05:25 WBC 13.3 H RBC 4.52 Hgb 13.7 Hct 40.9 L MCV 90.4 MCH 30.3 MCHC 33.5 RDW 19.8 H Plt Count 158 Neut % (Auto) 86.0 H Lymph % (Auto) 6.9 L [place] % (Auto) 6.7 Eos % (Auto) 0.0 L Baso % (Auto) 0.4 Neut # (Auto) 53888 H Lymph # (Auto) 900 L [place] # (Auto) 900 Eos # (Auto) 0 Baso # (Auto) 0 PT 41.6 H INR 3.6 H APTT 99 H* Sodium 134 L Potassium 3.8 Chloride 102 Carbon Dioxide 24 BUN 19 Creatinine 0.79 Estimated GFR > 60 BUN/Creatinine Ratio 24.1 H Glucose 139 H Lactate 1.2 Calcium 9.1 Total Bilirubin 3.3 H AST 449 H ALT 193 H Alkaline Phosphatase 181 H Total Protein 7.0 Albumin 3.7 Globulin 3.3 Albumin/Globulin Ratio 1.1 Lipase 62 Procalcitonin 0.30 Ur Bilirubin Confirm Positive H Urine RBC None seen Urine WBC None seen Ur Squamous Epith Cells None seen Urine Bacteria None seen Urine Mucus 1+ H Ur Culture Indicated? Cult not indicated Ethyl Alcohol < 10 SARS-CoV-2 (PCR) Negative PFSH Medical History Post-void dribbling Incomplete emptying of bladder Chronic anticoagulation Benign prostatic hyperplasia Lower urinary tract symptoms Male circumcision Hearing impaired Cyst in hand (~2019) Nephrolithiasis Syncope Ischemia Chronic low back pain Prediabetes History of colon polyps Diverticulosis Osteoarthritis Anxiety Sinus congestion Atrophic gastritis Dizziness Psoriatic arthropathy RLS (restless legs syndrome) Erectile dysfunction Testosterone deficiency Vitamin D deficiency Depression Insomnia Hydronephrosis Alcoholism Retroperitoneal mass Paroxysmal atrial flutter Paroxysmal atrial fibrillation Hyperlipidemia HTN (hypertension) YAIMA on CPAP Psoriatic arthritis Psoriasis Surgical History Hx of bilateral cataract extraction Hx of tonsillectomy History of ear, nose, and throat (ENT) surgery Hx of hernia repair History of surgery (05/20/22) 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 Mother Cancer Diabetes mellitus Brother No problems noted. Sister No problems noted. Social History marital status: number of children: 3 household members: spouse Tobacco & Substance Use Smoking Status: Never smoker alcohol intake: current Assessment & Plan Assessment and plan (1) Acute cholecystitis: Status: Acute Assessment & Plan narrative: 78-year-old man on chronic anticoagulation for atrial fibrillation, obstructive sleep apnea with acute cholecystitis. Imaging and laboratory studies personally reviewed. Demonstrates acute cholecystitis with cholelithiasis. At admission febrile to 102 severe abdominal tenderness and WBC 17. Discussed care with hospitalist there is a concern that his health may deteriorate without prompt removal of his gallbladder. We can move forward with cholecystectomy this afternoon but he will need PCC for reversal of Xarelto as a last dose was 2 half lives ago. Overview of the operation was discussed. Operative risks including hemorrhage particularly in the setting of anticoagulation, infection, damage to surrounding structures, biliary injury and potential for conversion to open operation were discussed. His questions have been answered and he is in agreement with this plan. He provides his written and verbal consent to proceed.
[2023-04-16] MEDS: SODIUM CHLORIDE 0.9% 500 ML 1000 ML IV (10:56)
[2023-04-16] MEDS: PROTHROMBIN CPLX(PCC)4FACT 2,000 UNIT in ISOOSMOTIC VEHICLE 0 ML 767.477 UNIT IV (11:37)
[2023-04-16 12:22] LABS: Add Manual Diff / Slide Review NO; Basophils Absolute Auto 0 /uL (0-100); Basophils Percent Auto 0.3 % (0-2); Eosinophils Absolute Auto 0 /uL (0-450); Hematocrit 37.5 % (41-53); Hemoglobin 12.5 g/dL (13.5-17.5); Lymphocytes Absolute Auto 1100 /uL (1100-4500); Lymphocytes Percent Auto 6.2 % (25-40); Mean Corpuscular HGB Conc 33.3 % (30-36); Mean Corpuscular Hemoglobin 30.1 PG (26-34); Mean Corpuscular Volume 90.5 fL (80-100); Monocytes Absolute Auto 1300 /uL (0-900); Monocytes Percent Auto 7.7 % (3-14); Neutrophils Absolute Auto 14500 /uL (1500-7000); Neutrophils Percent Auto 85.8 % (50-75); Platelet Count 143 X10^3/uL (150-400); Red Blood Cell Count 4.14 X10^6/uL (4.5-5.9); Red Cell Distribution Width 18.4 % (11.6-14.8); White Blood Cell Count 16.9 X10^3/uL (4.5-11.0)
[2023-04-16 12:39] LABS: Alanine Aminotransferase 305 IU/L (<50); Albumin 3.3 g/dL (3.5-5.0); Alkaline Phosphatase 201 U/L (38-126); Aspartate Aminotransferase 501 IU/L (17-59); BUN Creatinine Ratio 21.5 (6-22); Bilirubin Total 4.8 mg/dL (0.2-1.3); Blood Urea Nitrogen 20 mg/dL (9-20); Calcium 8.5 mg/dL (8.4-10.2); Carbon Dioxide 25 mmol/L (22-32); Chloride 102 mmol/L (98-107); Estimated Glomerular Filt Rate > 60 mL/min (>60); Globulin 3.2 g/dL (1.7-4.1); Glucose 115 mg/dL (80-110); HEMOLYSIS 33 (0-50); Magnesium 1.7 mg/dL (1.6-2.3); Potassium 3.7 mmol/L (3.4-5.1); Sodium 134 mmol/L (137-145); Total Protein 6.5 g/dL (6.3-8.2)
[2023-04-16 12:48] LABS: Troponin I 0.022 ng/mL (0.01-0.034)
[2023-04-16] MEDS: LACTATED RINGERS 1,000 ML 42 ML IV (13:13)
[2023-04-16] MEDS: CEFAZOLIN 2 GM/100 ML PREMIX 100 ML IV (13:30)
--- NOTE | 2023-04-16 13:42 | P.HP_ITS ---
History of Present Illness History of Present Illness Date Patient Seen: 04/16/23 Time Patient Seen: 11:00 Chief complaint: abd pain Narrative: Krunal Mahmood is a 77-year-old male on Xarelto for atrial fibrillation, essential hypertension, sleep apnea with CPAP, psoriasis, hyperlipidemia, and obesity who presented with abdominal pain for the past two days. He reports it is midepigastric to RUQ in location, with some radiation into his sternal area. It feels more of a cramping sensation, but difficult to describe. There was some improvement the following morning, but reports he tried some soup last night with worsening again. He denies fever or chills. He has no recent dyspnea on exertion or LE edema and no recent chest pain. Vitals were notable in the ER for a fever to 102 F. MAP was borderline at 71. Labs notable for leukocytosis, thrombocytopenia, elevated INR at 3.6. Chemistries notable for elevations in bilirubin AST and ALT. Troponin was 0.022. Procalcitonin was 0.30. CT scan showed cholecystitis with retroperitoneal mass. 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 Discussed management with surgery given current sepsis for risk and benefit discussion of bleeding vs sepsis risk given lack of ability for cholecystostomy tube. Plan for catarino this afternoon, will give PCC prior to OR given current xarelto use. [facility] Medical History Post-void dribbling Incomplete emptying of bladder Chronic anticoagulation Benign prostatic hyperplasia Lower urinary tract symptoms Male circumcision Hearing impaired Cyst in hand (~2019) Nephrolithiasis Syncope Ischemia Chronic low back pain Prediabetes History of colon polyps Diverticulosis Osteoarthritis Anxiety Sinus congestion Atrophic gastritis Dizziness Psoriatic arthropathy RLS (restless legs syndrome) Erectile dysfunction Testosterone deficiency Vitamin D deficiency Depression Insomnia Hydronephrosis Alcoholism Retroperitoneal mass Paroxysmal atrial flutter Paroxysmal atrial fibrillation Hyperlipidemia HTN (hypertension) YAIMA on CPAP Psoriatic arthritis Psoriasis Surgical History Hx of bilateral cataract extraction Hx of tonsillectomy History of ear, nose, and throat (ENT) surgery Hx of hernia repair History of surgery (05/20/22) 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 Mother Cancer Diabetes mellitus Brother No problems noted. Sister No problems noted. Social History marital status: number of children: 3 household members: spouse Smoking Status: Never smoker alcohol intake: current Meds Home Medications and Allergies Home Medications Medication Instructions Recorded Confirmed Type atorvastatin 10 mg tablet 20 mg PO QPM 02/05/18 04/16/23 History bupropion HCl 150 mg 24 hr tablet, 150 mg PO DAILY 02/05/18 04/16/23 History extended release gabapentin 300 mg capsule 600 mg PO BEDTIME 02/05/18 04/16/23 History fluoxetine 20 mg capsule 20 mg PO DAILY 09/02/18 04/16/23 History vit C 250 mg-vit E 90 mg-zinc 40 1 tab PO BID 06/15/22 04/16/23 History mg-copper 1 [id number] capsule (PreserVision AREDS-2) rivaroxaban 20 mg tablet (Xarelto) 20 mg PO QPM #30 tabs 06/19/22 04/16/23 Rx amlodipine 2.5 mg tablet 2.5 mg PO DAILY 07/09/22 04/16/23 History metoprolol succinate 50 mg 25 mg PO QAM 07/09/22 04/16/23 History tablet,extended release 24 hr tamsulosin 0.4 mg capsule See Rx Instructions .Route 07/23/22 04/16/23 Rx .COMPLEX #180 caps ascorbate calcium (vitamin C) PO 12/23/22 12/30/22 History cholecalciferol (vitamin D3) PO 12/23/22 12/30/22 History coenzyme Q10 [Ultra CoQ10] PO 12/23/22 12/30/22 History cyanocobalamin (vitamin B-12) PO 12/23/22 12/30/22 History Allergies Allergy/AdvReac Type Severity Reaction Status Date / Time No Known Drug Allergies Allergy Verified 12/30/22 13:46 Review of Systems Review of Systems Narrative: All other systems reviewed with the patient and are negative unless otherwise stated. Exam Vital Signs (past 8 hours): - 04/16/23 05:56 04/16/23 05:56 04/16/23 06:00 Temperature Pulse Rate 80 Respiratory Rate 20 Blood Pressure 150/67 H 139/65 Pulse Oximetry 94 Oxygen Delivery Method Oxygen Flow Rate 04/16/23 06:00 04/16/23 06:30 04/16/23 07:00 Temperature Pulse Rate 80 81 80 Respiratory Rate 20 22 Blood Pressure Pulse Oximetry 93 94 94 Oxygen Delivery Method Room Air Oxygen Flow Rate 04/16/23 08:10 04/16/23 08:10 04/16/23 08:30 Temperature Pulse Rate 75 Respiratory Rate Blood Pressure 120/56 L 122/58 L Pulse Oximetry 95 Oxygen Delivery Method Oxygen Flow Rate 04/16/23 08:30 04/16/23 09:00 04/16/23 09:00 Temperature 98.3 F Pulse Rate 74 74 Respiratory Rate 32 H 29 H Blood Pressure Pulse Oximetry 92 91 Oxygen Delivery Method Room Air Room Air Oxygen Flow Rate 04/16/23 09:14 04/16/23 09:14 04/16/23 09:23 Temperature Pulse Rate 73 74 Respiratory Rate 30 H 33 H Blood Pressure 104/60 Pulse Oximetry 94 91 Oxygen Delivery Method Room Air Oxygen Flow Rate 04/16/23 09:23 04/16/23 09:25 04/16/23 09:25 Temperature Pulse Rate 76 Respiratory Rate 29 H Blood Pressure 101/57 L 108/64 Pulse Oximetry 92 Oxygen Delivery Method Room Air Oxygen Flow Rate 04/16/23 09:30 04/16/23 09:30 04/16/23 09:33 Temperature Pulse Rate 73 Respiratory Rate 27 H Blood Pressure 108/59 L Pulse Oximetry 91 Oxygen Delivery Method Room Air Room Air Oxygen Flow Rate 04/16/23 10:00 04/16/23 10:00 04/16/23 10:15 Temperature Pulse Rate 74 Respiratory Rate 24 Blood Pressure 107/58 L 106/55 L Pulse Oximetry 93 Oxygen Delivery Method Oxygen Flow Rate 04/16/23 10:15 04/16/23 10:30 04/16/23 10:30 Temperature Pulse Rate 74 75 Respiratory Rate 28 H 23 Blood Pressure 110/58 L Pulse Oximetry 93 Oxygen Delivery Method Room Air Oxygen Flow Rate 04/16/23 10:35 04/16/23 11:31 04/16/23 11:50 Temperature 98.6 F Pulse Rate 75 Respiratory Rate 14 16 Blood Pressure 106/89 109/59 L Pulse Oximetry 99 95 96 Oxygen Delivery Method Room Air Room Air Oxygen Flow Rate 0 04/16/23 12:52 Temperature 99.1 F Pulse Rate 69 Respiratory Rate 16 Blood Pressure 103/55 L Pulse Oximetry 94 Oxygen Delivery Method Room Air Oxygen Flow Rate Oxygen Delivery Method Room Air Oxygen Flow Rate 0 Narrative Exam Narrative: General:? Patient is well developed and well nourished, in no distress at this time. HEENT:? Normocephalic, atraumatic, extraocular muscles intact, oral pharynx is clear and mucous membranes are moist. Neck: supple and symmetric, trachea is midline, no cervical adenopathy. Negative for JVD Chest:? Normal AP diameter and contour without kyphoscoliosis, no tachypnea, equal chest rise bilaterally. Lungs:? CTA b/l no wheezing rhonchi or rales. Cardio:?RRR no m/r/g. Abdomen: soft, epigastric and RUQ tenderness, non-distended. Musculoskeletal:? Muscle strength and tone are equal within normal limits, no deformity. Extremities: No edema or joint effusions. No cyanosis or clubbing. Skin:? Pale,? Warm to touch,dry and intact without rashes, ulcerations or petechiae.? Neuro:? Alert and orientated x3,? sensation to touch intact in all extremities, no gross deficits noted of cranial nerves. Psych:? Patient has a well-kept appearance, appropriate affect, mental status attitude thought context and judgment are appropriate for age. Objective Labs 04/16/23 12:08 04/16/23 12:08 Labs: Laboratory Results - last 24 hr 04/16/23 04/16/23 04/16/23 05:05 05:20 05:25 WBC 13.3 H RBC 4.52 Hgb 13.7 Hct 40.9 L MCV 90.4 MCH 30.3 MCHC 33.5 RDW 19.8 H Plt Count 158 Neut % (Auto) 86.0 H Lymph % (Auto) 6.9 L Hunt % (Auto) 6.7 Eos % (Auto) 0.0 L Baso % (Auto) 0.4 Neut # (Auto) 21809 H Lymph # (Auto) 900 L Hunt # (Auto) 900 Eos # (Auto) 0 Baso # (Auto) 0 PT 41.6 H INR 3.6 H APTT 99 H* Sodium 134 L Potassium 3.8 Chloride 102 Carbon Dioxide 24 BUN 19 Creatinine 0.79 Estimated GFR > 60 BUN/Creatinine Ratio 24.1 H Glucose 139 H Lactate 1.2 Calcium 9.1 Magnesium Total Bilirubin 3.3 H AST 449 H ALT 193 H Alkaline Phosphatase 181 H Troponin I Total Protein 7.0 Albumin 3.7 Globulin 3.3 Albumin/Globulin Ratio 1.1 Lipase 62 Procalcitonin 0.30 Ur Bilirubin Confirm Positive H Urine RBC None seen Urine WBC None seen Ur Squamous Epith Cells None seen Urine Bacteria None seen Urine Mucus 1+ H Ur Culture Indicated? Cult not indicated Ethyl Alcohol < 10 SARS-CoV-2 (PCR) Negative 04/16/23 12:08 WBC 16.9 H RBC 4.14 L Hgb 12.5 L Hct 37.5 L MCV 90.5 MCH 30.1 MCHC 33.3 RDW 18.4 H Plt Count 143 L Neut % (Auto) 85.8 H Lymph % (Auto) 6.2 L Hunt % (Auto) 7.7 Eos % (Auto) 0.0 L Baso % (Auto) 0.3 Neut # (Auto) 59598 H Lymph # (Auto) 1100 Hunt # (Auto) 1300 H Eos # (Auto) 0 Baso # (Auto) 0 PT INR APTT Sodium 134 L Potassium 3.7 Chloride 102 Carbon Dioxide 25 BUN 20 Creatinine 0.93 Estimated GFR > 60 BUN/Creatinine Ratio 21.5 Glucose 115 H Lactate Calcium 8.5 Magnesium 1.7 Total Bilirubin 4.8 H AST 501 H ALT 305 H Alkaline Phosphatase 201 H Troponin I 0.022 Total Protein 6.5 Albumin 3.3 L Globulin 3.2 Albumin/Globulin Ratio 1.0 Lipase Procalcitonin Ur Bilirubin Confirm Urine RBC Urine WBC Ur Squamous Epith Cells Urine Bacteria Urine Mucus Ur Culture Indicated? Ethyl Alcohol SARS-CoV-2 (PCR) Assessment & Plan Assessment & Plan narrative: Krunal Mahmood is a 77-year-old male on Xarelto for atrial fibrillation, essential hypertension, sleep apnea with CPAP, psoriasis, hyperlipidemia, and obesity admitted with sepsis secondary to acute cholecystitis 1. Sepsis secondary to acute cholecystitis with hyperbilirubinemia, thrombocytopenia and acute metabolic encephalopathy. - plan for OR today per discussion with general surgery. Medically appears optimized from a cardiac perspective, will give PCC prior to OR - continue zosyn for antibiotic therapy for cholecystitis. - continue IV fluids. - admit to ICU given fever of 102, downtrending BP with concern for worsening hypotension and worsening sepsis initially. - MR negative for choledocholithiasis, though labs suggestive of it. LFT elevations may be due to liver hypoperfusion in sepsis as well. 2. paroxysmal atrial fibrillation with chronic anticoagulation - INR 3.3 on admission, will order 2000 U 4 factor PCC prior to OR to help with bleeding risk. - hold home metoprolol initially, can resume after OR depending on BP post operatively. 3. HTN - will hold home medications in the setting of above sepsis. 4. YAIMA on CPAP - continue CPAP at night, RT evalation. 5. HLD - hold home statin given liver enzyme elevations 6. Obesity The patient is at much higher risk for medical and surgical complications because of their obesity. This increases the difficulty and complexity of medical and surgical interventions and increases the chances of poor outcomes such as morbidity and mortality. 7. BPH - continue flomax after OR Code: full, surrogate is patient's spouse DVT: resume xarelto when safe after surgery, for now SCDs Dispo: admit to ICU over concern for possible developing septic shock with BP drop in the ER. I spent 35 minutes providing critical care management this patient. This excludes time spent in performing separately billed procedures. I have utilized all available immediate resources to obtain, update, or review the patient's current medications. COVID-19 COVID-19 status: Negative Quality VTE Deep Vein Thrombosis/Pulmonary Embolism Present on Admission: No MIPS - Admit I confirm the patient?s Advance Care Plan is present, Code status is documented, Surrogate decision maker is in patient?s record [If Yes, STOP here]: Yes
[2023-04-16] MEDS: BUPIVACAINE 0.25% (PF) VIAL 30 ML INJ (14:17)
[2023-04-16 14:42] LABS: MRSA (Nasal) PCR Not Detected (Not Detect)
--- NOTE | 2023-04-16 15:25 | PM.OP.1 ---
Operative Date/Time/Diagnoses Date of procedure: 04/16/23 Time of procedure: 16:55 Pre-op diagnosis: Acute cholecystitis Post-op diagnosis: same Procedure & Clinicians Procedure: Laparoscopic cholecystectomy Same procedure as scheduled: Yes Indications: 78-year-old man who presented to [facility] Emergency Department with several days of severe upper abdominal pain and radiographic findings consistent with acute cholecystitis. Following discussion of risks benefits and alternatives he elected to proceed with laparoscopic cholecystectomy. Surgeon: Adonay Rivera Anesthesia Type: General Operative Notes Findings: Gangrenous gallbladder. With grasping the wall of gallbladder tore in several places. Specimen(s): other (Gallbladder) Estimated Blood Loss (mL): 100 Procedure in detail: Patient was identified in the preoperative area. Written and verbal consent were obtained. He is brought to the operating room placed supine on the table. Bilateral lower extremity compression devices were applied. He received Ancef prior to skin incision. General anesthesia was induced he was intubated with an endotracheal tube. He was then prepped and draped in sterile fashion. Time-out was performed. We began with a supraumbilical incision to avoid his umbilical mesh. The abdomen was entered atraumatically. Pneumo peritoneum was established. Additional 5 mm working ports were placed in the right upper quadrant and an 11 mm port high in the epigastric. The gallbladder was gangrenous and tensely distended. It was percutaneously aspirated. The gallbladder was grasped by the fundus and retracted over the liver and retracted laterally by the infundibulum. The gallbladder was mobilized and the bottom of the cystic plate was visualized. The hepatocystic triangle was meticulosly skeletonized with blunt dissection of fat and fibrous tissue from both the front and the back. Only two structures were then clearly seen entering the gallbladder the cystic duct and the cystic artery. With the critical view of safety fully established the cystic duct was clipped twice proximally and once distally using the 10 mm Weck hemoclip applied under direct visualization and then sharply divided. The cystic artery was divided in the same fashion. The gallbladder was removed from the liver bed using electro cautery. The liver bed was then inspected for hemostasis and this was achieved. The abdomen was irrigated with sterile saline and inspection was made that showed the clips in good position. A 19 [place] drain was placed in the gallbladder fossa. The specimen was removed using Endo-Catch. The abdomen was desufflated. The umbilical fascia was closed with 0 Vicryl in a [id number] fashion under direct visualization. Skin incisions were irrigated and closed with 4-0 Monocryl. 30 ml of 0.25% bupivacaine was infiltrated into the subcutaneous tissue of the incisions. The wounds were sealed with Dermabond. Patient emerged from anesthesia was extubated and transferred to recovery in stable condition. The sponge and instrument count at the end of the operation was correct. Complications: none Post-operative Condition: stable Disposition: Acute Care
[2023-04-16] MEDS: PIPERACILLIN/TAZO 3.375 GM in SODIUM CHLORIDE 0.9% 100 ML IV ×2 (15:47→23:49)
[2023-04-16] MEDS: GABAPENTIN 300 MG CAPSULE 600 MG PO (16:04)
[2023-04-16] MEDS: OXYCODONE IR 5 MG TABLET PO (16:07)
--- NOTE | 2023-04-16 18:44 | PC.NURSE ---
1535 - Received from PACU. O2 91% on RA, lungs clear, placed on 2L NC, incentive spirometer education given and placed at bedside. No complaints of pain or nausea. Scant drainage around ABDIEL drain, none at lap. sites
[2023-04-16] MEDS: VIT C/E/ZN/COPPR/LUTEIN/ZEAXAN CAPSULE 1 CAP PO (20:59)
--- NOTE | 2023-04-16 21:25 | PC.NURSE ---
Addendum entered by Katty Chang R.N. 04/16/23 21:43: 0945-Order recieved and po med given per order. Will monitor. Original Note: 2123- Patient has not voided since return from [facility] at 1600hr. No uop documented in Surgical notes. Bladder scan reveals 336ml. notified await orders. Will monitor.
[2023-04-16] MEDS: TAMSULOSIN 0.4 MG CAPSULE 0.8 MG PO (21:38)
[2023-04-16 23:12] LABS: Acinetobacter calcoa-baumannii Not Detected (Not Detect); Bacteroides fragilis Not Detected (Not Detect); CTX-M Resistance Not Detected (Not Detect); Candida albicans Not Detected (Not Detect); Candida auris Not Detected (Not Detect); Candida glabrata Not Detected (Not Detect); Candida krusei Not Detected (Not Detect); Candida parapsilosis Not Detected (Not Detect); Candida tropicalis Not Detected (Not Detect); Cryptococcus neoformans/gatti Not Detected (Not Detect); Enterobacter cloacae complex Not Detected (Not Detect); Enterobacterales Detected (Not Detect); Enterococcus faecalis Not Detected (Not Detect); Enterococcus faecium Not Detected (Not Detect); Haemophilus influenzae Not Detected (Not Detect); IMP Resistance Not Detected (Not Detect); KPC Resistance Not Detected (Not Detect); Klebsiella aerogenes Not Detected (Not Detect); Listeria monocytogenes Not Detected (Not Detect); NDM Resistance Not Detected (Not Detect); Neisseria meningitidis Not Detected (Not Detect); OXA-48-like Resistance Not Detected (Not Detect); Proteus species Not Detected (Not Detect); Pseudomonas aeruginosa Not Detected (Not Detect); Salmonella species Not Detected (Not Detect); Serratia marcescens Not Detected (Not Detect); Staphylococcus epidermidis Not Detected (Not Detect); Staphylococcus lugdunensis Not Detected (Not Detect); Staphylococcus species Not Detected (Not Detect); Stenotrophomonas maltophilia Not Detected (Not Detect); Streptococcus agalactiae (Gr B Not Detected (Not Detect); Streptococcus pneumonia Not Detected (Not Detect); Streptococcus pyogenes (Gr A) Not Detected (Not Detect); Streptococcus species Not Detected (Not Detect); VIM Resistance Not Detected (Not Detect); mcr-1 Resistance Not Detected (Not Detect)
[2023-04-17] VITALS (57 sets, daily range): BP systolic 92–125; BP diastolic 52–62; PULSE 53–78; RESP 9–54; TEMP 36.1–37.2; O2SAT 15–97
[2023-04-17] MEDS: SODIUM CHLORIDE 0.9% 1,000 ML 100 ML IV ×3 (01:46→22:51)
[2023-04-17] MEDS: OXYCODONE IR 5 MG TABLET PO ×3 (02:01→14:18)
[2023-04-17] MEDS: PIPERACILLIN/TAZO 3.375 GM in SODIUM CHLORIDE 0.9% 100 ML IV ×3 (08:32→23:58)
[2023-04-17] MEDS: FLUoxetine 20 MG CAPSULE PO (08:33)
[2023-04-17] MEDS: VIT C/E/ZN/COPPR/LUTEIN/ZEAXAN CAPSULE 1 CAP PO ×2 (08:33→21:07)
[2023-04-17] MEDS: buPROPion XL 150 MG TAB PO (08:33)
[2023-04-17 09:37] LABS: Add Manual Diff / Slide Review NO; Basophils Absolute Auto 0 /uL (0-100); Basophils Percent Auto 0.2 % (0-2); Eosinophils Absolute Auto 0 /uL (0-450); Eosinophils Percent Auto 0.1 % (2-4); Hematocrit 36.6 % (41-53); Hemoglobin 12.1 g/dL (13.5-17.5); Lymphocytes Absolute Auto 500 /uL (1100-4500); Lymphocytes Percent Auto 2.9 % (25-40); Mean Corpuscular Hemoglobin 29.9 PG (26-34); Mean Corpuscular Volume 90.4 fL (80-100); Monocytes Absolute Auto 700 /uL (0-900); Monocytes Percent Auto 4.3 % (3-14); Neutrophils Absolute Auto 15700 /uL (1500-7000); Neutrophils Percent Auto 92.5 % (50-75); Platelet Count 145 X10^3/uL (150-400); Red Blood Cell Count 4.05 X10^6/uL (4.5-5.9); Red Cell Distribution Width 19.3 % (11.6-14.8); White Blood Cell Count 16.9 X10^3/uL (4.5-11.0)
[2023-04-17 09:49] LABS: Alanine Aminotransferase 279 IU/L (<50); Albumin 3.3 g/dL (3.5-5.0); Alkaline Phosphatase 204 U/L (38-126); Aspartate Aminotransferase 368 IU/L (17-59); BUN Creatinine Ratio 22.6 (6-22); Bilirubin Total 4.7 mg/dL (0.2-1.3); Blood Urea Nitrogen 19 mg/dL (9-20); Calcium 8.3 mg/dL (8.4-10.2); Carbon Dioxide 27 mmol/L (22-32); Chloride 103 mmol/L (98-107); Estimated Glomerular Filt Rate > 60 mL/min (>60); Globulin 3.2 g/dL (1.7-4.1); Glucose 176 mg/dL (80-110); HEMOLYSIS < 15 (0-50); Potassium 3.8 mmol/L (3.4-5.1); Sodium 136 mmol/L (137-145); Total Protein 6.5 g/dL (6.3-8.2)
--- NOTE | 2023-04-17 12:59 | PC.NURSE ---
Addendum entered by Judy Ann R.N. 04/17/23 18:39: Pt also stated that pain has gradually continued to increase throughout the day. Provider gave orders for 10mg oxy PRN Q3H and mirilax due to RN concerns. Pt resting comfortably, VSS. Addendum entered by Judy Ann R.N. 04/17/23 17:38: Discussed pain control options with the patient and patient may have better pain control through the night with a higher dose of oxycodone PRN. Voiced these concerns to the surgical provider. Pt's pain currently controlled without too much movement but states the pain becomes higher with coughing and moving. Original Note: Thoroughly reviewed medications with patient. Patient did not know doses of all medications so RN used recent pharmacy refills combined with what patient could recall. Medication reconciliation done to the best of RN/patient ability with information that was available. RN frequently checking ABDIEL drain, emptying, and assessing abdominal bandage. An old area of drainage was outlined this am and new drainage has not appeared. ABDIEL has sanguineous drainage.
--- NOTE | 2023-04-17 14:07 | P.PN_ITS ---
Subjective Subjective Interval history: 78M admitted with sepsis secondary to acute cholecystitis. Blood cultures are positive for E. coli. remains on antibiotics today. Has some incisional pain today but overall better. ABDIEL with sanguinous output. Tbili stable and liver enzymes improved. Exam Vital Signs (past 8 hours): - 04/17/23 06:30 04/17/23 07:00 04/17/23 07:00 Temperature Pulse Rate 56 L 54 L Respiratory Rate 12 20 Blood Pressure Pulse Oximetry 95 95 Oxygen Delivery Method Room Air CPAP 04/17/23 07:30 04/17/23 07:56 04/17/23 07:56 Temperature Pulse Rate 56 L 65 Respiratory Rate 17 24 Blood Pressure 106/59 L Pulse Oximetry 96 95 Oxygen Delivery Method 04/17/23 07:59 04/17/23 08:00 04/17/23 08:38 Temperature 97.0 F L Pulse Rate 66 62 Respiratory Rate 21 20 Blood Pressure Pulse Oximetry 95 95 Oxygen Delivery Method 04/17/23 09:09 04/17/23 09:30 04/17/23 10:00 Temperature Pulse Rate 69 64 Respiratory Rate 27 H Blood Pressure Pulse Oximetry 93 96 95 Oxygen Delivery Method Room Air 04/17/23 10:00 04/17/23 10:30 04/17/23 11:00 Temperature Pulse Rate 65 66 64 Respiratory Rate 27 H 24 23 Blood Pressure Pulse Oximetry 96 97 96 Oxygen Delivery Method 04/17/23 11:30 04/17/23 11:30 04/17/23 11:32 Temperature Pulse Rate 62 63 Respiratory Rate 27 H 21 Blood Pressure 92/55 L Pulse Oximetry 95 95 Oxygen Delivery Method 04/17/23 11:32 Temperature Pulse Rate Respiratory Rate Blood Pressure 115/61 Pulse Oximetry Oxygen Delivery Method Oxygen Delivery Method Room Air Oxygen Flow Rate 2 Narrative Exam Narrative: General:? Patient is well developed and well nourished, in no distress at this time. HEENT:? Normocephalic, atraumatic, extraocular muscles intact, oral pharynx is clear and mucous membranes are moist. Neck: supple and symmetric, trachea is midline, no cervical adenopathy. Negative for JVD Chest:? Normal AP diameter and contour without kyphoscoliosis, no tachypnea, equal chest rise bilaterally. Lungs:? CTA b/l no wheezing rhonchi or rales. Cardio:?RRR no m/r/g. Abdomen: soft, appropriately tender near incisions, dressing with some drainage, ABDIEL drain with sanguinous drainage. Musculoskeletal:? Muscle strength and tone are equal within normal limits, no deformity. Extremities: No edema or joint effusions. No cyanosis or clubbing. Skin:? Pale,? Warm to touch,dry and intact without rashes, ulcerations or petechiae.? Neuro:? Alert and orientated x3,? sensation to touch intact in all extremities, no gross deficits noted of cranial nerves. Psych:? Patient has a well-kept appearance, appropriate affect, mental status attitude thought context and judgment are appropriate for age. Objective Labs 04/17/23 09:25 04/17/23 09:25 Labs: Laboratory Results - last 24 hr 04/16/23 04/16/23 04/17/23 05:55 12:00 09:25 WBC 16.9 H RBC 4.05 L Hgb 12.1 L Hct 36.6 L MCV 90.4 MCH 29.9 MCHC 33.0 RDW 19.3 H Plt Count 145 L Neut % (Auto) 92.5 H Lymph % (Auto) 2.[address] [place] % (Auto) 4.3 Eos % (Auto) 0.1 L Baso % (Auto) 0.2 Neut # (Auto) 35912 H Lymph # (Auto) [address] [place] # (Auto) 700 Eos # (Auto) 0 Baso # (Auto) 0 Sodium 136 L Potassium 3.8 Chloride 103 Carbon Dioxide 27 BUN 19 Creatinine 0.84 Estimated GFR > 60 BUN/Creatinine Ratio 22.6 H Glucose 176 H Calcium 8.3 L Magnesium 2.0 Total Bilirubin 4.7 H AST 368 H ALT 279 H Alkaline Phosphatase 204 H Total Protein 6.5 Albumin 3.3 L Globulin 3.2 Albumin/Globulin Ratio 1.0 Nasal Screen MRSA (PCR) Not detected A.calcoaceticus-baumannii cmplx PCR Not detected Bacteroides fragilis Not detected Didi albicans (PCR) Not detected Ddii auris (PCR) Not detected C. glabrata (PCR) Not detected C. krusei (PCR) Not detected C. parapsilosis (PCR) Not detected C. tropicalis (PCR) Not detected C. neoform/gattii (PCR) Not detected Enterobacterales (PCR) Detected E. cloacae complex PCR Not detected Enterococc faecalis PCR Not detected Enterococc faecium PCR Not detected E. coli (PCR) Detected H. influenzae (PCR) Not detected Klebsiella aerogenes (PCR) Not detected Klebsiella oxytoca PCR Not detected Klebsiella pneumoniae Not detected List. monocytogenes PCR Not detected N. meningitidis (PCR) Not detected Proteus species (PCR) Not detected Salmonella spp. (PCR) Not detected Serratia marcescens PCR Not detected Staphylococcus sp PCR Not detected Staph aureus (PCR) Not detected mecA/C & MREJ Resist Gene Not applicable mecA/C-Methicil Resis Gene Not applicable mcr-1 Colistin Res Gene PCR Not detected Staph epidermidis (PCR) Not detected Staph lugdunensis PCR Not detected S. maltophilia (PCR) Not detected Streptococcus sp PCR Not detected Group A Strep (PCR) Not detected Strep agalactiae (PCR) Not detected Strep pneumoniae (PCR) Not detected P. aeruginosa (PCR) Not detected Julee/B-Vanco Res Genes Not applicable blaIMP Car res Gene PCR Not detected KPC-Carbap Res Gene PCR Not detected blaNDM Car Res Gene PCR Not detected OXA-48 Carbapenem Resis Gene (PCR) Not detected blaVIM Car Res Gene PCR Not detected CTX-M Gene Resistance (PCR) Not detected PFSH Medical History Post-void dribbling Incomplete emptying of bladder Chronic anticoagulation Benign prostatic hyperplasia Lower urinary tract symptoms Male circumcision Hearing impaired Cyst in hand (~2019) Nephrolithiasis Syncope Ischemia Chronic low back pain Prediabetes History of colon polyps Diverticulosis Osteoarthritis Anxiety Sinus congestion Atrophic gastritis Dizziness Psoriatic arthropathy RLS (restless legs syndrome) Erectile dysfunction Testosterone deficiency Vitamin D deficiency Depression Insomnia Hydronephrosis Alcoholism Retroperitoneal mass Paroxysmal atrial flutter Paroxysmal atrial fibrillation Hyperlipidemia HTN (hypertension) YAIMA on CPAP Psoriatic arthritis Psoriasis Surgical History Hx of bilateral cataract extraction Hx of tonsillectomy History of ear, nose, and throat (ENT) surgery Hx of hernia repair History of surgery (05/20/22) 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 Mother Cancer Diabetes mellitus Brother No problems noted. Sister No problems noted. Social History marital status: number of children: 3 household members: spouse Smoking Status: Never smoker alcohol intake: current Assessment & Plan Assessment & Plan narrative: Krunal Mahmood is a 77-year-old male on Xarelto for atrial fibrillation, essential hypertension, sleep apnea with CPAP, psoriasis, hyperlipidemia, and obesity admitted with sepsis secondary to acute cholecystitis 1. Sepsis secondary to acute cholecystitis and E. coli bacteremia with hyperbilirubinemia, thrombocytopenia and acute metabolic encephalopathy. - now POD #1 s/p lap catarino with surgery, notable for gangrenous gallbladder. - continue zosyn for antibiotic therapy for cholecystitis. Blood cultures positive for E. coli, pending sensitivities prior to narrowing therapy. - continue IV fluids today. - MR negative for choledocholithiasis, though labs suggestive of it. LFT elevations may be due to liver hypoperfusion in sepsis as well. Improving today. 2. paroxysmal atrial fibrillation with chronic anticoagulation - INR 3.3 on admission, ordered 2000 U 4 factor PCC prior to OR to help with bleeding risk. - continue to hold home metoprolol - okay to resume xarelto tomorrow after discussion with surgery 3. HTN - will hold home medications in the setting of above sepsis. 4. YAIMA on CPAP - continue CPAP at night, RT evalation. 5. HLD - hold home statin given liver enzyme elevations 6. Obesity The patient is at much higher risk for medical and surgical complications because of their obesity. This increases the difficulty and complexity of medical and surgical interventions and increases the chances of poor outcomes such as morbidity and mortality. 7. BPH - continue flomax Code: full, surrogate is patient's spouse DVT: resume xarelto when safe after surgery, for now SCDs Dispo: stable for floor care today. Likely home in a couple of days. I have utilized all available immediate resources to obtain, update, or review the patient's current medications. COVID-19 COVID-19 status: Negative Quality VTE Deep Vein Thrombosis/Pulmonary Embolism Present on Admission: No
--- NOTE | 2023-04-17 15:31 | CM.DANOTE ---
Initial DCP Assessment Note Pt is an 78 yo male, resident of [place], now s/p lap catarino, notes indicate gangrene gall bladder. Patient also with E. coli bacteremia and metabolic encephalopathy. PCP: Kavita Aranda Payer: [employer] Reviewed chart, patient discussed with TONE ARTIST APPRENTICE. Patient is disoriented today, supportive spouse has been in/out of the room. Initial assessment completed with information available on the chart. Patient indp at his base and expected to discharge home w/spouse when medically stable, likely not for another 24-48 hrs. Patient may benefit from HH upon discharge depending on medical plan of care. Patient has a ABDIEL drain and may need to discharge with this. CM team will plan to follow closely in case any DC needs or concerns arise. plan to review DCP with patient and spouse. DAVID Chan Discharge Planning/Care Management CM Discharge Assessment Start: 04/17/23 15:28 Freq: Status: Active Protocol: Document 04/17/23 15:28 BELEM (Rec: 04/17/23 15:31 [id number]) Discharge Planning Assessment Assigned Automation Engineering Manager DAVID Slaughter DPOA/Assigned Designee Name Mayra Mahmood, spouse Contact Information [phone] Advance Directives? Yes: Advance Directive Advance Directives on File Yes History Provided By Patient,Family Member,Medical Record Prior Living Arrangements House Household Members spouse Type of transporation used prior to Relies on Others admit Independent with ADL's Yes Is patient alert and oriented? Yes Patient/Family Preference Home with Home Health Barriers to Discharge No Comment Home w/spouse expected, may benefit from HH Discharge Plan Home Transportation Arrangement Spouse or adult Dtr to transport If patient plan is home with home health Yes : Has signed face to face form been completed?
[2023-04-17] MEDS: OXYCODONE IR 10 MG TABLET PO ×2 (18:29→21:06)
[2023-04-17] MEDS: GABAPENTIN 300 MG CAPSULE 600 MG PO (21:07)
[2023-04-17] MEDS: TAMSULOSIN 0.4 MG CAPSULE 0.8 MG PO (21:07)
[2023-04-18] VITALS (41 sets, daily range): BP systolic 124–155; BP diastolic 56–72; PULSE 53–72; RESP 13–44; TEMP 36.3–36.8; O2SAT 91–95
[2023-04-18 06:13] LABS: Add Manual Diff / Slide Review NO; Basophils Absolute Auto 100 /uL (0-100); Basophils Percent Auto 1.2 % (0-2); Eosinophils Absolute Auto 200 /uL (0-450); Eosinophils Percent Auto 2.2 % (2-4); Hematocrit 38.3 % (41-53); Hemoglobin 12.5 g/dL (13.5-17.5); Lymphocytes Absolute Auto 800 /uL (1100-4500); Lymphocytes Percent Auto 9.8 % (25-40); Mean Corpuscular HGB Conc 32.7 % (30-36); Mean Corpuscular Hemoglobin 29.9 PG (26-34); Mean Corpuscular Volume 91.3 fL (80-100); Monocytes Absolute Auto 800 /uL (0-900); Monocytes Percent Auto 9.6 % (3-14); Neutrophils Absolute Auto 6600 /uL (1500-7000); Neutrophils Percent Auto 77.2 % (50-75); Platelet Count 152 X10^3/uL (150-400); Red Blood Cell Count 4.19 X10^6/uL (4.5-5.9); Red Cell Distribution Width 19.1 % (11.6-14.8); White Blood Cell Count 8.5 X10^3/uL (4.5-11.0)
[2023-04-18 06:23] LABS: Alanine Aminotransferase 287 IU/L (<50); Albumin 3.2 g/dL (3.5-5.0); Albumin Globulin Ratio 0.9 (1.0-2.8); Alkaline Phosphatase 190 U/L (38-126); Aspartate Aminotransferase 280 IU/L (17-59); BUN Creatinine Ratio 17.6 (6-22); Bilirubin Total 2.8 mg/dL (0.2-1.3); Blood Urea Nitrogen 16 mg/dL (9-20); Carbon Dioxide 24 mmol/L (22-32); Chloride 106 mmol/L (98-107); Estimated Glomerular Filt Rate > 60 mL/min (>60); Globulin 3.4 g/dL (1.7-4.1); Glucose 113 mg/dL (80-110); HEMOLYSIS < 15 (0-50); Magnesium 2.1 mg/dL (1.6-2.3); Potassium 3.7 mmol/L (3.4-5.1); Sodium 137 mmol/L (137-145); Total Protein 6.6 g/dL (6.3-8.2)
[2023-04-18] MEDS: PIPERACILLIN/TAZO 3.375 GM in SODIUM CHLORIDE 0.9% 100 ML IV (08:44)
[2023-04-18] MEDS: buPROPion XL 150 MG TAB PO (08:54)
[2023-04-18] MEDS: polyethylene glycoL 3350 17 GM POWD.PACK PO (08:54)
[2023-04-18] MEDS: FLUoxetine 20 MG CAPSULE PO (08:54)
[2023-04-18] MEDS: VIT C/E/ZN/COPPR/LUTEIN/ZEAXAN CAPSULE 1 CAP PO ×2 (08:54→19:55)
[2023-04-18] MEDS: OXYCODONE IR 5 MG TABLET PO (09:24)
--- NOTE | 2023-04-18 10:02 | PM.PNPO.1 ---
Subjective Subjective Date Patient Seen: 04/18/23 Time Patient Seen: 10:02 Interval history: 78-year-old man postoperative day 2 status post laparoscopic cholecystectomy for gangrenous cholecystitis. Exam Vital Signs (past 8 hours): - 04/18/23 02:30 04/18/23 03:00 04/18/23 03:30 Temperature Pulse Rate 54 L 55 L 58 L Respiratory Rate 18 18 18 Blood Pressure Pulse Oximetry 94 92 94 Oxygen Delivery Method 04/18/23 04:00 04/18/23 04:30 04/18/23 04:57 Temperature Pulse Rate 59 L 53 L Respiratory Rate 19 13 Blood Pressure 130/60 Pulse Oximetry 95 93 Oxygen Delivery Method 04/18/23 04:57 04/18/23 05:00 04/18/23 05:05 Temperature 97.3 F L Pulse Rate 53 L 54 L 55 L Respiratory Rate 18 15 21 Blood Pressure 130/60 Pulse Oximetry 93 95 95 Oxygen Delivery Method 04/18/23 05:30 04/18/23 06:00 04/18/23 06:00 Temperature Pulse Rate 55 L 56 L Respiratory Rate 18 16 Blood Pressure Pulse Oximetry 94 94 95 Oxygen Delivery Method CPAP 04/18/23 06:30 04/18/23 07:00 04/18/23 07:30 Temperature Pulse Rate 54 L 53 L 55 L Respiratory Rate 15 18 21 Blood Pressure Pulse Oximetry 95 94 94 Oxygen Delivery Method 04/18/23 07:53 04/18/23 07:53 04/18/23 08:00 Temperature 98.0 F Pulse Rate 54 L 55 L Respiratory Rate 20 17 Blood Pressure 141/60 H Pulse Oximetry 94 94 Oxygen Delivery Method Oxygen Delivery Method CPAP Oxygen Flow Rate 2 Narrative Exam Narrative: General adult man alert oriented no acute distress Objective Labs 04/18/23 06:00 04/18/23 06:00 Labs: Laboratory Results - last 24 hr 04/18/23 06:00 WBC 8.5 RBC 4.19 L Hgb 12.5 L Hct 38.3 L MCV 91.3 MCH 29.9 MCHC 32.7 RDW 19.1 H Plt Count 152 Neut % (Auto) 77.2 H Lymph % (Auto) 9.8 L [place] % (Auto) 9.6 Eos % (Auto) 2.2 Baso % (Auto) 1.2 Neut # (Auto) 6600 Lymph # (Auto) 800 L [place] # (Auto) 800 Eos # (Auto) 200 Baso # (Auto) 100 Sodium 137 Potassium 3.7 Chloride 106 Carbon Dioxide 24 BUN 16 Creatinine 0.91 Estimated GFR > 60 BUN/Creatinine Ratio 17.6 Glucose 113 H Calcium 8.0 L Magnesium 2.1 Total Bilirubin 2.8 H AST 280 H ALT 287 H Alkaline Phosphatase 190 H Total Protein 6.6 Albumin 3.2 L Globulin 3.4 Albumin/Globulin Ratio 0.9 L PFSH Medical History Post-void dribbling Incomplete emptying of bladder Chronic anticoagulation Benign prostatic hyperplasia Lower urinary tract symptoms Male circumcision Hearing impaired Cyst in hand (~2019) Nephrolithiasis Syncope Ischemia Chronic low back pain Prediabetes History of colon polyps Diverticulosis Osteoarthritis Anxiety Sinus congestion Atrophic gastritis Dizziness Psoriatic arthropathy RLS (restless legs syndrome) Erectile dysfunction Testosterone deficiency Vitamin D deficiency Depression Insomnia Hydronephrosis Alcoholism Retroperitoneal mass Paroxysmal atrial flutter Paroxysmal atrial fibrillation Hyperlipidemia HTN (hypertension) YAIMA on CPAP Psoriatic arthritis Psoriasis Surgical History Hx of bilateral cataract extraction Hx of tonsillectomy History of ear, nose, and throat (ENT) surgery Hx of hernia repair History of surgery (05/20/22) 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 Mother Cancer Diabetes mellitus Brother No problems noted. Sister No problems noted. Social History marital status: number of children: 3 household members: spouse Smoking Status: Never smoker alcohol intake: current Assessment & Plan Post-op Postoperative Procedures: Procedures Operation Date: 04/16/23 13:45 Actual Procedure Side Surgeon p Laparoscopic Cholecystectomy Adonay Rivera MD Postoperative plan narrative: 78-year-old man postoperative day 2 status post laparoscopic cholecystectomy for gangrenous cholecystitis. -Doing well, improving -Ok for anticoagulation -anticipate dc home tomorrow if TB continues to downtrend Quality VTE Deep Vein Thrombosis/Pulmonary Embolism Present on Admission: No
--- NOTE | 2023-04-18 11:40 | P.PN_ITS ---
Subjective Subjective Interval history: 78M admitted with sepsis secondary to acute cholecystitis. Blood cultures are positive for E. coli. remains on antibiotics today. Has some incisional pain today but overall better. ABDIEL with sanguinous output. Tbili and liver enzymes improved. He feels a bit more abdominal pain today, but was able to walk around the unit. Exam Vital Signs (past 8 hours): - 04/18/23 04:00 04/18/23 04:30 04/18/23 04:57 Temperature Pulse Rate 59 L 53 L Respiratory Rate 19 13 Blood Pressure 130/60 Pulse Oximetry 95 93 Oxygen Delivery Method 04/18/23 04:57 04/18/23 05:00 04/18/23 05:05 Temperature 97.3 F L Pulse Rate 53 L 54 L 55 L Respiratory Rate 18 15 21 Blood Pressure 130/60 Pulse Oximetry 93 95 95 Oxygen Delivery Method 04/18/23 05:30 04/18/23 06:00 04/18/23 06:00 Temperature Pulse Rate 55 L 56 L Respiratory Rate 18 16 Blood Pressure Pulse Oximetry 94 94 95 Oxygen Delivery Method CPAP 04/18/23 06:30 04/18/23 07:00 04/18/23 07:30 Temperature Pulse Rate 54 L 53 L 55 L Respiratory Rate 15 18 21 Blood Pressure Pulse Oximetry 95 94 94 Oxygen Delivery Method 04/18/23 07:53 04/18/23 07:53 04/18/23 08:00 Temperature 98.0 F Pulse Rate 54 L 55 L Respiratory Rate 20 17 Blood Pressure 141/60 H Pulse Oximetry 94 94 Oxygen Delivery Method Oxygen Delivery Method CPAP Oxygen Flow Rate 2 Narrative Exam Narrative: General:? Patient is well developed and well nourished, in no distress at this time. HEENT:? Normocephalic, atraumatic, extraocular muscles intact, oral pharynx is clear and mucous membranes are moist. Neck: supple and symmetric, trachea is midline, no cervical adenopathy. Negative for JVD Chest:? Normal AP diameter and contour without kyphoscoliosis, no tachypnea, equal chest rise bilaterally. Lungs:? CTA b/l no wheezing rhonchi or rales. Cardio:?RRR no m/r/g. Abdomen: soft, mild distension, appropriately tender near incisions, dressing with some drainage, ABDIEL drain with sanguinous drainage. Musculoskeletal:? Muscle strength and tone are equal within normal limits, no deformity. Extremities: No edema or joint effusions. No cyanosis or clubbing. Skin:? Pale,? Warm to touch,dry and intact without rashes, ulcerations or petechiae.? Neuro:? Alert and orientated x3,? sensation to touch intact in all extremities, no gross deficits noted of cranial nerves. Psych:? Patient has a well-kept appearance, appropriate affect, mental status attitude thought context and judgment are appropriate for age. Objective Labs 04/18/23 06:00 04/18/23 06:00 Labs: Laboratory Results - last 24 hr 04/18/23 06:00 WBC 8.5 RBC 4.19 L Hgb 12.5 L Hct 38.3 L MCV 91.3 MCH 29.9 MCHC 32.7 RDW 19.1 H Plt Count 152 Neut % (Auto) 77.2 H Lymph % (Auto) 9.8 L [place] % (Auto) 9.6 Eos % (Auto) 2.2 Baso % (Auto) 1.2 Neut # (Auto) 6600 Lymph # (Auto) 800 L [place] # (Auto) 800 Eos # (Auto) 200 Baso # (Auto) 100 Sodium 137 Potassium 3.7 Chloride 106 Carbon Dioxide 24 BUN 16 Creatinine 0.91 Estimated GFR > 60 BUN/Creatinine Ratio 17.6 Glucose 113 H Calcium 8.0 L Magnesium 2.1 Total Bilirubin 2.8 H AST 280 H ALT 287 H Alkaline Phosphatase 190 H Total Protein 6.6 Albumin 3.2 L Globulin 3.4 Albumin/Globulin Ratio 0.9 L PFSH Medical History Post-void dribbling Incomplete emptying of bladder Chronic anticoagulation Benign prostatic hyperplasia Lower urinary tract symptoms Male circumcision Hearing impaired Cyst in hand (~2019) Nephrolithiasis Syncope Ischemia Chronic low back pain Prediabetes History of colon polyps Diverticulosis Osteoarthritis Anxiety Sinus congestion Atrophic gastritis Dizziness Psoriatic arthropathy RLS (restless legs syndrome) Erectile dysfunction Testosterone deficiency Vitamin D deficiency Depression Insomnia Hydronephrosis Alcoholism Retroperitoneal mass Paroxysmal atrial flutter Paroxysmal atrial fibrillation Hyperlipidemia HTN (hypertension) YAIMA on CPAP Psoriatic arthritis Psoriasis Surgical History Hx of bilateral cataract extraction Hx of tonsillectomy History of ear, nose, and throat (ENT) surgery Hx of hernia repair History of surgery (05/20/22) 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 Mother Cancer Diabetes mellitus Brother No problems noted. Sister No problems noted. Social History marital status: number of children: 3 household members: spouse Smoking Status: Never smoker alcohol intake: current Assessment & Plan Assessment & Plan narrative: Krunal Mahmood is a 77-year-old male on Xarelto for atrial fibrillation, essential hypertension, sleep apnea with CPAP, psoriasis, hyperlipidemia, and obesity admitted with sepsis secondary to acute cholecystitis 1. Sepsis secondary to acute cholecystitis and E. coli bacteremia with hyperbilirubinemia, thrombocytopenia and acute metabolic encephalopathy. - now POD #2 s/p lap catarino with surgery, notable for gangrenous gallbladder. ABDIEL drain remains in place with sanginous output. - continued zosyn for antibiotic therapy for cholecystitis initially. Blood cultures positive for E. coli which are now finalized. Will narrow to ceftriaxone 2g daily today. Transition to PO antibiotics at discharge to complete 7 days total therapy. - can stop IV fluids today. - MR negative for choledocholithiasis, though labs suggestive of it. LFT elevations may be due to liver hypoperfusion in sepsis as well. Improving today. 2. paroxysmal atrial fibrillation with chronic anticoagulation - INR 3.3 on admission, ordered 2000 U 4 factor PCC prior to OR to help with bleeding risk. - continue to hold home metoprolol - okay to resume xarelto tonight after discussion with surgery 3. HTN - held home medications in the setting of above sepsis. Will resume at half home dosing of metoprolol and amlodipine. 4. YAIMA on CPAP - continue CPAP at night, RT evalation. 5. HLD - hold home statin given liver enzyme elevations 6. Obesity The patient is at much higher risk for medical and surgical complications because of their obesity. This increases the difficulty and complexity of medical and surgical interventions and increases the chances of poor outcomes such as morbidity and mortality. 7. BPH - continue flomax Code: full, surrogate is patient's spouse DVT: resume xarelto tonight, SCDs currently Dispo: Likely home in 1-2 more days. I have utilized all available immediate resources to obtain, update, or review the patient's current medications. COVID-19 COVID-19 status: Negative Quality VTE Deep Vein Thrombosis/Pulmonary Embolism Present on Admission: No
[2023-04-18] MEDS: METOPROLOL ER 25 MG TABLET PO (12:07)
[2023-04-18] MEDS: OXYCODONE IR 10 MG TABLET PO ×2 (12:07→19:54)
[2023-04-18] MEDS: cefTRIAXone 2,000 MG in SODIUM CHLORIDE 0.9% 100 ML 200 MG IV (12:07)
--- NOTE | 2023-04-18 13:24 | CM.DPC ---
DCP Cont. Reviewed EMR and team rounds for status updates. Per Hospitalist, pt's drain has been removed, will remain inpt likely 1-2 more days. Cont. to monitor.
[2023-04-18] MEDS: RIVAROXABAN 10 MG TABLET 20 MG PO (17:16)
[2023-04-18] MEDS: TAMSULOSIN 0.4 MG CAPSULE 0.8 MG PO (19:55)
[2023-04-18] MEDS: GABAPENTIN 300 MG CAPSULE 600 MG PO (19:55)
[2023-04-18] MEDS: SODIUM CHLORIDE 0.9% FLUSH 10 ML IV (19:56)
[2023-04-19 00:40] VITALS: BP 139/65; PULSE 66; RESP 20; TEMP 37; O2SAT 94
[2023-04-19 02:00] VITALS: O2SAT 94
[2023-04-19 04:00] VITALS: BP 137/64; PULSE 71; RESP 18; TEMP 36.9; O2SAT 95
[2023-04-19 04:53] LABS: Add Manual Diff / Slide Review NO; Basophils Absolute Auto 0 /uL (0-100); Basophils Percent Auto 0.7 % (0-2); Eosinophils Absolute Auto 300 /uL (0-450); Hematocrit 35.2 % (41-53); Hemoglobin 11.7 g/dL (13.5-17.5); Lymphocytes Absolute Auto 1000 /uL (1100-4500); Lymphocytes Percent Auto 17.4 % (25-40); Mean Corpuscular HGB Conc 33.3 % (30-36); Mean Corpuscular Hemoglobin 29.9 PG (26-34); Monocytes Absolute Auto 1000 /uL (0-900); Monocytes Percent Auto 15.8 % (3-14); Neutrophils Absolute Auto 3700 /uL (1500-7000); Neutrophils Percent Auto 61.1 % (50-75); Platelet Count 177 X10^3/uL (150-400); Red Blood Cell Count 3.91 X10^6/uL (4.5-5.9)
[2023-04-19 05:24] LABS: Alanine Aminotransferase 233 IU/L (<50); Albumin 2.9 g/dL (3.5-5.0); Alkaline Phosphatase 188 U/L (38-126); Aspartate Aminotransferase 168 IU/L (17-59); Bilirubin Total 1.7 mg/dL (0.2-1.3); Blood Urea Nitrogen 13 mg/dL (9-20); Calcium 8.5 mg/dL (8.4-10.2); Carbon Dioxide 29 mmol/L (22-32); Chloride 104 mmol/L (98-107); Estimated Glomerular Filt Rate > 60 mL/min (>60); Globulin 2.9 g/dL (1.7-4.1); Glucose 110 mg/dL (80-110); HEMOLYSIS < 15 (0-50); Potassium 3.8 mmol/L (3.4-5.1); Sodium 136 mmol/L (137-145); Total Protein 5.8 g/dL (6.3-8.2)
[2023-04-19 06:00] VITALS: O2SAT 95
--- NOTE | 2023-04-19 06:27 | PC.NURSE ---
[employer] Note-Patient up to BR with FWW and SBA frequently. No BM, passing flatus, denies nausea, bowel sounds tympanic and hyperactive, abdomen tender and distended. Oxycodone given x1 with effectiveness. SB/SR, VSS, SpO2 >93% on RA or with his own C-pap.
[2023-04-19 08:00] VITALS: BP 155/76; PULSE 67; RESP 18; TEMP 37.2; O2SAT 97
[2023-04-19] MEDS: polyethylene glycoL 3350 17 GM POWD.PACK PO (08:45)
[2023-04-19] MEDS: METOPROLOL ER 25 MG TABLET PO (08:48)
[2023-04-19] MEDS: buPROPion XL 150 MG TAB PO (08:48)
[2023-04-19] MEDS: AMLODIPINE 5 MG TABLET PO (08:49)
[2023-04-19] MEDS: FLUoxetine 20 MG CAPSULE PO (08:49)
[2023-04-19] MEDS: VIT C/E/ZN/COPPR/LUTEIN/ZEAXAN CAPSULE 1 CAP PO (08:49)
[2023-04-19] MEDS: SODIUM CHLORIDE 0.9% FLUSH 10 ML IV (08:50)
--- NOTE | 2023-04-19 12:17 | PM.DS.1 ---
History of Present Illness History of Present Illness Date Patient Seen: 04/19/23 Time Patient Seen: 09:00 Chief complaint: abd pain Narrative: Krunal Mahmood is a 77-year-old male on Xarelto for atrial fibrillation, essential hypertension, sleep apnea with CPAP, psoriasis, hyperlipidemia, and obesity who presented with abdominal pain for the past two days. He reports it is midepigastric to RUQ in location, with some radiation into his sternal area. It feels more of a cramping sensation, but difficult to describe. There was some improvement the following morning, but reports he tried some soup last night with worsening again. He denies fever or chills. He has no recent dyspnea on exertion or LE edema and no recent chest pain. Vitals were notable in the ER for a fever to 102 F. MAP was borderline at 71. Labs notable for leukocytosis, thrombocytopenia, elevated INR at 3.6. Chemistries notable for elevations in bilirubin AST and ALT. Troponin was 0.022. Procalcitonin was 0.30. CT scan showed cholecystitis with retroperitoneal mass. 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 Discussed management with surgery given current sepsis for risk and benefit discussion of bleeding vs sepsis risk given lack of ability for cholecystostomy tube. Plan for catarino this afternoon, will give PCC prior to OR given current xarelto use. Discharge Providers Provider Date of admission: 04/16/23 09:26 Discharge Date: 04/19/23 Primary care physician: Kavita Aranda MD Discharge provider: Evens Edwards DO Summary Hospital Course Discharge Diagnosis: 1. Sepsis secondary to acute cholecystitis and E. coli bacteremia with hyperbilirubinemia, thrombocytopenia and acute metabolic encephalopathy. 2. paroxysmal atrial fibrillation with chronic anticoagulation 3. HTN 4. YAIMA on CPAP 5. HLD 6. Obesity 7. BPH Hospital Course: Krunal Mahmood is a 77-year-old male on Xarelto for atrial fibrillation, essential hypertension, sleep apnea with CPAP, psoriasis, hyperlipidemia, and obesity admitted with sepsis secondary to acute cholecystitis. He presented with sepsis with hypotension, acute metabolic encephalopathy, and thrombocytopenia. Management was discussed with surgery regarding further deterioration in setting of sepsis and bleeding risk. 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 He underwent laparoscopic cholecystectomy with removal of a gangrenous gallbladder. There was no stone present on MRCP despite typical labs consistent with cholangitis, and this may have been in the setting of hepatic hypoperfusion. He was continued on zosyn empirically and his home BP medications were held initially. Tbili and AST/ALT all continued to improve. Blood cultures grew E. coli. A ABDIEL drain was left in place after surgery, and removed on the day of discharge. He had a relatively uncomplicated post operative course. His xarelto was held for 48 hours after surgery given bleeding risk, then resumed the day prior to discharge without obvious bleeding. His BP continued to improve as did the patient and he may resume home BP medications at discharge. He was discharged on HD#3 after ABDIEL drain removal, to complete another 5 days of antibiotics with augmentin for E. coli bacteremia based on sensitivities and medication interactions. The patient was at much higher risk for medical and surgical complications because of their obesity. This increases the difficulty and complexity of medical and surgical interventions and increases the chances of poor outcomes such as morbidity and mortality. Time Spent with Patient Time spent: Greater than 30 minutes Exam Vital Signs (past 8 hours): - 04/19/23 06:00 04/19/23 08:00 04/19/23 09:00 Temperature 98.9 F Pulse Rate 67 Respiratory Rate 18 Blood Pressure 155/76 H Pulse Oximetry 95 97 Oxygen Delivery Method Room Air CPAP Room Air Oxygen Flow Rate 0 Oxygen Delivery Method Room Air Oxygen Flow Rate 0 Narrative Exam Narrative: General:? Patient is well developed and well nourished, in no distress at this time. HEENT:? Normocephalic, atraumatic, extraocular muscles intact, oral pharynx is clear and mucous membranes are moist. Neck: supple and symmetric, trachea is midline, no cervical adenopathy. Negative for JVD Chest:? Normal AP diameter and contour without kyphoscoliosis, no tachypnea, equal chest rise bilaterally. Lungs:? CTA b/l no wheezing rhonchi or rales. Cardio:?RRR no m/r/g. Abdomen: soft, mild distension, appropriately tender near incisions, dressing with some drainage, ABDIEL drain with sanguinous drainage. Musculoskeletal:? Muscle strength and tone are equal within normal limits, no deformity. Extremities: No edema or joint effusions. No cyanosis or clubbing. Skin:? Pale,? Warm to touch,dry and intact without rashes, ulcerations or petechiae.? Neuro:? Alert and orientated x3,? sensation to touch intact in all extremities, no gross deficits noted of cranial nerves. Psych:? Patient has a well-kept appearance, appropriate affect, mental status attitude thought context and judgment are appropriate for age. Objective Labs 04/19/23 04:05 04/19/23 04:05 Labs: Laboratory Results - last 24 hr 04/19/23 04:05 WBC 6.0 RBC 3.91 L Hgb 11.7 L Hct 35.2 L MCV 90.0 MCH 29.9 MCHC 33.3 RDW 19.0 H Plt Count 177 Neut % (Auto) 61.1 Lymph % (Auto) 17.4 L Cavalier % (Auto) 15.8 H Eos % (Auto) 5.0 H Baso % (Auto) 0.7 Neut # (Auto) 3700 Lymph # (Auto) 1000 L Cavalier # (Auto) 1000 H Eos # (Auto) 300 Baso # (Auto) 0 Sodium 136 L Potassium 3.8 Chloride 104 Carbon Dioxide 29 BUN 13 Creatinine 0.81 Estimated GFR > 60 BUN/Creatinine Ratio 16.0 Glucose 110 Calcium 8.5 Magnesium 2.0 Total Bilirubin 1.7 H AST 168 H ALT 233 H Alkaline Phosphatase 188 H Total Protein 5.8 L Albumin 2.9 L Globulin 2.9 Albumin/Globulin Ratio 1.0 PFSH Medical History Post-void dribbling Incomplete emptying of bladder Chronic anticoagulation Benign prostatic hyperplasia Lower urinary tract symptoms Male circumcision Hearing impaired Cyst in hand (~2019) Nephrolithiasis Syncope Ischemia Chronic low back pain Prediabetes History of colon polyps Diverticulosis Osteoarthritis Anxiety Sinus congestion Atrophic gastritis Dizziness Psoriatic arthropathy RLS (restless legs syndrome) Erectile dysfunction Testosterone deficiency Vitamin D deficiency Depression Insomnia Hydronephrosis Alcoholism Retroperitoneal mass Paroxysmal atrial flutter Paroxysmal atrial fibrillation Hyperlipidemia HTN (hypertension) YAIMA on CPAP Psoriatic arthritis Psoriasis Surgical History Hx of bilateral cataract extraction Hx of tonsillectomy History of ear, nose, and throat (ENT) surgery Hx of hernia repair History of surgery (05/20/22) 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 Mother Cancer Diabetes mellitus Brother No problems noted. Sister No problems noted. Social History marital status: number of children: 3 household members: spouse Smoking Status: Never smoker alcohol intake: current Discharge Plan Discharge Plan Patient Disposition: Home Provider Discharge Comment: you were admitted to the hospital with a gallbladder infection that made you very sick. The bacteria from that infection entered your blood stream. Complete full course of antibiotics at home. Discharge orders & Medications Prescriptions: New tamsulosin [Flomax] 0.4 mg Capsule 0.8 mg PO BEDTIME Qty: 60 0RF oxycodone 5 mg Tablet 5 - 10 mg PO Q4H PRN (Reason: Pain, Moderate (4-6)) 7 Days Qty: 30 0RF amoxicillin-pot clavulanate 875-125 mg tablet 1 tab PO BID 5 Days Qty: 10 0RF Continued PreserVision AREDS-2 250-90-40-1 mg Capsule 1 tab PO BID Xarelto 20 mg tablet 20 mg PO QPM Qty: 30 0RF methotrexate sodium 2.5 mg Tablet 7.5 mg SEEINSTR Rx Instructions: 3 pills every wednesday am and 3 pills every wednesday am tamsulosin 0.4 mg Capsule 0.8 mg PO BID amlodipine 10 mg Tablet 10 mg PO DAILY folic acid 1 mg Tablet 1 mg PO DAILY bupropion HCl 300 mg Tablet Extended Release 24 Hr 300 mg PO QAM testosterone cypionate 200 mg/mL Kit 600 mg IM SEEINSTR Rx Instructions: Injection once every 10 days - 3mL atorvastatin 10 mg tablet 10 mg PO QAM gabapentin 300 mg capsule 600 mg PO BEDTIME metoprolol succinate 50 mg tablet extended release 24 hr 50 mg PO QAM Patient Comments: TK 1 T PO QD fluoxetine 20 mg Capsule 20 mg PO DAILY cyanocobalamin (vitamin B-12) PO cholecalciferol (vitamin D3) 1,000 unit PO QAM coenzyme Q10 [Ultra CoQ10] PO Medication counseling provided by Pharmacist: Yes Follow up/Referrals: Adonay Rivera MD [Physician] - 2 Weeks (post op catarino) Kavita Aranda MD [Primary Care Provider] - Diet/Activity/Treatments Diet: Diet as Tolerated and Regular Activity: No heavy lifting >10-15lbs for at least 2 weeks after surgery. Skin/Wound/Dressing Care Report to your healthcare provider any signs of infection, such as:: chills, fever, increased pain and unusual drainage Visit Report/Discharge Packet Stand Alone Forms: Patient Portal/API, Stroke Signs & Symptoms Discharge Data Primary Care Provider: Kavita Aranda Quality VTE Deep Vein Thrombosis/Pulmonary Embolism Present on Admission: No
--- NOTE | 2023-04-19 13:13 | CM.DPC ---
DCP Discharge Home Per MD, pt medically stable to d/c later today once Surgeon determines plan for pt's current ABDIEL drain and will start pt back on his home meds to confirm his bp is stable. SW met bedside with pt and explained role and he confirms he has been using the FWW in room with SBA for mobility but did feel more dizzy this morning with ambulation. Pt denies any current need for HH and states either his or Dtr can provide transport at d/c but likely will be this afternoon before they can arrive to take him home. Pt also asked for the Senior Resource Guidebook as spouse wanted it for resource information as they are aware that they might need additional assist in the future. Pt and spouse live in [facility] and Dtr lives nearby. SW provided a copy of Resource Guidebook to go along with his discharge instructions. Plan: SW to follow for plan of discharge home via family POV later today if he remains medically stable. No further SW needs at this time, please refer if indicated. DAVID Hernandez
== END 2023-04-19 13:30 | disposition home or self-care (01) | DRG 853 ==
LOC: ED 09:25 → AC 09:26 → ICU 11:25
PROVIDERS: Emergency Medicine; Surgery; Admitting Provider Internal Medicine; Emergency Provider Emergency Medicine; PCP Internal Medicine; Referring Provider Emergency Medicine; Visit Provider Internal Medicine
PROC: 0FT44ZZ Resection of Gallbladder, Percutaneous Endoscopic Approach (ICD-10-PCS; CPT 47562; principal; 2023-04-16 13:45)
DX: A41.9 Sepsis, unspecified organism (principal); G93.41 Metabolic encephalopathy; K80.00 Calculus of gallbladder with acute cholecystitis without obstruction; E80.6 Other disorders of bilirubin metabolism; D69.59 Other secondary thrombocytopenia; I48.0 Paroxysmal atrial fibrillation; G47.33 Obstructive sleep apnea (adult) (pediatric); E66.9 Obesity, unspecified; N40.0 Benign prostatic hyperplasia without lower urinary tract symptoms; K82.A1 Gangrene of gallbladder in cholecystitis; B96.20 Unspecified Escherichia coli [E. coli] as the cause of diseases classified elsewhere; I10 Essential (primary) hypertension; E78.5 Hyperlipidemia, unspecified; Z68.32 Body mass index [BMI] 32.0-32.9, adult; Z79.01 Long term (current) use of anticoagulants
CPT/HCPCS: 36415; 74177; 74183; 80053; 80320; 81003; 81015; 83605; 83690; 83735; 84145; 84484; 85025; 85610; 85730; 87040; 87154; 87186; 87635; 87797; 96365; 99285; C9803; J0690; J0696; J1885; J2405; J2543; J2704; J3490; J7168; Q9967

== ENCOUNTER 2023-04-25 12:24 | Emergency (ER) | payer MEDICARE, OTHER, SELFPAY ==
[2023-04-16 09:33] VITALS: BMI 32.8
[2023-04-25] VITALS (19 sets, daily range): BP systolic 85–156; BP diastolic 50–74; PULSE 51–65; RESP 15–29; TEMP 36.4–37.1; O2SAT 95–100; BMI 31.1
--- NOTE | 2023-04-25 12:47 | DI.RAD.S_ITS ---
PROCEDURE: XR CHEST 1V INDICATIONS: chest pain TECHNIQUE: One view of the chest was acquired. COMPARISON: [facility], CR, XR CHEST 1V, 10/05/2022, 9:37. FINDINGS: Surgical changes and devices: None. Lungs and pleura: Lungs are clear. No pleural effusions or pneumothorax. Mediastinum: Mediastinal contours appear normal. Heart size is normal. Bones and chest wall: No suspicious bony lesions. Overlying soft tissues appear unremarkable. IMPRESSION: No acute cardiopulmonary pathology. Dictated by: Obie Guzmán M.D. on 04/25/2023 at 13:09 Approved by: Obie Guzmán M.D. on 04/25/2023 at 13:09
[2023-04-25 13:03] LABS: Hematocrit 39.3 % (41-53); Hemoglobin 12.9 g/dL (13.5-17.5); Mean Corpuscular HGB Conc 32.8 % (30-36); Mean Corpuscular Volume 91.4 fL (80-100); Platelet Count 297 X10^3/uL (150-400); Red Cell Distribution Width 18.2 % (11.6-14.8); White Blood Cell Count 6.7 X10^3/uL (4.5-11.0)
[2023-04-25 13:04] LABS: Add Manual Diff / Slide Review YES
[2023-04-25 13:06] LABS: INR 1.7 (0.9-1.3); Prothrombin Time 19.5 SECONDS (10.1-12.7)
--- NOTE | 2023-04-25 13:06 | ED.DIZZY ---
HPI - Dizziness General Chief Complaint: Dizziness Stated Complaint: low BP/dizzy Time Seen by Provider: 04/25/23 13:05 History of Present Illness HPI Narrative: Patient is an 78-year-old male history of paroxysmal atrial fibrillation is on Xarelto was admitted April 16 through April 19 for acute cholecystitis where he had a cholecystectomy, with E coli bacteremia. He reports that when he entered the hospital he weighed 231 lb when he left he was 237 lb and today he was 223 lb. He has had decreased appetite he has been trying to stay hydrated but says not enough. He is had low blood pressures at home as low as 76. He is not tachycardic here. He is no numbness tingling or weakness. He denies any headache chest pain or palpitations. He has no abdominal pain but reports that the itself is a little bit sensitive. He is having bowel movements. Related Data Home Medications Medication Instructions Recorded Confirmed atorvastatin 10 mg tablet 10 mg PO QAM 02/05/18 04/17/23 gabapentin 300 mg capsule 600 mg PO BEDTIME 02/05/18 04/17/23 fluoxetine 20 mg capsule 20 mg PO DAILY 09/02/18 04/17/23 vit C 250 mg-vit E 90 mg-zinc 40 1 tab PO BID 06/15/22 04/17/23 mg-copper 1 [id number] capsule (PreserVision AREDS-2) metoprolol succinate 50 mg 50 mg PO QAM 07/09/22 04/17/23 tablet,extended release 24 hr cholecalciferol (vitamin D3) 1,000 unit PO QAM 12/23/22 04/17/23 coenzyme Q10 [Ultra CoQ10] PO 12/23/22 12/30/22 cyanocobalamin (vitamin B-12) PO 12/23/22 12/30/22 amlodipine 10 mg tablet 10 mg PO DAILY 04/17/23 04/17/23 bupropion HCl 300 mg 24 hr tablet, 300 mg PO QAM 04/17/23 04/17/23 extended release folic acid 1 mg tablet 1 mg PO DAILY 04/17/23 04/17/23 methotrexate sodium 2.5 mg tablet 7.5 mg SEEINSTR 04/17/23 04/17/23 tamsulosin 0.4 mg capsule 0.8 mg PO BID 04/17/23 04/17/23 testosterone cypionate 200 mg/mL 600 mg IM SEEINSTR 04/17/23 04/17/23 intramuscular kit Previous Rx's Medication Instructions Recorded rivaroxaban 20 mg tablet (Xarelto) 20 mg PO QPM #30 tabs 06/19/22 oxycodone 5 mg tablet 5 - 10 mg (1 - 2 x 5 mg) PO Q4H 04/19/23 PRN Pain, Moderate (4-6) 7 days #30 tabs tamsulosin 0.4 mg capsule (Flomax) 0.8 mg (2 x 0.4 mg) PO BEDTIME #60 04/19/23 caps Allergies Allergy/AdvReac Type Severity Reaction Status Date / Time No Known Drug Allergies Allergy Verified 12/30/22 13:46 Review of Systems Review of Systems ROS Unobtainable: All systems reviewed & are unremarkable except as noted in HPI and below Patient History Medical History Post-void dribbling Incomplete emptying of bladder Chronic anticoagulation Benign prostatic hyperplasia Lower urinary tract symptoms Male circumcision Hearing impaired Cyst in hand (~2019) Nephrolithiasis Syncope Ischemia Chronic low back pain Prediabetes History of colon polyps Diverticulosis Osteoarthritis Anxiety Sinus congestion Atrophic gastritis Dizziness Psoriatic arthropathy RLS (restless legs syndrome) Erectile dysfunction Testosterone deficiency Vitamin D deficiency Depression Insomnia Hydronephrosis Alcoholism Retroperitoneal mass Paroxysmal atrial flutter Paroxysmal atrial fibrillation Hyperlipidemia HTN (hypertension) YAIMA on CPAP Psoriatic arthritis Psoriasis Surgical History Hx of bilateral cataract extraction Hx of tonsillectomy History of ear, nose, and throat (ENT) surgery Hx of hernia repair History of surgery (05/20/22) 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 Mother Cancer Diabetes mellitus Brother No problems noted. Sister No problems noted. Social History marital status: number of children: 3 household members: spouse Smoking Status: Never smoker alcohol intake: current Smoking Status: Never smoker alcohol intake frequency: 0-2 drinks per day Alcohol type: wine Substance Use Type: does not use Exam Initial Vital Signs Initial Vital Signs: Vital Signs Pulse Rate 55 L 04/25/23 12:32 Blood Pressure 143/69 H 04/25/23 12:32 Pulse Oximetry 99 04/25/23 12:32 GENERAL: Alert very pleasant 78-year-old male and in no acute distress. HEENT: Head atraumatic,EOMI, pupils reactive, face symmetric, moist mucous membranes CARDIOVASCULAR: Regular rate and rhythm without murmurs, rubs or gallops. RESPIRATORY: Breath sounds equal bilaterally, no wheezes rales or rhonchi. ABDOMEN: Soft, nontender. Normoactive bowel sounds all 4 quadrants. No guarding or rebound. Incision sites clean and dry EXTREMITIES: Normal range of motion, no clubbing or edema. Neurovascularly intact NEUROLOGICAL: Alert and oriented x4.Normal gait and speech. Cranial nerves II through XII grossly intact. Good [id number], good [id number], strength equal bilaterally, no dysarthria or aphasia, sensation in tact to soft touch bilaterally, no visual changes, no facial droop SKIN: Warm, dry, no laceration, no petechiae, no rashes or lesions. Mild blanchable erythema more on right than left side no streaking no petechiae Course Orders Ordered: ED Orders 04/25/23 12:47 XR chest 1V Stat EKG-12 Lead Stat 04/25/23 12:55 Complete Blood Count AUTO DIFF Stat Comprehensive Metabolic Panel Stat Lipase Stat Magnesium Stat PTT Partial Thromboplastin Graeme Stat Prothrombin Time INR Stat Troponin & CK Cardiac Panel Stat Discontinued Medications Sodium Chloride (Normal Saline 0.9%) 1,000 mls @ 1,000 mls/hr IV BOLUS ONE Stop: 04/25/23 14:25 Last Infusion: 04/25/23 14:30 Dose: Infused Documented By: Admin: 04/25/23 13:41 Dose: 1,000 mls/hr Documented By: TC Sodium Chloride (Normal Saline 0.9%) 1,000 mls @ 1,000 mls/hr IV BOLUS ONE Stop: 04/25/23 15:17 Last Infusion: 04/25/23 15:34 Dose: Infused Documented By: Admin: 04/25/23 14:36 Dose: 1,000 mls/hr Documented By: TC Vital Signs Vital signs: Vital Signs - 8 hr 04/25/23 12:32 04/25/23 12:32 04/25/23 12:37 Temperature 97.5 F L Pulse Rate 55 L 52 L Pulse Rate [Orthostatic Lying] Pulse Rate [Orthostatic Sitting] Pulse Rate [Orthostatic Standing] Respiratory Rate 16 Blood Pressure 143/69 H 143/69 H Blood Pressure [Orthostatic Lying] Blood Pressure [Orthostatic Sitting] Blood Pressure [Orthostatic Standing] Pulse Oximetry 99 100 Oxygen Delivery Method Room Air 04/25/23 12:55 04/25/23 12:55 04/25/23 13:00 Temperature Pulse Rate 51 L 57 L Pulse Rate [Orthostatic Lying] Pulse Rate [Orthostatic Sitting] Pulse Rate [Orthostatic Standing] Respiratory Rate 18 21 Blood Pressure 128/62 Blood Pressure [Orthostatic Lying] Blood Pressure [Orthostatic Sitting] Blood Pressure [Orthostatic Standing] Pulse Oximetry 97 98 Oxygen Delivery Method 04/25/23 13:28 04/25/23 13:29 04/25/23 13:30 Temperature Pulse Rate 52 L 57 L 57 L Pulse Rate [Orthostatic Lying] Pulse Rate [Orthostatic Sitting] Pulse Rate [Orthostatic Standing] Respiratory Rate 24 24 Blood Pressure 126/65 106/58 L Blood Pressure [Orthostatic Lying] Blood Pressure [Orthostatic Sitting] Blood Pressure [Orthostatic Standing] Pulse Oximetry 97 97 Oxygen Delivery Method 04/25/23 13:32 04/25/23 13:32 04/25/23 13:35 Temperature Pulse Rate 65 Pulse Rate [Orthostatic Lying] 52 L Pulse Rate [Orthostatic Sitting] 63 Pulse Rate [Orthostatic Standing] 60 Respiratory Rate 29 H Blood Pressure 85/50 L Blood Pressure [Orthostatic Lying] 126/65 Blood Pressure [Orthostatic Sitting] 106/58 L Blood Pressure [Orthostatic Standing] 85/50 L Pulse Oximetry 97 Oxygen Delivery Method 04/25/23 13:41 04/25/23 13:41 04/25/23 14:00 Temperature Pulse Rate 52 L 51 L Pulse Rate [Orthostatic Lying] Pulse Rate [Orthostatic Sitting] Pulse Rate [Orthostatic Standing] Respiratory Rate 26 H 26 H Blood Pressure 143/70 H Blood Pressure [Orthostatic Lying] Blood Pressure [Orthostatic Sitting] Blood Pressure [Orthostatic Standing] Pulse Oximetry 96 95 Oxygen Delivery Method 04/25/23 14:00 04/25/23 14:30 04/25/23 14:30 Temperature Pulse Rate 55 L Pulse Rate [Orthostatic Lying] Pulse Rate [Orthostatic Sitting] Pulse Rate [Orthostatic Standing] Respiratory Rate 26 H Blood Pressure 143/69 H 148/71 H Blood Pressure [Orthostatic Lying] Blood Pressure [Orthostatic Sitting] Blood Pressure [Orthostatic Standing] Pulse Oximetry 98 Oxygen Delivery Method 04/25/23 15:00 04/25/23 15:00 04/25/23 15:27 Temperature Pulse Rate 51 L Pulse Rate [Orthostatic Lying] Pulse Rate [Orthostatic Sitting] Pulse Rate [Orthostatic Standing] Respiratory Rate 19 Blood Pressure 150/69 H 156/70 H Blood Pressure [Orthostatic Lying] Blood Pressure [Orthostatic Sitting] Blood Pressure [Orthostatic Standing] Pulse Oximetry 99 Oxygen Delivery Method 04/25/23 15:29 04/25/23 15:29 04/25/23 15:30 Temperature Pulse Rate 53 L 56 L 61 Pulse Rate [Orthostatic Lying] Pulse Rate [Orthostatic Sitting] Pulse Rate [Orthostatic Standing] Respiratory Rate 15 24 19 Blood Pressure 151/74 H Blood Pressure [Orthostatic Lying] Blood Pressure [Orthostatic Sitting] Blood Pressure [Orthostatic Standing] Pulse Oximetry 98 99 98 Oxygen Delivery Method 04/25/23 15:31 04/25/23 15:31 04/25/23 15:33 Temperature Pulse Rate 63 Pulse Rate [Orthostatic Lying] 55 L Pulse Rate [Orthostatic Sitting] 60 Pulse Rate [Orthostatic Standing] 62 Respiratory Rate 18 Blood Pressure 151/71 H Blood Pressure [Orthostatic Lying] 155/70 H Blood Pressure [Orthostatic Sitting] 151/74 H Blood Pressure [Orthostatic Standing] 151/71 H Pulse Oximetry 98 Oxygen Delivery Method 04/25/23 15:59 Temperature 98.7 F Pulse Rate 53 L Pulse Rate [Orthostatic Lying] Pulse Rate [Orthostatic Sitting] Pulse Rate [Orthostatic Standing] Respiratory Rate 15 Blood Pressure 151/74 H Blood Pressure [Orthostatic Lying] Blood Pressure [Orthostatic Sitting] Blood Pressure [Orthostatic Standing] Pulse Oximetry 98 Oxygen Delivery Method Room Air MDM - Dizziness Lab Data 04/25/23 12:55 04/25/23 12:55 Labs: Lab Results 04/25/23 Range/Units 12:55 WBC 6.7 (4.5-11.0) X10^3/uL RBC 4.30 L (4.5-5.9) X10^6/uL Hgb 12.9 L (13.5-17.5) g/dL Hct 39.3 L (41-53) % MCV 91.4 (80-100) fL MCH 30.0 (26-34) PG MCHC 32.8 (30-36) % RDW 18.2 H (11.6-14.8) % Plt Count 297 (150-400) X10^3/uL Neut % (Auto) Not Reportable Lymph % (Auto) Not Reportable [place] % (Auto) Not Reportable Eos % (Auto) Not Reportable Baso % (Auto) Not Reportable Lymph # (Auto) Not Reportable [place] # (Auto) Not Reportable Baso # (Auto) Not Reportable Total Counted 100 Seg Neutrophils % 70.0 (38-70) % Band Neutrophils % 1.0 L (3-7) % Lymphocytes % (Manual) 16.0 L (25-45) % Monocytes % (Manual) 9.0 (2-11) % Eosinophils % (Manual) 4.0 (2-4) % Neutrophils # (Manual) 4757 ([id number]) /uL RBC Morphology See below Anisocytosis 1+ H PT 19.5 H D (10.1-12.7) SECONDS INR 1.7 H (0.9-1.3) APTT 99 H* (26-36) SECONDS Sodium 136 L (137-145) mmol/L Potassium 4.4 (3.4-5.1) mmol/L Chloride 102 (98-107) mmol/L Carbon Dioxide 28 (22-32) mmol/L BUN 21 H (9-20) mg/dL Creatinine 1.21 (0.66-1.25) mg/dL Estimated GFR > 60 (>60) mL/min BUN/Creatinine Ratio 17.4 (6-22) Glucose 108 (80-110) mg/dL Calcium 9.7 (8.4-10.2) mg/dL Magnesium 2.2 (1.6-2.3) mg/dL Total Bilirubin 1.2 (0.2-1.3) mg/dL AST 41 (17-59) IU/L ALT 68 H (<50) IU/L Alkaline Phosphatase 206 H (38-126) U/L Total Creatine Kinase 59 (55-170) U/L Troponin I < 0.012 (0.01-0.034) ng/mL Total Protein 7.2 (6.3-8.2) g/dL Albumin 3.8 (3.5-5.0) g/dL Globulin 3.4 (1.7-4.1) g/dL Albumin/Globulin Ratio 1.1 (1.0-2.8) Lipase 52 (23-300) U/L ECG Data Interpretation: Normal sinus rhythm rate 54 WI interval 162 QRS [address] changes T-wave inversion noted lead 3 similar to prior EKGs MDM Narrative Medical decision making narrative: Patient 78-year-old male presents today with dizziness lightheadedness and low blood pressures at. He is concerned because previously he had a cholecystitis internal bleeding when he was dizzy. No prior history of vertigo. He has a NIH stroke scale of 0. He has very positive orthostatic vitals and weight loss suggesting dehydration. Blood work has been reviewed no evidence of dehydration in labs electrolyte or kidney function. He has no evidence of anemia in fact his hemoglobin went up from his last on 04/19/2023. He does some mild erythema on exam on abdomen he just finished antibiotics for cholecystitis I this is more maybe a localized irritation does not really appear to be cellulitic he is not had any fever he does not have any pain he has no leukocytosis. Patient was given 2 L of IV fluids he had repeat orthostatics which were then negative. He was able to ambulate without any difficulty. Patient's abdomen is soft without focal deficits or nystagmus and positive orthostatics. At this time I see no need for head CT or abdominal CT. Discussed when to return Discharge Plan Departure Patient Disposition: Home Clinical Impression: Orthostatic hypotension, Acute dehydration Instructions: Orthostatic Hypotension Activity Restrictions/Additional Instructions: *You have been diagnosed with orthostatic hypotension *What to do: At this time increase fluids as tolerated. I think you are little dehydrated. Get up slowly. *Continue to take medications as directed *Follow up with your primary care provider in 2-3 days or call [phone] *Return to ER if you should have increasing dizziness lightheadedness falling chest pain fever worsening redness or any new, worsening or concerning symptoms Prescriptions: No Action PreserVision AREDS-2 250-90-40-1 mg Capsule 1 tab PO BID Xarelto 20 mg tablet 20 mg PO QPM Qty: 30 0RF methotrexate sodium 2.5 mg Tablet 7.5 mg SEEINSTR Rx Instructions: 3 pills every wednesday am and 3 pills every wednesday am tamsulosin 0.4 mg Capsule 0.8 mg PO BID amlodipine 10 mg Tablet 10 mg PO DAILY folic acid 1 mg Tablet 1 mg PO DAILY bupropion HCl 300 mg Tablet Extended Release 24 Hr 300 mg PO QAM testosterone cypionate 200 mg/mL Kit 600 mg IM SEEINSTR Rx Instructions: Injection once every 10 days - 3mL tamsulosin [Flomax] 0.4 mg Capsule 0.8 mg PO BEDTIME Qty: 60 0RF oxycodone 5 mg Tablet 5 - 10 mg PO Q4H PRN (Reason: Pain, Moderate (4-6)) 7 Days Qty: 30 0RF atorvastatin 10 mg tablet 10 mg PO QAM gabapentin 300 mg capsule 600 mg PO BEDTIME metoprolol succinate 50 mg tablet extended release 24 hr 50 mg PO QAM Patient Comments: TK 1 T PO QD fluoxetine 20 mg Capsule 20 mg PO DAILY cyanocobalamin (vitamin B-12) PO cholecalciferol (vitamin D3) 1,000 unit PO QAM coenzyme Q10 [Ultra CoQ10] PO Referrals: Kavita Aranda MD [Primary Care Provider] - Stand Alone Forms: Patient Portal/API
[2023-04-25 13:11] LABS: Alanine Aminotransferase 68 IU/L (<50); Albumin 3.8 g/dL (3.5-5.0); Albumin Globulin Ratio 1.1 (1.0-2.8); Alkaline Phosphatase 206 U/L (38-126); Aspartate Aminotransferase 41 IU/L (17-59); BUN Creatinine Ratio 17.4 (6-22); Bilirubin Total 1.2 mg/dL (0.2-1.3); Blood Urea Nitrogen 21 mg/dL (9-20); Calcium 9.7 mg/dL (8.4-10.2); Carbon Dioxide 28 mmol/L (22-32); Chloride 102 mmol/L (98-107); Creatine Kinase 59 U/L (55-170); Estimated Glomerular Filt Rate > 60 mL/min (>60); Globulin 3.4 g/dL (1.7-4.1); Glucose 108 mg/dL (80-110); HEMOLYSIS < 15 (0-50); Lipase 52 U/L (23-300); Magnesium 2.2 mg/dL (1.6-2.3); Potassium 4.4 mmol/L (3.4-5.1); Sodium 136 mmol/L (137-145); Total Protein 7.2 g/dL (6.3-8.2)
[2023-04-25 13:17] LABS: Anisocytosis 1+; Neutrophils Absolute Manual 4757 /uL (3000-5900); Total Cells Counted 100
[2023-04-25 13:22] LABS: PTT Partial Thromboplastin Tim 99 SECONDS (26-36); Troponin I < 0.012 ng/mL (0.01-0.034)
[2023-04-25] MEDS: SODIUM CHLORIDE 0.9% 1,000 ML 1000 ML IV ×2 (13:41→14:36)
== END 2023-04-25 16:00 | disposition home or self-care (01) ==
PROVIDERS: Emergency Provider Emergency Medicine; PCP Internal Medicine
DX: I95.1 Orthostatic hypotension (principal); E86.0 Dehydration; Z79.899 Other long term (current) drug therapy
CPT/HCPCS: 36415; 71045; 80053; 82550; 83690; 83735; 84484; 85007; 85025; 85610; 85730; 93005; 93010; 96360; 96361; 99284

== ENCOUNTER 2023-11-01 18:29 | Emergency (ER) | payer MEDICARE, OTHER, SELFPAY ==
[2023-04-16 09:33] VITALS: BMI 32.8
--- NOTE | 2023-11-01 19:17 | DI.CT.S_ITS ---
PROCEDURE: CT HEAD/BRAIN WO CON INDICATIONS: fall on thinners + head trauma TECHNIQUE: Noncontrast 4.5 mm thick angled axial sections acquired from the foramen magnum to the vertex, with coronal and sagittal reformats. For radiation dose reduction, the following was used: automated exposure control, adjustment of mA and/or kV according to patient size. COMPARISON: [facility], CT, CT HEAD/BRAIN WO CON, 10/05/2022, 9:48. FINDINGS: Image quality: Diagnostic CSF spaces: Basal cisterns are patent. Lateral ventricles are symmetric. Volume: Vascular calcifications. Periventricular white matter disease is commonly seen with chronic microangiopathy. Volume loss is present. These findings are moderate Brain: No intracranial hemorrhage. Pal-white differentiation is grossly maintained. Craniofacial structures: Intact partially visualized craniofacial structures. Right frontal contusion. Partially empty sella. IMPRESSION: No acute intracranial pathology. Possible right frontal soft tissue contusion Dictated by: Miguel Enriquez M.D. on 11/01/2023 at 20:20 Approved by: Miguel Enriquez M.D. on 11/01/2023 at 20:22
--- NOTE | 2023-11-01 19:17 | DI.CT.S_ITS ---
PROCEDURE: CT CERVICAL SPINE WO CON INDICATIONS: fall on thinners + head trauma TECHNIQUE: Noncontrast 3 mm thick sections acquired from the skull base to the T4 level. Sagittal and coronal reformats were then constructed. For radiation dose reduction, the following was used: automated exposure control, adjustment of mA and/or kV according to patient size. COMPARISON: [facility], CT, CT CERVICAL SPINE WO CON, 10/05/2022, 9:48. FINDINGS: Image quality: Diagnostic Bones: Overall mild degenerative changes. No traumatic subluxation. No acute vertebral body height loss. Soft tissues: No apical pneumothorax. No prevertebral soft tissue swelling. Left thyroid nodule again seen, consider correlation with ultrasound if not already obtained. IMPRESSION: No displaced fracture or traumatic subluxation. If there is high concern for further derangement, consider MRI evaluation. Mild degenerative changes Dictated by: Miguel Enriquez M.D. on 11/01/2023 at 20:22 Approved by: Miguel Enriquez M.D. on 11/01/2023 at 20:23
[2023-11-01 19:19] VITALS: BP 147/70; PULSE 67; RESP 18; TEMP 36.7; O2SAT 98; BMI 32.1
[2023-11-01 21:00] VITALS: BP 179/77
[2023-11-01 21:09] VITALS: BP 167/74; PULSE 67; O2SAT 99
[2023-11-01 21:11] VITALS: BP 167/74; PULSE 65; O2SAT 98
--- NOTE | 2023-11-01 21:17 | PC.NURSE ---
C spine CT delayed results: Via [facility] in DI spoke w/ Dr. Bangura who told me report was negative. Report is not available. Dr. Martínez aware.
--- NOTE | 2023-11-01 21:26 | ED.GENADULT ---
HPI - General Adult General Chief complaint: Trauma Stated complaint: fall, cut on forehead, pain behind rt eye Time Seen by Provider: 11/01/23 21:00 Source: patient and family Mode of arrival: Ambulatory Limitations: no limitations History of Present Illness HPI narrative: Patient is an 78-year-old male he was on Xarelto who is here for evaluation of a fall. He states he was working in his garage. He uses a chair/sling to help him get around the garage so he does not have to stand and he states that it broke and he fell forward hitting his head. He did break his glasses. No loss of consciousness. Sustained a cut to his right forehead. No dental pain. No neck pain. No other injuries from the event. He does need an update tetanus. Related Data Home Medications Medication Instructions Recorded Confirmed atorvastatin 10 mg tablet 10 mg PO QAM 02/05/18 05/06/23 gabapentin 300 mg capsule 600 mg PO BEDTIME 02/05/18 05/06/23 fluoxetine 20 mg capsule 20 mg PO DAILY 09/02/18 05/06/23 vit C 250 mg-vit E 90 mg-zinc 40 1 tab PO BID 06/15/22 05/06/23 mg-copper 1 [id number] capsule (PreserVision AREDS-2) metoprolol succinate 50 mg 50 mg PO QAM 07/09/22 05/06/23 tablet,extended release 24 hr cholecalciferol (vitamin D3) 1,000 unit PO QAM 12/23/22 05/06/23 coenzyme Q10 [Ultra CoQ10] PO 12/23/22 05/06/23 cyanocobalamin (vitamin B-12) PO 12/23/22 05/06/23 amlodipine 10 mg tablet 10 mg PO DAILY 04/17/23 05/06/23 bupropion HCl 300 mg 24 hr tablet, 300 mg PO QAM 04/17/23 05/06/23 extended release folic acid 1 mg tablet 1 mg PO DAILY 04/17/23 05/06/23 methotrexate sodium 2.5 mg tablet 7.5 mg SEEINSTR 04/17/23 05/06/23 testosterone cypionate 200 mg/mL 600 mg IM SEEINSTR 04/17/23 05/06/23 intramuscular kit Previous Rx's Medication Instructions Recorded rivaroxaban 20 mg tablet (Xarelto) 20 mg PO QPM #30 tabs 06/19/22 tamsulosin 0.4 mg capsule (Flomax) 0.8 mg (2 x 0.4 mg) PO BEDTIME 08/18/23 #180 caps Allergies Allergy/AdvReac Type Severity Reaction Status Date / Time No Known Drug Allergies Allergy Verified 05/06/23 11:14 Review of Systems Review of Systems Narrative: See HPI Patient History Medical History History of urinary retention Post-void dribbling Incomplete emptying of bladder Chronic anticoagulation Benign prostatic hyperplasia Lower urinary tract symptoms Male circumcision Hearing impaired Cyst in hand (~2019) Nephrolithiasis Syncope Ischemia Chronic low back pain Prediabetes History of colon polyps Diverticulosis Osteoarthritis Anxiety Sinus congestion Atrophic gastritis Dizziness Psoriatic arthropathy RLS (restless legs syndrome) Erectile dysfunction Testosterone deficiency Vitamin D deficiency Depression Insomnia Hydronephrosis Alcoholism Retroperitoneal mass Paroxysmal atrial flutter Paroxysmal atrial fibrillation Hyperlipidemia HTN (hypertension) YAIMA on CPAP Psoriatic arthritis Psoriasis Surgical History Hx of bilateral cataract extraction Hx of tonsillectomy History of ear, nose, and throat (ENT) surgery Hx of hernia repair History of surgery (05/20/22) 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 Mother Cancer Diabetes mellitus Brother No problems noted. Sister No problems noted. Social History marital status: number of children: 3 household members: spouse Smoking Status: Never smoker alcohol intake: current Smoking Status: Never smoker alcohol intake frequency: 0-2 drinks per day Alcohol type: wine Substance Use Type: does not use Exam Initial Vital Signs Initial Vital Signs: Vital Signs Temperature 98.1 F 11/01/23 19:19 Pulse Rate 67 11/01/23 19:19 Respiratory Rate 18 11/01/23 19:19 Blood Pressure 147/70 H 11/01/23 19:19 Pulse Oximetry 98 11/01/23 19:19 Oxygen Delivery Method Room Air 11/01/23 19:19 HENLA Head: laceration (2 cm superficial laceration right forehead) Eyes EOM: EOM intact bilaterally Other: Contusion above right Skin Other: 2 cm laceration right forehead Neuro General: patient alert, patient awake and moves all extremities Extrem Other: No gross deformities, moves all 4 extremities equally Procedures Laceration Repair Laceration 1: Site: face (Forehead) Side (If applicable): right Size (cm): 2 Description: linear Depth: simple, single layer Pre-repair: irrigated extensively Skin layer closed with: dermabond Course Orders Ordered: ED Orders 11/01/23 19:17 CT cervical spine wo con Stat CT head/brain wo con Stat Discontinued Medications Diphtheria/Tetanus/Acell Pertussis (Tet,Diph,Pertuss(Acell),Vac/Pf 0.5 Ml Syringe) 0.5 ml IM .ONCE ONE Stop: 11/01/23 21:53 Last Admin: 11/01/23 21:56 Dose: 0.5 ml Documented By: BS Vital Signs Vital signs: Vital Signs - 8 hr 11/01/23 19:19 11/01/23 21:00 11/01/23 21:09 Temperature 98.1 F Pulse Rate 67 67 Respiratory Rate 18 Blood Pressure 147/70 H 179/77 H 167/74 H Pulse Oximetry 98 99 Oxygen Delivery Method Room Air Room Air 11/01/23 21:11 11/01/23 21:11 11/01/23 21:30 Temperature Pulse Rate 65 63 Respiratory Rate Blood Pressure 167/74 H Pulse Oximetry 98 99 Oxygen Delivery Method 11/01/23 21:31 11/01/23 21:31 Temperature Pulse Rate 63 Respiratory Rate Blood Pressure 151/76 H Pulse Oximetry 99 Oxygen Delivery Method Room Air Medical Decision Making Imaging Data CT scan - head: Radiologist's Impression: PROCEDURE: CT HEAD/BRAIN WO CON INDICATIONS: fall on thinners + head trauma TECHNIQUE: Noncontrast 4.5 mm thick angled axial sections acquired from the foramen magnum to the vertex, with coronal and sagittal reformats. For radiation dose reduction, the following was used: automated exposure control, adjustment of mA and/or kV according to patient size. COMPARISON: [facility], CT, CT HEAD/BRAIN WO CON, 10/05/2022, 9:48. FINDINGS: Image quality: Diagnostic CSF spaces: Basal cisterns are patent. Lateral ventricles are symmetric. Volume: Vascular calcifications. Periventricular white matter disease is commonly seen with chronic microangiopathy. Volume loss is present. These findings are moderate Brain: No intracranial hemorrhage. Pal-white differentiation is grossly maintained. Craniofacial structures: Intact partially visualized craniofacial structures. Right frontal contusion. Partially empty sella. IMPRESSION: No acute intracranial pathology. Possible right frontal soft tissue contusion CT - cervical spine: Radiologist's Impression: No displaced fracture or traumatic subluxation. If there is high concern for further derangement consider MRI evaluation. Mild degenerative changes MDM Narrative Medical decision making narrative: Imaging studies showed no acute pathology. The laceration of the right forehead was closed with Dermabond and Steri-Strips as described above. Does have a contusion above his right eye. No dental pain. No other injuries from the event reported by the patient or found on exam. Neurologically intact. Discharge patient home with care instructions and return precautions. He expressed understanding and agreement with plan. Discharge Plan Departure Patient Disposition: Home Clinical Impression: Forehead laceration, Contusion of eye, right Instructions: DI for Laceration Repair-Skin Glue Activity Restrictions/Additional Instructions: You can shower like normal. You can eat and sleep like normal. Your tetanus shot was updated today. Contact your primary provider for a follow-up. Return to the emergency department for new symptoms. Prescriptions: No Action tamsulosin [Flomax] 0.4 mg capsule 0.8 mg PO BEDTIME MDD 0.8mg Qty: 180 1RF Rx Instructions: Take two 0.4mg capsules by mouth daily at bedtime for a total of 0.8mg PreserVision AREDS-2 250-90-40-1 mg Capsule 1 tab PO BID Xarelto 20 mg tablet 20 mg PO QPM Qty: 30 0RF methotrexate sodium 2.5 mg Tablet 7.5 mg SEEINSTR Rx Instructions: 3 pills every wednesday am and 3 pills every wednesday am amlodipine 10 mg Tablet 10 mg PO DAILY folic acid 1 mg Tablet 1 mg PO DAILY bupropion HCl 300 mg Tablet Extended Release 24 Hr 300 mg PO QAM testosterone cypionate 200 mg/mL Kit 600 mg IM SEEINSTR Rx Instructions: Injection once every 10 days - 3mL atorvastatin 10 mg tablet 10 mg PO QAM gabapentin 300 mg capsule 600 mg PO BEDTIME metoprolol succinate 50 mg tablet extended release 24 hr 50 mg PO QAM Patient Comments: TK 1 T PO QD fluoxetine 20 mg Capsule 20 mg PO DAILY cyanocobalamin (vitamin B-12) PO cholecalciferol (vitamin D3) 1,000 unit PO QAM coenzyme Q10 [Ultra CoQ10] PO Referrals: Senthil Sandoval MD [Primary Care Provider] - Stand Alone Forms: Patient Portal/API
[2023-11-01 21:30] VITALS: PULSE 63; O2SAT 99
[2023-11-01 21:31] VITALS: BP 151/76; PULSE 63; O2SAT 99
[2023-11-01] MEDS: TET,DIPH,PERTUSS(ACELL),VAC/PF 0.5 ML SYRINGE IM (21:56)
== END 2023-11-01 22:05 | disposition home or self-care (01) ==
PROVIDERS: Emergency Provider Emergency Medicine; PCP Internal Medicine
DX: S01.81XA Laceration without foreign body of other part of head, initial encounter (principal); S00.11XA Contusion of right eyelid and periocular area, initial encounter; W18.30XA Fall on same level, unspecified, initial encounter; Z79.899 Other long term (current) drug therapy; Z23 Encounter for immunization
CPT/HCPCS: 12011; 36415; 70450; 72125; 90471; 99284; 90715

== ENCOUNTER 2024-06-19 14:19 | Emergency (ER) | payer MEDICARE, OTHER, SELFPAY ==
[2023-04-16 09:33] VITALS: BMI 32.8
[2024-06-19] VITALS (14 sets, daily range): BP systolic 105–162; BP diastolic 55–70; PULSE 55–70; RESP 14–17; TEMP 36.1; O2SAT 95–100; BMI 32.1
[2024-06-19 14:51] LABS: Add Manual Diff / Slide Review NO; Basophils Absolute Auto 100 /uL (0-100); Basophils Percent Auto 1.2 % (0-2); Eosinophils Absolute Auto 200 /uL (0-450); Eosinophils Percent Auto 3.7 % (2-4); Hematocrit 35.7 % (41-53); Hemoglobin 11.5 g/dL (13.5-17.5); Lymphocytes Absolute Auto 1000 /uL (1100-4500); Lymphocytes Percent Auto 17.5 % (25-40); Mean Corpuscular HGB Conc 32.1 % (30-36); Mean Corpuscular Hemoglobin 29.6 PG (26-34); Mean Corpuscular Volume 92.3 fL (80-100); Monocytes Absolute Auto 500 /uL (0-900); Monocytes Percent Auto 9.4 % (3-14); Neutrophils Absolute Auto 3900 /uL (1500-7000); Neutrophils Percent Auto 68.2 % (50-75); Platelet Count 234 X10^3/uL (150-400); Red Blood Cell Count 3.87 X10^6/uL (4.5-5.9); Red Cell Distribution Width 19.4 % (11.6-14.8); White Blood Cell Count 5.7 X10^3/uL (4.5-11.0)
[2024-06-19 14:59] LABS: Alanine Aminotransferase 24 IU/L (<50); Albumin Globulin Ratio 1.4 (1.0-2.8); Alkaline Phosphatase 71 U/L (38-126); Aspartate Aminotransferase 40 IU/L (17-59); BUN Creatinine Ratio 31.5 (6-22); Bilirubin Total 0.9 mg/dL (0.2-1.3); Blood Urea Nitrogen 28 mg/dL (9-20); Calcium 8.8 mg/dL (8.4-10.2); Carbon Dioxide 27 mmol/L (22-32); Chloride 107 mmol/L (98-107); Estimated Glomerular Filt Rate > 60 mL/min (>60); Globulin 2.8 g/dL (1.7-4.1); Glucose 152 mg/dL (80-110); HEMOLYSIS 26 (0-50); Lipase 46 U/L (23-300); Potassium 4.3 mmol/L (3.4-5.1); Sodium 138 mmol/L (137-145); Total Protein 6.8 g/dL (6.3-8.2)
[2024-06-19 16:24] LABS: Bacteria Urine Moderate (10-30); RBC Urine 1-5/HPF (0-5/HPF); Squamous Epithelial Cell Urine 5-10 /HPF (0-5/HPF); Urine Volume 10mL (spun); WBC Urine 5-10/HPF (0-5/HPF)
[2024-06-19 16:25] LABS: Culture Indicated Urine Specimen Cultured; Mucus Urine 1+ (Negative)
--- NOTE | 2024-06-19 16:50 | ED_ITS ---
HPI - Abdominal Pain General Chief Complaint: Abdominal Pain Stated Complaint: Belly button Hernia pain Time Seen by Provider: 06/19/24 16:50 Source: patient Mode of arrival: Ambulatory History of Present Illness HPI narrative: Patient is a 79-year-old male history of atrial fibrillation on Xarelto known ventral hernia presenting today with abdominal pain. He reports that he woke up from his nap in his having abdominal pain his hernia was out. Hernia frequently goes out easily pushed back in but it is never really tender. Today it is tender. He had a bowel movement while waiting in the emergency department no nausea no vomiting no fever no chills no chest pain or any other symptoms. Related Data Home Medications Medication Instructions Recorded Confirmed atorvastatin 10 mg tablet 10 mg PO QAM 02/05/18 06/16/24 gabapentin 300 mg capsule 600 mg PO BEDTIME 02/05/18 06/16/24 fluoxetine 20 mg capsule 20 mg PO DAILY 09/02/18 06/16/24 vit C 250 mg-vit E 90 mg-zinc 40 1 tab PO BID 06/15/22 06/16/24 mg-copper 1 [id number] capsule (PreserVision AREDS-2) metoprolol succinate 50 mg 50 mg PO QAM 07/09/22 06/16/24 tablet,extended release 24 hr cholecalciferol (vitamin D3) 1,000 unit PO QAM 12/23/22 06/16/24 coenzyme Q10 [Ultra CoQ10] PO 12/23/22 06/16/24 cyanocobalamin (vitamin B-12) PO 12/23/22 06/16/24 amlodipine 10 mg tablet 10 mg PO DAILY 04/17/23 06/16/24 bupropion HCl 300 mg 24 hr tablet, 300 mg PO QAM 04/17/23 06/16/24 extended release folic acid 1 mg tablet 1 mg PO DAILY 04/17/23 06/16/24 methotrexate sodium 2.5 mg tablet 7.5 mg SEEINSTR 04/17/23 06/16/24 Previous Rx's Medication Instructions Recorded rivaroxaban 20 mg tablet (Xarelto) 20 mg PO QPM #30 tabs 06/19/22 tamsulosin 0.4 mg capsule 0.8 mg (2 x 0.4 mg) PO ONCE PM 05/29/24 #180 caps tadalafil 5 mg tablet (Cialis) 5 mg PO DAILY #30 tabs 06/16/24 Allergies Allergy/AdvReac Type Severity Reaction Status Date / Time No Known Drug Allergies Allergy Verified 06/19/24 14:26 Patient History Medical History (Updated 06/19/24 @ 19:19 by Nidia Suh DO) BPH w urinary obs/LUTS Nocturia History of urinary retention Post-void dribbling Incomplete emptying of bladder Chronic anticoagulation Benign prostatic hyperplasia Lower urinary tract symptoms Male circumcision Hearing impaired Cyst in hand (~2019) Nephrolithiasis Syncope Ischemia Chronic low back pain Prediabetes History of colon polyps Diverticulosis Osteoarthritis Anxiety Sinus congestion Atrophic gastritis Dizziness Psoriatic arthropathy RLS (restless legs syndrome) Erectile dysfunction Testosterone deficiency Vitamin D deficiency Depression Insomnia Hydronephrosis Alcoholism Retroperitoneal mass Paroxysmal atrial flutter Paroxysmal atrial fibrillation Hyperlipidemia HTN (hypertension) YAIMA on CPAP Psoriatic arthritis Psoriasis Surgical History Hx of bilateral cataract extraction Hx of tonsillectomy History of ear, nose, and throat (ENT) surgery Hx of hernia repair History of surgery (05/20/22) 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 Mother Cancer Diabetes mellitus Brother No problems noted. Sister No problems noted. Social History marital status: number of children: 3 household members: spouse Smoking Status: Never smoker alcohol intake: current Smoking Status: Never smoker alcohol intake frequency: 0-2 drinks per day Alcohol type: wine Exam Initial Vital Signs Initial Vital Signs: Vital Signs Temperature 97.0 F L 06/19/24 14:26 Pulse Rate 70 06/19/24 14:26 Respiratory Rate 17 06/19/24 14:26 Blood Pressure 105/55 L 06/19/24 14:26 Pulse Oximetry 100 06/19/24 14:26 Oxygen Delivery Method Room Air 06/19/24 14:26 GENERAL: Alert pleasant 79-year-old male and in no acute distress. HEENT: Head atraumatic,EOMI, pupils reactive, face symmetric, moist mucous membranes CARDIOVASCULAR: Regular rate and rhythm without murmurs, rubs or gallops. RESPIRATORY: Breath sounds equal bilaterally, no wheezes rales or rhonchi. ABDOMEN: Soft, defect in abdominal wall is felt hernia was easily reduced. Patient is still having significant pain all around. EXTREMITIES: Normal range of motion, no clubbing or edema. Neurovascularly intact NEUROLOGICAL: Alert and oriented x4.Normal gait and speech. Cranial nerves II through XII grossly intact. SKIN: Warm, dry, no laceration, no petechiae, no rashes or lesions. Course Orders Ordered: ED Orders 06/19/24 14:37 Complete Blood Count AUTO DIFF Stat Comprehensive Metabolic Panel Stat Lipase Stat 06/19/24 15:48 Urine Culture Stat Urine Microscopic Stat 06/19/24 17:04 CT abdomen pelvis w con Stat Ondansetron HCl (Ondansetron 4 Mg/2 Ml Inj) 4 mg IV NOW PRN PRN Reason: Nausea And Vomiting Ondansetron HCl (Ondansetron 4 Mg Odt) 4 mg PO NOW PRN PRN Reason: Nausea And Vomiting Vital Signs Vital signs: Vital Signs - 8 hr 06/19/24 14:26 06/19/24 16:12 06/19/24 16:13 Temperature 97.0 F L Pulse Rate 70 60 Respiratory Rate 17 16 Blood Pressure 105/55 L 135/65 Pulse Oximetry 100 100 Oxygen Delivery Method Room Air Room Air 06/19/24 16:18 06/19/24 16:30 06/19/24 17:23 Temperature Pulse Rate 59 L 59 L Respiratory Rate Blood Pressure 147/69 H Pulse Oximetry 100 98 Oxygen Delivery Method 06/19/24 17:24 06/19/24 17:24 06/19/24 17:30 Temperature Pulse Rate 59 L Respiratory Rate Blood Pressure 151/70 H 138/65 Pulse Oximetry 99 Oxygen Delivery Method 06/19/24 17:30 06/19/24 18:00 06/19/24 18:00 Temperature Pulse Rate 56 L 55 L Respiratory Rate Blood Pressure 140/67 Pulse Oximetry 99 95 Oxygen Delivery Method Room Air 06/19/24 18:26 06/19/24 18:26 06/19/24 18:30 Temperature Pulse Rate 63 56 L Respiratory Rate Blood Pressure 162/67 H Pulse Oximetry 100 99 Oxygen Delivery Method Room Air 06/19/24 18:30 Temperature Pulse Rate Respiratory Rate Blood Pressure 143/66 H Pulse Oximetry Oxygen Delivery Method MDM - Abdominal Pain Lab Data 06/19/24 14:37 06/19/24 14:37 Labs: Lab Results 06/19/24 06/19/24 Range/Units 14:37 15:48 WBC 5.7 (4.5-11.0) X10^3/uL RBC 3.87 L (4.5-5.9) X10^6/uL Hgb 11.5 L (13.5-17.5) g/dL Hct 35.7 L (41-53) % MCV 92.3 (80-100) fL MCH 29.6 (26-34) PG MCHC 32.1 (30-36) % RDW 19.4 H (11.6-14.8) % Plt Count 234 (150-400) X10^3/uL Neut % (Auto) 68.2 (50-75) % Lymph % (Auto) 17.5 L (25-40) % [place] % (Auto) 9.4 (3-14) % Eos % (Auto) 3.7 (2-4) % Baso % (Auto) 1.2 (0-2) % Neut # (Auto) 3900 (4620-6756) /uL Lymph # (Auto) 1000 L (1476-4767) /uL [place]geman # (Auto) 500 (0-900) /uL Eos # (Auto) 200 (0-450) /uL Baso # (Auto) 100 (0-100) /uL Sodium 138 (137-145) mmol/L Potassium 4.3 (3.4-5.1) mmol/L Chloride 107 (98-107) mmol/L Carbon Dioxide 27 (22-32) mmol/L BUN 28 H (9-20) mg/dL Creatinine 0.89 (0.66-1.25) mg/dL Estimated GFR > 60 (>60) mL/min BUN/Creatinine Ratio 31.5 H (6-22) Glucose 152 H (80-110) mg/dL Calcium 8.8 (8.4-10.2) mg/dL Total Bilirubin 0.9 (0.2-1.3) mg/dL AST 40 (17-59) IU/L ALT 24 (<50) IU/L Alkaline Phosphatase 71 (38-126) U/L Total Protein 6.8 (6.3-8.2) g/dL Albumin 4.0 (3.5-5.0) g/dL Globulin 2.8 (1.7-4.1) g/dL Albumin/Globulin Ratio 1.4 (1.0-2.8) Lipase 46 (23-300) U/L Urine RBC 1-5/hpf (0-5/HPF) Urine WBC 5-10/hpf H (0-5/HPF) Ur Squamous Epith Cells 5-10 /hpf H (0-5/HPF) Urine Bacteria Moderate (10-30) H (None) Urine Mucus 1+ H (Negative) Ur Culture Indicated? Specimen cultured Vol Urine Centrifuged 10ml (spun) Point of care testing: Urine Dip Bedside Urine Glucose Negative Bedside Urine Bilirubin - Negative Bedside Urine Ketone +/- 5 Urine Specific [place] 1.030 Bedside Urine Occult Blood - Negative Bedside Urine pH 5.5 Bedside Urine Protein + 30 Bedside Urine Urobilinogen - Negative Bedside Urine Nitrite - Negative Bedside Urine Leukocytes +/- [address] scan - abdomen/pelvis: Radiologist's Impression: PROCEDURE: CT ABDOMEN PELVIS W [facility] INDICATIONS: periumbilical pain, known hernia TECHNIQUE: After the administration of intravenous contrast, axial sections acquired from the lung bases to the pubic symphysis. Coronal and sagittal reformats were performed. For radiation dose reduction, the following was used: automated exposure control, adjustment of mA and/or kV according to patient size. COMPARISON: [facility], CT, CT CHEST ABD PEL W [facility], 10/05/2022, 9:48. [facility], CT, CT ABDOMEN PELVIS W CON, 04/16/2023, 5:48. FINDINGS: Image quality: Diagnostic. Lower Chest: Coronary artery calcifications. Aortic valvular calcifications. ABDOMEN: Liver: No solid mass. Concern for cirrhosis. The liver surface appears nodular. There is recannulization of the periumbilical vein. The caudate lobe is hypertrophied. Gallbladder: Absent. Biliary ducts: No biliary dilation. Pancreas: No ductal dilation. Atrophic. Spleen: Size is within normal limits. Small splenule. Adrenal Glands: No adrenal nodules. Kidneys and Ureters: No hydronephrosis. Small nonobstructing kidney stones bilaterally. No solid mass. No complex renal cystic lesion which requires follow up. Stomach and Bowel: Stomach is not distended. Small duodenal lipoma. No small bowel obstruction. Normal appendix. No diverticulitis. Peritoneum: No abnormal intraperitoneal fluid. No free air. Ventral Wall: Fat containing umbilical hernia. There is small bowel near the neck of the hernia. The hernia neck measures 3.5 cm, (2/92). The fat within the hernia sac is increased compared to April 2023. No fluid collection. Abdominal Nodes: No retroperitoneal or mesenteric adenopathy by size criteria. Cyst posterior to the IVC measuring 9.1 x 3.9 cm, (2/47). Measures 7 cm in the craniocaudal dimension, (3/82). Not felt to be significantly changed. There is a small focus of increased density within the cyst. Small peritoneal nodule or area of thickening inferior to the liver, (2/57), unchanged since at least 2022. Vessels: Aorta and inferior vena cava are normal in size. PELVIS: Pelvic Organs: Prostatomegaly. Bladder: No bladder wall thickening, accounting for underdistention. No stone. Pelvic Nodes: No enlarged lymph nodes. Miscellaneous: No inguinal hernias are seen. Bones: No aggressive osseous abnormality. IMPRESSION: 1. Fat containing supraumbilical hernia is increased in size. No fluid collection. 2. No bowel obstruction. No free fluid. 3. Cyst posterior to the IVC measuring 9.1 cm is not significantly changed. This could represent a lymphocele. 4. Concern for cirrhosis. Probable small nonobstructing kidney stones. Prostatomegaly. Dictated by: Armando Dailey M.D. on 06/19/2024 at 18:55 MDM Narrative Medical decision making narrative: MDM CC: Abdominal Complicating co-morbidities: Known ventral hernia atrial fibrillation on Xarelto Medical records reviewed: Previous ED visits Differential considered: Incarcerated hernia pancreatitis obstruction Exam documented above, pertinent findings include: Well-appearing 79-year-old male abdomen is soft a defect in abdominal wall is noted. He did have a hernia was easily reduced. However after reduction patient is still quite tender. Lab Test results independently reviewed as above. Pertinent findings: WBC 5.7 hemoglobin 11.5 hematocrit 35.7 platelets 230 Sodium 138 potassium 4.3 chloride 107 carbon dioxide 27 BUN 28 creatinine 0.89 Bilirubin 0.9 AST 40 ALT 24 alk-phos 71 Independently reviewed EKG as above Imaging studies independently reviewed: CT does show fat containing umbilical hernia which has increased in size bowel obstruction Treatments: Offered something for pain but declined Re-evaluations: Patient's abdomen remained soft he has reading a book. Discussion: 79-year-old male presenting today with periumbilical hernia pain. I felt the abdominal wall defect hernia was easily reduced however he is feels like he still quite tender in his not normally tender. It has always been reducible. He says that he has been evaluated by surgery at [facility] in his not a surgical candidate. CT does show an increased fat containing supra umbilical hernia. Abdomen is soft nontender. At this time no surgical emergency. I do recommend he follow- up with surgery at time Discharge Plan Departure Patient Disposition: Home Clinical Impression: Periumbilical hernia Instructions: Abdominal Hernia Activity Restrictions/Additional Instructions: *You have been diagnosed with fat containing supraumbilical hernia *What to do: At this time you do have a fat containing hernia. Maybe worthwhile to have surgery re-consultation. No need for emergent surgery at this time. *Continue to take medications as directed Tylenol as needed for pain *Follow up with your primary care provider in 2-3 days or call [phone] [facility] call for outpatient follow-up *Return to ER if you should have increasing pain nausea vomiting or any new, worsening or concerning symptoms Prescriptions: No Action tamsulosin 0.4 mg capsule 0.8 mg PO ONCE PM Qty: 180 3RF PreserVision AREDS-2 250-90-40-1 mg Capsule 1 tab PO BID Xarelto 20 mg tablet 20 mg PO QPM Qty: 30 0RF methotrexate sodium 2.5 mg Tablet 7.5 mg SEEINSTR Rx Instructions: 3 pills every wednesday am and 3 pills every wednesday am amlodipine 10 mg Tablet 10 mg PO DAILY folic acid 1 mg Tablet 1 mg PO DAILY bupropion HCl 300 mg Tablet Extended Release 24 Hr 300 mg PO QAM atorvastatin 10 mg tablet 10 mg PO QAM gabapentin 300 mg capsule 600 mg PO BEDTIME metoprolol succinate 50 mg tablet extended release 24 hr 50 mg PO QAM Patient Comments: TK 1 T PO QD fluoxetine 20 mg Capsule 20 mg PO DAILY cyanocobalamin (vitamin B-12) PO cholecalciferol (vitamin D3) 1,000 unit PO QAM coenzyme Q10 [Ultra CoQ10] PO tadalafil [Cialis] 5 mg tablet 5 mg PO DAILY Qty: 30 12RF Referrals: [facility] [Provider Group] Senthil Sandoval MD [Primary Care Provider] - Stand Alone Forms: Patient Portal/API/Survey
--- NOTE | 2024-06-19 17:04 | DI.CT.S_ITS ---
PROCEDURE: CT ABDOMEN PELVIS W CON INDICATIONS: periumbilical pain, known hernia TECHNIQUE: After the administration of intravenous contrast, axial sections acquired from the lung bases to the pubic symphysis. Coronal and sagittal reformats were performed. For radiation dose reduction, the following was used: automated exposure control, adjustment of mA and/or kV according to patient size. COMPARISON: [facility], CT, CT CHEST ABD PEL W CON, 10/05/2022, 9:48. [facility], CT, CT ABDOMEN PELVIS W CON, 04/16/2023, 5:48. FINDINGS: Image quality: Diagnostic. Lower Chest: Coronary artery calcifications. Aortic valvular calcifications. ABDOMEN: Liver: No solid mass. Concern for cirrhosis. The liver surface appears nodular. There is recannulization of the periumbilical vein. The caudate lobe is hypertrophied. Gallbladder: Absent. Biliary ducts: No biliary dilation. Pancreas: No ductal dilation. Atrophic. Spleen: Size is within normal limits. Small splenule. Adrenal Glands: No adrenal nodules. Kidneys and Ureters: No hydronephrosis. Small nonobstructing kidney stones bilaterally. No solid mass. No complex renal cystic lesion which requires follow up. Stomach and Bowel: Stomach is not distended. Small duodenal lipoma. No small bowel obstruction. Normal appendix. No diverticulitis. Peritoneum: No abnormal intraperitoneal fluid. No free air. Ventral Wall: Fat containing umbilical hernia. There is small bowel near the neck of the hernia. The hernia neck measures 3.5 cm, (2). The fat within the hernia sac is increased compared to April 2023. No fluid collection. Abdominal Nodes: No retroperitoneal or mesenteric adenopathy by size criteria. Cyst posterior to the IVC measuring 9.1 x 3.9 cm, (2/47). Measures 7 cm in the craniocaudal dimension, (3/82). Not felt to be significantly changed. There is a small focus of increased density within the cyst. Small peritoneal nodule or area of thickening inferior to the liver, (2/57), unchanged since at least 2022. Vessels: Aorta and inferior vena cava are normal in size. PELVIS: Pelvic Organs: Prostatomegaly. Bladder: No bladder wall thickening, accounting for underdistention. No stone. Pelvic Nodes: No enlarged lymph nodes. Miscellaneous: No inguinal hernias are seen. Bones: No aggressive osseous abnormality. IMPRESSION: 1. Fat containing supraumbilical hernia is increased in size. No fluid collection. 2. No bowel obstruction. No free fluid. 3. Cyst posterior to the IVC measuring 9.1 cm is not significantly changed. This could represent a lymphocele. 4. Concern for cirrhosis. Probable small nonobstructing kidney stones. Prostatomegaly. Dictated by: Armando Dailey M.D. on 06/19/2024 at 18:55 Approved by: Armanod Dailey M.D. on 06/19/2024 at 19:07
== END 2024-06-19 19:33 | disposition home or self-care (01) ==
PROVIDERS: Emergency Provider Emergency Medicine; PCP Internal Medicine
DX: K42.9 Umbilical hernia without obstruction or gangrene (principal); R79.89 Other specified abnormal findings of blood chemistry
CPT/HCPCS: 36415; 74177; 80053; 81003; 81015; 83690; 85025; 87086; 99284; Q9967